=== PATIENT | female | born 1965 | race Hispanic/Latino ===

== ENCOUNTER 2018-03-22 18:39 | Emergency (ER) | payer OTHER ==
[2018-03-22 19:11] LABS: Absolute Monocytes 0.4 K/uL (0.1-1.3); Basophils % 1.1 % (0-1.3); Eosinophils % 3.3 % (0-4.4); Hematocrit 34.3 % (36.0-45.0); Lymphocytes % 35.6 % (15.3-44.8); MCH 21.7 pg (27.0-35.0); MCV 72.2 fL (80-100); MPV 8.4 fL (7.6-11.3); Monocytes % 7.5 % (3.3-12.3); RBC Red Blood Cell Count 4.75 M/uL (3.86-4.86)
[2018-03-22 19:21] LABS: BUN Blood Urea Nitrogen 13 mg/dL (7-18); Bicarbonate 27 mmol/L (21-32); Glucose Level 192 mg/dL (74-106); Potassium 3.7 mmol/L (3.5-5.1); Sodium Level 140 mmol/L (136-145)
[2018-03-22] MEDS ORDERED: ONDANSETRON 4 MG/2 ML VIAL ONE (19:23)
[2018-03-22] MEDS ORDERED: FENTANYL CITR 100 MCG/2 ML ONE (19:23)
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
[2018-03-22 20:46] VITALS: TEMP 98.8
[2018-03-22 20:48] VITALS: O2SAT 99
[2018-03-22 20:49] VITALS: BP 136/79
== END 2018-03-22 20:42 | disposition home or self-care (01) ==
LOC: ER 18:39
DX: S13.4XXA Sprain of ligaments of cervical spine, initial encounter (principal); V49.40XA Driver injured in collision with unspecified motor vehicles in traffic accident, initial encounter; F17.210 Nicotine dependence, cigarettes, uncomplicated; Z88.0 Allergy status to penicillin; I10 Essential (primary) hypertension
CPT/HCPCS: 36415; 70450; 71260; 72125; 74177; 80048; 85025; 86850; 86900; 86901; 96374; 96375; 99285; J2405; J3010; Q9967

== ENCOUNTER 2018-07-22 00:05 | Emergency (ER) | payer OTHER ==
--- NOTE | 2018-07-22 00:47 | ER ---
Nurse's Notes [facility] Name: Kmi Weldon Age: 53 yrs Sex: Female : 1965 Arrival Date: 07/22/2018 Time: 00:09 Bed 18 Private MD: Diagnosis: Asthma Presentation: 07/22 00:09 Presenting complaint: Patient states: SOB on/off for three days, BBS slightly coarse, tl3 mild wheezing to upper left lobe, upper airway congestion noted. Transition of care: patient was not received from another setting of care. Onset of symptoms was July 18, 2018. Risk Assessment: Do you want to hurt yourself or someone else? Patient reports no desire to harm self or others. Initial Sepsis Screen: Does the patient meet any 2 criteria? No. Patient's initial sepsis screen is negative. Does the patient have a suspected source of infection? No. Patient's initial sepsis screen is negative. Care prior to arrival: None. 00:09 Method Of Arrival: Ambulatory tl3 00:09 Acuity: ALFRED 3 tl3 Triage Assessment: 00:13 General: Appears uncomfortable, Behavior is anxious. Pain: Complains of pain in chest tl3 up into neck with breathing. 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 tl3 Historical: - Allergies: 00:13 PENICILLINS; tl3 - Home Meds: 00:13 Cymbalta 60 mg Oral cpDR 1 cap once daily [Active]; gabapentin 100 mg Oral cap 3 times tl3 per day [Active]; Jardiance 10 mg Oral tab 1 tab once daily [Active]; ProAir HFA 90 mcg/actuation inhalation HFAA 2 puffs every 4 hours [Active]; levothyroxine 25 mcg tab 1 tab once daily [Active]; metformin 1,000 mg oral tab [Active]; Seroquel 400 mg oral tab once daily [Active]; Victoza 2-Mulugeta 0.6 mg/0.1 mL (18 mg/3 mL) subcutaneous pnij 0.2 mL once daily [Active]; - PMHx: 00:13 Asthma; Bipolar disorder; CHF; Diabetes - IDDM; Fibromyalgia; Hypertension; tl3 Hypothyroidism; mitral valve prolapse; scoliosis; - PSHx: 00:13 ; tl3 - Immunization history:: Adult Immunizations up to date. - Social history:: Smoking status: Patient uses tobacco products, smokes one-half pack cigarettes per day. - Ebola Screening: : No symptoms or risks identified at this time. Screenin:22 Abuse screen: Denies threats or abuse. Denies injuries from another. Nutritional cc3 screening: No deficits noted. Tuberculosis screening: No symptoms or risk factors identified. Fall Risk Ambulatory Aid- None/Bed Rest/Nurse Assist (0 pts). Gait- Normal/Bed Rest/Wheelchair (0 pts) Mental Status- Oriented to own ability (0 pts). Assessment: 00:22 General: Appears in no apparent distress. comfortable, Behavior is calm, cooperative, cc3 appropriate for age. Pain: Complains of pain in chest and back pain. Neuro: Level of Consciousness is awake, alert, obeys commands, Oriented to person, place, time, situation, Appropriate for age. Cardiovascular: Reports chest pain, shortness of breath, back pain since yesterday Patient's skin is warm and dry. Respiratory: Reports shortness of breath since yesterday. GI: Abdomen is round non-distended. : No signs and/or symptoms were reported regarding the genitourinary system. EENT: No signs and/or symptoms were reported regarding the EENT system. Derm: No signs and/or symptoms reported regarding the dermatologic system. Musculoskeletal: Circulation, motion, and sensation intact. Range of motion: intact in all extremities. 01:30 Reassessment: Patient appears in no apparent distress at this time. Patient and/or cc3 family updated on plan of care and expected duration. Pain level reassessed. Patient is alert, oriented x 3, equal unlabored respirations, skin warm/dry/pink. 02:20 Reassessment: Patient appears in no apparent distress at this time. Patient and/or cc3 family updated on plan of care and expected duration. Pain level reassessed. Patient is alert, oriented x 3, equal unlabored respirations, skin warm/dry/pink. 03:24 Reassessment: Patient called after getting back from CT. Patient was hyperventilating ao and O2 was 84%. Patient was put on O2 NC at [address] protocol[address] Dr Gaspar was notified and was okay to give another breathing treatment. 04:12 Reassessment: Patient appears in no apparent distress at this time. Patient and/or cc3 family updated on plan of care and expected duration. Pain level reassessed. Patient is alert, oriented x 3, equal unlabored respirations, skin warm/dry/pink. 04:30 Reassessment: Patient appears in no apparent distress at this time. Patient and/or cc3 family updated on plan of care and expected duration. Pain level reassessed. Patient is alert, oriented x 3, equal unlabored respirations, skin warm/dry/pink. Dr. Gaspar discharged home the patient with prescription given. IV cannula removed and patient left ER vitally stable and ambulatory with her daughter. Vital Signs: 00:13 BP 164 / 125; Pulse 99; Resp 22; Temp 98.6; Pulse Ox 100% ; Weight 73.48 kg; Height 5 tl3 ft. 4 in. (162.56 cm); 01:30 BP 120 / 72; Pulse 89; Resp 21 S; Pulse Ox 95% on R/A; cc3 02:30 BP 124 / 97; Pulse 79; Resp 20 S; Pulse Ox 95% on R/A; cc3 03:30 BP 130 / 76; Pulse 85; Resp 25 S; Pulse Ox 91% on R/A; cc3 04:10 BP 131 / 77; Pulse 85; Resp 22 S; Pulse Ox 96% on 2 lpm NC; cc3 00:13 Body Mass Index 27.81 (73.48 kg, 162.56 cm) tl3 ED Course: 00:09 Patient arrived in ED. ag3 00:10 Triage completed. tl3 00:13 Arm band placed on right wrist. tl3 00:22 Karly Quinn is Primary Nurse. cc3 00:22 Patient has correct armband on for positive identification. Placed in gown. Bed in low cc3 position. Call light in reach. Side rails up X2. city administrator on. Pulse ox on. NIBP on. 00:37 Hunter Gaspar MD is Attending Physician. tw4 01:20 Inserted saline lock: 20 gauge in right antecubital area, using aseptic technique. cc3 Blood collected. 02:30 Notified ED physician of a critical lab result(s). d dimer 5358. fc 03:15 CT Chest For PE Angio In Process Unspecified. EDMS 03:53 CT completed. Pt tolerated procedure poorly. Patient moved to CT via wheelchair. cw1 Patient moved back from CT. 04:30 No provider procedures requiring assistance completed. IV discontinued, intact, cc3 bleeding controlled, No redness/swelling at site. Pressure dressing applied. Administered Medications: 02:05 Drug: Albuterol - atroVENT (3:1) (2.5 mg - 0.5 mg) 3 ml Route: Nebulizer; cc3 02:45 Follow up: Response: No adverse reaction; Marked relief of symptoms cc3 03:28 Drug: DuoNeb (3:1) (2.5 mg - 0.5 mg) 3 ml Route: Nebulizer; ao 04:10 Follow up: Response: No adverse reaction cc3 04:20 Drug: SOLU-Medrol 125 mg Route: IVP; Site: right antecubital; cc3 04:38 Follow up: Response: No adverse reaction cc3 Outcome: 00:46 Discharge ordered by MD. tw4 04:24 Discharge ordered by MD. tw4 04:30 Discharged to home ambulatory, with family. cc3 04:30 Condition: stable 04:30 Discharge instructions given to patient, Instructed on discharge instructions, follow up and referral plans. medication usage, Demonstrated understanding of instructions, follow-up care, medications, Prescriptions given X 3. 04:38 Patient left the ED. cc3 Signatures: Dispatcher [employer] EDMS Marine Becerril RN [place] cw1 Marino Gilbert, RN Hunter Rodarte MD MD tw4 Rhea Lehman RN RN tl3 Karly Quinn cc3 Nelly Mcclellan 3 Corrections: (The following items were deleted from the chart) 02:36 00:22 Pain: Denies pain. cc3 cc3 02:36 00:22 Cardiovascular: Denies chest pain, Patient's skin is warm and dry. cc3 cc3 02:36 00:22 Respiratory: Reports shortness of breath since today cc3 cc3 04:11 02:30 BP 124 / 97; Pulse 79bpm; Resp 20bpm; Spontaneous; Pulse Ox 98% RA; cc3 cc3 04:11 01:30 BP 120 / 72; Pulse 89bpm; Resp 21bpm; Spontaneous; Pulse Ox 97% RA; cc3 cc3
--- NOTE | 2018-07-22 00:47 | EDPHYS ---
Physician Documentation [facility] Name: Kim Weldon Age: 53 yrs Sex: Female : 1965 Arrival Date: 07/22/2018 Time: 00:09 Bed 18 Private MD: ED Physician Hunter Gaspar HPI: 07/22 04:23 This 53 yrs old Female presents to ER via Ambulatory with complaints of tw4 Respiratory Distress. 04:23 The patient has shortness of breath at rest. tw4 04:35 Onset: The symptoms/episode began/occurred just prior to arrival, today. Duration: The tw4 symptoms are continuous, and are unchanged since they started. The patient's shortness of breath has no apparent modifying factors. Associated signs and symptoms: The patient has no apparent associated signs or symptoms. Severity of symptoms: At their worst the symptoms were moderate in the emergency department the symptoms are unchanged. The patient has not experienced similar symptoms in the past. 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 tl3 Historical: - Allergies: 00:13 PENICILLINS; tl3 - Home Meds: 00:13 Cymbalta 60 mg Oral cpDR 1 cap once daily [Active]; gabapentin 100 mg Oral cap 3 times tl3 per day [Active]; Jardiance 10 mg Oral tab 1 tab once daily [Active]; ProAir HFA 90 mcg/actuation inhalation HFAA 2 puffs every 4 hours [Active]; levothyroxine 25 mcg tab 1 tab once daily [Active]; metformin 1,000 mg oral tab [Active]; Seroquel 400 mg oral tab once daily [Active]; Victoza 2-Mulugeta 0.6 mg/0.1 mL (18 mg/3 mL) subcutaneous pnij 0.2 mL once daily [Active]; - PMHx: 00:13 Asthma; Bipolar disorder; CHF; Diabetes - IDDM; Fibromyalgia; Hypertension; tl3 Hypothyroidism; mitral valve prolapse; scoliosis; - PSHx: 00:13 ; tl3 - Immunization history:: Adult Immunizations up to date. - Social history:: Smoking status: Patient uses tobacco products, smokes one-half pack cigarettes per day. - Ebola Screening: : No symptoms or risks identified at this time. ROS: 04:35 Constitutional: Negative for fever, chills, and weight loss, ENT: Negative for injury, tw4 pain, and discharge, Cardiovascular: Negative for chest pain, palpitations, and edema, Abdomen/GI: Negative for abdominal pain, nausea, vomiting, diarrhea, and constipation, Back: Negative for injury and pain, MS/Extremity: Negative for injury and deformity, Skin: Negative for injury, rash, and discoloration. 04:35 Respiratory: Positive for shortness of breath, wheezing, expiratory. Exam: 04:35 Constitutional: This is a well developed, well nourished patient who is awake, alert, tw4 and in no acute distress. Head/Face: Normocephalic, atraumatic. Chest/axilla: Normal chest wall appearance and motion. Nontender with no deformity. No lesions are appreciated. Cardiovascular: Regular rate and rhythm with a normal S1 and S2. No gallops, murmurs, or rubs. Normal PMI, no JVD. No pulse deficits. Abdomen/GI: Soft, non-tender, with normal bowel sounds. No distension or tympany. No guarding or rebound. No evidence of tenderness throughout. Back: No spinal tenderness. No costovertebral tenderness. Full range of motion. MS/ Extremity: Pulses equal, no cyanosis. Neurovascular intact. Full, normal range of motion. Neuro: Awake and alert, GCS 15, oriented to person, place, time, and situation. Cranial nerves II-XII grossly intact. Motor strength 5/5 in all extremities. Sensory grossly intact. Cerebellar exam normal. Normal gait. 04:35 Respiratory: the patient does not display signs of respiratory distress, Respirations: normal, Breath sounds: wheezing: that is mild, is scattered, is heard diffusely. Vital Signs: 00:13 BP 164 / 125; Pulse 99; Resp 22; Temp 98.6; Pulse Ox 100% ; Weight 73.48 kg; Height 5 tl3 ft. 4 in. (162.56 cm); 01:30 BP 120 / 72; Pulse 89; Resp 21 S; Pulse Ox 95% on R/A; cc3 02:30 BP 124 / 97; Pulse 79; Resp 20 S; Pulse Ox 95% on R/A; cc3 03:30 BP 130 / 76; Pulse 85; Resp 25 S; Pulse Ox 91% on R/A; cc3 04:10 BP 131 / 77; Pulse 85; Resp 22 S; Pulse Ox 96% on 2 lpm NC; cc3 00:13 Body Mass Index 27.81 (73.48 kg, 162.56 cm) tl3 MDM: 00:37 Patient medically screened. tw4 04:35 Differential diagnosis: Anemia Anxiety Reaction reactive airway disease. Data reviewed: vital signs, nurses notes. Data interpreted: cardiac monitor technician: rhythm is normal sinus rhythm, Pulse oximetry: Interpretation: normal. Test interpretation: by ED physician or midlevel provider: ECG, plain radiologic studies. Counseling: I had a detailed discussion with the patient and/or guardian regarding: the historical points, exam findings, and any diagnostic results supporting the discharge/admit diagnosis, lab results, radiology results. Medication response: albuterol nebulizer treatment(s) relieved the patient's symptoms. The patient is no longer wheezing. Response to treatment: the patient's symptoms have resolved after treatment, and as a result, I will discharge patient. Special discussion: I discussed with the patient/guardian in detail that at this point there is no indication for admission to the hospital. It is understood, however, that if the symptoms persist or worsen the patient needs to return immediately for re-evaluation. 07/22 01:39 Order name: Basic Metabolic Panel; Complete Time: 03:01 EDMS 07/22 03:03 Interpretation: Normal except: CL 109; GLUC 212; GFR 88; CA 8.3. 07/22 01:39 Order name: Liver (Hepatic) Function; Complete Time: 03:01 MS 07/22 03:03 Interpretation: Normal except: GLOB 4.1; A/G 0.9. 07/22 01:39 Order name: Creatine Phosphokinase; Complete Time: 03:01 MS 07/22 03:05 Interpretation: Within normal limits: CPK 41. 07/22 01:39 Order name: CKMB Creatine Kinase MB; Complete Time: 03:01 MS 07/22 03:05 Interpretation: Within normal limits: CKMB < 1.0. 07/22 01:39 Order name: Troponin (Emerg Dept Use Only); Complete Time: 03:01 MS 07/22 03:05 Interpretation: Within normal limits: TROPED < 0.02. 07/22 01:39 Order name: NT PRO-BNP; Complete Time: 03:01 MS 07/22 03:03 Interpretation: Normal except: NT PRO-BNP 326. tw4 07/22 01:39 Order name: Magnesium; Complete Time: 03:01 EDMS 07/22 03:04 Interpretation: Normal except: MG 1.7. tw4 07/22 01:39 Order name: Lipase; Complete Time: 03:01 EDMS 07/22 03:05 Interpretation: Within normal limits: LIP 206. 4 07/22 01:39 Order name: CBC with Automated Diff; Complete Time: 03:01 EDMS 07/22 03:04 Interpretation: Normal except: RBC 3.68; HGB 8.5; HCT 26.9; MCHC 31.6; MCH 23.1; MCV tw4 73.1; RDW 16.8. 07/22 01:39 Order name: Protime (+INR); Complete Time: 03:01 EDMS 07/22 03:05 Interpretation: Within normal limits: PT 11.2. 4 07/22 01:39 Order name: PTT, Activated Partial Thromb; Complete Time: 03:01 EDMS 07/22 03:04 Interpretation: Normal except: PTT 47.3. 4 07/22 01:39 Order name: D-Dimer; Complete Time: 03:01 EDMS 07/22 03:05 Interpretation: Normal except: D-DIMER 5358. tw4 07/22 01:39 Order name: Blood Culture EDAL 07/22 01:39 Order name: Blood Culture EDAL 07/22 02:31 Order name: CT Chest For PE Angio 07/22 03:01 Order name: Urine Dipstick--Ancillary (enter results) wi 07/22 03:01 Order name: Urine --Ancillary (enter results) wi 07/22 00:52 Order name: EKG; Complete Time: 01:44 4 07/22 00:52 Order name: Cardiac monitoring; Complete Time: 01:08 4 07/22 00:52 Order name: EKG - Nurse/Tech; Complete Time: 01:17 4 07/22 00:52 Order name: IV Saline Lock; Complete Time: 01:35 4 07/22 00:52 Order name: Labs collected and sent; Complete Time: 01:35 4 07/22 00:52 Order name: O2 Per Protocol; Complete Time: 01:09 4 07/22 00:52 Order name: O2 Sat Monitoring; Complete Time: 01:09 4 Administered Medications: 02:05 Drug: Albuterol - atroVENT (3:1) (2.5 mg - 0.5 mg) 3 ml Route: Nebulizer; cc3 02:45 Follow up: Response: No adverse reaction; Marked relief of symptoms cc3 03:28 Drug: DuoNeb (3:1) (2.5 mg - 0.5 mg) 3 ml Route: Nebulizer; ao 04:10 Follow up: Response: No adverse reaction cc3 04:20 Drug: SOLU-Medrol 125 mg Route: IVP; Site: right antecubital; cc3 04:38 Follow up: Response: No adverse reaction cc3 Disposition: 07/22/18 04:24 Discharged to Home. Impression: Asthma. - Condition is Stable. - Discharge Instructions: Asthma, Acute Bronchospasm, Form - Asthma Action Plan, Adult. - Prescriptions for Albuterol Sulfate 2.5 mg /3 mL (0.083 %) Inhalation Solution for Nebulization - inhale 1 unit by NEBULIZATION route every 8 hours As needed; 1 box. Medrol (Mulugeta) 4 mg Oral Tablets, Dose Pack - take 1 tablet by ORAL route as directed - follow package instructions; 1 packet. Albuterol Sulfate 90 mcg/actuation - inhale 1-2 puff by INHALATION route every 4-6 hours; 1 Inhaler. - Medication Reconciliation Form, Thank You Letter, Antibiotic Education, Prescription Opioid Use form. - Follow up: Private Physician; When: Upon discharge from the Emergency Department; Reason: If symptoms return, Further diagnostic work-up, Recheck today's complaints, Continuance of care. - Problem is new. - Symptoms have improved. Signatures: Dispatcher [employer] Marino Palacios RN Hunter Rodarte MD MD tw4 Rhea Lehman RN RN tl3 Karly Quinn cc3 Corrections: (The following items were deleted from the chart) 00:50 00:46 07/22/2018 00:46 Discharged to Home. Impression: Cellulitis of right lower limb. tw4 Condition is Stable. Forms are Medication Reconciliation Form, Thank You Letter, Antibiotic Education, Prescription Opioid Use. Follow up: Private Physician; When: Upon discharge from the Emergency Department; Reason: Further diagnostic work-up, Recheck today's complaints, Continuance of care. Problem is new. Symptoms have improved. tw4 02: 01:44 BASIC METABOLIC PANEL+C.LAB.BRZ ordered. [facility] EDAL 02: 01:44 CBC+H.LAB.BRZ ordered. EDAL EDMS 02:28 01:44 CKMB+C.LAB.BRZ ordered. EDAL EDMS 02: 01:44 CREATINE PHOSPHOKINASE+C.LAB.BRZ ordered. EDAL EDMS 02: 01:44 D-DIMER+COAG.LAB.BRZ ordered. [facility] EDMS 02:28 01:44 HEPATIC FUNCTION+C.LAB.BRZ ordered. EDAL EDAL 02: 01:44 LIPASE+C.LAB.BRZ ordered. EDAL EDAL 02: 01:44 MAGNESIUM+C.LAB.BRZ ordered. [facility] EDAL 02: 01:44 PROBNP+C.LAB.BRZ ordered. [facility] EDAL 02: 01:44 PROTIME (+INR)+COAG.LAB.BRZ ordered. [facility] EDAL 02:28 01:44 PTT, ACTIVATED+COAG.LAB.BRZ ordered. [facility] EDAL 02:28 01:44 TROPONIN (EMERG DEPT USE ONLY)+C.LAB.BRZ ordered. [facility] EDAL 02:29 01:44 BLOOD CULTURE*+BA.LAB.BRZ ordered. [facility] EDAL 04:38 04:24 07/22/2018 04:24 Discharged to Home. Impression: Asthma. Condition is Stable. cc3 Prescriptions for Clindamycin HCl 300 mg Oral Capsule - take 1 capsule by ORAL route every 6 hours for 10 days; 40 capsule, Ibuprofen 800 mg Oral Tablet - take 1 tablet by ORAL route every 8 hours As needed take with food; 30 tablet, Tramadol 50 mg Oral Tablet - take 1 tablet by ORAL route every 8 hours as needed; 12 tablet. and Forms are Medication Reconciliation Form, Thank You Letter, Antibiotic Education, Prescription Opioid Use. Follow up: Private Physician; When: Upon discharge from the Emergency Department; Reason: If symptoms return, Further diagnostic work-up, Recheck today's complaints, Continuance of care. Problem is new. Symptoms have improved. tw4
[2018-07-22 01:56] LABS: Absolute Lymphocytes (CBC) 2.1 K/uL (0.7-4.9); Absolute Monocytes 0.4 K/uL (0.1-1.3); Absolute Neutrophil 5.1 K/uL (1.8-8.0); Basophils % 0.9 % (0-1.3); Hematocrit 26.9 % (36.0-45.0); Lymphocytes % 27.3 % (15.3-44.8); MCH 23.1 pg (27.0-35.0); MCV 73.1 fL (80-100); RBC Red Blood Cell Count 3.68 M/uL (3.86-4.86)
[2018-07-22 01:58] LABS: Protime INR 0.95
[2018-07-22 02:06] LABS: ALT/SGPT 21 U/L (12-78); AST/SGOT 18 U/L (15-37); Albumin 3.6 g/dL (3.4-5.0); Alkaline Phosphatase 117 U/L (45-117); BUN Blood Urea Nitrogen 18 mg/dL (7-18); Bicarbonate 23 mmol/L (21-32); Bilirubin Direct 0.1 mg/dL (0-0.2); Bilirubin Total 0.2 mg/dL (0.2-1.0); CKMB Creatine Kinase MB < 1.0 ng/mL (0.3-3.6); Creatine Phosphokinase 41 U/L (26-192); Glucose Level 212 mg/dL (74-106); Lipase 206 U/L (73-393); Magnesium 1.7 mg/dL (1.8-2.4); NT PRO-BNP 326 pg/mL (<125); Potassium 3.7 mmol/L (3.5-5.1); Protein, Total 7.7 g/dL (6.4-8.2); Sodium Level 142 mmol/L (136-145); Troponin (Emerg Dept Use Only) < 0.02 ng/mL (0.0-0.045)
[2018-07-22] MEDS ORDERED: ALBUTEROL 2.5 MG/3 ML NEB SOL ONE ×2 (02:10→03:34)
[2018-07-22] MEDS ORDERED: IPRATROPIUM BROM 0.5MG/2.5ML ONE ×2 (02:11→03:34)
[2018-07-22 04:08] LABS: Urine Blood NEGATIVE (NEG); Urine Glucose 2+ (NEG); Urine Protein NEGATIVE (NEG); Urine Specific Gravity 1.015 (1.005-1.030)
[2018-07-22] MEDS ORDERED: METHYLPREDNISOLONE 125 MG INJ ONE (04:23)
[2018-07-22 04:43] VITALS: TEMP 98.6
[2018-07-22 04:46] VITALS: BP 130/76; O2SAT 91
--- NOTE | 2018-07-22 08:54 | RAD REPORT ---
EXAM DESCRIPTION: CT - Chest For Pe Angio - 07/22/2018 7:10 am CLINICAL HISTORY: Shortness of breath for 3 days COMPARISON: February 2018 TECHNIQUE: Dynamically enhanced axial 3 mm thick images of the chest were obtained during administra tion of <100> mL Isovue 370 IV contrast. Coronal and oblique reconstruction images were generated and reviewed. Exam utilizes a protocol for optimal evaluation of pulmonary arterial tree. Preliminary re port was generated by virtual radiologic and reviewed prior to dictation Maximum intensity projections 3D imaging was utilized All CT scans are performed using dose optimization technique as appropriate and may include automated exposure control or mA/KV adjustment according to patient size. FINDINGS: A pulmonary embolus is not seen. A thoracic aortic aneurysm is not noted. A pleural effusion is not seen. A pericardial effusion is not seen. A lung consolidation is not present. Mild ground-glass opacities with mild interlobular septal thicke ernestina IMPRESSION: Negative for a pulmonary embolism. Mild ground-glass opacities may indicate mild pulmonary edema or pneumonitis
--- NOTE | 2018-07-22 19:15 | EKG ---
Test Date: 2018-07-22 Test Time: 01:12:53 Hob Grinder: EMANUEL MEASUREMENT RESULTS: Intervals: Rate: 86 W[place]: 142 QRSD: 76 QT: 382 QTc: 457 [place]: P: 66 W[place]: 142 QRS: 71 T: 39 INTERPRETIVE STATEMENTS: Normal sinus rhythm Possible Left atrial enlargement Possible Anterior infarct, age undetermined Abnormal ECG Compared to ECG 10/25/2017 20:28:23 Myocardial infarct finding now present Left-axis deviation no longer present Electronically Signed On 07-22-18 19:14:43 CDT by Brian Elliott
== END 2018-07-22 04:38 | disposition home or self-care (01) ==
LOC: ER 00:05
DX: J45.909 Unspecified asthma, uncomplicated (principal); F17.210 Nicotine dependence, cigarettes, uncomplicated; I10 Essential (primary) hypertension; E11.9 Type 2 diabetes mellitus without complications; I50.9 Heart failure, unspecified; E03.9 Hypothyroidism, unspecified; Z88.0 Allergy status to penicillin
CPT/HCPCS: 36415; 71275; 80048; 80076; 81003; 81025; 82550; 82553; 83690; 83735; 83880; 84484; 85025; 85379; 85610; 85730; 87040; 93005; 94640; 96374; 99285; J2930; Q9967

== ENCOUNTER 2018-11-12 18:14 | Emergency (ER) | payer OTHER ==
[2018-11-12] MEDS ORDERED: MAGNE/ALUM HYDROXD 30 ML UCUP ONE (19:24)
[2018-11-12] MEDS ORDERED: LIDOCAINE VISCOUS 2% SOLN 15 ML UDC ONE (19:24)
[2018-11-12] MEDS ORDERED: LORAZEPAM 0.5 MG TABLET ONE (19:49)
--- NOTE | 2018-11-12 20:15 | RAD REPORT ---
EXAM DESCRIPTION: RAD - Chest Pa And Lat (2 Views) - 11/12/2018 7:55 pm CLINICAL HISTORY: CHEST PAIN Chest pain. COMPARISON: Chest Single View dated 10/25/2017; Chest Single View dated 12/01/2016; Chest Single View d ated 11/14/2016; Chest Pa And Lat (2 Views) dated 11/12/2016 FINDINGS: Linear opacities in the left lower lung most likely represent subsegmental atelectasis. Mi ld chronic reticular markings are present suggesting underlying COPD. The heart is mildly enlarged in size. No displaced fractures.
--- NOTE | 2018-11-12 20:22 | EDPHYS ---
Physician Documentation [facility] Name: Kim Weldon Age: 53 yrs Sex: Female : 1965 Arrival Date: 11/12/2018 Time: 18:17 Bed 20 Private MD: ED Physician Khanh Johnson HPI: 11/12 22:33 This 53 yrs old Female presents to ER via Wheelchair with complaints of Chest snw Pain, Flu Symptoms. 22:33 left a restaurant and began having severe nausea, bodyaches, chills. Onset: The snw symptoms/episode began/occurred suddenly, just prior to arrival. Severity of symptoms: At their worst the symptoms were moderate. The patient has not experienced similar symptoms in the past. It is unknown whether or not the patient has recently seen a physician. Historical: - Allergies: 18:25 PENICILLINS; aa5 - PMHx: 18:25 Asthma; Bipolar disorder; CHF; Diabetes - IDDM; Fibromyalgia; Hypertension; aa5 Hypothyroidism; mitral valve prolapse; scoliosis; - PSHx: 18:25 ; aa5 - Immunization history:: Adult Immunizations up to date. - Ebola Screening: : No symptoms or risks identified at this time. - Social history:: Smoking status: Patient/guardian denies using tobacco. ROS: 22:31 Eyes: Negative for injury, pain, redness, and discharge, ENT: Negative for injury, snw pain, and discharge, Neck: Negative for injury, pain, and swelling, Cardiovascular: Negative for chest pain, palpitations, and edema, Respiratory: Negative for shortness of breath, cough, wheezing, and pleuritic chest pain. 22:31 Back: Negative for injury and pain, : Negative for injury, bleeding, discharge, and swelling, MS/Extremity: Negative for injury and deformity, Skin: Negative for injury, rash, and discoloration, Neuro: Negative for headache, weakness, numbness, tingling, and seizure, Psych: Negative for depression, anxiety, suicide ideation, homicidal ideation, and hallucinations. 22:31 Constitutional: Positive for body aches, malaise. 22:31 Abdomen/GI: Positive for nausea. Exam: 22:28 Constitutional: This is a well developed, well nourished patient who is awake, alert, snw and in no acute distress. Head/Face: Normocephalic, atraumatic. Eyes: Pupils equal round and reactive to light, extra-ocular motions intact. Lids and lashes normal. Conjunctiva and sclera are non-icteric and not injected. Cornea within normal limits. Periorbital areas with no swelling, redness, or edema. ENT: Nares patent. No nasal discharge, no septal abnormalities noted. Tympanic membranes are normal and external auditory canals are clear. Oropharynx with no redness, swelling, or masses, exudates, or evidence of obstruction, uvula midline. Mucous membranes moist. Neck: Trachea midline, no thyromegaly or masses palpated, and no cervical lymphadenopathy. Supple, full range of motion without nuchal rigidity, or vertebral point tenderness. No Meningismus. Chest/axilla: Normal chest wall appearance and motion. Nontender with no deformity. No lesions are appreciated. Cardiovascular: Regular rate and rhythm with a normal S1 and S2. No gallops, murmurs, or rubs. Normal PMI, no JVD. No pulse deficits. Respiratory: Lungs have equal breath sounds bilaterally, clear to auscultation and percussion. No rales, rhonchi or wheezes noted. No increased work of breathing, no retractions or nasal flaring. Back: No spinal tenderness. No costovertebral tenderness. Full range of motion. Skin: Warm, dry with normal turgor. Normal color with no rashes, no lesions, and no evidence of cellulitis. Neuro: Awake and alert, GCS 15, oriented to person, place, time, and situation. Cranial nerves II-XII grossly intact. Motor strength 5/5 in all extremities. Sensory grossly intact. Cerebellar exam normal. Normal gait. Psych: Awake, alert, with orientation to person, place and time. Behavior, mood, and affect are within normal limits. 22:28 Abdomen/GI: Inspection: abdomen appears normal, Bowel sounds: normal, Palpation: mild abdominal tenderness, in all quadrants. 22:28 Musculoskeletal/extremity: Extremities: grossly normal except: pt states + pain in bilateral hands, joints. Vital Signs: 18:34 BP 143 / 76; Pulse 95; Resp 16; Temp 97.8; Pulse Ox 100% on R/A; Pain 10/10; hb 19:16 BP 140 / 61; Pulse 86; Resp 16; Pulse Ox 98% on R/A; jb4 20:30 BP 131 / 79; Pulse 93; Resp 16; Pulse Ox 93% on R/A; jb4 MDM: 18:29 Patient medically screened. snw 22:32 Data reviewed: vital signs, nurses notes. Data interpreted: Pulse oximetry: on room air snw is 93 %. Interpretation: acceptable. Counseling: I had a detailed discussion with the patient and/or guardian regarding: the historical points, exam findings, and any diagnostic results supporting the discharge/admit diagnosis, lab results, the need for outpatient follow up, to return to the emergency department if symptoms worsen or persist or if there are any questions or concerns that arise at home. Special discussion: Based on the history and exam findings, there is no indication for further emergent testing or inpatient evaluation. I discussed with the patient/guardian the need to see the primary care provider for further evaluation of the symptoms. 11/12 19:05 Order name: Flu; Complete Time: 20:10 snw 11/12 20:51 Order name: Urine Dipstick--Ancillary (enter results) oe 11/12 19:05 Order name: Chest Pa And Lat (2 Views) XRAY; Complete Time: 20:19 snw 11/12 19:05 Order name: EKG; Complete Time: 19:06 snw 11/12 19:05 Order name: EKG - Nurse/Tech; Complete Time: 19:35 snw Administered Medications: 19:16 Drug: GI Cocktail without - (Maalox Suspension 30 ml, Lidocaine Liquid 2 % 15 jb4 ml) Route: PO; 20:45 Follow up: Response: No adverse reaction; Pain is decreased jb4 19:40 Drug: Ativan 1 mg Route: PO; jb4 20:44 Follow up: Response: No adverse reaction; Pain is decreased jb4 20:44 Drug: predniSONE 20 mg Route: PO; jb4 20:53 Follow up: Response: No adverse reaction jb4 20:44 Drug: Pepcid 20 mg Route: PO; jb4 20:53 Follow up: Response: No adverse reaction jb4 Disposition: 11/13 07:15 Co-signature as Attending Physician, Khanh Johnson MD I agree with the assessment and ashley plan of care. Disposition: 11/12/18 20:20 Discharged to Home. Impression: Myalgia, Nausea. - Condition is Stable. - Discharge Instructions: Nonspecific Chest Pain, Musculoskeletal Pain, Muscle Pain, Adult, Nausea, Adult, Cryotherapy, Heat Therapy. - Prescriptions for orphenadrine citrate 100 mg Oral Tablet Sustained Release - take 1 tablet by ORAL route 2 times per day As needed; 20 tablet. - Medication Reconciliation Form, Thank You Letter, Antibiotic Education, Prescription Opioid Use form. - Follow up: Private Physician; When: 1 - 2 days; Reason: Recheck today's complaints, Continuance of care, Re-evaluation by your physician. Follow up: Emergency Department; When: As needed; Reason: Worsening of condition. Signatures: Dispatcher [employer] EDMS Khanh Johnson MD MD cha Therrien, Shelly, STORE ASSOCIATE-C STORE ASSOCIATE-Csnw Laila Schmidt, RN RN aa5 Maryuri Angel, RN RN Satinder Sifuentes RN RN jb4 Corrections: (The following items were deleted from the chart) 11/12 20:56 20:20 11/12/2018 20:20 Discharged to Home. Impression: Myalgia; Nausea. Condition is jb4 Stable. Forms are Medication Reconciliation Form, Thank You Letter, Antibiotic Education, Prescription Opioid Use. Follow up: Private Physician; When: 1 - 2 days; Reason: Recheck today's complaints, Continuance of care, Re-evaluation by your physician. Follow up: Emergency Department; When: As needed; Reason: Worsening of condition. snw
--- NOTE | 2018-11-12 20:22 | ER ---
Nurse's Notes [facility] Name: Kim Weldon Age: 53 yrs Sex: Female : 1965 Arrival Date: 11/12/2018 Time: 18:17 Bed 20 Private MD: Diagnosis: Myalgia;Nausea Presentation: 11/12 18:25 Presenting complaint: Patient states: "I went out to eat and after when I was getting aa5 into the car I started having chest pain, nauseated, my whole body started hurting, and I started feeling short of breath". Pt also reports slight cough. 18:25 Transition of care: patient was not received from another setting of care. Onset of aa5 symptoms was November 12, 2018. Care prior to arrival: None. 18:25 Method Of Arrival: Wheelchair aa5 18:25 Acuity: ALFRED 3 aa5 Historical: - Allergies: 18:25 PENICILLINS; aa5 - PMHx: 18:25 Asthma; Bipolar disorder; CHF; Diabetes - IDDM; Fibromyalgia; Hypertension; aa5 Hypothyroidism; mitral valve prolapse; scoliosis; - PSHx: 18:25 ; aa5 - Immunization history:: Adult Immunizations up to date. - Ebola Screening: : No symptoms or risks identified at this time. - Social history:: Smoking status: Patient/guardian denies using tobacco. Screenin:41 Abuse screen: Denies threats or abuse. Denies injuries from another. Nutritional hb screening: No deficits noted. Tuberculosis screening: No symptoms or risk factors identified. Fall Risk None identified. Assessment: 18:30 General: Appears in no apparent distress. Behavior is calm, cooperative. Pain: Pain hb does not radiate. Pain currently is 10 out of 10 on a pain scale. Neuro: Level of Consciousness is awake, alert, obeys commands, Oriented to person, place, time, situation. Cardiovascular: Heart tones S1 S2 present Capillary refill < 3 seconds Patient's skin is warm and dry. Respiratory: Airway is patent Respiratory effort is even, unlabored, Respiratory pattern is regular, symmetrical, Breath sounds are clear bilaterally. GI: No signs and/or symptoms were reported involving the gastrointestinal system. : No signs and/or symptoms were reported regarding the genitourinary system. EENT: No signs and/or symptoms were reported regarding the EENT system. Derm: Skin is intact, is healthy with good turgor. Musculoskeletal: No signs and/or symptoms reported regarding the musculoskeletal system. 19:30 Reassessment: Patient appears in no apparent distress at this time. Patient and/or jb4 family updated on plan of care and expected duration. Pain level reassessed. Patient is alert, oriented x 3, equal unlabored respirations, skin warm/dry/pink. 20:30 Reassessment: Patient appears in no apparent distress at this time. Patient and/or jb4 family updated on plan of care and expected duration. Pain level reassessed. Patient is alert, oriented x 3, equal unlabored respirations, skin warm/dry/pink. Vital Signs: 18:34 BP 143 / 76; Pulse 95; Resp 16; Temp 97.8; Pulse Ox 100% on R/A; Pain 10/10; hb 19:16 BP 140 / 61; Pulse 86; Resp 16; Pulse Ox 98% on R/A; jb4 20:30 BP 131 / 79; Pulse 93; Resp 16; Pulse Ox 93% on R/A; jb4 ED Course: 18:17 Patient arrived in ED. mr 18:25 Arm band placed on. aa5 18:27 Maryuri Angel, RN is Primary Nurse. hb 18:29 Ann Carter FNP-C is PHCP. snw 18:29 Khanh Johnson MD is Attending Physician. snw 18:30 Triage completed. aa5 18:41 Patient has correct armband on for positive identification. Bed in low position. Call hb light in reach. Side rails up X 1. 19:56 Chest Pa And Lat (2 Views) XRAY In Process Unspecified. EDMS 20:55 No provider procedures requiring assistance completed. Patient did not have IV access jb4 during this emergency room visit. Administered Medications: 19:16 Drug: GI Cocktail without - (Maalox Suspension 30 ml, Lidocaine Liquid 2 % 15 jb4 ml) Route: PO; 20:45 Follow up: Response: No adverse reaction; Pain is decreased jb4 19:40 Drug: Ativan 1 mg Route: PO; jb4 20:44 Follow up: Response: No adverse reaction; Pain is decreased jb4 20:44 Drug: predniSONE 20 mg Route: PO; jb4 20:53 Follow up: Response: No adverse reaction jb4 20:44 Drug: Pepcid 20 mg Route: PO; jb4 20:53 Follow up: Response: No adverse reaction jb4 Outcome: 20:20 Discharge ordered by . braxton 20:55 Discharged to home ambulatory. jb4 20:55 Condition: stable 20:55 Discharge instructions given to patient, Instructed on discharge instructions, follow up and referral plans. medication usage, Demonstrated understanding of instructions, follow-up care, medications, Prescriptions given X 1. 20:56 Patient left the ED. jb4 Signatures: Dispatcher [employer] EDMS Ann Carter, CENTRIFUGAL DRIER OPERATOR-C CENTRIFUGAL DRIER OPERATOR-Csnw CordellFernanda mr Schmidt, Laila, RN RN aa5 Maryuri Angel, RN RN Satinder Burch RN RN jb4
[2018-11-12] MEDS ORDERED: FAMOTIDINE 20 MG TAB ONE (20:46)
[2018-11-12] MEDS ORDERED: predniSONE 20 MG TAB ONE (20:46)
[2018-11-12 21:16] LABS: Urine Blood NEGATIVE (NEG); Urine Glucose 2+ (NEG); Urine Protein NEGATIVE (NEG); Urine pH 5.5 (5.0-7.0)
[2018-11-12 22:12] VITALS: TEMP 97.8
[2018-11-12 22:14] VITALS: BP 131/79; O2SAT 93
--- NOTE | 2018-11-13 08:48 | EKG ---
Test Date: 2018-11-12 Test Time: 19:12:59 Digester Capper: HB MEASUREMENT RESULTS: Intervals: Rate: 85 HI: 144 QRSD: 72 QT: 370 QTc: 440 Kechi: P: 68 HI: 144 QRS: 70 T: 42 INTERPRETIVE STATEMENTS: Normal sinus rhythm Normal ECG Compared to ECG 07/22/2018 01:12:53 Myocardial infarct finding no longer present Electronically Signed On 11-13-18 08:46:06 BANKRUPTCY ASSISTANT by Brian Elliott
== END 2018-11-12 20:56 | disposition home or self-care (01) ==
LOC: ER 18:14
DX: M79.10 Myalgia, unspecified site (principal); R11.0 Nausea; R07.9 Chest pain, unspecified; J45.909 Unspecified asthma, uncomplicated; F31.9 Bipolar disorder, unspecified; I11.0 Hypertensive heart disease with heart failure; I50.9 Heart failure, unspecified; E11.9 Type 2 diabetes mellitus without complications; M79.7 Fibromyalgia; Z79.4 Long term (current) use of insulin; Z88.0 Allergy status to penicillin
CPT/HCPCS: 71046; 81003; 87804; 93005; 99283; J7512

== ENCOUNTER 2018-12-10 05:22 | Emergency (ER) | payer OTHER ==
--- OUTSIDE RECORDS SUMMARY | 2018-12-10 05:35 | XMS REPORT ---
:1965 [facility] Address [address] [place] [address] Care Team Providers Name Role Phone Unavailable Unavailable Unavailable Payers Payer Name Policy Type Policy Number Effective Date Expiration Date Problems This patient has no known problems. Allergies, Adverse Reactions, Alerts Allergy Name Allergy Status Severity Reaction(s) Onset Inactive Treating Comments Type Date Date Clinician Penicillins DA Active [place] 2014-04 00:00:0 0 Medications This patient has no known medications. Results Test Description Test Time Test Comments Text Results Atomic Results Result Comments GLUCOSE BEDSIDE TESTING 2018-12-06 06:50:00 Test Item Value Reference Range Comments GLUCOSE BEDSIDE TESTING (test code=GLUBED) 167 mg/dL 70-110 UR HCG [id number] 16:27:00 Test Item Value Reference Range Comments UR HCG QUAL (test code=HCGQLU) NEGATIVE NEGATIVE
--- NOTE | 2018-12-10 06:29 | ER ---
Nurse's Notes [facility] Name: Kim Weldon Age: 53 yrs Sex: Female : 1965 Arrival Date: 12/10/2018 Time: 05:24 Bed Waiting Private MD: Diagnosis: Presentation: 12/10 05:35 Presenting complaint: Registration called pt to find out where she was and she stated fc that she was just going to see her PCP this am. ED Course: 05:24 Patient arrived in ED. ds1 05:30 Patient's name was called from ER lobby. No response. fc Administered Medications: No medications were administered Outcome: 06:28 Patient left the ED. fc Signatures: Marine Becerril RN RN Chrissie Yanes ds1
== END 2018-12-10 06:28 | disposition left against medical advice (07) ==
LOC: ER 05:22
DX: Z53.21 Procedure and treatment not carried out due to patient leaving prior to being seen by health care provider (principal)
CPT/HCPCS: 99281

== ENCOUNTER 2018-12-21 17:26 | Observation (INO) | payer OTHER ==
--- OUTSIDE RECORDS SUMMARY | 2018-12-21 17:28 | XMS REPORT ---
:1965 [facility] Address [address] [place] [address] Care Team Providers Name Role Phone Unavailable Unavailable Unavailable Payers Payer Name Policy Type Policy Number Effective Date Expiration Date Problems This patient has no known problems. Allergies, Adverse Reactions, Alerts Allergy Name Allergy Status Severity Reaction(s) Onset Inactive Treating Comments Type Date Date Clinician Penicillins DA Active [place] 2014-04 00:00:0 0 Medications This patient has no known medications. Results Test Description Test Time Test Comments Text Results Atomic Results Result Comments GLUCOSE BEDSIDE TESTING 2018-12-06 06:50:00 Test Item Value Reference Range Comments GLUCOSE BEDSIDE TESTING (test code=GLUBED) 167 mg/dL 70-110 UR HCG [id number] 16:27:00 Test Item Value Reference Range Comments UR HCG QUAL (test code=HCGQLU) NEGATIVE NEGATIVE
[2018-12-21 18:53] LABS: Absolute Lymphocytes (CBC) 1.6 K/uL (0.7-4.9); Absolute Monocytes 0.3 K/uL (0.1-1.3); Absolute Neutrophil 3.4 K/uL (1.8-8.0); Basophils % 1.1 % (0-1.3); Eosinophils % 1.7 % (0-4.4); Lymphocytes % 29.1 % (15.3-44.8); MPV 7.3 fL (7.6-11.3); Monocytes % 5.3 % (3.3-12.3); RBC Red Blood Cell Count 3.74 M/uL (3.86-4.86)
--- NOTE | 2018-12-21 19:27 | ER ---
Nurse's Notes [facility] Name: Kim Weldon Age: 53 yrs Sex: Female : 1965 Arrival Date: 12/21/2018 Time: 17:28 Bed 7 Private MD: Diagnosis: Pneumonia, unspecified organism-bilateral, failed outpatient treatment Presentation: 12/21 17:38 Presenting complaint: Patient states: I had an outpatient chest xray done and my doctor sg called and said that I have a pneumonia on my xray, I have had a cough and shortness of breath while walking. Transition of care: patient was not received from another setting of care. Onset of symptoms was December 21, 2018. Risk Assessment: Do you want to hurt yourself or someone else? Patient reports no desire to harm self or others. Initial Sepsis Screen: Does the patient meet any 2 criteria? No. Patient's initial sepsis screen is negative. Does the patient have a suspected source of infection? No. Patient's initial sepsis screen is negative. Care prior to arrival: None. 17:38 Method Of Arrival: Ambulatory sg 17:38 Acuity: ALFRED 3 sg Triage Assessment: 17:40 General: Appears in no apparent distress. comfortable, Behavior is cooperative, bp appropriate for age, anxious. Pain: Denies pain. SIGN BUILDER: 17:39 LMP N/A - Post-menopause bp Historical: - Allergies: 17:40 PENICILLINS; sg - PMHx: 17:40 Asthma; Bipolar disorder; CHF; Diabetes - IDDM; Fibromyalgia; Hypertension; sg Hypothyroidism; mitral valve prolapse; scoliosis; - Immunization history:: Adult Immunizations up to date, Pneumococcal vaccine is up to date, Flu vaccine is up to date. - Social history:: Smoking status: Patient/guardian denies using tobacco. - Ebola Screening: : Patient negative for fever greater than or equal to 101.5 degrees Fahrenheit, and additional compatible Ebola Virus Disease symptoms Patient denies exposure to infectious person Patient denies travel to an Ebola-affected area in the 21 days before illness onset No symptoms or risks identified at this time. Screenin:47 Abuse screen: Denies threats or abuse. Denies injuries from another. Nutritional bp screening: No deficits noted. Tuberculosis screening: No symptoms or risk factors identified. Fall Risk None identified. Assessment: 17:30 Reassessment: pt appears short of breath with labored breathing upon entering exam sg room, pt states it improves when she sits still. 17:45 General: Appears in no apparent distress. comfortable, Behavior is cooperative, bp appropriate for age, anxious. Pain: Denies pain. Neuro: Level of Consciousness is awake, alert, obeys commands, Oriented to person, place, time, situation, Appropriate for age. Cardiovascular: No deficits noted. Respiratory: Airway is patent Respiratory effort is even, unlabored, Respiratory pattern is regular, symmetrical. Respiratory: Reports shortness of breath. GI: No signs and/or symptoms were reported involving the gastrointestinal system. : No signs and/or symptoms were reported regarding the genitourinary system. EENT: No deficits noted. Derm: No deficits noted. Musculoskeletal: Circulation, motion, and sensation intact. Range of motion: intact in all extremities. 19:07 General: Appears in no apparent distress. comfortable, Behavior is calm, cooperative, aj1 appropriate for age. Pain: Denies pain. Neuro: Level of Consciousness is awake, alert, obeys commands, Oriented to person, place, time, situation. Cardiovascular: Patient's skin is warm and dry. Respiratory: Airway is patent Respiratory effort is even, unlabored, Respiratory pattern is regular, symmetrical. GI: No signs and/or symptoms were reported involving the gastrointestinal system. : No signs and/or symptoms were reported regarding the genitourinary system. Derm: No deficits noted. Musculoskeletal: Circulation, motion, and sensation intact. 20:03 Reassessment: Patient and/or family updated on plan of care and expected duration. Pain ea level reassessed. Patient is alert, oriented x 3, equal unlabored respirations, skin warm/dry/pink. Patient denies pain at this time. 21:15 Reassessment: Patient and/or family updated on plan of care and expected duration. Pain ea level reassessed. Patient is alert, oriented x 3, equal unlabored respirations, skin warm/dry/pink. 21:23 Reassessment: Patient and/or family updated on plan of care and expected duration. Pain ea level reassessed. Report called to Ghada QUINTANA on second floor. Vital Signs: 17:39 BP 132 / 74; Pulse 94; Resp 21 S; Temp 98.3; Pulse Ox 98% on R/A; Weight 74.84 kg; bp Height 5 ft. 4 in. (162.56 cm); 19:08 BP 116 / 70; Pulse 90; Resp 19; Pulse Ox 99% on R/A; aj1 19:13 BP 135 / 79; Pulse 79; Resp 18; Pulse Ox 100% ; aj1 19:20 Temp 98; rr5 20:03 BP 138 / 95; Pulse 85; Resp 19; Pulse Ox 99% on R/A; ea 21:16 BP 101 / 83; Pulse 90; Resp 19; Pulse Ox 98% on R/A; ea 17:39 Body Mass Index 28.32 (74.84 kg, 162.56 cm) bp ED Course: 17:28 Patient arrived in ED. mr 17:34 Reinier Sheth, RN is Primary Nurse. bp 17:39 Triage completed. sg 17:39 Arm band placed on. sg 17:55 EKG done, by senior laboratory technician. reviewed by Mango Reynoso MD. sm3 17:56 Nithya Christina, [facility]. kb 17:56 Mango Reynoso MD is Attending Physician. kb 18:25 First set of blood cultures drawn by me. jb1 18:40 Second set of blood cultures drawn by me. jb1 18:44 Initial lab(s) drawn, by me, sent to lab. Inserted saline lock: 22 gauge in left jb1 antecubital area, using aseptic technique. Blood collected. 18:47 Patient has correct armband on for positive identification. Bed in low position. Call bp light in reach. Side rails up X2. 18:52 Chest Pa And Lat (2 Views) XRAY In Process Unspecified. EDMS 19:26 Cheko Tejada MD is Hospitalizing Provider. kb 21:16 No provider procedures requiring assistance completed. Patient admitted, IV remains in ea place. Administered Medications: 19:26 Drug: NS 0.9% (30 ml/kg) 30 ml/kg Route: IV; Rate: bolus; Site: left antecubital; ea 21:27 Follow up: Response: No adverse reaction; IV Status: Infusion continued upon admission; ea IV Intake: 650ml 19:27 Drug: LevaQUIN 750 mg Volume: 150 ml; Route: IVPB; Infused Over: 90 mins; Site: left ea antecubital; 20:40 Follow up: Response: No adverse reaction; IV Status: Completed infusion; IV Intake: ea 150ml Intake: 20:40 IV: 150ml; Total: 150ml. ea 21:27 IV: 650ml; Total: 800ml. ea Outcome: 19:27 Decision to Hospitalize by Provider. kb 19:40 Instructed on the need for admit. ea 21:23 Admitted to Med/surg accompanied by tech, room 212, with chart, Report called to maliha Urrutia RN on second floor 21:23 Condition: stable 21:31 Patient left the ED. ea Signatures: Dispatcher [employer] EDMS Blake Stroud jb1 Nithya Christina, WATER MANGLE TENDER-C WATER MANGLE TENDER-Ckb Monse Mercedes, RN RN aj1 Raul Bhatia RN RN sg Fernanda Landa mr PriceYudi cardoso RN RN Reinier Connors, RN RN Libby Nance 3 Tristin Richards, RN RN rr5 Corrections: (The following items were deleted from the chart) 17:51 17:39 BP 132 / 74; Pulse 94bpm; Resp 21bpm; Spontaneous; Pulse Ox 98% RA; sg bp
--- NOTE | 2018-12-21 19:27 | EDPHYS ---
Physician Documentation [facility] Name: Kim Weldon Age: 53 yrs Sex: Female : 1965 Arrival Date: 12/21/2018 Time: 17:28 Bed 7 Private MD: ED Physician Mango Reynoso HPI: 12/21 18:33 This 53 yrs old Female presents to ER via Ambulatory with complaints of kb Abnormal Lab Results. 18:33 The patient or guardian reports cough, that is intermittent, described as moderate, kb with no sputum, difficulty breathing, flu symptoms, low-grade fever. Onset: The symptoms/episode began/occurred 3 week(s) ago. Severity of symptoms: At their worst the symptoms were moderate, in the emergency department the symptoms are unchanged. Modifying factors: The symptoms are alleviated by nothing, the symptoms are aggravated by nothing. Associated signs and symptoms: Pertinent positives: fever, Pertinent negatives: chest pain, diarrhea, ear ache, nausea, rhinorrhea, sore throat, vomiting. The patient has experienced similar episodes in the past. The patient has been recently seen by a physician: the patient's primary care provider, with similar presenting complaints, and apparently given a diagnosis of bronchitis, lab tests were done, X-rays were performed. 18:34 Pt reports she started having cough, fever and shortness of breath 3 weeks ago. Thought kb it was an asthma exacerbation, went to PCP and diagnosed with bronchitis. Given z-pack at that time and completed it, but symptoms persisted. Went back and was prescribed Cipro on 12/14. Has been taking that 2 times per day. Had chest x-ray done on 12/19/18 and got a call from PCP today telling her to come to the ER to be treated for pneumonia. . 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 - Social history:: Smoking status: Patient/guardian denies using tobacco. - Ebola Screening: : Patient negative for fever greater than or equal to 101.5 degrees Fahrenheit, and additional compatible Ebola Virus Disease symptoms Patient denies exposure to infectious person Patient denies travel to an Ebola-affected area in the 21 days before illness onset No symptoms or risks identified at this time. ROS: 18:34 Neck: Negative for injury, pain, and swelling, Cardiovascular: Negative for chest pain, kb palpitations, and edema, Abdomen/GI: Negative for abdominal pain, nausea, vomiting, diarrhea, and constipation, Back: Negative for injury and pain, MS/Extremity: Negative for injury and deformity, Skin: Negative for injury, rash, and discoloration, Neuro: Negative for headache, weakness, numbness, tingling, and seizure. 18:34 Constitutional: Positive for fever. 18:34 Respiratory: Positive for cough, dyspnea on exertion, shortness of breath. Exam: 18:34 Constitutional: This is a well developed, well nourished patient who is awake, alert, kb and in no acute distress. Head/Face: Normocephalic, atraumatic. ENT: Nares patent. No nasal discharge, no septal abnormalities noted. Tympanic membranes are normal and external auditory canals are clear. Oropharynx with no redness, swelling, or masses, exudates, or evidence of obstruction, uvula midline. Mucous membranes moist. Neck: Trachea midline, no thyromegaly or masses palpated, and no cervical lymphadenopathy. Supple, full range of motion without nuchal rigidity, or vertebral point tenderness. No Meningismus. Chest/axilla: Normal chest wall appearance and motion. Nontender with no deformity. No lesions are appreciated. Cardiovascular: Regular rate and rhythm with a normal S1 and S2. No gallops, murmurs, or rubs. Normal PMI, no JVD. No pulse deficits. Respiratory: Lungs have equal breath sounds bilaterally, clear to auscultation and percussion. No rales, rhonchi or wheezes noted. No increased work of breathing, no retractions or nasal flaring. Mild resp distress after ambulating Abdomen/GI: Soft, non-tender, with normal bowel sounds. No distension or tympany. No guarding or rebound. No evidence of tenderness throughout. Skin: Warm, dry with normal turgor. Normal color with no rashes, no lesions, and no evidence of cellulitis. MS/ Extremity: Pulses equal, no cyanosis. Neurovascular intact. Full, normal range of motion. Neuro: Awake and alert, GCS 15, oriented to person, place, time, and situation. Cranial nerves II-XII grossly intact. Motor strength 5/5 in all extremities. Sensory grossly intact. Cerebellar exam normal. Normal gait. Vital Signs: 17:39 BP 132 / 74; Pulse 94; Resp 21 S; Temp 98.3; Pulse Ox 98% on R/A; Weight 74.84 kg; bp Height 5 ft. 4 in. (162.56 cm); 19:08 BP 116 / 70; Pulse 90; Resp 19; Pulse Ox 99% on R/A; aj1 19:13 BP 135 / 79; Pulse 79; Resp 18; Pulse Ox 100% ; aj1 19:20 Temp 98; rr5 20:03 BP 138 / 95; Pulse 85; Resp 19; Pulse Ox 99% on R/A; ea 21:16 BP 101 / 83; Pulse 90; Resp 19; Pulse Ox 98% on R/A; ea 17:39 Body Mass Index 28.32 (74.84 kg, 162.56 cm) bp MDM: 17:56 Patient medically screened. kb 18:36 Data reviewed: vital signs, nurses notes. Data interpreted: Pulse oximetry: on room air kb is 98 %. Interpretation: normal. 19:25 Counseling: I had a detailed discussion with the patient and/or guardian regarding: the kb historical points, exam findings, and any diagnostic results supporting the discharge/admit diagnosis, lab results, radiology results, the need for further work-up and treatment in the hospital. Physician consultation: Cheko Tejada MD was contacted at 19:25, regarding admission, to the medical/surgical unit. patient's condition, and will see patient in ED, shortly. ED course: Pt will be admitted due to failed outpatient treatment, bilateral pneumonia and elevated lactate. . 12/21 18:04 Order name: CBC with Diff; Complete Time: 18:55 kb 12/21 18:04 Order name: Basic Metabolic Panel; Complete Time: 19:08 kb 12/21 18:04 Order name: Blood Culture Adult (2) kb 12/21 18:04 Order name: Lactate; Complete Time: 19:14 kb 12/21 18:04 Order name: Procalcitonin; Complete Time: 19:27 kb 12/21 21:10 Order name: CBC with Automated Diff EDMS 12/21 21:10 Order name: CBC with Automated Diff EDKS 12/21 21:10 Order name: Comprehensive Metabolic Panel EDKS 12/21 21:10 Order name: Comprehensive Metabolic Panel EDKS 12/21 21:10 Order name: Lipid Profile EDKS 12/21 21:10 Order name: Lipid Profile EDKS 12/21 21:10 Order name: Magnesium EDMS 12/21 21:10 Order name: Magnesium EDKS 12/21 21:10 Order name: Phosphorus EDKS 12/21 17:55 Order name: EKG - Nurse/Tech; Complete Time: 17:55 bp 12/21 17:55 Order name: Chest Pa And Lat (2 Views) XRAY; Complete Time: 20:22 bp 12/21 17:59 Order name: EKG Electrocardiogram; Complete Time: 18:05 EDMS 12/21 18:04 Order name: IV Start; Complete Time: 18:43 kb 12/21 21:10 Order name: Heart Healthy EDKS 12/21 21:10 Order name: Phosphorus EDKS Administered Medications: 19:26 Drug: NS 0.9% (30 ml/kg) 30 ml/kg Route: IV; Rate: bolus; Site: left antecubital; ea 21:27 Follow up: Response: No adverse reaction; IV Status: Infusion continued upon admission; ea IV Intake: 650ml 19:27 Drug: LevaQUIN 750 mg Volume: 150 ml; Route: IVPB; Infused Over: 90 mins; Site: left ea antecubital; 20:40 Follow up: Response: No adverse reaction; IV Status: Completed infusion; IV Intake: ea 150ml Disposition: 12/22 07:01 Co-signature as Attending Physician, Mango Reynoso MD. rn Disposition: 12/21/18 19:27 Hospitalization ordered by Cheko Tejada for Inpatient Admission. Preliminary diagnosis is Pneumonia, unspecified organism - bilateral, failed outpatient treatment. - Bed requested for Telemetry/MedSurg (Inpatient). - Status is Inpatient Admission. ea - Condition is Stable. - Problem is new. - Symptoms are unchanged. UTI on Admission? No Signatures: Dispatcher [employer] EDKS Nithya Christina, Palmira Larios RN RN mw Gay, Steven RN Mango Pandya MD MD rn Antunez, Elena, RN RN ea Meryl, Reinier, RN RN bp Corrections: (The following items were deleted from the chart) 12/21 21:13 19:27 Hospitalization Ordered by Cheko Tejada MD for Inpatient Admission. Preliminary mw diagnosis is Pneumonia, unspecified organism - bilateral, failed outpatient treatment. Bed requested for Telemetry/MedSurg (Inpatient). Status is Inpatient Admission. Condition is Stable. Problem is new. Symptoms are unchanged. UTI on Admission? No. kb 21:31 21:13 12/21/2018 19:27 Hospitalization Ordered by Cheko Tejada MD for Inpatient ea Admission. Preliminary diagnosis is Pneumonia, unspecified organism - bilateral, failed outpatient treatment. Bed requested for Telemetry/MedSurg (Inpatient). Status is Inpatient Admission. Condition is Stable. Problem is new. Symptoms are unchanged. UTI on Admission? No. mw
[2018-12-21] MEDS ORDERED: Levofloxacin 750mg IV 750 MG/150 ML BAG IV ONE (19:30)
[2018-12-21] MEDS ORDERED: NA CHLORIDE 0.9% 2,000 ML ONE (19:31)
--- NOTE | 2018-12-21 20:20 | RAD REPORT ---
EXAM DESCRIPTION: RAD - Chest Pa And Lat (2 Views) - 12/21/2018 6:53 pm CLINICAL HISTORY: Cough and congestion COMPARISON: December 19, 2018, November 2016 TECHNIQUE: PA and lateral views of the chest were obtained. FINDINGS: The lungs are normal volume. No focal consolidation. Patient has extensive interstitial elli ng disease most pronounced in each lung base. Pattern is not substantially different from December 19 im aging. Findings are much more pronounced than the 2017 comparison. Heart size is normal and central vasculature is within normal limits. No pleural effusion or pneumothorax seen. No acute bony findi ng noted. No aortic abnormality. IMPRESSION: Extensive lower lung field interstitial lung disease not substantially different from [facility] 27. Findings are significantly more pronounced than a more baseline 2017 study. Interstitial pneumonia/pn eumonitis primary consideration.
[2018-12-21] MEDS ORDERED: ONDANSETRON 4 MG/2 ML VIAL IV PRN (21:05)
[2018-12-21] MEDS ORDERED: ACETAMINOPHEN 500 MG TAB PO PRN (21:05)
[2018-12-21] MEDS ORDERED: NA CHLORIDE 0.9% 1,000 ML IV SCH (22:00)
[2018-12-21] MEDS: AZITHROMYCIN IV 500 MG in NA CHLORIDE 0.9% 250 ML IVPB SCH (22:00)
[2018-12-21] MEDS ORDERED: CEFTRIAXONE 1 GM/NS 50 ML 1 GM/50 ML BAG IV SCH (23:00)
[2018-12-21] MEDS ORDERED: CEFTRIAXONE 1000 MG/VIAL IVP ONE (23:00)
[2018-12-21] MEDS ORDERED: AZITHROMYCIN 500 MG INJ IVPB ONE (23:32)
[2018-12-21] MEDS ORDERED: HYDROCODONE/APAP 5/325 MG TAB PO ONE (23:38)
[2018-12-21] MEDS ORDERED: NA CHLORIDE 0.9% 250 ML ONE (23:45)
[2018-12-21] MEDS ORDERED: CEFTRIAXONE/SWI 1gm 1 GM/10 ML SYR ONE (23:45)
[2018-12-21] MEDS ORDERED: GLUCAGON 1 MG/VIAL IM PRN (23:48)
[2018-12-21] MEDS ORDERED: D50W 25 GM/50 ML SYRINGE IV PRN (23:48)
[2018-12-22] MEDS: QUETIAPINE 100MG TAB PO SCH ×2 (00:19→21:32)
[2018-12-22] MEDS: INSULIN -REGULAR HUMAN 50 UNIT/0.5 ML ML SQ SCH ×5 (00:20→21:32)
[2018-12-22] MEDS: ENOXAPARIN 40 MG/0.4 ML SQ SCH ×2 (00:20→08:07)
[2018-12-22] MEDS: ALBUTEROL 2.5 MG/3 ML NEB SOL NEB SCH ×4 (02:00→20:00)
[2018-12-22] MEDS: IPRATROPIUM BROM 0.5MG/2.5ML NEB SCH ×4 (02:00→20:00)
[2018-12-22] MEDS ORDERED: TEMAZEPAM 15 MG CAP PO ONE (03:13)
[2018-12-22] MEDS: LEVOTHYROXINE SOD 0.075 MG TAB PO SCH (04:55)
[2018-12-22] MEDS: LEVOTHYROXINE SOD 0.1 MG TAB PO SCH (04:56)
[2018-12-22 05:57] LABS: Absolute Monocytes 0.3 K/uL (0.1-1.3); Absolute Neutrophil 3.5 K/uL (1.8-8.0); Basophils % 1.2 % (0-1.3); Eosinophils % 1.3 % (0-4.4); Hematocrit 23.1 % (36.0-45.0); Lymphocytes % 33.8 % (15.3-44.8); MPV 7.5 fL (7.6-11.3); Monocytes % 5.3 % (3.3-12.3); RBC Red Blood Cell Count 3.17 M/uL (3.86-4.86)
[2018-12-22 06:07] LABS: ALT/SGPT 16 U/L (12-78); AST/SGOT 10 U/L (15-37); Albumin 3.1 g/dL (3.4-5.0); Alkaline Phosphatase 116 U/L (45-117); BUN Blood Urea Nitrogen 17 mg/dL (7-18); Bicarbonate 26 mmol/L (21-32); Bilirubin Total 0.2 mg/dL (0.2-1.0); Glucose Level 201 mg/dL (74-106); HDL Cholesterol 29 mg/dL (40-60); LDL Cholesterol, Calculated 88 (<130); Magnesium 1.9 mg/dL (1.8-2.4); Phosphorus 3.1 mg/dL (2.5-4.9); Potassium 3.7 mmol/L (3.5-5.1); Protein, Total 7.1 g/dL (6.4-8.2); Sodium Level 140 mmol/L (136-145)
--- NOTE | 2018-12-22 06:44 | P.HP ---
Certification for Inpatient Patient admitted to: Inpatient With expected LOS: >2 Midnights Patient will require the following post-hospital care: None Practitioner: I am a practitioner with admitting privileges, knowledge of patient current condition, hospital course, and medical plan of care. Services: Services provided to patient in accordance with Admission requirements found in Title 42 Section 412.3 of the Code of Federal Regulations Patient History Date of Service: 12/21/18 Reason for admission: Pneumonia; bilateral lower lobe interstitial infiltrates History of Present Illness: Patient is a 53-year-old female came to the hospital with complaints of shortness of breath. Patient was recently diagnosed with bronchitis. She was started on the Z-Mulugeta and prednisone. However, at home she continued to progressively get worse. She came into the ER for further evaluation. In the emergency room her chest x-ray revealed bilateral lower lobe interstitial infiltrates. She has similar findings in 2017 however there much more progressive. Clinically, she appears to be doing well after some breathing treatments and steroids in the emergency room. She will be admitted to the hospital for further treatment and will get pulmonary consultation if her symptoms do not improve. She will probably need to get a repeat chest x-ray in 2-4 weeks to make sure the interstitial infiltrates have resolved. If they are persistent then she may need a bronchoscopy. Allergies Penicillins Allergy (Severe, Verified 12/22/18 02:46) Rash Home Medications: Duloxetine HCl 60 mg PO DAILY 05/03/16 Gabapentin 300 mg PO BID 05/03/16 Levothyroxine Sodium 175 mcg PO DAILY 05/03/16 Carbamazepine [Tegretol Xr] 200 mg PO BID 07/21/16 Dexlansoprazole [Dexilant] 60 mg PO DAILY 11/09/16 Loratadine 10 mg PO DAILY 11/12/16 Albuterol Sulfate [Proair Hfa] 1 inh IH BID 12/21/18 Empagliflozin [Jardiance] 10 mg PO DAILY 12/21/18 Ibuprofen [Motrin*] 1,000 mg PO BIDP PRN 12/21/18 Metformin HCl 1,000 mg PO BID 12/21/18 Quetiapine Fumarate [Seroquel] 300 mg PO BEDTIME 12/21/18 - Past Medical/Surgical History Has patient received pneumonia vaccine in the past: Yes Diabetic: Yes -: HTN -: Bi-polar -: DM -: Hypothyroidism -: CHF -: Mitral valve prolapse -: Mitral valve prolapse -: x 2 - Family History Mother Medical History: Heart disease, Diabetes Father Medical History: Cancer Sister Medical History: Cancer - Social History Smoking Status: Current every day smoker Alcohol use: No CD- Drugs: No Place of Residence: Home Review of Systems 10-point ROS is otherwise unremarkable Physical Examination - Vital Signs Temperature: 97.2 F Blood Pressure: 106/55 Pulse: 93 Respirations: 20 Pulse Ox (%): 98 - Physical Exam General: Alert, In no apparent distress, Oriented x3 HEENT: Atraumatic, PERRLA, Mucous membr. moist/pink, EOMI, Sclerae nonicteric Neck: Supple, 2+ carotid pulse no bruit, No LAD, Without JVD or thyroid abnormality Respiratory: Crackles/rales, Expiratory wheezes, Other (Course breath sounds) Cardiovascular: Regular rate/rhythm, Normal S1 S2, No murmurs Gastrointestinal: Normal bowel sounds, Soft and benign, Non-distended, No tenderness Musculoskeletal: No clubbing, No swelling, No tenderness Integumentary: No rashes Neurological: Normal gait, Normal speech, Normal strength at 5/5 x4 extr, Normal tone, Sensation intact, Cranial nerves 3-12 intact, Normal affect Lymphatics: No axilla or inguinal lymphadenopathy - Studies Laboratory Data (last 24 hrs) 12/21/18 18:40: Sodium 142, Potassium 4.0, BUN 16, Creatinine 0.69, Glucose 188 H 12/21/18 18:40: WBC 5.4, Hgb 8.4 L, Hct 27.0 L, Plt Count 487 H Assessment & Plan - Problems (Diagnosis) (1) Pneumonia of both lower lobes Current Visit: Yes Status: Acute (2) Anemia Current Visit: No Status: Acute Qualifiers: Anemia type: iron deficiency Iron deficiency anemia type: unspecified iron deficiency Qualified Code(s): D50.9 - Iron deficiency anemia, unspecified (3) CHF (congestive heart failure) Onset Date: 07/20/16 Current Visit: No Status: Acute (4) Dyspnea Onset Date: 05/04/16 Current Visit: No Status: Acute Qualifiers: Dyspnea type: unspecified Qualified Code(s): R06.00 - Dyspnea, unspecified (5) Hypoxia Onset Date: 07/20/16 Current Visit: No Status: Acute (6) Bipolar disorder Current Visit: No Status: Chronic Qualifiers: Active/Remission status: currently active Current bipolar episode type: mixed Current episode severity: mild Qualified Code(s): F31.61 - Bipolar disorder, current episode mixed, mild (7) Diabetes mellitus Current Visit: No Status: Chronic Qualifiers: Diabetes mellitus type: type 2 Diabetes mellitus retort fireman insulin use: with skilled nursing use Diabetes mellitus complication status: with unspecified complications Qualified Code(s): E11.8 - Type 2 diabetes mellitus with unspecified complications (8) Hypothyroidism Current Visit: No Status: Chronic Qualifiers: Hypothyroidism type: unspecified Qualified Code(s): E03.9 - Hypothyroidism , unspecified (9) Pneumonitis Current Visit: No Status: Acute - Plan 1. Continue with IV antibiotics 2. Awaiting sputum and blood culture 3. Repeat chest x-ray 4. Will proceed with CT scan of the chest if pneumonia is not improved; patient may need bronchoscopy if chest x-ray does not show improvement of pneumonitis 5. Pulmonary consultation 6. Continue with nebs as needed 7. O2 per protocol 8. Continue with gentle hydration 9. Repeat labs including CBC and renal function in a.m. 10. Monitor H&H closely 11. May need anemia workup 12. GI and DVT prophylaxis - Advance Directives Does patient have a Living Will: No Does patient have a Durable POA for Healthcare: No - Code Status/Comfort Care Code Status Assessed: Yes Code Status: Full Code Critical Care: No Time Spent Managing PTS Care (In Minutes): 45
[2018-12-22] MEDS ORDERED: POTASSIUM CL SA 10 MEQ TAB PO ONE (07:48)
[2018-12-22] MEDS: LORATADINE 10 MG TAB PO SCH (08:25)
[2018-12-22] MEDS: METFORMIN HCL 500 MG TAB PO SCH ×2 (08:25→21:32)
[2018-12-22] MEDS: DULOXETINE 30 MG CAP PO SCH (08:25)
[2018-12-22] MEDS: GABAPENTIN 300 MG CAP PO SCH ×2 (08:25→21:32)
[2018-12-22] MEDS: CEFTRIAXONE/SWI 1gm 1 GM/10 ML SYR IV SCH ×2 (08:26→21:32)
[2018-12-22] MEDS ORDERED: HOME MED 1 EA UNK (Dexlansoprazole [Dexilant] 60 MG) PO SCH (09:00)
[2018-12-22] MEDS: HOME MED 1 EA UNK (Empagliflozin [Jardiance] 10 MG) PO SCH (09:00)
[2018-12-22] MEDS ORDERED: CEFTRIAXONE 1 GM/NS 50 ML 1 GM/50 ML BAG IV SCH (09:00)
[2018-12-22] MEDS ORDERED: HOME MED 1 EA UNK (Levothyroxine Sodium [Levothyroxine Sodium] 175 MCG) PO SCH (09:00)
[2018-12-22] MEDS: HOME MED 1 EA UNK (Carbamazepine [Tegretol Xr] 200 MG) PO SCH ×2 (09:00→21:00)
[2018-12-22 11:53] LABS: Absolute Lymphocytes (CBC) 1.5 K/uL (0.7-4.9); Absolute Monocytes 0.3 K/uL (0.1-1.3); Absolute Neutrophil 3.1 K/uL (1.8-8.0); Basophils % 1.3 % (0-1.3); Eosinophils % 1.9 % (0-4.4); Hematocrit 23.9 % (36.0-45.0); Lymphocytes % 30.4 % (15.3-44.8); MPV 7.6 fL (7.6-11.3); RBC Red Blood Cell Count 3.26 M/uL (3.86-4.86)
[2018-12-22 11:55] LABS: BUN Blood Urea Nitrogen 14 mg/dL (7-18); Bicarbonate 25 mmol/L (21-32); Glucose Level 233 mg/dL (74-106); Sodium Level 138 mmol/L (136-145)
--- NOTE | 2018-12-22 12:54 | P.PN ---
Subjective Date of Service: 12/22/18 Chief Complaint: Pneumonia; bilateral lower lobe interstitial infiltrates Patient seen and examined at bedside. Daughter at bedside. Chart reviewed and case discussed with nursing staff. Patient reports improved breathing, though still gets out of breath. Unable to complete sentences. Still complains of wheezing States her symptoms got worse with IV fluids. States that she has a history of CHF Review of Systems 10-point ROS is otherwise unremarkable Physical Examination - Vital Signs Temperature: 97.2 F Blood Pressure: 106/55 Pulse: 93 Respirations: 20 Pulse Ox (%): 98 - Physical Exam General: Alert, In no apparent distress, Oriented x3 HEENT: Atraumatic, PERRLA, EOMI Neck: Supple, JVD not distended Respiratory: Clear to auscultation bilaterally, Normal air movement, Other (No evidence of volume overload noted) Cardiovascular: Regular rate/rhythm, Normal S1 S2 Gastrointestinal: Normal bowel sounds, No tenderness Musculoskeletal: No tenderness Integumentary: No rashes Neurological: Normal speech, Normal tone, Normal affect Lymphatics: No axilla or inguinal lymphadenopathy - Studies Laboratory Data (last 24 hrs) 12/21/18 18:40: Sodium 142, Potassium 4.0, BUN 16, Creatinine 0.69, Glucose 188 H 12/21/18 18:40: WBC 5.4, Hgb 8.4 L, Hct 27.0 L, Plt Count 487 H Assessment And Plan - Plan (1) Pneumonia of both lower lobes Current Visit: Yes Status: Acute (2) Anemia Current Visit: No Status: Acute Qualifiers: Anemia type: iron deficiency Iron deficiency anemia type: unspecified iron deficiency Qualified Code(s): D50.9 - Iron deficiency anemia, unspecified (3) CHF (congestive heart failure) Onset Date: 07/20/16 Current Visit: No Status: Acute (4) Dyspnea Onset Date: 05/04/16 Current Visit: No Status: Acute Qualifiers: Dyspnea type: unspecified Qualified Code(s): R06.00 - Dyspnea, unspecified (5) Hypoxia Onset Date: 07/20/16 Current Visit: No Status: Acute (6) Bipolar disorder Current Visit: No Status: Chronic Qualifiers: Active/Remission status: currently active Current bipolar episode type: mixed Current episode severity: mild Qualified Code(s): F31.61 - Bipolar disorder, current episode mixed, mild (7) Diabetes mellitus Current Visit: No Status: Chronic Qualifiers: Diabetes mellitus type: type 2 Diabetes mellitus long-term insulin use: with long-term use Diabetes mellitus complication status: with unspecified complications Qualified Code(s): E11.8 - Type 2 diabetes mellitus with unspecified complications (8) Hypothyroidism Current Visit: No Status: Chronic Qualifiers: Hypothyroidism type: unspecified Qualified Code(s): E03.9 - Hypothyroidism , unspecified (9) Pneumonitis Current Visit: No Status: Acute - Plan 1. Continue with IV antibiotics 2. Awaiting sputum and blood culture 3. Repeat chest x-ray, pending 4. Will proceed with CT scan of the chest if pneumonia is not improved; patient may need bronchoscopy if chest x-ray does not show improvement of pneumonitis 5. Pulmonary consultation, recommendations appreciated 6. Continue with nebs as needed 7. O2 per protocol 8. Continue with gentle hydration 9. Repeat labs including CBC and renal function in a.m. 10. Monitor H&H closely 11. May need anemia workup 12. GI and DVT prophylaxis
[2018-12-22] MEDS: HYDROCODONE/APAP 5/325 MG TAB PO PRN ×2 (14:16→21:36)
--- NOTE | 2018-12-22 14:54 | RAD REPORT ---
EXAM DESCRIPTION: RAD - Chest Single View - 12/22/2018 2:13 pm CLINICAL HISTORY: c/o worsening sob Chest pain. COMPARISON: No comparisonsChest Pa And Lat (2 Views) dated 12/21/2018; Chest Pa And Lat (2 Views) faustino ed 12/19/2018; Chest Pa And Lat (2 Views) dated 11/12/2018; Chest Single View dated 10/25/2017 FINDINGS: Portable technique limits examination quality. Moderate worsening in bilateral pulmonary opacities since comparative study, likely indicating worsen ing pneumonia or pulmonary edema. The heart is mildly to moderately enlarged. No displaced fractures.
[2018-12-22] MEDS ORDERED: FUROSEMIDE 20 MG/ 2ML VIAL IV ONE (17:20)
[2018-12-22] MEDS ORDERED: QUETIAPINE 100MG TAB PO SCH (21:00)
[2018-12-22] MEDS ORDERED: FLUCONAZOLE 100 MG TAB PO ONE (21:21)
[2018-12-22] MEDS: AZITHROMYCIN IV 500 MG in NA CHLORIDE 0.9% 250 ML IVPB SCH (21:34)
[2018-12-22] MEDS: NICOTINE 21 MG/PAT TD SCH (22:25)
[2018-12-22] MEDS: TEMAZEPAM 15 MG CAP PO PRN (23:04)
[2018-12-22 23:28] LABS: Urine Appearance CLEAR; Urine Bilirubin NEGATIVE (NEG); Urine Blood NEGATIVE (NEG); Urine Color YELLOW; Urine Glucose NEGATIVE (NEG); Urine Protein NEGATIVE (NEG); Urine Specific Gravity 1.015 (1.005-1.030); Urine Urobilinogen 0.2 mg/dL (0.2-1.0); Urine pH 6.5 (5.0-7.0)
[2018-12-22 23:29] LABS: Urine Microscopic Reflex NO UMIC
[2018-12-23] MEDS: ALBUTEROL 2.5 MG/3 ML NEB SOL NEB SCH ×4 (02:00→20:00)
[2018-12-23] MEDS: IPRATROPIUM BROM 0.5MG/2.5ML NEB SCH ×4 (02:00→20:00)
[2018-12-23] MEDS: HYDROCODONE/APAP 5/325 MG TAB PO PRN ×3 (06:03→18:19)
[2018-12-23] MEDS: LEVOTHYROXINE SOD 0.075 MG TAB PO SCH (06:03)
[2018-12-23] MEDS: PANTOPRAZOLE 40MG TABLET PO SCH (06:04)
[2018-12-23] MEDS: LEVOTHYROXINE SOD 0.1 MG TAB PO SCH (06:04)
[2018-12-23 06:36] LABS: Albumin 3.4 g/dL (3.4-5.0); BUN Blood Urea Nitrogen 14 mg/dL (7-18); Bicarbonate 29 mmol/L (21-32); Glucose Level 175 mg/dL (74-106); Phosphorus 4.4 mg/dL (2.5-4.9); Sodium Level 141 mmol/L (136-145)
[2018-12-23 06:37] LABS: Absolute Lymphocytes (CBC) 1.6 K/uL (0.7-4.9); Absolute Monocytes 0.3 K/uL (0.1-1.3); Absolute Neutrophil 3.2 K/uL (1.8-8.0); Basophils % 1.3 % (0-1.3); Eosinophils % 1.6 % (0-4.4); Hematocrit 24.4 % (36.0-45.0); Lymphocytes % 30.7 % (15.3-44.8); MPV 7.4 fL (7.6-11.3); Monocytes % 6.3 % (3.3-12.3); RBC Red Blood Cell Count 3.34 M/uL (3.86-4.86)
[2018-12-23] MEDS: HOME MED 1 EA UNK (Empagliflozin [Jardiance] 10 MG) PO SCH (09:00)
[2018-12-23] MEDS: HOME MED 1 EA UNK (Carbamazepine [Tegretol Xr] 200 MG) PO SCH ×2 (09:00→20:55)
[2018-12-23] MEDS: METFORMIN HCL 500 MG TAB PO SCH ×2 (09:25→20:49)
[2018-12-23] MEDS: INSULIN -REGULAR HUMAN 50 UNIT/0.5 ML ML SQ SCH ×4 (09:27→21:00)
[2018-12-23] MEDS: GABAPENTIN 300 MG CAP PO SCH ×2 (09:28→20:50)
[2018-12-23] MEDS: CEFTRIAXONE/SWI 1gm 1 GM/10 ML SYR IV SCH ×2 (09:28→20:49)
[2018-12-23] MEDS: LORATADINE 10 MG TAB PO SCH (09:28)
[2018-12-23] MEDS: DULOXETINE 30 MG CAP PO SCH (09:28)
[2018-12-23] MEDS: NICOTINE 21 MG/PAT TD SCH (09:28)
[2018-12-23] MEDS: ENOXAPARIN 40 MG/0.4 ML SQ SCH (09:30)
--- NOTE | 2018-12-23 12:46 | P.PN ---
Subjective Date of Service: 12/23/18 Chief Complaint: Pneumonia; bilateral lower lobe interstitial infiltrates Subjective: Improving Patient seen and examined at bedside. No family at bedside. Chart reviewed and case discussed with nursing staff. Patient reports improved breathing, though still gets out of breath with exertion. Able to complete sentences this morning. Wheezing drastically improve Review of Systems 10-point ROS is otherwise unremarkable Physical Examination - Vital Signs Temperature: 97.8 F Blood Pressure: 95/52 Pulse: 81 Respirations: 19 Pulse Ox (%): 100 - Physical Exam General: Alert, In no apparent distress, Oriented x3 HEENT: Atraumatic, PERRLA, EOMI Neck: Supple, JVD not distended Respiratory: Clear to auscultation bilaterally, Normal air movement Cardiovascular: Regular rate/rhythm, Normal S1 S2 Gastrointestinal: Normal bowel sounds, No tenderness Neurological: Normal speech, Normal affect - Studies Medications List Reviewed: Yes Assessment And Plan - Plan Pneumonia of both lower lobes Continue IV antibiotic Awaiting sputum blood cultures, pending Repeat chest x-ray tomorrow. Patient seems to be clinically improving. If any worsening, will proceed with CT scan of the chest. Anemia H&H stable, seems to be a chronic anemia. No evidence of bleeding at this time. She will need an outpatient anemia workup. CHF (congestive heart failure) Patient with history of congestive heart failure. IV fluids discontinued. She is status post 1 dose of IV Lasix with clinical improvement in Renal pain. Dyspnea Hypoxia Possibly secondary to combination of CHF exacerbation along with pneumonia and anemia. Will continue to treat underlying disorder. Bipolar disorder Will continue home medications Diabetes mellitus Glucometer check and mild sliding scale insulin Hypothyroidism Stable. Will continue home medication DVT prophylaxis: Lovenox GI prophylaxis: None Diet: Heart healthy Disposition: Pending symptomatic improvement. Possible discharge over the next 24-48 hr pending clinical improvement
[2018-12-23] MEDS: TEMAZEPAM 15 MG CAP PO PRN (20:49)
[2018-12-23] MEDS: IBUPROFEN 400 MG TAB PO PRN (20:50)
[2018-12-23] MEDS: QUETIAPINE 100MG TAB PO SCH (20:50)
[2018-12-23] MEDS: AZITHROMYCIN IV 500 MG in NA CHLORIDE 0.9% 250 ML IVPB SCH (21:10)
[2018-12-23] MEDS ORDERED: NICOTINE 21 MG/PAT TD SCH (22:03)
[2018-12-24] MEDS: IPRATROPIUM BROM 0.5MG/2.5ML NEB SCH ×4 (02:00→20:00)
[2018-12-24] MEDS: ALBUTEROL 2.5 MG/3 ML NEB SOL NEB SCH ×4 (02:00→20:00)
[2018-12-24] MEDS: LEVOTHYROXINE SOD 0.1 MG TAB PO SCH (05:41)
[2018-12-24] MEDS: HYDROCODONE/APAP 5/325 MG TAB PO PRN ×2 (05:55→15:28)
[2018-12-24] MEDS: LEVOTHYROXINE SOD 0.075 MG TAB PO SCH (06:09)
[2018-12-24] MEDS: PANTOPRAZOLE 40MG TABLET PO SCH (06:09)
[2018-12-24] MEDS: INSULIN -REGULAR HUMAN 50 UNIT/0.5 ML ML SQ SCH ×4 (07:30→20:38)
--- NOTE | 2018-12-24 08:02 | RAD REPORT ---
EXAM DESCRIPTION: [place] Pa And Lat (2 Views)12/24/2018 7:50 am CLINICAL HISTORY: Shortness of breath COMPARISON: December 22, 2018 FINDINGS: Minimal improvement in the bilateral pulmonary opacities. Heart is mildly enlarged
[2018-12-24] MEDS: HOME MED 1 EA UNK (Empagliflozin [Jardiance] 10 MG) PO SCH (09:00)
[2018-12-24] MEDS: HOME MED 1 EA UNK (Carbamazepine [Tegretol Xr] 200 MG) PO SCH ×2 (09:00→20:39)
[2018-12-24] MEDS: NICOTINE 21 MG/PAT TD SCH ×2 (09:19→20:40)
[2018-12-24] MEDS: ENOXAPARIN 40 MG/0.4 ML SQ SCH (09:19)
[2018-12-24] MEDS: DULOXETINE 30 MG CAP PO SCH (09:19)
[2018-12-24] MEDS: METFORMIN HCL 500 MG TAB PO SCH ×2 (09:20→20:38)
[2018-12-24] MEDS: GABAPENTIN 300 MG CAP PO SCH ×2 (09:20→20:38)
[2018-12-24] MEDS: LORATADINE 10 MG TAB PO SCH (09:20)
[2018-12-24] MEDS: CEFTRIAXONE/SWI 1gm 1 GM/10 ML SYR IV SCH ×2 (09:20→20:39)
[2018-12-24] MEDS ORDERED: GUAIFENESIN 600 MG SA TAB PO PRN (12:05)
[2018-12-24] MEDS: IBUPROFEN 400 MG TAB PO PRN (12:25)
[2018-12-24 12:36] LABS: Absolute Lymphocytes (CBC) 1.6 K/uL (0.7-4.9); Absolute Monocytes 0.3 K/uL (0.1-1.3); Absolute Neutrophil 3.7 K/uL (1.8-8.0); Basophils % 1.1 % (0-1.3); Eosinophils % 1.2 % (0-4.4); Hematocrit 23.4 % (36.0-45.0); Lymphocytes % 27.6 % (15.3-44.8); MPV 7.6 fL (7.6-11.3); Monocytes % 4.9 % (3.3-12.3); RBC Red Blood Cell Count 3.17 M/uL (3.86-4.86)
[2018-12-24 12:53] LABS: ALT/SGPT 21 U/L (12-78); AST/SGOT 13 U/L (15-37); Albumin 3.5 g/dL (3.4-5.0); Alkaline Phosphatase 116 U/L (45-117); BUN Blood Urea Nitrogen 14 mg/dL (7-18); Bicarbonate 27 mmol/L (21-32); Bilirubin Total 0.2 mg/dL (0.2-1.0); Glucose Level 153 mg/dL (74-106); Potassium 3.7 mmol/L (3.5-5.1); Protein, Total 7.7 g/dL (6.4-8.2); Sodium Level 140 mmol/L (136-145)
--- NOTE | 2018-12-24 15:18 | RAD REPORT ---
EXAM DESCRIPTION: RAD - Chest Pa And Lat (2 Views) - 12/24/2018 2:52 pm CLINICAL HISTORY: fluid Chest pain. COMPARISON: Chest Pa And Lat (2 Views) dated 12/24/2018; Chest Single View dated 12/22/2018; Chest Pa A nd Lat (2 Views) dated 12/21/2018; Chest Pa And Lat (2 Views) dated 12/19/2018 FINDINGS: Bilateral pulmonary opacities are again noted, slightly progressive since the comparative study, likely representing pulmonary edema or pneumonia. The heart is upper limit of normal in size. No displaced fractures. IMPRESSION: Mild worsening in lung aeration since comparative study.
[2018-12-24] MEDS: FUROSEMIDE 20 MG/ 2ML VIAL IV SCH (16:07)
[2018-12-24 18:14] LABS: Hematocrit 23.3 % (36.0-45.0)
--- NOTE | 2018-12-24 18:19 | P.PN ---
Subjective Date of Service: 12/24/18 Chief Complaint: Pneumonia; bilateral lower lobe interstitial infiltrates Subjective: Improving Patient seen and examined at bedside. No family at bedside. Chart reviewed and case discussed with nursing staff. Patient reports improved breathing, though still gets out of breath with exertion. Able to complete sentences this morning. Wheezing improve Denies any active bleeding, chest pain, GI or complaints. States that she had a recent EGD a few weeks ago to evaluate for the anemia. She does not know the results yet. This was done at Dr. Roldan's office in [facility]. Review of Systems 10-point ROS is otherwise unremarkable Physical Examination - Vital Signs Temperature: 96.4 F Blood Pressure: 139/77 Pulse: 95 Respirations: 18 Pulse Ox (%): 93 - Physical Exam General: Alert, In no apparent distress, Oriented x3 HEENT: Atraumatic, PERRLA, EOMI Neck: Supple, JVD not distended Respiratory: Dull, Crackles/rales, Expiratory wheezes Cardiovascular: Regular rate/rhythm, Normal S1 S2 Gastrointestinal: Normal bowel sounds, No tenderness Musculoskeletal: No tenderness Integumentary: No rashes Neurological: Normal speech, Normal tone, Normal affect Lymphatics: No axilla or inguinal lymphadenopathy - Studies Medications List Reviewed: Yes Assessment And Plan - Plan Pneumonia of both lower lobes Continue IV antibiotics Awaiting sputum blood cultures, pending Repeat chest x-ray with minimal improvement. Patient seems to be clinically improving. If any worsening, will proceed with CT scan of the chest. Anemia Hemoglobin of 7.2 today, 7.6 yesterday. No evidence of active bleeding. We will go ahead and recheck her H&H again this evening. If less than 7, will transfuse. She currently does have an ongoing workup on anemia. She states that she recently had an EGD in [facility]. She will need outpatient follow up for the results as well as further management and workup of anemia. CHF (congestive heart failure) Patient with history of congestive heart failure. IV fluids discontinued. She is status post 1 dose of IV Lasix with clinical improvement in shortness of breath. Will continue IV Lasix at this time. Echocardiogram ordered, pending Dyspnea Hypoxia Possibly secondary to combination of CHF exacerbation along with pneumonia and anemia. Will continue to treat underlying disorder as noted above Bipolar disorder Will continue home medications Diabetes mellitus Accu-check and mild sliding scale insulin Hypothyroidism Stable. Will continue home medication DVT prophylaxis: Lovenox GI prophylaxis: None Diet: Heart healthy Disposition: Pending symptomatic improvement. Possible discharge over the next 24-48 hr pending clinical improvement
[2018-12-24] MEDS: TEMAZEPAM 15 MG CAP PO PRN (20:51)
[2018-12-24] MEDS: QUETIAPINE 100MG TAB PO SCH (20:51)
[2018-12-24] MEDS: AZITHROMYCIN IV 500 MG in NA CHLORIDE 0.9% 250 ML IVPB SCH (20:51)
[2018-12-25] MEDS: IPRATROPIUM BROM 0.5MG/2.5ML NEB SCH ×3 (02:00→13:37)
[2018-12-25] MEDS: ALBUTEROL 2.5 MG/3 ML NEB SOL NEB SCH ×3 (02:00→13:37)
[2018-12-25 04:00] VITALS: O2SAT 96
[2018-12-25] MEDS: PANTOPRAZOLE 40MG TABLET PO SCH (04:22)
[2018-12-25] MEDS: LEVOTHYROXINE SOD 0.075 MG TAB PO SCH (04:22)
[2018-12-25] MEDS: LEVOTHYROXINE SOD 0.1 MG TAB PO SCH (04:23)
[2018-12-25] MEDS: IBUPROFEN 400 MG TAB PO PRN (04:23)
[2018-12-25 04:28] VITALS: BMI 29.8
[2018-12-25 06:34] LABS: Absolute Lymphocytes (CBC) 1.3 K/uL (0.7-4.9); Absolute Monocytes 0.3 K/uL (0.1-1.3); Absolute Neutrophil 3.6 K/uL (1.8-8.0); Eosinophils % 1.2 % (0-4.4); Hematocrit 22.6 % (36.0-45.0); Lymphocytes % 24.7 % (15.3-44.8); MPV 7.6 fL (7.6-11.3); RBC Red Blood Cell Count 3.12 M/uL (3.86-4.86)
[2018-12-25 06:51] LABS: ALT/SGPT 20 U/L (12-78); AST/SGOT 11 U/L (15-37); Albumin 3.5 g/dL (3.4-5.0); Alkaline Phosphatase 114 U/L (45-117); BUN Blood Urea Nitrogen 17 mg/dL (7-18); Bicarbonate 30 mmol/L (21-32); Bilirubin Total 0.4 mg/dL (0.2-1.0); Glucose Level 180 mg/dL (74-106); Potassium 3.9 mmol/L (3.5-5.1); Protein, Total 7.5 g/dL (6.4-8.2); Sodium Level 138 mmol/L (136-145)
--- NOTE | 2018-12-25 08:03 | ECHO ---
HEIGHT: 5 ft 4 in WEIGHT: 173 lb 12.8 oz DATE OF STUDY: 12/24/[address]: Ronda Zapata MD 2-DIMENSIONAL: YES M.MODE: YES DOPPLER: YES COLOR FLOW: YES TDS: NO PORTABLE: NO DEFINITY: NO BUBBLE STUDY: NO DIAGNOSIS: SHORTNESS OF BREATH CARDIAC HISTORY: CATHERIZATION: NO SURGERY: NO PROSTHETIC VALVE: NO PACEMAKER: NO MEASUREMENTS (cm) DIASTOLIC (NORMALS) SYSTOLIC (NORMALS) IVSd 1.0 (0.6-1.2) LA Diam 4.0 (1.9-4.0) LVEF 68% LVIDd 4.4 (3.5-5.7) LVIDs 2.7 (2.0-3.5) %FS 38% LVPWd 1.2 (0.6-1.2) Ao Diam 3.0 (2.0-3.7) 2 DIMENSIONAL ASSESSMENT: RIGHT ATRIUM: NORMAL LEFT ATRIUM: DILATED RIGHT VENTRICLE: NORMAL LEFT VENTRICLE: NORMAL TRICUSPID VALVE: NORMAL MITRAL VALVE: MITRAL ANNULAR CALCIFICATION WITH RHEUMATIC MITRAL STENOSIS PULMONIC VALVE: NORMAL AORTIC VALVE: SCLEROSIS PERICARDIAL EFFUSION: NONE AORTIC ROOT: NORMAL LEFT VENTRICULAR WALL MOTION: NORMAL DOPPLER/COLOR FLOW: NO AORTIC STENOSIS OR AORTIC REGURGIATION. MODERATE MITRAL STENOSIS. ESTIMATED MITRAL VALVE AREA 1.6 CENTIMETERS SQUARED. MILD MITRAL AND TRICUSPID REGURGITATION. ESTIMATED RIGHT VENTRICULAR SYSTOLIC PRESSURE 70 mmHg. SEVERE PULMONARY HYPERTENSION. COMMENTS: NORMAL LEFT VENTRICULAR EJECTION FRACTION. DILATED LEFT ATRIUM. AORTIC SCLEROSIS WITH NO AORTIC STENOSIS OR AORTIC REGURGIATION. MITRAL ANNULAR CALCIFICATION. MODERATE MITRAL STENOSIS. MILD MITRAL AND TRICUSPID REGURGITATION. SEVERE PULMONARY HYPERTENSION. TECHNOLOGIST: Vicente MICHAEL
[2018-12-25] MEDS: DULOXETINE 30 MG CAP PO SCH (08:40)
[2018-12-25] MEDS: INSULIN -REGULAR HUMAN 50 UNIT/0.5 ML ML SQ SCH ×2 (08:40→11:30)
[2018-12-25] MEDS: HYDROCODONE/APAP 5/325 MG TAB PO PRN (08:41)
[2018-12-25] MEDS: METFORMIN HCL 500 MG TAB PO SCH (08:41)
[2018-12-25] MEDS: LORATADINE 10 MG TAB PO SCH (08:42)
[2018-12-25] MEDS: ENOXAPARIN 40 MG/0.4 ML SQ SCH (08:42)
[2018-12-25] MEDS: GABAPENTIN 300 MG CAP PO SCH (08:42)
[2018-12-25] MEDS: FUROSEMIDE 20 MG/ 2ML VIAL IV SCH (08:43)
[2018-12-25] MEDS: CEFTRIAXONE/SWI 1gm 1 GM/10 ML SYR IV SCH (08:43)
[2018-12-25] MEDS: NICOTINE 21 MG/PAT TD SCH (08:44)
[2018-12-25] MEDS: HOME MED 1 EA UNK (Empagliflozin [Jardiance] 10 MG) PO SCH (08:45)
[2018-12-25] MEDS: HOME MED 1 EA UNK (Carbamazepine [Tegretol Xr] 200 MG) PO SCH (08:45)
[2018-12-25] MEDS ORDERED: POTASSIUM CL SA 10 MEQ TAB PO ONE (09:00)
[2018-12-25] MEDS ORDERED: FLUCONAZOLE 100 MG TAB PO ONE (11:06)
[2018-12-25 12:08] LABS: Hematocrit 24.9 % (36.0-45.0)
[2018-12-25 12:52] VITALS: BP 127/70; TEMP 97.5
--- NOTE | 2018-12-26 05:22 | DS ---
Date of Discharge: 12/25/2018 Consultants: None. Admitting Diagnoses: 1.Bilateral lower lobe pneumonia. 2.Iron deficiency anemia. 3.Congestive heart failure. 4.Dyspnea. 5.Hypoxia. 6.Bipolar disorder. 7.Diabetes mellitus type 2 with long-term use of insulin with hyperglycemia. 8.Hypothyroidism. 9.Pneumonitis. Discharge Diagnoses: 1.Bilateral lower lobe pneumonia. 2.Anemia of chronic iron deficiency. The patient has had workup including EGD and colonoscopy in [facility]. 3.Diastolic heart failure acute on chronic. 4.Dyspnea, improved. 5.Hypoxia, resolved, now off supplemental oxygen. 6.Severe pulmonary hypertension. 7.Mitral stenosis. 8.Bipolar disorder, stable. 9.Diabetes mellitus type 2, noninsulin requiring with hyperglycemia. 10.Hypothyroidism. Hospital Course: The patient is a 53-year-old female with past medical history of bipolar disorder, who was recently diagnosed with bronchitis, started on Z-Mulugeta and prednisone, continued to get worse. Chest x-ray showed bilateral lower lobe interstitial infiltrates progressive from 2017. The patient received breathing treatments and steroids. The patient's cultures did not show any growth. Repeat chest x-ray initially showed worsening likely secondary to pulmonary edema. The patient was started on IV Lasix and has improvement. Chest x-ray also showed improvement. The patient's ejection fract ion was 68% on echocardiogram. She had a dilated left atrium, aortic sclerosis with no aortic stenos is or regurg. She had mitral annular calcification, moderate mitral stenosis, mild mitral and tricus pid regurgitation, and she was also found to have severe pulmonary hypertension. The patient states she had some cardiomyopathy. She had some peripartum cardiomyopathy and had to be [facility] after the of her daughter. The patient has not followed up with cardiologists at that time. The patient overall did well. Her white count remained stable. She was afebrile. He r shortness of breath improved. She was 95% on room, weaned off oxygen. Blood cultures did not show any growth to date. She did have anemia. Her hemoglobin remained stable. Did not require any bloo d transfusions. She has been being worked up by Dr. Roldan in [place]. Has had a colonoscopy and EGD recently. The patient was recommended to follow up with her GI doctor in 1 to 2 weeks for results o f her scope and to rule out malignancy as a source of her bleeding. The patient has stopped taking i grupo pills due to constipation. The patient was recommended to continue her iron pills and to use sto ol softeners to avoid constipation. She voices understanding. Her dyspnea may be multifactorial inc luding her pulmonary hypertension, diastolic heart failure, valve stenosis, as well as severe anemia. Followup: She will need to follow up with PCP in 2-3 days. Establish care with direct casting operator in 2 we eks. Follow up with GI, Dr. Roldan, in 1 week and return to ER for worsening condition. Repeat CBC in 1 week. Diet: Low-sodium, fluid-restricted diet. Activity: As tolerated. No strenuous activity. Medications: As per medication reconciliation list. The patient will be discharged on Lasix with po tassium supplementation. Physical Examination: General: Awake, alert, oriented x3. No acute distress. CV: S1, S2. Regular rate and rhythm. Peripheral pulses present. Respiratory: Moving air well bilaterally. Diminished breath sounds at the bases. No wheezing. Gastrointestinal: Abdomen is soft, nontender, nondistended. Positive bowel sounds. Extremities: No clubbing, cyanosis, or edema. Neuro: Nonfocal. Total time spent discharging the patient was 41 minutes. /CLEMENT Voice ID: [id number] Report ID: [id number]
--- NOTE | 2019-01-01 10:53 | EKG ---
Test Date: 2018-12-21 Test Time: 17:52:08 Biomedical Technician: JANUARY MEASUREMENT RESULTS: Intervals: Rate: 79 DC: 130 QRSD: 72 QT: 392 QTc: 449 Townsend: P: 43 DC: 130 QRS: 86 T: 22 INTERPRETIVE STATEMENTS: Normal sinus rhythm Septal infarct, age undetermined Abnormal ECG Compared to ECG 11/12/2018 19:12:59 Myocardial infarct finding now present Electronically Signed On 12-22-18 08:17:33 CDT by Alex Trevino
== END 2018-12-25 15:00 | disposition home or self-care (01) ==
LOC: ER 17:26 → ERHOLD 19:27 → INTOOBSV 19:27 → EEVIPCON 19:27 → 2ND 21:23
PROVIDERS: ADMIT Hospitalist; ATTEND Hospitalist
DX: J18.9 Pneumonia, unspecified organism (principal); D50.9 Iron deficiency anemia, unspecified; I11.0 Hypertensive heart disease with heart failure; I50.33 Acute on chronic diastolic (congestive) heart failure; E03.9 Hypothyroidism, unspecified; E11.9 Type 2 diabetes mellitus without complications; F31.9 Bipolar disorder, unspecified; R09.02 Hypoxemia; I27.20 Pulmonary hypertension, unspecified; I05.0 Rheumatic mitral stenosis; F17.210 Nicotine dependence, cigarettes, uncomplicated
CPT/HCPCS: 36415; 71045; 71046; 80048; 80053; 80061; 80069; 81003; 82962; 83605; 83735; 84100; 84145; 85014; 85018; 85025; 86850; 86900; 86901; 87040; 93005; 93306; 94640; 94760; 96365; 99285; J0456; J0696; J1650; J1940; J2405; J7030

== ENCOUNTER 2019-05-03 17:16 | Emergency (ER) | payer OTHER ==
--- OUTSIDE RECORDS SUMMARY | 2019-05-03 17:19 | XMS REPORT ---
:1965 [facility] Address [address] [place] [address] Care Team Providers Name Role Phone Unavailable Unavailable Unavailable Payers Payer Name Policy Type Policy Number Effective Date Expiration Date Problems This patient has no known problems. Allergies, Adverse Reactions, Alerts Allergy Name Allergy Status Severity Reaction(s) Onset Inactive Treating Comments Type Date Date Clinician Penicillins DA Active OK 2014-04 00:00:0 0 Medications This patient has no known medications. Results Test Description Test Time Test Comments Text Results Atomic Results Result Comments SURG 2018-12-10 RUN DATE: 16:14:00 12/10/18 [facility] - LAB *LIVE* PAGE 1 RUN TIME: 1614 Specimen Inquiry RUN USER: INTERFACE PATIENT: JO-ANN NUR LOC: ELI U #: [id number] AGE/SX: 53/F ROOM: RE12[facility]18[facility] DR: Bandar Roldan MD : 67 BED: DIS: STATUS: [facility] TLOC: SPEC #: [id number] RECD: 12/07/18 STATUS: CELY RE # : [id number] ABELINO: 12/06/[address] [facility] [address]: Bandar Roldan MD ENTERED: 12/07/18 SP TYPE: SURG OTHR DR: Mirtha Puckett ORDERED: AB/PAS MELLO, SURG PATH LVL /, PATH STAIN GROU COPIES TO: Mirtha Puckett [address] [phone] Bandar Roldan MD [address] [address] HISTOLOGY: TISSUE ID BLK PCS BLANCHE LEV PROCEDURE DISPOSITION ____ ___ ___ ___ ___ JEJUNUM, NOS A 1 2 DUODENUM, NOS B 1 2 STOMACH, NOS C 1 1 PATH STAIN GROU STOMACH, NOS C 1 2 AB/PAS MELLO COLON, NOS D 1 2 ILEUM, NOS E 1 2 PROCEDURES: ALBLUE (12/07/18) PAS (12/07/18) SURG PATH LVL 4 (12/07/18) PATH STAIN GROU (12/07/18 821) TISSUES: A. JEJUNUM, NOS - JEJUNUM BX B. DUODENUM, NOS - DUODENUM BX C. STOMACH, NOS - STOMACH BX D. COLON, NOS - RANDOM COLON BX E. ILEUM, NOS - ILEUM BX CLINICAL HISTORY ACUTE GASTRITIS -K29.00; ANEMIA -D50.0; FATTY LIVER -K76.0 CONTINUED ON NEXT PAGE RUN DATE: 12/10/18 [facility] - LAB *LIVE* PAGE 2 RUN TIME: 1614 Specimen Inquiry RUN USER: INTERFACE SPEC #: [id number] PATIENT: JO-ANN NUR #[id number] (Continued) CPT CODES CPT CODE(S): 00782N6 , 24213 , 68034 , , , , FINAL DIAGNOSIS A. Small bowel, jejunum, biopsy: UNREMARKABLE SMALL BOWEL MUCOSA B. Small bowel, duodenum, biopsy: UNREMARKABLE DUODENUM WITH UNREMARKABLE VILLI C. Stomach, biopsy: CHRONIC GASTRITIS WITH INTESTINAL METAPLASIA NEGATIVE FOR DYSPLASIA OR MALIGNANCY NEGATIVE FOR HELICOBACTER PYLORI ORGANISMS D. Colon, biopsy: FOCAL ACUTE COLITIS E. Small bowel, ileum, biopsy: UNREMARKABLE SMALL BOWEL MUCOSA GROSS DESCRIPTION A. Jejunum biopsy. Received in formalin are two higgins tissue fragments, 0.3 cm each, all as A. B. Duodenum biopsy. Received in formalin are two higgins tissue fragments, 0.3 cm each, all as B. C. Stomach biopsy. Received in formalin are three higgins tissue fragments, 0.2 - 0.5 cm, all as C. D. Random colon biopsy. Received in formalin are three higgins tissue fragments, 0.3 - 0.5 cm, all as D. E. Ileum biopsy. Received in formalin are four higgins tissue fragments, 0.1 - 0.3 cm, all as E. ba/nr Grossing performed at [facility] Pathology, [address], [address], [place] [address]. Artificial Limb Fitter: Laci Ross M.D. CONTINUED ON NEXT PAGE RUN DATE: 12/10/18 [facility] - LAB *LIVE* PAGE 3 RUN TIME: 1614 Specimen Inquiry RUN USER: INTERFACE SPEC #: [facility]:[id number] PATIENT: JO-ANN NUR #[id number] (Continued) MICROSCOPIC DESCRIPTION A. Jejunum biopsy. Sections demonstrate unremarkable small bowel with no evidence of villous blunting or increased inflammation. B. Duodenum biopsy. Sections demonstrate unremarkable duodenum with evidence of villous blunting or increased intraepithelial lymphocytes. No features of a malabsorption syndrome are identified. C. Stomach biopsy. Sections demonstrate gastric mucosa with chronic inflammation. Areas of intestinal metaplasia are seen and confirmed by Alcian blue-PAS. No dysplasia or malignancy is identified. The Diff Quik stain demonstrates no evidence of Helicobacter pylori organisms. D. Random colon biopsy. Sections demonstrate colonic mucosa with focal acute inflammation. No chronic architectural distortion is seen. No dysplasia or malignancy is identified. The presence of focal acute inflammation is nonspecific. Clinical correlation suggested. E. Ileum biopsy. Sections demonstrate ileal mucosa with no evidence of villous blunting. No increased inflammation is notified. No dysplasia or malignancy is seen. Signed SIGNATURE ON Ej Hurst 12/10/18 1614 END OF REPORT GLUCOSE BEDSIDE TESTING 2018-12-06 06:50:00 Test Item Value Reference Range Comments GLUCOSE BEDSIDE TESTING (test code=GLUBED) 167 mg/dL 70-110 UR HCG [id number] 16:27:00 Test Item Value Reference Range Comments UR HCG QUAL (test code=HCGQLU) NEGATIVE NEGATIVE
--- OUTSIDE RECORDS SUMMARY | 2019-05-03 17:19 | XMS REPORT | Clinical Summary ---
:1965 Author Organization [facility] Address [address] [place] [id number] Care Team Providers Name Role Phone Unavailable Primary Care Provider Unavailable Allergies Not on File Medications Not on file Active Problems Not on file Social History Tobacco Use Types Packs/Day Years Used Date Never Assessed Sex Assigned at Date Recorded Not on file Job Start Date Occupation Industry Not on file Not on file Not on file Travel History Travel Start Travel End No recent travel history available. Last Filed Vital Signs Not on file Plan of Treatment Date Type Specialty Care Team Description 05/24/2019 Appointment Cardiology Nela Stanton MD [address] [address] [phone] 05/24/2019 Hospital Encounter Cardiology Nela Stanton MD [address] [phone] Results Not on fileafter 05/02/2018 Insurance Payer Benefit Plan / Subscriber ID Type Phone Address Group MEDICAID - MEDICAID [facility] xxxxxxxxx Medicaid Contracted [employer]GD CARE PLAN [phone] [id number] (Work)
--- NOTE | 2019-05-03 18:14 | ER ---
Nurse's Notes [facility] [place] [place] Name: Kim Weldon Age: 53 yrs Sex: Female : 1965 Arrival Date: 05/03/2019 Time: 17:19 Bed 15 Private MD: Diagnosis: Dental caries;Dental root caries Presentation: 05/03 17:26 Presenting complaint: Patient states: "I've been having a toothache for 2 weeks and I aa5 don't have money for the dentist". Transition of care: patient was not received from another setting of care. Onset of symptoms was March 2019. Risk Assessment: Do you want to hurt yourself or someone else? Patient reports no desire to harm self or others. Initial Sepsis Screen: Does the patient meet any 2 criteria? No. Patient's initial sepsis screen is negative. Does the patient have a suspected source of infection? No. Patient's initial sepsis screen is negative. Care prior to arrival: None. 17:26 Acuity: ALFRED 4 aa5 17:26 Method Of Arrival: Ambulatory aa5 RUG WASHER: 17:28 LMP N/A - Post-menopause aa5 Historical: - Allergies: 17:28 PENICILLINS; aa5 - PMHx: 17:28 Asthma; Bipolar disorder; CHF; Diabetes - IDDM; Fibromyalgia; Hypertension; aa5 Hypothyroidism; mitral valve prolapse; scoliosis; - PSHx: 17:28 Heart stents; aa5 - Immunization history:: Flu vaccine is not up to date. - Social history:: Smoking status: Patient/guardian denies using tobacco. - Ebola Screening: : No symptoms or risks identified at this time. Screenin:51 Abuse screen: Denies threats or abuse. Denies injuries from another. Nutritional aj1 screening: No deficits noted. Tuberculosis screening: No symptoms or risk factors identified. 18:39 Fall Risk None identified. aj1 Assessment: 17:51 General: Appears in no apparent distress. uncomfortable, Behavior is calm, cooperative, aj1 appropriate for age. Pain: Complains of pain in mouth Pain currently is 10 out of 10 on a pain scale. Neuro: Level of Consciousness is awake, alert, obeys commands, Oriented to person, place, time, situation. Cardiovascular: Patient's skin is warm and dry. Respiratory: Airway is patent Respiratory effort is even, unlabored, Respiratory pattern is regular, symmetrical. GI: No signs and/or symptoms were reported involving the gastrointestinal system. : No signs and/or symptoms were reported regarding the genitourinary system. EENT: Reports tooth pain. Derm: No signs and/or symptoms reported regarding the dermatologic system. Skin is pink, warm \\T\\ dry. normal. Musculoskeletal: No signs and/or symptoms reported regarding the musculoskeletal system. Circulation, motion, and sensation intact. Vital Signs: 17:28 BP 133 / 76; Pulse 78; Resp 18 S; Temp 98.0(TE); Pulse Ox 96% on R/A; Weight 77.11 kg aa5 (R); Height 5 ft. 4 in. (162.56 cm) (R); Pain 10/10; 17:28 Body Mass Index 29.18 (77.11 kg, 162.56 cm) aa5 ED Course: 17:19 Patient arrived in ED. as 17:26 Arm band placed on. aa5 17:27 Triage completed. aa5 17:29 Ralph Scott PA is PHCP. jr8 17:29 Phoenix Melendez MD is Attending Physician. jr8 17:50 Monse Mercedes, RN is Primary Nurse. aj1 17:51 Patient has correct armband on for positive identification. aj1 17:51 No provider procedures requiring assistance completed. aj1 18:39 Patient did not have IV access during this emergency room visit. aj1 Administered Medications: No medications were administered Outcome: 18:13 Discharge ordered by . jr8 18:39 Discharged to home ambulatory. aj1 18:39 Condition: good 18:39 Discharge instructions given to patient, Instructed on discharge instructions, follow up and referral plans. medication usage, Demonstrated understanding of instructions, follow-up care, medications, Prescriptions given X 2. 18:39 Patient left the ED. aj1 Signatures: Monse Mercedes, RN RN aj1 Yvrose Benson Audri RN RN aa5 Ralph Scott PA PA jr8
--- NOTE | 2019-05-03 18:14 | EDPHYS ---
Physician Documentation [facility] Name: Kim Weldon Age: 53 yrs Sex: Female : 1965 Arrival Date: 05/03/2019 Time: 17:19 Bed 15 Private MD: ED Physician Phoenix Melendez HPI: 05/03 18:30 This 53 yrs old Female presents to ER via Ambulatory with complaints of jr8 Toothache. 18:30 The patient presents with broken tooth/teeth, pain. The problem is located in the jr8 mouth. Onset: The symptoms/episode began/occurred gradually, 2 week(s) ago. Modifying factors: The symptoms are alleviated by nothing, the symptoms are aggravated by air, chewing, food. Associated signs and symptoms: The patient has no apparent associated signs or symptoms. Severity of symptoms: At their worst the symptoms were moderate, in the emergency department the symptoms are unchanged. The patient has not experienced similar symptoms in the past. The patient has not recently seen a physician. Stated that she has had chronic fractured teeth secondary to decay from caries. Stated that she started to have pain several days ago that is now getting worse . 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 - Social history:: Smoking status: Patient/guardian denies using tobacco. - Ebola Screening: : No symptoms or risks identified at this time. ROS: 18:30 Eyes: Negative for injury, pain, redness, and discharge, Neck: Negative for injury, jr8 pain, and swelling, Cardiovascular: Negative for chest pain, palpitations, and edema, Respiratory: Negative for shortness of breath, cough, wheezing, and pleuritic chest pain, Abdomen/GI: Negative for abdominal pain, nausea, vomiting, diarrhea, and constipation, Back: Negative for injury and pain, MS/Extremity: Negative for injury and deformity, Skin: Negative for injury, rash, and discoloration, Neuro: Negative for headache, weakness, numbness, tingling, and seizure. 18:30 ENT: Positive for dental pain. Exam: 18:30 Eyes: Pupils equal round and reactive to light, extra-ocular motions intact. Lids and jr8 lashes normal. Conjunctiva and sclera are non-icteric and not injected. Cornea within normal limits. Periorbital areas with no swelling, redness, or edema. Neck: Trachea midline, no thyromegaly or masses palpated, and no cervical lymphadenopathy. Supple, full range of motion without nuchal rigidity, or vertebral point tenderness. No Meningismus. Cardiovascular: Regular rate and rhythm with a normal S1 and S2. No gallops, murmurs, or rubs. Normal PMI, no JVD. No pulse deficits. Respiratory: Lungs have equal breath sounds bilaterally, clear to auscultation and percussion. No rales, rhonchi or wheezes noted. No increased work of breathing, no retractions or nasal flaring. Abdomen/GI: Soft, non-tender, with normal bowel sounds. No distension or tympany. No guarding or rebound. No evidence of tenderness throughout. Back: No spinal tenderness. No costovertebral tenderness. Full range of motion. Skin: Warm, dry with normal turgor. Normal color with no rashes, no lesions, and no evidence of cellulitis. MS/ Extremity: Pulses equal, no cyanosis. Neurovascular intact. Full, normal range of motion. Neuro: Awake and alert, GCS 15, oriented to person, place, time, and situation. Cranial nerves II-XII grossly intact. Motor strength 5/5 in all extremities. Sensory grossly intact. Cerebellar exam normal. Normal gait. 18:30 ENT: Exam is negative for earache, ear discharge, TM abnormalities, nasal discharge, Mouth: Lips: moist, Oral mucosa: pink and intact, moist, Gums: pink, Tongue: is moist, Posterior pharynx: Airway: patent, Tonsils: are normal in appearance, no enlargement, no erythema, no exudate, no ulcerations, Uvula: midline, non-edematous, no erythema, swelling, is not appreciated, erythema, is not appreciated, Dental exam: dental caries, that is moderate, diffusely, fractured teeth are noted, specifically the upper left first molar (#14) and lower right first molar (#30), pain, that is moderate, specifically in the upper left first molar (#14) and lower right first molar (#30). Vital Signs: 17:28 BP 133 / 76; Pulse 78; Resp 18 S; Temp 98.0(TE); Pulse Ox 96% on R/A; Weight 77.11 kg aa5 (R); Height 5 ft. 4 in. (162.56 cm) (R); Pain 10/10; 17:28 Body Mass Index 29.18 (77.11 kg, 162.56 cm) aa5 MDM: 17:29 Patient medically screened. jr8 18:08 Data reviewed: vital signs, nurses notes, and as a result, I will discharge patient. jr8 Data interpreted: Pulse oximetry: on room air is 96 %. Interpretation: normal. Counseling: I had a detailed discussion with the patient and/or guardian regarding: the historical points, exam findings, and any diagnostic results supporting the discharge/admit diagnosis, the need for outpatient follow up, a dentist, to return to the emergency department if symptoms worsen or persist or if there are any questions or concerns that arise at home. Administered Medications: No medications were administered Disposition: 05/03/19 18:13 Discharged to Home. Impression: Dental caries, Dental root caries. - Condition is Stable. - Discharge Instructions: Dental Caries, Adult, Dental Pain, Root Canal. - Prescriptions for Clindamycin HCl 300 mg Oral Capsule - take 1 capsule by ORAL route every 6 hours for 10 days; 40 capsule. Tramadol 50 mg Oral Tablet - take 1 tablet by ORAL route every 6 hours as needed; 16 tablet. - Work release form, Medication Reconciliation Form, Thank You Letter, Antibiotic Education, Prescription Opioid Use form. - Follow up: Private Physician; When: 5 - 6 days; Reason: Recheck today's complaints, Continuance of care, Re-evaluation by your physician. - Problem is new. - Symptoms have improved. Addendum: 05/06/2019 09:27 Co-signature as Attending Physician, Phoenix Melendez MD I agree with the assessment and k dr plan of care. Signatures: Monse Mercedes, RN RN aj1 Phoenix Melendez MD MD [facility] Laila Schmidt RN RN aa5 Ralph Scott PA PA jr8 Corrections: (The following items were deleted from the chart) 05/03 18:39 18:13 05/03/2019 18:13 Discharged to Home. Impression: Dental caries; Dental root aj1 caries. Condition is Stable. Forms are Medication Reconciliation Form, Thank You Letter, Antibiotic Education, Prescription Opioid Use. Follow up: Private Physician; When: 5 - 6 days; Reason: Recheck today's complaints, Continuance of care, Re-evaluation by your physician. Problem is new. Symptoms have improved. jr8
[2019-05-03 19:59] VITALS: BP 133/76; TEMP 98; O2SAT 96
== END 2019-05-03 18:39 | disposition home or self-care (01) ==
LOC: ER 17:16
DX: K02.7 Dental root caries (principal); K02.9 Dental caries, unspecified; I10 Essential (primary) hypertension; Z88.0 Allergy status to penicillin; Z95.818 Presence of other cardiac implants and grafts
CPT/HCPCS: 99282

== ENCOUNTER 2019-05-15 01:24 | Emergency (ER) | payer OTHER ==
--- OUTSIDE RECORDS SUMMARY | 2019-05-15 01:27 | XMS REPORT | Summary of Care ---
:1965 Author Organization [facility] Address [address] [place] [address] Care Team Providers Name Role Phone Crystal Locke MD Primary Care Provider Reason for Visit Reason Comments Refill Request Encounter Details Date Type Department Care Team Description 05/06/2019 Refill [facility] Family Medicine Crystal Locke MD Refill Request - [address] [address] [place] [address] Allergies Active Allergy Reactions Severity Noted Date Comments Penicillin Hives 01/10/2019 documented as of this encounter (statuses as of 05/06/2019) Medications Medication Sig Dispensed Refills Start Date End Date Status Iron, Cbn & Take 1 tablet by 30 tablet 5 01/23/2019 Active Apfh-EV-S74-C-DSS mouth daily. (FERRALET 90 DUAL-IRON DELIVERY) 90-1-12-50 di-qf-hyr-mg per tabletIndications: Iron deficiency anemia due to chronic blood loss, B12 deficiency liraglutide (VICTOZA inject 1.8 mg 9 mL 02/01/2019 Active 3-SANDRA) 0.6 mg/0.1 mL under the skin (18 mg/3 mL) daily. injectionIndications: Type 2 diabetes mellitus with complication, unspecified whether enterprise integration architect insulin use metFORMIN 1,000 mg TK 1 T PO BID 60 tablet 5 02/01/2019 Active tabletIndications: Type 2 diabetes mellitus with complication, unspecified whether nursing home insulin use aspirin 81 mg Take 1 tablet by 30 tablet 11 02/09/2019 02/04/2020 Active chewable mouth daily for tabletIndications: 360 days. Congestive heart failure, unspecified HF chronicity, unspecified heart failure type, Rheumatic mitral stenosis prasugrel 10 mg Take 1 tablet by 30 tablet 5 02/09/2019 08/08/2019 Active tabletIndications: mouth daily for Congestive heart 180 days. failure, unspecified HF chronicity, unspecified heart failure type, Rheumatic mitral stenosis spironolactone 25 mg Take 1 tablet by 30 tablet 5 03/07/2019 Active tabletIndications: mouth daily. Congestive heart failure, unspecified HF chronicity, unspecified heart failure type, Rheumatic mitral stenosis ramelteon 8 mg Take 1 tablet by 30 tablet 0 03/07/2019 Active tabletIndications: mouth at bedtime Chronic insomnia as needed (insomnia). Refills should come from Psychiatry. ondansetron 4 mg Take 1 tablet by 12 tablet 0 03/07/2019 Active tabletIndications: mouth every 8 Nausea (eight) hours as needed for Nausea and Vomiting (N/V). metoprolol tartrate Take 0.5 tablets 30 tablet 5 03/07/2019 Active 25 mg by mouth 2 (two) tabletIndications: times daily. Congestive heart failure, unspecified HF chronicity, unspecified heart failure type, Rheumatic mitral stenosis furosemide 40 mg Take 1 tablet by 30 tablet 5 03/07/2019 Active tabletIndications: mouth daily. Congestive heart failure, unspecified HF chronicity, unspecified heart failure type, Rheumatic mitral stenosis empagliflozin Take 1 tablet by 30 tablet 5 03/07/2019 Active (JARDIANCE) 10 mg mouth daily. TabIndications: Type 2 diabetes mellitus with complication, unspecified whether enterprise integration architect insulin use atorvastatin 40 mg Take 1 tablet by 30 tablet 5 03/07/2019 Active tabletIndications: mouth at Rheumatic mitral bedtime. stenosis, Coronary artery disease involving [place] coronary artery of [place] heart with angina pectoris budesonide-formoterol INL 2 PFS PO BID 10.2 g 5 03/07/2019 Active (SYMBICORT) 160-4.5 mcg/actuation inhalerIndications: Medication refill albuterol (PROAIR Inhale 2 Puffs 1 Inhaler 1 03/07/2019 Active HFA) 90 mcg/actuation every 4 (four) inhalerIndications: hours as needed Medication refill for Wheezing or Shortness of Breath. pantoprazole 40 mg EC TK 1 T PO QD 30 tablet 5 03/07/2019 Active tabletIndications: Medication refill loratadine 10 mg TK 1 T PO D 30 tablet 5 03/07/2019 Active tabletIndications: Medication refill levothyroxine 175 mcg TK 1 T PO QD 30 tablet 5 03/07/2019 Active tabletIndications: Medication refill gabapentin 300 mg TK 1 C PO BID 60 capsule 5 03/07/2019 Active capsuleIndications: Medication refill fluticasone 50 SHAKE LQ AND U 1 1 Bottle 5 03/07/2019 Active mcg/actuation nasal SPR IEN D IN THE sprayIndications: MORNING Medication refill carBAMazepine 200 mg TK 1 T PO BID. 60 tablet 0 03/07/2019 Active 12 hr Refills should tabletIndications: come from Medication refill Psychiatry. nicotine 14 mg/24 hr Apply 1 Patch to 28 Patch 0 03/07/2019 Active patchIndications: area(s) every 24 Tobacco use (twenty-four) hours. DULoxetine 60 mg TAKE ONE CAPSULE 30 capsule 0 04/05/2019 Active capsuleIndications: BY MOUTH DAILY Medication refill QUEtiapine 400 mg TAKE 1 TABLET BY 30 tablet 0 04/05/2019 Active tabletIndications: MOUTH EVERY Medication refill NIGHT AT BEDTIME documented as of this encounter (statuses as of 05/06/2019) Active Problems Problem Noted Date Elevated lipase 03/27/2019 Thrombocytosis 03/27/2019 CHF exacerbation 02/04/2019 Acute on chronic diastolic congestive heart failure 02/04/2019 Rheumatic mitral stenosis 02/04/2019 Pulmonary hypertension 02/04/2019 HORTENCIA on CPAP 02/04/2019 Type 2 diabetes mellitus without complication, without long-term current 02/04 use of insulin Acquired hypothyroidism 01/10/2019 Anemia Anxiety Asthma Depression Bipolar disorder documented as of this encounter (statuses as of 05/06/2019) Social History Tobacco Use Types Packs/Day Years Used Date Former Smoker Cigarettes Quit: 12/24/2018 Smokeless Tobacco: Never Used Comments: using patches Alcohol Use Drinks/Week oz/Week Comments No Sex Assigned at Date Recorded Not on file Job Start Date Occupation Industry Not on file Not on file Not on file Travel History Travel Start Travel End No recent travel history available. documented as of this encounter Last Filed Vital Signs Not on filedocumented in this encounter Plan of Treatment Health Maintenance Due Date Last Done Comments PNEUMOCOCCAL 0-64 YEARS COMBINED 1972 SERIES (1 of 1 - PPSV23) EYE EXAM 1976 LDL-C 1976 URINE MICROALBUMIN 1976 FOOT EXAM 1984 DTaP,Tdap,and Td Vaccines (1 - 1985 Tdap) MAMMOGRAM 2006 PAP SMEAR 02/23/2008 02/22/2005, 07/19/2004 COLONOSCOPY 2016 Zoster Recombinant Vaccine 2016 (SHINGRIX) (1 of 2) INFLUENZA VACCINE 05/26/2019 HgA1C 08/07/2019 02/04/2019, 10/15/2004 CREATININE (SERUM) 02/13/2020 02/12/2019, 02/08/2019, 02/07/2019, Additional history exists documented as of this encounter Goals Goal Patient Goal Associated Recent Patient-Stated? Author Type Problems Progress Quit using Tobacco Use No Cornelia, tobacco Wondiful A, (cigarettes, MD smokeless, etc) documented as of this encounter Results Not on filedocumented in this encounter Visit Diagnoses Diagnosis Medication refill Issue of repeat prescriptions documented in this encounter Insurance Payer Benefit Plan / Subscriber ID Effective Dates Phone Address Type Group [facility] xxxxxxxxx 2018-Present Medicaid COMM PLAN - PLUS MANAGED MEDICAID documented as of this encounter
--- OUTSIDE RECORDS SUMMARY | 2019-05-15 01:27 | XMS REPORT ---
:1965 Author Organization [facility] Address [address] [place] [address] Care Team Providers Name Role Phone Unavailable Unavailable Unavailable Payers Payer Name Policy Type Policy Number Effective Date Expiration Date Problems This patient has no known problems. Allergies, Adverse Reactions, Alerts Allergy Name Allergy Status Severity Reaction(s) Onset Inactive Treating Comments Type Date Date Clinician Penicillins DA Active AR 2014-04 00:00:0 0 Medications This patient has no known medications. Results Test Description Test Time Test Comments Text Results Atomic Results Result Comments SURG 2018-12-10 RUN DATE: 16:14:00 12/10/18 [facility] - LAB *LIVE* PAGE 1 RUN TIME: 1614 Specimen Inquiry RUN USER: INTERFACE PATIENT: JO-ANN NUR LOC: ELI U #: [id number] AGE/SX: 53/F ROOM: [facility]: Bandar Roldan MD : 67 BED: DIS: STATUS: [facility] TLOC: SPEC #: [id number] RECD: 12/07/18 STATUS: CELY RE # : [id number] ABELINO: 12/06/[address] [facility] [address]: Bandar Roldan MD ENTERED: 12/07/18 SP TYPE: SURG OTHR DR: Mirtha Puckett ORDERED: AB/PAS MELLO, SURG PATH LVL /, PATH STAIN GROU COPIES TO: Mirtha Puckett [address] [address] Bandar Roldan MD [address] [address] HISTOLOGY: TISSUE ID BLK PCS BLANCHE LEV [...] CONTINUED ON NEXT PAGE RUN DATE: 12/10/18 [facility] - LAB *LIVE* PAGE 2 RUN TIME: 1614 Specimen Inquiry RUN USER: INTERFACE SPEC #: [id number] PATIENT: JO-ANN NUR #[id number] (Continued) CPT CODES CPT CODE(S): 24561F3 , 87202 , 54635 , , , , FINAL DIAGNOSIS A. [...] all as E. ba/nr Grossing performed at [facility] Pathology, [address], [address], [place] [address]. Salicylic Acid Blender: Laci Ross M.D. CONTINUED ON NEXT PAGE RUN DATE: 12/10/18 [facility] - LAB *LIVE* PAGE 3 RUN TIME: 1614 Specimen Inquiry RUN USER: INTERFACE SPEC #: [facility]:[id number] PATIENT: JO-ANN NUR #[id number] (Continued) MICROSCOPIC DESCRIPTION A. Jejunum biopsy. Sections [...] (test code=GLUBED) 167 mg/dL 70-110 UR HCG [id number] 16:27:00 Test Item Value Reference Range Comments UR HCG QUAL (test code=HCGQLU) NEGATIVE NEGATIVE
--- OUTSIDE RECORDS SUMMARY | 2019-05-15 01:27 | XMS REPORT | Clinical Summary ---
:1965 Author Organization [facility] Address [address] [place] [address] Care Team Providers Name Role Phone Unavailable [...] 05/24/2019 Appointment Cardiology Nela Stanton MD [address] [phone] 05/24/2019 Hospital Encounter Cardiology Nela Stanton MD [address] [phone] Results Not on fileafter 05/14/2018 Insurance Payer Benefit Plan / Subscriber ID Type Phone Address Group MEDICAID - MEDICAID [id number] xxxxxxxxx Medicaid Contracted MGD CARE PLAN [phone] [id number] (Work)
[2019-05-15] MEDS ORDERED: KETOROLAC 30 MG/ML INJ ONE (02:02)
[2019-05-15] MEDS ORDERED: ONDANSETRON 4 MG/2 ML VIAL ONE (02:02)
[2019-05-15] MEDS ORDERED: NA CHLORIDE 0.9% 1,000 ML ONE (02:02)
[2019-05-15] MEDS ORDERED: MORPHINE 2 MG/ML SYR ONE (02:02)
[2019-05-15 02:24] LABS: Absolute Lymphocytes (CBC) 2.2 K/uL (0.7-4.9); Basophils % 0.7 % (0-1.3); Hematocrit 34.8 % (36.0-45.0); Lymphocytes % 40.3 % (15.3-44.8); MPV 8.2 fL (7.6-11.3); RBC Red Blood Cell Count 4.54 M/uL (3.86-4.86)
[2019-05-15 02:40] LABS: ALT/SGPT 17 U/L (12-78); AST/SGOT 11 U/L (15-37); Alkaline Phosphatase 92 U/L (45-117); BUN Blood Urea Nitrogen 13 mg/dL (7-18); Bicarbonate 27 mmol/L (21-32); Bilirubin Total 0.2 mg/dL (0.2-1.0); Glucose Level 145 mg/dL (74-106); Potassium 3.8 mmol/L (3.5-5.1); Protein, Total 7.9 g/dL (6.4-8.2); Sodium Level 141 mmol/L (136-145); Troponin (Emerg Dept Use Only) < 0.02 ng/mL (0.0-0.045)
--- NOTE | 2019-05-15 02:50 | ER ---
Nurse's Notes [facility] Name: Kim Weldon Age: 53 yrs Sex: Female : 1965 Arrival Date: 05/15/2019 Time: 01:27 Bed 15 Private MD: Susanna Stanley Diagnosis: Atypical facial pain;Fibromyalgia;Bipolar disorder;Dental caries, unspecified;Type 1 diabetes mellitus Presentation: 05/15 01:34 Presenting complaint: Patient states: right sided jaw, headache. pt seen on 05/03/19 for ak1 tooth pain has not followed up with dentist as of yet. pt taking clindamycin. Transition of care: patient was not received from another setting of care. Onset of symptoms is unknown. Risk Assessment: Do you want to hurt yourself or someone else? Patient reports no desire to harm self or others. Initial Sepsis Screen: Does the patient meet any 2 criteria? No. Patient's initial sepsis screen is negative. Does the patient have a suspected source of infection? No. Patient's initial sepsis screen is negative. Care prior to arrival: None. 01:34 Method Of Arrival: Ambulatory ak1 01:34 Acuity: ALFRED 4 ak1 Triage Assessment: 01:35 General: Appears in no apparent distress. Behavior is calm, cooperative. 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 N/A - Irregular menses jd3 Historical: - Allergies: 01:35 PENICILLINS; ak1 - Home Meds: 01:35 Advair Diskus Inhl 1 puff 2 times per day [Active]; Victoza 2-Mulugeta 0.6 mg/0.1 mL (18 ak1 mg/3 mL) subcutaneous pnij 0.2 mL once daily [Active]; Seroquel 400 mg Oral tab once daily [Active]; ProAir HFA 90 mcg/actuation inhalation HFAA 2 puffs every 4 hours [Active]; metformin 1,000 mg Oral tab [Active]; levothyroxine 25 mcg tab 1 tab once daily [Active]; Jardiance 10 mg Oral tab 1 tab once daily [Active]; gabapentin 100 mg Oral cap 3 times per day [Active]; Cymbalta 60 mg Oral cpDR 1 cap once daily [Active]; 01:38 ferrralet [Active]; pantoprazole 40 mg oral TbEC 1 tab once daily [Active]; metoprolol ak1 tartrate 25 mg Oral tab .5 tabs once daily [Active]; prasugrel oral 10mg oral 1 tab once daily [Active]; spironolactone 25 mg Oral tab 1 tab once daily [Active]; aspirin 81 mg Oral TbEC 1 tab once daily [Active]; Tramadol-Acetaminophen Oral [Active]; - PMHx: 01:35 Asthma; Bipolar disorder; scoliosis; mitral valve prolapse; Hypothyroidism; ak1 Hypertension; Fibromyalgia; Diabetes - IDDM; CHF; - PSHx: 01:35 Heart stents; ak1 - Immunization history:: Adult Immunizations unknown. - Social history:: Smoking status: Patient/guardian denies using tobacco. - Ebola Screening: : No symptoms or risks identified at this time. - Family history:: not pertinent. Screenin:46 Abuse screen: Denies threats or abuse. Nutritional screening: No deficits noted. jd3 Tuberculosis screening: No symptoms or risk factors identified. Fall Risk Ambulatory Aid- None/Bed Rest/Nurse Assist (0 pts). Gait- Normal/Bed Rest/Wheelchair (0 pts) Mental Status- Oriented to own ability (0 pts). Total Nichole Fall Scale indicates No Risk (0-24 pts). Assessment: 01:43 General: Appears in no apparent distress. uncomfortable, Behavior is calm, cooperative, jd3 appropriate for age. Pain: Complains of pain in mouth and right jaw Quality of pain is described as sharp, shooting. Neuro: Level of Consciousness is awake, alert, obeys commands, Oriented to person, place, time, situation. Cardiovascular: Denies chest pain, Capillary refill < 3 seconds Patient's skin is warm and dry. Respiratory: Airway is patent Respiratory effort is even, unlabored, Respiratory pattern is regular, symmetrical, Denies cough, shortness of breath. GI: No signs and/or symptoms were reported involving the gastrointestinal system. : No signs and/or symptoms were reported regarding the genitourinary system. EENT: pt reporting pain to right jaw. Derm: Skin is intact, Skin is dry, Skin is normal, Skin temperature is warm. Musculoskeletal: Circulation, motion, and sensation intact. Range of motion: intact in all extremities. 02:45 Reassessment: Patient appears in no apparent distress at this time. Patient and/or jd3 family updated on plan of care and expected duration. Pain level reassessed. Patient is alert, oriented x 3, equal unlabored respirations, skin warm/dry/pink. Patient states feeling better. 03:44 Reassessment: Patient appears in no apparent distress at this time. Patient and/or jd3 family updated on plan of care and expected duration. Pain level reassessed. Patient is alert, oriented x 3, equal unlabored respirations, skin warm/dry/pink. reported understanding of discharge instructions. even and steady gait upon discharge. Vital Signs: 01:35 BP 146 / 77; Pulse 74; Resp 20; Temp 97.6; Pulse Ox 97% on R/A; Weight 88.45 kg (R); ak1 Height 5 ft. 4 in. (162.56 cm) (R); Pain 10/10; 03:41 BP 128 / 87; Pulse 75; Resp 17 S; Pulse Ox 100% on R/A; jd3 01:35 Body Mass Index 33.47 (88.45 kg, 162.56 cm) ak1 ED Course: 01:27 Patient arrived in ED. am2 01:27 Lucius Mike MD is Private Physician. am2 01:28 Susanna Stanley MD is Private Physician. am2 01:34 Triage completed. ak1 01:35 Arm band placed on Patient placed in an exam room, on a stretcher, on pulse oximetry, ak1 Patient notified of wait time. 01:42 Khanh Johnson MD is Attending Physician. ashley 01:42 Parish Castle, RN is Primary Nurse. jd3 01:47 Patient has correct armband on for positive identification. Bed in low position. Call jd3 light in reach. Side rails up X 1. 02:10 Initial lab(s) drawn, by tx, sent to lab. Inserted saline lock: 22 gauge in left lt1 antecubital area, using aseptic technique. 02:31 EKG done, by ED staff. lt1 02:44 Susanna Stanley MD is Referral Physician. ashley 02:49 Ashish Yepez DDS is Referral Physician. ashley 03:41 No provider procedures requiring assistance completed. IV discontinued, intact, jd3 bleeding controlled, No redness/swelling at site. Pressure dressing applied. Administered Medications: 02:15 Drug: NS 0.9% 1000 ml Route: IV; Rate: 125 ml/hr; Site: left antecubital; jd3 03:45 Follow up: Response: No adverse reaction; IV Status: Order to discontinue infusion jd3 02:15 Drug: Zofran 4 mg Route: IVP; Site: left antecubital; jd3 03:15 Follow up: Response: No adverse reaction jd3 02:15 Drug: morphine 2 mg Route: IVP; Site: left antecubital; jd3 03:24 Follow up: Response: No adverse reaction; RASS: Alert and Calm (0) jd3 02:15 Drug: TORadol 30 mg Route: IVP; Site: left antecubital; jd3 03:15 Follow up: Response: No adverse reaction jd3 03:23 Not Given (Duplicate Order): morphine 2 mg IVP once; RASS on ADMIN: Combtv4, Very jd3 Agttd3, Agttd2, Rstlss1, AlertClm0, Drwsy-1, Lt Sdtn-2, Mod Sdtn-3, Dp Sdtn-4, UnArsble-5 03:30 Drug: Rocephin 1 grams Route: IV; Rate: per protocol; Site: left antecubital; jd3 03:40 Follow up: Response: No adverse reaction; IV Status: Completed infusion; IV Intake: 26sfoh6 Intake: 03:40 IV: 10ml; Total: 10ml. jd3 Outcome: 02:50 Discharge ordered by MD. ramirez 03:41 Discharged to home ambulatory, with family. jd3 03:41 Condition: stable 03:41 Discharge instructions given to patient, Instructed on discharge instructions, follow up and referral plans. medication usage, Demonstrated understanding of instructions, follow-up care, medications, Prescriptions given X 3. 03:45 Patient left the ED. jd3 Signatures: Khanh Johnson MD MD cha Krenek, Amber RN RN tina1 Gloria Covington Jonathon, RN RN trippd3 Juliana Byrne lt1 Corrections: (The following items were deleted from the chart) 03:24 03:15 Response: No adverse reaction jd3 jd3
--- NOTE | 2019-05-15 02:51 | EDPHYS ---
Physician Documentation [facility] Name: Kim Weldon Age: 53 yrs Sex: Female : 1965 Arrival Date: 05/15/2019 Time: 01:27 Bed 15 Private MD: Susanna Stanley ED Physician Khanh Johnson HPI: 05/15 01:53 This 53 yrs old Female presents to ER via Ambulatory with complaints of Facial ashley pain. 01:53 The patient or guardian reports pain, tenderness. The complaints affect the right ashley cheek, right ear, right adventism and right jaw. Context of injury: The problem was sustained at an unknown location. Onset: The symptoms/episode began/occurred 2 day(s) ago. Associated signs and symptoms: The patient has no apparent associated signs or symptoms. Severity of symptoms: At their worst the symptoms were moderate, in the emergency department the symptoms are unchanged. 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 - Irregular menses jd3 Historical: - Allergies: 01:35 PENICILLINS; ak1 - Home Meds: 01:35 Advair Diskus Inhl 1 puff 2 times per day [Active]; Victoza 2-Mulugeta 0.6 mg/0.1 mL (18 ak1 mg/3 mL) subcutaneous pnij 0.2 mL once daily [Active]; Seroquel 400 mg Oral tab once daily [Active]; ProAir HFA 90 mcg/actuation inhalation HFAA 2 puffs every 4 hours [Active]; metformin 1,000 mg Oral tab [Active]; levothyroxine 25 mcg tab 1 tab once daily [Active]; Jardiance 10 mg Oral tab 1 tab once daily [Active]; gabapentin 100 mg Oral cap 3 times per day [Active]; Cymbalta 60 mg Oral cpDR 1 cap once daily [Active]; 01:38 ferrralet [Active]; pantoprazole 40 mg oral TbEC 1 tab once daily [Active]; metoprolol ak1 tartrate 25 mg Oral tab .5 tabs once daily [Active]; prasugrel oral 10mg oral 1 tab once daily [Active]; spironolactone 25 mg Oral tab 1 tab once daily [Active]; aspirin 81 mg Oral TbEC 1 tab once daily [Active]; Tramadol-Acetaminophen Oral [Active]; - PMHx: 01:35 Asthma; Bipolar disorder; scoliosis; mitral valve prolapse; Hypothyroidism; ak1 Hypertension; Fibromyalgia; Diabetes - IDDM; CHF; - PSHx: 01:35 Heart stents; ak1 - Immunization history:: Adult Immunizations unknown. - Social history:: Smoking status: Patient/guardian denies using tobacco. - Ebola Screening: : No symptoms or risks identified at this time. - Family history:: not pertinent. ROS: 01:53 Constitutional: Negative for fever, chills, and weight loss, Eyes: Negative for injury, ashley pain, redness, and discharge, Neck: Negative for injury, pain, and swelling, Cardiovascular: Negative for chest pain, palpitations, and edema, Respiratory: Negative for shortness of breath, cough, wheezing, and pleuritic chest pain, Abdomen/GI: Negative for abdominal pain, nausea, vomiting, diarrhea, and constipation, Back: Negative for injury and pain, : Negative for injury, bleeding, discharge, and swelling, MS/Extremity: Negative for injury and deformity, Skin: Negative for injury, rash, and discoloration, Neuro: Negative for headache, weakness, numbness, tingling, and seizure, Psych: Negative for depression, anxiety, suicide ideation, homicidal ideation, and hallucinations, Allergy/Immunology: Negative for hives, rash, and allergies, Endocrine: Negative for neck swelling, polydipsia, polyuria, polyphagia, and marked weight changes, Hematologic/Lymphatic: Negative for swollen nodes, abnormal bleeding, and unusual bruising. 01:53 ENT: Positive for dental pain. Exam: 01:53 Constitutional: This is a well developed, well nourished patient who is awake, alert, ashlye and in no acute distress. Eyes: Pupils equal round and reactive to light, extra-ocular motions intact. Lids and lashes normal. Conjunctiva and sclera are non-icteric and not injected. Cornea within normal limits. Periorbital areas with no swelling, redness, or edema. ENT: Nares patent. No nasal discharge, no septal abnormalities noted. Tympanic membranes are normal and external auditory canals are clear. Oropharynx with no redness, swelling, or masses, exudates, or evidence of obstruction, uvula midline. Mucous membranes moist. Neck: Trachea midline, no thyromegaly or masses palpated, and no cervical lymphadenopathy. Supple, full range of motion without nuchal rigidity, or vertebral point tenderness. No Meningismus. Chest/axilla: Normal chest wall appearance and motion. Nontender with no deformity. No lesions are appreciated. Cardiovascular: Regular rate and rhythm with a normal S1 and S2. No gallops, murmurs, or rubs. Normal PMI, no JVD. No pulse deficits. Respiratory: Lungs have equal breath sounds bilaterally, clear to auscultation and percussion. No rales, rhonchi or wheezes noted. No increased work of breathing, no retractions or nasal flaring. Abdomen/GI: Soft, non-tender, with normal bowel sounds. No distension or tympany. No guarding or rebound. No evidence of tenderness throughout. Back: No spinal tenderness. No costovertebral tenderness. Full range of motion. MS/ Extremity: Pulses equal, no cyanosis. Neurovascular intact. Full, normal range of motion. Neuro: Awake and alert, GCS 15, oriented to person, place, time, and situation. Cranial nerves II-XII grossly intact. Motor strength 5/5 in all extremities. Sensory grossly intact. Cerebellar exam normal. Normal gait. Psych: Awake, alert, with orientation to person, place and time. Behavior, mood, and affect are within normal limits. 01:53 Head/face: Noted is tenderness, that is moderate, of the right cheek, right ear, right adventism and right jaw. Vital Signs: 01:35 BP 146 / 77; Pulse 74; Resp 20; Temp 97.6; Pulse Ox 97% on R/A; Weight 88.45 kg (R); ak1 Height 5 ft. 4 in. (162.56 cm) (R); Pain 10/10; 03:41 BP 128 / 87; Pulse 75; Resp 17 S; Pulse Ox 100% on R/A; jd3 01:35 Body Mass Index 33.47 (88.45 kg, 162.56 cm) ak1 MDM: 01:42 Patient medically screened. [facility] 01:57 Data reviewed: vital signs, nurses notes, lab test result(s), EKG. [facility] 05/15 01:51 Order name: CBC with Diff [facility] 05/15 01:51 Order name: Comprehensive Metabolic Panel; Complete Time: 02:43 [facility] 05/15 01:51 Order name: Troponin (emerg Dept Use Only); Complete Time: 02:43 [facility] 05/15 01:51 Order name: Sed Rate [facility] 05/15 01:51 Order name: EKG; Complete Time: 01:53 [facility] 05/15 01:51 Order name: EKG - Nurse/Tech; Complete Time: 02:25 [facility] 05/15 01:56 Order name: IV; Complete Time: 02:11 jd3 Administered Medications: 02:15 Drug: NS 0.9% 1000 ml Route: IV; Rate: 125 ml/hr; Site: left antecubital; jd3 03:45 Follow up: Response: No adverse reaction; IV Status: Order to discontinue infusion jd3 02:15 Drug: Zofran 4 mg Route: IVP; Site: left antecubital; jd3 03:15 Follow up: Response: No adverse reaction jd3 02:15 Drug: morphine 2 mg Route: IVP; Site: left antecubital; jd3 03:24 Follow up: Response: No adverse reaction; RASS: Alert and Calm (0) jd3 02:15 Drug: TORadol 30 mg Route: IVP; Site: left antecubital; jd3 03:15 Follow up: Response: No adverse reaction jd3 03:23 Not Given (Duplicate Order): morphine 2 mg IVP once; RASS on ADMIN: Combtv4, Very jd3 Agttd3, Agttd2, Rstlss1, AlertClm0, Drwsy-1, Lt Sdtn-2, Mod Sdtn-3, Dp Sdtn-4, UnArsble-5 03:30 Drug: Rocephin 1 grams Route: IV; Rate: per protocol; Site: left antecubital; jd3 03:40 Follow up: Response: No adverse reaction; IV Status: Completed infusion; IV Intake: [id number] Disposition: 05/15/19 02:50 Discharged to Home. Impression: Atypical facial pain, Fibromyalgia, Bipolar disorder, Dental caries, unspecified, Type 1 diabetes mellitus. - Condition is Stable. - Discharge Instructions: Dental Pain, Type 1 Diabetes Mellitus, Diagnosis, Adult, Myofascial Pain Syndrome and Fibromyalgia, Bipolar Disorder, Dental Pain, Yoeo-uy-Kbhd, Type 1 Diabetes Mellitus, Self Care, Adult, Type 1 Diabetes Mellitus, Diagnosis, Adult, Goos-dz-Gdnp, Type 1 Diabetes Mellitus, Self Care, Adult, Tzne-of-Xgyy. - Prescriptions for Ibuprofen 600 mg Oral Tablet - take 1 tablet by ORAL route every 8 hours As needed take with food; 21 tablet. Keflex 500 mg Oral Capsule - take 1 capsule by ORAL route every 6 hours for 7 days; 28 capsule. Tylenol- Codeine #3 300-30 mg Oral Tablet - take 2 tablets by ORAL route every 6 hours As needed; 20 tablet. - Medication Reconciliation Form, Thank You Letter, Antibiotic Education, Prescription Opioid Use form. - Follow up: Susanan Stanley MD; When: 2 - 3 days; Reason: Recheck today's complaints, Continuance of care, Re-evaluation by your physician. Follow up: Ashish Yepez DDS; When: 2 - 3 days; Reason: Recheck today's complaints, Re-evaluation by your physician. - Problem is new. - Symptoms have improved. Signatures: Dispatcher [employer] EDKhanh Mitchell MD MD cha Krenek, Amber RN RN ak1 [place] RN RN jd3 Corrections: (The following items were deleted from the chart) 02:51 02:50 05/15/2019 02:50 Discharged to Home. Impression: Atypical facial pain. Condition ashley is Stable. Forms are Medication Reconciliation Form, Thank You Letter, Antibiotic Education, Prescription Opioid Use. Follow up: Susanna Stanley; When: 2 - 3 days; Reason: Recheck today's complaints, Continuance of care, Re-evaluation by your physician. Follow up: Ashish Yepez; When: 2 - 3 days; Reason: Recheck today's complaints, Re-evaluation by your physician. Problem is new. Symptoms have improved. ashley 02:55 02:51 05/15/2019 02:50 Discharged to Home. Impression: Atypical facial pain; ashley Fibromyalgia; Bipolar disorder. Condition is Stable. Forms are Medication Reconciliation Form, Thank You Letter, Antibiotic Education, Prescription Opioid Use. Follow up: Susanna Stanley; When: 2 - 3 days; Reason: Recheck today's complaints, Continuance of care, Re-evaluation by your physician. Follow up: Ashish Yepez; When: 2 - 3 days; Reason: Recheck today's complaints, Re-evaluation by your physician. Problem is new. Symptoms have improved. ashley 02:55 02:55 05/15/2019 02:50 Discharged to Home. Impression: Atypical facial pain; ashley Fibromyalgia; Bipolar disorder; Dental caries, unspecified. Condition is Stable. Discharge Instructions: Myofascial Pain Syndrome and Fibromyalgia, Bipolar Disorder, Dental Pain, Dental Pain, Rvbl-dm-Yhzt. Prescriptions for Ibuprofen 600 mg Oral Tablet - take 1 tablet by ORAL route every 8 hours As needed take with food; 21 tablet, Keflex 500 mg Oral Capsule - take 1 capsule by ORAL route every 6 hours for 7 days; 28 capsule, Tylenol-Codeine #3 300-30 mg Oral Tablet - take 2 tablets by ORAL route every 6 hours As needed; 20 tablet. and Forms are Medication Reconciliation Form, Thank You Letter, Antibiotic Education, Prescription Opioid Use. Follow up: Susanna Stanley; When: 2 - 3 days; Reason: Recheck today's complaints, Continuance of care, Re-evaluation by your physician. Follow up: Ashish Yepez; When: 2 - 3 days; Reason: Recheck today's complaints, Re-evaluation by your physician. Problem is new. Symptoms have improved. [facility] 03:45 02:55 05/15/2019 02:50 Discharged to Home. Impression: Atypical facial pain; jd3 Fibromyalgia; Bipolar disorder; Dental caries, unspecified; Type 1 diabetes mellitus. Condition is Stable. Discharge Instructions: Myofascial Pain Syndrome and Fibromyalgia, Bipolar Disorder, Dental Pain, Dental Pain, Pmsr-cc-Vbho. Prescriptions for Ibuprofen 600 mg Oral Tablet - take 1 tablet by ORAL route every 8 hours As needed take with food; 21 tablet, Keflex 500 mg Oral Capsule - take 1 capsule by ORAL route every 6 hours for 7 days; 28 capsule, Tylenol-Codeine #3 300-30 mg Oral Tablet - take 2 tablets by ORAL route every 6 hours As needed; 20 tablet. and Forms are Medication Reconciliation Form, Thank You Letter, Antibiotic Education, Prescription Opioid Use. Follow up: Susanna Stanley; When: 2 - 3 days; Reason: Recheck today's complaints, Continuance of care, Re-evaluation by your physician. Follow up: Ashish Yepez; When: 2 - 3 days; Reason: Recheck today's complaints, Re-evaluation by your physician. Problem is new. Symptoms have improved. [facility]
[2019-05-15] MEDS ORDERED: CEFTRIAXONE/SWI 1gm 1 GM/10 ML SYR ONE (03:26)
[2019-05-15 04:24] VITALS: TEMP 97.6
[2019-05-15 04:26] VITALS: BP 128/87; O2SAT 100
[2019-05-15 04:40] LABS: Blood Morphology Comment NOT SEEN (NOT SEEN); Platelet Estimate ADEQ; Urine White Blood Cell Casts OK
--- NOTE | 2019-05-15 07:43 | EKG ---
Test Date: 2019-05-15 Test Time: 02:27:09 Rn Security: CHAO MEASUREMENT RESULTS: Intervals: Rate: 61 TN: 118 QRSD: 78 QT: 444 QTc: 446 [place]: P: 35 TN: 118 QRS: 55 T: 33 INTERPRETIVE STATEMENTS: Sinus rhythm with premature atrial complexes Otherwise normal ECG Compared to ECG 12/21/2018 17:52:08 Atrial premature complex(es) now present Myocardial infarct finding no longer present Electronically Signed On 05-15-19 07:42:47 CDT by Alex Trevino
== END 2019-05-15 03:45 | disposition home or self-care (01) ==
LOC: ER 01:24
DX: M79.7 Fibromyalgia (principal); F31.9 Bipolar disorder, unspecified; E10.8 Type 1 diabetes mellitus with unspecified complications; K02.9 Dental caries, unspecified
CPT/HCPCS: 93005; 85025; 36415; 85652; 84484; 80053; J2270; J0696; J7030; J2405; 96361; 96374; 96375; 99284

== ENCOUNTER 2019-05-21 19:39 | Emergency (ER) | payer OTHER ==
--- OUTSIDE RECORDS SUMMARY | 2019-05-21 19:42 | XMS REPORT ---
:1965 [facility] Address [address] [place] [address] Care Team Providers Name Role Phone Unavailable Unavailable Unavailable Payers Payer Name Policy Type Policy Number Effective Date Expiration Date Problems This patient has no known problems. Allergies, Adverse Reactions, Alerts Allergy Name Allergy Status Severity Reaction(s) Onset Inactive Treating Comments Type Date Date Clinician Penicillins DA Active AL 2014-04 00:00:0 0 Medications This patient has no known medications. Results Test Description Test Time Test Comments Text Results Atomic Results Result Comments SURG 2018-12-10 RUN DATE: 16:14:00 12/10/18 [facility] - LAB *LIVE* PAGE 1 RUN TIME: 1614 Specimen Inquiry RUN USER: INTERFACE PATIENT: JO-ANN NUR LOC: ELI U #: [id number] AGE/SX: 53/F ROOM: RE12/06/18[facility] DR: Bandar Roldan MD : 67 BED: DIS: STATUS: [facility] TLOC: SPEC #: [id number] RECD: 12/07/18 STATUS: CELY RE # : [id number] ABELINO: 12/06/[address] [facility] [address]: Bandar Roldan MD ENTERED: 12/07/18 SP TYPE: SURG OTHR DR: Mirtha Puckett ORDERED: AB/PAS MELLO, SURG PATH LVL /, PATH STAIN GROU COPIES TO: Mirtha Puckett [address] [id number] Bandar Roldan MD [address] [address] HISTOLOGY: TISSUE ID [id number] PCS BLANCHE LEV [...] CONTINUED ON NEXT PAGE RUN DATE: 12/10/18 [facility] - LAB *LIVE* PAGE 2 RUN TIME: 1614 Specimen Inquiry RUN USER: INTERFACE SPEC #: [id number] PATIENT: JO-ANN NUR #[id number] (Continued) CPT CODES CPT CODE(S): 24190T6 , 43269 , 79853 , , , , FINAL DIAGNOSIS A. [...] all as E. ba/nr Grossing performed at [facility] Pathology, [address], [address], [place] [address]. Regional Sales Trainer: Laci Ross M.D. CONTINUED ON NEXT PAGE RUN DATE: 12/10/18 [facility] - LAB *LIVE* PAGE 3 RUN TIME: 1614 Specimen Inquiry RUN USER: INTERFACE SPEC #: [facility]:[id number] PATIENT: JO-ANN NUR #[id number] (Continued) MICROSCOPIC DESCRIPTION A. Jejunum biopsy. Sections [...] (test code=GLUBED) 167 mg/dL 70-110 UR HCG [id number] 16:27:00 Test Item Value Reference Range Comments UR HCG QUAL (test code=HCGQLU) NEGATIVE NEGATIVE
--- OUTSIDE RECORDS SUMMARY | 2019-05-21 19:42 | XMS REPORT | Clinical Summary ---
:1965 Author Organization [facility] Address [address] [place] [address] Care Team Providers Name Role Phone Unavailable Primary Care Provider Unavailable Allergies Not on File Medications Not on file Active Problems Not on file Encounters Date Type Specialty Care Team Description 05/21/2019 Outside Orders Central Scheduling Nela Stanton Nonrheumatic mitral MD Cynthia valve prolapse (Primary Dx) after 05/20/2018 Social History Tobacco Use Types Packs/Day Years [...] 05/24/2019 Appointment Cardiology Nela Stanton MD [address] [address] [phone] 05/24/2019 Hospital Encounter Cardiology Nela Stanton MD [address] [id number] Results Not on fileafter 05/20/2018 Insurance Payer Benefit Plan / Subscriber ID Type Phone Address Group MEDICAID - MEDICAID [facility] COMM STAR xxxxxxxxx Medicaid Contracted [employer] C[employer] PLAN Guarantor Name Account Type Relation to Date of Phone Billing Patient Address Kim Weldon Personal/Family Self 1965 [address] (Home) [place] [phone] (Work)
[2019-05-21 21:06] VITALS: BP 138/74; TEMP 98.6; O2SAT 100
--- NOTE | 2019-05-21 21:08 | EDPHYS ---
Physician Documentation [facility] Name: Kim Weldon Age: 53 yrs Sex: Female : 1965 Arrival Date: 05/21/2019 Time: 19:42 Bed 30 Private MD: Susanna Stanley ED Physician Javid Chase HPI: 05/21 20:46 This 53 yrs old Female presents to ER via Ambulatory with complaints of Other, gs Head pain. 20:46 The patient presents with pain. The problem is located in the lower right first molar. gs Onset: The symptoms/episode began/occurred 3 week(s) ago. Duration: The symptoms are intermittent. Associated signs and symptoms: Pertinent negatives: fever, swelling. Severity of symptoms: At their worst the symptoms were severe, in the emergency department the symptoms are unchanged. The patient has experienced similar episodes in the past, multiple times. Historical: - Allergies: 19:58 PENICILLINS; la1 - PMHx: 19:58 Asthma; Bipolar disorder; CHF; Diabetes - IDDM; Fibromyalgia; Hypertension; la1 Hypothyroidism; mitral valve prolapse; scoliosis; - Immunization history:: Adult Immunizations up to date. - Social history:: Smoking status: Patient/guardian denies using tobacco. - Ebola Screening: : No symptoms or risks identified at this time. ROS: 20:46 All other systems are negative. gs Exam: 20:46 Head/Face: Normocephalic, atraumatic. Eyes: Pupils equal round and reactive to light, gs extra-ocular motions intact. Lids and lashes normal. Conjunctiva and sclera are non-icteric and not injected. Cornea within normal limits. Periorbital areas with no swelling, redness, or edema. ENT: Nares patent. No nasal discharge, no septal abnormalities noted. Tympanic membranes are normal and external auditory canals are clear. Oropharynx with no redness, swelling, or masses, exudates, or evidence of obstruction, uvula midline. Mucous membranes moist. Neck: Trachea midline, no thyromegaly or masses palpated, and no cervical lymphadenopathy. Supple, full range of motion without nuchal rigidity, or vertebral point tenderness. No Meningismus. Chest/axilla: Normal chest wall appearance and motion. Nontender with no deformity. No lesions are appreciated. Cardiovascular: Regular rate and rhythm with a normal S1 and S2. No gallops, murmurs, or rubs. Normal PMI, no JVD. No pulse deficits. Respiratory: Lungs have equal breath sounds bilaterally, clear to auscultation and percussion. No rales, rhonchi or wheezes noted. No increased work of breathing, no retractions or nasal flaring. Abdomen/GI: Soft, non-tender, with normal bowel sounds. No distension or tympany. No guarding or rebound. No evidence of tenderness throughout. Back: No spinal tenderness. No costovertebral tenderness. Full range of motion. Skin: Warm, dry with normal turgor. Normal color with no rashes, no lesions, and no evidence of cellulitis. MS/ Extremity: Pulses equal, no cyanosis. Neurovascular intact. Full, normal range of motion. Neuro: Awake and alert, GCS 15, oriented to person, place, time, and situation. Cranial nerves II-XII grossly intact. Motor strength 5/5 in all extremities. Sensory grossly intact. Cerebellar exam normal. Normal gait. 20:46 Constitutional: The patient appears alert, awake. Vital Signs: 19:58 BP 138 / 74; Pulse 72; Resp 16; Temp 98.6; Pulse Ox 100% on R/A; Weight 77.11 kg; la1 Height 5 ft. 4 in. (162.56 cm); 19:58 Body Mass Index 29.18 (77.11 kg, 162.56 cm) la1 MDM: 20:31 Patient medically screened. gs 20:46 Response to treatment: There is no appreciated change of the patient's symptoms at this gs time. ED course: DENTAL EXAM LOOKS NORMAL NO SWELLING CLAIMS SOME TENDERNESS LATER GUM LEFT MANDIBLE.. Administered Medications: No medications were administered Disposition: 05/21/19 20:49 Discharged to Home. Impression: Encounter for screening, unspecified. - Condition is Stable. - Medication Reconciliation Form, Thank You Letter, Antibiotic Education, Prescription Opioid Use form. - Follow up: Private Physician; When: 2 - 3 days; Reason: Re-evaluation by your physician. Signatures: Rico Lott RN RN la1 Javid Chase MD MD Rodolfo Block RN RN rv Corrections: (The following items were deleted from the chart) 20:51 20:49 05/21/2019 20:49 Discharged to Home. Impression: Encounter for screening, rv unspecified. Condition is Stable. Forms are Medication Reconciliation Form, Thank You Letter, Antibiotic Education, Prescription Opioid Use. Follow up: Private Physician; When: 2 - 3 days; Reason: Re-evaluation by your physician. gs
--- NOTE | 2019-05-21 21:08 | ER ---
Nurse's Notes [facility] Name: Kim Weldon Age: 53 yrs Sex: Female : 1965 Arrival Date: 05/21/2019 Time: 19:42 Bed 30 Private MD: Susanna Stanley Diagnosis: Encounter for screening, unspecified Presentation: 05/21 19:57 Presenting complaint: Patient states: I am having dental pain and they would not give la1 me pain medicine till they clear it with my doctor and I could not stand the pain anymore. Transition of care: patient was not received from another setting of care. Onset of symptoms was May 21, 2019. Risk Assessment: Do you want to hurt yourself or someone else? Patient reports no desire to harm self or others. Initial Sepsis Screen: Does the patient meet any 2 criteria? No. Patient's initial sepsis screen is negative. Does the patient have a suspected source of infection? No. Patient's initial sepsis screen is negative. Care prior to arrival: None. 19:57 Method Of Arrival: Ambulatory la1 19:57 Acuity: ALFRED 5 la1 Historical: - Allergies: 19:58 PENICILLINS; la1 - PMHx: 19:58 Asthma; Bipolar disorder; CHF; Diabetes - IDDM; Fibromyalgia; Hypertension; la1 Hypothyroidism; mitral valve prolapse; scoliosis; - Immunization history:: Adult Immunizations up to date. - Social history:: Smoking status: Patient/guardian denies using tobacco. - Ebola Screening: : No symptoms or risks identified at this time. Screenin:49 Abuse screen: Denies threats or abuse. Denies injuries from another. Nutritional rv screening: No deficits noted. Tuberculosis screening: No symptoms or risk factors identified. Fall Risk None identified. Assessment: 20:48 General: Appears in no apparent distress. uncomfortable, Behavior is cooperative. Pain: rv Complains of pain in lower right first molar. Neuro: Level of Consciousness is awake, alert, obeys commands, Oriented to person, place, time, situation. Cardiovascular: Patient's skin is warm and dry. Respiratory: Airway is patent. GI: No signs and/or symptoms were reported involving the gastrointestinal system. : No signs and/or symptoms were reported regarding the genitourinary system. EENT: No signs and/or symptoms were reported regarding the EENT system. Derm: Skin is intact. Musculoskeletal: No signs and/or symptoms reported regarding the musculoskeletal system. Vital Signs: 19:58 BP 138 / 74; Pulse 72; Resp 16; Temp 98.6; Pulse Ox 100% on R/A; Weight 77.11 kg; la1 Height 5 ft. 4 in. (162.56 cm); 19:58 Body Mass Index 29.18 (77.11 kg, 162.56 cm) la1 ED Course: 19:42 Patient arrived in ED. mr 19:43 Susanna Stanley MD is Private Physician. mr 19:58 Triage completed. la1 19:59 Arm band placed on right wrist. la1 20:19 Javid Chase MD is Attending Physician. 20:48 Rodolfo Block, LILIAN is Primary Nurse. rv 20:49 Patient has correct armband on for positive identification. Bed in low position. Call rv light in reach. 20:50 No provider procedures requiring assistance completed. Patient did not have IV access rv during this emergency room visit. Administered Medications: No medications were administered Outcome: 20:49 Discharge ordered by . gs 20:50 Medical screen evaluation completed per provider. Patient declined treatment. rv 20:50 Condition: unchanged 20:51 Patient left the ED. rv Signatures: Fernanda Lnada Lee, RN RN [facility] Javid Chase MD MD Rodolfo Block RN RN rv
== END 2019-05-21 20:51 | disposition home or self-care (01) ==
LOC: ER 19:39
DX: Z13.9 Encounter for screening, unspecified (principal); I10 Essential (primary) hypertension; Z88.0 Allergy status to penicillin
CPT/HCPCS: 99281

== ENCOUNTER 2019-08-07 20:11 | Emergency (ER) | payer OTHER ==
--- OUTSIDE RECORDS SUMMARY | 2019-08-07 20:13 | XMS REPORT | Summary of Care ---
:1965 Author Organization [facility] - [facility] Address [address] [place] [id number] Care Team Providers Name Role Phone Crystal Locke MD Primary Care Provider Reason for Visit Reason Comments Follow-up Encounter Details Date Type Department Care Team Description 05/24/2019 Telephone [facility] Cardiology- Josue Rice MD Follow-up [address] [id number] [place] [address] [place] [id number] Allergies Active Allergy Reactions Severity Noted Date Comments Penicillin Hives 01/10/2019 documented as of this encounter (statuses as of 05/29/2019) Medications Medication Sig Dispensed Refills Start Date End Date Status Iron, Cbn & Take 1 tablet by 30 tablet 5 01/23/2019 Active [id number]-[id number]-[id number] mouth daily. (FERRALET 90 DUAL-IRON DELIVERY) 90-1-12-50 ux-zj-yxz-mg per tabletIndications: Iron deficiency anemia due to chronic blood loss, B12 deficiency liraglutide (VICTOZA inject 1.8 mg 9 mL 02/01/2019 Active 3-SANDRA) 0.6 mg/0.1 mL under the skin (18 mg/3 mL) daily. injectionIndications: Type 2 diabetes mellitus with complication, unspecified whether group home insulin use metFORMIN 1,000 mg TK 1 T PO BID 60 tablet 5 02/01/2019 Active tabletIndications: Type 2 diabetes mellitus with complication, unspecified whether group home insulin use aspirin 81 mg Take [...] 2 diabetes mellitus with complication, unspecified whether terminal make up operator insulin use atorvastatin 40 mg Take 1 tablet by 30 tablet 5 03/07/2019 Active tabletIndications: mouth at Rheumatic mitral bedtime. stenosis, Coronary artery disease involving [place] coronary artery of [place] heart with angina pectoris budesonide-formoterol INL 2 [...] as of this encounter (statuses as of 05/29/2019) Active Problems Problem Noted Date Elevated lipase 03/27/2019 Thrombocytosis 03/27/2019 CHF exacerbation 02/04/2019 Acute on chronic diastolic congestive heart failure 02/04/2019 Rheumatic mitral stenosis 02/04/2019 Pulmonary hypertension 02/04/2019 HORTENCIA on CPAP 02/04/2019 Type 2 diabetes mellitus without complication, without long-term current 02/04 use of insulin Acquired hypothyroidism 01/10/2019 Anemia Anxiety Asthma Depression Bipolar disorder documented as of this encounter (statuses as of 05/29/2019) Social History Tobacco Use Types Packs/Day Years [...] 2016 (SHINGRIX) (1 of 2) INFLUENZA VACCINE (#1) 2019 HgA1C 08/07/2019 02/04/2019, 10/15/2004 CREATININE (SERUM) 02/13/2020 02/12/2019, 02/08/2019, 02/07/2019, Additional history exists documented as of this encounter Goals Goal Patient Goal Associated Recent Patient-Stated? Author Type Problems Progress Quit using Tobacco Use No Cornelia, tobacco Wondiful A, (cigarettes, MD smokeless, etc) documented as of this encounter Results Not on filedocumented in this encounter Insurance Payer Benefit Plan / Subscriber ID Effective Dates Phone Address Type Group [facility] xxxxxxxxx 2018-Present Medicaid COMM PLAN - PLUS MANAGED MEDICAID documented as of this encounter
--- OUTSIDE RECORDS SUMMARY | 2019-08-07 20:13 | XMS REPORT ---
:1965 Author Organization [facility] Address [address] [place] [address] Care Team Providers Name Role Phone Unavailable Unavailable Unavailable Payers Payer Name Policy Type Policy Number Effective Date Expiration Date Problems This patient has no known problems. Allergies, Adverse Reactions, Alerts Allergy Name Allergy Status Severity Reaction(s) Onset Inactive Treating Comments Type Date Date Clinician Penicillins DA Active NE 2014-04 00:00:0 0 Medications This patient has no known medications. Results Test Description Test Time Test Comments Text Results Atomic Results Result Comments SURG 2018-12-10 RUN DATE: 16:14:00 12/10/18 [facility] - LAB *LIVE* PAGE 1 RUN TIME: 1614 Specimen Inquiry RUN USER: INTERFACE PATIENT: JO-ANN NUR LOC: ELI U #: [id number] AGE/SX: 53/F ROOM: RE12/06/18[facility] DR: Bandar Roldan MD : 67 BED: DIS: STATUS: [facility] TLOC: SPEC #: [id number] RECD: 12/07/18 STATUS: CELY RE # : [id number] ABELINO: 12/06/[address] [facility] DR: Bandar Roldan MD ENTERED: 12/07/18 SP TYPE: SURG OTHR DR: Mirtha Puckett ORDERED: AB/PAS MELLO, SURG PATH LVL /, PATH STAIN GROU COPIES TO: Mirtha Puckett [address] [phone] Bandar Roldan MD [address] [place] [address] HISTOLOGY: TISSUE ID BLK PCS BLANCHE LEV [...] CONTINUED ON NEXT PAGE RUN DATE: 12/10/18 [facility] - LAB *LIVE* PAGE 2 RUN TIME: 1614 Specimen Inquiry RUN USER: INTERFACE SPEC #: [id number] PATIENT: JO-ANN NUR #[id number] (Continued) CPT CODES CPT CODE(S): 74589W4 , 52866 , 88396 , , , , FINAL DIAGNOSIS A. [...] all as E. ba/nr Grossing performed at [facility] Pathology, [address] [facility] [facility], [address], [place] [address]. Nuclear Radiologist: Laci Ross M.D. CONTINUED ON NEXT PAGE RUN DATE: 12/10/18 [facility] - LAB *LIVE* PAGE 3 RUN TIME: 1614 Specimen Inquiry RUN USER: INTERFACE SPEC #: [facility]:[id number] PATIENT: JO-ANN NUR #[id number] (Continued) MICROSCOPIC DESCRIPTION A. Jejunum biopsy. Sections [...] (test code=GLUBED) 167 mg/dL 70-110 UR HCG [id number] 16:27:00 Test Item Value Reference Range Comments UR HCG QUAL (test code=HCGQLU) NEGATIVE NEGATIVE
[2019-08-07] MEDS ORDERED: ONDANSETRON 4 MG/2 ML VIAL ONE (21:36)
[2019-08-07] MEDS ORDERED: NA CHLORIDE 0.9% 1,000 ML ONE (21:36)
[2019-08-07] MEDS ORDERED: FAMOTIDINE 20 MG/2 ML VIAL IV ONE (21:36)
[2019-08-07 22:24] LABS: Urine Blood NEGATIVE (NEG); Urine Glucose TRACE (NEG); Urine Protein 1+ (NEG); Urine Specific Gravity 1.025 (1.005-1.030)
[2019-08-07 22:27] LABS: Absolute Lymphocytes (CBC) 1.5 K/uL (0.7-4.9); Basophils % 0.2 % (0-1.3); Hematocrit 35.5 % (36.0-45.0); MPV 8.1 fL (7.6-11.3); RBC Red Blood Cell Count 4.18 M/uL (3.86-4.86)
[2019-08-07 22:29] LABS: Protime INR 0.96
[2019-08-07] MEDS ORDERED: ACETAMINOPHEN 500 MG TAB ONE (22:30)
[2019-08-07 22:46] LABS: ALT/SGPT 20 U/L (12-78); AST/SGOT 10 U/L (15-37); Albumin 4.2 g/dL (3.4-5.0); Alkaline Phosphatase 116 U/L (45-117); BUN Blood Urea Nitrogen 20 mg/dL (7-18); Bicarbonate 26 mmol/L (21-32); Bilirubin Direct 0.1 mg/dL (0-0.2); Bilirubin Total 0.3 mg/dL (0.2-1.0); Glucose Level 215 mg/dL (74-106); Lipase 177 U/L (73-393); Magnesium 1.8 mg/dL (1.8-2.4); NT PRO-BNP 80 pg/mL (<125); Protein, Total 8.4 g/dL (6.4-8.2); Sodium Level 139 mmol/L (136-145); Troponin (Emerg Dept Use Only) < 0.02 ng/mL (0.0-0.045)
[2019-08-08] MEDS ORDERED: CIPROFLOXACIN 400mg IV 400 MG/200 ML BAG IV ONE (00:32)
[2019-08-08] MEDS ORDERED: MORPHINE 4 MG/ML SYR ONE (00:32)
[2019-08-08] MEDS ORDERED: METRONIDAZOLE 500mg IVPB 500 MG/100 ML BAG IV ONE (00:32)
[2019-08-08] MEDS ORDERED: ONDANSETRON 4 MG/2 ML VIAL ONE (00:32)
--- NOTE | 2019-08-08 00:52 | ER ---
Nurse's Notes [facility] Name: Kim Weldon Age: 54 yrs Sex: Female : 1965 Arrival Date: 08/07/2019 Time: 20:15 Bed 19 Private MD: Diagnosis: Vomiting;Diarrhea, unspecified;Abdominal tenderness;Elevated white blood cell count;Type 1 diabetes mellitus Presentation: 08/07 20:23 Presenting complaint: Patient states: "I've been throwing up since Monday, today was aj1 the worst" Denies fever. Reports pain to umbilical area. Patient also reports diarrhea. Transition of care: patient was not received from another setting of care. Onset of symptoms was August 07, 2019. Risk Assessment: Do you want to hurt yourself or someone else? Patient reports no desire to harm self or others. Initial Sepsis Screen: Does the patient meet any 2 criteria? No. Patient's initial sepsis screen is negative. Does the patient have a suspected source of infection? No. Patient's initial sepsis screen is negative. Care prior to arrival: None. 20:23 Method Of Arrival: Ambulatory aj1 20:23 Acuity: ALFRED 3 aj1 Triage Assessment: 20:25 General: Appears in no apparent distress. comfortable, Behavior is calm, cooperative, aj1 appropriate for age. Pain: Pain currently is 6 out of 10 on a pain scale. Neuro: Level of Consciousness is awake, alert, obeys commands. Cardiovascular: Patient's skin is warm and dry. Respiratory: Airway is patent Respiratory effort is even, unlabored, Respiratory pattern is regular, symmetrical. GI: Reports diarrhea, vomiting. Historical: - Allergies: 20:25 PENICILLINS; aj1 - Home Meds: 20:25 Advair Diskus Inhl 1 puff 2 times per day [Active]; aspirin 81 mg Oral TbEC 1 tab once aj1 daily [Active]; Cymbalta 60 mg Oral cpDR 1 cap once daily [Active]; ferrralet [Active]; gabapentin 100 mg Oral cap 3 times per day [Active]; Jardiance 10 mg Oral tab 1 tab once daily [Active]; levothyroxine 25 mcg tab 1 tab once daily [Active]; metformin 1,000 mg Oral tab [Active]; metoprolol tartrate 25 mg Oral tab 0.5 tabs once daily [Active]; pantoprazole 40 mg Oral TbEC 1 tab once daily [Active]; prasugrel 10mg Oral 1 tab once daily [Active]; ProAir HFA 90 mcg/actuation inhalation HFAA 2 puffs every 4 hours [Active]; Seroquel 400 mg Oral tab once daily [Active]; spironolactone 25 mg Oral tab 1 tab once daily [Active]; Tramadol-Acetaminophen Oral [Active]; Victoza 2-M[place] 0.6 mg/0.1 mL (18 mg/3 mL) subcutaneous pnij 0.2 mL once daily [Active]; - PMHx: 20:25 Asthma; Bipolar disorder; CHF; Diabetes - IDDM; Fibromyalgia; Hypertension; aj1 Hypothyroidism; mitral valve prolapse; scoliosis; - Immunization history:: Flu vaccine is up to date. - Social history:: Smoking status: Patient/guardian denies using tobacco. - Ebola Screening: : Patient denies travel to an Ebola-affected area in the 21 days before illness onset. - Family history:: not pertinent. Screenin:00 Abuse screen: Denies threats or abuse. Denies injuries from another. Nutritional rr5 screening: No deficits noted. Tuberculosis screening: No symptoms or risk factors identified. Fall Risk IV access (20 points). Total Nichole Fall Scale indicates No Risk (0-24 pts). Assessment: 21:00 General: Appears in no apparent distress. uncomfortable, Behavior is calm, cooperative, rr5 appropriate for age. Pain: Complains of pain in abdomen Pain does not radiate. Pain currently is 6 out of 10 on a pain scale. Quality of pain is described as aching, Pain began gradually, Is intermittent. 21:00 Neuro: Level of Consciousness is awake, alert, obeys commands, Oriented to person, rr5 place, time, situation, Appropriate for age. Cardiovascular: Capillary refill < 3 seconds Patient's skin is warm and dry. Respiratory: Airway is patent Respiratory effort is even, unlabored, Respiratory pattern is regular, symmetrical. GI: Abdomen is round non-distended, Reports lower abdominal pain, upper abdominal pain, nausea, vomiting. : No signs and/or symptoms were reported regarding the genitourinary system. EENT: No signs and/or symptoms were reported regarding the EENT system. Derm: Skin is intact, Skin temperature is warm. Musculoskeletal: Circulation, motion, and sensation intact. Capillary refill < 3 seconds. 21:30 Reassessment: oral contrast finish at 2130. CT staff aware by the patient. rr5 22:25 Reassessment: Patient appears in no apparent distress at this time. Patient is alert, rr5 oriented x 3, equal unlabored respirations, skin warm/dry/pink. awaiting for CT procedure. Patient states feeling better. Patient states symptoms have improved. 23:41 Reassessment: Patient appears in no apparent distress at this time. Patient is alert, rr5 oriented x 3, equal unlabored respirations, skin warm/dry/pink. back from CT scan. no complaints made. Patient denies pain at this time. Patient states feeling better. Patient states symptoms have improved. 08/08 00:50 Reassessment: Patient appears in no apparent distress at this time. Patient is alert, rr5 oriented x 3, equal unlabored respirations, skin warm/dry/pink. reassess by ED provider with order for discharge after antibiotic infusion. 02:15 Reassessment: Patient appears in no apparent distress at this time. Patient and/or rr5 family updated on plan of care and expected duration. Pain level reassessed. Patient is alert, oriented x 3, equal unlabored respirations, skin warm/dry/pink. discharge instruction given and explained without complaints made, verbalized understanding. Vital Signs: 08/07 20:25 BP 112 / 72; Pulse 93; Resp 18; Temp 99.2; Pulse Ox 96% on R/A; Weight 74.84 kg (R); aj1 Height 5 ft. 4 in. (162.56 cm) (R); 21:00 BP 119 / 75; Pulse 90; Resp 16; Pulse Ox 99% on R/A; rr5 22:00 BP 108 / 64; Pulse 77; Resp 16; Pulse Ox 99% ; Pain 0/10; rr5 23:00 BP 106 / 69; Pulse 62; Resp 17; Pulse Ox 100% ; rr5 08/08 00:00 BP 126 / 79; Pulse 86; Resp 17; Temp 99; Pulse Ox 98% ; Pain 0/10; rr5 01:00 BP 123 / 98; Pulse 75; Resp 19; Pulse Ox 99% on R/A; rr5 02:00 BP 121 / 70; Pulse 82; Resp 17; Temp 98.1; Pulse Ox 99% ; Pain 0/10; rr5 08/07 20:25 Body Mass Index 28.32 (74.84 kg, 162.56 cm) aj1 ED Course: 08/07 20:15 Patient arrived in ED. cf2 20:24 Triage completed. aj1 20:25 Arm band placed on Patient placed in waiting room, Patient notified of wait time. aj1 20:30 Patient has correct armband on for positive identification. Placed in gown. Bed in low rr5 position. Call light in reach. Side rails up X2. manager international on. Pulse ox on. NIBP on. 21:10 Tristin Richards, LILIAN is Primary Nurse. rr5 21:13 Khanh Johnson MD is Attending Physician. ashley 21:46 XRAY Chest (1 view) In Process Unspecified. EDMS 22:05 Initial lab(s) drawn, by ED staff, sent to lab. Urine collected: clean catch specimen, aa1 clear. Inserted saline lock: 20 gauge in right antecubital area, using aseptic technique. Blood collected. 23:00 EKG done, by ED staff, reviewed by Khanh Johnson MD. ds4 23:46 CT completed. Patient tolerated procedure well. Patient moved to CT via wheelchair. Patient moved back from CT. 23:56 CT Abd/Pelvis - PO and IV Contrast In Process Unspecified. EDMS 08/08 01:18 No provider procedures requiring assistance completed. rr5 02:25 IV discontinued, intact, bleeding controlled, No redness/swelling at site. Pressure rr5 dressing applied. Administered Medications: 08/07 22:05 Drug: NS 0.9% 1000 ml Route: IV; Rate: 125 ml/hr; Site: right antecubital; aa1 23:00 Follow up: Rate change bolus; IV Status: Infusion continued rr5 08/08 00:30 Follow up: Response: No adverse reaction; IV Status: Completed infusion; IV Intake: rr5 1000ml 08/07 22:05 Drug: Pepcid 20 mg Route: IVP; Site: right antecubital; aa1 23:00 Follow up: Response: No adverse reaction; Marked relief of symptoms rr5 22:06 Drug: Zofran 4 mg Route: IVP; Site: right antecubital; aa1 23:00 Follow up: Response: No adverse reaction; Nausea is decreased rr5 22:31 Drug: Tylenol 1000 mg Route: PO; rr5 23:30 Follow up: Response: No adverse reaction rr5 1114 00:33 Drug: Zofran 4 mg Route: IVP; Site: right antecubital; rr5 01:27 Follow up: Response: No adverse reaction; Marked relief of symptoms; Nausea is decreasedrr5 00:35 Drug: morphine 4 mg {Note: rass 0.} Route: IVP; Site: right antecubital; rr5 01:26 Follow up: Response: No adverse reaction; Marked relief of symptoms; RASS: Alert and rr5 Calm (0) 00:38 Drug: Flagyl 500 mg Volume: 100 ml; Route: IVPB; Rate: 200 ml/hr; Infused Over: 30 rr5 mins; Site: right antecubital; 01:10 Follow up: Response: No adverse reaction; IV Status: Completed infusion; IV Intake: rr5 100ml 01:11 Drug: Cipro 400 mg Volume: 200 ml; Route: IVPB; Infused Over: 60 mins; Site: right rr5 antecubital; 02:15 Follow up: Response: No adverse reaction; IV Status: Completed infusion; IV Intake: rr5 200ml Intake: 00:30 IV: 1000ml; Total: 1000ml. rr5 01:10 IV: 100ml; Total: 1100ml. rr5 02:15 IV: 200ml; Total: 1300ml. rr5 Outcome: 00:51 Discharge ordered by . ashley 02:25 Condition: stable rr5 02:25 Discharged to home ambulatory, with family. rr5 02:25 Discharge instructions given to patient, Instructed on discharge instructions, follow up and referral plans. medication usage, Demonstrated understanding of instructions, follow-up care, medications, Prescriptions given X 4. 02:32 Patient left the ED. rr5 Signatures: Dispatcher [employer] EDMS Monse Mercedes RN RN reyna1 Leny Au RN RN aa1 Khanh Johnson MD MD cha Hagler, Ervin eh Swanson, Donovan ds4 Tristin Richards RN RN rr5 Melania Vargas cf2 Corrections: (The following items were deleted from the chart) 02: 01:19 LMP N/A - Hysterectomy, 2016 rr5 rr5 02:28 01:00 BP 153 / 98; Pulse 60bpm; Resp 19bpm; Pulse Ox 99% RA; rr5 rr5 02:30 01:18 Patient admitted, IV remains in place. intact, No redness/swelling at site. rr5 rr5 01:18 Admitted to Med/surg accompanied by tech, via wheelchair, room 215, with chart, rr5 Report called to gabbie rr5 01:18 Instructed on the need for admit, rr5 rr5 01:18 Condition: stable rr5 rr5
--- NOTE | 2019-08-08 00:52 | EDPHYS ---
Physician Documentation [facility] Name: Kim Weldon Age: 54 yrs Sex: Female : 1965 Arrival Date: 08/07/2019 Time: 20:15 Bed 19 Private MD: ALEXANDREA Physician Khanh Johnson HPI: 08/07 23:30 This 54 yrs old Female presents to ER via Ambulatory with complaints of ashley Vomiting. 23:30 The patient presents to the emergency department with nausea, vomiting, that is ashley continuous. Onset: The symptoms/episode began/occurred 4 day(s) ago. Possible causes: unknown. The symptoms are aggravated by nothing. The symptoms are alleviated by nothing. Associated signs and symptoms: The patient has no apparent associated signs or symptoms. Severity of symptoms: At their worst the symptoms were mild in the emergency department the symptoms are unchanged. The patient has not experienced similar symptoms in the past. Historical: - Allergies: 20:25 PENICILLINS; aj1 - Home Meds: 20:25 Advair Diskus Inhl 1 puff 2 times per day [Active]; aspirin 81 mg Oral TbEC 1 tab once aj1 daily [Active]; Cymbalta 60 mg Oral cpDR 1 cap once daily [Active]; ferrralet [Active]; gabapentin 100 mg Oral cap 3 times per day [Active]; Jardiance 10 mg Oral tab 1 tab once daily [Active]; levothyroxine 25 mcg tab 1 tab once daily [Active]; metformin 1,000 mg Oral tab [Active]; metoprolol tartrate 25 mg Oral tab 0.5 tabs once daily [Active]; pantoprazole 40 mg Oral TbEC 1 tab once daily [Active]; prasugrel 10mg Oral 1 tab once daily [Active]; ProAir HFA 90 mcg/actuation inhalation HFAA 2 puffs every 4 hours [Active]; Seroquel 400 mg Oral tab once daily [Active]; spironolactone 25 mg Oral tab 1 tab once daily [Active]; Tramadol-Acetaminophen Oral [Active]; Victoza 2-Mulugeta 0.6 mg/0.1 mL (18 mg/3 mL) subcutaneous pnij 0.2 mL once daily [Active]; - PMHx: 20:25 Asthma; Bipolar disorder; CHF; Diabetes - IDDM; Fibromyalgia; Hypertension; aj1 Hypothyroidism; mitral valve prolapse; scoliosis; - Immunization history:: Flu vaccine is up to date. - Social history:: Smoking status: Patient/guardian denies using tobacco. - Ebola Screening: : Patient denies travel to an Ebola-affected area in the 21 days before illness onset. - Family history:: not pertinent. ROS: 23:30 Constitutional: Negative for fever, chills, and weight loss, Eyes: Negative for injury, ashley pain, redness, and discharge, ENT: Negative for injury, pain, and discharge, Neck: Negative for injury, pain, and swelling, Cardiovascular: Negative for chest pain, palpitations, and edema, Respiratory: Negative for shortness of breath, cough, wheezing, and pleuritic chest pain, Back: Negative for injury and pain, : Negative for injury, bleeding, discharge, and swelling, MS/Extremity: Negative for injury and deformity, Skin: Negative for injury, rash, and discoloration, Neuro: Negative for headache, weakness, numbness, tingling, and seizure, Psych: Negative for depression, anxiety, suicide ideation, homicidal ideation, and hallucinations, Allergy/Immunology: Negative for hives, rash, and allergies, Endocrine: Negative for neck swelling, polydipsia, polyuria, polyphagia, and marked weight changes, Hematologic/Lymphatic: Negative for swollen nodes, abnormal bleeding, and unusual bruising. 23:30 Abdomen/GI: Positive for abdominal pain, nausea and vomiting. Exam: 23:30 Constitutional: This is a well developed, well nourished patient who is awake, alert, ashley and in no acute distress. Head/Face: Normocephalic, atraumatic. Eyes: Pupils equal round and reactive to light, extra-ocular motions intact. Lids and lashes normal. Conjunctiva and sclera are non-icteric and not injected. Cornea within normal limits. Periorbital areas with no swelling, redness, or edema. ENT: Nares patent. No nasal discharge, no septal abnormalities noted. Tympanic membranes are normal and external auditory canals are clear. Oropharynx with no redness, swelling, or masses, exudates, or evidence of obstruction, uvula midline. Mucous membranes moist. Neck: Trachea midline, no thyromegaly or masses palpated, and no cervical lymphadenopathy. Supple, full range of motion without nuchal rigidity, or vertebral point tenderness. No Meningismus. Chest/axilla: Normal chest wall appearance and motion. Nontender with no deformity. No lesions are appreciated. Cardiovascular: Regular rate and rhythm with a normal S1 and S2. No gallops, murmurs, or rubs. Normal PMI, no JVD. No pulse deficits. Respiratory: Lungs have equal breath sounds bilaterally, clear to auscultation and percussion. No rales, rhonchi or wheezes noted. No increased work of breathing, no retractions or nasal flaring. Abdomen/GI: Soft, non-tender, with normal bowel sounds. No distension or tympany. No guarding or rebound. No evidence of tenderness throughout. Back: No spinal tenderness. No costovertebral tenderness. Full range of motion. Skin: Warm, dry with normal turgor. Normal color with no rashes, no lesions, and no evidence of cellulitis. MS/ Extremity: Pulses equal, no cyanosis. Neurovascular intact. Full, normal range of motion. Neuro: Awake and alert, GCS 15, oriented to person, place, time, and situation. Cranial nerves II-XII grossly intact. Motor strength 5/5 in all extremities. Sensory grossly intact. Cerebellar exam normal. Normal gait. Psych: Awake, alert, with orientation to person, place and time. Behavior, mood, and affect are within normal limits. Vital Signs: 20:25 BP 112 / 72; Pulse 93; Resp 18; Temp 99.2; Pulse Ox 96% on R/A; Weight 74.84 kg (R); aj1 Height 5 ft. 4 in. (162.56 cm) (R); 21:00 BP 119 / 75; Pulse 90; Resp 16; Pulse Ox 99% on R/A; rr5 22:00 BP 108 / 64; Pulse 77; Resp 16; Pulse Ox 99% ; Pain 0/10; rr5 23:00 BP 106 / 69; Pulse 62; Resp 17; Pulse Ox 100% ; rr5 08/08 00:00 BP 126 / 79; Pulse 86; Resp 17; Temp 99; Pulse Ox 98% ; Pain 0/10; rr5 01:00 BP 123 / 98; Pulse 75; Resp 19; Pulse Ox 99% on R/A; rr5 02:00 BP 121 / 70; Pulse 82; Resp 17; Temp 98.1; Pulse Ox 99% ; Pain 0/10; rr5 08/07 20:25 Body Mass Index 28.32 (74.84 kg, 162.56 cm) aj1 MDM: 08/07 21:16 Patient medically screened. [facility] 23:32 Data reviewed: vital signs, nurses notes, lab test result(s), EKG, radiologic studies, [facility] CT scan, plain films. 08/07 21:15 Order name: Basic Metabolic Panel; Complete Time: 23:29 [facility] 08/07 21:15 Order name: CBC with Diff; Complete Time: 23:29 [facility] 08/07 21:15 Order name: LFT's; Complete Time: 23:29 [facility] 08/07 21:15 Order name: Magnesium; Complete Time: 23:29 [facility] 08/07 21:15 Order name: NT PRO-BNP; Complete Time: 23:29 [facility] 08/07 21:15 Order name: PT-INR; Complete Time: 23:29 [facility] 08/07 21:15 Order name: Troponin (emerg Dept Use Only); Complete Time: 23:29 [facility] 08/07 21:15 Order name: XRAY Chest (1 view) [facility] 08/07 21:15 Order name: Lipase; Complete Time: 23:29 [facility] 08/07 21:15 Order name: CT Abd/Pelvis - PO and IV Contrast [facility] 08/07 21:15 Order name: Urine Culture [facility] 08/07 22:20 Order name: Urine Dipstick--Ancillary (enter results); Complete Time: 23:29 cm6 08/07 21:15 Order name: EKG; Complete Time: 21:17 [facility] 08/07 21:15 Order name: Cardiac monitoring; Complete Time: 22:28 [facility] 08/07 21:15 Order name: EKG - Nurse/Tech; Complete Time: 23:00 [facility] 08/07 21:15 Order name: IV Saline Lock; Complete Time: 22:21 [facility] 08/07 21:15 Order name: Labs collected and sent; Complete Time: 22:21 [facility] 08/07 21:15 Order name: O2 Per Protocol; Complete Time: 22:28 [facility] 08/07 21:15 Order name: O2 Sat Monitoring; Complete Time: 22:28 [facility] 08/07 21:15 Order name: Urine Dipstick-Ancillary (obtain specimen); Complete Time: 22:20 [facility] Administered Medications: 22:05 Drug: NS 0.9% 1000 ml Route: IV; Rate: 125 ml/hr; Site: right antecubital; aa1 23:00 Follow up: Rate change bolus; IV Status: Infusion continued rr5 08/08 00:30 Follow up: Response: No adverse reaction; IV Status: Completed infusion; IV Intake: rr5 1000ml 08/07 22:05 Drug: Pepcid 20 mg Route: IVP; Site: right antecubital; aa1 23:00 Follow up: Response: No adverse reaction; Marked relief of symptoms rr5 22:06 Drug: Zofran 4 mg Route: IVP; Site: right antecubital; aa1 23:00 Follow up: Response: No adverse reaction; Nausea is decreased rr5 22:31 Drug: Tylenol 1000 mg Route: PO; rr5 23:30 Follow up: Response: No adverse reaction rr5 08/08 00:33 Drug: Zofran 4 mg Route: IVP; Site: right antecubital; rr5 01:27 Follow up: Response: No adverse reaction; Marked relief of symptoms; Nausea is decreasedrr5 00:35 Drug: morphine 4 mg {Note: rass 0.} Route: IVP; Site: right antecubital; rr5 01:26 Follow up: Response: No adverse reaction; Marked relief of symptoms; RASS: Alert and rr5 Calm (0) 00:38 Drug: Flagyl 500 mg Volume: 100 ml; Route: IVPB; Rate: 200 ml/hr; Infused Over: 30 rr5 mins; Site: right antecubital; 01:10 Follow up: Response: No adverse reaction; IV Status: Completed infusion; IV Intake: rr5 100ml 01:11 Drug: Cipro 400 mg Volume: 200 ml; Route: IVPB; Infused Over: 60 mins; Site: right rr5 antecubital; 02:15 Follow up: Response: No adverse reaction; IV Status: Completed infusion; IV Intake: rr5 200ml Disposition: 08/08/19 00:51 Discharged to Home. Impression: Vomiting, Diarrhea, unspecified, Abdominal tenderness, Elevated white blood cell count, Type 1 diabetes mellitus. - Condition is Stable. - Discharge Instructions: Abdominal Pain, Adult, Food Choices to Help Relieve Diarrhea, Adult, Diarrhea, Adult, Nausea and Vomiting, Adult, Nausea and Vomiting, Adult, Jphe-ec-[id number], Abdominal Pain, Adult, Vkoi-ra-Ttsw, Diarrhea, Adult, Mynm-sk-Rjwu. - Prescriptions for Protonix 40 mg Oral Tablet - take 1 tablet by ORAL route once daily; 30 tablet. Zofran 4 mg Oral Tablet - take 1 tablet by ORAL route every 12 hours As needed; 20 tablet. promethazine 25 mg Oral Tablet - take 1 tablet by ORAL route every 6 hours As needed; 20 tablet. Cipro 250 mg Oral Tablet - take 1 tablet by ORAL route every 12 hours; 14 tablet. - Medication Reconciliation Form, Thank You Letter, Antibiotic Education, Prescription Opioid Use form. - Follow up: Private Physician; When: 2 - 3 days; Reason: Recheck today's complaints, Continuance of care, Re-evaluation by your physician. - Problem is new. - Symptoms have improved. Signatures: Dispatcher [employer] EDMS Monse Mercedes RN RN aj1 Leny Au RN RN aa1 Khanh Johnson MD MD cha Roque, Raymond, RN RN rr5 Corrections: (The following items were deleted from the chart) 02:32 00:51 08/08/2019 00:51 Discharged to Home. Impression: Vomiting; Diarrhea, unspecified; rr5 Abdominal tenderness; Elevated white blood cell count; Type 1 diabetes mellitus. Condition is Stable. Discharge Instructions: Abdominal Pain, Adult, Food Choices to Help Relieve Diarrhea, Adult, Diarrhea, Adult, Nausea and Vomiting, Adult, Nausea and Vomiting, Adult, Zuwk-ud-Unun, Abdominal Pain, Adult, Idpz-eo-Fzdr, Diarrhea, Adult, Tuqr-ra-Ktce. Prescriptions for Protonix 40 mg Oral Tablet - take 1 tablet by ORAL route once daily; 30 tablet, Zofran 4 mg Oral Tablet - take 1 tablet by ORAL route every 12 hours As needed; 20 tablet, promethazine 25 mg Oral Tablet - take 1 tablet by ORAL route every 6 hours As needed; 20 tablet. and Forms are Medication Reconciliation Form, Thank You Letter, Antibiotic Education, Prescription Opioid Use. Follow up: Private Physician; When: 2 - 3 days; Reason: Recheck today's complaints, Continuance of care, Re-evaluation by your physician. Problem is new. Symptoms have improved. ashley
--- NOTE | 2019-08-08 08:00 | RAD REPORT ---
EXAM DESCRIPTION: Gab Single View08/07/2019 9:46 pm CLINICAL HISTORY: Abdominal pain COMPARISON: December 2018 FINDINGS: Area of subsegmental atelectasis is present within each lung base. The remainder lungs asia ear clear The heart is mildly enlarged
--- NOTE | 2019-08-08 08:17 | EKG ---
Test Date: 2019-08-07 Test Time: 22:52:42 Music Supervisor: DAILY MEASUREMENT RESULTS: Intervals: Rate: 70 MO: 112 QRSD: 70 QT: 418 QTc: 451 Carmi: P: 33 MO: 112 QRS: 57 T: 38 INTERPRETIVE STATEMENTS: Normal sinus rhythm Normal ECG Compared to ECG 05/15/2019 02:27:09 Atrial premature complex(es) no longer present Electronically Signed On 08-08-19 08:15:46 NETWORK SYSTEMS ADMINISTRATOR by Brian Elliott
[2019-08-08 11:28] VITALS: O2SAT 99
[2019-08-08 11:30] VITALS: BP 121/70; TEMP 98.1
--- NOTE | 2019-08-08 12:10 | RAD REPORT ---
EXAM DESCRIPTION: CT - Abdomen Pelvis W Contrast - 08/08/2019 4:52 am CLINICAL HISTORY: ABD PAIN COMPARISON: None. TECHNIQUE: CT ABDOMEN PELVIS WITH IV CONTRAST on 08/07/2019 9:15 PM NURSE ADVOCATE This exam was performed according to our departmental dose-optimization program, which includes autom ated exposure control, adjustment of the mA and/or kV according to patient size and/or use of iterati ve reconstruction technique. FINDINGS: Lower lungs are clear. Abdomen: Liver is mildly fatty in attenuation. There is no biliary dilatation. Gallbladder is normal in appearance. The pancreas and spleen are normal in appearance. The adrenal glands and kidneys are u nremarkable. Abdominal aorta is normal in course and caliber without aneurysm. There is no free air. There is no r etroperitoneal adenopathy.There is a tiny fat-containing umbilical hernia. Pelvis: There is no bowel obstruction. Urinary bladder is unremarkable. There is no free fluid. Uteru s is normal in size. Appendix is normal. Skeleton: There are no acute osseous findings. No suspicious bony lesions. IMPRESSION: No acute inflammatory process. No renal or ureteral calculi. Electronically signed by: Christian Rooney MD 08/08/2019 12:02 AM NURSE ADVOCATE Due to temporary technical issues with the PACS/Fluency reporting system, reports are being signed by the in house radiologist as a courtesy to ensure prompt reporting. The interpreting radiologist is f ully responsible for the content of the report.
== END 2019-08-08 02:32 | disposition home or self-care (01) ==
LOC: ER 20:11
DX: R19.7 Diarrhea, unspecified (principal); R10.819 Abdominal tenderness, unspecified site; D72.829 Elevated white blood cell count, unspecified; E10.9 Type 1 diabetes mellitus without complications; I10 Essential (primary) hypertension; F31.9 Bipolar disorder, unspecified; E03.9 Hypothyroidism, unspecified; Z79.4 Long term (current) use of insulin; Z79.811 Long term (current) use of aromatase inhibitors; Z88.0 Allergy status to penicillin
CPT/HCPCS: 96365; 96367; 96361; 93005; 87088; 85025; 87086; 80048; 36415; 83735; 85610; 80076; 81003; 84484; 83690; 83880; 74177; 71045; 96375; 99285; Q9967; J7030; J2405 ×2; J0744

== ENCOUNTER 2023-06-27 00:44 | Emergency (ER) | payer OTHER ==
--- NOTE | 2023-06-27 00:55 | EDPHYS ---
Physician Documentation [facility] Name: Kim Weldon Age: 58 yrs Sex: Female : 1965 Arrival Date: 06/27/2023 Time: 00:44 Bed 7 Private MD: ED Physician Benjamin Medina HPI: 06/27 00:51 This 58 yrs old Female presents to ER via Unassigned with complaints of sp3 accidental overdose. 00:51 58-year-old female with a history of depression symptoms currently taking Seroquel sp3 accidentally took 800 mg instead of 400 mg due to forgetting that she had already taken her medication. She has no current symptoms whatsoever activated EMS. ER precaution. She denies headache, fever, URI symptoms, chest pain, neck pain, shortness of breath, back pain, abdominal pain, nausea, vomiting, diarrhea, rash, or any other signs or symptoms at this time. She states she is sleepy however it is 1 AM and Seroquel will understandably make her feel that way however she is alert and oriented without any neurological symptoms for EMS.. Historical: - Allergies: 00:57 PENICILLINS; ha1 - PMHx: 00:57 Asthma; Bipolar disorder; CHF; Diabetes - IDDM; Fibromyalgia; Hypertension; ha1 Hypothyroidism; mitral valve prolapse; scoliosis; - Immunization history:: Adult Immunizations unknown. - Social history:: Smoking status: Reported history of juuling and/or vaping. ROS: 00:53 Constitutional: Negative for fever, chills, and weight loss, Eyes: Negative for injury, sp3 pain, redness, and discharge, ENT: Negative for injury, pain, and discharge, Neck: Negative for injury, pain, and swelling, Cardiovascular: Negative for chest pain, palpitations, and edema, Respiratory: Negative for shortness of breath, cough, wheezing, and pleuritic chest pain, Abdomen/GI: Negative for abdominal pain, nausea, vomiting, diarrhea, and constipation, Back: Negative for injury and pain, MS/Extremity: Negative for injury and deformity, Skin: Negative for injury, rash, and discoloration, Psych: Negative for depression, anxiety, suicide ideation, homicidal ideation, and hallucinations, Allergy/Immunology: Negative for hives, rash, and allergies, Endocrine: Negative for neck swelling, polydipsia, polyuria, polyphagia, and marked weight changes, Hematologic/Lymphatic: Negative for swollen nodes, abnormal bleeding, and unusual bruising, 00:53 All other systems are negative, Exam: 00:53 Constitutional: This is a well developed, well nourished patient who is awake, alert, sp3 and in no acute distress. Head/Face: Normocephalic, atraumatic. Eyes: Pupils equal round and reactive to light, extra-ocular motions intact. Lids and lashes normal. Conjunctiva and sclera are non-icteric and not injected. Cornea within normal limits. Periorbital areas with no swelling, redness, or edema. ENT: Nares patent. No nasal discharge, no septal abnormalities noted. External auditory canals are clear. Oropharynx with no redness, swelling, or masses, exudates, or evidence of obstruction, uvula midline. Mucous membranes moist. Neck: Trachea midline, no thyromegaly or masses palpated, and no cervical lymphadenopathy. Supple, full range of motion without nuchal rigidity, or vertebral point tenderness. No Meningismus. Chest/axilla: Normal chest wall appearance and motion. Nontender with no deformity. No lesions are appreciated. Cardiovascular: Regular rate and rhythm with a normal S1 and S2. No gallops, murmurs, or rubs. Normal PMI, no JVD. No pulse deficits. Respiratory: Lungs have equal breath sounds bilaterally, clear to auscultation and percussion. No rales, rhonchi or wheezes noted. No increased work of breathing, no retractions or nasal flaring. Abdomen/GI: Soft, non-tender, with normal bowel sounds. No distension or tympany. No guarding or rebound. No evidence of tenderness throughout. Back: No spinal tenderness. No costovertebral tenderness. Full range of motion. Skin: Warm, dry with normal turgor. Normal color with no rashes, no lesions, and no evidence of cellulitis. MS/ Extremity: Pulses equal, no cyanosis. Neurovascular intact. Full, normal range of motion. Neuro: Awake and alert, GCS 15, oriented to person, place, time, and situation. Cranial nerves II-XII grossly intact. Motor strength 5/5 in all extremities. Sensory grossly intact. Cerebellar exam normal. Normal gait. Psych: Awake, alert, with orientation to person, place and time. Behavior, mood, and affect are within normal limits. 00:56 ECG was reviewed by the Attending Physician. EKG demonstrates normal sinus rhythm at 60 sp3 bpm with normal intervals, normal axis, normal axis ST segments without evidence of ischemia or any other abnormality. Vital Signs: 00:50 BP 130 / 75; Pulse 61; Resp 17 S; Temp 97.9; Pulse Ox 98% on R/A; Weight 81.65 kg; ha1 Height 5 ft. 4 in. ; 00:50 Body Mass Index 30.90 (81.65 kg, 162.56 cm) ha1 MDM: 00:48 Patient medically screened. sp3 00:53 Data reviewed: vital signs, nurses notes, EMS record, old medical records. ED course: sp3 58-year-old with accidental overdose on Seroquel. Patient not suicidal, homicidal or psychotic. I do believe this is a significant overdose that would require any further work-up or observation in the ED. Will obtain EKG and vital signs and observe patient's for approximately 30 minutes prior to discharge. Patient can follow-up with her PCP. I have told her to hold her Seroquel dose for tomorrow. EKG is without any significant findings. We will safely discharge patient home after the above is complete.. 10 00:48 Order name: EKG; Complete Time: 00:49 sp3 06/27 00:48 Order name: EKG - Nurse/Tech sp3 Administered Medications: No medications were administered Disposition Summary: 06/27/23 00:55 Discharge Ordered Notes: Location: Home sp3 Condition: Stable sp3 Diagnosis - Accidental Seroquel overdose sp3 Followup: sp3 - With: Private Physician - When: Upon discharge from the Emergency Department - Reason: Continuance of care Discharge Instructions: - Discharge Summary Sheet sp3 - Accidental Drug Poisoning, Adult sp3 Forms: - Medication Reconciliation Form sp3 - Thank You Letter sp3 - Antibiotic Education sp3 - Prescription Opioid Use sp3 - Patient Portal Instructions sp3 - Leadership Thank You Letter sp3 Signatures: Benjamin Medina MD MD sp3 Marsha Roy RN RN ha1
--- NOTE | 2023-06-27 01:04 | ER ---
Nurse's Notes [facility] Name: Kim Weldon Age: 58 yrs Sex: Female : 1965 Arrival Date: 06/27/2023 Time: 00:44 Bed 7 Private MD: Diagnosis: Accidental Seroquel overdose Presentation: 06/27 00:50 Chief complaint: EMS states: 58 year old female reports taking 800mg of Seroquel ha1 instead 0f 400 mg that she usually takes. Coronavirus screen: Vaccine status: Patient reports receiving the 2nd dose of the covid vaccine. Moderna. Ebola Screen: No symptoms or risks identified at this time. Initial Sepsis Screen: Does the patient meet any 2 criteria? No. Patient's initial sepsis screen is negative. Does the patient have a suspected source of infection? No. Patient's initial sepsis screen is negative. Risk Assessment: Do you want to hurt yourself or someone else? Patient reports no desire to harm self or others. Onset of symptoms was June 27, 2023. 00:50 Method Of Arrival: EMS: [facility] ha1 00:50 Acuity: ALFRED 4 ha1 Triage Assessment: 00:57 General: Appears comfortable, Behavior is calm, cooperative. Pain: Complains of pain in ha1 headache Pain does not radiate. Pain currently is 4 out of 10 on a pain scale. Quality of pain is described as pressure. Neuro: Level of Consciousness is awake, alert, obeys commands, Oriented to person, place, time, situation. Cardiovascular: Patient's skin is warm and dry. Respiratory: Airway is patent Trachea midline Respiratory effort is even, unlabored, Respiratory pattern is regular, symmetrical. GI: No signs and/or symptoms were reported involving the gastrointestinal system. Derm: Skin is pink, warm \T\ dry. Musculoskeletal: Circulation, motion, and sensation intact. Range of motion: intact in all extremities. Historical: - Allergies: 00:57 PENICILLINS; ha1 - PMHx: 00:57 Asthma; Bipolar disorder; CHF; Diabetes - IDDM; Fibromyalgia; Hypertension; ha1 Hypothyroidism; mitral valve prolapse; scoliosis; - Immunization history:: Adult Immunizations unknown. - Social history:: Smoking status: Reported history of juuling and/or vaping. Screenin:59 [facility] ED Fall Risk Assessment (Adult) History of falling in the last 3 months, ha1 including since admission No falls in past 3 months (0 pts) Confusion or Disorientation No (0 pts) Intoxicated or Sedated No (0 pts) Impaired Gait No (0 pts) Mobility Assist Device Used No (0 pt) Altered Elimination No (0 pt) Score/Fall Risk Level 0 - 2 = Low Risk Oriented to surroundings, Maintained a safe environment, Educated pt \T\ family on fall prevention, incl call for assistance when getting out of bed. Abuse screen: Denies threats or abuse. Denies injuries from another. Nutritional screening: No deficits noted. Tuberculosis screening: No symptoms or risk factors identified. Vital Signs: 00:50 BP 130 / 75; Pulse 61; Resp 17 S; Temp 97.9; Pulse Ox 98% on R/A; Weight 81.65 kg; ha1 Height 5 ft. 4 in. ; 00:50 Body Mass Index 30.90 (81.65 kg, 162.56 cm) ha1 ED Course: 00:46 Patient arrived in ED. as6 00:46 Arm band placed on right wrist. ha1 00:46 Patient has correct armband on for positive identification. Placed in gown. Bed in low ha1 position. Call light in reach. Side rails up X 1. 00:48 Benjamin Medina MD is Attending Physician. sp3 00:57 Triage completed. ha1 01:02 No provider procedures requiring assistance completed. Patient did not have IV access ha1 during this emergency room visit. 01:03 Provided Education on: follow ups. ha1 Administered Medications: No medications were administered Medication: 01:03 VIS not applicable for this client. ha1 Outcome: 00:55 Discharge ordered by . sp3 01:03 Discharged to home ambulatory, with family, ha1 01:03 Condition: stable 01:03 Discharge instructions given to patient, family, Instructed on discharge instructions, follow up and referral plans. Demonstrated understanding of instructions, follow-up care, 01:04 Patient left the ED. ha1 Signatures: Benjamin Medina MD MD sp3 Geraldo Cheng RN RN as6 Marsha Roy RN RN ha1
[2023-06-27 01:08] VITALS: BP 130/75; TEMP 97.9; O2SAT 98
--- OUTSIDE RECORDS SUMMARY | 2023-06-27 01:17 | XMS REPORT | Continuity of Care Document ---
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 by ity of tablet 00:00: mouth [place] [address] every Medical morning. Branch rosuvastati Yes [id number] 20mg Take 1 [facility] n 20 mg 8-22 tablet by ity of tablet 00:00: mouth at [place] [address] bedtime. Medical Branch loratadine Yes [id number] 10mg Take 1 U nivers 10 mg 8-22 tablet by ity of tablet 00:00: mouth at [place] [address] bedtime. Medical Branch prasugreL Yes [id number] 10mg Take 1 Un pippa 10 mg 8-22 tablet by ity of tablet 00:00: mouth in [place] the Medical morning. Branch Appointmen t needed. Please contact office. busPIRone Yes [id number] TAKE 1/2 [facility] 15 mg 8-22 TO 1 ity of tablet 00:00: TABLET BY [place] [address] MOUTH Medical TWICE Branch DAILY NEEDED FOR ANXIETY levothyroxi Yes [id number] 175ug Take 1 [facility] ne 175 mcg 8-22 tablet by ity of tablet 00:00: mouth [place] every Medical morning. Branch rosuvastati Yes [id number] 20mg Take 1 [facility] n 20 mg 8-22 tablet by ity of tablet 00:00: mouth at [place] [address] bedtime. Medical Branch loratadine Yes [id number] 10mg Take 1 U nivers 10 mg 8-22 tablet by ity of tablet 00:00: mouth at [place] [address] bedtime. Medical Branch prasugreL Yes [id number] 10mg Take 1 Un pippa 10 mg 8-22 tablet by ity of tablet 00:00: mouth in [place] the Medical morning. Branch Appointmen t needed. Please contact office. semaglutide Yes [id number] 2mg inject 2 Univers (OZEMPIC) 2 8-22 mg under ity of mg/dose (8 00:00: the skin Price as mg/3 mL) 00 weekly. Medical PnIj Branch busPIRone Yes [id number] TAKE 1/2 [facility] 15 mg 8-22 TO 1 ity of tablet 00:00: TABLET BY [place] 00 MOUTH Medical TWICE [place] DAILY NEEDED FOR ANXIETY levothyroxi Yes [id number] 175ug Take 1 [facility] ne 175 mcg 8-22 tablet by ity of tablet 00:00: mouth [place] every Medical morning. Branch rosuvastati Yes [id number] 20mg Take 1 [facility] n 20 mg 8-22 tablet by ity of tablet 00:00: mouth at [place] [address] bedtime. Medical Branch loratadine Yes [id number] 10mg Take 1 U nivers 10 mg 8-22 tablet by ity of tablet 00:00: mouth at [place] [address] bedtime. Medical Branch prasugreL Yes [id number] 10mg Take 1 Un pippa 10 mg 8-22 tablet by ity of tablet 00:00: mouth in [place] the Medical morning. Branch Appointmen t needed. Please contact office. semaglutide Yes [id number] 2mg inject 2 [facility] (OZEMPIC) 2 8-22 mg under ity of mg/dose (8 00:00: the skin Price as mg/3 mL) 00 weekly. Medical PnIj Branch busPIRone Yes [id number] TAKE 1/2 [facility] 15 mg 8-22 TO 1 ity of tablet 00:00: TABLET BY [place] MOUTH Medical TWICE [place] DAILY NEEDED FOR ANXIETY levothyroxi Yes [id number] 175ug Take 1 [facility] ne 175 mcg 8-22 tablet by ity of tablet 00:00: mouth [place] [address] every Medical morning. Branch rosuvastati Yes [id number] 20mg Take 1 [facility] n 20 mg 8-22 tablet by ity of tablet 00:00: mouth at [place] [address] bedtime. Medical Branch loratadine Yes [id number] 10mg Take 1 U nivers 10 mg 8-22 tablet by ity of tablet 00:00: mouth at [place] [address] bedtime. Medical Branch prasugreL Yes [id number] 10mg Take 1 Un pippa 10 mg 8-22 tablet by ity of tablet 00:00: mouth in [place] the Medical morning. Branch Appointmen t needed. Please contact office. semaglutide Yes [id number] 2mg inject 2 [facility] (OZEMPIC) 2 8-22 mg under ity of mg/dose (8 00:00: the skin Price as mg/3 mL) 00 weekly. Medical PnIj Branch busPIRone Yes [id number] TAKE 1/2 [facility] 15 mg 8-22 TO 1 ity of tablet 00:00: TABLET BY [place] 00 MOUTH Medical TWICE Branch DAILY NEEDED FOR ANXIETY levothyroxi Yes [id number] 175ug Take 1 [facility] ne 175 mcg 8-22 tablet by ity of tablet 00:00: mouth [place] 00 every Medical morning. Branch rosuvastati Yes [id number] 20mg Take 1 [facility] n 20 mg 8-22 tablet by ity of tablet 00:00: mouth at [place] 00 bedtime. Medical Branch loratadine Yes [id number] 10mg Take 1 U nivers 10 mg 8-22 tablet by ity of tablet 00:00: mouth at [place] 00 bedtime. Medical Branch prasugreL Yes [id number] 10mg Take 1 Un pippa 10 mg 8-22 tablet by ity of tablet 00:00: mouth in [place] the Medical morning. Branch Appointmen t needed. Please contact office. semaglutide Yes [id number] 2mg inject 2 [facility] (OZEMPIC) 2 8-22 mg under ity of mg/dose (8 00:00: the skin Price as mg/3 mL) 00 weekly. Medical PnIj Branch busPIRone Yes [id number] TAKE 1/2 [facility] 15 mg 8-22 TO 1 ity of tablet 00:00: TABLET BY [place] 00 MOUTH Medical TWICE [place] DAILY NEEDED FOR ANXIETY levothyroxi Yes [id number] 175ug Take 1 [facility] ne 175 mcg 8-22 tablet by ity of tablet 00:00: mouth [place] 00 every Medical morning. Branch rosuvastati Yes [id number] 20mg Take 1 [facility] n 20 mg 8-22 tablet by ity of tablet 00:00: mouth at [place] 00 bedtime. Medical Branch loratadine Yes [id number] 10mg Take 1 U nivers 10 mg 8-22 tablet by ity of tablet 00:00: mouth at [place] 00 bedtime. Medical Branch prasugreL Yes [id number] 10mg Take 1 Un pippa 10 mg 8-22 tablet by ity of tablet 00:00: mouth in [place] 00 the Medical morning. Branch Appointmen t needed. Please contact office. semaglutide Yes [id number] 2mg inject 2 [facility] (OZEMPIC) 2 8-22 mg under ity of mg/dose (8 00:00: the skin Price as mg/3 mL) 00 weekly. Medical PnIj Branch busPIRone Yes [id number] TAKE 1/2 [facility] 15 mg 8-22 TO 1 ity of tablet 00:00: TABLET BY [place] [address] MOUTH Medical TWICE Branch DAILY NEEDED FOR ANXIETY levothyroxi Yes [id number] 175ug Take 1 [facility] ne 175 mcg 8-22 tablet by ity of tablet 00:00: mouth [place] 00 every Medical morning. Branch rosuvastati Yes [id number] 20mg Take 1 [facility] n 20 mg 8-22 tablet by ity of tablet 00:00: mouth at [place] 00 bedtime. Medical Branch loratadine Yes [id number] 10mg Take 1 U nivers 10 mg 8-22 tablet by ity of tablet 00:00: mouth at [place] 00 bedtime. Medical Branch prasugreL Yes [id number] 10mg Take 1 Un pippa 10 mg 8-22 tablet by ity of tablet 00:00: mouth in [place] 00 the Medical morning. Branch Appointmen t needed. Please contact office. semaglutide Yes [id number] 2mg inject 2 [facility] (OZEMPIC) 2 8-22 mg under ity of mg/dose (8 00:00: the skin Price as mg/3 mL) 00 weekly. Medical PnIj Branch busPIRone Yes [id number] TAKE 1/2 [facility] 15 mg 8-22 TO 1 ity of tablet 00:00: TABLET BY [place] 00 MOUTH Medical TWICE Branch DAILY NEEDED FOR ANXIETY levothyroxi 2022-0 Yes [id number] 175ug Take 1 [facility] ne 175 mcg 8-22 tablet by ity of tablet 00:00: mouth [place] 00 every Medical morning. Branch rosuvastati 0 Yes [id number] 20mg Take 1 [facility] n 20 mg 8-22 tablet by ity of tablet 00:00: mouth at [place] [address] bedtime. Medical Branch loratadine 0 Yes [id number] 10mg Take 1 U nivers 10 mg 8-22 tablet by ity of tablet 00:00: mouth at [place] [address] bedtime. Medical Branch prasugreL 0 Yes [id number] 10mg Take 1 Un pippa 10 mg 8-22 tablet by ity of tablet 00:00: mouth in [place] the Medical morning. Branch Appointmen t needed. Please contact office. semaglutide Yes [id number] 2mg inject 2 [facility] (OZEMPIC) 2 8-22 mg under ity of mg/dose (8 00:00: the skin Price as mg/3 mL) 00 weekly. Medical PnIj Branch busPIRone Yes [id number] TAKE 1/2 [facility] 15 mg 8-22 TO 1 ity of tablet 00:00: TABLET BY [place] 00 MOUTH Medical TWICE Branch DAILY NEEDED FOR ANXIETY levothyroxi Yes [id number] 175ug Take 1 [facility] ne 175 mcg 8-22 tablet by ity of tablet 00:00: mouth [place] every Medical morning. Branch rosuvastati Yes [id number] 20mg Take 1 [facility] n 20 mg 8-22 tablet by ity of tablet 00:00: mouth at [place] 00 bedtime. Medical Branch loratadine 2022-0 Yes [id number] 10mg Take 1 U nivers 10 mg 8-22 tablet by ity of tablet 00:00: mouth at [place] [address] bedtime. Medical Branch prasugreL 0 Yes [id number] 10mg Take 1 Un pippa 10 mg 8-22 tablet by ity of tablet 00:00: mouth in [place] the Medical morning. Branch Appointmen t needed. Please contact office. semaglutide 0 Yes [id number] 2mg inject 2 [facility] (OZEMPIC) 2 8-22 mg under ity of mg/dose (8 00:00: the skin Price as mg/3 mL) 00 weekly. Medical PnIj Branch busPIRone 2023-0 Yes [id number] TAKE 1/2 [facility] 15 mg 8-22 TO 1 ity of tablet 00:00: TABLET BY [place] 00 MOUTH Medical TWICE Branch DAILY NEEDED FOR ANXIETY levothyroxi Yes [id number] 175ug Take 1 [facility] ne 175 mcg 8-22 tablet by ity of tablet 00:00: mouth every Medical morning. Branch rosuvastati Yes [id number] 20mg Take 1 [facility] n 20 mg 8-22 tablet by ity of tablet 00:00: mouth at [place] 00 bedtime. Medical Branch loratadine Yes [id number] 10mg Take 1 U nivers 10 mg 8-22 tablet by ity of tablet 00:00: mouth at [place] [address] bedtime. Medical Branch prasugreL Yes [id number] 10mg Take 1 Un pippa 10 mg 8-22 tablet by ity of tablet 00:00: mouth in [place] the Medical morning. Branch Appointmen t needed. Please contact office. semaglutide Yes [id number] 2mg inject 2 [facility] (OZEMPIC) 2 8-22 mg under ity of mg/dose (8 00:00: the skin Price as mg/3 mL) 00 weekly. Medical PnIj Branch busPIRone Yes [id number] TAKE 1/2 [facility] 15 mg 8-22 TO 1 ity of tablet 00:00: TABLET BY [place] MOUTH Medical TWICE Branch DAILY NEEDED FOR ANXIETY levothyroxi Yes [id number] 175ug Take 1 [facility] ne 175 mcg 8-22 tablet by ity of tablet 00:00: mouth [place] [address] every Medical morning. Branch rosuvastati Yes [id number] 20mg Take 1 [facility] n 20 mg 8-22 tablet by ity of tablet 00:00: mouth at [place] [address] bedtime. Medical Branch loratadine Yes [id number] 10mg Take 1 U nivers 10 mg 8-22 tablet by ity of tablet 00:00: mouth at [place] [address] bedtime. Medical Branch prasugreL 0 Yes [id number] 10mg Take 1 Un pippa 10 mg 8-22 tablet by ity of tablet 00:00: mouth in [place] 00 the Medical morning. Branch Appointmen t needed. Please contact office. semaglutide Yes [id number] 2mg inject 2 [facility] (OZEMPIC) 2 8-22 mg under ity of mg/dose (8 00:00: the skin Price as mg/3 mL) 00 weekly. Medical PnIj Branch busPIRone Yes [id number] TAKE 1/2 [facility] 15 mg 8-22 TO 1 ity of tablet 00:00: TABLET BY [place] 00 MOUTH Medical TWICE [place] DAILY NEEDED FOR ANXIETY levothyroxi Yes [id number] 175ug Take 1 [facility] ne 175 mcg 8-22 tablet by ity of tablet 00:00: mouth every Medical morning. Branch rosuvastati Yes [id number] 20mg Take 1 [facility] n 20 mg 8-22 tablet by ity of tablet 00:00: mouth at [place] [address] bedtime. Medical Branch loratadine Yes [id number] 10mg Take 1 U nivers 10 mg 8-22 tablet by ity of tablet 00:00: mouth at [place] [address] bedtime. Medical Branch prasugreL Yes [id number] 10mg Take 1 Un pippa 10 mg 8-22 tablet by ity of tablet 00:00: mouth in [place] 00 the Medical morning. Branch Appointmen t needed. Please contact office. semaglutide Yes [id number] 2mg inject 2 [facility] (OZEMPIC) 2 8-22 mg under ity of mg/dose (8 00:00: the skin Price as mg/3 mL) 00 weekly. Medical PnIj Branch busPIRone Yes [id number] TAKE 1/2 [facility] 15 mg 8-22 TO 1 ity of tablet 00:00: TABLET BY [place] 00 MOUTH Medical TWICE [place] DAILY NEEDED FOR ANXIETY levothyroxi Yes [id number] 175ug Take 1 [facility] ne 175 mcg 8-22 tablet by ity of tablet 00:00: mouth [place] every Medical morning. Branch rosuvastati Yes [id number] 20mg Take 1 [facility] n 20 mg 8-22 tablet by ity of tablet 00:00: mouth at [place] [address] bedtime. Medical Branch loratadine Yes [id number] 10mg Take 1 U nivers 10 mg 8-22 tablet by ity of tablet 00:00: mouth at [place] [address] bedtime. Medical Branch prasugreL Yes [id number] 10mg Take 1 Un pippa 10 mg 8-22 tablet by ity of tablet 00:00: mouth in [place] 00 the Medical morning. Branch Appointmen t needed. Please contact office. semaglutide Yes [id number] 2mg inject 2 [facility] (OZEMPIC) 2 8-22 mg under ity of mg/dose (8 00:00: the skin Price as mg/3 mL) 00 weekly. Medical PnIj Branch busPIRone Yes [id number] TAKE 1/2 [facility] 15 mg 8-22 TO 1 ity of tablet 00:00: TABLET BY [place] 00 MOUTH Medical TWICE Branch DAILY NEEDED FOR ANXIETY levothyroxi Yes [id number] 175ug Take 1 [facility] ne 175 mcg 8-22 tablet by ity of tablet 00:00: mouth [place] every Medical morning. Branch rosuvastati Yes [id number] 20mg Take 1 [facility] n 20 mg 8-22 tablet by ity of tablet 00:00: mouth at [place] 00 bedtime. Medical Branch loratadine Yes [id number] 10mg Take 1 U nivers 10 mg 8-22 tablet by ity of tablet 00:00: mouth at [place] 00 bedtime. Medical Branch prasugreL Yes [id number] 10mg Take 1 Un pippa 10 mg 8-22 tablet by ity of tablet 00:00: mouth in [place] 00 the Medical morning. Branch Appointmen t needed. Please contact office. semaglutide Yes [id number] 2mg inject 2 [facility] (OZEMPIC) 2 8-22 mg under ity of mg/dose (8 00:00: the skin Price as mg/3 mL) 00 weekly. Medical PnIj Branch busPIRone Yes [id number] TAKE 1/2 [facility] 15 mg 8-22 TO 1 ity of tablet 00:00: TABLET BY [place] 00 MOUTH Medical TWICE Branch DAILY NEEDED FOR ANXIETY levothyroxi 0 Yes [id number] 175ug Take 1 [facility] ne 175 mcg 8-22 tablet by ity of tablet 00:00: mouth [place] 00 every Medical morning. Branch rosuvastati 2022-0 Yes [id number] 20mg Take 1 [facility] n 20 mg 8-22 tablet by ity of tablet 00:00: mouth at [place] 00 bedtime. Medical Branch loratadine Yes [id number] 10mg Take 1 U nivers 10 mg 8-22 tablet by ity of tablet 00:00: mouth at [place] 00 bedtime. Medical Branch prasugreL Yes [id number] 10mg Take 1 Un pippa 10 mg 8-22 tablet by ity of tablet 00:00: mouth in [place] 00 the Medical morning. Branch Appointmen t needed. Please contact office. semaglutide Yes [id number] 2mg inject 2 [facility] (OZEMPIC) 2 8-22 mg under ity of mg/dose (8 00:00: the skin Price as mg/3 mL) 00 weekly. Medical PnIj Branch busPIRone Yes [id number] TAKE 1/2 [facility] 15 mg 8-22 TO 1 ity of tablet 00:00: TABLET BY [place] 00 MOUTH Medical TWICE Branch DAILY NEEDED FOR ANXIETY levothyroxi Yes [id number] 175ug Take 1 [facility] ne 175 mcg 8-22 tablet by ity of tablet 00:00: mouth [place] 00 every Medical morning. Branch rosuvastati Yes [id number] 20mg Take 1 [facility] n 20 mg 8-22 tablet by ity of tablet 00:00: mouth at [place] [address] bedtime. Medical Branch loratadine Yes [id number] 10mg Take 1 U nivers 10 mg 8-22 tablet by ity of tablet 00:00: mouth at [place] 00 bedtime. Medical Branch prasugreL Yes [id number] 10mg Take 1 Un pippa 10 mg 8-22 tablet by ity of tablet 00:00: mouth in [place] 00 the Medical morning. Branch Appointmen t needed. Please contact office. semaglutide Yes [id number] 2mg inject 2 [facility] (OZEMPIC) 2 8-22 mg under ity of mg/dose (8 00:00: the skin Price as mg/3 mL) 00 weekly. Medical PnIj Branch Insulin Yes [id number] ADMINISTER Univers Glargine 8-18 30 UNITS ity of (LANTUS 00:00: UNDER THE [place] SOLOSTAR 00 SKIN TWICE Medic al U-100 DAILY Branch INSULIN) 100 unit/mL (3 mL) injection Insulin Yes [id number] ADMINISTER [facility] Glargine 8-18 30 UNITS ity of (LANTUS 00:00: UNDER THE [place] SOLOSTAR 00 SKIN TWICE Medic al U-100 DAILY Branch INSULIN) 100 unit/mL (3 mL) injection Insulin Yes [id number] ADMINISTER [facility] Glargine 8-18 30 UNITS ity of (LANTUS 00:00: UNDER THE [place] SOLOSTAR 00 SKIN TWICE Medic al U-100 DAILY Branch INSULIN) 100 unit/mL (3 mL) injection Insulin Yes [id number] ADMINISTER [facility] Glargine 8-18 30 UNITS ity of (LANTUS 00:00: UNDER THE [place] SOLOSTAR 00 SKIN TWICE Medic al U-100 DAILY Branch INSULIN) 100 unit/mL (3 mL) injection Insulin Yes [id number] ADMINISTER [facility] Glargine 8-18 30 UNITS ity of (LANTUS 00:00: UNDER THE [place] SOLOSTAR 00 SKIN TWICE Medic al U-100 DAILY Branch INSULIN) 100 unit/mL (3 mL) injection Insulin Yes [id number] ADMINISTER [facility] Glargine 8-18 30 UNITS ity of (LANTUS 00:00: UNDER THE [place] SOLOSTAR 00 SKIN TWICE Medic al U-100 DAILY Branch INSULIN) 100 unit/mL (3 mL) injection Insulin Yes [id number] ADMINISTER [facility] Glargine 8-18 30 UNITS ity of (LANTUS 00:00: UNDER THE [place] SOLOSTAR 00 SKIN TWICE Medic al U-100 DAILY Branch INSULIN) 100 unit/mL (3 mL) injection Insulin Yes [id number] ADMINISTER [facility] Glargine 8-18 30 UNITS ity of (LANTUS 00:00: UNDER THE [place] SOLOSTAR 00 SKIN TWICE Medic al U-100 DAILY Branch INSULIN) 100 unit/mL (3 mL) injection Insulin Yes [id number] ADMINISTER [facility] Glargine 8-18 30 UNITS ity of (LANTUS 00:00: UNDER THE [place] SOLOSTAR 00 SKIN TWICE Medic al U-100 DAILY Branch INSULIN) 100 unit/mL (3 mL) injection Insulin Yes [id number] ADMINISTER [facility] Glargine 8-18 30 UNITS ity of (LANTUS 00:00: UNDER THE [place] SOLOSTAR 00 SKIN TWICE Medic al U-100 DAILY Branch INSULIN) 100 unit/mL (3 mL) injection Insulin Yes [id number] ADMINISTER [facility] Glargine 8-18 30 UNITS ity of (LANTUS 00:00: UNDER THE [place] SOLOSTAR 00 SKIN TWICE Medic al U-100 DAILY Branch INSULIN) 100 unit/mL (3 mL) injection Insulin 2022- No [id number] ADMINISTER Univers Glargine 05-12 30 UNITS ity of (LANTUS 00:00: 00:00 UNDER THE [facility] SOLOSTAR 00 :00 SKIN TWICE Medic al U-100 DAILY Branch INSULIN) 100 unit/mL (3 mL) injection Insulin 2022- No [id number] ADMINISTER Univers Glargine 05-12 30 UNITS ity of (LANTUS 00:00: 00:00 UNDER THE [facility] SOLOSTAR 00 :00 SKIN TWICE Medic al U-100 DAILY Branch INSULIN) 100 unit/mL (3 mL) injection FLUTICASONE Yes [id number] SHAKE U nivers PROPIONATE 8-16 LIQUID AND ity of 50 00:00: USE 1 TO 2 [place] mcg/actuati 00 SPRAYS IN Med ical on nasal EACH Branch spray NOSTRIL IN THE MORNING FLUTICASONE Yes [id number] SHAKE U nivers PROPIONATE 8-16 LIQUID AND ity of 50 00:00: USE 1 TO 2 [place] mcg/actuati 00 SPRAYS IN Med ical on nasal EACH Branch spray NOSTRIL IN THE MORNING FLUTICASONE Yes [id number] SHAKE U nivers PROPIONATE 8-16 LIQUID AND ity of 50 00:00: USE 1 TO 2 [place] mcg/actuati 00 SPRAYS IN Med ical on nasal EACH Branch spray NOSTRIL IN THE MORNING FLUTICASONE Yes [id number] SHAKE U nivers PROPIONATE 8-16 LIQUID AND ity of 50 00:00: USE 1 TO 2 [place] mcg/actuati 00 SPRAYS IN Med ical on nasal EACH Branch spray NOSTRIL IN THE MORNING FLUTICASONE Yes [id number] SHAKE U nivers PROPIONATE 8-16 LIQUID AND ity of 50 00:00: USE 1 TO 2 [place] mcg/actuati 00 SPRAYS IN Med ical on nasal EACH Branch spray NOSTRIL IN THE MORNING FLUTICASONE Yes [id number] SHAKE U nivers PROPIONATE 8-16 LIQUID AND ity of 50 00:00: USE 1 TO 2 [place] mcg/actuati 00 SPRAYS IN Med ical on nasal EACH Branch spray NOSTRIL IN THE MORNING FLUTICASONE Yes [id number] SHAKE U nivers PROPIONATE 8-16 LIQUID AND ity of 50 00:00: USE 1 TO 2 [place] mcg/actuati 00 SPRAYS IN Med ical on nasal EACH Branch spray NOSTRIL IN THE MORNING FLUTICASONE Yes [id number] SHAKE U nivers PROPIONATE 8-16 LIQUID AND ity of 50 00:00: USE 1 TO 2 [place] mcg/actuati 00 SPRAYS IN Med ical on nasal EACH Branch spray NOSTRIL IN THE MORNING FLUTICASONE Yes [id number] SHAKE U nivers PROPIONATE 8-16 LIQUID AND ity of 50 00:00: USE 1 TO 2 [place] mcg/actuati 00 SPRAYS IN Med ical on nasal EACH Branch spray NOSTRIL IN THE MORNING FLUTICASONE Yes [id number] SHAKE U nivers PROPIONATE 8-16 LIQUID AND ity of 50 00:00: USE 1 TO 2 [place] mcg/actuati 00 SPRAYS IN Med ical on nasal EACH Branch spray NOSTRIL IN THE MORNING FLUTICASONE Yes [id number] SHAKE U nivers PROPIONATE 8-16 LIQUID AND ity of 50 00:00: USE 1 TO 2 [place] mcg/actuati 00 SPRAYS IN Med ical on nasal EACH Branch spray NOSTRIL IN THE MORNING FLUTICASONE Yes [id number] SHAKE U nivers PROPIONATE 8-16 LIQUID AND ity of 50 00:00: USE 1 TO 2 [place] mcg/actuati 00 SPRAYS IN Med ical on nasal EACH Branch spray NOSTRIL IN THE MORNING FLUTICASONE Yes [id number] SHAKE U nivers PROPIONATE 8-16 LIQUID AND ity of 50 00:00: USE 1 TO 2 [place] mcg/actuati 00 SPRAYS IN Med ical on nasal EACH Branch spray NOSTRIL IN THE MORNING FLUTICASONE Yes [id number] SHAKE U nivers PROPIONATE 8-16 LIQUID AND ity of 50 00:00: USE 1 TO 2 [place] mcg/actuati 00 SPRAYS IN Med ical on nasal EACH Branch spray NOSTRIL IN THE MORNING FLUTICASONE Yes [id number] SHAKE U nivers PROPIONATE 8-16 LIQUID AND ity of 50 00:00: USE 1 TO 2 [place] mcg/actuati 00 SPRAYS IN Med ical on nasal EACH Branch spray NOSTRIL IN THE MORNING FLUTICASONE 0 Yes [id number] SHAKE U nivers PROPIONATE 8-16 LIQUID AND ity of 50 00:00: USE 1 TO 2 [place] mcg/actuati 00 SPRAYS IN Med ical on nasal EACH Branch spray NOSTRIL IN THE MORNING FLUTICASONE 2022- No [id number] SHAKE Univers PROPIONATE 8-16 09-16 LIQUID AND it y of 50 00:00: 00:00 USE 1 TO 2 [place] mcg/actuati 00 :00 SPRAYS IN Med ical on nasal EACH Branch spray NOSTRIL IN THE MORNING SPIRONOLACT Yes [id number] 25mg TAKE 1 Univers ONE 25 mg 7-28 TABLET BY ity o f tablet 00:00: MOUTH IN [place] 00 THE Medical MORNING Branch SPIRONOLACT 0 Yes [id number] 25mg TAKE 1 Univers ONE 25 mg 7-28 TABLET BY ity o f tablet 00:00: MOUTH IN [place] 00 THE Medical MORNING Branch SPIRONOLACT 0 Yes [id number] 25mg TAKE 1 Univers ONE 25 mg 7-28 TABLET BY ity o f tablet 00:00: MOUTH IN [place] 00 THE Medical MORNING Branch SPIRONOLACT 0 Yes [id number] 25mg TAKE 1 [facility] ONE 25 mg 7-28 TABLET BY ity o f tablet 00:00: MOUTH IN [place] 00 THE Medical MORNING Branch SPIRONOLACT 0 Yes [id number] 25mg TAKE 1 [facility] ONE 25 mg 7-28 TABLET BY ity o f tablet 00:00: MOUTH IN [place] 00 THE Medical MORNING Branch SPIRONOLACT 0 Yes [id number] 25mg TAKE 1 Univers ONE 25 mg 7-28 TABLET BY ity o f tablet 00:00: MOUTH IN [place] 00 THE Medical MORNING Branch SPIRONOLACT 2023-0 Yes [id number] 25mg TAKE 1 Univers ONE 25 mg 7-28 TABLET BY ity o f tablet 00:00: MOUTH IN [place] 00 THE Medical MORNING Branch SPIRONOLACT 2022-0 Yes [id number] 25mg TAKE 1 Univers ONE 25 mg 7-28 TABLET BY ity o f tablet 00:00: MOUTH IN [place] 00 THE Medical MORNING Branch SPIRONOLACT 2022-0 Yes [id number] 25mg TAKE 1 Univers ONE 25 mg 7-28 TABLET BY ity o f tablet 00:00: MOUTH IN [place] 00 THE Medical MORNING Branch SPIRONOLACT 2022-0 Yes [id number] 25mg TAKE 1 Univers ONE 25 mg 7-28 TABLET BY ity o f tablet 00:00: MOUTH IN [place] 00 THE Medical MORNING Branch SPIRONOLACT 2022-0 Yes [id number] 25mg TAKE 1 Univers ONE 25 mg 7-28 TABLET BY ity o f tablet 00:00: MOUTH IN [place] 00 THE Medical MORNING Branch SPIRONOLACT 2022-0 Yes [id number] 25mg TAKE 1 Univers ONE 25 mg 7-28 TABLET BY ity o f tablet 00:00: MOUTH IN [place] 00 THE Medical MORNING Branch SPIRONOLACT 2022-0 Yes [id number] 25mg TAKE 1 Univers ONE 25 mg 7-28 TABLET BY ity o f tablet 00:00: MOUTH IN [place] 00 THE Medical MORNING Branch SPIRONOLACT 2022-0 Yes [id number] 25mg TAKE 1 Univers ONE 25 mg 7-28 TABLET BY ity o f tablet 00:00: MOUTH IN [place] 00 THE Medical MORNING Branch SPIRONOLACT 2022-0 Yes [id number] 25mg TAKE 1 Univers ONE 25 mg 7-28 TABLET BY ity o f tablet 00:00: MOUTH IN [place] 00 THE Medical MORNING Branch SPIRONOLACT 2022-0 Yes [id number] 25mg TAKE 1 [facility] ONE 25 mg 7-28 TABLET BY ity o f tablet 00:00: MOUTH IN [place] 00 THE Medical MORNING Branch SPIRONOLACT 2022-0 Yes [id number] 25mg TAKE 1 [facility] ONE 25 mg 7-28 TABLET BY ity o f tablet 00:00: MOUTH IN [place] 00 THE Medical MORNING Branch SPIRONOLACT 2022-0 Yes [id number] 25mg TAKE 1 [facility] ONE 25 mg 7-28 TABLET BY ity o f tablet 00:00: MOUTH IN [place] 00 THE Medical MORNING Branch SPIRONOLACT Yes [id number] 25mg TAKE 1 [facility] ONE 25 mg 7-28 TABLET BY ity o f tablet 00:00: MOUTH IN [place] THE Medical MORNING Branch SPIRONOLACT Yes [id number] 25mg TAKE 1 [facility] ONE 25 mg 7-28 TABLET BY ity o f tablet 00:00: MOUTH IN [place] THE Medical MORNING Branch Insulin Yes [id number] ADMINISTER [facility] Glargine 7-17 30 UNITS ity of (LANTUS 00:00: UNDER THE [place] SOLOSTAR 00 SKIN TWICE Medic al U-100 DAILY Branch INSULIN) 100 unit/mL (3 mL) injection Insulin Yes [id number] ADMINISTER Univers Glargine 7-17 30 UNITS ity of (LANTUS 00:00: UNDER THE [facility] 00 SKIN TWICE Medic al U-100 DAILY Branch INSULIN) 100 unit/mL (3 mL) injection Insulin Yes [id number] ADMINISTER Univers Glargine 7-17 30 UNITS ity of ([facility]US 00:00[facility]-100 DAILY Branch INSULIN) 100 unit/mL (3 mL) injection Insulin 2022- No [id number] ADMINISTER Univers Glargine 7-17 08-18 30 UNITS ity of ([place] 00:00: 00:00 UNDER THE [facility] SOLOSTAL 00 :00 SKIN TWICE Medic al U-100 DAILY Branch INSULIN) 100 unit/mL (3 mL) injection FLUTICASONE Yes [id number] SHAKE U nivers PROPIONATE 6-28 LIQUID AND ity of 50 00:00: USE 1 TO 2 [place] mcg/actuati 00 SPRAYS IN Med ical on nasal EACH Branch spray NOSTRIL IN THE MORNING FLUTICASONE Yes [id number] SHAKE U nivers PROPIONATE 6-28 LIQUID AND ity of 50 00:00: USE 1 TO 2 [place] mcg/actuati 00 SPRAYS IN Med ical on nasal EACH Branch spray NOSTRIL IN THE MORNING FLUTICASONE Yes [id number] SHAKE U nivers PROPIONATE 6-28 LIQUID AND ity of 50 00:00: USE 1 TO 2 [place] mcg/actuati 00 SPRAYS IN Med ical on nasal EACH Branch spray NOSTRIL IN THE MORNING FLUTICASONE 2022- No [id number] JEYSON [facility] PROPIONATE 03-22 08-16 LIQUID AND it y of 50 00:00: 00:00 USE 1 TO 2 [place] mcg/actuati 00 :00 SPRAYS IN Med ical on nasal EACH Branch spray NOSTRIL IN THE MORNING Insulin Yes [id number] ADMINISTER [facility] Glargine 03-13 30 UNITS ity of ([place] 00:00: UNDER THE [place] SOLOSTAR 00 SKIN TWICE Medic al U-100 DAILY Branch INSULIN) 100 unit/mL (3 mL) injection Insulin Yes [id number] ADMINISTER [facility] Glargine 03-13 30 UNITS ity of ([place] 00:00: UNDER THE [place] SOLOSTAR 00 SKIN TWICE Medic al U-100 DAILY Branch INSULIN) 100 unit/mL (3 mL) injection Insulin 2022- No [id number] ADMINISTER [facility] Glargine 03-13 07-17 30 UNITS ity of ([place] 00:00: 00:00 [place] THE [place] SOLOSTAR 00 :00 SKIN TWICE Medic al U-100 DAILY Branch INSULIN) 100 unit/mL (3 mL) injection traMADoL No 50mg 50 mg, Univer s (ULTRAM) 02-20 Oral, ONCE ity of tablet 50 06:45: 05:58 NOW, 1 [place] mg 00 :00 dose, On Medical Mon Branch 02/20/23 at 0145, KRAIG furosemide 2022- No 20mg 20 mg, IV U nivers (LASIX) 02-20 Push, ity of injection 05:45: 05:45 ONCE, 1 [place] 20 mg 00 :00 dose, On Medical Mon Branch 02/20/23 at 0045, KRAIG ketorolac 2022- No 30mg 30 mg, Unive rs (TORADOL) 02-20 Slow IV ity of injection 04:45: 03:56 Push, [place] 30 mg 00 :00 ONCE, 1 Medical dose, On Branch 02/19/23 at 2345, Routine acetaminoph 2022- No 1000mg 1,000 mg, Univers en 02-20 Oral, ity of (TYLENOL) 03:00: 02:54 ONCE, 1 [place] tablet 00 :00 dose, On Medical 1,000 mg [facility] 02/19/23 at 2200, KRAIG OXcarbazepi 3-0 Yes Take by Uni vers ne 150 mg 5-29 mouth once ity of tablet 01:07: now. [address] OXcarbazepi 2023-0 Yes Take by Uni vers ne 150 mg 5-29 mouth once ity of tablet 01:07: now. [address] Branch OXcarbazepi 2023-0 Yes Take by Uni vers ne 150 mg 5-29 mouth once ity of tablet 01:07: now. [address] OXcarbazepi 3-0 Yes Take by Uni vers ne 150 mg 5-29 mouth once ity of tablet 01:07: now. [address] OXcarbazepi 2023-0 Yes Take by Uni vers ne 150 mg 5-29 mouth once ity of tablet 01:07: now. [address] OXcarbazepi 2023-0 Yes Take by Uni vers ne 150 mg 5-29 mouth once ity of tablet 01:07: now. [address] OXcarbazepi 2023-0 Yes Take by Uni vers ne 150 mg 5-29 mouth once ity of tablet 01:07: now. [address] OXcarbazepi 2023-0 Yes Take by Uni vers ne 150 mg 5-29 mouth once ity of tablet 01:07: now. [address] furosemide 3-0 Yes [id number] 40mg Take 1 U nivers (LASIX) 40 5-29 tablet by ity of mg tablet 00:00: mouth [place] 00 the Medical morning. Branch furosemide 3-0 Yes [id number] 40mg Take 1 U nivers (LASIX) 40 5-29 tablet by ity of mg tablet 00:00: mouth in [place] 00 the Medical morning. Branch furosemide 3-0 Yes [id number] 40mg Take 1 U nivers (LASIX) 40 5-29 tablet by [place]y of mg tablet 00:00: mouth [place] 00 the Medical morning. Branch furosemide 3-0 Yes [id number] 40mg Take 1 U nivers (LASIX) 40 5-29 tablet by ity of mg tablet 00:00: mouth in [place] 00 the Medical morning. Branch furosemide 3-0 Yes [id number] 40mg Take 1 U nivers (LASIX) 40 5-29 tablet by [place]y of mg tablet 00:00: mouth in [place] 00 the Medical morning. Branch furosemide 3-0 Yes [id number] 40mg Take 1 U nivers (LASIX) 40 5-29 tablet by [place]y of mg tablet 00:00: mouth in [place] 00 the Medical morning. Branch furosemide 3-0 Yes [id number] 40mg Take 1 U nivers (LASIX) 40 5-29 tablet by [place]y of mg tablet 00:00: mouth [place] 00 the Medical morning. Branch furosemide 2022-0 Yes [id number] 40mg Take 1 U nivers (LASIX) 40 5-29 tablet by ity of mg tablet 00:00: mouth in [place] 00 the Medical morning. Branch furosemide 2022-0 Yes [id number] 40mg Take 1 U nivers (LASIX) 40 5-29 tablet by [place]y of mg tablet 00:00: mouth [place] 00 the Medical morning. Branch furosemide 2022-0 Yes [id number] 40mg Take 1 U nivers (LASIX) 40 5-29 tablet by ity of mg tablet 00:00: mouth in [place] 00 the Medical morning. Branch furosemide 3-0 Yes [id number] 40mg Take 1 U nivers (LASIX) 40 5-29 tablet by ity of mg tablet 00:00: mouth [place] 00 the Medical morning. Branch furosemide 3-0 Yes [id number] 40mg Take 1 U nivers (LASIX) 40 5-29 tablet by ity of mg tablet 00:00: mouth [place] 00 the Medical morning. Branch furosemide 3-0 Yes [id number] 40mg Take 1 U nivers (LASIX) 40 5-29 tablet by ity of mg tablet 00:00: mouth [place] 00 the Medical morning. Branch furosemide 2023-0 Yes [id number] 40mg Take 1 U nivers (LASIX) 40 5-29 tablet by ity of mg tablet 00:00: mouth [place] 00 the Medical morning. Branch furosemide 2023-0 Yes [id number] 40mg Take 1 U nivers (LASIX) 40 5-29 tablet by ity of mg tablet 00:00: mouth in [place] 00 the Medical morning. Branch furosemide 3-0 Yes [id number] 40mg Take 1 U nivers (LASIX) 40 5-29 tablet by ity of mg tablet 00:00: mouth in [place] 00 the Medical morning. Branch furosemide 3-0 Yes [id number] 40mg Take 1 U nivers (LASIX) 40 5-29 tablet by ity of mg tablet 00:00: mouth [place] 00 the Medical morning. Branch furosemide 2022-0 Yes [id number] 40mg Take 1 U nivers (LASIX) 40 5-29 tablet by ity of mg tablet 00:00: mouth [place] 00 the Medical morning. Branch furosemide 2022-0 Yes [id number] 40mg Take 1 U nivers (LASIX) 40 5-29 tablet by ity of mg tablet 00:00: mouth [place] 00 the Medical morning. Branch furosemide 2022-0 Yes [id number] 40mg Take 1 U nivers (LASIX) 40 5-29 tablet by ity of mg tablet 00:00: mouth [place] the Medical morning. Branch furosemide 2022-0 Yes [id number] 40mg Take 1 U nivers (LASIX) 40 5-29 tablet by ity of mg tablet 00:00: mouth [place] 00 the Medical morning. Branch furosemide 2022-0 Yes [id number] 40mg Take 1 U nivers (LASIX) 40 5-29 tablet by [place]y of mg tablet 00:00: mouth [place] 00 the Medical morning. Branch furosemide 3-0 Yes [id number] 40mg Take 1 U nivers (LASIX) 40 5-29 tablet by ity of mg tablet 00:00: mouth [place] 00 the Medical morning. Branch furosemide 3-0 Yes [id number] 40mg Take 1 U nivers (LASIX) 40 5-29 tablet by ity of mg tablet 00:00: mouth [place] 00 the Medical morning. Branch furosemide 2023-0 Yes [id number] 40mg Take 1 U nivers (LASIX) 40 5-29 tablet by ity of mg tablet 00:00: mouth [place] 00 the Medical morning. Branch furosemide 2023-0 Yes [id number] 40mg Take 1 U nivers (LASIX) 40 5-29 tablet by ity of mg tablet 00:00: mouth [place] 00 the Medical morning. Branch lurasidone Yes 1{tbl} Take 1 Uni vers 120 mg Tab 5-22 tablet by ity of 16:04: mouth at [place] 59 bedtime. Medical Branch lurasidone Yes 1{tbl} Take 1 Uni vers 120 mg Tab 5-22 tablet by ity of 16:04: mouth at [place] 59 bedtime. Medical Branch lurasidone Yes 1{tbl} Take 1 Uni vers 120 mg Tab 5-22 tablet by ity of 16:04: mouth at [place] 59 bedtime. Medical Branch lurasidone Yes 1{tbl} Take 1 Uni vers 120 mg Tab 5-22 tablet by ity of 16:04: mouth at [place] 59 bedtime. Medical Branch lurasidone Yes 1{tbl} Take 1 Uni vers 120 mg Tab 5-22 tablet by ity of 16:04: mouth at [place] 59 bedtime. Medical Branch lurasidone Yes 1{tbl} Take 1 Uni vers 120 mg Tab 5-22 tablet by ity of 16:04: mouth at [place] 59 bedtime. Medical Branch lurasidone Yes 1{tbl} Take 1 Uni vers 120 mg Tab 5-22 tablet by ity of 16:04: mouth at [place] 59 bedtime. Medical Branch lurasidone Yes 1{tbl} Take 1 Uni vers 120 mg Tab 5-22 tablet by ity of 16:04: mouth at [place] 59 bedtime. Medical Branch lurasidone Yes 1{tbl} Take 1 Uni vers 120 mg Tab 5-22 tablet by ity of 16:04: mouth at [place] 59 bedtime. Medical Branch lurasidone Yes 1{tbl} Take 1 Uni vers 120 mg Tab 5-22 tablet by ity of 16:04: mouth at [place] 59 bedtime. Medical Branch lurasidone Yes 1{tbl} Take 1 Uni vers 120 mg Tab 5-22 tablet by ity of 16:04: mouth at [place] 59 bedtime. Medical Branch semaglutide Yes [id number] 1mg inject 1 Univers (OZEMPIC) 1 5-22 mg under ity of mg/dose (4 00:00: the skin Price as mg/3 mL) 00 weekly. Medical [facility] Branch methocarbam 2022-0 Yes [id number] 500mg Take 1 [facility] oL 500 mg 5-22 tablet by ity o f tablet 00:00: mouth 4 00 (four) Medical times Branch daily as needed for Pain (scale 7-10). Insulin 2022-0 Yes [id number] ADMINISTER [facility] Glargine 5-22 40 UNITS ity of ([place] 00:00: UNDER THE [place] SOLOSTAR 00 SKIN TWICE Medic al U-100 DAILY Branch INSULIN) 100 unit/mL (3 mL) injection semaglutide 2022-0 Yes [id number] 1mg inject 1 Univers (OZEMPIC) 1 5-22 mg under ity of mg/dose (4 00:00: the skin [place] as mg/3 mL) 00 weekly. [facility] methocarbam 2022-0 Yes [id number] 500mg Take 1 [facility] oL 500 mg 5-22 tablet by ity o f tablet 00:00: mouth 4 (four) Medical times Branch daily as needed for Pain (scale 7-10). Insulin 2022-0 Yes [id number] ADMINISTER [facility] Glargine 5-22 40 UNITS ity of ([place] 00:00: UNDER THE [place] SOLOSTAR 00 SKIN TWICE Medic al U-100 DAILY Branch INSULIN) 100 unit/mL (3 mL) injection semaglutide 2022-0 Yes [id number] 1mg inject 1 Univers (OZEMPIC) 1 5-22 mg under ity of mg/dose (4 00:00: the skin [place] as mg/3 mL) 00 weekly. [facility] methocarbam 2022-0 Yes [id number] 500mg Take 1 Univers oL 500 mg 5-22 tablet by ity o f tablet 00:00: mouth 4 00 (four) Medical times Branch daily as needed for Pain (scale 7-10). Insulin 2022-0 Yes [id number] ADMINISTER [facility] Glargine 5-22 40 UNITS ity of ([place] 00:00: UNDER THE [place] SOLOSTAR 00 SKIN TWICE Medic al U-100 DAILY Branch INSULIN) 100 unit/mL (3 mL) injection semaglutide 2022-0 Yes [id number] 1mg inject 1 Univers (OZEMPIC) 1 5-22 mg under ity of mg/dose (4 00:00: the skin [place] mg/3 mL) 00 weekly. Medical [facility] Branch methocarbam 2022-0 Yes [id number] 500mg Take 1 [facility] oL 500 mg 5-22 tablet by ity o f tablet 00:00: mouth 4 [place] 00 (four) Medical times Branch daily as needed for Pain (scale 7-10). Insulin 2022-0 Yes [id number] ADMINISTER [facility] Glargine 5-22 40 UNITS ity of ([place] 00:00: UNDER THE [place] SOLOSTAR 00 SKIN TWICE Medic al U-100 DAILY Branch INSULIN) 100 unit/mL (3 mL) injection semaglutide 2022-0 Yes [id number] 1mg inject 1 Univers (OZEMPIC) 1 5-22 mg under ity of mg/dose (4 00:00: the skin Price as mg/3 mL) [address] [facility] methocarbam 2022-0 Yes [id number] 500mg Take 1 Univers oL 500 mg 5-22 tablet by ity o f tablet 00:00: mouth 4 [place] 00 (four) Medical times Branch daily as needed for Pain (scale 7-10). Insulin 2022-0 Yes [id number] ADMINISTER [facility] Glargine 5-22 40 UNITS ity of ([place] 00:00: UNDER THE [place] SOLOSTAR 00 SKIN TWICE Medic al U-100 DAILY Branch INSULIN) 100 unit/mL (3 mL) injection semaglutide 2022-0 Yes [id number] 1mg inject 1 Univers (OZEMPIC) 1 5-22 mg under ity of mg/dose (4 00:00: the skin Price as mg/3 mL) 00 weekly. [facility] methocarbam 2022-0 Yes [id number] 500mg Take 1 Univers oL 500 mg 5-22 tablet by ity o f tablet 00:00: mouth 4 [place] 00 (four) Medical times Branch daily as needed for Pain (scale 7-10). semaglutide 2022-0 Yes [id number] 1mg inject 1 Univers (OZEMPIC) 1 5-22 mg under ity of mg/dose (4 00:00: the skin Price as mg/3 mL) 00 weekly. Medical [facility] Branch methocarbam 3-0 Yes [id number] 500mg Take 1 Univers oL 500 mg 5-22 tablet by ity o f tablet 00:00: mouth 4 [place] 00 (four) Medical times Branch daily as needed for Pain (scale 7-10). semaglutide 3-0 Yes [id number] 1mg inject 1 Univers (OZEMPIC) 1 5-22 mg under ity of mg/dose (4 00:00: the skin [place] mg/3 mL) 00 weekly. Medical PnIj Branch methocarbam 3-0 Yes [id number] 500mg Take 1 [facility] oL 500 mg 5-22 tablet by ity o f tablet 00:00: mouth 4 00 (four) Medical times Branch daily as needed for Pain (scale 7-10). semaglutide 2022-0 Yes [id number] 1mg inject 1 Univers (OZEMPIC) 1 5-22 mg under ity of mg/dose (4 00:00: the skin Price as mg/3 mL) 00 weekly. Medical [facility] Branch methocarbam 2022-0 Yes [id number] 500mg Take 1 Univers oL 500 mg 5-22 tablet by ity o f tablet 00:00: mouth 4 00 (four) Medical times Branch daily as needed for Pain (scale 7-10). semaglutide 2022-0 Yes [id number] 1mg inject 1 Univers (OZEMPIC) 1 5-22 mg under ity of mg/dose (4 00:00: the skin Price as mg/3 mL) 00 weekly. Medical [facility] Branch methocarbam 3-0 Yes [id number] 500mg Take 1 Univers oL 500 mg 5-22 tablet by ity o f tablet 00:00: mouth 4 [place] 00 (four) Medical times Branch daily as needed for Pain (scale 7-10). semaglutide 3-0 Yes [id number] 1mg inject 1 Univers (OZEMPIC) 1 5-22 mg under ity of mg/dose (4 00:00: the skin Price as mg/3 mL) 00 weekly. Medical Pn Branch methocarbam 2023-0 Yes [id number] 500mg Take 1 [facility] oL 500 mg 5-22 tablet by ity o f tablet 00:00: mouth 4 [place] 00 (four) Medical times Branch daily as needed for Pain (scale 7-10). methocarbam 2023-0 Yes [id number] 500mg Take 1 [facility] oL 500 mg 5-22 tablet by ity o f tablet 00:00: mouth (four) Medical times Branch daily as needed for Pain (scale 7-10). methocarbam 2023-0 Yes [id number] 500mg Take 1 [facility] oL 500 mg 5-22 tablet by ity o f tablet 00:00: mouth (four) Medical times Branch daily as needed for Pain (scale 7-10). methocarbam 2023-0 Yes [id number] 500mg Take 1 [facility] oL 500 mg 5-22 tablet by ity o f tablet 00:00: mouth (four) Medical times Branch daily as needed for Pain (scale 7-10). methocarbam 2023-0 Yes [id number] 500mg Take 1 [facility] oL 500 mg 5-22 tablet by ity o f tablet 00:00: mouth (four) Medical times Branch daily as needed for Pain (scale 7-10). methocarbam 2023-0 Yes [id number] 500mg Take 1 [facility] oL 500 mg 5-22 tablet by ity o f tablet 00:00: mouth (four) Medical times Branch daily as needed for Pain (scale 7-10). methocarbam 2023-0 Yes [id number] 500mg Take 1 [facility] oL 500 mg 5-22 tablet by ity o f tablet 00:00: mouth (four) Medical times Branch daily as needed for Pain (scale 7-10). methocarbam 2023-0 Yes [id number] 500mg Take 1 [facility] oL 500 mg 5-22 tablet by ity o f tablet 00:00: mouth (four) Medical times Branch daily as needed for Pain (scale 7-10). methocarbam 2023-0 Yes [id number] 500mg Take 1 [facility] oL 500 mg 5-22 tablet by ity o f tablet 00:00: mouth (four) Medical times Branch daily as needed for Pain (scale 7-10). methocarbam 2023-0 Yes [id number] 500mg Take 1 [facility] oL 500 mg 5-22 tablet by ity o f tablet 00:00: mouth (four) Medical times Branch daily as needed for Pain (scale 7-10). methocarbam 2022-0 Yes [id number] 500mg Take 1 [facility] oL 500 mg 5-22 tablet by ity o f tablet 00:00: mouth 4 00 (four) Medical times Branch daily as needed for Pain (scale 7-10). methocarbam 2022-0 Yes [id number] 500mg Take 1 [facility] oL 500 mg 5-22 tablet by ity o f tablet 00:00: mouth 4 00 (four) Medical times Branch daily as needed for Pain (scale 7-10). methocarbam 2022- No [id number] 500mg Take 1 Univers oL 500 mg -16 06-12 tablet by ity of tablet 00:00: 00:00 mouth 4 [place] 00 :00 (four) Medical times Branch daily as needed for Pain (scale 7-10). methocarbam 2022-2022- No [id number] 500mg Take 1 Univers oL 500 mg -16 06-12 tablet by ity of tablet 00:00: 00:00 mouth 4 [place] 00 :00 (four) Medical times Branch daily as needed for Pain (scale 7-10). semaglutide 2022- No [id number] 1mg inject 1 Univers (OZEMPIC) 1 5-22 08-22 mg under ity of mg/dose (4 00:00: 00:00 the skin [place] mg/3 mL) 00 :00 weekly. Medical PnIj Branch semaglutide 2022- No [id number] 1mg inject 1 Univers (OZEMPIC) 1 5-22 08-22 mg under ity of mg/dose (4 00:00: 00:00 the skin [place] mg/3 mL) 00 :00 weekly. Medical PnIj Branch Insulin 2022- No [id number] ADMINISTER [facility] Glargine 02-13 06-19 40 UNITS ity of ([place] 00:00: 00:00 UNDER THE [place] SOLOSTAR 00 :00 SKIN TWICE Medic al U-100 DAILY Branch INSULIN) 100 unit/mL (3 mL) injection terconazole 2022- No [id number] 80mg Insert 1 [facility] 80 mg 02-12 05-25 Suppositor ity of vaginal 00:00: 04:59 y into [place] suppository 00 :00 vagina at [facility] for 3 days. terconazole 2022- No [id number] 80mg Insert 1 Univers 80 mg 5-21 05-25 Suppositor ity of vaginal 00:00: 04:59 y into [place] suppository 00 :00 vagina at [facility] for 3 days. terconazole 2022- No [id number] 80mg Insert 1 Univers 80 mg 5-21 05-25 Suppositor ity of vaginal 00:00: 04:59 y into [place] suppository 00 :00 vagina at [facility] for 3 days. terconazole 2022- No [id number] 80mg Insert 1 Univers 80 mg 5-21 05-25 Suppositor ity of vaginal 00:00: 04:59 y into [place] suppository 00 :00 vagina at [facility] for 3 days. Insulin Yes [id number] ADMINISTER [facility] Glargine 5-05 30 UNITS ity of ([place] 00:00: UNDER THE [place] SOLOSTAR 00 SKIN TWICE Medic al U-100 DAILY Branch INSULIN) 100 unit/mL (3 mL) injection Insulin Yes [id number] ADMINISTER [facility] Glargine 5-05 30 UNITS ity of ([place] 00:00: UNDER THE [place] SOLOSTAR 00 SKIN TWICE Medic al U-100 DAILY Branch INSULIN) 100 unit/mL (3 mL) injection Insulin Yes [id number] ADMINISTER [facility] Glargine 5-05 30 UNITS ity of ([place] 00:00: UNDER THE [place] SOLOSTAR 00 SKIN TWICE Medic al U-100 DAILY Branch INSULIN) 100 unit/mL (3 mL) injection Insulin Yes [id number] ADMINISTER [facility] Glargine 5-05 30 UNITS ity of ([place] 00:00: UNDER THE [place] SOLOSTAR 00 SKIN TWICE Medic al U-100 DAILY Branch INSULIN) 100 unit/mL (3 mL) injection Insulin Yes [id number] ADMINISTER [facility] Glargine 5-05 30 UNITS ity of ([place] 00:00: UNDER THE [place] SOLOSTAR 00 SKIN TWICE Medic al U-100 DAILY Branch INSULIN) 100 unit/mL (3 mL) injection Insulin Yes [id number] ADMINISTER [facility] Glargine 5-05 30 UNITS ity of ([place] 00:00: UNDER THE [place] SOLOSTAR 00 SKIN TWICE Medic al U-100 DAILY Branch INSULIN) 100 unit/mL (3 mL) injection Insulin Yes [id number] ADMINISTER [facility] Glargine 5-05 30 UNITS ity of ([place] 00:00: UNDER THE [place] SOLOSTAR 00 SKIN TWICE Medic al U-100 DAILY Branch INSULIN) 100 unit/mL (3 mL) injection Insulin Yes [id number] ADMINISTER [facility] Glargine 5-05 30 UNITS ity of ([place] 00:00: UNDER THE [place] SOLOSTAR 00 SKIN TWICE Medic al U-100 DAILY Branch INSULIN) 100 unit/mL (3 mL) injection Insulin Yes [id number] ADMINISTER [facility] Glargine 5-05 30 UNITS ity of ([place] 00:00: UNDER THE [place] SOLOSTAR 00 SKIN TWICE Medic al U-100 DAILY Branch INSULIN) 100 unit/mL (3 mL) injection Insulin Yes [id number] ADMINISTER [facility] Glargine 5-05 30 UNITS ity of ([place] 00:00: UNDER THE [place] SOLOSTAR 00 SKIN TWICE Medic al U-100 DAILY Branch INSULIN) 100 unit/mL (3 mL) injection Insulin Yes [id number] ADMINISTER [facility] Glargine 5-05 30 UNITS ity of ([place] 00:00: UNDER THE [place] SOLOSTAR 00 SKIN TWICE Medic al U-100 DAILY Branch INSULIN) 100 unit/mL (3 mL) injection Insulin 2022- No [id number] ADMINISTER [facility] Glargine 5-05 05-22 30 UNITS ity of ([place] 00:00: 00:00 UNDER THE [place] SOLOSTAR 00 :00 SKIN TWICE Medic al U-100 DAILY Branch INSULIN) 100 unit/mL (3 mL) injection Insulin 2022- No [id number] ADMINISTER [facility] Glargine 5-05 05-22 30 UNITS ity of ([place] 00:00: 00:00 UNDER THE [place] SOLOSTAR 00 :00 SKIN TWICE Medic al U-100 DAILY Branch INSULIN) 100 unit/mL (3 mL) injection semaglutide 2023-0 Yes [id number] INJECT Univers (OZEMPIC) 4-20 0.5MG ity of 0.25 mg or 00:00: UNDER THE [place] 0.5 mg(2 00 SKIN EVERY Medic al mg/1.5 mL) WEEK Branch PnIj semaglutide 2022-0 Yes [id number] INJECT Univers (OZEMPIC) 4-20 0.5MG ity of 0.25 mg or 00:00: UNDER THE [place] 0.5 mg(2 00 SKIN EVERY Medic al mg/1.5 mL) WEEK Branch PnIj semaglutide 2022-0 Yes [id number] INJECT Univers (OZEMPIC) 4-20 0.5MG ity of 0.25 mg or 00:00: UNDER THE [place] 0.5 mg(2 00 SKIN EVERY Medic al mg/1.5 mL) WEEK Branch PnIj semaglutide Yes [id number] INJECT Univers (OZEMPIC) 4-20 0.5MG ity of 0.25 mg or 00:00: UNDER THE [place] 0.5 mg(2 00 SKIN EVERY Medic al mg/1.5 mL) WEEK Branch PnIj semaglutide 2022-0 Yes [id number] INJECT Univers (OZEMPIC) 4-20 0.5MG ity of 0.25 mg or 00:00: UNDER THE [place] 0.5 mg(2 00 SKIN EVERY Medic al mg/1.5 mL) WEEK Branch PnIj semaglutide Yes [id number] INJECT Univers (OZEMPIC) 4-20 0.5MG ity of 0.25 mg or 00:00: UNDER THE [place] 0.5 mg(2 00 SKIN EVERY Medic al mg/1.5 mL) WEEK Branch PnIj semaglutide 2022-0 Yes [id number] INJECT Univers (OZEMPIC) 4-20 0.5MG ity of 0.25 mg or 00:00: UNDER THE [place] 0.5 mg(2 00 SKIN EVERY Medic al mg/1.5 mL) WEEK Branch PnIj semaglutide 2022-0 Yes [id number] INJECT Univers (OZEMPIC) 4-20 0.5MG ity of 0.25 mg or 00:00: UNDER THE [place] 0.5 mg(2 00 SKIN EVERY Medic al mg/1.5 mL) WEEK Branch PnIj semaglutide 2022-0 Yes [id number] INJECT Univers (OZEMPIC) 4-20 0.5MG ity of 0.25 mg or 00:00: UNDER THE [place] 0.5 mg(2 00 SKIN EVERY Medic al mg/1.5 mL) WEEK Branch PnIj semaglutide 2022-0 Yes [id number] INJECT Univers (OZEMPIC) 4-20 0.5MG ity of 0.25 mg or 00:00: UNDER THE [place] 0.5 mg(2 00 SKIN EVERY Medic al mg/1.5 mL) WEEK Branch PnIj semaglutide 2022-0 Yes [id number] INJECT Univers (OZEMPIC) 4-20 0.5MG ity of 0.25 mg or 00:00: UNDER THE [place] 0.5 mg(2 00 SKIN EVERY Medic al mg/1.5 mL) WEEK Branch PnIj semaglutide 2022-0 Yes [id number] INJECT [facility] (OZEMPIC) 4-20 0.5MG ity of 0.25 mg or 00:00: UNDER THE [place] 0.5 mg(2 00 SKIN EVERY Medic al mg/1.5 mL) WEEK Branch PnIj semaglutide 2022-0 Yes [id number] INJECT Univers (OZEMPIC) 4-20 0.5MG ity of 0.25 mg or 00:00: UNDER THE [place] 0.5 mg(2 00 SKIN EVERY Medic al mg/1.5 mL) WEEK Branch PnIj semaglutide 2022-0 Yes [id number] INJECT Univers (OZEMPIC) 4-20 0.5MG ity of 0.25 mg or 00:00: UNDER THE [place] 0.5 mg(2 00 SKIN EVERY Medic al mg/1.5 mL) WEEK Branch PnIj semaglutide 2022-0 2022- No [id number] INJECT Univers (OZEMPIC) 4-20 05-22 0.5MG ity of 0.25 mg or 00:00: 00:00 UNDER THE [place] 0.5 mg(2 00 :00 SKIN EVERY Medic al mg/1.5 mL) WEEK Branch PnIj semaglutide 2022-0 2022- No [id number] INJECT Univers (OZEMPIC) 4-20 05-22 0.5MG ity of 0.25 mg or 00:00: 00:00 UNDER THE [place] 0.5 mg(2 00 :00 SKIN EVERY Medic al mg/1.5 mL) WEEK Branch PnIj lactated 2022-0 Yes 1000mL at 75 Univer s ringers IV 4-19 mL/hr, ity of infusion 17:15: 1,000 mL, [place] 1,000 mL 00 IV Medical Infusion, Branch CONTINUOUS , Starting on Mon01/11/23 at 1215, Until Discontinu ed, Routine, PACU lactated 2022-2022- No 1000mL at 75 Unive rs ringers IV 4- 04-19 mL/hr, ity of infusion 17:15: 19:40 1,000 mL, [place] 1,000 mL 00 :42 IV Medical Infusion, Branch CONTINUOUS , Starting on Mon01/11/23 at 1215, Until Mon01/11/23 at 1440, Routine, PACU ondansetron 2022-0 Yes 4mg 4 mg, Slow Univers (ZOFRAN - IV Push, ity of (PF)) 17:12: PRN, 1 [place] injection 4 05 dose, Medical mg Starting Branch on Mon01/11/23 at 1212, Until Discontinu ed, Routine, Nausea and Vomiting (N/V), PACU ondansetron 2022- No 4mg 4 mg, Slow Univers (ZOFRAN 01-11-19 IV Push, ity of (PF)) 17:12: 19:40 PRN, 1 [place] injection 4 05 :42 dose, Medical mg Starting Branch on Mon01/11/23 at 1212, Until Mon01/11/23 at 1440, Routine, Nausea and Vomiting (N/V), PACU simethicone 2022-0 2022- No PRN, Unive rs (GAS RELIEF 01-11-19 Starting ity of (SIMETHICON 16:28: 17:10 on Mon Price as E)) 40 00 :58 01/11/23 at Medical mg/0.6 mL 1128, Branch drops Until Mon01/11/23 at 1210, Routine, Intra-op lactated 2022-0 2022- No 1000mL at 42 Unive rs ringers IV 01-11-19 mL/hr, ity of infusion 14:30: 14:40 1,000 mL, [place] as 1,000 mL 00 :00 IV Medical Infusion, Branch ONCE, 1 dose, On Mon01/11/23 at 0930, Routine, Endo Pre-op lactated 2022-0 2022- No 1000mL at 42 Unive rs ringers IV 01-11 04-19 mL/hr, ity of infusion 14:30: 14:40 1,000 mL, Price as 1,000 mL 00 :00 IV Medical Infusion, Branch ONCE, 1 dose, On Mon01/11/23 at 0930, Routine, Endo Pre-op linaCLOtide 2022-0 3- No [id number] 145ug Take 1 [facility] (LINZESS) 4-17 05-18 capsule by ity of 145 mcg 00:00: 04:59 mouth in [place] capsule 00 :00 the Medical morning Branch for 30 days. linaCLOtide 2022-0 3- No [id number] 145ug Take 1 [facility] (LINZESS) 4-17 05-18 capsule by ity of 145 mcg 00:00: 04:59 mouth in [place] capsule 00 :00 the Medical morning Branch for 30 days. linaCLOtide 2022-0 3- No [id number] 145ug Take 1 Univers (LINZESS) 4-17 05-18 capsule by ity of 145 mcg 00:00: 04:59 mouth in [place] capsule 00 :00 the Medical morning Branch for 30 days. linaCLOtide 3-0 3- No [id number] 145ug Take 1 Univers (LINZESS) 4-17 05-18 capsule by ity of 145 mcg 00:00: 04:59 mouth in [place] capsule 00 :00 the Medical morning Branch for 30 days. linaCLOtide 3-0 2023- No [id number] 145ug Take 1 Univers (LINZESS) 4-17 05-18 capsule by ity of 145 mcg 00:00: 04:59 mouth in [place] capsule 00 :00 the Medical morning Branch for 30 days. linaCLOtide 3-0 2023- No [id number] 145ug Take 1 Univers (LINZESS) 4-17 05-18 capsule by ity of 145 mcg 00:00: 04:59 mouth in [place] capsule 00 :00 the Medical morning Branch for 30 days. linaCLOtide 3-0 2023- No [id number] 145ug Take 1 Univers (LINZESS) 4-17 05-18 capsule by ity of 145 mcg 00:00: 04:59 mouth in [place] capsule 00 :00 the Medical morning Branch for 30 days. linaCLOtide 2023-0 2023- No [id number] 145ug Take 1 [facility] (LINZESS) 4-17 05-18 capsule by ity of 145 mcg 00:00: 04:59 mouth in [place] capsule 00 :00 the Medical morning Branch for 30 days. linaCLOtide 3-0 2023- No [id number] 145ug Take 1 Univers (LINZESS) 4-17 05-18 capsule by ity of 145 mcg 00:00: 04:59 mouth in [place] capsule 00 :00 the Medical morning Branch for 30 days. linaCLOtide 3-0 2023- No [id number] 145ug Take 1 [facility] (LINZESS) 4-17 05-18 capsule by ity of 145 mcg 00:00: 04:59 mouth in [place] capsule 00 :00 the Medical morning Branch for 30 days. linaCLOtide 3-0 2023- No [id number] 145ug Take 1 Univers (LINZESS) 4-17 05-18 capsule by ity of 145 mcg 00:00: 04:59 mouth in [place] capsule 00 :00 the Medical morning Branch for 30 days. linaCLOtide 3-0 2023- No [id number] 145ug Take 1 Univers (LINZESS) 4-17 05-18 capsule by ity of 145 mcg 00:00: 04:59 mouth in [place] capsule 00 :00 the Medical morning Branch for 30 days. linaCLOtide 3-0 2023- No [id number] 145ug Take 1 Univers (LINZESS) 4-17 05-18 capsule by ity of 145 mcg 00:00: 04:59 mouth in [place] capsule 00 :00 the Medical morning Branch for 30 days. linaCLOtide 2023-0 2023- No [id number] 145ug Take 1 Univers (LINZESS) 4-17 05-18 capsule by ity of 145 mcg 00:00: 04:59 mouth in [place] capsule 00 :00 the Medical morning Branch for 30 days. linaCLOtide 2023-0 2023- No [id number] 145ug Take 1 Univers (LINZESS) 4-17 05-18 capsule by ity of 145 mcg 00:00: 04:59 mouth in [place] capsule 00 :00 the Medical morning Branch for 30 days. Insulin Yes [id number] ADMINISTER Univers Glargine 3-27 36 UNITS ity of (LANTUS 00:00: UNDER THE [place] SOLOSTAR 00 SKIN TWICE Medic al U-100 DAILY Branch INSULIN) 100 unit/mL (3 mL) injection Insulin Yes [id number] ADMINISTER Univers Glargine 3-27 36 UNITS ity of (LANTUS 00:00: [facility]-100 DAILY Branch INSULIN) 100 unit/mL (3 mL) injection Insulin Yes [id number] ADMINISTER Univers Glargine 3-27 36 UNITS ity of (LANTUS 00:00: [facility] Medic [facility] U-100 DAILY Branch INSULIN) 100 unit/mL (3 mL) injection Insulin Yes [id number] ADMINISTER [facility] Glargine 3-27 36 UNITS ity of (LANTUS 00:00: UNDER THE [facility] SKIN TWICE Medic al U-100 DAILY Branch INSULIN) 100 unit/mL (3 mL) injection Insulin Yes [id number] ADMINISTER Univers Glargine 3-27 36 UNITS ity of (LANTUS 00:00: UNDER THE [facility] 00 SKIN TWICE Medic al U-100 DAILY Branch INSULIN) 100 unit/mL (3 mL) injection Insulin Yes [id number] ADMINISTER Univers Glargine 3-27 36 UNITS ity of (LANTUS 00:00: UNDER THE [facility] SKIN TWICE Medic al U-100 DAILY Branch INSULIN) 100 unit/mL (3 mL) injection Insulin Yes [id number] ADMINISTER Univers Glargine 3-27 36 UNITS ity of (LANTUS 00:00: [facility] Medic [facility] U-100 DAILY Branch INSULIN) 100 unit/mL (3 mL) injection Insulin 2022- No [id number] ADMINISTER Univers Glargine 3-27 05-05 36 UNITS ity of (LANTUS 00:00: 00:00 UNDER THE [facility] SOLOSTAR 00 :00 SKIN TWICE Medic al U-100 DAILY Branch INSULIN) 100 unit/mL (3 mL) injection Insulin 2022- No [id number] ADMINISTER [facility] Glargine 3-27 05-05 36 UNITS ity of (LANTUS 00:00: 00:[place] SOL[place] 00 :00 SKIN TWICE Medic al U-100 DAILY Branch INSULIN) 100 unit/mL (3 mL) injection methylPREDN 2023-0 Yes [id number] Take by Univers ISolone 4 3-17 mouth ity of mg tablets 00:00: [place]-INSTRU [place] 00 CTIONS. Medical follow Branch package directions methylPREDN 2023-0 Yes [id number] Take by [facility] ISolone 4 3-17 mouth ity of mg tablets 00:00: SEE-INSTRU [place] 00 CTIONS. Medical follow Branch package directions methylPREDN 2023-0 Yes [id number] Take by [facility] ISolone 4 3-17 mouth ity of mg tablets 00:00: SEE-INSTRU [place] 00 CTIONS. Medical follow Branch package directions methylPREDN 2023-0 Yes [id number] Take by [facility] ISolone 4 3-17 mouth ity of mg tablets 00:00: SEE-INSTRU [place] 00 CTIONS. Medical follow Branch package directions methylPREDN 2023-0 Yes [id number] Take by [facility] ISolone 4 3-17 mouth ity of mg tablets 00:00: SEE-INSTRU [place] 00 CTIONS. Medical follow Branch package directions methylPREDN 2023-0 Yes [id number] Take by [facility] ISolone 4 3-17 mouth ity of mg tablets 00:00: SEE-INSTRU [place] 00 CTIONS. Medical follow Branch package directions methylPREDN 2023-0 Yes [id number] Take by [facility] ISolone 4 3-17 mouth ity of mg tablets 00:00: SEE-INSTRU [place] 00 CTIONS. Medical follow Branch package directions methylPREDN 2023-0 Yes [id number] Take by [facility] ISolone 4 3-17 mouth ity of mg tablets 00:00: SEE-INSTRU [place] 00 CTIONS. Medical follow Branch package directions methylPREDN 2023-0 Yes [id number] Take by [facility] ISolone 4 3-17 mouth ity of mg tablets 00:00: SEE-INSTRU [place] 00 CTIONS. Medical follow Branch package directions methylPREDN 2023-0 Yes [id number] Take by [facility] ISolone 4 3-17 mouth ity of mg tablets 00:00: SEE-INSTRU [place] 00 CTIONS. Medical follow Branch package directions methylPREDN 2023-0 Yes [id number] Take by [facility] ISolone 4 3-17 mouth ity of mg tablets 00:00: SEE-INSTRU [place] 00 CTIONS. Medical follow Branch package directions methylPREDN 2023-0 Yes [id number] Take by [facility] ISolone 4 3-17 mouth ity of mg tablets 00:00: SEE-INSTRU [place] 00 CTIONS. Medical follow Branch package directions methylPREDN 2023-0 Yes [id number] Take by [facility] ISolone 4 3-17 mouth ity of mg tablets 00:00: SEE-INSTRU [place] 00 CTIONS. Medical follow Branch package directions methylPREDN 2023-0 Yes [id number] Take by [facility] ISolone 4 3-17 mouth ity of mg tablets 00:00: SEE-INSTRU [place] 00 CTIONS. Medical follow Branch package directions methylPREDN 2023-0 Yes [id number] Take by [facility] ISolone 4 3-17 mouth ity of mg tablets 00:00: SEE-INSTRU [place] 00 CTIONS. Medical follow Branch package directions methylPREDN 2023-0 Yes [id number] Take by [facility] ISolone 4 3-17 mouth ity of mg tablets 00:00: SEE-INSTRU [place] 00 CTIONS. Medical follow Branch package directions methylPREDN 2023-0 Yes [id number] Take by [facility] ISolone 4 3-17 mouth ity of mg tablets 00:00: SEE-INSTRU [place] 00 CTIONS. Medical follow Branch package directions methylPREDN 2023-0 Yes [id number] Take by [facility] ISolone 4 3-17 mouth ity of mg tablets 00:00: SEE-INSTRU [place] 00 CTIONS. Medical follow Branch package directions methylPREDN 2023-0 Yes [id number] Take by [facility] ISolone 4 3-17 mouth ity of mg tablets 00:00: SEE-INSTRU [place] 00 CTIONS. Medical follow Branch package directions methylPREDN 2023-0 Yes [id number] Take by [facility] ISolone 4 3-17 mouth ity of mg tablets 00:00: SEE-INSTRU [place] 00 CTIONS. Medical follow Branch package directions methylPREDN 2023-0 Yes [id number] Take by [facility] ISolone 4 3-17 mouth ity of mg tablets 00:00: SEE-INSTRU [place] 00 CTIONS. Medical follow Branch package directions methylPREDN 2022-0 Yes [id number] Take by [facility] ISolone 4 3-17 mouth ity of mg tablets 00:00: SEE-INSTRU [place] 00 CTIONS. Medical follow Branch package directions methylPREDN 0 2022- No [id number] Take by [facility] 4 3-17 05-22 mouth ity of mg tablets 00:00: 00:00 SEE-INSTRU [place] 00 :00 CTIONS. Medical follow Branch package directions methylPREDN 0 2022- No [id number] Take by [place] [id number] 3-17 -22 mouth ity of mg tablets 00:00: 00:00 SEE-INSTRU [place] 00 :00 CTIONS. Medical follow Branch package directions acetaminoph 2022- No 1{tbl} 1 tablet, [facility] en-codeine 12-08 Oral, ity of (TYLENOL 22:45: 22:34 ONCE, 1 [place] #3) 300-30 00 :00 dose, On Medic al mg tablet 1 [place] Branch tablet 12/08/22 at 1745, KRAIG dexamethaso 2022- No 10mg 10 mg, [facility] 12-08 Intramuscu ity of (DECADRON 21:30: 21:30 lar, ONCE, [place] PHOSPHATE) 00 :00 1 dose, On Med ical injection [place] Branch 10 mg 12/08/22 at 1630, Routine oxymetazoli 2022- No 1{spray 1 [place], [facility] 12-08 } Nasal, ity of (OXYMETAZOL 20:45: 20:36 ONCE, 1 [place] INE HCL[place] 00 :00 dose, On Medical 0.05 % [place] Branch nasal spray 12/08/22 at 1 [place] 1545, KRAIG acetaminoph Yes [id number] 1{tbl} Take 1 Un [place] en-codeine 3-16 tablet by ity of (TYLENOL-CO 00:00: mouth [place] DEINE #3) 00 every 4 Medical 300-30 mg (four) Branch tablet hours as needed for Pain (scale 7-10). Indication s: acute pain acetaminoph 2023-0 Yes [id number] 1{tbl} Take 1 Un [place] en-codeine 3-16 tablet by ity of (TYLENOL-CO 00:00: mouth [place] DEINE #3) 00 every 4 Medical 300-30 mg (four) Branch tablet hours as needed for Pain (scale 7-10). Indication s: acute pain acetaminoph 2023-0 Yes 4647 1{tbl} Take 1 Un [place] en-codeine 3-16 tablet by ity of (TYLENOL-CO 00:00: mouth [place] DEINE #3) 00 every 4 Medical 300-30 mg (four) Branch tablet hours as needed for Pain (scale 7-10). Indication s: acute pain acetaminoph 2023-0 Yes 4647 1{tbl} Take 1 Un [place] en-codeine 3-16 tablet by ity of (TYLENOL-CO 00:00: mouth [place] DEINE #3) 00 every 4 Medical 300-30 mg (four) Branch tablet hours as needed for Pain (scale 7-10). Indication s: acute pain acetaminoph 2023-0 Yes 4647 1{tbl} Take 1 Un [place] en-codeine 3-16 tablet by ity of (TYLENOL-CO 00:00: mouth [place] DEINE #3) 00 every 4 Medical 300-30 mg (four) Branch tablet hours as needed for Pain (scale 7-10). Indication s: acute pain acetaminoph 2023-0 Yes 4647 1{tbl} Take 1 Un [place] en-codeine 3-16 tablet by ity of (TYLENOL-CO 00:00: mouth [place] DEINE #3) 00 every 4 Medical 300-30 mg (four) Branch tablet hours as needed for Pain (scale 7-10). Indication s: acute pain acetaminoph 2023-0 Yes 4647 1{tbl} Take 1 Un [place] en-codeine 3-16 tablet by ity of (TYLENOL-CO 00:00: mouth [place] DEINE #3) 00 every 4 Medical 300-30 mg (four) Branch tablet hours as needed for Pain (scale 7-10). Indication s: acute pain acetaminoph 2023-0 Yes 4647 1{tbl} Take 1 Un [place] en-codeine 3-16 tablet by ity of (TYLENOL-CO 00:00: mouth [place] DEINE #3) 00 every 4 Medical 300-30 mg (four) Branch tablet hours as needed for Pain (scale 7-10). Indication s: acute pain acetaminoph 2023-0 Yes 4647 1{tbl} Take 1 Un [place] en-codeine 3-16 tablet by ity of (TYLENOL-CO 00:00: mouth [place] DEINE #3) 00 every 4 Medical 300-30 mg (four) Branch tablet hours as needed for Pain (scale 7-10). Indication s: acute pain acetaminoph 2023-0 Yes 4647 1{tbl} Take 1 Un [place] en-codeine 3-16 tablet by ity of (TYLENOL-CO 00:00: mouth [place] DEINE #3) 00 every 4 Medical 300-30 mg (four) Branch tablet hours as needed for Pain (scale 7-10). Indication s: acute pain acetaminoph 2023-0 Yes 4647 1{tbl} Take 1 Un [place] en-codeine 3-16 tablet by ity of (TYLENOL-CO 00:00: mouth [place] DEINE #3) 00 every 4 Medical 300-30 mg (four) Branch tablet hours as needed for Pain (scale 7-10). Indication s: acute pain acetaminoph 2023-0 Yes 4647 1{tbl} Take 1 Un [place] en-codeine 3-16 tablet by ity of (TYLENOL-CO 00:00: mouth [place] DEINE #3) 00 every 4 Medical 300-30 mg (four) Branch tablet hours as needed for Pain (scale 7-10). Indication s: acute pain acetaminoph 2023-0 Yes 4647 1{tbl} Take 1 Un [place] en-codeine 3-16 tablet by ity of (TYLENOL-CO 00:00: mouth [place] DEINE #3) 00 every 4 Medical 300-30 mg (four) Branch tablet hours as needed for Pain (scale 7-10). Indication s: acute pain acetaminoph 2023-0 Yes 4647 1{tbl} Take 1 Un [place] en-codeine 3-16 tablet by ity of (TYLENOL-CO 00:00: mouth [place] DEINE #3) 00 every 4 Medical 300-30 mg (four) Branch tablet hours as needed for Pain (scale 7-10). Indication s: acute pain acetaminoph 2023-0 Yes 4647 1{tbl} Take 1 Un [place] en-codeine 3-16 tablet by ity of (TYLENOL-CO 00:00: mouth [place] DEINE #3) 00 every 4 Medical 300-30 mg (four) Branch tablet hours as needed for Pain (scale 7-10). Indication s: acute pain acetaminoph 2023-0 Yes 4647 1{tbl} Take 1 Un [place] en-codeine 3-16 tablet by ity of (TYLENOL-CO 00:00: mouth [place] DEINE #3) 00 every 4 Medical 300-30 mg (four) Branch tablet hours as needed for Pain (scale 7-10). Indication s: acute pain acetaminoph 2023-0 Yes 4647 1{tbl} Take 1 Un [place] en-codeine 3-16 tablet by ity of (TYLENOL-CO 00:00: mouth [place] DEINE #3) 00 every 4 Medical 300-30 mg (four) Branch tablet hours as needed for Pain (scale 7-10). Indication s: acute pain acetaminoph 2023-0 Yes 4647 1{tbl} Take 1 Un [place] en-codeine 3-16 tablet by ity of (TYLENOL-CO 00:00: mouth [place] DEINE #3) 00 every 4 Medical 300-30 mg (four) Branch tablet hours as needed for Pain (scale 7-10). Indication s: acute pain acetaminoph 2023-0 Yes 4647 1{tbl} Take 1 Un [place] en-codeine 3-16 tablet by ity of (TYLENOL-CO 00:00: mouth [place] DEINE #3) 00 every 4 Medical 300-30 mg (four) Branch tablet hours as needed for Pain (scale 7-10). Indication s: acute pain acetaminoph 2023-0 Yes 4647 1{tbl} Take 1 Un [place] en-codeine 3-16 tablet by ity of (TYLENOL-CO 00:00: mouth [place] DEINE #3) 00 every 4 Medical 300-30 mg (four) Branch tablet hours as needed for Pain (scale 7-10). Indication s: acute pain acetaminoph 2023-0 Yes 4647 1{tbl} Take 1 Un [place] en-codeine 3-16 tablet by ity of (TYLENOL-CO 00:00: mouth [place] DEINE #3) 00 every 4 Medical 300-30 mg (four) Branch tablet hours as needed for Pain (scale 7-10). Indication s: acute pain acetaminoph Yes 4647 1{tbl} Take 1 Un [place] en-codeine 3-16 tablet by ity of (TYLENOL-CO 00:00: mouth [place] DEINE #3) 00 every 4 Medical 300-30 mg (four) Branch tablet hours as needed for Pain (scale 7-10). Indication s: acute pain acetaminoph 2022- No 4647 1{tbl} Take 1 U nivers en-codeine 3-16 05-22 tablet by ity of (TYLENOL-CO 00:00: 00:00 [place] DE[place] #3) 00 :00 every 4 Medical 300-30 mg (four) Branch tablet hours as needed for Pain (scale 7-10). Indication s: acute pain acetaminoph 2022- No 4647 1{tbl} Take 1 U nivers en-codeine 3-16 05-22 tablet by ity of (TYLENOL-CO 00:00: 00:[place] DE[place] #3) 00 :00 every 4 Medical 300-30 mg (four) Branch tablet hours as needed for Pain (scale 7-10). Indication s: acute pain cefdinir 2022- No [id number] 300mg Take 1 U nivers 300 mg 3-16 03-24 capsule by ity of capsule 00:00: 04:59 mouth [place] 00 :00 every 12 Medical (twelve) Branch hours for 7 days. cefdinir 2022- No [id number] 300mg Take 1 U nivers 300 mg 3-16 03-24 capsule by ity of capsule 00:00: 04:59 mouth [place] 00 :00 every 12 Medical (twelve) Branch hours for 7 days. iron 2022- No [id number] 300mg 300 mg, IV Univers sucrose -15 11-21 Infusion, ity of (VENOFER) 19:15: 21:38 ONCE, [place] 300 mg in 00 :00 Administer Medi enrique NaCl 0.9% over 2.5 Branch (NS) 250 mL Hours, On infusion 11/15/22 at 1315, For 1 dose
Ran lashaent to receive Venofer 300 mg in 250 NacL infusion over 2.5 hours. First, test dose of &a mp;nbsp;Ve nofer (25 mg = 20 ml) & nbsp;as ordered by MD to run in over 20 min.
acetaminoph 2022- No 1000mg 1,000 mg, Univers en 11-15 Oral, ity of (TYLENOL) 04:45: 03:54 ONCE, 1 [place] tablet 00 :00 dose, On Medical 1,000 mg Mon Branch 11/14/22 at 2245, KRAIG linaCLOtide 2022-2022- No [id number] 145ug Take 1 Univers (LINZESS) 11-10 capsule by ity of 145 mcg 00:00: 04:59 mouth in [place] capsule 00 :00 the Medical morning Branch for 30 days. linaCLOtide 2022-0 3- No [id number] 145ug Take 1 Univers (LINZESS) 11-10 capsule by ity of 145 mcg 00:00: 04:59 mouth in [place] capsule 00 :00 the Medical morning Branch for 30 days. linaCLOtide 2022-0 3- No [id number] 145ug Take 1 Univers (LINZESS) 11-10 capsule by ity of 145 mcg 00:00: 04:59 mouth in [place] capsule 00 :00 the Medical morning Branch for 30 days. linaCLOtide 2022-0 2023- No [id number] 145ug Take 1 Univers (LINZESS) 11-10 capsule by ity of 145 mcg 00:00: 04:59 mouth in [place] capsule 00 :00 the Medical morning Branch for 30 days. linaCLOtide 2023-0 2023- No [id number] 145ug Take 1 Univers (LINZESS) 11-10 capsule by ity of 145 mcg 00:00: 04:59 mouth in [place] capsule 00 :00 the Medical morning Branch for 30 days. linaCLOtide 2022-0 2023- No [id number] 145ug Take 1 Univers (LINZESS) 11-10 capsule by ity of 145 mcg 00:00: 04:59 mouth in [place] capsule 00 :00 the Medical morning Branch for 30 days. linaCLOtide 2023-0 2023- No [id number] 145ug Take 1 Univers (LINZESS) 2-08 12-25 capsule by ity of 145 mcg 00:00: 04:59 mouth in [place] capsule 00 :00 the Medical morning Branch for 30 days. linaCLOtide 2023-0 2023- No [id number] 145ug Take 1 Univers (LINZESS) 2-08 12-25 capsule by ity of 145 mcg 00:00: 04:59 mouth in [place] capsule 00 :00 the Medical morning Branch for 30 days. linaCLOtide 2023-0 2023- No [id number] 145ug Take 1 Univers (LINZESS) 2-25 capsule by ity of 145 mcg 00:00: 04:59 mouth in [place] capsule 00 :00 the Medical morning Branch for 30 days. linaCLOtide 2023-0 2023- No [id number] 145ug Take 1 Univers (LINZESS) 212-17 capsule by ity of 145 mcg 00:00: 04:59 mouth in [place] capsule 00 :00 the Medical morning Branch for 30 days. linaCLOtide 2023-0 2023- No [id number] 145ug Take 1 Univers (LINZESS) 225 capsule by ity of 145 mcg 00:00: 04:59 mouth in [place] capsule 00 :00 the Medical morning Branch for 30 days. linaCLOtide 2023-0 2023- No [id number] 145ug Take 1 Univers (LINZESS) 2-25 capsule by ity of 145 mcg 00:00: 04:59 mouth in [place] capsule 00 :00 the Medical morning Branch for 30 days. linaCLOtide 2023-0 2023- No [id number] 145ug Take 1 Univers (LINZESS) 2-08 12-25 capsule by ity of 145 mcg 00:00: 04:59 mouth in [place] capsule 00 :00 the Medical morning Branch for 30 days. linaCLOtide 2023-0 2023- No [id number] 145ug Take 1 Univers (LINZESS) 2-16 -24 capsule by ity of 145 mcg 00:00: 04:59 mouth in [place] capsule 00 :00 the Medical morning Branch for 30 days. linaCLOtide 2023-0 2023- No [id number] 145ug Take 1 Univers (LINZESS) 2-16 -19 capsule by ity of 145 mcg 00:00: 04:59 mouth in [place] capsule 00 :00 the Medical [facility] Branch for 30 days. peg-electro 0 2022- No [id number] 4000mL Take 4,000 Univers lyte soln 2-16 02-17 mL by ity of (GOLYTELY) 00:00: 05:59 mouth once [place] [id number] 00 :00 now for 1 Med ical .74 -5.86 dose. Branch gram solution peg-electro 0 2022- No [id number] 4000mL Take 4,000 Univers lyte soln 2-16 02-17 mL by ity of (GOLYTELY) 00:00: 05:59 mouth once [place] [id number] 00 :00 now for 1 Med ical .74 -5.86 dose. Branch gram solution peg-electro 0 2022- No [id number] 4000mL Take 4,000 Univers lyte soln 2-16 02-17 mL by ity of (GOLYTELY) 00:00: 05:59 mouth once [place] [id number] 00 :00 now for 1 Med ical .74 -5.86 dose. Branch gram solution Insulin Yes [id number] ADMINISTER Univers Glargine 2-10 36 UNITS ity of (LANTUS 00:00: UNDER THE [facility] 00 SKIN TWICE Medic al U-100 DAILY Branch INSULIN) 100 unit/mL (3 mL) injection Insulin Yes [id number] ADMINISTER Univers Glargine 2-10 36 UNITS ity of (LANTUS 00:00: [facility] U-100 DAILY Branch INSULIN) 100 unit/mL (3 mL) injection Insulin Yes [id number] ADMINISTER Univers Glargine 2-10 36 UNITS ity of (LANTUS 00:00: [facility] Medic [facility] U-100 DAILY Branch INSULIN) 100 unit/mL (3 mL) injection Insulin Yes [id number] ADMINISTER Univers Glargine 2-10 36 UNITS ity of (LANTUS 00:00: UNDER THE [place] SOLOSTAR 00 SKIN TWICE Medic al U-100 DAILY Branch INSULIN) 100 unit/mL (3 mL) injection Insulin 0 Yes [id number] ADMINISTER Univers Glargine 2-10 36 UNITS ity of (LANTUS 00:00: UNDER THE [place] SOLOSTAR 00 SKIN TWICE Medic al U-100 DAILY Branch INSULIN) 100 unit/mL (3 mL) injection Insulin 0 Yes [id number] ADMINISTER Univers Glargine 2-10 36 UNITS ity of (LANTUS 00:00: UNDER THE [place] SOLOSTAR 00 SKIN TWICE Medic al U-100 DAILY Branch INSULIN) 100 unit/mL (3 mL) injection Insulin 0 Yes [id number] ADMINISTER Univers Glargine 2-10 36 UNITS ity of (LANTUS 00:00: UNDER THE [place] SOLOSTAR 00 SKIN TWICE Medic al U-100 DAILY Branch INSULIN) 100 unit/mL (3 mL) injection Insulin 0 Yes [id number] ADMINISTER Univers Glargine 2-10 36 UNITS ity of (LANTUS 00:00: UNDER THE [place] SOLOSTAR 00 SKIN TWICE Medic al U-100 DAILY Branch INSULIN) 100 unit/mL (3 mL) injection Insulin 0 Yes [id number] ADMINISTER Univers Glargine 2-10 36 UNITS ity of (LANTUS 00:00: UNDER THE [place] SOLOSTAR 00 SKIN TWICE Medic al U-100 DAILY Branch INSULIN) 100 unit/mL (3 mL) injection Insulin 2022-0 Yes [id number] ADMINISTER Univers Glargine 2-10 36 UNITS ity of (LANTUS 00:00: UNDER THE [place] SOLOSTAR 00 SKIN TWICE Medic al U-100 DAILY Branch INSULIN) 100 unit/mL (3 mL) injection Insulin 2022-0 Yes [id number] ADMINISTER Univers Glargine 2-10 36 UNITS ity of (LANTUS 00:00: UNDER THE [place] SOLOSTAR 00 SKIN TWICE Medic al U-100 DAILY Branch INSULIN) 100 unit/mL (3 mL) injection Insulin 2022-0 Yes [id number] ADMINISTER Univers Glargine 2-10 36 UNITS ity of (LANTUS 00:00: UNDER THE [place] SOLOSTAR 00 SKIN TWICE Medic al U-100 DAILY Branch INSULIN) 100 unit/mL (3 mL) injection Insulin 0 Yes [id number] ADMINISTER Univers Glargine 2-10 36 UNITS ity of (LANTUS 00:00: UNDER THE [place] SOLOSTAR 00 SKIN TWICE Medic al U-100 DAILY Branch INSULIN) 100 unit/mL (3 mL) injection Insulin Yes [id number] ADMINISTER Univers Glargine 2-10 36 UNITS ity of (LANTUS 00:00: UNDER THE [place] SOLOSTAR 00 SKIN TWICE Medic al U-100 DAILY Branch INSULIN) 100 unit/mL (3 mL) injection Insulin Yes [id number] ADMINISTER Univers Glargine 2-10 36 UNITS ity of (LANTUS 00:00: UNDER THE [place] SOLOSTAR 00 SKIN TWICE Medic al U-100 DAILY Branch INSULIN) 100 unit/mL (3 mL) injection Insulin Yes [id number] ADMINISTER Univers Glargine 2-10 36 UNITS ity of (LANTUS 00:00: UNDER THE [place] SOLOSTAR 00 SKIN TWICE Medic al U-100 DAILY Branch INSULIN) 100 unit/mL (3 mL) injection Insulin Yes [id number] ADMINISTER Univers Glargine 2-10 36 UNITS ity of (LANTUS 00:00: UNDER THE [place] SOLOSTAR 00 SKIN TWICE Medic al U-100 DAILY Branch INSULIN) 100 unit/mL (3 mL) injection Insulin 2022- No [id number] ADMINISTER Univers Glargine 2-10 03-27 36 UNITS ity of (LANTUS 00:00: 00:00 [facility] [place] [facility] :00 SKIN TWICE Medic al U-100 DAILY Branch INSULIN) 100 unit/mL (3 mL) injection Insulin 2022- No [id number] ADMINISTER Univers Glargine 2-10 03-27 36 UNITS ity of (LANTUS 00:00: 00:00 [facility] [place] [facility] SOLOSTAR 00 :00 SKIN TWICE Medic al U-100 DAILY Branch INSULIN) 100 unit/mL (3 mL) injection ferrous Yes [id number] 324mg Take 1 Un [place] sulfate 324 1-20 tablet by ity of mg (65 mg 00:00: mouth [place] iron) EC 00 daily with Medic al tablet breakfast. Branch ferrous Yes [id number] 324mg Take 1 Un [place] sulfate 324 1-20 tablet by ity of mg (65 mg 00:00: mouth [place] iron) EC 00 daily with Medic al tablet breakfast. Branch ferrous 3-0 Yes [id number] 324mg Take 1 Un [place] sulfate 324 1-20 tablet by ity of mg (65 mg 00:00: mouth [place] iron) EC 00 daily with Medic al tablet breakfast. Branch ferrous 3-0 Yes [id number] 324mg Take 1 Un [place] sulfate 324 1-20 tablet by ity of mg (65 mg 00:00: mouth [place] iron) EC 00 daily with Medic al tablet breakfast. Branch ferrous 3-0 Yes [id number] 324mg Take 1 Un [place] sulfate 324 1-20 tablet by ity of mg (65 mg 00:00: mouth [place] iron) EC 00 daily with Medic al tablet breakfast. Branch ferrous 3-0 Yes [id number] 324mg Take 1 Un pippa sulfate 324 1-20 tablet by ity of mg (65 mg 00:00: mouth [place] iron) EC 00 daily with Medic al tablet breakfast. Branch ferrous 3-0 Yes [id number] 324mg Take 1 Un pippa sulfate 324 1-20 tablet by ity of mg (65 mg 00:00: mouth [place] iron) EC 00 daily with Medic al tablet breakfast. Branch ferrous 3-0 Yes [id number] 324mg Take 1 Un pippa sulfate 324 1-20 tablet by ity of mg (65 mg 00:00: mouth [place] iron) EC 00 daily with Medic al tablet breakfast. Branch ferrous 3-0 Yes [id number] 324mg Take 1 Un pippa sulfate 324 1-20 tablet by ity of mg (65 mg 00:00: mouth [place] iron) EC 00 daily with Medic al tablet breakfast. Branch ferrous 3-0 Yes [id number] 324mg Take 1 Un pippa sulfate 324 1-20 tablet by ity of mg (65 mg 00:00: mouth [place] iron) EC 00 daily with Medic al tablet breakfast. Branch ferrous 3-0 Yes [id number] 324mg Take 1 Un pippa sulfate 324 1-20 tablet by ity of mg (65 mg 00:00: mouth [place] iron) EC 00 daily with Medic al tablet breakfast. Branch ferrous 3-0 Yes [id number] 324mg Take 1 Un pippa sulfate 324 1-20 tablet by ity of mg (65 mg 00:00: mouth [place] iron) EC 00 daily with Medic al tablet breakfast. Branch ferrous 3-0 Yes [id number] 324mg Take 1 Un pippa sulfate 324 1-20 tablet by ity of mg (65 mg 00:00: mouth [place] iron) EC 00 daily with Medic al tablet breakfast. Branch ferrous 3-0 Yes [id number] 324mg Take 1 Un pippa sulfate 324 1-20 tablet by ity of mg (65 mg 00:00: mouth [place] iron) EC 00 daily with Medic al tablet breakfast. Branch ferrous 3-0 Yes [id number] 324mg Take 1 Un pippa sulfate 324 1-20 tablet by ity of mg (65 mg 00:00: mouth [place] iron) EC 00 daily with Medic al tablet breakfast. Branch ferrous 3-0 Yes [id number] 324mg Take 1 Un pippa sulfate 324 1-20 tablet by ity of mg (65 mg 00:00: mouth [place] iron) EC 00 daily with Medic al tablet breakfast. Branch ferrous 3-0 Yes [id number] 324mg Take 1 Un pippa sulfate 324 1-20 tablet by ity of mg (65 mg 00:00: mouth [place] iron) EC 00 daily with Medic al tablet breakfast. Branch ferrous 3-0 Yes [id number] 324mg Take 1 Un pippa sulfate 324 1-20 tablet by ity of mg (65 mg 00:00: mouth [place] iron) EC 00 daily with Medic al tablet breakfast. Branch ferrous 3-0 Yes [id number] 324mg Take 1 Un pippa sulfate 324 1-20 tablet by ity of mg (65 mg 00:00: mouth [place] iron) EC 00 daily with Medic al tablet breakfast. Branch ferrous 3-0 Yes [id number] 324mg Take 1 Un pippa sulfate 324 1-20 tablet by ity of mg (65 mg 00:00: mouth [place] iron) EC 00 daily with Medic al tablet breakfast. Branch ferrous 3-0 Yes [id number] 324mg Take 1 Un pippa sulfate 324 1-20 tablet by ity of mg (65 mg 00:00: mouth [place] iron) EC 00 daily with Medic al tablet breakfast. Branch ferrous 3-0 Yes [id number] 324mg Take 1 Un p[place]a sulfate 324 1-20 tablet by ity of mg (65 mg 00:00: mouth [place] iron) EC 00 daily with Medic al tablet breakfast. Branch ferrous 2023-0 Yes [id number] 324mg Take 1 Un pippa sulfate 324 1-20 tablet by ity of mg (65 mg 00:00: mouth [place] iron) EC 00 daily with Medic al tablet breakfast. Branch ferrous 2022-0 Yes [id number] 324mg Take 1 Un pippa sulfate 324 1-20 tablet by ity of mg (65 mg 00:00: mouth [place] iron) EC 00 daily with Medic al tablet breakfast. Branch ferrous 3-0 Yes [id number] 324mg Take 1 Un pippa sulfate 324 1-20 tablet by ity of mg (65 mg 00:00: mouth [place] iron) EC 00 daily with Medic al tablet breakfast. Branch ferrous 2022-0 Yes [id number] 324mg Take 1 Un pippa sulfate 324 1-20 tablet by ity of mg (65 mg 00:00: mouth [place] iron) EC 00 daily with Medic al tablet breakfast. Branch ferrous 3-0 Yes [id number] 324mg Take 1 Un p[place] sulfate 324 1-20 tablet by ity of mg (65 mg 00:00: mouth [place] iron) EC 00 daily with Medic al tablet breakfast. Branch ferrous 2022-0 Yes [id number] 324mg Take 1 Un p[place]a sulfate 324 1-20 tablet by ity of mg (65 mg 00:00: mouth [place] iron) EC 00 daily with Medic al tablet breakfast. Branch ferrous 2022-0 Yes [id number] 324mg Take 1 Un pippa sulfate 324 1-20 tablet by ity of mg (65 mg 00:00: mouth [place] iron) EC 00 daily with Medic al tablet breakfast. Branch ferrous 3-0 Yes [id number] 324mg Take 1 Un pipp[place] sulfate 324 1-20 tablet by ity of mg (65 mg 00:00: mouth [place] iron) EC 00 daily with Medic al tablet breakfast. Branch ferrous 3-0 Yes [id number] 324mg Take 1 Un pippa sulfate 324 1-20 tablet by ity of mg (65 mg 00:00: mouth [place] iron) EC 00 daily with Medic al tablet breakfast. Branch ferrous 3-0 Yes [id number] 324mg Take 1 Un pippa sulfate 324 1-20 tablet by ity of mg (65 mg 00:00: mouth [place] iron) EC 00 daily with Medic al tablet breakfast. Branch ferrous 3-0 Yes [id number] 324mg Take 1 Un pippa sulfate 324 1-20 tablet by ity of mg (65 mg 00:00: mouth [place] iron) EC 00 daily with Medic al tablet breakfast. Branch ferrous 3-0 Yes [id number] 324mg Take 1 Un pippa sulfate 324 1-20 tablet by ity of mg (65 mg 00:00: mouth [place] iron) EC 00 daily with Medic al tablet breakfast. Branch ferrous 3-0 Yes [id number] 324mg Take 1 Un pippa sulfate 324 1-20 tablet by ity of mg (65 mg 00:00: mouth [place] iron) EC 00 daily with Medic al tablet breakfast. Branch ferrous 3-0 Yes [id number] 324mg Take 1 Un pippa sulfate 324 1-20 tablet by ity of mg (65 mg 00:00: mouth [place] iron) EC 00 daily with Medic al tablet breakfast. Branch ferrous 3-0 Yes [id number] 324mg Take 1 Un pippa sulfate 324 1-20 tablet by ity of mg (65 mg 00:00: mouth [place] iron) EC 00 daily with Medic al tablet breakfast. Branch ferrous 3-0 Yes [id number] 324mg Take 1 Un pippa sulfate 324 1-20 tablet by ity of mg (65 mg 00:00: mouth [place] iron) EC 00 daily with Medic al tablet breakfast. Branch ferrous 3-0 Yes [id number] 324mg Take 1 Un pippa sulfate 324 1-20 tablet by ity of mg (65 mg 00:00: mouth [place] iron) EC 00 daily with Medic al tablet breakfast. Branch ferrous 3-0 Yes [id number] 324mg Take 1 Un pippa sulfate 324 1-20 tablet by ity of mg (65 mg 00:00: mouth [place] iron) EC 00 daily with Medic al tablet breakfast. Branch ferrous 3-0 Yes [id number] 324mg Take 1 Un pippa sulfate 324 1-20 tablet by ity of mg (65 mg 00:00: mouth [place] iron) EC 00 daily with Medic al tablet breakfast. Branch ferrous 3-0 Yes [id number] 324mg Take 1 Un pippa sulfate 324 1-20 tablet by ity of mg (65 mg 00:00: mouth [place] iron) EC 00 daily with Medic al tablet breakfast. Branch ferrous 3-0 Yes [id number] 324mg Take 1 Un pippa sulfate 324 1-20 tablet by ity of mg (65 mg 00:00: mouth [place] iron) EC 00 daily with Medic al tablet breakfast. Branch ferrous 2022-2022- No [id number] 324mg Take 1 U nivers sulfate 324 -20 -22 tablet by it y of mg (65 mg 00:00: 00:00 mouth [place] iron) EC 00 :00 daily with Medic al tablet breakfast. Branch ferrous 2022- No [id number] 324mg Take 1 U nivers sulfate 324 -20 -22 tablet by it y of mg (65 mg 00:00: 00:00 mouth [place] iron) EC 00 :00 daily with Medic al tablet breakfast. Branch Insulin Yes [id number] ADMINISTER [facility] Glargine 1-19 56 UNITS ity of (LANT[place] 00:00: UNDER THE [place] SOLOSTAR 00 SKIN TWICE Medic al U-100 DAILY Branch INSULIN) 100 unit/mL (3 mL) injection metoprolol Yes [id number] TAKE 1/2 [facility] tartrate 25 1-19 TABLET BY ity of mg tablet 00:00: MOUTH [place] 00 TWICE Medical DAILY Branch gabapentin Yes [id number] 300mg Take 1 [facility] 300 mg 1-19 capsule by ity of capsule 00:00: mouth in [place] 00 the Medical morning Branch and 1 capsule at noon and 1 capsule in the evening. busPIRone Yes [id number] TAKE 1/2 [facility] 15 mg 1-19 TO 1 ity of tablet 00:00: TABLET BY [place] 00 MOUTH Medical TWICE Branch DAILY NEEDED FOR ANXIETY carBAMazepi 0 Yes [id number] 200mg Take 2 [facility] ne 100 mg 1-19 tablets by ity of 12 hr 00:00: mouth at [place] tablet 00 bedtime. Medical Branch DULoxetine 0 Yes [id number] 60mg Take 1 [facility] 60 mg 1-19 capsule by ity of capsule 00:00: mouth [place] 00 every Medical morning. Branch furosemide 0 Yes [id number] TAKE 1 [facility] 40 mg 1-19 TABLET BY ity of tablet 00:00: MOUTH [place] 00 EVERY Medical MORNING Branch AND EVERY EVENING levothyroxi 2022-0 Yes [id number] 175ug Take 1 [facility] ne 175 mcg 1-19 tablet by ity of tablet 00:00: mouth [place] 00 every Medical morning. Branch KCL 10 mEq 0 Yes [id number] 20meq Take 2 [facility] tablet 1-19 tablets by ity of 00:00: mouth in [place] 00 the Medical morning Branch and 2 tablets in the evening. Only take when taking lasix omeprazole 0 Yes [id number] 40mg Take 1 [facility] 40 mg 1-19 capsule by ity of capsule 00:00: mouth in [place] [address] the Medical morning. Branch ondansetron 0 Yes [id number] TAKE 1 [facility] 4 mg tablet 1-19 TABLET BY ity of 00:00: MOUTH [place] 00 EVERY 8 Medical HOURS Branch NEEDED FOR NAUSEA OR VOMITING QUEtiapine 0 Yes [id number] 400mg Take 1 [facility] 400 mg 1-19 tablet by ity of tablet 00:00: mouth at [place] [address] bedtime. Medical ADDITIONAL Branch REFILLS PER PSYCHIATRY rosuvastati Yes [id number] 20mg Take 1 [facility] n 20 mg 1-19 tablet by ity of tablet 00:00: mouth at [place] [address] bedtime. Medical Branch Insulin Yes [id number] ADMINISTER [facility] Glargine 1-19 56 UNITS ity of ([place] 00:00: UNDER THE [place] SOLOST[facility] 00 SKIN TWICE Medic al U-100 DAILY Branch INSULIN) 100 unit/mL (3 mL) injection metoprolol Yes [id number] TAKE 1/2 [facility] tartrate 25 1-19 TABLET BY ity of mg tablet 00:00: MOUTH [place] [address] TWICE Medical DAILY Branch gabapentin 2022-0 Yes [id number] 300mg Take 1 [facility] 300 mg 1-19 capsule by ity of capsule 00:00: mouth in [place] 00 the Medical morning Branch and 1 capsule at noon and 1 capsule in the evening. busPIRone 0 Yes [id number] TAKE 1/2 [facility] 15 mg 1-19 TO 1 ity of tablet 00:00: TABLET BY [place] 00 MOUTH Medical TWICE Branch DAILY NEEDED FOR ANXIETY carBAMazepi 0 Yes [id number] 200mg Take 2 [facility] ne 100 mg 1-19 tablets by ity of 12 hr 00:00: mouth at [facility] 00 bedtime. Medical Branch DULoxetine 0 Yes [id number] 60mg Take 1 [facility] 60 mg 1-19 capsule by ity of capsule 00:00: mouth [place] [address] every Medical morning. Branch furosemide 0 Yes [id number] TAKE 1 [facility] 40 mg 1-19 TABLET BY ity of tablet 00:00: MOUTH [place] 00 EVERY Medical MORNING Branch AND EVERY EVENING levothyroxi 2022-0 Yes [id number] 175ug Take 1 [facility] ne 175 mcg 1-19 tablet by ity of tablet 00:00: mouth [place] [address] every Medical morning. Branch KCL 10 mEq 0 Yes [id number] 20meq Take 2 [facility] tablet 1-19 tablets by ity of 00:00: mouth in [place] 00 the Medical morning Branch and 2 tablets in the evening. Only take when taking lasix omeprazole 0 Yes [id number] 40mg Take 1 [facility] 40 mg 1-19 capsule by ity of capsule 00:00: mouth in [place] [address] the Medical morning. Branch ondansetron 0 Yes [id number] TAKE 1 [facility] 4 mg tablet 1-19 TABLET BY ity of 00:00: MOUTH [place] [address] EVERY 8 Medical HOURS Branch NEEDED FOR NAUSEA OR VOMITING QUEtiapine 0 Yes [id number] 400mg Take 1 [facility] 400 mg 1-19 tablet by ity of tablet 00:00: mouth at [place] [address] bedtime. Medical ADDITIONAL Branch REFILLS PER PSYCHIATRY rosuvastati 0 Yes [id number] 20mg Take 1 [facility] n 20 mg 1-19 tablet by ity of tablet 00:00: mouth at [place] [address] bedtime. Medical Branch Insulin Yes [id number] ADMINISTER [facility] Glargine 1-19 56 UNITS ity of ([place] 00:00: UNDER THE [place] SOLOST[facility] 00 SKIN TWICE Medic al U-100 DAILY Branch INSULIN) 100 unit/mL (3 mL) injection metoprolol 0 Yes [id number] TAKE 1/2 [facility] tartrate 25 1-19 TABLET BY ity of mg tablet 00:00: MOUTH [place] [address] TWICE Medical DAILY Branch gabapentin 2022-0 Yes [id number] 300mg Take 1 [facility] 300 mg 1-19 capsule by ity of capsule 00:00: mouth in [place] [address] the Medical morning Branch and 1 capsule at noon and 1 capsule in the evening. busPIRone 0 Yes [id number] TAKE 1/2 [facility] 15 mg 1-19 TO 1 ity of tablet 00:00: TABLET BY [place] [address] MOUTH Medical TWICE Branch DAILY NEEDED FOR ANXIETY carBAMazepi Yes [id number] 200mg Take 2 [facility] ne 100 mg 1-19 tablets by ity of 12 hr 00:00: mouth at [facility] 00 bedtime. Medical Branch DULoxetine Yes [id number] 60mg Take 1 [facility] 60 mg 1-19 capsule by ity of capsule 00:00: mouth [place] 00 every Medical morning. Branch furosemide 0 Yes [id number] TAKE 1 [facility] 40 mg 1-19 TABLET BY ity of tablet 00:00: MOUTH [place] 00 EVERY Medical MORNING Branch AND EVERY EVENING levothyroxi 0 Yes [id number] 175ug Take 1 [facility] ne 175 mcg 1-19 tablet by ity of tablet 00:00: mouth [place] 00 every Medical morning. Branch KCL 10 mEq Yes [id number] 20meq Take 2 [facility] tablet 1-19 tablets by ity of 00:00: mouth in [place] 00 the Medical morning Branch and 2 tablets in the evening. Only take when taking lasix omeprazole Yes [id number] 40mg Take 1 [facility] 40 mg 1-19 capsule by ity of capsule 00:00: mouth in [place] 00 the Medical morning. Branch ondansetron Yes [id number] TAKE 1 [facility] 4 mg tablet 1-19 TABLET BY ity of 00:00: MOUTH [place] [address] EVERY 8 Medical HOURS Branch NEEDED FOR NAUSEA OR VOMITING QUEtiapine Yes [id number] 400mg Take 1 [facility] 400 mg 1-19 tablet by ity of tablet 00:00: mouth at [place] [address] bedtime. Medical ADDITIONAL Branch REFILLS PER PSYCHIATRY rosuvastati Yes [id number] 20mg Take 1 [facility] n 20 mg 1-19 tablet by ity of tablet 00:00: mouth at [place] [address] bedtime. Medical Branch Insulin Yes [id number] ADMINISTER [facility] Glargine 1-19 56 UNITS ity of ([place] 00:00: UNDER THE [place] SOLOST[facility] 00 SKIN TWICE Medic al U-100 DAILY Branch INSULIN) 100 unit/mL (3 mL) injection metoprolol 0 Yes [id number] TAKE 1/2 [facility] tartrate 25 1-19 TABLET BY ity of mg tablet 00:00: MOUTH [place] [address] TWICE Medical DAILY Branch gabapentin 0 Yes [id number] 300mg Take 1 [facility] 300 mg 1-19 capsule by ity of capsule 00:00: mouth in [place] 00 the Medical morning Branch and 1 capsule at noon and 1 capsule in the evening. busPIRone Yes [id number] TAKE 1/2 [facility] 15 mg 1-19 TO 1 ity of tablet 00:00: TABLET BY [place] 00 MOUTH Medical TWICE Branch DAILY NEEDED FOR ANXIETY carBAMazepi 0 Yes [id number] 200mg Take 2 [facility] ne 100 mg 1-19 tablets by ity of 12 hr 00:00: mouth at [facility] 00 bedtime. Medical Branch DULoxetine 0 Yes [id number] 60mg Take 1 [facility] 60 mg 1-19 capsule by ity of capsule 00:00: mouth [place] [address] every Medical morning. Branch furosemide Yes [id number] TAKE 1 [facility] 40 mg 1-19 TABLET BY ity of tablet 00:00: MOUTH [place] 00 EVERY Medical MORNING Branch AND EVERY EVENING levothyroxi 2022-0 Yes [id number] 175ug Take 1 [facility] ne 175 mcg 1-19 tablet by ity of tablet 00:00: mouth [place] [address] every Medical morning. Branch KCL 10 mEq Yes [id number] 20meq Take 2 [facility] tablet 1-19 tablets by ity of 00:00: mouth in [place] 00 the Medical morning Branch and 2 tablets in the evening. Only take when taking lasix omeprazole Yes [id number] 40mg Take 1 [facility] 40 mg 1-19 capsule by ity of capsule 00:00: mouth in [place] [address] the Medical morning. Branch ondansetron Yes [id number] TAKE 1 [facility] 4 mg tablet 1-19 TABLET BY ity of 00:00: MOUTH [place] 00 EVERY 8 Medical HOURS Branch NEEDED FOR NAUSEA OR VOMITING QUEtiapine 0 Yes [id number] 400mg Take 1 [facility] 400 mg 1-19 tablet by ity of tablet 00:00: mouth at [place] [address] bedtime. Medical ADDITIONAL Branch REFILLS PER PSYCHIATRY rosuvastati Yes [id number] 20mg Take 1 [facility] n 20 mg 1-19 tablet by ity of tablet 00:00: mouth at [place] [address] bedtime. Medical Branch Insulin Yes [id number] ADMINISTER [facility] Glargine 1-19 56 UNITS ity of ([place] 00:00: UNDER THE [place] SOLOST[facility] 00 SKIN TWICE Medic al U-100 DAILY Branch INSULIN) 100 unit/mL (3 mL) injection metoprolol 2022-0 Yes [id number] TAKE 1/2 [facility] tartrate 25 1-19 TABLET BY ity of mg tablet 00:00: MOUTH [place] 00 TWICE Medical DAILY Branch gabapentin 2022-0 Yes [id number] 300mg Take 1 [facility] 300 mg 1-19 capsule by ity of capsule 00:00: mouth in [place] 00 the Medical morning Branch and 1 capsule at noon and 1 capsule in the evening. busPIRone 2022-0 Yes [id number] TAKE 1/2 [facility] 15 mg 1-19 TO 1 ity of tablet 00:00: TABLET BY [place] [address] MOUTH Medical TWICE Branch DAILY NEEDED FOR ANXIETY carBAMazepi 2022-0 Yes [id number] 200mg Take 2 [facility] ne 100 mg 1-19 tablets by ity of 12 hr 00:00: mouth at [place] [address] bedtime. Medical Branch DULoxetine 2022-0 Yes [id number] 60mg Take 1 [facility] 60 mg 1-19 capsule by ity of capsule 00:00: mouth [place] [address] every Medical morning. Branch furosemide 2022-0 Yes [id number] TAKE 1 [facility] 40 mg 1-19 TABLET BY ity of tablet 00:00: MOUTH [place] 00 EVERY Medical MORNING Branch AND EVERY EVENING levothyroxi 2022-0 Yes [id number] 175ug Take 1 [facility] ne 175 mcg 1-19 tablet by ity of tablet 00:00: mouth [place] 00 every Medical morning. Branch KCL 10 mEq 2022-0 Yes [id number] 20meq Take 2 [facility] tablet 1-19 tablets by ity of 00:00: mouth in [place] 00 the Medical morning Branch and 2 tablets in the evening. Only take when taking lasix omeprazole 2022-0 Yes [id number] 40mg Take 1 [facility] 40 mg 1-19 capsule by ity of capsule 00:00: mouth in [place] [address] the Medical morning. Branch ondansetron 2022-0 Yes [id number] TAKE 1 [facility] 4 mg tablet 1-19 TABLET BY ity of 00:00: MOUTH [place] [address] EVERY 8 Medical HOURS Branch NEEDED FOR NAUSEA OR VOMITING QUEtiapine 2022-0 Yes [id number] 400mg Take 1 [facility] 400 mg 1-19 tablet by ity of tablet 00:00: mouth at [place] [address] bedtime. Medical ADDITIONAL Branch REFILLS PER PSYCHIATRY rosuvastati Yes [id number] 20mg Take 1 [facility] n 20 mg 1-19 tablet by ity of tablet 00:00: mouth at [place] [address] bedtime. Medical Branch Insulin Yes [id number] ADMINISTER [facility] Glargine 1-19 56 UNITS ity of ([place] 00:00: UNDER THE [place] SOLOST[facility] 00 SKIN TWICE Medic al U-100 DAILY Branch INSULIN) 100 unit/mL (3 mL) injection metoprolol Yes [id number] TAKE 1/2 [facility] tartrate 25 1-19 TABLET BY ity of mg tablet 00:00: MOUTH [place] 00 TWICE Medical DAILY Branch gabapentin Yes [id number] 300mg Take 1 [facility] 300 mg 1-19 capsule by ity of capsule 00:00: mouth in [place] 00 the Medical morning Branch and 1 capsule at noon and 1 capsule in the evening. busPIRone Yes [id number] TAKE 1/2 [facility] 15 mg 1-19 TO 1 ity of tablet 00:00: TABLET BY [place] 00 MOUTH Medical TWICE Branch DAILY NEEDED FOR ANXIETY carBAMazepi Yes [id number] 200mg Take 2 [facility] ne 100 mg 1-19 tablets by ity of 12 hr 00:00: mouth at [facility] 00 bedtime. Medical Branch DULoxetine Yes [id number] 60mg Take 1 [facility] 60 mg 1-19 capsule by ity of capsule 00:00: mouth [place] 00 every Medical morning. Branch furosemide 0 Yes [id number] TAKE 1 [facility] 40 mg 1-19 TABLET BY ity of tablet 00:00: MOUTH [place] 00 EVERY Medical MORNING Branch AND EVERY EVENING levothyroxi 2022-0 Yes [id number] 175ug Take 1 [facility] ne 175 mcg 1-19 tablet by ity of tablet 00:00: mouth [place] 00 every Medical morning. Branch KCL 10 mEq 0 Yes [id number] 20meq Take 2 [facility] tablet 1-19 tablets by ity of 00:00: mouth in [place] 00 the Medical morning Branch and 2 tablets in the evening. Only take when taking lasix omeprazole 0 Yes [id number] 40mg Take 1 [facility] 40 mg 1-19 capsule by ity of capsule 00:00: mouth in [place] 00 the Medical morning. Branch ondansetron Yes [id number] TAKE 1 [facility] 4 mg tablet 1-19 TABLET BY ity of 00:00: MOUTH [place] 00 EVERY 8 Medical HOURS Branch NEEDED FOR NAUSEA OR VOMITING QUEtiapine 0 Yes [id number] 400mg Take 1 [facility] 400 mg 1-19 tablet by ity of tablet 00:00: mouth at [place] [address] bedtime. Medical ADDITIONAL Branch REFILLS PER PSYCHIATRY rosuvastati 0 Yes [id number] 20mg Take 1 [facility] n 20 mg 1-19 tablet by ity of tablet 00:00: mouth at [place] [address] bedtime. Medical Branch Insulin 0 Yes [id number] ADMINISTER [facility] Glargine 1-19 56 UNITS ity of ([place] 00:00: UNDER THE [place] SOLOSTAR 00 SKIN TWICE Medic al U-100 DAILY Branch INSULIN) 100 unit/mL (3 mL) injection metoprolol Yes [id number] TAKE 1/2 [facility] tartrate 25 1-19 TABLET BY ity of mg tablet 00:00: MOUTH [place] [address] TWICE Medical DAILY Branch gabapentin 0 Yes [id number] 300mg Take 1 [facility] 300 mg 1-19 capsule by ity of capsule 00:00: mouth in [place] 00 the Medical morning Branch and 1 capsule at noon and 1 capsule in the evening. busPIRone Yes [id number] TAKE 1/2 [facility] 15 mg 1-19 TO 1 ity of tablet 00:00: TABLET BY [place] [address] MOUTH Medical TWICE Branch DAILY NEEDED FOR ANXIETY carBAMazepi 0 Yes [id number] 200mg Take 2 [facility] ne 100 mg 1-19 tablets by ity of 12 hr 00:00: mouth at [place] [address] bedtime. Medical Branch DULoxetine 0 Yes [id number] 60mg Take 1 [facility] 60 mg 1-19 capsule by ity of capsule 00:00: mouth [place] [address] every Medical morning. Branch furosemide 2022-0 Yes [id number] TAKE 1 [facility] 40 mg 1-19 TABLET BY ity of tablet 00:00: MOUTH [place] 00 EVERY Medical MORNING Branch AND EVERY EVENING levothyroxi 2022-0 Yes [id number] 175ug Take 1 [facility] ne 175 mcg 1-19 tablet by ity of tablet 00:00: mouth [place] [address] every Medical morning. Branch KCL 10 mEq 2022-0 Yes [id number] 20meq Take 2 [facility] tablet 1-19 tablets by ity of 00:00: mouth in [place] 00 the Medical morning Branch and 2 tablets in the evening. Only take when taking lasix omeprazole 0 Yes [id number] 40mg Take 1 [facility] 40 mg 1-19 capsule by ity of capsule 00:00: mouth in [place] 00 the Medical morning. Branch ondansetron 0 Yes [id number] TAKE 1 [facility] 4 mg tablet 1-19 TABLET BY ity of 00:00: MOUTH [place] 00 EVERY 8 Medical HOURS Branch NEEDED FOR NAUSEA OR VOMITING QUEtiapine 2022-0 Yes [id number] 400mg Take 1 [facility] 400 mg 1-19 tablet by ity of tablet 00:00: mouth at [place] [address] bedtime. Medical ADDITIONAL Branch REFILLS PER PSYCHIATRY rosuvastati Yes [id number] 20mg Take 1 [facility] n 20 mg 1-19 tablet by ity of tablet 00:00: mouth at [place] [address] bedtime. Medical Branch Insulin Yes [id number] ADMINISTER [facility] Glargine 1-19 56 UNITS ity of ([place] 00:00: UNDER THE [place] SOLOSTAR 00 SKIN TWICE Medic al U-100 DAILY Branch INSULIN) 100 unit/mL (3 mL) injection metoprolol Yes [id number] TAKE 1/2 [facility] tartrate 25 1-19 TABLET BY ity of mg tablet 00:00: MOUTH [place] 00 TWICE Medical DAILY Branch gabapentin 2022-0 Yes [id number] 300mg Take 1 [facility] 300 mg 1-19 capsule by ity of capsule 00:00: mouth in [place] 00 the Medical morning Branch and 1 capsule at noon and 1 capsule in the evening. busPIRone 0 Yes [id number] TAKE 1/2 [facility] 15 mg 1-19 TO 1 ity of tablet 00:00: TABLET BY [place] 00 MOUTH Medical TWICE Branch DAILY NEEDED FOR ANXIETY carBAMazepi 0 Yes [id number] 200mg Take 2 [facility] ne 100 mg 1-19 tablets by ity of 12 hr 00:00: mouth at [facility] 00 bedtime. Medical Branch DULoxetine 0 Yes [id number] 60mg Take 1 [facility] 60 mg 1-19 capsule by ity of capsule 00:00: mouth [place] [address] every Medical morning. Branch furosemide 2022-0 Yes [id number] TAKE 1 [facility] 40 mg 1-19 TABLET BY ity of tablet 00:00: MOUTH [place] 00 EVERY Medical MORNING Branch AND EVERY EVENING levothyroxi 2022-0 Yes [id number] 175ug Take 1 [facility] ne 175 mcg 1-19 tablet by ity of tablet 00:00: mouth [place] [address] every Medical morning. Branch KCL 10 mEq 2022-0 Yes [id number] 20meq Take 2 [facility] tablet 1-19 tablets by ity of 00:00: mouth in [place] 00 the Medical morning Branch and 2 tablets in the evening. Only take when taking lasix omeprazole 2022-0 Yes [id number] 40mg Take 1 [facility] 40 mg 1-19 capsule by ity of capsule 00:00: mouth in [place] [address] the Medical morning. Branch ondansetron 0 Yes [id number] TAKE 1 [facility] 4 mg tablet 1-19 TABLET BY ity of 00:00: MOUTH [place] [address] EVERY 8 Medical HOURS Branch NEEDED FOR NAUSEA OR VOMITING QUEtiapine 2022-0 Yes [id number] 400mg Take 1 [facility] 400 mg 1-19 tablet by ity of tablet 00:00: mouth at [place] [address] bedtime. Medical ADDITIONAL Branch REFILLS PER PSYCHIATRY rosuvastati 2022-0 Yes [id number] 20mg Take 1 [facility] n 20 mg 1-19 tablet by ity of tablet 00:00: mouth at [place] [address] bedtime. Medical Branch metoprolol 2022-0 Yes [id number] TAKE 1/2 [facility] tartrate 25 1-19 TABLET BY ity of mg tablet 00:00: MOUTH [place] [address] TWICE Medical DAILY Branch gabapentin 2022-0 Yes [id number] 300mg Take 1 [facility] 300 mg 1-19 capsule by ity of capsule 00:00: mouth in [place] 00 the Medical morning Branch and 1 capsule at noon and 1 capsule in the evening. busPIRone 2022-0 Yes [id number] TAKE 1/2 [facility] 15 mg 1-19 TO 1 ity of tablet 00:00: TABLET BY [place] [address] MOUTH Medical TWICE Branch DAILY NEEDED FOR ANXIETY carBAMazepi 2022-0 Yes [id number] 200mg Take 2 [facility] ne 100 mg 1-19 tablets by ity of 12 hr 00:00: mouth [facility] [facility] bed[facility]. [facility] DULoxetine 2022-0 Yes [id number] 60mg Take 1 [facility] 60 mg 1-19 capsule by [facility] capsule 00:00: mouth [place] 00 every Medical morning. Branch furosemide 2022-0 Yes [id number] TAKE 1 [facility] 40 mg 1-19 TABLET BY [facility] tablet 00:00: MOUTH [place] 00 EVERY Medical MORNING Branch AND EVERY EVENING levothyroxi 2022-0 Yes [id number] 175ug Take 1 [facility] ne 175 mcg 1-19 tablet by [facility] of tablet 00:00: mouth [place] [address] every Medical morning. Branch KCL 10 mEq 2022-0 Yes [id number] 20meq Take 2 [facility] tablet 1-19 tablets by [facility] of 00:00: mouth in [place] 00 the Medical morning Branch and 2 tablets in the evening. Only take when taking lasix omeprazole 2022-0 Yes [id number] 40mg Take 1 [facility] 40 mg 1-19 capsule by [facility] capsule 00:00: mouth in [place] [address] the Medical morning. Branch ondansetron 0 Yes [id number] TAKE 1 [facility] 4 mg tablet 1-19 TABLET BY [facility] of 00:00: MOUTH [place] [address] EVERY 8 Medical HOURS Branch NEEDED FOR NAUSEA OR VOMITING QUEtiapine 2022-0 Yes [id number] 400mg Take 1 [facility] 400 mg 1-19 tablet by [facility] tablet 00:00: mouth at [place] [address] bedtime. Medical ADDITIONAL Branch REFILLS PER PSYCHIATRY rosuvastati 2022-0 Yes [id number] 20mg Take 1 [facility] n 20 mg 1-19 tablet by [facility] tablet 00:00: mouth at [place] [address] bedtime. Medical Branch metoprolol 2022-0 Yes [id number] TAKE 1/2 [facility] tartrate 25 1-19 TABLET BY [facility] of mg tablet 00:00: MOUTH [place] [address] TWICE Medical DAILY Branch gabapentin 2022-0 Yes [id number] 300mg Take 1 [facility] 300 mg 1-19 capsule by [facility] capsule 00:00: mouth in [place] [address] the Medical morning Branch and 1 capsule at noon and 1 capsule in the evening. busPIRone 2022-0 Yes [id number] TAKE 1/2 [facility] 15 mg 1-19 TO 1 [facility] tablet 00:00: TABLET BY [place] 00 MOUTH Medical TWICE Branch DAILY NEEDED FOR ANXIETY carBAMazepi 2022-0 Yes [id number] 200mg Take 2 [facility] ne 100 mg 1-19 tablets by [facility] of 12 hr 00:00: mouth at [facility] 00 bedtime. Medical Branch DULoxetine 2022-0 Yes [id number] 60mg Take 1 [facility] 60 mg 1-19 capsule by [facility] of capsule 00:00: mouth [place] 00 every Medical morning. Branch furosemide 2022-0 Yes [id number] TAKE 1 [facility] 40 mg 1-19 TABLET BY [facility] of tablet 00:00: MOUTH [place] 00 EVERY Medical MORNING Branch AND EVERY EVENING levothyroxi 2022-0 Yes [id number] 175ug Take 1 [facility] ne 175 mcg 1-19 tablet by [facility] of tablet 00:00: mouth [place] 00 every Medical morning. Branch KCL 10 mEq 2022-0 Yes [id number] 20meq Take 2 [facility] tablet 1-19 tablets by [facility] of 00:00: mouth in [place] 00 the Medical morning Branch and 2 tablets in the evening. Only take when taking lasix omeprazole 2022-0 Yes [id number] 40mg Take 1 [facility] 40 mg 1-19 capsule by [facility] capsule 00:00: mouth in [place] [address] the Medical morning. Branch ondansetron 2022-0 Yes [id number] TAKE 1 [facility] 4 mg tablet 1-19 TABLET BY [facility] of 00:00: MOUTH [place] 00 EVERY 8 Medical HOURS Branch NEEDED FOR NAUSEA OR VOMITING QUEtiapine 2022-0 Yes [id number] 400mg Take 1 [facility] 400 mg 1-19 tablet by [facility] tablet 00:00: mouth at [place] [address] bedtime. Medical ADDITIONAL Branch REFILLS PER PSYCHIATRY rosuvastati 2022-0 Yes [id number] 20mg Take 1 [facility] n 20 mg 1-19 tablet by [facility] of tablet 00:00: mouth at [place] [address] bedtime. Medical Branch metoprolol 2022-0 Yes [id number] TAKE 1/2 [facility] tartrate 25 1-19 TABLET BY [facility] of mg tablet 00:00: MOUTH [place] 00 TWICE Medical DAILY Branch gabapentin 2022-0 Yes [id number] 300mg Take 1 [facility] 300 mg 1-19 capsule by [facility] of capsule 00:00: mouth in [place] 00 the Medical morning Branch and 1 capsule at noon and 1 capsule in the evening. busPIRone 2022-0 Yes [id number] TAKE 1/2 [facility] 15 mg 1-19 TO 1 [facility] of tablet 00:00: TABLET BY [place] 00 MOUTH Medical TWICE Branch DAILY NEEDED FOR ANXIETY carBAMazepi 2022-0 Yes [id number] 200mg Take 2 [facility] ne 100 mg 1-19 tablets by [facility] of 12 hr 00:00: mouth at [place] tablet 00 bedtime. Medical Branch DULoxetine 2022-0 Yes [id number] 60mg Take 1 [facility] 60 mg 1-19 capsule by [facility] of capsule 00:00: mouth [place] 00 every Medical morning. Branch furosemide 2022-0 Yes [id number] TAKE 1 [facility] 40 mg 1-19 TABLET BY [facility] of tablet 00:00: MOUTH [place] 00 EVERY Medical MORNING Branch AND EVERY EVENING levothyroxi 2022-0 Yes [id number] 175ug Take 1 [facility] ne 175 mcg 1-19 tablet by [facility] of tablet 00:00: mouth [place] 00 every Medical morning. Branch KCL 10 mEq 2022-0 Yes [id number] 20meq Take 2 [facility] tablet 1-19 tablets by [facility] of 00:00: mouth in [place] 00 the Medical morning Branch and 2 tablets in the evening. Only take when taking lasix omeprazole 2022-0 Yes [id number] 40mg Take 1 [facility] 40 mg 1-19 capsule by [facility] of capsule 00:00: mouth in [place] [address] the Medical morning. Branch ondansetron 2022-0 Yes [id number] TAKE 1 [facility] 4 mg tablet 1-19 TABLET BY [facility] of 00:00: MOUTH [place] 00 EVERY 8 Medical HOURS Branch NEEDED FOR NAUSEA OR VOMITING QUEtiapine 2022-0 Yes [id number] 400mg Take 1 [facility] 400 mg 1-19 tablet by [facility] of tablet 00:00: mouth at [place] [address] bedtime. Medical ADDITIONAL Branch REFILLS PER PSYCHIATRY rosuvastati 2022-0 Yes [id number] 20mg Take 1 [facility] n 20 mg 1-19 tablet by [facility] of tablet 00:00: mouth at [place] [address] bedtime. Medical Branch metoprolol 2022-0 Yes [id number] TAKE 1/2 [facility] tartrate 25 1-19 TABLET BY [facility] of mg tablet 00:00: MOUTH [place] 00 TWICE Medical DAILY Branch gabapentin 2022-0 Yes [id number] 300mg Take 1 [facility] 300 mg 1-19 capsule by [facility] of capsule 00:00: mouth in [place] 00 the Medical morning Branch and 1 capsule at noon and 1 capsule in the evening. busPIRone 2022-0 Yes [id number] TAKE 1/2 [facility] 15 mg 1-19 TO 1 [facility] of tablet 00:00: TABLET BY [place] [address] MOUTH Medical TWICE Branch DAILY NEEDED FOR ANXIETY carBAMazepi 2022-0 Yes [id number] 200mg Take 2 [facility] ne 100 mg 1-19 tablets by it[facility] of 12 hr 00:00: mouth at [facility] 00 bedtime. Medical Branch DULoxetine 2022-0 Yes [id number] 60mg Take 1 [facility] 60 mg 1-19 capsule by [facility] of capsule 00:00: mouth [place] 00 every Medical morning. Branch furosemide 2022-0 Yes [id number] TAKE 1 [facility] 40 mg 1-19 TABLET BY [facility] of tablet 00:00: MOUTH [place] 00 EVERY Medical MORNING Branch AND EVERY EVENING levothyroxi 2022-0 Yes [id number] 175ug Take 1 [facility] ne 175 mcg 1-19 tablet by it[facility] of tablet 00:00: mouth [place] 00 every Medical morning. Branch KCL 10 mEq 2022- Yes [id number] 20meq Take 2 [facility] tablet 1-19 tablets by [facility] of 00:00: mouth in [place] 00 the Medical morning Branch and 2 tablets in the evening. Only take when taking lasix omeprazole 2022-0 Yes [id number] 40mg Take 1 [facility] 40 mg 1-19 capsule by [facility] of capsule 00:00: mouth in [place] 00 the Medical morning. Branch ondansetron Yes [id number] TAKE 1 [facility] 4 mg tablet 1-19 TABLET BY it[facility] of 00:00: MOUTH [place] 00 EVERY 8 Medical HOURS Branch NEEDED FOR NAUSEA OR VOMITING QUEtiapine 2022-0 Yes [id number] 400mg Take 1 [facility] 400 mg 1-19 tablet by [facility] of tablet 00:00: mouth at [place] [address] bedtime. Medical ADDITIONAL Branch REFILLS PER PSYCHIATRY rosuvastati 2022-0 Yes [id number] 20mg Take 1 [facility] n 20 mg 1-19 tablet by [facility] of tablet 00:00: mouth at [place] [address] bedtime. Medical Branch metoprolol 2022-0 Yes [id number] TAKE 1/2 [facility] tartrate 25 1-19 TABLET BY it[facility] of mg tablet 00:00: MOUTH [place] 00 TWICE Medical DAILY Branch gabapentin 2022-0 Yes [id number] 300mg Take 1 [facility] 300 mg 1-19 capsule by [facility] of capsule 00:00: mouth in [place] 00 the Medical morning Branch and 1 capsule at noon and 1 capsule in the evening. busPIRone 2022-0 Yes [id number] TAKE 1/2 [facility] 15 mg 1-19 TO 1 [facility] of tablet 00:00: TABLET BY [place] 00 MOUTH Medical TWICE Branch DAILY NEEDED FOR ANXIETY carBAMazepi 2022-0 Yes [id number] 200mg Take 2 [facility] ne 100 mg 1-19 tablets by [facility] of 12 hr 00:00: mouth at [facility] 00 bedtime. Medical Branch DULoxetine 2022-0 Yes [id number] 60mg Take 1 [facility] 60 mg 1-19 capsule by [facility] of capsule 00:00: mouth [place] [address] every Medical morning. Branch furosemide 2022-0 Yes [id number] TAKE 1 [facility] 40 mg 1-19 TABLET BY it[facility] of tablet 00:00: MOUTH [place] 00 EVERY Medical MORNING Branch AND EVERY EVENING levothyroxi 2022-0 Yes [id number] 175ug Take 1 [facility] ne 175 mcg 1-19 tablet by [facility] of tablet 00:00: mouth [place] [address] every Medical morning. Branch KCL 10 mEq 2022-0 Yes [id number] 20meq Take 2 [facility] tablet 1-19 tablets by it[facility] of 00:00: mouth in [place] 00 the Medical morning Branch and 2 tablets in the evening. Only take when taking lasix omeprazole 0 Yes [id number] 40mg Take 1 [facility] 40 mg 1-19 capsule by [facility] of capsule 00:00: mouth in [place] 00 the Medical morning. Branch ondansetron Yes [id number] TAKE 1 [facility] 4 mg tablet 1-19 TABLET BY ity of 00:00: MOUTH [place] 00 EVERY 8 Medical HOURS Branch NEEDED FOR NAUSEA OR VOMITING QUEtiapine 0 Yes [id number] 400mg Take 1 [facility] 400 mg 1-19 tablet by [facility] of tablet 00:00: mouth at [place] [address] bedtime. Medical ADDITIONAL Branch REFILLS PER PSYCHIATRY rosuvastati 2022- Yes [id number] 20mg Take 1 [facility] n 20 mg 1-19 tablet by [facility] of tablet 00:00: mouth at [place] [address] bedtime. Medical Branch metoprolol 2022-0 Yes [id number] TAKE 1/2 [facility] tartrate 25 1-19 TABLET BY it[facility] of mg tablet 00:00: MOUTH [place] 00 TWICE Medical DAILY Branch gabapentin 2022-0 Yes [id number] 300mg Take 1 [facility] 300 mg 1-19 capsule by [facility] of capsule 00:00: mouth in [place] 00 the Medical morning Branch and 1 capsule at noon and 1 capsule in the evening. busPIRone 2022-0 Yes [id number] TAKE 1/2 [facility] 15 mg 1-19 TO 1 ity of tablet 00:00: TABLET BY [place] 00 MOUTH Medical TWICE Branch DAILY NEEDED FOR ANXIETY carBAMazepi 2022-0 Yes [id number] 200mg Take 2 [facility] ne 100 mg 1-19 tablets by it[facility] of 12 hr 00:00: mouth at [facility] 00 bedtime. Medical Branch DULoxetine 2022-0 Yes [id number] 60mg Take 1 [facility] 60 mg 1-19 capsule by it[facility] of capsule 00:00: mouth [place] 00 every Medical morning. Branch furosemide 2022-0 Yes [id number] TAKE 1 [facility] 40 mg 1-19 TABLET BY ity of tablet 00:00: MOUTH [place] 00 EVERY Medical MORNING Branch AND EVERY EVENING levothyroxi 2022-0 Yes [id number] 175ug Take 1 [facility] ne 175 mcg 1-19 tablet by it[facility] of tablet 00:00: mouth [place] 00 every Medical morning. Branch KCL 10 mEq 2022-0 Yes [id number] 20meq Take 2 [facility] tablet 1-19 tablets by ity of 00:00: mouth in [place] 00 the Medical morning Branch and 2 tablets in the evening. Only take when taking lasix omeprazole 2022-0 Yes [id number] 40mg Take 1 [facility] 40 mg 1-19 capsule by it[facility] of capsule 00:00: mouth in [place] 00 the Medical morning. Branch ondansetron 2022-0 Yes [id number] TAKE 1 [facility] 4 mg tablet 1-19 TABLET BY ity of 00:00: MOUTH [place] 00 EVERY 8 Medical HOURS Branch NEEDED FOR NAUSEA OR VOMITING QUEtiapine 2022-0 Yes [id number] 400mg Take 1 [facility] 400 mg 1-19 tablet by [facility] of tablet 00:00: mouth at [place] [address] bedtime. Medical ADDITIONAL Branch REFILLS PER PSYCHIATRY rosuvastati 2022-0 Yes [id number] 20mg Take 1 [facility] n 20 mg 1-19 tablet by it[facility] of tablet 00:00: mouth at [place] [address] bedtime. Medical Branch metoprolol 2022-0 Yes [id number] TAKE 1/2 [facility] tartrate 25 1-19 TABLET BY ity of mg tablet 00:00: MOUTH [place] 00 TWICE Medical DAILY Branch gabapentin 2022-0 Yes [id number] 300mg Take 1 [facility] 300 mg 1-19 capsule by [facility] of capsule 00:00: mouth in [place] 00 the Medical morning Branch and 1 capsule at noon and 1 capsule in the evening. busPIRone Yes [id number] TAKE 1/2 [facility] 15 mg 1-19 TO 1 ity of tablet 00:00: TABLET BY [place] 00 MOUTH Medical TWICE Branch DAILY NEEDED FOR ANXIETY carBAMazepi 2022-0 Yes [id number] 200mg Take 2 [facility] ne 100 mg 1-19 tablets by it[facility] of 12 hr 00:00: mouth at [facility] 00 bedtime. Medical Branch DULoxetine 2022-0 Yes [id number] 60mg Take 1 [facility] 60 mg 1-19 capsule by [facility] of capsule 00:00: mouth [place] 00 every Medical morning. Branch furosemide 2022-0 Yes [id number] TAKE 1 [facility] 40 mg 1-19 TABLET BY ity of tablet 00:00: MOUTH [place] 00 EVERY Medical MORNING Branch AND EVERY EVENING levothyroxi 2022-0 Yes [id number] 175ug Take 1 [facility] ne 175 mcg 1-19 tablet by ity of tablet 00:00: mouth [place] 00 every Medical morning. Branch KCL 10 mEq 2022-0 Yes [id number] 20meq Take 2 [facility] tablet 1-19 tablets by ity of 00:00: mouth in [place] 00 the Medical morning Branch and 2 tablets in the evening. Only take when taking lasix omeprazole 0 Yes [id number] 40mg Take 1 [facility] 40 mg 1-19 capsule by it[facility] of capsule 00:00: mouth in [place] 00 the Medical morning. Branch ondansetron 0 Yes [id number] TAKE 1 [facility] 4 mg tablet 1-19 TABLET BY ity of 00:00: MOUTH [place] 00 EVERY 8 Medical HOURS Branch NEEDED FOR NAUSEA OR VOMITING QUEtiapine 2022-0 Yes [id number] 400mg Take 1 [facility] 400 mg 1-19 tablet by it[facility] of tablet 00:00: mouth at [place] [address] bedtime. Medical ADDITIONAL Branch REFILLS PER PSYCHIATRY rosuvastati 2022-0 Yes [id number] 20mg Take 1 [facility] n 20 mg 1-19 tablet by it[facility] of tablet 00:00: mouth at [place] [address] bedtime. Medical Branch metoprolol 2022-0 Yes [id number] TAKE 1/2 [facility] tartrate 25 1-19 TABLET BY ity of mg tablet 00:00: MOUTH [place] 00 TWICE Medical DAILY Branch gabapentin 2022-0 Yes [id number] 300mg Take 1 [facility] 300 mg 1-19 capsule by [facility] of capsule 00:00: mouth in [place] 00 the Medical morning Branch and 1 capsule at noon and 1 capsule in the evening. busPIRone 0 Yes [id number] TAKE 1/2 [facility] 15 mg 1-19 TO 1 ity of tablet 00:00: TABLET BY [place] 00 MOUTH Medical TWICE Branch DAILY NEEDED FOR ANXIETY carBAMazepi 2022-0 Yes [id number] 200mg Take 2 [facility] ne 100 mg 1-19 tablets by ity of 12 hr 00:00: mouth at [facility] 00 bedtime. Medical Branch DULoxetine 2022-0 Yes [id number] 60mg Take 1 [facility] 60 mg 1-19 capsule by ity of capsule 00:00: mouth [place] 00 every Medical morning. Branch furosemide 2022-0 Yes [id number] TAKE 1 [facility] 40 mg 1-19 TABLET BY ity of tablet 00:00: MOUTH [place] 00 EVERY Medical MORNING Branch AND EVERY EVENING levothyroxi 2022-0 Yes [id number] 175ug Take 1 [facility] ne 175 mcg 1-19 tablet by ity of tablet 00:00: mouth [place] 00 every Medical morning. Branch KCL 10 mEq 2022-0 Yes [id number] 20meq Take 2 [facility] tablet 1-19 tablets by ity of 00:00: mouth in [place] 00 the Medical morning Branch and 2 tablets in the evening. Only take when taking lasix omeprazole 2022-0 Yes [id number] 40mg Take 1 [facility] 40 mg 1-19 capsule by it[facility] of capsule 00:00: mouth in [place] 00 the Medical morning. Branch ondansetron 2022-0 Yes [id number] TAKE 1 [facility] 4 mg tablet 1-19 TABLET BY ity of 00:00: MOUTH [place] 00 EVERY 8 Medical HOURS Branch NEEDED FOR NAUSEA OR VOMITING QUEtiapine 2022-0 Yes [id number] 400mg Take 1 [facility] 400 mg 1-19 tablet by ity of tablet 00:00: mouth at [place] [address] bedtime. Medical ADDITIONAL Branch REFILLS PER PSYCHIATRY rosuvastati 2022-0 Yes [id number] 20mg Take 1 [facility] n 20 mg 1-19 tablet by it[facility] of tablet 00:00: mouth at [place] [address] bedtime. Medical Branch metoprolol 2022-0 Yes [id number] TAKE 1/2 [facility] tartrate 25 1-19 TABLET BY ity of mg tablet 00:00: MOUTH [place] 00 TWICE Medical DAILY Branch gabapentin Yes [id number] 300mg Take 1 [facility] 300 mg 1-19 capsule by it[facility] of capsule 00:00: mouth in [place] 00 the Medical morning Branch and 1 capsule at noon and 1 capsule in the evening. busPIRone Yes [id number] TAKE 1/2 [facility] 15 mg 1-19 TO 1 ity of tablet 00:00: TABLET BY [place] 00 MOUTH Medical TWICE Branch DAILY NEEDED FOR ANXIETY carBAMazepi 0 Yes [id number] 200mg Take 2 [facility] ne 100 mg 1-19 tablets by ity of 12 hr 00:00: mouth at [facility] 00 bedtime. Medical Branch DULoxetine Yes [id number] 60mg Take 1 [facility] 60 mg 1-19 capsule by ity of capsule 00:00: mouth [place] 00 every Medical morning. Branch furosemide Yes [id number] TAKE 1 [facility] 40 mg 1-19 TABLET BY ity of tablet 00:00: MOUTH [place] 00 EVERY Medical MORNING Branch AND EVERY EVENING levothyroxi 2022- Yes [id number] 175ug Take 1 [facility] ne 175 mcg 1-19 tablet by ity of tablet 00:00: mouth [place] 00 every Medical morning. Branch KCL 10 mEq Yes [id number] 20meq Take 2 [facility] tablet 1-19 tablets by ity of 00:00: mouth in [place] 00 the Medical morning Branch and 2 tablets in the evening. Only take when taking lasix omeprazole Yes [id number] 40mg Take 1 [facility] 40 mg 1-19 capsule by it[facility] of capsule 00:00: mouth in [place] 00 the Medical morning. Branch ondansetron Yes [id number] TAKE 1 [facility] 4 mg tablet 1-19 TABLET BY ity of 00:00: MOUTH [place] 00 EVERY 8 Medical HOURS Branch NEEDED FOR NAUSEA OR VOMITING QUEtiapine 2022-0 Yes [id number] 400mg Take 1 [facility] 400 mg 1-19 tablet by ity of tablet 00:00: mouth at [place] [address] bedtime. Medical ADDITIONAL Branch REFILLS PER PSYCHIATRY rosuvastati Yes [id number] 20mg Take 1 [facility] n 20 mg 1-19 tablet by ity of tablet 00:00: mouth at [place] [address] bedtime. Medical Branch metoprolol Yes [id number] TAKE 1/2 [facility] tartrate 25 1-19 TABLET BY ity of mg tablet 00:00: MOUTH [place] 00 TWICE Medical DAILY Branch gabapentin 2022-0 Yes [id number] 300mg Take 1 [facility] 300 mg 1-19 capsule by ity of capsule 00:00: mouth in [place] 00 the Medical morning Branch and 1 capsule at noon and 1 capsule in the evening. busPIRone 2022-0 Yes [id number] TAKE 1/2 [facility] 15 mg 1-19 TO 1 ity of tablet 00:00: TABLET BY [place] 00 MOUTH Medical TWICE Branch DAILY NEEDED FOR ANXIETY carBAMazepi 2022-0 Yes [id number] 200mg Take 2 [facility] ne 100 mg 1-19 tablets by ity of 12 hr 00:00: mouth at [facility] 00 bedtime. Medical Branch DULoxetine 2022-0 Yes [id number] 60mg Take 1 [facility] 60 mg 1-19 capsule by ity of capsule 00:00: mouth [place] [address] every Medical morning. Branch furosemide 2022-0 Yes [id number] TAKE 1 [facility] 40 mg 1-19 TABLET BY ity of tablet 00:00: MOUTH [place] 00 EVERY Medical MORNING Branch AND EVERY EVENING levothyroxi 2022-0 Yes [id number] 175ug Take 1 [facility] ne 175 mcg 1-19 tablet by ity of tablet 00:00: mouth [place] [address] every Medical morning. Branch KCL 10 mEq 2022-0 Yes [id number] 20meq Take 2 [facility] tablet 1-19 tablets by ity of 00:00: mouth in [place] 00 the Medical morning Branch and 2 tablets in the evening. Only take when taking lasix omeprazole 2022-0 Yes [id number] 40mg Take 1 [facility] 40 mg 1-19 capsule by it[facility] of capsule 00:00: mouth in [place] 00 the Medical morning. Branch ondansetron 2022-0 Yes [id number] TAKE 1 [facility] 4 mg tablet 1-19 TABLET BY ity of 00:00: MOUTH [place] [address] EVERY 8 Medical HOURS Branch NEEDED FOR NAUSEA OR VOMITING QUEtiapine 2022-0 Yes [id number] 400mg Take 1 [facility] 400 mg 1-19 tablet by it[facility] of tablet 00:00: mouth at [place] [address] bedtime. Medical ADDITIONAL Branch REFILLS PER PSYCHIATRY rosuvastati 2022-0 Yes [id number] 20mg Take 1 [facility] n 20 mg 1-19 tablet by it[facility] of tablet 00:00: mouth at [place] [address] bedtime. Medical Branch metoprolol 2022-0 Yes [id number] TAKE 1/2 [facility] tartrate 25 1-19 TABLET BY ity of mg tablet 00:00: MOUTH [place] 00 TWICE Medical DAILY Branch gabapentin 2022-0 Yes [id number] 300mg Take 1 [facility] 300 mg 1-19 capsule by it[facility] of capsule 00:00: mouth in [place] 00 the Medical morning Branch and 1 capsule at noon and 1 capsule in the evening. busPIRone 2022-0 Yes [id number] TAKE 1/2 [facility] 15 mg 1-19 TO 1 ity of tablet 00:00: TABLET BY [place] 00 MOUTH Medical TWICE Branch DAILY NEEDED FOR ANXIETY carBAMazepi 2022-0 Yes [id number] 200mg Take 2 [facility] ne 100 mg 1-19 tablets by ity of 12 hr 00:00: mouth at [facility] 00 bedtime. Medical Branch DULoxetine 0 Yes [id number] 60mg Take 1 [facility] 60 mg 1-19 capsule by it[facility] of capsule 00:00: mouth [place] [address] every Medical morning. Branch furosemide 2022-0 Yes [id number] TAKE 1 [facility] 40 mg 1-19 TABLET BY ity of tablet 00:00: MOUTH [place] 00 EVERY Medical MORNING Branch AND EVERY EVENING levothyroxi 2022-0 Yes [id number] 175ug Take 1 [facility] ne 175 mcg 1-19 tablet by ity of tablet 00:00: mouth [place] 00 every Medical morning. Branch KCL 10 mEq 2022-0 Yes [id number] 20meq Take 2 [facility] tablet 1-19 tablets by ity of 00:00: mouth in [place] 00 the Medical morning Branch and 2 tablets in the evening. Only take when taking lasix omeprazole 2022-0 Yes [id number] 40mg Take 1 [facility] 40 mg 1-19 capsule by ity of capsule 00:00: mouth in [place] [address] the Medical morning. Branch ondansetron 2022-0 Yes [id number] TAKE 1 [facility] 4 mg tablet 1-19 TABLET BY ity of 00:00: MOUTH [place] 00 EVERY 8 Medical HOURS Branch NEEDED FOR NAUSEA OR VOMITING QUEtiapine 2022-0 Yes [id number] 400mg Take 1 [facility] 400 mg 1-19 tablet by ity of tablet 00:00: mouth at [place] [address] bedtime. Medical ADDITIONAL Branch REFILLS PER PSYCHIATRY rosuvastati 2022-0 Yes [id number] 20mg Take 1 [facility] n 20 mg 1-19 tablet by ity of tablet 00:00: mouth at [place] [address] bedtime. Medical Branch metoprolol 2022-0 Yes [id number] TAKE 1/2 [facility] tartrate 25 1-19 TABLET BY ity of mg tablet 00:00: MOUTH [place] 00 TWICE Medical DAILY Branch gabapentin 2022-0 Yes [id number] 300mg Take 1 [facility] 300 mg 1-19 capsule by ity of capsule 00:00: mouth in [place] 00 the Medical morning Branch and 1 capsule at noon and 1 capsule in the evening. busPIRone 2022-0 Yes [id number] TAKE 1/2 [facility] 15 mg 1-19 TO 1 ity of tablet 00:00: TABLET BY [place] [address] MOUTH Medical TWICE Branch DAILY NEEDED FOR ANXIETY carBAMazepi 2022-0 Yes [id number] 200mg Take 2 [facility] ne 100 mg 1-19 tablets by ity of 12 hr 00:00: mouth at [place] [address] bedtime. Medical Branch DULoxetine 2022-0 Yes [id number] 60mg Take 1 [facility] 60 mg 1-19 capsule by ity of capsule 00:00: mouth [place] 00 every Medical morning. Branch furosemide 2022-0 Yes [id number] TAKE 1 [facility] 40 mg 1-19 TABLET BY ity of tablet 00:00: MOUTH [place] 00 EVERY Medical MORNING Branch AND EVERY EVENING levothyroxi 2022-0 Yes [id number] 175ug Take 1 [facility] ne 175 mcg 1-19 tablet by ity of tablet 00:00: mouth [place] 00 every Medical morning. Branch KCL 10 mEq 2022-0 Yes [id number] 20meq Take 2 [facility] tablet 1-19 tablets by ity of 00:00: mouth in [place] 00 the Medical morning Branch and 2 tablets in the evening. Only take when taking lasix omeprazole 2022-0 Yes [id number] 40mg Take 1 [facility] 40 mg 1-19 capsule by ity of capsule 00:00: mouth in [place] 00 the Medical morning. Branch ondansetron 2022-0 Yes [id number] TAKE 1 [facility] 4 mg tablet 1-19 TABLET BY ity of 00:00: MOUTH [place] 00 EVERY 8 Medical HOURS Branch NEEDED FOR NAUSEA OR VOMITING QUEtiapine 2022-0 Yes [id number] 400mg Take 1 [facility] 400 mg 1-19 tablet by ity of tablet 00:00: mouth at [place] [address] bedtime. Medical ADDITIONAL Branch REFILLS PER PSYCHIATRY rosuvastati 2022-0 Yes [id number] 20mg Take 1 [facility] n 20 mg 1-19 tablet by ity of tablet 00:00: mouth at [place] [address] bedtime. Medical Branch metoprolol 2022-0 Yes [id number] TAKE 1/2 [facility] tartrate 25 1-19 TABLET BY ity of mg tablet 00:00: MOUTH [place] 00 TWICE Medical DAILY Branch gabapentin 2022-0 Yes [id number] 300mg Take 1 [facility] 300 mg 1-19 capsule by ity of capsule 00:00: mouth in [place] 00 the Medical morning Branch and 1 capsule at noon and 1 capsule in the evening. busPIRone 2022-0 Yes [id number] TAKE 1/2 [facility] 15 mg 1-19 TO 1 ity of tablet 00:00: TABLET BY [place] 00 MOUTH Medical TWICE Branch DAILY NEEDED FOR ANXIETY carBAMazepi 2022-0 Yes [id number] 200mg Take 2 [facility] ne 100 mg 1-19 tablets by ity of 12 hr 00:00: mouth at [place] [address] bedtime. Medical Branch DULoxetine 2022-0 Yes [id number] 60mg Take 1 [facility] 60 mg 1-19 capsule by ity of capsule 00:00: mouth [place] 00 every Medical morning. Branch furosemide 2022-0 Yes [id number] TAKE 1 [facility] 40 mg 1-19 TABLET BY ity of tablet 00:00: MOUTH [place] 00 EVERY Medical MORNING Branch AND EVERY EVENING levothyroxi 2022-0 Yes [id number] 175ug Take 1 [facility] ne 175 mcg 1-19 tablet by ity of tablet 00:00: mouth [place] 00 every Medical morning. Branch KCL 10 mEq 2022-0 Yes [id number] 20meq Take 2 [facility] tablet 1-19 tablets by ity of 00:00: mouth in [place] 00 the Medical morning Branch and 2 tablets in the evening. Only take when taking lasix omeprazole 2022-0 Yes [id number] 40mg Take 1 [facility] 40 mg 1-19 capsule by ity of capsule 00:00: mouth in [place] 00 the Medical morning. Branch ondansetron 2022-0 Yes [id number] TAKE 1 [facility] 4 mg tablet 1-19 TABLET BY ity of 00:00: MOUTH [place] 00 EVERY 8 Medical HOURS Branch NEEDED FOR NAUSEA OR VOMITING QUEtiapine 2022-0 Yes [id number] 400mg Take 1 [facility] 400 mg 1-19 tablet by [facility] tablet 00:00: mouth at [place] [address] bedtime. Medical ADDITIONAL Branch REFILLS PER PSYCHIATRY rosuvastati 2022-0 Yes [id number] 20mg Take 1 [facility] n 20 mg 1-19 tablet by [facility] tablet 00:00: mouth at [place] [address] bedtime. Medical Branch metoprolol 2022-0 Yes [id number] TAKE 1/2 [facility] tartrate 25 1-19 TABLET BY [facility] of mg tablet 00:00: MOUTH [place] 00 TWICE Medical DAILY Branch gabapentin 2022-0 Yes [id number] 300mg Take 1 [facility] 300 mg 1-19 capsule by [facility] capsule 00:00: mouth in [place] 00 the Medical morning Branch and 1 capsule at noon and 1 capsule in the evening. busPIRone 2022-0 Yes [id number] TAKE 1/2 [facility] 15 mg 1-19 TO 1 [facility] tablet 00:00: TABLET BY [place] 00 MOUTH Medical TWICE Branch DAILY NEEDED FOR ANXIETY carBAMazepi 2022-0 Yes [id number] 200mg Take 2 [facility] ne 100 mg 1-19 tablets by [facility] of 12 hr 00:00: mouth at [facility] 00 bedtime. Medical Branch DULoxetine 2022-0 Yes [id number] 60mg Take 1 [facility] 60 mg 1-19 capsule by [facility] of capsule 00:00: mouth [place] 00 every Medical morning. Branch furosemide 2022-0 Yes [id number] TAKE 1 [facility] 40 mg 1-19 TABLET BY [facility] of tablet 00:00: MOUTH [place] 00 EVERY Medical MORNING Branch AND EVERY EVENING levothyroxi 2022-0 Yes [id number] 175ug Take 1 [facility] ne 175 mcg 1-19 tablet by [facility] of tablet 00:00: mouth [place] 00 every Medical morning. Branch KCL 10 mEq 2022-0 Yes [id number] 20meq Take 2 [facility] tablet 1-19 tablets by [facility] of 00:00: mouth in [place] 00 the Medical morning Branch and 2 tablets in the evening. Only take when taking lasix omeprazole 2022-0 Yes [id number] 40mg Take 1 [facility] 40 mg 1-19 capsule by [facility] of capsule 00:00: mouth in [place] [address] the Medical morning. Branch ondansetron 2022-0 Yes [id number] TAKE 1 [facility] 4 mg tablet 1-19 TABLET BY [facility] of 00:00: MOUTH [place] 00 EVERY 8 Medical HOURS Branch NEEDED FOR NAUSEA OR VOMITING QUEtiapine 0 Yes [id number] 400mg Take 1 [facility] 400 mg 1-19 tablet by [facility] tablet 00:00: mouth at [place] [address] bedtime. Medical ADDITIONAL Branch REFILLS PER PSYCHIATRY rosuvastati 2022-0 Yes [id number] 20mg Take 1 [facility] n 20 mg 1-19 tablet by [facility] of tablet 00:00: mouth at [place] [address] bedtime. Medical Branch metoprolol 2022-0 Yes [id number] TAKE 1/2 [facility] tartrate 25 1-19 TABLET BY [facility] of mg tablet 00:00: MOUTH [place] 00 TWICE Medical DAILY Branch gabapentin 2022-0 Yes [id number] 300mg Take 1 [facility] 300 mg 1-19 capsule by [facility] of capsule 00:00: mouth in [place] 00 the Medical morning Branch and 1 capsule at noon and 1 capsule in the evening. busPIRone Yes [id number] TAKE 1/2 [facility] 15 mg 1-19 TO 1 [facility] of tablet 00:00: TABLET BY [place] 00 MOUTH Medical TWICE Branch DAILY NEEDED FOR ANXIETY carBAMazepi 0 Yes [id number] 200mg Take 2 [facility] ne 100 mg 1-19 tablets by [facility] of 12 hr 00:00: mouth at [facility] 00 bedtime. Medical Branch DULoxetine 0 Yes [id number] 60mg Take 1 [facility] 60 mg 1-19 capsule by [facility] of capsule 00:00: mouth [place] 00 every Medical morning. Branch furosemide 0 Yes [id number] TAKE 1 [facility] 40 mg 1-19 TABLET BY [facility] of tablet 00:00: MOUTH [place] 00 EVERY Medical MORNING Branch AND EVERY EVENING levothyroxi 2022-0 Yes [id number] 175ug Take 1 [facility] ne 175 mcg 1-19 tablet by it[facility] of tablet 00:00: mouth [place] 00 every Medical morning. Branch KCL 10 mEq 2022-0 Yes [id number] 20meq Take 2 [facility] tablet 1-19 tablets by [facility] of 00:00: mouth in [place] 00 the Medical morning Branch and 2 tablets in the evening. Only take when taking lasix omeprazole 2022-0 Yes [id number] 40mg Take 1 [facility] 40 mg 1-19 capsule by [facility] of capsule 00:00: mouth in [place] 00 the Medical morning. Branch ondansetron 0 Yes [id number] TAKE 1 [facility] 4 mg tablet 1-19 TABLET BY [facility] of 00:00: MOUTH [place] 00 EVERY 8 Medical HOURS Branch NEEDED FOR NAUSEA OR VOMITING QUEtiapine 2022-0 Yes [id number] 400mg Take 1 [facility] 400 mg 1-19 tablet by [facility] of tablet 00:00: mouth at [place] [address] bedtime. Medical ADDITIONAL Branch REFILLS PER PSYCHIATRY rosuvastati 2022-0 Yes [id number] 20mg Take 1 [facility] n 20 mg 1-19 tablet by it[facility] of tablet 00:00: mouth at [place] [address] bedtime. Medical Branch metoprolol 2022-0 Yes [id number] TAKE 1/2 [facility] tartrate 25 1-19 TABLET BY [facility] of mg tablet 00:00: MOUTH [place] [address] TWICE Medical DAILY Branch gabapentin 2022-0 Yes [id number] 300mg Take 1 [facility] 300 mg 1-19 capsule by [facility] of capsule 00:00: mouth in [place] 00 the Medical morning Branch and 1 capsule at noon and 1 capsule in the evening. busPIRone 0 Yes [id number] TAKE 1/2 [facility] 15 mg 1-19 TO 1 it[facility] of tablet 00:00: TABLET BY [place] [address] MOUTH Medical TWICE Branch DAILY NEEDED FOR ANXIETY carBAMazepi 2022-0 Yes [id number] 200mg Take 2 [facility] ne 100 mg 1-19 tablets by it[facility] of 12 hr 00:00: mouth at [facility] 00 bedtime. Medical Branch DULoxetine 2022-0 Yes [id number] 60mg Take 1 [facility] 60 mg 1-19 capsule by it[facility] of capsule 00:00: mouth [place] 00 every Medical morning. Branch furosemide 2022-0 Yes [id number] TAKE 1 [facility] 40 mg 1-19 TABLET BY it[facility] of tablet 00:00: MOUTH [place] 00 EVERY Medical MORNING Branch AND EVERY EVENING levothyroxi 2022-0 Yes [id number] 175ug Take 1 [facility] ne 175 mcg 1-19 tablet by [facility] of tablet 00:00: mouth [place] [address] every Medical morning. Branch KCL 10 mEq 2022-0 Yes [id number] 20meq Take 2 [facility] tablet 1-19 tablets by it[facility] of 00:00: mouth in [place] 00 the Medical morning Branch and 2 tablets in the evening. Only take when taking lasix omeprazole 2022-0 Yes [id number] 40mg Take 1 [facility] 40 mg 1-19 capsule by [facility] of capsule 00:00: mouth in [place] 00 the Medical morning. Branch ondansetron 0 Yes [id number] TAKE 1 [facility] 4 mg tablet 1-19 TABLET BY [facility] of 00:00: MOUTH [place] 00 EVERY 8 Medical HOURS Branch NEEDED FOR NAUSEA OR VOMITING QUEtiapine 2022-0 Yes [id number] 400mg Take 1 [facility] 400 mg 1-19 tablet by [facility] of tablet 00:00: mouth at [place] [address] bedtime. Medical ADDITIONAL Branch REFILLS PER PSYCHIATRY rosuvastati 2022-0 Yes [id number] 20mg Take 1 [facility] n 20 mg 1-19 tablet by [facility] of tablet 00:00: mouth at [place] [address] bedtime. Medical Branch metoprolol 2022-0 Yes [id number] TAKE 1/2 [facility] tartrate 25 1-19 TABLET BY [facility] of mg tablet 00:00: MOUTH [place] 00 TWICE Medical DAILY Branch gabapentin 2022-0 Yes [id number] 300mg Take 1 [facility] 300 mg 1-19 capsule by [facility] of capsule 00:00: mouth in [place] 00 the Medical morning Branch and 1 capsule at noon and 1 capsule in the evening. busPIRone 2022-0 Yes [id number] TAKE 1/2 [facility] 15 mg 1-19 TO 1 it[facility] of tablet 00:00: TABLET BY [place] 00 MOUTH Medical TWICE Branch DAILY NEEDED FOR ANXIETY carBAMazepi 2022-0 Yes [id number] 200mg Take 2 [facility] ne 100 mg 1-19 tablets by it[facility] of 12 hr 00:00: mouth at [facility] 00 bedtime. Medical Branch DULoxetine 2022-0 Yes [id number] 60mg Take 1 [facility] 60 mg 1-19 capsule by [facility] of capsule 00:00: mouth [place] 00 every Medical morning. Branch furosemide 2022-0 Yes [id number] TAKE 1 [facility] 40 mg 1-19 TABLET BY it[facility] of tablet 00:00: MOUTH [place] 00 EVERY Medical MORNING Branch AND EVERY EVENING levothyroxi 2022-0 Yes [id number] 175ug Take 1 [facility] ne 175 mcg 1-19 tablet by it[facility] of tablet 00:00: mouth [place] 00 every Medical morning. Branch KCL 10 mEq 2022-0 Yes [id number] 20meq Take 2 [facility] tablet 1-19 tablets by it[facility] of 00:00: mouth in [place] 00 the Medical morning Branch and 2 tablets in the evening. Only take when taking lasix omeprazole 2022-0 Yes [id number] 40mg Take 1 [facility] 40 mg 1-19 capsule by it[facility] of capsule 00:00: mouth in [place] 00 the Medical morning. Branch ondansetron 2022-0 Yes [id number] TAKE 1 [facility] 4 mg tablet 1-19 TABLET BY it[facility] of 00:00: MOUTH [place] 00 EVERY 8 Medical HOURS Branch NEEDED FOR NAUSEA OR VOMITING QUEtiapine 2022-0 Yes [id number] 400mg Take 1 [facility] 400 mg 1-19 tablet by [facility] of tablet 00:00: mouth at [place] [address] bedtime. Medical ADDITIONAL Branch REFILLS PER PSYCHIATRY rosuvastati 2022-0 Yes [id number] 20mg Take 1 [facility] n 20 mg 1-19 tablet by [facility] of tablet 00:00: mouth at [place] [address] bedtime. Medical Branch metoprolol 2022-0 Yes [id number] TAKE 1/2 [facility] tartrate 25 1-19 TABLET BY it[facility] of mg tablet 00:00: MOUTH [place] [address] TWICE Medical DAILY Branch gabapentin 2022-0 Yes [id number] 300mg Take 1 [facility] 300 mg 1-19 capsule by it[facility] of capsule 00:00: mouth in [place] 00 the Medical morning Branch and 1 capsule at noon and 1 capsule in the evening. busPIRone 2022-0 Yes [id number] TAKE 1/2 [facility] 15 mg 1-19 TO 1 ity of tablet 00:00: TABLET BY [place] 00 MOUTH Medical TWICE Branch DAILY NEEDED FOR ANXIETY carBAMazepi 2022-0 Yes [id number] 200mg Take 2 [facility] ne 100 mg 1-19 tablets by it[facility] of 12 hr 00:00: mouth at [facility] 00 bedtime. Medical Branch DULoxetine 2022-0 Yes [id number] 60mg Take 1 [facility] 60 mg 1-19 capsule by [facility] of capsule 00:00: mouth [place] 00 every Medical morning. Branch furosemide 2022-0 Yes [id number] TAKE 1 [facility] 40 mg 1-19 TABLET BY ity of tablet 00:00: MOUTH [place] 00 EVERY Medical MORNING Branch AND EVERY EVENING levothyroxi 2022-0 Yes [id number] 175ug Take 1 [facility] ne 175 mcg 1-19 tablet by ity of tablet 00:00: mouth [place] [address] every Medical morning. Branch KCL 10 mEq 2022-0 Yes [id number] 20meq Take 2 [facility] tablet 1-19 tablets by ity of 00:00: mouth in [place] 00 the Medical morning Branch and 2 tablets in the evening. Only take when taking lasix omeprazole 2022-0 Yes [id number] 40mg Take 1 [facility] 40 mg 1-19 capsule by it[facility] of capsule 00:00: mouth in [place] 00 the Medical morning. Branch ondansetron 2022-0 Yes [id number] TAKE 1 [facility] 4 mg tablet 1-19 TABLET BY ity of 00:00: MOUTH [place] 00 EVERY 8 Medical HOURS Branch NEEDED FOR NAUSEA OR VOMITING QUEtiapine 2022-0 Yes [id number] 400mg Take 1 [facility] 400 mg 1-19 tablet by it[facility] of tablet 00:00: mouth at [place] [address] bedtime. Medical ADDITIONAL Branch REFILLS PER PSYCHIATRY rosuvastati 2022-0 Yes [id number] 20mg Take 1 [facility] n 20 mg 1-19 tablet by it[facility] of tablet 00:00: mouth at [place] [address] bedtime. Medical Branch metoprolol 2022-0 Yes [id number] TAKE 1/2 [facility] tartrate 25 1-19 TABLET BY ity of mg tablet 00:00: MOUTH [place] 00 TWICE Medical DAILY Branch gabapentin 2022-0 Yes [id number] 300mg Take 1 [facility] 300 mg 1-19 capsule by it[facility] of capsule 00:00: mouth in [place] 00 the Medical morning Branch and 1 capsule at noon and 1 capsule in the evening. busPIRone 0 Yes [id number] TAKE 1/2 [facility] 15 mg 1-19 TO 1 ity of tablet 00:00: TABLET BY [place] 00 MOUTH Medical TWICE Branch DAILY NEEDED FOR ANXIETY carBAMazepi 2022-0 Yes [id number] 200mg Take 2 [facility] ne 100 mg 1-19 tablets by ity of 12 hr 00:00: mouth at [facility] 00 bedtime. Medical Branch DULoxetine 2022-0 Yes [id number] 60mg Take 1 [facility] 60 mg 1-19 capsule by ity of capsule 00:00: mouth [place] 00 every Medical morning. Branch furosemide 2022-0 Yes [id number] TAKE 1 [facility] 40 mg 1-19 TABLET BY ity of tablet 00:00: MOUTH [place] 00 EVERY Medical MORNING Branch AND EVERY EVENING levothyroxi 2022-0 Yes [id number] 175ug Take 1 [facility] ne 175 mcg 1-19 tablet by ity of tablet 00:00: mouth [place] [address] every Medical morning. Branch KCL 10 mEq 2022-0 Yes [id number] 20meq Take 2 [facility] tablet 1-19 tablets by ity of 00:00: mouth in [place] 00 the Medical morning Branch and 2 tablets in the evening. Only take when taking lasix omeprazole 2022-0 Yes [id number] 40mg Take 1 [facility] 40 mg 1-19 capsule by it[facility] of capsule 00:00: mouth in [place] 00 the Medical morning. Branch ondansetron 2022-0 Yes [id number] TAKE 1 [facility] 4 mg tablet 1-19 TABLET BY ity of 00:00: MOUTH [place] [address] EVERY 8 Medical HOURS Branch NEEDED FOR NAUSEA OR VOMITING QUEtiapine 2022-0 Yes [id number] 400mg Take 1 [facility] 400 mg 1-19 tablet by it[facility] of tablet 00:00: mouth at [place] [address] bedtime. Medical ADDITIONAL Branch REFILLS PER PSYCHIATRY rosuvastati 2022-0 Yes [id number] 20mg Take 1 [facility] n 20 mg 1-19 tablet by [facility] of tablet 00:00: mouth at [place] [address] bedtime. Medical Branch metoprolol 2022-0 Yes [id number] TAKE 1/2 [facility] tartrate 25 1-19 TABLET BY ity of mg tablet 00:00: MOUTH [place] 00 TWICE Medical DAILY Branch gabapentin 2022-0 Yes [id number] 300mg Take 1 [facility] 300 mg 1-19 capsule by ity of capsule 00:00: mouth in [place] 00 the Medical morning Branch and 1 capsule at noon and 1 capsule in the evening. busPIRone 2022-0 Yes [id number] TAKE 1/2 [facility] 15 mg 1-19 TO 1 ity of tablet 00:00: TABLET BY [place] 00 MOUTH Medical TWICE Branch DAILY NEEDED FOR ANXIETY carBAMazepi 2022-0 Yes [id number] 200mg Take 2 [facility] ne 100 mg 1-19 tablets by ity of 12 hr 00:00: mouth at [facility] 00 bedtime. Medical Branch DULoxetine 2022-0 Yes [id number] 60mg Take 1 [facility] 60 mg 1-19 capsule by ity of capsule 00:00: mouth [place] [address] every Medical morning. Branch furosemide 2022-0 Yes [id number] TAKE 1 [facility] 40 mg 1-19 TABLET BY ity of tablet 00:00: MOUTH [place] 00 EVERY Medical MORNING Branch AND EVERY EVENING levothyroxi 2022-0 Yes [id number] 175ug Take 1 [facility] ne 175 mcg 1-19 tablet by ity of tablet 00:00: mouth [place] 00 every Medical morning. Branch KCL 10 mEq 2022-0 Yes [id number] 20meq Take 2 [facility] tablet 1-19 tablets by ity of 00:00: mouth in [place] 00 the Medical morning Branch and 2 tablets in the evening. Only take when taking lasix omeprazole 2022-0 Yes [id number] 40mg Take 1 [facility] 40 mg 1-19 capsule by it[facility] of capsule 00:00: mouth in [place] [address] the Medical morning. Branch ondansetron 2022-0 Yes [id number] TAKE 1 [facility] 4 mg tablet 1-19 TABLET BY ity of 00:00: MOUTH [place] 00 EVERY 8 Medical HOURS Branch NEEDED FOR NAUSEA OR VOMITING QUEtiapine 2022-0 Yes [id number] 400mg Take 1 [facility] 400 mg 1-19 tablet by it[facility] of tablet 00:00: mouth at [place] [address] bedtime. Medical ADDITIONAL Branch REFILLS PER PSYCHIATRY rosuvastati 2022-0 Yes [id number] 20mg Take 1 [facility] n 20 mg 1-19 tablet by it[facility] of tablet 00:00: mouth at [place] [address] bedtime. Medical Branch metoprolol 2022-0 Yes [id number] TAKE 1/2 [facility] tartrate 25 1-19 TABLET BY ity of mg tablet 00:00: MOUTH [place] [address] TWICE Medical DAILY Branch gabapentin 2022-0 Yes [id number] 300mg Take 1 [facility] 300 mg 1-19 capsule by ity of capsule 00:00: mouth in [place] 00 the Medical morning Branch and 1 capsule at noon and 1 capsule in the evening. busPIRone 2022-0 Yes [id number] TAKE 1/2 [facility] 15 mg 1-19 TO 1 ity of tablet 00:00: TABLET BY [place] 00 MOUTH Medical TWICE Branch DAILY NEEDED FOR ANXIETY carBAMazepi 2022-0 Yes [id number] 200mg Take 2 [facility] ne 100 mg 1-19 tablets by ity of 12 hr 00:00: mouth at [facility] 00 bedtime. Medical Branch DULoxetine 2022-0 Yes [id number] 60mg Take 1 [facility] 60 mg 1-19 capsule by ity of capsule 00:00: mouth [place] [address] every Medical morning. Branch furosemide 2022-0 Yes [id number] TAKE 1 [facility] 40 mg 1-19 TABLET BY ity of tablet 00:00: MOUTH [place] 00 EVERY Medical MORNING Branch AND EVERY EVENING levothyroxi 2022-0 Yes [id number] 175ug Take 1 [facility] ne 175 mcg 1-19 tablet by ity of tablet 00:00: mouth [place] 00 every Medical morning. Branch KCL 10 mEq 2022-0 Yes [id number] 20meq Take 2 [facility] tablet 1-19 tablets by ity of 00:00: mouth in [place] 00 the Medical morning Branch and 2 tablets in the evening. Only take when taking lasix omeprazole 2022-0 Yes [id number] 40mg Take 1 [facility] 40 mg 1-19 capsule by ity of capsule 00:00: mouth in [place] 00 the Medical morning. Branch ondansetron 2022-0 Yes [id number] TAKE 1 [facility] 4 mg tablet 1-19 TABLET BY ity of 00:00: MOUTH [place] 00 EVERY 8 Medical HOURS Branch NEEDED FOR NAUSEA OR VOMITING QUEtiapine 2022-0 Yes [id number] 400mg Take 1 [facility] 400 mg 1-19 tablet by ity of tablet 00:00: mouth at [place] [address] bedtime. Medical ADDITIONAL Branch REFILLS PER PSYCHIATRY rosuvastati 2022-0 Yes [id number] 20mg Take 1 [facility] n 20 mg 1-19 tablet by it[facility] of tablet 00:00: mouth at [place] [address] bedtime. Medical Branch metoprolol 2022-0 Yes [id number] TAKE 1/2 [facility] tartrate 25 1-19 TABLET BY ity of mg tablet 00:00: MOUTH [place] 00 TWICE Medical DAILY Branch gabapentin 2022-0 Yes [id number] 300mg Take 1 [facility] 300 mg 1-19 capsule by ity of capsule 00:00: mouth in [place] 00 the Medical morning Branch and 1 capsule at noon and 1 capsule in the evening. busPIRone 2022-0 Yes [id number] TAKE 1/2 [facility] 15 mg 1-19 TO 1 ity of tablet 00:00: TABLET BY [place] 00 MOUTH Medical TWICE Branch DAILY NEEDED FOR ANXIETY carBAMazepi 2022-0 Yes [id number] 200mg Take 2 [facility] ne 100 mg 1-19 tablets by ity of 12 hr 00:00: mouth at [facility] 00 bedtime. Medical Branch DULoxetine 2022-0 Yes [id number] 60mg Take 1 [facility] 60 mg 1-19 capsule by ity of capsule 00:00: mouth [place] [address] every Medical morning. Branch furosemide 2022-0 Yes [id number] TAKE 1 [facility] 40 mg 1-19 TABLET BY ity of tablet 00:00: MOUTH [place] 00 EVERY Medical MORNING Branch AND EVERY EVENING levothyroxi 2022-0 Yes [id number] 175ug Take 1 [facility] ne 175 mcg 1-19 tablet by ity of tablet 00:00: mouth [place] [address] every Medical morning. Branch KCL 10 mEq 2022-0 Yes [id number] 20meq Take 2 [facility] tablet 1-19 tablets by ity of 00:00: mouth in [place] 00 the Medical morning Branch and 2 tablets in the evening. Only take when taking lasix omeprazole 2022-0 Yes [id number] 40mg Take 1 [facility] 40 mg 1-19 capsule by ity of capsule 00:00: mouth in [place] 00 the Medical morning. Branch ondansetron 0 Yes [id number] TAKE 1 [facility] 4 mg tablet 1-19 TABLET BY ity of 00:00: MOUTH [place] [address] EVERY 8 Medical HOURS Branch NEEDED FOR NAUSEA OR VOMITING QUEtiapine 2022-0 Yes [id number] 400mg Take 1 [facility] 400 mg 1-19 tablet by ity of tablet 00:00: mouth at [place] [address] bedtime. Medical ADDITIONAL Branch REFILLS PER PSYCHIATRY rosuvastati 2022-0 Yes [id number] 20mg Take 1 [facility] n 20 mg 1-19 tablet by it[facility] of tablet 00:00: mouth at [place] [address] bedtime. Medical Branch metoprolol 2022-0 Yes [id number] TAKE 1/2 [facility] tartrate 25 1-19 TABLET BY ity of mg tablet 00:00: MOUTH [place] [address] TWICE Medical DAILY Branch gabapentin 2022-0 Yes [id number] 300mg Take 1 [facility] 300 mg 1-19 capsule by ity of capsule 00:00: mouth in [place] 00 the Medical morning Branch and 1 capsule at noon and 1 capsule in the evening. busPIRone 2022-0 Yes [id number] TAKE 1/2 [facility] 15 mg 1-19 TO 1 ity of tablet 00:00: TABLET BY [place] 00 MOUTH Medical TWICE Branch DAILY NEEDED FOR ANXIETY carBAMazepi 2022-0 Yes [id number] 200mg Take 2 [facility] ne 100 mg 1-19 tablets by ity of 12 hr 00:00: mouth at [facility] 00 bedtime. Medical Branch DULoxetine 2022-0 Yes [id number] 60mg Take 1 [facility] 60 mg 1-19 capsule by ity of capsule 00:00: mouth [place] [address] every Medical morning. Branch furosemide 2022-0 Yes [id number] TAKE 1 [facility] 40 mg 1-19 TABLET BY ity of tablet 00:00: MOUTH [place] 00 EVERY Medical MORNING Branch AND EVERY EVENING levothyroxi 2022-0 Yes [id number] 175ug Take 1 [facility] ne 175 mcg 1-19 tablet by ity of tablet 00:00: mouth [place] [address] every Medical morning. Branch KCL 10 mEq 2022-0 Yes [id number] 20meq Take 2 [facility] tablet 1-19 tablets by ity of 00:00: mouth in [place] 00 the Medical morning Branch and 2 tablets in the evening. Only take when taking lasix omeprazole 2022-0 Yes [id number] 40mg Take 1 [facility] 40 mg 1-19 capsule by ity of capsule 00:00: mouth in [place] [address] the Medical morning. Branch ondansetron 2022-0 Yes [id number] TAKE 1 [facility] 4 mg tablet 1-19 TABLET BY ity of 00:00: MOUTH [place] [address] EVERY 8 Medical HOURS Branch NEEDED FOR NAUSEA OR VOMITING QUEtiapine 2022-0 Yes [id number] 400mg Take 1 [facility] 400 mg 1-19 tablet by ity of tablet 00:00: mouth at [place] [address] bedtime. Medical ADDITIONAL Branch REFILLS PER PSYCHIATRY rosuvastati 2022-0 Yes [id number] 20mg Take 1 [facility] n 20 mg 1-19 tablet by ity of tablet 00:00: mouth at [place] [address] bedtime. Medical Branch metoprolol 2022-0 Yes [id number] TAKE 1/2 [facility] tartrate 25 1-19 TABLET BY ity of mg tablet 00:00: MOUTH [place] [address] TWICE Medical DAILY Branch gabapentin 2022-0 Yes [id number] 300mg Take 1 [facility] 300 mg 1-19 capsule by ity of capsule 00:00: mouth in [place] 00 the Medical morning Branch and 1 capsule at noon and 1 capsule in the evening. busPIRone 2022-0 Yes [id number] TAKE 1/2 [facility] 15 mg 1-19 TO 1 ity of tablet 00:00: TABLET BY [place] [address] MOUTH Medical TWICE Branch DAILY NEEDED FOR ANXIETY carBAMazepi 2022-0 Yes [id number] 200mg Take 2 [facility] ne 100 mg 1-19 tablets by ity of 12 hr 00:00: mouth at [facility] 00 bedtime. Medical Branch DULoxetine 2022-0 Yes [id number] 60mg Take 1 [facility] 60 mg 1-19 capsule by ity of capsule 00:00: mouth [place] 00 every Medical morning. Branch furosemide 2022-0 Yes [id number] TAKE 1 [facility] 40 mg 1-19 TABLET BY ity of tablet 00:00: MOUTH [place] 00 EVERY Medical MORNING Branch AND EVERY EVENING levothyroxi 2022-0 Yes [id number] 175ug Take 1 [facility] ne 175 mcg 1-19 tablet by ity of tablet 00:00: mouth [place] [address] every Medical morning. Branch KCL 10 mEq 2022-0 Yes [id number] 20meq Take 2 [facility] tablet 1-19 tablets by ity of 00:00: mouth in [place] 00 the Medical morning Branch and 2 tablets in the evening. Only take when taking lasix omeprazole 2022-0 Yes [id number] 40mg Take 1 [facility] 40 mg 1-19 capsule by ity of capsule 00:00: mouth in [place] [address] the Medical morning. Branch ondansetron 2022-0 Yes [id number] TAKE 1 [facility] 4 mg tablet 1-19 TABLET BY ity of 00:00: MOUTH [place] [address] EVERY 8 Medical HOURS Branch NEEDED FOR NAUSEA OR VOMITING QUEtiapine 2022-0 Yes [id number] 400mg Take 1 [facility] 400 mg 1-19 tablet by ity of tablet 00:00: mouth at [place] [address] bedtime. Medical ADDITIONAL Branch REFILLS PER PSYCHIATRY rosuvastati 2022-0 Yes [id number] 20mg Take 1 [facility] n 20 mg 1-19 tablet by ity of tablet 00:00: mouth at [place] [address] bedtime. Medical Branch metoprolol 2022-0 Yes [id number] TAKE 1/2 [facility] tartrate 25 1-19 TABLET BY ity of mg tablet 00:00: MOUTH [place] 00 TWICE Medical DAILY Branch gabapentin 2022-0 Yes [id number] 300mg Take 1 [facility] 300 mg 1-19 capsule by ity of capsule 00:00: mouth in [place] 00 the Medical morning Branch and 1 capsule at noon and 1 capsule in the evening. busPIRone 2022-0 Yes [id number] TAKE 1/2 [facility] 15 mg 1-19 TO 1 ity of tablet 00:00: TABLET BY [place] 00 MOUTH Medical TWICE Branch DAILY NEEDED FOR ANXIETY carBAMazepi 2022-0 Yes [id number] 200mg Take 2 [facility] ne 100 mg 1-19 tablets by ity of 12 hr 00:00: mouth at [place] [address] bedtime. Medical Branch DULoxetine 2022-0 Yes [id number] 60mg Take 1 [facility] 60 mg 1-19 capsule by ity of capsule 00:00: mouth [place] 00 every Medical morning. Branch furosemide 2022-0 Yes [id number] TAKE 1 [facility] 40 mg 1-19 TABLET BY ity of tablet 00:00: MOUTH [place] 00 EVERY Medical MORNING Branch AND EVERY EVENING levothyroxi 2022-0 Yes [id number] 175ug Take 1 [facility] ne 175 mcg 1-19 tablet by ity of tablet 00:00: mouth [place] 00 every Medical morning. Branch KCL 10 mEq 2022-0 Yes [id number] 20meq Take 2 [facility] tablet 1-19 tablets by ity of 00:00: mouth in [place] 00 the Medical morning Branch and 2 tablets in the evening. Only take when taking lasix omeprazole 0 Yes [id number] 40mg Take 1 [facility] 40 mg 1-19 capsule by ity of capsule 00:00: mouth in [place] 00 the Medical morning. Branch ondansetron 0 Yes [id number] TAKE 1 [facility] 4 mg tablet 1-19 TABLET BY ity of 00:00: MOUTH [place] 00 EVERY 8 Medical HOURS Branch NEEDED FOR NAUSEA OR VOMITING QUEtiapine 0 Yes [id number] 400mg Take 1 [facility] 400 mg 1-19 tablet by ity of tablet 00:00: mouth at [place] [address] bedtime. Medical ADDITIONAL Branch REFILLS PER PSYCHIATRY rosuvastati 0 Yes [id number] 20mg Take 1 [facility] n 20 mg 1-19 tablet by ity of tablet 00:00: mouth at [place] [address] bedtime. Medical Branch metoprolol 2022-0 Yes [id number] TAKE 1/2 [facility] tartrate 25 1-19 TABLET BY ity of mg tablet 00:00: MOUTH [place] 00 TWICE Medical DAILY Branch gabapentin 2022-0 Yes [id number] 300mg Take 1 [facility] 300 mg 1-19 capsule by ity of capsule 00:00: mouth in [place] 00 the Medical morning Branch and 1 capsule at noon and 1 capsule in the evening. busPIRone 2022-0 Yes [id number] TAKE 1/2 [facility] 15 mg 1-19 TO 1 ity of tablet 00:00: TABLET BY [place] [address] MOUTH Medical TWICE Branch DAILY NEEDED FOR ANXIETY carBAMazepi 2022-0 Yes [id number] 200mg Take 2 [facility] ne 100 mg 1-19 tablets by [facility] of 12 hr 00:00: mouth at [facility] 00 bedtime. Medical Branch DULoxetine 2022-0 Yes [id number] 60mg Take 1 [facility] 60 mg 1-19 capsule by it[facility] of capsule 00:00: mouth [place] [address] every Medical morning. Branch furosemide 2022-0 Yes [id number] TAKE 1 [facility] 40 mg 1-19 TABLET BY ity of tablet 00:00: MOUTH [place] 00 EVERY Medical MORNING Branch AND EVERY EVENING levothyroxi 2022-0 Yes [id number] 175ug Take 1 [facility] ne 175 mcg 1-19 tablet by ity of tablet 00:00: mouth [place] [address] every Medical morning. Branch KCL 10 mEq 2022-0 Yes [id number] 20meq Take 2 [facility] tablet 1-19 tablets by ity of 00:00: mouth in [place] 00 the Medical morning Branch and 2 tablets in the evening. Only take when taking lasix omeprazole 2022-0 Yes [id number] 40mg Take 1 [facility] 40 mg 1-19 capsule by it[facility] of capsule 00:00: mouth in [place] [address] the Medical morning. Branch ondansetron 2022-0 Yes [id number] TAKE 1 [facility] 4 mg tablet 1-19 TABLET BY ity of 00:00: MOUTH [place] 00 EVERY 8 Medical HOURS Branch NEEDED FOR NAUSEA OR VOMITING QUEtiapine 2022-0 Yes [id number] 400mg Take 1 [facility] 400 mg 1-19 tablet by it[facility] of tablet 00:00: mouth at [place] [address] bedtime. Medical ADDITIONAL Branch REFILLS PER PSYCHIATRY rosuvastati 2022-0 Yes [id number] 20mg Take 1 [facility] n 20 mg 1-19 tablet by it[facility] of tablet 00:00: mouth at [place] [address] bedtime. Medical Branch metoprolol 2022-0 Yes [id number] TAKE 1/2 [facility] tartrate 25 1-19 TABLET BY ity of mg tablet 00:00: MOUTH [place] [address] TWICE Medical DAILY Branch gabapentin 2022-0 Yes [id number] 300mg Take 1 [facility] 300 mg 1-19 capsule by it[facility] of capsule 00:00: mouth in [place] 00 the Medical morning Branch and 1 capsule at noon and 1 capsule in the evening. busPIRone 2022-0 Yes [id number] TAKE 1/2 [facility] 15 mg 1-19 TO 1 ity of tablet 00:00: TABLET BY [place] [address] MOUTH Medical TWICE Branch DAILY NEEDED FOR ANXIETY carBAMazepi 2022-0 Yes [id number] 200mg Take 2 [facility] ne 100 mg 1-19 tablets by ity of 12 hr 00:00: mouth at [facility] 00 bedtime. Medical Branch DULoxetine 2022-0 Yes [id number] 60mg Take 1 [facility] 60 mg 1-19 capsule by it[facility] of capsule 00:00: mouth [place] 00 every Medical morning. Branch furosemide 2022-0 Yes [id number] TAKE 1 [facility] 40 mg 1-19 TABLET BY ity of tablet 00:00: MOUTH [place] 00 EVERY Medical MORNING Branch AND EVERY EVENING levothyroxi 2022-0 Yes [id number] 175ug Take 1 [facility] ne 175 mcg 1-19 tablet by ity of tablet 00:00: mouth [place] [address] every Medical morning. Branch KCL 10 mEq 2022-0 Yes [id number] 20meq Take 2 [facility] tablet 1-19 tablets by ity of 00:00: mouth in [place] 00 the Medical morning Branch and 2 tablets in the evening. Only take when taking lasix omeprazole 2022-0 Yes [id number] 40mg Take 1 [facility] 40 mg 1-19 capsule by it[facility] of capsule 00:00: mouth in [place] 00 the Medical morning. Branch ondansetron 0 Yes [id number] TAKE 1 [facility] 4 mg tablet 1-19 TABLET BY ity of 00:00: MOUTH [place] 00 EVERY 8 Medical HOURS Branch NEEDED FOR NAUSEA OR VOMITING QUEtiapine 2022-0 Yes [id number] 400mg Take 1 [facility] 400 mg 1-19 tablet by it[facility] of tablet 00:00: mouth at [place] [address] bedtime. Medical ADDITIONAL Branch REFILLS PER PSYCHIATRY rosuvastati 2022-0 Yes [id number] 20mg Take 1 [facility] n 20 mg 1-19 tablet by it[facility] of tablet 00:00: mouth at [place] [address] bedtime. Medical Branch metoprolol 2022-0 Yes [id number] TAKE 1/2 [facility] tartrate 25 1-19 TABLET BY ity of mg tablet 00:00: MOUTH [place] 00 TWICE Medical DAILY Branch gabapentin 2022-0 Yes [id number] 300mg Take 1 [facility] 300 mg 1-19 capsule by it[facility] of capsule 00:00: mouth in [place] 00 the Medical morning Branch and 1 capsule at noon and 1 capsule in the evening. busPIRone 2022-0 Yes [id number] TAKE 1/2 [facility] 15 mg 1-19 TO 1 ity of tablet 00:00: TABLET BY [place] 00 MOUTH Medical TWICE Branch DAILY NEEDED FOR ANXIETY carBAMazepi 2022-0 Yes [id number] 200mg Take 2 [facility] ne 100 mg 1-19 tablets by it[facility] of 12 hr 00:00: mouth at [facility] 00 bedtime. Medical Branch DULoxetine 2022-0 Yes [id number] 60mg Take 1 [facility] 60 mg 1-19 capsule by ity of capsule 00:00: mouth [place] [address] every Medical morning. Branch furosemide 2022-0 Yes [id number] TAKE 1 [facility] 40 mg 1-19 TABLET BY ity of tablet 00:00: MOUTH [place] 00 EVERY Medical MORNING Branch AND EVERY EVENING levothyroxi 2022-0 Yes [id number] 175ug Take 1 [facility] ne 175 mcg 1-19 tablet by ity of tablet 00:00: mouth [place] [address] every Medical morning. Branch KCL 10 mEq 2022-0 Yes [id number] 20meq Take 2 [facility] tablet 1-19 tablets by ity of 00:00: mouth in [place] 00 the Medical morning Branch and 2 tablets in the evening. Only take when taking lasix omeprazole 2022-0 Yes [id number] 40mg Take 1 [facility] 40 mg 1-19 capsule by ity of capsule 00:00: mouth in [place] [address] the Medical morning. Branch ondansetron 2022-0 Yes [id number] TAKE 1 [facility] 4 mg tablet 1-19 TABLET BY ity of 00:00: MOUTH [place] 00 EVERY 8 Medical HOURS Branch NEEDED FOR NAUSEA OR VOMITING QUEtiapine 2022-0 Yes [id number] 400mg Take 1 [facility] 400 mg 1-19 tablet by ity of tablet 00:00: mouth at [place] [address] bedtime. Medical ADDITIONAL Branch REFILLS PER PSYCHIATRY rosuvastati 2022-0 Yes [id number] 20mg Take 1 [facility] n 20 mg 1-19 tablet by it[facility] of tablet 00:00: mouth at [place] [address] bedtime. Medical Branch metoprolol 2022-0 Yes [id number] TAKE 1/2 [facility] tartrate 25 1-19 TABLET BY ity of mg tablet 00:00: MOUTH [place] 00 TWICE Medical DAILY Branch gabapentin 2022-0 Yes [id number] 300mg Take 1 [facility] 300 mg 1-19 capsule by ity of capsule 00:00: mouth in [place] 00 the Medical morning Branch and 1 capsule at noon and 1 capsule in the evening. busPIRone 2022-0 Yes [id number] TAKE 1/2 [facility] 15 mg 1-19 TO 1 ity of tablet 00:00: TABLET BY [place] 00 MOUTH Medical TWICE Branch DAILY NEEDED FOR ANXIETY carBAMazepi 2022-0 Yes [id number] 200mg Take 2 [facility] ne 100 mg 1-19 tablets by it[facility] of 12 hr 00:00: mouth at [facility] 00 bedtime. Medical Branch DULoxetine 2022-0 Yes [id number] 60mg Take 1 [facility] 60 mg 1-19 capsule by ity of capsule 00:00: mouth [place] 00 every Medical morning. Branch furosemide 2022-0 Yes [id number] TAKE 1 [facility] 40 mg 1-19 TABLET BY ity of tablet 00:00: MOUTH [place] 00 EVERY Medical MORNING Branch AND EVERY EVENING levothyroxi 2022-0 Yes [id number] 175ug Take 1 [facility] ne 175 mcg 1-19 tablet by ity of tablet 00:00: mouth [place] 00 every Medical morning. Branch KCL 10 mEq 2022-0 Yes [id number] 20meq Take 2 [facility] tablet 1-19 tablets by ity of 00:00: mouth in [place] 00 the Medical morning Branch and 2 tablets in the evening. Only take when taking lasix omeprazole 0 Yes [id number] 40mg Take 1 [facility] 40 mg 1-19 capsule by ity of capsule 00:00: mouth in [place] 00 the Medical morning. Branch ondansetron Yes [id number] TAKE 1 [facility] 4 mg tablet 1-19 TABLET BY ity of 00:00: MOUTH [place] 00 EVERY 8 Medical HOURS Branch NEEDED FOR NAUSEA OR VOMITING QUEtiapine 2022-0 Yes [id number] 400mg Take 1 [facility] 400 mg 1-19 tablet by ity of tablet 00:00: mouth at [place] [address] bedtime. Medical ADDITIONAL Branch REFILLS PER PSYCHIATRY rosuvastati 2022-0 Yes [id number] 20mg Take 1 [facility] n 20 mg 1-19 tablet by ity of tablet 00:00: mouth at [place] [address] bedtime. Medical Branch metoprolol 2022-0 Yes [id number] TAKE 1/2 [facility] tartrate 25 1-19 TABLET BY ity of mg tablet 00:00: MOUTH [place] 00 TWICE Medical DAILY Branch gabapentin 2022-0 Yes [id number] 300mg Take 1 [facility] 300 mg 1-19 capsule by ity of capsule 00:00: mouth in [place] 00 the Medical morning Branch and 1 capsule at noon and 1 capsule in the evening. busPIRone Yes [id number] TAKE 1/2 [facility] 15 mg 1-19 TO 1 ity of tablet 00:00: TABLET BY [place] 00 MOUTH Medical TWICE Branch DAILY NEEDED FOR ANXIETY carBAMazepi 2022-0 Yes [id number] 200mg Take 2 [facility] ne 100 mg 1-19 tablets by ity of 12 hr 00:00: mouth at [facility] 00 bedtime. Medical Branch DULoxetine 2022-0 Yes [id number] 60mg Take 1 [facility] 60 mg 1-19 capsule by ity of capsule 00:00: mouth [place] [address] every Medical morning. Branch furosemide 2022-0 Yes [id number] TAKE 1 [facility] 40 mg 1-19 TABLET BY ity of tablet 00:00: MOUTH [place] 00 EVERY Medical MORNING Branch AND EVERY EVENING levothyroxi 2022-0 Yes [id number] 175ug Take 1 [facility] ne 175 mcg 1-19 tablet by ity of tablet 00:00: mouth [place] [address] every Medical morning. Branch KCL 10 mEq 2022-0 Yes [id number] 20meq Take 2 [facility] tablet 1-19 tablets by ity of 00:00: mouth in [place] 00 the Medical morning Branch and 2 tablets in the evening. Only take when taking lasix omeprazole 0 Yes [id number] 40mg Take 1 [facility] 40 mg 1-19 capsule by ity of capsule 00:00: mouth in [place] 00 the Medical morning. Branch ondansetron 2022-0 Yes [id number] TAKE 1 [facility] 4 mg tablet 1-19 TABLET BY ity of 00:00: MOUTH [place] [address] EVERY 8 Medical HOURS Branch NEEDED FOR NAUSEA OR VOMITING QUEtiapine 2022-0 Yes [id number] 400mg Take 1 [facility] 400 mg 1-19 tablet by ity of tablet 00:00: mouth at [place] [address] bedtime. Medical ADDITIONAL Branch REFILLS PER PSYCHIATRY rosuvastati 2022-0 Yes [id number] 20mg Take 1 [facility] n 20 mg 1-19 tablet by ity of tablet 00:00: mouth at [place] [address] bedtime. Medical Branch metoprolol 2022-0 Yes [id number] TAKE 1/2 [facility] tartrate 25 1-19 TABLET BY ity of mg tablet 00:00: MOUTH [place] [address] TWICE Medical DAILY Branch gabapentin 2022-0 Yes [id number] 300mg Take 1 [facility] 300 mg 1-19 capsule by ity of capsule 00:00: mouth in [place] 00 the Medical morning Branch and 1 capsule at noon and 1 capsule in the evening. busPIRone Yes [id number] TAKE 1/2 [facility] 15 mg 1-19 TO 1 ity of tablet 00:00: TABLET BY [place] 00 MOUTH Medical TWICE Branch DAILY NEEDED FOR ANXIETY carBAMazepi 0 Yes [id number] 200mg Take 2 [facility] ne 100 mg 1-19 tablets by ity of 12 hr 00:00: mouth at [facility] 00 bedtime. Medical Branch DULoxetine 0 Yes [id number] 60mg Take 1 [facility] 60 mg 1-19 capsule by ity of capsule 00:00: mouth [place] 00 every Medical morning. Branch furosemide Yes [id number] TAKE 1 [facility] 40 mg 1-19 TABLET BY ity of tablet 00:00: MOUTH [place] 00 EVERY Medical MORNING Branch AND EVERY EVENING levothyroxi 2022-0 Yes [id number] 175ug Take 1 [facility] ne 175 mcg 1-19 tablet by ity of tablet 00:00: mouth [place] 00 every Medical morning. Branch KCL 10 mEq Yes [id number] 20meq Take 2 [facility] tablet 1-19 tablets by ity of 00:00: mouth in [place] 00 the Medical morning Branch and 2 tablets in the evening. Only take when taking lasix omeprazole Yes [id number] 40mg Take 1 [facility] 40 mg 1-19 capsule by ity of capsule 00:00: mouth in [place] 00 the Medical morning. Branch ondansetron Yes [id number] TAKE 1 [facility] 4 mg tablet 1-19 TABLET BY ity of 00:00: MOUTH [place] 00 EVERY 8 Medical HOURS Branch NEEDED FOR NAUSEA OR VOMITING QUEtiapine 0 Yes [id number] 400mg Take 1 [facility] 400 mg 1-19 tablet by ity of tablet 00:00: mouth at [place] [address] bedtime. Medical ADDITIONAL Branch REFILLS PER PSYCHIATRY rosuvastati 2022-0 Yes [id number] 20mg Take 1 [facility] n 20 mg 1-19 tablet by ity of tablet 00:00: mouth at [place] [address] bedtime. Medical Branch metoprolol 2022-0 Yes [id number] TAKE 1/2 [facility] tartrate 25 1-19 TABLET BY ity of mg tablet 00:00: MOUTH [place] 00 TWICE Medical DAILY Branch gabapentin 2022-0 Yes [id number] 300mg Take 1 [facility] 300 mg 1-19 capsule by ity of capsule 00:00: mouth in [place] 00 the Medical morning Branch and 1 capsule at noon and 1 capsule in the evening. busPIRone 0 Yes [id number] TAKE 1/2 [facility] 15 mg 1-19 TO 1 ity of tablet 00:00: TABLET BY [place] 00 MOUTH Medical TWICE Branch DAILY NEEDED FOR ANXIETY carBAMazepi 2022-0 Yes [id number] 200mg Take 2 [facility] ne 100 mg 1-19 tablets by ity of 12 hr 00:00: mouth at [facility] 00 bedtime. Medical Branch DULoxetine 0 Yes [id number] 60mg Take 1 [facility] 60 mg 1-19 capsule by ity of capsule 00:00: mouth [place] [address] every Medical morning. Branch furosemide 0 Yes [id number] TAKE 1 [facility] 40 mg 1-19 TABLET BY ity of tablet 00:00: MOUTH [place] 00 EVERY Medical MORNING Branch AND EVERY EVENING levothyroxi 2022-0 Yes [id number] 175ug Take 1 [facility] ne 175 mcg 1-19 tablet by ity of tablet 00:00: mouth [place] [address] every Medical morning. Branch KCL 10 mEq 0 Yes [id number] 20meq Take 2 [facility] tablet 1-19 tablets by ity of 00:00: mouth in [place] 00 the Medical morning Branch and 2 tablets in the evening. Only take when taking lasix omeprazole 0 Yes [id number] 40mg Take 1 [facility] 40 mg 1-19 capsule by ity of capsule 00:00: mouth in [place] [address] the Medical morning. Branch ondansetron Yes [id number] TAKE 1 [facility] 4 mg tablet 1-19 TABLET BY ity of 00:00: MOUTH [place] 00 EVERY 8 Medical HOURS Branch NEEDED FOR NAUSEA OR VOMITING QUEtiapine 2022-0 Yes [id number] 400mg Take 1 [facility] 400 mg 1-19 tablet by ity of tablet 00:00: mouth at [place] [address] bedtime. Medical ADDITIONAL Branch REFILLS PER PSYCHIATRY rosuvastati 2022-0 Yes [id number] 20mg Take 1 [facility] n 20 mg 1-19 tablet by ity of tablet 00:00: mouth at [place] [address] bedtime. Medical Branch metoprolol 2022-0 Yes [id number] TAKE 1/2 [facility] tartrate 25 1-19 TABLET BY ity of mg tablet 00:00: MOUTH [place] 00 TWICE Medical DAILY Branch gabapentin 2022-0 Yes [id number] 300mg Take 1 [facility] 300 mg 1-19 capsule by ity of capsule 00:00: mouth in [place] 00 the Medical morning Branch and 1 capsule at noon and 1 capsule in the evening. busPIRone 2022-0 Yes [id number] TAKE 1/2 [facility] 15 mg 1-19 TO 1 ity of tablet 00:00: TABLET BY [place] 00 MOUTH Medical TWICE Branch DAILY NEEDED FOR ANXIETY carBAMazepi 2022-0 Yes [id number] 200mg Take 2 [facility] ne 100 mg 1-19 tablets by ity of 12 hr 00:00: mouth at [facility] 00 bedtime. Medical Branch DULoxetine 0 Yes [id number] 60mg Take 1 [facility] 60 mg 1-19 capsule by ity of capsule 00:00: mouth [place] [address] every Medical morning. Branch furosemide 2022-0 Yes [id number] TAKE 1 [facility] 40 mg 1-19 TABLET BY ity of tablet 00:00: MOUTH [place] 00 EVERY Medical MORNING Branch AND EVERY EVENING levothyroxi 2022-0 Yes [id number] 175ug Take 1 [facility] ne 175 mcg 1-19 tablet by ity of tablet 00:00: mouth [place] [address] every Medical morning. Branch KCL 10 mEq 2022-0 Yes [id number] 20meq Take 2 [facility] tablet 1-19 tablets by ity of 00:00: mouth in [place] [address] the Medical morning Branch and 2 tablets in the evening. Only take when taking lasix omeprazole 2022-0 Yes [id number] 40mg Take 1 [facility] 40 mg 1-19 capsule by ity of capsule 00:00: mouth in [place] 00 the Medical morning. Branch ondansetron 0 Yes [id number] TAKE 1 [facility] 4 mg tablet 1-19 TABLET BY ity of 00:00: MOUTH [place] [address] EVERY 8 Medical HOURS Branch NEEDED FOR NAUSEA OR VOMITING QUEtiapine 2022-0 Yes [id number] 400mg Take 1 [facility] 400 mg 1-19 tablet by ity of tablet 00:00: mouth at [place] [address] bedtime. Medical ADDITIONAL Branch REFILLS PER PSYCHIATRY rosuvastati 2022-0 Yes [id number] 20mg Take 1 [facility] n 20 mg 1-19 tablet by ity of tablet 00:00: mouth at [place] [address] bedtime. Medical Branch metoprolol 2022-0 Yes [id number] TAKE 1/2 [facility] tartrate 25 1-19 TABLET BY ity of mg tablet 00:00: MOUTH [place] 00 TWICE Medical DAILY Branch gabapentin 2022-0 Yes [id number] 300mg Take 1 [facility] 300 mg 1-19 capsule by ity of capsule 00:00: mouth in [place] 00 the Medical morning Branch and 1 capsule at noon and 1 capsule in the evening. busPIRone 2022-0 Yes [id number] TAKE 1/2 [facility] 15 mg 1-19 TO 1 ity of tablet 00:00: TABLET BY [place] 00 MOUTH Medical TWICE Branch DAILY NEEDED FOR ANXIETY carBAMazepi 2022-0 Yes [id number] 200mg Take 2 [facility] ne 100 mg 1-19 tablets by ity of 12 hr 00:00: mouth at [facility] 00 bedtime. Medical Branch DULoxetine 2022-0 Yes [id number] 60mg Take 1 [facility] 60 mg 1-19 capsule by ity of capsule 00:00: mouth [place] [address] every Medical morning. Branch furosemide 2022-0 Yes [id number] TAKE 1 [facility] 40 mg 1-19 TABLET BY ity of tablet 00:00: MOUTH [place] 00 EVERY Medical MORNING Branch AND EVERY EVENING levothyroxi 2022-0 Yes [id number] 175ug Take 1 [facility] ne 175 mcg 1-19 tablet by ity of tablet 00:00: mouth [place] 00 every Medical morning. Branch KCL 10 mEq 2022-0 Yes [id number] 20meq Take 2 [facility] tablet 1-19 tablets by ity of 00:00: mouth in [place] 00 the Medical morning Branch and 2 tablets in the evening. Only take when taking lasix omeprazole 2022-0 Yes [id number] 40mg Take 1 [facility] 40 mg 1-19 capsule by ity of capsule 00:00: mouth in [place] [address] the Medical morning. Branch ondansetron 2022-0 Yes [id number] TAKE 1 [facility] 4 mg tablet 1-19 TABLET BY ity of 00:00: MOUTH [place] 00 EVERY 8 Medical HOURS Branch NEEDED FOR NAUSEA OR VOMITING QUEtiapine 2022-0 Yes [id number] 400mg Take 1 [facility] 400 mg 1-19 tablet by ity of tablet 00:00: mouth at [place] [address] bedtime. Medical ADDITIONAL Branch REFILLS PER PSYCHIATRY rosuvastati 2022-0 Yes [id number] 20mg Take 1 [facility] n 20 mg 1-19 tablet by ity of tablet 00:00: mouth at [place] [address] bedtime. Medical Branch metoprolol 2022-0 Yes [id number] TAKE 1/2 [facility] tartrate 25 1-19 TABLET BY ity of mg tablet 00:00: MOUTH [place] [address] TWICE Medical DAILY Branch gabapentin 2022-0 Yes [id number] 300mg Take 1 [facility] 300 mg 1-19 capsule by ity of capsule 00:00: mouth in [place] 00 the Medical morning Branch and 1 capsule at noon and 1 capsule in the evening. busPIRone 2022-0 Yes [id number] TAKE 1/2 [facility] 15 mg 1-19 TO 1 ity of tablet 00:00: TABLET BY [place] [address] MOUTH Medical TWICE Branch DAILY NEEDED FOR ANXIETY carBAMazepi 2022-0 Yes [id number] 200mg Take 2 [facility] ne 100 mg 1-19 tablets by ity of 12 hr 00:00: mouth at [place] [address] bedtime. Medical Branch DULoxetine 2022-0 Yes [id number] 60mg Take 1 [facility] 60 mg 1-19 capsule by ity of capsule 00:00: mouth [place] [address] every Medical morning. Branch furosemide 2022-0 Yes [id number] TAKE 1 [facility] 40 mg 1-19 TABLET BY ity of tablet 00:00: MOUTH [place] 00 EVERY Medical MORNING Branch AND EVERY EVENING levothyroxi 2022-0 Yes [id number] 175ug Take 1 [facility] ne 175 mcg 1-19 tablet by ity of tablet 00:00: mouth [place] [address] every Medical morning. Branch KCL 10 mEq 2022-0 Yes [id number] 20meq Take 2 [facility] tablet 1-19 tablets by ity of 00:00: mouth in [place] 00 the Medical morning Branch and 2 tablets in the evening. Only take when taking lasix omeprazole 2022-0 Yes [id number] 40mg Take 1 [facility] 40 mg 1-19 capsule by ity of capsule 00:00: mouth in [place] [address] the Medical morning. Branch ondansetron 2022-0 Yes [id number] TAKE 1 [facility] 4 mg tablet 1-19 TABLET BY ity of 00:00: MOUTH [place] 00 EVERY 8 Medical HOURS Branch NEEDED FOR NAUSEA OR VOMITING QUEtiapine 2022-0 Yes [id number] 400mg Take 1 [facility] 400 mg 1-19 tablet by ity of tablet 00:00: mouth at [place] [address] bedtime. Medical ADDITIONAL Branch REFILLS PER PSYCHIATRY rosuvastati 2022-0 Yes [id number] 20mg Take 1 [facility] n 20 mg 1-19 tablet by ity of tablet 00:00: mouth at [place] [address] bedtime. Medical Branch metoprolol 2022-0 Yes [id number] TAKE 1/2 [facility] tartrate 25 1-19 TABLET BY ity of mg tablet 00:00: MOUTH [place] [address] TWICE Medical DAILY Branch gabapentin 2022-0 Yes [id number] 300mg Take 1 [facility] 300 mg 1-19 capsule by ity of capsule 00:00: mouth in [place] 00 the Medical morning Branch and 1 capsule at noon and 1 capsule in the evening. busPIRone 2022-0 Yes [id number] TAKE 1/2 [facility] 15 mg 1-19 TO 1 ity of tablet 00:00: TABLET BY [place] [address] MOUTH Medical TWICE Branch DAILY NEEDED FOR ANXIETY carBAMazepi 2022-0 Yes [id number] 200mg Take 2 [facility] ne 100 mg 1-19 tablets by ity of 12 hr 00:00: mouth at [place] [address] bedtime. Medical Branch DULoxetine 2022-0 Yes [id number] 60mg Take 1 [facility] 60 mg 1-19 capsule by ity of capsule 00:00: mouth [place] [address] every Medical morning. Branch furosemide 2022-0 Yes [id number] TAKE 1 [facility] 40 mg 1-19 TABLET BY ity of tablet 00:00: MOUTH [place] 00 EVERY Medical MORNING Branch AND EVERY EVENING levothyroxi 2022-0 Yes [id number] 175ug Take 1 [facility] ne 175 mcg 1-19 tablet by ity of tablet 00:00: mouth [place] [address] every Medical morning. Branch KCL 10 mEq 2022-0 Yes [id number] 20meq Take 2 [facility] tablet 1-19 tablets by ity of 00:00: mouth in [place] 00 the Medical morning Branch and 2 tablets in the evening. Only take when taking lasix omeprazole 2022-0 Yes [id number] 40mg Take 1 [facility] 40 mg 1-19 capsule by ity of capsule 00:00: mouth in [place] [address] the Medical morning. Branch ondansetron 2022-0 Yes [id number] TAKE 1 [facility] 4 mg tablet 1-19 TABLET BY ity of 00:00: MOUTH [place] [address] EVERY 8 Medical HOURS Branch NEEDED FOR NAUSEA OR VOMITING QUEtiapine 2022-0 Yes [id number] 400mg Take 1 [facility] 400 mg 1-19 tablet by ity of tablet 00:00: mouth at [place] [address] bedtime. Medical ADDITIONAL Branch REFILLS PER PSYCHIATRY rosuvastati 2022-0 Yes [id number] 20mg Take 1 [facility] n 20 mg 1-19 tablet by ity of tablet 00:00: mouth at [place] [address] bedtime. Medical Branch metoprolol 2022-0 Yes [id number] TAKE 1/2 [facility] tartrate 25 1-19 TABLET BY ity of mg tablet 00:00: MOUTH [place] 00 TWICE Medical DAILY Branch gabapentin 2022-0 Yes [id number] 300mg Take 1 [facility] 300 mg 1-19 capsule by ity of capsule 00:00: mouth in [place] 00 the Medical morning Branch and 1 capsule at noon and 1 capsule in the evening. busPIRone 2022-0 Yes [id number] TAKE 1/2 [facility] 15 mg 1-19 TO 1 ity of tablet 00:00: TABLET BY [place] 00 MOUTH Medical TWICE Branch DAILY NEEDED FOR ANXIETY carBAMazepi 2022-0 Yes [id number] 200mg Take 2 [facility] ne 100 mg 1-19 tablets by ity of 12 hr 00:00: mouth at [facility] 00 bedtime. Medical Branch DULoxetine 2022-0 Yes [id number] 60mg Take 1 [facility] 60 mg 1-19 capsule by ity of capsule 00:00: mouth [place] 00 every Medical morning. Branch furosemide 2022-0 Yes [id number] TAKE 1 [facility] 40 mg 1-19 TABLET BY ity of tablet 00:00: MOUTH [place] 00 EVERY Medical MORNING Branch AND EVERY EVENING levothyroxi 2022-0 Yes [id number] 175ug Take 1 [facility] ne 175 mcg 1-19 tablet by ity of tablet 00:00: mouth [place] 00 every Medical morning. Branch KCL 10 mEq 2022-0 Yes [id number] 20meq Take 2 [facility] tablet 1-19 tablets by ity of 00:00: mouth in [place] 00 the Medical morning Branch and 2 tablets in the evening. Only take when taking lasix omeprazole 2022-0 Yes [id number] 40mg Take 1 [facility] 40 mg 1-19 capsule by ity of capsule 00:00: mouth in [place] 00 the Medical morning. Branch ondansetron 2022-0 Yes [id number] TAKE 1 [facility] 4 mg tablet 1-19 TABLET BY ity of 00:00: MOUTH [place] 00 EVERY 8 Medical HOURS Branch NEEDED FOR NAUSEA OR VOMITING QUEtiapine 2022-0 Yes [id number] 400mg Take 1 [facility] 400 mg 1-19 tablet by ity of tablet 00:00: mouth at [place] [address] bedtime. Medical ADDITIONAL Branch REFILLS PER PSYCHIATRY rosuvastati 2022-0 Yes [id number] 20mg Take 1 [facility] n 20 mg 1-19 tablet by ity of tablet 00:00: mouth at [place] [address] bedtime. Medical Branch metoprolol 2022-0 Yes [id number] TAKE 1/2 [facility] tartrate 25 1-19 TABLET BY ity of mg tablet 00:00: MOUTH [place] 00 TWICE Medical DAILY Branch gabapentin 2022-0 Yes [id number] 300mg Take 1 [facility] 300 mg 1-19 capsule by ity of capsule 00:00: mouth in [place] 00 the Medical morning Branch and 1 capsule at noon and 1 capsule in the evening. busPIRone 2022-0 Yes [id number] TAKE 1/2 [facility] 15 mg 1-19 TO 1 ity of tablet 00:00: TABLET BY [place] 00 MOUTH Medical TWICE Branch DAILY NEEDED FOR ANXIETY carBAMazepi 2022-0 Yes [id number] 200mg Take 2 [facility] ne 100 mg 1-19 tablets by ity of 12 hr 00:00: mouth at [facility] 00 bedtime. Medical Branch DULoxetine 2022-0 Yes [id number] 60mg Take 1 [facility] 60 mg 1-19 capsule by ity of capsule 00:00: mouth [place] 00 every Medical morning. Branch furosemide 2022-0 Yes [id number] TAKE 1 [facility] 40 mg 1-19 TABLET BY ity of tablet 00:00: MOUTH [place] 00 EVERY Medical MORNING Branch AND EVERY EVENING levothyroxi 2022-0 Yes [id number] 175ug Take 1 [facility] ne 175 mcg 1-19 tablet by ity of tablet 00:00: mouth [place] 00 every Medical morning. Branch KCL 10 mEq 2022-0 Yes [id number] 20meq Take 2 [facility] tablet 1-19 tablets by ity of 00:00: mouth in [place] 00 the Medical morning Branch and 2 tablets in the evening. Only take when taking lasix omeprazole 2022-0 Yes [id number] 40mg Take 1 [facility] 40 mg 1-19 capsule by [facility] capsule 00:00: mouth in [place] 00 the Medical morning. Branch ondansetron 2022-0 Yes [id number] TAKE 1 [facility] 4 mg tablet 1-19 TABLET BY [facility] of 00:00: MOUTH [place] 00 EVERY 8 Medical HOURS Branch NEEDED FOR NAUSEA OR VOMITING QUEtiapine 2022-0 Yes [id number] 400mg Take 1 [facility] 400 mg 1-19 tablet by [facility] tablet 00:00: mouth at [place] [address] bedtime. Medical ADDITIONAL Branch REFILLS PER PSYCHIATRY rosuvastati 2022-0 Yes [id number] 20mg Take 1 [facility] n 20 mg 1-19 tablet by [facility] tablet 00:00: mouth at [place] [address] bedtime. Medical Branch metoprolol 2022-0 Yes [id number] TAKE 1/2 [facility] tartrate 25 1-19 TABLET BY [facility] mg tablet 00:00: MOUTH [place] 00 TWICE Medical DAILY Branch gabapentin 2022-0 Yes [id number] 300mg Take 1 [facility] 300 mg 1-19 capsule by [facility] capsule 00:00: mouth in [place] 00 the Medical morning Branch and 1 capsule at noon and 1 capsule in the evening. busPIRone 2022-0 Yes [id number] TAKE 1/2 [facility] 15 mg 1-19 TO 1 [facility] of tablet 00:00: TABLET BY [place] 00 MOUTH Medical TWICE Branch DAILY NEEDED FOR ANXIETY carBAMazepi 2022-0 Yes [id number] 200mg Take 2 [facility] ne 100 mg 1-19 tablets by [facility] of 12 hr 00:00: mouth at [facility] 00 bedtime. Medical Branch DULoxetine 2022-0 Yes [id number] 60mg Take 1 [facility] 60 mg 1-19 capsule by [facility] of capsule 00:00: mouth [place] 00 every Medical morning. Branch furosemide 2022-0 Yes [id number] TAKE 1 [facility] 40 mg 1-19 TABLET BY it[facility] of tablet 00:00: MOUTH [place] 00 EVERY Medical MORNING Branch AND EVERY EVENING levothyroxi 2022-0 Yes [id number] 175ug Take 1 [facility] ne 175 mcg 1-19 tablet by [facility] of tablet 00:00: mouth [place] [address] every Medical morning. Branch KCL 10 mEq 2022-0 Yes [id number] 20meq Take 2 [facility] tablet 1-19 tablets by it[facility] of 00:00: mouth in [place] 00 the Medical morning Branch and 2 tablets in the evening. Only take when taking lasix omeprazole 2022-0 Yes [id number] 40mg Take 1 [facility] 40 mg 1-19 capsule by [facility] of capsule 00:00: mouth in [place] 00 the Medical morning. Branch ondansetron 2022-0 Yes [id number] TAKE 1 [facility] 4 mg tablet 1-19 TABLET BY [facility] of 00:00: MOUTH [place] 00 EVERY 8 Medical HOURS Branch NEEDED FOR NAUSEA OR VOMITING QUEtiapine 2022-0 Yes [id number] 400mg Take 1 [facility] 400 mg 1-19 tablet by [facility] of tablet 00:00: mouth at [place] [address] bedtime. Medical ADDITIONAL Branch REFILLS PER PSYCHIATRY rosuvastati 2022-0 Yes [id number] 20mg Take 1 [facility] n 20 mg 1-19 tablet by [facility] of tablet 00:00: mouth at [place] [address] bedtime. Medical Branch metoprolol 2022-0 Yes [id number] TAKE 1/2 [facility] tartrate 25 1-19 TABLET BY it[facility] of mg tablet 00:00: MOUTH [place] 00 TWICE Medical DAILY Branch gabapentin 2022-0 Yes [id number] 300mg Take 1 [facility] 300 mg 1-19 capsule by [facility] of capsule 00:00: mouth in [place] 00 the Medical morning Branch and 1 capsule at noon and 1 capsule in the evening. busPIRone 2022-0 Yes [id number] TAKE 1/2 [facility] 15 mg 1-19 TO 1 it[facility] of tablet 00:00: TABLET BY [place] 00 MOUTH Medical TWICE Branch DAILY NEEDED FOR ANXIETY carBAMazepi 2022-0 Yes [id number] 200mg Take 2 [facility] ne 100 mg 1-19 tablets by it[facility] of 12 hr 00:00: mouth at [facility] 00 bedtime. Medical Branch DULoxetine 2022-0 Yes [id number] 60mg Take 1 [facility] 60 mg 1-19 capsule by [facility] of capsule 00:00: mouth [place] 00 every Medical morning. Branch furosemide 2022-0 Yes [id number] TAKE 1 [facility] 40 mg 1-19 TABLET BY it[facility] of tablet 00:00: MOUTH [place] 00 EVERY Medical MORNING Branch AND EVERY EVENING levothyroxi 2022-0 Yes [id number] 175ug Take 1 [facility] ne 175 mcg 1-19 tablet by [facility] of tablet 00:00: mouth [place] 00 every Medical morning. Branch KCL 10 mEq 2022-0 Yes [id number] 20meq Take 2 [facility] tablet 1-19 tablets by it[facility] of 00:00: mouth in [place] 00 the Medical morning Branch and 2 tablets in the evening. Only take when taking lasix omeprazole 2022-0 Yes [id number] 40mg Take 1 [facility] 40 mg 1-19 capsule by [facility] of capsule 00:00: mouth in [place] 00 the Medical morning. Branch rosuvastati 2022-0 Yes [id number] 20mg Take 1 [facility] n 20 mg 1-19 tablet by [facility] of tablet 00:00: mouth at [place] [address] bedtime. Medical Branch metoprolol 2022-0 Yes [id number] TAKE 1/2 [facility] tartrate 25 1-19 TABLET BY ity of mg tablet 00:00: MOUTH [place] 00 TWICE Medical DAILY Branch gabapentin 2022-0 Yes [id number] 300mg Take 1 [facility] 300 mg 1-19 capsule by it[facility] of capsule 00:00: mouth in [place] 00 the Medical morning Branch and 1 capsule at noon and 1 capsule in the evening. busPIRone 2022-0 Yes [id number] TAKE 1/2 [facility] 15 mg 1-19 TO 1 ity of tablet 00:00: TABLET BY [place] 00 MOUTH Medical TWICE Branch DAILY NEEDED FOR ANXIETY carBAMazepi 2022-0 Yes [id number] 200mg Take 2 [facility] ne 100 mg 1-19 tablets by it[facility] of 12 hr 00:00: mouth at [facility] 00 bedtime. Medical Branch DULoxetine 2022-0 Yes [id number] 60mg Take 1 [facility] 60 mg 1-19 capsule by it[facility] of capsule 00:00: mouth [place] 00 every Medical morning. Branch furosemide 2022-0 Yes [id number] TAKE 1 [facility] 40 mg 1-19 TABLET BY it[facility] of tablet 00:00: MOUTH [place] 00 EVERY Medical MORNING Branch AND EVERY EVENING levothyroxi 2022-0 Yes [id number] 175ug Take 1 [facility] ne 175 mcg 1-19 tablet by ity of tablet 00:00: mouth [place] 00 every Medical morning. Branch KCL 10 mEq 2022-0 Yes [id number] 20meq Take 2 [facility] tablet 1-19 tablets by it[facility] of 00:00: mouth in [place] 00 the Medical morning Branch and 2 tablets in the evening. Only take when taking lasix omeprazole 2022-0 Yes [id number] 40mg Take 1 [facility] 40 mg 1-19 capsule by it[facility] of capsule 00:00: mouth in [place] 00 the Medical morning. Branch rosuvastati 2022-0 Yes [id number] 20mg Take 1 [facility] n 20 mg 1-19 tablet by [facility] of tablet 00:00: mouth at [place] [address] bedtime. Medical Branch metoprolol 2022-0 Yes [id number] TAKE 1/2 [facility] tartrate 25 1-19 TABLET BY ity of mg tablet 00:00: MOUTH [place] 00 TWICE Medical DAILY Branch gabapentin 2022-0 Yes [id number] 300mg Take 1 [facility] 300 mg 1-19 capsule by it[facility] of capsule 00:00: mouth in [place] 00 the Medical morning Branch and 1 capsule at noon and 1 capsule in the evening. busPIRone 2022-0 Yes [id number] TAKE 1/2 [facility] 15 mg 1-19 TO 1 ity of tablet 00:00: TABLET BY [place] 00 MOUTH Medical TWICE Branch DAILY NEEDED FOR ANXIETY carBAMazepi 2022-0 Yes [id number] 200mg Take 2 [facility] ne 100 mg 1-19 tablets by it[facility] of 12 hr 00:00: mouth at [facility] 00 bedtime. Medical Branch DULoxetine 2022-0 Yes [id number] 60mg Take 1 [facility] 60 mg 1-19 capsule by it[facility] of capsule 00:00: mouth [place] [address] every Medical morning. Branch furosemide 2022-0 Yes [id number] TAKE 1 [facility] 40 mg 1-19 TABLET BY ity of tablet 00:00: MOUTH [place] 00 EVERY Medical MORNING Branch AND EVERY EVENING levothyroxi 2022-0 Yes [id number] 175ug Take 1 [facility] ne 175 mcg 1-19 tablet by ity of tablet 00:00: mouth [place] 00 every Medical morning. Branch KCL 10 mEq 2022-0 Yes [id number] 20meq Take 2 [facility] tablet 1-19 tablets by ity of 00:00: mouth in [place] 00 the Medical morning Branch and 2 tablets in the evening. Only take when taking lasix omeprazole 2022-0 Yes [id number] 40mg Take 1 [facility] 40 mg 1-19 capsule by it[facility] of capsule 00:00: mouth in [place] [address] the Medical morning. Branch rosuvastati 2022-0 Yes [id number] 20mg Take 1 [facility] n 20 mg 1-19 tablet by it[facility] of tablet 00:00: mouth at [place] [address] bedtime. Medical Branch metoprolol 2022-0 Yes [id number] TAKE 1/2 [facility] tartrate 25 1-19 TABLET BY ity of mg tablet 00:00: MOUTH [place] [address] TWICE Medical DAILY Branch gabapentin 2022-0 Yes [id number] 300mg Take 1 [facility] 300 mg 1-19 capsule by it[facility] of capsule 00:00: mouth in [place] 00 the Medical morning Branch and 1 capsule at noon and 1 capsule in the evening. busPIRone 2022-0 Yes [id number] TAKE 1/2 [facility] 15 mg 1-19 TO 1 ity of tablet 00:00: TABLET BY [address] Medical TWICE [place] DAILY NEEDED FOR ANXIETY carBAMazepi 2022-0 Yes [id number] 200mg Take 2 [facility] ne 100 mg 1-19 tablets by ity of 12 hr 00:00: mouth at [facility] 00 bedtime. Medical Branch DULoxetine 2022-0 Yes [id number] 60mg Take 1 [facility] 60 mg 1-19 capsule by it[facility] of capsule 00:00: mouth [place] [address] every Medical morning. Branch furosemide 2022-0 Yes [id number] TAKE 1 [facility] 40 mg 1-19 TABLET BY ity of tablet 00:00: MOUTH [place] [address] EVERY Medical MORNING Branch AND EVERY EVENING levothyroxi 2022-0 Yes [id number] 175ug Take 1 [facility] ne 175 mcg 1-19 tablet by ity of tablet 00:00: mouth [place] [address] every Medical morning. Branch KCL 10 mEq 2022-0 Yes [id number] 20meq Take 2 [facility] tablet 1-19 tablets by ity of 00:00: mouth in [place] 00 the Medical morning Branch and 2 tablets in the evening. Only take when taking lasix omeprazole 2022-0 Yes [id number] 40mg Take 1 [facility] 40 mg 1-19 capsule by it[facility] of capsule 00:00: mouth in [place] [address] the Medical morning. Branch rosuvastati 2022-0 Yes [id number] 20mg Take 1 [facility] n 20 mg 1-19 tablet by it[facility] of tablet 00:00: mouth at [place] [address] bedtime. Medical Branch metoprolol 2022-0 Yes [id number] TAKE 1/2 [facility] tartrate 25 1-19 TABLET BY ity of mg tablet 00:00: MOUTH [place] [address] TWICE Medical DAILY Branch gabapentin 2022-0 Yes [id number] 300mg Take 1 [facility] 300 mg 1-19 capsule by it[facility] of capsule 00:00: mouth in [place] [address] the Medical morning Branch and 1 capsule at noon and 1 capsule in the evening. busPIRone 2022-0 Yes [id number] TAKE 1/2 [facility] 15 mg 1-19 TO 1 ity of tablet 00:00: TABLET BY [place] 00 MOUTH Medical TWICE Branch DAILY NEEDED FOR ANXIETY carBAMazepi 2022-0 Yes [id number] 200mg Take 2 [facility] ne 100 mg 1-19 tablets by ity of 12 hr 00:00: mouth at [place] tablet 00 bedtime. Medical Branch DULoxetine 2022-0 Yes [id number] 60mg Take 1 [facility] 60 mg 1-19 capsule by [facility] of capsule 00:00: mouth [place] 00 every Medical morning. Branch furosemide 2022-0 Yes [id number] TAKE 1 [facility] 40 mg 1-19 TABLET BY ity of tablet 00:00: MOUTH [place] 00 EVERY Medical MORNING Branch AND EVERY EVENING levothyroxi 2022-0 Yes [id number] 175ug Take 1 [facility] ne 175 mcg 1-19 tablet by ity of tablet 00:00: mouth [place] 00 every Medical morning. Branch KCL 10 mEq 2022-0 Yes [id number] 20meq Take 2 [facility] tablet 1-19 tablets by ity of 00:00: mouth in [place] 00 the Medical morning Branch and 2 tablets in the evening. Only take when taking lasix omeprazole 0 Yes [id number] 40mg Take 1 [facility] 40 mg 1-19 capsule by ity of capsule 00:00: mouth in [place] 00 the Medical morning. Branch rosuvastati Yes [id number] 20mg Take 1 [facility] n 20 mg 1-19 tablet by it[facility] of tablet 00:00: mouth at [place] [address] bedtime. Medical Branch metoprolol 2022-0 Yes [id number] TAKE 1/2 [facility] tartrate 25 1-19 TABLET BY ity of mg tablet 00:00: MOUTH [place] [address] TWICE Medical DAILY Branch gabapentin 2022-0 Yes [id number] 300mg Take 1 [facility] 300 mg 1-19 capsule by it[facility] of capsule 00:00: mouth in [place] 00 the Medical morning Branch and 1 capsule at noon and 1 capsule in the evening. busPIRone 2022-0 Yes [id number] TAKE 1/2 [facility] 15 mg 1-19 TO 1 ity of tablet 00:00: TABLET BY [place] 00 MOUTH Medical TWICE Branch DAILY NEEDED FOR ANXIETY carBAMazepi 0 Yes [id number] 200mg Take 2 [facility] ne 100 mg 1-19 tablets by ity of 12 hr 00:00: mouth at [facility] 00 bedtime. Medical Branch DULoxetine 2022-0 Yes [id number] 60mg Take 1 [facility] 60 mg 1-19 capsule by ity of capsule 00:00: mouth [place] 00 every Medical morning. Branch furosemide 2022-0 Yes [id number] TAKE 1 [facility] 40 mg 1-19 TABLET BY ity of tablet 00:00: MOUTH [place] 00 EVERY Medical MORNING Branch AND EVERY EVENING levothyroxi 2022-0 Yes [id number] 175ug Take 1 [facility] ne 175 mcg 1-19 tablet by ity of tablet 00:00: mouth [place] 00 every Medical morning. Branch KCL 10 mEq 2022-0 Yes [id number] 20meq Take 2 [facility] tablet 1-19 tablets by ity of 00:00: mouth in [place] 00 the Medical morning Branch and 2 tablets in the evening. Only take when taking lasix omeprazole 2022-0 Yes [id number] 40mg Take 1 [facility] 40 mg 1-19 capsule by it[facility] of capsule 00:00: mouth in [place] [address] the Medical morning. Branch rosuvastati 2022-0 Yes [id number] 20mg Take 1 [facility] n 20 mg 1-19 tablet by ity of tablet 00:00: mouth at [place] [address] bedtime. Medical Branch metoprolol 2022-0 Yes [id number] TAKE 1/2 [facility] tartrate 25 1-19 TABLET BY ity of mg tablet 00:00: MOUTH [place] 00 TWICE Medical DAILY Branch gabapentin 2022-0 Yes [id number] 300mg Take 1 [facility] 300 mg 1-19 capsule by ity of capsule 00:00: mouth in [place] 00 the Medical morning Branch and 1 capsule at noon and 1 capsule in the evening. busPIRone 2022-0 Yes [id number] TAKE 1/2 [facility] 15 mg 1-19 TO 1 ity of tablet 00:00: TABLET BY [place] 00 MOUTH Medical TWICE Branch DAILY NEEDED FOR ANXIETY carBAMazepi 2022-0 Yes [id number] 200mg Take 2 [facility] ne 100 mg 1-19 tablets by ity of 12 hr 00:00: mouth at [facility] 00 bedtime. Medical Branch DULoxetine 2022-0 Yes [id number] 60mg Take 1 [facility] 60 mg 1-19 capsule by ity of capsule 00:00: mouth [place] [address] every Medical morning. Branch furosemide 2022-0 Yes [id number] TAKE 1 [facility] 40 mg 1-19 TABLET BY ity of tablet 00:00: MOUTH [place] 00 EVERY Medical MORNING Branch AND EVERY EVENING levothyroxi 2022-0 Yes [id number] 175ug Take 1 [facility] ne 175 mcg 1-19 tablet by ity of tablet 00:00: mouth [place] 00 every Medical morning. Branch KCL 10 mEq 2022-0 Yes [id number] 20meq Take 2 [facility] tablet 1-19 tablets by ity of 00:00: mouth in [place] 00 the Medical morning Branch and 2 tablets in the evening. Only take when taking lasix omeprazole 2022-0 Yes [id number] 40mg Take 1 [facility] 40 mg 1-19 capsule by ity of capsule 00:00: mouth in [place] 00 the Medical morning. Branch rosuvastati 2022-0 Yes [id number] 20mg Take 1 [facility] n 20 mg 1-19 tablet by ity of tablet 00:00: mouth at [place] [address] bedtime. Medical Branch metoprolol 2022-0 Yes [id number] TAKE 1/2 [facility] tartrate 25 1-19 TABLET BY ity of mg tablet 00:00: MOUTH [place] [address] TWICE Medical DAILY Branch gabapentin 2022-0 Yes [id number] 300mg Take 1 [facility] 300 mg 1-19 capsule by ity of capsule 00:00: mouth in [place] 00 the Medical morning Branch and 1 capsule at noon and 1 capsule in the evening. busPIRone 2022-0 Yes [id number] TAKE 1/2 [facility] 15 mg 1-19 TO 1 ity of tablet 00:00: TABLET BY [place] [address] MOUTH Medical TWICE Branch DAILY NEEDED FOR ANXIETY carBAMazepi 2022-0 Yes [id number] 200mg Take 2 [facility] ne 100 mg 1-19 tablets by ity of 12 hr 00:00: mouth at [place] [address] bedtime. Medical Branch DULoxetine 2022-0 Yes [id number] 60mg Take 1 [facility] 60 mg 1-19 capsule by ity of capsule 00:00: mouth [place] [address] every Medical morning. Branch furosemide 2022-0 Yes [id number] TAKE 1 [facility] 40 mg 1-19 TABLET BY ity of tablet 00:00: MOUTH [place] 00 EVERY Medical MORNING Branch AND EVERY EVENING levothyroxi 2022-0 Yes [id number] 175ug Take 1 [facility] ne 175 mcg 1-19 tablet by ity of tablet 00:00: mouth [place] [address] every Medical morning. Branch KCL 10 mEq 2022-0 Yes [id number] 20meq Take 2 [facility] tablet 1-19 tablets by ity of 00:00: mouth in [place] 00 the Medical morning Branch and 2 tablets in the evening. Only take when taking lasix omeprazole Yes [id number] 40mg Take 1 [facility] 40 mg 1-19 capsule by ity of capsule 00:00: mouth in [place] 00 the Medical morning. Branch rosuvastati 2022-0 Yes [id number] 20mg Take 1 [facility] n 20 mg 1-19 tablet by ity of tablet 00:00: mouth at [place] [address] bedtime. Medical Branch metoprolol 2022-0 Yes [id number] TAKE 1/2 [facility] tartrate 25 1-19 TABLET BY ity of mg tablet 00:00: MOUTH [place] 00 TWICE Medical DAILY Branch gabapentin 2022-0 Yes [id number] 300mg Take 1 [facility] 300 mg 1-19 capsule by ity of capsule 00:00: mouth in [place] 00 the Medical morning Branch and 1 capsule at noon and 1 capsule in the evening. busPIRone 0 Yes [id number] TAKE 1/2 [facility] 15 mg 1-19 TO 1 ity of tablet 00:00: TABLET BY [place] [address] MOUTH Medical TWICE Branch DAILY NEEDED FOR ANXIETY carBAMazepi 0 Yes [id number] 200mg Take 2 [facility] ne 100 mg 1-19 tablets by ity of 12 hr 00:00: mouth at [facility] 00 bedtime. Medical Branch DULoxetine 0 Yes [id number] 60mg Take 1 [facility] 60 mg 1-19 capsule by ity of capsule 00:00: mouth [place] 00 every Medical morning. Branch furosemide 2022-0 Yes [id number] TAKE 1 [facility] 40 mg 1-19 TABLET BY ity of tablet 00:00: MOUTH [place] 00 EVERY Medical MORNING Branch AND EVERY EVENING levothyroxi 2022-0 Yes [id number] 175ug Take 1 [facility] ne 175 mcg 1-19 tablet by ity of tablet 00:00: mouth [place] 00 every Medical morning. Branch KCL 10 mEq 2022-0 Yes [id number] 20meq Take 2 [facility] tablet 1-19 tablets by ity of 00:00: mouth in [place] 00 the Medical morning Branch and 2 tablets in the evening. Only take when taking lasix omeprazole 2022-0 Yes [id number] 40mg Take 1 [facility] 40 mg 1-19 capsule by ity of capsule 00:00: mouth in [place] 00 the Medical morning. Branch rosuvastati 2022-0 Yes [id number] 20mg Take 1 [facility] n 20 mg 1-19 tablet by ity of tablet 00:00: mouth at [place] [address] bedtime. Medical Branch metoprolol 2022-0 Yes [id number] TAKE 1/2 [facility] tartrate 25 1-19 TABLET BY ity of mg tablet 00:00: MOUTH [place] 00 TWICE Medical DAILY Branch gabapentin 2022-0 Yes [id number] 300mg Take 1 [facility] 300 mg 1-19 capsule by ity of capsule 00:00: mouth in [place] 00 the Medical morning Branch and 1 capsule at noon and 1 capsule in the evening. busPIRone 2022-0 Yes [id number] TAKE 1/2 [facility] 15 mg 1-19 TO 1 ity of tablet 00:00: TABLET BY [place] [address] MOUTH Medical TWICE Branch DAILY NEEDED FOR ANXIETY carBAMazepi 2022-0 Yes [id number] 200mg Take 2 [facility] ne 100 mg 1-19 tablets by ity of 12 hr 00:00: mouth at [facility] 00 bedtime. Medical Branch DULoxetine 2022-0 Yes [id number] 60mg Take 1 [facility] 60 mg 1-19 capsule by ity of capsule 00:00: mouth [place] 00 every Medical morning. Branch furosemide 2022-0 Yes [id number] TAKE 1 [facility] 40 mg 1-19 TABLET BY ity of tablet 00:00: MOUTH [place] 00 EVERY Medical MORNING Branch AND EVERY EVENING levothyroxi 2022-0 Yes [id number] 175ug Take 1 [facility] ne 175 mcg 1-19 tablet by ity of tablet 00:00: mouth [place] 00 every Medical morning. Branch KCL 10 mEq 2022-0 Yes [id number] 20meq Take 2 [facility] tablet 1-19 tablets by ity of 00:00: mouth in [place] 00 the Medical morning Branch and 2 tablets in the evening. Only take when taking lasix omeprazole 2022-0 Yes [id number] 40mg Take 1 [facility] 40 mg 1-19 capsule by ity of capsule 00:00: mouth in [place] [address] the Medical morning. Branch rosuvastati 2022-0 Yes [id number] 20mg Take 1 [facility] n 20 mg 1-19 tablet by ity of tablet 00:00: mouth at [place] [address] bedtime. Medical Branch metoprolol 2022-0 Yes [id number] TAKE 1/2 [facility] tartrate 25 1-19 TABLET BY ity of mg tablet 00:00: MOUTH [place] 00 TWICE Medical DAILY Branch gabapentin 2022-0 Yes [id number] 300mg Take 1 [facility] 300 mg 1-19 capsule by ity of capsule 00:00: mouth in [place] 00 the Medical morning Branch and 1 capsule at noon and 1 capsule in the evening. busPIRone 0 Yes [id number] TAKE 1/2 [facility] 15 mg 1-19 TO 1 ity of tablet 00:00: TABLET BY [place] 00 MOUTH Medical TWICE Branch DAILY NEEDED FOR ANXIETY carBAMazepi 2022-0 Yes [id number] 200mg Take 2 [facility] ne 100 mg 1-19 tablets by ity of 12 hr 00:00: mouth at [facility] 00 bedtime. Medical Branch DULoxetine 2022-0 Yes [id number] 60mg Take 1 [facility] 60 mg 1-19 capsule by ity of capsule 00:00: mouth [place] [address] every Medical morning. Branch furosemide 0 Yes [id number] TAKE 1 [facility] 40 mg 1-19 TABLET BY ity of tablet 00:00: MOUTH [place] 00 EVERY Medical MORNING Branch AND EVERY EVENING levothyroxi 2022-0 Yes [id number] 175ug Take 1 [facility] ne 175 mcg 1-19 tablet by ity of tablet 00:00: mouth [place] 00 every Medical morning. Branch KCL 10 mEq 0 Yes [id number] 20meq Take 2 [facility] tablet 1-19 tablets by ity of 00:00: mouth in [place] 00 the Medical morning Branch and 2 tablets in the evening. Only take when taking lasix omeprazole 0 Yes [id number] 40mg Take 1 [facility] 40 mg 1-19 capsule by ity of capsule 00:00: mouth in [place] 00 the Medical morning. Branch rosuvastati 0 Yes [id number] 20mg Take 1 [facility] n 20 mg 1-19 tablet by ity of tablet 00:00: mouth at [place] [address] bedtime. Medical Branch metoprolol 2022-0 Yes [id number] TAKE 1/2 [facility] tartrate 25 1-19 TABLET BY ity of mg tablet 00:00: MOUTH [place] 00 TWICE Medical DAILY Branch gabapentin 2022-0 Yes [id number] 300mg Take 1 [facility] 300 mg 1-19 capsule by ity of capsule 00:00: mouth in [place] 00 the Medical morning Branch and 1 capsule at noon and 1 capsule in the evening. carBAMazepi 2022-0 Yes [id number] 200mg Take 2 [facility] ne 100 mg 1-19 tablets by ity of 12 hr 00:00: mouth at [place] tablet 00 bedtime. Medical Branch KCL 10 mEq 2022-0 Yes [id number] 20meq Take 2 [facility] tablet 1-19 tablets by ity of 00:00: mouth in [place] 00 the Medical morning Branch and 2 tablets in the evening. Only take when taking lasix omeprazole 2022-0 Yes [id number] 40mg Take 1 [facility] 40 mg 1-19 capsule by ity of capsule 00:00: mouth in [place] 00 the Medical morning. Branch metoprolol 2022-0 Yes [id number] TAKE 1/2 [facility] tartrate 25 1-19 TABLET BY ity of mg tablet 00:00: MOUTH [place] 00 TWICE Medical DAILY Branch gabapentin 2022-0 Yes [id number] 300mg Take 1 [facility] 300 mg 1-19 capsule by ity of capsule 00:00: mouth in [place] 00 the Medical morning Branch and 1 capsule at noon and 1 capsule in the evening. carBAMazepi 2022-0 Yes [id number] 200mg Take 2 [facility] ne 100 mg 1-19 tablets by ity of 12 hr 00:00: mouth at [place] tablet 00 bedtime. Medical Branch KCL 10 mEq 2022-0 Yes [id number] 20meq Take 2 [facility] tablet 1-19 tablets by ity of 00:00: mouth in [place] the Medical morning Branch and 2 tablets in the evening. Only take when taking lasix omeprazole 2022-0 Yes [id number] 40mg Take 1 [facility] 40 mg 1-19 capsule by ity of capsule 00:00: mouth in [place] 00 the Medical morning. Branch metoprolol 2022-0 Yes [id number] TAKE 1/2 [facility] tartrate 25 1-19 TABLET BY ity of mg tablet 00:00: MOUTH [place] 00 TWICE Medical DAILY Branch gabapentin 2022-0 Yes [id number] 300mg Take 1 [facility] 300 mg 1-19 capsule by ity of capsule 00:00: mouth in [place] 00 the Medical morning Branch and 1 capsule at noon and 1 capsule in the evening. carBAMazepi 2022-0 Yes [id number] 200mg Take 2 [facility] ne 100 mg 1-19 tablets by ity of 12 hr 00:00: mouth at [place] tablet 00 bedtime. Medical Branch KCL 10 mEq 2022-0 Yes [id number] 20meq Take 2 [facility] tablet 1-19 tablets by ity of 00:00: mouth in [place] 00 the Medical morning Branch and 2 tablets in the evening. Only take when taking lasix omeprazole 3-0 Yes [id number] 40mg Take 1 [facility] 40 mg 1-19 capsule by ity of capsule 00:00: mouth in [place] 00 the Medical morning. Branch metoprolol 2023-0 Yes [id number] TAKE 1/2 [facility] tartrate 25 1-19 TABLET BY ity of mg tablet 00:00: MOUTH [place] 00 TWICE Medical DAILY Branch gabapentin 2023-0 Yes [id number] 300mg Take 1 [facility] 300 mg 1-19 capsule by ity of capsule 00:00: mouth in [place] 00 the Medical morning Branch and 1 capsule at noon and 1 capsule in the evening. carBAMazepi 2023-0 Yes [id number] 200mg Take 2 [facility] ne 100 mg 1-19 tablets by ity of 12 hr 00:00: mouth at [place] tablet 00 bedtime. Medical Branch KCL 10 mEq 3-0 Yes [id number] 20meq Take 2 [facility] tablet 1-19 tablets by ity of 00:00: mouth in [place] 00 the Medical morning Branch and 2 tablets in the evening. Only take when taking lasix omeprazole 2022-0 Yes [id number] 40mg Take 1 [facility] 40 mg 1-19 capsule by ity of capsule 00:00: mouth in [place] 00 the Medical morning. Branch metoprolol 3-0 Yes [id number] TAKE 1/2 [facility] tartrate 25 1-19 TABLET BY ity of mg tablet 00:00: MOUTH [place] [address] TWICE Medical DAILY Branch gabapentin 3-0 Yes [id number] 300mg Take 1 [facility] 300 mg 1-19 capsule by ity of capsule 00:00: mouth in [place] 00 the Medical morning Branch and 1 capsule at noon and 1 capsule in the evening. carBAMazepi 2023-0 Yes [id number] 200mg Take 2 [facility] ne 100 mg 1-19 tablets by ity of 12 hr 00:00: mouth at [place] tablet 00 bedtime. Medical Branch KCL 10 mEq 3-0 Yes [id number] 20meq Take 2 [facility] tablet 1-19 tablets by ity of 00:00: mouth in [place] [address] the Medical morning Branch and 2 tablets in the evening. Only take when taking lasix omeprazole 3-0 Yes [id number] 40mg Take 1 [facility] 40 mg 1-19 capsule by [facility] capsule 00:00: mouth in [place] 00 the Medical morning. Branch metoprolol 2022-0 Yes [id number] TAKE 1/2 [facility] tartrate 25 1-19 TABLET BY [facility] of mg tablet 00:00: MOUTH [place] 00 TWICE Medical DAILY Branch gabapentin 3-0 Yes [id number] 300mg Take 1 [facility] 300 mg 1-19 capsule by [facility] of capsule 00:00: mouth in [place] 00 the Medical morning Branch and 1 capsule at noon and 1 capsule in the evening. carBAMazepi 2023-0 Yes [id number] 200mg Take 2 [facility] ne 100 mg 1-19 tablets by [facility] of 12 hr 00:00: mouth at [place] tablet 00 bedtime. Medical Branch KCL 10 mEq 2022-0 Yes [id number] 20meq Take 2 [facility] tablet 1-19 tablets by [facility] of 00:00: mouth in [place] 00 the Medical morning Branch and 2 tablets in the evening. Only take when taking lasix omeprazole 2022-0 Yes [id number] 40mg Take 1 [facility] 40 mg 1-19 capsule by [facility] of capsule 00:00: mouth in [place] 00 the Medical morning. Branch metoprolol 2022-0 Yes [id number] TAKE 1/2 [facility] tartrate 25 1-19 TABLET BY [facility] of mg tablet 00:00: MOUTH [place] 00 TWICE Medical DAILY Branch gabapentin 3-0 Yes [id number] 300mg Take 1 [facility] 300 mg 1-19 capsule by [facility] of capsule 00:00: mouth in [place] 00 the Medical morning Branch and 1 capsule at noon and 1 capsule in the evening. carBAMazepi 3-0 Yes [id number] 200mg Take 2 [facility] ne 100 mg 1-19 tablets by [facility] of 12 hr 00:00: mouth at [place] tablet 00 bedtime. Medical Branch KCL 10 mEq 2022-0 Yes [id number] 20meq Take 2 [facility] tablet 1-19 tablets by [facility] of 00:00: mouth in [place] 00 the Medical morning Branch and 2 tablets in the evening. Only take when taking lasix omeprazole 2022-0 Yes [id number] 40mg Take 1 [facility] 40 mg 1-19 capsule by [facility] of capsule 00:00: mouth in [place] 00 the Medical morning. Branch metoprolol 2022-0 Yes [id number] TAKE 1/2 [facility] tartrate 25 1-19 TABLET BY [facility] of mg tablet 00:00: MOUTH [place] 00 TWICE Medical DAILY Branch gabapentin 3-0 Yes [id number] 300mg Take 1 [facility] 300 mg 1-19 capsule by [facility] of capsule 00:00: mouth in [place] 00 the Medical morning Branch and 1 capsule at noon and 1 capsule in the evening. carBAMazepi 2023-0 Yes [id number] 200mg Take 2 [facility] ne 100 mg 1-19 tablets by [facility] of 12 hr 00:00: mouth at [place] tablet 00 bedtime. Medical Branch KCL 10 mEq 2022-0 Yes [id number] 20meq Take 2 [facility] tablet 1-19 tablets by [facility] of 00:00: mouth in [place] 00 the Medical morning Branch and 2 tablets in the evening. Only take when taking lasix omeprazole 2022-0 Yes [id number] 40mg Take 1 [facility] 40 mg 1-19 capsule by [facility] of capsule 00:00: mouth in [place] [address] the Medical morning. Branch metoprolol 3-0 Yes [id number] TAKE 1/2 [facility] tartrate 25 1-19 TABLET BY [facility] of mg tablet 00:00: MOUTH [place] [address] TWICE Medical DAILY Branch gabapentin 3-0 Yes [id number] 300mg Take 1 [facility] 300 mg 1-19 capsule by [facility] of capsule 00:00: mouth in [place] the Medical morning Branch and 1 capsule at noon and 1 capsule in the evening. carBAMazepi 3-0 Yes [id number] 200mg Take 2 [facility] ne 100 mg 1-19 tablets by [facility] of 12 hr 00:00: mouth at [place] tablet 00 bedtime. Medical Branch KCL 10 mEq 2022-0 Yes [id number] 20meq Take 2 [facility] tablet 1-19 tablets by [facility] of 00:00: mouth in [place] the Medical morning Branch and 2 tablets in the evening. Only take when taking lasix omeprazole 2022-0 Yes [id number] 40mg Take 1 [facility] 40 mg 1-19 capsule by [facility] of capsule 00:00: mouth in [place] [address] the Medical morning. Branch metoprolol 3-0 Yes [id number] TAKE 1/2 [facility] tartrate 25 1-19 TABLET BY [facility] of mg tablet 00:00: MOUTH [place] [address] TWICE Medical DAILY Branch gabapentin 2023-0 Yes [id number] 300mg Take 1 [facility] 300 mg 1-19 capsule by [facility] of capsule 00:00: mouth in [place] the Medical morning Branch and 1 capsule at noon and 1 capsule in the evening. carBAMazepi 3-0 Yes [id number] 200mg Take 2 [facility] ne 100 mg 1-19 tablets by [facility] of 12 hr 00:00: mouth at [place] tablet 00 bedtime. Medical Branch KCL 10 mEq 2022-0 Yes [id number] 20meq Take 2 [facility] tablet 1-19 tablets by [facility] of 00:00: mouth in [place] 00 the Medical morning Branch and 2 tablets in the evening. Only take when taking lasix omeprazole 2022-0 Yes [id number] 40mg Take 1 [facility] 40 mg 1-19 capsule by [facility] of capsule 00:00: mouth in [place] 00 the Medical morning. Branch metoprolol 2022-0 Yes [id number] TAKE 1/2 [facility] tartrate 25 1-19 TABLET BY [facility] of mg tablet 00:00: MOUTH [place] 00 TWICE Medical DAILY Branch gabapentin 2022-0 Yes [id number] 300mg Take 1 [facility] 300 mg 1-19 capsule by [facility] of capsule 00:00: mouth in [place] 00 the Medical morning Branch and 1 capsule at noon and 1 capsule in the evening. carBAMazepi 2022-0 Yes [id number] 200mg Take 2 [facility] ne 100 mg 1-19 tablets by [facility] of 12 hr 00:00: mouth at [place] tablet 00 bedtime. Medical Branch KCL 10 mEq 2022-0 Yes [id number] 20meq Take 2 [facility] tablet 1-19 tablets by [facility] of 00:00: mouth in [place] 00 the Medical morning Branch and 2 tablets in the evening. Only take when taking lasix omeprazole 2022-0 Yes [id number] 40mg Take 1 [facility] 40 mg 1-19 capsule by [facility] of capsule 00:00: mouth in [place] 00 the Medical morning. Branch metoprolol 2022-0 Yes [id number] TAKE 1/2 [facility] tartrate 25 1-19 TABLET BY [facility] of mg tablet 00:00: MOUTH [place] [address] TWICE Medical DAILY Branch gabapentin 3-0 Yes [id number] 300mg Take 1 [facility] 300 mg 1-19 capsule by [facility] of capsule 00:00: mouth in [place] 00 the Medical morning Branch and 1 capsule at noon and 1 capsule in the evening. carBAMazepi 3-0 Yes [id number] 200mg Take 2 [facility] ne 100 mg 1-19 tablets by [facility] of 12 hr 00:00: mouth at [place] tablet 00 bedtime. Medical Branch KCL 10 mEq 2022-0 Yes [id number] 20meq Take 2 [facility] tablet 1-19 tablets by [facility] of 00:00: mouth in [place] 00 the Medical morning Branch and 2 tablets in the evening. Only take when taking lasix omeprazole 2022-0 Yes [id number] 40mg Take 1 [facility] 40 mg 1-19 capsule by [facility] of capsule 00:00: mouth in [place] 00 the Medical morning. Branch metoprolol 2022-0 Yes [id number] TAKE 1/2 [facility] tartrate 25 1-19 TABLET BY [facility] of mg tablet 00:00: MOUTH [place] 00 TWICE Medical DAILY Branch gabapentin 3-0 Yes [id number] 300mg Take 1 [facility] 300 mg 1-19 capsule by [facility] of capsule 00:00: mouth in [place] 00 the Medical morning Branch and 1 capsule at noon and 1 capsule in the evening. carBAMazepi 3-0 Yes [id number] 200mg Take 2 [facility] ne 100 mg 1-19 tablets by [facility] of 12 hr 00:00: mouth at [place] tablet 00 bedtime. Medical Branch KCL 10 mEq 2022-0 Yes [id number] 20meq Take 2 [facility] tablet 1-19 tablets by [facility] of 00:00: mouth in [place] 00 the Medical morning Branch and 2 tablets in the evening. Only take when taking lasix omeprazole 2022-0 Yes [id number] 40mg Take 1 [facility] 40 mg 1-19 capsule by [facility] of capsule 00:00: mouth in [place] 00 the Medical morning. Branch metoprolol 2022-0 Yes [id number] TAKE 1/2 [facility] tartrate 25 1-19 TABLET BY [facility] of mg tablet 00:00: MOUTH [place] 00 TWICE Medical DAILY Branch gabapentin 3-0 Yes [id number] 300mg Take 1 [facility] 300 mg 1-19 capsule by [facility] of capsule 00:00: mouth in [place] 00 the Medical morning Branch and 1 capsule at noon and 1 capsule in the evening. carBAMazepi 2023-0 Yes [id number] 200mg Take 2 [facility] ne 100 mg 1-19 tablets by [facility] of 12 hr 00:00: mouth at [place] tablet 00 bedtime. Medical Branch KCL 10 mEq 2022-0 Yes [id number] 20meq Take 2 [facility] tablet 1-19 tablets by [facility] of 00:00: mouth in [place] 00 the Medical morning Branch and 2 tablets in the evening. Only take when taking lasix omeprazole 2022-0 Yes [id number] 40mg Take 1 [facility] 40 mg 1-19 capsule by [facility] of capsule 00:00: mouth in [place] 00 the Medical morning. Branch metoprolol 2022-0 Yes [id number] TAKE 1/2 [facility] tartrate 25 1-19 TABLET BY [facility] of mg tablet 00:00: MOUTH [place] 00 TWICE Medical DAILY Branch gabapentin 3-0 Yes [id number] 300mg Take 1 [facility] 300 mg 1-19 capsule by [facility] of capsule 00:00: mouth in [place] 00 the Medical morning Branch and 1 capsule at noon and 1 capsule in the evening. carBAMazepi 2023-0 Yes [id number] 200mg Take 2 [facility] ne 100 mg 1-19 tablets by [facility] of 12 hr 00:00: mouth at [place] tablet 00 bedtime. Medical Branch KCL 10 mEq 2022-0 Yes [id number] 20meq Take 2 [facility] tablet 1-19 tablets by [facility] of 00:00: mouth in [place] the Medical morning Branch and 2 tablets in the evening. Only take when taking lasix omeprazole 2022-0 Yes [id number] 40mg Take 1 [facility] 40 mg 1-19 capsule by [facility] of capsule 00:00: mouth in [place] 00 the Medical morning. Branch metoprolol 2022-0 Yes [id number] TAKE 1/2 [facility] tartrate 25 1-19 TABLET BY [facility] of mg tablet 00:00: MOUTH [place] 00 TWICE Medical DAILY Branch gabapentin 3-0 Yes [id number] 300mg Take 1 [facility] 300 mg 1-19 capsule by [facility] of capsule 00:00: mouth in [place] the Medical morning Branch and 1 capsule at noon and 1 capsule in the evening. carBAMazepi 3-0 Yes [id number] 200mg Take 2 [facility] ne 100 mg 1-19 tablets by [facility] of 12 hr 00:00: mouth at [place] tablet 00 bedtime. Medical Branch KCL 10 mEq 2022-0 Yes [id number] 20meq Take 2 [facility] tablet 1-19 tablets by [facility] of 00:00: mouth in [place] the Medical morning Branch and 2 tablets in the evening. Only take when taking lasix omeprazole 3-0 Yes [id number] 40mg Take 1 [facility] 40 mg 1-19 capsule by [facility] of capsule 00:00: mouth in [place] 00 the Medical morning. Branch metoprolol 2023-0 Yes [id number] TAKE 1/2 [facility] tartrate 25 1-19 TABLET BY [facility] of mg tablet 00:00: MOUTH [place] 00 TWICE Medical DAILY Branch gabapentin 2022-0 Yes [id number] 300mg Take 1 [facility] 300 mg 1-19 capsule by [facility] of capsule 00:00: mouth in [place] 00 the Medical morning Branch and 1 capsule at noon and 1 capsule in the evening. carBAMazepi 2023-0 Yes [id number] 200mg Take 2 [facility] ne 100 mg 1-19 tablets by [facility] of 12 hr 00:00: mouth at [place] tablet 00 bedtime. Medical Branch KCL 10 mEq 2022-0 Yes [id number] 20meq Take 2 [facility] tablet 1-19 tablets by [facility] of 00:00: mouth in [place] 00 the Medical morning Branch and 2 tablets in the evening. Only take when taking lasix omeprazole 2022-0 Yes [id number] 40mg Take 1 [facility] 40 mg 1-19 capsule by [facility] of capsule 00:00: mouth in [place] 00 the Medical morning. Branch metoprolol 2022-0 Yes [id number] TAKE 1/2 [facility] tartrate 25 1-19 TABLET BY [facility] of mg tablet 00:00: MOUTH [place] 00 TWICE Medical DAILY Branch gabapentin 2022-0 Yes [id number] 300mg Take 1 [facility] 300 mg 1-19 capsule by [facility] of capsule 00:00: mouth in [place] 00 the Medical morning Branch and 1 capsule at noon and 1 capsule in the evening. carBAMazepi 3-0 Yes [id number] 200mg Take 2 [facility] ne 100 mg 1-19 tablets by [facility] of 12 hr 00:00: mouth at [place] tablet 00 bedtime. Medical Branch KCL 10 mEq 2022-0 Yes [id number] 20meq Take 2 [facility] tablet 1-19 tablets by [facility] of 00:00: mouth in [place] 00 the Medical morning Branch and 2 tablets in the evening. Only take when taking lasix omeprazole 2022-0 Yes [id number] 40mg Take 1 [facility] 40 mg 1-19 capsule by [facility] of capsule 00:00: mouth in [place] [address] the Medical morning. Branch metoprolol 2022-0 Yes [id number] TAKE 1/2 [facility] tartrate 25 1-19 TABLET BY [facility] of mg tablet 00:00: MOUTH [place] 00 TWICE Medical DAILY Branch gabapentin 3-0 Yes [id number] 300mg Take 1 [facility] 300 mg 1-19 capsule by [facility] of capsule 00:00: mouth in [place] 00 the Medical morning Branch and 1 capsule at noon and 1 capsule in the evening. carBAMazepi 2022-0 Yes [id number] 200mg Take 2 [facility] ne 100 mg 1-19 tablets by [facility] of 12 hr 00:00: mouth at [place] tablet 00 bedtime. Medical Branch KCL 10 mEq 2022-0 Yes [id number] 20meq Take 2 [facility] tablet 1-19 tablets by it[facility] of 00:00: mouth in [place] 00 the Medical morning Branch and 2 tablets in the evening. Only take when taking lasix omeprazole 2022-0 Yes [id number] 40mg Take 1 [facility] 40 mg 1-19 capsule by [facility] of capsule 00:00: mouth in [place] [address] the Medical morning. Branch metoprolol 2022-0 Yes [id number] TAKE 1/2 [facility] tartrate 25 1-19 TABLET BY [facility] of mg tablet 00:00: MOUTH [place] [address] TWICE Medical DAILY Branch gabapentin 2022-0 Yes [id number] 300mg Take 1 [facility] 300 mg 1-19 capsule by [facility] of capsule 00:00: mouth in [place] the Medical morning Branch and 1 capsule at noon and 1 capsule in the evening. carBAMazepi 2022-0 Yes [id number] 200mg Take 2 [facility] ne 100 mg 1-19 tablets by [facility] of 12 hr 00:00: mouth at [place] tablet 00 bedtime. Medical Branch KCL 10 mEq 2022-0 Yes [id number] 20meq Take 2 [facility] tablet 1-19 tablets by [facility] of 00:00: mouth in [place] 00 the Medical morning Branch and 2 tablets in the evening. Only take when taking lasix omeprazole 2022-0 Yes [id number] 40mg Take 1 [facility] 40 mg 1-19 capsule by [facility] of capsule 00:00: mouth in [place] 00 the Medical morning. Branch metoprolol 2022-0 Yes [id number] TAKE 1/2 [facility] tartrate 25 1-19 TABLET BY [facility] of mg tablet 00:00: MOUTH [place] [address] TWICE Medical DAILY Branch gabapentin 2022-0 Yes [id number] 300mg Take 1 [facility] 300 mg 1-19 capsule by [facility] of capsule 00:00: mouth in [place] 00 the Medical morning Branch and 1 capsule at noon and 1 capsule in the evening. carBAMazepi 2022-0 Yes [id number] 200mg Take 2 [facility] ne 100 mg 1-19 tablets by [facility] of 12 hr 00:00: mouth at [place] tablet 00 bedtime. Medical Branch KCL 10 mEq 2022-0 Yes [id number] 20meq Take 2 [facility] tablet 1-19 tablets by [facility] of 00:00: mouth in [place] 00 the Medical morning Branch and 2 tablets in the evening. Only take when taking lasix omeprazole 2022-0 Yes [id number] 40mg Take 1 [facility] 40 mg 1-19 capsule by [facility] of capsule 00:00: mouth in [place] 00 the Medical morning. Branch metoprolol 2022-0 Yes [id number] TAKE 1/2 [facility] tartrate 25 1-19 TABLET BY [facility] of mg tablet 00:00: MOUTH [place] 00 TWICE Medical DAILY Branch gabapentin 2022-0 Yes [id number] 300mg Take 1 [facility] 300 mg 1-19 capsule by [facility] of capsule 00:00: mouth in [place] 00 the Medical morning Branch and 1 capsule at noon and 1 capsule in the evening. carBAMazepi 2022-0 Yes [id number] 200mg Take 2 [facility] ne 100 mg 1-19 tablets by [facility] of 12 hr 00:00: mouth at [place] tablet 00 bedtime. Medical Branch KCL 10 mEq 2022-0 Yes [id number] 20meq Take 2 [facility] tablet 1-19 tablets by [facility] of 00:00: mouth in [place] 00 the Medical morning Branch and 2 tablets in the evening. Only take when taking lasix omeprazole 2022-0 Yes [id number] 40mg Take 1 [facility] 40 mg 1-19 capsule by [facility] of capsule 00:00: mouth in [place] 00 the Medical morning. Branch metoprolol 2022-0 Yes [id number] TAKE 1/2 [facility] tartrate 25 1-19 TABLET BY [facility] of mg tablet 00:00: MOUTH [place] 00 TWICE Medical DAILY Branch gabapentin 3-0 Yes [id number] 300mg Take 1 [facility] 300 mg 1-19 capsule by [facility] of capsule 00:00: mouth in [place] 00 the Medical morning Branch and 1 capsule at noon and 1 capsule in the evening. carBAMazepi 2022-0 Yes [id number] 200mg Take 2 [facility] ne 100 mg 1-19 tablets by [facility] of 12 hr 00:00: mouth at [place] tablet 00 bedtime. Medical Branch KCL 10 mEq 2023-0 Yes [id number] 20meq Take 2 [facility] tablet 1-19 tablets by [facility] of 00:00: mouth in [place] 00 the Medical morning Branch and 2 tablets in the evening. Only take when taking lasix omeprazole Yes [id number] 40mg Take 1 [facility] 40 mg -19 capsule by [facility] of capsule 00:00: mouth in [place] 00 the Medical morning. Branch busPIRone 2022- No [id number] TAKE 1/2 [facility] 15 mg 10-13 TO 1 [facility]y of tablet 00:00: 00:00 TABLET BY [place] 00 :00 MOUTH Medical TWICE Branch DAILY NEEDED FOR ANXIETY DULoxetine 2022- No [id number] 60mg Take 1 [facility] 60 mg 10-13 capsule by [facility] of capsule 00:00: 00:00 mouth [place] 00 :00 every Medical morning. Branch furosemide 2022-2022- No [id number] TAKE 1 [facility] 40 mg 10-13 TABLET BY ity of tablet 00:00: 00:00 MOUTH [place] 00 :00 EVERY Medical MORNING Branch AND EVERY EVENING levothyroxi 2022- No [id number] 175ug Take 1 [facility] ne 175 mcg 10-13 tablet by ity of tablet 00:00: 00:00 mouth [place] 00 :00 every Medical morning. Branch rosuvastati 2022- No [id number] 20mg Take 1 [facility] n 20 mg 10-13 tablet by ity of tablet 00:00: 00:00 mouth at [place] 00 :00 bedtime. Medical Branch busPIRone 2022- No [id number] TAKE 1/2 [facility] 15 mg 10-13 TO 1 ity of tablet 00:00: 00:00 TABLET BY [place] 00 :00 MOUTH Medical TWICE Branch DAILY NEEDED FOR ANXIETY DULoxetine 2022- No [id number] 60mg Take 1 [facility] 60 mg 10-13 capsule by [facility] of capsule 00:00: 00:00 mouth [place] 00 :00 every Medical morning. Branch furosemide 2022- No [id number] TAKE 1 [facility] 40 mg 10-13 TABLET BY ity of tablet 00:00: 00:00 MOUTH [place] 00 :00 EVERY Medical MORNING Branch AND EVERY EVENING levothyroxi 2022- No [id number] 175ug Take 1 [facility] ne 175 mcg 10-13 tablet by [facility] of tablet 00:00: 00:00 mouth [place] 00 :00 every Medical morning. Branch rosuvastati 2022- No [id number] 20mg Take 1 [facility] n 20 mg 10-13 tablet by ity of tablet 00:00: 00:00 mouth at [place] 00 :00 bedtime. Medical Branch ondansetron 2022- No [id number] TAKE 1 [facility] 4 mg tablet 10-13 TABLET BY it y of 00:00: 00:00 MOUTH [place] 00 :00 EVERY 8 Medical HOURS Branch NEEDED FOR NAUSEA OR VOMITING QUEtiapine 2022- No [id number] 400mg Take 1 [facility] 400 mg 10-13 tablet by it[facility] of tablet 00:00: 00:00 mouth at [place] 00 :00 bedtime. Medical ADDITIONAL Branch REFILLS PER PSYCHIATRY ondansetron 2022- No [id number] TAKE 1 [facility] 4 mg tablet 10-13 TABLET BY it y of 00:00: 00:00 MOUTH [place] 00 :00 EVERY 8 Medical HOURS Branch NEEDED FOR NAUSEA OR VOMITING QUEtiapine 2022- No [id number] 400mg Take 1 [facility] 400 mg 10-13 tablet by [facility] of tablet 00:00: 00:00 mouth at [place] 00 :00 bedtime. Medical ADDITIONAL Branch REFILLS PER PSYCHIATRY Insulin 2022- No [id number] ADMINISTER [facility] Glargine 10-13 56 UNITS ity of (LANT[place] 00:00: 00:[place] 00 :00 SKIN TWICE Medic al U-100 DAILY Branch INSULIN) 100 unit/mL (3 mL) injection carBAMazepi 2021-09 Yes [id number] 200mg TAKE 2 [facility] ne 100 mg 2-29 TABLETS BY ity of 12 hr 00:00: MOUTH AT [place] tablet 00 BEDTIME Medical Branch busPIRone 2021-09 Yes [id number] TAKE 1/2 [facility] 15 mg 2-29 TO 1 ity of tablet 00:00: TABLET BY [place] 00 MOUTH Medical TWICE Branch DAILY NEEDED FOR ANXIETY furosemide 2021-09 Yes [id number] TAKE 1 [facility] 40 mg 2-29 TABLET BY ity of tablet 00:00: MOUTH [place] EVERY Medical MORNING Branch AND EVERY EVENING gabapentin 2021-09 Yes [id number] TAKE 1 [facility] 300 mg 2-29 CAPSULE BY ity of capsule 00:00: MOUTH IN [place] THE Medical MORNING Branch AND IN THE EVENING levothyroxi 2021-09 Yes [id number] TAKE 1 [facility] ne 175 mcg 2-29 TABLET BY ity of tablet 00:00: MOUTH [place] EVERY Medical MORNING Branch DULoxetine 2021-09 Yes [id number] TAKE 1 [facility] 60 mg 2-29 CAPSULE BY ity of capsule 00:00: MOUTH [place] EVERY Medical MORNING Branch carBAMazepi 2021-09 Yes [id number] 200mg TAKE 2 [facility] ne 100 mg 2-29 TABLETS BY ity of 12 hr 00:00: MOUTH AT [place] tablet 00 BEDTIME Medical Branch busPIRone 2021-09 Yes [id number] TAKE 1/2 [facility] 15 mg 2-29 TO 1 ity of tablet 00:00: TABLET BY [place] [address] MOUTH Medical TWICE [place] DAILY NEEDED FOR ANXIETY furosemide 2021-09 Yes [id number] TAKE 1 [facility] 40 mg 2-29 TABLET BY ity of tablet 00:00: MOUTH [place] EVERY Medical MORNING Branch AND EVERY EVENING gabapentin 2021-09 Yes [id number] TAKE 1 [facility] 300 mg 2-29 CAPSULE BY ity of capsule 00:00: MOUTH IN [place] THE Medical MORNING Branch AND IN THE EVENING levothyroxi 2021-09 Yes [id number] TAKE 1 [facility] ne 175 mcg 2-29 TABLET BY ity of tablet 00:00: MOUTH [place] EVERY Medical MORNING Branch DULoxetine 2021-09 Yes [id number] TAKE 1 [facility] 60 mg 2-29 CAPSULE BY ity of capsule 00:00: MOUTH [place] [address] EVERY Medical MORNING Branch carBAMazepi 2021-09 Yes [id number] 200mg TAKE 2 [facility] ne 100 mg 2-29 TABLETS BY ity of 12 hr 00:00: MOUTH AT [place] tablet 00 BEDTIME Medical Branch busPIRone 2021-09 Yes [id number] TAKE 1/2 [facility] 15 mg 2-29 TO 1 ity of tablet 00:00: TABLET BY [place] [address] MOUTH Medical TWICE [place] DAILY NEEDED FOR ANXIETY furosemide 2021-09 Yes [id number] TAKE 1 [facility] 40 mg 2-29 TABLET BY ity of tablet 00:00: MOUTH [place] 00 EVERY Medical MORNING Branch AND EVERY EVENING gabapentin 2021-09 Yes [id number] TAKE 1 [facility] 300 mg 2-29 CAPSULE BY ity of capsule 00:00: MOUTH IN [place] THE Medical MORNING Branch AND IN THE EVENING levothyroxi 2021-09 Yes [id number] TAKE 1 [facility] ne 175 mcg 2-29 TABLET BY ity of tablet 00:00: MOUTH [place] [address] EVERY Medical MORNING Branch DULoxetine 2021-09 Yes [id number] TAKE 1 [facility] 60 mg 2-29 CAPSULE BY ity of capsule 00:00: MOUTH [place] [address] EVERY Medical MORNING Branch carBAMazepi 2021-09 Yes [id number] 200mg TAKE 2 [facility] ne 100 mg 2-29 TABLETS BY ity of 12 hr 00:00: MOUTH AT [place] tablet 00 BEDTIME Medical Branch busPIRone 2021-09 Yes [id number] TAKE 1/2 [facility] 15 mg 2-29 TO 1 ity of tablet 00:00: TABLET BY [address] Medical TWICE [place] DAILY NEEDED FOR ANXIETY furosemide 2021-09 Yes [id number] TAKE 1 [facility] 40 mg 2-29 TABLET BY ity of tablet 00:00: MOUTH [place] [address] EVERY Medical MORNING Branch AND EVERY EVENING gabapentin 2021-09 Yes [id number] TAKE 1 [facility] 300 mg 2-29 CAPSULE BY ity of capsule 00:00: MOUTH IN [place] THE Medical MORNING Branch AND IN THE EVENING levothyroxi 2021-09 Yes [id number] TAKE 1 [facility] ne 175 mcg 2-29 TABLET BY ity of tablet 00:00: MOUTH [place] [address] EVERY Medical MORNING Branch DULoxetine 2021-09 Yes [id number] TAKE 1 [facility] 60 mg 2-29 CAPSULE BY ity of capsule 00:00: MOUTH [place] [address] EVERY Medical MORNING Branch carBAMazepi 2021-09 Yes [id number] 200mg TAKE 2 [facility] ne 100 mg 2-29 TABLETS BY ity of 12 hr 00:00: MOUTH AT [place] tablet 00 BEDTIME Medical Branch busPIRone 2021-09 Yes [id number] TAKE 1/2 [facility] 15 mg 2-29 TO 1 ity of tablet 00:00: TABLET BY [place] [address] MOUTH Medical TWICE [place] DAILY NEEDED FOR ANXIETY furosemide 2021-09 Yes [id number] TAKE 1 [facility] 40 mg 2-29 TABLET BY ity of tablet 00:00: MOUTH [place] [address] EVERY Medical MORNING Branch AND EVERY EVENING gabapentin 2021-09 Yes [id number] TAKE 1 [facility] 300 mg 2-29 CAPSULE BY ity of capsule 00:00: MOUTH IN [place] 00 THE Medical MORNING Branch AND IN THE EVENING levothyroxi 2021-09 Yes [id number] TAKE 1 [facility] ne 175 mcg 2- TABLET BY ity of tablet 00:00: MOUTH [place] [address] EVERY Medical MORNING Branch DULoxetine 2021-09 Yes [id number] TAKE 1 [facility] 60 mg 2- CAPSULE BY ity of capsule 00:00: MOUTH [place] [address] EVERY Medical MORNING Branch carBAMazepi 2021-09- No [id number] 200mg TAKE 2 [facility] ne 100 mg -10-13 TABLETS BY ity of 12 hr 00:00: 00:00 MOUTH AT [place] tablet 00 :00 BEDTIME Medical Branch busPIRone 2021-09- No [id number] TAKE 1/2 [facility] 15 mg 10-13 TO 1 ity of tablet 00:00: 00:00 TABLET BY [place] 00 :[address] [facility] Medical TWICE [place] DAILY NEEDED FOR ANXIETY furosemide 2021-09- No [id number] TAKE 1 [facility] 40 mg -10-13 TABLET BY ity of tablet 00:00: 00:00 MOUTH [place] 00 :00 EVERY Medical MORNING Branch AND EVERY EVENING gabapentin 2021-09- No [id number] TAKE 1 [facility] 300 mg 10-13 CAPSULE BY ity of capsule 00:00: 00:00 MOUTH IN [place] 00 :00 THE Medical MORNING Branch AND IN THE EVENING levothyroxi 2021-09- No [id number] TAKE 1 [facility] ne 175 mcg -10-13 TABLET BY ity of tablet 00:00: 00:00 MOUTH [place] 00 :00 EVERY Medical MORNING Branch DULoxetine 2021-09- No [id number] TAKE 1 [facility] 60 mg -10-13 CAPSULE BY ity of capsule 00:00: 00:00 MOUTH [place] 00 :00 EVERY Medical MORNING Branch carBAMazepi 2021-09- No [id number] 200mg TAKE 2 [facility] ne 100 mg -10-13 TABLETS BY ity of 12 hr 00:00: 00:00 MOUTH AT [place] tablet 00 :00 BEDTIME Medical Branch busPIRone 2021-09- No [id number] TAKE 1/2 [facility] 15 mg -10-13 TO 1 ity of tablet 00:00: 00:00 TABLET BY [place] 00 :00 MOUTH Medical TWICE Branch DAILY NEEDED FOR ANXIETY furosemide 2021-09- No [id number] TAKE 1 [facility] 40 mg 10-13 TABLET BY ity of tablet 00:00: 00:00 MOUTH [place] 00 :00 EVERY Medical MORNING Branch AND EVERY EVENING gabapentin 2021-09- No [id number] TAKE 1 [facility] 300 mg 10-13 CAPSULE BY ity of capsule 00:00: 00:00 MOUTH IN [place] 00 :00 THE Medical MORNING Branch AND IN THE EVENING levothyroxi 2021-09- No [id number] TAKE 1 [facility] ne 175 mcg 10-13 TABLET BY ity of tablet 00:00: 00:00 MOUTH [place] 00 :00 EVERY Medical MORNING Branch DULoxetine 2021-09- No [id number] TAKE 1 [facility] 60 mg 10-13 CAPSULE BY ity of capsule 00:00: 00:00 MOUTH [place] 00 :00 EVERY Medical MORNING Branch carBAMazepi 2021-09- No [id number] 200mg TAKE 2 [facility] ne 100 mg 10-13 TABLETS BY ity of 12 hr 00:00: 00:00 MOUTH AT [place] tablet 00 :00 BEDTIME Medical Branch busPIRone 2021-09- No [id number] TAKE 1/2 [facility] 15 mg 10-13 TO 1 ity of tablet 00:00: 00:00 TABLET BY [place] 00 :00 MOUTH Medical TWICE Branch DAILY NEEDED FOR ANXIETY furosemide 2021-09- No [id number] TAKE 1 [facility] 40 mg 10-13 TABLET BY ity of tablet 00:00: 00:00 MOUTH [place] 00 :00 EVERY Medical MORNING Branch AND EVERY EVENING gabapentin 2021-09- No [id number] TAKE 1 [facility] 300 mg 10-13 CAPSULE BY ity of capsule 00:00: 00:00 MOUTH IN [place] 00 :00 THE Medical MORNING Branch AND IN THE EVENING levothyroxi 2021-09- No [id number] TAKE 1 [facility] ne 175 mcg 10-13 TABLET BY ity of tablet 00:00: 00:00 MOUTH [place] 00 :00 EVERY Medical MORNING Branch DULoxetine 2021-09- No [id number] TAKE 1 [facility] 60 mg 10-13 CAPSULE BY ity of capsule 00:00: 00:00 MOUTH [place] 00 :00 EVERY Medical MORNING Branch carBAMazepi 2021-09- No [id number] 200mg TAKE 2 [facility] ne 100 mg 10-13 TABLETS BY ity of 12 hr 00:00: 00:00 MOUTH AT [place] tablet 00 :00 BEDTIME Medical Branch busPIRone 2021-09- No [id number] TAKE 1/2 [facility] 15 mg 10-13 TO 1 ity of tablet 00:00: 00:00 TABLET BY [place] 00 :00 MOUTH Medical TWICE Branch DAILY NEEDED FOR ANXIETY furosemide 2021-09- No [id number] TAKE 1 [facility] 40 mg 10-13 TABLET BY ity of tablet 00:00: 00:00 MOUTH [place] 00 :00 EVERY Medical MORNING Branch AND EVERY EVENING gabapentin 2021-09- No [id number] TAKE 1 [facility] 300 mg 10-13 CAPSULE BY ity of capsule 00:00: 00:00 MOUTH IN [place] 00 :00 THE Medical MORNING Branch AND IN THE EVENING levothyroxi 2021-09- No [id number] TAKE 1 [facility] ne 175 mcg 10-13 TABLET BY ity of tablet 00:00: 00:00 MOUTH [place] 00 :00 EVERY Medical MORNING Branch DULoxetine 2021-09- No [id number] TAKE 1 [facility] 60 mg 10-13 CAPSULE BY ity of capsule 00:00: 00:00 MOUTH [place] 00 :00 EVERY Medical MORNING Branch TRAZODONE 2021-09 Yes [id number] TAKE 1 U nivers 100 mg 2-06 TABLET BY ity of tablet 00:00: [facility] 00 EVERY Medical NIGHT Branch TRAZODONE 2021-09 Yes [id number] TAKE 1 U nivers 100 mg 2-06 TABLET BY ity of tablet 00:00: [facility] 00 EVERY Medical NIGHT Branch TRAZODONE 2021-09 Yes [id number] TAKE 1 U nivers 100 mg 2-06 TABLET BY ity of tablet 00:00: [facility] 00 EVERY Medical NIGHT Branch TRAZODONE 2021-09 Yes [id number] TAKE 1 U nivers 100 mg 2-06 TABLET BY ity of tablet 00:00: [facility] 00 EVERY Medical NIGHT Branch TRAZODONE 2021-09 Yes [id number] TAKE 1 U nivers 100 mg 2-06 TABLET BY ity of tablet 00:00: MOUTH [place] 00 EVERY Medical NIGHT Branch TRAZODONE 2021-09 Yes [id number] TAKE 1 U nivers 100 mg 2-06 TABLET BY ity of tablet 00:00: MOUTH [place] 00 EVERY Medical NIGHT Branch TRAZODONE 2021-09 Yes [id number] TAKE 1 U nivers 100 mg 2-06 TABLET BY ity of tablet 00:00: MOUTH [place] EVERY Medical NIGHT Branch TRAZODONE 2021-09 Yes [id number] TAKE 1 U nivers 100 mg 2-06 TABLET BY ity of tablet 00:00: MOUTH [place] 00 EVERY Medical NIGHT Branch TRAZODONE 2021-09 Yes [id number] TAKE 1 U nivers 100 mg 2-06 TABLET BY ity of tablet 00:00: MOUTH [place] 00 EVERY Medical NIGHT Branch TRAZODONE 2021-09 Yes [id number] TAKE 1 U nivers 100 mg 2-06 TABLET BY ity of tablet 00:00: MOUTH [place] EVERY Medical NIGHT Branch TRAZODONE 2021-09 Yes [id number] TAKE 1 U nivers 100 mg 2-06 TABLET BY ity of tablet 00:00: MOUTH [place] 00 EVERY Medical NIGHT Branch TRAZODONE 2021-09 Yes [id number] TAKE 1 U nivers 100 mg 2-06 TABLET BY ity of tablet 00:00: MOUTH [place] 00 EVERY Medical NIGHT Branch TRAZODONE 2021-09 Yes [id number] TAKE 1 U nivers 100 mg 2-06 TABLET BY ity of tablet 00:00: MOUTH [place] 00 EVERY Medical NIGHT Branch TRAZODONE 2021-09 Yes [id number] TAKE 1 U nivers 100 mg 2-06 TABLET BY ity of tablet 00:00: MOUTH [place] 00 EVERY Medical NIGHT Branch TRAZODONE 2021-09 Yes [id number] TAKE 1 U nivers 100 mg 2-06 TABLET BY ity of tablet 00:00: MOUTH [place] 00 EVERY Medical NIGHT Branch TRAZODONE 2021-09 Yes [id number] TAKE 1 U nivers 100 mg 2-06 TABLET BY ity of tablet 00:00: MOUTH [place] 00 EVERY Medical NIGHT Branch TRAZODONE 2021-09 Yes [id number] TAKE 1 U nivers 100 mg 2-06 TABLET BY ity of tablet 00:00: MOUTH [place] 00 EVERY Medical NIGHT Branch TRAZODONE 2021-09 Yes [id number] TAKE 1 U nivers 100 mg 2-06 TABLET BY ity of tablet 00:00: MOUTH [place] 00 EVERY Medical NIGHT Branch TRAZODONE 2021-09 Yes [id number] TAKE 1 U nivers 100 mg 2-06 TABLET BY ity of tablet 00:00: MOUTH [place] 00 EVERY Medical NIGHT Branch TRAZODONE 2021-09 Yes [id number] TAKE 1 U nivers 100 mg 2-06 TABLET BY ity of tablet 00:00: MOUTH [place] 00 EVERY Medical NIGHT Branch TRAZODONE 2021-09 Yes [id number] TAKE 1 U nivers 100 mg 2-06 TABLET BY ity of tablet 00:00: MOUTH [place] 00 EVERY Medical NIGHT Branch TRAZODONE 2021-09 Yes [id number] TAKE 1 U nivers 100 mg 2-06 TABLET BY ity of tablet 00:00: MOUTH [place] 00 EVERY Medical NIGHT Branch TRAZODONE 2021-09 Yes [id number] TAKE 1 U nivers 100 mg 2-06 TABLET BY ity of tablet 00:00: MOUTH [place] 00 EVERY Medical NIGHT Branch TRAZODONE 2021-09 Yes [id number] TAKE 1 U nivers 100 mg 2-06 TABLET BY ity of tablet 00:00: MOUTH [place] 00 EVERY Medical NIGHT Branch TRAZODONE 2021-09 Yes [id number] TAKE 1 U nivers 100 mg 2-06 TABLET BY ity of tablet 00:00: MOUTH [place] 00 EVERY Medical NIGHT Branch TRAZODONE 2021-09 Yes [id number] TAKE 1 U nivers 100 mg 2-06 TABLET BY ity of tablet 00:00: MOUTH [place] 00 EVERY Medical NIGHT Branch TRAZODONE 2021-09 Yes [id number] TAKE 1 U nivers 100 mg 2-06 TABLET BY ity of tablet 00:00: MOUTH [place] 00 EVERY Medical NIGHT Branch TRAZODONE 2021-09 Yes [id number] TAKE 1 U nivers 100 mg 2-06 TABLET BY ity of tablet 00:00: MOUTH [place] 00 EVERY Medical NIGHT Branch TRAZODONE 2021-09 Yes [id number] TAKE 1 U nivers 100 mg 2-06 TABLET BY ity of tablet 00:00: MOUTH [place] 00 EVERY Medical NIGHT Branch TRAZODONE 2021-09 Yes [id number] TAKE 1 U nivers 100 mg 2-06 TABLET BY ity of tablet 00:00: MOUTH [place] 00 EVERY Medical NIGHT Branch TRAZODONE 2021-09 Yes [id number] TAKE 1 U nivers 100 mg 2-06 TABLET BY ity of tablet 00:00: MOUTH [place] 00 EVERY Medical NIGHT Branch TRAZODONE 2021-09 Yes [id number] TAKE 1 U nivers 100 mg 2-06 TABLET BY ity of tablet 00:00: MOUTH [place] EVERY Medical NIGHT Branch TRAZODONE 2021-09 Yes [id number] TAKE 1 U nivers 100 mg 2-06 TABLET BY ity of tablet 00:00: MOUTH [place] 00 EVERY Medical NIGHT Branch TRAZODONE 2021-09 Yes [id number] TAKE 1 U nivers 100 mg 2-06 TABLET BY ity of tablet 00:00: MOUTH [place] 00 EVERY Medical NIGHT Branch TRAZODONE 2021-09 Yes [id number] TAKE 1 U nivers 100 mg 2-06 TABLET BY ity of tablet 00:00: MOUTH [place] EVERY Medical NIGHT Branch TRAZODONE 2021-09 Yes [id number] TAKE 1 U nivers 100 mg 2-06 TABLET BY ity of tablet 00:00: MOUTH [place] 00 EVERY Medical NIGHT Branch TRAZODONE 2021-09 Yes [id number] TAKE 1 U nivers 100 mg 2-06 TABLET BY ity of tablet 00:00: MOUTH [place] 00 EVERY Medical NIGHT Branch TRAZODONE 2021-09 Yes [id number] TAKE 1 U nivers 100 mg 2-06 TABLET BY ity of tablet 00:00: MOUTH [place] 00 EVERY Medical NIGHT Branch TRAZODONE 2021-09 Yes [id number] TAKE 1 U nivers 100 mg 2-06 TABLET BY ity of tablet 00:00: MOUTH [place] 00 EVERY Medical NIGHT Branch TRAZODONE 2021-09 Yes [id number] TAKE 1 U nivers 100 mg 2-06 TABLET BY ity of tablet 00:00: MOUTH [place] 00 EVERY Medical NIGHT Branch TRAZODONE 2021-09 Yes [id number] TAKE 1 U nivers 100 mg 2-06 TABLET BY ity of tablet 00:00: MOUTH [place] 00 EVERY Medical NIGHT Branch TRAZODONE 2021-09 Yes [id number] TAKE 1 U nivers 100 mg 2-06 TABLET BY ity of tablet 00:00: MOUTH [place] 00 EVERY Medical NIGHT Branch TRAZODONE 2021-09 Yes [id number] TAKE 1 U nivers 100 mg 2-06 TABLET BY ity of tablet 00:00: MOUTH [place] 00 EVERY Medical NIGHT Branch TRAZODONE 2021-09 Yes [id number] TAKE 1 U nivers 100 mg 2-06 TABLET BY ity of tablet 00:00: MOUTH [place] 00 EVERY Medical NIGHT Branch TRAZODONE 2021-09 Yes [id number] TAKE 1 U nivers 100 mg 2-06 TABLET BY ity of tablet 00:00: MOUTH [place] 00 EVERY Medical NIGHT Branch TRAZODONE 2021-09 Yes [id number] TAKE 1 U nivers 100 mg 2-06 TABLET BY ity of tablet 00:00: MOUTH [place] 00 EVERY Medical NIGHT Branch TRAZODONE 2021-09 Yes [id number] TAKE 1 U nivers 100 mg 2-06 TABLET BY ity of tablet 00:00: MOUTH [place] 00 EVERY Medical NIGHT Branch TRAZODONE 2021-09 Yes [id number] TAKE 1 U nivers 100 mg 2-06 TABLET BY ity of tablet 00:00: MOUTH [place] 00 EVERY Medical NIGHT Branch TRAZODONE 2021-09 Yes [id number] TAKE 1 U nivers 100 mg 2-06 TABLET BY ity of tablet 00:00: MOUTH [place] 00 EVERY Medical NIGHT Branch TRAZODONE 2021-09 Yes [id number] TAKE 1 U nivers 100 mg 2-06 TABLET BY ity of tablet 00:00: MOUTH [place] 00 EVERY Medical NIGHT Branch TRAZODONE 2021-09 Yes [id number] TAKE 1 U nivers 100 mg 2-06 TABLET BY ity of tablet 00:00: MOUTH [place] 00 EVERY Medical NIGHT Branch TRAZODONE 2021-09 Yes [id number] TAKE 1 U nivers 100 mg 2-06 TABLET BY ity of tablet 00:00: MOUTH [place] 00 EVERY Medical NIGHT Branch TRAZODONE 2021-09 Yes [id number] TAKE 1 U nivers 100 mg 2-06 TABLET BY ity of tablet 00:00: MOUTH [place] 00 EVERY Medical NIGHT Branch TRAZODONE 2021-09 Yes [id number] TAKE 1 U nivers 100 mg 2-06 TABLET BY ity of tablet 00:00: MOUTH [place] 00 EVERY Medical NIGHT Branch TRAZODONE 2021-09 Yes [id number] TAKE 1 U nivers 100 mg 2-06 TABLET BY ity of tablet 00:00: MOUTH [place] 00 EVERY Medical NIGHT Branch TRAZODONE 2021-09 Yes [id number] TAKE 1 U nivers 100 mg 2-06 TABLET BY ity of tablet 00:00: MOUTH [place] 00 EVERY Medical NIGHT Branch TRAZODONE 2021-09 Yes [id number] TAKE 1 U nivers 100 mg 2-06 TABLET BY ity of tablet 00:00: MOUTH [place] 00 EVERY Medical NIGHT Branch TRAZODONE 2021-09 Yes [id number] TAKE 1 U nivers 100 mg 2-06 TABLET BY ity of tablet 00:00: MOUTH [place] 00 EVERY Medical NIGHT Branch TRAZODONE 2021-09 Yes [id number] TAKE 1 U nivers 100 mg 2-06 TABLET BY ity of tablet 00:00: MOUTH [place] 00 EVERY Medical NIGHT Branch TRAZODONE 2021-09 Yes [id number] TAKE 1 U nivers 100 mg 2-06 TABLET BY ity of tablet 00:00: MOUTH [place] 00 EVERY Medical NIGHT Branch TRAZODONE 2021-09 Yes [id number] TAKE 1 U nivers 100 mg 2-06 TABLET BY ity of tablet 00:00: MOUTH [place] 00 EVERY Medical NIGHT Branch TRAZODONE 2021-09 Yes [id number] TAKE 1 U nivers 100 mg 2-06 TABLET BY ity of tablet 00:00: MOUTH [place] 00 EVERY Medical NIGHT Branch TRAZODONE 2021-09 Yes [id number] TAKE 1 U nivers 100 mg 2-06 TABLET BY ity of tablet 00:00: MOUTH [place] 00 EVERY Medical NIGHT Branch TRAZODONE 2021-09 Yes [id number] TAKE 1 U nivers 100 mg 2-06 TABLET BY ity of tablet 00:00: MOUTH [place] 00 EVERY Medical NIGHT Branch TRAZODONE 2021-09- No [id number] TAKE 1 [facility] 100 mg 2-06 08-22 TABLET BY ity of tablet 00:00: 00:00 MOUTH [place] 00 :00 EVERY Medical NIGHT Branch TRAZODONE 2021-09- No [id number] TAKE 1 [facility] 100 mg 2-06 08-22 TABLET BY ity of tablet 00:00: 00:00 MOUTH [place] 00 :00 EVERY Medical NIGHT Branch OZEMPIC 2021-09 Yes [id number] INJECT Univ ers 0.25 mg or 1-28 0.5MG ity of 0.5 mg(2 00:00: [place] mg/1.5 mL) 00 SKIN EVERY Med ical PnIj [facility] 2021-09 Yes [id number] INJECT Univ ers 0.25 mg or 1-28 0.5MG ity of 0.5 mg(2 00:00: [place] mg/1.5 mL) 00 SKIN EVERY Med ical PnIj [facility] 2021-09 Yes [id number] INJECT Univ ers 0.25 mg or 1-28 0.5MG ity of 0.5 mg(2 00:00: [place] mg/1.5 mL) 00 SKIN EVERY Med ical PnIj [facility] 2021-09 Yes [id number] INJECT Univ ers 0.25 mg or 1-28 0.5MG ity of 0.5 mg(2 00:00: [place] THE [place] mg/1.5 mL) 00 SKIN EVERY Med ical PnIj [facility] 2021-09 Yes [id number] INJECT Univ ers 0.25 mg or 1-28 0.5MG ity of 0.5 mg(2 00:00: [place] mg/1.5 mL) 00 SKIN EVERY Med ical PnIj [facility] 2021-09 Yes [id number] INJECT Univ ers 0.25 mg or 1-28 0.5MG ity of 0.5 mg(2 00:00: [place] THE [place] mg/1.5 mL) 00 SKIN EVERY Med ical PnIj [facility] 2021-09 Yes [id number] INJECT Univ ers 0.25 mg or 1-28 0.5MG ity of 0.5 mg(2 00:00: [place]ER THE [place] mg/1.5 mL) 00 SKIN EVERY Med ical PnIj [facility] 2021-09 Yes [id number] INJECT Univ ers 0.25 mg or 1-28 0.5MG ity of 0.5 mg(2 00:00: [place] THE [place] mg/1.5 mL) 00 SKIN EVERY Med ical PnIj [facility] 2021-09 Yes [id number] INJECT Univ ers 0.25 mg or 1-28 0.5MG ity of 0.5 mg(2 00:00: [place] THE [place] mg/1.5 mL) 00 SKIN EVERY Med ical PnIj [facility] 2021-09 Yes [id number] INJECT Univ ers 0.25 mg or 1-28 0.5MG ity of 0.5 mg(2 00:00: [place] THE [place] mg/1.5 mL) 00 SKIN EVERY Med ical PnIj [facility] 2021-09 Yes [id number] INJECT Univ ers 0.25 mg or 1-28 0.5MG ity of 0.5 mg(2 00:00: [place] THE [place] mg/1.5 mL) 00 SKIN EVERY Med ical PnIj [facility] 2021-09 Yes [id number] INJECT Univ ers 0.25 mg or 1-28 0.5MG ity of 0.5 mg(2 00:00: [place] THE [place] mg/1.5 mL) 00 SKIN EVERY Med ical PnIj [facility] 2021-09 Yes [id number] INJECT Univ ers 0.25 mg or 1-28 0.5MG ity of 0.5 mg(2 00:00: [place] THE [place] mg/1.5 mL) 00 SKIN EVERY Med ical PnIj [facility] 2021-09 Yes [id number] INJECT Univ ers 0.25 mg or 1-28 0.5MG ity of 0.5 mg(2 00:00: [place]ER THE [place] mg/1.5 mL) 00 SKIN EVERY Med ical PnIj [facility] 2021-09 Yes [id number] INJECT Univ ers 0.25 mg or 1-28 0.5MG ity of 0.5 mg(2 00:00: [place] THE [place] mg/1.5 mL) 00 SKIN EVERY Med ical PnIj [facility] 2021-09 Yes [id number] INJECT Univ ers 0.25 mg or 1-28 0.5MG ity of 0.5 mg(2 00:00: [place] THE [place] mg/1.5 mL) 00 SKIN EVERY Med ical PnIj [facility] 2021-09 Yes [id number] INJECT Univ ers 0.25 mg or 1-28 0.5MG ity of 0.5 mg(2 00:00: [place] THE [place] mg/1.5 mL) 00 SKIN EVERY Med ical PnIj [facility] 2021-09 Yes [id number] INJECT Univ ers 0.25 mg or 1-28 0.5MG ity of 0.5 mg(2 00:00: [place] mg/1.5 mL) 00 SKIN EVERY Med ical PnIj [facility] 2021-09 Yes [id number] INJECT Univ ers 0.25 mg or 1-28 0.5MG ity of 0.5 mg(2 00:00: [place] THE [place] mg/1.5 mL) 00 SKIN EVERY Med ical PnIj [facility] 2021-09 Yes [id number] INJECT Univ ers 0.25 mg or 1-28 0.5MG ity of 0.5 mg(2 00:00: [place] THE [place] mg/1.5 mL) 00 SKIN EVERY Med ical PnIj [facility] 2021-09 Yes [id number] INJECT Univ ers 0.25 mg or 1-28 0.5MG ity of 0.5 mg(2 00:00: [place] THE [place] mg/1.5 mL) 00 SKIN EVERY Med ical PnIj [facility] 2021-09 Yes [id number] INJECT Univ ers 0.25 mg or 1-28 0.5MG ity of 0.5 mg(2 00:00: [place] THE [place] mg/1.5 mL) 00 SKIN EVERY Med ical PnIj [facility] 2021-09 Yes [id number] INJECT Univ ers 0.25 mg or 1-28 0.5MG ity of 0.5 mg(2 00:00: [place] THE [place] mg/1.5 mL) 00 SKIN EVERY Med ical PnIj [facility] 2021-09 Yes [id number] INJECT Univ ers 0.25 mg or 1-28 0.5MG ity of 0.5 mg(2 00:00: [place] THE [place] mg/1.5 mL) 00 SKIN EVERY Med ical PnIj [facility] 2021-09 Yes [id number] INJECT Univ ers 0.25 mg or 1-28 0.5MG ity of 0.5 mg(2 00:00: [place] THE [place] mg/1.5 mL) 00 SKIN EVERY Med ical PnIj [facility] 2021-09 Yes [id number] INJECT Univ ers 0.25 mg or 1-28 0.5MG ity of 0.5 mg(2 00:00: [place] THE [place] mg/1.5 mL) 00 SKIN EVERY Med ical PnIj [facility] 2021-09 Yes [id number] INJECT Univ ers 0.25 mg or 1-28 0.5MG ity of 0.5 mg(2 00:00: [place] mg/1.5 mL) 00 SKIN EVERY Med ical PnIj [facility] 2021-09 Yes [id number] INJECT Univ ers 0.25 mg or 1-28 0.5MG ity of 0.5 mg(2 00:00: [place] THE [place] mg/1.5 mL) 00 SKIN EVERY Med ical PnIj [facility] 2021-09 Yes [id number] INJECT Univ ers 0.25 mg or 1-28 0.5MG ity of 0.5 mg(2 00:00: [place] THE [place] mg/1.5 mL) 00 SKIN EVERY Med ical PnIj [facility] 2021-09 Yes [id number] INJECT Univ ers 0.25 mg or 1-28 0.5MG ity of 0.5 mg(2 00:00: [place] THE [place] mg/1.5 mL) 00 SKIN EVERY Med ical PnIj [facility] 2021-09 Yes [id number] INJECT Univ ers 0.25 mg or 1-28 0.5MG ity of 0.5 mg(2 00:00: [place] mg/1.5 mL) 00 SKIN EVERY Med ical PnIj [facility] 2021-09 Yes [id number] INJECT Univ ers 0.25 mg or 1-28 0.5MG ity of 0.5 mg(2 00:00: [place] THE [place] mg/1.5 mL) 00 SKIN EVERY Med ical PnIj [facility] 2021-09 Yes [id number] INJECT Univ ers 0.25 mg or 1-28 0.5MG ity of 0.5 mg(2 00:00: [place] THE [place] mg/1.5 mL) 00 SKIN EVERY Med ical PnIj [facility] 2021-09 Yes [id number] INJECT Univ ers 0.25 mg or 1-28 0.5MG ity of 0.5 mg(2 00:00: [place] THE [place] mg/1.5 mL) 00 SKIN EVERY Med ical PnIj [facility] 2021-09 Yes [id number] INJECT Univ ers 0.25 mg or 1-28 0.5MG ity of 0.5 mg(2 00:00: [place] mg/1.5 mL) 00 SKIN EVERY Med ical PnIj [facility] 2021-09 Yes [id number] INJECT Univ ers 0.25 mg or 1-28 0.5MG ity of 0.5 mg(2 00:00: [place] mg/1.5 mL) 00 SKIN EVERY Med ical PnIj [facility] 2021-09 Yes [id number] INJECT Univ ers 0.25 mg or 1-28 0.5MG ity of 0.5 mg(2 00:00: [place] mg/1.5 mL) 00 SKIN EVERY Med ical PnIj [facility] 2021-09 Yes [id number] INJECT Univ ers 0.25 mg or 1-28 0.5MG ity of 0.5 mg(2 00:00: [place] THE [place] mg/1.5 mL) 00 SKIN EVERY Med ical PnIj [facility] 2021-09 Yes [id number] INJECT Univ ers 0.25 mg or 1-28 0.5MG ity of 0.5 mg(2 00:00: [place] mg/1.5 mL) 00 SKIN EVERY Med ical PnIj [facility] 2021-09 Yes [id number] INJECT Univ ers 0.25 mg or 1-28 0.5MG ity of 0.5 mg(2 00:00: [place] mg/1.5 mL) 00 SKIN EVERY Med ical PnIj [facility] 2021-09- No [id number] INJECT Uni vers 0.25 mg or 1-28 04-20 0.5MG ity of 0.5 mg(2 00:00: 00:00 UNDER THE [place] mg/1.5 mL) 00 :00 SKIN EVERY Med ical PnIj [facility] 2021-09- No [id number] INJECT Uni vers 0.25 mg or 10-22 04-20 0.5MG ity of 0.5 mg(2 00:00: 00:00 UNDER THE [place] mg/1.5 mL) 00 :00 SKIN EVERY Med ical PnIj WEEK Branch METOPROLOL 2021-09 Yes [id number] TAKE 1/2 [facility] TARTRATE 25 1-08 TABLET BY ity of mg tablet 00:00: MOUTH [place] 00 TWICE Medical DAILY Branch METOPROLOL 2021-09 Yes [id number] TAKE 1/2 [facility] TARTRATE 25 1-08 TABLET BY ity of mg tablet 00:00: MOUTH [place] 00 TWICE Medical DAILY Branch METOPROLOL 2021-09 Yes [id number] TAKE 1/2 [facility] TARTRATE 25 1-08 TABLET BY ity of mg tablet 00:00: MOUTH [place] 00 TWICE Medical DAILY Branch METOPROLOL 2021-09 Yes [id number] TAKE 1/2 [facility] TARTRATE 25 1-08 TABLET BY ity of mg tablet 00:00: MOUTH [place] 00 TWICE Medical DAILY Branch METOPROLOL 2021-09 Yes [id number] TAKE 1/2 [facility] TARTRATE 25 1-08 TABLET BY ity of mg tablet 00:00: MOUTH [place] 00 TWICE Medical DAILY Branch METOPROLOL 2021-09 Yes [id number] TAKE 1/2 [facility] TARTRATE 25 1-08 TABLET BY ity of mg tablet 00:00: MOUTH [place] 00 TWICE Medical DAILY Branch METOPROLOL 2021-09 Yes [id number] TAKE 1/2 Univers TARTRATE 25 1-08 TABLET BY ity of mg tablet 00:00: MOUTH [place] 00 TWICE Medical DAILY Branch METOPROLOL 2021-09 Yes [id number] TAKE 1/2 Univers TARTRATE 25 1-08 TABLET BY ity of mg tablet 00:00: MOUTH [place] 00 TWICE Medical DAILY Branch METOPROLOL 2021-09 Yes [id number] TAKE 1/2 Univers TARTRATE 25 1-08 TABLET BY ity of mg tablet 00:00: MOUTH [place] 00 TWICE Medical DAILY Branch METOPROLOL 2021-09 Yes [id number] TAKE 1/2 Univers TARTRATE 25 1-08 TABLET BY ity of mg tablet 00:00: MOUTH [place] 00 TWICE Medical DAILY Branch METOPROLOL 2021-09 Yes [id number] TAKE 1/2 Univers TARTRATE 25 1-08 TABLET BY ity of mg tablet 00:00: MOUTH [place] 00 TWICE Medical DAILY Branch METOPROLOL 2021-09 Yes [id number] TAKE 1/2 Univers TARTRATE 25 1-08 TABLET BY ity of mg tablet 00:00: MOUTH [place] 00 TWICE Medical DAILY Branch METOPROLOL 2021-09 Yes [id number] TAKE 1/2 Univers TARTRATE 25 1-08 TABLET BY ity of mg tablet 00:00: MOUTH [place] 00 TWICE Medical DAILY Branch METOPROLOL 2021-09 Yes [id number] TAKE 1/2 Univers TARTRATE 25 1-08 TABLET BY ity of mg tablet 00:00: MOUTH [place] 00 TWICE Medical DAILY Branch METOPROLOL 2021-09- No [id number] TAKE 1/2 Univers TARTRATE 25 10-02 TABLET BY it y of mg tablet 00:00: 00:00 MOUTH [place] 00 :00 TWICE Medical DAILY Branch METOPROLOL 2021-09- No [id number] TAKE 1/2 Univers TARTRATE 25 10-02 TABLET BY it y of mg tablet 00:00: 00:00 MOUTH [place] 00 :00 TWICE Medical DAILY Branch METOPROLOL 2021-09- No [id number] TAKE 1/2 [facility] TARTRATE 25 10-02 TABLET BY it y of mg tablet 00:00: 00:00 MOUTH [place] 00 :00 TWICE Medical DAILY Branch METOPROLOL 2021-09- No [id number] TAKE 1/2 [facility] TARTRATE 25 10-02 TABLET BY it y of mg tablet 00:00: 00:00 MOUTH [place] 00 :00 TWICE Medical DAILY Branch busPIRone 2021-09 Yes [id number] 7.5mg Take 0.5-1 [facility] 15 mg 0-11 tablets by ity of tablet 00:00: mouth 2 [place] 00 (two) Medical times Branch daily as needed (anxiety). carBAMazepi 2021-09 Yes [id number] 200mg Take 2 [facility] ne 100 mg 0-11 tablets by ity of 12 hr 00:00: mouth at [place] tablet 00 bedtime. Medical Branch DULoxetine 2021-09 Yes [id number] 60mg Take 1 [facility] 60 mg 0-11 capsule by ity of capsule 00:00: mouth in [place] 00 the Medical morning. Branch ADDITIONAL REFILLS PER PSYCHIATRY fluticasone 2021-09 Yes [id number] 1{spray Use 1-2 [facility] propionate 0-11 } Sprays in ity of 50 00:00: each [place] mcg/actuati 00 nostril in Me dical on nasal the Branch spray morning. furosemide 2021-09 Yes [id number] 40mg Take 1 [facility] 40 mg 0-11 tablet by ity of tablet 00:00: mouth [place] 00 every Medical morning Branch and evening. gabapentin 2021-09 Yes [id number] 300mg Take 1 [facility] 300 mg 0-11 capsule by ity of capsule 00:00: mouth in [place] 00 the Medical morning Branch and 1 capsule in the evening. levothyroxi 2021-09 Yes [id number] 175ug Take 1 Univers ne 175 mcg 0-11 tablet by ity of tablet 00:00: mouth [place] 00 every Medical morning. Branch MUST BE SEEN FOR FURTHER REFILLS KCL 10 mEq 2021-09 Yes [id number] 20meq Take 2 Univers tablet 0-11 tablets by ity of 00:00: mouth in [place] 00 the Medical morning Branch and 2 tablets in the evening. Insulin 2021-09 Yes [id number] ADMINISTER Univers Glargine 0-11 36 UNITS ity of (LANTUS 00:00: UNDER THE [place] SOLOSTAR 00 SKIN TWICE Medic al U-100 DAILY Branch INSULIN) 100 unit/mL (3 mL) injection Insulin 2021-09 Yes [id number] Use as Univ ers [place], 0-11 directed ity of Disposable, 00:00: to inject [place] (PEN 00 insulin Medical NEEDLE) 32 daily; Branch gauge x ICD-10 " Ndle code E11.8 loratadine 2021-09 Yes [id number] 10mg Take 1 U nivers 10 mg 0-11 tablet by ity of tablet 00:00: mouth at [place] 00 bedtime. Medical Branch metoprolol 2021-09 Yes [id number] 12.5mg Take 0.5 Univers tartrate 25 0-11 tablets by it y of mg tablet 00:00: mouth in [facility] s 00 the Medical morning Branch and 0.5 tablets in the evening. omeprazole 2021-09 Yes [id number] 40mg Take 1 [facility] 40 mg 0-11 capsule by ity of capsule 00:00: mouth in [place] 00 the Medical morning. Branch ondansetron 2021-09 Yes [id number] TAKE 1 Univers 4 mg tablet 0-11 TABLET BY ity of 00:00: MOUTH [place] 00 EVERY 8 Medical HOURS Branch NEEDED FOR NAUSEA OR VOMITING semaglutide 2021-09 Yes [id number] INJECT Univers (OZEMPIC) 0-11 0.5MG ity of 0.25 mg or 00:00: [place] 0.5 mg(2 00 SKIN EVERY Medic al mg/1.5 mL) WEEK Branch PnIj prasugreL 2021-09 Yes [id number] 10mg Take 1 [facility] [place] 10 mg 0-11 tablet by [facility] of tablet 00:00: mouth in [place] 00 the Medical morning. Branch Appointmen t needed. Please contact office. QUEtiapine 2021-09 Yes [id number] 400mg Take 1 [facility] 400 mg 0-11 tablet by [facility] tablet 00:00: mouth at [place] [address] bedtime. Medical ADDITIONAL Branch REFILLS PER PSYCHIATRY rosuvastati 2021-09 Yes [id number] 20mg Take 1 [facility] n 20 mg 0-11 tablet by [facility] tablet 00:00: mouth at [place] [address] bedtime. Medical Branch spironolact 2021-09 Yes [id number] 25mg Take 1 [facility] one 25 mg 0-11 tablet by ity o f tablet 00:00: mouth in [place] 00 the Medical morning. Branch traZODone 2021-09 Yes [id number] TAKE 1 [facility] 100 mg 0-11 TABLET BY [facility] tablet 00:00: MOUTH [place] 00 EVERY Medical NIGHT Branch busPIRone 2021-09 Yes [id number] 7.5mg Take 0.5-1 [facility] 15 mg 0-11 tablets by [facility] tablet 00:00: mouth 2 [place] 00 (two) Medical times Branch daily as needed (anxiety). carBAMazepi 2021-09 Yes [id number] 200mg Take 2 [facility] ne 100 mg 0-11 tablets by ity of 12 hr 00:00: mouth at [facility] 00 bedtime. Medical Branch DULoxetine 2021-09 Yes [id number] 60mg Take 1 [facility] 60 mg 0-11 capsule by ity of capsule 00:00: mouth in [place] 00 the Medical morning. Branch ADDITIONAL REFILLS PER PSYCHIATRY fluticasone 2021-09 Yes [id number] 1{spray Use 1-2 [facility] propionate 0-11 } Sprays in ity of 50 00:00: each [place] mcg/actuati 00 nostril in [place] nasal the Branch spray morning. furosemide 2021-09 Yes [id number] 40mg Take 1 [facility] 40 mg 0-11 tablet by ity of tablet 00:00: mouth [place] 00 every Medical morning Branch and evening. gabapentin 2021-09 Yes [id number] 300mg Take 1 [facility] 300 mg 0-11 capsule by ity of capsule 00:00: mouth in [place] 00 the Medical morning Branch and 1 capsule in the evening. levothyroxi 2021-09 Yes [id number] 175ug Take 1 [facility] ne 175 mcg 0-11 tablet by ity of tablet 00:00: mouth [place] 00 every Medical morning. Branch MUST BE SEEN FOR FURTHER REFILLS KCL 10 mEq 2021-09 Yes [id number] 20meq Take 2 [facility] tablet 0-11 tablets by ity of 00:00: mouth in [place] 00 the Medical morning Branch and 2 tablets in the evening. Insulin 2021-09 Yes [id number] ADMINISTER [facility] Glargine 0-11 36 UNITS ity of (LANTUS 00:00: UNDER THE [place] SOLOSTAR 00 SKIN TWICE Medic al U-100 DAILY Branch INSULIN) 100 unit/mL (3 mL) injection Insulin 2021-09 Yes [id number] Use as [facility] ers [place], 0-11 directed ity of Disposable, 00:00: to inject [place] (PEN 00 insulin Medical NEEDLE) 32 daily; Branch gauge x ICD-10 " Ndle code E11.8 loratadine 2021-09 Yes [id number] 10mg Take 1 U nivers 10 mg 0-11 tablet by ity of tablet 00:00: mouth at [place] 00 bedtime. Medical Branch metoprolol 2021-09 Yes [id number] 12.5mg Take 0.5 [facility] tartrate 25 0-11 tablets by it y of mg tablet 00:00: mouth in [facility] 00 the Medical morning Branch and 0.5 tablets in the evening. omeprazole 2021-09 Yes [id number] 40mg Take 1 [facility] 40 mg 0-11 capsule by ity of capsule 00:00: mouth in [place] 00 the Medical morning. Branch ondansetron 2021-09 Yes [id number] TAKE 1 [facility] 4 mg tablet 0-11 TABLET BY ity of 00:00: MOUTH [place] 00 EVERY 8 Medical HOURS Branch NEEDED FOR NAUSEA OR VOMITING semaglutide 2021-09 Yes [id number] INJECT [facility] (OZEMPIC) 0-11 0.5MG ity of 0.25 mg or 00:00: UNDER THE [place] 0.5 mg(2 00 SKIN EVERY Medic al mg/1.5 mL) WEEK Branch PnIj prasugreL 2021-09 Yes [id number] 10mg Take 1 Un pippa 10 mg 0-11 tablet by ity of tablet 00:00: mouth in [place] 00 the Medical morning. Branch Appointmen t needed. Please contact office. QUEtiapine 2021-09 Yes [id number] 400mg Take 1 [facility] 400 mg 0-11 tablet by ity of tablet 00:00: mouth at [place] [address] bedtime. Medical ADDITIONAL Branch REFILLS PER PSYCHIATRY rosuvastati 2021-09 Yes [id number] 20mg Take 1 [facility] n 20 mg 0-11 tablet by ity of tablet 00:00: mouth at [place] [address] bedtime. Medical Branch spironolact 2021-09 Yes [id number] 25mg Take 1 [facility] one 25 mg 0-11 tablet by ity o f tablet 00:00: mouth in [place] 00 the Medical morning. Branch traZODone 2021-09 Yes [id number] TAKE 1 U nivers 100 mg 0-11 TABLET BY ity of tablet 00:00: MOUTH [place] 00 EVERY Medical NIGHT Branch busPIRone 2021-09 Yes [id number] 7.5mg Take 0.5-1 [facility] 15 mg 0-11 tablets by ity of tablet 00:00: mouth 2 [place] 00 (two) Medical times Branch daily as needed (anxiety). carBAMazepi 2021-09 Yes [id number] 200mg Take 2 [facility] ne 100 mg 0-11 tablets by ity of 12 hr 00:00: mouth at [facility] 00 bedtime. Medical Branch DULoxetine 2021-09 Yes [id number] 60mg Take 1 [facility] 60 mg 0-11 capsule by ity of capsule 00:00: mouth in [place] 00 the Medical morning. Branch ADDITIONAL REFILLS PER PSYCHIATRY fluticasone 2021-09 Yes [id number] 1{spray Use 1-2 [facility] propionate 0-11 } Sprays in ity of 50 00:00: each [place] mcg/actuati 00 nostril in [place] on nasal the Branch spray morning. furosemide 2021-09 Yes [id number] 40mg Take 1 [facility] 40 mg 0-11 tablet by ity of tablet 00:00: mouth [place] 00 every Medical morning Branch and evening. gabapentin 2021-09 Yes [id number] 300mg Take 1 [facility] 300 mg 0-11 capsule by ity of capsule 00:00: mouth in [place] 00 the Medical morning Branch and 1 capsule in the evening. levothyroxi 2021-09 Yes [id number] 175ug Take 1 [facility] ne 175 mcg 0-11 tablet by ity of tablet 00:00: mouth [place] 00 every Medical morning. Branch MUST BE SEEN FOR FURTHER REFILLS KCL 10 mEq 2021-09 Yes [id number] 20meq Take 2 [facility] tablet 0-11 tablets by ity of 00:00: mouth in [place] 00 the Medical morning Branch and 2 tablets in the evening. Insulin 2021-09 Yes [id number] ADMINISTER [facility] Glargine 0-11 36 UNITS ity of (LANTUS 00:00: UNDER THE [place] SOLOSTAR 00 SKIN TWICE Medic al U-100 DAILY Branch INSULIN) 100 unit/mL (3 mL) injection Insulin 2021-09 Yes [id number] Use as [facility] ers [place], 0-11 directed ity of Disposable, 00:00: to inject [place] (PEN 00 insulin Medical NEEDLE) 32 daily; Branch gauge x ICD-10 " Ndle code E11.8 loratadine 2021-09 Yes [id number] 10mg Take 1 U nivers 10 mg 0-11 tablet by ity of tablet 00:00: mouth at [place] 00 bedtime. Medical Branch metoprolol 2021-09 Yes [id number] 12.5mg Take 0.5 [facility] tartrate 25 0-11 tablets by it y of mg tablet 00:00: mouth in [facility] 00 the Medical morning Branch and 0.5 tablets in the evening. omeprazole 2021-09 Yes [id number] 40mg Take 1 [facility] 40 mg 0-11 capsule by ity of capsule 00:00: mouth in [place] 00 the Medical morning. Branch ondansetron 2021-09 Yes [id number] TAKE 1 [facility] 4 mg tablet 0-11 TABLET BY ity of 00:00: MOUTH [place] [address] EVERY 8 Medical HOURS Branch NEEDED FOR NAUSEA OR VOMITING semaglutide 2021-09 Yes [id number] INJECT [facility] (OZEMPIC) 0-11 0.5MG ity of 0.25 mg or 00:00: UNDER THE [place] 0.5 mg(2 00 SKIN EVERY Medic al mg/1.5 mL) WEEK Branch PnIj prasugreL 2021-09 Yes [id number] 10mg Take 1 Un [place] 10 mg 0-11 tablet by ity of tablet 00:00: mouth in [place] 00 the Medical morning. Branch Appointmen t needed. Please contact office. QUEtiapine 2021-09 Yes [id number] 400mg Take 1 [facility] 400 mg 0-11 tablet by ity of tablet 00:00: mouth at [place] [address] bedtime. Medical ADDITIONAL Branch REFILLS PER PSYCHIATRY rosuvastati 2021-09 Yes [id number] 20mg Take 1 [facility] n 20 mg 0-11 tablet by ity of tablet 00:00: mouth at [place] [address] bedtime. Medical Branch spironolact 2021-09 Yes [id number] 25mg Take 1 [facility] one 25 mg 0-11 tablet by ity o f tablet 00:00: mouth in [place] 00 the Medical morning. Branch traZODone 2021-09 Yes [id number] TAKE 1 U nivers 100 mg 0-11 TABLET BY ity of tablet 00:00: MOUTH [place] 00 EVERY Medical NIGHT Branch busPIRone 2021-09 Yes [id number] 7.5mg Take 0.5-1 [facility] 15 mg 0-11 tablets by ity of tablet 00:00: mouth 2 [place] 00 (two) Medical times Branch daily as needed (anxiety). carBAMazepi 2021-09 Yes [id number] 200mg Take 2 [facility] ne 100 mg 0-11 tablets by ity of 12 hr 00:00: mouth at [facility] 00 bedtime. Medical Branch DULoxetine 2021-09 Yes [id number] 60mg Take 1 [facility] 60 mg 0-11 capsule by ity of capsule 00:00: mouth in [place] 00 the Medical morning. Branch ADDITIONAL REFILLS PER PSYCHIATRY fluticasone 2021-09 Yes [id number] 1{spray Use 1-2 [facility] propionate 0-11 } Sprays in ity of 50 00:00: each [place] mcg/actuati 00 nostril in [place] on nasal the Branch spray morning. furosemide 2021-09 Yes [id number] 40mg Take 1 [facility] 40 mg 0-11 tablet by ity of tablet 00:00: mouth [place] 00 every Medical morning Branch and evening. gabapentin 2021-09 Yes [id number] 300mg Take 1 [facility] 300 mg 0-11 capsule by ity of capsule 00:00: mouth in [place] 00 the Medical morning Branch and 1 capsule in the evening. levothyroxi 2021-09 Yes [id number] 175ug Take 1 [facility] ne 175 mcg 0-11 tablet by ity of tablet 00:00: mouth [place] 00 every Medical morning. Branch MUST BE SEEN FOR FURTHER REFILLS KCL 10 mEq 2021-09 Yes [id number] 20meq Take 2 [facility] tablet 0-11 tablets by ity of 00:00: mouth in [place] 00 the Medical morning Branch and 2 tablets in the evening. Insulin 2021-09 Yes [id number] ADMINISTER [facility] Glargine 0-11 36 UNITS ity of (LANTUS 00:00: UNDER THE [place] SOLOSTAR 00 SKIN TWICE Medic al U-100 DAILY Branch INSULIN) 100 unit/mL (3 mL) injection Insulin 2021-09 Yes [id number] Use as [facility] ers [place], 0-11 directed ity of Disposable, 00:00: to inject [place] (PEN 00 insulin Medical NEEDLE) 32 daily; Branch gauge x ICD-10 " Ndle code E11.8 loratadine 2021-09 Yes [id number] 10mg Take 1 U nivers 10 mg 0-11 tablet by ity of tablet 00:00: mouth at [place] 00 bedtime. Medical Branch metoprolol 2021-09 Yes [id number] 12.5mg Take 0.5 [facility] tartrate 25 0-11 tablets by it y of mg tablet 00:00: mouth in [facility] 00 the Medical morning Branch and 0.5 tablets in the evening. omeprazole 2021-09 Yes [id number] 40mg Take 1 [facility] 40 mg 0-11 capsule by ity of capsule 00:00: mouth in [place] 00 the Medical morning. Branch ondansetron 2021-09 Yes [id number] TAKE 1 [facility] 4 mg tablet 0-11 TABLET BY ity of 00:00: MOUTH [place] 00 EVERY 8 Medical HOURS Branch NEEDED FOR NAUSEA OR VOMITING semaglutide 2021-09 Yes [id number] INJECT [facility] (OZEMPIC) 0-11 0.5MG ity of 0.25 mg or 00:00: UNDER THE [place] 0.5 mg(2 00 SKIN EVERY Medic al mg/1.5 mL) WEEK Branch PnIj prasugreL 2021-09 Yes [id number] 10mg Take 1 Un pippa 10 mg 0-11 tablet by ity of tablet 00:00: mouth in [place] 00 the Medical morning. Branch Appointmen t needed. Please contact office. QUEtiapine 2021-09 Yes [id number] 400mg Take 1 [facility] 400 mg 0-11 tablet by ity of tablet 00:00: mouth at [place] [address] bedtime. Medical ADDITIONAL Branch REFILLS PER PSYCHIATRY rosuvastati 2021-09 Yes [id number] 20mg Take 1 [facility] n 20 mg 0-11 tablet by ity of tablet 00:00: mouth at [place] [address] bedtime. Medical Branch spironolact 2021-09 Yes [id number] 25mg Take 1 [facility] one 25 mg 0-11 tablet by ity o f tablet 00:00: mouth in [place] 00 the Medical morning. Branch traZODone 2021-09 Yes [id number] TAKE 1 U nivers 100 mg 0-11 TABLET BY ity of tablet 00:00: MOUTH [place] 00 EVERY Medical NIGHT Branch busPIRone 2021-09 Yes [id number] 7.5mg Take 0.5-1 [facility] 15 mg 0-11 tablets by ity of tablet 00:00: mouth 2 [place] 00 (two) Medical times Branch daily as needed (anxiety). carBAMazepi 2021-09 Yes [id number] 200mg Take 2 [facility] ne 100 mg 0-11 tablets by ity of 12 hr 00:00: mouth at [facility] 00 bedtime. Medical Branch DULoxetine 2021-09 Yes [id number] 60mg Take 1 [facility] 60 mg 0-11 capsule by ity of capsule 00:00: mouth in [place] 00 the Medical morning. Branch ADDITIONAL REFILLS PER PSYCHIATRY fluticasone 2021-09 Yes [id number] 1{spray Use 1-2 [facility] propionate 0-11 } Sprays in ity of 50 00:00: each [place] mcg/actuati 00 nostril in [place] dical on nasal the Branch spray morning. furosemide 2021-09 Yes [id number] 40mg Take 1 [facility] 40 mg 0-11 tablet by ity of tablet 00:00: mouth [place] [address] every Medical morning Branch and evening. gabapentin 2021-09 Yes [id number] 300mg Take 1 [facility] 300 mg 0-11 capsule by ity of capsule 00:00: mouth in [place] 00 the Medical morning Branch and 1 capsule in the evening. levothyroxi 2021-09 Yes [id number] 175ug Take 1 [facility] ne 175 mcg 0-11 tablet by ity of tablet 00:00: mouth [place] 00 every Medical morning. Branch MUST BE SEEN FOR FURTHER REFILLS KCL 10 mEq 2021-09 Yes [id number] 20meq Take 2 [facility] tablet 0-11 tablets by ity of 00:00: mouth in [place] 00 the Medical morning Branch and 2 tablets in the evening. Insulin 2021-09 Yes [id number] ADMINISTER [facility] Glargine 0-11 36 UNITS ity of (LANTUS 00:00: UNDER THE [place] SOLOSTAR 00 SKIN TWICE Medic al U-100 DAILY Branch INSULIN) 100 unit/mL (3 mL) injection Insulin 2021-09 Yes [id number] Use as [facility] ers [place], 0-11 directed ity of Disposable, 00:00: to inject [place] (PEN 00 insulin Medical NEEDLE) 32 daily; Branch gauge x ICD-10 " Ndle code E11.8 loratadine 2021-09 Yes [id number] 10mg Take 1 U nivers 10 mg 0-11 tablet by ity of tablet 00:00: mouth at [place] [address] bedtime. Medical Branch metoprolol 2021-09 Yes [id number] 12.5mg Take 0.5 [facility] tartrate 25 0-11 tablets by it y of mg tablet 00:00: mouth in [facility] 00 the Medical morning Branch and 0.5 tablets in the evening. omeprazole 2021-09 Yes [id number] 40mg Take 1 [facility] 40 mg 0-11 capsule by ity of capsule 00:00: mouth in [place] 00 the Medical morning. Branch ondansetron 2021-09 Yes [id number] TAKE 1 [facility] 4 mg tablet 0-11 TABLET BY ity of 00:00: MOUTH [place] 00 EVERY 8 Medical HOURS Branch NEEDED FOR NAUSEA OR VOMITING semaglutide 2021-09 Yes [id number] INJECT [facility] (OZEMPIC) 0-11 0.5MG ity of 0.25 mg or 00:00: UNDER THE [place] 0.5 mg(2 00 SKIN EVERY Medic al mg/1.5 mL) WEEK Branch PnIj prasugreL 2021-09 Yes [id number] 10mg Take 1 Un pippa 10 mg 0-11 tablet by ity of tablet 00:00: mouth in [place] 00 the Medical morning. Branch Appointmen t needed. Please contact office. QUEtiapine 2021-09 Yes [id number] 400mg Take 1 [facility] 400 mg 0-11 tablet by ity of tablet 00:00: mouth at [place] 00 bedtime. Medical ADDITIONAL Branch REFILLS PER PSYCHIATRY rosuvastati 2021-09 Yes [id number] 20mg Take 1 [facility] n 20 mg 0-11 tablet by ity of tablet 00:00: mouth at [place] 00 bedtime. Medical Branch spironolact 2021-09 Yes [id number] 25mg Take 1 [facility] one 25 mg 0-11 tablet by ity o f tablet 00:00: mouth in [place] 00 the Medical morning. Branch traZODone 2021-09 Yes [id number] TAKE 1 U nivers 100 mg 0-11 TABLET BY ity of tablet 00:00: MOUTH [place] 00 EVERY Medical NIGHT Branch busPIRone 2021-09 Yes [id number] 7.5mg Take 0.5-1 [facility] 15 mg 0-11 tablets by ity of tablet 00:00: mouth 2 [place] 00 (two) Medical times Branch daily as needed (anxiety). carBAMazepi 2021-09 Yes [id number] 200mg Take 2 [facility] ne 100 mg 0-11 tablets by ity of 12 hr 00:00: mouth at [facility] 00 bedtime. Medical Branch DULoxetine 2021-09 Yes [id number] 60mg Take 1 [facility] 60 mg 0-11 capsule by ity of capsule 00:00: mouth in [place] 00 the Medical morning. Branch ADDITIONAL REFILLS PER PSYCHIATRY fluticasone 2021-09 Yes [id number] 1{spray Use 1-2 [facility] propionate 0-11 } Sprays in ity of 50 00:00: each [place] mcg/actuati 00 nostril in [place] on nasal the Branch spray morning. furosemide 2021-09 Yes [id number] 40mg Take 1 [facility] 40 mg 0-11 tablet by ity of tablet 00:00: mouth [place] 00 every Medical morning Branch and evening. gabapentin 2021-09 Yes [id number] 300mg Take 1 [facility] 300 mg 0-11 capsule by ity of capsule 00:00: mouth in [place] 00 the Medical morning Branch and 1 capsule in the evening. levothyroxi 2021-09 Yes [id number] 175ug Take 1 [facility] ne 175 mcg 0-11 tablet by ity of tablet 00:00: mouth [place] 00 every Medical morning. Branch MUST BE SEEN FOR FURTHER REFILLS KCL 10 mEq 2021-09 Yes [id number] 20meq Take 2 [facility] tablet 0-11 tablets by ity of 00:00: mouth in [place] 00 the Medical morning Branch and 2 tablets in the evening. Insulin 2021-09 Yes [id number] ADMINISTER [facility] Glargine 0-11 36 UNITS ity of (LANTUS 00:00: UNDER THE [place] SOLOSTAR 00 SKIN TWICE Medic al U-100 DAILY Branch INSULIN) 100 unit/mL (3 mL) injection Insulin 2021-09 Yes [id number] Use as [facility] ers [place], 0-11 directed ity of Disposable, 00:00: to inject [place] (PEN 00 insulin Medical NEEDLE) 32 daily; Branch gauge x ICD-10 " Ndle code E11.8 loratadine 2021-09 Yes [id number] 10mg Take 1 U nivers 10 mg 0-11 tablet by ity of tablet 00:00: mouth at [place] [address] bedtime. Medical Branch metoprolol 2021-09 Yes [id number] 12.5mg Take 0.5 [facility] tartrate 25 0-11 tablets by it y of mg tablet 00:00: mouth in [facility] 00 the Medical morning Branch and 0.5 tablets in the evening. omeprazole 2021-09 Yes [id number] 40mg Take 1 [facility] 40 mg 0-11 capsule by ity of capsule 00:00: mouth in [place] 00 the morning. Branch ondansetron 2021-09 Yes [id number] TAKE 1 [facility] 4 mg tablet 0-11 TABLET BY ity of 00:00: MOUTH [place] [address] EVERY 8 Medical HOURS Branch NEEDED FOR NAUSEA OR VOMITING semaglutide 2021-09 Yes [id number] INJECT [facility] (OZEMPIC) 0-11 0.5MG ity of 0.25 mg or 00:00: UNDER THE [place] 0.5 mg(2 00 SKIN EVERY Medic al mg/1.5 mL) WEEK Branch PnIj prasugreL 2021-09 Yes [id number] 10mg Take 1 Un pippa 10 mg 0-11 tablet by ity of tablet 00:00: mouth in [place] 00 the Medical morning. Branch Appointmen t needed. Please contact office. QUEtiapine 2021-09 Yes [id number] 400mg Take 1 [facility] 400 mg 0-11 tablet by ity of tablet 00:00: mouth at [place] [address] bedtime. Medical ADDITIONAL Branch REFILLS PER PSYCHIATRY rosuvastati 2021-09 Yes [id number] 20mg Take 1 [facility] n 20 mg 0-11 tablet by ity of tablet 00:00: mouth at [place] [address] bedtime. Medical Branch spironolact 2021-09 Yes [id number] 25mg Take 1 [facility] one 25 mg 0-11 tablet by ity o f tablet 00:00: mouth in [place] 00 the Medical morning. Branch traZODone 2021-09 Yes [id number] TAKE 1 U nivers 100 mg 0-11 TABLET BY ity of tablet 00:00: MOUTH [place] 00 EVERY Medical NIGHT Branch busPIRone 2021-09 Yes [id number] 7.5mg Take 0.5-1 [facility] 15 mg 0-11 tablets by ity of tablet 00:00: mouth 2 [place] 00 (two) Medical times Branch daily as needed (anxiety). carBAMazepi 2021-09 Yes [id number] 200mg Take 2 [facility] ne 100 mg 0-11 tablets by ity of 12 hr 00:00: mouth at [facility] 00 bedtime. Medical Branch DULoxetine 2021-09 Yes [id number] 60mg Take 1 [facility] 60 mg 0-11 capsule by ity of capsule 00:00: mouth in [place] 00 the Medical morning. Branch ADDITIONAL REFILLS PER PSYCHIATRY fluticasone 2021-09 Yes [id number] 1{spray Use 1-2 [facility] propionate 0-11 } Sprays in ity of 50 00:00: each [place] mcg/actuati 00 nostril in Me dical on nasal the Branch spray morning. furosemide 2021-09 Yes [id number] 40mg Take 1 [facility] 40 mg 0-11 tablet by ity of tablet 00:00: mouth [place] 00 every Medical morning Branch and evening. gabapentin 2021-09 Yes [id number] 300mg Take 1 [facility] 300 mg 0-11 capsule by ity of capsule 00:00: mouth in [place] 00 the Medical morning Branch and 1 capsule in the evening. levothyroxi 2021-09 Yes [id number] 175ug Take 1 [facility] ne 175 mcg 0-11 tablet by ity of tablet 00:00: mouth [place] 00 every Medical morning. Branch MUST BE SEEN FOR FURTHER REFILLS KCL 10 mEq 2021-09 Yes [id number] 20meq Take 2 [facility] tablet 0-11 tablets by ity of 00:00: mouth in [place] 00 the Medical morning Branch and 2 tablets in the evening. Insulin 2021-09 Yes [id number] ADMINISTER [facility] Glargine 0-11 36 UNITS ity of (LANTUS 00:00: UNDER THE [place] SOLOSTAR 00 SKIN TWICE Medic al U-100 DAILY Branch INSULIN) 100 unit/mL (3 mL) injection Insulin 2021-09 Yes [id number] Use as [facility] ers [place], 0-11 directed ity of Disposable, 00:00: to inject [place] (PEN 00 insulin Medical NEEDLE) 32 daily; Branch gauge x ICD-10 " Ndle code E11.8 loratadine 2021-09 Yes [id number] 10mg Take 1 U nivers 10 mg 0-11 tablet by ity of tablet 00:00: mouth at [place] [address] bedtime. Medical Branch metoprolol 2021-09 Yes [id number] 12.5mg Take 0.5 [facility] tartrate 25 0-11 tablets by it y of mg tablet 00:00: mouth in [facility] 00 the Medical morning Branch and 0.5 tablets in the evening. omeprazole 2021-09 Yes [id number] 40mg Take 1 [facility] 40 mg 0-11 capsule by ity of capsule 00:00: mouth in [place] 00 the Medical morning. Branch ondansetron 2021-09 Yes [id number] TAKE 1 [facility] 4 mg tablet 0-11 TABLET BY ity of 00:00: MOUTH [place] 00 EVERY 8 Medical HOURS Branch NEEDED FOR NAUSEA OR VOMITING semaglutide 2021-09 Yes [id number] INJECT [facility] (OZEMPIC) 0-11 0.5MG ity of 0.25 mg or 00:00: UNDER THE [place] 0.5 mg(2 00 SKIN EVERY Medic al mg/1.5 mL) WEEK Branch PnIj prasugreL 2021-09 Yes [id number] 10mg Take 1 Un p[place]a 10 mg 0-11 tablet by ity of tablet 00:00: mouth in [place] 00 the Medical morning. Branch Appointmen t needed. Please contact office. QUEtiapine 2021-09 Yes [id number] 400mg Take 1 [facility] 400 mg 0-11 tablet by ity of tablet 00:00: mouth at [place] [address] bedtime. Medical ADDITIONAL Branch REFILLS PER PSYCHIATRY rosuvastati 2021-09 Yes [id number] 20mg Take 1 [facility] n 20 mg 0-11 tablet by ity of tablet 00:00: mouth at [place] [address] bedtime. Medical Branch spironolact 2021-09 Yes [id number] 25mg Take 1 [facility] one 25 mg 0-11 tablet by ity o f tablet 00:00: mouth in [place] 00 the Medical morning. Branch traZODone 2021-09 Yes [id number] TAKE 1 U nivers 100 mg 0-11 TABLET BY ity of tablet 00:00: MOUTH [place] 00 EVERY Medical NIGHT Branch busPIRone 2021-09 Yes [id number] 7.5mg Take 0.5-1 [facility] 15 mg 0-11 tablets by ity of tablet 00:00: mouth 2 [place] 00 (two) Medical times Branch daily as needed (anxiety). carBAMazepi 2021-09 Yes [id number] 200mg Take 2 [facility] ne 100 mg 0-11 tablets by ity of 12 hr 00:00: mouth at [facility] 00 bedtime. Medical Branch DULoxetine 2021-09 Yes [id number] 60mg Take 1 [facility] 60 mg 0-11 capsule by ity of capsule 00:00: mouth in [place] the Medical morning. Branch ADDITIONAL REFILLS PER PSYCHIATRY fluticasone 2021-09 Yes [id number] 1{spray Use 1-2 [facility] propionate 0-11 } Sprays in ity of 50 00:00: each [place] mcg/actuati 00 nostril in [place] on nasal the Branch spray morning. furosemide 2021-09 Yes [id number] 40mg Take 1 [facility] 40 mg 0-11 tablet by ity of tablet 00:00: mouth [place] 00 every Medical morning Branch and evening. gabapentin 2021-09 Yes [id number] 300mg Take 1 [facility] 300 mg 0-11 capsule by ity of capsule 00:00: mouth in [place] 00 the Medical morning Branch and 1 capsule in the evening. levothyroxi 2021-09 Yes [id number] 175ug Take 1 [facility] ne 175 mcg 0-11 tablet by ity of tablet 00:00: mouth [place] [address] every Medical morning. Branch MUST BE SEEN FOR FURTHER REFILLS KCL 10 mEq 2021-09 Yes [id number] 20meq Take 2 [facility] tablet 0-11 tablets by ity of 00:00: mouth in [place] 00 the Medical morning Branch and 2 tablets in the evening. Insulin 2021-09 Yes [id number] ADMINISTER [facility] Glargine 0-11 36 UNITS ity of (LANTUS 00:00: UNDER THE [place] SOLOSTAR 00 SKIN TWICE Medic al U-100 DAILY Branch INSULIN) 100 unit/mL (3 mL) injection Insulin 2021-09 Yes [id number] Use as [facility] ers [place], 0-11 directed ity of Disposable, 00:00: to inject [place] (PEN 00 insulin Medical NEEDLE) 32 daily; Branch gauge x ICD-10 " Ndle code E11.8 loratadine 2021-09 Yes [id number] 10mg Take 1 U nivers 10 mg 0-11 tablet by ity of tablet 00:00: mouth at [place] [address] bedtime. Medical Branch omeprazole 2021-09 Yes [id number] 40mg Take 1 [facility] 40 mg 0-11 capsule by ity of capsule 00:00: mouth in [place] 00 the Medical morning. Branch ondansetron 2021-09 Yes [id number] TAKE 1 [facility] 4 mg tablet 0-11 TABLET BY ity of 00:00: MOUTH [place] 00 EVERY 8 Medical HOURS Branch NEEDED FOR NAUSEA OR VOMITING semaglutide 2021-09 Yes [id number] INJECT [facility] (OZEMPIC) 0-11 0.5MG ity of 0.25 mg or 00:00: UNDER THE [place] 0.5 mg(2 00 SKIN EVERY Medic al mg/1.5 mL) WEEK Branch PnIj prasugreL 2021-09 Yes [id number] 10mg Take 1 Un [place] 10 mg 0-11 tablet by ity of tablet 00:00: mouth in [place] 00 the Medical morning. Branch Appointmen t needed. Please contact office. QUEtiapine 2021-09 Yes [id number] 400mg Take 1 [facility] 400 mg 0-11 tablet by ity of tablet 00:00: mouth at [place] [address] bedtime. Medical ADDITIONAL Branch REFILLS PER PSYCHIATRY rosuvastati 2021-09 Yes [id number] 20mg Take 1 [facility] n 20 mg 0-11 tablet by ity of tablet 00:00: mouth at [place] [address] bedtime. Medical Branch spironolact 2021-09 Yes [id number] 25mg Take 1 [facility] one 25 mg 0-11 tablet by ity o f tablet 00:00: mouth in [place] 00 the Medical morning. Branch traZODone 2021-09 Yes [id number] TAKE 1 U nivers 100 mg 0-11 TABLET BY ity of tablet 00:00: MOUTH [place] 00 EVERY Medical NIGHT Branch busPIRone 2021-09 Yes [id number] 7.5mg Take 0.5-1 [facility] 15 mg 0-11 tablets by ity of tablet 00:00: mouth 2 [place] 00 (two) Medical times Branch daily as needed (anxiety). carBAMazepi 2021-09 Yes [id number] 200mg Take 2 [facility] ne 100 mg 0-11 tablets by ity of 12 hr 00:00: mouth at [facility] 00 bedtime. Medical Branch DULoxetine 2021-09 Yes [id number] 60mg Take 1 [facility] 60 mg 0-11 capsule by ity of capsule 00:00: mouth in [place] 00 the Medical morning. Branch ADDITIONAL REFILLS PER PSYCHIATRY fluticasone 2021-09 Yes [id number] 1{spray Use 1-2 [facility] propionate 0-11 } Sprays in ity of 50 00:00: each [place] mcg/actuati 00 nostril in [place] on nasal the Branch spray morning. furosemide 2021-09 Yes [id number] 40mg Take 1 [facility] 40 mg 0-11 tablet by it[facility] of tablet 00:00: mouth [place] 00 every Medical morning Branch and evening. gabapentin 2021-09 Yes [id number] 300mg Take 1 [facility] 300 mg 0-11 capsule by ity of capsule 00:00: mouth in [place] 00 the Medical morning Branch and 1 capsule in the evening. levothyroxi 2021-09 Yes [id number] 175ug Take 1 [facility] ne 175 mcg 0-11 tablet by ity of tablet 00:00: mouth [place] [address] every Medical morning. Branch MUST BE SEEN FOR FURTHER REFILLS KCL 10 mEq 2021-09 Yes [id number] 20meq Take 2 [facility] tablet 0-11 tablets by ity of 00:00: mouth in [place] 00 the Medical morning Branch and 2 tablets in the evening. Insulin 2021-09 Yes [id number] ADMINISTER [facility] Glargine 0-11 36 UNITS ity of (LANTUS 00:00: UNDER THE [place] SOLOSTAR 00 SKIN TWICE Medic al U-100 DAILY Branch INSULIN) 100 unit/mL (3 mL) injection Insulin 2021-09 Yes [id number] Use as [facility] ers [place], 0-11 directed ity of Disposable, 00:00: to inject [place] (PEN 00 insulin Medical NEEDLE) 32 daily; Branch gauge x ICD-10 5/32" Ndle code E11.8 loratadine 2021-09 Yes [id number] 10mg Take 1 U nivers 10 mg 0-11 tablet by ity of tablet 00:00: mouth at [place] 00 bedtime. Medical Branch omeprazole 2021-09 Yes [id number] 40mg Take 1 [facility] 40 mg 0-11 capsule by ity of capsule 00:00: mouth in [place] 00 the Medical morning. Branch ondansetron 2021-09 Yes [id number] TAKE 1 [facility] 4 mg tablet 0-11 TABLET BY ity of 00:00: MOUTH [place] 00 EVERY 8 Medical HOURS Branch NEEDED FOR NAUSEA OR VOMITING semaglutide 2021-09 Yes [id number] INJECT [facility] (OZEMPIC) 0-11 0.5MG ity of 0.25 mg or 00:00: UNDER THE [place] 0.5 mg(2 00 SKIN EVERY Medic al mg/1.5 mL) WEEK Branch PnIj prasugreL 2021-09 Yes [id number] 10mg Take 1 Un [place] 10 mg 0-11 tablet by ity of tablet 00:00: mouth in [place] 00 the Medical morning. Branch Appointmen t needed. Please contact office. QUEtiapine 2021-09 Yes [id number] 400mg Take 1 [facility] 400 mg 0-11 tablet by ity of tablet 00:00: mouth at [place] 00 bedtime. Medical ADDITIONAL Branch REFILLS PER PSYCHIATRY rosuvastati 2021-09 Yes [id number] 20mg Take 1 [facility] n 20 mg 0-11 tablet by ity of tablet 00:00: mouth at [place] 00 bedtime. Medical Branch spironolact 2021-09 Yes [id number] 25mg Take 1 [facility] one 25 mg 0-11 tablet by ity o f tablet 00:00: mouth in [place] 00 the Medical morning. Branch traZODone 2021-09 Yes [id number] TAKE 1 U nivers 100 mg 0-11 TABLET BY ity of tablet 00:00: MOUTH [place] 00 EVERY Medical NIGHT Branch busPIRone 2021-09 Yes [id number] 7.5mg Take 0.5-1 [facility] 15 mg 0-11 tablets by ity of tablet 00:00: mouth 2 [place] 00 (two) Medical times Branch daily as needed (anxiety). carBAMazepi 2021-09 Yes [id number] 200mg Take 2 [facility] ne 100 mg 0-11 tablets by ity of 12 hr 00:00: mouth at [facility] 00 bedtime. Medical Branch DULoxetine 2021-09 Yes [id number] 60mg Take 1 [facility] 60 mg 0-11 capsule by ity of capsule 00:00: mouth in [place] 00 the Medical morning. Branch ADDITIONAL REFILLS PER PSYCHIATRY fluticasone 2021-09 Yes [id number] 1{spray Use 1-2 [facility] propionate 0-11 } Sprays in ity of 50 00:00: each [place] mcg/actuati 00 nostril in Me dical on nasal the Branch spray morning. furosemide 2021-09 Yes [id number] 40mg Take 1 [facility] 40 mg 0-11 tablet by ity of tablet 00:00: mouth [place] 00 every Medical morning Branch and evening. gabapentin 2021-09 Yes [id number] 300mg Take 1 [facility] 300 mg 0-11 capsule by ity of capsule 00:00: mouth in [place] 00 the Medical morning Branch and 1 capsule in the evening. levothyroxi 2021-09 Yes [id number] 175ug Take 1 [facility] ne 175 mcg 0-11 tablet by ity of tablet 00:00: mouth [place] 00 every Medical morning. Branch MUST BE SEEN FOR FURTHER REFILLS KCL 10 mEq 2021-09 Yes [id number] 20meq Take 2 [facility] tablet 0-11 tablets by ity of 00:00: mouth in [place] 00 the Medical morning Branch and 2 tablets in the evening. Insulin 2021-09 Yes [id number] ADMINISTER [facility] Glargine 0-11 36 UNITS ity of (LANTUS 00:00: UNDER THE [place] SOLOSTAR 00 SKIN TWICE Medic al U-100 DAILY Branch INSULIN) 100 unit/mL (3 mL) injection Insulin 2021-09 Yes [id number] Use as [facility] ers [place], 0-11 directed ity of Disposable, 00:00: to inject [place] (PEN 00 insulin Medical NEEDLE) 32 daily; Branch gauge x ICD-10 32" Ndle code E11.8 loratadine 2021-09 Yes [id number] 10mg Take 1 U nivers 10 mg 0-11 tablet by ity of tablet 00:00: mouth at [place] 00 bedtime. Medical Branch omeprazole 2021-09 Yes [id number] 40mg Take 1 [facility] 40 mg 0-11 capsule by ity of capsule 00:00: mouth in [place] 00 the Medical morning. Branch ondansetron 2021-09 Yes [id number] TAKE 1 [facility] 4 mg tablet 0-11 TABLET BY ity of 00:00: MOUTH [place] 00 EVERY 8 Medical HOURS Branch NEEDED FOR NAUSEA OR VOMITING semaglutide 2021-09 Yes [id number] INJECT [facility] (OZEMPIC) 0-11 0.5MG ity of 0.25 mg or 00:00: UNDER THE [place] 0.5 mg(2 00 SKIN EVERY Medic al mg/1.5 mL) WEEK Branch PnIj prasugreL 2021-09 Yes [id number] 10mg Take 1 Un [place] 10 mg 0-11 tablet by ity of tablet 00:00: mouth in [place] 00 the Medical morning. Branch Appointmen t needed. Please contact office. QUEtiapine 2021-09 Yes [id number] 400mg Take 1 [facility] 400 mg 0-11 tablet by ity of tablet 00:00: mouth at [place] [address] bedtime. Medical ADDITIONAL Branch REFILLS PER PSYCHIATRY rosuvastati 2021-09 Yes [id number] 20mg Take 1 [facility] n 20 mg 0-11 tablet by ity of tablet 00:00: mouth at [place] [address] bedtime. Medical Branch spironolact 2021-09 Yes [id number] 25mg Take 1 [facility] one 25 mg 0-11 tablet by ity o f tablet 00:00: mouth in [place] 00 the Medical morning. Branch traZODone 2021-09 Yes [id number] TAKE 1 U nivers 100 mg 0-11 TABLET BY ity of tablet 00:00: MOUTH [place] 00 EVERY Medical NIGHT Branch busPIRone 2021-09 Yes [id number] 7.5mg Take 0.5-1 [facility] 15 mg 0-11 tablets by ity of tablet 00:00: mouth 2 [place] 00 (two) Medical times Branch daily as needed (anxiety). carBAMazepi 2021-09 Yes [id number] 200mg Take 2 [facility] ne 100 mg 0-11 tablets by ity of 12 hr 00:00: mouth at [facility] 00 bedtime. Medical Branch DULoxetine 2021-09 Yes [id number] 60mg Take 1 [facility] 60 mg 0-11 capsule by ity of capsule 00:00: mouth in [place] 00 the Medical morning. Branch ADDITIONAL REFILLS PER PSYCHIATRY fluticasone 2021-09 Yes [id number] 1{spray Use 1-2 [facility] propionate 0-11 } Sprays in ity of 50 00:00: each [place] mcg/actuati 00 nostril in [place] nasal the Branch spray morning. furosemide 2021-09 Yes [id number] 40mg Take 1 [facility] 40 mg 0-11 tablet by ity of tablet 00:00: mouth [place] 00 every Medical morning Branch and evening. gabapentin 2021-09 Yes [id number] 300mg Take 1 [facility] 300 mg 0-11 capsule by ity of capsule 00:00: mouth in [place] 00 the Medical morning Branch and 1 capsule in the evening. levothyroxi 2021-09 Yes [id number] 175ug Take 1 [facility] ne 175 mcg 0-11 tablet by ity of tablet 00:00: mouth [place] 00 every Medical morning. Branch MUST BE SEEN FOR FURTHER REFILLS KCL 10 mEq 2021-09 Yes [id number] 20meq Take 2 [facility] tablet 0-11 tablets by ity of 00:00: mouth in [place] 00 the Medical morning Branch and 2 tablets in the evening. Insulin 2021-09 Yes [id number] ADMINISTER [facility] Glargine 0-11 36 UNITS ity of (LANTUS 00:00: UNDER THE [place] SOLOSTAR 00 SKIN TWICE Medic al U-100 DAILY Branch INSULIN) 100 unit/mL (3 mL) injection Insulin 2021-09 Yes [id number] Use as [facility] ers [place], 0-11 directed ity of Disposable, 00:00: to inject [place] (PEN 00 insulin Medical NEEDLE) 32 daily; Branch gauge x ICD-10 " Ndle code E11.8 loratadine 2021-09 Yes [id number] 10mg Take 1 U nivers 10 mg 0-11 tablet by ity of tablet 00:00: mouth at [place] 00 bedtime. Medical Branch omeprazole 2021-09 Yes [id number] 40mg Take 1 [facility] 40 mg 0-11 capsule by ity of capsule 00:00: mouth in [place] 00 the Medical morning. Branch ondansetron 2021-09 Yes [id number] TAKE 1 [facility] 4 mg tablet 0-11 TABLET BY ity of 00:00: MOUTH [place] 00 EVERY 8 Medical HOURS Branch NEEDED FOR NAUSEA OR VOMITING semaglutide 2021-09 Yes [id number] INJECT [facility] (OZEMPIC) 0-11 0.5MG ity of 0.25 mg or 00:00: UNDER THE [place] 0.5 mg(2 00 SKIN EVERY Medic al mg/1.5 mL) WEEK Branch PnIj prasugreL 2021-09 Yes [id number] 10mg Take 1 Un [place] 10 mg 0-11 tablet by ity of tablet 00:00: mouth in [place] 00 the Medical morning. Branch Appointmen t needed. Please contact office. QUEtiapine 2021-09 Yes [id number] 400mg Take 1 [facility] 400 mg 0-11 tablet by ity of tablet 00:00: mouth at [place] [address] bedtime. Medical ADDITIONAL Branch REFILLS PER PSYCHIATRY rosuvastati 2021-09 Yes [id number] 20mg Take 1 [facility] n 20 mg 0-11 tablet by ity of tablet 00:00: mouth at [place] [address] bedtime. Medical Branch spironolact 2021-09 Yes [id number] 25mg Take 1 [facility] one 25 mg 0-11 tablet by ity o f tablet 00:00: mouth in [place] 00 the Medical morning. Branch traZODone 2021-09 Yes [id number] TAKE 1 U nivers 100 mg 0-11 TABLET BY ity of tablet 00:00: MOUTH [place] 00 EVERY Medical NIGHT Branch busPIRone 2021-09 Yes [id number] 7.5mg Take 0.5-1 [facility] 15 mg 0-11 tablets by ity of tablet 00:00: mouth 2 [place] 00 (two) Medical times Branch daily as needed (anxiety). carBAMazepi 2021-09 Yes [id number] 200mg Take 2 [facility] ne 100 mg 0-11 tablets by ity of 12 hr 00:00: mouth at [facility] 00 bedtime. Medical Branch DULoxetine 2021-09 Yes [id number] 60mg Take 1 [facility] 60 mg 0-11 capsule by ity of capsule 00:00: mouth in [place] 00 the Medical morning. Branch ADDITIONAL REFILLS PER PSYCHIATRY fluticasone 2021-09 Yes [id number] 1{spray Use 1-2 [facility] propionate 0-11 } Sprays in ity of 50 00:00: each [place] mcg/actuati 00 nostril in Me dical on nasal the Branch spray morning. furosemide 2021-09 Yes [id number] 40mg Take 1 [facility] 40 mg 0-11 tablet by ity of tablet 00:00: mouth [place] 00 every Medical morning Branch and evening. gabapentin 2021-09 Yes [id number] 300mg Take 1 [facility] 300 mg 0-11 capsule by ity of capsule 00:00: mouth in [place] 00 the Medical morning Branch and 1 capsule in the evening. levothyroxi 2021-09 Yes [id number] 175ug Take 1 [facility] ne 175 mcg 0-11 tablet by ity of tablet 00:00: mouth [place] 00 every Medical morning. Branch MUST BE SEEN FOR FURTHER REFILLS KCL 10 mEq 2021-09 Yes [id number] 20meq Take 2 [facility] tablet 0-11 tablets by ity of 00:00: mouth in [place] 00 the Medical morning Branch and 2 tablets in the evening. Insulin 2021-09 Yes [id number] ADMINISTER [facility] Glargine 0-11 36 UNITS ity of (LANTUS 00:00: UNDER THE [place] SOLOSTAR 00 SKIN TWICE Medic al U-100 DAILY Branch INSULIN) 100 unit/mL (3 mL) injection Insulin 2021-09 Yes [id number] Use as [facility] ers [place], 0-11 directed ity of Disposable, 00:00: to inject [place] (PEN 00 insulin Medical NEEDLE) 32 daily; Branch gauge x ICD-10 " Ndle code E11.8 loratadine 2021-09 Yes [id number] 10mg Take 1 U nivers 10 mg 0-11 tablet by ity of tablet 00:00: mouth at [place] [address] bedtime. Medical Branch omeprazole 2021-09 Yes [id number] 40mg Take 1 [facility] 40 mg 0-11 capsule by ity of capsule 00:00: mouth in [place] 00 the Medical morning. Branch ondansetron 2021-09 Yes [id number] TAKE 1 [facility] 4 mg tablet 0-11 TABLET BY ity of 00:00: MOUTH [place] 00 EVERY 8 Medical HOURS Branch NEEDED FOR NAUSEA OR VOMITING semaglutide 2021-09 Yes [id number] INJECT [facility] (OZEMPIC) 0-11 0.5MG ity of 0.25 mg or 00:00: UNDER THE [place] 0.5 mg(2 00 SKIN EVERY Medic al mg/1.5 mL) WEEK Branch PnIj prasugreL 2021-09 Yes [id number] 10mg Take 1 Un p[place] 10 mg 0-11 tablet by ity of tablet 00:00: mouth in [place] 00 the Medical morning. Branch Appointmen t needed. Please contact office. QUEtiapine 2021-09 Yes [id number] 400mg Take 1 [facility] 400 mg 0-11 tablet by ity of tablet 00:00: mouth at [place] [address] bedtime. Medical ADDITIONAL Branch REFILLS PER PSYCHIATRY rosuvastati 2021-09 Yes [id number] 20mg Take 1 [facility] n 20 mg 0-11 tablet by ity of tablet 00:00: mouth at [place] [address] bedtime. Medical Branch spironolact 2021-09 Yes [id number] 25mg Take 1 [facility] one 25 mg 0-11 tablet by ity o f tablet 00:00: mouth in [place] 00 the Medical morning. Branch traZODone 2021-09 Yes [id number] TAKE 1 U nivers 100 mg 0-11 TABLET BY ity of tablet 00:00: MOUTH [place] 00 EVERY Medical NIGHT Branch busPIRone 2021-09 Yes [id number] 7.5mg Take 0.5-1 [facility] 15 mg 0-11 tablets by ity of tablet 00:00: mouth 2 [place] 00 (two) Medical times Branch daily as needed (anxiety). carBAMazepi 2021-09 Yes [id number] 200mg Take 2 [facility] ne 100 mg 0-11 tablets by ity of 12 hr 00:00: mouth at [facility] 00 bedtime. Medical Branch DULoxetine 2021-09 Yes [id number] 60mg Take 1 [facility] 60 mg 0-11 capsule by ity of capsule 00:00: mouth in [place] 00 the Medical morning. Branch ADDITIONAL REFILLS PER PSYCHIATRY fluticasone 2021-09 Yes [id number] 1{spray Use 1-2 [facility] propionate 0-11 } Sprays in ity of 50 00:00: each [place] mcg/actuati 00 nostril in [place] on nasal the Branch spray morning. furosemide 2021-09 Yes [id number] 40mg Take 1 [facility] 40 mg 0-11 tablet by ity of tablet 00:00: mouth [place] 00 every Medical morning Branch and evening. gabapentin 2021-09 Yes [id number] 300mg Take 1 [facility] 300 mg 0-11 capsule by ity of capsule 00:00: mouth in [place] 00 the Medical morning Branch and 1 capsule in the evening. levothyroxi 2021-09 Yes [id number] 175ug Take 1 [facility] ne 175 mcg 0-11 tablet by ity of tablet 00:00: mouth [place] 00 every Medical morning. Branch MUST BE SEEN FOR FURTHER REFILLS KCL 10 mEq 2021-09 Yes [id number] 20meq Take 2 [facility] tablet 0-11 tablets by ity of 00:00: mouth in [place] 00 the Medical morning Branch and 2 tablets in the evening. Insulin 2021-09 Yes [id number] ADMINISTER [facility] Glargine 0-11 36 UNITS ity of (LANTUS 00:00: UNDER THE [place] SOLOSTAR 00 SKIN TWICE Medic al U-100 DAILY Branch INSULIN) 100 unit/mL (3 mL) injection Insulin 2021-09 Yes [id number] Use as [facility] ers [place], 0-11 directed ity of Disposable, 00:00: to inject [place] (PEN 00 insulin Medical NEEDLE) 32 daily; Branch gauge x ICD-10 " Ndle code E11.8 loratadine 2021-09 Yes [id number] 10mg Take 1 U nivers 10 mg 0-11 tablet by ity of tablet 00:00: mouth at [place] [address] bedtime. Medical Branch omeprazole 2021-09 Yes [id number] 40mg Take 1 [facility] 40 mg 0-11 capsule by ity of capsule 00:00: mouth in [place] the Medical morning. Branch ondansetron 2021-09 Yes [id number] TAKE 1 [facility] 4 mg tablet 0-11 TABLET BY ity of 00:00: MOUTH [place] [address] EVERY 8 Medical HOURS Branch NEEDED FOR NAUSEA OR VOMITING semaglutide 2021-09 Yes [id number] INJECT [facility] (OZEMPIC) 0-11 0.5MG ity of 0.25 mg or 00:00: UNDER THE [place] 0.5 mg(2 00 SKIN EVERY Medic al mg/1.5 mL) WEEK Branch PnIj prasugreL 2021-09 Yes [id number] 10mg Take 1 Un [place] 10 mg 0-11 tablet by ity of tablet 00:00: mouth in [place] 00 the Medical morning. Branch Appointmen t needed. Please contact office. QUEtiapine 2021-09 Yes [id number] 400mg Take 1 [facility] 400 mg 0-11 tablet by ity of tablet 00:00: mouth at [place] [address] bedtime. Medical ADDITIONAL Branch REFILLS PER PSYCHIATRY rosuvastati 2021-09 Yes [id number] 20mg Take 1 [facility] n 20 mg 0-11 tablet by ity of tablet 00:00: mouth at [place] 00 bedtime. Medical Branch spironolact 2021-09 Yes [id number] 25mg Take 1 [facility] one 25 mg 0-11 tablet by ity o f tablet 00:00: mouth in [place] 00 the Medical morning. Branch traZODone 2021-09 Yes [id number] TAKE 1 U nivers 100 mg 0-11 TABLET BY ity of tablet 00:00: MOUTH [place] 00 EVERY Medical NIGHT Branch busPIRone 2021-09 Yes [id number] 7.5mg Take 0.5-1 [facility] 15 mg 0-11 tablets by ity of tablet 00:00: mouth 2 [place] 00 (two) Medical times Branch daily as needed (anxiety). carBAMazepi 2021-09 Yes [id number] 200mg Take 2 [facility] ne 100 mg 0-11 tablets by ity of 12 hr 00:00: mouth at [place] tablet 00 bedtime. Medical Branch DULoxetine 2021-09 Yes [id number] 60mg Take 1 [facility] 60 mg 0-11 capsule by ity of capsule 00:00: mouth in [place] 00 the Medical morning. Branch ADDITIONAL REFILLS PER PSYCHIATRY fluticasone 2021-09 Yes [id number] 1{spray Use 1-2 [facility] propionate 0-11 } Sprays in ity of 50 00:00: each [place] mcg/actuati 00 nostril in [place] on nasal the Branch spray morning. furosemide 2021-09 Yes [id number] 40mg Take 1 [facility] 40 mg 0-11 tablet by ity of tablet 00:00: mouth [place] 00 every Medical morning Branch and evening. gabapentin 2021-09 Yes [id number] 300mg Take 1 [facility] 300 mg 0-11 capsule by ity of capsule 00:00: mouth in [place] 00 the Medical morning Branch and 1 capsule in the evening. levothyroxi 2021-09 Yes [id number] 175ug Take 1 [facility] ne 175 mcg 0-11 tablet by ity of tablet 00:00: mouth [place] 00 every Medical morning. Branch MUST BE SEEN FOR FURTHER REFILLS KCL 10 mEq 2021-09 Yes [id number] 20meq Take 2 [facility] tablet 0-11 tablets by ity of 00:00: mouth in [place] 00 the Medical morning Branch and 2 tablets in the evening. Insulin 2021-09 Yes [id number] ADMINISTER [facility] Glargine 0-11 36 UNITS ity of (LANTUS 00:00: UNDER THE [place] SOLOSTAR 00 SKIN TWICE Medic al U-100 DAILY Branch INSULIN) 100 unit/mL (3 mL) injection Insulin 2021-09 Yes [id number] Use as Univ ers [place], 0-11 directed ity of Disposable, 00:00: to inject [place] (PEN 00 insulin Medical NEEDLE) 32 daily; Branch gauge x ICD-10 " Ndle code E11.8 loratadine 2021-09 Yes [id number] 10mg Take 1 U nivers 10 mg 0-11 tablet by ity of tablet 00:00: mouth at [place] [address] bedtime. Medical Branch omeprazole 2021-09 Yes [id number] 40mg Take 1 [facility] 40 mg 0-11 capsule by ity of capsule 00:00: mouth in [place] 00 the Medical morning. Branch ondansetron 2021-09 Yes [id number] TAKE 1 [facility] 4 mg tablet 0-11 TABLET BY ity of 00:00: MOUTH [place] 00 EVERY 8 Medical HOURS Branch NEEDED FOR NAUSEA OR VOMITING prasugreL 2021-09 Yes [id number] 10mg Take 1 Un [place] 10 mg 0-11 tablet by ity of tablet 00:00: mouth in [place] 00 the Medical morning. Branch Appointmen t needed. Please contact office. QUEtiapine 2021-09 Yes [id number] 400mg Take 1 [facility] 400 mg 0-11 tablet by ity of tablet 00:00: mouth at [place] [address] bedtime. Medical ADDITIONAL Branch REFILLS PER PSYCHIATRY rosuvastati 2021-09 Yes [id number] 20mg Take 1 [facility] n 20 mg 0-11 tablet by ity of tablet 00:00: mouth at [place] [address] bedtime. Medical Branch spironolact 2021-09 Yes [id number] 25mg Take 1 [facility] one 25 mg 0-11 tablet by ity o f tablet 00:00: mouth in [place] 00 the Medical morning. Branch traZODone 2021-09 Yes [id number] TAKE 1 U nivers 100 mg 0-11 TABLET BY ity of tablet 00:00: MOUTH [place] 00 EVERY Medical NIGHT Branch busPIRone 2021-09 Yes [id number] 7.5mg Take 0.5-1 [facility] 15 mg 0-11 tablets by ity of tablet 00:00: mouth 2 [place] 00 (two) Medical times Branch daily as needed (anxiety). carBAMazepi 2021-09 Yes [id number] 200mg Take 2 [facility] ne 100 mg 0-11 tablets by ity of 12 hr 00:00: mouth at [facility] 00 bedtime. Medical Branch DULoxetine 2021-09 Yes [id number] 60mg Take 1 [facility] 60 mg 0-11 capsule by ity of capsule 00:00: mouth in [place] 00 the morning. Branch ADDITIONAL REFILLS PER PSYCHIATRY fluticasone 2021-09 Yes [id number] 1{spray Use 1-2 [facility] propionate 0-11 } Sprays in ity of 50 00:00: each [place] mcg/actuati 00 nostril in Me dical on nasal the Branch spray morning. furosemide 2021-09 Yes [id number] 40mg Take 1 [facility] 40 mg 0-11 tablet by ity of tablet 00:00: mouth [place] [address] every Medical morning Branch and evening. gabapentin 2021-09 Yes [id number] 300mg Take 1 [facility] 300 mg 0-11 capsule by ity of capsule 00:00: mouth in [place] 00 the Medical morning Branch and 1 capsule in the evening. levothyroxi 2021-09 Yes [id number] 175ug Take 1 [facility] ne 175 mcg 0-11 tablet by ity of tablet 00:00: mouth [place] [address] every Medical morning. Branch MUST BE SEEN FOR FURTHER REFILLS KCL 10 mEq 2021-09 Yes [id number] 20meq Take 2 [facility] tablet 0-11 tablets by ity of 00:00: mouth in [place] 00 the Medical morning Branch and 2 tablets in the evening. Insulin 2021-09 Yes [id number] ADMINISTER [facility] Glargine 0-11 36 UNITS ity of (LANTUS 00:00: UNDER THE [place] SOLOSTAR 00 SKIN TWICE Medic al U-100 DAILY Branch INSULIN) 100 unit/mL (3 mL) injection Insulin 2021-09 Yes [id number] Use as Univ ers [place], 0-11 directed ity of Disposable, 00:00: to inject [place] (PEN 00 insulin Medical NEEDLE) 32 daily; Branch gauge x ICD-10 " Ndle code E11.8 loratadine 2021-09 Yes [id number] 10mg Take 1 U nivers 10 mg 0-11 tablet by ity of tablet 00:00: mouth at [place] [address] bedtime. Medical Branch omeprazole 2021-09 Yes [id number] 40mg Take 1 [facility] 40 mg 0-11 capsule by ity of capsule 00:00: mouth in [place] [address] the Medical morning. Branch ondansetron 2021-09 Yes [id number] TAKE 1 [facility] 4 mg tablet 0-11 TABLET BY ity of 00:00: MOUTH [place] 00 EVERY 8 Medical HOURS Branch NEEDED FOR NAUSEA OR VOMITING prasugreL 2021-09 Yes [id number] 10mg Take 1 Un [place] 10 mg 0-11 tablet by ity of tablet 00:00: mouth in [place] 00 the Medical morning. Branch Appointmen t needed. Please contact office. QUEtiapine 2021-09 Yes [id number] 400mg Take 1 [facility] 400 mg 0-11 tablet by ity of tablet 00:00: mouth at [place] [address] bedtime. Medical ADDITIONAL Branch REFILLS PER PSYCHIATRY rosuvastati 2021-09 Yes [id number] 20mg Take 1 [facility] n 20 mg 0-11 tablet by ity of tablet 00:00: mouth at [place] [address] bedtime. Medical Branch spironolact 2021-09 Yes [id number] 25mg Take 1 [facility] one 25 mg 0-11 tablet by ity o f tablet 00:00: mouth in [place] 00 the Medical morning. Branch traZODone 2021-09 Yes [id number] TAKE 1 U nivers 100 mg 0-11 TABLET BY ity of tablet 00:00: MOUTH [place] 00 EVERY Medical NIGHT Branch busPIRone 2021-09 Yes [id number] 7.5mg Take 0.5-1 [facility] 15 mg 0-11 tablets by ity of tablet 00:00: mouth 2 [place] 00 (two) Medical times Branch daily as needed (anxiety). carBAMazepi 2021-09 Yes [id number] 200mg Take 2 [facility] ne 100 mg 0-11 tablets by ity of 12 hr 00:00: mouth at [facility] 00 bedtime. Medical Branch DULoxetine 2021-09 Yes [id number] 60mg Take 1 [facility] 60 mg 0-11 capsule by ity of capsule 00:00: mouth in [place] 00 the Medical morning. Branch ADDITIONAL REFILLS PER PSYCHIATRY fluticasone 2021-09 Yes [id number] 1{spray Use 1-2 [facility] propionate 0-11 } Sprays in ity of 50 00:00: each [place] mcg/actuati 00 nostril in Me dical on nasal the Branch spray morning. furosemide 2021-09 Yes [id number] 40mg Take 1 [facility] 40 mg 0-11 tablet by ity of tablet 00:00: mouth [place] 00 every Medical morning Branch and evening. gabapentin 2021-09 Yes [id number] 300mg Take 1 [facility] 300 mg 0-11 capsule by ity of capsule 00:00: mouth in [place] 00 the Medical morning Branch and 1 capsule in the evening. levothyroxi 2021-09 Yes [id number] 175ug Take 1 [facility] ne 175 mcg 0-11 tablet by ity of tablet 00:00: mouth [place] 00 every Medical morning. Branch MUST BE SEEN FOR FURTHER REFILLS KCL 10 mEq 2021-09 Yes [id number] 20meq Take 2 [facility] tablet 0-11 tablets by ity of 00:00: mouth in [place] 00 the Medical morning Branch and 2 tablets in the evening. Insulin 2021-09 Yes [id number] ADMINISTER [facility] Glargine 0-11 36 UNITS ity of (LANTUS 00:00: UNDER THE [place] SOLOSTAR 00 SKIN TWICE Medic al U-100 DAILY Branch INSULIN) 100 unit/mL (3 mL) injection Insulin 2021-09 Yes [id number] Use as Univ ers [place], 0-11 directed ity of Disposable, 00:00: to inject [place] (PEN 00 insulin Medical NEEDLE) 32 daily; Branch gauge x ICD-10 " Ndle code E11.8 loratadine 2021-09 Yes [id number] 10mg Take 1 U nivers 10 mg 0-11 tablet by ity of tablet 00:00: mouth at [place] [address] bedtime. Medical Branch omeprazole 2021-09 Yes [id number] 40mg Take 1 [facility] 40 mg 0-11 capsule by ity of capsule 00:00: mouth in [place] 00 the Medical morning. Branch ondansetron 2021-09 Yes [id number] TAKE 1 [facility] 4 mg tablet 0-11 TABLET BY ity of 00:00: MOUTH [place] 00 EVERY 8 Medical HOURS Branch NEEDED FOR NAUSEA OR VOMITING prasugreL 2021-09 Yes [id number] 10mg Take 1 Un [place] 10 mg 0-11 tablet by ity of tablet 00:00: mouth in [place] 00 the Medical morning. Branch Appointmen t needed. Please contact office. QUEtiapine 2021-09 Yes [id number] 400mg Take 1 [facility] 400 mg 0-11 tablet by ity of tablet 00:00: mouth at [place] [address] bedtime. Medical ADDITIONAL Branch REFILLS PER PSYCHIATRY rosuvastati 2021-09 Yes [id number] 20mg Take 1 [facility] n 20 mg 0-11 tablet by ity of tablet 00:00: mouth at [place] [address] bedtime. Medical Branch spironolact 2021-09 Yes [id number] 25mg Take 1 [facility] one 25 mg 0-11 tablet by ity o f tablet 00:00: mouth in [place] 00 the Medical morning. Branch busPIRone 2021-09 Yes [id number] 7.5mg Take 0.5-1 [facility] 15 mg 0-11 tablets by ity of tablet 00:00: mouth 2 [place] 00 (two) Medical times Branch daily as needed (anxiety). carBAMazepi 2021-09 Yes [id number] 200mg Take 2 [facility] ne 100 mg 0-11 tablets by ity of 12 hr 00:00: mouth at [facility] 00 bedtime. Medical Branch DULoxetine 2021-09 Yes [id number] 60mg Take 1 [facility] 60 mg 0-11 capsule by ity of capsule 00:00: mouth in [place] 00 the Medical morning. Branch ADDITIONAL REFILLS PER PSYCHIATRY fluticasone 2021-09 Yes [id number] 1{spray Use 1-2 [facility] propionate 0-11 } Sprays in ity of 50 00:00: each [place] mcg/actuati 00 nostril in [place] on nasal the Branch spray morning. furosemide 2021-09 Yes [id number] 40mg Take 1 [facility] 40 mg 0-11 tablet by ity of tablet 00:00: mouth [place] 00 every Medical morning Branch and evening. gabapentin 2021-09 Yes [id number] 300mg Take 1 [facility] 300 mg 0-11 capsule by ity of capsule 00:00: mouth in [place] 00 the Medical morning Branch and 1 capsule in the evening. levothyroxi 2021-09 Yes [id number] 175ug Take 1 [facility] ne 175 mcg 0-11 tablet by ity of tablet 00:00: mouth [place] [address] every Medical morning. Branch MUST BE SEEN FOR FURTHER REFILLS KCL 10 mEq 2021-09 Yes [id number] 20meq Take 2 [facility] tablet 0-11 tablets by ity of 00:00: mouth in [place] 00 the Medical morning Branch and 2 tablets in the evening. Insulin 2021-09 Yes [id number] ADMINISTER [facility] Glargine 0-11 36 UNITS ity of (LANTUS 00:00: UNDER THE [place] SOLOSTAR 00 SKIN TWICE Medic al U-100 DAILY Branch INSULIN) 100 unit/mL (3 mL) injection Insulin 2021-09 Yes [id number] Use as [facility] [place], 0-11 directed ity of Disposable, 00:00: to inject [place] (PEN 00 insulin Medical NEEDLE) 32 daily; Branch gauge x ICD-10 " Ndle code E11.8 loratadine 2021-09 Yes [id number] 10mg Take 1 U nivers 10 mg 0-11 tablet by ity of tablet 00:00: mouth at [place] [address] bedtime. Medical Branch omeprazole 2021-09 Yes [id number] 40mg Take 1 [facility] 40 mg 0-11 capsule by ity of capsule 00:00: mouth in [place] 00 the Medical morning. Branch ondansetron 2021-09 Yes [id number] TAKE 1 [facility] 4 mg tablet 0-11 TABLET BY ity of 00:00: MOUTH [place] 00 EVERY 8 Medical HOURS Branch NEEDED FOR NAUSEA OR VOMITING prasugreL 2021-09 Yes [id number] 10mg Take 1 [facility] [place] 10 mg 0-11 tablet by ity of tablet 00:00: mouth in [place] the morning. Branch Appointmen t needed. Please contact office. QUEtiapine 2021-09 Yes [id number] 400mg Take 1 [facility] 400 mg 0-11 tablet by ity of tablet 00:00: mouth at [place] [address] bedtime. Medical ADDITIONAL Branch REFILLS PER PSYCHIATRY rosuvastati 2021-09 Yes [id number] 20mg Take 1 [facility] n 20 mg 0-11 tablet by ity of tablet 00:00: mouth at [place] [address] bedtime. Medical Branch spironolact 2021-09 Yes [id number] 25mg Take 1 [facility] one 25 mg 0-11 tablet by ity o f tablet 00:00: mouth in [place] 00 the Medical morning. Branch fluticasone 2021-09 Yes [id number] 1{spray Use 1-2 [facility] propionate 0-11 } Sprays in ity of 50 00:00: each [place] mcg/actuati 00 nostril in Me dical on nasal the Branch spray morning. KCL 10 mEq 2021-09 Yes [id number] 20meq Take 2 [facility] tablet 0-11 tablets by ity of 00:00: mouth in [place] 00 the Medical morning Branch and 2 tablets in the evening. Insulin 2021-09 Yes [id number] ADMINISTER [facility] Glargine 0-11 36 UNITS ity of (LANTUS 00:00: UNDER THE [place] SOLOSTAR 00 SKIN TWICE Medic al U-100 DAILY Branch INSULIN) 100 unit/mL (3 mL) injection Insulin 2021-09 Yes [id number] Use as [facility] [place], 0-11 directed ity of Disposable, 00:00: to inject [place] (PEN 00 insulin Medical NEEDLE) 32 daily; Branch gauge x ICD-10 " Ndle code E11.8 loratadine 2021-09 Yes [id number] 10mg Take 1 U nivers 10 mg 0-11 tablet by ity of tablet 00:00: mouth at [place] [address] bedtime. Medical Branch omeprazole 2021-09 Yes [id number] 40mg Take 1 [facility] 40 mg 0-11 capsule by ity of capsule 00:00: mouth in [place] 00 the Medical morning. Branch ondansetron 2021-09 Yes [id number] TAKE 1 [facility] 4 mg tablet 0-11 TABLET BY ity of 00:00: MOUTH [place] [address] EVERY 8 Medical HOURS Branch NEEDED FOR NAUSEA OR VOMITING prasugreL 2021-09 Yes [id number] 10mg Take 1 Un [place] 10 mg 0-11 tablet by ity of tablet 00:00: mouth in [place] 00 the Medical morning. Branch Appointmen t needed. Please contact office. QUEtiapine 2021-09 Yes [id number] 400mg Take 1 [facility] 400 mg 0-11 tablet by ity of tablet 00:00: mouth at [place] [address] bedtime. Medical ADDITIONAL Branch REFILLS PER PSYCHIATRY rosuvastati 2021-09 Yes [id number] 20mg Take 1 [facility] n 20 mg 0-11 tablet by ity of tablet 00:00: mouth at [place] [address] bedtime. Medical Branch spironolact 2021-09 Yes [id number] 25mg Take 1 [facility] one 25 mg 0-11 tablet by ity o f tablet 00:00: mouth in [place] 00 the Medical morning. Branch fluticasone 2021-09 Yes [id number] 1{spray Use 1-2 [facility] propionate 0-11 } Sprays in ity of 50 00:00: each [place] mcg/actuati 00 nostril in [place] nasal the Branch spray morning. KCL 10 mEq 2021-09 Yes [id number] 20meq Take 2 [facility] tablet 0-11 tablets by ity of 00:00: mouth in [place] [address] the Medical morning Branch and 2 tablets in the evening. Insulin 2021-09 Yes [id number] ADMINISTER [facility] Glargine 0-11 36 UNITS ity of (LANTUS 00:00: UNDER THE [place] SOLOSTAR 00 SKIN TWICE Medic al U-100 DAILY Branch INSULIN) 100 unit/mL (3 mL) injection Insulin 2021-09 Yes [id number] Use as [facility] [place], 0-11 directed ity of Disposable, 00:00: to inject [place] (PEN 00 insulin Medical NEEDLE) 32 daily; Branch gauge x ICD-10 " Ndle code E11.8 loratadine 2021-09 Yes [id number] 10mg Take 1 U nivers 10 mg 0-11 tablet by ity of tablet 00:00: mouth at [place] [address] bedtime. Medical Branch omeprazole 2021-09 Yes [id number] 40mg Take 1 [facility] 40 mg 0-11 capsule by ity of capsule 00:00: mouth in [place] the morning. Branch ondansetron 2021-09 Yes [id number] TAKE 1 [facility] 4 mg tablet 0-11 TABLET BY ity of 00:00: MOUTH [place] [address] EVERY 8 Medical HOURS Branch NEEDED FOR NAUSEA OR VOMITING prasugreL 2021-09 Yes [id number] 10mg Take 1 Un [place] 10 mg 0-11 tablet by ity of tablet 00:00: mouth in [place] the morning. Branch Appointmen t needed. Please contact office. QUEtiapine 2021-09 Yes [id number] 400mg Take 1 [facility] 400 mg 0-11 tablet by ity of tablet 00:00: mouth at [place] [address] bedtime. Medical ADDITIONAL Branch REFILLS PER PSYCHIATRY rosuvastati 2021-09 Yes [id number] 20mg Take 1 [facility] n 20 mg 0-11 tablet by ity of tablet 00:00: mouth at [place] [address] bedtime. Medical Branch spironolact 2021-09 Yes [id number] 25mg Take 1 [facility] one 25 mg 0-11 tablet by ity o f tablet 00:00: mouth in [place] 00 the Medical morning. Branch fluticasone 2021-09 Yes [id number] 1{spray Use 1-2 [facility] propionate 0-11 } Sprays in ity of 50 00:00: each [place] mcg/actuati 00 nostril in [place] nasal the Branch spray morning. KCL 10 mEq 2021-09 Yes [id number] 20meq Take 2 [facility] tablet 0-11 tablets by ity of 00:00: mouth in [place] 00 the Medical morning Branch and 2 tablets in the evening. Insulin 2021-09 Yes [id number] ADMINISTER [facility] Glargine 0-11 36 UNITS ity of (LANTUS 00:00: UNDER THE [place] SOLOSTAR 00 SKIN TWICE Medic al U-100 DAILY Branch INSULIN) 100 unit/mL (3 mL) injection Insulin 2021-09 Yes [id number] Use as [facility] [place], 0-11 directed ity of Disposable, 00:00: to inject [place] (PEN 00 insulin Medical NEEDLE) 32 daily; Branch gauge x ICD-10 " Ndle code E11.8 loratadine 2021-09 Yes [id number] 10mg Take 1 U nivers 10 mg 0-11 tablet by ity of tablet 00:00: mouth at [place] [address] bedtime. Medical Branch omeprazole 2021-09 Yes [id number] 40mg Take 1 [facility] 40 mg 0-11 capsule by ity of capsule 00:00: mouth in [place] 00 the morning. Branch ondansetron 2021-09 Yes [id number] TAKE 1 [facility] 4 mg tablet 0-11 TABLET BY ity of 00:00: MOUTH [place] 00 EVERY 8 Medical HOURS Branch NEEDED FOR NAUSEA OR VOMITING prasugreL 2021-09 Yes [id number] 10mg Take 1 Un [place] 10 mg 0-11 tablet by ity of tablet 00:00: mouth in [place] 00 the morning. Branch Appointmen t needed. Please contact office. QUEtiapine 2021-09 Yes [id number] 400mg Take 1 [facility] 400 mg 0-11 tablet by ity of tablet 00:00: mouth at [place] [address] bedtime. Medical ADDITIONAL Branch REFILLS PER PSYCHIATRY rosuvastati 2021-09 Yes [id number] 20mg Take 1 [facility] n 20 mg 0-11 tablet by ity of tablet 00:00: mouth at [place] [address] bedtime. Medical Branch spironolact 2021-09 Yes [id number] 25mg Take 1 [facility] one 25 mg 0-11 tablet by ity o f tablet 00:00: mouth in [place] 00 the Medical morning. Branch fluticasone 2021-09 Yes [id number] 1{spray Use 1-2 [facility] propionate 0-11 } Sprays in ity of 50 00:00: each [place] mcg/actuati 00 nostril in [place] on nasal the Branch spray morning. KCL 10 mEq 2021-09 Yes [id number] 20meq Take 2 [facility] tablet 0-11 tablets by ity of 00:00: mouth in [place] 00 the Medical morning Branch and 2 tablets in the evening. Insulin 2021-09 Yes [id number] ADMINISTER [facility] Glargine 0-11 36 UNITS ity of (LANTUS 00:00: UNDER THE [place] SOLOSTAR 00 SKIN TWICE Medic al U-100 DAILY Branch INSULIN) 100 unit/mL (3 mL) injection Insulin 2021-09 Yes [id number] Use as [facility] [place], 0-11 directed ity of Disposable, 00:00: to inject [place] (PEN 00 insulin Medical NEEDLE) 32 daily; Branch gauge x ICD-10 " Ndle code E11.8 loratadine 2021-09 Yes [id number] 10mg Take 1 U nivers 10 mg 0-11 tablet by ity of tablet 00:00: mouth at [place] [address] bedtime. Medical Branch omeprazole 2021-09 Yes [id number] 40mg Take 1 [facility] 40 mg 0-11 capsule by ity of capsule 00:00: mouth in [place] the morning. Branch ondansetron 2021-09 Yes [id number] TAKE 1 [facility] 4 mg tablet 0-11 TABLET BY ity of 00:00: MOUTH [place] 00 EVERY 8 Medical HOURS Branch NEEDED FOR NAUSEA OR VOMITING prasugreL 2021-09 Yes [id number] 10mg Take 1 Un [place] 10 mg 0-11 tablet by ity of tablet 00:00: mouth in [place] the morning. Branch Appointmen t needed. Please contact office. QUEtiapine 2021-09 Yes [id number] 400mg Take 1 [facility] 400 mg 0-11 tablet by ity of tablet 00:00: mouth at [place] [address] bedtime. Medical ADDITIONAL Branch REFILLS PER PSYCHIATRY rosuvastati 2021-09 Yes [id number] 20mg Take 1 [facility] n 20 mg 0-11 tablet by ity of tablet 00:00: mouth at [place] [address] bedtime. Medical Branch spironolact 2021-09 Yes [id number] 25mg Take 1 [facility] one 25 mg 0-11 tablet by ity o f tablet 00:00: mouth in [place] 00 the Medical morning. Branch fluticasone 2021-09 Yes [id number] 1{spray Use 1-2 [facility] propionate 0-11 } Sprays in ity of 50 00:00: each [place] mcg/actuati 00 nostril in Me dical on nasal the Branch spray morning. KCL 10 mEq 2021-09 Yes [id number] 20meq Take 2 [facility] tablet 0-11 tablets by ity of 00:00: mouth in [place] 00 the Medical morning Branch and 2 tablets in the evening. Insulin 2021-09 Yes [id number] ADMINISTER [facility] Glargine 0-11 36 UNITS ity of (LANTUS 00:00: UNDER THE [place] SOLOSTAR 00 SKIN TWICE Medic al U-100 DAILY Branch INSULIN) 100 unit/mL (3 mL) injection Insulin 2021-09 Yes [id number] Use as [facility] [place], 0-11 directed ity of Disposable, 00:00: to inject [place] (PEN 00 insulin Medical NEEDLE) 32 daily; Branch gauge x ICD-10 " Ndle code E11.8 loratadine 2021-09 Yes [id number] 10mg Take 1 U nivers 10 mg 0-11 tablet by ity of tablet 00:00: mouth at [place] [address] bedtime. Medical Branch omeprazole 2021-09 Yes [id number] 40mg Take 1 [facility] 40 mg 0-11 capsule by ity of capsule 00:00: mouth in [place] the morning. Branch ondansetron 2021-09 Yes [id number] TAKE 1 [facility] 4 mg tablet 0-11 TABLET BY ity of 00:00: MOUTH [place] 00 EVERY 8 Medical HOURS Branch NEEDED FOR NAUSEA OR VOMITING prasugreL 2021-09 Yes [id number] 10mg Take 1 Un [place] 10 mg 0-11 tablet by ity of tablet 00:00: mouth in [place] 00 the morning. Branch Appointmen t needed. Please contact office. QUEtiapine 2021-09 Yes [id number] 400mg Take 1 [facility] 400 mg 0-11 tablet by ity of tablet 00:00: mouth at [place] [address] bedtime. Medical ADDITIONAL Branch REFILLS PER PSYCHIATRY rosuvastati 2021-09 Yes [id number] 20mg Take 1 [facility] n 20 mg 0-11 tablet by ity of tablet 00:00: mouth at [place] [address] bedtime. Medical Branch spironolact 2021-09 Yes [id number] 25mg Take 1 [facility] one 25 mg 0-11 tablet by ity o f tablet 00:00: mouth in [place] 00 the Medical morning. Branch fluticasone 2021-09 Yes [id number] 1{spray Use 1-2 [facility] propionate 0-11 } Sprays in ity of 50 00:00: each [place] mcg/actuati 00 nostril in Me dical on nasal the Branch spray morning. Insulin 2021-09 Yes [id number] Use as [facility] [place], 0-11 directed ity of Disposable, 00:00: to inject [place] (PEN 00 insulin Medical NEEDLE) 32 daily; Branch gauge x ICD-10 " Ndle code E11.8 loratadine 2021-09 Yes [id number] 10mg Take 1 U nivers 10 mg 0-11 tablet by ity of tablet 00:00: mouth at [place] [address] bedtime. Medical Branch prasugreL 2021-09 Yes [id number] 10mg Take 1 Un [place] 10 mg 0-11 tablet by ity of tablet 00:00: mouth in [place] the Medical morning. Branch Appointmen t needed. Please contact office. spironolact 2021-09 Yes [id number] 25mg Take 1 [facility] one 25 mg 0-11 tablet by ity o f tablet 00:00: mouth in [place] the Medical morning. Branch fluticasone 2021-09 Yes [id number] 1{spray Use 1-2 [facility] propionate 0-11 } Sprays in ity of 50 00:00: each [place] mcg/actuati 00 nostril in Me dical on nasal the Branch spray morning. Insulin 2021-09 Yes [id number] Use as [facility] [place], 0-11 directed ity of Disposable, 00:00: to inject [place] (PEN 00 insulin Medical NEEDLE) 32 daily; Branch gauge x ICD-10 " Ndle code E11.8 loratadine 2021-09 Yes [id number] 10mg Take 1 U nivers 10 mg 0-11 tablet by ity of tablet 00:00: mouth at [place] [address] bedtime. Medical Branch prasugreL 2021-09 Yes [id number] 10mg Take 1 Un [place] 10 mg 0-11 tablet by ity of tablet 00:00: mouth in [place] the Medical morning. Branch Appointmen t needed. Please contact office. spironolact 2021-09 Yes [id number] 25mg Take 1 [facility] one 25 mg 0-11 tablet by ity o f tablet 00:00: mouth in [place] 00 the Medical morning. Branch fluticasone 2021-09 Yes [id number] 1{spray Use 1-2 [facility] propionate 0-11 } Sprays in ity of 50 00:00: each [place] mcg/actuati 00 nostril in Me dical on nasal the Branch spray morning. Insulin 2021-09 Yes [id number] Use as [facility] [place], 0-11 directed ity of Disposable, 00:00: to inject [place] (PEN 00 insulin Medical NEEDLE) 32 daily; Branch gauge x ICD-10 " Ndle code E11.8 loratadine 2021-09 Yes [id number] 10mg Take 1 U nivers 10 mg 0-11 tablet by ity of tablet 00:00: mouth at [place] 00 bedtime. Medical Branch prasugreL 2021-09 Yes [id number] 10mg Take 1 Un [place] 10 mg 0-11 tablet by ity of tablet 00:00: mouth in [place] the Medical morning. Branch Appointmen t needed. Please contact office. spironolact 2021-09 Yes [id number] 25mg Take 1 [facility] one 25 mg 0-11 tablet by ity o f tablet 00:00: mouth in [place] the Medical morning. Branch fluticasone 2021-09 Yes [id number] 1{spray Use 1-2 [facility] propionate 0-11 } Sprays in ity of 50 00:00: each [place] mcg/actuati 00 nostril in Me dical on nasal the Branch spray morning. Insulin 2021-09 Yes [id number] Use as [facility] [place], 0-11 directed ity of Disposable, 00:00: to inject [place] (PEN 00 insulin Medical NEEDLE) 32 daily; Branch gauge x ICD-10 " Ndle code E11.8 loratadine 2021-09 Yes [id number] 10mg Take 1 U nivers 10 mg 0-11 tablet by ity of tablet 00:00: mouth at [place] 00 bedtime. Medical Branch prasugreL 2021-09 Yes [id number] 10mg Take 1 Un [place] 10 mg 0-11 tablet by ity of tablet 00:00: mouth in [place] 00 the Medical morning. Branch Appointmen t needed. Please contact office. spironolact 2021-09 Yes [id number] 25mg Take 1 [facility] one 25 mg 0-11 tablet by ity o f tablet 00:00: mouth in [place] the Medical morning. Branch fluticasone 2021-09 Yes [id number] 1{spray Use 1-2 [facility] propionate 0-11 } Sprays in ity of 50 00:00: each [place] mcg/actuati 00 nostril in Me dical on nasal the Branch spray morning. Insulin 2021-09 Yes [id number] Use as [facility] [place], 0-11 directed ity of Disposable, 00:00: to inject [place] (PEN 00 insulin Medical NEEDLE) 32 daily; Branch gauge x ICD-10 " Ndle code E11.8 loratadine 2021-09 Yes [id number] 10mg Take 1 U nivers 10 mg 0-11 tablet by ity of tablet 00:00: mouth at [place] [address] bedtime. Medical Branch prasugreL 2021-09 Yes [id number] 10mg Take 1 Un [place] 10 mg 0-11 tablet by ity of tablet 00:00: mouth in [place] the Medical morning. Branch Appointmen t needed. Please contact office. spironolact 2021-09 Yes [id number] 25mg Take 1 [facility] one 25 mg 0-11 tablet by ity o f tablet 00:00: mouth in [place] the Medical morning. Branch fluticasone 2021-09 Yes [id number] 1{spray Use 1-2 [facility] propionate 0-11 } Sprays in ity of 50 00:00: each [place] mcg/actuati 00 nostril in Me dical on nasal the Branch spray morning. Insulin 2021-09 Yes [id number] Use as [facility] [place], 0-11 directed ity of Disposable, 00:00: to inject [place] (PEN 00 insulin Medical NEEDLE) 32 daily; Branch gauge x ICD-10 " Ndle code E11.8 loratadine 2021-09 Yes [id number] 10mg Take 1 U nivers 10 mg 0-11 tablet by ity of tablet 00:00: mouth at [place] [address] bedtime. Medical Branch prasugreL 2021-09 Yes [id number] 10mg Take 1 Un [place] 10 mg 0-11 tablet by ity of tablet 00:00: mouth in [place] the Medical morning. Branch Appointmen t needed. Please contact office. spironolact 2021-09 Yes [id number] 25mg Take 1 [facility] one 25 mg 0-11 tablet by ity o f tablet 00:00: mouth in [place] the Medical morning. Branch fluticasone 2021-09 Yes [id number] 1{spray Use 1-2 [facility] propionate 0-11 } Sprays in ity of 50 00:00: each [place] mcg/actuati 00 nostril in Me dical on nasal the Branch spray morning. Insulin 2021-09 Yes [id number] Use as [facility] [place], 0-11 directed ity of Disposable, 00:00: to inject [place] (PEN 00 insulin Medical NEEDLE) 32 daily; Branch gauge x ICD-10 " Ndle code E11.8 loratadine 2021-09 Yes [id number] 10mg Take 1 U nivers 10 mg 0-11 tablet by ity of tablet 00:00: mouth at [place] [address] bedtime. Medical Branch prasugreL 2021-09 Yes [id number] 10mg Take 1 Un [place] 10 mg 0-11 tablet by ity of tablet 00:00: mouth in [place] the Medical morning. Branch Appointmen t needed. Please contact office. spironolact 2021-09 Yes [id number] 25mg Take 1 [facility] one 25 mg 0-11 tablet by ity o f tablet 00:00: mouth in [place] the Medical morning. Branch fluticasone 2021-09 Yes [id number] 1{spray Use 1-2 [facility] propionate 0-11 } Sprays in ity of 50 00:00: each [place] mcg/actuati 00 nostril in Me dical on nasal the Branch spray morning. Insulin 2021-09 Yes [id number] Use as [facility] [place], 0-11 directed ity of Disposable, 00:00: to inject [place] (PEN 00 insulin Medical NEEDLE) 32 daily; Branch gauge x ICD-10 " Ndle code E11.8 loratadine 2021-09 Yes [id number] 10mg Take 1 U nivers 10 mg 0-11 tablet by ity of tablet 00:00: mouth at [place] [address] bedtime. Medical Branch prasugreL 2021-09 Yes [id number] 10mg Take 1 Un [place] 10 mg 0-11 tablet by ity of tablet 00:00: mouth in [place] the Medical morning. Branch Appointmen t needed. Please contact office. spironolact 2021-09 Yes [id number] 25mg Take 1 [facility] one 25 mg 0-11 tablet by ity o f tablet 00:00: mouth in [place] 00 the Medical morning. Branch fluticasone 2021-09 Yes [id number] 1{spray Use 1-2 [facility] propionate 0-11 } Sprays in ity of 50 00:00: each [place] mcg/actuati 00 nostril in Me dical on nasal the Branch spray morning. Insulin 2021-09 Yes [id number] Use as [facility] [place], 0-11 directed ity of Disposable, 00:00: to inject [place] (PEN 00 insulin Medical NEEDLE) 32 daily; Branch gauge x ICD-10 " Ndle code E11.8 loratadine 2021-09 Yes [id number] 10mg Take 1 U nivers 10 mg 0-11 tablet by ity of tablet 00:00: mouth at [place] [address] bedtime. Medical Branch prasugreL 2021-09 Yes [id number] 10mg Take 1 Un [place] 10 mg 0-11 tablet by ity of tablet 00:00: mouth in [place] the Medical morning. Branch Appointmen t needed. Please contact office. spironolact 2021-09 Yes [id number] 25mg Take 1 [facility] one 25 mg 0-11 tablet by ity o f tablet 00:00: mouth in [place] the Medical morning. Branch fluticasone 2021-09 Yes [id number] 1{spray Use 1-2 [facility] propionate 0-11 } Sprays in ity of 50 00:00: each [place] mcg/actuati 00 nostril in Me dical on nasal the Branch spray morning. Insulin 2021-09 Yes [id number] Use as [facility] [place], 0-11 directed ity of Disposable, 00:00: to inject [place] (PEN 00 insulin Medical NEEDLE) 32 daily; Branch gauge x ICD-10 " Ndle code E11.8 loratadine 2021-09 Yes [id number] 10mg Take 1 U nivers 10 mg 0-11 tablet by ity of tablet 00:00: mouth at [place] [address] bedtime. Medical Branch prasugreL 2021-09 Yes [id number] 10mg Take 1 Un [place] 10 mg 0-11 tablet by ity of tablet 00:00: mouth in [place] the Medical morning. Branch Appointmen t needed. Please contact office. spironolact 2021-09 Yes [id number] 25mg Take 1 [facility] one 25 mg 0-11 tablet by ity o f tablet 00:00: mouth in [place] 00 the Medical morning. Branch fluticasone 2021-09 Yes [id number] 1{spray Use 1-2 [facility] propionate 0-11 } Sprays in ity of 50 00:00: each [place] mcg/actuati 00 nostril in Me dical on nasal the Branch spray morning. Insulin 2021-09 Yes [id number] Use as [facility] [place], 0-11 directed ity of Disposable, 00:00: to inject [place] (PEN 00 insulin Medical NEEDLE) 32 daily; Branch gauge x ICD-10 " Ndle code E11.8 loratadine 2021-09 Yes [id number] 10mg Take 1 U nivers 10 mg 0-11 tablet by ity of tablet 00:00: mouth at [place] [address] bedtime. Medical Branch prasugreL 2021-09 Yes [id number] 10mg Take 1 Un [place] 10 mg 0-11 tablet by ity of tablet 00:00: mouth in [place] the Medical morning. Branch Appointmen t needed. Please contact office. spironolact 2021-09 Yes [id number] 25mg Take 1 [facility] one 25 mg 0-11 tablet by ity o f tablet 00:00: mouth in [place] the Medical morning. Branch fluticasone 2021-09 Yes [id number] 1{spray Use 1-2 [facility] propionate 0-11 } Sprays in ity of 50 00:00: each [place] mcg/actuati 00 nostril in Me dical on nasal the Branch spray morning. Insulin 2021-09 Yes [id number] Use as [facility] [place], 0-11 directed ity of Disposable, 00:00: to inject [place] (PEN 00 insulin Medical NEEDLE) 32 daily; Branch gauge x ICD-10 " Ndle code E11.8 loratadine 2021-09 Yes [id number] 10mg Take 1 U nivers 10 mg 0-11 tablet by ity of tablet 00:00: mouth at [place] 00 bedtime. Medical Branch prasugreL 2021-09 Yes [id number] 10mg Take 1 Un [place] 10 mg 0-11 tablet by ity of tablet 00:00: mouth in [place] the Medical morning. Branch Appointmen t needed. Please contact office. spironolact 2021-09 Yes [id number] 25mg Take 1 [facility] one 25 mg 0-11 tablet by ity o f tablet 00:00: mouth in [place] 00 the Medical morning. Branch fluticasone 2021-09 Yes [id number] 1{spray Use 1-2 [facility] propionate 0-11 } Sprays in ity of 50 00:00: each [place] mcg/actuati 00 nostril in Me dical on nasal the Branch spray morning. Insulin 2021-09 Yes [id number] Use as [facility] [place], 0-11 directed ity of Disposable, 00:00: to inject [place] (PEN 00 insulin Medical NEEDLE) 32 daily; Branch gauge x ICD-10 " Ndle code E11.8 loratadine 2021-09 Yes [id number] 10mg Take 1 U nivers 10 mg 0-11 tablet by ity of tablet 00:00: mouth at [place] [address] bedtime. Medical Branch prasugreL 2021-09 Yes [id number] 10mg Take 1 Un [place] 10 mg 0-11 tablet by ity of tablet 00:00: mouth in [place] the Medical morning. Branch Appointmen t needed. Please contact office. spironolact 2021-09 Yes [id number] 25mg Take 1 [facility] one 25 mg 0-11 tablet by ity o f tablet 00:00: mouth in [place] the Medical morning. Branch fluticasone 2021-09 Yes [id number] 1{spray Use 1-2 [facility] propionate 0-11 } Sprays in ity of 50 00:00: each [place] mcg/actuati 00 nostril in Me dical on nasal the Branch spray morning. Insulin 2021-09 Yes [id number] Use as [facility] [place], 0-11 directed ity of Disposable, 00:00: to inject [place] (PEN 00 insulin Medical NEEDLE) 32 daily; Branch gauge x ICD-10 " Ndle code E11.8 loratadine 2021-09 Yes [id number] 10mg Take 1 U nivers 10 mg 0-11 tablet by ity of tablet 00:00: mouth at [place] [address] bedtime. Medical Branch prasugreL 2021-09 Yes [id number] 10mg Take 1 Un [place] 10 mg 0-11 tablet by ity of tablet 00:00: mouth in [place] the Medical morning. Branch Appointmen t needed. Please contact office. spironolact 2021-09 Yes [id number] 25mg Take 1 [facility] one 25 mg 0-11 tablet by ity o f tablet 00:00: mouth in [place] the Medical morning. Branch fluticasone 2021-09 Yes [id number] 1{spray Use 1-2 [facility] propionate 0-11 } Sprays in ity of 50 00:00: each [place] mcg/actuati 00 nostril in Me dical on nasal the Branch spray morning. Insulin 2021-09 Yes [id number] [facility] [place], 0-11 directed [facility]y of Disposable, 00:00: to inject [place] (PEN 00 insulin Medical NEEDLE) 32 daily; Branch gauge x ICD-10 " Ndle code E11.8 loratadine 2021-09 Yes [id number] 10mg Take 1 [facility] 10 mg 0-11 tablet by ity of tablet 00:00: mouth at [place] [address] bedtime. Medical Branch prasugreL 2021-09 Yes [id number] 10mg Take 1 [facility] 10 mg 0-11 tablet by ity of tablet 00:00: mouth in [place] the Medical morning. Branch Appointmen t needed. Please contact office. spironolact 2021-09 Yes [id number] 25mg Take 1 [facility] 25 mg 0-11 tablet by ity o f tablet 00:00: mouth in [place] the Medical morning. Branch fluticasone 2021-09 Yes [id number] 1{spray Use 1-2 [facility] propionate 0-11 } Sprays in ity of 50 00:00: each [place] mcg/actuati 00 nostril in Me dical on nasal the Branch spray morning. Insulin 2021-09 Yes [id number] Use as [facility] [place], 0-11 directed ity of Disposable, 00:00: to inject [place] (PEN 00 insulin Medical NEEDLE) 32 daily; Branch gauge x ICD-10 " Ndle code E11.8 loratadine 2021-09 Yes [id number] 10mg Take 1 [facility] 10 mg 0-11 tablet by ity of tablet 00:00: mouth at [place] 00 bedtime. Medical Branch prasugreL 2021-09 Yes [id number] 10mg Take 1 [facility] 10 mg 0-11 tablet by ity of tablet 00:00: mouth in [place] the Medical morning. Branch Appointmen t needed. Please contact office. spironolact 2021-09 Yes [id number] 25mg Take 1 [facility] 25 mg 0-11 tablet by ity o f tablet 00:00: mouth in [place] the Medical morning. Branch fluticasone 2021-09 Yes [id number] 1{spray Use 1-2 [facility] propionate 0-11 } Sprays in ity of 50 00:00: each [place] mcg/actuati 00 nostril in Me dical on nasal the Branch spray morning. Insulin 2021-09 Yes [id number] Use as [facility] [place], 0-11 directed ity of Disposable, 00:00: to inject [place] (PEN 00 insulin Medical NEEDLE) 32 daily; Branch gauge x ICD-10 " Ndle code E11.8 loratadine 2021-09 Yes [id number] 10mg Take 1 [facility] 10 mg 0-11 tablet by ity of tablet 00:00: mouth at [place] [address] bedtime. Medical Branch prasugreL 2021-09 Yes [id number] 10mg Take 1 [facility] 10 mg 0-11 tablet by ity of tablet 00:00: mouth in [place] the Medical morning. Branch Appointmen t needed. Please contact office. spironolact 2021-09 Yes [id number] 25mg Take 1 [facility] 25 mg 0-11 tablet by ity o f tablet 00:00: mouth in [place] the Medical morning. Branch fluticasone 2021-09 Yes [id number] 1{spray Use 1-2 [facility] propionate 0-11 } Sprays in ity of 50 00:00: each [place] mcg/actuati 00 nostril in Me dical on nasal the Branch spray morning. Insulin 2021-09 Yes [id number] Use as [facility] [place], 0-11 directed ity of Disposable, 00:00: to inject [place] (PEN 00 insulin Medical NEEDLE) 32 daily; Branch gauge x ICD-10 32" Ndle code E11.8 loratadine 2021-09 Yes [id number] 10mg Take 1 [facility] 10 mg 0-11 tablet by ity of tablet 00:00: mouth at [place] 00 bedtime. Medical Branch prasugreL 2021-09 Yes [id number] 10mg Take 1 [facility] 10 mg 0-11 tablet by ity of tablet 00:00: mouth in [place] the Medical morning. Branch Appointmen t needed. Please contact office. spironolact 2021-09 Yes [id number] 25mg Take 1 [facility] 25 mg 0-11 tablet by ity o f tablet 00:00: mouth in [place] the Medical morning. Branch fluticasone 2021-09 Yes [id number] 1{spray Use 1-2 [facility] propionate 0-11 } Sprays in ity of 50 00:00: each [place] mcg/actuati 00 nostril in Me dical on nasal the Branch spray morning. Insulin 2021-09 Yes [id number] Use as [facility] [place], 0-11 directed ity of Disposable, 00:00: to inject [place] (PEN 00 insulin Medical NEEDLE) 32 daily; Branch gauge x ICD-10 " Ndle code E11.8 loratadine 2021-09 Yes [id number] 10mg Take 1 [facility] 10 mg 0-11 tablet by ity of tablet 00:00: mouth at [place] 00 bedtime. Medical Branch prasugreL 2021-09 Yes [id number] 10mg Take 1 [facility] [place] 10 mg 0-11 tablet by ity of tablet 00:00: mouth in [place] the Medical morning. Branch Appointmen t needed. Please contact office. spironolact 2021-09 Yes [id number] 25mg Take 1 [facility] 25 mg 0-11 tablet by ity o f tablet 00:00: mouth in [place] the Medical morning. Branch fluticasone 2021-09 Yes [id number] 1{spray Use 1-2 [facility] propionate 0-11 } Sprays in ity of 50 00:00: each [place] mcg/actuati 00 nostril in Me dical on nasal the Branch spray morning. Insulin 2021-09 Yes [id number] Use as [facility] [place], 0-11 directed ity of Disposable, 00:00: to inject [place] (PEN 00 insulin Medical NEEDLE) 32 daily; Branch gauge x ICD-10 32" Ndle code E11.8 loratadine 2021-09 Yes [id number] 10mg Take 1 [facility] 10 mg 0-11 tablet by ity of tablet 00:00: mouth at [place] 00 bedtime. Medical Branch prasugreL 2021-09 Yes [id number] 10mg Take 1 [facility] 10 mg 0-11 tablet by ity of tablet 00:00: mouth in [place] the Medical morning. Branch Appointmen t needed. Please contact office. spironolact 2021-09 Yes [id number] 25mg Take 1 [facility] 25 mg 0-11 tablet by ity o f tablet 00:00: mouth in [place] the Medical morning. Branch fluticasone 2021-09 Yes [id number] 1{spray Use 1-2 [facility] propionate 0-11 } Sprays in ity of 50 00:00: each [place] mcg/actuati 00 nostril in Me dical on nasal the Branch spray morning. Insulin 2021-09 Yes [id number] Use as [facility] [place], 0-11 directed ity of Disposable, 00:00: to inject [place] (PEN 00 insulin Medical NEEDLE) 32 daily; Branch gauge x ICD-10 " Ndle code E11.8 loratadine 2021-09 Yes [id number] 10mg Take 1 [facility] 10 mg 0-11 tablet by ity of tablet 00:00: mouth at [place] 00 bedtime. Medical Branch prasugreL 2021-09 Yes [id number] 10mg Take 1 [facility] [place] 10 mg 0-11 tablet by ity of tablet 00:00: mouth in [place] the Medical morning. Branch Appointmen t needed. Please contact office. spironolact 2021-09 Yes [id number] 25mg Take 1 [facility] 25 mg 0-11 tablet by ity o f tablet 00:00: mouth in [place] the Medical morning. Branch fluticasone 2021-09 Yes [id number] 1{spray Use 1-2 [facility] propionate 0-11 } Sprays in ity of 50 00:00: each [place] mcg/actuati 00 nostril in Me dical on nasal the Branch spray morning. Insulin 2021-09 Yes [id number] Use as [facility] [place], 0-11 directed ity of Disposable, 00:00: to inject [place] (PEN 00 insulin Medical NEEDLE) 32 daily; Branch gauge x ICD-10 32" Ndle code E11.8 loratadine 2021-09 Yes [id number] 10mg Take 1 [facility] 10 mg 0-11 tablet by ity of tablet 00:00: mouth at [place] 00 bedtime. Medical Branch prasugreL 2021-09 Yes [id number] 10mg Take 1 [facility] [place] 10 mg 0-11 tablet by ity of tablet 00:00: mouth in [place] the Medical morning. Branch Appointmen t needed. Please contact office. spironolact 2021-09 Yes [id number] 25mg Take 1 [facility] 25 mg 0-11 tablet by ity o f tablet 00:00: mouth in [place] 00 the Medical morning. Branch fluticasone 2021-09 Yes [id number] 1{spray Use 1-2 [facility] propionate 0-11 } Sprays in ity of 50 00:00: each [place] mcg/actuati 00 nostril in Me dical on nasal the Branch spray morning. Insulin 2021-09 Yes [id number] Use as [facility] [place], 0-11 directed ity of Disposable, 00:00: to inject [place] (PEN 00 insulin Medical NEEDLE) 32 daily; Branch gauge x ICD-10 5/32" Ndle code E11.8 loratadine 2021-09 Yes [id number] 10mg Take 1 [facility] 10 mg 0-11 tablet by ity of tablet 00:00: mouth at [place] 00 bedtime. Medical Branch prasugreL 2021-09 Yes [id number] 10mg Take 1 [facility] [place] 10 mg 0-11 tablet by ity of tablet 00:00: mouth in [place] the Medical morning. Branch Appointmen t needed. Please contact office. spironolact 2021-09 Yes [id number] 25mg Take 1 [facility] 25 mg 0-11 tablet by ity o f tablet 00:00: mouth in [place] 00 the Medical morning. Branch fluticasone 2021-09 Yes [id number] 1{spray Use 1-2 [facility] propionate 0-11 } Sprays in ity of 50 00:00: each [place] mcg/actuati 00 nostril in Me dical on nasal the Branch spray morning. Insulin 2021-09 Yes [id number] Use as [facility] [place], 0-11 directed ity of Disposable, 00:00: to inject [place] (PEN 00 insulin Medical NEEDLE) 32 daily; Branch gauge x ICD-10 5/32" Ndle code E11.8 loratadine 2021-09 Yes [id number] 10mg Take 1 [facility] 10 mg 0-11 tablet by ity of tablet 00:00: mouth at [place] 00 bedtime. Medical Branch prasugreL 2021-09 Yes [id number] 10mg Take 1 [facility] [place] 10 mg 0-11 tablet by ity of tablet 00:00: mouth in [place] the Medical morning. Branch Appointmen t needed. Please contact office. spironolact 2021-09 Yes [id number] 25mg Take 1 [facility] 25 mg 0-11 tablet by ity o f tablet 00:00: mouth in [place] 00 the Medical morning. Branch fluticasone 2021-09 Yes [id number] 1{spray Use 1-2 [facility] propionate 0-11 } Sprays in ity of 50 00:00: each [place] mcg/actuati 00 nostril in Me dical on nasal the Branch spray morning. Insulin 2021-09 Yes [id number] Use as [facility] [place], 0-11 directed ity of Disposable, 00:00: to inject [place] (PEN 00 insulin Medical NEEDLE) 32 daily; Branch gauge x ICD-10 5/32" Ndle code E11.8 loratadine 2021-09 Yes [id number] 10mg Take 1 [facility] 10 mg 0-11 tablet by ity of tablet 00:00: mouth at [place] 00 bedtime. Medical Branch prasugreL 2021-09 Yes [id number] 10mg Take 1 [facility] [place] 10 mg 0-11 tablet by ity of tablet 00:00: mouth in [place] the Medical morning. Branch Appointmen t needed. Please contact office. spironolact 2021-09 Yes [id number] 25mg Take 1 [facility] 25 mg 0-11 tablet by ity o f tablet 00:00: mouth in [place] 00 the Medical morning. Branch fluticasone 2021-09 Yes [id number] 1{spray Use 1-2 [facility] propionate 0-11 } Sprays in ity of 50 00:00: each [place] mcg/actuati 00 nostril in Me dical on nasal the Branch spray morning. Insulin 2021-09 Yes [id number] Use as [facility] [place], 0-11 directed ity of Disposable, 00:00: to inject [place] (PEN 00 insulin Medical NEEDLE) 32 daily; Branch gauge x ICD-10 5/32" Ndle code E11.8 loratadine 2021-09 Yes [id number] 10mg Take 1 [facility] 10 mg 0-11 tablet by ity of tablet 00:00: mouth at [place] 00 bedtime. Medical Branch prasugreL 2021-09 Yes [id number] 10mg Take 1 [facility] [place] 10 mg 0-11 tablet by ity of tablet 00:00: mouth in [place] the Medical morning. Branch Appointmen t needed. Please contact office. spironolact 2021-09 Yes [id number] 25mg Take 1 [facility] one 25 mg 0-11 tablet by ity o f tablet 00:00: mouth in [place] the Medical morning. Branch fluticasone 2021-09 Yes [id number] 1{spray Use 1-2 [facility] propionate 0-11 } Sprays in ity of 50 00:00: each [place] mcg/actuati 00 nostril in Me dical on nasal the Branch spray morning. Insulin 2021-09 Yes [id number] Use as [facility] [place], 0-11 directed ity of Disposable, 00:00: to inject [place] (PEN 00 insulin Medical NEEDLE) 32 daily; Branch gauge x ICD-10 5/32" Ndle code E11.8 loratadine 2021-09 Yes [id number] 10mg Take 1 [facility] 10 mg 0-11 tablet by ity of tablet 00:00: mouth at [place] 00 bedtime. Medical Branch prasugreL 2021-09 Yes [id number] 10mg Take 1 [facility] [place] 10 mg 0-11 tablet by ity of tablet 00:00: mouth in [place] the Medical morning. Branch Appointmen t needed. Please contact office. spironolact 2021-09 Yes [id number] 25mg Take 1 [facility] 25 mg 0-11 tablet by ity o f tablet 00:00: mouth in [place] the Medical morning. Branch fluticasone 2021-09 Yes [id number] 1{spray Use 1-2 [facility] propionate 0-11 } Sprays in ity of 50 00:00: each [place] mcg/actuati 00 nostril in Me dical on nasal the Branch spray morning. Insulin 2021-09 Yes [id number] Use as [facility] [place], 0-11 directed ity of Disposable, 00:00: to inject [place] (PEN 00 insulin Medical NEEDLE) 32 daily; Branch gauge x ICD-10 5/32" Ndle code E11.8 loratadine 2021-09 Yes [id number] 10mg Take 1 [facility] 10 mg 0-11 tablet by ity of tablet 00:00: mouth at [place] 00 bedtime. Medical Branch prasugreL 2021-09 Yes [id number] 10mg Take 1 [facility] [place] 10 mg 0-11 tablet by ity of tablet 00:00: mouth in [place] the Medical morning. Branch Appointmen t needed. Please contact office. spironolact 2021-09 Yes [id number] 25mg Take 1 [facility] 25 mg 0-11 tablet by ity o f tablet 00:00: mouth in [place] the Medical morning. Branch fluticasone 2021-09 Yes [id number] 1{spray Use 1-2 [facility] propionate 0-11 } Sprays in ity of 50 00:00: each [place] mcg/actuati 00 nostril in Me dical on nasal the Branch spray morning. Insulin 2021-09 Yes [id number] Use as [facility] [place], 0-11 directed ity of Disposable, 00:00: to inject [place] (PEN 00 insulin Medical NEEDLE) 32 daily; Branch gauge x ICD-10 5/32" Ndle code E11.8 loratadine 2021-09 Yes [id number] 10mg Take 1 [facility] 10 mg 0-11 tablet by ity of tablet 00:00: mouth at [place] 00 bedtime. Medical Branch prasugreL 2021-09 Yes [id number] 10mg Take 1 [facility] [place] 10 mg 0-11 tablet by ity of tablet 00:00: mouth in [place] the Medical morning. Branch Appointmen t needed. Please contact office. spironolact 2021-09 Yes [id number] 25mg Take 1 [facility] one 25 mg 0-11 tablet by ity o f tablet 00:00: mouth in [place] the Medical morning. Branch fluticasone 2021-09 Yes [id number] 1{spray Use 1-2 [facility] propionate 0-11 } Sprays in ity of 50 00:00: each [place] mcg/actuati 00 nostril in Me dical on nasal the Branch spray morning. Insulin 2021-09 Yes [id number] Use as [facility] [place], 0-11 directed ity of Disposable, 00:00: to inject [place] (PEN 00 insulin Medical NEEDLE) 32 daily; Branch gauge x ICD-10 5/32" Ndle code E11.8 loratadine 2021-09 Yes [id number] 10mg Take 1 [facility] 10 mg 0-11 tablet by ity of tablet 00:00: mouth at [place] 00 bedtime. Medical Branch prasugreL 2021-09 Yes [id number] 10mg Take 1 [facility] [place] 10 mg 0-11 tablet by ity of tablet 00:00: mouth in [place] the Medical morning. Branch Appointmen t needed. Please contact office. spironolact 2021-09 Yes [id number] 25mg Take 1 [facility] 25 mg 0-11 tablet by ity o f tablet 00:00: mouth in [place] the Medical morning. Branch fluticasone 2021-09 Yes [id number] 1{spray Use 1-2 [facility] propionate 0-11 } Sprays in ity of 50 00:00: each [place] mcg/actuati 00 nostril in Me dical on nasal the Branch spray morning. Insulin 2021-09 Yes [id number] Use as [facility] [place], 0-11 directed ity of Disposable, 00:00: to inject [place] (PEN 00 insulin Medical NEEDLE) 32 daily; Branch gauge x ICD-10 5/32" Ndle code E11.8 loratadine 2021-09 Yes [id number] 10mg Take 1 [facility] 10 mg 0-11 tablet by ity of tablet 00:00: mouth at [place] 00 bedtime. Medical Branch prasugreL 2021-09 Yes [id number] 10mg Take 1 [facility] 10 mg 0-11 tablet by ity of tablet 00:00: mouth in [place] the Medical morning. Branch Appointmen t needed. Please contact office. spironolact 2021-09 Yes [id number] 25mg Take 1 [facility] 25 mg 0-11 tablet by ity o f tablet 00:00: mouth in [place] the Medical morning. Branch fluticasone 2021-09 Yes [id number] 1{spray Use 1-2 [facility] propionate 0-11 } Sprays in ity of 50 00:00: each [place] mcg/actuati 00 nostril in Me dical on nasal the Branch spray morning. Insulin 2021-09 Yes [id number] Use as [facility] [place], 0-11 directed ity of Disposable, 00:00: to inject [place] (PEN 00 insulin Medical NEEDLE) 32 daily; Branch gauge x ICD-10 " Ndle code E11.8 loratadine 2021-09 Yes [id number] 10mg Take 1 [facility] 10 mg 0-11 tablet by ity of tablet 00:00: mouth at [place] 00 bedtime. Medical Branch prasugreL 2021-09 Yes [id number] 10mg Take 1 [facility] 10 mg 0-11 tablet by ity of tablet 00:00: mouth in [place] the Medical morning. Branch Appointmen t needed. Please contact office. spironolact 2021-09 Yes [id number] 25mg Take 1 [facility] one 25 mg 0-11 tablet by ity o f tablet 00:00: mouth in [place] the Medical morning. Branch fluticasone 2021-09 Yes [id number] 1{spray Use 1-2 [facility] propionate 0-11 } Sprays in ity of 50 00:00: each [place] mcg/actuati 00 nostril in Me dical on nasal the Branch spray morning. Insulin 2021-09 Yes [id number] Use as [facility] [place], 0-11 directed ity of Disposable, 00:00: to inject [place] (PEN 00 insulin Medical NEEDLE) 32 daily; Branch gauge x ICD-10 " Ndle code E11.8 loratadine 2021-09 Yes [id number] 10mg Take 1 [facility] 10 mg 0-11 tablet by ity of tablet 00:00: mouth at [place] 00 bedtime. Medical Branch prasugreL 2021-09 Yes [id number] 10mg Take 1 [facility] [place] 10 mg 0-11 tablet by ity of tablet 00:00: mouth in [place] the Medical morning. Branch Appointmen t needed. Please contact office. spironolact 2021-09 Yes [id number] 25mg Take 1 [facility] one 25 mg 0-11 tablet by ity o f tablet 00:00: mouth in [place] 00 the Medical morning. Branch fluticasone 2021-09 Yes [id number] 1{spray Use 1-2 [facility] propionate 0-11 } Sprays in ity of 50 00:00: each [place] mcg/actuati 00 nostril in Me dical on nasal the Branch spray morning. Insulin 2021-09 Yes [id number] Use as [facility] [place], 0-11 directed ity of Disposable, 00:00: to inject [place] (PEN 00 insulin Medical NEEDLE) 32 daily; Branch gauge x ICD-10 " Ndle code E11.8 loratadine 2021-09 Yes [id number] 10mg Take 1 [facility] 10 mg 0-11 tablet by ity of tablet 00:00: mouth at [place] 00 bedtime. Medical Branch prasugreL 2021-09 Yes [id number] 10mg Take 1 [facility] [place] 10 mg 0-11 tablet by ity of tablet 00:00: mouth in [place] 00 the Medical morning. Branch Appointmen t needed. Please contact office. spironolact 2021-09 Yes [id number] 25mg Take 1 [facility] 25 mg 0-11 tablet by ity o f tablet 00:00: mouth in [place] 00 the Medical morning. Branch fluticasone 2021-09 Yes [id number] 1{spray Use 1-2 [facility] propionate 0-11 } Sprays in ity of 50 00:00: each [place] mcg/actuati 00 nostril in Me dical on nasal the Branch spray morning. Insulin 2021-09 Yes [id number] Use as [facility] [place], 0-11 directed ity of Disposable, 00:00: to inject [place] (PEN 00 insulin Medical NEEDLE) 32 daily; Branch gauge x ICD-10 " Ndle code E11.8 loratadine 2021-09 Yes [id number] 10mg Take 1 [facility] 10 mg 0-11 tablet by ity of tablet 00:00: mouth at [place] 00 bedtime. Medical Branch prasugreL 2021-09 Yes [id number] 10mg Take 1 [facility] [place] 10 mg 0-11 tablet by ity of tablet 00:00: mouth in [place] 00 the Medical morning. Branch Appointmen t needed. Please contact office. spironolact 2021-09 Yes [id number] 25mg Take 1 [facility] one 25 mg 0-11 tablet by ity o f tablet 00:00: mouth in [place] 00 the Medical morning. Branch fluticasone 2021-09 Yes [id number] 1{spray Use 1-2 [facility] propionate 0-11 } Sprays in ity of 50 00:00: each [place] mcg/actuati 00 nostril in Me dical on nasal the Branch spray morning. Insulin 2021-09 Yes [id number] Use as [facility] [place], 0-11 directed ity of Disposable, 00:00: to inject [place] (PEN 00 insulin Medical NEEDLE) 32 daily; Branch gauge x ICD-10 " Ndle code E11.8 loratadine 2021-09 Yes [id number] 10mg Take 1 [facility] 10 mg 0-11 tablet by ity of tablet 00:00: mouth at [place] 00 bedtime. Medical Branch prasugreL 2021-09 Yes [id number] 10mg Take 1 [facility] [place] 10 mg 0-11 tablet by ity of tablet 00:00: mouth in [place] 00 the Medical morning. Branch Appointmen t needed. Please contact office. spironolact 2021-09 Yes [id number] 25mg Take 1 [facility] 25 mg 0-11 tablet by ity o f tablet 00:00: mouth in [place] the Medical morning. Branch fluticasone 2021-09 Yes [id number] 1{spray Use 1-2 [facility] propionate 0-11 } Sprays in ity of 50 00:00: each [place] mcg/actuati 00 nostril in Me dical on nasal the Branch spray morning. Insulin 2021-09 Yes [id number] Use as [facility] [place], 0-11 directed ity of Disposable, 00:00: to inject [place] (PEN 00 insulin Medical NEEDLE) 32 daily; Branch gauge x ICD-10 " Ndle code E11.8 loratadine 2021-09 Yes [id number] 10mg Take 1 [facility] 10 mg 0-11 tablet by ity of tablet 00:00: mouth at [place] 00 bedtime. Medical Branch prasugreL 2021-09 Yes [id number] 10mg Take 1 [facility] [place] 10 mg 0-11 tablet by ity of tablet 00:00: mouth in [place] 00 the Medical morning. Branch Appointmen t needed. Please contact office. spironolact 2021-09 Yes [id number] 25mg Take 1 [facility] one 25 mg 0-11 tablet by ity o f tablet 00:00: mouth in [place] 00 the Medical morning. Branch fluticasone 2021-09 Yes [id number] 1{spray Use 1-2 [facility] propionate 0-11 } Sprays in ity of 50 00:00: each [place] mcg/actuati 00 nostril in Me dical on nasal the Branch spray morning. Insulin 2021-09 Yes [id number] Use as [facility] [place], 0-11 directed ity of Disposable, 00:00: to inject [place] (PEN 00 insulin Medical NEEDLE) 32 daily; Branch gauge x ICD-10 532" Ndle code E11.8 loratadine 2021-09 Yes [id number] 10mg Take 1 [facility] 10 mg 0-11 tablet by ity of tablet 00:00: mouth at [place] 00 bedtime. Medical Branch prasugreL 2021-09 Yes [id number] 10mg Take 1 [facility] 10 mg 0-11 tablet by ity of tablet 00:00: mouth in [place] the Medical morning. Branch Appointmen t needed. Please contact office. spironolact 2021-09 Yes [id number] 25mg Take 1 [facility] 25 mg 0-11 tablet by ity o f tablet 00:00: mouth in [place] the Medical morning. Branch fluticasone 2021-09 Yes [id number] 1{spray Use 1-2 [facility] propionate 0-11 } Sprays in ity of 50 00:00: each [place] mcg/actuati 00 nostril in Me dical on nasal the Branch spray morning. Insulin 2021-09 Yes [id number] Use as [facility] [place], 0-11 directed ity of Disposable, 00:00: to inject [place] (PEN 00 insulin Medical NEEDLE) 32 daily; Branch gauge x ICD-10 32" Ndle code E11.8 loratadine 2021-09 Yes [id number] 10mg Take 1 [facility] 10 mg 0-11 tablet by ity of tablet 00:00: mouth at [place] 00 bedtime. Medical Branch prasugreL 2021-09 Yes [id number] 10mg Take 1 [facility] 10 mg 0-11 tablet by ity of tablet 00:00: mouth in [place] 00 the Medical morning. Branch Appointmen t needed. Please contact office. spironolact 2021-09 Yes [id number] 25mg Take 1 [facility] 25 mg 0-11 tablet by ity o f tablet 00:00: mouth in [place] 00 the Medical morning. Branch fluticasone 2021-09 Yes [id number] 1{spray Use 1-2 [facility] propionate 0-11 } Sprays in ity of 50 00:00: each [place] mcg/actuati 00 nostril in Me dical on nasal the Branch spray morning. Insulin 2021-09 Yes [id number] Use as [facility] [place], 0-11 directed ity of Disposable, 00:00: to inject [place] (PEN 00 insulin Medical NEEDLE) 32 daily; Branch gauge x ICD-10 5/32" Ndle code E11.8 loratadine 2021-09 Yes [id number] 10mg Take 1 [facility] 10 mg 0-11 tablet by ity of tablet 00:00: mouth at [place] 00 bedtime. Medical Branch prasugreL 2021-09 Yes [id number] 10mg Take 1 [facility] 10 mg 0-11 tablet by ity of tablet 00:00: mouth in [place] the Medical morning. Branch Appointmen t needed. Please contact office. spironolact 2021-09 Yes [id number] 25mg Take 1 [facility] one 25 mg 0-11 tablet by ity o f tablet 00:00: mouth in [place] the Medical morning. Branch fluticasone 2021-09 Yes [id number] 1{spray Use 1-2 [facility] propionate 0-11 } Sprays in ity of 50 00:00: each [place] mcg/actuati 00 nostril in Me dical on nasal the Branch spray morning. Insulin 2021-09 Yes [id number] Use as [facility] [place], 0-11 directed ity of Disposable, 00:00: to inject [place] (PEN 00 insulin Medical NEEDLE) 32 daily; Branch gauge x ICD-10 532" Ndle code E11.8 loratadine 2021-09 Yes [id number] 10mg Take 1 [facility] 10 mg 0-11 tablet by ity of tablet 00:00: mouth at [place] 00 bedtime. Medical Branch prasugreL 2021-09 Yes [id number] 10mg Take 1 [facility] 10 mg 0-11 tablet by ity of tablet 00:00: mouth in [place] 00 the Medical morning. Branch Appointmen t needed. Please contact office. spironolact 2021-09 Yes [id number] 25mg Take 1 [facility] one 25 mg 0-11 tablet by ity o f tablet 00:00: mouth in [place] 00 the Medical morning. Branch fluticasone 2021-09 Yes [id number] 1{spray Use 1-2 [facility] propionate 0-11 } Sprays in ity of 50 00:00: each [place] mcg/actuati 00 nostril in Me dical on nasal the Branch spray morning. Insulin 2021-09 Yes [id number] Use as [facility] [place], 0-11 directed ity of Disposable, 00:00: to inject [place] (PEN 00 insulin Medical NEEDLE) 32 daily; Branch gauge x ICD-10 5/32" Ndle code E11.8 loratadine 2021-09 Yes [id number] 10mg Take 1 [facility] 10 mg 0-11 tablet by ity of tablet 00:00: mouth at [place] 00 bedtime. Medical Branch prasugreL 2021-09 Yes [id number] 10mg Take 1 [facility] 10 mg 0-11 tablet by ity of tablet 00:00: mouth in [place] the Medical morning. Branch Appointmen t needed. Please contact office. spironolact 2021-09 Yes [id number] 25mg Take 1 [facility] one 25 mg 0-11 tablet by ity o f tablet 00:00: mouth in [place] the Medical morning. Branch fluticasone 2021-09 Yes [id number] 1{spray Use 1-2 [facility] propionate 0-11 } Sprays in ity of 50 00:00: each [place] mcg/actuati 00 nostril in Me dical on nasal the Branch spray morning. Insulin 2021-09 Yes [id number] Use as [facility] [place], 0-11 directed ity of Disposable, 00:00: to inject [place] (PEN 00 insulin Medical NEEDLE) 32 daily; Branch gauge x ICD-10 532" Ndle code E11.8 loratadine 2021-09 Yes [id number] 10mg Take 1 [facility] 10 mg 0-11 tablet by ity of tablet 00:00: mouth at [place] 00 bedtime. Medical Branch prasugreL 2021-09 Yes [id number] 10mg Take 1 [facility] 10 mg 0-11 tablet by ity of tablet 00:00: mouth in [place] the Medical morning. Branch Appointmen t needed. Please contact office. spironolact 2021-09 Yes [id number] 25mg Take 1 [facility] one 25 mg 0-11 tablet by ity o f tablet 00:00: mouth in [place] the Medical morning. Branch fluticasone 2021-09 Yes [id number] 1{spray Use 1-2 [facility] propionate 0-11 } Sprays in ity of 50 00:00: each [place] mcg/actuati 00 nostril in Me dical on nasal the Branch spray morning. Insulin 2021-09 Yes [id number] Use as [facility] [place], 0-11 directed ity of Disposable, 00:00: to inject [place] (PEN 00 insulin Medical NEEDLE) 32 daily; Branch gauge x ICD-10 " Ndle code E11.8 loratadine 2021-09 Yes [id number] 10mg Take 1 [facility] nivers 10 mg 0-11 tablet by ity of tablet 00:00: mouth at [place] 00 bedtime. Medical Branch prasugreL 2021-09 Yes [id number] 10mg Take 1 Un [place] 10 mg 0-11 tablet by ity of tablet 00:00: mouth in [place] the Medical morning. Branch Appointmen t needed. Please contact office. spironolact 2021-09 Yes [id number] 25mg Take 1 [facility] one 25 mg 0-11 tablet by ity o f tablet 00:00: mouth in [place] the Medical morning. Branch fluticasone 2021-09 Yes [id number] 1{spray Use 1-2 [facility] propionate 0-11 } Sprays in ity of 50 00:00: each [place] mcg/actuati 00 nostril in Me dical on nasal the Branch spray morning. Insulin 2021-09 Yes [id number] Use as [facility] [place], 0-11 directed ity of Disposable, 00:00: to inject [place] (PEN 00 insulin Medical NEEDLE) 32 daily; Branch gauge x ICD-10 32" Ndle code E11.8 loratadine 2021-09 Yes [id number] 10mg Take 1 [facility] nivers 10 mg 0-11 tablet by ity of tablet 00:00: mouth at [place] [address] bedtime. Medical Branch prasugreL 2021-09 Yes [id number] 10mg Take 1 Un [place] 10 mg 0-11 tablet by ity of tablet 00:00: mouth in [place] the Medical morning. Branch Appointmen t needed. Please contact office. spironolact 2021-09 Yes [id number] 25mg Take 1 [facility] one 25 mg 0-11 tablet by ity o f tablet 00:00: mouth in [place] the Medical morning. Branch fluticasone 2021-09 Yes [id number] 1{spray Use 1-2 [facility] propionate 0-11 } Sprays in ity of 50 00:00: each [place] mcg/actuati 00 nostril in Me dical on nasal the Branch spray morning. Insulin 2021-09 Yes [id number] Use as [facility] [place], 0-11 directed ity of Disposable, 00:00: to inject [place] (PEN 00 insulin Medical NEEDLE) 32 daily; Branch gauge x ICD-10 " Ndle code E11.8 loratadine 2021-09 Yes [id number] 10mg Take 1 [facility] nivers 10 mg 0-11 tablet by ity of tablet 00:00: mouth at [place] 00 bedtime. Medical Branch prasugreL 2021-09 Yes [id number] 10mg Take 1 Un [place] 10 mg 0-11 tablet by ity of tablet 00:00: mouth in [place] the Medical morning. Branch Appointmen t needed. Please contact office. spironolact 2021-09 Yes [id number] 25mg Take 1 [facility] one 25 mg 0-11 tablet by ity o f tablet 00:00: mouth in [place] the Medical morning. Branch fluticasone 2021-09 Yes [id number] 1{spray Use 1-2 [facility] propionate 0-11 } Sprays in ity of 50 00:00: each [place] mcg/actuati 00 nostril in Me dical on nasal the Branch spray morning. Insulin 2021-09 Yes [id number] Use as [facility] [place], 0-11 directed ity of Disposable, 00:00: to inject [place] (PEN 00 insulin Medical NEEDLE) 32 daily; Branch gauge x ICD-10 " Ndle code E11.8 loratadine 2021-09 Yes [id number] 10mg Take 1 [facility] nivers 10 mg 0-11 tablet by ity of tablet 00:00: mouth at [place] 00 bedtime. Medical Branch prasugreL 2021-09 Yes [id number] 10mg Take 1 [facility] [place] 10 mg 0-11 tablet by ity of tablet 00:00: mouth in [place] the Medical morning. Branch Appointmen t needed. Please contact office. spironolact 2021-09 Yes [id number] 25mg Take 1 [facility] one 25 mg 0-11 tablet by ity o f tablet 00:00: mouth in [place] the Medical morning. Branch fluticasone 2021-09 Yes [id number] 1{spray Use 1-2 [facility] propionate 0-11 } Sprays in ity of 50 00:00: each [place] mcg/actuati 00 nostril in Me dical on nasal the Branch spray morning. Insulin 2021-09 Yes [id number] Use as [facility] [place], 0-11 directed ity of Disposable, 00:00: to inject [place] (PEN 00 insulin Medical NEEDLE) 32 daily; Branch gauge x ICD-10 " Ndle code E11.8 loratadine 2021-09 Yes [id number] 10mg Take 1 [facility] nivers 10 mg 0-11 tablet by ity of tablet 00:00: mouth at [place] 00 bedtime. Medical Branch prasugreL 2021-09 Yes [id number] 10mg Take 1 [facility] [place] 10 mg 0-11 tablet by ity of tablet 00:00: mouth in [place] the Medical morning. Branch Appointmen t needed. Please contact office. spironolact 2021-09 Yes [id number] 25mg Take 1 [facility] one 25 mg 0-11 tablet by ity o f tablet 00:00: mouth in [place] the Medical morning. Branch fluticasone 2021-09 Yes [id number] 1{spray Use 1-2 [facility] propionate 0-11 } Sprays in ity of 50 00:00: each [place] mcg/actuati 00 nostril in Me dical on nasal the Branch spray morning. Insulin 2021-09 Yes [id number] Use as [facility] [place], 0-11 directed ity of Disposable, 00:00: to inject [place] (PEN 00 insulin Medical NEEDLE) 32 daily; Branch gauge x ICD-10 " Ndle code E11.8 loratadine 2021-09 Yes [id number] 10mg Take 1 [facility] nivers 10 mg 0-11 tablet by ity of tablet 00:00: mouth at [place] 00 bedtime. Medical Branch prasugreL 2021-09 Yes [id number] 10mg Take 1 [facility] [place] 10 mg 0-11 tablet by ity of tablet 00:00: mouth in [place] the Medical morning. Branch Appointmen t needed. Please contact office. spironolact 2021-09 Yes [id number] 25mg Take 1 [facility] one 25 mg 0-11 tablet by ity o f tablet 00:00: mouth in [place] the Medical morning. Branch fluticasone 2021-09 Yes [id number] 1{spray Use 1-2 [facility] propionate 0-11 } Sprays in ity of 50 00:00: each [place] mcg/actuati 00 nostril in Me dical on nasal the Branch spray morning. Insulin 2021-09 Yes [id number] Use as [facility] [place], 0-11 directed ity of Disposable, 00:00: to inject [place] (PEN 00 insulin Medical NEEDLE) 32 daily; Branch gauge x ICD-10 " Ndle code E11.8 loratadine 2021-09 Yes [id number] 10mg Take 1 [facility] nivers 10 mg 0-11 tablet by ity of tablet 00:00: mouth at [place] [address] bedtime. Medical Branch prasugreL 2021-09 Yes [id number] 10mg Take 1 [facility] [place] 10 mg 0-11 tablet by ity of tablet 00:00: mouth in [place] the Medical morning. Branch Appointmen t needed. Please contact office. spironolact 2021-09 Yes [id number] 25mg Take 1 [facility] one 25 mg 0-11 tablet by ity o f tablet 00:00: mouth in [place] the Medical morning. Branch fluticasone 2021-09 Yes [id number] 1{spray Use 1-2 [facility] propionate 0-11 } Sprays in ity of 50 00:00: each [place] mcg/actuati 00 nostril in Me dical on nasal the Branch spray morning. Insulin 2021-09 Yes [id number] Use as [facility] [place], 0-11 directed ity of Disposable, 00:00: to inject [place] (PEN 00 insulin Medical NEEDLE) 32 daily; Branch gauge x ICD-10 " Ndle code E11.8 loratadine 2021-09 Yes [id number] 10mg Take 1 [facility] nivers 10 mg 0-11 tablet by ity of tablet 00:00: mouth at [place] [address] bedtime. Medical Branch prasugreL 2021-09 Yes [id number] 10mg Take 1 [facility] [place] 10 mg 0-11 tablet by ity of tablet 00:00: mouth in [place] the Medical morning. Branch Appointmen t needed. Please contact office. spironolact 2021-09 Yes [id number] 25mg Take 1 [facility] one 25 mg 0-11 tablet by ity o f tablet 00:00: mouth in [place] 00 the Medical morning. Branch fluticasone 2021-09 Yes [id number] 1{spray Use 1-2 [facility] propionate 0-11 } Sprays in ity of 50 00:00: each [place] mcg/actuati 00 nostril in Me dical on nasal the Branch spray morning. Insulin 2021-09 Yes [id number] Use as [facility] [place], 0-11 directed ity of Disposable, 00:00: to inject [place] (PEN 00 insulin Medical NEEDLE) 32 daily; Branch gauge x ICD-10 " Ndle code E11.8 loratadine 2021-09 Yes [id number] 10mg Take 1 [facility] nivers 10 mg 0-11 tablet by ity of tablet 00:00: mouth at [place] 00 bedtime. Medical Branch prasugreL 2021-09 Yes [id number] 10mg Take 1 [facility] [place] 10 mg 0-11 tablet by ity of tablet 00:00: mouth in [place] the Medical morning. Branch Appointmen t needed. Please contact office. spironolact 2021-09 Yes [id number] 25mg Take 1 [facility] one 25 mg 0-11 tablet by ity o f tablet 00:00: mouth in [place] the Medical morning. Branch fluticasone 2021-09 Yes [id number] 1{spray Use 1-2 [facility] propionate 0-11 } Sprays in ity of 50 00:00: each [place] mcg/actuati 00 nostril in Me dical on nasal the Branch spray morning. Insulin 2021-09 Yes [id number] Use as [facility] [place], 0-11 directed ity of Disposable, 00:00: to inject [place] (PEN 00 insulin Medical NEEDLE) 32 daily; Branch gauge x ICD-10 " Ndle code E11.8 loratadine 2021-09 Yes [id number] 10mg Take 1 [facility] nivers 10 mg 0-11 tablet by ity of tablet 00:00: mouth at [place] 00 bedtime. Medical Branch prasugreL 2021-09 Yes [id number] 10mg Take 1 [facility] [place] 10 mg 0-11 tablet by ity of tablet 00:00: mouth in [place] 00 the Medical morning. Branch Appointmen t needed. Please contact office. spironolact 2021-09 Yes [id number] 25mg Take 1 [facility] one 25 mg 0-11 tablet by ity o f tablet 00:00: mouth in [place] the Medical morning. Branch Insulin 2021-09 Yes [id number] Use as [facility] [place], 0-11 directed ity of Disposable, 00:00: to inject [place] (PEN 00 insulin Medical NEEDLE) 32 daily; Branch gauge x ICD-10 5/32" Ndle code E11.8 loratadine 2021-09 Yes [id number] 10mg Take 1 [facility] nivers 10 mg 0-11 tablet by ity of tablet 00:00: mouth at [place] [address] bedtime. Medical Branch prasugreL 2021-09 Yes [id number] 10mg Take 1 [facility] [place] 10 mg 0-11 tablet by ity of tablet 00:00: mouth in [place] the Medical morning. Branch Appointmen t needed. Please contact office. spironolact 2021-09 Yes [id number] 25mg Take 1 [facility] one 25 mg 0-11 tablet by ity o f tablet 00:00: mouth in [place] the Medical morning. Branch Insulin 2021-09 Yes [id number] Use as [facility] [place], 0-11 directed ity of Disposable, 00:00: to inject [place] (PEN 00 insulin Medical NEEDLE) 32 daily; Branch gauge x ICD-10 5/32" Ndle code E11.8 loratadine 2021-09 Yes [id number] 10mg Take 1 [facility] nivers 10 mg 0-11 tablet by ity of tablet 00:00: mouth at [place] [address] bedtime. Medical Branch prasugreL 2021-09 Yes [id number] 10mg Take 1 [facility] [place] 10 mg 0-11 tablet by ity of tablet 00:00: mouth in [place] the Medical morning. Branch Appointmen t needed. Please contact office. spironolact 2021-09 Yes [id number] 25mg Take 1 [facility] one 25 mg 0-11 tablet by ity o f tablet 00:00: mouth in [place] the Medical morning. Branch Insulin 2021-09 Yes [id number] Use as [facility] [place], 0-11 directed ity of Disposable, 00:00: to inject [place] (PEN 00 insulin Medical NEEDLE) 32 daily; Branch gauge x ICD-10 5/32" Ndle code E11.8 loratadine 2021-09 Yes [id number] 10mg Take 1 [facility] nivers 10 mg 0-11 tablet by ity of tablet 00:00: mouth at [place] 00 bedtime. Medical Branch prasugreL 2021-09 Yes [id number] 10mg Take 1 [facility] [place] 10 mg 0-11 tablet by ity of tablet 00:00: mouth in [place] the Medical morning. Branch Appointmen t needed. Please contact office. Insulin 2021-09 Yes [id number] Use as [facility] [place], 0-11 directed ity of Disposable, 00:00: to inject [place] (PEN 00 insulin Medical NEEDLE) 32 daily; Branch gauge x ICD-10 5/32" Ndle code E11.8 loratadine 2021-09 Yes [id number] 10mg Take 1 [facility] nivers 10 mg 0-11 tablet by ity of tablet 00:00: mouth at [place] 00 bedtime. Medical Branch prasugreL 2021-09 Yes [id number] 10mg Take 1 [facility] [place] 10 mg 0-11 tablet by ity of tablet 00:00: mouth in [place] the Medical morning. Branch Appointmen t needed. Please contact office. Insulin 2021-09 Yes [id number] Use as [facility] [place], 0-11 directed ity of Disposable, 00:00: to inject [place] (PEN 00 insulin Medical NEEDLE) 32 daily; Branch gauge x ICD-10 5/32" Ndle code E11.8 loratadine 2021-09 Yes [id number] 10mg Take 1 [facility] nivers 10 mg 0-11 tablet by ity of tablet 00:00: mouth at [place] 00 bedtime. Medical Branch prasugreL 2021-09 Yes [id number] 10mg Take 1 [facility] [place] 10 mg 0-11 tablet by ity of tablet 00:00: mouth in [place] the Medical morning. Branch Appointmen t needed. Please contact office. Insulin 2021-09 Yes [id number] Use as [facility] [place], 0-11 directed ity of Disposable, 00:00: to inject [place] (PEN 00 insulin Medical NEEDLE) 32 daily; Branch gauge x ICD-10 5/32" Ndle code E11.8 Insulin 2021-09 Yes [id number] Use as [facility] [place], 0-11 directed ity of Disposable, 00:00: to inject [place] (PEN 00 insulin Medical NEEDLE) 32 daily; Branch gauge x ICD-10 5/32" Ndle code E11.8 Insulin 2021-09 Yes [id number] Use as [facility] [place], 0-11 directed ity of Disposable, 00:00: to inject [place] (PEN 00 insulin Medical NEEDLE) 32 daily; Branch gauge x ICD-10 5/32" Ndle code E11.8 Insulin 2021-09 Yes [id number] Use as [facility] [place], 0-11 directed ity of Disposable, 00:00: to inject [place] (PEN 00 insulin Medical NEEDLE) 32 daily; Branch gauge x ICD-10 5/32" Ndle code E11.8 Insulin 2021-09 Yes [id number] Use as [facility] [place], 0-11 directed ity of Disposable, 00:00: to inject [place] (PEN 00 insulin Medical NEEDLE) 32 daily; Branch gauge x ICD-10 5/32" Ndle code E11.8 Insulin 2021-09 Yes [id number] Use as [facility] [place], 0-11 directed ity of Disposable, 00:00: to inject [place] (PEN 00 insulin Medical NEEDLE) 32 daily; Branch gauge x ICD-10 5/32" Ndle code E11.8 Insulin 2021-09 Yes [id number] Use as [facility] [place], 0-11 directed ity of Disposable, 00:00: to inject [place] (PEN 00 insulin Medical NEEDLE) 32 daily; Branch gauge x ICD-10 5/32" Ndle code E11.8 Insulin 2021-09 Yes [id number] Use as [facility] [place], 0-11 directed ity of Disposable, 00:00: to inject [place] (PEN 00 insulin Medical NEEDLE) 32 daily; Branch gauge x ICD-10 5/32" Ndle code E11.8 Insulin 2021-09 Yes [id number] Use as [facility] [place], 0-11 directed ity of Disposable, 00:00: to inject [place] (PEN 00 insulin Medical NEEDLE) 32 daily; Branch gauge x ICD-10 5/32" Ndle code E11.8 Insulin 2021-09 Yes [id number] Use as [facility] [place], 0-11 directed ity of Disposable, 00:00: to inject [place] (PEN 00 insulin Medical NEEDLE) 32 daily; Branch gauge x ICD-10 5/32" Ndle code E11.8 Insulin 2021-09 Yes [id number] Use as [facility] [place], 0-11 directed ity of Disposable, 00:00: to inject [place] (PEN 00 insulin Medical NEEDLE) 32 daily; Branch gauge x ICD-10 5/32" Ndle code E11.8 Insulin 2021-09 Yes [id number] Use as [facility] [place], 0-11 directed ity of Disposable, 00:00: to inject [place] (PEN 00 insulin Medical NEEDLE) 32 daily; Branch gauge x ICD-10 5/32" Ndle code E11.8 Insulin 2021-09 Yes [id number] Use as [facility] [place], 0-11 directed ity of Disposable, 00:00: to inject [place] (PEN 00 insulin Medical NEEDLE) 32 daily; Branch gauge x ICD-10 5/32" Ndle code E11.8 Insulin 2021-09 Yes [id number] Use as [facility] [place], 0-11 directed ity of Disposable, 00:00: to inject [place] (PEN 00 insulin Medical NEEDLE) 32 daily; Branch gauge x ICD-10 5/32" Ndle code E11.8 Insulin 2021-09 Yes [id number] Use as [facility] [place], 0-11 directed ity of Disposable, 00:00: to inject [place] (PEN 00 insulin Medical NEEDLE) 32 daily; Branch gauge x ICD-10 5/32" Ndle code E11.8 Insulin 2021-09 Yes [id number] Use as [facility] [place], 0-11 directed ity of Disposable, 00:00: to inject [place] (PEN 00 insulin Medical NEEDLE) 32 daily; Branch gauge x ICD-10 5/32" Ndle code E11.8 Insulin 2021-09 Yes [id number] Use as [facility] [place], 0-11 directed ity of Disposable, 00:00: to inject [place] (PEN 00 insulin Medical NEEDLE) 32 daily; Branch gauge x ICD-10 5/32" Ndle code E11.8 Insulin 2021-09 Yes [id number] Use as [facility] [place], 0-11 directed ity of Disposable, 00:00: to inject [place] (PEN 00 insulin Medical NEEDLE) 32 daily; Branch gauge x ICD-10 5/32" Ndle code E11.8 Insulin 2021-09 Yes [id number] Use as [facility] [place], 0-11 directed ity of Disposable, 00:00: to inject [place] (PEN 00 insulin Medical NEEDLE) 32 daily; Branch gauge x ICD-10 5/32" Ndle code E11.8 Insulin 2021-09 Yes [id number] Use as [facility] [place], 0-11 directed ity of Disposable, 00:00: to inject [place] (PEN 00 insulin Medical NEEDLE) 32 daily; Branch gauge x ICD-10 5/32" Ndle code E11.8 Insulin 2021-09 Yes [id number] Use as [facility] [place], 0-11 directed ity of Disposable, 00:00: to inject [place] (PEN 00 insulin Medical NEEDLE) 32 daily; Branch gauge x ICD-10 5/32" Ndle code E11.8 Insulin 2021-09 Yes [id number] Use as [facility] [place], 0-11 directed ity of Disposable, 00:00: to inject [place] (PEN 00 insulin Medical NEEDLE) 32 daily; Branch gauge x ICD-10 5/32" Ndle code E11.8 Insulin 2021-09 Yes [id number] Use as [facility] [place], 0-11 directed ity of Disposable, 00:00: to inject [place] (PEN 00 insulin Medical NEEDLE) 32 daily; Branch gauge x ICD-10 5/32" Ndle code E11.8 loratadine 2021-09- No [id number] 10mg Take 1 [facility] 10 mg 0-11 08-22 tablet by ity of tablet 00:00: 00:00 mouth at [place] 00 :00 bedtime. Medical Branch prasugreL 2021-09- No [id number] 10mg Take 1 [facility] nivers 10 mg 0-11 08-22 tablet by ity of tablet 00:00: 00:00 mouth in [place] 00 :00 the Medical morning. Branch Appointmen t needed. Please contact office. loratadine 2021-09- No [id number] 10mg Take 1 [facility] 10 mg 0-11 08-22 tablet by ity of tablet 00:00: 00:00 mouth at [place] 00 :00 bedtime. Medical Branch prasugreL 2021-09- No [id number] 10mg Take 1 [facility] nivers 10 mg 0-11 08-22 tablet by ity of tablet 00:00: 00:00 mouth in [place] 00 :00 the Medical morning. Branch Appointmen t needed. Please contact office. spironolact 2021-09- No [id number] 25mg Take 1 [facility] one 25 mg 04-21 tablet by ity of tablet 00:00: 00:00 mouth in [place] 00 :00 the Medical morning. Branch fluticasone 2021-09- No [id number] 1{spray Use 1-2 [facility] propionate 03-22 } Sprays in ity of 50 00:00: 00:00 each [place] mcg/actuati 00 :00 nostril in [place] on nasal the Branch spray morning. KCL 10 mEq 2021-09- No [id number] 20meq Take 2 [facility] tablet 10-13 tablets by ity of 00:00: 00:00 mouth in [place] 00 :00 the Medical morning Branch and 2 tablets in the evening. Insulin 2021-09- No [id number] ADMINISTER [facility] Glargine 10-13 36 UNITS ity of ([place] 00:00: 00:[place] 00 :00 SKIN TWICE Medic al U-100 DAILY Branch INSULIN) 100 unit/mL (3 mL) injection omeprazole 2021-09- No [id number] 40mg Take 1 [facility] 40 mg 10-13 capsule by ity of capsule 00:00: 00:00 mouth in [place] 00 :00 the Medical morning. Branch ondansetron 2021-09- No [id number] TAKE 1 [facility] 4 mg tablet 10-13 TABLET BY it y of 00:00: 00:00 MOUTH [place] 00 :00 EVERY 8 Medical HOURS Branch NEEDED FOR NAUSEA OR VOMITING QUEtiapine 2021-09- No [id number] 400mg Take 1 [facility] 400 mg 10-13 tablet by ity of tablet 00:00: 00:00 mouth at [place] 00 :00 bedtime. Medical ADDITIONAL Branch REFILLS PER PSYCHIATRY rosuvastati 2021-09- No [id number] 20mg Take 1 [facility] n 20 mg 10-13 tablet by ity of tablet 00:00: 00:00 mouth at [place] 00 :00 bedtime. Medical Branch KCL 10 mEq 2021-09- No [id number] 20meq Take 2 [facility] tablet 10-13 tablets by ity of 00:00: 00:00 mouth in [place] 00 :00 the Medical morning Branch and 2 tablets in the evening. Insulin 2021-09- No [id number] ADMINISTER [facility] Glargine 10-13 36 UNITS ity of ([place] 00:00: 00:[place] 00 :00 SKIN TWICE Medic al U-100 DAILY Branch INSULIN) 100 unit/mL (3 mL) injection omeprazole 2021-09- No [id number] 40mg Take 1 [facility] 40 mg 10-13 capsule by ity of capsule 00:00: 00:00 mouth in [place] 00 :00 the Medical morning. Branch ondansetron 2021-09- No [id number] TAKE 1 [facility] 4 mg tablet 10-13 TABLET BY it y of 00:00: 00:00 MOUTH [place] 00 :00 EVERY 8 Medical HOURS Branch NEEDED FOR NAUSEA OR VOMITING QUEtiapine 2021-09- No [id number] 400mg Take 1 [facility] 400 mg 10-13 tablet by ity of tablet 00:00: 00:00 mouth at [place] 00 :00 bedtime. Medical ADDITIONAL Branch REFILLS PER PSYCHIATRY rosuvastati 2021-09- No [id number] 20mg Take 1 [facility] n 20 mg 10-13 tablet by ity of tablet 00:00: 00:00 mouth at [place] 00 :00 bedtime. Medical Branch KCL 10 mEq 2021-09- No [id number] 20meq Take 2 [facility] tablet 10-13 tablets by ity of 00:00: 00:00 mouth in [place] 00 :00 the Medical morning Branch and 2 tablets in the evening. Insulin 2021-09- No [id number] ADMINISTER [facility] Glargine 10-13 36 UNITS ity of (LANTUS 00:00: 00:00 [facility] :00 SKIN TWICE Medic al U-100 DAILY Branch INSULIN) 100 unit/mL (3 mL) injection omeprazole 2021-09- No [id number] 40mg Take 1 [facility] 40 mg 10-13 capsule by ity of capsule 00:00: 00:00 mouth in [place] 00 :00 the Medical morning. Branch ondansetron 2021-09- No [id number] TAKE 1 [facility] 4 mg tablet 10-13 TABLET BY it y of 00:00: 00:00 MOUTH [place] 00 :00 EVERY 8 Medical HOURS Branch NEEDED FOR NAUSEA OR VOMITING QUEtiapine 2021-09- No [id number] 400mg Take 1 [facility] 400 mg 10-13 tablet by ity of tablet 00:00: 00:00 mouth at [place] 00 :00 bedtime. Medical ADDITIONAL Branch REFILLS PER PSYCHIATRY rosuvastati 2021-09- No [id number] 20mg Take 1 [facility] n 20 mg 10-13 tablet by ity of tablet 00:00: 00:00 mouth at [place] 00 :00 bedtime. Medical Branch KCL 10 mEq 2021-09- No [id number] 20meq Take 2 [facility] tablet 10-13 tablets by ity of 00:00: 00:00 mouth in [place] 00 :00 the Medical morning Branch and 2 tablets in the evening. Insulin 2021-09- No [id number] ADMINISTER [facility] Glargine 10-13 36 UNITS ity of ([place] 00:00: 00:[place] 00 :00 SKIN TWICE Medic al U-100 DAILY Branch INSULIN) 100 unit/mL (3 mL) injection omeprazole 2021-09- No [id number] 40mg Take 1 [facility] 40 mg 10-13 capsule by ity of capsule 00:00: 00:00 mouth in [place] 00 :00 the Medical morning. Branch ondansetron 2021-09- No [id number] TAKE 1 [facility] 4 mg tablet 10-13 TABLET BY it y of 00:00: 00:00 MOUTH [place] 00 :00 EVERY 8 Medical HOURS Branch NEEDED FOR NAUSEA OR VOMITING QUEtiapine 2021-09- No [id number] 400mg Take 1 [facility] 400 mg 10-13 tablet by ity of tablet 00:00: 00:00 mouth at [place] 00 :00 bedtime. Medical ADDITIONAL Branch REFILLS PER PSYCHIATRY rosuvastati 2021-09- No [id number] 20mg Take 1 [facility] n 20 mg 10-13 tablet by ity of tablet 00:00: 00:00 mouth at [place] 00 :00 bedtime. Medical Branch busPIRone 2021-09- No [id number] 7.5mg Take 0.5-1 [facility] 15 mg 09-22 tablets by ity of tablet 00:00: 00:00 mouth 2 [place] 00 :00 (two) Medical times Branch daily as needed (anxiety). carBAMazepi 2021-09- No [id number] 200mg Take 2 [facility] ne 100 mg 009-22 tablets by ity of 12 hr 00:00: 00:00 mouth at [place] tablet 00 :00 bedtime. Medical Branch DULoxetine 2021-09- No [id number] 60mg Take 1 [facility] 60 mg 009-22 capsule by ity of capsule 00:00: 00:00 mouth in [place] 00 :00 the Medical morning. Branch ADDITIONAL REFILLS PER PSYCHIATRY furosemide 2021-09- No [id number] 40mg Take 1 [facility] 40 mg 09-22 tablet by ity of tablet 00:00: 00:00 mouth [place] 00 :00 every Medical morning Branch and evening. gabapentin 2021-09- No [id number] 300mg Take 1 [facility] 300 mg 09-22 capsule by ity of capsule 00:00: 00:00 mouth in [place] 00 :00 the Medical morning Branch and 1 capsule in the evening. levothyroxi 2021-09- No [id number] 175ug Take 1 [facility] ne 175 mcg 09-22 tablet by ity of tablet 00:00: 00:00 mouth [place] 00 :00 every Medical morning. Branch MUST BE SEEN FOR FURTHER REFILLS traZODone 2021-09- No [id number] TAKE 1 [facility] 100 mg 0-06 TABLET BY ity of tablet 00:00: 00:00 MOUTH [place] 00 :00 EVERY Medical NIGHT Branch semaglutide 2021-09- No [id number] INJECT [facility] (OZEMPIC) 0-28 0.5MG ity of 0.25 mg or 00:00: 00:00 UNDER THE [place] 0.5 mg(2 00 :00 SKIN EVERY Medic al mg/1.5 mL) WEEK Branch PnIj metoprolol 2021-09- No [id number] 12.5mg Take 0.5 [facility] tartrate 25 -08 tablets by i ty of mg tablet 00:00: 00:00 mouth in [place] 00 :00 the Medical morning Branch and 0.5 tablets in the evening. KCL 10 mEq 2021- Yes TAKE 2 [facility] rs tablet 0-10 TABLETS BY ity of 00:00: MOUTH [place] 00 TWICE Medical DAILY Branch KCL 10 mEq 2021- Yes TAKE 2 [facility] rs tablet 0-10 TABLETS BY ity of 00:00: MOUTH [place] 00 TWICE Medical DAILY Branch KCL 10 mEq 2021- Yes TAKE 2 [facility] rs tablet 0-10 TABLETS BY ity of 00:00: MOUTH [place] 00 TWICE Medical DAILY Branch KCL 10 mEq 2021- Yes TAKE 2 [facility] rs tablet 0-10 TABLETS BY ity of 00:00: MOUTH [place] 00 TWICE Medical DAILY Branch KCL 10 mEq 2021- Yes TAKE 2 [facility] rs tablet 0-10 TABLETS BY ity of 00:00: MOUTH [place] 00 TWICE Medical DAILY Branch KCL 10 mEq 2021-1 2021- No TAKE 2 [facility] ers tablet 0-10 10-11 TABLETS BY ity of 00:00: 00:00 MOUTH [place] 00 :00 TWICE Medical DAILY Branch KCL 10 mEq 2021-2021- No TAKE 2 [facility] ers tablet 0-10 10-11 TABLETS BY ity of 00:00: 00:00 MOUTH [place] 00 :00 TWICE Medical DAILY Branch QUEtiapine 2-0 Yes 400mg Take 1 [facility] ers 400 mg 9-14 tablet by ity of tablet 00:00: mouth at [place] [address] bedtime. Medical ADDITIONAL Branch REFILLS PER PSYCHIATRY DULoxetine 2-0 Yes 60mg Take 1 Un[facility] rs 60 mg 9-14 capsule by ity of capsule 00:00: mouth in [place] 00 the Medical morning. Branch ADDITIONAL REFILLS PER PSYCHIATRY QUEtiapine 2-0 Yes 400mg Take 1 [facility] 400 mg 9-14 tablet by [facility] tablet 00:00: mouth at [place] [address] bedtime. Medical ADDITIONAL Branch REFILLS PER PSYCHIATRY DULoxetine 2022-0 Yes 60mg Take 1 [facility] 60 mg 9-14 capsule by [facility] of capsule 00:00: mouth in [place] 00 the Medical morning. Branch ADDITIONAL REFILLS PER PSYCHIATRY QUEtiapine 2022-0 Yes 400mg Take 1 [facility] 400 mg 9-14 tablet by [facility] of tablet 00:00: mouth at [place] [address] bedtime. Medical ADDITIONAL Branch REFILLS PER PSYCHIATRY DULoxetine 2022-0 Yes 60mg Take 1 [facility] 60 mg 9-14 capsule by [facility] of capsule 00:00: mouth in [place] the Medical morning. Branch ADDITIONAL REFILLS PER PSYCHIATRY QUEtiapine 2022-0 Yes 400mg Take 1 [facility] 400 mg 9-14 tablet by [facility] of tablet 00:00: mouth at [place] [address] bedtime. Medical ADDITIONAL Branch REFILLS PER PSYCHIATRY DULoxetine 2022-0 Yes 60mg Take 1 [facility] 60 mg 9-14 capsule by [facility] of capsule 00:00: mouth in [place] 00 the Medical morning. Branch ADDITIONAL REFILLS PER PSYCHIATRY QUEtiapine 2022-0 Yes 400mg Take 1 [facility] 400 mg 9-14 tablet by [facility] of tablet 00:00: mouth at [place] 00 bedtime. Medical ADDITIONAL Branch REFILLS PER PSYCHIATRY DULoxetine 2022-0 Yes 60mg Take 1 [facility] 60 mg 9-14 capsule by [facility] of capsule 00:00: mouth in [place] 00 the Medical morning. Branch ADDITIONAL REFILLS PER PSYCHIATRY QUEtiapine 2022-0 Yes 400mg Take 1 [facility] 400 mg 9-14 tablet by [facility] of tablet 00:00: mouth at [place] [address] bedtime. Medical ADDITIONAL Branch REFILLS PER PSYCHIATRY DULoxetine 2022-0 Yes 60mg Take 1 [facility] 60 mg 9-14 capsule by [facility] of capsule 00:00: mouth in [place] the Medical morning. Branch ADDITIONAL REFILLS PER PSYCHIATRY QUEtiapine 2022-0 Yes 400mg Take 1 [facility] 400 mg 9-14 tablet by [facility] of tablet 00:00: mouth at [place] [address] bedtime. Medical ADDITIONAL Branch REFILLS PER PSYCHIATRY DULoxetine 2022-0 Yes 60mg Take 1 [facility] 60 mg 9-14 capsule by [facility] of capsule 00:00: mouth in [place] the Medical morning. Branch ADDITIONAL REFILLS PER PSYCHIATRY QUEtiapine 2022-0 Yes 400mg Take 1 [facility] 400 mg 9-14 tablet by [facility] of tablet 00:00: mouth at [place] 00 bedtime. Medical ADDITIONAL Branch REFILLS PER PSYCHIATRY DULoxetine 2022-0 Yes 60mg Take 1 [facility] 60 mg 9-14 capsule by [facility] capsule 00:00: mouth in [place] 00 the Medical morning. Branch ADDITIONAL REFILLS PER PSYCHIATRY QUEtiapine 2022-0 Yes 400mg Take 1 [facility] 400 mg 9-14 tablet by [facility] of tablet 00:00: mouth at [place] 00 bedtime. Medical ADDITIONAL Branch REFILLS PER PSYCHIATRY DULoxetine 2022-0 Yes 60mg Take 1 [facility] 60 mg 9-14 capsule by [facility] of capsule 00:00: mouth in [place] the Medical morning. Branch ADDITIONAL REFILLS PER PSYCHIATRY QUEtiapine 2022-0 Yes 400mg Take 1 [facility] 400 mg 9-14 tablet by [facility] tablet 00:00: mouth at [place] 00 bedtime. Medical ADDITIONAL Branch REFILLS PER PSYCHIATRY DULoxetine 2022-0 Yes 60mg Take 1 [facility] 60 mg 9-14 capsule by [facility] of capsule 00:00: mouth in [place] the Medical morning. Branch ADDITIONAL REFILLS PER PSYCHIATRY QUEtiapine 2022-0 Yes 400mg Take 1 [facility] 400 mg 9-14 tablet by [facility] of tablet 00:00: mouth at [place] 00 bedtime. Medical ADDITIONAL Branch REFILLS PER PSYCHIATRY DULoxetine 2022-0 Yes 60mg Take 1 [facility] 60 mg 9-14 capsule by [facility] of capsule 00:00: mouth in [place] the Medical morning. Branch ADDITIONAL REFILLS PER PSYCHIATRY QUEtiapine 2022-0 Yes 400mg Take 1 [facility] 400 mg 9-14 tablet by [facility] tablet 00:00: mouth at [place] 00 bedtime. Medical ADDITIONAL Branch REFILLS PER PSYCHIATRY DULoxetine 2022-0 Yes 60mg Take 1 [facility] 60 mg 9-14 capsule by [facility] capsule 00:00: mouth in [place] the Medical morning. Branch ADDITIONAL REFILLS PER PSYCHIATRY QUEtiapine 2022-0 Yes 400mg Take 1 [facility] 400 mg 9-14 tablet by [facility] of tablet 00:00: mouth at [place] 00 bedtime. Medical ADDITIONAL Branch REFILLS PER PSYCHIATRY DULoxetine 2022-0 Yes 60mg Take 1 [facility] 60 mg 9-14 capsule by [facility] of capsule 00:00: mouth in [place] the Medical morning. Branch ADDITIONAL REFILLS PER PSYCHIATRY QUEtiapine 2022-0 Yes 400mg Take 1 [facility] 400 mg 9-14 tablet by [facility] of tablet 00:00: mouth at [place] 00 bedtime. Medical ADDITIONAL Branch REFILLS PER PSYCHIATRY DULoxetine 2022-0 Yes 60mg Take 1 [facility] 60 mg 9-14 capsule by [facility] of capsule 00:00: mouth in [place] 00 the Medical morning. Branch ADDITIONAL REFILLS PER PSYCHIATRY QUEtiapine 2022-0 Yes 400mg Take 1 [facility] 400 mg 9-14 tablet by [facility] of tablet 00:00: mouth at [place] 00 bedtime. Medical ADDITIONAL Branch REFILLS PER PSYCHIATRY DULoxetine 2021-0 Yes 60mg Take 1 [facility] 60 mg 9-14 capsule by [facility] capsule 00:00: mouth in [place] 00 the Medical morning. Branch ADDITIONAL REFILLS PER PSYCHIATRY QUEtiapine 2-0 2022- No 400mg Take 1 [facility] 400 mg 9-14 10-11 tablet by [facility] tablet 00:00: 00:00 mouth at [place] 00 :00 bedtime. Medical ADDITIONAL Branch REFILLS PER PSYCHIATRY DULoxetine 2021-0 2022- No 60mg Take 1 [facility] 60 mg 9-14 10-11 capsule by [facility] of capsule 00:00: 00:00 mouth in [place] 00 :00 the Medical morning. Branch ADDITIONAL REFILLS PER PSYCHIATRY QUEtiapine 2021-0 2022- No 400mg Take 1 [facility] 400 mg 9-14 10-11 tablet by [facility] of tablet 00:00: 00:00 mouth at [place] 00 :00 bedtime. Medical ADDITIONAL Branch REFILLS PER PSYCHIATRY DULoxetine 2021-0 2- No 60mg Take 1 [facility] 60 mg 9-14 10-11 capsule by [facility] of capsule 00:00: 00:00 mouth in [place] 00 :00 the Medical morning. Branch ADDITIONAL REFILLS PER PSYCHIATRY QUEtiapine 2-0 2- No 400mg Take 1 [facility] vers 400 mg 9-14 10-11 tablet by [facility] of tablet 00:00: 00:00 mouth at [place] 00 :00 bedtime. Medical ADDITIONAL Branch REFILLS PER PSYCHIATRY DULoxetine 2-0 2- No 60mg Take 1 [facility] 60 mg 9-14 10-11 capsule by [facility] of capsule 00:00: 00:00 mouth in [place] 00 :00 the Medical morning. Branch ADDITIONAL REFILLS PER PSYCHIATRY levothyroxi 2021-0 Yes [id number] 175ug Take 1 [facility] ne 175 mcg 9-09 tablet by [facility] of tablet 00:00: mouth [place] 00 every Medical morning. Branch MUST BE SEEN FOR FURTHER REFILLS levothyroxi 2021-0 Yes [id number] 175ug Take 1 [facility] ne 175 mcg 9-09 tablet by [facility] of tablet 00:00: mouth [place] 00 every Medical morning. Branch MUST BE SEEN FOR FURTHER REFILLS levothyroxi 2021-0 Yes [id number] 175ug Take 1 [facility] ne 175 mcg 9-09 tablet by [facility] of tablet 00:00: mouth [place] 00 every Medical morning. Branch MUST BE SEEN FOR FURTHER REFILLS levothyroxi 2021-0 Yes [id number] 175ug Take 1 [facility] ne 175 mcg 9-09 tablet by [facility] of tablet 00:00: mouth [place] 00 every Medical morning. Branch MUST BE SEEN FOR FURTHER REFILLS levothyroxi 2021-0 Yes [id number] 175ug Take 1 [facility] ne 175 mcg 9-09 tablet by [facility] of tablet 00:00: mouth [place] 00 every Medical morning. Branch MUST BE SEEN FOR FURTHER REFILLS levothyroxi 2021-0 Yes [id number] 175ug Take 1 [facility] ne 175 mcg 9-09 tablet by [facility] of tablet 00:00: mouth [place] 00 every Medical morning. Branch MUST BE SEEN FOR FURTHER REFILLS levothyroxi 2021-0 Yes [id number] 175ug Take 1 [facility] ne 175 mcg 9-09 tablet by [facility] of tablet 00:00: mouth [place] 00 every Medical morning. Branch MUST BE SEEN FOR FURTHER REFILLS levothyroxi 2021-0 Yes [id number] 175ug Take 1 [facility] ne 175 mcg 9-09 tablet by [facility] of tablet 00:00: mouth [place] 00 every Medical morning. Branch MUST BE SEEN FOR FURTHER REFILLS levothyroxi 2021-0 Yes [id number] 175ug Take 1 [facility] ne 175 mcg 9-09 tablet by [facility] of tablet 00:00: mouth [place] 00 every Medical morning. Branch MUST BE SEEN FOR FURTHER REFILLS levothyroxi 2021-0 Yes [id number] 175ug Take 1 [facility] ne 175 mcg 9-09 tablet by [facility] of tablet 00:00: mouth [place] 00 every Medical morning. Branch MUST BE SEEN FOR FURTHER REFILLS levothyroxi 2021-0 Yes [id number] 175ug Take 1 [facility] ne 175 mcg 9-09 tablet by [facility] of tablet 00:00: mouth [place] 00 every Medical morning. Branch MUST BE SEEN FOR FURTHER REFILLS levothyroxi 2021-0 Yes [id number] 175ug Take 1 [facility] ne 175 mcg 9-09 tablet by [facility] of tablet 00:00: mouth [place] 00 every Medical morning. Branch MUST BE SEEN FOR FURTHER REFILLS levothyroxi 2021-0 Yes [id number] 175ug Take 1 [facility] ne 175 mcg 9-09 tablet by [facility] of tablet 00:00: mouth [place] 00 every Medical morning. Branch MUST BE SEEN FOR FURTHER REFILLS levothyroxi Yes [id number] 175ug Take 1 [facility] ne 175 mcg 9-09 tablet by [facility] of tablet 00:00: mouth [place] 00 every Medical morning. Branch MUST BE SEEN FOR FURTHER REFILLS levothyroxi 0 Yes [id number] 175ug Take 1 [facility] ne 175 mcg 9-09 tablet by [facility] of tablet 00:00: mouth [place] 00 every Medical morning. Branch MUST BE SEEN FOR FURTHER REFILLS levothyroxi Yes [id number] 175ug Take 1 [facility] ne 175 mcg 9-09 tablet by [facility] of tablet 00:00: mouth [place] 00 every Medical morning. Branch MUST BE SEEN FOR FURTHER REFILLS levothyroxi Yes [id number] 175ug Take 1 [facility] ne 175 mcg 9-09 tablet by [facility] of tablet 00:00: mouth [place] 00 every Medical morning. Branch MUST BE SEEN FOR FURTHER REFILLS levothyroxi 2021- No [id number] 175ug Take 1 [facility] ne 175 mcg 9-09 10-11 tablet by [facility] of tablet 00:00: 00:00 mouth [place] 00 :00 every Medical morning. Branch MUST BE SEEN FOR FURTHER REFILLS levothyroxi 2021- No [id number] 175ug Take 1 [facility] ne 175 mcg 9-09 10-11 tablet by [facility] of tablet 00:00: 00:00 mouth [place] 00 :00 every Medical morning. Branch MUST BE SEEN FOR FURTHER REFILLS levothyroxi 2021- No [id number] 175ug Take 1 [facility] ne 175 mcg 9-09 10-11 tablet by [facility] of tablet 00:00: 00:00 mouth [place] 00 :00 every Medical morning. Branch MUST BE SEEN FOR FURTHER REFILLS furosemide 2021-0 Yes 40mg Take 1 [facility] 40 mg 8-26 tablet by [facility] of tablet 00:00: mouth [place] 00 every Medical morning Branch and evening. furosemide 2021-0 Yes 40mg Take 1 [facility] 40 mg 8-26 tablet by [facility] of tablet 00:00: mouth [place] 00 every Medical morning Branch and evening. furosemide 2021-0 Yes 40mg Take 1 [facility] 40 mg 8-26 tablet by [facility] of tablet 00:00: mouth [place] 00 every Medical morning Branch and evening. furosemide 2022-0 Yes 40mg Take 1 [facility] 40 mg 8-26 tablet by [facility] of tablet 00:00: mouth [place] 00 every Medical morning Branch and evening. furosemide 2022-0 Yes 40mg Take 1 [facility] 40 mg 8-26 tablet by [facility] of tablet 00:00: mouth [place] 00 every Medical morning Branch and evening. furosemide 2022-0 Yes 40mg Take 1 [facility] 40 mg 8-26 tablet by [facility] of tablet 00:00: mouth [place] 00 every Medical morning Branch and evening. furosemide 2022-0 Yes 40mg Take 1 [facility] 40 mg 8-26 tablet by [facility] of tablet 00:00: mouth [place] 00 every Medical morning Branch and evening. furosemide 2022-0 Yes 40mg Take 1 [facility] 40 mg 8-26 tablet by [facility] of tablet 00:00: mouth [place] 00 every Medical morning Branch and evening. furosemide 2022-0 Yes 40mg Take 1 [facility] 40 mg 8-26 tablet by [facility] of tablet 00:00: mouth [place] 00 every Medical morning Branch and evening. furosemide 2022-0 Yes 40mg Take 1 [facility] 40 mg 8-26 tablet by [facility] of tablet 00:00: mouth [place] 00 every Medical morning Branch and evening. furosemide 2022-0 Yes 40mg Take 1 [facility] 40 mg 8-26 tablet by [facility] of tablet 00:00: mouth [place] 00 every Medical morning Branch and evening. furosemide 2022-0 Yes 40mg Take 1 [facility] 40 mg 8-26 tablet by [facility] of tablet 00:00: mouth [place] 00 every Medical morning Branch and evening. furosemide 2022-0 Yes 40mg Take 1 [facility] 40 mg 8-26 tablet by [facility] of tablet 00:00: mouth [place] 00 every Medical morning Branch and evening. furosemide 2022-0 Yes 40mg Take 1 [facility] 40 mg 8-26 tablet by [facility] of tablet 00:00: mouth [place] 00 every Medical morning Branch and evening. furosemide 2022-0 Yes 40mg Take 1 [facility] 40 mg 8-26 tablet by [facility] of tablet 00:00: mouth [place] 00 every Medical morning Branch and evening. furosemide 2022-0 Yes 40mg Take 1 [facility] 40 mg 8-26 tablet by [facility] of tablet 00:00: mouth [place] 00 every Medical morning Branch and evening. furosemide 2-0 Yes 40mg Take 1 [facility] 40 mg 8-26 tablet by [facility] of tablet 00:00: mouth [place] 00 every Medical morning Branch and evening. furosemide 2-0 Yes 40mg Take 1 [facility] 40 mg 8-26 tablet by [facility] of tablet 00:00: mouth [place] 00 every Medical morning Branch and evening. furosemide 2021-0 2022- No 40mg Take 1 [facility] 40 mg 8-26 10-11 tablet by [facility] of tablet 00:00: 00:00 mouth [place] 00 :00 every Medical morning Branch and evening. furosemide 2021-0 2022- No 40mg Take 1 [facility] 40 mg 8-26 10-11 tablet by [facility] of tablet 00:00: 00:00 mouth [place] 00 :00 every Medical morning Branch and evening. furosemide 2021-0 2022- No 40mg Take 1 [facility] 40 mg 8-26 10-11 tablet by [facility] of tablet 00:00: 00:00 mouth [place] 00 :00 every Medical morning Branch and evening. LANTUS 2021-0 Yes [id number] ADMINISTER [facility] SOLOSTAR 8-23 20 UNITS ity of U-100 00:00: UNDER THE [place] INSULIN 100 00 SKIN TWICE Me dical unit/mL (3 DAILY Branch mL) injection LANTUS 2021-0 Yes [id number] ADMINISTER [facility] SOLOSTAR 8-23 20 UNITS ity of U-100 00:00: UNDER THE [place] INSULIN 100 00 SKIN TWICE Me dical unit/mL (3 DAILY Branch mL) injection LANTUS 2021-0 Yes [id number] ADMINISTER [facility] SOLOSTAR 8-23 20 UNITS ity of U-100 00:00: UNDER THE [place] INSULIN 100 00 SKIN TWICE Me dical unit/mL (3 DAILY Branch mL) injection LANTUS 2021-0 Yes [id number] ADMINISTER [facility] SOLOSTAR 8-23 20 UNITS ity of U-100 00:00: UNDER THE [place] INSULIN 100 00 SKIN TWICE Me dical unit/mL (3 DAILY Branch mL) injection LANTUS 2021-0 Yes [id number] ADMINISTER [facility] SOLOSTAR 8-23 20 UNITS ity of U-100 00:00: UNDER THE [place] INSULIN 100 00 SKIN TWICE Me dical unit/mL (3 DAILY Branch mL) injection LANTUS 2021-0 Yes [id number] ADMINISTER [facility] SOLOSTAR 8-23 20 UNITS ity of U-100 00:00: UNDER THE [place] INSULIN 100 00 SKIN TWICE Me dical unit/mL (3 DAILY Branch mL) injection LANTUS 2021-0 Yes [id number] ADMINISTER [facility] SOLOSTAR 8-23 20 UNITS ity of U-100 00:00: UNDER THE [place] INSULIN 100 00 SKIN TWICE Me dical unit/mL (3 DAILY Branch mL) injection LANTUS 0 Yes [id number] ADMINISTER [facility] SOLOSTAR 8-23 20 UNITS ity of U-100 00:00: UNDER THE [place] INSULIN 100 00 SKIN TWICE Me dical unit/mL (3 DAILY Branch mL) injection LANTUS 0 Yes [id number] ADMINISTER [facility] SOLOSTAR 8-23 20 UNITS ity of U-100 00:00: UNDER THE [place] INSULIN 100 00 SKIN TWICE Me dical unit/mL (3 DAILY Branch mL) injection LANTUS 2021-0 Yes [id number] ADMINISTER [facility] SOLOSTAR 8-23 20 UNITS ity of U-100 00:00: UNDER THE [place] INSULIN 100 00 SKIN TWICE Me dical unit/mL (3 DAILY Branch mL) injection LANTUS 2021-0 Yes [id number] ADMINISTER [facility] SOLOSTAR 8-23 20 UNITS ity of U-100 00:00: UNDER THE [place] INSULIN 100 00 SKIN TWICE Me dical unit/mL (3 DAILY Branch mL) injection LANTUS 2021-0 Yes [id number] ADMINISTER [facility] SOLOSTAR 8-23 20 UNITS ity of U-100 00:00: UNDER THE [place] INSULIN 100 00 SKIN TWICE Me dical unit/mL (3 DAILY Branch mL) injection LANTUS 2021-0 Yes [id number] ADMINISTER [facility] n[facility] SOLOSTAR 8-23 20 UNITS ity of U-100 00:00: UNDER THE [place] INSULIN 100 00 SKIN TWICE Me dical unit/mL (3 DAILY Branch mL) injection LANTUS 2021-0 Yes [id number] ADMINISTER [facility] SOLOSTAR 8-23 20 UNITS ity of U-100 00:00: UNDER THE [place] INSULIN 100 00 SKIN TWICE Me dical unit/mL (3 DAILY Branch mL) injection LANTUS 2021-0 Yes [id number] ADMINISTER [facility] SOLOSTAR 8-23 20 UNITS ity of U-100 00:00: UNDER THE [place] INSULIN 100 00 SKIN TWICE Me dical unit/mL (3 DAILY Branch mL) injection LANTUS Yes [id number] ADMINISTER [facility] nivers SOLOSTAR 8-23 20 UNITS ity of U-100 00:00: UNDER THE [place] INSULIN 100 00 SKIN TWICE Me dical unit/mL (3 DAILY Branch mL) injection LANTUS Yes [id number] ADMINISTER U nivers SOLOSTAR 8-23 20 UNITS ity of U-100 00:00: UNDER THE [place] INSULIN 100 00 SKIN TWICE Me dical unit/mL (3 DAILY Branch mL) injection LANTUS Yes [id number] ADMINISTER [facility] n[facility] SOLOSTAR 8-23 20 UNITS ity of U-100 00:00: UNDER THE [place] INSULIN 100 00 SKIN TWICE Me dical unit/mL (3 DAILY Branch mL) injection LANTUS 2021- No [id number] ADMINISTER [facility] SOLOSTAR 8-23 10-11 20 UNITS ity of U-100 00:00: 00:00 UNDER THE [place] INSULIN 100 00 :00 SKIN TWICE Me dical unit/mL (3 DAILY Branch mL) injection LANTUS 2021- No [id number] ADMINISTER [facility] SOLOSTAR 8-23 10-11 20 UNITS ity of U-100 00:00: 00:00 UNDER THE [place] INSULIN 100 00 :00 SKIN TWICE Me dical unit/mL (3 DAILY Branch mL) injection LANTUS 2021- No [id number] ADMINISTER [facility] SOLOSTAR 8-23 10-11 20 UNITS ity of U-100 00:00: 00:00 UNDER THE [place] INSULIN 100 00 :00 SKIN TWICE Me dical unit/mL (3 DAILY Branch mL) injection KCL 10 mEq Yes TAKE 2 [facility] rs tablet 8-12 TABLETS BY ity of 00:00: MOUTH TWICE Medical DAILY. Branch rosuvastati Yes TAKE 1 [facility] ers n 20 mg 8-12 TABLET BY ity of tablet 00:00: MOUTH AT [place] 00 BEDTIME Medical Branch KCL 10 mEq Yes TAKE 2 [facility] rs tablet 8-12 TABLETS BY ity of 00:00: MOUTH TWICE Medical DAILY. Branch rosuvastati Yes TAKE 1 [facility] n 20 mg 8-12 TABLET BY ity of tablet 00:00: MOUTH AT [place] BEDTIME Medical Branch KCL 10 mEq 2021-0 Yes TAKE 2 [facility] rs tablet 8-12 TABLETS BY ity of 00:00: MOUTH TWICE Medical DAILY. Branch rosuvastati Yes TAKE 1 [facility] n 20 mg 8-12 TABLET BY ity of tablet 00:00: MOUTH AT [place] BEDTIME Medical Branch KCL 10 mEq 2021-0 Yes TAKE 2 [facility] rs tablet 8-12 TABLETS BY ity of 00:00: MOUTH TWICE Medical DAILY. Branch rosuvastati Yes TAKE 1 [facility] n 20 mg 8-12 TABLET BY ity of tablet 00:00: MOUTH AT [place] [facility] Medical Branch KCL 10 mEq 2021-0 Yes TAKE 2 [facility] rs tablet 8-12 TABLETS BY ity of 00:00: MOUTH [place] TWICE Medical DAILY. Branch rosuvastati Yes TAKE 1 [facility] ers n 20 mg 8-12 TABLET BY ity of tablet 00:00: MOUTH AT [place] [facility] Medical Branch KCL 10 mEq 2021-0 Yes TAKE 2 [facility]ive rs tablet 8-12 TABLETS BY ity of 00:00: MOUTH [place] TWICE Medical DAILY. Branch rosuvastati Yes TAKE 1 [facility] ers n 20 mg 8-12 TABLET BY ity of tablet 00:00: MOUTH AT [place] [facility] Medical Branch KCL 10 mEq 2021-0 Yes TAKE 2 [facility]ive rs tablet 8-12 TABLETS BY ity of 00:00: MOUTH [place] TWICE Medical DAILY. Branch rosuvastati Yes TAKE 1 [facility] ers n 20 mg 8-12 TABLET BY ity of tablet 00:00: MOUTH AT [place] BEDTIME Medical Branch KCL 10 mEq 2021-0 Yes TAKE 2 [facility] rs tablet 8-12 TABLETS BY ity of 00:00: MOUTH [place] TWICE Medical DAILY. Branch rosuvastati Yes TAKE 1 [facility] n 20 mg 8-12 TABLET BY ity of tablet 00:00: MOUTH AT [place] BEDTIME Medical Branch KCL 10 mEq 2021-0 Yes TAKE 2 [facility] rs tablet 8-12 TABLETS BY ity of 00:00: MOUTH [place] TWICE Medical DAILY. Branch rosuvastati Yes TAKE 1 [facility] n 20 mg 8-12 TABLET BY ity of tablet 00:00: [facility] [place] [facility] KCL [facility] mEq 0 Yes TAKE 2 [facility] rs tablet 8-12 TABLETS BY ity of 00:00: MOUTH TWICE Medical DAILY. Branch rosuvastati Yes TAKE 1 [facility] ers n 20 mg 8-12 TABLET BY ity of tablet 00:00: MOUTH AT [place] [facility] Medical Branch KCL 10 mEq 0 Yes TAKE 2 [facility] rs tablet 8-12 TABLETS BY ity of 00:00: MOUTH [place] TWICE Medical DAILY. Branch rosuvastati Yes TAKE 1 [facility] ers n 20 mg 8-12 TABLET BY ity of tablet 00:00: MOUTH AT [place] [facility] Medical Branch KCL 10 mEq 0 Yes TAKE 2 [facility] rs tablet 8-12 TABLETS BY ity of 00:00: MOUTH [place] TWICE Medical DAILY. Branch rosuvastati Yes TAKE 1 [facility] ers n 20 mg 8-12 TABLET BY ity of tablet 00:00: MOUTH AT [place] [facility] Medical Branch KCL 10 mEq 0 Yes TAKE 2 [facility] rs tablet 8-12 TABLETS BY ity of 00:00: MOUTH [place] TWICE Medical DAILY. Branch rosuvastati Yes TAKE 1 [facility] ers n 20 mg 8-12 TABLET BY ity of tablet 00:00: MOUTH AT [place] [facility] Medical Branch rosuvastati Yes TAKE 1 [facility] ers n 20 mg 8-12 TABLET BY ity of tablet 00:00: MOUTH AT [place] [facility] Medical Branch rosuvastati 2021-0 Yes TAKE 1 [facility] ers n 20 mg 8-12 TABLET BY ity of tablet 00:00: MOUTH AT [place] [facility] Medical Branch rosuvastati 0 Yes TAKE 1 [facility] ers n 20 mg 8-12 TABLET BY ity of tablet 00:00: MOUTH AT [place] [facility] Medical Branch rosuvastati 0 Yes TAKE 1 [facility] ers n 20 mg 8-12 TABLET BY ity of tablet 00:00: MOUTH AT [place] [facility] Medical Branch rosuvastati 0 Yes TAKE 1 [facility] ers n 20 mg 8-12 TABLET BY ity of tablet 00:00: MOUTH AT [place] BEDTIME Medical Branch rosuvastati 2021-0 2021- No TAKE 1 Uni vers n 20 mg 8-12 10-11 TABLET BY ity of tablet 00:00: 00:00 MOUTH AT [place] 00 :00 BEDTIME Medical Branch rosuvastati 2021-0 2021- No TAKE 1 Uni vers n 20 mg 8-12 10-11 TABLET BY ity of tablet 00:00: 00:00 MOUTH AT [place] 00 :00 BEDTIME Medical Branch rosuvastati 2021-0 2021- No TAKE 1 [facility] vers n 20 mg 8-12 10-11 TABLET BY ity of tablet 00:00: 00:00 MOUTH AT [place] 00 :00 BEDTIME Medical Branch KCL 10 mEq 2021- No TAKE 2 [facility] ers tablet 8-12 10-10 TABLETS BY ity of 00:00: 00:00 MOUTH [place] 00 :00 TWICE Medical DAILY. Branch KCL 10 mEq 2021- No TAKE 2 [facility] ers tablet 8-12 10-10 TABLETS BY ity of 00:00: 00:00 MOUTH [place] 00 :00 TWICE Medical DAILY. Branch QUEtiapine 0 Yes [id number] 400mg TAKE 1 [facility] 400 mg 8-10 TABLET BY ity of tablet 00:00: [facility] AT [place] 00 BEDTIME Medical Branch QUEtiapine 2021-0 2021- No [id number] 400mg TAKE 1 [facility] 400 mg 8-10 09-14 TABLET BY ity of tablet 00:00: 00:00 MOUTH AT [place] 00 :00 BEDTIME Medical Branch ondansetron 2021-0 Yes [id number] TAKE 1 [facility] 4 mg tablet 7-19 TABLET BY ity of 00:00: [place] [address] EVERY 8 Medical HOURS Branch NEEDED FOR NAUSEA OR VOMITING ondansetron 2021-0 Yes [id number] TAKE 1 [facility] 4 mg tablet 7-19 TABLET BY ity of 00:00: [place] [address] EVERY 8 Medical HOURS Branch NEEDED FOR NAUSEA OR VOMITING ondansetron 2021-0 Yes [id number] TAKE 1 [facility] 4 mg tablet 7-19 TABLET BY ity of 00:00: [place] [address] EVERY 8 Medical HOURS Branch NEEDED FOR NAUSEA OR VOMITING ondansetron 2021-0 Yes [id number] TAKE 1 [facility] 4 mg tablet 7-19 TABLET BY ity of 00:00: [place] [address] EVERY 8 Medical HOURS Branch NEEDED FOR NAUSEA OR VOMITING ondansetron 2022-0 Yes [id number] TAKE 1 [facility] 4 mg tablet 7-19 TABLET BY ity of 00:00: MOUTH [place] 00 EVERY 8 Medical HOURS Branch NEEDED FOR NAUSEA OR VOMITING ondansetron 2022-0 Yes [id number] TAKE 1 [facility] 4 mg tablet 7-19 TABLET BY ity of 00:00: MOUTH [place] 00 EVERY 8 Medical HOURS Branch NEEDED FOR NAUSEA OR VOMITING ondansetron 2022-0 Yes [id number] TAKE 1 [facility] 4 mg tablet 7-19 TABLET BY ity of 00:00: MOUTH [place] 00 EVERY 8 Medical HOURS Branch NEEDED FOR NAUSEA OR VOMITING ondansetron 2022-0 Yes [id number] TAKE 1 [facility] 4 mg tablet 7-19 TABLET BY ity of 00:00: MOUTH [place] 00 EVERY 8 Medical HOURS Branch NEEDED FOR NAUSEA OR VOMITING ondansetron 2022-0 Yes [id number] TAKE 1 [facility] 4 mg tablet 7-19 TABLET BY ity of 00:00: MOUTH [place] 00 EVERY 8 Medical HOURS Branch NEEDED FOR NAUSEA OR VOMITING ondansetron 2022-0 Yes [id number] TAKE 1 [facility] 4 mg tablet 7-19 TABLET BY ity of 00:00: MOUTH [place] 00 EVERY 8 Medical HOURS Branch NEEDED FOR NAUSEA OR VOMITING ondansetron 2022-0 Yes [id number] TAKE 1 [facility] 4 mg tablet 7-19 TABLET BY ity of 00:00: MOUTH [place] 00 EVERY 8 Medical HOURS Branch NEEDED FOR NAUSEA OR VOMITING ondansetron 2022-0 Yes [id number] TAKE 1 [facility] 4 mg tablet 7-19 TABLET BY ity of 00:00: MOUTH [place] 00 EVERY 8 Medical HOURS Branch NEEDED FOR NAUSEA OR VOMITING ondansetron 2022-0 Yes [id number] TAKE 1 [facility] 4 mg tablet 7-19 TABLET BY ity of 00:00: MOUTH [place] 00 EVERY 8 Medical HOURS Branch NEEDED FOR NAUSEA OR VOMITING ondansetron 2022-0 Yes [id number] TAKE 1 [facility] 4 mg tablet 7-19 TABLET BY ity of 00:00: MOUTH [place] 00 EVERY 8 Medical HOURS Branch NEEDED FOR NAUSEA OR VOMITING ondansetron 2022-0 Yes [id number] TAKE 1 [facility] 4 mg tablet 7-19 TABLET BY ity of 00:00: MOUTH [place] 00 EVERY 8 Medical HOURS Branch NEEDED FOR NAUSEA OR VOMITING ondansetron 2022-0 Yes [id number] TAKE 1 [facility] 4 mg tablet 7-19 TABLET BY ity of 00:00: MOUTH [place] 00 EVERY 8 Medical HOURS Branch NEEDED FOR NAUSEA OR VOMITING ondansetron 2021-0 Yes [id number] TAKE 1 [facility] 4 mg tablet 7-19 TABLET BY ity of 00:00: MOUTH [place] 00 EVERY 8 Medical HOURS Branch NEEDED FOR NAUSEA OR VOMITING ondansetron 2021-0 Yes [id number] TAKE 1 Univers 4 mg tablet 7-19 TABLET BY [facility] 00:00: MOUTH [place] 00 EVERY 8 Medical HOURS Branch NEEDED FOR NAUSEA OR VOMITING ondansetron 2021-0 2022- No [id number] TAKE 1 [facility] 4 mg tablet 7-19 10-11 TABLET BY it y of 00:00: 00:00 MOUTH [place] 00 :00 EVERY 8 Medical HOURS Branch NEEDED FOR NAUSEA OR VOMITING ondansetron 2021-0 2- No [id number] TAKE 1 [facility] 4 mg tablet 7-19 10-11 TABLET BY it y of 00:00: 00:00 MOUTH [place] 00 :00 EVERY 8 Medical HOURS Branch NEEDED FOR NAUSEA OR VOMITING ondansetron 2021-0 2- No [id number] TAKE 1 [facility] 4 mg tablet 7-19 10-11 TABLET BY it y of 00:00: 00:00 MOUTH [place] 00 :00 EVERY 8 Medical HOURS Branch NEEDED FOR NAUSEA OR VOMITING metoprolol 2021-0 Yes [id number] 12.5mg Take 0.5 [facility] tartrate 25 5-31 tablets by it y of mg tablet 00:00: mouth 2 [place] 00 (two) Medical times Branch daily. spironolact 2021-0 Yes [id number] 25mg Take 1 [facility] one 25 mg 5-31 tablet by it[facility] o f tablet 00:00: mouth [place] 00 daily. Medical Branch prasugreL 2021-0 Yes [id number] 10mg Take 1 [facility] 10 mg 5-31 tablet by [facility] of tablet 00:00: mouth [place] 00 daily. [facility] Appoint[facility] t needed. Please contact office. traZODone 0 Yes TAKE 1 [facility] 100 mg 5-31 TABLET BY [facility] of tablet 00:00: MOUTH [place] 00 EVERY Medical NIGHT Branch metoprolol 2021-0 Yes [id number] 12.5mg Take 0.5 [facility] tartrate 25 5-31 tablets by it y of mg tablet 00:00: mouth 2 (two) Medical times Branch daily. spironolact 2-0 Yes [id number] 25mg Take 1 [facility] one 25 mg 5-31 tablet by it[facility] o f tablet 00:00: mouth [place] 00 daily. Medical Branch prasugreL 2021-0 Yes [id number] 10mg Take 1 [facility] 10 mg 5-31 tablet by [facility] of tablet 00:00: mouth [place] 00 daily. [facility] Appoint[facility] t needed. Please contact office. traZODone 2021-0 Yes TAKE 1 [facility] 100 mg 5-31 TABLET BY [facility] tablet 00:00: MOUTH [place] 00 EVERY Medical NIGHT Branch metoprolol 2021-0 Yes [id number] 12.5mg Take 0.5 [facility] tartrate 25 5-31 tablets by it y of mg tablet 00:00: mouth 2 (two) Medical times Branch daily. spironolact 2021-0 Yes [id number] 25mg Take 1 [facility] one 25 mg 5-31 tablet by ity o f tablet 00:00: mouth [place] 00 daily. Medical Branch prasugreL 2021-0 Yes [id number] 10mg Take 1 [facility] 10 mg 5-31 tablet by [facility] of tablet 00:00: mouth [place] 00 daily. [facility] Appoint[facility] t needed. Please contact office. traZODone 2021-0 Yes TAKE 1 [facility] 100 mg 5-31 TABLET BY [facility] of tablet 00:00: MOUTH [place] 00 EVERY Medical NIGHT Branch metoprolol 2021-0 Yes [id number] 12.5mg Take 0.5 [facility] tartrate 25 5-31 tablets by it y of mg tablet 00:00: mouth 2 (two) Medical times Branch daily. spironolact 2-0 Yes [id number] 25mg Take 1 [facility] one 25 mg 5-31 tablet by it[facility] o f tablet 00:00: mouth [place] 00 daily. Medical Branch prasugreL 2-0 Yes [id number] 10mg Take 1 [facility] 10 mg 5-31 tablet by [facility] of tablet 00:00: mouth [place] 00 daily. [facility] Appoint[facility] t needed. Please contact office. traZODone 2021-0 Yes TAKE 1 [facility] 100 mg 5-31 TABLET BY [facility] of tablet 00:00: MOUTH [place] 00 EVERY Medical NIGHT Branch metoprolol 2022-0 Yes [id number] 12.5mg Take 0.5 [facility] tartrate 25 5-31 tablets by it y of mg tablet 00:00: mouth 2 (two) Medical times Branch daily. spironolact 2-0 Yes [id number] 25mg Take 1 [facility] one 25 mg 5-31 tablet by ity o f tablet 00:00: mouth [place] 00 daily. Medical Branch prasugreL 2021-0 Yes [id number] 10mg Take 1 [facility] 10 mg 5-31 tablet by [facility] of tablet 00:00: mouth [place] 00 daily. [facility] Appoint[facility] t needed. Please contact office. traZODone 2021-0 Yes TAKE 1 [facility] 100 mg 5-31 TABLET BY [facility] of tablet 00:00: MOUTH [place] 00 EVERY Medical NIGHT Branch metoprolol 2021-0 Yes [id number] 12.5mg Take 0.5 [facility] tartrate 25 5-31 tablets by it y of mg tablet 00:00: mouth 2 (two) Medical times Branch daily. spironolact 2021-0 Yes [id number] 25mg Take 1 [facility] one 25 mg 5-31 tablet by it[facility] o f tablet 00:00: mouth [place] 00 daily. Medical Branch prasugreL 2021-0 Yes [id number] 10mg Take 1 [facility] 10 mg 5-31 tablet by [facility] of tablet 00:00: mouth [place] 00 daily. [facility] Appoint[facility] t needed. Please contact office. traZODone 2021-0 Yes TAKE 1 [facility] 100 mg 5-31 TABLET BY [facility] of tablet 00:00: MOUTH [place] 00 EVERY Medical NIGHT Branch metoprolol 2-0 Yes [id number] 12.5mg Take 0.5 [facility] tartrate 25 5-31 tablets by it y of mg tablet 00:00: mouth 2 00 (two) Medical times Branch daily. spironolact 2-0 Yes [id number] 25mg Take 1 [facility] one 25 mg 5-31 tablet by ity o f tablet 00:00: mouth [place] 00 daily. Medical Branch prasugreL 2-0 Yes [id number] 10mg Take 1 [facility] 10 mg 5-31 tablet by [facility] of tablet 00:00: mouth [place] 00 daily. [facility] Appoint[facility] t needed. Please contact office. traZODone 2021-0 Yes TAKE 1 [facility] 100 mg 5-31 TABLET BY [facility] of tablet 00:00: MOUTH [place] 00 EVERY Medical NIGHT Branch metoprolol 2-0 Yes [id number] 12.5mg Take 0.5 [facility] tartrate 25 5-31 tablets by it y of mg tablet 00:00: mouth 2 (two) Medical times Branch daily. spironolact 2-0 Yes [id number] 25mg Take 1 [facility] one 25 mg 5-31 tablet by ity o f tablet 00:00: mouth [place] 00 daily. Medical Branch prasugreL 2021-0 Yes [id number] 10mg Take 1 [facility] 10 mg 5-31 tablet by [facility] of tablet 00:00: mouth [place] 00 daily. [facility] Appoint[facility] t needed. Please contact office. traZODone 2021-0 Yes TAKE 1 [facility] 100 mg 5-31 TABLET BY [facility] tablet 00:00: MOUTH 00 EVERY Medical NIGHT Branch metoprolol 2021-0 Yes [id number] 12.5mg Take 0.5 [facility] tartrate 25 5-31 tablets by it y of mg tablet 00:00: mouth (two) Medical times Branch daily. spironolact 2021-0 Yes [id number] 25mg Take 1 [facility] one 25 mg 5-31 tablet by ity o f tablet 00:00: mouth [place] 00 daily. Medical Branch prasugreL 2021-0 Yes [id number] 10mg Take 1 [facility] 10 mg 5-31 tablet by [facility] of tablet 00:00: mouth [place] 00 daily. [facility] Appoint[facility] t needed. Please contact office. traZODone 2-0 Yes TAKE 1 [facility] 100 mg 5-31 TABLET BY [facility] of tablet 00:00: MOUTH [place] 00 EVERY Medical NIGHT Branch metoprolol 2-0 Yes [id number] 12.5mg Take 0.5 [facility] tartrate 25 5-31 tablets by it y of mg tablet 00:00: mouth 2 (two) Medical times Branch daily. spironolact 2022-0 Yes [id number] 25mg Take 1 [facility] one 25 mg 5-31 tablet by ity o f tablet 00:00: mouth [place] 00 daily. Medical Branch prasugreL 2-0 Yes [id number] 10mg Take 1 [facility] 10 mg 5-31 tablet by [facility] of tablet 00:00: mouth [place] 00 daily. [facility] Appoint[facility] Branch t needed. Please contact office. traZODone 2-0 Yes TAKE 1 [facility] 100 mg 5-31 TABLET BY [facility] of tablet 00:00: MOUTH [place] 00 EVERY Medical NIGHT Branch metoprolol 2-0 Yes [id number] 12.5mg Take 0.5 [facility] tartrate 25 5-31 tablets by it y of mg tablet 00:00: mouth 2 (two) Medical times Branch daily. spironolact 2-0 Yes [id number] 25mg Take 1 [facility] one 25 mg 5-31 tablet by ity o f tablet 00:00: mouth [place] 00 daily. Medical Branch prasugreL 2021-0 Yes [id number] 10mg Take 1 [facility] 10 mg 5-31 tablet by [facility] of tablet 00:00: mouth 00 daily. [facility] Appointmen Branch t needed. Please contact office. traZODone 2021-0 Yes TAKE 1 [facility] 100 mg 5-31 TABLET BY [facility] of tablet 00:00: MOUTH 00 EVERY Medical NIGHT Branch metoprolol 2-0 Yes [id number] 12.5mg Take 0.5 [facility] tartrate 25 5-31 tablets by it y of mg tablet 00:00: mouth (two) Medical times Branch daily. spironolact 2-0 Yes [id number] 25mg Take 1 [facility] one 25 mg 5-31 tablet by ity o f tablet 00:00: mouth [place] 00 daily. Medical Branch prasugreL 2-0 Yes [id number] 10mg Take 1 [facility] 10 mg 5-31 tablet by [facility] of tablet 00:00: mouth [place] 00 daily. [facility] Appoint[facility] Branch t needed. Please contact office. traZODone 2-0 Yes TAKE 1 [facility] 100 mg 5-31 TABLET BY [facility] of tablet 00:00: MOUTH [place] 00 EVERY Medical NIGHT Branch metoprolol 2-0 Yes [id number] 12.5mg Take 0.5 [facility] tartrate 25 5-31 tablets by it y of mg tablet 00:00: mouth 2 (two) Medical times Branch daily. spironolact 2022-0 Yes [id number] 25mg Take 1 [facility] one 25 mg 5-31 tablet by ity o f tablet 00:00: mouth [place] 00 daily. Medical Branch prasugreL 2-0 Yes [id number] 10mg Take 1 [facility] 10 mg 5-31 tablet by [facility] of tablet 00:00: mouth [place] 00 daily. [facility] Appoint[facility] Branch t needed. Please contact office. traZODone 2021-0 Yes TAKE 1 [facility] 100 mg 5-31 TABLET BY [facility] of tablet 00:00: MOUTH [place] 00 EVERY Medical NIGHT Branch metoprolol 2021-0 Yes [id number] 12.5mg Take 0.5 [facility] tartrate 25 5-31 tablets by it y of mg tablet 00:00: mouth 2 (two) Medical times Branch daily. spironolact 2021-0 Yes [id number] 25mg Take 1 [facility] one 25 mg 5-31 tablet by ity o f tablet 00:00: mouth [place] 00 daily. Medical Branch prasugreL 2021-0 Yes [id number] 10mg Take 1 [facility] 10 mg 5-31 tablet by [facility] of tablet 00:00: mouth [place] 00 daily. [facility] Appoint[facility] Branch t needed. Please contact office. traZODone 2021-0 Yes TAKE 1 [facility] 100 mg 5-31 TABLET BY [facility] of tablet 00:00: MOUTH [place] 00 EVERY Medical NIGHT Branch metoprolol 2021-0 Yes [id number] 12.5mg Take 0.5 [facility] tartrate 25 5-31 tablets by it y of mg tablet 00:00: mouth (two) Medical times Branch daily. spironolact 2021-0 Yes [id number] 25mg Take 1 [facility] one 25 mg 5-31 tablet by ity o f tablet 00:00: mouth [place] 00 daily. Medical Branch prasugreL 2021-0 Yes [id number] 10mg Take 1 [facility] 10 mg 5-31 tablet by [facility] of tablet 00:00: mouth [place] 00 daily. [facility] Appointmen Branch t needed. Please contact office. traZODone 2-0 Yes TAKE 1 [facility] 100 mg 5-31 TABLET BY [facility] of tablet 00:00: MOUTH [place] 00 EVERY Medical NIGHT Branch metoprolol 2-0 Yes [id number] 12.5mg Take 0.5 [facility] tartrate 25 5-31 tablets by it y of mg tablet 00:00: mouth 2 (two) Medical times Branch daily. spironolact 2-0 Yes [id number] 25mg Take 1 [facility] one 25 mg 5-31 tablet by ity o f tablet 00:00: mouth [place] 00 daily. Medical Branch prasugreL 2021-0 Yes [id number] 10mg Take 1 [facility] 10 mg 5-31 tablet by [facility] of tablet 00:00: mouth [place] 00 daily. [facility] Appoint[facility] Branch t needed. Please contact office. traZODone 2021-0 Yes TAKE 1 [facility] 100 mg 5-31 TABLET BY [facility] of tablet 00:00: MOUTH [place] 00 EVERY Medical NIGHT Branch metoprolol 2021-0 Yes [id number] 12.5mg Take 0.5 [facility] tartrate 25 5-31 tablets by it y of mg tablet 00:00: mouth 2 00 (two) Medical times Branch daily. spironolact 2021-0 Yes [id number] 25mg Take 1 [facility] one 25 mg 5-31 tablet by ity o f tablet 00:00: mouth [place] 00 daily. Medical Branch prasugreL 2021-0 Yes [id number] 10mg Take 1 [facility] 10 mg 5-31 tablet by [facility] of tablet 00:00: mouth [place] 00 daily. [facility] Appointmen Branch t needed. Please contact office. traZODone 2021-0 Yes TAKE 1 [facility] 100 mg 5-31 TABLET BY [facility] of tablet 00:00: MOUTH [place] 00 EVERY Medical NIGHT Branch metoprolol 2021-0 Yes [id number] 12.5mg Take 0.5 [facility] tartrate 25 5-31 tablets by it y of mg tablet 00:00: mouth 2 (two) Medical times Branch daily. spironolact 2021-0 Yes [id number] 25mg Take 1 [facility] one 25 mg 5-31 tablet by ity o f tablet 00:00: mouth [place] 00 daily. Medical Branch prasugreL 2021-0 Yes [id number] 10mg Take 1 [facility] 10 mg 5-31 tablet by [facility] of tablet 00:00: mouth [place] 00 daily. [facility] Appointmen Branch t needed. Please contact office. traZODone 2021-0 Yes TAKE 1 [facility] 100 mg 5-31 TABLET BY [facility] of tablet 00:00: MOUTH [place] 00 EVERY Medical NIGHT Branch metoprolol 2-0 2- No [id number] 12.5mg Take 0.5 [facility] tartrate 25 5-31 10-11 tablets by i ty of mg tablet 00:00: 00:00 mouth 2 [place] :[place] (two) Medical times Branch daily. spironolact 2021-2021- No [id number] 25mg Take 1 [facility] one 25 mg 5-31 10-11 tablet by ity of tablet 00:00: 00:00 mouth [place] 00 :00 daily. Medical Branch prasugreL 2021-2021- No [id number] 10mg Take 1 [facility] nivers 10 mg 5-31 10-11 tablet by ity of tablet 00:00: 00:00 mouth [place] 00 :00 daily. Medical Appointmen Branch t needed. Please contact office. traZODone 2021-2021- No TAKE 1 [facility] 100 mg 5-31 10-11 TABLET BY ity of tablet 00:00: 00:00 MOUTH [place] 00 :00 EVERY Medical NIGHT Branch metoprolol 2021-2021- No [id number] 12.5mg Take 0.5 [facility] tartrate 25 5-31 10-11 tablets by i ty of mg tablet 00:00: 00:00 mouth 2 [place] :[place] (two) Medical times Branch daily. spironolact 2021- No [id number] 25mg Take 1 [facility] one 25 mg 5-31 10-11 tablet by ity of tablet 00:00: 00:00 mouth [place] 00 :00 daily. Medical Branch prasugreL 2021-2021- No [id number] 10mg Take 1 U nivers 10 mg 5-31 10-11 tablet by ity of tablet 00:00: 00:00 mouth [place] 00 :00 daily. Medical Appointmen Branch t needed. Please contact office. traZODone 2021- No TAKE 1 [facility] 100 mg 5-31 10-11 TABLET BY ity of tablet 00:00: 00:00 MOUTH [place] 00 :00 EVERY Medical NIGHT Branch metoprolol 2021-2021- No [id number] 12.5mg Take 0.5 [facility] tartrate 25 5-31 10-11 tablets by i ty of mg tablet 00:00: 00:00 mouth 2 [place] 00 :00 (two) Medical times Branch daily. spironolact 2021-0 2021- No [id number] 25mg Take 1 [facility] one 25 mg 5-31 10-11 tablet by ity of tablet 00:00: 00:00 mouth [place] 00 :00 daily. Medical Branch prasugreL 2021-0 2- No [id number] 10mg Take 1 U nivers 10 mg 5-31 10-11 tablet by ity of tablet 00:00: 00:00 mouth [place] 00 :[facility] Please contact office. traZODone 2021-0 2021- No TAKE 1 [facility] 100 mg 5-31 10-11 TABLET BY ity of tablet 00:00: 00:00 MOUTH [place] 00 :00 EVERY Medical NIGHT Branch ibuprofen 2-0 Yes [facility] 800 mg 5-30 ity of tablet 00:00: [place] [address] Medical Branch ibuprofen 2022-0 Yes [facility] 800 mg 5-30 ity of tablet 00:00: [place] [address] Medical Branch ibuprofen 2022-0 Yes [facility] 800 mg 5-30 ity of tablet 00:00: [place] [address] Medical Branch ibuprofen 2022-0 Yes [facility] 800 mg 5-30 ity of tablet 00:00: [place] [address] Medical Branch ibuprofen 2022-0 Yes [facility] 800 mg 5-30 ity of tablet 00:00: [place] [address] Medical Branch ibuprofen 2022-0 Yes [facility] 800 mg 5-30 ity of tablet 00:00: [place] [address] Medical Branch ibuprofen 2022-0 Yes [facility] 800 mg 5-30 ity of tablet 00:00: [place] [address] Medical Branch ibuprofen 2022-0 Yes [facility] 800 mg 5-30 ity of tablet 00:00: [place] [address] Medical Branch ibuprofen 2022-0 Yes [facility] 800 mg 5-30 ity of tablet 00:00: [place] [address] Medical Branch ibuprofen 2022-0 Yes [facility] 800 mg 5-30 ity of tablet 00:00: [place] [address] Medical Branch ibuprofen 2022-0 Yes [facility] 800 mg 5-30 ity of tablet 00:00: [place] [address] Medical Branch ibuprofen 2022-0 Yes [facility] 800 mg 5-30 ity of tablet 00:00: [place] [address] Medical Branch ibuprofen 2022-0 Yes [facility] 800 mg 5-30 ity of tablet 00:00: [place] [address] Medical Branch ibuprofen 2022-0 Yes [facility] 800 mg 5-30 ity of tablet 00:00: [place] [address] Medical Branch ibuprofen 2022-0 Yes [facility] 800 mg 5-30 ity of tablet 00:00: [place] [address] Medical Branch ibuprofen 2022-0 Yes [facility] 800 mg 5-30 ity of tablet 00:00: [place] [address] Medical Branch ibuprofen 2022-0 Yes [facility] 800 mg 5-30 ity of tablet 00:00: [place] [facility] ibuprofen 2022-0 Yes [facility] 800 mg 5-30 ity of tablet 00:00: [place] [facility] ibuprofen 2022-0 2022- No [facility] 800 mg 5-30 10-11 ity of tablet 00:00: 00:00 [place] 00 :00 Medical Branch ibuprofen 2022-0 2022- No [facility] 800 mg 5-30 10-11 ity of tablet 00:00: 00:00 [place] 00 :00 Medical Branch ibuprofen 2022-0 2022- No [facility] 800 mg 5-30 10-11 ity of tablet 00:00: 00:00 [place] 00 :00 Medical Branch aspirin 81 2022-0 Yes 81mg Take 81 mg U nivers mg chewable 3-17 by mouth ity of tablet 00:00: daily. [place] [facility] aspirin 81 2022-0 Yes 81mg Take 81 mg U nivers mg chewable 3-17 by mouth ity of tablet 00:00: daily. [place] [facility] aspirin 81 2022-0 Yes 81mg Take 81 mg U nivers mg chewable 3-17 by mouth ity of tablet 00:00: daily. [place] [facility] aspirin 81 2022-0 Yes 81mg Take 81 mg U nivers mg chewable 3-17 by mouth ity of tablet 00:00: daily. [place] [address] Medical Branch aspirin 81 2022-0 Yes 81mg Take 81 mg U nivers mg chewable 3-17 by mouth ity of tablet 00:00: daily. [place] [address] Medical Branch aspirin 81 2022-0 Yes 81mg Take 81 mg U nivers mg chewable 3-17 by mouth ity of tablet 00:00: daily. [place] [address] Medical Branch aspirin 81 2022-0 Yes 81mg Take 81 mg U nivers mg chewable 3-17 by mouth ity of tablet 00:00: daily. [place] [address] Medical Branch aspirin 81 2022-0 Yes 81mg Take 81 mg U nivers mg chewable 3-17 by mouth ity of tablet 00:00: daily. [place] [address] Medical Branch aspirin 81 2022-0 Yes 81mg Take 81 mg U nivers mg chewable 3-17 by mouth ity of tablet 00:00: daily. [address] Branch aspirin 81 2022-0 Yes 81mg Take 81 mg U nivers mg chewable 3-17 by mouth ity of tablet 00:00: daily. [place] [facility] Branch aspirin 81 2022-0 Yes 81mg Take 81 mg U nivers mg chewable 3-17 by mouth ity of tablet 00:00: daily. [place] [facility] aspirin 81 2022-0 Yes 81mg Take 81 mg U nivers mg chewable 3-17 by mouth ity of tablet 00:00: daily. [place] [facility] Branch aspirin 81 2022-0 Yes 81mg Take 81 mg U nivers mg chewable 3-17 by mouth ity of tablet 00:00: daily. [place] [facility] Branch aspirin 81 2022-0 Yes 81mg Take 81 mg U nivers mg chewable 3-17 by mouth ity of tablet 00:00: daily. [place] [facility] Branch aspirin 81 2022-0 Yes 81mg Take 81 mg U nivers mg chewable 3-17 by mouth ity of tablet 00:00: daily. [place] [facility] Branch aspirin 81 2022-0 Yes 81mg Take 81 mg U nivers mg chewable 3-17 by mouth ity of tablet 00:00: daily. [place] [facility] Branch aspirin 81 2022-0 Yes 81mg Take 81 mg U nivers mg chewable 3-17 by mouth ity of tablet 00:00: daily. [place] [facility] Branch aspirin 81 2022-0 Yes 81mg Take 81 mg U nivers mg chewable 3-17 by mouth ity of tablet 00:00: daily. [place] [facility] Branch aspirin 81 2022-0 Yes 81mg Take 81 mg U nivers mg chewable 3-17 by mouth ity of tablet 00:00: daily. [place] [facility] Branch aspirin 81 2022-0 Yes 81mg Take 81 mg U nivers mg chewable 3-17 by mouth ity of tablet 00:00: daily. [place] [facility] Branch aspirin 81 2022-0 Yes 81mg Take 81 mg U nivers mg chewable 3-17 by mouth ity of tablet 00:00: daily. [place] [facility] Branch aspirin 81 2022-0 Yes 81mg Take 81 mg U nivers mg chewable 3-17 by mouth ity of tablet 00:00: daily. [place] [facility] Branch aspirin 81 2022-0 Yes 81mg Take 81 mg U nivers mg chewable 3-17 by mouth ity of tablet 00:00: daily. [place] [facility] aspirin 81 2022-0 Yes 81mg Take 81 mg U nivers mg chewable 3-17 by mouth ity of tablet 00:00: daily. [place] [facility] aspirin 81 2022-0 Yes 81mg Take 81 mg U nivers mg chewable 3-17 by mouth ity of tablet 00:00: daily. [place] [facility] aspirin 81 2022-0 Yes 81mg Take 81 mg U nivers mg chewable 3-17 by mouth ity of tablet 00:00: daily. [place] [facility] aspirin 81 2022-0 Yes 81mg Take 81 mg U nivers mg chewable 3-17 by mouth ity of tablet 00:00: daily. [place] [facility] aspirin 81 2022-0 Yes 81mg Take 81 mg U nivers mg chewable 3-17 by mouth ity of tablet 00:00: daily. [place] [facility] aspirin 81 2022-0 Yes 81mg Take 81 mg U nivers mg chewable 3-17 by mouth ity of tablet 00:00: daily. [place] [facility] Branch aspirin 81 2022-0 Yes 81mg Take 81 mg U nivers mg chewable 3-17 by mouth ity of tablet 00:00: daily. [place] [facility] Branch aspirin 81 2022-0 Yes 81mg Take 81 mg U nivers mg chewable 3-17 by mouth ity of tablet 00:00: daily. [place] [facility] Branch aspirin 81 2022-0 Yes 81mg Take 81 mg U nivers mg chewable 3-17 by mouth ity of tablet 00:00: daily. [place] [facility] Branch aspirin 81 2022-0 Yes 81mg Take 81 mg U nivers mg chewable 3-17 by mouth ity of tablet 00:00: daily. [place] [facility] Branch aspirin 81 2022-0 Yes 81mg Take 81 mg U nivers mg chewable 3-17 by mouth ity of tablet 00:00: daily. [place] [facility] Branch aspirin 81 2022-0 Yes 81mg Take 81 mg U nivers mg chewable 3-17 by mouth ity of tablet 00:00: daily. [place] [facility] Branch aspirin 81 2022-0 Yes 81mg Take 81 mg U nivers mg chewable 3-17 by mouth ity of tablet 00:00: daily. [place] [facility] Branch aspirin 81 2022-0 Yes 81mg Take 81 mg U nivers mg chewable 3-17 by mouth ity of tablet 00:00: daily. [place] [facility] Branch aspirin 81 2022-0 Yes 81mg Take 81 mg U nivers mg chewable 3-17 by mouth ity of tablet 00:00: daily. [place] [facility] aspirin 81 2022-0 Yes 81mg Take 81 mg U nivers mg chewable 3-17 by mouth ity of tablet 00:00: daily. [place] [facility] Branch aspirin 81 2022-0 Yes 81mg Take 81 mg U nivers mg chewable 3-17 by mouth ity of tablet 00:00: daily. [place] [facility] Branch aspirin 81 2022-0 Yes 81mg Take 81 mg U nivers mg chewable 3-17 by mouth ity of tablet 00:00: daily. [place] [facility] Branch aspirin 81 2022-0 Yes 81mg Take 81 mg U nivers mg chewable 3-17 by mouth ity of tablet 00:00: daily. [place] [facility] Branch aspirin 81 2022-0 Yes 81mg Take 81 mg U nivers mg chewable 3-17 by mouth ity of tablet 00:00: daily. [place] [facility] Branch aspirin 81 2022-0 Yes 81mg Take 81 mg U nivers mg chewable 3-17 by mouth ity of tablet 00:00: daily. [place] [facility] Branch aspirin 81 2022-0 Yes 81mg Take 81 mg U nivers mg chewable 3-17 by mouth ity of tablet 00:00: daily. [place] [facility] Branch aspirin 81 2022-0 Yes 81mg Take 81 mg U nivers mg chewable 3-17 by mouth ity of tablet 00:00: daily. [place] [facility] Branch aspirin 81 2022-0 Yes 81mg Take 81 mg U nivers mg chewable 3-17 by mouth ity of tablet 00:00: daily. [place] [facility] Branch aspirin 81 2022-0 Yes 81mg Take 81 mg U nivers mg chewable 3-17 by mouth ity of tablet 00:00: daily. [place] [facility] Branch aspirin 81 2022-0 Yes 81mg Take 81 mg U nivers mg chewable 3-17 by mouth ity of tablet 00:00: daily. [place] [facility] Branch aspirin 81 2022-0 Yes 81mg Take 81 mg U nivers mg chewable 3-17 by mouth ity of tablet 00:00: daily. [place] [facility] aspirin 81 2022-0 Yes 81mg Take 81 mg U nivers mg chewable 3-17 by mouth ity of tablet 00:00: daily. [place] [facility] aspirin 81 2022-0 Yes 81mg Take 81 mg U nivers mg chewable 3-17 by mouth ity of tablet 00:00: daily. [place] [facility] aspirin 81 2022-0 Yes 81mg Take 81 mg U nivers mg chewable 3-17 by mouth ity of tablet 00:00: daily. [place] [facility] aspirin 81 2022-0 Yes 81mg Take 81 mg U nivers mg chewable 3-17 by mouth ity of tablet 00:00: daily. [place] [facility] aspirin 81 2022-0 Yes 81mg Take 81 mg U nivers mg chewable 3-17 by mouth ity of tablet 00:00: daily. [place] [facility] aspirin 81 2022-0 Yes 81mg Take 81 mg U nivers mg chewable 3-17 by mouth ity of tablet 00:00: daily. [place] [facility] Branch aspirin 81 2-0 Yes 81mg Take 81 mg U nivers mg chewable 3-17 by mouth ity of tablet 00:00: daily. [place] [facility] aspirin 81 2022-0 Yes 81mg Take 81 mg U nivers mg chewable 3-17 by mouth ity of tablet 00:00: daily. [place] [facility] aspirin 81 2022-0 Yes 81mg Take 81 mg U nivers mg chewable 3-17 by mouth ity of tablet 00:00: daily. [place] [facility] Branch aspirin 81 2022-0 Yes 81mg Take 81 mg U nivers mg chewable 3-17 by mouth ity of tablet 00:00: daily. [place] [facility] aspirin 81 2022-0 Yes 81mg Take 81 mg U nivers mg chewable 3-17 by mouth ity of tablet 00:00: daily. [place] [facility] aspirin 81 2022-0 Yes 81mg Take 81 mg U nivers mg chewable 3-17 by mouth ity of tablet 00:00: daily. [place] [facility] aspirin 81 2022-0 Yes 81mg Take 81 mg U nivers mg chewable 3-17 by mouth ity of tablet 00:00: daily. [place] [facility] aspirin 81 2022-0 Yes 81mg Take 81 mg U nivers mg chewable 3-17 by mouth ity of tablet 00:00: daily. [place] [facility] aspirin 81 2022-0 Yes 81mg Take 81 mg U nivers mg chewable 3-17 by mouth ity of tablet 00:00: daily. [place] [facility] aspirin 81 2022-0 Yes 81mg Take 81 mg U nivers mg chewable 3-17 by mouth ity of tablet 00:00: daily. [place] [facility] aspirin 81 2022-0 Yes 81mg Take 81 mg U nivers mg chewable 3-17 by mouth ity of tablet 00:00: daily. [place] [facility] aspirin 81 2022-0 Yes 81mg Take 81 mg U nivers mg chewable 3-17 by mouth ity of tablet 00:00: daily. [place] [facility] aspirin 81 2022-0 Yes 81mg Take 81 mg U nivers mg chewable 3-17 by mouth ity of tablet 00:00: daily. [place] [facility] aspirin 81 2022-0 Yes 81mg Take 81 mg U nivers mg chewable 3-17 by mouth ity of tablet 00:00: daily. [place] [facility] Branch aspirin 81 2022-0 Yes 81mg Take 81 mg U nivers mg chewable 3-17 by mouth ity of tablet 00:00: daily. [place] [facility] aspirin 81 2022-0 Yes 81mg Take 81 mg U nivers mg chewable 3-17 by mouth ity of tablet 00:00: daily. [place] [facility] aspirin 81 2022-0 Yes 81mg Take 81 mg U nivers mg chewable 3-17 by mouth ity of tablet 00:00: daily. [place] [facility] aspirin 81 2022-0 Yes 81mg Take 81 mg U nivers mg chewable 3-17 by mouth ity of tablet 00:00: daily. [place] [facility] aspirin 81 2022-0 Yes 81mg Take 81 mg U nivers mg chewable 3-17 by mouth ity of tablet 00:00: daily. [place] [facility] aspirin 81 2022-0 Yes 81mg Take 81 mg U nivers mg chewable 3-17 by mouth ity of tablet 00:00: daily. [address] aspirin 81 2022-0 Yes 81mg Take 81 mg U nivers mg chewable 3-17 by mouth ity of tablet 00:00: daily. [address] Branch aspirin 81 2022-0 Yes 81mg Take 81 mg U nivers mg chewable 3-17 by mouth ity of tablet 00:00: daily. [place] [facility] aspirin 81 2022-0 Yes 81mg Take 81 mg U nivers mg chewable 3-17 by mouth ity of tablet 00:00: daily. [place] [facility] aspirin 81 2022-0 Yes 81mg Take 81 mg U nivers mg chewable 3-17 by mouth ity of tablet 00:00: daily. [place] [facility] aspirin 81 2-0 Yes 81mg Take 81 mg U nivers mg chewable 3-17 by mouth ity of tablet 00:00: daily. [place] [facility] aspirin 81 2022-0 Yes 81mg Take 81 mg U nivers mg chewable 3-17 by mouth ity of tablet 00:00: daily. [place] [facility] aspirin 81 2022-0 Yes 81mg Take 81 mg U nivers mg chewable 3-17 by mouth ity of tablet 00:00: daily. [place] [facility] aspirin 81 2-0 Yes 81mg Take 81 mg U nivers mg chewable 3-17 by mouth ity of tablet 00:00: daily. [place] [facility] aspirin 81 2-0 Yes 81mg Take 81 mg U nivers mg chewable 3-17 by mouth ity of tablet 00:00: daily. [place] [facility] aspirin 81 2-0 Yes 81mg Take 81 mg U nivers mg chewable 3-17 by mouth ity of tablet 00:00: daily. [place] [facility] aspirin 81 2-0 Yes 81mg Take 81 mg U nivers mg chewable 3-17 by mouth ity of tablet 00:00: daily. [place] [facility] aspirin 81 2-0 Yes 81mg Take 81 mg U nivers mg chewable 3-17 by mouth ity of tablet 00:00: daily. [place] [facility] aspirin 81 2022-0 2023- No 81mg Take 1 Univ ers mg chewable 3-17 - tablet by it y of tablet 00:00: 00:00 mouth in [place] 00 :00 the Medical morning. Branch aspirin 81 2022-0 2023- No 81mg Take 1 Univ ers mg chewable 3-17 05-22 tablet by it y of tablet 00:00: 00:00 mouth in [place] 00 :00 the Medical morning. Branch aspirin 81 2022-0 3- No 81mg Take 1 Univ ers mg chewable 3-17 05-22 tablet by it y of tablet 00:00: 00:00 mouth in [place] 00 :00 the Medical morning. Branch busPIRone 2021-0 Yes [id number] 7.5mg Take 0.5-1 [facility] 15 mg 2-15 tablets by ity of tablet 00:00: mouth (two) Medical times [place] daily as needed (anxiety). terbinafine 2021-0 Yes [id number] 250mg Take 1 [facility] HCL 250 mg 2-15 tablet by ity of tablet 00:00: mouth 00 daily. [facility] busPIRone 2021-0 Yes [id number] 7.5mg Take 0.5-1 [facility] 15 mg 2-15 tablets by ity of tablet 00:00: mouth (two) Medical times [place] daily as needed (anxiety). terbinafine 2021-0 Yes [id number] 250mg Take 1 [facility] HCL 250 mg 2-15 tablet by ity of tablet 00:00: mouth 00 daily. [facility] busPIRone 0 Yes [id number] 7.5mg Take 0.5-1 [facility] 15 mg 2-15 tablets by ity of tablet 00:00: mouth (two) Medical [facility] daily as needed (anxiety). terbinafine 2021-0 Yes [id number] 250mg Take 1 [facility] HCL 250 mg 2-15 tablet by ity of tablet 00:00: mouth 00 daily. [facility] busPIRone 2021-0 Yes [id number] 7.5mg Take 0.5-1 [facility] 15 mg 2-15 tablets by ity of tablet 00:00: mouth (two) Medical times [place] daily as needed (anxiety). terbinafine 2021-0 Yes [id number] 250mg Take 1 [facility] HCL 250 mg 2-15 tablet by ity of tablet 00:00: mouth 00 daily. [facility] busPIRone 2021-0 Yes [id number] 7.5mg Take 0.5-1 [facility] 15 mg 2-15 tablets by ity of tablet 00:00: mouth 2 (two) Medical times [place] daily as needed (anxiety). terbinafine 2021-0 Yes [id number] 250mg Take 1 [facility] HCL 250 mg 2-15 tablet by ity of tablet 00:00: mouth [place] 00 daily. Medical Branch busPIRone 2021-0 Yes [id number] 7.5mg Take 0.5-1 [facility] 15 mg 2-15 tablets by ity of tablet 00:00: mouth 2 00 (two) Medical times Branch daily as needed (anxiety). terbinafine 2021-0 Yes [id number] 250mg Take 1 [facility] HCL 250 mg 2-15 tablet by ity of tablet 00:00: mouth [place] 00 daily. Medical Branch busPIRone 2021-0 Yes [id number] 7.5mg Take 0.5-1 [facility] 15 mg 2-15 tablets by ity of tablet 00:00: mouth 00 (two) Medical times Branch daily as needed (anxiety). terbinafine 2021-0 Yes [id number] 250mg Take 1 [facility] HCL 250 mg 2-15 tablet by ity of tablet 00:00: mouth 00 daily. Medical Branch busPIRone 2021-0 Yes [id number] 7.5mg Take 0.5-1 [facility] 15 mg 2-15 tablets by ity of tablet 00:00: mouth (two) Medical times Branch daily as needed (anxiety). terbinafine 2021-0 Yes [id number] 250mg Take 1 [facility] HCL 250 mg 2-15 tablet by ity of tablet 00:00: mouth 00 daily. Medical Branch busPIRone 2021-0 Yes [id number] 7.5mg Take 0.5-1 [facility] 15 mg 2-15 tablets by ity of tablet 00:00: mouth (two) Medical times Branch daily as needed (anxiety). terbinafine 2021-0 Yes [id number] 250mg Take 1 [facility] HCL 250 mg 2-15 tablet by ity of tablet 00:00: mouth 00 daily. Medical Branch busPIRone 2021-0 Yes [id number] 7.5mg Take 0.5-1 [facility] 15 mg 2-15 tablets by ity of tablet 00:00: mouth 2 00 (two) Medical times Branch daily as needed (anxiety). terbinafine 2021-0 Yes [id number] 250mg Take 1 [facility] HCL 250 mg 2-15 tablet by ity of tablet 00:00: mouth [place] 00 daily. Medical Branch busPIRone 2021-0 Yes [id number] 7.5mg Take 0.5-1 [facility] 15 mg 2-15 tablets by ity of tablet 00:00: mouth 00 (two) Medical times Branch daily as needed (anxiety). terbinafine 2021-0 Yes [id number] 250mg Take 1 [facility] HCL 250 mg 2-15 tablet by ity of tablet 00:00: mouth [place] 00 daily. Medical Branch busPIRone 2021-0 Yes [id number] 7.5mg Take 0.5-1 [facility] 15 mg 2-15 tablets by ity of tablet 00:00: mouth 2 00 (two) Medical times Branch daily as needed (anxiety). terbinafine 2021-0 Yes [id number] 250mg Take 1 [facility] HCL 250 mg 2-15 tablet by ity of tablet 00:00: mouth [place] 00 daily. Medical Branch busPIRone 2021-0 Yes [id number] 7.5mg Take 0.5-1 [facility] 15 mg 2-15 tablets by ity of tablet 00:00: mouth 00 (two) Medical times Branch daily as needed (anxiety). terbinafine 2021-0 Yes [id number] 250mg Take 1 [facility] HCL 250 mg 2-15 tablet by ity of tablet 00:00: mouth 00 daily. Medical Branch busPIRone 2021-0 Yes [id number] 7.5mg Take 0.5-1 [facility] 15 mg 2-15 tablets by ity of tablet 00:00: mouth 00 (two) Medical times Branch daily as needed (anxiety). terbinafine 2021-0 Yes [id number] 250mg Take 1 [facility] HCL 250 mg 2-15 tablet by ity of tablet 00:00: mouth [place] 00 daily. Medical Branch busPIRone 2021-0 Yes [id number] 7.5mg Take 0.5-1 [facility] 15 mg 2-15 tablets by ity of tablet 00:00: mouth 2 00 (two) Medical times Branch daily as needed (anxiety). terbinafine 2-0 Yes [id number] 250mg Take 1 [facility] HCL 250 mg 2-15 tablet by ity of tablet 00:00: mouth [place] 00 daily. Medical Branch busPIRone 2022-0 Yes [id number] 7.5mg Take 0.5-1 [facility] 15 mg 2-15 tablets by ity of tablet 00:00: mouth 2 00 (two) Medical times Branch daily as needed (anxiety). terbinafine 2021-0 Yes [id number] 250mg Take 1 [facility] HCL 250 mg 2-15 tablet by ity of tablet 00:00: mouth [place] 00 daily. Medical Branch busPIRone 2021-0 Yes [id number] 7.5mg Take 0.5-1 [facility] 15 mg 2-15 tablets by ity of tablet 00:00: mouth 2 00 (two) Medical times Branch daily as needed (anxiety). terbinafine 2021-0 Yes [id number] 250mg Take 1 [facility] HCL 250 mg 2-15 tablet by ity of tablet 00:00: mouth [place] 00 daily. [facility] Branch busPIRone 2021-0 Yes [id number] 7.5mg Take 0.5-1 Univers 15 mg 2-15 tablets by ity of tablet 00:00: mouth 2 00 (two) Medical times Branch daily as needed (anxiety). terbinafine 2021-0 Yes [id number] 250mg Take 1 [facility] HCL 250 mg 2-15 tablet by ity of tablet 00:00: mouth [place] 00 daily. [facility] Branch terbinafine 0 Yes [id number] 250mg Take 1 [facility] HCL 250 mg 2-15 tablet by ity of tablet 00:00: mouth [place] 00 daily. [facility] Branch terbinafine 2021-0 Yes [id number] 250mg Take 1 [facility] HCL 250 mg 2-15 tablet by ity of tablet 00:00: mouth [place] 00 daily. [facility] Branch terbinafine 2021-0 Yes [id number] 250mg Take 1 [facility] HCL 250 mg 2-15 tablet by ity of tablet 00:00: mouth [place] 00 daily. [facility] Branch terbinafine 2021-0 Yes [id number] 250mg Take 1 [facility] HCL 250 mg 2-15 tablet by ity of tablet 00:00: mouth [place] 00 daily. [facility] terbinafine 2021-0 Yes [id number] 250mg Take 1 [facility] HCL 250 mg 2-15 tablet by ity of tablet 00:00: mouth [place] 00 daily. [facility] terbinafine 2021-0 Yes [id number] 250mg Take 1 [facility] HCL 250 mg 2-15 tablet by ity of tablet 00:00: mouth [place] 00 daily. [facility] terbinafine 2021-0 Yes [id number] 250mg Take 1 [facility] HCL 250 mg 2-15 tablet by ity of tablet 00:00: mouth [place] 00 daily. [facility] terbinafine 2021-0 Yes [id number] 250mg Take 1 [facility] HCL 250 mg 2-15 tablet by ity of tablet 00:00: mouth [place] 00 daily. [facility] terbinafine 2021-0 Yes [id number] 250mg Take 1 [facility] HCL 250 mg 2-15 tablet by ity of tablet 00:00: mouth [place] 00 daily. [facility] terbinafine 0 Yes [id number] 250mg Take 1 [facility] HCL 250 mg 2-15 tablet by ity of tablet 00:00: mouth [place] 00 daily. [facility] terbinafine 2021-0 Yes [id number] 250mg Take 1 [facility] HCL 250 mg 2-15 tablet by ity of tablet 00:00: mouth [place] 00 daily. [facility] terbinafine 0 Yes [id number] 250mg Take 1 [facility] HCL 250 mg 2-15 tablet by ity of tablet 00:00: mouth [place] 00 daily. [facility] terbinafine 0 Yes [id number] 250mg Take 1 [facility] HCL 250 mg 2-15 tablet by ity of tablet 00:00: mouth [place] 00 daily. [facility] terbinafine 2021-0 Yes [id number] 250mg Take 1 [facility] HCL 250 mg 2-15 tablet by ity of tablet 00:00: mouth [place] 00 daily. [facility] terbinafine 2021-0 Yes [id number] 250mg Take 1 [facility] HCL 250 mg 2-15 tablet by ity of tablet 00:00: mouth [place] 00 daily. [facility] terbinafine 2021-0 Yes [id number] 250mg Take 1 [facility] HCL 250 mg 2-15 tablet by ity of tablet 00:00: mouth [place] 00 daily. [facility] terbinafine 2021-0 Yes [id number] 250mg Take 1 [facility] HCL 250 mg 2-15 tablet by ity of tablet 00:00: mouth [place] 00 daily. [facility] terbinafine 2021-0 Yes [id number] 250mg Take 1 [facility] HCL 250 mg 2-15 tablet by ity of tablet 00:00: mouth [place] 00 daily. [facility] terbinafine 2021-0 Yes [id number] 250mg Take 1 [facility] HCL 250 mg 2-15 tablet by ity of tablet 00:00: mouth [place] 00 daily. [facility] terbinafine 2021-0 Yes [id number] 250mg Take 1 [facility] HCL 250 mg 2-15 tablet by ity of tablet 00:00: mouth [place] 00 daily. [facility] terbinafine 2021-0 Yes [id number] 250mg Take 1 [facility] HCL 250 mg 2-15 tablet by ity of tablet 00:00: mouth [place] 00 daily. [facility] terbinafine 0 Yes [id number] 250mg Take 1 [facility] HCL 250 mg 2-15 tablet by ity of tablet 00:00: mouth [place] 00 daily. [facility] terbinafine 0 Yes [id number] 250mg Take 1 [facility] HCL 250 mg 2-15 tablet by ity of tablet 00:00: mouth [place] 00 daily. [facility] terbinafine 2022- No [id number] 250mg Take 1 [facility] HCL 250 mg 2-15 -19 tablet by ity of tablet 00:00: 00:00 mouth [place] 00 :00 daily. [facility] terbinafine 2022- No [id number] 250mg Take 1 [facility] HCL 250 mg 2-15 -19 tablet by ity of tablet 00:00: 00:00 mouth [place] 00 :00 daily. [facility] terbinafine 0 2022- No [id number] 250mg Take 1 [facility] HCL 250 mg 2-15 -19 tablet by ity of tablet 00:00: 00:00 mouth [place] 00 :00 daily. [facility] terbinafine 2021-0 2022- No [id number] 250mg Take 1 [facility] HCL 250 mg 2-15 -19 tablet by ity of tablet 00:00: 00:00 mouth [place] 00 :00 daily. [facility] terbinafine 0 2022- No [id number] 250mg Take 1 [facility] HCL 250 mg 2-15 -19 tablet by ity of tablet 00:00: 00:00 mouth [place] 00 :00 daily. [facility] terbinafine 0 2022- No [id number] 250mg Take 1 [facility] HCL 250 mg 2-15 -19 tablet by ity of tablet 00:00: 00:00 mouth [place] 00 :00 daily. Medical Branch busPIRone 2021- No [id number] 7.5mg Take 0.5-1 Univers 15 mg 2-15 10-11 tablets by ity of tablet 00:00: 00:00 mouth 2 [place] 00 :00 (two) Medical times Branch daily as needed (anxiety). busPIRone 2021- No [id number] 7.5mg Take 0.5-1 [facility] 15 mg 2-15 10-11 tablets by ity of tablet 00:00: 00:00 mouth 2 [place] 00 :00 (two) Medical times Branch daily as needed (anxiety). busPIRone 2021- No [id number] 7.5mg Take 0.5-1 [facility] 15 mg 2-15 10-11 tablets by ity of tablet 00:00: 00:00 mouth 2 [place] 00 :00 (two) Medical times Branch daily as needed (anxiety). busPIRone 2021- No [id number] 7.5mg Take 0.5-1 [facility] 15 mg 2-15 10-11 tablets by ity of tablet 00:00: 00:00 mouth 2 [place] 00 :00 (two) Medical times Branch daily as needed (anxiety). aspirin 81 2021- No [id number] 81mg Take 1 Univers mg EC 2-15 06-10 tablet by ity of tablet 00:00: 00:00 mouth [place] 00 :00 daily. Medical Branch rosuvastati 2021- No [id number] 40mg Take 1 Univers n 40 mg 2-15 06-10 tablet by ity of tablet 00:00: 00:00 mouth at [place] 00 :00 bedtime. Medical Branch Ferrous 2021- No [id number] 1{tbl} Take 1 [facility] Fumarate 2-15 04-14 tablet by ity o f 324 mg (106 00:00: 00:00 mouth 2 [place] mg iron) 00 :00 (two) Medical Tab times Branch daily. Take with a source of vitamin C. OZEMPIC Yes [id number] INJECT Univ ers 0.25 mg or 2-09 0.5MG ity of 0.5 mg(2 00:00: [place] mg/1.5 mL) 00 SKIN EVERY Med ical PnIj [facility] Yes [id number] INJECT Univ ers 0.25 mg or 2-09 0.5MG ity of 0.5 mg(2 00:00: [place] mg/1.5 mL) 00 SKIN EVERY Med ical PnIj [facility] Yes [id number] INJECT Univ ers 0.25 mg or 2-09 0.5MG ity of 0.5 mg(2 00:00: [place] mg/1.5 mL) 00 SKIN EVERY Med ical PnIj [facility] Yes [id number] INJECT Univ ers 0.25 mg or 2-09 0.5MG ity of 0.5 mg(2 00:00: [place] mg/1.5 mL) 00 SKIN EVERY Med ical PnIj [facility] Yes [id number] INJECT Univ ers 0.25 mg or 2-09 0.5MG ity of 0.5 mg(2 00:00: [place] mg/1.5 mL) 00 SKIN EVERY Med ical PnIj [facility] Yes [id number] INJECT Univ ers 0.25 mg or 2-09 0.5MG ity of 0.5 mg(2 00:00: [place] mg/1.5 mL) 00 SKIN EVERY Med ical PnIj [facility] Yes [id number] INJECT Univ ers 0.25 mg or 2-09 0.5MG ity of 0.5 mg(2 00:00: [place] mg/1.5 mL) 00 SKIN EVERY Med ical PnIj [facility] Yes [id number] INJECT Univ ers 0.25 mg or 2-09 0.5MG ity of 0.5 mg(2 00:00: [place] mg/1.5 mL) 00 SKIN EVERY Med ical PnIj [facility] Yes [id number] INJECT Univ ers 0.25 mg or 2-09 0.5MG ity of 0.5 mg(2 00:00: [place] mg/1.5 mL) 00 SKIN EVERY Med ical PnIj [facility] Yes [id number] INJECT Univ ers 0.25 mg or 2-09 0.5MG ity of 0.5 mg(2 00:00: [place] THE [place] mg/1.5 mL) 00 SKIN EVERY Med ical PnIj [facility] Yes [id number] INJECT Univ ers 0.25 mg or 2-09 0.5MG ity of 0.5 mg(2 00:00: [place] mg/1.5 mL) 00 SKIN EVERY Med ical PnIj [facility] Yes [id number] INJECT Univ ers 0.25 mg or 2-09 0.5MG ity of 0.5 mg(2 00:00: [place] mg/1.5 mL) 00 SKIN EVERY Med ical PnIj [facility] Yes [id number] INJECT Univ ers 0.25 mg or 2-09 0.5MG ity of 0.5 mg(2 00:00: [place] mg/1.5 mL) 00 SKIN EVERY Med ical PnIj [facility] Yes [id number] INJECT Univ ers 0.25 mg or 2-09 0.5MG ity of 0.5 mg(2 00:00: [place] mg/1.5 mL) 00 SKIN EVERY Med ical PnIj [facility] Yes [id number] INJECT Univ ers 0.25 mg or 2-09 0.5MG ity of 0.5 mg(2 00:00: [place] mg/1.5 mL) 00 SKIN EVERY Med ical PnIj [facility] Yes [id number] INJECT Univ ers 0.25 mg or 2-09 0.5MG ity of 0.5 mg(2 00:00: [place] mg/1.5 mL) 00 SKIN EVERY Med ical PnIj [facility] Yes [id number] INJECT Univ ers 0.25 mg or 2-09 0.5MG ity of 0.5 mg(2 00:00: [place] mg/1.5 mL) 00 SKIN EVERY Med ical PnIj [facility] Yes [id number] INJECT Univ ers 0.25 mg or 2-09 0.5MG ity of 0.5 mg(2 00:00: [place] mg/1.5 mL) 00 SKIN EVERY Med ical PnIj [facility] 2021- No [id number] INJECT Uni vers 0.25 mg or 11-03- 0.5MG ity of 0.5 mg(2 00:00: 00:00 UNDER THE [place] mg/1.5 mL) 00 :00 SKIN EVERY Med ical PnIj [facility] 2021- No [id number] INJECT Uni vers 0.25 mg or 207-05 0.5MG ity of 0.5 mg(2 00:00: 00:00 UNDER THE [place] as mg/1.5 mL) 00 :00 SKIN EVERY Med ical Ij [facility] 2021- No [id number] INJECT Uni vers 0.25 mg or 11-03 0.5MG ity of 0.5 mg(2 00:00: 00:00 UNDER THE [place] as mg/1.5 mL) 00 :00 SKIN EVERY Med ical PnIj [facility] 2021- No [id number] INJECT Uni vers 0.25 mg or 11-03 0.5MG ity of 0.5 mg(2 00:00: 00:00 UNDER THE [place] as mg/1.5 mL) 00 :00 SKIN EVERY Med ical Ij [facility] spironolact 2021- No 25mg Take 1 Uni vers one 25 mg 2-03 29-31 tablet by ity of tablet 00:00: 00:00 mouth [place] 00 :00 daily. Medical Branch CARBAMAZEPI Yes [id number] TAKE 1 Univers NE 100 mg 2-03 TABLET BY ity o f 12 hr 00:00: MOUTH [place] tablet 00 TWICE Medical DAILY Branch CARBAMAZEPI Yes [id number] TAKE 1 [facility] NE 100 mg 2-03 TABLET BY ity o f 12 hr 00:00: MOUTH [place] tablet 00 TWICE Medical DAILY Branch CARBAMAZEPI Yes [id number] TAKE 1 [facility] NE 100 mg 2-03 TABLET BY ity o f 12 hr 00:00: MOUTH [place] tablet 00 TWICE Medical DAILY Branch CARBAMAZEPI 2021-0 Yes [id number] TAKE 1 Univers NE 100 mg 2-03 TABLET BY ity o f 12 hr 00:00: MOUTH [place] tablet 00 TWICE Medical DAILY Branch CARBAMAZEPI 2021-0 Yes [id number] TAKE 1 [facility] NE 100 mg 2-03 TABLET BY ity o f 12 hr 00:00: MOUTH [place] tablet 00 TWICE Medical DAILY Branch CARBAMAZEPI 2021-0 Yes [id number] TAKE 1 [facility] NE 100 mg 2-03 TABLET BY ity o f 12 hr 00:00: MOUTH [place] tablet 00 TWICE Medical DAILY Branch CARBAMAZEPI 2021-0 Yes [id number] TAKE 1 [facility] NE 100 mg 2-03 TABLET BY ity o f 12 hr 00:00: MOUTH [place] tablet 00 TWICE Medical DAILY Branch CARBAMAZEPI 2021-0 Yes [id number] TAKE 1 [facility] NE 100 mg 2-03 TABLET BY ity o f 12 hr 00:00: MOUTH [place] tablet 00 TWICE Medical DAILY Branch CARBAMAZEPI 2021-0 Yes [id number] TAKE 1 [facility] NE 100 mg 2-03 TABLET BY ity o f 12 hr 00:00: MOUTH [place] tablet 00 TWICE Medical DAILY Branch CARBAMAZEPI 2021-0 Yes [id number] TAKE 1 [facility] NE 100 mg 2-03 TABLET BY ity o f 12 hr 00:00: MOUTH [place] tablet 00 TWICE Medical DAILY Branch CARBAMAZEPI 2021-0 Yes [id number] TAKE 1 [facility] NE 100 mg 2-03 TABLET BY ity o f 12 hr 00:00: MOUTH [place] tablet 00 TWICE Medical DAILY Branch CARBAMAZEPI 2021-0 Yes [id number] TAKE 1 [facility] NE 100 mg 2-03 TABLET BY ity o f 12 hr 00:00: MOUTH [place] tablet 00 TWICE Medical DAILY Branch CARBAMAZEPI 2021-0 Yes [id number] TAKE 1 [facility] NE 100 mg 2-03 TABLET BY ity o f 12 hr 00:00: MOUTH [place] tablet 00 TWICE Medical DAILY Branch CARBAMAZEPI 2021-0 Yes [id number] TAKE 1 [facility] NE 100 mg 2-03 TABLET BY ity o f 12 hr 00:00: MOUTH [place] tablet 00 TWICE Medical DAILY Branch CARBAMAZEPI 2021-0 Yes [id number] TAKE 1 [facility] NE 100 mg 2-03 TABLET BY ity o f 12 hr 00:00: MOUTH [place] tablet 00 TWICE Medical DAILY Branch CARBAMAZEPI Yes [id number] TAKE 1 [facility] NE 100 mg 2-03 TABLET BY ity o f 12 hr 00:00: MOUTH [place] tablet 00 TWICE Medical DAILY Branch CARBAMAZEPI Yes [id number] TAKE 1 [facility] NE 100 mg 2-03 TABLET BY ity o f 12 hr 00:00: MOUTH [place] tablet 00 TWICE Medical DAILY Branch CARBAMAZEPI Yes [id number] TAKE 1 [facility] NE 100 mg 2-03 TABLET BY ity o f 12 hr 00:00: MOUTH [place] tablet 00 TWICE Medical DAILY Branch CARBAMAZEPI 2021- No [id number] TAKE 1 [facility] NE 100 mg 2-03 10-11 TABLET BY ity of 12 hr 00:00: 00:00 MOUTH [place] tablet 00 :00 TWICE Medical DAILY Branch CARBAMAZEPI 2021- No [id number] TAKE 1 [facility] NE 100 mg 2-03 10-11 TABLET BY ity of 12 hr 00:00: 00:00 MOUTH [place] tablet 00 :00 TWICE Medical DAILY Branch CARBAMAZEPI 2021- No [id number] TAKE 1 [facility] NE 100 mg 2-03 10-11 TABLET BY ity of 12 hr 00:00: 00:00 MOUTH [place] tablet 00 :00 TWICE Medical DAILY Branch CARBAMAZEPI 2021- No [id number] TAKE 1 [facility] NE 100 mg 2-03 10-11 TABLET BY ity of 12 hr 00:00: 00:00 MOUTH [place] tablet 00 :00 TWICE Medical DAILY Branch traZODone 2021- No [id number] TAKE 1 [facility] 50 mg 1-26 04-06 TABLET BY ity of tablet 00:00: 00:00 MOUTH [place] 00 :00 EVERY Medical NIGHT AT [place] BEDTIME NEEDED FOR INSOMNIA Insulin 2021- No [id number] 30U inject 30 [facility] Glargine 1-10 04-06 Units ity of (LANTUS 00:00: 00:[place] 00 :00 skin 2 Medical U-100 (two) Branch INSULIN) times 100 unit/mL daily. (3 mL) injection DULOXETINE Yes [id number] 60mg TAKE 1 [facility] 60 mg 1-03 CAPSULE BY ity of capsule 00:00: MOUTH [place] 00 DAILY Medical Branch DULOXETINE 2021-2021- No [id number] 60mg TAKE 1 [facility] 60 mg 09-27 CAPSULE BY ity of capsule 00:00: 00:00 MOUTH [place] 00 :00 DAILY Medical Branch DULOXETINE 2021-0 2021- No [id number] 60mg TAKE 1 [facility] 60 mg 09-27 CAPSULE BY ity of capsule 00:00: 00:00 MOUTH [place] 00 :00 DAILY Medical Branch prasugreL 2021- No [id number] 10mg Take 1 [facility] 10 mg 09-27 tablet by ity of tablet 00:00: 00:00 mouth [place] 00 :00 daily. [facility]oint[facility] Branch t needed. Please contact office. QUETIAPINE 2021- No [id number] 400mg TAKE 1 [facility] 400 mg 09-27 TABLET BY ity of tablet 00:00: 00:00 MOUTH AT [place] 00 :00 BEDTIME Medical Branch GABAPENTIN 2020- Yes [id number] TAKE 1 [facility] 300 mg 2-27 CAPSULE BY ity of capsule 00:00: MOUTH [place] 00 TWICE Medical DAILY Branch GABAPENTIN 2020- Yes [id number] TAKE 1 [facility] 300 mg 2-27 CAPSULE BY ity of capsule 00:00: MOUTH [place] 00 TWICE Medical DAILY Branch GABAPENTIN 2020-1 Yes [id number] TAKE 1 [facility] 300 mg 2-27 CAPSULE BY ity of capsule 00:00: MOUTH [place] 00 TWICE Medical DAILY Branch GABAPENTIN 2020-1 Yes [id number] TAKE 1 [facility] 300 mg 2-27 CAPSULE BY ity of capsule 00:00: MOUTH [place] 00 TWICE Medical DAILY Branch GABAPENTIN 2020-1 Yes [id number] TAKE 1 [facility] 300 mg 2-27 CAPSULE BY ity of capsule 00:00: MOUTH [place] 00 TWICE Medical DAILY Branch GABAPENTIN 2020-1 Yes [id number] TAKE 1 [facility] 300 mg 2-27 CAPSULE BY ity of capsule 00:00: MOUTH [place] 00 TWICE Medical DAILY Branch GABAPENTIN 2020-1 Yes [id number] TAKE 1 [facility] 300 mg 2-27 CAPSULE BY ity of capsule 00:00: MOUTH [place] 00 TWICE Medical DAILY Branch GABAPENTIN 2020-1 Yes [id number] TAKE 1 [facility] 300 mg 2-27 CAPSULE BY ity of capsule 00:00: MOUTH [place] 00 TWICE Medical DAILY Branch GABAPENTIN 202- Yes [id number] TAKE 1 [facility] 300 mg 2-27 CAPSULE BY ity of capsule 00:00: MOUTH [place] TWICE Medical DAILY Branch GABAPENTIN 2020-1 Yes [id number] TAKE 1 [facility] 300 mg 2-27 CAPSULE BY ity of capsule 00:00: MOUTH [place] TWICE Medical DAILY Branch GABAPENTIN 2020- Yes [id number] TAKE 1 [facility] 300 mg 2-27 CAPSULE BY ity of capsule 00:00: MOUTH [place] TWICE Medical DAILY Branch GABAPENTIN 2020- Yes [id number] TAKE 1 [facility] 300 mg 2-27 CAPSULE BY ity of capsule 00:00: MOUTH [place] TWICE Medical DAILY Branch GABAPENTIN 2020- Yes [id number] TAKE 1 [facility] 300 mg 2-27 CAPSULE BY ity of capsule 00:00: MOUTH [place] TWICE Medical DAILY Branch GABAPENTIN 2020- Yes [id number] TAKE 1 [facility] 300 mg 2-27 CAPSULE BY ity of capsule 00:00: MOUTH [place] TWICE Medical DAILY Branch GABAPENTIN 2020- Yes [id number] TAKE 1 [facility] 300 mg 2-27 CAPSULE BY ity of capsule 00:00: MOUTH [place] TWICE Medical DAILY Branch GABAPENTIN 2020- Yes [id number] TAKE 1 [facility] 300 mg 2-27 CAPSULE BY ity of capsule 00:00: MOUTH [place] TWICE Medical DAILY Branch GABAPENTIN 2020- Yes [id number] TAKE 1 [facility] 300 mg 2-27 CAPSULE BY ity of capsule 00:00: MOUTH [place] TWICE Medical DAILY Branch GABAPENTIN 2020-1 Yes [id number] TAKE 1 [facility] 300 mg 2-27 CAPSULE BY ity of capsule 00:00: MOUTH [place] TWICE Medical DAILY Branch GABAPENTIN 2020- 2022- No [id number] TAKE 1 [facility] 300 mg 2-27 10-11 CAPSULE BY ity of capsule 00:00: 00:00 MOUTH [place] 00 :00 TWICE Medical DAILY Branch GABAPENTIN 2020-2- No [id number] TAKE 1 [facility] 300 mg 2-27 10-11 CAPSULE BY ity of capsule 00:00: 00:00 MOUTH [place] 00 :00 TWICE Medical DAILY Branch GABAPENTIN 2020-1 2021- No [id number] TAKE 1 [facility] 300 mg 2-27 10-11 CAPSULE BY ity of capsule 00:00: 00:00 MOUTH [place] 00 :00 TWICE Medical DAILY Branch GABAPENTIN 2020-2021- No [id number] TAKE 1 [facility] 300 mg 2-27 10-11 CAPSULE BY ity of capsule 00:00: 00:00 MOUTH [place] 00 :00 TWICE Medical DAILY Branch OMEPRAZOLE 2020- Yes [id number] TAKE 1 [facility] 40 mg 2-16 CAPSULE BY ity of capsule 00:00: MOUTH [place] DAILY Medical Branch OMEPRAZOLE 2020-09 Yes [id number] TAKE 1 [facility] 40 mg 2-16 CAPSULE BY ity of capsule 00:00: MOUTH [place] DAILY Medical Branch OMEPRAZOLE 2020- Yes [id number] TAKE 1 [facility] 40 mg 2-16 CAPSULE BY ity of capsule 00:00: MOUTH [place] DAILY Medical Branch OMEPRAZOLE 2020-09 Yes [id number] TAKE 1 [facility] 40 mg 2-16 CAPSULE BY ity of capsule 00:00: MOUTH [place] DAILY Medical Branch OMEPRAZOLE 2020-09 Yes [id number] TAKE 1 [facility] 40 mg 2-16 CAPSULE BY ity of capsule 00:00: [facility] DAILY Medical Branch OMEPRAZOLE 2020-09 Yes [id number] TAKE 1 [facility] 40 mg 2-16 CAPSULE BY ity of capsule 00:00: MOUTH [place] DAILY Medical Branch OMEPRAZOLE 2020-09 Yes [id number] TAKE 1 [facility] 40 mg 2-16 CAPSULE BY ity of capsule 00:00: [facility] DAILY Medical Branch OMEPRAZOLE 2020- Yes [id number] TAKE 1 [facility] 40 mg 2-16 CAPSULE BY ity of capsule 00:00: [facility] DAILY Medical Branch OMEPRAZOLE 2020- Yes [id number] TAKE 1 [facility] 40 mg 2-16 CAPSULE BY ity of capsule 00:00: [facility] DAILY Medical Branch OMEPRAZOLE 2020- Yes [id number] TAKE 1 [facility] 40 mg 2-16 CAPSULE BY ity of capsule 00:00: [facility] DAILY Medical Branch OMEPRAZOLE 2020- Yes [id number] TAKE 1 [facility] 40 mg 2-16 CAPSULE BY ity of capsule 00:00: [facility] DAILY Medical Branch OMEPRAZOLE 2020- Yes [id number] TAKE 1 [facility] 40 mg 2-16 CAPSULE BY ity of capsule 00:00: [facility] DAILY Medical Branch OMEPRAZOLE 2020- Yes [id number] TAKE 1 [facility] 40 mg 2-16 CAPSULE BY ity of capsule 00:00: [facility] DAILY Medical Branch OMEPRAZOLE 2020-09 Yes [id number] TAKE 1 [facility] 40 mg 2-16 CAPSULE BY ity of capsule 00:00: MOUTH [place] 00 DAILY Medical Branch OMEPRAZOLE 2020-09 Yes [id number] TAKE 1 [facility] 40 mg 2-16 CAPSULE BY ity of capsule 00:00: MOUTH [place] 00 DAILY Medical Branch OMEPRAZOLE 2020-09 Yes [id number] TAKE 1 [facility] 40 mg 2-16 CAPSULE BY ity of capsule 00:00: MOUTH [place] 00 DAILY Medical Branch OMEPRAZOLE 2020-09 Yes [id number] TAKE 1 [facility] 40 mg 2-16 CAPSULE BY ity of capsule 00:00: MOUTH [place] 00 DAILY Medical Branch OMEPRAZOLE 2020-09 Yes [id number] TAKE 1 [facility] 40 mg 2-16 CAPSULE BY ity of capsule 00:00: MOUTH [place] DAILY Medical Branch OMEPRAZOLE 2020-2021- No [id number] TAKE 1 [facility] 40 mg 2-16 10-11 CAPSULE BY ity of capsule 00:00: 00:00 [facility] 00 :00 DAILY Medical Branch OMEPRAZOLE 2020-09 202- No [id number] TAKE 1 [facility] 40 mg 2-16 10-11 CAPSULE BY ity of capsule 00:00: 00:00 [facility] 00 :00 DAILY Medical Branch OMEPRAZOLE 2020-09- No [id number] TAKE 1 [facility] 40 mg 2-16 10-11 CAPSULE BY ity of capsule 00:00: 00:00 [facility] 00 :00 DAILY Medical Branch OMEPRAZOLE 2020-2021- No [id number] TAKE 1 [facility] 40 mg 2-16 10-11 CAPSULE BY ity of capsule 00:00: 00:00 [facility] 00 :00 DAILY Medical Branch fluticasone 2020-09 Yes [id number] 1{spray Use 1-2 [facility] propionate 2-15 } Sprays in ity of 50 00:00: each [place] mcg/actuati 00 nostril Medic al on nasal daily. Branch spray fluticasone 2020-09 Yes [id number] 1{spray Use 1-2 [facility] propionate 2-15 } Sprays in ity of 50 00:00: each [place] mcg/actuati 00 nostril Medic al on nasal daily. Branch spray fluticasone 2020-09 Yes [id number] 1{spray Use 1-2 [facility] propionate 2-15 } Sprays in ity of 50 00:00: each [place] mcg/actuati 00 nostril Medic al on nasal daily. Branch spray fluticasone 2020-09 Yes [id number] 1{spray Use 1-2 [facility] propionate 2-15 } Sprays in ity of 50 00:00: each [place] mcg/actuati 00 nostril Medic al on nasal daily. Branch spray fluticasone 2020-09 Yes [id number] 1{spray Use 1-2 [facility] propionate 2-15 } Sprays in ity of 50 00:00: each [place] mcg/actuati 00 nostril Medic al on nasal daily. Branch spray fluticasone 2020-09 Yes [id number] 1{spray Use 1-2 [facility] propionate 2-15 } Sprays in ity of 50 00:00: each [place] mcg/actuati 00 nostril Medic al on nasal daily. Branch spray fluticasone 2020-09 Yes [id number] 1{spray Use 1-2 [facility] propionate 2-15 } Sprays in ity of 50 00:00: each [place] mcg/actuati 00 nostril Medic al on nasal daily. Branch spray fluticasone 2020-09 Yes [id number] 1{spray Use 1-2 [facility] propionate 2-15 } Sprays in ity of 50 00:00: each [place] mcg/actuati 00 nostril Medic al on nasal daily. Branch spray fluticasone 2020-09 Yes [id number] 1{spray Use 1-2 [facility] propionate 2-15 } Sprays in ity of 50 00:00: each [place] mcg/actuati 00 nostril Medic al on nasal daily. Branch spray fluticasone 2020-09 Yes [id number] 1{spray Use 1-2 [facility] propionate 2-15 } Sprays in ity of 50 00:00: each [place] mcg/actuati 00 nostril Medic al on nasal daily. Branch spray fluticasone 2020-09 Yes [id number] 1{spray Use 1-2 [facility] propionate 2-15 } Sprays in ity of 50 00:00: each [place] mcg/actuati 00 nostril Medic al on nasal daily. Branch spray fluticasone 2020-09 Yes [id number] 1{spray Use 1-2 [facility] propionate 2-15 } Sprays in ity of 50 00:00: each [place] mcg/actuati 00 nostril Medic al on nasal daily. Branch spray fluticasone 2020-09 Yes [id number] 1{spray Use 1-2 [facility] propionate 2-15 } Sprays in ity of 50 00:00: each [place] mcg/actuati 00 nostril Medic al on nasal daily. Branch spray fluticasone 2020-09 Yes [id number] 1{spray Use 1-2 [facility] propionate 2-15 } Sprays in ity of 50 00:00: each [place] mcg/actuati 00 nostril Medic al on nasal daily. Branch spray fluticasone 2020-09 Yes [id number] 1{spray Use 1-2 [facility] propionate 2-15 } Sprays in ity of 50 00:00: each [place] mcg/actuati 00 nostril Medic al on nasal daily. Branch spray fluticasone 2020-09 Yes [id number] 1{spray Use 1-2 [facility] propionate 2-15 } Sprays in ity of 50 00:00: each [place] mcg/actuati 00 nostril Medic al on nasal daily. Branch spray fluticasone 2020-09 Yes [id number] 1{spray Use 1-2 [facility] propionate 2-15 } Sprays in ity of 50 00:00: each [place] mcg/actuati 00 nostril Medic al on nasal daily. Branch spray fluticasone 2020-09 Yes [id number] 1{spray Use 1-2 [facility] propionate 2-15 } Sprays in ity of 50 00:00: each [place] mcg/actuati 00 nostril Medic al on nasal daily. Branch spray fluticasone 2020-09- No [id number] 1{spray Use 1-2 [facility] propionate 2-15 10-11 } Sprays in ity of 50 00:00: 00:00 each [place] mcg/actuati 00 :00 nostril Medic al on nasal daily. Branch spray fluticasone 2020-09- No [id number] 1{spray Use 1-2 [facility] propionate 2-15 10-11 } Sprays in ity of 50 00:00: 00:00 each [place] mcg/actuati 00 :00 nostril Medic al on nasal daily. Branch spray fluticasone 2020-09- No [id number] 1{spray Use 1-2 [facility] propionate 2-15 10-11 } Sprays in ity of 50 00:00: 00:00 each [place] mcg/actuati 00 :00 nostril Medic al on nasal daily. Branch spray fluticasone 2020-09- [id number] 1{spray Use 1-2 [facility] propionate 2-15 10-11 } Sprays in ity of 50 00:00: 00:00 each [place] mcg/actuati 00 :00 nostril Medic al on nasal daily. Branch spray peg-electro 2020-09- No Take as Un pippa lyte soln 11-03 directed ity o f (GOLYTELY) 00:00: 00:00 [place] [id number] 00 :00 [facility] .74 -5.86 Branch gram solution polyethylen 2020-09 Yes [id number] 17g Take 17 g Univers e glycol 1-19 by mouth ity of 3350 17 00:00: daily. Mix [place] gram/dose 00 with 8oz Medica l powder of Branch beverage. polyethylen 2020-09 Yes [id number] 17g Take 17 g [facility] e glycol 1-19 by mouth ity of 3350 17 00:00: daily. Mix [place] gram/dose 00 with 8oz Medica l powder of Branch beverage. polyethylen 2020-09 Yes [id number] 17g Take 17 g [facility] e glycol 1-19 by mouth ity of 3350 17 00:00: daily. Mix [place] gram/dose 00 with 8oz Medica l powder of Branch beverage. polyethylen 2020-09 Yes [id number] 17g Take 17 g [facility] e glycol 1-19 by mouth ity of 3350 17 00:00: daily. Mix [place] gram/dose 00 with 8oz Medica l powder of Branch beverage. polyethylen 2020-09 Yes [id number] 17g Take 17 g [facility] e glycol 1-19 by mouth ity of 3350 17 00:00: daily. Mix [place] gram/dose 00 with 8oz Medica l powder of Branch beverage. polyethylen 2020-09 Yes [id number] 17g Take 17 g [facility] e glycol 1-19 by mouth ity of 3350 17 00:00: daily. Mix [place] gram/dose 00 with 8oz Medica l powder of Branch beverage. polyethylen 2020-09 Yes [id number] 17g Take 17 g [facility] e glycol 1-19 by mouth ity of 3350 17 00:00: daily. Mix [place] gram/dose 00 with 8oz Medica l powder of Branch beverage. polyethylen 2020-09 Yes [id number] 17g Take 17 g [facility] e glycol 1-19 by mouth ity of 3350 17 00:00: daily. Mix [place] gram/dose 00 with 8oz Medica l powder of Branch beverage. polyethylen 2020-09 Yes [id number] 17g Take 17 g Univers e glycol 1-19 by mouth ity of 3350 17 00:00: daily. Mix [place] gram/dose 00 with 8oz Medica l powder of Branch beverage. polyethylen 2020-09 Yes [id number] 17g Take 17 g [facility] e glycol 1-19 by mouth ity of 3350 17 00:00: daily. Mix [place] gram/dose 00 with 8oz Medica l powder of Branch beverage. polyethylen 2020-09 Yes [id number] 17g Take 17 g [facility] e glycol 1-19 by mouth ity of 3350 17 00:00: daily. Mix [place] gram/dose 00 with 8oz Medica l powder of Branch beverage. polyethylen 2020-09 Yes [id number] 17g Take 17 g [facility] e glycol 1-19 by mouth ity of 3350 17 00:00: daily. Mix [place] gram/dose 00 with 8oz Medica l powder of Branch beverage. polyethylen 2020-09 Yes [id number] 17g Take 17 g [facility] e glycol 1-19 by mouth ity of 3350 17 00:00: daily. Mix [place] gram/dose 00 with 8oz Medica l powder of Branch beverage. polyethylen 2020-09 Yes [id number] 17g Take 17 g [facility] e glycol 1-19 by mouth ity of 3350 17 00:00: daily. Mix [place] gram/dose 00 with 8oz Medica l powder of Branch beverage. polyethylen 2020-09 Yes [id number] 17g Take 17 g [facility] e glycol 1-19 by mouth ity of 3350 17 00:00: daily. Mix [place] gram/dose 00 with 8oz Medica l powder of Branch beverage. polyethylen 2020-09 Yes [id number] 17g Take 17 g [facility] e glycol 1-19 by mouth ity of 3350 17 00:00: daily. Mix [place] gram/dose 00 with 8oz Medica l powder of Branch beverage. polyethylen 2020-09 Yes [id number] 17g Take 17 g [facility] e glycol 1-19 by mouth ity of 3350 17 00:00: daily. Mix [place] gram/dose 00 with 8oz Medica l powder of Branch beverage. polyethylen 2020-09 Yes [id number] 17g Take 17 g Univers e glycol 1-19 by mouth ity of 3350 17 00:00: daily. Mix [place] gram/dose 00 with 8oz Medica l powder of Branch beverage. polyethylen 2020-09 Yes [id number] 17g Take 17 g [facility] e glycol 1-19 by mouth ity of 3350 17 00:00: daily. Mix [place] gram/dose 00 with 8oz Medica l powder of Branch beverage. polyethylen 2020-09 Yes [id number] 17g Take 17 g Univers e glycol 1-19 by mouth ity of 3350 17 00:00: daily. Mix [place] gram/dose 00 with 8oz Medica l powder of Branch beverage. polyethylen 2020-09 Yes [id number] 17g Take 17 g Univers e glycol 1-19 by mouth ity of 3350 17 00:00: daily. Mix [place] gram/dose 00 with 8oz Medica l powder of Branch beverage. polyethylen 2020-09 Yes [id number] 17g Take 17 g [facility] e glycol 1-19 by mouth ity of 3350 17 00:00: daily. Mix [place] gram/dose 00 with 8oz Medica l powder of Branch beverage. polyethylen 2020-09 Yes [id number] 17g Take 17 g Univers e glycol 1-19 by mouth ity of 3350 17 00:00: daily. Mix [place] gram/dose 00 with 8oz Medica l powder of Branch beverage. polyethylen 2020-09 Yes [id number] 17g Take 17 g Univers e glycol 1-19 by mouth ity of 3350 17 00:00: daily. Mix [place] gram/dose 00 with 8oz Medica l powder of Branch beverage. polyethylen 2020-09 Yes [id number] 17g Take 17 g [facility] e glycol 1-19 by mouth ity of 3350 17 00:00: daily. Mix [place] gram/dose 00 with 8oz Medica l powder of Branch beverage. polyethylen 2020-09 Yes [id number] 17g Take 17 g Univers e glycol 1-19 by mouth ity of 3350 17 00:00: daily. Mix [place] gram/dose 00 with 8oz Medica l powder of Branch beverage. polyethylen 2020-09 Yes [id number] 17g Take 17 g Univers e glycol 1-19 by mouth ity of 3350 17 00:00: daily. Mix [place] gram/dose 00 with 8oz Medica l powder of Branch beverage. polyethylen 2020-09 Yes [id number] 17g Take 17 g [facility] e glycol 1-19 by mouth ity of 3350 17 00:00: daily. Mix [place] gram/dose 00 with 8oz Medica l powder of Branch beverage. polyethylen 2020-09 Yes [id number] 17g Take 17 g Univers e glycol 1-19 by mouth ity of 3350 17 00:00: daily. Mix [place] gram/dose 00 with 8oz Medica l powder of Branch beverage. polyethylen 2020-09 Yes [id number] 17g Take 17 g [facility] e glycol 1-19 by mouth ity of 3350 17 00:00: daily. Mix [place] gram/dose 00 with 8oz Medica l powder of Branch beverage. polyethylen 2020-09 Yes [id number] 17g Take 17 g [facility] e glycol 1-19 by mouth ity of 3350 17 00:00: daily. Mix [place] gram/dose 00 with 8oz Medica l powder of Branch beverage. polyethylen 2020-09 Yes [id number] 17g Take 17 g [facility] e glycol 1-19 by mouth ity of 3350 17 00:00: daily. Mix [place] gram/dose 00 with 8oz Medica l powder of Branch beverage. polyethylen 2020-09 Yes [id number] 17g Take 17 g Univers e glycol 1-19 by mouth ity of 3350 17 00:00: daily. Mix [place] gram/dose 00 with 8oz Medica l powder of Branch beverage. polyethylen 2020-09 Yes [id number] 17g Take 17 g [facility] e glycol 1-19 by mouth ity of 3350 17 00:00: daily. Mix [place] gram/dose 00 with 8oz Medica l powder of Branch beverage. polyethylen 2020-09 Yes [id number] 17g Take 17 g [facility] e glycol 1-19 by mouth ity of 3350 17 00:00: daily. Mix [place] gram/dose 00 with 8oz Medica l powder of Branch beverage. polyethylen 2020-09 Yes [id number] 17g Take 17 g [facility] e glycol 1-19 by mouth ity of 3350 17 00:00: daily. Mix [place] gram/dose 00 with 8oz Medica l powder of Branch beverage. polyethylen 2020-09 Yes [id number] 17g Take 17 g [facility] e glycol 1-19 by mouth ity of 3350 17 00:00: daily. Mix [place] gram/dose 00 with 8oz Medica l powder of Branch beverage. polyethylen 2020-09 Yes [id number] 17g Take 17 g Univers e glycol 1-19 by mouth ity of 3350 17 00:00: daily. Mix [place] gram/dose 00 with 8oz Medica l powder of Branch beverage. polyethylen 2020-09 Yes [id number] 17g Take 17 g [facility] e glycol 1-19 by mouth ity of 3350 17 00:00: daily. Mix [place] gram/dose 00 with 8oz Medica l powder of Branch beverage. polyethylen 2020-09 Yes [id number] 17g Take 17 g [facility] e glycol 1-19 by mouth ity of 3350 17 00:00: daily. Mix [place] gram/dose 00 with 8oz Medica l powder of Branch beverage. polyethylen 2020-09 Yes [id number] 17g Take 17 g [facility] e glycol 1-19 by mouth ity of 3350 17 00:00: daily. Mix [place] gram/dose 00 with 8oz Medica l powder of Branch beverage. polyethylen 2020-09 Yes [id number] 17g Take 17 g [facility] e glycol 1-19 by mouth ity of 3350 17 00:00: daily. Mix [place] gram/dose 00 with 8oz Medica l powder of Branch beverage. polyethylen 2020-09 Yes [id number] 17g Take 17 g Univers e glycol 1-19 by mouth ity of 3350 17 00:00: daily. Mix [place] gram/dose 00 with 8oz Medica l powder of Branch beverage. polyethylen 2020-09 Yes [id number] 17g Take 17 g [facility] e glycol 1-19 by mouth ity of 3350 17 00:00: daily. Mix [place] gram/dose 00 with 8oz Medica l powder of Branch beverage. polyethylen 2020-09 Yes [id number] 17g Take 17 g [facility] e glycol 1-19 by mouth ity of 3350 17 00:00: daily. Mix [place] gram/dose 00 with 8oz Medica l powder of Branch beverage. polyethylen 2020-09 Yes [id number] 17g Take 17 g [facility] e glycol 1-19 by mouth ity of 3350 17 00:00: daily. Mix [place] gram/dose 00 with 8oz Medica l powder of Branch beverage. polyethylen 2020-09 Yes [id number] 17g Take 17 g [facility] e glycol 1-19 by mouth ity of 3350 17 00:00: daily. Mix [place] gram/dose 00 with 8oz Medica l powder of Branch beverage. polyethylen 2020-09 Yes [id number] 17g Take 17 g [facility] e glycol 1-19 by mouth ity of 3350 17 00:00: daily. Mix [place] gram/dose 00 with 8oz Medica l powder of Branch beverage. polyethylen 2020-09 Yes [id number] 17g Take 17 g [facility] e glycol 1-19 by mouth ity of 3350 17 00:00: daily. Mix [place] gram/dose 00 with 8oz Medica l powder of Branch beverage. polyethylen 2020-09 Yes [id number] 17g Take 17 g [facility] e glycol 1-19 by mouth ity of 3350 17 00:00: daily. Mix [place] gram/dose 00 with 8oz Medica l powder of Branch beverage. polyethylen 2020-09 Yes [id number] 17g Take 17 g [facility] e glycol 1-19 by mouth ity of 3350 17 00:00: daily. Mix [place] gram/dose 00 with 8oz Medica l powder of Branch beverage. polyethylen 2020-09 Yes [id number] 17g Take 17 g [facility] e glycol 1-19 by mouth ity of 3350 17 00:00: daily. Mix [place] gram/dose 00 with 8oz Medica l powder of Branch beverage. polyethylen 2020-09 Yes [id number] 17g Take 17 g [facility] e glycol 1-19 by mouth ity of 3350 17 00:00: daily. Mix [place] gram/dose 00 with 8oz Medica l powder of Branch beverage. polyethylen 2020-09 Yes [id number] 17g Take 17 g [facility] e glycol 1-19 by mouth ity of 3350 17 00:00: daily. Mix [place] gram/dose 00 with 8oz Medica l powder of Branch beverage. polyethylen 2020-09 Yes [id number] 17g Take 17 g [facility] e glycol 1-19 by mouth ity of 3350 17 00:00: daily. Mix [place] gram/dose 00 with 8oz Medica l powder of Branch beverage. polyethylen 2020-09 Yes [id number] 17g Take 17 g [facility] e glycol 1-19 by mouth ity of 3350 17 00:00: daily. Mix [place] gram/dose 00 with 8oz Medica l powder of Branch beverage. polyethylen 2020-09 Yes [id number] 17g Take 17 g [facility] e glycol 1-19 by mouth ity of 3350 17 00:00: daily. Mix [place] gram/dose 00 with 8oz Medica l powder of Branch beverage. polyethylen 2020-09 Yes [id number] 17g Take 17 g [facility] e glycol 1-19 by mouth ity of 3350 17 00:00: daily. Mix [place] gram/dose 00 with 8oz Medica l powder of Branch beverage. polyethylen 2020-09 Yes [id number] 17g Take 17 g [facility] e glycol 1-19 by mouth ity of 3350 17 00:00: daily. Mix [place] gram/dose 00 with 8oz Medica l powder of Branch beverage. polyethylen 2020-09 Yes [id number] 17g Take 17 g [facility] e glycol 1-19 by mouth ity of 3350 17 00:00: daily. Mix [place] gram/dose 00 with 8oz Medica l powder of Branch beverage. polyethylen 2020-09 Yes [id number] 17g Take 17 g [facility] e glycol 1-19 by mouth ity of 3350 17 00:00: daily. Mix [place] gram/dose 00 with 8oz Medica l powder of Branch beverage. polyethylen 2020-09 Yes [id number] 17g Take 17 g [facility] e glycol 1-19 by mouth ity of 3350 17 00:00: daily. Mix [place] gram/dose 00 with 8oz Medica l powder of Branch beverage. polyethylen 2020-09 Yes [id number] 17g Take 17 g [facility] e glycol 1-19 by mouth ity of 3350 17 00:00: daily. Mix [place] gram/dose 00 with 8oz Medica l powder of Branch beverage. polyethylen 2020-09 Yes [id number] 17g Take 17 g [facility] e glycol 1-19 by mouth ity of 3350 17 00:00: daily. Mix [place] gram/dose 00 with 8oz Medica l powder of Branch beverage. polyethylen 2020-09 Yes [id number] 17g Take 17 g [facility] e glycol 1-19 by mouth ity of 3350 17 00:00: daily. Mix [place] gram/dose 00 with 8oz Medica l powder of Branch beverage. polyethylen 2020-09 Yes [id number] 17g Take 17 g [facility] e glycol 1-19 by mouth ity of 3350 17 00:00: daily. Mix [place] gram/dose 00 with 8oz Medica l powder of Branch beverage. polyethylen 2020-09 Yes [id number] 17g Take 17 g [facility] e glycol 1-19 by mouth ity of 3350 17 00:00: daily. Mix [place] gram/dose 00 with 8oz Medica l powder of Branch beverage. polyethylen 2020-09 Yes [id number] 17g Take 17 g [facility] e glycol 1-19 by mouth ity of 3350 17 00:00: daily. Mix [place] gram/dose 00 with 8oz Medica l powder of Branch beverage. polyethylen 2020-09 Yes [id number] 17g Take 17 g [facility] e glycol 1-19 by mouth ity of 3350 17 00:00: daily. Mix [place] gram/dose 00 with 8oz Medica l powder of Branch beverage. polyethylen 2020-09 Yes [id number] 17g Take 17 g [facility] e glycol 1-19 by mouth ity of 3350 17 00:00: daily. Mix [place] gram/dose 00 with 8oz Medica l powder of Branch beverage. polyethylen 2020-09 Yes [id number] 17g Take 17 g [facility] e glycol 1-19 by mouth ity of 3350 17 00:00: daily. Mix [place] gram/dose 00 with 8oz Medica l powder of Branch beverage. polyethylen 2020-09 Yes [id number] 17g Take 17 g [facility] e glycol 1-19 by mouth ity of 3350 17 00:00: daily. Mix [place] gram/dose 00 with 8oz Medica l powder of Branch beverage. polyethylen 2020-09 Yes [id number] 17g Take 17 g [facility] e glycol 1-19 by mouth ity of 3350 17 00:00: daily. Mix [place] gram/dose 00 with 8oz Medica l powder of Branch beverage. polyethylen 2020-09 Yes [id number] 17g Take 17 g [facility] e glycol 1-19 by mouth ity of 3350 17 00:00: daily. Mix [place] gram/dose 00 with 8oz Medica l powder of Branch beverage. polyethylen 2020-09 Yes [id number] 17g Take 17 g [facility] e glycol 1-19 by mouth ity of 3350 17 00:00: daily. Mix [place] gram/dose 00 with 8oz Medica l powder of Branch beverage. polyethylen 2020-09 Yes [id number] 17g Take 17 g [facility] e glycol 1-19 by mouth ity of 3350 17 00:00: daily. Mix [place] gram/dose 00 with 8oz Medica l powder of Branch beverage. polyethylen 2020-09 Yes [id number] 17g Take 17 g [facility] e glycol 1-19 by mouth ity of 3350 17 00:00: daily. [place] gram/dose 00 with 8oz [facility] powder of [facility] beverage. polyethylen 2020-09 Yes [id number] 17g Take 17 g [facility] glycol 1-19 by mouth ity of 3350 17 00:00: daily. [place] gram/dose 00 with 8oz [facility] powder of [place] beverage. polyethylen 2020-09 Yes [id number] 17g Take 17 g [facility] glycol 1-19 by mouth ity of 3350 17 00:00: daily. [place] gram/dose 00 with 8oz [facility] powder of [place] beverage. polyethylen 2020-09 Yes [id number] 17g Take 17 g [facility] glycol 1-19 by mouth ity of 3350 17 00:00: daily. [place] gram/dose 00 with 8oz [facility] powder of [place] beverage. polyethylen 2020-09 Yes [id number] 17g Take 17 g [facility] glycol 1-19 by mouth ity of 3350 17 00:00: daily. [place] gram/dose 00 with 8oz [facility] powder of [place] beverage. polyethylen 2020-09 Yes [id number] 17g Take 17 g [facility] glycol 1-19 by mouth ity of 3350 17 00:00: daily. [place] gram/dose 00 with 8oz [facility] powder of [place] beverage. polyethylen 2020-09 Yes [id number] 17g Take 17 g [facility] glycol 1-19 by mouth ity of 3350 17 00:00: daily. [place] gram/dose 00 with 8oz [facility] powder of [place] beverage. polyethylen 2020-09 Yes [id number] 17g Take 17 g [facility] glycol 1-19 by mouth ity of 3350 17 00:00: daily. [place] gram/dose 00 with 8oz [facility] powder of [place] beverage. polyethylen 2020-09 Yes [id number] 17g Take 17 g [facility] glycol 1-19 by mouth ity of 3350 17 00:00: daily. [place] gram/dose 00 with 8oz [facility] powder of [place] beverage. polyethylen 2020-09 Yes [id number] 17g Take 17 g [facility] glycol 1-19 by mouth ity of 3350 17 00:00: daily. [place] gram/dose 00 with 8oz [facility] powder of [place] beverage. polyethylen 2020-09 Yes [id number] 17g Take 17 g [facility] glycol 1-19 by mouth ity of 3350 17 00:00: daily. [place] gram/dose 00 with 8oz [facility] powder of [place] beverage. polyethylen 2020-09 Yes [id number] 17g Take 17 g [facility] glycol 1-19 by mouth ity of 3350 17 00:00: daily. [place] gram/dose 00 with 8oz [facility] powder of [place] beverage. polyethylen 2020-09 Yes [id number] 17g Take 17 g [facility] glycol 1-19 by mouth ity of 3350 17 00:00: daily. [place] gram/dose 00 with 8oz [facility] powder of [place] beverage. polyethylen 2020-09 Yes [id number] 17g Take 17 g [facility] glycol 1-19 by mouth ity of 3350 17 00:00: daily. [place] gram/dose 00 with 8oz [facility] powder of [place] beverage. polyethylen 2020-09 Yes [id number] 17g Take 17 g [facility] glycol 1-19 by mouth ity of 3350 17 00:00: daily. [place] gram/dose 00 with 8oz [facility] powder of [place] beverage. polyethylen 2020-09 Yes [id number] 17g Take 17 g [facility] glycol 1-19 by mouth ity of 3350 17 00:00: daily. [place] gram/dose 00 with 8oz [facility] powder of [place] beverage. polyethylen 2020-09 Yes [id number] 17g Take 17 g [facility] glycol 1-19 by mouth ity of 3350 17 00:00: daily. [place] gram/dose 00 with 8oz [facility] powder of [place] beverage. polyethylen 2020-09 Yes [id number] 17g Take 17 g [facility] glycol 1-19 by mouth ity of 3350 17 00:00: daily. [place] gram/dose 00 with 8oz [facility] powder of [place] beverage. polyethylen 2020-09 Yes [id number] 17g Take 17 g [facility] glycol 1-19 by mouth ity of 3350 17 00:00: daily. [place] gram/dose 00 with 8oz [facility] powder of [place] beverage. polyethylen 2020-09 Yes [id number] 17g Take 17 g [facility] glycol 1-19 by mouth ity of 3350 17 00:00: daily. [place] gram/dose 00 with 8oz [facility] powder of [place] beverage. polyethylen 2020-09 Yes [id number] 17g Take 17 g [facility] glycol 1-19 by mouth ity of 3350 17 00:00: daily. [place] gram/dose 00 with 8oz [facility] powder of [place] beverage. polyethylen 2020-09 Yes [id number] 17g Take 17 g [facility] glycol 1-19 by mouth ity of 3350 17 00:00: daily. [place] gram/dose 00 with 8oz [facility] powder of [place] beverage. polyethylen 2020-09 Yes [id number] 17g Take 17 g [facility] glycol 1-19 by mouth ity of 3350 17 00:00: daily. [place] gram/dose 00 with 8oz [facility] powder of [place] beverage. polyethylen 2020-09- No [id number] 17g Take 17 g [facility] glycol 1-19 08-22 by mouth ity of 3350 17 00:00: 00:00 daily. Mix [place] gram/dose 00 :00 with 8oz [facility] powder of [place] beverage. polyethylen 2020-09- No [id number] 17g Take 17 g [facility] glycol 1-19 08-22 by mouth ity of 3350 17 00:00: 00:00 daily. Mix [place] gram/dose 00 :00 with 8oz [facility] powder of [facility] beverage. polyethylen 2020-09- No [id number] 17g Take 17 g [facility] glycol 1-19 08-22 by mouth ity of 3350 17 00:00: 00:00 daily. Mix [place] gram/dose 00 :00 with 8oz [facility] powder of [facility] beverage. polyethylen 2020-09- No [id number] 17g Take 17 g [facility] glycol 1-19 08-22 by mouth ity of 3350 17 00:00: 00:00 daily. Mix [place] gram/dose 00 :00 with 8oz [facility] powder of [facility] beverage. nystatin 2020-09 Yes [id number] Apply to [facility] 100,000 1-10 area(s) 2 ity of unit/gram 00:00: (two) [place] cream 00 times Medical daily. Branch nystatin 2020- Yes [id number] Apply to [facility] 100,000 1-10 area(s) 2 ity of unit/gram 00:00: (two) [place] cream 00 times Medical daily. Branch nystatin 2020- Yes [id number] Apply to [facility] 100,000 1-10 area(s) 2 ity of unit/gram 00:00: (two) [place] cream 00 times Medical daily. Branch nystatin 2020- Yes [id number] Apply to [facility] 100,000 1-10 area(s) 2 ity of unit/gram 00:00: (two) [place] cream 00 times Medical daily. Branch nystatin 2020- Yes [id number] Apply to [facility] 100,000 1-10 area(s) 2 ity of unit/gram 00:00: (two) [place] cream 00 times Medical daily. Branch nystatin 2020- Yes [id number] Apply to [facility] 100,000 1-10 area(s) 2 ity of unit/gram 00:00: (two) [place] cream 00 times Medical daily. Branch nystatin 2020- Yes [id number] Apply to [facility] 100,000 1-10 area(s) 2 ity of unit/gram 00:00: (two) [place] cream 00 times Medical daily. Branch nystatin 2020- Yes [id number] Apply to [facility] 100,000 1-10 area(s) 2 ity of unit/gram 00:00: (two) [place] cream 00 times Medical daily. Branch nystatin 2020- Yes [id number] Apply to [facility] 100,000 1-10 area(s) 2 ity of unit/gram 00:00: (two) [place] cream 00 times Medical daily. Branch nystatin 2020-1 Yes [id number] Apply to [facility] 100,000 1-10 area(s) 2 ity of unit/gram 00:00: (two) [place] cream 00 times Medical daily. Branch nystatin 2020-1 Yes [id number] Apply to [facility] 100,000 1-10 area(s) 2 ity of unit/gram 00:00: (two) [place] cream 00 times Medical daily. Branch nystatin 2020- Yes [id number] Apply to [facility] 100,000 1-10 area(s) 2 ity of unit/gram 00:00: (two) [place] cream 00 times Medical daily. Branch nystatin 2020- Yes [id number] Apply to [facility] 100,000 1-10 area(s) 2 ity of unit/gram 00:00: (two) [place] cream 00 times Medical daily. Branch nystatin 2020- Yes [id number] Apply to [facility] 100,000 1-10 area(s) 2 ity of unit/gram 00:00: (two) [place] cream 00 times Medical daily. Branch nystatin 2020-09 Yes [id number] Apply to [facility] 100,000 1-10 area(s) 2 ity of unit/gram 00:00: (two) [place] cream 00 times Medical daily. Branch nystatin 2020- Yes [id number] Apply to [facility] 100,000 1-10 area(s) 2 ity of unit/gram 00:00: (two) [place] cream 00 times Medical daily. Branch nystatin 2020- Yes [id number] Apply to [facility] 100,000 1-10 area(s) 2 ity of unit/gram 00:00: (two) [place] cream 00 times Medical daily. Branch nystatin 2020-09 Yes [id number] Apply to [facility] 100,000 1-10 area(s) 2 ity of unit/gram 00:00: (two) [place] cream 00 times Medical daily. Branch nystatin 2020-09- No [id number] Apply to [facility] 100,000 1-10 10-11 area(s) 2 ity of unit/gram 00:00: 00:00 (two) [place] cream 00 :00 times Medical daily. Branch nystatin 2020-09- No [id number] Apply to [facility] 100,000 1-10 10-11 area(s) 2 ity of unit/gram 00:00: 00:00 (two) [place] cream 00 :00 times Medical daily. Branch nystatin 2020-2021- No [id number] Apply to [facility] 100,000 1-10 10-11 area(s) 2 ity of unit/gram 00:00: 00:00 (two) [place] cream 00 :00 times Medical daily. Branch nystatin 2020-2021- No [id number] Apply to [facility] 100,000 1-10 10-11 area(s) 2 ity of unit/gram 00:00: 00:00 (two) [place] cream 00 :00 times Medical daily. Branch levothyroxi 2020-09- No [id number] 150ug Take 1 [facility] ne 150 mcg 10-04 tablet by ity of tablet 00:00: 00:00 mouth [place] 00 :00 every Medical morning. Branch STOP THE 175MCG DOSE. furosemide 2020-09- No 40mg Take 40 mg [facility] 40 mg 09-28 by mouth ity of tablet 00:00: 00:00 every [place] 00 :00 morning Medical and Branch evening. KCL 10 mEq 2020-09- No 20meq Take 2 [facility] vers tablet 09-28 tablets by ity of 00:00: 00:00 mouth [place] 00 :00 daily. Medical [facility] metoprolol 2020-09- No [id number] 12.5mg Take 0.5 [facility] tartrate 25 09-28 05 tablets by i ty of mg tablet 00:00: 00:00 mouth [place] 00 :00 (two) [facility] times [facility] daily. TOUCH Yes TEST FOUR [facility] ers DELICA PLUS 9-07 TIMES ity of LANCET 30 00:00: DAILY [place] gauge Misc 00 DIRECTED [facility] al [facility] ONETOUCH Yes TEST FOUR [facility] DELICA PLUS 9-07 TIMES ity of LANCET 30 00:00: DAILY [place] gauge Misc 00 DIRECTED [facility] ONETOUCH Yes TEST FOUR [facility] DELICA PLUS 9-07 TIMES ity of LANCET 30 00:00: DAILY [place] gauge Misc 00 DIRECTED [facility] ONETOUCH Yes TEST FOUR [facility] DELICA PLUS 9-07 TIMES ity of LANCET 30 00:00: DAILY [place] gauge Misc 00 DIRECTED [facility] ONETOUCH Yes TEST FOUR [facility] DELICA PLUS 9-07 TIMES ity of LANCET 30 00:00: DAILY [place] gauge Misc 00 DIRECTED [facility] ONETOUCH Yes TEST FOUR [facility] DELICA PLUS 9-07 TIMES ity of LANCET 30 00:00: DAILY [place] gauge Misc 00 DIRECTED [facility] ONETOUCH 0 Yes TEST FOUR [facility] DELICA PLUS 9-07 TIMES ity of LANCET 30 00:00: DAILY [place] gauge Misc 00 DIRECTED [facility] ONETOUCH 0 Yes TEST FOUR [facility] DELICA PLUS 9-07 TIMES ity of LANCET 30 00:00: DAILY [place] gauge Misc 00 DIRECTED [facility] ONETOUCH 0 Yes TEST FOUR [facility] DELICA PLUS 9-07 TIMES ity of LANCET 30 00:00: DAILY [place] gauge Misc 00 DIRECTED [facility] ONETOUCH 0 Yes TEST FOUR [facility] DELICA PLUS 9-07 TIMES ity of LANCET 30 00:00: DAILY [place] gauge Misc 00 DIRECTED [facility] ONETOUCH Yes TEST FOUR [facility] DELICA PLUS 9-07 TIMES ity of LANCET 30 00:00: DAILY [place] gauge Misc 00 DIRECTED [facility] ONETOUCH 2020-0 Yes TEST FOUR [facility] DELICA PLUS 9-07 TIMES ity of LANCET 30 00:00: DAILY [place] gauge Misc 00 DIRECTED [facility] ONETOUCH Yes TEST FOUR [facility] DELICA PLUS 9-07 TIMES ity of LANCET 30 00:00: DAILY [place] gauge Misc 00 DIRECTED [facility] ONETOUCH Yes TEST FOUR [facility] DELICA PLUS 9-07 TIMES ity of LANCET 30 00:00: DAILY [place] gauge Misc 00 DIRECTED [facility] ONETOUCH 2020-0 Yes TEST FOUR [facility] DELICA PLUS 9-07 TIMES ity of LANCET 30 00:00: DAILY [place] gauge Misc 00 DIRECTED [facility] ONETOUCH 0 Yes TEST FOUR [facility] DELICA PLUS 9-07 TIMES ity of LANCET 30 00:00: DAILY [place] gauge Misc 00 DIRECTED [facility] ONETOUCH 0 Yes TEST FOUR [facility] DELICA PLUS 9-07 TIMES ity of LANCET 30 00:00: DAILY [place] gauge Misc 00 DIRECTED [facility] ONETOUCH 0 Yes TEST FOUR [facility] DELICA PLUS 9-07 TIMES ity of LANCET 30 00:00: DAILY [place] gauge Misc 00 DIRECTED [facility] ONETOUCH 0 Yes TEST FOUR [facility] DELICA PLUS 9-07 TIMES ity of LANCET 30 00:00: DAILY [place] gauge Misc 00 DIRECTED [facility] ONETOUCH 2020-0 Yes TEST FOUR [facility] DELICA PLUS 9-07 TIMES ity of LANCET 30 00:00: DAILY [place] gauge Misc 00 DIRECTED [facility] ONETOUCH 2020-0 Yes TEST FOUR [facility] DELICA PLUS 9-07 TIMES ity of LANCET 30 00:00: DAILY [place] gauge Misc 00 DIRECTED [facility] ONETOUCH 0 Yes TEST FOUR [facility] DELICA PLUS 9-07 TIMES ity of LANCET 30 00:00: DAILY [place] gauge Misc 00 DIRECTED [facility] ONETOUCH 2020-0 Yes TEST FOUR [facility] DELICA PLUS 9-07 TIMES ity of LANCET 30 00:00: DAILY [place] gauge Misc 00 DIRECTED [facility] ONETOUCH 2020-0 Yes TEST FOUR [facility] DELICA PLUS 9-07 TIMES ity of LANCET 30 00:00: DAILY [place] gauge Misc 00 DIRECTED [facility] ONETOUCH 0 Yes TEST FOUR [facility] DELICA PLUS 9-07 TIMES ity of LANCET 30 00:00: DAILY [place] gauge Misc 00 DIRECTED [facility] ONETOUCH 0 Yes TEST FOUR [facility] DELICA PLUS 9-07 TIMES ity of LANCET 30 00:00: DAILY [place] gauge Misc 00 DIRECTED [facility] ONETOUCH 2020-0 Yes TEST FOUR [facility] DELICA PLUS 9-07 TIMES ity of LANCET 30 00:00: DAILY [place] gauge Misc 00 DIRECTED [facility] ONETOUCH 2020-0 Yes TEST FOUR [facility] DELICA PLUS 9-07 TIMES ity of LANCET 30 00:00: DAILY [place] gauge Misc 00 DIRECTED [facility] ONETOUCH 2020-0 Yes TEST FOUR [facility] DELICA PLUS 9-07 TIMES ity of LANCET 30 00:00: DAILY [place] gauge Misc 00 DIRECTED [facility] ONETOUCH 2020-0 Yes TEST FOUR [facility] DELICA PLUS 9-07 TIMES ity of LANCET 30 00:00: DAILY [place] gauge Misc 00 DIRECTED [facility] ONETOUCH Yes TEST FOUR [facility] DELICA PLUS 9-07 TIMES ity of LANCET 30 00:00: DAILY [place] gauge Misc 00 DIRECTED [facility] ONETOUCH Yes TEST FOUR [facility] DELICA PLUS 9-07 TIMES ity of LANCET 30 00:00: DAILY [place] gauge Misc 00 DIRECTED [facility] ONETOUCH Yes TEST FOUR [facility] DELICA PLUS 9-07 TIMES ity of LANCET 30 00:00: DAILY [place] gauge Misc 00 DIRECTED [facility] ONETOUCH Yes TEST FOUR [facility] DELICA PLUS 9-07 TIMES ity of LANCET 30 00:00: DAILY [place] gauge Misc 00 DIRECTED [facility] ONETOUCH Yes TEST FOUR [facility] DELICA PLUS 9-07 TIMES ity of LANCET 30 00:00: DAILY [place] gauge Misc 00 DIRECTED [facility] ONETOUCH Yes TEST FOUR [facility] DELICA PLUS 9-07 TIMES ity of LANCET 30 00:00: DAILY [place] gauge Misc 00 DIRECTED [facility] ONETOUCH Yes TEST FOUR [facility] DELICA PLUS 9-07 TIMES ity of LANCET 30 00:00: DAILY [place] gauge Misc 00 DIRECTED [facility] ONETOUCH Yes TEST FOUR [facility] DELICA PLUS 9-07 TIMES ity of LANCET 30 00:00: DAILY [place] gauge Misc 00 DIRECTED [facility] ONETOUCH 0 Yes TEST FOUR [facility] DELICA PLUS 9-07 TIMES ity of LANCET 30 00:00: DAILY [place] gauge Misc 00 DIRECTED [facility] ONETOUCH Yes TEST FOUR [facility] DELICA PLUS 9-07 TIMES ity of LANCET 30 00:00: DAILY [place] gauge Misc 00 DIRECTED [facility] ONETOUCH Yes TEST FOUR [facility] DELICA PLUS 9-07 TIMES ity of LANCET 30 00:00: DAILY [place] gauge Misc 00 DIRECTED [facility] ONETOUCH 0 Yes TEST FOUR [facility] DELICA PLUS 9-07 TIMES ity of LANCET 30 00:00: DAILY [place] gauge Misc 00 DIRECTED [facility] ONETOUCH 2020-0 Yes TEST FOUR [facility] DELICA PLUS 9-07 TIMES ity of LANCET 30 00:00: DAILY [place] gauge Misc 00 DIRECTED [facility] ONETOUCH 2020-0 Yes TEST FOUR [facility] DELICA PLUS 9-07 TIMES ity of LANCET 30 00:00: DAILY [place] gauge Misc 00 DIRECTED [facility] ONETOUCH 0 Yes TEST FOUR [facility] DELICA PLUS 9-07 TIMES ity of LANCET 30 00:00: DAILY [place] gauge Misc 00 DIRECTED [facility] ONETOUCH 0 Yes TEST FOUR [facility] DELICA PLUS 9-07 TIMES ity of LANCET 30 00:00: DAILY [place] gauge Misc 00 DIRECTED [facility] ONETOUCH 2020-0 Yes TEST FOUR [facility] DELICA PLUS 9-07 TIMES ity of LANCET 30 00:00: DAILY [place] gauge Misc 00 DIRECTED [facility] ONETOUCH 0 Yes TEST FOUR [facility] DELICA PLUS 9-07 TIMES ity of LANCET 30 00:00: DAILY [place] gauge Misc 00 DIRECTED [facility] ONETOUCH 0 Yes TEST FOUR [facility] DELICA PLUS 9-07 TIMES ity of LANCET 30 00:00: DAILY [place] gauge Misc 00 DIRECTED [facility] ONETOUCH 0 Yes TEST FOUR [facility] DELICA PLUS 9-07 TIMES ity of LANCET 30 00:00: DAILY [place] gauge Misc 00 DIRECTED [facility] ONETOUCH 2020-0 Yes TEST FOUR [facility] DELICA PLUS 9-07 TIMES ity of LANCET 30 00:00: DAILY [place] gauge Misc 00 DIRECTED [facility] ONETOUCH 0 Yes TEST FOUR [facility] DELICA PLUS 9-07 TIMES ity of LANCET 30 00:00: DAILY [place] gauge Misc 00 DIRECTED [facility] ONETOUCH 2020-0 Yes TEST FOUR [facility] DELICA PLUS 9-07 TIMES ity of LANCET 30 00:00: DAILY [place] gauge Misc 00 DIRECTED [facility] ONETOUCH 2020-0 Yes TEST FOUR [facility] DELICA PLUS 9-07 TIMES ity of LANCET 30 00:00: DAILY [place] gauge Misc 00 DIRECTED [facility] ONETOUCH Yes TEST FOUR [facility] DELICA PLUS 9-07 TIMES ity of LANCET 30 00:00: DAILY [place] gauge Misc 00 DIRECTED [facility] ONETOUCH 0 Yes TEST FOUR [facility] DELICA PLUS 9-07 TIMES ity of LANCET 30 00:00: DAILY [place] gauge Misc 00 DIRECTED [facility] ONETOUCH Yes TEST FOUR [facility] DELICA PLUS 9-07 TIMES ity of LANCET 30 00:00: DAILY [place] gauge Misc 00 DIRECTED [facility] ONETOUCH Yes TEST FOUR [facility] DELICA PLUS 9-07 TIMES ity of LANCET 30 00:00: DAILY [place] gauge Misc 00 DIRECTED [facility] ONETOUCH Yes TEST FOUR [facility] DELICA PLUS 9-07 TIMES ity of LANCET 30 00:00: DAILY [place] gauge Misc 00 DIRECTED [facility] ONETOUCH Yes TEST FOUR [facility] DELICA PLUS 9-07 TIMES ity of LANCET 30 00:00: DAILY [place] gauge Misc 00 DIRECTED [facility] ONETOUCH Yes TEST FOUR [facility] DELICA PLUS 9-07 TIMES ity of LANCET 30 00:00: DAILY [place] gauge Misc 00 DIRECTED [facility] ONETOUCH Yes TEST FOUR [facility] DELICA PLUS 9-07 TIMES ity of LANCET 30 00:00: DAILY [place] gauge Misc 00 DIRECTED [facility] ONETOUCH 2020-0 Yes TEST FOUR [facility] DELICA PLUS 9-07 TIMES ity of LANCET 30 00:00: DAILY [place] gauge Misc 00 DIRECTED [facility] ONETOUCH Yes TEST FOUR [facility] DELICA PLUS 9-07 TIMES ity of LANCET 30 00:00: DAILY [place] gauge Misc 00 DIRECTED [facility] ONETOUCH 0 Yes TEST FOUR [facility] DELICA PLUS 9-07 TIMES ity of LANCET 30 00:00: DAILY [place] gauge Misc 00 DIRECTED [facility] ONETOUCH 0 Yes TEST FOUR [facility] DELICA PLUS 9-07 TIMES ity of LANCET 30 00:00: DAILY [place] gauge Misc 00 DIRECTED [facility] ONETOUCH 2020-0 Yes TEST FOUR [facility] DELICA PLUS 9-07 TIMES ity of LANCET 30 00:00: DAILY [place] gauge Misc 00 DIRECTED [facility] ONETOUCH 2020-0 Yes TEST FOUR [facility] DELICA PLUS 9-07 TIMES ity of LANCET 30 00:00: DAILY [place] gauge Misc 00 DIRECTED [facility] ONETOUCH 0 Yes TEST FOUR [facility] DELICA PLUS 9-07 TIMES ity of LANCET 30 00:00: DAILY [place] gauge Misc 00 DIRECTED [facility] ONETOUCH 0 Yes TEST FOUR [facility] DELICA PLUS 9-07 TIMES ity of LANCET 30 00:00: DAILY [place] gauge Misc 00 DIRECTED [facility] ONETOUCH 2020-0 Yes TEST FOUR [facility] DELICA PLUS 9-07 TIMES ity of LANCET 30 00:00: DAILY [place] gauge Misc 00 DIRECTED [facility] ONETOUCH 0 Yes TEST FOUR [facility] DELICA PLUS 9-07 TIMES ity of LANCET 30 00:00: DAILY [place] gauge Misc 00 DIRECTED [facility] ONETOUCH 0 Yes TEST FOUR [facility] DELICA PLUS 9-07 TIMES ity of LANCET 30 00:00: DAILY [place] gauge Misc 00 DIRECTED [facility] ONETOUCH 0 Yes TEST FOUR [facility] DELICA PLUS 9-07 TIMES ity of LANCET 30 00:00: DAILY [place] gauge Misc 00 DIRECTED [facility] ONETOUCH 2020-0 Yes TEST FOUR [facility] DELICA PLUS 9-07 TIMES ity of LANCET 30 00:00: DAILY [place] gauge Misc 00 DIRECTED [facility] al [facility] ONETOUCH 0 Yes TEST FOUR [facility] DELICA PLUS 9-07 TIMES ity of LANCET 30 00:00: DAILY [place] gauge Misc 00 DIRECTED [facility] ONETOUCH 0 Yes TEST FOUR [facility] DELICA PLUS 9-07 TIMES ity of LANCET 30 00:00: DAILY [place] gauge Misc 00 DIRECTED [facility] ONETOUCH 0 Yes TEST FOUR [facility] DELICA PLUS 9-07 TIMES ity of LANCET 30 00:00: DAILY [place] gauge Misc 00 DIRECTED [facility] ONETOUCH 2020-0 Yes TEST FOUR [facility] DELICA PLUS 9-07 TIMES ity of LANCET 30 00:00: DAILY [place] gauge Misc 00 DIRECTED [facility] ONETOUCH 0 Yes TEST FOUR [facility] DELICA PLUS 9-07 TIMES ity of LANCET 30 00:00: DAILY [place] gauge Misc 00 DIRECTED [facility] ONETOUCH Yes TEST FOUR [facility] DELICA PLUS 9-07 TIMES ity of LANCET 30 00:00: DAILY [place] gauge Misc 00 DIRECTED [facility] ONETOUCH Yes TEST FOUR [facility] DELICA PLUS 9-07 TIMES ity of LANCET 30 00:00: DAILY [place] gauge Misc 00 DIRECTED [facility] ONETOUCH Yes TEST FOUR [facility] DELICA PLUS 9-07 TIMES ity of LANCET 30 00:00: DAILY [place] gauge Misc 00 DIRECTED [facility] ONETOUCH Yes TEST FOUR [facility] DELICA PLUS 9-07 TIMES ity of LANCET 30 00:00: DAILY [place] gauge Misc 00 DIRECTED [facility] ONETOUCH Yes TEST FOUR [facility] DELICA PLUS 9-07 TIMES ity of LANCET 30 00:00: DAILY [place] gauge Misc 00 DIRECTED Medic [facility] ONETOUCH Yes TEST FOUR [facility] DELICA PLUS 9-07 TIMES ity of LANCET 30 00:00: DAILY [place] gauge Misc 00 DIRECTED [facility] ONETOUCH 0 Yes TEST FOUR [facility] DELICA PLUS 9-07 TIMES ity of LANCET 30 00:00: DAILY [place] gauge Misc 00 DIRECTED [facility] ONETOUCH 0 Yes TEST FOUR [facility] DELICA PLUS 9-07 TIMES ity of LANCET 30 00:00: DAILY [place] gauge Misc 00 DIRECTED [facility] ONETOUCH Yes TEST FOUR [facility] DELICA PLUS 9-07 TIMES ity of LANCET 30 00:00: DAILY [place] gauge Misc 00 DIRECTED [facility] ONETOUCH 0 Yes TEST FOUR [facility] DELICA PLUS 9-07 TIMES ity of LANCET 30 00:00: DAILY [place] gauge Misc 00 DIRECTED [facility] ONETOUCH 2020-0 Yes TEST FOUR [facility] DELICA PLUS 9-07 TIMES ity of LANCET 30 00:00: DAILY [place] gauge Misc 00 DIRECTED [facility] ONETOUCH 2020-0 Yes TEST FOUR [facility] DELICA PLUS 9-07 TIMES ity of LANCET 30 00:00: DAILY [place] gauge Misc 00 DIRECTED [facility] ONETOUCH 0 Yes TEST FOUR [facility] DELICA PLUS 9-07 TIMES ity of LANCET 30 00:00: DAILY [place] gauge Misc 00 DIRECTED [facility] ONETOUCH 0 Yes TEST FOUR [facility] DELICA PLUS 9-07 TIMES ity of LANCET 30 00:00: DAILY [place] gauge Misc 00 DIRECTED [facility] ONETOUCH 2020-0 Yes TEST FOUR [facility] DELICA PLUS 9-07 TIMES ity of LANCET 30 00:00: DAILY [place] gauge Misc 00 DIRECTED [facility] ONETOUCH 0 Yes TEST FOUR [facility] DELICA PLUS 9-07 TIMES ity of LANCET 30 00:00: DAILY [place] gauge Misc 00 DIRECTED [facility] ONETOUCH 0 Yes TEST FOUR [facility] DELICA PLUS 9-07 TIMES ity of LANCET 30 00:00: DAILY [place] gauge Misc 00 DIRECTED [facility] ONETOUCH 0 Yes TEST FOUR [facility] DELICA PLUS 9-07 TIMES ity of LANCET 30 00:00: DAILY [place] gauge Misc 00 DIRECTED [facility] ONETOUCH 2020-0 Yes TEST FOUR [facility] DELICA PLUS 9-07 TIMES ity of LANCET 30 00:00: DAILY [place] gauge Misc 00 DIRECTED [facility] ONETOUCH 2020-0 Yes TEST FOUR [facility] DELICA PLUS 9-07 TIMES ity of LANCET 30 00:00: DAILY [place] gauge Misc 00 DIRECTED [facility] ONETOUCH 0 Yes TEST FOUR [facility] DELICA PLUS 9-07 TIMES ity of LANCET 30 00:00: DAILY [place] gauge Misc 00 DIRECTED [facility] ONETOUCH 2020-0 Yes TEST FOUR [facility] DELICA PLUS 9-07 TIMES ity of LANCET 30 00:00: DAILY [place] gauge Misc 00 DIRECTED [facility] ONETOUCH 2020-0 Yes TEST FOUR [facility] ers DELICA PLUS 9-07 TIMES ity of LANCET 30 00:00: DAILY [place] gauge Misc 00 DIRECTED [facility] ONETOUCH 2020-0 Yes TEST FOUR [facility] ers DELICA PLUS 9-07 TIMES ity of LANCET 30 00:00: DAILY [place] gauge Misc 00 DIRECTED [facility] ONETOUCH 2020-0 Yes TEST FOUR [facility] DELICA PLUS 9-07 TIMES ity of LANCET 30 00:00: DAILY [place] [facility] Misc 00 DIRECTED [facility] ONETOUCH 2020-0 Yes TEST FOUR [facility] DELICA PLUS 9-07 TIMES ity of LANCET 30 00:00: DAILY [place] Misc 00 DIRECTED [facility] ONETOUCH 2020-0 Yes TEST FOUR [facility] DELICA PLUS 9-07 TIMES ity of LANCET 30 00:00: DAILY [place] [facility] Misc 00 DIRECTED [facility] ONETOUCH 2020-0 Yes TEST FOUR [facility] ers DELICA PLUS 9-07 TIMES ity of LANCET 30 00:00: DAILY [place] Misc 00 DIRECTED [facility] ONETOUCH 2020-0 Yes TEST FOUR [facility] DELICA PLUS 9-07 TIMES ity of LANCET 30 00:00: DAILY [place] [facility] Misc 00 DIRECTED [facility] ONETOUCH 2020-0 Yes TEST FOUR [facility] DELICA PLUS 9-07 TIMES ity of LANCET 30 00:00: DAILY [place] Misc 00 DIRECTED [facility] ONETOUCH 2020-0 Yes TEST FOUR [facility] ers DELICA PLUS 9-07 TIMES ity of LANCET 30 00:00: DAILY [place] [facility] Misc 00 DIRECTED [facility] ONETOUCH 2020-0 Yes TEST FOUR [facility] DELICA PLUS 9-07 TIMES ity of LANCET 30 00:00: DAILY [place] Misc 00 DIRECTED [facility] ONETOUCH 2020-0 Yes TEST FOUR [facility] ers DELICA PLUS 9-07 TIMES ity of LANCET 30 00:00: DAILY [place] gauge Misc 00 DIRECTED [facility] ONETOUCH 2021-0 Yes TEST FOUR [facility] DELICA PLUS 9-07 TIMES ity of LANCET 30 00:00: DAILY [place] [facility] Misc 00 DIRECTED [facility] ONETOUCH 0 Yes TEST FOUR [facility] DELICA PLUS 9-07 TIMES ity of LANCET 30 00:00: DAILY [place] Misc 00 DIRECTED Medic al Branch ONETOUCH 0 Yes TEST FOUR [facility] DELICA PLUS 9-07 TIMES [facility] LANCET 30 00:[place] Misc 00 DIRECTED [facility] ONETOUCH 0 Yes TEST FOUR [facility] DEL[place] PLUS 9-07 TIMES [facility] of LANCET 30 00:00: [place] [facility] Misc 00 DIRECTED [facility] ONETOUCH Yes TEST FOUR [facility] DEL[place] PLUS 9-07 TIMES [facility] of LANCET 30 00:00: [place] [facility] Misc 00 DIRECTED [facility] ONETOUCH Yes TEST FOUR [facility] DEL[place] PLUS 9-07 TIMES [facility] of LANCET 30 00:00: DA[place] [facility] Misc 00 DIRECTED [facility] ONETOUCH Yes TEST FOUR [facility] DEL[place] PLUS 9-07 TIMES [facility] of LANCET 30 00:00: DAILY [place] [facility] Misc 00 DIRECTED [facility] ONETOUCH Yes TEST FOUR [facility] DEL[place] PLUS 9-07 TIMES it[facility] of LANCET 30 00:00: DAILY [place] [facility] Misc 00 DIRECTED [facility] ONETOUCH Yes TEST FOUR [facility] DEL[place] PLUS 9-07 TIMES it[facility] of LANCET 30 00:00: DAILY [place] [facility] Misc 00 DIRECTED [facility] ONETOUCH 0 Yes TEST FOUR [facility] DEL[place] PLUS 9-07 TIMES [facility] of LANCET 30 00:00: DAILY [place] [facility] Misc 00 DIRECTED [facility] ONETOUCH 0 Yes TEST FOUR [facility] DEL[place] PLUS 9-07 TIMES it[facility] of LANCET 30 00:00: DAILY [place] [facility] Misc 00 DIRECTED [facility] ONETOUCH 0 Yes TEST FOUR [facility] DEL[place] PLUS 9-07 TIMES it[facility] of LANCET 30 00:00: DAILY [place] gauge Misc 00 DIRECTED [facility] ONETOUCH 0 Yes TEST FOUR [facility] DEL[place] PLUS 9-07 TIMES it[facility] of LANCET 30 00:00: DAILY [place] [facility] Misc 00 DIRECTED [facility] ONETOUCH 0 Yes TEST FOUR [facility] DEL[place] PLUS 9-07 TIMES it[facility] of LANCET 30 00:00: DAILY [place] [facility] Misc 00 DIRECTED [facility] ONETOUCH 0 Yes TEST FOUR [facility] DEL[place] PLUS 9-07 TIMES it[facility] of LANCET 30 00:00: DAILY [place] [facility] Misc 00 DIRECTED [facility] ONETOUCH 0 Yes TEST FOUR [facility] DEL[place] PLUS 9-07 TIMES it[facility] of LANCET 30 00:00: DAILY [place] [facility] Misc 00 DIRECTED [facility] ONETOUCH Yes TEST FOUR [facility] DEL[place] PLUS 9-07 TIMES ity of LANCET 30 00:00: DAILY [place] [facility] Misc 00 DIRECTED [facility] ONETOUCH 2020-0 Yes TEST FOUR [facility] DEL[place] PLUS 9-07 TIMES it[facility] of LANCET 30 00:00: DAILY [place] [facility] Misc 00 DIRECTED [facility] ONETOUCH 0 Yes TEST FOUR [facility] DEL[place] PLUS 9-07 TIMES ity of LANCET 30 00:00: DAILY [place] [facility] Misc 00 DIRECTED [facility] ONETOUCH 0 Yes TEST FOUR [facility] DEL[place] PLUS 9-07 TIMES ity of LANCET 30 00:00: DAILY [place] [facility] Misc 00 DIRECTED [facility] ONETOUCH 0 Yes TEST FOUR [facility] DEL[place] PLUS 9-07 TIMES it[facility] of LANCET 30 00:00: DA[place] gauge Misc 00 DIRECTED [facility] ONDANSETRON 0 2021- No [id number] TAKE 1 [facility] 4 mg tablet 05-21 03-08 TABLET BY it y of 00:00: 00:00 MOUTH [place] 00 :00 EVERY 8 Medical HOURS Branch NEEDED FOR NAUSEA OR VOMITING ergocalcife Yes [id number] Take 1 [facility] rol, 8-09 capsule by ity of vitamin d2, 00:00: mouth [place] 1,250 mcg 00 weekly. Medical (50,000 Take with Branch unit) food. capsule ergocalcife 2021-0 Yes [id number] Take 1 [facility] rol, 8-09 capsule by ity of vitamin d2, 00:00: mouth [place] 1,250 mcg 00 weekly. Medical (50,000 Take with Branch unit) food. capsule ergocalcife 2021-0 Yes [id number] Take 1 [facility] rol, 8-09 capsule by ity of vitamin d2, 00:00: mouth [place] 1,250 mcg 00 weekly. Medical (50,000 Take with Branch unit) food. capsule ergocalcife 2021-0 Yes [id number] Take 1 [facility] rol, 8-09 capsule by ity of vitamin d2, 00:00: mouth [place] 1,250 mcg 00 weekly. Medical (50,000 Take with Branch unit) food. capsule ergocalcife 1-0 Yes [id number] Take 1 [facility] rol, 8-09 capsule by ity of vitamin d2, 00:00: mouth [place] 1,250 mcg 00 weekly. Medical (50,000 Take with Branch unit) food. capsule ergocalcife 1-0 Yes [id number] Take 1 [facility] rol, 8-09 capsule by ity of vitamin d2, 00:00: mouth [place] 1,250 mcg 00 weekly. Medical (50,000 Take with Branch unit) food. capsule ergocalcife 1-0 Yes [id number] Take 1 [facility] rol, 8-09 capsule by ity of vitamin d2, 00:00: mouth [place] 1,250 mcg 00 weekly. Medical (50,000 Take with Branch unit) food. capsule ergocalcife 1-0 Yes [id number] Take 1 [facility] rol, 8-09 capsule by ity of vitamin d2, 00:00: mouth [place] 1,250 mcg 00 weekly. Medical (50,000 Take with Branch unit) food. capsule ergocalcife 2021-0 Yes [id number] Take 1 [facility] rol, 8-09 capsule by ity of vitamin d2, 00:00: mouth [place] 1,250 mcg 00 weekly. Medical (50,000 Take with Branch unit) food. capsule ergocalcife 2021-0 Yes [id number] Take 1 [facility] rol, 8-09 capsule by ity of vitamin d2, 00:00: mouth [place] 1,250 mcg 00 weekly. Medical (50,000 Take with Branch unit) food. capsule ergocalcife 2021-0 Yes [id number] Take 1 [facility] rol, 8-09 capsule by ity of vitamin d2, 00:00: mouth [place] 1,250 mcg 00 weekly. Medical (50,000 Take with Branch unit) food. capsule ergocalcife 2021-0 Yes [id number] Take 1 [facility] rol, 8-09 capsule by ity of vitamin d2, 00:00: mouth [place] 1,250 mcg 00 weekly. Medical (50,000 Take with Branch unit) food. capsule ergocalcife 2021-0 Yes [id number] Take 1 [facility] rol, 8-09 capsule by ity of vitamin d2, 00:00: mouth [place] 1,250 mcg 00 weekly. Medical (50,000 Take with Branch unit) food. capsule ergocalcife 2021-0 Yes [id number] Take 1 [facility] rol, 8-09 capsule by ity of vitamin d2, 00:00: mouth [place] 1,250 mcg 00 weekly. Medical (50,000 Take with Branch unit) food. capsule ergocalcife 2021-0 Yes [id number] Take 1 [facility] rol, 8-09 capsule by ity of vitamin d2, 00:00: mouth [place] 1,250 mcg 00 weekly. Medical (50,000 Take with Branch unit) food. capsule ergocalcife 2021-0 Yes [id number] Take 1 [facility] rol, 8-09 capsule by ity of vitamin d2, 00:00: mouth [place] 1,250 mcg 00 weekly. Medical (50,000 Take with Branch unit) food. capsule ergocalcife 2021-0 Yes [id number] Take 1 [facility] rol, 8-09 capsule by ity of vitamin d2, 00:00: mouth [place] 1,250 mcg 00 weekly. Medical (50,000 Take with Branch unit) food. capsule ergocalcife 2021-0 Yes [id number] Take 1 [facility] rol, 8-09 capsule by ity of vitamin d2, 00:00: mouth [place] 1,250 mcg 00 weekly. Medical (50,000 Take with Branch unit) food. capsule ergocalcife 2021-0 Yes [id number] Take 1 [facility] rol, 8-09 capsule by ity of vitamin d2, 00:00: mouth [place] 1,250 mcg 00 weekly. Medical (50,000 Take with Branch unit) food. capsule ergocalcife 2021-0 Yes [id number] Take 1 [facility] rol, 8-09 capsule by ity of vitamin d2, 00:00: mouth [place] 1,250 mcg 00 weekly. Medical (50,000 Take with Branch unit) food. capsule ergocalcife 2021-0 Yes [id number] Take 1 [facility] rol, 8-09 capsule by ity of vitamin d2, 00:00: mouth [place] 1,250 mcg 00 weekly. Medical (50,000 Take with Branch unit) food. capsule ergocalcife 2021-0 Yes [id number] Take 1 [facility] rol, 8-09 capsule by ity of vitamin d2, 00:00: mouth [place] 1,250 mcg 00 weekly. Medical (50,000 Take with Branch unit) food. capsule ergocalcife 2021-0 Yes [id number] Take 1 [facility] rol, 8-09 capsule by ity of vitamin d2, 00:00: mouth [place] 1,250 mcg 00 weekly. Medical (50,000 Take with Branch unit) food. capsule ergocalcife 2021-0 Yes [id number] Take 1 [facility] rol, 8-09 capsule by ity of vitamin d2, 00:00: mouth [place] 1,250 mcg 00 weekly. Medical (50,000 Take with Branch unit) food. capsule ergocalcife 2021-0 Yes [id number] Take 1 [facility] rol, 8-09 capsule by ity of vitamin d2, 00:00: mouth [place] 1,250 mcg 00 weekly. Medical (50,000 Take with Branch unit) food. capsule ergocalcife 2021-0 Yes [id number] Take 1 [facility] rol, 8-09 capsule by ity of vitamin d2, 00:00: mouth [place] 1,250 mcg 00 weekly. Medical (50,000 Take with Branch unit) food. capsule ergocalcife 2021-0 Yes [id number] Take 1 [facility] rol, 8-09 capsule by ity of vitamin d2, 00:00: mouth [place] 1,250 mcg 00 weekly. Medical (50,000 Take with Branch unit) food. capsule ergocalcife 2021-0 Yes [id number] Take 1 [facility] rol, 8-09 capsule by ity of vitamin d2, 00:00: mouth [place] 1,250 mcg 00 weekly. Medical (50,000 Take with Branch unit) food. capsule ergocalcife 2021-0 Yes [id number] Take 1 [facility] rol, 8-09 capsule by ity of vitamin d2, 00:00: mouth [place] 1,250 mcg 00 weekly. Medical (50,000 Take with Branch unit) food. capsule ergocalcife 2021-0 Yes [id number] Take 1 [facility] rol, 8-09 capsule by ity of vitamin d2, 00:00: mouth [place] 1,250 mcg 00 weekly. Medical (50,000 Take with Branch unit) food. capsule ergocalcife 2021-0 Yes [id number] Take 1 [facility] rol, 8-09 capsule by ity of vitamin d2, 00:00: mouth [place] 1,250 mcg 00 weekly. Medical (50,000 Take with Branch unit) food. capsule ergocalcife 2021-0 Yes [id number] Take 1 [facility] rol, 8-09 capsule by ity of vitamin d2, 00:00: mouth [place] 1,250 mcg 00 weekly. Medical (50,000 Take with Branch unit) food. capsule ergocalcife 2021-0 Yes [id number] Take 1 [facility] rol, 8-09 capsule by ity of vitamin d2, 00:00: mouth [place] 1,250 mcg 00 weekly. Medical (50,000 Take with Branch unit) food. capsule ergocalcife 2021-0 Yes [id number] Take 1 [facility] rol, 8-09 capsule by ity of vitamin d2, 00:00: mouth [place] 1,250 mcg 00 weekly. Medical (50,000 Take with Branch unit) food. capsule ergocalcife 2021-0 Yes [id number] Take 1 [facility] rol, 8-09 capsule by ity of vitamin d2, 00:00: mouth [place] 1,250 mcg 00 weekly. Medical (50,000 Take with Branch unit) food. capsule ergocalcife 2021-0 Yes [id number] Take 1 [facility] rol, 8-09 capsule by ity of vitamin d2, 00:00: mouth [place] 1,250 mcg 00 weekly. Medical (50,000 Take with Branch unit) food. capsule ergocalcife 2021-0 Yes [id number] Take 1 [facility] rol, 8-09 capsule by ity of vitamin d2, 00:00: mouth [place] 1,250 mcg 00 weekly. Medical (50,000 Take with Branch unit) food. capsule ergocalcife 2021-0 Yes [id number] Take 1 [facility] rol, 8-09 capsule by ity of vitamin d2, 00:00: mouth [place] 1,250 mcg 00 weekly. Medical (50,000 Take with Branch unit) food. capsule ergocalcife 2021-0 Yes [id number] Take 1 [facility] rol, 8-09 capsule by ity of vitamin d2, 00:00: mouth [place] 1,250 mcg 00 weekly. Medical (50,000 Take with Branch unit) food. capsule ergocalcife 2021-0 Yes [id number] Take 1 [facility] rol, 8-09 capsule by ity of vitamin d2, 00:00: mouth [place] 1,250 mcg 00 weekly. Medical (50,000 Take with Branch unit) food. capsule ergocalcife 2021-0 Yes [id number] Take 1 [facility] rol, 8-09 capsule by ity of vitamin d2, 00:00: mouth [place] 1,250 mcg 00 weekly. Medical (50,000 Take with Branch unit) food. capsule ergocalcife 2021-0 Yes [id number] Take 1 [facility] rol, 8-09 capsule by ity of vitamin d2, 00:00: mouth [place] 1,250 mcg 00 weekly. Medical (50,000 Take with Branch unit) food. capsule ergocalcife 2021-0 Yes [id number] Take 1 [facility] rol, 8-09 capsule by ity of vitamin d2, 00:00: mouth [place] 1,250 mcg 00 weekly. Medical (50,000 Take with Branch unit) food. capsule ergocalcife 2021-0 Yes [id number] Take 1 [facility] rol, 8-09 capsule by ity of vitamin d2, 00:00: mouth [place] 1,250 mcg 00 weekly. Medical (50,000 Take with Branch unit) food. capsule ergocalcife 2021-0 Yes [id number] Take 1 [facility] rol, 8-09 capsule by ity of vitamin d2, 00:00: mouth [place] 1,250 mcg 00 weekly. Medical (50,000 Take with Branch unit) food. capsule ergocalcife 2021-0 Yes [id number] Take 1 [facility] rol, 8-09 capsule by ity of vitamin d2, 00:00: mouth [place] 1,250 mcg 00 weekly. Medical (50,000 Take with Branch unit) food. capsule ergocalcife 2021-0 Yes [id number] Take 1 [facility] rol, 8-09 capsule by ity of vitamin d2, 00:00: mouth [place] 1,250 mcg 00 weekly. Medical (50,000 Take with Branch unit) food. capsule ergocalcife 2021-0 Yes [id number] Take 1 [facility] rol, 8-09 capsule by ity of vitamin d2, 00:00: mouth [place] 1,250 mcg 00 weekly. Medical (50,000 Take with Branch unit) food. capsule ergocalcife 2021-0 Yes [id number] Take 1 [facility] rol, 8-09 capsule by ity of vitamin d2, 00:00: mouth [place] 1,250 mcg 00 weekly. Medical (50,000 Take with Branch unit) food. capsule ergocalcife 2021-0 Yes [id number] Take 1 [facility] rol, 8-09 capsule by ity of vitamin d2, 00:00: mouth [place] 1,250 mcg 00 weekly. Medical (50,000 Take with Branch unit) food. capsule ergocalcife 2021-0 Yes [id number] Take 1 [facility] rol, 8-09 capsule by ity of vitamin d2, 00:00: mouth [place] 1,250 mcg 00 weekly. Medical (50,000 Take with Branch unit) food. capsule ergocalcife 2021-0 Yes [id number] Take 1 [facility] rol, 8-09 capsule by ity of vitamin d2, 00:00: mouth [place] 1,250 mcg 00 weekly. Medical (50,000 Take with Branch unit) food. capsule ergocalcife 2021-0 Yes [id number] Take 1 [facility] rol, 8-09 capsule by ity of vitamin d2, 00:00: mouth [place] 1,250 mcg 00 weekly. Medical (50,000 Take with Branch unit) food. capsule ergocalcife 2021-0 Yes [id number] Take 1 [facility] rol, 8-09 capsule by ity of vitamin d2, 00:00: mouth [place] 1,250 mcg 00 weekly. Medical (50,000 Take with Branch unit) food. capsule ergocalcife 2021-0 Yes [id number] Take 1 [facility] rol, 8-09 capsule by ity of vitamin d2, 00:00: mouth [place] 1,250 mcg 00 weekly. Medical (50,000 Take with Branch unit) food. capsule ergocalcife 2021-0 Yes [id number] Take 1 [facility] rol, 8-09 capsule by ity of vitamin d2, 00:00: mouth [place] 1,250 mcg 00 weekly. Medical (50,000 Take with Branch unit) food. capsule ergocalcife 2021-0 Yes [id number] Take 1 [facility] rol, 8-09 capsule by ity of vitamin d2, 00:00: mouth [place] 1,250 mcg 00 weekly. Medical (50,000 Take with Branch unit) food. capsule ergocalcife 2021-0 Yes [id number] Take 1 [facility] rol, 8-09 capsule by ity of vitamin d2, 00:00: mouth [place] 1,250 mcg 00 weekly. Medical (50,000 Take with Branch unit) food. capsule ergocalcife 2021-0 Yes [id number] Take 1 [facility] rol, 8-09 capsule by ity of vitamin d2, 00:00: mouth [place] 1,250 mcg 00 weekly. Medical (50,000 Take with Branch unit) food. capsule ergocalcife 2021-0 Yes [id number] Take 1 [facility] rol, 8-09 capsule by ity of vitamin d2, 00:00: mouth [place] 1,250 mcg 00 weekly. Medical (50,000 Take with Branch unit) food. capsule ergocalcife 2021-0 Yes [id number] Take 1 [facility] rol, 8-09 capsule by ity of vitamin d2, 00:00: mouth [place] 1,250 mcg 00 weekly. Medical (50,000 Take with Branch unit) food. capsule ergocalcife 2021-0 Yes [id number] Take 1 [facility] rol, 8-09 capsule by ity of vitamin d2, 00:00: mouth [place] 1,250 mcg 00 weekly. Medical (50,000 Take with Branch unit) food. capsule ergocalcife 2021-0 Yes [id number] Take 1 [facility] rol, 8-09 capsule by ity of vitamin d2, 00:00: mouth [place] 1,250 mcg 00 weekly. Medical (50,000 Take with Branch unit) food. capsule ergocalcife 2021-0 Yes [id number] Take 1 [facility] rol, 8-09 capsule by ity of vitamin d2, 00:00: mouth [place] 1,250 mcg 00 weekly. Medical (50,000 Take with Branch unit) food. capsule ergocalcife 2021-0 Yes [id number] Take 1 [facility] rol, 8-09 capsule by ity of vitamin d2, 00:00: mouth [place] 1,250 mcg 00 weekly. Medical (50,000 Take with Branch unit) food. capsule ergocalcife 2021-0 Yes [id number] Take 1 [facility] rol, 8-09 capsule by ity of vitamin d2, 00:00: mouth [place] 1,250 mcg 00 weekly. Medical (50,000 Take with Branch unit) food. capsule ergocalcife 2021-0 Yes [id number] Take 1 [facility] rol, 8-09 capsule by ity of vitamin d2, 00:00: mouth [place] 1,250 mcg 00 weekly. Medical (50,000 Take with Branch unit) food. capsule ergocalcife 2021-0 Yes [id number] Take 1 [facility] rol, 8-09 capsule by ity of vitamin d2, 00:00: mouth [place] 1,250 mcg 00 weekly. Medical (50,000 Take with Branch unit) food. capsule ergocalcife 2021-0 Yes [id number] Take 1 [facility] rol, 8-09 capsule by ity of vitamin d2, 00:00: mouth [place] 1,250 mcg 00 weekly. Medical (50,000 Take with Branch unit) food. capsule ergocalcife 2021-0 Yes [id number] Take 1 [facility] rol, 8-09 capsule by ity of vitamin d2, 00:00: mouth [place] 1,250 mcg 00 weekly. Medical (50,000 Take with Branch unit) food. capsule ergocalcife 2021-0 Yes [id number] Take 1 [facility] rol, 8-09 capsule by ity of vitamin d2, 00:00: mouth [place] 1,250 mcg 00 weekly. Medical (50,000 Take with Branch unit) food. capsule ergocalcife 2021-0 Yes [id number] Take 1 [facility] rol, 8-09 capsule by ity of vitamin d2, 00:00: mouth [place] 1,250 mcg 00 weekly. Medical (50,000 Take with Branch unit) food. capsule ergocalcife 2021-0 Yes [id number] Take 1 [facility] rol, 8-09 capsule by ity of vitamin d2, 00:00: mouth [place] 1,250 mcg 00 weekly. Medical (50,000 Take with Branch unit) food. capsule ergocalcife 2021-0 Yes [id number] Take 1 [facility] rol, 8-09 capsule by ity of vitamin d2, 00:00: mouth [place] 1,250 mcg 00 weekly. Medical (50,000 Take with Branch unit) food. capsule ergocalcife 2021-0 Yes [id number] Take 1 [facility] rol, 8-09 capsule by ity of vitamin d2, 00:00: mouth [place] 1,250 mcg 00 weekly. Medical (50,000 Take with Branch unit) food. capsule ergocalcife 2021-0 Yes [id number] Take 1 [facility] rol, 8-09 capsule by ity of vitamin d2, 00:00: mouth [place] 1,250 mcg 00 weekly. Medical (50,000 Take with Branch unit) food. capsule ergocalcife 2021-0 Yes [id number] Take 1 [facility] rol, 8-09 capsule by ity of vitamin d2, 00:00: mouth [place] 1,250 mcg 00 weekly. Medical (50,000 Take with Branch unit) food. capsule ergocalcife 2021-0 Yes [id number] Take 1 [facility] rol, 8-09 capsule by ity of vitamin d2, 00:00: mouth [place] 1,250 mcg 00 weekly. Medical (50,000 Take with Branch unit) food. capsule ergocalcife 2021-0 Yes [id number] Take 1 [facility] rol, 8-09 capsule by ity of vitamin d2, 00:00: mouth [place] 1,250 mcg 00 weekly. Medical (50,000 Take with Branch unit) food. capsule ergocalcife 2021-0 Yes [id number] Take 1 [facility] rol, 8-09 capsule by ity of vitamin d2, 00:00: mouth [place] 1,250 mcg 00 weekly. Medical (50,000 Take with Branch unit) food. capsule ergocalcife 1-0 Yes [id number] Take 1 [facility] rol, 8-09 capsule by ity of vitamin d2, 00:00: mouth [place] 1,250 mcg 00 weekly. Medical (50,000 Take with Branch unit) food. capsule ergocalcife 2020-0 Yes [id number] Take 1 [facility] rol, 8-09 capsule by ity of vitamin d2, 00:00: mouth [place] 1,250 mcg 00 weekly. Medical (50,000 Take with Branch unit) food. capsule ergocalcife 2020-0 Yes [id number] Take 1 [facility] rol, 8-09 capsule by ity of vitamin d2, 00:00: mouth [place] 1,250 mcg 00 weekly. Medical (50,000 Take with Branch unit) food. capsule ergocalcife 2020-0 Yes [id number] Take 1 [facility] rol, 8-09 capsule by ity of vitamin d2, 00:00: mouth [place] 1,250 mcg 00 weekly. Medical (50,000 Take with Branch unit) food. capsule ergocalcife 2020-0 Yes [id number] Take 1 [facility] rol, 8-09 capsule by ity of vitamin d2, 00:00: mouth [place] 1,250 mcg 00 weekly. Medical (50,000 Take with Branch unit) food. capsule ergocalcife 2020-0 Yes [id number] Take 1 [facility] rol, 8-09 capsule by ity of vitamin d2, 00:00: mouth [place] 1,250 mcg 00 weekly. Medical (50,000 Take with Branch unit) food. capsule ergocalcife 2020-0 Yes [id number] Take 1 [facility] rol, 8-09 capsule by ity of vitamin d2, 00:00: mouth [place] 1,250 mcg 00 weekly. Medical (50,000 Take with Branch unit) food. capsule ergocalcife 2020-0 Yes [id number] Take 1 [facility] rol, 8-09 capsule by ity of vitamin d2, 00:00: mouth [place] 1,250 mcg 00 weekly. Medical (50,000 Take with Branch unit) food. capsule ergocalcife 1-0 2023- No [id number] Take 1 [facility] rol, 8-09 05-22 capsule by ity of vitamin d2, 00:00: 00:00 [place] 1,250 [place] 00 :00 weekly. Medical (50,000 Take with Branch unit) food. capsule ergocalcife 3- No [id number] Take 1 [facility] rol, 05-03 capsule by ity of vitamin d2, 00:00: 00:00 [place] 1[place]250 [place] 00 :00 weekly. Medical (50,000 Take with Branch unit) food. capsule ergocalcife 0 3- No [id number] Take 1 [facility] rol, 05-03 capsule by ity of vitamin d2, 00:00: 00:00 [place] 1[place]250 [place] 00 :00 weekly. Medical (50,000 Take with Branch unit) food. capsule ergocalcife 3- No [id number] Take 1 [facility] rol, 05-03 capsule by ity of vitamin d2, 00:00: 00:00 [place] 1,250 [place] 00 :00 weekly. Medical (50,000 Take with Branch unit) food. capsule loratadine Yes [id number] 10mg Take 1 [facility] 10 mg 8-05 tablet by ity of tablet 00:00: mouth at [place] [address] bedtime. Medical Branch loratadine Yes [id number] 10mg Take 1 [facility] 10 mg 8-05 tablet by ity of tablet 00:00: mouth at [place] [address] bedtime. Medical Branch loratadine Yes [id number] 10mg Take 1 [facility] 10 mg 8-05 tablet by ity of tablet 00:00: mouth at [place] [address] bedtime. Medical Branch loratadine Yes [id number] 10mg Take 1 [facility] 10 mg 8-05 tablet by ity of tablet 00:00: mouth at [place] [address] bedtime. Medical Branch loratadine Yes [id number] 10mg Take 1 [facility] 10 mg 8-05 tablet by ity of tablet 00:00: mouth at [place] [address] bedtime. Medical Branch loratadine Yes [id number] 10mg Take 1 [facility] 10 mg 8-05 tablet by ity of tablet 00:00: mouth at [place] [address] bedtime. Medical Branch loratadine Yes [id number] 10mg Take 1 [facility] 10 mg 8-05 tablet by ity of tablet 00:00: mouth at [place] [address] bedtime. Medical Branch loratadine 2020-0 Yes [id number] 10mg Take 1 [facility] 10 mg 8-05 tablet by ity of tablet 00:00: mouth at [place] [address] bedtime. Medical Branch loratadine 2020-0 Yes [id number] 10mg Take 1 [facility] 10 mg 8-05 tablet by ity of tablet 00:00: mouth at [place] [address] bedtime. Medical Branch loratadine 0 Yes [id number] 10mg Take 1 [facility] 10 mg 8-05 tablet by ity of tablet 00:00: mouth at [place] [address] bedtime. Medical Branch loratadine 0 Yes [id number] 10mg Take 1 [facility] 10 mg 8-05 tablet by ity of tablet 00:00: mouth at [place] [address] bedtime. Medical Branch loratadine 0 Yes [id number] 10mg Take 1 [facility] 10 mg 8-05 tablet by ity of tablet 00:00: mouth at [place] [address] bedtime. Medical Branch loratadine 0 Yes [id number] 10mg Take 1 [facility] 10 mg 8-05 tablet by ity of tablet 00:00: mouth at [place] [address] bedtime. Medical Branch loratadine 0 Yes [id number] 10mg Take 1 [facility] 10 mg 8-05 tablet by ity of tablet 00:00: mouth at [place] [address] bedtime. Medical Branch loratadine 0 Yes [id number] 10mg Take 1 [facility] 10 mg 8-05 tablet by ity of tablet 00:00: mouth at [place] [address] bedtime. Medical Branch loratadine 0 Yes [id number] 10mg Take 1 [facility] 10 mg 8-05 tablet by ity of tablet 00:00: mouth at [place] [address] bedtime. Medical Branch loratadine 0 Yes [id number] 10mg Take 1 [facility] 10 mg 8-05 tablet by ity of tablet 00:00: mouth at [place] [address] bedtime. Medical Branch loratadine 0 Yes [id number] 10mg Take 1 [facility] 10 mg 8-05 tablet by ity of tablet 00:00: mouth at [place] 00 bedtime. Medical Branch loratadine 2021- No [id number] 10mg Take 1 [facility] 10 mg 8-05 10-11 tablet by ity of tablet 00:00: 00:00 mouth at [place] 00 :00 bedtime. Medical Branch loratadine 2021- No [id number] 10mg Take 1 [facility] 10 mg 8-05 10-11 tablet by ity of tablet 00:00: 00:00 mouth at [place] 00 :00 bedtime. Medical Branch loratadine 2021- No [id number] 10mg Take 1 [facility] 10 mg 8-05 10-11 tablet by ity of tablet 00:00: 00:00 mouth at [place] 00 :00 bedtime. Medical Branch loratadine 2021- No [id number] 10mg Take 1 [facility] 10 mg 8-05 10-11 tablet by ity of tablet 00:00: 00:00 mouth at [place] 00 :00 bedtime. Medical Branch Insulin 2019-09 Yes [id number] Use as [facility] [place], 2-17 directed ity of Disposable, 00:00: to inject [place] (PEN 00 insulin Medical NEEDLE) 32 daily; Branch gauge x ICD-10 5/32" Ndle code E11.8 Insulin 2019-09 Yes [id number] Use as [facility] [place], 2-17 directed ity of Disposable, 00:00: to inject [place] (PEN 00 insulin Medical NEEDLE) 32 daily; Branch gauge x ICD-10 5/32" Ndle code E11.8 Insulin 2019-09 Yes [id number] Use as [facility] [place], 2-17 directed ity of Disposable, 00:00: to inject [place] (PEN 00 insulin Medical NEEDLE) 32 daily; Branch gauge x ICD-10 5/32" Ndle code E11.8 Insulin 2020 Yes [id number] Use as [facility] [place], 2-17 directed ity of Disposable, 00:00: to inject [place] (PEN 00 insulin Medical NEEDLE) 32 daily; Branch gauge x ICD-10 5/32" Ndle code E11.8 Insulin 2019-09 Yes [id number] Use as [facility] [place], 2-17 directed ity of Disposable, 00:00: to inject [place] (PEN 00 insulin Medical NEEDLE) 32 daily; Branch gauge x ICD-10 5/32" Ndle code E11.8 Insulin 2019-09 Yes [id number] [facility] as [facility] [place], 2-17 directed ity of Disposable, 00:00: to inject [place] (PEN 00 insulin Medical NEEDLE) 32 daily; Branch gauge x ICD-10 5/32" Ndle code E11.8 Insulin 2019-09 Yes [id number] Use as [facility] [place], 2-17 directed ity of Disposable, 00:00: to inject [place] (PEN 00 insulin Medical NEEDLE) 32 daily; Branch gauge x ICD-10 5/32" Ndle code E11.8 Insulin 2019-09 Yes [id number] Use as [facility] [place], 2-17 directed ity of Disposable, 00:00: to inject [place] (PEN 00 insulin Medical NEEDLE) 32 daily; Branch gauge x ICD-10 5/32" Ndle code E11.8 Insulin 2019-09 Yes [id number] Use as [facility] [place], 2-17 directed ity of Disposable, 00:00: to inject [place] (PEN 00 insulin Medical NEEDLE) 32 daily; Branch gauge x ICD-10 5/32" Ndle code E11.8 Insulin 2019-09 Yes [id number] Use as [facility] [place], 2-17 directed ity of Disposable, 00:00: to inject [place] (PEN 00 insulin Medical NEEDLE) 32 daily; Branch gauge x ICD-10 5/32" Ndle code E11.8 Insulin 2019-09 Yes [id number] Use as [facility] [place], 2-17 directed ity of Disposable, 00:00: to inject [place] (PEN 00 insulin Medical NEEDLE) 32 daily; Branch gauge x ICD-10 5/32" Ndle code E11.8 Insulin 2019-09 Yes [id number] Use as [facility] [place], 2-17 directed ity of Disposable, 00:00: to inject [place] (PEN 00 insulin Medical NEEDLE) 32 daily; Branch gauge x ICD-10 5/32" Ndle code E11.8 Insulin 2019-09 Yes [id number] Use as [facility] [place], 2-17 directed ity of Disposable, 00:00: to inject [place] (PEN 00 insulin Medical NEEDLE) 32 daily; Branch gauge x ICD-10 5/32" Ndle code E11.8 Insulin 2019-09 Yes [id number] Use as [facility] [place], 2-17 directed ity of Disposable, 00:00: to inject [place] (PEN 00 insulin Medical NEEDLE) 32 daily; Branch gauge x ICD-10 5/32" Ndle code E11.8 Insulin 2019-09 Yes [id number] Use as [facility] [place], 2- directed ity of Disposable, 00:00: to inject [place] (PEN 00 insulin Medical NEEDLE) 32 daily; Branch gauge x ICD-10 5/32" Ndle code E11.8 Insulin 2019-09 Yes [id number] Use as [facility] [place], 2- directed ity of Disposable, 00:00: to inject [place] (PEN 00 insulin Medical NEEDLE) 32 daily; Branch gauge x ICD-10 5/32" Ndle code E11.8 Insulin 2019-09 Yes [id number] Use as [facility] [place], 2- directed ity of Disposable, 00:00: to inject [place] (PEN 00 insulin Medical NEEDLE) 32 daily; Branch gauge x ICD-10 5/32" Ndle code E11.8 Insulin 2019-09 Yes [id number] Use as [facility] [place], 2- directed ity of Disposable, 00:00: to inject [place] (PEN 00 insulin Medical NEEDLE) 32 daily; Branch gauge x ICD-10 5/32" Ndle code E11.8 Insulin 2019-09- No [id number] Use as [facility] [place], 11-11 directed ity of Disposable, 00:00: 00:00 to inject [place] (PEN 00 :00 insulin Medical NEEDLE) 32 daily; Branch gauge x ICD-10 5/32" Ndle code E11.8 Insulin 2019-09- No [id number] Use as [facility] [place], 11-11 directed ity of Disposable, 00:00: 00:00 to inject [place] (PEN 00 :00 insulin Medical NEEDLE) 32 daily; Branch gauge x ICD-10 5/32" Ndle code E11.8 Insulin 2019-09- No [id number] Use as [facility] [place], 11-11 directed ity of Disposable, 00:00: 00:00 to inject [place] (PEN 00 :00 insulin Medical NEEDLE) 32 daily; Branch gauge x ICD-10 5/32" Ndle code E11.8 Insulin 2019-09- No [id number] Use as [facility] [place], 11-11 directed ity of Disposable, 00:00: 00:00 to inject [place] (PEN 00 :00 insulin Medical NEEDLE) 32 daily; Branch gauge x ICD-10 " Ndle code E11.8 nitroglycer 2020- Yes [id number] .4mg [facility] in 0.4 mg 2-15 tablet ity of sublingual 00:00: under the [place] tablet 00 tongue Medical every 5 Branch (five) minutes as needed for Chest pain. nitroglycer 2020- Yes [id number] .4mg [facility] 1 [facility] in 0.4 mg 2-15 tablet ity of sublingual 00:00: under the [place] tablet 00 tongue Medical every 5 Branch (five) minutes as needed for Chest pain. nitroglycer 2020- Yes [id number] .4mg [facility] 1 [facility] in 0.4 mg 2-15 tablet ity of sublingual 00:00: under the [place] tablet 00 tongue Medical every 5 Branch (five) minutes as needed for Chest pain. nitroglycer 2019- Yes [id number] .4mg [facility] 1 [facility] in 0.4 mg 2-15 tablet ity of sublingual 00:00: under the [place] tablet 00 tongue Medical every 5 Branch (five) minutes as needed for Chest pain. nitroglycer 2019- Yes [id number] .4mg [facility] 1 [facility] in 0.4 mg 2-15 tablet ity of sublingual 00:00: under the [place] tablet 00 tongue Medical every 5 Branch (five) minutes as needed for Chest pain. nitroglycer 2019-[id number] 1 [facility] in 0.4 mg 2-15 tablet ity of sublingual 00:00: under the [place] tablet 00 tongue Medical every 5 Branch (five) minutes as needed for Chest pain. nitroglycer 2020-[id number] 1 [facility] in 0.4 mg 2-15 tablet ity of sublingual 00:00: under the [place] tablet 00 tongue Medical every 5 Branch (five) minutes as needed for Chest pain. nitroglycer 2020-[id number] 1 [facility] in 0.4 mg 2-15 tablet ity of sublingual 00:00: under the [place] tablet 00 tongue Medical every 5 Branch (five) minutes as needed for Chest pain. nitroglycer 2020-[id number] 1 [facility] in 0.4 mg 2-15 tablet ity of sublingual 00:00: under the [place] tablet 00 tongue Medical every 5 Branch (five) minutes as needed for Chest pain. nitroglycer 2020-[id number] 1 [facility] in 0.4 mg 2-15 tablet ity of sublingual 00:00: under the [place] tablet 00 tongue Medical every 5 Branch (five) minutes as needed for Chest pain. nitroglycer 2019-[id number] 1 [facility] in 0.4 mg 2-15 tablet ity of sublingual 00:00: under the [place] tablet 00 tongue Medical every 5 Branch (five) minutes as needed for Chest pain. nitroglycer 2019-[id number] 1 [facility] in 0.4 mg 2-15 tablet ity of sublingual 00:00: under the [place] tablet 00 tongue Medical every 5 Branch (five) minutes as needed for Chest pain. nitroglycer 2019-[id number] 1 [facility] in 0.4 mg 2-15 tablet ity of sublingual 00:00: under the [place] tablet 00 tongue Medical every 5 Branch (five) minutes as needed for Chest pain. nitroglycer 2019-[id number] 1 [facility] in 0.4 mg 2-15 tablet ity of sublingual 00:00: under the [place] tablet 00 tongue Medical every 5 Branch (five) minutes as needed for Chest pain. nitroglycer 2019-[id number] 1 [facility] in 0.4 mg 2-15 tablet ity of sublingual 00:00: under the [place] tablet 00 tongue Medical every 5 Branch (five) minutes as needed for Chest pain. nitroglycer 2019-[id number] 1 [facility] in 0.4 mg 2-15 tablet ity of sublingual 00:00: under the [place] tablet 00 tongue Medical every 5 Branch (five) minutes as needed for Chest pain. nitroglycer 2020-[id number] 1 [facility] in 0.4 mg 2-15 tablet ity of sublingual 00:00: under the [place] tablet 00 tongue Medical every 5 Branch (five) minutes as needed for Chest pain. nitroglycer 2019-[id number] 1 [facility] in 0.4 mg 2-15 tablet ity of sublingual 00:00: under the [place] tablet 00 tongue Medical every 5 Branch (five) minutes as needed for Chest pain. nitroglycer 2020-[id number] 1 [facility] in 0.4 mg 2-15 tablet ity of sublingual 00:00: under the [place] tablet 00 tongue Medical every 5 Branch (five) minutes as needed for Chest pain. nitroglycer 2019-[id number] 1 [facility] in 0.4 mg 2-15 tablet ity of sublingual 00:00: under the [place] tablet 00 tongue Medical every 5 Branch (five) minutes as needed for Chest pain. nitroglycer 2019-[id number] 1 [facility] in 0.4 mg 2-15 tablet ity of sublingual 00:00: under the [place] tablet 00 tongue Medical every 5 Branch (five) minutes as needed for Chest pain. nitroglycer 2019-[id number] 1 [facility] in 0.4 mg 2-15 tablet ity of sublingual 00:00: under the [place] tablet 00 tongue Medical every 5 Branch (five) minutes as needed for Chest pain. nitroglycer 2019-[id number] 1 [facility] in 0.4 mg 2-15 tablet ity of sublingual 00:00: under the [place] tablet 00 tongue Medical every 5 Branch (five) minutes as needed for Chest pain. nitroglycer 2019-[id number] 1 [facility] in 0.4 mg 2-15 tablet ity of sublingual 00:00: under the [place] tablet 00 tongue Medical every 5 Branch (five) minutes as needed for Chest pain. nitroglycer 2019-[id number] 1 [facility] in 0.4 mg 2-15 tablet ity of sublingual 00:00: under the [place] tablet 00 tongue Medical every 5 Branch (five) minutes as needed for Chest pain. nitroglycer 2019-[id number] 1 [facility] in 0.4 mg 2-15 tablet ity of sublingual 00:00: under the [place] tablet 00 tongue Medical every 5 Branch (five) minutes as needed for Chest pain. nitroglycer 2019-[id number] 1 [facility] in 0.4 mg 2-15 tablet ity of sublingual 00:00: under the [place] tablet 00 tongue Medical every 5 Branch (five) minutes as needed for Chest pain. nitroglycer 2019-[id number] 1 [facility] in 0.4 mg 2-15 tablet ity of sublingual 00:00: under the [place] tablet 00 tongue Medical every 5 Branch (five) minutes as needed for Chest pain. nitroglycer 2019- Yes [id number] .4mg [facility] 1 [facility] in 0.4 mg 2-15 tablet ity of sublingual 00:00: under the [place] tablet 00 tongue Medical every 5 Branch (five) minutes as needed for Chest pain. nitroglycer 2019- Yes [id number] .4mg [facility] 1 [facility] in 0.4 mg 2-15 tablet ity of sublingual 00:00: under the [place] tablet 00 tongue Medical every 5 Branch (five) minutes as needed for Chest pain. nitroglycer 2019- Yes [id number] .4mg [facility] 1 [facility] in 0.4 mg 2-15 tablet ity of sublingual 00:00: under the [place] tablet 00 tongue Medical every 5 Branch (five) minutes as needed for Chest pain. nitroglycer 2019- Yes [id number] .4mg [facility] 1 [facility] in 0.4 mg 2-15 tablet ity of sublingual 00:00: under the [place] tablet 00 tongue Medical every 5 Branch (five) minutes as needed for Chest pain. nitroglycer 2019-[id number] 1 [facility] in 0.4 mg 2-15 tablet ity of sublingual 00:00: under the [place] tablet 00 tongue Medical every 5 Branch (five) minutes as needed for Chest pain. nitroglycer 2019-[id number] 1 [facility] in 0.4 mg 2-15 tablet ity of sublingual 00:00: under the [place] tablet 00 tongue Medical every 5 Branch (five) minutes as needed for Chest pain. nitroglycer 2019-[id number] 1 [facility] in 0.4 mg 2-15 tablet ity of sublingual 00:00: under the [place] tablet 00 tongue Medical every 5 Branch (five) minutes as needed for Chest pain. nitroglycer 2019-[id number] 1 [facility] in 0.4 mg 2-15 tablet ity of sublingual 00:00: under the [place] tablet 00 tongue Medical every 5 Branch (five) minutes as needed for Chest pain. nitroglycer 2019- Yes [id number] .4mg [facility] 1 [facility] in 0.4 mg 2-15 tablet ity of sublingual 00:00: under the [place] tablet 00 tongue Medical every 5 Branch (five) minutes as needed for Chest pain. nitroglycer 2019- Yes [id number] .4mg [facility] 1 [facility] in 0.4 mg 2-15 tablet ity of sublingual 00:00: under the [place] tablet 00 tongue Medical every 5 Branch (five) minutes as needed for Chest pain. nitroglycer 2019-[id number] 1 [facility] in 0.4 mg 2-15 tablet ity of sublingual 00:00: under the [place] tablet 00 tongue Medical every 5 Branch (five) minutes as needed for Chest pain. nitroglycer 2019-[id number] 1 [facility] in 0.4 mg 2-15 tablet ity of sublingual 00:00: under the [place] tablet 00 tongue Medical every 5 Branch (five) minutes as needed for Chest pain. nitroglycer 2019-[id number] 1 [facility] in 0.4 mg 2-15 tablet ity of sublingual 00:00: under the [place] tablet 00 tongue Medical every 5 Branch (five) minutes as needed for Chest pain. nitroglycer 2019- Yes [id number] .4mg [facility] 1 [facility] in 0.4 mg 2-15 tablet ity of sublingual 00:00: under the [place] tablet 00 tongue Medical every 5 Branch (five) minutes as needed for Chest pain. nitroglycer 2019-[id number] 1 [facility] in 0.4 mg 2-15 tablet ity of sublingual 00:00: under the [place] tablet 00 tongue Medical every 5 Branch (five) minutes as needed for Chest pain. nitroglycer 2019-[id number] 1 [facility] in 0.4 mg 2-15 tablet ity of sublingual 00:00: under the [place] tablet 00 tongue Medical every 5 Branch (five) minutes as needed for Chest pain. nitroglycer 2019- Yes [id number] .4mg [facility] 1 [facility] in 0.4 mg 2-15 tablet ity of sublingual 00:00: under the [place] tablet 00 tongue Medical every 5 Branch (five) minutes as needed for Chest pain. nitroglycer 2019- Yes [id number] .4mg [address] 1 [facility] in 0.4 mg 2-15 tablet ity of sublingual 00:00: under the [place] tablet 00 tongue Medical every 5 Branch (five) minutes as needed for Chest pain. nitroglycer 2019-[id number] 1 [facility] in 0.4 mg 2-15 tablet ity of sublingual 00:00: under the [place] tablet 00 tongue Medical every 5 Branch (five) minutes as needed for Chest pain. nitroglycer 2019- Yes [id number] .4mg [facility] 1 [facility] in 0.4 mg 2-15 tablet ity of sublingual 00:00: under the [place] tablet 00 tongue Medical every 5 Branch (five) minutes as needed for Chest pain. nitroglycer 2019- Yes [id number] .4mg [facility] 1 [facility] in 0.4 mg 2-15 tablet ity of sublingual 00:00: under the [place] tablet 00 tongue Medical every 5 Branch (five) minutes as needed for Chest pain. nitroglycer 2019-[id number] 1 [facility] in 0.4 mg 2-15 tablet ity of sublingual 00:00: under the [place] tablet 00 tongue Medical every 5 Branch (five) minutes as needed for Chest pain. nitroglycer 2019-[id number] 1 [facility] in 0.4 mg 2-15 tablet ity of sublingual 00:00: under the [place] tablet 00 tongue Medical every 5 Branch (five) minutes as needed for Chest pain. nitroglycer 2019-[id number] 1 [facility] in 0.4 mg 2-15 tablet ity of sublingual 00:00: under the [place] tablet 00 tongue Medical every 5 Branch (five) minutes as needed for Chest pain. nitroglycer 2019-[id number] 1 [facility] in 0.4 mg 2-15 tablet ity of sublingual 00:00: under the [place] tablet 00 tongue Medical every 5 Branch (five) minutes as needed for Chest pain. nitroglycer 2019-[id number] 1 [facility] in 0.4 mg 2-15 tablet ity of sublingual 00:00: under the [place] tablet 00 tongue Medical every 5 Branch (five) minutes as needed for Chest pain. nitroglycer 2019- Yes [id number] .4mg [facility] 1 [facility] in 0.4 mg 2-15 tablet ity of sublingual 00:00: under the [place] tablet 00 tongue Medical every 5 Branch (five) minutes as needed for Chest pain. nitroglycer 2019- Yes [id number] .4mg [facility] 1 [facility] in 0.4 mg 2-15 tablet ity of sublingual 00:00: under the [place] tablet 00 tongue Medical every 5 Branch (five) minutes as needed for Chest pain. nitroglycer 2019-[id number] 1 [facility] in 0.4 mg 2-15 tablet ity of sublingual 00:00: under the [place] tablet 00 tongue Medical every 5 Branch (five) minutes as needed for Chest pain. nitroglycer 2019- Yes [id number] .4mg [facility] 1 [facility] in 0.4 mg 2-15 tablet ity of sublingual 00:00: under the [place] tablet 00 tongue Medical every 5 Branch (five) minutes as needed for Chest pain. nitroglycer 2019- Yes [id number] .4mg [facility] 1 [facility] in 0.4 mg 2-15 tablet ity of sublingual 00:00: under the [place] tablet 00 tongue Medical every 5 Branch (five) minutes as needed for Chest pain. nitroglycer 2019-[id number] 1 [facility] in 0.4 mg 2-15 tablet ity of sublingual 00:00: under the [place] tablet 00 tongue Medical every 5 Branch (five) minutes as needed for Chest pain. nitroglycer 2019-[id number] 1 [facility] in 0.4 mg 2-15 tablet ity of sublingual 00:00: under the [place] tablet 00 tongue Medical every 5 Branch (five) minutes as needed for Chest pain. nitroglycer 2019-[id number] 1 [facility] in 0.4 mg 2-15 tablet ity of sublingual 00:00: under the [place] tablet 00 tongue Medical every 5 Branch (five) minutes as needed for Chest pain. nitroglycer 2019-[id number] 1 [facility] in 0.4 mg 2-15 tablet ity of sublingual 00:00: under the [place] tablet 00 tongue Medical every 5 Branch (five) minutes as needed for Chest pain. nitroglycer 2019- Yes [id number] .4mg [facility] 1 [facility] in 0.4 mg 2-15 tablet ity of sublingual 00:00: under the [place] tablet 00 tongue Medical every 5 Branch (five) minutes as needed for Chest pain. nitroglycer 2019-[id number] 1 [facility] in 0.4 mg 2-15 tablet ity of sublingual 00:00: under the [place] tablet 00 tongue Medical every 5 Branch (five) minutes as needed for Chest pain. nitroglycer 2019-[id number] 1 [facility] in 0.4 mg 2-15 tablet ity of sublingual 00:00: under the [place] tablet 00 tongue Medical every 5 Branch (five) minutes as needed for Chest pain. nitroglycer 2019-[id number] 1 [facility] in 0.4 mg 2-15 tablet ity of sublingual 00:00: under the [place] tablet 00 tongue Medical every 5 Branch (five) minutes as needed for Chest pain. nitroglycer 2019-[id number] 1 [facility] in 0.4 mg 2-15 tablet ity of sublingual 00:00: under the [place] tablet 00 tongue Medical every 5 Branch (five) minutes as needed for Chest pain. nitroglycer 2019-[id number] 1 [facility] in 0.4 mg 2-15 tablet ity of sublingual 00:00: under the [place] tablet 00 tongue Medical every 5 Branch (five) minutes as needed for Chest pain. nitroglycer 2019-[id number] 1 [facility] in 0.4 mg 2-15 tablet ity of sublingual 00:00: under the [place] tablet 00 tongue Medical every 5 Branch (five) minutes as needed for Chest pain. nitroglycer 2019-[id number] 1 [facility] in 0.4 mg 2-15 tablet ity of sublingual 00:00: under the [place] tablet 00 tongue Medical every 5 Branch (five) minutes as needed for Chest pain. nitroglycer 2019-[id number] 1 [facility] in 0.4 mg 2-15 tablet ity of sublingual 00:00: under the [place] tablet 00 tongue Medical every 5 Branch (five) minutes as needed for Chest pain. nitroglycer 2019- Yes [id number] .4mg [facility] 1 [facility] in 0.4 mg 2-15 tablet ity of sublingual 00:00: under the [place] tablet 00 tongue Medical every 5 Branch (five) minutes as needed for Chest pain. nitroglycer 2019-[id number] 1 [facility] in 0.4 mg 2-15 tablet ity of sublingual 00:00: under the [place] tablet 00 tongue Medical every 5 Branch (five) minutes as needed for Chest pain. nitroglycer 2019-[id number] 1 [facility] in 0.4 mg 2-15 tablet ity of sublingual 00:00: under the [place] tablet 00 tongue Medical every 5 Branch (five) minutes as needed for Chest pain. nitroglycer 2019-[id number] 1 [facility] in 0.4 mg 2-15 tablet ity of sublingual 00:00: under the [place] tablet 00 tongue Medical every 5 Branch (five) minutes as needed for Chest pain. nitroglycer 2019-[id number] 1 [facility] in 0.4 mg 2-15 tablet ity of sublingual 00:00: under the [place] tablet 00 tongue Medical every 5 Branch (five) minutes as needed for Chest pain. nitroglycer 2019-[id number] 1 [facility] in 0.4 mg 2-15 tablet ity of sublingual 00:00: under the [place] tablet 00 tongue Medical every 5 Branch (five) minutes as needed for Chest pain. nitroglycer 2019-[id number] 1 [facility] in 0.4 mg 2-15 tablet ity of sublingual 00:00: under the [place] tablet 00 tongue Medical every 5 Branch (five) minutes as needed for Chest pain. nitroglycer 2019-[id number] 1 [facility] in 0.4 mg 2-15 tablet ity of sublingual 00:00: under the [place] tablet 00 tongue Medical every 5 Branch (five) minutes as needed for Chest pain. nitroglycer 2019- Yes [id number] .4mg [facility] 1 [facility] in 0.4 mg 2-15 tablet ity of sublingual 00:00: under the [place] tablet 00 tongue Medical every 5 Branch (five) minutes as needed for Chest pain. nitroglycer 2019- Yes [id number] .4mg [facility] 1 [facility] in 0.4 mg 2-15 tablet ity of sublingual 00:00: under the [place] tablet 00 tongue Medical every 5 Branch (five) minutes as needed for Chest pain. nitroglycer 2019-[id number] 1 [facility] in 0.4 mg 2-15 tablet ity of sublingual 00:00: under the [place] tablet 00 tongue Medical every 5 Branch (five) minutes as needed for Chest pain. nitroglycer 2019-[id number] 1 [facility] in 0.4 mg 2-15 tablet ity of sublingual 00:00: under the [place] tablet 00 tongue Medical every 5 Branch (five) minutes as needed for Chest pain. nitroglycer 2019-[id number] 1 [facility] in 0.4 mg 2-15 tablet ity of sublingual 00:00: under the [place] tablet 00 tongue Medical every 5 Branch (five) minutes as needed for Chest pain. nitroglycer 2019-[id number] 1 [facility] in 0.4 mg 2-15 tablet ity of sublingual 00:00: under the [place] tablet 00 tongue Medical every 5 Branch (five) minutes as needed for Chest pain. nitroglycer 2019-[id number] 1 [facility] in 0.4 mg 2-15 tablet ity of sublingual 00:00: under the [place] tablet 00 tongue Medical every 5 Branch (five) minutes as needed for Chest pain. nitroglycer 2019-[id number] 1 [facility] in 0.4 mg 2-15 tablet ity of sublingual 00:00: under the [place] tablet 00 tongue Medical every 5 Branch (five) minutes as needed for Chest pain. nitroglycer 2019-[id number] 1 [facility] in 0.4 mg 2-15 tablet ity of sublingual 00:00: under the [place] tablet 00 tongue Medical every 5 Branch (five) minutes as needed for Chest pain. nitroglycer 2020-[id number] 1 [facility] in 0.4 mg 2-15 tablet ity of sublingual 00:00: under the [place] tablet 00 tongue Medical every 5 Branch (five) minutes as needed for Chest pain. nitroglycer 2019- Yes [id number] .4mg [facility] 1 [facility] in 0.4 mg 2-15 tablet ity of sublingual 00:00: under the [place] tablet 00 tongue Medical every 5 Branch (five) minutes as needed for Chest pain. nitroglycer 2019-[id number] 1 [facility] in 0.4 mg 2-15 tablet ity of sublingual 00:00: under the [place] tablet 00 tongue Medical every 5 Branch (five) minutes as needed for Chest pain. nitroglycer 2019-[id number] 1 [facility] in 0.4 mg 2-15 tablet ity of sublingual 00:00: under the [place] tablet 00 tongue Medical every 5 Branch (five) minutes as needed for Chest pain. nitroglycer 2019- Yes [id number] .[address] 1 [facility] in 0.4 mg 2-15 tablet ity of sublingual 00:00: under the [place] tablet 00 tongue Medical every 5 Branch (five) minutes as needed for Chest pain. nitroglycer 2019- Yes [id number] .[address] 1 [facility] in 0.4 mg 2-15 tablet ity of sublingual 00:00: under the [place] tablet 00 tongue Medical every 5 Branch (five) minutes as needed for Chest pain. nitroglycer 2019-[id number] 1 [facility] in 0.4 mg 2-15 tablet ity of sublingual 00:00: under the [place] tablet 00 tongue Medical every 5 Branch (five) minutes as needed for Chest pain. nitroglycer 2019-[id number] 1 [facility] in 0.4 mg 2-15 tablet ity of sublingual 00:00: under the [place] tablet 00 tongue Medical every 5 Branch (five) minutes as needed for Chest pain. nitroglycer 2019-[id number] 1 [facility] in 0.4 mg 2-15 tablet ity of sublingual 00:00: under the [place] tablet 00 tongue Medical every 5 Branch (five) minutes as needed for Chest pain. nitroglycer 2020-[id number] 1 [facility] in 0.4 mg 2-15 tablet ity of sublingual 00:00: under the [place] tablet 00 tongue Medical every 5 Branch (five) minutes as needed for Chest pain. nitroglycer 2019- Yes [id number] .4mg [facility] 1 [facility] in 0.4 mg 2-15 tablet ity of sublingual 00:00: under the [place] tablet 00 tongue Medical every 5 Branch (five) minutes as needed for Chest pain. nitroglycer 2019- Yes [id number] .4mg [facility] 1 [facility] in 0.4 mg 2-15 tablet ity of sublingual 00:00: under the [place] tablet 00 tongue Medical every 5 Branch (five) minutes as needed for Chest pain. nitroglycer 2019-[id number] 1 [facility] in 0.4 mg 2-15 tablet ity of sublingual 00:00: under the [place] tablet 00 tongue Medical every 5 Branch (five) minutes as needed for Chest pain. nitroglycer 2019-[id number] 1 [facility] in 0.4 mg 2-15 tablet ity of sublingual 00:00: under the [place] tablet 00 tongue Medical every 5 Branch (five) minutes as needed for Chest pain. nitroglycer 2019- Yes [id number] .4mg [facility] 1 [facility] in 0.4 mg 2-15 tablet ity of sublingual 00:00: under the [place] tablet 00 tongue Medical every 5 Branch (five) minutes as needed for Chest pain. nitroglycer 2019-[id number] 1 [facility] in 0.4 mg 2-15 tablet ity of sublingual 00:00: under the [place] tablet 00 tongue Medical every 5 Branch (five) minutes as needed for Chest pain. nitroglycer 2019-[id number] 1 [facility] in 0.4 mg 2-15 tablet ity of sublingual 00:00: under the [place] tablet 00 tongue Medical every 5 Branch (five) minutes as needed for Chest pain. nitroglycer 2019-[id number] 1 [facility] in 0.4 mg 2-15 tablet ity of sublingual 00:00: under the [place] tablet 00 tongue Medical every 5 Branch (five) minutes as needed for Chest pain. nitroglycer 2019- Yes [id number] .4mg Place 1 [facility] in 0.4 mg 2-15 tablet ity of sublingual 00:00: under the [place] tablet 00 tongue Medical every 5 Branch (five) minutes as needed for Chest pain. nitroglycer 2019- Yes [id number] .4mg Place 1 [facility] in 0.4 mg 2-15 tablet ity of sublingual 00:00: under the [place] tablet 00 tongue Medical every 5 Branch (five) minutes as needed for Chest pain. nitroglycer 2019- Yes [id number] .4mg Place 1 [facility] in 0.4 mg 2-15 tablet ity of sublingual 00:00: under the [place] tablet 00 tongue Medical every 5 Branch (five) minutes as needed for Chest pain. nitroglycer 2019- Yes [id number] .4mg Place 1 [facility] in 0.4 mg 2-15 tablet ity of sublingual 00:00: under the [place] tablet 00 tongue Medical every 5 Branch (five) minutes as needed for Chest pain. nitroglycer 2019- Yes [id number] .4mg Place 1 [facility] in 0.4 mg 2-15 tablet ity of sublingual 00:00: under the [place] tablet 00 tongue Medical every 5 Branch (five) minutes as needed for Chest pain. nitroglycer 2019- Yes [id number] .4mg Place 1 [facility] in 0.4 mg 2-15 tablet ity of sublingual 00:00: under the [place] tablet 00 tongue Medical every 5 Branch (five) minutes as needed for Chest pain. nitroglycer 2019- Yes [id number] .4mg Place 1 [facility] in 0.4 mg 2-15 tablet ity of sublingual 00:00: under the [place] tablet 00 tongue Medical every 5 Branch (five) minutes as needed for Chest pain. nitroglycer 2019-[id number] 1 [facility] in 0.4 mg 2-15 tablet ity of sublingual 00:00: under the [place] tablet 00 tongue Medical every 5 Branch (five) minutes as needed for Chest pain. nitroglycer 2019- Yes [id number] .4mg Place 1 [facility] in 0.4 mg 2-15 tablet ity of sublingual 00:00: under the [place] tablet 00 tongue Medical every 5 Branch (five) minutes as needed for Chest pain. nitroglycer 2019- Yes [id number] .4mg Place 1 [facility] in 0.4 mg 2-15 tablet ity of sublingual 00:00: under the [place] tablet 00 tongue Medical every 5 Branch (five) minutes as needed for Chest pain. nitroglycer 2019- Yes [id number] .4mg Place 1 [facility] in 0.4 mg 2-15 tablet ity of sublingual 00:00: under the [place] tablet 00 tongue Medical every 5 Branch (five) minutes as needed for Chest pain. nitroglycer 2019- Yes [id number] .4mg Place 1 [facility] in 0.4 mg 2-15 tablet ity of sublingual 00:00: under the [place] tablet 00 tongue Medical every 5 Branch (five) minutes as needed for Chest pain. nitroglycer 2019- Yes [id number] .4mg Place 1 [facility] in 0.4 mg 2-15 tablet ity of sublingual 00:00: under the [place] tablet 00 tongue Medical every 5 Branch (five) minutes as needed for Chest pain. nitroglycer 2019- Yes [id number] .4mg Place 1 [facility] in 0.4 mg 2-15 tablet ity of sublingual 00:00: under the [place] tablet 00 tongue Medical every 5 Branch (five) minutes as needed for Chest pain. nitroglycer 2019-[id number] 1 [facility] in 0.4 mg 2-15 tablet ity of sublingual 00:00: under the [place] tablet 00 tongue Medical every 5 Branch (five) minutes as needed for Chest pain. nitroglycer 2019- Yes [id number] .4mg Place 1 [facility] in 0.4 mg 2-15 tablet ity of sublingual 00:00: under the [place] tablet 00 tongue Medical every 5 Branch (five) minutes as needed for Chest pain. nitroglycer 2019-[id number] 1 [facility] in 0.4 mg 2-15 tablet ity of sublingual 00:00: under the [place] tablet 00 tongue Medical every 5 Branch (five) minutes as needed for Chest pain. nitroglycer 2019- Yes [id number] .4mg Place 1 [facility] in 0.4 mg 2-15 tablet ity of sublingual 00:00: under the [place] tablet 00 tongue Medical every 5 Branch (five) minutes as needed for Chest pain. nitroglycer 2019- Yes [id number] .4mg Place 1 [facility] in 0.4 mg 2-15 tablet ity of sublingual 00:00: under the [place] tablet 00 tongue Medical every 5 Branch (five) minutes as needed for Chest pain. nitroglycer 2019- Yes [id number] .4mg Place 1 [facility] in 0.4 mg 2-15 tablet ity of sublingual 00:00: under the [place] tablet 00 tongue Medical every 5 Branch (five) minutes as needed for Chest pain. nitroglycer 2019- Yes [id number] .4mg Place 1 [facility] in 0.4 mg 2-15 tablet ity of sublingual 00:00: under the [place] tablet 00 tongue Medical every 5 Branch (five) minutes as needed for Chest pain. nitroglycer 2019- Yes [id number] .4mg Place 1 [facility] in 0.4 mg 2-15 tablet ity of sublingual 00:00: under the [place] tablet 00 tongue Medical every 5 Branch (five) minutes as needed for Chest pain. nitroglycer 2019- Yes [id number] .4mg Place 1 [facility] in 0.4 mg 2-15 tablet ity of sublingual 00:00: under the [place] tablet 00 tongue Medical every 5 Branch (five) minutes as needed for Chest pain. nitroglycer 2019-[id number] 1 [facility] in 0.4 mg 2-15 tablet ity of sublingual 00:00: under the [place] tablet 00 tongue Medical every 5 Branch (five) minutes as needed for Chest pain. nitroglycer 2019-[id number] 1 [facility] in 0.4 mg 2-15 tablet ity of sublingual 00:00: under the [place] tablet 00 tongue Medical every 5 Branch (five) minutes as needed for Chest pain. nitroglycer 2019-[id number] 1 [facility] in 0.4 mg 2-15 tablet ity of sublingual 00:00: under the [place] tablet 00 tongue Medical every 5 Branch (five) minutes as needed for Chest pain. nitroglycer 2019-[id number] 1 [facility] in 0.4 mg 2-15 tablet ity of sublingual 00:00: under the [place] tablet 00 tongue Medical every 5 Branch (five) minutes as needed for Chest pain. nitroglycer 2019-[id number] 1 [facility] in 0.4 mg 2-15 tablet ity of sublingual 00:00: under the [place] tablet 00 tongue Medical every 5 Branch (five) minutes as needed for Chest pain. nitroglycer 2019-[id number] 1 [facility] in 0.4 mg 2-15 tablet ity of sublingual 00:00: under the [place] tablet 00 tongue Medical every 5 Branch (five) minutes as needed for Chest pain. nitroglycer 2019-[id number] 1 [facility] in 0.4 mg 2-15 tablet ity of sublingual 00:00: under the [place] tablet 00 tongue Medical every 5 Branch (five) minutes as needed for Chest pain. nitroglycer 2019-[id number] 1 [facility] in 0.4 mg 2-15 tablet ity of sublingual 00:00: under the [place] tablet 00 tongue Medical every 5 Branch (five) minutes as needed for Chest pain. nitroglycer 2019-[id number] 1 [facility] in 0.4 mg 2-15 tablet ity of sublingual 00:00: under the [place] tablet 00 tongue Medical every 5 Branch (five) minutes as needed for Chest pain. docusate 2019-09- No [id number] 100mg Take 1 U nivers (COLACE) 10-11-04 capsule by ity of 100 mg 00:00: 00:00 mouth 2 [place] capsule 00 :00 (two) Medical times Branch daily as needed for Constipati on. QUEtiapine 2019- No [id number] 400mg Take 1 [facility] 400 mg 05-27 12-11 tablet by ity of tablet 00:00: 00:00 mouth at [place] 00 :00 bedtime. Medical Branch ibuprofen 2019- No [id number] 800mg Take 1 [facility] 800 mg 05-25 12-11 tablet by ity of tablet 00:00: 00:00 mouth [place] 00 :00 every 8 Medical (eight) Branch hours as needed for Pain (scale 1-3). prasugrel 2019- No [id number] 10mg Take 1 U nivers 10 mg 7-29 12-11 tablet by ity of tablet 00:00: 00:00 mouth [place] 00 :00 daily. Medical Branch LEVOTHYROXI 2019- No [id number] TAKE 1 [facility] NE 175 mcg 04-01 TABLET BY ity of tablet 00:00: 00:00 MOUTH [place] 00 :00 EVERY DAY Medical Branch OZEMPIC No [id number] .25mg inject Un [place] 0.25 mg or 03-27 0.25 mg ity o f 0.5 mg(2 00:00: 00:00 under the [place] as mg/1.5 mL) 00 :00 skin Medical PnIj weekly. Branch metFORMIN No [id number] 500mg Take 0.5 [facility] 1,000 mg 03-27 tablets by ity of tablet 00:00: 00:00 mouth 3 [place] 00 :00 (three) Medical times Branch daily with meals. aspirin 81 2019- No [id number] 81mg Take 1 [facility] mg chewable 03-27 tablet by it y of tablet 00:00: 00:00 mouth [place] 00 :00 daily. Medical Branch acetaminoph No [id number] 650mg Take 2 [facility] en 325 mg 03-05- tablets by ity of tablet 00:00: 00:00 mouth [place] 00 :00 every 8 Medical (eight) Branch hours as needed for Pain (scale 1-3). terbinafine No [id number] Apply to Univers HCl 1 % 02-24 area(s) 2 ity of cream 00:00: 00:00 (two) [place] 00 :00 times Medical daily. Branch ramelteon 8 2019- No [id number] 8mg Take 1 [facility] mg tablet -21 09-17 tablet by ity of 00:00: 00:00 mouth at [place] 00 :00 bedtime as Medical needed for Branch Insomnia. DULoxetine 2019- No [id number] 60mg Take 1 [facility] 60 mg 5-28 12-17 capsule by ity of capsule 00:00: 00:00 mouth [place] 00 :00 daily. Medical Branch gabapentin 2019- No [id number] 300mg Take 1 [facility] 300 mg 5-28 12-17 capsule by ity of capsule 00:00: 00:00 mouth 2 [place] 00 :00 (two) Medical times Branch daily. atorvastati 2019- No [id number] 40mg Take 1 [facility] n 40 mg 5-18 12-11 tablet by ity of tablet 00:00: 00:00 mouth at [place] 00 :00 bedtime. Medical Branch furosemide 2019- No [id number] 40mg Take 1 [facility] 40 mg 5-18 12-11 tablet by ity of tablet 00:00: 00:00 mouth [place] 00 :00 every Medical morning Branch and evening. spironolact 2019- No [id number] 25mg Take 1 [facility] one 25 mg 5-18 12-11 tablet by ity of tablet 00:00: 00:00 mouth [place] 00 :00 daily. Medical Branch KCL 10 mEq 2019- No 20meq Take 2 Uni vers tablet 2-27 12-11 tablets by ity of 00:00: 00:00 mouth 2 [place] 00 :00 (two) Medical times Branch daily. metoprolol No [id number] 50mg Take 1 [facility] tartrate 50 2-25 12-11 tablet by it y of mg tablet 00:00: 00:00 [place] 00 :[place] (two) Medical times Branch daily. omeprazole 2020- No [id number] 40mg Take 1 [facility] 40 mg 2-19 04-06 capsule by ity of capsule 00:00: 00:00 mouth [place] 00 :00 daily. Medical Branch loratadine 2020- No [id number] 10mg Take 1 [facility] 10 mg 2-19 -19 tablet by ity of tablet 00:00: 00:00 mouth at [place] 00 :00 bedtime. Medical Branch Immunizations Ordered Filled Date Status Comments Source Immunization Name Immunization Name TDAP 2023-02-13 Completed [facility] of 00:00:00 [facility] TDAP 2023-02-13 Completed University of 00:00:00 [facility] TDAP 2023-02-13 Completed University of 00:00:00 [facility] TDAP 2023-02-13 Completed University of 00:00:00 [facility] TDAP 2023-02-13 Completed University of 00:00:00 [facility] TDAP 2023-02-13 Completed [facility] of 00:00:00 [place] [facility] TDAP 2023-02-13 Completed [facility] of 00:00:00 [place] [facility] TDAP 2023-02-13 Completed [facility] of 00:00:00 [place] [facility] TDAP 2023-02-13 Completed [facility] of 00:00:00 [place] [facility] TDAP 2023-02-13 Completed [facility] of 00:00:00 [place] [facility] TDAP 2023-02-13 Completed [facility] of 00:00:00 [place] [facility] TDAP 2023-02-13 Completed [facility] of 00:00:00 [place] [facility] TDAP 2023-02-13 Completed [facility] of 00:00:00 [place] [facility] TDAP 2023-02-13 Completed [facility] of 00:00:00 [place] [facility] TDAP 2023-02-13 Completed University of 00:00:00 [place] [facility] TDAP 2023-02-13 Completed [facility] of 00:00:00 [place] [facility] TDAP 2023-02-13 Completed University of 00:00:00 [facility] Branch TDAP 2023-02-13 Completed University of 00:00:00 [place] [facility] TDAP 2023-02-13 Completed University of 00:00:00 [place] [facility] TDAP 2023-02-13 Completed University of 00:00:00 [place] [facility] TDAP 2023-02-13 Completed University of 00:00:00 [place] [facility] TDAP 2023-02-13 Completed University of 00:00:00 [place] [facility] TDAP 2023-02-13 Completed University of 00:00:00 [facility] Branch TDAP 2023-02-13 Completed University of 00:00:00 [place] [facility] TDAP 2023-02-13 Completed University of 00:00:00 [place] [facility] TDAP 2023-02-13 Completed University of 00:00:00 [facility] Branch TDAP 2023-02-13 Completed University of 00:00:00 [facility] Influenza Virus 2022-07-04 Completed Universit y of Vaccine 00:00:00 [facility] Influenza Virus 2022-07-04 Completed Universit y of Vaccine 00:00:00 [facility] Influenza Virus 2022-07-04 Completed Universit y of Vaccine 00:00:00 [facility] Influenza Virus 2022-07-04 Completed Universit y of Vaccine 00:00:00 [place] [facility] Influenza Virus 2022-07-04 Completed Universit y of Vaccine 00:00:00 [facility] Influenza Virus 2022-07-04 Completed Universit y of Vaccine 00:00:00 [facility] Branch Influenza Virus 2022-07-04 Completed Universit y of Vaccine 00:00:00 [facility] Branch Influenza Virus 2022-07-04 Completed Universit y of Vaccine 00:00:00 [facility] Branch Influenza Virus 2022-07-04 Completed Universit y of Vaccine 00:00:00 [facility] Branch Influenza Virus 2022-07-04 Completed Universit y of Vaccine 00:00:00 [facility] Influenza Virus 2022-07-04 Completed Universit y of Vaccine 00:00:00 [facility] Influenza Virus 2022-07-04 Completed Universit y of Vaccine 00:00:00 [facility] Influenza Virus 2022-07-04 Completed Universit y of Vaccine 00:00:00 [facility] Influenza Virus 2022-07-04 Completed Universit y of Vaccine 00:00:00 [facility] Influenza Virus 2022-07-04 Completed Universit y of Vaccine 00:00:00 [facility] Branch Influenza Virus 2022-07-04 Completed Universit y of Vaccine 00:00:00 [facility] Influenza Virus 2022-07-04 Completed Universit y of Vaccine 00:00:00 [facility] Branch Influenza Virus 2022-07-04 Completed Universit y of Vaccine 00:00:00 [facility] Branch Influenza Virus 2022-07-04 Completed Universit y of Vaccine 00:00:00 [facility] Influenza Virus 2022-07-04 Completed Universit y of Vaccine 00:00:00 [facility] Branch Influenza Virus 2022-07-04 Completed Universit y of Vaccine 00:00:00 [facility] Branch Influenza Virus 2022-07-04 Completed Universit y of Vaccine 00:00:00 [facility] Branch Influenza Virus 2022-07-04 Completed Universit y of Vaccine 00:00:00 [facility] Branch Influenza Virus 2022-07-04 Completed Universit y of Vaccine 00:00:00 [place] [facility] Branch Influenza Virus 2022-07-04 Completed Universit y of Vaccine 00:00:00 [facility] Branch Influenza Virus 2022-07-04 Completed Universit y of Vaccine 00:00:00 [facility] Branch Influenza Virus 2022-07-04 Completed Universit y of Vaccine 00:00:00 [facility] Influenza Virus 2022-07-04 Completed Universit y of Vaccine 00:00:00 [facility] Influenza Virus 2022-07-04 Completed Universit y of Vaccine 00:00:00 [facility] Influenza Virus 2022-07-04 Completed Universit y of Vaccine 00:00:00 [facility] Influenza Virus 2022-07-04 Completed Universit y of Vaccine 00:00:00 [facility] Influenza Virus 2022-07-04 Completed Universit y of Vaccine 00:00:00 [facility] Influenza Virus 2022-07-04 Completed Universit y of Vaccine 00:00:00 [facility] Influenza Virus 2022-07-04 Completed Universit y of Vaccine 00:00:00 [facility] Influenza Virus 2022-07-04 Completed Universit y of Vaccine 00:00:00 [facility] Influenza Virus 2022-07-04 Completed Universit y of Vaccine 00:00:00 [facility] Influenza Virus 2022-07-04 Completed Universit y of Vaccine 00:00:00 [facility] Influenza Virus 2022-07-04 Completed Universit y of Vaccine 00:00:00 [facility] Influenza Virus 2022-07-04 Completed Universit y of Vaccine 00:00:00 [facility] Influenza Virus 2022-07-04 Completed Universit y of Vaccine 00:00:00 [facility] Influenza Virus 2022-07-04 Completed Universit y of Vaccine 00:00:00 [facility] Influenza Virus 2022-07-04 Completed Universit y of Vaccine 00:00:00 [facility] Influenza Virus 2022-07-04 Completed Universit y of Vaccine 00:00:00 [facility] Influenza Virus 2022-07-04 Completed Universit y of Vaccine 00:00:00 [facility] Influenza Virus 2022-07-04 Completed Universit y of Vaccine 00:00:00 [facility] Influenza Virus 2022-07-04 Completed Universit y of Vaccine 00:00:00 [facility] Influenza Virus 2022-07-04 Completed Universit y of Vaccine 00:00:00 [facility] Influenza Virus 2022-07-04 Completed Universit y of Vaccine 00:00:00 [facility] Influenza Virus 2022-07-04 Completed Universit y of Vaccine 00:00:00 [facility] Influenza Virus 2022-07-04 Completed Universit y of Vaccine 00:00:00 [facility] Influenza Virus 2022-07-04 Completed Universit y of Vaccine 00:00:00 [facility] Influenza Virus 2022-07-04 Completed Universit y of Vaccine 00:00:00 [facility] Influenza Virus 2022-07-04 Completed Universit y of Vaccine 00:00:00 [facility] Influenza Virus 2022-07-04 Completed Universit y of Vaccine 00:00:00 [facility] Influenza Virus 2022-07-04 Completed Universit y of Vaccine 00:00:00 [facility] Branch Influenza Virus 2022-07-04 Completed Universit y of Vaccine 00:00:00 [facility] Branch Influenza Virus 2022-07-04 Completed Universit y of Vaccine 00:00:00 [facility] Branch Influenza Virus 2022-07-04 Completed Universit y of Vaccine 00:00:00 [facility] Branch Influenza Virus 2022-07-04 Completed Universit y of Vaccine 00:00:00 [facility] Influenza Virus 2022-07-04 Completed Universit y of Vaccine 00:00:00 [facility] Influenza Virus 2022-07-04 Completed Universit y of Vaccine 00:00:00 [facility] Influenza Virus 2022-07-04 Completed Universit y of Vaccine 00:00:00 [facility] Influenza Virus 2022-07-04 Completed Universit y of Vaccine 00:00:00 [facility] Influenza Virus 2022-07-04 Completed Universit y of Vaccine 00:00:00 [facility] Influenza Virus 2022-07-04 Completed Universit y of Vaccine 00:00:00 [facility] Influenza Virus 2022-07-04 Completed Universit y of Vaccine 00:00:00 [facility] Influenza Virus 2022-07-04 Completed Universit y of Vaccine 00:00:00 [facility] Influenza Virus 2022-07-04 Completed Universit y of Vaccine 00:00:00 [facility] Influenza Virus 2022-07-04 Completed Universit y of Vaccine 00:00:00 [place] [facility] Branch Influenza Virus 2022-07-04 Completed Universit y of Vaccine 00:00:00 [facility] Branch Influenza Virus 2022-07-04 Completed Universit y of Vaccine 00:00:00 [facility] Branch Influenza Virus 2022-07-04 Completed Universit y of Vaccine 00:00:00 [facility] Branch Influenza Virus 2022-07-04 Completed Universit y of Vaccine 00:00:00 [facility] Branch Influenza Virus 2022-07-04 Completed Universit y of Vaccine 00:00:00 [place] [facility] Branch Influenza Virus 2022-07-04 Completed Universit y of Vaccine 00:00:00 [place] [facility] Branch Influenza Virus 2022-07-04 Completed Universit y of Vaccine 00:00:00 [facility] Branch Influenza Virus 2022-07-04 Completed Universit y of Vaccine 00:00:00 [place] [facility] Branch Influenza Virus 2022-07-04 Completed Universit y of Vaccine 00:00:00 [facility] Branch Influenza Virus 2022-07-04 Completed Universit y of Vaccine 00:00:00 [facility] Branch Influenza Virus 2022-07-04 Completed Universit y of Vaccine 00:00:00 [facility] Branch Influenza Virus 2022-07-04 Completed Universit y of Vaccine 00:00:00 [facility] Branch Influenza Virus 2022-07-04 Completed Universit y of Vaccine 00:00:00 [facility] Branch Influenza Virus 2022-07-04 Completed Universit y of Vaccine 00:00:00 [place] [facility] Branch Influenza Virus 2022-07-04 Completed Universit y of Vaccine 00:00:00 [facility] Branch Influenza Virus 2022-07-04 Completed Universit y of Vaccine 00:00:00 [facility] Branch Influenza Virus 2022-07-04 Completed Universit y of Vaccine 00:00:00 [place] [facility] Branch Influenza Virus 2022-07-04 Completed Universit y of Vaccine 00:00:00 [facility] Branch Influenza Virus 2022-07-04 Completed Universit y of Vaccine 00:00:00 [facility] Branch Influenza Virus 2022-07-04 Completed Universit y of Vaccine 00:00:00 [place] [facility] Branch Influenza Virus 2022-07-04 Completed Universit y of Vaccine 00:00:00 [facility] Branch Influenza Virus 2022-07-04 Completed Universit y of Vaccine 00:00:00 [place] [facility] Branch Influenza Virus 2022-07-04 Completed Universit y of Vaccine 00:00:00 [place] [facility] Branch Influenza Virus 2022-07-04 Completed Universit y of Vaccine 00:00:00 [place] [facility] Branch Influenza Virus 2022-07-04 Completed Universit y of Vaccine 00:00:00 [place] [facility] Branch Influenza Virus 2022-07-04 Completed Universit y of Vaccine 00:00:00 [place] [facility] Branch Influenza Virus 2022-07-04 Completed Universit y of Vaccine 00:00:00 [facility] SARS-COV-2 COVID-19 2021-07-28 Completed Unive rsity of PFIZER VACCINE 00:00:00 [facility] Influenza Virus 2021-07-28 Completed Universit y of Vaccine 00:00:00 [facility] SARS-COV-2 COVID-19 2021-07-28 Completed Unive rsity of PFIZER VACCINE 00:00:00 [facility] Influenza Virus 2021-07-28 Completed Universit y of Vaccine 00:00:00 [facility] SARS-COV-2 COVID-19 2021-07-28 Completed Unive rsity of PFIZER VACCINE 00:00:00 [facility] Influenza Virus 2021-07-28 Completed Universit y of Vaccine 00:00:00 [facility] SARS-COV-2 COVID-19 2021-07-28 Completed Unive rsity of PFIZER VACCINE 00:00:00 [facility] Influenza Virus 2021-07-28 Completed Universit y of Vaccine 00:00:00 [facility] SARS-COV-2 COVID-19 2021-07-28 Completed Unive rsity of PFIZER VACCINE 00:00:00 [facility] Influenza Virus 2021-07-28 Completed Universit y of Vaccine 00:00:00 [facility] SARS-COV-2 COVID-19 2021-07-28 Completed Unive rsity of PFIZER VACCINE 00:00:00 [facility] Influenza Virus 2021-07-28 Completed Universit y of Vaccine 00:00:00 [facility] SARS-COV-2 COVID-19 2021-07-28 Completed Unive rsity of PFIZER VACCINE 00:00:00 [facility] Influenza Virus 2021-07-28 Completed Universit y of Vaccine 00:00:00 [facility] SARS-COV-2 COVID-19 2021-07-28 Completed Unive rsity of PFIZER VACCINE 00:00:00 [facility] Influenza Virus 2021-07-28 Completed Universit y of Vaccine 00:00:00 [facility] SARS-COV-2 COVID-19 2021-07-28 Completed [facility] PFIZER VACCINE 00:00:00 [facility] Influenza Virus 2021-07-28 Completed [facility]ine 00:00:00 [facility] SARS-COV-2 COVID-19 2021-07-28 Completed [facility] PFIZER VACCINE 00:00:00 [facility] Influenza Virus 2021-07-28 Completed [facility] Vaccine 00:00:00 [facility] SARS-COV-2 COVID-19 2021-07-28 Completed [facility] PFIZER VACCINE 00:00:00 [facility] Influenza Virus 2021-07-28 Completed [facility] Vaccine 00:00:00 [facility] SARS-COV-2 COVID-19 2021-07-28 Completed [facility] PFIZER VACCINE 00:00:00 [facility] Influenza Virus 2021-07-28 Completed [facility] Vaccine 00:00:00 [facility] SARS-COV-2 COVID-19 2021-07-28 Completed [facility] PFIZER VACCINE 00:00:00 [facility] Influenza Virus 2021-07-28 Completed [facility] Vaccine 00:00:00 [facility] SARS-COV-2 COVID-19 2021-07-28 Completed [facility] PFIZER VACCINE 00:00:00 [facility] Influenza Virus 2021-07-28 Completed [facility] Vaccine 00:00:00 [facility] SARS-COV-2 COVID-19 2021-07-28 Completed [facility] PFIZER VACCINE 00:00:00 [facility] Influenza Virus 2021-07-28 Completed [facility] Vaccine 00:00:00 [facility] SARS-COV-2 COVID-19 2021-07-28 Completed [facility] PFIZER VACCINE 00:00:00 [facility] Influenza Virus 2021-07-28 Completed [facility] Vaccine 00:00:00 [facility] SARS-COV-2 COVID-19 2021-07-28 Completed [facility] PFIZER VACCINE 00:00:00 [facility] Influenza Virus 2021-07-28 Completed [facility] Vaccine 00:00:00 [facility] SARS-COV-2 COVID-19 2021-07-28 Completed [facility] PFIZER VACCINE 00:00:00 [facility] Influenza Virus 2021-07-28 Completed [facility] Vaccine 00:00:00 [facility] SARS-COV-2 COVID-19 2021-07-28 Completed [facility] PFIZER VACCINE 00:00:00 [facility] Influenza Virus 2021-07-28 Completed [facility] Vaccine 00:00:00 [facility] SARS-COV-2 COVID-19 2021-07-28 Completed [facility] PFIZER VACCINE 00:00:00 [facility] Influenza Virus 2021-07-28 Completed [facility] Vaccine 00:00:00 [facility] SARS-COV-2 COVID-19 2021-07-28 Completed [facility] PFIZER VACCINE 00:00:00 [facility] Influenza Virus 2021-07-28 Completed [facility] Vaccine 00:00:00 [facility] SARS-COV-2 COVID-19 2021-07-28 Completed [facility] PFIZER VACCINE 00:00:00 [facility] Influenza Virus 2021-07-28 Completed [facility] Vaccine 00:00:00 [facility] SARS-COV-2 COVID-19 2021-07-28 Completed [facility] PFIZER VACCINE 00:00:00 [facility] Influenza Virus 2021-07-28 Completed [facility] Vaccine 00:00:00 [facility] SARS-COV-2 COVID-19 2021-07-28 Completed [facility] PFIZER VACCINE 00:00:00 [facility] Influenza Virus 2021-07-28 Completed [facility] Vaccine 00:00:00 [facility] SARS-COV-2 COVID-19 2021-07-28 Completed [facility] PFIZER VACCINE 00:00:00 [facility] Influenza Virus 2021-07-28 Completed [facility] Vaccine 00:00:00 [facility] SARS-COV-2 COVID-19 2021-07-28 Completed [facility] PFIZER VACCINE 00:00:00 [facility] Influenza Virus 2021-07-28 Completed [facility] Vaccine 00:00:00 [facility] SARS-COV-2 COVID-19 2021-07-28 Completed [facility] PFIZER VACCINE 00:00:00 [facility] Influenza Virus 2021-07-28 Completed [facility] Vaccine 00:00:00 [facility] SARS-COV-2 COVID-19 2021-07-28 Completed [facility] PFIZER VACCINE 00:00:00 [facility] Influenza Virus 2021-07-28 Completed [facility] Vaccine 00:00:00 [facility] SARS-COV-2 COVID-19 2021-07-28 Completed [facility] PFIZER VACCINE 00:00:00 [facility] Influenza Virus 2021-07-28 Completed [facility] Vaccine 00:00:00 [facility] SARS-COV-2 COVID-19 2021-07-28 Completed [facility] PFIZER VACCINE 00:00:00 [facility] Influenza Virus 2021-07-28 Completed [facility] Vaccine 00:00:00 [facility] SARS-COV-2 COVID-19 2021-07-28 Completed [facility] PFIZER VACCINE 00:00:00 [facility] Influenza Virus 2021-07-28 Completed [facility] Vaccine 00:00:00 [facility] SARS-COV-2 COVID-19 2021-07-28 Completed [facility] PFIZER VACCINE 00:00:00 [facility] Influenza Virus 2021-07-28 Completed [facility] Vaccine 00:00:00 [facility] SARS-COV-2 COVID-19 2021-07-28 Completed [facility] PFIZER VACCINE 00:00:00 [facility] Influenza Virus 2021-07-28 Completed [facility] Vaccine 00:00:00 [facility] SARS-COV-2 COVID-19 2021-07-28 Completed [facility] PFIZER VACCINE 00:00:00 [facility] Influenza Virus 2021-07-28 Completed [facility] Vaccine 00:00:00 [facility] SARS-COV-2 COVID-19 2021-07-28 Completed [facility] PFIZER VACCINE 00:00:00 [facility] Influenza Virus 2021-07-28 Completed [facility] Vaccine 00:00:00 [facility] SARS-COV-2 COVID-19 2021-07-28 Completed [facility] PFIZER VACCINE 00:00:00 [facility] Influenza Virus 2021-07-28 Completed [facility] Vaccine 00:00:00 [facility] SARS-COV-2 COVID-19 2021-07-28 Completed [facility] PFIZER VACCINE 00:00:00 [facility] Influenza Virus 2021-07-28 Completed [facility] Vaccine 00:00:00 [facility] SARS-COV-2 COVID-19 2021-07-28 Completed [facility] PFIZER VACCINE 00:00:00 [facility] Influenza Virus 2021-07-28 Completed [facility] Vaccine 00:00:00 [facility] SARS-COV-2 COVID-19 2021-07-28 Completed [facility] PFIZER VACCINE 00:00:00 [facility] Influenza Virus 2021-07-28 Completed [facility] Vaccine 00:00:00 [facility] SARS-COV-2 COVID-19 2021-07-28 Completed [facility] PFIZER VACCINE 00:00:00 [facility] Influenza Virus 2021-07-28 Completed [facility] Vaccine 00:00:00 [facility] SARS-COV-2 COVID-19 2021-07-28 Completed [facility] PFIZER VACCINE 00:00:00 [facility] Influenza Virus 2021-07-28 Completed [facility] Vaccine 00:00:00 [facility] SARS-COV-2 COVID-19 2021-07-28 Completed [facility] PFIZER VACCINE 00:00:00 [facility] Influenza Virus 2021-07-28 Completed [facility] Vaccine 00:00:00 [facility] SARS-COV-2 COVID-19 2021-07-28 Completed [facility] PFIZER VACCINE 00:00:00 [facility] Influenza Virus 2021-07-28 Completed [facility] Vaccine 00:00:00 [facility] SARS-COV-2 COVID-19 2021-07-28 Completed [facility] PFIZER VACCINE 00:00:00 [facility] Influenza Virus 2021-07-28 Completed [facility] Vaccine 00:00:00 [facility] SARS-COV-2 COVID-19 2021-07-28 Completed [facility] PFIZER VACCINE 00:00:00 [facility] Influenza Virus 2021-07-28 Completed [facility] Vaccine 00:00:00 [facility] SARS-COV-2 COVID-19 2021-07-28 Completed [facility] PFIZER VACCINE 00:00:00 [facility] Influenza Virus 2021-07-28 Completed [facility] Vaccine 00:00:00 [facility] SARS-COV-2 COVID-19 2021-07-28 Completed [facility] PFIZER VACCINE 00:00:00 [facility] Influenza Virus 2021-07-28 Completed [facility] Vaccine 00:00:00 [facility] SARS-COV-2 COVID-19 2021-07-28 Completed [facility] PFIZER VACCINE 00:00:00 [facility] Influenza Virus 2021-07-28 Completed [facility] Vaccine 00:00:00 [facility] SARS-COV-2 COVID-19 2021-07-28 Completed [facility] PFIZER VACCINE 00:00:00 [facility] Influenza Virus 2021-07-28 Completed [facility] Vaccine 00:00:00 [facility] SARS-COV-2 COVID-19 2021-07-28 Completed [facility] PFIZER VACCINE 00:00:00 [facility] Influenza Virus 2021-07-28 Completed [facility] Vaccine 00:00:00 [facility] SARS-COV-2 COVID-19 2021-07-28 Completed [facility] PFIZER VACCINE 00:00:00 [facility] Influenza Virus 2021-07-28 Completed [facility] Vaccine 00:00:00 [facility] SARS-COV-2 COVID-19 2021-07-28 Completed [facility] PFIZER VACCINE 00:00:00 [facility] Influenza Virus 2021-07-28 Completed [facility] Vaccine 00:00:00 [facility] SARS-COV-2 COVID-19 2021-07-28 Completed [facility] PFIZER VACCINE 00:00:00 [facility] Influenza Virus 2021-07-28 Completed [facility] Vaccine 00:00:00 [facility] SARS-COV-2 COVID-19 2021-07-28 Completed [facility] PFIZER VACCINE 00:00:00 [facility] Influenza Virus 2021-07-28 Completed [facility] Vaccine 00:00:00 [facility] SARS-COV-2 COVID-19 2021-07-28 Completed [facility] PFIZER VACCINE 00:00:00 [facility] Influenza Virus 2021-07-28 Completed [facility] Vaccine 00:00:00 [facility] SARS-COV-2 COVID-19 2021-07-28 Completed [facility] PFIZER VACCINE 00:00:00 [facility] Influenza Virus 2021-07-28 Completed [facility] Vaccine 00:00:00 [facility] SARS-COV-2 COVID-19 2021-07-28 Completed [facility] PFIZER VACCINE 00:00:00 [facility] Influenza Virus 2021-07-28 Completed [facility] Vaccine 00:00:00 [facility] SARS-COV-2 COVID-19 2021-07-28 Completed [facility] PFIZER VACCINE 00:00:00 [facility] Influenza Virus 2021-07-28 Completed [facility] Vaccine 00:00:00 [facility] SARS-COV-2 COVID-19 2021-07-28 Completed [facility] PFIZER VACCINE 00:00:00 [facility] Influenza Virus 2021-07-28 Completed [facility] Vaccine 00:00:00 [facility] SARS-COV-2 COVID-19 2021-07-28 Completed [facility] PFIZER VACCINE 00:00:00 [facility] Influenza Virus 2021-07-28 Completed [facility] Vaccine 00:00:00 [facility] SARS-COV-2 COVID-19 2021-07-28 Completed [facility] PFIZER VACCINE 00:00:00 [facility] Influenza Virus 2021-07-28 Completed [facility] Vaccine 00:00:00 [facility] SARS-COV-2 COVID-19 2021-07-28 Completed [facility] PFIZER VACCINE 00:00:00 [facility] Influenza Virus 2021-07-28 Completed [facility] Vaccine 00:00:00 [facility] SARS-COV-2 COVID-19 2021-07-28 Completed [facility] PFIZER VACCINE 00:00:00 [facility] Influenza Virus 2021-07-28 Completed [facility] Vaccine 00:00:00 [facility] SARS-COV-2 COVID-19 2021-07-28 Completed [facility] PFIZER VACCINE 00:00:00 [facility] Influenza Virus 2021-07-28 Completed [facility] Vaccine 00:00:00 [facility] SARS-COV-2 COVID-19 2021-07-28 Completed [facility] PFIZER VACCINE 00:00:00 [facility] Influenza Virus 2021-07-28 Completed [facility] Vaccine 00:00:00 [facility] SARS-COV-2 COVID-19 2021-07-28 Completed [facility] PFIZER VACCINE 00:00:00 [facility] Influenza Virus 2021-07-28 Completed [facility] Vaccine 00:00:00 [facility] SARS-COV-2 COVID-19 2021-07-28 Completed [facility] PFIZER VACCINE 00:00:00 [facility] Influenza Virus 2021-07-28 Completed [facility] Vaccine 00:00:00 [facility] SARS-COV-2 COVID-19 2021-07-28 Completed [facility] PFIZER VACCINE 00:00:00 [facility] Influenza Virus 2021-07-28 Completed [facility] Vaccine 00:00:00 [facility] SARS-COV-2 COVID-19 2021-07-28 Completed [facility] PFIZER VACCINE 00:00:00 [facility] Influenza Virus 2021-07-28 Completed [facility] Vaccine 00:00:00 [facility] SARS-COV-2 COVID-19 2021-07-28 Completed [facility] PFIZER VACCINE 00:00:00 [facility] Influenza Virus 2021-07-28 Completed [facility] Vaccine 00:00:00 [facility] SARS-COV-2 COVID-19 2021-07-28 Completed [facility] PFIZER VACCINE 00:00:00 [facility] Influenza Virus 2021-07-28 Completed [facility] Vaccine 00:00:00 [facility] SARS-COV-2 COVID-19 2021-07-28 Completed [facility] PFIZER VACCINE 00:00:00 [facility] Influenza Virus 2021-07-28 Completed [facility] Vaccine 00:00:00 [facility] SARS-COV-2 COVID-19 2021-07-28 Completed [facility] PFIZER VACCINE 00:00:00 [facility] Influenza Virus 2021-07-28 Completed [facility] Vaccine 00:00:00 [facility] SARS-COV-2 COVID-19 2021-07-28 Completed [facility] PFIZER VACCINE 00:00:00 [facility] Influenza Virus 2021-07-28 Completed [facility] Vaccine 00:00:00 [facility] SARS-COV-2 COVID-19 2021-07-28 Completed [facility] PFIZER VACCINE 00:00:00 [facility] Influenza Virus 2021-07-28 Completed [facility] Vaccine 00:00:00 [facility] SARS-COV-2 COVID-19 2021-07-28 Completed [facility] PFIZER VACCINE 00:00:00 [facility] Influenza Virus 2021-07-28 Completed [facility] Vaccine 00:00:00 [facility] SARS-COV-2 COVID-19 2021-07-28 Completed [facility] PFIZER VACCINE 00:00:00 [facility] Influenza Virus 2021-07-28 Completed [facility] Vaccine 00:00:00 [facility] SARS-COV-2 COVID-19 2021-07-28 Completed [facility] PFIZER VACCINE 00:00:00 [facility] Influenza Virus 2021-07-28 Completed [facility] Vaccine 00:00:00 [facility] SARS-COV-2 COVID-19 2021-07-28 Completed [facility] PFIZER VACCINE 00:00:00 [facility] Influenza Virus 2021-07-28 Completed [facility] Vaccine 00:00:00 [facility] SARS-COV-2 COVID-19 2021-07-28 Completed [facility] PFIZER VACCINE 00:00:00 [facility] Influenza Virus 2021-07-28 Completed [facility] Vaccine 00:00:00 [facility] SARS-COV-2 COVID-19 2021-07-28 Completed [facility] PFIZER VACCINE 00:00:00 [facility] Influenza Virus 2021-07-28 Completed [facility] Vaccine 00:00:00 [facility] SARS-COV-2 COVID-19 2021-07-28 Completed [facility] PFIZER VACCINE 00:00:00 [facility] Influenza Virus 2021-07-28 Completed [facility] Vaccine 00:00:00 [facility] SARS-COV-2 COVID-19 2021-07-28 Completed [facility] PFIZER VACCINE 00:00:00 [facility] Influenza Virus 2021-07-28 Completed [facility] Vaccine 00:00:00 [facility] SARS-COV-2 COVID-19 2021-07-28 Completed [facility] PFIZER VACCINE 00:00:00 [facility] Influenza Virus 2021-07-28 Completed [facility] Vaccine 00:00:00 [facility] SARS-COV-2 COVID-19 2021-07-28 Completed [facility] PFIZER VACCINE 00:00:00 [facility] Influenza Virus 2021-07-28 Completed [facility] Vaccine 00:00:00 [facility] SARS-COV-2 COVID-19 2021-07-28 Completed [facility] PFIZER VACCINE 00:00:00 [facility] Influenza Virus 2021-07-28 Completed [facility] Vaccine 00:00:00 [facility] SARS-COV-2 COVID-19 2021-07-28 Completed [facility] PFIZER VACCINE 00:00:00 [facility] Influenza Virus 2021-07-28 Completed [facility] Vaccine 00:00:00 [facility] SARS-COV-2 COVID-19 2021-07-28 Completed [facility] PFIZER VACCINE 00:00:00 [facility] Influenza Virus 2021-07-28 Completed [facility] Vaccine 00:00:00 [facility] SARS-COV-2 COVID-19 2021-07-28 Completed [facility] PFIZER VACCINE 00:00:00 [facility] Influenza Virus 2021-07-28 Completed [facility] Vaccine 00:00:00 [facility] SARS-COV-2 COVID-19 2021-07-28 Completed [facility] PFIZER VACCINE 00:00:00 [facility] Influenza Virus 2021-07-28 Completed [facility] Vaccine 00:00:00 [facility] SARS-COV-2 COVID-19 2021-07-28 Completed [facility] PFIZER VACCINE 00:00:00 [facility] Influenza Virus 2021-07-28 Completed [facility] Vaccine 00:00:00 [facility] SARS-COV-2 COVID-19 2021-07-28 Completed [facility] PFIZER VACCINE 00:00:00 [facility] Influenza Virus 2021-07-28 Completed [facility] Vaccine 00:00:00 [facility] SARS-COV-2 COVID-19 2021-07-28 Completed [facility] PFIZER VACCINE 00:00:00 [facility] Influenza Virus 2021-07-28 Completed [facility] Vaccine 00:00:00 [facility] SARS-COV-2 COVID-19 2021-07-28 Completed [facility] PFIZER VACCINE 00:00:00 [facility] Influenza Virus 2021-07-28 Completed [facility] Vaccine 00:00:00 [facility] SARS-COV-2 COVID-19 2021-07-28 Completed [facility] PFIZER VACCINE 00:00:00 [facility] Influenza Virus 2021-07-28 Completed [facility] Vaccine 00:00:00 [facility] SARS-COV-2 COVID-19 2021-07-28 Completed [facility] PFIZER VACCINE 00:00:00 [facility] Influenza Virus 2021-07-28 Completed [facility] Vaccine 00:00:00 [facility] SARS-COV-2 COVID-19 2021-07-28 Completed [facility] PFIZER VACCINE 00:00:00 [facility] Influenza Virus 2021-07-28 Completed [facility] Vaccine 00:00:00 [facility] SARS-COV-2 COVID-19 2021-07-28 Completed [facility] PFIZER VACCINE 00:00:00 [facility] Influenza Virus 2021-07-28 Completed [facility] Vaccine 00:00:00 [facility] SARS-COV-2 COVID-19 2021-07-28 Completed [facility] PFIZER VACCINE 00:00:00 [facility] Influenza Virus 2021-07-28 Completed [facility] Vaccine 00:00:00 [facility] SARS-COV-2 COVID-19 2021-07-28 Completed [facility] PFIZER VACCINE 00:00:00 [facility] Influenza Virus 2021-07-28 Completed [facility] Vaccine 00:00:00 [facility] SARS-COV-2 COVID-19 2021-07-28 Completed [facility] PFIZER VACCINE 00:00:00 [facility] Influenza Virus 2021-07-28 Completed [facility] Vaccine 00:00:00 [facility] SARS-COV-2 COVID-19 2021-07-28 Completed [facility] PFIZER VACCINE 00:00:00 [facility] Influenza Virus 2021-07-28 Completed [facility] Vaccine 00:00:00 [facility] SARS-COV-2 COVID-19 2021-07-28 Completed [facility] PFIZER VACCINE 00:00:00 [facility] Influenza Virus 2021-07-28 Completed [facility] Vaccine 00:00:00 [facility] SARS-COV-2 COVID-19 2021-07-28 Completed [facility] PFIZER VACCINE 00:00:00 [facility] Influenza Virus 2021-07-28 Completed [facility] Vaccine 00:00:00 [facility] SARS-COV-2 COVID-19 2021-07-28 Completed [facility] PFIZER VACCINE 00:00:00 [facility] Influenza Virus 2021-07-28 Completed [facility]ine 00:00:00 [facility] SARS-COV-2 COVID-19 2021-07-28 Completed [facility] PFIZER VACCINE 00:00:00 [facility] Influenza Virus 2021-07-28 Completed [facility] Vaccine 00:00:00 [facility] SARS-COV-2 COVID-19 2021-07-28 Completed [facility] PFIZER VACCINE 00:00:00 [facility] Influenza Virus 2021-07-28 Completed [facility] Vaccine 00:00:00 [facility] SARS-COV-2 COVID-19 2021-07-28 Completed [facility] PFIZER VACCINE 00:00:00 [facility] Influenza Virus 2021-07-28 Completed [facility] Vaccine 00:00:00 [facility] SARS-COV-2 COVID-19 2021-07-28 Completed [facility] PFIZER VACCINE 00:00:00 [facility] Influenza Virus 2021-07-28 Completed [facility] Vaccine 00:00:00 [facility] SARS-COV-2 COVID-19 2021-07-28 Completed [facility] PFIZER VACCINE 00:00:00 [facility] Influenza Virus 2021-07-28 Completed [facility] Vaccine 00:00:00 [facility] SARS-COV-2 COVID-19 2021-07-28 Completed [facility] PFIZER VACCINE 00:00:00 [facility] Influenza Virus 2021-07-28 Completed [facility] Vaccine 00:00:00 [facility] SARS-COV-2 COVID-19 2021-07-28 Completed [facility] PFIZER VACCINE 00:00:00 [facility] Influenza Virus 2021-07-28 Completed [facility]ine 00:00:00 [facility] SARS-COV-2 COVID-19 2021-07-28 Completed [facility] PFIZER VACCINE 00:00:00 [facility] Influenza Virus 2021-07-28 Completed [facility] Vaccine 00:00:00 [facility] SARS-COV-2 COVID-19 2021-07-28 Completed [facility] PFIZER VACCINE 00:00:00 [facility] Influenza Virus 2021-07-28 Completed [facility]ine 00:00:00 [facility] SARS-COV-2 COVID-19 2021-07-28 Completed [facility] PFIZER VACCINE 00:00:00 [facility] Influenza Virus 2021-07-28 Completed [facility] 00:00:00 [facility] SARS-COV-2 COVID-19 2021-04-29 Completed [facility] OSCAR/J&J VACCINE 00:00:00 [facility] SARS-COV-2 COVID-19 2021-04-29 Completed [facility] OSCAR/J&J VACCINE 00:00:00 [facility] SARS-COV-2 COVID-19 2021-04-29 Completed [facility] OSCAR/J&J VACCINE 00:00:00 [facility] SARS-COV-2 COVID-19 2021-04-29 Completed [facility] OSCAR/J&J VACCINE 00:00:00 [facility] SARS-COV-2 COVID-19 2021-04-29 Completed [facility] OSCAR/J&J VACCINE 00:00:00 [facility] SARS-COV-2 COVID-19 2021-04-29 Completed [facility] OSCAR/J&J VACCINE 00:00:00 [facility] SARS-COV-2 COVID-19 2021-04-29 Completed [facility] OSCAR/J&J VACCINE 00:00:00 [facility] SARS-COV-2 COVID-19 2021-04-29 Completed [facility] OSCAR/J&J VACCINE 00:00:00 [facility] SARS-COV-2 COVID-19 2021-04-29 Completed [facility] OSCAR/J&J VACCINE 00:00:00 [facility] SARS-COV-2 COVID-19 2021-04-29 Completed [facility] OSCAR/J&J VACCINE 00:00:00 [facility] SARS-COV-2 COVID-19 2021-04-29 Completed [facility] OSCAR/J&J VACCINE 00:00:00 [facility] SARS-COV-2 COVID-19 2021-04-29 Completed [facility] OSCAR/J&J VACCINE 00:00:00 [facility] SARS-COV-2 COVID-19 2021-04-29 Completed [facility] OSCAR/J&J VACCINE 00:00:00 [facility] SARS-COV-2 COVID-19 2021-04-29 Completed [facility] OSCAR/J&J VACCINE 00:00:00 [facility] SARS-COV-2 COVID-19 2021-04-29 Completed [facility] OSCAR/J&J VACCINE 00:00:00 [facility] SARS-COV-2 COVID-19 2021-04-29 Completed [facility] OSCAR/J&J VACCINE 00:00:00 [facility] SARS-COV-2 COVID-19 2021-04-29 Completed [facility] OSCAR/J&J VACCINE 00:00:00 [facility] SARS-COV-2 COVID-19 2021-04-29 Completed [facility] OSCAR/J&J VACCINE 00:00:00 [facility] SARS-COV-2 COVID-19 2021-04-29 Completed [facility] OSCAR/J&J VACCINE 00:00:00 [facility] SARS-COV-2 COVID-19 2021-04-29 Completed [facility] OSCAR/J&J VACCINE 00:00:00 [facility] SARS-COV-2 COVID-19 2021-04-29 Completed [facility]J VACCINE 00:00:00 [facility] SARS-COV-2 COVID-19 2021-04-29 Completed [facility]J&J VACCINE 00:00:00 [facility] SARS-COV-2 COVID-19 2021-04-29 Completed [facility]SC[facility]/J&J VACCINE 00:00:00 [facility] SARS-COV-2 COVID-19 2021-04-29 Completed [facility]SCAR/J&J VACCINE 00:00:00 [facility] SARS-COV-2 COVID-19 2021-04-29 Completed [facility]SCAR/J&J VACCINE 00:00:00 [facility] SARS-COV-2 COVID-19 2021-04-29 Completed [facility]SCAR/J&J VACCINE 00:00:00 [facility] SARS-COV-2 COVID-19 2021-04-29 Completed [facility]SCAR/J&J VACCINE 00:00:00 [facility] SARS-COV-2 COVID-19 2021-04-29 Completed [facility]SCAR/J&J VACCINE 00:00:00 [facility] SARS-COV-2 COVID-19 2021-04-29 Completed [facility]SCAR/J&J VACCINE 00:00:00 [facility] SARS-COV-2 COVID-19 2021-04-29 Completed [facility]SCAR/J&J VACCINE 00:00:00 [facility] SARS-COV-2 COVID-19 2021-04-29 Completed [facility]SCAR/J&J VACCINE 00:00:00 [facility] SARS-COV-2 COVID-19 2021-04-29 Completed [facility]SCAR/J&J VACCINE 00:00:00 [facility] SARS-COV-2 COVID-19 2021-04-29 Completed [facility]SCAR/J&J VACCINE 00:00:00 [facility] SARS-COV-2 COVID-19 2021-04-29 Completed [facility]SCAR/J&J VACCINE 00:00:00 [facility] SARS-COV-2 COVID-19 2021-04-29 Completed [facility]SCAR/J&J VACCINE 00:00:00 [facility] SARS-COV-2 COVID-19 2021-04-29 Completed [facility]SCAR/J&J VACCINE 00:00:00 [facility] SARS-COV-2 COVID-19 2021-04-29 Completed [facility]SCAR/J&J VACCINE 00:00:00 [facility] SARS-COV-2 COVID-19 2021-04-29 Completed [facility]SCAR/J&J VACCINE 00:00:00 [facility] SARS-COV-2 COVID-19 2021-04-29 Completed [facility]SCAR/J&J VACCINE 00:00:00 [facility] SARS-COV-2 COVID-19 2021-04-29 Completed [facility]SCAR/J&J VACCINE 00:00:00 [facility] SARS-COV-2 COVID-19 2021-04-29 Completed [facility]SCAR/J&J VACCINE 00:00:00 [facility] SARS-COV-2 COVID-19 2021-04-29 Completed [facility]SCAR/J&J VACCINE 00:00:00 [facility] SARS-COV-2 COVID-19 2021-04-29 Completed [facility]SCAR/J&J VACCINE 00:00:00 [facility] SARS-COV-2 COVID-19 2021-04-29 Completed [facility]SCAR/J&J VACCINE 00:00:00 [facility] SARS-COV-2 COVID-19 2021-04-29 Completed [facility]SCAR/J&J VACCINE 00:00:00 [facility] SARS-COV-2 COVID-19 2021-04-29 Completed [facility]SCAR/J&J VACCINE 00:00:00 [facility] SARS-COV-2 COVID-19 2021-04-29 Completed [facility]SCAR/J&J VACCINE 00:00:00 [facility] SARS-COV-2 COVID-19 2021-04-29 Completed [facility]SCAR/J&J VACCINE 00:00:00 [facility] SARS-COV-2 COVID-19 2021-04-29 Completed [facility]SCAR/J&J VACCINE 00:00:00 [facility] SARS-COV-2 COVID-19 2021-04-29 Completed [facility]SCAR/J&J VACCINE 00:00:00 [facility] SARS-COV-2 COVID-19 2021-04-29 Completed [facility]SCAR/J&J VACCINE 00:00:00 [facility] SARS-COV-2 COVID-19 2021-04-29 Completed [facility]SCAR/J&J VACCINE 00:00:00 [facility] SARS-COV-2 COVID-19 2021-04-29 Completed [facility]SCAR/J&J VACCINE 00:00:00 [facility] SARS-COV-2 COVID-19 2021-04-29 Completed [facility]SCAR/J&J VACCINE 00:00:00 [facility] SARS-COV-2 COVID-19 2021-04-29 Completed [facility]SCAR/J&J VACCINE 00:00:00 [facility] SARS-COV-2 COVID-19 2021-04-29 Completed [facility]SCAR/J&J VACCINE 00:00:00 [facility] SARS-COV-2 COVID-19 2021-04-29 Completed [facility]SCAR/J&J VACCINE 00:00:00 [facility] SARS-COV-2 COVID-19 2021-04-29 Completed [facility]SCAR/J&J VACCINE 00:00:00 [facility] SARS-COV-2 COVID-19 2021-04-29 Completed [facility]SCAR/J&J VACCINE 00:00:00 [facility] SARS-COV-2 COVID-19 2021-04-29 Completed [facility]SCAR/J&J VACCINE 00:00:00 [facility] SARS-COV-2 COVID-19 2021-04-29 Completed [facility] OSCAR/J&J VACCINE 00:00:00 [facility] SARS-COV-2 COVID-19 2021-04-29 Completed [facility]SCAR/J&J VACCINE 00:00:00 [facility] SARS-COV-2 COVID-19 2021-04-29 Completed [facility] OSCAR/J&J VACCINE 00:00:00 [facility] SARS-COV-2 COVID-19 2021-04-29 Completed [facility]SCAR/J&J VACCINE 00:00:00 [facility] SARS-COV-2 COVID-19 2021-04-29 Completed [facility]SCAR/J&J VACCINE 00:00:00 [facility] SARS-COV-2 COVID-19 2021-04-29 Completed [facility]SCAR/J&J VACCINE 00:00:00 [facility] SARS-COV-2 COVID-19 2021-04-29 Completed [facility]SCAR/J&J VACCINE 00:00:00 [facility] SARS-COV-2 COVID-19 2021-04-29 Completed [facility]SCAR/J&J VACCINE 00:00:00 [facility] SARS-COV-2 COVID-19 2021-04-29 Completed [facility]SCAR/J&J VACCINE 00:00:00 [facility] SARS-COV-2 COVID-19 2021-04-29 Completed [facility]SCAR/J&J VACCINE 00:00:00 [facility] SARS-COV-2 COVID-19 2021-04-29 Completed [facility]SCAR/J&J VACCINE 00:00:00 [facility] SARS-COV-2 COVID-19 2021-04-29 Completed [facility]SCAR/J&J VACCINE 00:00:00 [facility] SARS-COV-2 COVID-19 2021-04-29 Completed [facility]SCAR/J&J VACCINE 00:00:00 [facility] SARS-COV-2 COVID-19 2021-04-29 Completed [facility]SCAR/J&J VACCINE 00:00:00 [facility] SARS-COV-2 COVID-19 2021-04-29 Completed [facility]SCAR/J&J VACCINE 00:00:00 [facility] SARS-COV-2 COVID-19 2021-04-29 Completed [facility]SCAR/J&J VACCINE 00:00:00 [facility] SARS-COV-2 COVID-19 2021-04-29 Completed [facility]SCAR/J&J VACCINE 00:00:00 [facility] SARS-COV-2 COVID-19 2021-04-29 Completed [facility]SCAR/J&J VACCINE 00:00:00 [facility] SARS-COV-2 COVID-19 2021-04-29 Completed [facility]SCAR/J&J VACCINE 00:00:00 [facility] SARS-COV-2 COVID-19 2021-04-29 Completed [facility] OSCAR/J&J VACCINE 00:00:00 [facility] SARS-COV-2 COVID-19 2021-04-29 Completed [facility] OSCAR/J&J VACCINE 00:00:00 [facility] SARS-COV-2 COVID-19 2021-04-29 Completed [facility]SCAR/J&J VACCINE 00:00:00 [facility] SARS-COV-2 COVID-19 2021-04-29 Completed [facility]SCAR/J&J VACCINE 00:00:00 [facility] SARS-COV-2 COVID-19 2021-04-29 Completed [facility]SCAR/J&J VACCINE 00:00:00 [facility] SARS-COV-2 COVID-19 2021-04-29 Completed [facility]SCAR/J&J VACCINE 00:00:00 [facility] SARS-COV-2 COVID-19 2021-04-29 Completed [facility]SCAR/J&J VACCINE 00:00:00 [facility] SARS-COV-2 COVID-19 2021-04-29 Completed [facility]SCAR/J&J VACCINE 00:00:00 [facility] SARS-COV-2 COVID-19 2021-04-29 Completed [facility]SCAR/J&J VACCINE 00:00:00 [facility] SARS-COV-2 COVID-19 2021-04-29 Completed [facility] OSCAR/J&J VACCINE 00:00:00 [facility] SARS-COV-2 COVID-19 2021-04-29 Completed [facility]SCAR/J&J VACCINE 00:00:00 [facility] SARS-COV-2 COVID-19 2021-04-29 Completed [facility]SCAR/J&J VACCINE 00:00:00 [facility] SARS-COV-2 COVID-19 2021-04-29 Completed [facility]SCAR/J&J VACCINE 00:00:00 [facility] SARS-COV-2 COVID-19 2021-04-29 Completed [facility]SCAR/J&J VACCINE 00:00:00 [facility] SARS-COV-2 COVID-19 2021-04-29 Completed [facility] OSCAR/J&J VACCINE 00:00:00 [facility] SARS-COV-2 COVID-19 2021-04-29 Completed [facility]SCAR/J&J VACCINE 00:00:00 [facility] SARS-COV-2 COVID-19 2021-04-29 Completed [facility] OSCAR/J&J VACCINE 00:00:00 [facility] SARS-COV-2 COVID-19 2021-04-29 Completed [facility]SCAR/J&J VACCINE 00:00:00 [facility] SARS-COV-2 COVID-19 2021-04-29 Completed [facility] OSCAR/J&J VACCINE 00:00:00 [facility] SARS-COV-2 COVID-19 2021-04-29 Completed [facility]SCAR/J&J VACCINE 00:00:00 [facility] SARS-COV-2 COVID-19 2021-04-29 Completed [facility] OSCAR/J&J VACCINE 00:00:00 [facility] SARS-COV-2 COVID-19 2021-04-29 Completed [facility] OSCAR/J&J VACCINE 00:00:00 [facility] SARS-COV-2 COVID-19 2021-04-29 Completed [facility] OSCAR/J&J VACCINE 00:00:00 [facility] SARS-COV-2 COVID-19 2021-04-29 Completed [facility] OSCAR/J&J VACCINE 00:00:00 [facility] SARS-COV-2 COVID-19 2021-04-29 Completed [facility]SCAR/J&J VACCINE 00:00:00 [facility] SARS-COV-2 COVID-19 2021-04-29 Completed [facility]SCAR/J&J VACCINE 00:00:00 [facility] SARS-COV-2 COVID-19 2021-04-29 Completed [facility] OSCAR/J&J VACCINE 00:00:00 [facility] SARS-COV-2 COVID-19 2021-04-29 Completed [facility] OSCAR/J&J VACCINE 00:00:00 [facility] SARS-COV-2 COVID-19 2021-04-29 Completed [facility]SCAR/J&J VACCINE 00:00:00 [facility] SARS-COV-2 COVID-19 2021-04-29 Completed [facility]SCAR/J&J VACCINE 00:00:00 [facility] SARS-COV-2 COVID-19 2021-04-29 Completed [facility]SCAR/J&J VACCINE 00:00:00 [facility] SARS-COV-2 COVID-19 2021-04-29 Completed [facility]SCAR/J&J VACCINE 00:00:00 [facility] SARS-COV-2 COVID-19 2021-04-29 Completed [facility]SCAR/J&J VACCINE 00:00:00 [facility] SARS-COV-2 COVID-19 2021-04-29 Completed [facility] OSCAR/J&J VACCINE 00:00:00 [facility] SARS-COV-2 COVID-19 2021-04-29 Completed [facility]SCAR/J&J VACCINE 00:00:00 [facility] SARS-COV-2 COVID-19 2021-04-29 Completed [facility]SCAR/J&J VACCINE 00:00:00 [facility] Influenza Virus 2020-08-11 Completed [facility] .5 mL 00:00:00 [facility] 6[facility] Influenza Virus 2020-08-11 Completed [facility] .5 mL 00:00:00 [facility] 6[facility] MO [facility] Influenza Virus 2020-08-11 Completed [facility] .5 mL 00:00:00 [facility] Influenza Virus 2020-08-11 Completed [facility] .5 mL 00:00:00 [facility] Influenza Virus 2020-08-11 Completed [facility] .5 mL 00:00:00 [facility] Influenza Virus 2020-08-11 Completed [facility] .5 mL 00:00:00 [facility] Influenza Virus 2020-08-11 Completed [facility] .5 mL 00:00:00 [facility] Influenza Virus 2020-08-11 Completed [facility] .5 mL 00:00:00 [facility] Influenza Virus 2020-08-11 Completed [facility] .5 mL 00:00:00 [facility] Influenza Virus 2020-08-11 Completed [facility] .5 mL 00:00:00 [facility] Influenza Virus 2020-08-11 Completed [facility] .5 mL 00:00:00 [facility] Influenza Virus 2020-08-11 Completed [facility] .5 mL 00:00:00 [facility] Influenza Virus 2020-08-11 Completed [facility] .5 mL 00:00:00 [facility] Influenza Virus 2020-08-11 Completed [facility] .5 mL 00:00:00 [facility] Influenza Virus 2020-08-11 Completed [facility] .5 mL 00:00:00 [facility] Influenza Virus 2020-08-11 Completed [facility] .5 mL 00:00:00 [facility] Influenza Virus 2020-08-11 Completed [facility] .5 mL 00:00:00 [facility] Influenza Virus 2020-08-11 Completed [facility] .5 mL 00:00:00 [facility] Influenza Virus 2020-08-11 Completed [facility] .5 mL 00:00:00 [facility] Influenza Virus 2020-08-11 Completed [facility] .5 mL 00:00:00 [facility] Influenza Virus 2020-08-11 Completed [facility] .5 mL 00:00:00 [facility] Influenza Virus 2020-08-11 Completed [facility] .5 mL 00:00:00 [facility] Influenza Virus 2020-08-11 Completed [facility] .5 mL 00:00:00 [facility] Influenza Virus 2020-08-11 Completed [facility] .5 mL 00:00:00 [facility] Influenza Virus 2020-08-11 Completed [facility] .5 mL 00:00:00 [facility] Influenza Virus 2020-08-11 Completed [facility] .5 mL 00:00:00 [facility] Influenza Virus 2020-08-11 Completed [facility] .5 mL 00:00:00 [facility] Influenza Virus 2020-08-11 Completed [facility] .5 mL 00:00:00 [facility] Influenza Virus 2020-08-11 Completed [facility] .5 mL 00:00:00 [facility] Influenza Virus 2020-08-11 Completed [facility] .5 mL 00:00:00 [facility] Influenza Virus 2020-08-11 Completed [facility] .5 mL 00:00:00 [facility] Influenza Virus 2020-08-11 Completed [facility] .5 mL 00:00:00 [facility] Influenza Virus 2020-08-11 Completed [facility] .5 mL 00:00:00 [facility] Influenza Virus 2020-08-11 Completed [facility] .5 mL 00:00:00 [facility] Influenza Virus 2020-08-11 Completed [facility] .5 mL 00:00:00 [facility] Influenza Virus 2020-08-11 Completed [facility] .5 mL 00:00:00 [facility] Influenza Virus 2020-08-11 Completed [facility] .5 mL 00:00:00 [facility] Influenza Virus 2020-08-11 Completed [facility] .5 mL 00:00:00 [facility] Influenza Virus 2020-08-11 Completed [facility] .5 mL 00:00:00 [facility] Influenza Virus 2020-08-11 Completed [facility] .5 mL 00:00:00 [facility] Influenza Virus 2020-08-11 Completed [facility] .5 mL 00:00:00 [facility] Influenza Virus 2020-08-11 Completed [facility] .5 mL 00:00:00 [facility] Influenza Virus 2020-08-11 Completed [facility] .5 mL 00:00:00 [facility] Influenza Virus 2020-08-11 Completed [facility] .5 mL 00:00:00 [facility] Influenza Virus 2020-08-11 Completed [facility] .5 mL 00:00:00 [facility] Influenza Virus 2020-08-11 Completed [facility] .5 mL 00:00:00 [facility] Influenza Virus 2020-08-11 Completed [facility] .5 mL 00:00:00 [facility] Influenza Virus 2020-08-11 Completed [facility] .5 mL 00:00:00 [facility] Influenza Virus 2020-08-11 Completed [facility] .5 mL 00:00:00 [facility] Influenza Virus 2020-08-11 Completed [facility] .5 mL 00:00:00 [facility] Influenza Virus 2020-08-11 Completed [facility] .5 mL 00:00:00 [facility] Influenza Virus 2020-08-11 Completed [facility] .5 mL 00:00:00 [facility] Influenza Virus 2020-08-11 Completed [facility] .5 mL 00:00:00 [facility] Influenza Virus 2020-08-11 Completed [facility] .5 mL 00:00:00 [facility] Influenza Virus 2020-08-11 Completed [facility] .5 mL 00:00:00 [facility] Influenza Virus 2020-08-11 Completed [facility] .5 mL 00:00:00 [facility] Influenza Virus 2020-08-11 Completed [facility] .5 mL 00:00:00 [facility] Influenza Virus 2020-08-11 Completed [facility] .5 mL 00:00:00 [facility] Influenza Virus 2020-08-11 Completed [facility] .5 mL 00:00:00 [facility] Influenza Virus 2020-08-11 Completed [facility] .5 mL 00:00:00 [facility] Influenza Virus 2020-08-11 Completed [facility] .5 mL 00:00:00 [facility] Influenza Virus 2020-08-11 Completed [facility] .5 mL 00:00:00 [facility] Influenza Virus 2020-08-11 Completed [facility] .5 mL 00:00:00 [facility] Influenza Virus 2020-08-11 Completed [facility] .5 mL 00:00:00 [facility] Influenza Virus 2020-08-11 Completed [facility] .5 mL 00:00:00 [facility] Influenza Virus 2020-08-11 Completed [facility] .5 mL 00:00:00 [facility] Influenza Virus 2020-08-11 Completed [facility] .5 mL 00:00:00 [facility] Influenza Virus 2020-08-11 Completed [facility] .5 mL 00:00:00 [facility] Influenza Virus 2020-08-11 Completed [facility] .5 mL 00:00:00 [facility] Influenza Virus 2020-08-11 Completed [facility] .5 mL 00:00:00 [facility] Influenza Virus 2020-08-11 Completed [facility] .5 mL 00:00:00 [facility] Influenza Virus 2020-08-11 Completed [facility] .5 mL 00:00:00 [facility] Influenza Virus 2020-08-11 Completed [facility] .5 mL 00:00:00 [facility] Influenza Virus 2020-08-11 Completed [facility] .5 mL 00:00:00 [facility] Influenza Virus 2020-08-11 Completed [facility] .5 mL 00:00:00 [facility] Influenza Virus 2020-08-11 Completed [facility] .5 mL 00:00:00 [facility] Influenza Virus 2020-08-11 Completed [facility] .5 mL 00:00:00 [facility] Influenza Virus 2020-08-11 Completed [facility] .5 mL 00:00:00 [facility] Influenza Virus 2020-08-11 Completed [facility] .5 mL 00:00:00 [facility] Influenza Virus 2020-08-11 Completed [facility] .5 mL 00:00:00 [facility] Influenza Virus 2020-08-11 Completed [facility] .5 mL 00:00:00 [facility] Influenza Virus 2020-08-11 Completed [facility] .5 mL 00:00:00 [facility] Influenza Virus 2020-08-11 Completed [facility] .5 mL 00:00:00 [facility] Influenza Virus 2020-08-11 Completed [facility] .5 mL 00:00:00 [facility] Influenza Virus 2020-08-11 Completed [facility] .5 mL 00:00:00 [facility] Influenza Virus 2020-08-11 Completed [facility] .5 mL 00:00:00 [facility] Influenza Virus 2020-08-11 Completed [facility] .5 mL 00:00:00 [facility] Influenza Virus 2020-08-11 Completed [facility] .5 mL 00:00:00 [facility] Influenza Virus 2020-08-11 Completed [facility] .5 mL 00:00:00 [facility] Influenza Virus 2020-08-11 Completed [facility] .5 mL 00:00:00 [facility] Influenza Virus 2020-08-11 Completed [facility] .5 mL 00:00:00 [facility] Influenza Virus 2020-08-11 Completed [facility] .5 mL 00:00:00 [facility] Influenza Virus 2020-08-11 Completed [facility] .5 mL 00:00:00 [facility] Influenza Virus 2020-08-11 Completed [facility] .5 mL 00:00:00 [facility] Influenza Virus 2020-08-11 Completed [facility] .5 mL 00:00:00 [facility] Influenza Virus 2020-08-11 Completed [facility] .5 mL 00:00:00 [facility] Influenza Virus 2020-08-11 Completed [facility] .5 mL 00:00:00 [facility] Influenza Virus 2020-08-11 Completed [facility] .5 mL 00:00:00 [facility] Influenza Virus 2020-08-11 Completed [facility] .5 mL 00:00:00 [facility] Influenza Virus 2020-08-11 Completed [facility] .5 mL 00:00:00 [facility] Influenza Virus 2020-08-11 Completed [facility] .5 mL 00:00:00 [facility] Influenza Virus 2020-08-11 Completed [facility] .5 mL 00:00:00 [facility] Influenza Virus 2020-08-11 Completed [facility] .5 mL 00:00:00 [facility] Influenza Virus 2020-08-11 Completed [facility] .5 mL 00:00:00 [facility] Influenza Virus 2020-08-11 Completed [facility] .5 mL 00:00:00 [facility] Influenza Virus 2020-08-11 Completed [facility] .5 mL 00:00:00 [facility] 6[facility] MO [facility] (FLUZONE/FLULAVAL/F LUARIX) Influenza Virus 2020-08-11 Completed [facility] .5 mL 00:00:00 [facility] (FLUZONE/FLULAVAL/F LUARIX) Influenza Virus 2020-08-11 Completed [facility] .5 mL 00:00:00 [facility] (FLUZONE/FLULAVAL/F LUARIX) Influenza Virus 2020-08-11 Completed [facility] .5 mL 00:00:00 [facility] (FLUZONE/FLULAVAL/F LUARIX) Influenza Virus 2020-08-11 Completed [facility] .5 mL 00:00:00 [facility] (FLUZONE/FLULAVAL/F LUARIX) Influenza Virus 2020-08-11 Completed [facility] .5 mL 00:00:00 [facility] (FLUZONE/FLULAVAL/F LUARIX) Influenza Virus 2020-08-11 Completed [facility] .5 mL 00:00:00 [facility] (FLUZONE/FLULAVAL/F LUARIX) Influenza Virus 2020-08-11 Completed [facility] .5 mL 00:00:00 [facility] (FLUZONE/FLULAVAL/F LUARIX) Influenza Virus 2020-08-11 Completed [facility] .5 mL 00:00:00 [facility] 6+ MO [facility] (FLUZONE/FLULAVAL/F LUARIX) Influenza Virus 2020-08-11 Completed [facility] .5 mL 00:00:00 [facility] 6[facility] MO [facility] (FLUZONE/FLULAVAL/F LUARIX) Influenza Virus 2019-07-31 Completed [facility] Vaccine 00:00:00 [facility] Influenza Virus 2019-07-31 Completed [facility] Vaccine 00:00:00 [facility] Influenza Virus 2019-07-31 Completed [facility] Vaccine 00:00:00 [facility] Influenza Virus 2019-07-31 Completed [facility] Vaccine 00:00:00 [facility] Influenza Virus 2019-07-31 Completed [facility] Vaccine 00:00:00 [facility] Influenza Virus 2019-07-31 Completed [facility] Vaccine 00:00:00 [facility] Influenza Virus 2019-07-31 Completed [facility] Vaccine 00:00:00 [facility] Influenza Virus 2019-07-31 Completed [facility] Vaccine 00:00:00 [facility] Influenza Virus 2019-07-31 Completed [facility] Vaccine 00:00:00 [facility] Influenza Virus 2019-07-31 Completed [facility] Vaccine 00:00:00 [facility] Influenza Virus 2019-07-31 Completed [facility] Vaccine 00:00:00 [facility] Influenza Virus 2019-07-31 Completed [facility] Vaccine 00:00:00 [facility] Influenza Virus 2019-07-31 Completed [facility] Vaccine 00:00:00 [facility] Influenza Virus 2019-07-31 Completed [facility] Vaccine 00:00:00 [facility] Influenza Virus 2019-07-31 Completed [facility] Vaccine 00:00:00 [facility] Influenza Virus 2019-07-31 Completed [facility] Vaccine 00:00:00 [facility] Influenza Virus 2019-07-31 Completed [facility] Vaccine 00:00:00 [facility] Influenza Virus 2019-07-31 Completed [facility] Vaccine 00:00:00 [facility] Influenza Virus 2019-07-31 Completed [facility] Vaccine 00:00:00 [facility] Influenza Virus 2019-07-31 Completed [facility] Vaccine 00:00:00 [facility] Influenza Virus 2019-07-31 Completed [facility] Vaccine 00:00:00 [facility] Influenza Virus 2019-07-31 Completed [facility] Vaccine 00:00:00 [facility] Influenza Virus 2019-07-31 Completed [facility] Vaccine 00:00:00 [facility] Influenza Virus 2019-07-31 Completed [facility] Vaccine 00:00:00 [facility] Influenza Virus 2019-07-31 Completed [facility] Vaccine 00:00:00 [facility] Influenza Virus 2019-07-31 Completed [facility] Vaccine 00:00:00 [facility] Influenza Virus 2019-07-31 Completed [facility] Vaccine 00:00:00 [facility] Influenza Virus 2019-07-31 Completed [facility] Vaccine 00:00:00 [facility] Influenza Virus 2019-07-31 Completed [facility] Vaccine 00:00:00 [facility] Influenza Virus 2019-07-31 Completed [facility] Vaccine 00:00:00 [facility] Influenza Virus 2019-07-31 Completed [facility] Vaccine 00:00:00 [facility] Influenza Virus 2019-07-31 Completed [facility] Vaccine 00:00:00 [facility] Influenza Virus 2019-07-31 Completed [facility] Vaccine 00:00:00 [facility] Influenza Virus 2019-07-31 Completed [facility] Vaccine 00:00:00 [facility] Influenza Virus 2019-07-31 Completed [facility] Vaccine 00:00:00 [facility] Influenza Virus 2019-07-31 Completed [facility] Vaccine 00:00:00 [facility] Influenza Virus 2019-07-31 Completed [facility] Vaccine 00:00:00 [facility] Influenza Virus 2019-07-31 Completed [facility] Vaccine 00:00:00 [facility] Influenza Virus 2019-07-31 Completed [facility] Vaccine 00:00:00 [facility] Influenza Virus 2019-07-31 Completed [facility] Vaccine 00:00:00 [facility] Influenza Virus 2019-07-31 Completed [facility] Vaccine 00:00:00 [facility] Influenza Virus 2019-07-31 Completed [facility] Vaccine 00:00:00 [facility] Influenza Virus 2019-07-31 Completed [facility] Vaccine 00:00:00 [facility] Influenza Virus 2019-07-31 Completed [facility] Vaccine 00:00:00 [facility] Influenza Virus 2019-07-31 Completed [facility] Vaccine 00:00:00 [facility] Influenza Virus 2019-07-31 Completed [facility] Vaccine 00:00:00 [facility] Influenza Virus 2019-07-31 Completed [facility] Vaccine 00:00:00 [facility] Influenza Virus 2019-07-31 Completed [facility] Vaccine 00:00:00 [facility] Influenza Virus 2019-07-31 Completed [facility] Vaccine 00:00:00 [facility] Influenza Virus 2019-07-31 Completed [facility] Vaccine 00:00:00 [facility] Influenza Virus 2019-07-31 Completed [facility] Vaccine 00:00:00 [facility] Influenza Virus 2019-07-31 Completed [facility] Vaccine 00:00:00 [facility] Influenza Virus 2019-07-31 Completed [facility] Vaccine 00:00:00 [facility] Influenza Virus 2019-07-31 Completed [facility] Vaccine 00:00:00 [facility] Influenza Virus 2019-07-31 Completed [facility] Vaccine 00:00:00 [facility] Influenza Virus 2019-07-31 Completed [facility] Vaccine 00:00:00 [facility] Influenza Virus 2019-07-31 Completed [facility] Vaccine 00:00:00 [facility] Influenza Virus 2019-07-31 Completed [facility] Vaccine 00:00:00 [facility] Influenza Virus 2019-07-31 Completed [facility] Vaccine 00:00:00 [facility] Influenza Virus 2019-07-31 Completed [facility] Vaccine 00:00:00 [facility] Influenza Virus 2019-07-31 Completed [facility] Vaccine 00:00:00 [facility] Influenza Virus 2019-07-31 Completed [facility] Vaccine 00:00:00 [facility] Influenza Virus 2019-07-31 Completed [facility] Vaccine 00:00:00 [facility] Influenza Virus 2019-07-31 Completed [facility] Vaccine 00:00:00 [facility] Influenza Virus 2019-07-31 Completed [facility] Vaccine 00:00:00 [facility] Influenza Virus 2019-07-31 Completed [facility] Vaccine 00:00:00 [facility] Influenza Virus 2019-07-31 Completed [facility] Vaccine 00:00:00 [facility] Influenza Virus 2019-07-31 Completed [facility] Vaccine 00:00:00 [facility] Influenza Virus 2019-07-31 Completed [facility] Vaccine 00:00:00 [facility] Influenza Virus 2019-07-31 Completed [facility] Vaccine 00:00:00 [facility] Influenza Virus 2019-07-31 Completed [facility] Vaccine 00[facility]00:00 [facility] Influenza Virus 2019-07-31 Completed [facility] Vaccine 00:00:00 [facility] Influenza Virus 2019-07-31 Completed [facility] Vaccine 00:00:00 [facility] Influenza Virus 2019-07-31 Completed [facility] Vaccine 00:00:00 [facility] Influenza Virus 2019-07-31 Completed [facility] Vaccine 00:00:00 [facility] Influenza Virus 2019-07-31 Completed [facility] Vaccine 00:00:00 [facility] Influenza Virus 2019-07-31 Completed [facility] Vaccine 00:00:00 [facility] Influenza Virus 2019-07-31 Completed [facility] Vaccine 00:00:00 [facility] Influenza Virus 2019-07-31 Completed [facility] Vaccine 00:00:00 [facility] Influenza Virus 2019-07-31 Completed [facility] Vaccine 00:00:00 [facility] Influenza Virus 2019-07-31 Completed [facility] Vaccine 00:00:00 [facility] Influenza Virus 2019-07-31 Completed [facility] Vaccine 00:00:00 [facility] Influenza Virus 2019-07-31 Completed [facility] Vaccine 00:00:00 [facility] Influenza Virus 2019-07-31 Completed [facility] Vaccine 00:00:00 [facility] Influenza Virus 2019-07-31 Completed [facility] Vaccine 00:00:00 [facility] Influenza Virus 2019-07-31 Completed [facility] Vaccine 00:00:00 [facility] Influenza Virus 2019-07-31 Completed [facility] Vaccine 00:00:00 [facility] Influenza Virus 2019-07-31 Completed [facility] Vaccine 00:00:00 [facility] Influenza Virus 2019-07-31 Completed [facility] Vaccine 00:00:00 [facility] Influenza Virus 2019-07-31 Completed [facility] Vaccine 00:00:00 [facility] Influenza Virus 2019-07-31 Completed [facility] Vaccine 00:00:00 [facility] Influenza Virus 2019-07-31 Completed [facility] Vaccine 00:00:00 [facility] Influenza Virus 2019-07-31 Completed [facility] Vaccine 00:00:00 [facility] Influenza Virus 2019-07-31 Completed [facility] Vaccine 00:00:00 [facility] Influenza Virus 2019-07-31 Completed [facility] Vaccine 00:00:00 [facility] Influenza Virus 2019-07-31 Completed [facility] Vaccine 00:00:00 [facility] Influenza Virus 2019-07-31 Completed [facility] Vaccine 00:00:00 [facility] Influenza Virus 2019-07-31 Completed [facility] Vaccine 00:00:00 [facility] Influenza Virus 2019-07-31 Completed [facility] Vaccine 00:00:00 [facility] Influenza Virus 2019-07-31 Completed [facility] Vaccine 00:00:00 [facility] Influenza Virus 2019-07-31 Completed [facility] Vaccine 00:00:00 [facility] Influenza Virus 2019-07-31 Completed [facility] Vaccine 00:00:00 [facility] Influenza Virus 2019-07-31 Completed [facility] Vaccine 00:00:00 [facility] Influenza Virus 2019-07-31 Completed [facility] Vaccine 00:00:00 [facility] Influenza Virus 2019-07-31 Completed [facility] Vaccine 00:00:00 [facility] Influenza Virus 2019-07-31 Completed [facility] Vaccine 00:00:00 [facility] Influenza Virus 2019-07-31 Completed [facility] Vaccine 00:00:00 [facility] Influenza Virus 2019-07-31 Completed [facility] Vaccine 00:00:00 [facility] Influenza Virus 2019-07-31 Completed [facility] Vaccine 00:00:00 [facility] Influenza Virus 2019-07-31 Completed [facility] Vaccine 00:00:00 [facility] Influenza Virus 2019-07-31 Completed [facility] Vaccine 00:00:00 [facility] Influenza Virus 2019-07-31 Completed [facility] Vaccine 00:00:00 [facility] Influenza Virus 2019-07-31 Completed [facility] Vaccine 00:00:00 [facility] Influenza Virus 2019-07-31 Completed [facility] Vaccine 00:00:00 [facility] Influenza Virus 2019-07-31 Completed [facility] Vaccine 00:00:00 [facility] Zoster Vaccine 2018-11-27 Completed [facility] of Recombinant 00:00:00 [facility] Zoster Vaccine 2018-11-27 Completed [facility] Recombinant 00:00:00 [facility] Zoster Vaccine 2018-11-27 Completed [facility] Recombinant 00:00:00 [facility] Zoster Vaccine 2018-11-27 Completed [facility] Recombinant 00:00:00 [facility] Zoster Vaccine 2018-11-27 Completed [facility] Recombinant 00:00:00 [facility] Zoster Vaccine 2018-11-27 Completed [facility] Recombinant 00:00:00 [facility] Zoster Vaccine 2018-11-27 Completed [facility] Recombinant 00:00:00 [facility] Zoster Vaccine 2018-11-27 Completed [facility] Recombinant 00:00:00 [facility] Zoster Vaccine 2018-11-27 Completed [facility] Recombinant 00:00:00 [facility] Zoster Vaccine 2018-11-27 Completed [facility] Recombinant 00:00:00 [facility] Zoster Vaccine 2018-11-27 Completed [facility] Recombinant 00:00:00 [facility] Zoster Vaccine 2018-11-27 Completed [facility] Recombinant 00:00:00 [facility] Zoster Vaccine 2018-11-27 Completed [facility] Recombinant 00:00:00 [facility] Zoster Vaccine 2018-11-27 Completed [facility] Recombinant 00:00:00 [facility] Zoster Vaccine 2018-11-27 Completed [facility] Recombinant 00:00:00 [facility] Zoster Vaccine 2018-11-27 Completed [facility] Recombinant 00:00:00 [facility] Zoster Vaccine 2018-11-27 Completed [facility] Recombinant 00:00:00 [facility] Zoster Vaccine 2018-11-27 Completed [facility] Recombinant 00:00:00 [facility] Zoster Vaccine 2018-11-27 Completed [facility] Recombinant 00:00:00 [facility] Zoster Vaccine 2018-11-27 Completed [facility] Recombinant 00:00:00 [facility] Zoster Vaccine 2018-11-27 Completed [facility] Recombinant 00:00:00 [facility] Zoster Vaccine 2018-11-27 Completed [facility] Recombinant 00:00:00 [facility] Zoster Vaccine 2018-11-27 Completed [facility] Recombinant 00:00:00 [facility] Zoster Vaccine 2018-11-27 Completed [facility] Recombinant 00:00:00 [facility] Zoster Vaccine 2018-11-27 Completed [facility] Recombinant 00:00:00 [facility] Zoster Vaccine 2018-11-27 Completed [facility] Recombinant 00:00:00 [facility] Zoster Vaccine 2018-11-27 Completed [facility] Recombinant 00:00:00 [facility] Zoster Vaccine 2018-11-27 Completed [facility] Recombinant 00:00:00 [facility] Zoster Vaccine 2018-11-27 Completed [facility] Recombinant 00:00:00 [facility] Zoster Vaccine 2018-11-27 Completed [facility] Recombinant 00:00:00 [facility] Zoster Vaccine 2018-11-27 Completed [facility] Recombinant 00:00:00 [facility] Zoster Vaccine 2018-11-27 Completed [facility] Recombinant 00:00:00 [facility] Zoster Vaccine 2018-11-27 Completed [facility] Recombinant 00:00:00 [facility] Zoster Vaccine 2018-11-27 Completed [facility] Recombinant 00:00:00 [facility] Zoster Vaccine 2018-11-27 Completed [facility] Recombinant 00:00:00 [facility] Zoster Vaccine 2018-11-27 Completed [facility] Recombinant 00:00:00 [facility] Zoster Vaccine 2018-11-27 Completed [facility] Recombinant 00:00:00 [facility] Zoster Vaccine 2018-11-27 Completed [facility] Recombinant 00:00:00 [facility] Zoster Vaccine 2018-11-27 Completed [facility] Recombinant 00:00:00 [facility] Zoster Vaccine 2018-11-27 Completed [facility] Recombinant 00:00:00 [facility] Zoster Vaccine 2018-11-27 Completed [facility] Recombinant 00:00:00 [facility] Zoster Vaccine 2018-11-27 Completed [facility] Recombinant 00:00:00 [facility] Zoster Vaccine 2018-11-27 Completed [facility] Recombinant 00:00:00 [facility] Zoster Vaccine 2018-11-27 Completed [facility] Recombinant 00:00:00 [facility] Zoster Vaccine 2018-11-27 Completed [facility] Recombinant 00:00:00 [facility] Zoster Vaccine 2018-11-27 Completed [facility] Recombinant 00:00:00 [facility] Zoster Vaccine 2018-11-27 Completed [facility] Recombinant 00:00:00 [facility] Zoster Vaccine 2018-11-27 Completed [facility] Recombinant 00:00:00 [facility] Zoster Vaccine 2018-11-27 Completed [facility] Recombinant 00:00:00 [facility] Zoster Vaccine 2018-11-27 Completed [facility] Recombinant 00:00:00 [facility] Zoster Vaccine 2018-11-27 Completed [facility] Recombinant 00:00:00 [facility] Zoster Vaccine 2018-11-27 Completed [facility] Recombinant 00:00:00 [facility] Zoster Vaccine 2018-11-27 Completed [facility] Recombinant 00:00:00 [facility] Zoster Vaccine 2018-11-27 Completed [facility] Recombinant 00:00:00 [facility] Zoster Vaccine 2018-11-27 Completed [facility] Recombinant 00:00:00 [facility] Zoster Vaccine 2018-11-27 Completed [facility] Recombinant 00:00:00 [facility] Zoster Vaccine 2018-11-27 Completed [facility] Recombinant 00:00:00 [facility] Zoster Vaccine 2018-11-27 Completed [facility] Recombinant 00:00:00 [facility] Zoster Vaccine 2018-11-27 Completed [facility] Recombinant 00:00:00 [facility] Zoster Vaccine 2018-11-27 Completed [facility] Recombinant 00:00:00 [facility] Zoster Vaccine 2018-11-27 Completed [facility] Recombinant 00:00:00 [facility] Zoster Vaccine 2018-11-27 Completed [facility] Recombinant 00:00:00 [facility] Zoster Vaccine 2018-11-27 Completed [facility] Recombinant 00:00:00 [facility] Zoster Vaccine 2018-11-27 Completed [facility] Recombinant 00:00:00 [facility] Zoster Vaccine 2018-11-27 Completed [facility] Recombinant 00:00:00 [facility] Zoster Vaccine 2018-11-27 Completed [facility] Recombinant 00:00:00 [facility] Zoster Vaccine 2018-11-27 Completed [facility] Recombinant 00:00:00 [facility] Zoster Vaccine 2018-11-27 Completed [facility] Recombinant 00:00:00 [facility] Zoster Vaccine 2018-11-27 Completed [facility] Recombinant 00:00:00 [facility] Zoster Vaccine 2018-11-27 Completed [facility] Recombinant 00:00:00 [facility] Zoster Vaccine 2018-11-27 Completed [facility] Recombinant 00:00:00 [facility] Zoster Vaccine 2018-11-27 Completed [facility] Recombinant 00:00:00 [facility] Zoster Vaccine 2018-11-27 Completed [facility] Recombinant 00:00:00 [facility] Zoster Vaccine 2018-11-27 Completed [facility] Recombinant 00:00:00 [facility] Zoster Vaccine 2018-11-27 Completed [facility] Recombinant 00:00:00 [facility] Zoster Vaccine 2018-11-27 Completed [facility] Recombinant 00:00:00 [facility] Zoster Vaccine 2018-11-27 Completed [facility] Recombinant 00:00:00 [facility] Zoster Vaccine 2018-11-27 Completed [facility] Recombinant 00:00:00 [facility] Zoster Vaccine 2018-11-27 Completed [facility] Recombinant 00:00:00 [facility] Zoster Vaccine 2018-11-27 Completed [facility] Recombinant 00:00:00 [facility] Zoster Vaccine 2018-11-27 Completed [facility] Recombinant 00:00:00 [facility] Zoster Vaccine 2018-11-27 Completed [facility] Recombinant 00:00:00 [facility] Zoster Vaccine 2018-11-27 Completed [facility] Recombinant 00:00:00 [facility] Zoster Vaccine 2018-11-27 Completed [facility] Recombinant 00:00:00 [facility] Zoster Vaccine 2018-11-27 Completed [facility] Recombinant 00:00:00 [facility] Zoster Vaccine 2018-11-27 Completed [facility] Recombinant 00:00:00 [facility] Zoster Vaccine 2018-11-27 Completed [facility] Recombinant 00:00:00 [facility] Zoster Vaccine 2018-11-27 Completed [facility] Recombinant 00:00:00 [facility] Zoster Vaccine 2018-11-27 Completed [facility] Recombinant 00:00:00 [facility] Zoster Vaccine 2018-11-27 Completed [facility] Recombinant 00:00:00 [facility] Zoster Vaccine 2018-11-27 Completed [facility] Recombinant 00:00:00 [facility] Zoster Vaccine 2018-11-27 Completed [facility] Recombinant 00:00:00 [facility] Zoster Vaccine 2018-11-27 Completed [facility] Recombinant 00:00:00 [facility] Zoster Vaccine 2018-11-27 Completed [facility] Recombinant 00:00:00 [facility] Zoster Vaccine 2018-11-27 Completed [facility] Recombinant 00:00:00 [facility] Zoster Vaccine 2018-11-27 Completed [facility] Recombinant 00:00:00 [facility] Zoster Vaccine 2018-11-27 Completed [facility] Recombinant 00:00:00 [facility] Zoster Vaccine 2018-11-27 Completed [facility] Recombinant 00:00:00 [facility] Zoster Vaccine 2018-11-27 Completed [facility] Recombinant 00:00:00 [facility] Zoster Vaccine 2018-11-27 Completed [facility] Recombinant 00:00:00 [facility] Zoster Vaccine 2018-11-27 Completed [facility] Recombinant 00:00:00 [facility] Zoster Vaccine 2018-11-27 Completed [facility] Recombinant 00:00:00 [facility] Zoster Vaccine 2018-11-27 Completed [facility] Recombinant 00:00:00 [facility] Zoster Vaccine 2018-11-27 Completed [facility] Recombinant 00:00:00 [facility] Zoster Vaccine 2018-11-27 Completed [facility] Recombinant 00:00:00 [facility] Zoster Vaccine 2018-11-27 Completed [facility] Recombinant 00:00:00 [facility] Zoster Vaccine 2018-11-27 Completed [facility] Recombinant 00:00:00 [facility] Zoster Vaccine 2018-11-27 Completed [facility] Recombinant 00:00:00 [facility] Zoster Vaccine 2018-11-27 Completed [facility] Recombinant 00:00:00 [facility] Zoster Vaccine 2018-11-27 Completed [facility] Recombinant 00:00:00 [facility] Zoster Vaccine 2018-11-27 Completed [facility] Recombinant 00:00:00 [facility] Zoster Vaccine 2018-11-27 Completed [facility] Recombinant 00:00:00 [facility] Zoster Vaccine 2018-11-27 Completed [facility] Recombinant 00:00:00 [facility] Zoster Vaccine 2018-11-27 Completed [facility] Recombinant 00:00:00 [facility] Zoster Vaccine 2018-11-27 Completed [facility] Recombinant 00:00:00 [facility] Pneumococcal 13 2018-07-11 Completed [facility] Conjugate, PCV13 00:00:00 [place] [facility] (Prevnar 13) [facility] Pneumococcal 2018-07-11 Completed [facility] Polysaccharide, 00:00:00 [place] [facility] PPSV23 (PNEUMOVAX) [facility] Pneumococcal 13 2018-07-11 Completed [facility] Conjugate, PCV13 00:00:00 [place] [facility] (Prevnar 13) [facility] Pneumococcal 2018-07-11 Completed [facility] o f Polysaccharide, 00:00:00 [place] [facility] PPSV23 (PNEUMOVAX) Branch Pneumococcal 13 2018-07-11 Completed [facility], PCV13 00:00:00 [place] [facility] (Prevnar 13) Branch Pneumococcal 2018-07-11 Completed [facility] Polysaccharide, 00:00:00 [place] [facility] PPSV23 (PNEUMOVAX) Branch Pneumococcal 13 2018-07-11 Completed [facility] Conjugate, PCV13 00:00:00 [place] [facility] (Prevnar 13) Branch Pneumococcal 2018-07-11 Completed [facility] Polysaccharide, 00:00:00 [place] [facility] PPSV23 (PNEUMOVAX) Branch Pneumococcal 13 2018-07-11 Completed [facility] Conjugate, PCV13 00:00:00 [place] [facility] (Prevnar 13) Branch Pneumococcal 2018-07-11 Completed [facility] Polysaccharide, 00:00:00 [place] [facility] PPSV23 (PNEUMOVAX) Branch Pneumococcal 13 2018-07-11 Completed [facility] Conjugate, PCV13 00:00:00 [place] [facility] (Prevnar 13) Branch Pneumococcal 2018-07-11 Completed [facility] Polysaccharide, 00:00:00 [place] [facility] PPSV23 (PNEUMOVAX) Branch Pneumococcal 13 2018-07-11 Completed [facility] Conjugate, PCV13 00:00:00 [place] [facility] (Prevnar 13) Branch Pneumococcal 2018-07-11 Completed [facility] Polysaccharide, 00:00:00 [place] [facility] PPSV23 (PNEUMOVAX) Branch Pneumococcal 13 2018-07-11 Completed [facility] Conjugate, PCV13 00:00:00 [place] [facility] (Prevnar 13) Branch Pneumococcal 2018-07-11 Completed [facility] Polysaccharide, 00:00:00 [place] [facility] PPSV23 (PNEUMOVAX) Branch Pneumococcal 13 2018-07-11 Completed [facility] Conjugate, PCV13 00:00:00 [place] [facility] (Prevnar 13) Branch Pneumococcal 2018-07-11 Completed [facility] Polysaccharide, 00:00:00 [place] [facility] PPSV23 (PNEUMOVAX) Branch Pneumococcal 13 2018-07-11 Completed [facility] Conjugate, PCV13 00:00:00 [place] [facility] (Prevnar 13) Branch Pneumococcal 2018-07-11 Completed [facility] Polysaccharide, 00:00:00 [place] [facility] PPSV23 (PNEUMOVAX) Branch Pneumococcal 13 2018-07-11 Completed [facility] Conjugate, PCV13 00:00:00 [place] [facility] (Prevnar 13) Branch Pneumococcal 2018-07-11 Completed [facility] Polysaccharide, 00:00:00 [place] [facility] PPSV23 (PNEUMOVAX) Branch Pneumococcal 13 2018-07-11 Completed [facility] Conjugate, PCV13 00:00:00 [place] [facility] (Prevnar 13) Branch Pneumococcal 2018-07-11 Completed [facility] Polysaccharide, 00:00:00 [place] [facility] PPSV23 (PNEUMOVAX) Branch Pneumococcal 13 2018-07-11 Completed [facility] Conjugate, PCV13 00:00:00 [place] [facility] (Prevnar 13) Branch Pneumococcal 2018-07-11 Completed [facility] Polysaccharide, 00:00:00 [place] [facility] PPSV23 (PNEUMOVAX) Branch Pneumococcal 13 2018-07-11 Completed [facility] Conjugate, PCV13 00:00:00 [place] [facility] (Prevnar 13) Branch Pneumococcal 2018-07-11 Completed [facility] Polysaccharide, 00:00:00 [place] [facility] PPSV23 (PNEUMOVAX) Branch Pneumococcal 13 2018-07-11 Completed [facility] Conjugate, PCV13 00:00:00 [place] [facility] (Prevnar 13) Branch Pneumococcal 2018-07-11 Completed [facility] Polysaccharide, 00:00:00 [place] [facility] PPSV23 (PNEUMOVAX) Branch Pneumococcal 13 2018-07-11 Completed [facility] Conjugate, PCV13 00:00:00 [place] [facility] (Prevnar 13) Branch Pneumococcal 2018-07-11 Completed [facility] Polysaccharide, 00:00:00 [place] [facility] PPSV23 (PNEUMOVAX) Branch Pneumococcal 13 2018-07-11 Completed [facility] Conjugate, PCV13 00:00:00 [place] [facility] (Prevnar 13) Branch Pneumococcal 2018-07-11 Completed [facility] Polysaccharide, 00:00:00 [place] [facility] PPSV23 (PNEUMOVAX) Branch Pneumococcal 13 2018-07-11 Completed [facility] Conjugate, PCV13 00:00:00 [place] [facility] (Prevnar 13) Branch Pneumococcal 2018-07-11 Completed [facility] Polysaccharide, 00:00:00 [place] [facility] PPSV23 (PNEUMOVAX) Branch Pneumococcal 13 2018-07-11 Completed [facility] Conjugate, PCV13 00:00:00 [place] [facility] (Prevnar 13) Branch Pneumococcal 2018-07-11 Completed [facility] Polysaccharide, 00:00:00 [place] [facility] PPSV23 (PNEUMOVAX) Branch Pneumococcal 13 2018-07-11 Completed [facility] Conjugate, PCV13 00:00:00 [place] [facility] (Prevnar 13) Branch Pneumococcal 2018-07-11 Completed [facility] Polysaccharide, 00:00:00 [place] [facility] PPSV23 (PNEUMOVAX) Branch Pneumococcal 13 2018-07-11 Completed [facility] Conjugate, PCV13 00:00:00 [place] [facility] (Prevnar 13) Branch Pneumococcal 2018-07-11 Completed [facility] Polysaccharide, 00:00:00 [place] [facility] PPSV23 (PNEUMOVAX) Branch Pneumococcal 13 2018-07-11 Completed [facility] Conjugate, PCV13 00:00:00 [place] [facility] (Prevnar 13) Branch Pneumococcal 2018-07-11 Completed [facility] Polysaccharide, 00:00:00 [place] [facility] PPSV23 (PNEUMOVAX) Branch Pneumococcal 13 2018-07-11 Completed [facility] Conjugate, PCV13 00:00:00 [place] [facility] (Prevnar 13) Branch Pneumococcal 2018-07-11 Completed [facility] Polysaccharide, 00:00:00 [place] [facility] PPSV23 (PNEUMOVAX) Branch Pneumococcal 13 2018-07-11 Completed [facility] Conjugate, PCV13 00:00:00 [place] [facility] (Prevnar 13) Branch Pneumococcal 2018-07-11 Completed [facility] Polysaccharide, 00:00:00 [place] [facility] PPSV23 (PNEUMOVAX) Branch Pneumococcal 13 2018-07-11 Completed [facility] Conjugate, PCV13 00:00:00 [place] [facility] (Prevnar 13) Branch Pneumococcal 2018-07-11 Completed [facility] Polysaccharide, 00:00:00 [place] [facility] PPSV23 (PNEUMOVAX) Branch Pneumococcal 13 2018-07-11 Completed [facility] Conjugate, PCV13 00:00:00 [place] [facility] (Prevnar 13) Branch Pneumococcal 2018-07-11 Completed [facility] Polysaccharide, 00:00:00 [place] [facility] PPSV23 (PNEUMOVAX) Branch Pneumococcal 13 2018-07-11 Completed [facility] Conjugate, PCV13 00:00:00 [place] [facility] (Prevnar 13) Branch Pneumococcal 2018-07-11 Completed [facility] Polysaccharide, 00:00:00 [place] [facility] PPSV23 (PNEUMOVAX) Branch Pneumococcal 13 2018-07-11 Completed [facility] Conjugate, PCV13 00:00:00 [place] [facility] (Prevnar 13) Branch Pneumococcal 2018-07-11 Completed [facility] Polysaccharide, 00:00:00 [place] [facility] PPSV23 (PNEUMOVAX) Branch Pneumococcal 13 2018-07-11 Completed [facility] Conjugate, PCV13 00:00:00 [place] [facility] (Prevnar 13) Branch Pneumococcal 2018-07-11 Completed [facility] Polysaccharide, 00:00:00 [place] [facility] PPSV23 (PNEUMOVAX) Branch Pneumococcal 13 2018-07-11 Completed [facility] Conjugate, PCV13 00:00:00 [place] [facility] (Prevnar 13) Branch Pneumococcal 2018-07-11 Completed [facility] Polysaccharide, 00:00:00 [place] [facility] PPSV23 (PNEUMOVAX) Branch Pneumococcal 13 2018-07-11 Completed [facility] Conjugate, PCV13 00:00:00 [place] [facility] (Prevnar 13) Branch Pneumococcal 2018-07-11 Completed [facility] Polysaccharide, 00:00:00 [place] [facility] PPSV23 (PNEUMOVAX) Branch Pneumococcal 13 2018-07-11 Completed [facility] Conjugate, PCV13 00:00:00 [place] [facility] (Prevnar 13) Branch Pneumococcal 2018-07-11 Completed [facility] Polysaccharide, 00:00:00 [place] [facility] PPSV23 (PNEUMOVAX) Branch Pneumococcal 13 2018-07-11 Completed [facility] Conjugate, PCV13 00:00:00 [place] [facility] (Prevnar 13) Branch Pneumococcal 2018-07-11 Completed [facility] Polysaccharide, 00:00:00 [place] [facility] PPSV23 (PNEUMOVAX) Branch Pneumococcal 13 2018-07-11 Completed [facility] Conjugate, PCV13 00:00:00 [place] [facility] (Prevnar 13) Branch Pneumococcal 2018-07-11 Completed [facility] Polysaccharide, 00:00:00 [place] [facility] PPSV23 (PNEUMOVAX) Branch Pneumococcal 13 2018-07-11 Completed [facility] Conjugate, PCV13 00:00:00 [place] [facility] (Prevnar 13) Branch Pneumococcal 2018-07-11 Completed [facility] Polysaccharide, 00:00:00 [place] [facility] PPSV23 (PNEUMOVAX) Branch Pneumococcal 13 2018-07-11 Completed [facility] Conjugate, PCV13 00:00:00 [place] [facility] (Prevnar 13) Branch Pneumococcal 2018-07-11 Completed [facility] Polysaccharide, 00:00:00 [place] [facility] PPSV23 (PNEUMOVAX) Branch Pneumococcal 13 2018-07-11 Completed [facility] Conjugate, PCV13 00:00:00 [place] [facility] (Prevnar 13) Branch Pneumococcal 2018-07-11 Completed [facility] Polysaccharide, 00:00:00 [place] [facility] PPSV23 (PNEUMOVAX) Branch Pneumococcal 13 2018-07-11 Completed [facility] Conjugate, PCV13 00:00:00 [place] [facility] (Prevnar 13) Branch Pneumococcal 2018-07-11 Completed [facility] Polysaccharide, 00:00:00 [place] [facility] PPSV23 (PNEUMOVAX) Branch Pneumococcal 13 2018-07-11 Completed [facility] Conjugate, PCV13 00:00:00 [place] [facility] (Prevnar 13) Branch Pneumococcal 2018-07-11 Completed [facility] Polysaccharide, 00:00:00 [place] [facility] PPSV23 (PNEUMOVAX) Branch Pneumococcal 13 2018-07-11 Completed [facility] Conjugate, PCV13 00:00:00 [place] [facility] (Prevnar 13) Branch Pneumococcal 2018-07-11 Completed [facility] Polysaccharide, 00:00:00 [place] [facility] PPSV23 (PNEUMOVAX) Branch Pneumococcal 13 2018-07-11 Completed [facility] Conjugate, PCV13 00:00:00 [place] [facility] (Prevnar 13) Branch Pneumococcal 2018-07-11 Completed [facility] f Polysaccharide, 00:00:00 [place] [facility] PPSV23 (PNEUMOVAX) Branch Pneumococcal 13 2018-07-11 Completed [facility] Conjugate, PCV13 00:00:00 [place] [facility] (Prevnar 13) Branch Pneumococcal 2018-07-11 Completed [facility] Polysaccharide, 00:00:00 [place] [facility] PPSV23 (PNEUMOVAX) Branch Pneumococcal 13 2018-07-11 Completed [facility] Conjugate, PCV13 00:00:00 [place] [facility] (Prevnar 13) Branch Pneumococcal 2018-07-11 Completed [facility] Polysaccharide, 00:00:00 [place] [facility] PPSV23 (PNEUMOVAX) Branch Pneumococcal 13 2018-07-11 Completed [facility] Conjugate, PCV13 00:00:00 [place] [facility] (Prevnar 13) Branch Pneumococcal 2018-07-11 Completed [facility] f Polysaccharide, 00:00:00 [place] [facility] PPSV23 (PNEUMOVAX) Branch Pneumococcal 13 2018-07-11 Completed [facility] Conjugate, PCV13 00:00:00 [place] [facility] (Prevnar 13) Branch Pneumococcal 2018-07-11 Completed [facility] f Polysaccharide, 00:00:00 [place] [facility] PPSV23 (PNEUMOVAX) Branch Pneumococcal 13 2018-07-11 Completed [facility] Conjugate, PCV13 00:00:00 [place] [facility] (Prevnar 13) Branch Pneumococcal 2018-07-11 Completed [facility] Polysaccharide, 00:00:00 [place] [facility] PPSV23 (PNEUMOVAX) Branch Pneumococcal 13 2018-07-11 Completed [facility] Conjugate, PCV13 00:00:00 [place] [facility] (Prevnar 13) Branch Pneumococcal 2018-07-11 Completed [facility] Polysaccharide, 00:00:00 [place] [facility] PPSV23 (PNEUMOVAX) Branch Pneumococcal 13 2018-07-11 Completed [facility] Conjugate, PCV13 00:00:00 [place] [facility] (Prevnar 13) Branch Pneumococcal 2018-07-11 Completed [facility] Polysaccharide, 00:00:00 [place] [facility] PPSV23 (PNEUMOVAX) Branch Pneumococcal 13 2018-07-11 Completed [facility] Conjugate, PCV13 00:00:00 [place] [facility] (Prevnar 13) Branch Pneumococcal 2018-07-11 Completed [facility] Polysaccharide, 00:00:00 [place] [facility] PPSV23 (PNEUMOVAX) Branch Pneumococcal 13 2018-07-11 Completed [facility] Conjugate, PCV13 00:00:00 [place] [facility] (Prevnar 13) Branch Pneumococcal 2018-07-11 Completed [facility] Polysaccharide, 00:00:00 [place] [facility] PPSV23 (PNEUMOVAX) Branch Pneumococcal 13 2018-07-11 Completed [facility] Conjugate, PCV13 00:00:00 [place] [facility] (Prevnar 13) Branch Pneumococcal 2018-07-11 Completed [facility] f Polysaccharide, 00:00:00 [place] [facility] PPSV23 (PNEUMOVAX) Branch Pneumococcal 13 2018-07-11 Completed [facility] Conjugate, PCV13 00:00:00 [place] [facility] (Prevnar 13) Branch Pneumococcal 2018-07-11 Completed [facility] Polysaccharide, 00:00:00 [place] [facility] PPSV23 (PNEUMOVAX) Branch Pneumococcal 13 2018-07-11 Completed [facility] Conjugate, PCV13 00:00:00 [place] [facility] (Prevnar 13) Branch Pneumococcal 2018-07-11 Completed [facility] Polysaccharide, 00:00:00 [place] [facility] PPSV23 (PNEUMOVAX) Branch Pneumococcal 13 2018-07-11 Completed [facility] Conjugate, PCV13 00:00:00 [place] [facility] (Prevnar 13) Branch Pneumococcal 2018-07-11 Completed [facility] Polysaccharide, 00:00:00 [place] [facility] PPSV23 (PNEUMOVAX) Branch Pneumococcal 13 2018-07-11 Completed [facility] Conjugate, PCV13 00:00:00 [place] [facility] (Prevnar 13) Branch Pneumococcal 2018-07-11 Completed [facility] Polysaccharide, 00:00:00 [place] [facility] PPSV23 (PNEUMOVAX) Branch Pneumococcal 13 2018-07-11 Completed [facility] Conjugate, PCV13 00:00:00 [place] [facility] (Prevnar 13) Branch Pneumococcal 2018-07-11 Completed [facility] Polysaccharide, 00:00:00 [place] [facility] PPSV23 (PNEUMOVAX) Branch Pneumococcal 13 2018-07-11 Completed [facility] Conjugate, PCV13 00:00:00 [place] [facility] (Prevnar 13) Branch Pneumococcal 2018-07-11 Completed [facility] Polysaccharide, 00:00:00 [place] [facility] PPSV23 (PNEUMOVAX) Branch Pneumococcal 13 2018-07-11 Completed [facility] Conjugate, PCV13 00:00:00 [place] [facility] (Prevnar 13) Branch Pneumococcal 2018-07-11 Completed [facility] f Polysaccharide, 00:00:00 [place] [facility] PPSV23 (PNEUMOVAX) Branch Pneumococcal 13 2018-07-11 Completed [facility] Conjugate, PCV13 00:00:00 [place] [facility] (Prevnar 13) Branch Pneumococcal 2018-07-11 Completed [facility] Polysaccharide, 00:00:00 [place] [facility] PPSV23 (PNEUMOVAX) Branch Pneumococcal 13 2018-07-11 Completed [facility] Conjugate, PCV13 00:00:00 [place] [facility] (Prevnar 13) Branch Pneumococcal 2018-07-11 Completed [facility] Polysaccharide, 00:00:00 [place] [facility] PPSV23 (PNEUMOVAX) Branch Pneumococcal 13 2018-07-11 Completed [facility] Conjugate, PCV13 00:00:00 [place] [facility] (Prevnar 13) Branch Pneumococcal 2018-07-11 Completed [facility] Polysaccharide, 00:00:00 [place] [facility] PPSV23 (PNEUMOVAX) Branch Pneumococcal 13 2018-07-11 Completed [facility] Conjugate, PCV13 00:00:00 [place] [facility] (Prevnar 13) Branch Pneumococcal 2018-07-11 Completed [facility] Polysaccharide, 00:00:00 [place] [facility] PPSV23 (PNEUMOVAX) Branch Pneumococcal 13 2018-07-11 Completed [facility] Conjugate, PCV13 00:00:00 [place] [facility] (Prevnar 13) Branch Pneumococcal 2018-07-11 Completed [facility] Polysaccharide, 00:00:00 [place] [facility] PPSV23 (PNEUMOVAX) Branch Pneumococcal 13 2018-07-11 Completed [facility] Conjugate, PCV13 00:00:00 [place] [facility] (Prevnar 13) Branch Pneumococcal 2018-07-11 Completed [facility] Polysaccharide, 00:00:00 [place] [facility] PPSV23 (PNEUMOVAX) Branch Pneumococcal 13 2018-07-11 Completed [facility] Conjugate, PCV13 00:00:00 [place] [facility] (Prevnar 13) Branch Pneumococcal 2018-07-11 Completed [facility] Polysaccharide, 00:00:00 [place] [facility] PPSV23 (PNEUMOVAX) Branch Pneumococcal 13 2018-07-11 Completed [facility] Conjugate, PCV13 00:00:00 [place] [facility] (Prevnar 13) Branch Pneumococcal 2018-07-11 Completed [facility] Polysaccharide, 00:00:00 [place] [facility] PPSV23 (PNEUMOVAX) Branch Pneumococcal 13 2018-07-11 Completed [facility] Conjugate, PCV13 00:00:00 [place] [facility] (Prevnar 13) Branch Pneumococcal 2018-07-11 Completed [facility] Polysaccharide, 00:00:00 [place] [facility] PPSV23 (PNEUMOVAX) Branch Pneumococcal 13 2018-07-11 Completed [facility] Conjugate, PCV13 00:00:00 [place] [facility] (Prevnar 13) Branch Pneumococcal 2018-07-11 Completed [facility] Polysaccharide, 00:00:00 [place] [facility] PPSV23 (PNEUMOVAX) Branch Pneumococcal 13 2018-07-11 Completed [facility] Conjugate, PCV13 00:00:00 [place] [facility] (Prevnar 13) Branch Pneumococcal 2018-07-11 Completed [facility] Polysaccharide, 00:00:00 [place] [facility] PPSV23 (PNEUMOVAX) Branch Pneumococcal 13 2018-07-11 Completed [facility] Conjugate, PCV13 00:00:00 [place] [facility] (Prevnar 13) Branch Pneumococcal 2018-07-11 Completed [facility] Polysaccharide, 00:00:00 [place] [facility] PPSV23 (PNEUMOVAX) Branch Pneumococcal 13 2018-07-11 Completed [facility] Conjugate, PCV13 00:00:00 [place] [facility] (Prevnar 13) Branch Pneumococcal 2018-07-11 Completed [facility] Polysaccharide, 00:00:00 [place] [facility] PPSV23 (PNEUMOVAX) Branch Pneumococcal 13 2018-07-11 Completed [facility] Conjugate, PCV13 00:00:00 [place] [facility] (Prevnar 13) Branch Pneumococcal 2018-07-11 Completed [facility] Polysaccharide, 00:00:00 [place] [facility] PPSV23 (PNEUMOVAX) Branch Pneumococcal 13 2018-07-11 Completed [facility] Conjugate, PCV13 00:00:00 [place] [facility] (Prevnar 13) Branch Pneumococcal 2018-07-11 Completed [facility] Polysaccharide, 00:00:00 [place] [facility] PPSV23 (PNEUMOVAX) Branch Pneumococcal 13 2018-07-11 Completed [facility] Conjugate, PCV13 00:00:00 [place] [facility] (Prevnar 13) Branch Pneumococcal 2018-07-11 Completed [facility] Polysaccharide, 00:00:00 [place] [facility] PPSV23 (PNEUMOVAX) Branch Pneumococcal 13 2018-07-11 Completed [facility] Conjugate, PCV13 00:00:00 [place] [facility] (Prevnar 13) Branch Pneumococcal 2018-07-11 Completed [facility] Polysaccharide, 00:00:00 [place] [facility] PPSV23 (PNEUMOVAX) Branch Pneumococcal 13 2018-07-11 Completed [facility] Conjugate, PCV13 00:00:00 [place] [facility] (Prevnar 13) Branch Pneumococcal 2018-07-11 Completed [facility] Polysaccharide, 00:00:00 [place] [facility] PPSV23 (PNEUMOVAX) Branch Pneumococcal 13 2018-07-11 Completed [facility] Conjugate, PCV13 00:00:00 [place] [facility] (Prevnar 13) Branch Pneumococcal 2018-07-11 Completed [facility] Polysaccharide, 00:00:00 [place] [facility] PPSV23 (PNEUMOVAX) Branch Pneumococcal 13 2018-07-11 Completed [facility] Conjugate, PCV13 00:00:00 [place] [facility] (Prevnar 13) Branch Pneumococcal 2018-07-11 Completed [facility] Polysaccharide, 00:00:00 [place] [facility] PPSV23 (PNEUMOVAX) Branch Pneumococcal 13 2018-07-11 Completed [facility] Conjugate, PCV13 00:00:00 [place] [facility] (Prevnar 13) Branch Pneumococcal 2018-07-11 Completed [facility] Polysaccharide, 00:00:00 [place] [facility] PPSV23 (PNEUMOVAX) Branch Pneumococcal 13 2018-07-11 Completed [facility] Conjugate, PCV13 00:00:00 [place] [facility] (Prevnar 13) Branch Pneumococcal 2018-07-11 Completed [facility] Polysaccharide, 00:00:00 [place] [facility] PPSV23 (PNEUMOVAX) Branch Pneumococcal 13 2018-07-11 Completed [facility] Conjugate, PCV13 00:00:00 [place] [facility] (Prevnar 13) Branch Pneumococcal 2018-07-11 Completed [facility] Polysaccharide, 00:00:00 [place] [facility] PPSV23 (PNEUMOVAX) Branch Pneumococcal 13 2018-07-11 Completed [facility] Conjugate, PCV13 00:00:00 [place] [facility] (Prevnar 13) Branch Pneumococcal 2018-07-11 Completed [facility] Polysaccharide, 00:00:00 [place] [facility] PPSV23 (PNEUMOVAX) Branch Pneumococcal 13 2018-07-11 Completed [facility] Conjugate, PCV13 00:00:00 [place] [facility] (Prevnar 13) Branch Pneumococcal 2018-07-11 Completed [facility] Polysaccharide, 00:00:00 [place] [facility] PPSV23 (PNEUMOVAX) Branch Pneumococcal 13 2018-07-11 Completed [facility] Conjugate, PCV13 00:00:00 [place] [facility] (Prevnar 13) Branch Pneumococcal 2018-07-11 Completed [facility] Polysaccharide, 00:00:00 [place] [facility] PPSV23 (PNEUMOVAX) Branch Pneumococcal 13 2018-07-11 Completed [facility] Conjugate, PCV13 00:00:00 [place] [facility] (Prevnar 13) Branch Pneumococcal 2018-07-11 Completed [facility] Polysaccharide, 00:00:00 [place] [facility] PPSV23 (PNEUMOVAX) Branch Pneumococcal 13 2018-07-11 Completed [facility]jugate, PCV13 00:00:00 [place] [facility] (Prevnar 13) Branch Pneumococcal 2018-07-11 Completed [facility] Polysaccharide, 00:00:00 [place] [facility] PPSV23 (PNEUMOVAX) Branch Pneumococcal 13 2018-07-11 Completed [facility] Conjugate, PCV13 00:00:00 [place] [facility] (Prevnar 13) Branch Pneumococcal 2018-07-11 Completed [facility] Polysaccharide, 00:00:00 [place] [facility] PPSV23 (PNEUMOVAX) Branch Pneumococcal 13 2018-07-11 Completed [facility] Conjugate, PCV13 00:00:00 [place] [facility] (Prevnar 13) Branch Pneumococcal 2018-07-11 Completed [facility] Polysaccharide, 00:00:00 [place] [facility] PPSV23 (PNEUMOVAX) Branch Pneumococcal 13 2018-07-11 Completed [facility] Conjugate, PCV13 00:00:00 [place] [facility] (Prevnar 13) Branch Pneumococcal 2018-07-11 Completed [facility] Polysaccharide, 00:00:00 [place] [facility] PPSV23 (PNEUMOVAX) Branch Pneumococcal 13 2018-07-11 Completed [facility] Conjugate, PCV13 00:00:00 [place] [facility] (Prevnar 13) Branch Pneumococcal 2018-07-11 Completed [facility] Polysaccharide, 00:00:00 [place] [facility] PPSV23 (PNEUMOVAX) Branch Pneumococcal 13 2018-07-11 Completed [facility] Conjugate, PCV13 00:00:00 [place] [facility] (Prevnar 13) Branch Pneumococcal 2018-07-11 Completed [facility] Polysaccharide, 00:00:00 [place] [facility] PPSV23 (PNEUMOVAX) Branch Pneumococcal 13 2018-07-11 Completed [facility] Conjugate, PCV13 00:00:00 [place] [facility] (Prevnar 13) Branch Pneumococcal 2018-07-11 Completed [facility] Polysaccharide, 00:00:00 [place] [facility] PPSV23 (PNEUMOVAX) Branch Pneumococcal 13 2018-07-11 Completed [facility] Conjugate, PCV13 00:00:00 [place] [facility] (Prevnar 13) Branch Pneumococcal 2018-07-11 Completed [facility] Polysaccharide, 00:00:00 [place] [facility] PPSV23 (PNEUMOVAX) Branch Pneumococcal 13 2018-07-11 Completed [facility] Conjugate, PCV13 00:00:00 [place] [facility] (Prevnar 13) Branch Pneumococcal 2018-07-11 Completed [facility] Polysaccharide, 00:00:00 [place] [facility] PPSV23 (PNEUMOVAX) Branch Pneumococcal 13 2018-07-11 Completed [facility] Conjugate, PCV13 00:00:00 [place] [facility] (Prevnar 13) Branch Pneumococcal 2018-07-11 Completed [facility] Polysaccharide, 00:00:00 [place] [facility] PPSV23 (PNEUMOVAX) Branch Pneumococcal 13 2018-07-11 Completed [facility]jugate, PCV13 00:00:00 [place] [facility] (Prevnar 13) Branch Pneumococcal 2018-07-11 Completed [facility] Polysaccharide, 00:00:00 [place] [facility] PPSV23 (PNEUMOVAX) Branch Pneumococcal 13 2018-07-11 Completed [facility]jugate, PCV13 00:00:00 [place] [facility] (Prevnar 13) Branch Pneumococcal 2018-07-11 Completed [facility] Polysaccharide, 00:00:00 [place] [facility] PPSV23 (PNEUMOVAX) Branch Pneumococcal 13 2018-07-11 Completed [facility]jugate, PCV13 00:00:00 [place] [facility] (Prevnar 13) Branch Pneumococcal 2018-07-11 Completed [facility] Polysaccharide, 00:00:00 [place] [facility] PPSV23 (PNEUMOVAX) Branch Pneumococcal 13 2018-07-11 Completed [facility]jugate, PCV13 00:00:00 [place] [facility] (Prevnar 13) Branch Pneumococcal 2018-07-11 Completed [facility] Polysaccharide, 00:00:00 [place] [facility] PPSV23 (PNEUMOVAX) Branch Pneumococcal 13 2018-07-11 Completed [facility] Conjugate, PCV13 00:00:00 [place] [facility] (Prevnar 13) Branch Pneumococcal 2018-07-11 Completed [facility] Polysaccharide, 00:00:00 [place] [facility] PPSV23 (PNEUMOVAX) Branch Pneumococcal 13 2018-07-11 Completed [facility] Conjugate, PCV13 00:00:00 [place] [facility] (Prevnar 13) Branch Pneumococcal 2018-07-11 Completed [facility] Polysaccharide, 00:00:00 [place] [facility] PPSV23 (PNEUMOVAX) Branch Pneumococcal 13 2018-07-11 Completed [facility] Conjugate, PCV13 00:00:00 [place] [facility] (Prevnar 13) Branch Pneumococcal 2018-07-11 Completed [facility] Polysaccharide, 00:00:00 [place] [facility] PPSV23 (PNEUMOVAX) Branch Pneumococcal 13 2018-07-11 Completed [facility]ate, PCV13 00:00:00 [place] [facility] (Prevnar 13) Branch Pneumococcal 2018-07-11 Completed [facility] Polysaccharide, 00:00:00 [place] [facility] PPSV23 (PNEUMOVAX) Branch Pneumococcal 13 2018-07-11 Completed [facility]ate, PCV13 00:00:00 [place] [facility] (Prevnar 13) Branch Pneumococcal 2018-07-11 Completed [facility] Polysaccharide, 00:00:00 [place] [facility] PPSV23 (PNEUMOVAX) Branch Pneumococcal 13 2018-07-11 Completed [facility]ate, PCV13 00:00:00 [place] [facility] (Prevnar 13) Branch Pneumococcal 2018-07-11 Completed [facility] Polysaccharide, 00:00:00 [place] [facility] PPSV23 (PNEUMOVAX) Branch Pneumococcal 13 2018-07-11 Completed [facility], PCV13 00:00:00 [place] [facility] (Prevnar 13) Branch Pneumococcal 2018-07-11 Completed [facility] Polysaccharide, 00:00:00 [place] [facility] PPSV23 (PNEUMOVAX) Branch Pneumococcal 13 2018-07-11 Completed [facility], PCV13 00:00:00 [place] [facility] (Prevnar 13) Branch Pneumococcal 2018-07-11 Completed [facility] Polysaccharide, 00:00:00 [place] [facility] PPSV23 (PNEUMOVAX) Branch Pneumococcal 13 2018-07-11 Completed [facility] Conjugate, PCV13 00:00:00 [place] [facility] (Prevnar 13) Branch Pneumococcal 2018-07-11 Completed [facility] Polysaccharide, 00:00:00 [place] [facility] PPSV23 (PNEUMOVAX) Branch Pneumococcal 13 2018-07-11 Completed [facility] Conjugate, PCV13 00:00:00 [place] [facility] (Prevnar 13) Branch Pneumococcal 2018-07-11 Completed [facility] Polysaccharide, 00:00:00 [place] [facility] PPSV23 (PNEUMOVAX) Branch Pneumococcal 13 2018-07-11 Completed [facility] Conjugate, PCV13 00:00:00 [place] [facility] (Prevnar 13) Branch Pneumococcal 2018-07-11 Completed [facility] Polysaccharide, 00:00:00 [place] [facility] PPSV23 (PNEUMOVAX) Branch Pneumococcal 13 2018-07-11 Completed [facility] Conjugate, PCV13 00:00:00 [place] [facility] (Prevnar 13) Branch Pneumococcal 2018-07-11 Completed [facility] Polysaccharide, 00:00:00 [place] [facility] PPSV23 (PNEUMOVAX) Branch Pneumococcal 13 2018-07-11 Completed [facility] Conjugate, PCV13 00:00:00 [place] [facility] (Prevnar 13) [facility] Pneumococcal 2018-07-11 Completed [facility] f Polysaccharide, 00:00:00 [place] [facility] PPSV23 (PNEUMOVAX) Branch Pneumococcal 13 2018-07-11 Completed [facility] Conjugate, PCV13 00:00:00 [place] [facility] (Prevnar 13) Branch Pneumococcal 2018-07-11 Completed [facility] Polysaccharide, 00:00:00 [place] [facility] PPSV23 (PNEUMOVAX) Branch Pneumococcal 13 2018-07-11 Completed [facility] Conjugate, PCV13 00:00:00 [place] [facility] (Prevnar 13) Branch Pneumococcal 2018-07-11 Completed [facility] f Polysaccharide, 00:00:00 [place] [facility] PPSV23 (PNEUMOVAX) Branch Pneumococcal 13 2018-07-11 Completed [facility] Conjugate, PCV13 00:00:00 [place] [facility] (Prevnar 13) Branch Pneumococcal 2018-07-11 Completed [facility] o f Polysaccharide, 00:00:00 [facility] ical PPSV23 (PNEUMOVAX) Branch Zoster Vaccine 2018-07-09 Completed University of Recombinant 00:00:00 [facility] Zoster Vaccine 2018-07-09 Completed University of Recombinant 00:00:00 [facility] Zoster Vaccine 2018-07-09 Completed University of Recombinant 00:00:00 [facility] Zoster Vaccine 2018-07-09 Completed University of Recombinant 00:00:00 [facility] Zoster Vaccine 2018-07-09 Completed University of Recombinant 00:00:00 [facility] Zoster Vaccine 2018-07-09 Completed University of Recombinant 00:00:00 [facility] Zoster Vaccine 2018-07-09 Completed [facility] of Recombinant 00:00:00 [facility] Zoster Vaccine 2018-07-09 Completed [facility] Recombinant 00:00:00 [facility] Zoster Vaccine 2018-07-09 Completed [facility] of Recombinant 00:00:00 [facility] Zoster Vaccine 2018-07-09 Completed [facility] Recombinant 00:00:00 [facility] Zoster Vaccine 2018-07-09 Completed [facility] Recombinant 00:00:00 [facility] Zoster Vaccine 2018-07-09 Completed University of Recombinant 00:00:00 [facility] Zoster Vaccine 2018-07-09 Completed University of Recombinant 00:00:00 [facility] Zoster Vaccine 2018-07-09 Completed [facility] of Recombinant 00:00:00 [facility] Zoster Vaccine 2018-07-09 Completed [facility] of Recombinant 00:00:00 [facility] Zoster Vaccine 2018-07-09 Completed University of Recombinant 00:00:00 [facility] Zoster Vaccine 2018-07-09 Completed University of Recombinant 00:00:00 [facility] Zoster Vaccine 2018-07-09 Completed [facility] of Recombinant 00:00:00 [facility] Zoster Vaccine 2018-07-09 Completed [facility] of Recombinant 00:00:00 [facility] Zoster Vaccine 2018-07-09 Completed [facility] of Recombinant 00:00:00 [facility] Zoster Vaccine 2018-07-09 Completed [facility] of Recombinant 00:00:00 [facility] Zoster Vaccine 2018-07-09 Completed [facility] of Recombinant 00:00:00 [facility] Zoster Vaccine 2018-07-09 Completed [facility] of Recombinant 00:00:00 [facility] Zoster Vaccine 2018-07-09 Completed [facility] of Recombinant 00:00:00 [facility] Zoster Vaccine 2018-07-09 Completed [facility] of Recombinant 00:00:00 [facility] Zoster Vaccine 2018-07-09 Completed [facility] of Recombinant 00:00:00 [facility] Zoster Vaccine 2018-07-09 Completed [facility] of Recombinant 00:00:00 [facility] Zoster Vaccine 2018-07-09 Completed [facility] of Recombinant 00:00:00 [facility] Zoster Vaccine 2018-07-09 Completed [facility] Recombinant 00:00:00 [facility] Zoster Vaccine 2018-07-09 Completed [facility] of Recombinant 00:00:00 [facility] Zoster Vaccine 2018-07-09 Completed [facility] Recombinant 00:00:00 [facility] Zoster Vaccine 2018-07-09 Completed [facility] Recombinant 00:00:00 [facility] Zoster Vaccine 2018-07-09 Completed [facility] Recombinant 00:00:00 [facility] Zoster Vaccine 2018-07-09 Completed [facility] Recombinant 00:00:00 [facility] Zoster Vaccine 2018-07-09 Completed [facility] of Recombinant 00:00:00 [facility] Zoster Vaccine 2018-07-09 Completed [facility] of Recombinant 00:00:00 [facility] Zoster Vaccine 2018-07-09 Completed [facility] Recombinant 00:00:00 [facility] Zoster Vaccine 2018-07-09 Completed [facility] of Recombinant 00:00:00 [facility] Zoster Vaccine 2018-07-09 Completed [facility] of Recombinant 00:00:00 [facility] Zoster Vaccine 2018-07-09 Completed [facility] Recombinant 00:00:00 [facility] Zoster Vaccine 2018-07-09 Completed [facility] Recombinant 00:00:00 [facility] Zoster Vaccine 2018-07-09 Completed [facility] of Recombinant 00:00:00 [facility] Zoster Vaccine 2018-07-09 Completed [facility] of Recombinant 00:00:00 [facility] Zoster Vaccine 2018-07-09 Completed [facility] of Recombinant 00:00:00 [facility] Zoster Vaccine 2018-07-09 Completed [facility] of Recombinant 00:00:00 [facility] Zoster Vaccine 2018-07-09 Completed [facility] of Recombinant 00:00:00 [facility] Zoster Vaccine 2018-07-09 Completed [facility] of Recombinant 00:00:00 [facility] Zoster Vaccine 2018-07-09 Completed [facility] of Recombinant 00:00:00 [facility] Zoster Vaccine 2018-07-09 Completed [facility] of Recombinant 00:00:00 [facility] Zoster Vaccine 2018-07-09 Completed [facility] of Recombinant 00:00:00 [facility] Zoster Vaccine 2018-07-09 Completed [facility] of Recombinant 00:00:00 [facility] Zoster Vaccine 2018-07-09 Completed [facility] of Recombinant 00:00:00 [facility] Zoster Vaccine 2018-07-09 Completed [facility] of Recombinant 00:00:00 [facility] Zoster Vaccine 2018-07-09 Completed [facility] of Recombinant 00:00:00 [facility] Zoster Vaccine 2018-07-09 Completed [facility] of Recombinant 00:00:00 [facility] Zoster Vaccine 2018-07-09 Completed [facility] Recombinant 00:00:00 [facility] Zoster Vaccine 2018-07-09 Completed [facility] of Recombinant 00:00:00 [facility] Zoster Vaccine 2018-07-09 Completed [facility] of Recombinant 00:00:00 [facility] Zoster Vaccine 2018-07-09 Completed [facility] of Recombinant 00:00:00 [facility] Zoster Vaccine 2018-07-09 Completed [facility] Recombinant 00:00:00 [facility] Zoster Vaccine 2018-07-09 Completed [facility] of Recombinant 00:00:00 [facility] Zoster Vaccine 2018-07-09 Completed [facility] Recombinant 00:00:00 [facility] Zoster Vaccine 2018-07-09 Completed [facility] Recombinant 00:00:00 [facility] Zoster Vaccine 2018-07-09 Completed [facility] Recombinant 00:00:00 [facility] Zoster Vaccine 2018-07-09 Completed [facility] Recombinant 00:00:00 [facility] Zoster Vaccine 2018-07-09 Completed [facility] Recombinant 00:00:00 [facility] Zoster Vaccine 2018-07-09 Completed [facility] Recombinant 00:00:00 [facility] Zoster Vaccine 2018-07-09 Completed [facility] Recombinant 00:00:00 [facility] Zoster Vaccine 2018-07-09 Completed [facility] of Recombinant 00:00:00 [facility] Zoster Vaccine 2018-07-09 Completed [facility] of Recombinant 00:00:00 [facility] Zoster Vaccine 2018-07-09 Completed [facility] of Recombinant 00:00:00 [facility] Zoster Vaccine 2018-07-09 Completed [facility] of Recombinant 00:00:00 [facility] Zoster Vaccine 2018-07-09 Completed [facility] Recombinant 00:00:00 [facility] Zoster Vaccine 2018-07-09 Completed [facility] of Recombinant 00:00:00 [facility] Zoster Vaccine 2018-07-09 Completed [facility] of Recombinant 00:00:00 [facility] Zoster Vaccine 2018-07-09 Completed [facility] of Recombinant 00:00:00 [facility] Zoster Vaccine 2018-07-09 Completed [facility] of Recombinant 00:00:00 [facility] Zoster Vaccine 2018-07-09 Completed [facility] of Recombinant 00:00:00 [facility] Zoster Vaccine 2018-07-09 Completed [facility] Recombinant 00:00:00 [facility] Zoster Vaccine 2018-07-09 Completed [facility] Recombinant 00:00:00 [facility] Zoster Vaccine 2018-07-09 Completed [facility] Recombinant 00:00:00 [facility] Zoster Vaccine 2018-07-09 Completed [facility] Recombinant 00:00:00 [facility] Zoster Vaccine 2018-07-09 Completed [facility] Recombinant 00:00:00 [facility] Zoster Vaccine 2018-07-09 Completed [facility] Recombinant 00:00:00 [facility] Zoster Vaccine 2018-07-09 Completed [facility] Recombinant 00:00:00 [facility] Zoster Vaccine 2018-07-09 Completed [facility] Recombinant 00:00:00 [facility] Zoster Vaccine 2018-07-09 Completed [facility] of Recombinant 00:00:00 [facility] Zoster Vaccine 2018-07-09 Completed [facility] of Recombinant 00:00:00 [facility] Zoster Vaccine 2018-07-09 Completed [facility] of Recombinant 00:00:00 [facility] Zoster Vaccine 2018-07-09 Completed [facility] of Recombinant 00:00:00 [facility] Zoster Vaccine 2018-07-09 Completed [facility] of Recombinant 00:00:00 [facility] Zoster Vaccine 2018-07-09 Completed [facility] of Recombinant 00:00:00 [facility] Zoster Vaccine 2018-07-09 Completed [facility] Recombinant 00:00:00 [facility] Zoster Vaccine 2018-07-09 Completed [facility] of Recombinant 00:00:00 [facility] Zoster Vaccine 2018-07-09 Completed [facility] of Recombinant 00:00:00 [facility] Zoster Vaccine 2018-07-09 Completed [facility] of Recombinant 00:00:00 [facility] Zoster Vaccine 2018-07-09 Completed [facility] of Recombinant 00:00:00 [facility] Zoster Vaccine 2018-07-09 Completed [facility] of Recombinant 00:00:00 [facility] Zoster Vaccine 2018-07-09 Completed [facility] of Recombinant 00:00:00 [facility] Zoster Vaccine 2018-07-09 Completed [facility] of Recombinant 00:00:00 [facility] Zoster Vaccine 2018-07-09 Completed [facility] of Recombinant 00:00:00 [facility] Zoster Vaccine 2018-07-09 Completed [facility] of Recombinant 00:00:00 [facility] Zoster Vaccine 2018-07-09 Completed [facility] of Recombinant 00:00:00 [facility] Zoster Vaccine 2018-07-09 Completed [facility] of Recombinant 00:00:00 [facility] Zoster Vaccine 2018-07-09 Completed [facility] of Recombinant 00:00:00 [facility] Zoster Vaccine 2018-07-09 Completed [facility] of Recombinant 00:00:00 [facility] Zoster Vaccine 2018-07-09 Completed [facility] of Recombinant 00:00:00 [facility] Zoster Vaccine 2018-07-09 Completed [facility] Recombinant 00:00:00 [facility] Zoster Vaccine 2018-07-09 Completed [facility] Recombinant 00:00:00 [facility] Zoster Vaccine 2018-07-09 Completed [facility] Recombinant 00:00:00 [facility] Zoster Vaccine 2018-07-09 Completed [facility] Recombinant 00:00:00 [facility] Zoster Vaccine 2018-07-09 Completed [facility] Recombinant 00:00:00 [facility] Zoster Vaccine 2018-07-09 Completed [facility] Recombinant 00:00:00 [facility] Zoster Vaccine 2018-07-09 Completed [facility] of Recombinant 00:00:00 [facility] Zoster Vaccine 2018-07-09 Completed [facility] Recombinant 00:00:00 [facility] Pneumococcal 13 Unknown Completed Universit y of Conjugate, PCV13 [facility] dical (Prevnar 13) Branch Zoster Vaccine Unknown Completed [facility] [place] Zoster Vaccine Unknown Completed [facility] [place] Influenza Virus Unknown Completed Universit y of Vaccine [facility] Influenza Virus Unknown Completed Universit y of Vaccine Quad .5 mL [facility] IM 6+ [place] Branch (FLUZONE/FLULAVAL/F LUARIX) SARS-COV-2 COVID-19 Unknown Completed [facility] SARS-COV-2 COVID-19 Unknown Completed Unive rsity of OSCAR/J&J VACCINE [facility] Influenza Virus Unknown Completed [facility]it [facility] of Vaccine [facility] Pneumococcal Unknown Completed [facility] o f Polysaccharide, [place] [facility] PPSV23 (PNEUMOVAX) Branch Influenza Virus Unknown Completed [facility]it [facility] of Vaccine [facility] TDAP Unknown Completed [facility] Pneumococcal 13 Unknown Completed Universit y of Conjugate, PCV13 [facility] dical (Prevnar 13) Branch Zoster Vaccine Unknown Completed [facility] [place] Zoster Vaccine Unknown Completed [facility] [place] Influenza Virus Unknown Completed [facility]it [facility] of Vaccine [facility] Influenza Virus Unknown Completed [facility]it y of Vaccine Quad .5 mL [facility] 6+ MO Branch (FLUZONE/FLULAVAL/F LUARIX) SARS-COV-2 COVID-19 Unknown Completed [facility] SARS-COV-2 COVID-19 Unknown Completed Unive rsity of OSCAR/J&J VACCINE [facility] Influenza Virus Unknown Completed [facility] of Vaccine [facility] Pneumococcal Unknown Completed [facility] o f Polysaccharide, [place] [facility] PPSV23 (PNEUMOVAX) Branch Influenza Virus Unknown Completed [facility]it [facility] of Vaccine [facility] TDAP Unknown Completed [facility] Pneumococcal 13 Unknown Completed Universit y of Conjugate, PCV13 [facility] dical (Prevnar 13) Branch Zoster Vaccine Unknown Completed [facility] [place] Zoster Vaccine Unknown Completed [facility] [place] Influenza Virus Unknown Completed Universit y of Vaccine [facility] Influenza Virus Unknown Completed [facility]it y of Vaccine Quad .5 mL [facility] IM 6+ [place] [facility] (FLUZONE/FLULAVAL/F LUARIX) SARS-COV-2 COVID-19 Unknown Completed [facility] rs[facility]ZER [facility] SARS-COV-2 COVID-19 Unknown Completed Unive rsity of OSCAR/J&J VACCINE [facility] Influenza Virus Unknown Completed [facility] of Vaccine [facility] Pneumococcal Unknown Completed [facility] o f Polysaccharide, [place] [facility] PPSV23 (PNEUMOVAX) Branch Influenza Virus Unknown Completed [facility] of Vaccine [facility] Pneumococcal 13 Unknown Completed [facility]it y of Conjugate, PCV13 [facility] dical (Prevnar 13) Branch Zoster Vaccine Unknown Completed [facility] [place] Zoster Vaccine Unknown Completed [facility] [place] Influenza Virus Unknown Completed [facility]it y of Vaccine [facility] Influenza Virus Unknown Completed [facility]it y of Vaccine Quad .5 mL [facility] IM 6+ [place] [facility] (FLUZONE/FLULAVAL/F LUARIX) SARS-COV-2 COVID-19 Unknown Completed [facility] rs[facility]ZER [facility] SARS-COV-2 COVID-19 Unknown Completed Unive rsity of OSCAR/J&J VACCINE [facility] Influenza Virus Unknown Completed [facility]it y of [facility] Pneumococcal Unknown Completed [facility] o f Polysaccharide, [place] [facility] PPSV23 (PNEUMOVAX) Branch Influenza Virus Unknown Completed [facility]it y of Vaccine [facility] Pneumococcal 13 Unknown Completed [facility]it y of Conjugate, PCV13 [facility] dical (Prevnar 13) Branch Zoster Vaccine Unknown Completed [facility] [place] Zoster Vaccine Unknown Completed [facility] [place] Influenza Virus Unknown Completed [facility]it y of Vaccine [facility] Influenza Virus Unknown Completed [facility]it y of Vaccine Quad .5 mL [facility] 6+ MO Branch (FLUZONE/FLULAVAL/F LUARIX) SARS-COV-2 COVID-19 Unknown Completed [facility]ZER [facility]ACC[facility] SARS-COV-2 COVID-19 Unknown Completed Unive rsity of OSCAR/J&J VACCINE [facility] Influenza Virus Unknown Completed [facility]it y of Vaccine [facility] Pneumococcal Unknown Completed [facility] o f Polysaccharide, [place] [facility] PPSV23 (PNEUMOVAX) Branch Influenza Virus Unknown Completed [facility]it y of Vaccine [facility] Pneumococcal 13 Unknown Completed [facility]it y of Conjugate, PCV13 [facility] dical (Prevnar 13) Branch Zoster Vaccine Unknown Completed [facility] [place] Zoster Vaccine Unknown Completed [facility] [place] Influenza Virus Unknown Completed [facility]it y of Vaccine [facility] Influenza Virus Unknown Completed [facility]it y of Vaccine Quad .5 mL [facility] IM 6+ [place] Branch (FLUZONE/FLULAVAL/F LUARIX) SARS-COV-2 COVID-19 Unknown Completed [facility] rsity [facility]FIZER [facility]ACC[facility] SARS-COV-2 COVID-19 Unknown Completed Unive rsity of OSCAR/J&J VACCINE [facility] Influenza Virus Unknown Completed [facility]it y of Vaccine [facility] Pneumococcal Unknown Completed [facility] o f Polysaccharide, [place] [facility] PPSV23 (PNEUMOVAX) Branch Influenza Virus Unknown Completed [facility]it y of Vaccine [facility] Pneumococcal 13 Unknown Completed Universit y of Conjugate, PCV13 [facility] dical (Prevnar 13) Branch Zoster Vaccine Unknown Completed [facility] [place] Zoster Vaccine Unknown Completed [facility] [place] Influenza Virus Unknown Completed [facility]it y of Vaccine [facility] Influenza Virus Unknown Completed [facility]it y of Vaccine Quad .5 mL [facility] 6+ MO Branch (FLUZONE/FLULAVAL/F LUARIX) SARS-COV-2 COVID-19 Unknown Completed [facility]ZER [facility]ACC[facility] SARS-COV-2 COVID-19 Unknown Completed Unive rsity of OSCAR/J&J VACCINE [facility] Influenza Virus Unknown Completed [facility]it y of [facility] Pneumococcal Unknown Completed University o f Polysaccharide, [place] [facility] PPSV23 (PNEUMOVAX) Branch Influenza Virus Unknown Completed [facility]it y of Vaccine [facility] Pneumococcal 13 Unknown Completed [facility]it y of Conjugate, PCV13 [facility] dical (Prevnar 13) Branch Zoster Vaccine Unknown Completed [facility] [place] Zoster Vaccine Unknown Completed [facility] [place] Influenza Virus Unknown Completed [facility]it y of Vaccine [facility] Influenza Virus Unknown Completed [facility]it y of Vaccine Quad .5 mL [facility] 6+ MO Branch (FLUZONE/FLULAVAL/F LUARIX) SARS-COV-2 COVID-19 Unknown Completed [facility] rsity [facility]FIZER [facility]ACC[facility] SARS-COV-2 COVID-19 Unknown Completed Unive rsity of OSCAR/J&J VACCINE [facility] Influenza Virus Unknown Completed [facility]it y of [facility] Pneumococcal Unknown Completed [facility] o f Polysaccharide, [place] [facility] PPSV23 (PNEUMOVAX) Branch Pneumococcal 13 Unknown Completed Universit y of Conjugate, PCV13 [facility] dical (Prevnar 13) Branch Zoster Vaccine Unknown Completed University of Recombinant [facility] Zoster Vaccine Unknown Completed [facility] [place] Influenza Virus Unknown Completed [facility]it y of Vaccine [facility] Influenza Virus Unknown Completed [facility] y of Vaccine Quad .5 mL [facility] 6+ [facility] (FLUZONE/FLULAVAL/F LUARIX) SARS-COV-2 COVID-19 Unknown Completed [facility]ZER [facility]ACC[facility] SARS-COV-2 COVID-19 Unknown Completed Unive rsity of OSCAR/J&J VACCINE [facility] Influenza Virus Unknown Completed [facility]it y of Vaccine [facility] Pneumococcal Unknown Completed [facility] o f Polysaccharide, [place] [facility] PPSV23 (PNEUMOVAX) Branch Pneumococcal 13 Unknown Completed [facility]it y of Conjugate, PCV13 [facility] dical (Prevnar 13) [place] Zoster Vaccine Unknown Completed [facility] [place] Zoster Vaccine Unknown Completed [facility] [place] Influenza Virus Unknown Completed Universit y of Vaccine [facility] Influenza Virus Unknown Completed Universit y of Vaccine Quad .5 mL [facility] IM 6+ [place] Branch (FLUZONE/FLULAVAL/F LUARIX) SARS-COV-2 COVID-19 Unknown Completed [facility]ZER [facility]ACC[facility] SARS-COV-2 COVID-19 Unknown Completed Unive rsity of OSCAR/J&J VACCINE [facility] Influenza Virus Unknown Completed [facility]it y of Vaccine [facility] Pneumococcal Unknown Completed [facility] o f Polysaccharide, [place] [facility] PPSV23 (PNEUMOVAX) Branch Pneumococcal 13 Unknown Completed Universit y of Conjugate, PCV13 [facility] dical (Prevnar 13) Branch Zoster Vaccine Unknown Completed [facility] [place] Zoster Vaccine Unknown Completed [facility] [facility], [place], operated [facility] Influenza Virus Unknown Completed Universit y of Vaccine [facility] Influenza Virus Unknown Completed Universit y of Vaccine Quad .5 mL [facility] IM 6+ MO Branch (FLUZONE/FLULAVAL/F LUARIX) SARS-COV-2 COVID-19 Unknown Completed Unive rsity of PFIZER VACCINE [facility] SARS-COV-2 COVID-19 Unknown Completed Unive rsity of OSACR/J&J VACCINE [facility] Influenza Virus Unknown Completed Universit y of Vaccine [facility] Pneumococcal Unknown Completed University o f Polysaccharide, [place] [facility] PPSV23 (PNEUMOVAX) Branch Pneumococcal 13 Unknown Completed Universit y of Conjugate, PCV13 [place] [facility] (Prevnar 13) Branch Zoster Vaccine Unknown Completed [facility], [place], [facility] Zoster Vaccine Unknown Completed [facility], [place] Influenza Virus Unknown Completed Universit y of Vaccine [facility] Influenza Virus Unknown Completed Universit y of Vaccine Quad .5 mL [facility] IM 6+ MO Branch (FLUZONE/FLULAVAL/F LUARIX) SARS-COV-2 COVID-19 Unknown Completed Unive rsity of PFIZER VACCINE [facility] SARS-COV-2 COVID-19 Unknown Completed Unive rsity of OSCAR/J&J VACCINE [facility] Influenza Virus Unknown Completed Universit y of Vaccine [facility] Pneumococcal Unknown Completed University o f Polysaccharide, [facility] ical PPSV23 (PNEUMOVAX) Branch Pneumococcal 13 Unknown Completed Universit y of Conjugate, PCV13 [facility] dical (Prevnar 13) Branch Zoster Vaccine Unknown Completed [facility], [place], [facility] Zoster Vaccine Unknown Completed [facility], [place] Influenza Virus Unknown Completed Universit y of Vaccine [facility] Influenza Virus Unknown Completed Universit y of Vaccine Quad .5 mL [facility] 6+ MO Branch (FLUZONE/FLULAVAL/F LUARIX) SARS-COV-2 COVID-19 Unknown Completed Unive rsity of PFIZER VACCINE [facility] SARS-COV-2 COVID-19 Unknown Completed Unive rsity of OSCAR/J&J VACCINE [facility] Influenza Virus Unknown Completed Universit y of Vaccine [facility] Pneumococcal Unknown Completed University o f Polysaccharide, [place] [facility] PPSV23 (PNEUMOVAX) Branch Pneumococcal 13 Unknown Completed Universit y of Conjugate, PCV13 [facility] dical (Prevnar 13) Branch Zoster Vaccine Unknown Completed [facility], [place], operated [facility] Zoster Vaccine Unknown Completed [facility], [place] Influenza Virus Unknown Completed Universit y of Vaccine [facility] Influenza Virus Unknown Completed Universit y of Vaccine Quad .5 mL [facility] IM 6+ [place] Branch (FLUZONE/FLULAVAL/F LUARIX) SARS-COV-2 COVID-19 Unknown Completed Unive rsity of PFIZER VACC[facility] SARS-COV-2 COVID-19 Unknown Completed Unive rsity of OSCAR/J&J VACCINE [facility] Influenza Virus Unknown Completed Universit y of Vaccine [facility] Pneumococcal Unknown Completed University o f Polysaccharide, [place] [facility] PPSV23 (PNEUMOVAX) Branch Pneumococcal 13 Unknown Completed Universit y of Conjugate, PCV13 [facility] dical (Prevnar 13) Branch Zoster Vaccine Unknown Completed [facility], [place], [facility] Zoster Vaccine Unknown Completed [facility], [place] Influenza Virus Unknown Completed Universit y of Vaccine [facility] Influenza Virus Unknown Completed Universit y of Vaccine Quad .5 mL [facility] IM 6+ [place] Branch (FLUZONE/FLULAVAL/F LUARIX) SARS-COV-2 COVID-19 Unknown Completed Unive rsity of PFIZER VACC[facility] SARS-COV-2 COVID-19 Unknown Completed Unive rsity of OSCAR/J&J VACCINE [facility] Influenza Virus Unknown Completed Universit y of Vaccine [facility] Pneumococcal Unknown Completed University o f Polysaccharide, [place] [facility] PPSV23 (PNEUMOVAX) Branch Pneumococcal 13 Unknown Completed Universit y of Conjugate, PCV13 [facility] dical (Prevnar 13) Branch Zoster Vaccine Unknown Completed [facility], [place], [facility] Zoster Vaccine Unknown Completed [facility], [place] Influenza Virus Unknown Completed Universit y of Vaccine [facility] Influenza Virus Unknown Completed Universit y of Vaccine Quad .5 mL [facility] 6+ MO Branch (FLUZONE/FLULAVAL/F LUARIX) SARS-COV-2 COVID-19 Unknown Completed Unive rsity of PFIZER VACC[facility] SARS-COV-2 COVID-19 Unknown Completed Unive rsity of OSCAR/J&J VACCINE [facility] Influenza Virus Unknown Completed Universit y of [facility] Pneumococcal Unknown Completed University o f Polysaccharide, [place] [facility] PPSV23 (PNEUMOVAX) Branch Pneumococcal 13 Unknown Completed Universit y of Conjugate, PCV13 [facility] dical (Prevnar 13) Branch Zoster Vaccine Unknown Completed [facility], [place] Zoster Vaccine Unknown Completed [facility], [place] Influenza Virus Unknown Completed Universit y of Vaccine [facility] Influenza Virus Unknown Completed Universit y of Vaccine Quad .5 mL [facility] IM 6+ [place] Branch (FLUZONE/FLULAVAL/F LUARIX) SARS-COV-2 COVID-19 Unknown Completed Unive rsity of PFIZER [facility]ACC[facility] SARS-COV-2 COVID-19 Unknown Completed Unive rsity of OSCAR/J&J VACCINE [facility] Influenza Virus Unknown Completed Universit y of Vaccine [facility] Pneumococcal Unknown Completed University o f Polysaccharide, [place] [facility] PPSV23 (PNEUMOVAX) Branch Pneumococcal 13 Unknown Completed Universit y of Conjugate, PCV13 [facility] dical (Prevnar 13) Branch Zoster Vaccine Unknown Completed [facility], [place] Zoster Vaccine Unknown Completed [facility], [place] Influenza Virus Unknown Completed Universit y of Vaccine [facility] Influenza Virus Unknown Completed Universit y of Vaccine Quad .5 mL [facility] IM 6+ MO Branch (FLUZONE/FLULAVAL/F LUARIX) SARS-COV-2 COVID-19 Unknown Completed Unive rsity of PFIZER VACC[facility] SARS-COV-2 COVID-19 Unknown Completed Unive rsity of OSCAR/J&J VACCINE [facility] Influenza Virus Unknown Completed Universit y of Vaccine [facility] Pneumococcal Unknown Completed University o f Polysaccharide, [place] [facility] PPSV23 (PNEUMOVAX) Branch Pneumococcal 13 Unknown Completed Universit y of Conjugate, PCV13 [facility] dical (Prevnar 13) [place] Zoster Vaccine Unknown Completed [facility], [place] Zoster Vaccine Unknown Completed [facility] [place] Influenza Virus Unknown Completed Universit y of Vaccine [facility] Influenza Virus Unknown Completed Universit y of Vaccine Quad .5 mL [facility] 6+ MO Branch (FLUZONE/FLULAVAL/F LUARIX) SARS-COV-2 COVID-19 Unknown Completed Unive rsity of PFIZER [facility]ACC[facility] SARS-COV-2 COVID-19 Unknown Completed Unive rsity of OSCAR/J&J VACCINE [facility] Influenza Virus Unknown Completed Universit y of [facility] Pneumococcal Unknown Completed University o f Polysaccharide, [place] [facility] PPSV23 (PNEUMOVAX) Branch Pneumococcal 13 Unknown Completed Universit y of Conjugate, PCV13 [facility] dical (Prevnar 13) Branch Zoster Vaccine Unknown Completed [facility] [place] Zoster Vaccine Unknown Completed [facility] [place] Influenza Virus Unknown Completed Universit y of Vaccine [facility] Influenza Virus Unknown Completed Universit y of Vaccine Quad .5 mL [facility] 6+ MO Branch (FLUZONE/FLULAVAL/F LUARIX) SARS-COV-2 COVID-19 Unknown Completed Unive rsity of PFIZER [facility]ACC[facility] SARS-COV-2 COVID-19 Unknown Completed Unive rsity of OSCAR/J&J VACCINE [facility] Influenza Virus Unknown Completed Universit y of Vaccine [facility] Pneumococcal Unknown Completed University o f Polysaccharide, [place] [facility] PPSV23 (PNEUMOVAX) Branch Pneumococcal 13 Unknown Completed Universit y of Conjugate, PCV13 [facility] dical (Prevnar 13) Branch Zoster Vaccine Unknown Completed [facility] [place] Zoster Vaccine Unknown Completed [facility] [place] Influenza Virus Unknown Completed Universit y of Vaccine [facility] Influenza Virus Unknown Completed Universit y of Vaccine Quad .5 mL [facility] IM 6+ MO Branch (FLUZONE/FLULAVAL/F LUARIX) SARS-COV-2 COVID-19 Unknown Completed Unive rsity of OSCAR/J&J VACCINE [facility] Pneumococcal Unknown Completed University o f Polysaccharide, [facility] ical PPSV23 (PNEUMOVAX) Branch Pneumococcal 13 Unknown Completed Universit y of Conjugate, PCV13 [facility] dical (Prevnar 13) Branch Zoster Vaccine Unknown Completed [facility], [place] Zoster Vaccine Unknown Completed [facility] [place] Influenza Virus Unknown Completed Universit y of Vaccine [facility] Influenza Virus Unknown Completed Universit y of Vaccine Quad .5 mL [facility] 6+ MO Branch (FLUZONE/FLULAVAL/F LUARIX) SARS-COV-2 COVID-19 Unknown Completed Unive rsity of OSCAR/J&J VACCINE [facility] Pneumococcal Unknown Completed University o f Polysaccharide, [facility] ical PPSV23 (PNEUMOVAX) Branch Pneumococcal 13 Unknown Completed Universit y of Conjugate, PCV13 [facility] dical (Prevnar 13) Branch Zoster Vaccine Unknown Completed [facility] [place] Zoster Vaccine Unknown Completed [facility] [place] Influenza Virus Unknown Completed Universit y of Vaccine [facility] Influenza Virus Unknown Completed Universit y of Vaccine Quad .5 mL [facility] 6+ MO Branch (FLUZONE/FLULAVAL/F LUARIX) SARS-COV-2 COVID-19 Unknown Completed Unive rsity of OSCAR/J&J VACCINE [facility] Pneumococcal Unknown Completed University o f Polysaccharide, [facility] ical PPSV23 (PNEUMOVAX) Branch Pneumococcal 13 Unknown Completed Universit y of Conjugate, PCV13 [facility] dical (Prevnar 13) Branch Zoster Vaccine Unknown Completed [facility] [place] Zoster Vaccine Unknown Completed [facility] [place] Influenza Virus Unknown Completed Universit y of Vaccine [facility] Influenza Virus Unknown Completed Universit y of Vaccine Quad .5 mL [facility] 6+ MO Branch (FLUZONE/FLULAVAL/F LUARIX) Pneumococcal Unknown Completed University o f Polysaccharide, [facility] ical PPSV23 (PNEUMOVAX) Branch Pneumococcal 13 Unknown Completed Universit y of Conjugate, PCV13 [facility] dical (Prevnar 13) Branch Zoster Vaccine Unknown Completed [facility] Recombinant [facility] Zoster Vaccine Unknown Completed [facility] Recombinant [facility] Influenza Virus Unknown Completed Universit y of Vaccine [facility] Influenza Virus Unknown Completed Universit y of Vaccine Quad .5 mL [facility] 6+ MO Branch (FLUZONE/FLULAVAL/F LUARIX) Pneumococcal Unknown Completed [place] [facility] Polysaccharide, [facility] ical PPSV23 (PNEUMOVAX) Branch Vital Signs Vital Name Observation Time Observation Value Comments Source Systolic blood 2023-06-06 20:17:00 129 mm[Hg] Univer sity of [facility] Diastolic blood 2023-06-06 20:17:00 81 mm[Hg] Unive rsity of [facility] Heart rate 2023-06-06 20:17:00 88 /min Universi ty [facility] Body temperature 2023-06-06 20:17:00 36.5 Kati [facility] Body height 2023-06-06 20:17:00 162.6 cm Universi ty [facility] Body weight 2023-06-06 20:17:00 84.142 kg Universi ty [facility] BMI 2023-06-06 20:17:00 31.84 kg/m2 Universi [facility] Oxygen saturation in 2023-06-06 20:17:00 98 /min [facility] Arterial blood by [facility] Pulse oximetry Branch Systolic blood 2023-05-23 16:46:00 107 mm[Hg] Univer sity of [facility] Diastolic blood 2023-05-23 16:46:00 70 mm[Hg] Unive rsity of [facility] Heart rate 2023-05-23 16:46:00 65 /min Universi ty [facility] Body temperature 2023-05-23 16:46:00 36.56 Kati [facility] Respiratory rate 2023-05-23 16:46:00 16 /min [facility] Body height 2023-05-23 16:46:00 162.6 cm Universi ty of [facility] Body weight 2023-05-23 16:46:00 84.641 kg Universi ty [facility] BMI 2023-05-23 16:46:00 32.03 kg/m2 Universi ty of [place] [facility] Oxygen saturation in 2023-05-23 16:46:00 97 /min University of Arterial blood by [facility] Pulse oximetry Branch Systolic blood 2023-05-16 13:55:00 133 mm[Hg] Univer sity of pressure [facility] Diastolic blood 2023-05-16 13:55:00 80 mm[Hg] Unive rsity of pressure [facility] Heart rate 2023-05-16 13:55:00 66 /min Universi ty [facility] [place] [facility] Body temperature 2023-05-16 13:55:00 36.28 Kati Univ ersity of [place] [facility] Body height 2023-05-16 13:55:00 162.6 cm Universi ty [facility] [place] [facility] Body weight 2023-05-16 13:55:00 82.373 kg [facility]i ty [facility] [place] [facility] BMI 2023-05-16 13:55:00 31.17 kg/m2 [facility] [place] [facility] Oxygen saturation in 2023-05-16 13:55:00 97 /min University of Arterial blood by [facility] Pulse oximetry Branch Systolic blood 2023-02-20 05:45:00 108 mm[Hg] Univer sity of [facility] Diastolic blood 2023-02-20 05:45:00 71 mm[Hg] Unive rsity of pressure [facility] Heart rate 2023-02-20 05:45:00 65 /min Universi ty [facility] [place] [facility] Respiratory rate 2023-02-20 05:45:00 20 /min Univ ersity of [place] [facility] Oxygen saturation in 2023-02-20 05:45:00 95 /min University of Arterial blood by [facility] Pulse oximetry Branch Body temperature 2023-02-20 02:10:00 36.61 Kati Univ ersity of [place] [facility] Body height 2023-02-20 02:10:00 162.6 cm Universi ty [facility] [place] [facility] Body weight 2023-02-20 02:10:00 84.324 kg [facility]i ty [facility] [place] [facility] BMI 2023-02-20 02:10:00 31.91 kg/m2 [facility] ty [facility] [place] [facility] Systolic blood 2023-02-13 20:46:00 113 mm[Hg] Univer sity of pressure [place] [facility] Diastolic blood 2023-02-13 20:46:00 76 mm[Hg] Unive rsity of pressure [place] [facility] Heart rate 2023-02-13 20:45:00 80 /min Universi ty [facility] [place] [facility] Body height 2023-02-13 20:45:00 162.6 cm [facility]i ty [facility] [place] [facility] Body weight 2023-02-13 20:45:00 83.553 kg [facility]i ty [facility] [place] [facility] BMI 2023-02-13 20:45:00 31.62 kg/m2 [facility] ty [facility] [place] [facility] Oxygen saturation in 2023-02-13 20:45:00 96 /min University of Arterial blood by [place] [employer] Pulse oximetry Branch Systolic blood 2023-01-31 20:30:00 110 mm[Hg] Univer sity of pressure [place] [facility] Diastolic blood 2023-01-31 20:30:00 59 mm[Hg] Unive rsity of pressure [place] [facility] Respiratory rate 2023-01-31 20:30:00 18 /min Univ ersity of [place] [facility] Body height 2023-01-31 20:30:00 162.6 cm Universi ty [facility] [place] [facility] Body weight 2023-01-31 20:30:00 82.101 kg [facility]i ty [facility] [place] [facility] BMI 2023-01-31 20:30:00 31.07 kg/m2 [facility] [place] [facility] Systolic blood 2023-01-11 17:30:00 109 mm[Hg] Univer sity of pressure [place] [facility] Diastolic blood 2023-01-11 17:30:00 83 mm[Hg] Unive rsity of pressure [place] [facility] Heart rate 2023-01-11 17:30:00 61 /min Universi ty of [place] [facility] Respiratory rate 2023-01-11 17:30:00 18 /min Univ ersity of [place] [facility] Oxygen saturation in 2023-01-11 17:30:00 99 /min University of Arterial blood by [place] [employer] Pulse oximetry Branch Body temperature 2023-01-11 17:01:00 36 Kati Univ ersity of [place] [facility] Body height 2023-01-11 14:25:00 162.6 cm Universi ty [facility] [place] [facility] Body weight 2023-01-11 14:25:00 81.647 kg [facility] [place] [facility] BMI 2023-01-11 14:25:00 30.90 kg/m2 [facility] [place] [facility] Systolic blood 2023-01-11 14:25:00 127 mm[Hg] Univer sity of [facility] [place] [facility] Diastolic blood 2023-01-11 14:25:00 82 mm[Hg] Unive rsity of pressure [place] [facility] Heart rate 2023-01-11 14:25:00 61 /min Universi ty of [place] [facility] Body height 2023-01-11 14:25:00 162.6 cm [facility]i ty [facility] [place] [facility] Body weight 2023-01-11 14:25:00 81.647 kg [facility] ty [facility] [place] [facility] BMI 2023-01-11 14:25:00 30.90 kg/m2 [facility] ty [facility] [place] [facility] Body temperature 2023-01-11 14:23:00 36 Kati Univ ers[facility] of [place] [facility] Respiratory rate 2023-01-11 14:23:00 16 /min Univ ersity of [place] [facility] Oxygen saturation in 2023-01-11 14:23:00 97 /min University of Arterial blood by [employer] Pulse oximetry Branch Systolic blood 2022-12-08 20:40:47 121 mm[Hg] Univer sity of pressure [place] [facility] Diastolic blood 2022-12-08 20:40:47 74 mm[Hg] Unive rsity of pressure [facility] Heart rate 2022-12-08 20:40:47 68 /min [facility]i ty [facility] [place] [facility] Body temperature 2022-12-08 20:40:47 36.72 Kati [facility] ers[facility] of [place] [facility] Respiratory rate 2022-12-08 20:40:47 16 /min Univ ersity of [place] [facility] Body height 2022-12-08 19:32:00 162.6 cm [facility] [place] [facility] Body weight 2022-12-08 19:32:00 81.647 kg [facility]i ty [facility] [place] [facility] BMI 2022-12-08 19:32:00 30.90 kg/m2 [facility] ty [facility] [place] [facility] Oxygen saturation in 2022-12-08 19:32:00 96 /min University of Arterial blood by [employer] Pulse oximetry Branch Systolic blood 2022-11-29 15:45:00 128 mm[Hg] Univer sity of [facility] [place] [facility] Diastolic blood 2022-11-29 15:45:00 80 mm[Hg] Unive rsity of pressure [place] [facility] Heart rate 2022-11-29 15:45:00 85 /min Universi ty [facility] [place] [facility] Body temperature 2022-11-29 15:45:00 37 Kati [facility] ersity of [place] [facility] Respiratory rate 2022-11-29 15:45:00 16 /min Univ ersity of [place] [facility] Body height 2022-11-29 15:45:00 162.6 cm [facility]i ty [facility] [place] [facility] Body weight 2022-11-29 15:45:00 82.056 kg [facility]i ty [facility] [place] [facility] BMI 2022-11-29 15:45:00 31.05 kg/m2 [facility] ty [facility] [place] [facility] Oxygen saturation in 2022-11-29 15:45:00 98 /min University of Arterial blood by [employer] Pulse oximetry Branch Systolic blood 2022-11-15 18:12:00 117 mm[Hg] Univer sity of pressure [facility] Diastolic blood 2022-11-15 18:12:00 67 mm[Hg] Unive rsity of pressure [facility] Heart rate 2022-11-15 18:12:00 69 /min [facility]i ty [facility] Body temperature 2022-11-15 18:12:00 37.56 Kati [facility] ers[facility] [place] [facility] Respiratory rate 2022-11-15 18:12:00 20 /min Univ ersity of [facility] Body height 2022-11-15 18:12:00 162.6 cm [facility]i ty [facility] Body weight 2022-11-15 18:12:00 86.183 kg [facility] BMI 2022-11-15 18:12:00 32.61 kg/m2 [facility] ty [facility] [place] [facility] Oxygen saturation in 2022-11-15 18:12:00 96 /min University of Arterial blood by [employer] Pulse oximetry Branch Systolic blood 2022-11-15 02:09:00 105 mm[Hg] Univer sity of [facility] Diastolic blood 2022-11-15 02:09:00 69 mm[Hg] Unive rsity of [facility] Heart rate 2022-11-15 02:09:00 58 /min Universi ty of [place] [facility] Body temperature 2022-11-15 02:09:00 37.22 Kati Univ ers[facility] of [place] [facility] Respiratory rate 2022-11-15 02:09:00 18 /min Univ ersity of [facility] Body height 2022-11-15 02:09:00 162.6 cm Universi ty [facility] [place] [facility] Body weight 2022-11-15 02:09:00 84.369 kg [facility]i ty [facility] [place] [facility] BMI 2022-11-15 02:09:00 31.93 kg/m2 Universi ty [facility] Oxygen saturation in 2022-11-15 02:09:00 96 /min University of Arterial blood by [place] [employer] Pulse oximetry Branch Systolic blood 2022-11-10 18:19:00 122 mm[Hg] Univer sity of [facility] Diastolic blood 2022-11-10 18:19:00 71 mm[Hg] Unive rsity of [facility] Heart rate 2022-11-10 18:19:00 70 /min Universi ty [facility] [place] [facility] Body temperature 2022-11-10 18:19:00 36.5 Kati [facility] ers[facility] [place] [facility] Body height 2022-11-10 18:19:00 162.6 cm Universi ty [facility] Body weight 2022-11-10 18:19:00 84.369 kg [facility]i ty [facility] BMI 2022-11-10 18:19:00 31.93 kg/m2 Universi ty [facility] Oxygen saturation in 2022-11-10 18:19:00 98 /min University of Arterial blood by [place] [employer] Pulse oximetry Branch Systolic blood 2022-10-13 17:42:00 125 mm[Hg] Univer sity of [facility] Diastolic blood 2022-10-13 17:42:00 77 mm[Hg] Unive rsity of pressure [facility] Heart rate 2022-10-13 17:41:00 74 /min Universi ty [facility] Body temperature 2022-10-13 17:41:00 36.72 Kati [facility] Body height 2022-10-13 17:41:00 162.6 cm Universi ty [facility] Body weight 2022-10-13 17:41:00 83.008 kg [facility]i ty [facility] BMI 2022-10-13 17:41:00 31.41 kg/m2 [facility] ty [facility] Oxygen saturation in 2022-10-13 17:41:00 98 /min University of Arterial blood by [facility] Pulse oximetry Branch Systolic blood 2022-07-26 19:28:00 113 mm[Hg] Univer sity of [facility] Diastolic blood 2022-07-26 19:28:00 70 mm[Hg] Unive rsity of pressure [facility] Heart rate 2022-07-26 19:28:00 70 /min [facility]i ty [facility] Body temperature 2022-07-26 19:28:00 36.78 Kati [facility] Respiratory rate 2022-07-26 19:28:00 16 /min Univ ersity of [facility] Body height 2022-07-26 19:28:00 162.6 cm Universi ty [facility] Body weight 2022-07-26 19:28:00 84.55 kg [facility] BMI 2022-07-26 19:28:00 32.00 kg/m2 [facility] Systolic blood 2022-07-05 15:18:00 149 mm[Hg] Univer [facility] Diastolic blood 2022-07-05 15:18:00 76 mm[Hg] Unive rsity [facility] Heart rate 2022-07-05 15:17:00 77 /min [facility] Body temperature 2022-07-05 15:17:00 36.94 Kati Univ ersity [facility] Body height 2022-07-05 15:17:00 162.6 cm [facility] Body weight 2022-07-05 15:17:00 85.73 kg [facility] BMI 2022-07-05 15:17:00 32.44 kg/m2 [facility] Oxygen saturation in 2022-07-05 15:17:00 99 /min University of Arterial blood by [facility] Pulse oximetry Branch Procedures Procedure Date / Time Performing Source Performed Clinician POCT HEMOGLOBIN A1C TEST 2023-05-16 Jina Conti of 00:00:00 [facility] DME/SUPPLY JUSTIFICATION 2023-05-10 Doctor Unassigned, [facility] ersity of 05:01:00 [place] [facility] XR CHEST 1 VW 2023-02-20 Selina Castañeda Clio of 03:57:00 [facility] ACUTE CARE ARTERIAL BLOOD GAS 2023-02-20 Selina Castañeda U niversity of 03:00:00 [facility] TROPONIN I 2023-02-20 Selina Castañeda Clio of 02:45:00 [facility] COMP. METABOLIC PANEL (27670) 2023-02-20 Selina Castañeda U niversity of 02:45:00 [facility] CBC WITH DIFF 2023-02-20 Selina Castañeda Clio of 02:45:00 [facility] D-DIMER 2023-02-20 Selina Castañeda Clio of 02:45:00 [facility] N-TERMINAL PRO-BNP 2023-02-20 Selina Castañeda Clio o f 02:45:00 [facility] NOTICE OF PRIVACY PRACTICES 2023-02-20 Doctor Unassvira, U niversity of 02:01:48 [place] [facility] CONSENT/REFUSAL FOR DIAGNOSIS AND 2023-02-20 Doctor Virgie kumari, [facility] 02:01:17 [place] [facility] TDAP VACCINE, >11 YRS, IM 2023-02-13 [facility] of 21:05:45 [facility] SCANNED LAB RESULTS 2023-01-31 Doctor Unassvira, Universit y of 05:01:00 [place] [facility] COLONOSCOPY (ENDO) 2023-01-11 [facility] of 16:25:26 [facility] COLONOSCOPY (ENDO) 2023-01-11 [facility] of 16:25:26 [facility] COLONOSCOPY 2023-01-11 Gris Nagy Clio of 15:50:00 [facility] ESOPHAGOGASTRODUODENOSCOPY 2023-01-11 Gris Nagy [facility] ersity of 15:50:00 [facility] EGD (ENDO) 2023-01-11 [facility] of 15:42:45 [facility] EGD (ENDO) 2023-01-11 Jina Conti Cl[facility] of 15:42:45 [facility] POCT GLUCOSE (AUTOMATED) 2023-01-11 Gris Nagy [facility] sity of 14:45:00 [facility] POCT GLUCOSE (AUTOMATED) 2023-01-11 Gris Nagy [facility] sity of 14:45:00 [facility] ASSIGNMENT OF BENEFITS 2023-01-11 Doctor Unassvira, [facility] sity of 14:13:08 [place] [facility] TROPONIN I 2022-12-08 Rowena Pelaez Clio of 20:43:00 [facility] COMP. METABOLIC PANEL ([id number]) 2022-12-08 Rowena Pelaez U niversity of 20:43:00 [facility] CBC WITH DIFF 2022-12-08 Rowena Pelaez [facility] 20:43:00 [facility] PROTHROMBIN TIME / INR 2022-12-08 Rowena Pelaez [facility] ty of 20:43:00 [facility] ACTIVATED PARTIAL THRMPLAS [place] 2022-12-08 Rowena Pelaez [facility] 20:43:00 [facility] CONSENT/REFUSAL FOR DIAGNOSIS AND 2022-12-08 Doctor Virgie kumari, [facility] 19:24:13 [place] [facility] POCT MOLECULAR STREP 2022-11-29 Unknown, Attending Universi ty of 15:48:00 [facility] PATIENT FINANCIAL POLICY 2022-11-29 Doctor Manning [facility] 15:13:47 [place] [facility] COMP. METABOLIC PANEL ([id number]) 2022-11-15 Samir French iversity of 03:07:00 [facility] CBC WITH DIFF 2022-11-15 [facility] 03:07:00 [facility] CONSENT/REFUSAL FOR DIAGNOSIS AND 2022-11-15 Doctor Virgie kumari, [facility] 02:00:16 [place] [facility] DISCLOSURE AND CONSENT, MEDICAL 2022-11-11 Doctor Gabriel lieberman, [facility] AND SURGICAL PROCEDURES 06:01:00 [place] [facility] DISCLOSURE AND CONSENT, MEDICAL 2022-11-11 Doctor Gabriel lieberman, [facility] AND SURGICAL PROCEDURES 06:01:00 [place] [facility] CBC WITH DIFF 2022-10-13 [facility] of 18:52:00 [facility] DME/SUPPLY JUSTIFICATION 2022-08-17 Doctor Unassigned, Univ ersity of 06:01:00 [place] [facility] SCANNED LAB RESULTS 2022-07-26 Doctor Unassigned, Universit y of 05:01:00 [place] [facility] EXTERNAL PAP SMEAR 2022-07-26 [facility] 05:00:00 Cheryal [facility] CBC WITH DIFF 2022-07-05 [facility] of 16:11:00 [facility] URINALYSIS 2022-07-05 [facility] of 15:57:00 [facility] POCT URINALYSIS 2022-07-05 [facility] of 15:15:00 [facility] ASSIGNMENT OF BENEFITS 2022-07-05 Doctor Unassigned, [facility] sity of 14:48:20 [place] [facility] Plan of Care Planned Activity Planned Date Details Comments Source Future Scheduled 2022-05-[address] [facility] 00:[facility]:00 (procedure) [code = [facility] 22488331] Future Scheduled 2021-05-[address] [facility] 00:00:00 (#1) [code = [facility] INFLUENZA VACCINE (#1)] Future Scheduled 2020-09-[address] [facility] Test 00:00:00 (12+) [code = [facility] DEPRESSION SCREENING (12+)] Future Scheduled 2016 SHINGLES VACCINES ([address] [facility] Test 00:00:00 of 2) [code = [facility] SHINGLES VACCINES (1 of 2)] Future Scheduled [address] [facility] 00:[facility]:00 malignant neoplasm of Medica l Center cervix (procedure) [code = 245050029] Future Scheduled 1985 DTAP/TDAP/TD VACCINES [facility] 00:00:00 (1 - Tdap) [code = Medical C enter DTAP/TDAP/TD VACCINES (1 - Tdap)] Future Scheduled 1984 HEPATITIS C [facility]CRE[facility]ING [facility] 00:00:00 [code = HEPATITIS C Medical Center SCREENING] Future Scheduled 1978 COVID-19 VACCINE (1) [facility] Test 00:00:00 [code = COVID-[address] VACCINE (1)] Future Scheduled [address] [facility] Test 00:00:00 malignant neoplasm of [facility] breast (procedure) [code = 176665528] Future Scheduled [address] [facility] Test 00:00:00 malignant neoplasm of [facility] colon (procedure) [code = 741397169] Encounters Start End Encounter Admission Attending Care Care Encounter Source Date/Time Date/Time Type Type Clinicians Facility Department ID 2023-01-02 Outpatient Uyen RIOS [facility] [id number] Univers 12:36:47 YOANNA ity [facility] 2021-07-25 Emergency [facility] [id number] Univers 05:01:25 ity [facility] 2021-07-22 Emergency [facility] [id number] Univers 12:36:18 ity [facility] 2023-08-08 2023-08-08 [facility] [id number] Univers 13:30:00 13:30:00 ELENI ity [facility] 2023-08-08 2023-08-08 [facility] [id number] Univers 08:30:00 08:30:00 ELENI ity [facility] 2023-06-15 2023-06-[address] [facility] 1.2.840.114 [id number] Univers 00:00:00 00:00:00 (Out) [facility] MULTISPEC 350.1.13.10 ity of Endocrine IALTY 4.2.7.2.686 [facility] [id number] [address] DI[facility]ES [facility]IC 2023-06-13 2023-06-13 [facility] [id number] Univers 12:46:13 23:59:00 ELENI ity [facility] 2023-06-10 2023-06-[address] [facility] 1.2.840.114 [id number] Univers 00:00:00 00:00:00 [facility] 350.1.13.10 ity of [place] 4.2.7.2.686 Price as TRACE?BLEA [id number] [address] OFFICE [facility] 2023-06-09 2023-06-[address] [facility] 1.2.590.042 [id number] Univers 00:00:00 00:00:00 [facility] 350.1.13.10 ity of [place] 4.2.7.2.686 Price as TRACE?BLEA [id number] [address] OFFICE [facility] 2023-06-08 2023-06-08 Outpatient R BRIGITTE [facility] [id number] Univers 14:00:00 14:00:00 ELENI mahendra [facility] 2023-06-06 2023-06-06 Outpatient R JINA CONTI [facility] [id number] Univers 15:20:00 16:02:52 JINA CONTI [facility] 2023-06-06 2023-06-[address] [facility] 1.2.840.114 [id number] Univers 15:20:00 16:02:52 Visit [facility] 350.1.13.10 ity of [place] 4.2.7.2.686 Price as TRACE?BLEA [id number] [address] 2023-06-05 2023-06-05 Refill Kylah [facility] 1.2.840.114 [id number] Univers 00:00:00 00:00:00 [facility] 350.1.13.10 it y of [place] 4.2.7.2.686 Price as TRACE?BLEA [id number] [address] OFFICE [facility] 2023-06-02 2023-06-[address] [facility] 1.2.447.942 [id number] Univers 00:00:00 00:00:00 Jina [place] 350.1.13.10 ity of [place] 4.2.7.2.[place] [id number] [address] 2023-05-23 2023-05-23 Office Brigitte [facility] 1.2.840.114 [id number] Univers 11:30:00 12:00:00 Visit Eleni A HEALTH 350.1.13.10 it y of [place] 4.2.7.2.686 [place] TAP[place] [id number] [facility] [address] OFFICE BUILDING 2023-05-23 2023-05-23 Outpatient R BRIGITTE [facility] [id number] Univers 11:30:00 11:30:00 ELENI ity of [facility] 2023-05-19 2023-05-19 Patient Doctor [facility] 1.2.840.114 [id number] Univers 00:00:00 00:00:00 Secure Msg Unassigned, HEALTH 350.1.13.10 it[place] 4.2.7.2.686 Price as TRACE?BLEA [id number] [place] dawn ALEJANDRO[address] MEDICAL OFFICE [facility] 2023-05-16 2023-05-16 Site Project Manager Lab, [facility] 1.2.840.1 14 [id number] Univers 10:30:00 10:45:00 Visit Jina Conti [facility] 350.1.13.10 ity of [place] 4.2.7.2.686 Price as TRACE?BLEA [id number] [place] ALEJANDRO [address] [place] MEDICAL OFFICE [facility] 2023-05-16 2023-05-16 Outpatient R JINA CONTI [facility] [id number] Univers 09:40:00 09:56:16 GALLITO JINA ity [facility] 2023-05-16 2023-05-[address] [facility] 1.2.840.114 [id number] Univers 09:40:00 09:56:16 Visit [facility] 350.1.13.10 ity [address] [facility] 4.2.7.2.686 Price as TRACE?BLEA [id number] [place] dawn PARKER [address] [place] [address] MEDICAL OFFICE BUILDING 2023-05-12 2023-05-12 Refill Gallito [facility] 1.2.840.114 [id number] Univers 00:00:00 00:00:00 Jina HEALTH 350.1.13.10 ity of [place] 4.2.7.2.686 Price as TRACE?BLEA [id number] [address] OFFICE [facility] 2023-05-10 2023-05-10 Refill Gallito, [facility] 1.2.840.114 [id number] Univers 00:00:00 00:00:00 Jina HEALTH 350.1.13.10 ity of [place] 4.2.7.2.686 Price as TRACE?BLEA [id number] [address] OFFICE [facility] 2023-05-10 2023-05-10 Orders Doctor [facility] 1.2.840.114 [id number] Univers 00:00:00 00:00:00 Only Unassigned, LAXMI 350.1.13.10 ity of [place] [facility] 4.2.7.2.686 Price as [id number] [address] 2023-05-08 2023-05-08 Outpatient SFA [facility] [id number] 17:52:59 17:52:59 [address] F [place] 2023-04-19 2023-04-19 Refmarkos [facility] 1.2.840.114 [id number] Univers 00:00:00 00:00:00 Jina HEALTH 350.1.13.10 ity [address] 4.2.7.2.686 Price as TRACE?BLEA [id number] [address] OFFICE [facility] 2023-04-08 2023-04-08 Refill Gallito, [facility] 1.2.840.114 [id number] Univers 00:00:00 00:00:00 Jina HEALTH 350.1.13.10 ity [address] 4.2.7.2.686 Price as TRACE?BLEA [id number] [address] OFFICE [facility] 2023-03-27 2023-03-27 Outpatient R FARRAH POWELL [facility] U TMB [id number] Univers 11:00:00 11:00:00 FARRAH POWELL ity of [facility] 2023-03-22 2023-03-22 Refmarkos Conti, [facility] 1.2.840.114 [id number] Univers 00:00:00 00:00:00 Jina HEALTH 350.1.13.10 ity [address] [facility] 4.2.7.2.686 Price as TRACE?BLEA [id number] [place] dical KNEY [address] [place] MEDICAL OFFICE [facility] 2023-03-17 2023-03-17 Patient Doctor [facility] 1.2.840.114 [id number] Univers 00:00:00 00:00:00 Secure Msg Unassigned, [place] 350.1.13.10 ity [place] [id number] [place] dical NAL [address] [facility] 2023-03-16 2023-03-16 Outpatient R KRISTINA [facility] [id number] Univers 12:30:00 12:30:00 REJI ity [facility] 2023-03-14 2023-03-14 Outpatient R BRIGITTE, [facility] [id number] Univers 14:30:00 14:30:00 ELENI ity [facility] 2023-03-14 2023-03-14 Outpatient R BRIGITTE, [facility] [id number] Univers 14:30:00 14:30:00 ELENI ity [facility] 2023-03-14 2023-03-14 Outpatient R BRIGITTE, [facility] [id number] Univers 14:30:00 14:30:00 ELENI [facility] 2023-03-14 2023-03-14 Outpatient R BRIGITTE, [facility] [id number] Univers 14:30:00 14:30:00 ELENI [facility] 2023-03-11 2023-03-[address] [facility] 1.2.840.114 [id number] Univers 00:00:00 00:00:00 [facility] 350.1.13.10 ity of [place] 4.2.7.2.686 Price as TRACE?BLEA [id number] [place] dical KN 044 [facility] OFFICE [facility] 2023-03-06 2023-03-06 Outpatient R FARRAH POWELL [facility] U TMB [id number] Univers 14:30:00 14:30:00 FARRAH POWELL ity [facility] 2023-03-02 2023-03-02 Telephone Srikanth [facility] 1.2.840.114 [id number] Univers 00:00:00 00:00:00 s, Farrah LIVE 350.1.13.10 ity [facility] 4.2.7.2.686 [place] [id number] [place] dicclay PAT 134 [facility] 2023-02-19 2023-02-20 Emergency X [facility] ERT [id number] Univers 21:14:00 01:07:00 WAKILI ity [facility] 2023-02-19 2023-02-20 Emergency [facility] 1.2.678.605 [id number] Univers 21:14:00 01:07:00 Selina LIVE 350.1.13.10 it[place] of [place] 4.2.7.2.[place] [facility] [id number] [facility] [address] [place] 2023-02-19 2023-02-19 Orders Doctor ERMA 1.2.840.114 [id number] Univers 00:00:00 00:00:00 Only Unassigned, LAXMI 350.1.13.10 ity of [place] [facility] 4.2.7.2.686 Price as [id number] [facility] [address] [place] 2023-02-13 2023-02-13 Outpatient R JINA CONTI [facility] [id number] Univers 15:20:00 16:14:06 JINA CONTI [facility] 2023-02-13 2023-02-[address] [facility] 1.2.840.114 [id number] Univers 15:20:00 16:14:06 Visit [facility] 350.1.13.10 ity of [place] 4.2.7.2.686 Price as TRACE?BLEA [id number] [place] dicclay ALEJANDROEY [address] [place] MEDICAL OFFICE [facility] 2023-02-06 2023-02-06 Telephone [facility] 1.2.840.11 [id number] Univers 00:00:00 00:00:00 Jasmyne ABRAMS 350.1.13.10 it y of [place] 4[place] HE[place] [id number] [address] 2023-02-06 2023-02-06 Telephone [facility] 1.2.840.11 [id number] Univers 00:00:00 00:00:00 Jasmyne ABRAMS 350.1.13.10 it y of [place] [id number] [address] 2023-01-31 2023-01-31 Outpatient R JASMYNE YANEZ [facility] B [id number] Univers 15:30:00 15:49:44 JASMYNE YANEZ ity [facility] 2023-01-31 2023-01-31 Office Mg [facility] 1.2.840.114 [id number] Univers 15:30:00 15:49:44 Visit Jasmyne ABRAMS 350.1.13.10 it y of [place] [id number] [address] 2023-01-31 2023-01-31 Orders Doctor [facility] 1.2.840.114 [id number] Univers 00:00:00 00:00:00 Only Unassigned, LAXMI 350.1.13.10 ity [place] [facility] 4.2.7.2.686 Price as [id number] [address] 2023-01-30 2023-01-30 Telephone [facility] 1.2.258.809 [id number] Univers 00:00:00 00:00:00 Jina HEALTH 350.1.13.10 ity of [place] 4.2.7.2.686 Price as TRACE?BLEA [id number] [address] MEDICAL OFFICE BUILDING 2023-01-26 2023-01-[address] [facility] 1.2.840.114 [id number] Univers 00:00:00 00:00:00 Jina HEALTH 350.1.13.10 ity [address] [facility] 4.2.7.2.686 Price as TRACE?BLEA [id number] [address] MEDICAL OFFICE BUILDING 2023-01-23 2023-01-23 Outpatient R JASMYNE YANEZ [facility] B [id number] Univers 13:00:00 13:00:00 RENEAJASMYNE AMARAL [facility] 2023-01-20 2023-01-20 Outpatient R JASMYNE YANEZ [facility] B [id number] Univers 10:00:00 10:00:00 VITALIYJASMYNE PIERRE [facility] 2023-01-18 2023-01-[address] [facility] 1.2.837.421 [id number] Univers 00:00:00 00:00:00 Jina HEALTH 350.1.13.10 ity of [place] 4.2.7.2.686 Price as TRACE?BLEA [phone] [place] PARKER [address] [place] MEDICAL OFFICE BUILDING 2023-01-11 2023-01-11 Outpatient R [facility] [id number] Univers 09:13:00 12:37:00 GRIS ity [facility] 2023-01-11 2023-01-11 [facility] 1.2.446.401 [id number] Univers 09:13:00 12:37:00 Encounter Gris HEALTH 350.1.13.10 ity of [place] 4.2.7.2.686 [place] [facility] [id number] [address] ([facility]) 2023-01-11 2023-01-11 Surgery [facility] 1.2.840.114 [id number] Univers 10:30:00 11:30:00 Gris SPECIALTY 350.1.13.10 ity of CARE 4.2.7.2.686 [facility]ly [facility] AT [id number] [place] QUINTEROS 020 [facility] 2023-01-11 2023-01-11 Orders Doctor ERMA 1.2.840.114 [id number] Univers 00:00:00 00:00:00 Only Unassigned, LAXMI 350.1.13.10 ity of [place] [facility] 4.2.7.2.686 Price as [id number] [address] 2023-01-10 2023-01-10 Outpatient R RENEAJASMYNE AMARAL [facility] B [id number] Univers 00:00:00 00:00:00 KAYLIEJUWANJASMYNE ity of [facility] 2023-01-10 2023-01-10 Patient Doctor [facility] 1.2.840.114 [id number] Univers 00:00:00 00:00:00 Secure Msg Unassigned, SPECIALTY 350.1.13.10 ity of [place] C[place] 4.2.7.2.686 [place] CENTER AT [id number] [place] dawn [address] 2023-01-09 2023-01-[address] [facility] 1.2.090.206 [id number] Univers 00:00:00 00:00:00 Eleni A HEALTH 350.1.13.10 it y of [place] 4.2.7.2.686 [place] [id number] [place] [address] OFFICE [facility] 2023-01-09 2023-01-[address] [facility] 1.2.840.114 [id number] Univers 00:00:00 00:00:00 Jina HEALTH 350.1.13.10 ity of [place] 4.2.7.2.686 Price as TRACE?BLEA [id number] [place] sergeyclay [address]ER [address] [place] MEDICAL OFFICE [facility] 2022-12-29 2022-12-29 Patient Doctor [facility] 1.2.840.114 [id number] Univers 00:00:00 00:00:00 Secure Msg Unassigned, [place] 350.1.13.10 ity [place] 4.2.7.2.686 [place] [facility] [id number] [place] dicclay NAL [address] [place] [address] 2022-12-27 2022-12-27 Telephone Ander [facility] 1.2.840.114 1 [id number] Univers 00:00:00 00:00:00 Vidya SPECIALTY 350.1.13.10 ity of C[place] 4.2.7.2.686 [place] C[place] AT [id number] [place] dicclay CRAWFORDSadia [address] [place] [address] 2022-12-19 2022-12-[address] [facility] 1.2.684.156 [id number] Univers 00:00:00 00:00:00 Eleni A HEALTH 350.1.13.10 it y of [place] 4.2.7.2.686 [place] [phone] [place] [address] [place] OFFICE [facility] 2022-12-19 2022-12-[address] [facility] 1.2.840.114 [id number] Univers 00:00:00 00:00:00 Jina HEALTH 350.1.13.10 ity of [place] 4.2.7.2.686 Price as TRACE?BLEA [id number] [address] OFFICE [facility] 2022-12-08 2022-12-08 Emergency X [facility] ERT [id number] Univers 14:34:00 17:44:00 ROWENA mccray [facility] 2022-12-08 2022-12-08 Emergency [facility] 1.2.551.991 [id number] Univers 14:34:00 17:44:00 Rowenaalthea PURIT[place] [id number] ity of [place] [id number] [place] [id number] [place] 2022-12-08 2022-12-[address] [facility] [id number] Univers 00:00:00 00:00:00 Eleni A [place] [id number] i ty [id number] [facility] [id number] [place] [id number] [facility] 2022-12-08 2022-12-08 Telephone [facility] [id number] Univers 00:00:00 00:00:00 Jina HEALTH [id number] ity [facility] [id number] Price as TRCAE?BLEA [id number] [address] OFFICE [facility] 2022-11-29 2022-11-29 Outpatient R RUSS [facility] [id number] Univers 09:40:00 10:08:23 TY mccray [facility] 2022-11-29 2022-11-29 Urgent Ty Solano [facility] [id number] Univers 09:40:00 10:08:23 Care Unknown, Attending HEALTH [id number] ity of [place] [id number] Price as TRACE?BLEA [phone] [address] [place] [address] MEDICAL OFFICE [facility] 2022-11-29 2022-11-29 Orders Doctor ERMA 1.2.840.114 [id number] Univers 00:00:00 00:00:00 Only Unassigned, LAXMI 350.1.13.10 ity of [place] [facility] 4.2.7.2.686 Price as [id number] [facility] [address] [place] 2022-11-29 2022-11-29 Telephone Russ [facility] 1.2.840.114 10 [id number] Univers 00:00:00 00:00:00 Reenu [facility] 350.1.13.10 it y of [place] 4.2.7.2.686 Price as TRACE?BLEA [id number] [address] OFFICE [facility] 2022-11-20 2022-11-20 Patient Doctor ERMA 1.2.840.114 [id number] Univers 00:00:00 00:00:00 Secure Msg Unassigned, LAXMI 350.1.13.10 ity of [place] [facility] 4.2.7.2.686 Price as [phone] [facility] [address] [place] 2022-11-15 2022-11-15 Nurse 1, Adc Infusion Chair [facility] 1.2. 840.114 [id number] Univers 12:00:00 14:30:00 Visit Reji Acevedo 350.1.13.10 ity of [place].2.7.2.[place] [phone] [facility] [address] 2022-11-15 2022-11-15 Outpatient R KRISTINA [facility] [id number] Univers 12:00:00 12:00:00 REJI mccray of [facility] 2022-11-14 2022-11-14 Emergency X GILLIAN [facility] ERT [id number] Univers 20:18:00 22:59:00 JENNA it y of [facility] 2022-11-14 2022-11-14 Emergency [place], [facility] 1.2.971.745 [id number] Univers 20:18:00 22:59:00 Jenna PURIJARROD 350.1.13.10 ity of [place] 4.2.7.2.686 [facility] [phone] [facility] [address] 2022-11-14 2022-11-14 Telephone Ander [facility] 1.2.840.114 1 [id number] Univers 00:00:00 00:00:00 Vidya SPECIALTY 350.1.13.10 ity of C[place] 4.2.7.2.686 [facility] [place] [phone] [place] serge[place]ay QUINTER[place] 072 [facility] 2022-11-11 2022-11-11 Patient Doctor [facility] 1.2.807.800 [id number] Univers 00:00:00 00:00:00 Secure Msg Unassigned, ICAL 350.1.13.10 ity of [place] [facility] 4.2.7.2.686 Price as BLDG [phone] [facility] [address] [place] 2022-11-10 2022-11-10 [facility] [id number] Univers 12:30:00 13:40:52 REJI lozanoy [facility] 2022-11-10 2022-11-10 Office Vidya Worthington [facility] 1.2.840.11 4 [id number] Univers 12:30:00 13:40:52 Visit Reji Acevedo SPECIALTY 350.1.13.10 ity of CARE 4.2.7.2.686 [facility] CENTER AT [phone] [place] sergeyclay QUINTER[place] 072 [facility] 2022-11-05 2022-11-05 Patient Doctor ERMA 1.2.840.114 [id number] Univers 00:00:00 00:00:00 Secure Msg Unassigned, LAXMI 350.1.13.10 ity of [place] [facility] 4.2.7.2.686 Price as [phone] [facility] [address] 2022-11-04 2022-11-04 Kevin Conti [facility] 1.2.840.114 [id number] Univers 00:00:00 00:00:00 [facility] 350.1.13.10 ity of [place] 4.2.7.2.686 Price as TRACE?BLEA [phone] [place] dawn PARKER [address] [place] MEDICAL OFFICE [facility] 2022-11-04 2022-11-04 Telephone Savana [facility] 1.2.840.114 [id number] Univers 00:00:00 00:00:00 ise, SPECIALTY 350.1.13.10 ity of [place] CARE 4.2.7.2.686 [place] C[place] [phone] [place] QUINTEROS 072 [facility] 2022-10-26 2022-10-26 Telephone [facility] 1.2.862.019 [id number] Univers 00:00:00 00:00:00 [facility] 350.1.13.10 ity of [place] 4.2.7.2.686 Price as TRACE?BLEA [phone] [place] PARKER [address] [place] [address] MEDICAL OFFICE [facility] 2022-10-17 2022-10-17 Telephone [facility] 1.2.549.359 [id number] [facility] [place] 00:00:00 00:00:00 [facility] 350.1.13.10 ity of [place] 4.2.7.2.686 Price as TRACE?BLEA [phone] [place] PARKER 044 [facility] OFFICE [facility] 2022-10-13 2022-10-13 Site Project Manager Lab, Ang - Chris [facility] 1.2.840.1 14 [id number] Univers 12:30:00 12:35:[address] [facility] 350.1.13.10 ity of [place] 4.2.7.2.686 Price as TRACE?BLEA 252.9616215 [facility] KEITH [address] [place] MEDICAL OFFICE BUILDING 2022-10-13 2022-10-13 Outpatient R GALLITO [facility] [id number] Univers 11:00:00 12:14:06 [facility] 2022-10-13 2022-10-[address] [facility] 1.2.840.114 [id number] Univers 11:00:00 12:14:06 Visit Jina HEALTH 350.1.13.10 ity of [place] 4.2.7.2.686 Price as TRACE?BLEA [phone] [facility] 044 [facility] OFFICE [facility] 2022-09-28 2022-09-28 Office An [facility] 1.2.735.826 [id number] Univers 11:30:00 12:00:00 Visit [facility] T [place] 350.1.13.10 ity [facility] 4.2.7.2.686 [place] [phone] [place] [facility] 085 [facility] 2022-09-28 2022-09-28 Outpatient R SRIRAM NOLANDELennie [facility] [id number] Univers 11:30:00 11:30:00 RAQUEL NOLAN [facility] 2022-09-27 2022-09-27 Refmarkos [facility] 1.2.840.114 [id number] Univers 00:00:00 00:00:00 Jina HEALTH 350.1.13.10 ity of [place] 4.2.7.2.686 Price as TRACE?BLEA [id number] [address] OFFICE [facility] 2022-09-22 2022-09-22 [facility] 1.2.840.114 [id number] Univers 00:00:00 00:00:00 Jina HEALTH 350.1.13.10 ity [facility] 4.2.7.2.686 Price as TRACE?BLEA [id number] [address] OFFICE [facility] 2022-09-22 2022-09-22 [facility] 1.2.840.114 [id number] Univers 00:00:00 00:00:00 Jina HEALTH 350.1.13.10 ity of [place] 4.2.7.2.686 Price as TRACE?BLEA [phone] [address] OFFICE [facility] 2022-08-30 2022-08-30 Outpatient R DIETER [facility] [id number] Univers 09:20:00 09:20:00 OSVALDO sadia [facility] 2022-08-29 2022-08-[address] [facility] 1.2.840.114 [id number] Univers 00:00:00 00:00:00 Jina HEALTH 350.1.13.10 ity of [place] 4.2.7.2.686 Price as TRACE?BLEA [id number] [address] MEDICAL OFFICE [facility] 2022-08-17 2022-08-17 Orders Doctor RITCHIE 1.2.840.114 [id number] Univers 00:00:00 00:00:00 Only Unassigned, LAXMI 350.1.13.10 ity of [place] [facility] 4.2.7.2.686 Price as [id number] [address] 2022-08-16 2022-08-16 Outpatient R CHANDRA GARCIA [facility] [id number] Univers 14:00:00 14:00:00 ity [facility] 2022-08-16 2022-08-16 Outpatient R CHANDRA GARCIA [facility] [id number] Univers 14:00:00 14:00:00 ity [facility] 2022-08-16 2022-08-16 Outpatient R GALLITO [facility] [id number] Univers 11:00:00 11:00:00 JINA ity [facility] 2022-08-16 2022-08-[address] [facility] 1.2.840.114 [id number] Univers 00:00:00 00:00:00 [facility] 350.1.13.10 ity of [place] 4.2.7.2.686 Price as TRACE?BLEA [phone] [address] MEDICAL OFFICE [facility] 2022-08-15 2022-08-[address] [facility] 1.2.840.114 [id number] Univers 00:00:00 00:00:00 Jina HEALTH 350.1.13.10 ity of [place] 4.2.7.2.686 Price as TRACE?BLEA [phone] [address] MEDICAL OFFICE [facility] 2022-08-12 2022-08-[address] [facility] 1.2.840.11 4 [id number] Univers 00:00:00 00:00:00 Jasmyne ABRAMS 350.1.13.10 it y of [place] [id number] [address] 2022-08-08 2022-08-08 Telephone [facility] 1.2.840.11 4 [id number] Univers 00:00:00 00:00:00 Jasmyne ABRAMS 350.1.13.10 it y [place] [facility] [phone] [address] 2022-08-08 2022-08-[address] [facility] 1.2.840.114 [id number] Univers 00:00:00 00:00:00 Jasmyne ABRAMS 350.1.13.10 it y [place] [facility] [phone] [address] 2022-08-02 2022-08-[address] [facility] 1.2.840.114 [id number] Univers 00:00:00 00:00:00 Wondiful A HEALTH 350.1.13.10 ity of [place] 4.2.7.2.686 Price as TRACE?BLEA [phone] [address] MEDICAL OFFICE BUILDING 2022-08-01 2022-08-01 [facility] 1.2.840.114 [id number] Univers 00:00:00 00:00:00 Secure [facility] Jina HEALTH 350.1.13.10 ity of [place] 4.2.7.2.686 Price as TRACE?BLEA [id number] [address] MEDICAL OFFICE BUILDING 2022-07-26 2022-07-26 Outpatient R JASMYNE YANEZ [facility] B [id number] Univers 14:00:00 15:08:39 JASMYNE YANEZ ity [facility] 2022-07-26 2022-07-26 Office Mg [facility] 1.2.840.114 [id number] Univers 14:00:00 15:08:39 Visit Cheryal ALIZA 350.1.13.10 it y of [place] 4.2.7.2.[place] [phone] [facility] ER [address] 2022-07-26 2022-07-26 Orders Doctor ERMA 1.2.840.114 [id number] Univers 00:00:00 00:00:00 Only Unassigned, LAXMI 350.1.13.10 ity of [place] [facility] 4.2.7.2.686 Price as [phone] [facility] [address] [place] 2022-07-12 2022-07-12 Outpatient R [facility] 065 [id number] Univers 09:15:00 09:15:00 ISE, ity of [facility] 2022-07-11 2022-07-11 Telephone [facility] 1.2.840.114 [id number] Univers 00:00:00 00:00:00 ise, SPECIALTY 350.1.13.10 ity of [facility] 4.2.7.2.686 [place] [phone] [place] QUINTEROS 072 [facility] 2022-07-05 2022-07-05 Site Project Manager Lab, [facility] 1.2.840.1 14 [id number] Univers 11:15:00 11:30:00 Visit Gallito [facility] 350.1.13.10 ity of [place] 4.2.7.2.686 Price as TRACE?BLEA 089.5137169 [place] PARKER [address] [place] MEDICAL OFFICE [facility] 2022-07-05 2022-07-05 Outpatient [facility] [id number] Univers 09:40:00 11:01:55 JINA ity [facility] 2022-07-05 2022-07-05 Office [facility] 1.2.840.114 [id number] Univers 09:40:00 11:01:55 Visit [facility] 350.1.13.10 ity of [place] 4.2.7.2.686 Price as TRACE?BLEA 322.5687239 [place] PARKER [address] [place] MEDICAL OFFICE [facility] 2022-07-05 2022-07-05 Orders Doctor RITCHIE 1.2.840.114 [id number] Univers 00:00:00 00:00:00 Only Unassigned, LAXMI 350.1.13.10 ity of [place] [facility] 4.2.7.2.686 Price as [id number] [address] 2022-07-04 2022-07-[address] [facility] 1.2.840.114 [id number] Univers 00:00:00 00:00:00 Angelina A HEALTH 350.1.13.10 i ty of [place] 4.2.7.2.686 Price as TRACE?BLEA [id number] [address] MEDICAL OFFICE [facility] 2022-07-03 2022-07-[address] [facility] 1.2.840.114 [id number] Univers 00:00:00 00:00:00 Angelina A HEALTH 350.1.13.10 i ty of [place] 4.2.7.2.686 Price as TRACE?BLEA [id number] [address] OFFICE [facility] 2022-07-03 2022-07-[address] [facility] 1.2.840.114 [id number] Univers 00:00:00 00:00:00 Eleni A [place] 350.1.13.10 i ty of [place] 4.2.7.2.686 [place] [id number] [facility] 059 [facility] 2022-07-03 2022-07-[address] [facility] 1.2.840.114 [id number] Univers 00:00:00 00:00:00 Faustino HEALTH 350.1.13.10 it y of [place] 4.2.7.2.686 Price as TRACE?BLEA 416.8938396 [address] OFFICE [facility] 2022-07-03 2022-07-03 Kevin Hunter [facility] 1.2.840.114 [id number] Univers 00:00:00 00:00:00 Wondiful A HEALTH 350.1.13.10 ity [facility] 4.2.7.2.686 Price as TRACE?BLEA 263.0010470 [address] MEDICAL OFFICE [facility] 2022-06-27 2022-06-27 [facility]phone [facility] 1.2.012.849 [id number] Univers 00:00:00 00:00:00 Angelina A HEALTH 350.1.13.10 i ty of [place] 4.2.7.2.686 Price as TRACE?BLEA [id number] [address] OFFICE [facility] 2022-06-25 2022-06-[address] [facility] 1.2.840.114 [id number] Univers 00:00:00 00:00:00 Wondiful A HEALTH 350.1.13.10 ity of [place] 4.2.7.2.686 Price as TRACE?BLEA 076.5033549 [address] OFFICE [facility] 2022-06-16 2022-06-16 Refill [facility] 1.2.840.114 [id number] Univers 00:00:00 00:00:00 Angelina A HEALTH 350.1.13.10 i ty of [place] 4.2.7.2.686 Price as TRACE?BLEA 109.7427730 [address] OFFICE [facility] 2022-06-15 2022-06-15 [facility] Calh[facility] 1.2.840.114 [id number] Univers 00:00:00 00:00:00 Satinder HEALTH 350.1.13.10 it y of [place] 4.2.7.2.686 Price as TRACE?BLEA 544.3519508 [address] OFFICE [facility] 2022-06-13 2022-06-13 [facility] Calh[facility] 1.2.840.114 [id number] Univers 00:00:00 00:00:00 Satinder HEALTH 350.1.13.10 it y of [place] 4.2.7.2.686 Price as TRACE?BLEA [id number] [address] OFFICE [facility] 2022-06-08 2022-06-08 Telephone [facility] 1.2.572.024 [id number] Univers 00:00:00 00:00:00 Angelina A HEALTH 350.1.13.10 i ty of [place] 4.2.7.2.686 Price as TRACE?BLEA [phone] [address] OFFICE [facility] 2022-06-08 2022-06-08 Patient Doctor [facility] 1.2.840.114 [id number] Univers 00:00:00 00:00:00 Secure Msg Unassigned, HEALTH 350.1.13.10 ity [place] 4.2.7.2.686 Price as TRACE?BLEA 582.5949195 [address] MEDICAL OFFICE [facility] 2022-06-08 2022-06-08 Patient Doctor ERMA .2.840.114 [id number] Univers 00:00:00 00:00:00 Secure Msg Unassigned, LAXMI 350.1.13.10 ity of [place] [facility] 4.2.7.2.686 Price as 226.3679225 [address] 2022-06-04 2022-06-[address] [facility] 1.2.840.114 [id number] Univers 00:00:00 00:00:00 Wondiful A HEALTH 350.1.13.10 ity of [place] 4.2.7.2.686 Price as TRACE?BLEA 099.7750090 [address] OFFICE [facility] 2022 2022 Kevin Thao [facility] 1.2.840.114 [id number] Univers 00:00:00 00:00:00 Shell HEALTH 350.1.13.10 it y of [place] 4.2.7.2.686 Price as TRACE?BLEA 130.9964625 [address] OFFICE [facility] [address] [facility] 1.2.840.114 [id number] Univers 00:00:00 00:00:00 Wondiful A HEALTH 350.1.13.10 ity of [place] 4.2.7.2.686 Price as TRACE?BLEA 143.9348088 [address] OFFICE [facility] 2022-06-01 2022-06-[address] [facility] 1.2.840.114 [id number] Univers 00:00:00 00:00:00 Shell HEALTH 350.1.13.10 it y of [facility] 4.2.7.2.686 Price as TRACE?BLEA [id number] [address] OFFICE [facility] 2022-05-31 2022-05-[address] [facility] 1.2.202.038 [id number] Univers 00:00:00 00:00:00 Angelina A HEALTH 350.1.13.10 i ty of [place] 4.2.7.2.686 Price as TRACE?BLEA 320.4901726 [address] OFFICE [facility] 2022-05-20 2022-05-[address] [facility] 1.2.840.114 [id number] Univers 00:00:00 00:00:00 Qiatianna [place] 350.1.13.10 ity of [facility] 4.2.7.2.[place] [id number] [place] dicclya NAL 059 [facility] 2022-05-19 2022-05-19 Telephone Yvonne Feliz [facility] 1.2.840.114 [id number] Univers 00:00:00 00:00:00 Winsons SPECIALTY 350.1.13.10 ity of C[place] 4.2.7.2.686 [place] CENTER AT 515.9325981 [facility] 072 [facility] 2022-05-19 2022-05-[address] [facility] 1.2.840.114 [id number] Univers 00:00:00 00:00:00 Angelina A HEALTH 350.1.13.10 i ty of [place] 4.2.7.2.686 Price as TRACE?BLEA [id number] [address] OFFICE [facility] 2022-05-17 2022-05-[address] [facility] 1.2.840.114 [id number] Univers 00:00:00 00:00:00 Jina MULTISPEC 350.1.13.10 ity of I[place] 4.2.7.2.686 [place] CENTER 161.4187344 [facility] AND MARTINEZ [address] [facility] 2022-05-16 2022-05-16 Refill Unique [facility] 1.2.840.114 [id number] Univers 00:00:00 00:00:00 Satinder HEALTH 350.1.13.10 it y of Henrik [place] 4.2.7.2.686 Price as TRACE?BLEA 701.7210662 [place] dawn PARKER [address] [place] MEDICAL OFFICE BUILDING 2022-05-10 2022-05-[address] [facility] 1.2.840.114 [id number] Univers 00:00:00 00:00:00 Jina PURIJARROD 350.1.13.10 ity of [place] 4.2.7.2.686 [place] [facility] 383.5788376 [place] dawn STEWART 044 [facility] 2022-05-10 2022-05-[address] [facility] 1.2.840.114 [id number] Univers 00:00:00 00:00:00 Angelina A HEALTH 350.1.13.10 i ty of [place] 4.2.7.2.686 Price as TRACE?BLEA 772.4504589 [place] PARKER [address] [place] MEDICAL OFFICE BUILDING 2022-05-06 2022-05-06 Telephone Yvonne Feliz [facility] 1.2.840.114 [id number] Univers 00:00:00 00:00:00 Winsons SPECIALTY 350.1.13.10 ity of CARE 4.2.7.2.686 [place] 601.3778041 [place] dawn QUINTEROS 072 [facility] 2022-05-05 2022-05-[address] [facility] 1.2.840.114 [id number] Univers 00:00:00 00:00:00 Eleni A HEALTH 350.1.13.10 it y of [place] 4.2.7.2.686 [place] 182.2676653 [facility] MEDICAL [address] OFFICE BUILDING 2022-05-04 2022-05-[address] [facility] 1.2.840.114 [id number] Univers 00:00:00 00:00:00 Wondiful A HEALTH 350.1.13.10 ity of [place] 4.2.7.2.686 Price as TRACE?BLEA [id number] [address] OFFICE [facility] 2022-05-04 2022-05-04 Kevin Calhoun [facility] 1.2.840.114 [id number] Univers 00:00:00 00:00:00 Satinder HEALTH 350.1.13.10 it y of [place] 4.2.7.2.686 Price as TRACE?BLEA [id number] [address] OFFICE [facility] 2022-05-04 2022-05-04 Refmarkos Briggs [facility] 1.2.840.114 [id number] Univers 00:00:00 00:00:00 Eleni Cor[address] [facility] [facility] 350.1.13.10 i ty of [facility] 4.2.7.2.686 [place] [phone] [place] 965109 [facility] 2022-04-21 2022-04-21 Patient Doctor ERMA 1.2.840.114 [id number] Univers 00:00:00 00:00:00 Secure Msg Unassigned, LAXMI 350.1.13.10 ity of [place] [facility] 4.2.7.2.686 Price as [id number] [address] 2022-04-19 2022-04-19 Outpatient R YVONNE FELIZ [facility] [id number] Univers 14:00:00 14:00:00 ity of [facility] 2022-04-12 2022-04-12 Kevin Thao [facility] 1.2.840.114 [id number] Univers 00:00:00 00:00:00 Shell HEALTH 350.1.13.10 it y of [place] 4.2.7.2.686 Price as TRACE?BLEA 272.5420988 [address] OFFICE [facility] 2022-04-11 2022-04-11 Patient Lonnie [facility] 1.2.840.114 [id number] Univers 00:00:00 00:00:00 Secure Msg Radha M HEALTH 350.1.13.10 ity of [place] 4.2.7.2.686 Price as TRACE?BLEA 267.0852632 [address] MEDICAL OFFICE [facility] 2022-04-11 2022-04-11 Patient Chela, [facility] 1.2.840.114 [id number] Univers 00:00:00 00:00:00 Secure Msg Angelina A HEALTH 350.1.13.10 ity of [place] 4.2.7.2.686 Price as TRACE?BLEA [id number] [address] MEDICAL OFFICE [facility] 2022-04-08 2022-04-08 Refill Dale, [facility] 1.2.840.114 [id number] Univers 00:00:00 00:00:00 Wondiful A HEALTH 350.1.13.10 ity of [place] 4.2.7.2.686 Price as TRACE?BLEA [id number] [address] OFFICE [facility] 2022-03-24 2022-03-[address] [facility] 1.2.840.114 [id number] Univers 00:00:00 00:00:00 Wondiful A HEALTH 350.1.13.10 ity of [place] 4.2.7.2.686 Price as TRACE?BLEA [phone] [address] OFFICE [facility] 2022-03-18 2022-03-[address] [facility] 1.2.840.114 [id number] Univers 00:00:00 00:00:00 Angelina A HEALTH 350.1.13.10 i ty of [place] 4.2.7.2.686 Price as TRACE?BLEA [phone] [address] OFFICE [facility] 2022-03-15 2022-03-15 Patient Lonnie [facility] 1.2.840.114 [id number] Univers 00:00:00 00:00:00 Secure Msg Radha M HEALTH 350.1.13.10 ity of [place] 4.2.7.2.686 Price as TRACE?BLEA [phone] [address] OFFICE [facility] 2022-03-14 2022-03-14 Patient Doctor [place] 1.2.840.114 [id number] Univers 00:00:00 00:00:00 Secure Msg Unassigned, HEALTH 350.1.13.10 ity [place] 4.2.7.2.686 Price as TRACE?BLEA [phone] [address] MEDICAL OFFICE [facility] 2022-03-11 2022-03-11 Patient Doctor [facility] 1.2.840.114 [id number] Univers 00:00:00 00:00:00 Secure Msg Unassigned, LAXMI 350.1.13.10 ity of [place] [facility] 4.2.7.2.686 Price as [phone] [address] 2022-03-10 2022-03-[address] [facility] 1.2.840.114 [id number] Univers 00:00:00 00:00:00 Secure Msg Angelina A [facility] 350.1.13.10 [facility] 4.2.7.2.686 Price as TRACE?BLEA [phone] [address] MEDICAL OFFICE [facility] 2022-03-04 2022-03-04 Site Project Manager Lab, Ang - Db [facility] 1.2.840.1 14 [id number] Univers 13:30:00 13:45:00 Visit Shell Thao HEALTH 350.1.13.10 ity of [place] 4.2.7.2.686 Price as TRACE?BLEA [phone] [facility] [address] [facility] OFFICE [facility] 2022-03-04 2022-03-04 Outpatient R CHELA [facility] [id number] Univers 13:00:00 13:36:26 ANGELINA ity of [facility] 2022-03-04 2022-03-[address] [facility] 1.2.840.114 [id number] Univers 13:00:00 13:36:26 Visit Angelina A HEALTH 350.1.13.10 i ty of [place] 4.2.7.2.686 Price as TRACE?BLEA [id number] [address] OFFICE [facility] 2022-03-04 2022-03-04 Kevin Calhoun [facility] 1.2.840.114 [id number] Univers 00:00:00 00:00:00 Satinder HEALTH 350.1.13.10 it y of [place] 4.2.7.2.686 Price as TRACE?BLEA [phone] [facility] [address] MEDICAL OFFICE [facility] 2022-03-03 2022-03-[address] [facility] 1.2.840.114 [id number] Univers 00:00:00 00:00:00 Strahil T [place] 350.1.13.10 ity of [place] [phone] [facility] 085 [facility] 2022-03-02 2022-03-02 Patient Doctor ERMA 1.2.840.114 [id number] Univers 00:00:00 00:00:00 Secure Msg Unassigned, LAXMI 350.1.13.10 ity of [place] [employer] [facility] [employer] [facility] 4.2.7.2.686 Price as [id number] [address] 2022-02-28 2022-02-[address] [facility] 1.2.840.114 [id number] Univers 00:00:00 00:00:00 Wondiful A HEALTH 350.1.13.10 ity of [place] 4.2.7.2.686 Price as TRACE?BLEA [phone] [address] OFFICE [facility] 2022-02-28 2022-02-[address] [facility] 1.2.840.114 [id number] Univers 00:00:00 00:00:00 Wondiful A HEALTH 350.1.13.10 ity [facility] 4.2.7.2.686 Price as TRACE?BLEA [id number] [address] OFFICE [facility] 2022-02-28 2022-02-[address] [facility] 1.2.691.787 [id number] [id number] Univers 00:00:00 00:00:00 Eleni A HEALTH 350.1.13.10 it y of [place].2.686 [place] [phone] Medi enrique [facility]ICAL [address] OFFICE BUILDING 2022-02-28 2022-02-[address] [facility] 1.2.840.114 [id number] Univers 00:00:00 00:00:00 Eleni A [place] 350.1.13.10 i ty of [facility] 4.2.7.2.[place] [phone] [address] 2022-02-28 2022-02-[address] [facility] 1.2.840.114 [id number] 75 Univers 00:00:00 00:00:00 Sancho [place] 350.1.13.10 ity of [facility] 4.2.7.2.[place] [phone] [address] 2022-02-27 2022-02-27 Refmarkos Hunter [facility] 1.2.840.114 [id number] 391 Univers 00:00:00 00:00:00 Wondiful A HEALTH 350.1.13.10 ity of [place] 4.2.7.2.686 Price as TRACE?BLEA [phone] [facility] 044 [facility] OFFICE [facility] 2022-02-22 2022-02-22 Office Brigitte [facility] 1.2.840.114 [id number] Univers 14:30:00 15:00:00 Visit Eleni A HEALTH 350.1.13.10 it y of [place].2.[place] [phone] [address] OFFICE [facility] 2022-02-22 2022-02-22 Outpatient R BRIGITTE [facility] [id number] Univers 14:30:00 14:30:00 ELENI ity of [facility] 2022-02-18 2022-02-18 Telephone Brigitte [facility] 1.2.259.950 [id number] Univers 00:00:00 00:00:00 Eleni A HEALTH 350.1.13.10 it y of [place] [id number] [address] OFFICE [facility] 2022-02-08 2022-02-08 Telephone Damian [facility] 1.2.581.834 [id number] 7853 Univers 00:00:00 00:00:[address] [facility] 350.1.13.10 ity of [place] 4.2.[place].2.[place] [phone] [facility] 059 [facility] 2022-01-28 2022-01-28 Kevin Salgado [facility] 1.2.840.114 [id number] Univers 00:00:00 00:00:[address] [facility] 350.1.13.10 ity of [place] 4.2.7.2.[place] [phone] [address] 2022-01-26 2022-01-[address] [facility] 1.2.840.114 [id number] 342 Univers 00:00:00 00:00:00 Wondiful A HEALTH 350.1.13.10 ity of [place] 4.2.7.2.686 Price as TRACE?BLEA [phone] [address] OFFICE [facility] 2022-01-05 2022-01-06 Outpatient X SHANE [facility] SUNNY [id number] Univers 00:38:00 19:15:00 JACOB mccray [facility] 2022-01-05 2022-01-06 Emergency CharlestonJenna lynch [facility] 1.2. 840.114 [id number] Univers 00:38:00 19:15:00 ChineduJacob ortega MARIA T 350.1.13.10 ity of [place].2.7.2.[place] C[place] [phone] [facility] 080 [place] 2022-01-04 2022-01-[address] [facility] 1.2.840.114 [id number] Univers 00:00:00 00:00:00 Wondiful A HEALTH 350.1.13.10 ity of [place] 4.2.7.2.686 Price as PROFESSIO [phone] [address] OFFICE [facility] 2021-12-29 2021-12-[address] [facility] 1.2.840.114 [id number] Univers 00:00:00 00:00:00 Wondiful A HEALTH 350.1.13.10 ity of [place] 4.2.7.2.686 Price as TRACE?BLEA [phone] [place] dawn P[place]ER 044 [facility] 2021-12-29 2021-12-[address] [facility] 1.2.840.114 [id number] Univers 00:00:00 00:00:00 Mercedes LIVE 350.1.13.10 i ty of [facility] 4.2.7.2.[place] [phone] [facility] 188 [facility] 2021-11-30 2021-11-[address] [facility] 1.2.840.114 [id number] Univers 00:00:00 00:00:00 Wondiful A HEALTH 350.1.13.10 ity of [facility] 4.2.7.2.686 Price as PROFESSIO [phone] [address] 2021-11-26 2021-11-26 Outpatient R CHANDRA GARCIA [facility] 062 [id number] Univers 14:15:00 14:15:00 ity of [facility] 2021-11-25 2021-11-25 Telephone [facility] 1.2.171.341 [id number] [id number] Univers 00:00:00 00:00:00 Rox LIVE 350.1.13.10 ity of [facility] 4.2.7.2.[place] [phone] [facility] 204 [facility] 2021-11-24 2021-11-[address] [facility] 1.2.840.114 [id number] Univers 00:00:00 00:00:00 Wondiful A HEALTH 350.1.13.10 ity of [place] 4.2.7.2.686 Price as PROFESSIO [phone] [address] 2021-11-13 2021-11-13 Patient Doctor ERMA 1.2.840.114 [id number] Univers 00:00:00 00:00:00 Secure Msg Unassigned, LAXMI 350.1.13.10 ity of [place] [employer] 4.2.7.2.686 Price as [phone] [facility] [address] 2021-11-11 2021-11-11 Patient Damian [facility] 1.2.840.114 [id number] Univers 00:00:00 00:00:00 Secure Msjose LIVE 350.1.13.10 ity of [place] 4.2.7.2.[place] [phone] W[place] dical NAL [address] [facility] 2021-11-10 2021-11-[address] [facility] 1.2.840.114 [id number] Univers 00:00:00 00:00:00 Wondiful A PRIMARY 350.1.13.10 ity of [place].2.[place] [phone] [place] dical 389 [place] 2021-11-09 2021-11-09 Hospital Chandra Garcia [facility] 1.2.840.114 [id number] Univers 18:00:00 23:59:00 Encounter MARIA T 350.1.13.10 it[place] of [place] 4.2.7.2.[place] [phone] [facility] 806 [place] 2021-11-09 2021-11-09 Outpatient R DALE [facility] [id number] Univers 16:00:00 16:49:28 WONDIFUL ity o f [facility] 2021-11-09 2021-11-09 Office Dale [facility] 1.2.840.114 [id number] Univers 16:00:00 16:49:28 Visit Wondiful A HEALTH 350.1.13.10 ity of [place] 4.2.7.2.686 Price as TRACE?BLEA [phone] [place] dical KNEY 044 [place] MEDICAL OFFICE BUILDING 2021-11-09 2021-11-09 Outpatient R DALE [facility] [id number] Univers 16:00:00 16:49:28 WONDIFUL ity o f [facility] 2021-11-09 2021-11-09 Outpatient R DALE [facility] [id number] Univers 16:00:00 16:00:00 WONDIFUL ity o f [facility] 2021-11-09 2021-11-09 Patient Dale [facility] 1.2.840.114 [id number] Univers 00:00:00 00:00:00 Secure Msg Wondiful A HEALTH 350.1.13.10 ity of [facility] 4.2.7.2.686 Price as TRACE?BLEA [phone] [address] OFFICE [facility] 2021-11-09 2021-11-09 Patient Dale [facility] 1.2.840.114 [id number] Univers 00:00:00 00:00:00 Secure Msg Wondiful A HEALTH 350.1.13.10 ity of [facility] 4.2.7.2.686 Price as TRACE?BLEA [phone] [address] 2021-11-09 2021-11-09 Orders Doctor ERMA 1.2.840.114 [id number] Univers 00:00:00 00:00:00 Only Unassigned, LAXMI 350.1.13.10 ity of [place] [employer] [facility] 4.2.7.2.686 Price as [id number] [address] 2021-11-03 2021-11-[address] [facility] 1.2.840.114 [id number] Univers 00:00:00 00:00:00 Wondiful A HEALTH 350.1.13.10 ity of [facility] 4.2.7.2.686 Price as PROFESSIO [id number] [facility] 044 [facility] ONE 2021-11-01 2021-11-01 Kevin Salgado [facility] 1.2.840.114 [id number] Univers 00:00:00 00:00:00 Qiangjun [place] 350.1.13.10 ity of [facility] 4.2.7.2.[place] [phone] [facility] 059 [facility] 2021-11-01 2021-11-01 Refmarkos Salgado [facility] 1.2.840.114 [id number] Univers 00:00:00 00:00:00 Qiangjun [place] 350.1.13.10 ity of [place] 4.2.7.2.[place] [phone] W[place] dical NAL 059 [facility] 2021-10-28 2021-10-[address] [facility] 1.2.840.114 [id number] Univers 00:00:00 00:00:00 Wondiful A HEALTH 350.1.13.10 ity of [facility] 4.2.7.2.686 Price as PROFESSIO [phone] [facility] NAL 044 [place] OFFICE [facility] 2021-10-22 2021-10-22 Telephone Gramm, [facility] 1.2.911.622 [id number] 4077 Univers 00:00:00 00:00:00 Rox A [place] 350.1.13.10 ity of [facility] 4.2.7.2.[place] [phone] [place] dical NAL 188 [facility] 2021-10-20 2021-10-[address] [facility] 1.2.840.114 [id number] Univers 00:00:00 00:00:00 Secure Msg Wondiful A HEALTH 350.1.13.10 ity of [facility] 4.2.7.2.686 Price as TRACE?BLEA [id number] Wv dical KNEY 044 [facility] OFFICE [facility] 2021-10-20 2021-10-[address] [facility] 1.2.840.114 [id number] Univers 00:00:00 00:00:00 Qiangjun [place] 350.1.13.10 ity of [facility] 4.2.7.2.[place] [phone] W[place] dical NAL 059 [facility] 2021-10-16 2021-10-[address] [facility] 1.2.840.114 [id number] Univers 00:00:00 00:00:00 Wondiful A HEALTH 350.1.13.10 ity of [place] 4.2.7.2.686 Price as PROFESSIO [id number] [facility] NAL 044 [facility] 2021-10-15 2021-10-15 Telephone Kizzy, [facility] 1.2.546.942 [id number] Univers 00:00:00 00:00:00 Rox A [place] 350.1.13.10 ity of [place] 4.2.7.2.[place] [phone] [facility] 204 [facility] 2021-10-08 2021-10-08 Telephone BrigitteVAL 1.2.840.114 [id number] Univers 00:00:00 00:00:00 Eleni A Y HEALTH 350.1.13.10 i ty of [facility] 4.2.7.2.686 [place] [phone] [place] 809689 [place] 2021-10-05 2021-10-05 Outpatient R BRYAN [facility] [id number] Univers 15:30:00 15:30:00 WENTONG ity [facility] 2021-10-04 2021-10-[address] [facility] 1.2.840.114 [id number] Univers 00:00:00 00:00:00 Secure Msg Wondiful A HEALTH 350.1.13.10 ity of [facility] 4.2.7.2.686 Price as TRACE?BLEA [id number] [facility] 044 [facility] OFFICE [facility] 2021-10-04 2021-10-04 Patient Dale [facility] 1.2.840.114 [id number] Univers 00:00:00 00:00:00 Secure Msg Wondiful A HEALTH 350.1.13.10 ity of [place] 4.2.7.2.686 Price as TRACE?BLEA [phone] [address] OFFICE BUILDING 2021-09-24 2021-09-[address] [facility] 1.2.840.114 [id number] Univers 00:00:00 00:00:00 Wondiful A HEALTH 350.1.13.10 ity of [place] 4.2.7.2.686 Price as PROFESSIO [id number] [address] OFFICE [facility] ONE 2021-09-20 2021-09-[address] [facility] 1.2.840.114 [id number] Univers 00:00:00 00:00:00 Wondiful A HEALTH 350.1.13.10 ity of [place] 4.2.7.2.686 Price as PROFESSIO [phone] W[place] dical NAL 044 [facility] ONE 2021-09-20 2021-09-20 Refill Damian [facility] 1.2.840.114 [id number] Univers 00:00:00 00:00:00 Sancho [place] 350.1.13.10 ity of [facility] 4.2.7.2.[place] [id number] [place] dical NAL 059 [facility] 2021-09-10 2021-09-10 Outpatient R CHANDRA GARCIA [facility] [id number] Univers 15:00:00 15:00:00 ity of [facility] 2021-09-08 2021-09-08 Outpatient R FISH, CHANDRA [facility] [id number] Univers 00:00:00 00:00:00 ity of [facility] 2021-09-08 2021-09-08 Outpatient R FISH, CHANDRA [facility] [id number] Univers 00:00:00 00:00:00 ity of [facility] 2021-09-08 2021-09-08 Orders Doctor ERMA 1.2.840.114 [id number] Univers 00:00:00 00:00:00 Only Unassigned, LAXMI 350.1.13.10 ity of [place] [employer] [facility] [facility] 4.2.7.2.686 Price as [id number] [address] 2021-09-07 2021-09-[address] [facility] 1.2.840.114 [id number] Univers 00:00:00 00:00:00 Surgery Rox A [place] 350.1.13.10 ity of [facility] 4.2.7.2.[place] [phone] [place] dical NAL 204 [facility] 2021-09-07 2021-09-07 Refmarkos Hunter [facility] 1.2.840.114 [id number] Univers 00:00:00 00:00:00 Wondiful A HEALTH 350.1.13.10 ity of [place] 4.2.7.2.686 Price as TRACE?BLEA [phone] [place] dawn P[place] 044 [facility] OFFICE [facility] 2021-09-02 2021-09-[address] [facility] 1.2.154.656 [id number] Univers 14:32:11 15:18:27 Visit Mercedes MARIA T 350.1.13.10 i ty of [facility] 4.2.7.2.[place] [phone] [place] dawn NAL 188 [facility] 2021-09-02 2021-09-02 Outpatient R RAYMON [facility] [id number] Univers 14:00:00 15:18:27 [facility] 2021-09-02 2021-09-02 Outpatient R RAYMON [facility] [id number] Univers 14:00:00 14:00:00 [facility] 2021-08-25 2021-08-[address] [facility] 1.2.840.114 [id number] Univers 10:15:56 10:35:56 ne Visit Raquel [facility].1.13.10 [facility] [place].2.[place] [phone] [place] dawn ST[place] 085 [facility] 2021-08-25 2021-08-25 Outpatient R RAQUEL NOLAN [facility] [id number] Univers 10:20:00 10:20:00 RAQUEL NOLAN [facility] 2021-08-13 2021-08-13 Patient Dale [facility] 1.2.840.114 [id number] Univers 00:00:00 00:00:00 Secure [facility] [employer] A [facility] 350.1.13.10 ity [facility] 4.2.7.2.686 Price as TRACE?BLEA [phone] [place] dawn [place] 044 [facility] OFFICE [facility] 2021-08-12 2021-08-12 Outpatient R CHANDRA GARCIA [facility] [id number] Univers 16:00:00 16:54:38 ity [facility] 2021-08-12 2021-08-12 Outpatient R CHANDRA GARCIA [facility] [id number] Univers 16:00:00 16:54:38 ity of [facility] 2021-08-12 2021-08-12 Office Chandra Garcia [facility] 1.2.840.114 [id number] Univers 15:41:02 16:54:38 Visit ALIZA 350.1.13.10 it y of [place].2.[place] HEALTH [id number] [address] 2021-08-12 2021-08-12 Outpatient R CHANDRA GARCIA [facility] [id number] Univers 16:00:00 16:00:00 ity of [facility] 2021-08-11 2021-08-11 Orders Doctor ERMA 1.2.840.114 [id number] Univers 00:00:00 00:00:00 Only Unassigned, LAXMI 350.1.13.10 ity of [place] [facility] 4.2.7.2.686 Price as [id number] [address] 2021-08-11 2021-08-[address] [facility] 1.2.840.114 [id number] Univers 00:00:00 00:00:00 Wondiful A HEALTH 350.1.13.10 ity of [place] 4.2.7.2.686 Price as TRACE?BLEA [id number] [address] MEDICAL OFFICE BUILDING 2021-08-11 2021-08-11 Patient Dale [facility] 1.2.840.114 [id number] Univers 00:00:00 00:00:00 Secure Msg Wondiful A HEALTH 350.1.13.10 ity of [place] 4.2.7.2.686 Price as TRACE?BLEA [id number] [address] OFFICE [facility] 2021-08-11 2021-08-[address] [facility] 1.2.840.114 [id number] Univers 00:00:00 00:00:00 Secure Msg Wondiful A HEALTH 350.1.13.10 ity of [place] 4.2.7.2.686 Price as TRACE?BLEA [phone] [address] MEDICAL OFFICE BUILDING 2021-08-11 2021-08-[address] [facility] 1.2.840.114 [id number] Univers 00:00:00 00:00:00 Wondiful A HEALTH 350.1.13.10 ity of [place] 4.2.7.2.686 Price as TRACE?BLEA [phone] [address] OFFICE [facility] 2021-08-11 2021-08-[address] [facility] 1.2.840.114 [id number] Univers 00:00:00 00:00:00 Wondiful A HEALTH 350.1.13.10 ity of [place] 4.2.7.2.686 Price as TRACE?BLEA [phone] [address] OFFICE [facility] 2021-08-10 2021-08-10 Outpatient R DALE [facility] [id number] Univers 12:00:00 12:00:00 WONDIFUL ity o f [facility] 2021-08-10 2021-08-10 Site Project Manager Lab, Ang - Db [facility] 1.2.840.1 14 [id number] Univers 11:41:25 11:56:25 Visit Torrey Hunter A HEALTH 350.1.13.1 0 ity of [place] 4.2.7.2.686 Price as TRACE?BLEA [id number] [address] OFFICE [facility] 2021-08-10 2021-08-[address] [facility] 1.2.840.114 [id number] Univers 00:00:00 00:00:00 Wondiful A HEALTH 350.1.13.10 ity of [place] 4.2.7.2.686 Price as TRACE?BLEA [phone] [address] OFFICE [facility] 2021-08-09 2021-08-[address] [facility] 1.2.840.114 [id number] Univers 00:00:00 00:00:00 Wondiful A HEALTH 350.1.13.10 ity of [place] 4.2.7.2.686 Price as TRACE?BLEA [phone] [address] 2021-08-06 2021-08-06 Patient Doctor ERMA 1.2.840.114 [id number] Univers 00:00:00 00:00:00 Secure Msg Unassigned, LAXMI 350.1.13.10 [place] 4.2.7.2.686 Price as [id number] [facility] 019 [place] 2021-08-05 2021-08-05 Pre Visit SARA [facility] 1.2.279.348 [id number] Univers 00:00:00 00:00:00 Outreach Maryuri RON 350.1.13.10 i ty of [place]2.7.2.[place] [phone] [facility] 086 [place] 2021-08-04 2021-08-04 Patient Dale [facility] 1.2.840.114 [id number] Univers 00:00:00 00:00:00 Secure Msg Wondiful A HEALTH 350.1.13.10 ity of [place] 4.2.7.2.686 Price as TRACE?BLEA [phone] [address] OFFICE [facility] 2021-07-31 2021-07-31 Case Dale [facility] 1.2.840.114 [id number] Univers 00:00:00 00:00:00 Management Wondiful A HEALTH 350.1.13.10 ity of [place] 4.2.7.2.686 Price as TRACE?BLEA 136.2857634 [address] 2021-07-31 2021-07-31 Case Dale [facility] 1.2.840.114 [id number] Univers 00:00:00 00:00:00 Management Wondiful A HEALTH 350.1.13.10 ity of [place] 4.2.7.2.686 Price as TRACE?BLEA [phone] [address] 2021-07-30 2021-07-30 Site Project Manager Lab, Ang - Db [facility] 1.2.840.1 14 [id number] Univers 09:10:19 09:38:14 Visit Torrey Hunter A HEALTH 350.1.13.1 0 ity of [place] 4.2.7.2.686 Price as TRACE?BLEA 188.4830432 [place] dawn PARKER 353 [facility] OFFICE [facility] 2021-07-30 2021-07-30 Outpatient R DALE [facility] [id number] Univers 09:00:00 09:00:00 WONDIFUL ity o f [facility] 2021-07-30 2021-07-[address] [facility] 1.2.840.114 [id number] Univers 00:00:00 00:00:00 Wondiful A HEALTH 350.1.13.10 ity of [place] 4.2.7.2.686 Price as TRACE?BLEA [id number] [address] OFFICE [facility] 2021-07-29 2021-07-29 [facility] [id number] Univers 16:15:00 16:59:16 WONDIFUL ity o [facility] 2021-07-29 2021-07-[address] [facility] 1.2.840.114 [id number] Univers 15:05:21 16:59:16 Visit Wondiful A HEALTH 350.1.13.10 ity of [place] 4.2.7.2.686 Price as TRACE?BLEA [phone] [address] OFFICE [facility] 2021-07-29 2021-07-29 [facility] [id number] Univers 16:15:00 16:15:00 WONDIFUL ity o f [facility] 2021-07-26 2021-07-26 [facility]phone [facility] 1.2.840.114 [id number] Univers 00:00:00 00:00:00 Wondiful A HEALTH 350.1.13.10 ity of [place] 4.2.7.2.686 Price as TRACE?BLEA [phone] [address] OFFICE [facility] 2021-07-19 2021-07-[address] [facility] [id number] Univers 00:00:00 00:00:00 [facility] 350.1.13.10 it y of [place] 4.2.7.2.686 Price as Trace?Blea [phone] Me dawn parker [address] [facility] Office [facility] 2021-07-19 2021-07-[address] [facility] [id number] Univers 00:00:00 00:00:00 [facility] 350.1.13.10 [place] 4.2.7.2.686 Price as TRACE?BLEA [phone] Me dawn PARKER 220 [facility] 2021-07-08 2021-07-09 Emergency [facility] 1.2.840.114 [id number] Univers 22:52:00 01:43:00 Dasia [place] 350.1.13.10 [place].7.2.686 [place] [phone] [address] 2021-07-08 2021-07-09 Emergency X [facility] ERT [id number] Univers 22:52:00 01:43:00 DASIA ity of [facility] 2021-07-08 2021-07-08 Orders Doctor ERMA 1.2.840.114 [id number] Univers 00:00:00 00:00:00 Only Unassigned, LAXMI 350.1.13.10 ity of [place] [facility] 4.2.7.2.686 Price as [phone] [facility] [address] [place] 2021-06-25 2021-06-25 Outpatient R DALE [facility] [id number] Univers 12:00:00 12:00:00 WONDIFUL ity o f [facility] 2021-06-25 2021-06-[address] [facility] 1.2.840.114 [id number] Univers 00:00:00 00:00:00 Wondiful [facility] 350.1.13.10 ity of [place] 4.2.7.2.686 Price as Trace?Blea [phone] [place] dawn alejandro 044 [facility] Office [facility] 2021-06-21 2021-06-21 Orders Doctor ERMA 1.2.840.114 [id number] Univers 00:00:00 00:00:00 Only Unassigned, LAXMI 350.1.13.10 ity of [place] [facility] 4.2.7.2.686 Price as [phone] [address] 2021-05-26 2021-05-26 IGGY Colindres 1.2.840.114 [id number] Univers 00:00:00 00:00:00 Wondiful [facility] Health 350.1.13.10 ity of [place] 4.2.7.2.686 Price as Professio [phone] [place] dic[place]ay [place]al 044 [place] Office [facility] One 2021-05-24 2021-05-24 Kevin Hunter [facility] 1.2.840.114 [id number] Univers 00:00:00 00:00:00 Wondiful A Health 350.1.13.10 ity of [place] 4.2.7.2.686 Price as Professio [phone] [place] 044 [facility] One 2021-05-20 2021-05-20 Refmarkos Hunter [facility] 1.2.840.114 [id number] Univers 00:00:00 00:00:00 Wondiful [facility] Health 350.1.13.10 ity of [place] 4.2.7.2.686 Price as Professio [phone] [place]44 [place] [facility] One 2021-05-06 2021-05-06 Patient Doctor IGGY 1.2.840.114 [id number] Univers 00:00:00 00:00:00 Secure Msg Unassigned, SPECIALTY 350.1.13.10 it[place] of [place]ARE [place] [phone] [place] sergeyclay QUINTEROS 072 [facility] 2021-05-06 2021-05-06 IGGY Samuels 1.2.840.114 [id number] Univers 00:00:00 00:00:00 Wondiful A Health 350.1.13.10 ity of [place] 4.2.7.2.686 Price as Professio [phone] [place] dicpa [place]al 044 [place] Office [facility] One 2021-05-04 2021-05-04 Patient Doctor ERMA Beltran.2.840.114 [id number] Univers 00:00:00 00:00:00 Secure Msg Unassigned, LAXMI 350.1.13.10 ity of [place] HOSPITAL 4.2.7.2.686 Price as [phone] [address] 2021-05-03 2021-05-03 Case Dale, [facility] 1.2.840.114 [id number] Univers 00:00:00 00:00:00 Management Wondiful A Health 350.1.13.10 ity of [place] 4.2.7.2.686 Pir[place] as Professio [phone] [place]al 044 [place] Office [facility] 2021-05-03 2021-05-[address] [facility] 1.2.840.114 [id number] Univers 00:00:00 00:00:00 Wondiful A Health 350.1.13.10 ity of [place] 4.2.7.2.686 Price as Professio [phone] [place] dical [place]al [address] [place] [address] 2021-05-03 2021-05-03 Telephone Damian [facility] 1.2.949.237 [id number] 0826 Univers 00:00:00 00:00:00 Qiangjun Health 350.1.13.10 i [place] [phone] [address] Office [facility] 2021-04-30 2021-04-30 Patient Brigitte [facility] 1.2.840.114 [id number] Univers 00:00:00 00:00:00 Secure Msg Eleni A HEALTH 350.1.13.10 it[place] of [place] [phone] [address] OFFICE [facility] 2021-04-29 2021-04-29 Site Project Manager Lab, Adc Fam Pob I [facility] 1.2. 840.114 [id number] Univers 11:47:44 12:12:26 Visit Torrey Hunter A Health 350.1.13.1 0 ity of [place] 4.2.7.2.686 Price as Professio [phone] [address] One 2021-04-29 2021-04-29 Office Dale [facility] 1.2.840.114 [id number] Univers 11:16:14 12:11:36 Visit Wondiful A Health 350.1.13.10 ity of [place] 4.2.7.2.686 Price as Professio [phone] [address] One 2021-04-29 2021-04-29 Outpatient R DALE [facility] [id number] Univers 11:00:00 11:00:00 WONDIFUL ity o f [facility] 2021-04-29 2021-04-[address] [facility] 1.2.840.114 [id number] Univers 00:00:00 00:00:00 Wondiful A Health 350.1.13.10 ity of [place] 4.2.7.2.686 Price as Professio [phone] [address] One 2021-04-29 2021-04-[address] [facility] 1.2.840.114 [id number] Univers 00:00:00 00:00:00 Wondiful A Health 350.1.13.10 ity of [place] 4.2.7.2.686 Price as Professio [phone] [address] One 2021-04-29 2021-04-29 Patient Brigitte [facility] 1.2.840.114 [id number] Univers 00:00:00 00:00:00 Secure Msg Eleni A Health 350.1.13.10 it[place] [phone] [facility] 059 [place] Office Building 2021-04-27 2021-04-27 Outpatient R BRIGITTE [facility] [id number] Univers 15:00:00 15:00:00 ELENI ity of [facility] 2021-04-27 2021-04-[address] [facility] 1.2.840.114 [id number] Univers 14:28:01 14:58:01 Visit Eleni A Health 350.1.13.10 it y [place] [phone] [place] 977489 [place] Office [facility] 2021-04-24 2021-04-24 Refmarkos Hunter [facility] 1.2.840.114 [id number] Univers 00:00:00 00:00:00 Wondiful A Health 350.1.13.10 ity of [place] 4.2.7.2.686 Price as Professio [phone] [address] One 2021-04-22 2021-04-[address] [facility] [facility] 1.2.840.114 [id number] Univers 00:00:00 00:00:00 Wondiful A Health 350.1.13.10 ity of [place] 4.2.7.2.686 Price as Professio [phone] [address] 2021-04-22 2021-04-[address] [facility] 1.2.453.543 [id number] 4144 Univers 00:00:00 00:00:00 Qiangbelle [place] 350.1.13.10 [place] Profess[place] [phone] [address] 2021-04-21 2021-04-[address] [facility] 1.2.702.145 [id number] [id number] Univers 00:00:00 00:00:00 Sancho [place] 350.1.13.10 [place].2.686 [place] Profess[place] [phone] [address] 2021-04-13 2021-04-[address] [facility] [address] [facility] 1.2.840.114 [id number] Univers 00:00:00 00:00:00 Wondiful A Health 350.1.13.10 ity of [place] 4.2.7.2.686 Price as Professio [phone] [address] One 2021-03-29 2021-03-29 Patient Doctor MOHINI 1.2.840.114 [id number] Univers 00:00:00 00:00:00 Secure Msg Unassigned, RON 350.1.13.10 it[place] [phone] [address] 2021-03-29 2021-03-29 Case Mohini Edwards 1.2.840.114 [id number] Univers 00:00:00 00:00:00 Management Serena Ron 350.1.13.10 [place].2.[place] [phone] [address] 2021-03-29 2021-03-29 Telephone Mohini Edwards 1.2.715.079 [id number] 6778 Univers 00:00:00 00:00:00 Serena Ron 350.1.13.10 [place]2.[place].2.[place] [phone] [address] 2021-03-29 2021-03-29 Telephone IGGY Briggs 1.2.465.992 [id number] 8805 Univers 00:00:00 00:00:00 Eleni A Health 350.1.13.10 it [place].2.[place] [phone] [facility] 059 [place] Office Building 2021-03-28 2021-03-28 RefIGGY Tillman 1.2.840.114 [id number] Univers 00:00:00 00:00:00 Wondiful A Health 350.1.13.10 ity of [place] 4.2.7.2.686 Price as Professio [phone] [place] dical [place]al 044 [place] Office Building One 2021-03-23 2021-03-23 RefIGGY Tillman 1.2.840.114 [id number] Univers 00:00:00 00:00:00 Wondiful A Health 350.1.13.10 ity of [place] 4.2.7.2.686 Price as Professio [phone] [place] dical nal 044 [place] Office Building One 2021-03-06 2021-03-06 Refmarkos Hunter INVENITA 1.2.840.114 [id number] Univers 00:00:00 00:00:00 Wondiful A Health 350.1.13.10 ity of [place] 4.2.7.2.686 Price as Professio [phone] [facility] 044 [facility] One 2021-03-01 2021-03-[address] [facility] 1.2.840.114 [id number] Univers 00:00:00 00:00:00 Wondiful A Health 350.1.13.10 ity of [place] 4.2.7.2.686 Price as Professio [phone] [facility] nal [address] [place] [address] One 2021-02-15 2021-02-15 Refill Damian [facility] 1.2.840.114 [id number] Univers 00:00:00 00:00:00 Qiangbelle [place] 350.1.13.10 [place] Profess[place] [phone] [facility] 059 [facility] 2021-02-05 2021-02-[address] [facility] 1.2.840.114 [id number] Univers 00:00:00 00:00:00 Wondiful A Health 350.1.13.10 ity of [place] 4.2.7.2.686 Price as Professio [phone] [address] One 2020-12-29 2020-12-29 Outpatient R DAMIAN [facility] [id number] Univers 13:30:00 13:30:00 QIASANDEEPJUN ity o f [facility] 2020-12-25 2020-12-[address] [facility] 1.2.840.114 [id number] Univers 00:00:00 00:00:00 Wondiful A Health 350.1.13.10 ity of [place] 4.2.7.2.686 Price as Professio [phone] [address] One 2020-12-08 2020-12-08 Patient Joe [facility] 1.2.840.114 [id number] Univers 00:00:00 00:00:00 Outreach Rigo PRIMARY 350.1.13.10 i ty of Ernst [facility] 4.2.7.2.686 [place] [phone] [place] dical [address] 2020-12-07 2020-12-07 Telephone Brigitte [facility] 1.2.619.930 [id number] 1293 Univers 00:00:00 00:00:00 Eleni A Health 350.1.13.10 it [place]2.7.2.686 [place] [phone] [facility] 059 [address] Office Building 2020-12-02 2020-12-02 Emergency Jenn Mahajan [facility] 1.2.840.114 [id number] Univers 15:35:00 18:41:00 [place] Live 350.1.13.10 i ty [place]2.7.2.686 [place] [phone] [place] 046064 [place] 2020-12-02 2020-12-02 Telephone Dale [facility] 1.2.840.114 [id number] Univers 00:00:00 00:00:00 Wondiful A Health 350.1.13.10 ity of [place] 4.2.7.2.686 Price as Professio [phone] [place]al 044 [address] Office Building One 2020-12-02 2020-12-02 Letter Maria C Shaw 1.2.840.114 [id number] Univers 00:00:00 00:00:00 (Out) LAXMI 350.1.13.10 it y of HOSPITAL 4.2.7.2.686 Price as [phone] [facility] 019 [address] 2020-11-24 2020-11-24 Emergency Jenn Mahajan [facility] 1.2.840.114 [id number] Univers 16:25:00 18:59:00 [place] Live 350.1.13.10 i ty [place]2.7.2.686 [place] [phone] [facility] 084 Branch 2020-11-24 2020-11-24 Emergency X Jenn MAHJAAN [facility] ERT [id number] Univers 16:25:00 18:59:00 ity of [facility] 2020-11-24 2020-11-24 Outpatient R DAMIAN, [facility] [id number] Univers 14:40:00 14:40:00 SANCHO ity o f [facility] 2020-11-24 2020-11-[address] [facility] 1.2.454.630 [id number] Univers 00:00:00 00:00:00 Qiangjun [place] 350.1.13.10 [place].2.[place] Profess[place] [phone] [facility] 059 [facility] 2020-11-13 2020-11-13 [facility] 1.2.840.114 [id number] Univers 00:00:00 00:00:00 Wondiful A Health 350.1.13.10 ity of [place] 4.2.7.2.686 Price as Professio [phone] [facility] 044 [place] Office [facility] One 2020-11-13 2020-11-13 [facility] 1.2.840.114 [id number] 00:00:00 00:00:00 Wondiful A Health 350.1.13.10 [place] 4.2.7.2.686 Professio [phone] [place] [address] Office [facility] One 2020-11-05 2020-11-05 Outpatient R [facility] [id number] Univers 15:00:00 15:00:00 SANCHO lozanoy o [facility] 2020-10-29 2020-10-29 [facility] [id number] Univers 14:00:00 14:00:00 SANCHO ity o f [facility] 2020-10-21 2020-10-21 Laboratory Pc, Adc Echo Room 1 [facility] 1 .2.840.114 [id number] Univers 15:00:16 15:51:49 Only Eleni Briggs A [place] 350.1.13.10 [place]2.[place].2.[place] Profess[place] [phone] [address] 2020-10-21 2020-10-21 Laboratory Pc, Adc [facility] 1.2.840.114 [id number] 15:00:16 15:51:49 Only Echo Room 1 [place] 350.1.13.10 - [place] 4.2.7.2.686 Professio [phone] [address] 2020-10-21 2020-10-21 Outpatient Uyen BRIGGS [facility] [id number] Univers 15:00:00 15:00:00 ELENI ity [facility] 2020-10-21 2020-10-21 Orders Doctor ERMA 1.2.840.114 [id number] Univers 00:00:00 00:00:00 Only Unassigned, LAXMI 350.1.13.10 ity of [place] H[facility]PITAL 4.2.7.2.686 Price as [phone] [address] 2020-10-21 2020-10-21 Orders Doctor ERMA 1.2.840.114 [id number] 00:00:00 00:00:00 Only Unassigned, LAXMI 350.1.13.10 [place] [facility] 4.2.7.2.[phone] [facility] 2020-10-06 2020-10-[address] [facility] 1.2.840.114 [id number] Univers 15:30:59 16:00:59 Visit Eleni A Health 350.1.13.10 it y [place]2.[place].2.[place] [phone] [address] Office [facility] 2020-10-06 2020-10-[address] [facility] 1.2.840.114 [id number] 15:30:59 16:00:59 Visit Eleni A Health 350.1.13.10 [place] 4.2.7.2.686 [place] [phone] [place] [address] Office [facility] 2020-10-06 2020-10-06 Outpatient Uyen BRIGGS [facility] [id number] Univers 15:30:00 15:30:00 ELENI ity [facility] 2020-09-21 2020-09-21 Coco Salgado [facility] 1.2.167.100 [id number] Univers 00:00:00 00:00:00 Qiangjun [place] 350.1.13.10 [place].2.[place] Profess[place] [phone] [place] [facility] 059 [facility] 2020-09-15 2020-09-15 Telephone [facility] 1.2.840.114 [id number] Univers 00:00:00 00:00:00 Wondiful A [place] 350.1.13.10 [place] 4.2.7.2.[place] Profess[place] [phone] [facility] 044 [facility] 2020-09-14 2020-09-14 Telephone [facility] 1.2.840.114 [id number] Univers 00:00:00 00:00:00 Wondiful A Health 350.1.13.10 ity of [place] 4.2.7.2.686 Price as Professio [phone] [address] 2020-09-14 2020-09-14 [facility] 1.2.151.318 [id number] Univers 00:00:00 00:00:00 Sancho [place] 350.1.13.10 [place].2.7.2.[place] Profess[place] [phone] [facility] 059 [facility] 2020-09-11 2020-09-11 Telephone [facility] 1.2.840.114 [id number] Univers 00:00:00 00:00:00 Wondiful A Health 350.1.13.10 ity of [place] 4.2.7.2.686 Price as Professio [phone] [address] 2020-09-11 2020-09-11 Orders Doctor RITCHIE 1.2.840.114 [id number] Univers 00:00:00 00:00:00 Only Unassigned, LAXMI 350.1.13.10 [place] 4.2.7.2.686 Price as [phone] [address] 2020-09-11 2020-09-11 Orders Doctor RITCHIE 1.2.840.114 [id number] 00:00:00 00:00:00 Only Unassigned, LAXMI 350.1.13.10 [place] [facility] 4.2.7.2.[phone] [facility] 2020-09-10 2020-09-[address] [facility] 1.2.840.114 [id number] Univers 16:41:05 17:12:10 ne Visit Torrey Wheatley Health 350.1.13.10 ity of [place] 4.2.7.2.686 Price as Professio [phone] [place] dical nal 044 [place] Office [facility] 2020-09-10 2020-09-10 [facility] [id number] Univers 16:00:00 16:00:00 WONDIFUL ity o f [facility] 2020-09-09 2020-09-[address] [facility] 1.2.840.114 [id number] Univers 00:00:00 00:00:00 Wondiful A Health 350.1.13.10 ity of [place] 4.2.7.2.686 Price as Professio [phone] [place] [facility] 044 [facility] 2020-09-08 2020-09-08 [facility] ..840.114 [id number] Univers 08:04:08 16:22:00 ne Visit Marysandeepbelle [place] 350.1.13.10 ity of [place].2.7.2.[place] Profess[place] [phone] [place] [facility] 059 [facility] 2020-09-08 2020-09-08 [facility]patient [facility] [id number] Univers 15:40:00 15:40:00 QIATIANNA ity o f [facility] 2020-09-07 2020-09-07 Transition Auroratravis Mohini 1.2.840.114 [id number] Univers 00:00:00 00:00:00 of Care Chayito L Ron 350.1.13.10 i ty [place]2.[place].2.[place] [phone] [address] 2020-08-31 2020-09-04 [facility] Eleni Briggs ..840.11 4 [id number] Univers 12:11:00 18:47:00 Encounter Lashawn Flood [place] 350.1.13.1 0 ity of Eleni [facility] 4.2.7.2.686 Lashawn Byrd [phone] Medical Anesthesia-Clarita, [employer] [address] Outpt-Clarita, [facility] 2020-08-31 2020-08-31 Anesthesia Rajni Gonzalez 1.2.840.114 [id number] Univers 08:40:00 12:01:00 Chilo Medina 350.1.13.10 ity of Hospital 4.2.7.2.686 Price as [phone] [address] 2020-08-31 2020-08-31 Outpatient R BRIGITTE [facility] [id number] Univers 07:00:00 07:00:00 ELENI ity of [facility] 2020-08-28 2020-08-28 Site Project Manager Candace, Adc Lab Main [facility] 1.2.8 40.114 [id number] Univers 11:47:00 12:02:00 Visit Eleni Briggs [place] 350.1.13.10 [place]2.7.2.[place] Profess[place] [phone] [place] dical nal 353 [facility] 2020-08-28 2020-08-28 Laboratory Only, Adc Test [facility] 1.2.840. 114 [id number] Univers 11:45:38 12:00:38 Only Eleni Briggs [place] 350.1.13.10 [place] 4[place]2.7.2.[place] [phone] [facility] 353 [place] 2020-08-28 2020-08-28 Outpatient R [facility] [id number] Univers 11:30:00 11:30:00 ity of [facility] 2020-08-28 2020-08-28 Kevin Hunter [facility] 1.2.840.114 [id number] Univers 00:00:00 00:00:00 Wondiful A Health 350.1.13.10 ity of [place] 4.2.7.2.686 Price as Professio [phone] [place] dical nal 044 [address] Office Building One 2020-08-27 2020-08-27 Patient Dale [facility] 1.2.840.114 [id number] Univers 00:00:00 00:00:00 Secure Msg Wondiful A HEALTH 350.1.13.[address] it[facility] [address] [facility] 4.2.7.2.686 Price as PROFESSIO [phone] [facility] 044 [facility] 2020-08-27 2020-08-[address] [facility] 1.2.840.114 [id number] Univers 00:00:00 00:00:00 Wondiful A Health 350.1.13.10 ity of [place] 4.2.7.2.686 Price as Professio [phone] [facility] 044 [facility] 2020-08-26 2020-08-[address] [facility] 1.2.840.114 [id number] Univers 14:40:59 15:33:13 Visit Sancho [place] 350.1.13.10 [place]2.[place].2.[place] Profess[place] [phone] [place] dicpa [place]al 059 [facility] 2020-08-26 2020-08-26 Outpatient R RAQUEL NOLAN [facility] [id number] Univers 14:00:00 14:00:00 RAQUEL NOLAN ity [facility] 2020-08-26 2020-08-[address] [facility] 1.2.840.114 [id number] Univers 10:16:14 10:46:14 ne Visit Raquel [place] 350.1.13.10 [place] 4[place]2.7.2.[place] [phone] [place] dicpa [place]al 085 [facility] 2020-08-24 2020-08-24 Outpatient R DAMIAN [facility] [id number] Univers 13:20:00 13:20:00 SANCHO ity o f [facility] 2020-08-24 2020-08-24 Telephone Janice Briggs 1.2.465.320 [id number] Univers 00:00:00 00:00:00 Eleni A Laxmi 350.1.13.10 it y of [facility] 4.2.7.2.686 Price as [phone] [facility] 051 [place] 2020-08-11 2020-08-11 Outpatient R CHANDRA GARCIA [facility] [id number] Univers 16:00:00 16:00:00 ity of [facility] 2020-07-28 2020-07-[address] [facility] 1.2.840.114 [id number] Univers 00:00:00 00:00:00 Wondiful A Health 350.1.13.10 ity of [place] 4.2.7.2.686 Price as Professio [phone] [address] Office [facility] 2020-07-13 2020-07-13 Hospital Eleni Briggs 1.2.840.11 [id number] Univers 08:00:00 08:29:00 Encounter Anesthesia-Clarita, [employer] Laxmi 350 .1.13.10 ity of [facility] 4.2.7.2.686 [place] [phone] [address] 2020-07-13 2020-07-13 [facility] [id number] Univers 08:00:00 08:00:00 ELENI ity of [facility] 2020-07-09 2020-07-09 Telephone Janice Briggs 1.2.415.794 [id number] Univers 00:00:00 00:00:00 Eleni A Laxmi 350.1.13.10 it y of [facility] 4.2.7.2.686 Price as [phone] [address] 2020-07-09 2020-07-[address] [facility] 1.2.840.114 [id number] Univers 00:00:00 00:00:00 Wondiful A Health 350.1.13.10 ity of [place] 4.2.7.2.686 Price as Professio [phone] [address] 2020-07-01 2020-07-[address] [facility] 1.2.840.114 [id number] Univers 00:00:00 00:00:00 Secure Msg Wondiful A Health 350.1.13.10 ity of [place] 4.2.7.2.686 Price as Professio [phone] [address] Office [facility] 2020-06-22 2020-06-22 Outpatient R BRIGITTE [facility] [id number] Univers 09:00:00 09:00:00 ELENI ity of [facility] 2020-06-15 2020-06-15 Telephone Brigitte Janice 1.2.808.019 [id number] Univers 00:00:00 00:00:00 Eleni A [place] 350.1.13.10 it y of Hospital 4.2.7.2.686 Price as [phone] [address] 2020-06-09 2020-06-[address] [facility] 1.2.840.114 [id number] Univers 15:15:38 17:02:51 Visit Eleni A Health 350.1.13.10 it y [place].2.[place] [phone] [address] Office [facility] 2020-06-09 2020-06-09 Outpatient R BRIGITTE [facility] [id number] Univers 15:30:00 15:30:00 ELENI ity [facility] 2020-06-09 2020-06-[address] [facility] 1.2.840.114 [id number] Univers 00:00:00 00:00:00 Wondiful A Health 350.1.13.10 ity of [place] 4.2.7.2.686 Price as Professio [phone] [address] Office [facility] 2020-06-02 2020-06-[address] [facility] 1.2.294.435 [id number] Univers 00:00:00 00:00:00 Qiangjun [place] 350.1.13.10 [place].2.[place] [phone] [address] 2020-06-02 2020-06-02 Orders Doctor RITCHIE 1.2.840.114 [id number] Univers 00:00:00 00:00:00 Only Unassigned, LAXMI 350.1.13.10 ity of [place] [facility] 4.2.7.2.686 Price as [phone] [facility] [address] 2020-05-26 2020-05-[address] [facility] 1.2.840.114 [id number] Univers 00:00:00 00:00:00 Wondinikunj Wheatley [place] 350.1.13.10 [place]y [place] 4.2.[place].2.[place] Profess[place] [phone] [facility] 044 [facility] 2020-05-26 2020-05-[address] [facility] 1.2.107.100 [id number] Univers 00:00:00 00:00:00 Eleni A Health 350.1.13.10 it y [place] [phone] [address] 2020-05-25 2020-05-25 [facility] [id number] Univers 10:20:00 10:20:00 SANCHO mccray o f [facility] 2020-05-25 2020-05-25 Telemedici [facility] 1.2.840.114 [id number] Univers 08:28:59 08:48:59 ne Visit Sancho [place] 350.1.13.10 [place] [phone] [place] [id number] [facility] 2020-05-11 2020-05-11 Orders Doctor RITCHIE 1.2.840.114 [id number] Univers 00:00:00 00:00:00 Only Unassigned, LAXMI 350.1.13.10 ity of [place] [facility] 4.2.7.2.686 Price as [phone] [address] 2020-05-05 2020-05-[address] [facility] [id number] Univers 00:00:00 00:00:00 Sancho [place] [id number] [place] [phone] [facility] 059 [facility] 2020-05-05 2020-05-05 Telephone Jeannette RITCHIE 1.2.840.114 [id number] Univers 00:00:00 00:00:00 , Mira WATTS 350.1.13.10 ity of [facility] 4.2.7.2.686 Price as [phone] [address] 2020-04-28 2020-04-28 Urgent Provider, [facility] 1.2.840.114 [id number] Univers 14:22:39 14:42:39 Care Shell Thao [facility] [id number] ity of [place] 4.2.7.2.686 Price [place] Professio [phone] [place] 044 [place] [facility] 2020-04-28 2020-04-28 Outpatient R [facility] [id number] Univers 14:40:00 14:40:00 ity [facility] 2020-04-22 2020-04-22 Outpatient R RAQUEL NOLAN [facility] [id number] Univers 15:00:00 15:00:00 [facility] 2020-04-[facility] 2020-04-[address] [facility] 1.2.840.114 [id number] Univers 07:56:37 14:53:59 ne Visit Sancho Live 350.1.13.10 [place] [phone] [place] dical [place]al 059 [facility] 2020-04-22 2020-04-[address] [facility] 1.2.840.114 [id number] Univers 14:15:39 14:45:39 ne Visit Sriramndlennie Live 350.1.13.10 [place] [phone] [place] dical [place]al 085 [facility] 2020-04-20 2020-04-20 Telephone Damian [facility] 1.2.755.453 [id number] [facility] [place] 00:00:00 00:00:00 Qiatianna Live 350.1.13.10 [place] [phone] [place] dical [place]al 059 [facility] 2020-04-20 2020-04-20 Telephone Jimenadu [facility] 1.2.840.114 [id number] Univers 00:00:00 00:00:00 Raquel Live 350.1.13.10 [place] [facility] [phone] [place] dical [place]al 085 [facility] 2020-04-16 2020-04-16 Outpatient R RAQUEL NOLAN [facility] [id number] Univers 20:00:00 20:00:00 RAQUEL NOLAN ity of [facility] 2020-04-16 2020-04-16 Site Project Manager 1, Adc Sleep Lab Bed [facility] 1. 2.840.114 [id number] Univers 12:55:11 15:25:11 Visit Raquel Nolan 350.1.13. 10 [place] [phone] [facility] [address] [place] 2020-04-16 2020-04-16 Orders Doctor ERMA 1.2.840.114 [id number] Univers 00:00:00 00:00:00 Only Unassigned, LAXMI 350.1.13.10 ity of [place] [facility] 4.2.7.2.686 Price as [phone] [facility] 009 [place] 2020-04-15 2020-04-15 Outpatient R BRYAN [facility] [id number] Univers 14:30:00 14:30:00 WENTONG ity of [facility] 2020-04-14 2020-04-14 Outpatient R [facility] [id number] Univers 15:00:00 15:00:00 ity of [facility] 2020-04-14 2020-04-14 Outpatient R [facility] [id number] Univers 14:00:00 14:00:00 ity of [facility] 2020-04-14 2020-04-14 Outpatient R [facility] [id number] Univers 14:00:00 14:00:00 ity of [facility] 2020-04-14 2020-04-14 Laboratory Only, Adc Test [facility] 1.2.840. 114 [id number] Univers 12:23:00 12:38:00 Only Raquel Nolan [place] 350.1.13. 10 [place] [phone] [address] 2020-04-07 2020-04-07 Outpatient R RAQUEL NOLAN [facility] [id number] Univers 20:00:00 20:00:00 ATARAQUEL CARTAGENA ity of [facility] 2020-04-07 2020-04-[address] [facility] 1.2.840.114 [id number] Univers 00:00:00 00:00:00 Wondiful A Health 350.1.13.10 ity of [place] 4.2.7.2.686 Price as Professio [phone] [facility] 044 [facility] 2020-04-03 2020-04-03 Outpatient R [facility] [id number] Univers 11:30:00 11:30:00 ity of [facility] 2020-04-01 2020-04-[address] [facility] 1.2.840.114 [id number] Univers 00:00:00 00:00:00 Sriramemeka Stewart [place] 350.1.13.10 [place] [phone] [facility] 085 [facility] 2020-04-01 2020-04-[address] [facility] 1.2.840.114 [id number] Univers 00:00:00 00:00:00 Wondiful A Health 350.1.13.10 ity of [place] 4.2.7.2.686 Price as Professio [phone] [facility] 044 [facility] 2020-03-31 2020-03-31 Outpatient R DAMIAN [facility] [id number] Univers 00:00:00 00:00:00 SANCHO ochoa [facility] 2020-03-27 2020-03-27 Laboratory Only, Adc Test [facility] 1.2.840. 114 [id number] Univers 14:35:03 14:50:03 Only Lul Davis [place] 350.1.13.10 [place] [phone] [address] 2020-03-27 2020-03-27 Outpatient R CARLIJAYN [facility] [id number] Univers 14:30:00 14:30:00 ity of [facility] 2020-03-27 2020-03-[address] [facility] 1.2.840.114 [id number] Univers 00:00:00 00:00:00 Wondiful A Health 350.1.13.10 ity of [place] 4.2.7.2.686 Price as Professio [phone] [facility] 044 [facility] 2020-03-27 2020-03-[address] [facility] 1.2.840.114 [id number] Univers 00:00:00 00:00:00 Wondiful A Health 350.1.13.10 ity of [place] 4.2.7.2.686 Price as Professio [phone] [address] 2020-03-23 2020-03-23 Outpatient R DAMIAN [facility] [id number] Univers 15:00:00 15:00:00 QIASANDEEPBELLE ity o f [facility] 2020-03-23 2020-03-[address] [facility] 1.2.155.282 [id number] Univers 00:00:00 00:00:00 Qiangjun [place] 350.1.13.10 [place] [phone] [facility] 059 [facility] 2020-03-23 2020-03-[address] [facility] 1.2.840.114 [id number] Univers 00:00:00 00:00:00 Wondiful A Health 350.1.13.10 ity of [place] 4.2.7.2.686 Price as Professio [phone] [address] 2020-03-17 2020-03-[address] [facility] [address] [facility] 1.2.840.114 [id number] Univers 00:00:00 00:00:00 Wondiful A Health 350.1.13.10 ity of [place] 4.2.7.2.686 Price as Professio [phone] [place] dical [place]al 044 [place] [facility] 2020-03-06 2020-03-[address] [facility] 1.2.840.114 [id number] Univers 00:00:00 00:00:00 Wondiful A Health 350.1.13.10 ity of [place] 4.2.7.2.686 Price as Professio [phone] [facility] 044 [place] [facility] 2020-03-04 2020-03-05 [facility] Salvador Briggschinedu Camacho 1.2.840.11 [id number] Univers 18:26:00 15:49:00 Encounter Phani Marquezim Laxmi 350. 1.13.10 ity of [facility], [facility] 4.2.7. 2.686 [facility] [phone] Medical Hunter Byrne 089 [facility] 2020-03-04 2020-03-04 [facility] Salvador Briggschinedu Camacho 1.2.840.11 [id number] Univers 14:00:00 18:25:00 Encounter Anesthesia-Clarita, [place] [employer] [place] 350 .1.13.10 ity of [facility] 4.2.7.2.686 Hunter Hodge [phone] [address] 2020-03-04 2020-03-04 Outpatient R BRIGITTE [facility] [id number] Univers 07:00:00 07:00:00 ELENI ity of [facility] 2020-02-27 2020-02-27 Telephone Janice Briggs 1.2.577.752 [id number] Univers 00:00:00 00:00:00 Eleni A [place] 350.1.13.10 it y of Hospital 4.2.7.2.686 Price as [phone] [address] 2020-02-26 2020-02-26 Telephone Janice Briggs 1.2.237.192 [id number] Univers 00:00:00 00:00:00 Eleni A Laxmi 350.1.13.10 it y of Hospital 4.2.7.2.686 Price as [phone] [facility] 247 [place] 2020-02-25 2020-02-25 Outpatient R RAQUEL NOLAN [facility] [id number] Univers 20:00:00 20:00:00 RAQUEL NOLAN ity of [facility] 2020-02-25 2020-02-25 Orders Doctor ERMA 1.2.840.114 [id number] Univers 00:00:00 00:00:00 Only Unassigned, LAXMI 350.1.13.10 ity of [facility] 4.2.7.2.686 Price as [phone] [facility] 009 [place] 2020-02-25 2020-02-[address] [facility] 1..840.114 [id number] Univers 00:00:00 00:00:00 Wondiful A [place] 350.1.13.10 [place] [phone] [place] dic[address] 2020-02-24 2020-02-24 Outpatient R [facility] [id number] Univers 13:00:00 13:00:00 ity of [facility] 2020-02-21 2020-02-[address] [facility] 1..840.114 [id number] Univers 00:00:00 00:00:00 Wondiful A [place] 350.1.13.10 [place] [phone] [address] 2020-02-21 2020-02-[address] [facility] 1..840.114 [id number] Univers 00:00:00 00:00:00 Wondiful A [place] 350.1.13.10 [place] [phone] [place] dic[place]al [address] [place] [address] 2020-02-20 2020-02-[address] [facility] 1.2.840.114 [id number] Univers 07:56:26 17:36:27 ne Visit Wondiful A [place] 350.1.13.10 [place] [phone] [place] dical [place]al 044 [facility] 2020-02-20 2020-02-20 Outpatient R DALE [facility] [id number] Univers 16:00:00 16:00:00 WONDIFUL ity o f [facility] 2020-02-18 2020-02-18 Outpatient R BRIGITTE [facility] [id number] Univers 16:30:00 16:30:00 ELENI ity of [facility] 2020-02-18 2020-02-[address] [facility] 1.2.840.114 [id number] Univers 15:00:00 15:30:00 ne Visit Mumtaz [place] 350.1.13.10 [place] [phone] [facility] [facility] 220 [facility] 2020-02-18 2020-02-[address] [facility] 1.2.840.114 [id number] Univers 08:57:15 09:27:15 ne Visit Eleni A Health 350.1.13.10 i ty of [place]2.7.2.686 [place] [phone] [facility] 059 [place] Office [facility] 2020-02-10 2020-02-10 [facility] [id number] Univers 13:20:00 13:20:00 QIASANDEEPBELLE ity o f [facility] 2020-02-10 2020-02-[address] [facility] 1.2.840.114 [id number] Univers 08:06:23 08:26:23 ne Visit Marysandeepbelle [place] 350.1.13.10 [place] [phone] [place] dical [place]al 059 [facility] 2020-01-30 2020-01-30 Telephone Dale [facility] 1.2.840.114 [id number] Univers 00:00:00 00:00:00 Wondiful A Health 350.1.13.10 ity of [place] 4.2.7.2.686 Price as Professio [phone] [place] dical nal 044 [place] [facility] 2020-01-29 2020-01-29 Telephone Dale [facility] 1.2.840.114 [id number] Univers 00:00:00 00:00:00 Wondiful A Health 350.1.13.10 ity of [place] 4.2.7.2.686 Price as Professio [phone] [facility] 044 [place] [facility] 2020-01-28 2020-01-28 Telephone Janice Briggs 1.2.745.622 [id number] Univers 00:00:00 00:00:00 Eleni A Laxmi 350.1.13.10 it y of Hospital 4.2.7.2.686 Price as [phone] [address] 2020-01-22 2020-01-[address] [facility] 1.2.840.114 [id number] Univers 13:00:00 13:30:00 ne Visit [facility] 350.1.13.10 [place] [phone] [facility] 220 [facility] 2020-01-22 2020-01-22 Outpatient R BRYAN [facility] [id number] Univers 13:00:00 13:00:00 WENTONG ity [facility] 2020-01-20 2020-01-20 Telephone Janice Briggs 1.2.525.877 [id number] Univers 00:00:00 00:00:00 Eleni A [place] 350.1.13.10 it y of Hospital 4.2.7.2.686 Price as [phone] [address] 2020-01-16 2020-01-16 Coco Briggs [facility] 1.2.800.762 [id number] Univers 00:00:00 00:00:00 Eleni A Health 350.1.13.10 [place] [phone] [facility] [address] ([facility]) 2020-01-13 2020-01-13 Telephone Janice Briggs 1.2.843.317 [id number] Univers 00:00:00 00:00:00 Eleni A [place] 350.1.13.10 it y of Hospital 4.2.7.2.686 Price as [phone] [address] 2020-01-10 2020-01-10 Telephone BrigitteJanice hensley 1.2.578.476 [id number] Univers 00:00:00 00:00:00 Eleni A Laxmi 350.1.13.10 it y of Hospital 4.2.7.2.686 Price as [phone] [address] 2020-01-08 2020-01-08 Telephone BrigitteJanice hensley 1.2.169.402 [id number] Univers 00:00:00 00:00:00 Eleni A [place] 350.1.13.10 it y of Hospital 4.2.7.2.686 Price as [phone] [address] 2020-01-07 2020-01-07 Outpatient R RAQUEL NOLAN [facility] [id number] Univers 15:00:00 15:00:00 [facility] 2020-01-07 2020-01-07 Mario Alberto Nolan [facility] 1.2.840.114 [id number] Univers 14:00:58 14:30:58 ne [facility] ZEPEDAPEC 350.1.13.10 ity of I[place] 4.2.7.2.[place] CENTER [phone] [facility] [place] [facility]85 [place] [facility] 2020-01-07 2020-01-07 Telephone Brigitte [facility] 1.2.611.353 [id number] Univers 00:00:00 00:00:00 Eleni A Health 350.1.13.10 it [place] [phone] [facility] [address] Building 2020-01-06 2020-01-06 Outpatient R GERONIMO [facility] [id number] Univers 15:00:00 15:00:00 VANDANA ity [facility] 2020-01-06 2020-01-06 Mario Alberto Melton [facility] 1.2.840.114 [id number] Univers 09:10:28 09:40:28 ne Visit Vandana ZEPEDAPEC 350.1.13.10 ity of I[place] 4.2.7.2.686 [place] [phone] [facility] AND MARTINEZ 085 [place] [facility] 2020-01-01 2020-01-[address] [facility] 1.2.840.114 [id number] Univers 00:00:00 00:00:00 Satinder Health 350.1.13.10 it y of Edroxy [place] 4.2.7.2.686 Price as Professio [phone] [place] dical [place]al 044 [address] [facility] One 2019-12-30 2019-12-30 Outpatient R [facility] [id number] Univers 08:00:00 08:00:00 ity of [facility] 2019-12-18 2019-12-18 Telephone Janice Briggs 1.2.689.702 [id number] Univers 00:00:00 00:00:00 Eleni A [place] 350.1.13.10 it y of [facility] 4.2.7.2.686 Price as [phone] [facility] [address] [place] 2019-12-16 2019-12-16 Outpatient R RAQUEL NOLAN [facility] [id number] Univers 15:00:00 15:00:00 RAQUEL NOLAN ity of [facility] 2019-12-03 2019-12-[address] [facility] 1.2.840.114 [id number] Univers 00:00:00 00:00:00 Wondiful A Health 350.1.13.10 ity of [place] 4.2.7.2.686 Price as Professio [phone] [facility] nal 044 [place] Office Building One 2019-11-28 2019-11-28 [facility] [id number] Univers 11:15:00 11:15:00 WONDIFUL ity o f [facility] 2019-11-27 2019-11-[address] [facility] 1.2.257.582 [id number] Univers 15:49:31 16:51:00 Suri S [place] 350.1.13.10 i ty [place] 4.2.7.2.[place] [phone] [facility] [address] 2019-11-27 2019-11-27 Outpatient R AN RAQUEL [facility] [id number] Univers 14:00:00 14:00:00 WILLSRIRAM CARTAGENABILLYLennie ity of [facility] 2019-11-27 2019-11-27 Orders Doctor ERMA 1.2.840.114 [id number] Univers 00:00:00 00:00:00 Only Unassigned, LAXMI 350.1.13.10 ity of [place] [facility] 4.2.7.2.686 Price as [phone] [address] 2019-11-21 2019-11-[address] [facility] 1.2.840.114 [id number] Univers 15:40:38 16:47:27 Visit Wondiful A Health 350.1.13.10 ity of [place] 4.2.7.2.686 Price as Professio [phone] [address] 2019-11-21 2019-11-21 [facility] [id number] Univers 15:45:00 15:45:00 WONDIFUL ity o f [facility] 2019-11-21 2019-11-[address] [facility] 1.2.840.114 [id number] Univers 00:00:00 00:00:00 Management Wondiful A Health 350.1.13.10 ity of [place] 4.2.7.2.686 Price as Professio [phone] [address] Office [facility] One 2019-11-21 2019-11-21 Telephone Janice Briggs 1.2.189.622 [id number] Univers 00:00:00 00:00:00 Eleni A [place] 350.1.13.10 it y of Hospital 4.2.7.2.686 Price as [phone] [address] 2019-11-20 2019-11-20 Telephone Janice Briggs 1.2.473.827 [id number] Univers 00:00:00 00:00:00 Eleni A Laxmi 350.1.13.10 it y of Hospital 4.2.7.2.686 Price as [phone] [address] 2019-11-19 2019-11-19 Office Brigitte [facility] 1.2.840.114 [id number] Univers 13:14:01 14:09:47 Visit Eleni A HEALTH 350.1.13.10 it [place] of [place] 4.2.7.2.686 [place] [facility] [phone] [facility] Primary & [address] [facility] 2019-11-19 2019-11-19 Outpatient R BRIGITTE [facility] [id number] Univers 13:00:00 13:00:00 ELENI ity of [facility] 2019-11-18 2019-11-[address] [facility] 1.2.840.114 [id number] Univers 00:00:00 00:00:00 Nouman PRIMARY 350.1.13.10 it y of CARE [place].2.7.2.[place] [phone] [place] dicpa [address] 2019-11-14 2019-11-14 Transition Mohini [place] 1.2.840.114 [id number] Univers 00:00:00 00:00:00 of Care Asim A Ron 350.1.13.10 ity of [place] 4.2.7.2.[place] [phone] [facility] [address] 2019-11-14 2019-11-[address] [facility] 1.2.503.137 [id number] Univers 00:00:00 00:00:00 Eleni A HEALTH 350.1.13.10 it y of [place] 4.2.7.2.686 [place] [phone] [facility] 9 [facility] 2019-11-14 2019-11-[address] [facility] 1.2.840.114 [id number] Univers 00:00:00 00:00:00 Wondiful A Health 350.1.13.10 ity of [place] 4.2.7.2.686 Price as Professio [phone] [place] dical [place]al 044 [address] One 2019-11-09 2019-11-13 [facility] Bandar Lawler 1.2.8 40.114 [id number] Univers 17:31:57 17:11:00 Encounter Edionwe, [facility] [place] 350.1.13.10 ity of [facility] 4.2.7.2 .686 [place] [phone] [facility] 090 [place] 2019-11-09 2019-11-13 Inpatient X EDESTELLA, [facility] [id number] Univers 17:31:57 17:11:00 [facility] ity [facility] 2019-11-09 2019-11-13 Inpatient X SHANE, [facility] [id number] Univers 17:31:57 17:11:00 [facility] 2019-11-13 2019-11-[address] [facility] 1.2.840.114 [id number] Univers 00:00:00 00:00:00 Wondiful A Health 350.1.13.10 ity of [place] 4.2.7.2.686 Price as Professio [phone] [facility] 044 [facility] 2019-11-13 2019-11-[address] [facility] 1.2.840.114 [id number] Univers 00:00:00 00:00:00 Wondiful A Health 350.1.13.10 ity of [place] 4.2.7.2.686 Price as Professio [phone] [facility] 044 [facility] 2019-10-23 2019-10-23 Coco Salgado [facility] 1.2.471.908 [id number] Univers 00:00:00 00:00:00 Sancho [place] 350.1.13.10 [place] [phone] [place] dicpa nal 059 [facility] 2019-10-22 2019-10-[address] [facility] [address] [facility] 1.2.840.114 [id number] Univers 00:00:00 00:00:00 Wondiful A Health 350.1.13.10 ity of [place] 4.2.7.2.686 Price as Professio [phone] [facility] 044 [facility] 2019-10-21 2019-10-[address] [facility] 1.2.840.114 [id number] Univers 00:00:00 00:00:00 Wondiful A Health 350.1.13.10 ity of [place] 4.2.7.2.686 Price as Professio [phone] [facility] 044 [place] Office Building One 2019-10-08 2019-10-08 Outpatient R DAMIAN [facility] [id number] Univers 17:15:00 17:15:00 SANCHO ity o f [facility] 2019-10-08 2019-10-08 Site Project Manager 1, Adc Lab [facility] 1.2.840.114 [id number] Univers 16:40:00 16:55:00 Visit Damian Sancho [place] 350.1.13.10 ity [place] [phone] [facility] [address] [place] 2019-10-08 2019-10-[address] [facility] 1.2.840.114 [id number] Univers 15:29:03 16:22:43 Visit Sancho [place] 350.1.13.10 [place]y [place].2.[place] [phone] [facility] 059 [facility] 2019-10-08 2019-10-08 Orders Doctor ERMA 1.2.840.114 [id number] Univers 00:00:00 00:00:00 Only Unassigned, LAXMI 350.1.13.10 ity of [place] [facility] 4.2.7.2.686 Price as [phone] [facility] [address] 2019-10-07 2019-10-07 Telephone Dale [facility] 1.2.840.114 [id number] Univers 00:00:00 00:00:00 Wondiful A Health 350.1.13.10 ity of [place] 4.2.7.2.686 Price as Professio [phone] [facility] 044 [place] [address] Building One 2019-05-24 2019-05-24 Telephone Brigitte [facility] 1.2.715.041 [id number] Univers 00:00:00 00:00:00 Eleni A HEALTH 350.1.13.10 it y of [place] 4.2.7.2.686 [place] [facility] [phone] [facility] & 0[address] [facility] 2019-05-06 2019-05-[address] [facility] 1.2.840.114 [id number] Univers 00:00:00 00:00:00 Wondiful A Health 350.1.13.10 ity breonna [place] 4.2.7.2.686 Price as Sandraio [phone] [place] dical nal [address] Building One Results Test Description Test Time Test Comments Results Result Comments Source POCT HEMOGLOBIN A1C TEST 2023-05-16 14:28:00 Test Item Value Reference Range Interpretation Comme nts POCT HBA1C (test code = 4548-4) 8.1 % 4-6 A Lab Interpretation (test code = 89762-7) [facility]normal [facility] [id number] 14:28:00 Test Item Value Reference Range Interpretation Comments POCT HBA1C (test code = 4548-4) 8.1 % 4-6 A Lab Interpretation (test code = Abnormal 88888-5) [facility] WITH [id number] 03:40:29 Test Item Value Reference Range Interpretation Comments WBC (test code = 6.26 See_Comment [Automated 6690-2) message] The sy stem which generated this result transmitted reference range : 4.30 - 11.10 10*3/?L. The reference range was not used to interpret this result as normal/abnormal . RBC (test code = 3.74 See_Comment L [Automated 789-8) message] The sy stem which generated this result transmitted reference range : 3.93 - 5.25 10*6/?L. The reference range was not used to interpret this result as normal/abnormal . HGB (test code = 9.6 g/dL 11.6-15.0 L 718-7) HCT (test code = 30.4 % 35.7-45.2 L 4544-3) MCV (test code = 81.3 fL 80.6-95.5 787-2) MCH (test code = 25.7 pg 25.9-32.8 L 785-6) MCHC (test code = 31.6 g/dL 31.6-35.1 786-4) RDW-SD (test code = 47.9 fL 39.0-49.9 68548-8) RDW-CV (test code = 16.3 % 12.0-15.5 H 788-0) PLT (test code = 208 See_Comment [Automated 777-3) message] The sy stem which generated this result transmitted reference range : 166 - 358 10*3/ ?L. The reference r arianna was not used to interpret this result as normal/abnormal . MPV (test code = 10.1 fL 9.5-12.9 20645-5) NRBC/100 WBC (test 0.0 See_Comment [Automat ed code = [id number]) message] The system which generated this result transmitted reference range : 0.0 - 10.0 /100 WBCs. The refer ence range was not u sed to interpret th is result as normal/abnormal . NRBC x10^3 (test code See_Comment [Auto mated = [id number]) message] The s ystem which generated this result transmitted reference range : 10*3/?L. The reference range was not used to interpret this result as normal/abnormal . GRAN MAT (NEUT) % 58.9 % (test code = 770-8) IMM GRAN % (test code 1.10 % = [id number]) LYMPH % (test code = 30.5 % 736-9) MONO % (test code = 6.4 % 5905-5) EOS % (test code = 2.1 % 713-8) BASO % (test code = 1.0 % 706-2) GRAN MAT x10^3(ANC) 3.69 10*3/uL 1.88-7.09 (test code = [id number]) IMM GRAN x10^3 (test 0.07 10*3/uL 0.00-0.06 H code = [id number]) LYMPH x10^3 (test code 1.91 10*3/uL 1.32-3.29 = 731-0) MONO x10^3 (test code 0.40 10*3/uL 0.33-0.92 = 742-7) EOS x10^3 (test code = 0.13 10*3/uL 0.03-0.39 711-2) BASO x10^3 (test code 0.06 10*3/uL 0.01-0.07 = 704-7) Lab Interpretation Abnormal (test code = 55183-9) [id number] 03:33:12 Test Item Value Reference Range Interpretation Comments TROPONIN I (test code = <=0.034 4530694980) CLEMENT (test code = CLEMENT) Reference (Normal) Range (defined by the 99th percentile reference limit): <= 0.034 ng/mL Note: Cardiac troponin begins to rise 3-4 hours after the onset of ischemia. Repeat in 4-6 hours if the sample was drawn within 3-4 hours of the onset of the symptom and found normal. Diagnosis of myocardial injury is made with acute changes in cTn concentrations with at least one serial sample above the 99th percentile upper reference limit (URL), taken together with the patient's clinical presentation. Biotin has been reported to cause a negative bias, interpret results relative to patient's use of biotin. Lab Interpretation Normal (test code = 79280-6) [id number] 03:30:12 Test Item Value Reference Range Interpretation Comments NT-proBNP (test code = 461 pg/mL <=125 H 7250359198) CLEMENT (test code = CLEMENT) Biotin has been reported to cause a negative bias, interpret results relative to patient's use of biotin. Lab Interpretation (test Abnormal code = 57455-2) [facility]OL[facility] ([id number])2023-02-20 03:22:31 Test Item Value Reference Range Interpretation Comments NA (test code = 139 mmol/L 135-145 8337302548) K (test code = 4.0 mmol/L 3.5-5.0 7393865220) CL (test code = 106 mmol/L 98-108 0527684778) CO2 TOTAL (test code = 24 mmol/L 23-31 9522953721) AGAP (test code = 9 2-16 7847874004) BUN (test code = 16 mg/dL 7-23 0698330044) GLUCOSE (test code = 170 mg/dL 70-110 H 7006654519) CREATININE (test code = 0.82 mg/dL 0.50-1.04 0671009418) TOTAL BILI (test code = 0.5 mg/dL 0.1-1.8 8734975081) CALCIUM (test code = 8.7 mg/dL 8.6-10.6 5076416477) T PROTEIN (test code = 7.5 g/dL 6.3-8.2 8301091843) ALBUMIN (test code = 4.3 g/dL 3.5-5.0 5474593858) ALK PHOS (test code = 127 U/L 34-122 H 3763824960) ALTv (test code = 23 U/L 5-35 1742-6) AST(SGOT) (test code = 27 U/L 13-40 1187745551) eGFR (test code = 72.1 mL/min/1.73m2 8434969205) CLEMENT (test code = CLEMENT) Association of Glomerular Filtration Rate (GFR) and Staging of Kidney Disease* + --+ --+ ------+| GFR (mL/min/1.73 m2) ?| With Kidney Damage ?| ?Without Kidney Damage+ --------+ --------+ +| ?>90 ?| ?Stage one ?| ? Normal ?+ ---+ ---+ -------+| ?60-89 ?| ?Stage two ?| ? Decreased GFR ? + --+ --+ ------+| ?30-59 ?| ?Stage three ?| ? Stage three ? + --+ --+ ------+| ?15-29 ?| ?Stage four ? | ? Stage four ?+ ---+ ---+ -------+| ?<15 (or dialysis) ? ?| ?Stage five ? | ? Stage five ?+ ---+ ---+ -------+ *Each stage assumes the associated GFR level has been in effect for at least three months. ?Stages 1 to 5, with or without kidney disease, indicate chronic kidney disease. Notes: Determination of stages one and two (with eGFR >59mL/min/1.73 m2) requires estimation of kidney damage for at least three months as defined by structural or functional abnormalities of the kidney, manifested by either:Pathological abnormalities or Markers of kidney damage (including abnormalities in the composition of the blood or urine or abnormalities in imaging tests). Lab Interpretation Abnormal (test code = 69362-5) [facility]-[id number] 03:20:50 Test Item Value Reference Interpretation Comments Range D-DIMER (test code = 0.35 See_Comment [Autom ated 4822890077) message] The system which generated this result transmitted reference range : <0.41 ?g/mL (FEU). The reference range was not used to interpret this result as normal/abnormal . CLEMENT (test code = This test may be CLEMENT) used in conjunction with a clinical pretest probability (PTP) assessment model to exclude venous thromboembolism (VTE) in patients suspected of deep venous thrombosis (DVT) and pulmonary embolism (PE) A D-Dimer value less than 0.50 ?g/ml (FEU) has a negative predicative value of 96 to 100% (95% CI)and 97 to 100% (95% CI) as an aid in the diagnosis of deep vein thrombosis (DVT) and pulmonary embolism when there is low or moderate pretest probability of PE or DVT. D-Dimer values are expressed in initial fibrinogen equivalent units (FEU)" The assay results should be used with other information, including the clinical context, in forming a diagnosis. Lab Interpretation Normal (test code = 09259-6) [facility] GLUCOSE (AUTOMATED)2023-01-11 14:47:56 Test Item Value Reference Range Interpretation Comments POCT GLU (test code = 8483521852) 91 mg/dL 70-110 Lab Interpretation (test code = Normal 47253-8) [facility] GLUCOSE (AUTOMATED)2023-01-11 14:47:56 Test Item Value Reference Range Interpretation Comments POCT GLU (test code = 0074464489) 91 mg/dL 70-110 Lab Interpretation (test code = Normal 47188-1) [facility] MOLECULAR [id number] 16:04:16 Test Item Value Reference Range Interpretation Comments POCT Molecular Strep (test code = Negative Negative 61167-9) Lab Interpretation (test code = Normal 94241-1) [facility] MOLECULAR [id number] 16:04:16 Test Item Value Reference Range Interpretation Comments POCT Molecular Strep (test code = Negative Negative 78641-5) Lab Interpretation (test code = Normal 88262-6) [facility]. METABOLIC PANEL ([id number])2022-11-15 03:28:21 Test Item Value Reference Range Interpretation Comments NA (test code = 138 mmol/L 135-145 4989881726) K (test code = 3.9 mmol/L 3.5-5.0 0049295222) CL (test code = 101 mmol/L 98-108 1656855787) CO2 TOTAL (test code = 27 mmol/L 23-31 5040699886) AGAP (test code = 10 2-16 9337203116) BUN (test code = 19 mg/dL 7-23 7949402936) GLUCOSE (test code = 104 mg/dL 70-110 8609124208) CREATININE (test code = 1.15 mg/dL 0.50-1.04 H 6007828979) TOTAL BILI (test code = 0.4 mg/dL 0.1-1.6 5472779029) CALCIUM (test code = 8.5 mg/dL 8.6-10.6 L 7564915028) T PROTEIN (test code = 8.3 g/dL 6.3-8.2 H 7362365097) ALBUMIN (test code = 4.7 g/dL 3.5-5.0 8188601600) ALK PHOS (test code = 101 U/L 34-122 3510313679) ALTv (test code = 26 U/L 5-35 1742-6) AST(SGOT) (test code = 39 U/L 13-40 1173051160) eGFR (test code = 48.8 mL/min/1.73m2 4030788291) CLEMENT (test code = CLEMENT) Association of Glomerular Filtration Rate (GFR) and Staging of Kidney Disease* + --+ --+ ------+| GFR (mL/min/1.73 m2) ?| With Kidney Damage ?| ?Without Kidney Damage+ --------+ --------+ +| ?>90 ?| ?Stage one ?| ? Normal ?+ ---+ ---+ -------+| ?60-89 ?| ?Stage two ?| ? Decreased GFR ? + --+ --+ ------+| ?30-59 ?| ?Stage three ?| ? Stage three ? + --+ --+ ------+| ?15-29 ?| ?Stage four ? | ? Stage four ?+ ---+ ---+ -------+| ?<15 (or dialysis) ? ?| ?Stage five ? | ? Stage five ?+ ---+ ---+ -------+ *Each stage assumes the associated GFR level has been in effect for at least three months. ?Stages 1 to 5, with or without kidney disease, indicate chronic kidney disease. Notes: Determination of stages one and two (with eGFR >59mL/min/1.73 m2) requires estimation of kidney damage for at least three months as defined by structural or functional abnormalities of the kidney, manifested by either:Pathological abnormalities or Markers of kidney damage (including abnormalities in the composition of the blood or urine or abnormalities in imaging tests). Lab Interpretation Abnormal (test code = 40358-0) [facility] WITH [id number] 03:21:03 Test Item Value Reference Range Interpretation Comments WBC (test code = 6.50 See_Comment [Automated 6690-2) message] The sy stem which generated this result transmitted reference range : 4.30 - 11.10 10*3/?L. The reference range was not used to interpret this result as normal/abnormal . RBC (test code = 3.62 See_Comment L [Automated 789-8) message] The sy stem which generated this result transmitted reference range : 3.93 - 5.25 10*6/?L. The reference range was not used to interpret this result as normal/abnormal . HGB (test code = 8.8 g/dL 11.6-15.0 L 718-7) HCT (test code = 28.4 % 35.7-45.2 L 4544-3) MCV (test code = 78.5 fL 80.6-95.5 L 787-2) MCH (test code = 24.3 pg 25.9-32.8 L 785-6) MCHC (test code = 31.0 g/dL 31.6-35.1 L 786-4) RDW-SD (test code = 44.1 fL 39.0-49.9 07559-1) RDW-CV (test code = 15.5 % 12.0-15.5 788-0) PLT (test code = 249 See_Comment [Automated 777-3) message] The sy stem which generated this result transmitted reference range : 166 - 358 10*3/ ?L. The reference r arianna was not used to interpret this result as normal/abnormal . MPV (test code = 9.3 fL 9.5-12.9 L 13116-9) NRBC/100 WBC (test 0.0 See_Comment [Automat ed code = 2973894661) message] The system which generated this result transmitted reference range : 0.0 - 10.0 /100 WBCs. The refer ence range was not u sed to interpret th is result as normal/abnormal . NRBC x10^3 (test code See_Comment [Auto mated = 6309201719) message] The s ystem which generated this result transmitted reference range : 10*3/?L. The reference range was not used to interpret this result as normal/abnormal . GRAN MAT (NEUT) % 56.2 % (test code = 770-8) IMM GRAN % (test code 0.30 % = 3480485214) LYMPH % (test code = 33.5 % 736-9) MONO % (test code = 7.5 % 5905-5) EOS % (test code = 1.7 % 713-8) BASO % (test code = 0.8 % 706-2) GRAN MAT x10^3(ANC) 3.65 10*3/uL 1.88-7.09 (test code = 7074880941) IMM GRAN x10^3 (test 0.00-0.06 code = 6465425767) LYMPH x10^3 (test code 2.18 10*3/uL 1.32-3.29 = 731-0) MONO x10^3 (test code 0.49 10*3/uL 0.33-0.92 = 742-7) EOS x10^3 (test code = 0.11 10*3/uL 0.03-0.39 711-2) BASO x10^3 (test code 0.05 10*3/uL 0.01-0.07 = 704-7) Lab Interpretation Abnormal (test code = 42335-9) [facility] WITH [id number] 21:27:47 Test Item Value Reference Range Interpretation Comments WBC (test code = See_Comment [Automated 6690-2) message] The sy stem which generated this result transmitted reference range : 4.30 - 11.10 10*3/?L. The reference range was not used to interpret this result as normal/abnormal . RBC (test code = See_Comment L [Automated 789-8) message] The sy stem which generated this result transmitted reference range : 3.93 - 5.25 10*6/?L. The reference range was not used to interpret this result as normal/abnormal . HGB (test code = 8.8 g/dL 11.6-15.0 L 718-7) HCT (test code = 28.3 % 35.7-45.2 L 4544-3) MCV (test code = 80.2 fL 80.6-95.5 L 787-2) MCH (test code = 24.9 pg 25.9-32.8 L 785-6) MCHC (test code = 31.1 g/dL 31.6-35.1 L 786-4) RDW-SD (test code = 46.0 fL 39.0-49.9 96495-4) RDW-CV (test code = 16.1 % 12.0-15.5 H 788-0) PLT (test code = See_Comment [Automated 777-3) message] The sy stem which generated this result transmitted reference range : 166 - 358 10*3/ ?L. The reference r arianna was not used to interpret this result as normal/abnormal . MPV (test code = 9.9 fL 9.5-12.9 20870-9) NRBC/100 WBC (test See_Comment [Automat ed code = 4421220203) message] The system which generated this result transmitted reference range : 0.0 - 10.0 /100 WBCs. The refer ence range was not u sed to interpret th is result as normal/abnormal . NRBC x10^3 (test code See_Comment [Auto mated = 8990801092) message] The s ystem which generated this result transmitted reference range : 10*3/?L. The reference range was not used to interpret this result as normal/abnormal . GRAN MAT (NEUT) % 57.5 % (test code = 770-8) IMM GRAN % (test code 0.30 % = 5937142557) LYMPH % (test code = 31.4 % 736-9) MONO % (test code = 8.3 % 5905-5) EOS % (test code = 1.7 % 713-8) BASO % (test code = 0.8 % 706-2) GRAN MAT x10^3(ANC) 3.40 10*3/uL 1.88-7.09 (test code = 5668050446) IMM GRAN x10^3 (test 0.00-0.06 code = 6923279918) LYMPH x10^3 (test code 1.86 10*3/uL 1.32-3.29 = 731-0) MONO x10^3 (test code 0.49 10*3/uL 0.33-0.92 = 742-7) EOS x10^3 (test code = 0.10 10*3/uL 0.03-0.39 711-2) BASO x10^3 (test code 0.05 10*3/uL 0.01-0.07 = 704-7) Lab Interpretation Abnormal (test code = 89957-1) [facility] WITH [id number] 21:27:47 Test Item Value Reference Range Interpretation Comments WBC (test code = See_Comment [Automated 6690-2) message] The sy stem which generated this result transmitted reference range : 4.30 - 11.10 10*3/?L. The reference range was not used to interpret this result as normal/abnormal . RBC (test code = See_Comment L [Automated 789-8) message] The sy stem which generated this result transmitted reference range : 3.93 - 5.25 10*6/?L. The reference range was not used to interpret this result as normal/abnormal . HGB (test code = 8.8 g/dL 11.6-15.0 L 718-7) HCT (test code = 28.3 % 35.7-45.2 L 4544-3) MCV (test code = 80.2 fL 80.6-95.5 L 787-2) MCH (test code = 24.9 pg 25.9-32.8 L 785-6) MCHC (test code = 31.1 g/dL 31.6-35.1 L 786-4) RDW-SD (test code = 46.0 fL 39.0-49.9 67348-8) RDW-CV (test code = 16.1 % 12.0-15.5 H 788-0) PLT (test code = See_Comment [Automated 777-3) message] The sy stem which generated this result transmitted reference range : 166 - 358 10*3/ ?L. The reference r arianna was not used to interpret this result as normal/abnormal . MPV (test code = 9.9 fL 9.5-12.9 51106-7) NRBC/100 WBC (test See_Comment [Automat ed code = 6130647260) message] The system which generated this result transmitted reference range : 0.0 - 10.0 /100 WBCs. The refer ence range was not u sed to interpret th is result as normal/abnormal . NRBC x10^3 (test code See_Comment [Auto mated = 6858378011) message] The s ystem which generated this result transmitted reference range : 10*3/?L. The reference range was not used to interpret this result as normal/abnormal . GRAN MAT (NEUT) % 57.5 % (test code = 770-8) IMM GRAN % (test code 0.30 % = 3656562848) LYMPH % (test code = 31.4 % 736-9) MONO % (test code = 8.3 % 5905-5) EOS % (test code = 1.7 % 713-8) BASO % (test code = 0.8 % 706-2) GRAN MAT x10^3(ANC) 3.40 10*3/uL 1.88-7.09 (test code = 4769445674) IMM GRAN x10^3 (test 0.00-0.06 code = 9190544985) LYMPH x10^3 (test code 1.86 10*3/uL 1.32-3.29 = 731-0) MONO x10^3 (test code 0.49 10*3/uL 0.33-0.92 = 742-7) EOS x10^3 (test code = 0.10 10*3/uL 0.03-0.39 711-2) BASO x10^3 (test code 0.05 10*3/uL 0.01-0.07 = 704-7) Lab Interpretation Abnormal (test code = 09795-6) [facility] WITH [id number] 21:27:47 Test Item Value Reference Range Interpretation Comments WBC (test code = See_Comment [Automated 6690-2) message] The sy stem which generated this result transmitted reference range : 4.30 - 11.10 10*3/?L. The reference range was not used to interpret this result as normal/abnormal . RBC (test code = See_Comment L [Automated 789-8) message] The sy stem which generated this result transmitted reference range : 3.93 - 5.25 10*6/?L. The reference range was not used to interpret this result as normal/abnormal . HGB (test code = 8.8 g/dL 11.6-15.0 L 718-7) HCT (test code = 28.3 % 35.7-45.2 L 4544-3) MCV (test code = 80.2 fL 80.6-95.5 L 787-2) MCH (test code = 24.9 pg 25.9-32.8 L 785-6) MCHC (test code = 31.1 g/dL 31.6-35.1 L 786-4) RDW-SD (test code = 46.0 fL 39.0-49.9 97333-3) RDW-CV (test code = 16.1 % 12.0-15.5 H 788-0) PLT (test code = See_Comment [Automated 777-3) message] The sy stem which generated this result transmitted reference range : 166 - 358 10*3/ ?L. The reference r arianna was not used to interpret this result as normal/abnormal . MPV (test code = 9.9 fL 9.5-12.9 83041-5) NRBC/100 WBC (test See_Comment [Automat ed code = 4856959445) message] The system which generated this result transmitted reference range : 0.0 - 10.0 /100 WBCs. The refer ence range was not u sed to interpret th is result as normal/abnormal . NRBC x10^3 (test code See_Comment [Auto mated = 6640627261) message] The s ystem which generated this result transmitted reference range : 10*3/?L. The reference range was not used to interpret this result as normal/abnormal . GRAN MAT (NEUT) % 57.5 % (test code = 770-8) IMM GRAN % (test code 0.30 % = 0712361537) LYMPH % (test code = 31.4 % 736-9) MONO % (test code = 8.3 % 5905-5) EOS % (test code = 1.7 % 713-8) BASO % (test code = 0.8 % 706-2) GRAN MAT x10^3(ANC) 3.40 10*3/uL 1.88-7.09 (test code = 9118058160) IMM GRAN x10^3 (test 0.00-0.06 code = 7840001039) LYMPH x10^3 (test code 1.86 10*3/uL 1.32-3.29 = 731-0) MONO x10^3 (test code 0.49 10*3/uL 0.33-0.92 = 742-7) EOS x10^3 (test code = 0.10 10*3/uL 0.03-0.39 711-2) BASO x10^3 (test code 0.05 10*3/uL 0.01-0.07 = 704-7) Lab Interpretation Abnormal (test code = 29430-8) [facility] WITH [id number] 21:27:47 Test Item Value Reference Range Interpretation Comments WBC (test code = 5.92 See_Comment [Automated 8590-2) message] The sy stem which generated this result transmitted reference range : 4.30 - 11.10 10*3/?L. The reference range was not used to interpret this result as normal/abnormal . RBC (test code = 3.53 See_Comment L [Automated 439-8) message] The sy stem which generated this result transmitted reference range : 3.93 - 5.25 10*6/?L. The reference range was not used to interpret this result as normal/abnormal . HGB (test code = 8.8 g/dL 11.6-15.0 L 718-7) HCT (test code = 28.3 % 35.7-45.2 L 4544-3) MCV (test code = 80.2 fL 80.6-95.5 L 787-2) MCH (test code = 24.9 pg 25.9-32.8 L 785-6) MCHC (test code = 31.1 g/dL 31.6-35.1 L 786-4) RDW-SD (test code = 46.0 fL 39.0-49.9 22542-4) RDW-CV (test code = 16.1 % 12.0-15.5 H 788-0) PLT (test code = 258 See_Comment [Automated 777-3) message] The sy stem which generated this result transmitted reference range : 166 - 358 10*3/ ?L. The reference r arianna was not used to interpret this result as normal/abnormal . MPV (test code = 9.9 fL 9.5-12.9 43514-8) NRBC/100 WBC (test 0.0 See_Comment [Automat ed code = 0740144487) message] The system which generated this result transmitted reference range : 0.0 - 10.0 /100 WBCs. The refer ence range was not u sed to interpret th is result as normal/abnormal . NRBC x10^3 (test code See_Comment [Auto mated = 4392337003) message] The s ystem which generated this result transmitted reference range : 10*3/?L. The reference range was not used to interpret this result as normal/abnormal . GRAN MAT (NEUT) % 57.5 % (test code = 770-8) IMM GRAN % (test code 0.30 % = 3707601471) LYMPH % (test code = 31.4 % 736-9) MONO % (test code = 8.3 % 5905-5) EOS % (test code = 1.7 % 713-8) BASO % (test code = 0.8 % 706-2) GRAN MAT x10^3(ANC) 3.40 10*3/uL 1.88-7.09 (test code = 6973686107) IMM GRAN x10^3 (test 0.00-0.06 code = 1778991880) LYMPH x10^3 (test code 1.86 10*3/uL 1.32-3.29 = 731-0) MONO x10^3 (test code 0.49 10*3/uL 0.33-0.92 = 742-7) EOS x10^3 (test code = 0.10 10*3/uL 0.03-0.39 711-2) BASO x10^3 (test code 0.05 10*3/uL 0.01-0.07 = 704-7) Lab Interpretation Abnormal (test code = 92628-6) [facility] WITH [id number] 23:08:41 Test Item Value Reference Range Interpretation Comments WBC (test code = See_Comment [Automated 6690-2) message] The sy stem which generated this result transmitted reference range : 4.30 - 11.10 10*3/?L. The reference range was not used to interpret this result as normal/abnormal . RBC (test code = See_Comment L [Automated 789-8) message] The sy stem which generated this result transmitted reference range : 3.93 - 5.25 10*6/?L. The reference range was not used to interpret this result as normal/abnormal . HGB (test code = 9.4 g/dL 11.6-15 L 718-7) HCT (test code = 30.6 % 35.7-45.2 L 4544-3) MCV (test code = 82.0 fL 80.6-95.5 787-2) MCH (test code = 25.2 pg 25.9-32.8 L 785-6) MCHC (test code = 30.7 g/dL 31.6-35.1 L 786-4) RDW-SD (test code = 45.3 fL 39-49.9 71885-1) RDW-CV (test code = 15.1 % 12-15.5 788-0) PLT (test code = See_Comment [Automated 777-3) message] The sy stem which generated this result transmitted reference range : 166 - 358 10*3/ ?L. The reference r arianna was not used to interpret this result as normal/abnormal . MPV (test code = 10.4 fL 9.5-12.9 98220-4) NRBC/100 WBC (test See_Comment [Automat ed code = 7205423536) message] The system which generated this result transmitted reference range : 0.0 - 10.0 /100 WBCs. The refer ence range was not u sed to interpret th is result as normal/abnormal . NRBC x10^3 (test code See_Comment [Auto mated = 7001752989) message] The s ystem which generated this result transmitted reference range : 10*3/?L. The reference range was not used to interpret this result as normal/abnormal . GRAN MAT (NEUT) % 67.9 % (test code = 770-8) IMM GRAN % (test code 0.40 % = 5855342262) LYMPH % (test code = 21.9 % 736-9) MONO % (test code = 7.6 % 5905-5) EOS % (test code = 1.5 % 713-8) BASO % (test code = 0.7 % 706-2) GRAN MAT x10^3(ANC) 3.65 10*3/uL 1.88-7.09 (test code = 6130678034) IMM GRAN x10^3 (test 0-0.06 code = 5658501399) LYMPH x10^3 (test code 1.18 10*3/uL 1.32-3.29 L = 731-0) MONO x10^3 (test code 0.41 10*3/uL 0.33-0.92 = 742-7) EOS x10^3 (test code = 0.08 10*3/uL 0.03-0.39 711-2) BASO x10^3 (test code 0.04 10*3/uL 0.01-0.07 = 704-7) Lab Interpretation Abnormal (test code = 21390-6) [facility] WITH [id number] 23:08:41 Test Item Value Reference Range Interpretation Comments WBC (test code = See_Comment [Automated 5390-2) message] The sy stem which generated this result transmitted reference range : 4.30 - 11.10 10*3/?L. The reference range was not used to interpret this result as normal/abnormal . RBC (test code = See_Comment L [Automated 209-8) message] The sy stem which generated this result transmitted reference range : 3.93 - 5.25 10*6/?L. The reference range was not used to interpret this result as normal/abnormal . HGB (test code = 9.4 g/dL 11.6-15 L 718-7) HCT (test code = 30.6 % 35.7-45.2 L 4544-3) MCV (test code = 82.0 fL 80.6-95.5 787-2) MCH (test code = 25.2 pg 25.9-32.8 L 785-6) MCHC (test code = 30.7 g/dL 31.6-35.1 L 786-4) RDW-SD (test code = 45.3 fL 39-49.9 05653-0) RDW-CV (test code = 15.1 % 12-15.5 788-0) PLT (test code = See_Comment [Automated 777-3) message] The sy stem which generated this result transmitted reference range : 166 - 358 10*3/ ?L. The reference r arianna was not used to interpret this result as normal/abnormal . MPV (test code = 10.4 fL 9.5-12.9 36656-6) NRBC/100 WBC (test See_Comment [Automat ed code = 9142419450) message] The system which generated this result transmitted reference range : 0.0 - 10.0 /100 WBCs. The refer ence range was not u sed to interpret th is result as normal/abnormal . NRBC x10^3 (test code See_Comment [Auto mated = 5917685158) message] The s ystem which generated this result transmitted reference range : 10*3/?L. The reference range was not used to interpret this result as normal/abnormal . GRAN MAT (NEUT) % 67.9 % (test code = 770-8) IMM GRAN % (test code 0.40 % = 5252343999) LYMPH % (test code = 21.9 % 736-9) MONO % (test code = 7.6 % 5905-5) EOS % (test code = 1.5 % 713-8) BASO % (test code = 0.7 % 706-2) GRAN MAT x10^3(ANC) 3.65 10*3/uL 1.88-7.09 (test code = 2909787189) IMM GRAN x10^3 (test 0-0.06 code = 1734972067) LYMPH x10^3 (test code 1.18 10*3/uL 1.32-3.29 L = 731-0) MONO x10^3 (test code 0.41 10*3/uL 0.33-0.92 = 742-7) EOS x10^3 (test code = 0.08 10*3/uL 0.03-0.39 711-2) BASO x10^3 (test code 0.04 10*3/uL 0.01-0.07 = 704-7) Lab Interpretation Abnormal (test code = 14097-2) [facility] URINALYSIS W SPECIFIC [id number] 15:25:00 Test Item Value Reference Range Interpretation Comments POCT U SP GRAV (test code = 1.005 mg/dl 1.005-1.025 3255) POCT PH U (test code = 3254) 6 mg/dl 5-8 POCT U LEUK EST (test code = + Negative - Negative 3263) POCT U NIT (test code = negative Negative - Negative 3262) POCT U PROT (test code = negative Negative - Negative 3259) POCT U GLU (test code = normal Negative - Negative 3256) POCT U KETONE (test code = negative Negative - Negative 3258) POCT U UROBILI (test code = normal 0.2-1 3260) POCT U BILI (test code = negative Negative - Negative 3261) POCT U BLD (test code = negative Negative - Negative 3257) POCT U COLOR (test code = light yellow 3266) POCT U APPEAR (test code = clear 3267) [facility] URINALYSIS W SPECIFIC [id number] 15:25:00 Test Item Value Reference Range Interpretation Comments POCT U SP GRAV (test code = 1.005 mg/dl 1.005-1.025 3255) POCT PH U (test code = 3254) 6 mg/dl 5-8 POCT U LEUK EST (test code = + Negative - Negative 3263) POCT U NIT (test code = negative Negative - Negative 3262) POCT U PROT (test code = negative Negative - Negative 3259) POCT U GLU (test code = normal Negative - Negative 3256) POCT U KETONE (test code = negative Negative - Negative 3258) POCT U UROBILI (test code = normal 0.2-1 3260) POCT U BILI (test code = negative Negative - Negative 3261) POCT U BLD (test code = negative Negative - Negative 3257) POCT U COLOR (test code = light yellow 3266) POCT U APPEAR (test code = clear 3267) [facility] RUN DATE: 12/10/18 [facility] - LAB *LIVE* PAGE 1 RUN TIME: 1614 Specimen Inquiry RUN USER: INTERFACE PATIENT: JO-ANN NUR LOC: LuisDSU U #: [id number] AGE/SX: 53/F ROOM: RE12/06/18[facility] DR: Bandar Roldan MD : 67 BED: DIS: STATUS: DAVY GRAMAJO TLOC: SPEC #: [id number] RECD: 12/07/18 STATUS: CELY LEVINE #: [id number] ABELINO: 12/06/188[address] [facility] DR: Bandar Roldan MD ENTERED: 12/07/18 SP TYPE: SURG OTHR DR: Mirtha Puckett ORDERED: AB/PAS MELLO, SURG PATH LVL 4/5, PATH STAIN GROU COPIES TO: Mirtha Puckett [address] [phone] Bandar Roldan MD [address] [address] HISTOLOGY: TISSUEID BLK PCS BLANCHE LEV PROCEDURE DISPOSITION ____ ___ ___ ___ JEJUNUM, NOS A 1 2 DUODENUM, NOS B 1 2 STOMACH, NOS C 1 1 PATH STAIN GROU STOMACH, NOS C 1 2 AB/PAS MELLO COLON, NOS D 1 2 ILEUM, NOS E 1 2 PROCEDURES: ALBLUE (12/07/18) PAS (12/07/18)SURG PATH LVL 4 (12/07/18) PATH STAIN GROU (12/07/18821) TISSUES: A. JEJUNUM, NOS - JEJUNUM BX B. DUODENUM, NOS - DUODENUM BX C. STOMACH, NOS - STOMACH BX D. COLON, NOS - RANDOM COLON BX E. ILEUM, NOS - ILEUM BX CLINICAL HISTORY ACUTE GASTRITIS -K29.00; ANEMIA -D50.0; FATTY LIVER -K76.0 CONTINUED ON NEXT PAGE RUN DATE: 12/10/18 [facility] - LAB *LIVE* PAGE 2 RUN TIME: 1614 Specimen Inquiry RUN USER: INTERFACE SPEC #: [id number] PATIENT: JO-ANN NUR #[id number] (Continued)----- ------- CPT CODES CPT CODE(S): 77376S6 , 11355 , 55504 , , , , FINAL DIAGNOSIS A. Small bowel, jejunum, biopsy: UNREMARKABLE SMALL BOWEL MUCOSA B. Small bowel, duodenum, biopsy: UNREMARKABLE DUODENUM WITH UNREMARKABLE VILLI C. Stomach, biopsy: CHRONIC GASTRITIS WITH INTESTINAL METAPLASIA NEGATIVE FOR DYSPLASIA OR MALIGNANCY NEGATIVE FOR HELICOBACTER PYLORI ORGANISMS D. Colon, biopsy: FOCAL ACUTE COLITIS E. Small bowel,ileum, biopsy: UNREMARKABLE SMALL BOWEL MUCOSA GROSS DESCRIPTION [...] all as E. ba/nr Grossing performed at [facility], [address] [place] [address], [address], [place], [place] [address]. Endo Tech: Laci Ross M.D. CONTINUED ON NEXT PAGE RUN DATE: 12/10/18 [facility] - LAB *LIVE* PAGE 3 RUN TIME: 1614 Specimen Inquiry RUN USER: INTERFACE SPEC #: [id number] PATIENT: JO-ANN NUR #[id number] (Continued) MICROSCOPIC DESCRIPTION A.Jejunum biopsy. Sections demonstrate unremarkable small bowel with [...] correlation suggested. E. Ileum biopsy. Sections demonstrate ilealmucosa with no evidence of villous blunting. No increased inflammation is notified. No dysplasia or malignancy is seen. Signed SIGNATURE ON FILE IndugerardoEj M 12/10/18 1614 END OF REPORT GLUCOSE BEDSIDE [id number] 06:50:00 Test Item Value Reference Range Interpretation Comments GLUCOSE BEDSIDE TESTING (test code 167 mg/dL 70-110 H = GLUBED) UR HCG [id number] 16:27:00 Test Item Value Reference Range Interpretation Comments UR HCG QUAL (test code = HCGQLU) NEGATIVE NEGATIVE
--- NOTE | 2023-06-27 12:50 | EKG ---
Test Date: 2023-06-27 Test Time: 00:53:08 Grade Setter: SID MEASUREMENT RESULTS: Intervals: Rate: 60 [place]: 160 QRSD: 80 QT: 458 QTc: 458 [place]: P: 53 [place]: 160 QRS: 65 T: 39 INTERPRETIVE STATEMENTS: Normal sinus rhythm Normal ECG Compared to ECG 08/07/2019 22:52:42 No significant changes Electronically Signed On 06-27-23 12:48:20 CDT by Frankie Serrano
== END 2023-06-27 01:04 | disposition home or self-care (01) ==
LOC: ER 00:44
DX: T43.591A Poisoning by other antipsychotics and neuroleptics, accidental (unintentional), initial encounter (principal); F31.9 Bipolar disorder, unspecified; I10 Essential (primary) hypertension; Z88.0 Allergy status to penicillin
CPT/HCPCS: 93005; 99283

== ENCOUNTER 2023-08-02 17:15 | Inpatient (IN) | payer OTHER ==
[2023-08-02] MEDS ORDERED: HEPARIN 5000 UNIT/ML 1 ML VIAL ONE (17:44)
--- OUTSIDE RECORDS SUMMARY | 2023-08-02 17:50 | XMS REPORT | Continuity of Care Document ---
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 0-06 tablet by ity of tablet 00:00: mouth 3 (three) Medical times Branch daily as needed for Muscle Spasms (May make sleepy, do not use before driving). cyclobenzap 2022-09 Yes [id number] 10mg Take 1 [facility] rine 10 mg 0-06 tablet by ity of tablet 00:00: mouth 3 (three) Medical times Branch daily as needed for Muscle Spasms (May make sleepy, do not use before driving). NaCl 0.9% 2022-09 1000mL at 999 Uni vers (NS) bolus 0-03 10-03 mL/hr, ity of infusion 07:45: 08:43 1,000 mL, Price as 1,000 mL 00 :00 IV [facility] ON[facility], 1 dose, On Mon06/27/23 at 0245, STAT semaglutide 2022-09 Yes [id number] 1mg inject 1 [facility] (OZEMPIC) 1 0-03 mg under ity of mg/dose (4 00:00: the skin Price as mg/3 mL) [address] [facility] semaglutide 2022-09 Yes [id number] 1mg inject 1 [facility] (OZEMPIC) 1 0-03 mg under ity of mg/dose (4 00:00: the skin Price as mg/3 mL) [address] [facility] semaglutide 2022-09 Yes [id number] 1mg inject 1 [facility] (OZEMPIC) 1 0-03 mg under ity of mg/dose (4 00:00: the skin Price as mg/3 mL) [address] [facility] semaglutide 2022-09 Yes [id number] 1mg inject 1 [facility] (OZEMPIC) 1 0-03 mg under ity of mg/dose (4 00:00: the skin Price as mg/3 mL) [address] [facility] semaglutide 2022-09 Yes [id number] 1mg inject 1 [facility] (OZEMPIC) 1 0-03 mg under ity of mg/dose (4 00:00: the skin Price as mg/3 mL) [address] [facility] semaglutide 2022-09 Yes [id number] 1mg inject 1 [facility] (OZEMPIC) 1 0-03 mg under ity of mg/dose (4 00:00: the skin Price as mg/3 mL) [address] [facility] semaglutide 2022-09 Yes [id number] 1mg inject 1 [facility] (OZEMPIC) 1 0-03 mg under ity of mg/dose (4 00:00: the skin Price as mg/3 mL) [address] [facility] semaglutide 2022-09 Yes [id number] 1mg inject 1 [facility] (OZEMPIC) 1 0-03 mg under ity of mg/dose (4 00:00: the skin Price as mg/3 mL) [address] [facility] semaglutide 2022-09 Yes [id number] 1mg inject 1 [facility] (OZEMPIC) 1 0-03 mg under ity of mg/dose (4 00:00: the skin Price as mg/3 mL) [address] [facility] semaglutide 2022-09 Yes [id number] 1mg inject 1 [facility] (OZEMPIC) 1 0-03 mg under ity of mg/dose (4 00:00: the skin Price as mg/3 mL) [address] [facility] semaglutide 2022-09 Yes [id number] 1mg inject 1 [facility] (OZEMPIC) 1 0-03 mg under ity of mg/dose (4 00:00: the skin Price as mg/3 mL) [address] [facility] semaglutide 2022-09 Yes [id number] 1mg inject 1 [facility] (OZEMPIC) 1 0-03 mg under ity of mg/dose (4 00:00: the skin Price as mg/3 mL) [address] [facility] semaglutide 2022-09 Yes [id number] 1mg inject 1 [facility] (OZEMPIC) 1 0-03 mg under ity of mg/dose (4 00:00: the skin Price as mg/3 mL) [address] [facility] semaglutide 2022-09 Yes [id number] 1mg inject 1 [facility] (OZEMPIC) 1 0-03 mg under ity of mg/dose (4 00:00: the skin Price as mg/3 mL) [address] [facility] fluticasone Yes [id number] SHAKE U nivers propionate 9-16 LIQUID AND ity of 50 00:00: USE 1 TO 2 [place] mcg/actuati 00 SPRAYS IN Med ical on nasal EACH Branch spray NOSTRIL IN THE MORNING fluticasone Yes [id number] SHAKE U nivers propionate 9-16 LIQUID AND ity of 50 00:00: USE 1 TO 2 [place] mcg/actuati 00 SPRAYS IN Med ical on nasal EACH Branch spray NOSTRIL IN THE MORNING fluticasone Yes [id number] SHAKE U nivers propionate 9-16 LIQUID AND ity of 50 00:00: USE 1 TO 2 [place] mcg/actuati 00 SPRAYS IN Med ical on nasal EACH Branch spray NOSTRIL IN THE MORNING fluticasone Yes [id number] SHAKE U nivers propionate 9-16 LIQUID AND ity of 50 00:00: USE 1 TO 2 [place] mcg/actuati 00 SPRAYS IN Med ical on nasal EACH Branch spray NOSTRIL IN THE MORNING fluticasone Yes [id number] SHAKE U nivers propionate 9-16 LIQUID AND ity of 50 00:00: USE 1 TO 2 [place] mcg/actuati 00 SPRAYS IN Med ical on nasal EACH Branch spray NOSTRIL IN THE MORNING fluticasone Yes [id number] SHAKE U nivers propionate 9-16 LIQUID AND ity of 50 00:00: USE 1 TO 2 [place] mcg/actuati 00 SPRAYS IN Med ical on nasal EACH Branch spray NOSTRIL IN THE MORNING fluticasone Yes [id number] SHAKE U nivers propionate 9-16 LIQUID AND ity of 50 00:00: USE 1 TO 2 [place] mcg/actuati 00 SPRAYS IN Med ical on nasal EACH Branch spray NOSTRIL IN THE MORNING fluticasone Yes [id number] SHAKE U nivers propionate 9-16 LIQUID AND ity of 50 00:00: USE 1 TO 2 [place] mcg/actuati 00 SPRAYS IN Med ical on nasal EACH Branch spray NOSTRIL IN THE MORNING fluticasone Yes [id number] SHAKE U nivers propionate 9-16 LIQUID AND ity of 50 00:00: USE 1 TO 2 [place] mcg/actuati 00 SPRAYS IN Med ical on nasal EACH Branch spray NOSTRIL IN THE MORNING fluticasone Yes [id number] SHAKE U nivers propionate 9-16 LIQUID AND ity of 50 00:00: USE 1 TO 2 [place] mcg/actuati 00 SPRAYS IN Med ical on nasal EACH Branch spray NOSTRIL IN THE MORNING fluticasone Yes [id number] SHAKE U nivers propionate 9-16 LIQUID AND ity of 50 00:00: USE 1 TO 2 [place] mcg/actuati 00 SPRAYS IN Med ical on nasal EACH Branch spray NOSTRIL IN THE MORNING fluticasone Yes [id number] SHAKE U nivers propionate 9-16 LIQUID AND ity of 50 00:00: USE 1 TO 2 [place] mcg/actuati 00 SPRAYS IN Med ical on nasal EACH Branch spray NOSTRIL IN THE MORNING fluticasone Yes [id number] SHAKE U nivers propionate 9-16 LIQUID AND ity of 50 00:00: USE 1 TO 2 [place] mcg/actuati 00 SPRAYS IN Med ical on nasal EACH Branch spray NOSTRIL IN THE MORNING fluticasone Yes [id number] SHAKE U nivers propionate 9-16 LIQUID AND ity of 50 00:00: USE 1 TO 2 [place] mcg/actuati 00 SPRAYS IN Med ical on nasal EACH Branch spray NOSTRIL IN THE MORNING fluticasone Yes [id number] SHAKE U nivers propionate 9-16 LIQUID AND ity of 50 00:00: USE 1 TO 2 [place] mcg/actuati 00 SPRAYS IN Med ical on nasal EACH Branch spray NOSTRIL IN THE MORNING fluticasone Yes [id number] SHAKE U nivers propionate 9-16 LIQUID AND ity of 50 00:00: USE 1 TO 2 [place] mcg/actuati 00 SPRAYS IN Med ical on nasal EACH Branch spray NOSTRIL IN THE MORNING fluticasone Yes [id number] SHAKE U nivers propionate 9-16 LIQUID AND ity of 50 00:00: USE 1 TO 2 [place] mcg/actuati 00 SPRAYS IN Med ical on nasal EACH Branch spray NOSTRIL IN THE MORNING fluticasone Yes [id number] SHAKE U nivers propionate 9-16 LIQUID AND ity of 50 00:00: USE 1 TO 2 [place] mcg/actuati 00 SPRAYS IN Med ical on nasal EACH Branch spray NOSTRIL IN THE MORNING OXcarbazepi 2022- No Take by Samir das ne 150 mg 06-06 mouth once ity of tablet 15:43: 00:00 now. [place] 01 :00 Medical Branch OXcarbazepi 2022- No Take by Un pippa ne 150 mg 06-06 mouth once ity of tablet 15:43: 00:00 now. [place] 01 :00 Medical Branch lurasidone 2022- No 1{tbl} Take 1 Un pippa 120 mg Tab 06-06 tablet by ity of 15:38: 00:00 mouth at [place] 34 :00 bedtime. Medical Branch lurasidone 2022- No 1{tbl} Take 1 Un pippa 120 mg Tab 06-06 tablet by ity of 15:38: 00:00 mouth at [place] 34 :00 bedtime. Medical Branch Insulin Yes [id number] ADMINISTER [facility] Glargine 9-12 30 UNITS ity of (LANTUS 00:00: UNDER THE [place] [address] SKIN TWICE Medic al U-100 DAILY Branch INSULIN) 100 unit/mL (3 mL) injection cyclobenzap Yes [id number] 10mg Take 1 [facility] rine 10 mg 9-12 tablet by ity of tablet 00:00: mouth 3 [place] [address] (three) Medical times Branch daily as needed for Muscle Spasms (May make sleepy, do not use before driving). Insulin Yes [id number] ADMINISTER [facility] Glargine 9-12 30 UNITS ity of ([place]US 00:00: UNDER THE [place] [address] SKIN TWICE Medic al U-100 DAILY Branch INSULIN) 100 unit/mL (3 mL) injection cyclobenzap 0 Yes [id number] 10mg Take 1 [facility] rine 10 mg 9-12 tablet by ity of tablet 00:00: mouth 3 [place] [address] (three) Medical times Branch daily as needed for Muscle Spasms (May make sleepy, do not use before driving). Insulin Yes [id number] ADMINISTER [facility] Glargine 9-12 30 UNITS ity of (LANT[place] 00:00: [facility] U-100 DAILY Branch INSULIN) 100 unit/mL (3 mL) injection cyclobenzap 0 Yes [id number] 10mg Take 1 [facility] rine 10 mg 9-12 tablet by ity of tablet 00:00: mouth 3 [place] [address] (three) Medical times Branch daily as needed for Muscle Spasms (May make sleepy, do not use before driving). Insulin Yes [id number] ADMINISTER [facility] Glargine 9-12 30 UNITS ity of (LANTUS 00:00: UNDER THE [place] SOLOSTAR 00 SKIN TWICE Medic al U-100 DAILY Branch INSULIN) 100 unit/mL (3 mL) injection cyclobenzap Yes [id number] 10mg Take 1 [facility] rine 10 mg 9-12 tablet by ity of tablet 00:00: mouth 3 (three) Medical times Branch daily as needed for Muscle Spasms (May make sleepy, do not use before driving). Insulin Yes [id number] ADMINISTER [facility] Glargine 9-12 30 UNITS ity of (LANTUS 00:00: UNDER THE [place] SOLOSTAR 00 SKIN TWICE Medic al U-100 DAILY Branch INSULIN) 100 unit/mL (3 mL) injection cyclobenzap Yes [id number] 10mg Take 1 [facility] rine 10 mg 9-12 tablet by ity of tablet 00:00: mouth 3 (three) Medical times Branch daily as needed for Muscle Spasms (May make sleepy, do not use before driving). Insulin Yes [id number] ADMINISTER [facility] Glargine 9-12 30 UNITS ity of (LANTUS 00:00: UNDER THE [place] SOLOSTAR 00 SKIN TWICE Medic al U-100 DAILY Branch INSULIN) 100 unit/mL (3 mL) injection cyclobenzap Yes [id number] 10mg Take 1 [facility] rine 10 mg 9-12 tablet by ity of tablet 00:00: mouth 3 (three) Medical times Branch daily as needed for Muscle Spasms (May make sleepy, do not use before driving). Insulin Yes [id number] ADMINISTER [facility] Glargine 9-12 30 UNITS ity of (LANTUS 00:00: UNDER THE [place] SOLOSTAR 00 SKIN TWICE Medic al U-100 DAILY Branch INSULIN) 100 unit/mL (3 mL) injection cyclobenzap 0 Yes [id number] 10mg Take 1 [facility] rine 10 mg 9-12 tablet by ity of tablet 00:00: mouth 3 00 (three) Medical times Branch daily as needed for Muscle Spasms (May make sleepy, do not use before driving). Insulin Yes [id number] ADMINISTER [facility] Glargine 9-12 30 UNITS ity of (LANTUS 00:00: UNDER THE [place] SOLOSTAR 00 SKIN TWICE Medic al U-100 DAILY Branch INSULIN) 100 unit/mL (3 mL) injection Insulin Yes [id number] ADMINISTER [facility] Glargine 9-12 30 UNITS ity of ([place]ANTUS 00:00: UNDER THE [place] SOLOSTAR 00 SKIN TWICE Medic al U-100 DAILY Branch INSULIN) 100 unit/mL (3 mL) injection Insulin Yes [id number] ADMINISTER [facility] Glargine 9-12 30 UNITS ity of (LANTUS 00:00: UNDER THE [place] SOLOSTAR 00 SKIN TWICE Medic al U-100 DAILY Branch INSULIN) 100 unit/mL (3 mL) injection Insulin Yes [id number] ADMINISTER [facility] Glargine 9-12 30 UNITS ity of (LANTUS 00:00: UNDER THE [place] SOLOSTAR 00 SKIN TWICE Medic al U-100 DAILY Branch INSULIN) 100 unit/mL (3 mL) injection Insulin Yes [id number] ADMINISTER [facility] Glargine 9-12 30 UNITS ity of (LANTUS 00:00: UNDER THE [place] SOLOSTAR 00 SKIN TWICE Medic al U-100 DAILY Branch INSULIN) 100 unit/mL (3 mL) injection Insulin Yes [id number] ADMINISTER [facility] Glargine 9-12 30 UNITS ity of (LANTUS 00:00: UNDER THE [place] SOLOSTAR 00 SKIN TWICE Medic al U-100 DAILY Branch INSULIN) 100 unit/mL (3 mL) injection Insulin Yes [id number] ADMINISTER [facility] Glargine 9-12 30 UNITS ity of (LANTUS 00:00: UNDER THE [place] SOLOSTAR 00 SKIN TWICE Medic al U-100 DAILY Branch INSULIN) 100 unit/mL (3 mL) injection Insulin Yes [id number] ADMINISTER [facility] Glargine 9-12 30 UNITS ity of (LANTUS 00:00: UNDER THE [place] SOLOSTAR 00 SKIN TWICE Medic al U-100 DAILY Branch INSULIN) 100 unit/mL (3 mL) injection Insulin Yes [id number] ADMINISTER [facility] Glargine 9-12 30 UNITS ity of (LANTUS 00:00: UNDER THE [place] SOLOSTAR 00 SKIN TWICE Medic al U-100 DAILY Branch INSULIN) 100 unit/mL (3 mL) injection Insulin 0 Yes [id number] ADMINISTER [facility] Glargine 9-12 30 UNITS ity of (LANTUS 00:00: UNDER THE [place] SOLOSTAR 00 SKIN TWICE Medic al U-100 DAILY Branch INSULIN) 100 unit/mL (3 mL) injection Insulin 0 Yes [id number] ADMINISTER [facility] Glargine 9-12 30 UNITS ity of (LANTUS 00:00: UNDER THE [place] SOLOSTAR 00 SKIN TWICE Medic al U-100 DAILY Branch INSULIN) 100 unit/mL (3 mL) injection Insulin Yes [id number] ADMINISTER [facility] Glargine 9-12 30 UNITS ity of (LANTUS 00:00: UNDER THE [place] SOLOSTAR 00 SKIN TWICE Medic al U-100 DAILY Branch INSULIN) 100 unit/mL (3 mL) injection Insulin Yes [id number] ADMINISTER [facility] Glargine 9-12 30 UNITS ity of (LANTUS 00:00: UNDER THE [place] SOLOSTAR 00 SKIN TWICE Medic al U-100 DAILY Branch INSULIN) 100 unit/mL (3 mL) injection Insulin Yes [id number] ADMINISTER [facility] Glargine 9-12 30 UNITS ity of (LANTUS 00:00: UNDER THE [place] SOLOSTAR 00 SKIN TWICE Medic al U-100 DAILY Branch INSULIN) 100 unit/mL (3 mL) injection cyclobenzap 2022- No [id number] 10mg Take 1 [facility] rine 10 mg 9-12 10-06 tablet by ity of tablet 00:00: 00:00 mouth 3 [place] 00 :00 (three) Medical times Branch daily as needed for Muscle Spasms (May make sleepy, do not use before driving). DULoxetine 2022-0 Yes 60mg Take 1 Unive rs 60 mg 8-29 capsule by ity of capsule 11:45: mouth in [place] [address] the Medical morning. Branch OLANZapine 2022-0 Yes 10mg Take 1 Unive rs 10 mg 8-29 tablet by ity of tablet 11:45: mouth in [place] [address] the Medical morning. Branch OXcarbazepi 0 Yes 600mg Take 1 Uni vers ne 600 mg 8-29 tablet by ity o f tablet 11:45: mouth in [place] [address] the Medical morning Branch and 1 tablet in the evening. DULoxetine 2023-0 Yes 60mg Take 1 Unive rs 60 mg 8-29 capsule by ity of capsule 11:45: mouth in [place] [address] the Medical morning. Branch OLANZapine 2023-0 Yes 10mg Take 1 Unive rs 10 mg 8-29 tablet by ity of tablet 11:45: mouth in [place] [address] the Medical morning. Branch OXcarbazepi 2023-0 Yes 600mg Take 1 Uni vers ne 600 mg 8-29 tablet by ity o f tablet 11:45: mouth in [place] [address] the Medical morning Branch and 1 tablet in the evening. DULoxetine 2023-0 Yes 60mg Take 1 Unive rs 60 mg 8-29 capsule by ity of capsule 11:45: mouth in [place] [address] the Medical morning. Branch DULoxetine 2023-0 Yes 60mg Take 1 Unive rs 60 mg 8-29 capsule by ity of capsule 11:45: mouth in [place] [address] the Medical morning. Branch DULoxetine 2023-0 Yes 60mg Take 1 Unive rs 60 mg 8-29 capsule by ity of capsule 11:45: mouth in [place] [address] the Medical morning. Branch OLANZapine 2023-0 Yes 10mg Take 1 Unive rs 10 mg 8-29 tablet by ity of tablet 11:45: mouth in [place] [address] the Medical morning. Branch OXcarbazepi 2023-0 Yes 600mg Take 1 Uni vers ne 600 mg 8-29 tablet by ity o f tablet 11:45: mouth in [place] [address] the Medical morning Branch and 1 tablet in the evening. DULoxetine 2023-0 Yes 60mg Take 1 Unive rs 60 mg 8-29 capsule by ity of capsule 11:45: mouth in [place] [address] the Medical morning. Branch DULoxetine 2023-0 Yes 60mg Take 1 Unive rs 60 mg 8-29 capsule by ity of capsule 11:45: mouth in [place] [address] the Medical morning. Branch OLANZapine 2023-0 Yes 10mg Take 1 Unive rs 10 mg 8-29 tablet by ity of tablet 11:45: mouth in [place] [address] the Medical morning. Branch OXcarbazepi 2023-0 Yes 600mg Take 1 Uni vers ne 600 mg 8-29 tablet by ity o f tablet 11:45: mouth in [place] [address] the Medical morning Branch and 1 tablet in the evening. DULoxetine 2023-0 Yes 60mg Take 1 Unive rs 60 mg 8-29 capsule by ity of capsule 11:45: mouth in [place] [address] the Medical morning. Branch OLANZapine 2023-0 Yes 10mg Take 1 Unive rs 10 mg 8-29 tablet by ity of tablet 11:45: mouth in [place] [address] the Medical morning. Branch OXcarbazepi 2023-0 Yes 600mg Take 1 Uni vers ne 600 mg 8-29 tablet by ity o f tablet 11:45: mouth in [place] [address] the Medical morning Branch and 1 tablet in the evening. DULoxetine 2023-0 Yes 60mg Take 1 Unive rs 60 mg 8-29 capsule by ity of capsule 11:45: mouth in [place] [address] the Medical morning. Branch OLANZapine 2023-0 Yes 10mg Take 1 Unive rs 10 mg 8-29 tablet by ity of tablet 11:45: mouth in [place] [address] the Medical morning. Branch OXcarbazepi 2023-0 Yes 600mg Take 1 Uni vers ne 600 mg 8-29 tablet by ity o f tablet 11:45: mouth in [place] [address] the Medical morning Branch and 1 tablet in the evening. DULoxetine 2023-0 Yes 60mg Take 1 Unive rs 60 mg 8-29 capsule by ity of capsule 11:45: mouth in [place] [address] the Medical morning. Branch OLANZapine 2023-0 Yes 10mg Take 1 Unive rs 10 mg 8-29 tablet by ity of tablet 11:45: mouth in [place] [address] the Medical morning. Branch OXcarbazepi 2023-0 Yes 600mg Take 1 Uni vers ne 600 mg 8-29 tablet by ity o f tablet 11:45: mouth in [place] [address] the Medical morning Branch and 1 tablet in the evening. DULoxetine 2023-0 Yes 60mg Take 1 Unive rs 60 mg 8-29 capsule by ity of capsule 11:45: mouth in [place] [address] the Medical morning. Branch OLANZapine 2023-0 Yes 10mg Take 1 Unive rs 10 mg 8-29 tablet by ity of tablet 11:45: mouth in [place] [address] the Medical morning. Branch OXcarbazepi 2023-0 Yes 600mg Take 1 Uni vers ne 600 mg 8-29 tablet by ity o f tablet 11:45: mouth in [place] [address] the Medical morning Branch and 1 tablet in the evening. DULoxetine 2023-0 Yes 60mg Take 1 Unive rs 60 mg 8-29 capsule by ity of capsule 11:45: mouth in [place] [address] the Medical morning. Branch OLANZapine 2023-0 Yes 10mg Take 1 Unive rs 10 mg 8-29 tablet by ity of tablet 11:45: mouth in [place] [address] the Medical morning. Branch OXcarbazepi 2023-0 Yes 600mg Take 1 Uni vers ne 600 mg 8-29 tablet by ity o f tablet 11:45: mouth in [place] [address] the Medical morning Branch and 1 tablet in the evening. DULoxetine 2023-0 Yes 60mg Take 1 Unive rs 60 mg 8-29 capsule by ity of capsule 11:45: mouth in [place] [address] the Medical morning. Branch OLANZapine 2023-0 Yes 10mg Take 1 Unive rs 10 mg 8-29 tablet by ity of tablet 11:45: mouth in [place] [address] the Medical morning. Branch OXcarbazepi 2023-0 Yes 600mg Take 1 Uni vers ne 600 mg 8-29 tablet by ity o f tablet 11:45: mouth in [place] [address] the Medical morning Branch and 1 tablet in the evening. DULoxetine 2023-0 Yes 60mg Take 1 Unive rs 60 mg 8-29 capsule by ity of capsule 11:45: mouth in [place] [address] the Medical morning. Branch OLANZapine 2023-0 Yes 10mg Take 1 Unive rs 10 mg 8-29 tablet by ity of tablet 11:45: mouth in [place] [address] the Medical morning. Branch OXcarbazepi 2023-0 Yes 600mg Take 1 Uni vers ne 600 mg 8-29 tablet by ity o f tablet 11:45: mouth in [place] [address] the Medical morning Branch and 1 tablet in the evening. DULoxetine 2023-0 Yes 60mg Take 1 Unive rs 60 mg 8-29 capsule by ity of capsule 11:45: mouth in [place] [address] the Medical morning. Branch OLANZapine 2023-0 Yes 10mg Take 1 Unive rs 10 mg 8-29 tablet by ity of tablet 11:45: mouth in [place] [address] the Medical morning. Branch OXcarbazepi 2023-0 Yes 600mg Take 1 Uni vers ne 600 mg 8-29 tablet by ity o f tablet 11:45: mouth in [place] [address] the Medical morning Branch and 1 tablet in the evening. DULoxetine 2023-0 Yes 60mg Take 1 Unive rs 60 mg 8-29 capsule by ity of capsule 11:45: mouth in [place] [address] the Medical morning. Branch OLANZapine 2023-0 Yes 10mg Take 1 Unive rs 10 mg 8-29 tablet by ity of tablet 11:45: mouth in [place] [address] the Medical morning. Branch OXcarbazepi 2023-0 Yes 600mg Take 1 Uni vers ne 600 mg 8-29 tablet by ity o f tablet 11:45: mouth in [place] [address] the Medical morning Branch and 1 tablet in the evening. DULoxetine 2023-0 Yes 60mg Take 1 Unive rs 60 mg 8-29 capsule by ity of capsule 11:45: mouth in [place] [address] the Medical morning. Branch OLANZapine 2023-0 Yes 10mg Take 1 Unive rs 10 mg 8-29 tablet by ity of tablet 11:45: mouth in [place] [address] the Medical morning. Branch OXcarbazepi 2023-0 Yes 600mg Take 1 Uni vers ne 600 mg 8-29 tablet by ity o f tablet 11:45: mouth in [place] [address] the Medical morning Branch and 1 tablet in the evening. DULoxetine 2023-0 Yes 60mg Take 1 Unive rs 60 mg 8-29 capsule by ity of capsule 11:45: mouth in [place] [address] the Medical morning. Branch OLANZapine 2023-0 Yes 10mg Take 1 Unive rs 10 mg 8-29 tablet by ity of tablet 11:45: mouth in [place] [address] the Medical morning. Branch OXcarbazepi 2023-0 Yes 600mg Take 1 Uni vers ne 600 mg 8-29 tablet by ity o f tablet 11:45: mouth in [place] [address] the Medical morning Branch and 1 tablet in the evening. DULoxetine 2023-0 Yes 60mg Take 1 Unive rs 60 mg 8-29 capsule by ity of capsule 11:45: mouth in [place] [address] the Medical morning. Branch OLANZapine 2023-0 Yes 10mg Take 1 Unive rs 10 mg 8-29 tablet by ity of tablet 11:45: mouth in [place] [address] the Medical morning. Branch OXcarbazepi 2023-0 Yes 600mg Take 1 Uni vers ne 600 mg 8-29 tablet by ity o f tablet 11:45: mouth in [place] [address] the Medical morning Branch and 1 tablet in the evening. DULoxetine 2023-0 Yes 60mg Take 1 Unive rs 60 mg 8-29 capsule by ity of capsule 11:45: mouth in [place] 23 the Medical morning. Branch OLANZapine 2023-0 Yes 10mg Take 1 Unive rs 10 mg 8-29 tablet by ity of tablet 11:45: mouth in [place] [address] the Medical morning. Branch OXcarbazepi 2023-0 Yes 600mg Take 1 Uni vers ne 600 mg 8-29 tablet by ity o f tablet 11:45: mouth in [place] [address] the Medical morning Branch and 1 tablet in the evening. DULoxetine 2023-0 Yes 60mg Take 1 Unive rs 60 mg 8-29 capsule by ity of capsule 11:45: mouth in [place] [address] the Medical morning. Branch OLANZapine 2023-0 Yes 10mg Take 1 Unive rs 10 mg 8-29 tablet by ity of tablet 11:45: mouth in [place] [address] the Medical morning. Branch OXcarbazepi 2023-0 Yes 600mg Take 1 Uni vers ne 600 mg 8-29 tablet by ity o f tablet 11:45: mouth in [place] [address] the Medical morning Branch and 1 tablet in the evening. DULoxetine 2023-0 Yes 60mg Take 1 Unive rs 60 mg 8-29 capsule by ity of capsule 11:45: mouth in [place] [address] the Medical morning. Branch OLANZapine 2023-0 Yes 10mg Take 1 Unive rs 10 mg 8-29 tablet by ity of tablet 11:45: mouth in [place] [address] the Medical morning. Branch OXcarbazepi 2023-0 Yes 600mg Take 1 Uni vers ne 600 mg 8-29 tablet by ity o f tablet 11:45: mouth in [place] [address] the Medical morning Branch and 1 tablet in the evening. DULoxetine 2023-0 Yes 60mg Take 1 Unive rs 60 mg 8-29 capsule by ity of capsule 11:45: mouth in [place] [address] the Medical morning. Branch OLANZapine 2023-0 Yes 10mg Take 1 Unive rs 10 mg 8-29 tablet by ity of tablet 11:45: mouth in [place] [address] the Medical morning. Branch OXcarbazepi 2023-0 Yes 600mg Take 1 Uni vers ne 600 mg 8-29 tablet by ity o f tablet 11:45: mouth in [place] [address] the Medical morning Branch and 1 tablet in the evening. OLANZapine 2023-0 Yes 10mg Take 1 Unive rs 10 mg 8-29 tablet by ity of tablet 11:45: mouth in [place] [address] the Medical morning. Branch OXcarbazepi 2023-0 Yes 600mg Take 1 Uni vers ne 600 mg 8-29 tablet by ity o f tablet 11:45: mouth in [place] [address] the Medical morning Branch and 1 tablet in the evening. OLANZapine 2023-0 Yes 10mg Take 1 Unive rs 10 mg 8-29 tablet by ity of tablet 11:45: mouth in [place] [address] the Medical morning. Branch OXcarbazepi 2023-0 Yes 600mg Take 1 Uni vers ne 600 mg 8-29 tablet by ity o f tablet 11:45: mouth in [place] [address] the Medical morning Branch and 1 tablet in the evening. OLANZapine 2023-0 Yes 10mg Take 1 Unive rs 10 mg 8-29 tablet by ity of tablet 11:45: mouth in [place] [address] the Medical morning. Branch OXcarbazepi 2023-0 Yes 600mg Take 1 Uni vers ne 600 mg 8-29 tablet by ity o f tablet 11:45: mouth in [place] [address] the [facility] morning Branch and 1 tablet in the evening. OLANZapine 2023-0 Yes 10mg Take 1 Unive rs 10 mg 8-29 tablet by ity of tablet 11:45: mouth in [place] [address] the Medical morning. Branch OXcarbazepi 2023-0 Yes 600mg Take 1 Uni vers ne 600 mg 8-29 tablet by ity o f tablet 11:45: mouth in [place] [address] the [facility] morning Branch and 1 tablet in the evening. OLANZapine 2023-0 Yes 10mg Take 1 Unive rs 10 mg 8-29 tablet by ity of tablet 11:45: mouth in [place] [address] the Medical morning. Branch OXcarbazepi 2023-0 Yes 600mg Take 1 Uni vers ne 600 mg 8-29 tablet by ity o f tablet 11:45: mouth in [place] [address] the [facility] morning Branch and 1 tablet in the evening. DULoxetine 2023-0 Yes 60mg Take 1 Unive rs 60 mg 8-22 capsule by ity of capsule 09:36: mouth in [place] [address] the Medical morning. Branch DULoxetine 2023-0 Yes 60mg Take 1 Unive rs 60 mg 8-22 capsule by ity of capsule 09:36: mouth in [place] [address] the Medical morning. Branch DULoxetine 2023-0 Yes 60mg Take 1 Unive rs 60 mg 8-22 capsule by ity of capsule 09:36: mouth in [place] [address] the Medical morning. Branch DULoxetine 2023-0 Yes 60mg Take 1 Unive rs 60 mg 8-22 capsule by ity of capsule 09:36: mouth in [place] [address] the Medical morning. Branch lurasidone 2022-0 Yes 1{tbl} Take 1 Uni vers 120 mg Tab 8-22 tablet by ity of 09:22: mouth at [place] [address] bedtime. Medical Branch OXcarbazepi 2022-0 Yes Take by Uni vers ne 150 mg 8-22 mouth once ity of tablet 09:22: now. [place] [address] Medical Branch lurasidone 2022-0 Yes 1{tbl} Take 1 Uni vers 120 mg Tab 8-22 tablet by ity of 09:22: mouth at [place] [address] bedtime. Medical Branch OXcarbazepi 2022-0 Yes Take by Uni vers ne 150 mg 8-22 mouth once ity of tablet 09:22: now. [place] [address] Medical Branch lurasidone 2022-0 Yes 1{tbl} Take 1 Uni vers 120 mg Tab 8-22 tablet by ity of 09:22: mouth at [address] Medical Branch OXcarbazepi 2022-0 Yes Take by Uni vers ne 150 mg 8-22 mouth once ity of tablet 09:22: now. [place] [address] Medical Branch lurasidone 2022-0 Yes 1{tbl} Take 1 Uni vers 120 mg Tab 8-22 tablet by ity of 09:22: [facility] [place] [address] [facility] Branch OXcarbazepi 2022-0 Yes Take by Uni vers ne 150 mg 8-22 mouth once ity of tablet 09:22: now. [place] [address] Medical Branch lurasidone 2022-0 Yes 1{tbl} Take 1 Uni vers 120 mg Tab 8-22 tablet by ity of 09:22: mouth at [place] [address] bedtime. Medical Branch OXcarbazepi 2022-0 Yes Take by Uni vers ne 150 mg 8-22 mouth once ity of tablet 09:22: now. [place] [address] Medical Branch lurasidone 2022-0 Yes 1{tbl} Take 1 Uni vers 120 mg Tab 8-22 tablet by ity of 09:22: mouth at [place] [address] bedtime. Medical Branch OXcarbazepi 2022-0 Yes Take by Uni vers ne 150 mg 8-22 mouth once ity of tablet 09:22: now. [place] [address] Medical Branch lurasidone 2023-0 Yes 1{tbl} Take 1 Uni vers 120 mg Tab 8-22 tablet by ity of 09:22: mouth at [place] [address] bedtime. Medical Branch OXcarbazepi 0 Yes Take by Uni vers ne 150 mg 8-22 mouth once ity of tablet 09:22: now. [place] [address] Medical Branch lurasidone 0 Yes 1{tbl} Take 1 Uni vers 120 mg Tab 8-22 tablet by ity of 09:22: mouth at [place] [address] bedtime. Medical Branch OXcarbazepi Yes Take by Uni vers ne 150 mg 8-22 mouth once ity of tablet 09:22: now. [place] [address] Medical Branch lurasidone Yes 1{tbl} Take 1 Uni vers 120 mg Tab 8-22 tablet by ity of 09:22: mouth [address] Medical Branch OXcarbazepi Yes Take by Uni vers ne 150 mg 8-22 mouth once ity of tablet 09:22: now. [place] [address] Medical Branch lurasidone Yes 1{tbl} Take 1 Uni vers 120 mg Tab 8-22 tablet by ity of 09:22: mouth at [place] [address] bedtime. Medical Branch OXcarbazepi Yes Take by Uni vers ne 150 mg 8-22 mouth once ity of tablet 09:22: now. [place] [address] Medical Branch lurasidone Yes 1{tbl} Take 1 Uni vers 120 mg Tab 8-22 tablet by ity of 09:22: mouth at [place] [address] [facility] Medical Branch OXcarbazepi Yes Take by Un pippa ne 150 mg 8-22 mouth once ity of tablet 09:22: now. [place] [address] Medical Branch busPIRone 0 Yes [id number] TAKE 1/2 [facility] 15 mg 8-22 TO 1 ity of tablet 00:00: TABLET BY [place] [address] MOUTH Medical TWICE Branch DAILY NEEDED FOR ANXIETY levothyroxi Yes [id number] 175ug Take 1 Univers ne 175 mcg 8-22 tablet by ity of tablet 00:00: mouth [place] [address] every Medical morning. Branch rosuvastati 0 Yes [id number] 20mg Take 1 [facility] n 20 mg 8-22 tablet by ity of tablet 00:00: mouth at [place] [address] bedtime. Medical Branch loratadine Yes [id number] 10mg Take 1 U nivers 10 mg 8-22 tablet by ity of tablet 00:00: mouth at [place] 00 bedtime. Medical Branch prasugreL Yes [id number] 10mg Take 1 Un pippa 10 mg 8-22 tablet by ity of tablet 00:00: mouth in [place] 00 the Medical morning. Branch Appointmen t needed. Please contact office. busPIRone Yes [id number] TAKE 1/2 [facility] 15 mg 8-22 TO 1 ity of tablet 00:00: TABLET BY [place] 00 MOUTH Medical TWICE Branch DAILY NEEDED FOR ANXIETY levothyroxi Yes [id number] 175ug Take 1 Univers ne 175 mcg 8-22 tablet by ity of tablet 00:00: mouth [place] every Medical morning. Branch rosuvastati Yes [id number] 20mg Take 1 [facility] n 20 mg 8-22 tablet by ity of tablet 00:00: mouth at [place] [address] bedtime. Medical Branch loratadine Yes [id number] 10mg Take 1 U nivers 10 mg 8-22 tablet by ity of tablet 00:00: mouth at [place] 00 bedtime. Medical Branch prasugreL Yes [id number] 10mg Take 1 Un pippa 10 mg 8-22 tablet by ity of tablet 00:00: mouth in [place] the Medical morning. Branch Appointmen t needed. Please contact office. semaglutide Yes [id number] 2mg inject 2 Univers (OZEMPIC) 2 8-22 mg under ity of mg/dose (8 00:00: the skin Price as mg/3 mL) 00 weekly. Medical PnIj Branch busPIRone Yes [id number] TAKE 1/2 [facility] 15 mg 8-22 TO 1 ity of tablet 00:00: TABLET BY [place] 00 MOUTH Medical TWICE Branch DAILY NEEDED FOR ANXIETY levothyroxi Yes [id number] 175ug Take 1 Univers ne 175 mcg 8-22 tablet by ity of tablet 00:00: mouth [place] 00 every Medical morning. Branch rosuvastati Yes [id number] 20mg Take 1 [facility] n 20 mg 8-22 tablet by ity of tablet 00:00: mouth at [place] [address] bedtime. Medical Branch loratadine Yes [id number] 10mg Take 1 U nivers 10 mg 8-22 tablet by ity of tablet 00:00: mouth at [place] [address] bedtime. Medical Branch prasugreL 2022-0 Yes [id number] 10mg Take 1 Un pippa 10 mg 8-22 tablet by ity of tablet 00:00: mouth in [place] 00 the Medical morning. Branch Appointmen t needed. Please contact office. semaglutide Yes [id number] 2mg inject 2 Univers (OZEMPIC) 2 8-22 mg under ity of mg/dose (8 00:00: the skin Price as mg/3 mL) 00 weekly. Medical PnIj Branch busPIRone Yes [id number] TAKE 1/2 [facility] 15 mg 8-22 TO 1 ity of tablet 00:00: TABLET BY [place] 00 MOUTH Medical TWICE Branch DAILY NEEDED FOR ANXIETY levothyroxi Yes [id number] 175ug Take 1 Univers ne 175 mcg 8-22 tablet by ity of tablet 00:00: mouth [place] 00 every Medical morning. Branch rosuvastati Yes [id number] 20mg Take 1 [facility] n 20 mg 8-22 tablet by ity of tablet 00:00: mouth at [place] [address] bedtime. Medical Branch loratadine Yes [id number] 10mg Take 1 U nivers 10 mg 8-22 tablet by ity of tablet 00:00: mouth at [place] 00 bedtime. Medical Branch prasugreL 2022-0 Yes [id number] 10mg Take 1 Un pippa 10 mg 8-22 tablet by ity of tablet 00:00: mouth in [place] 00 the Medical morning. Branch Appointmen t needed. Please contact office. semaglutide Yes [id number] 2mg inject 2 Univers (OZEMPIC) 2 8-22 mg under ity of mg/dose (8 00:00: the skin Price as mg/3 mL) 00 weekly. Medical PnIj Branch busPIRone Yes [id number] TAKE 1/2 [facility] 15 mg 8-22 TO 1 ity of tablet 00:00: TABLET BY [place] 00 MOUTH Medical TWICE Branch DAILY NEEDED FOR ANXIETY levothyroxi 2022-0 Yes [id number] 175ug Take 1 Univers ne 175 mcg 8-22 tablet by ity of tablet 00:00: mouth [place] 00 every Medical morning. Branch rosuvastati Yes [id number] 20mg Take 1 Univers n 20 mg 8-22 tablet by ity of tablet 00:00: mouth at [place] [address] bedtime. Medical Branch loratadine Yes [id number] 10mg Take 1 U nivers 10 mg 8-22 tablet by ity of tablet 00:00: mouth at [place] 00 bedtime. Medical Branch prasugreL Yes [id number] 10mg Take 1 Un pippa 10 mg 8-22 tablet by ity of tablet 00:00: mouth in [place] the Medical morning. Branch Appointmen t needed. Please contact office. semaglutide Yes [id number] 2mg inject 2 Univers (OZEMPIC) 2 8-22 mg under ity of mg/dose (8 00:00: the skin Price as mg/3 mL) 00 weekly. Medical PnIj Branch busPIRone Yes [id number] TAKE 1/2 [facility] 15 mg 8-22 TO 1 ity of tablet 00:00: TABLET BY [place] 00 MOUTH Medical TWICE Branch DAILY NEEDED FOR ANXIETY levothyroxi Yes [id number] 175ug Take 1 Univers ne 175 mcg 8-22 tablet by ity of tablet 00:00: mouth [place] every Medical morning. Branch rosuvastati Yes [id number] 20mg Take 1 [facility] n 20 mg 8-22 tablet by ity of tablet 00:00: mouth at [place] [address] bedtime. Medical Branch loratadine Yes [id number] 10mg Take 1 U nivers 10 mg 8-22 tablet by ity of tablet 00:00: mouth at [place] [address] bedtime. Medical Branch prasugreL Yes [id number] 10mg Take 1 Un pippa 10 mg 8-22 tablet by ity of tablet 00:00: mouth in [place] the Medical morning. Branch Appointmen t needed. Please contact office. semaglutide Yes [id number] 2mg inject 2 [facility] (OZEMPIC) 2 8-22 mg under ity of mg/dose (8 00:00: the skin Price as mg/3 mL) 00 weekly. Medical PnIj Branch busPIRone Yes [id number] TAKE 1/2 [facility] 15 mg 8-22 TO 1 ity of tablet 00:00: TABLET BY [place] 00 MOUTH Medical TWICE Branch DAILY NEEDED FOR ANXIETY levothyroxi Yes [id number] 175ug Take 1 Univers ne 175 mcg 8-22 tablet by ity of tablet 00:00: mouth every Medical morning. Branch rosuvastati Yes [id number] 20mg Take 1 [facility] n 20 mg 8-22 tablet by ity of tablet 00:00: mouth at [place] 00 bedtime. Medical Branch loratadine Yes [id number] 10mg Take 1 U nivers 10 mg 8-22 tablet by ity of tablet 00:00: mouth at [place] bedtime. Medical Branch prasugreL Yes [id number] 10mg Take 1 Un pippa 10 mg 8-22 tablet by ity of tablet 00:00: mouth in [place] the Medical morning. Branch Appointmen t needed. Please contact office. semaglutide Yes [id number] 2mg inject 2 [facility] (OZEMPIC) 2 8-22 mg under ity of mg/dose (8 00:00: the skin Price as mg/3 mL) 00 weekly. Medical PnIj Branch busPIRone Yes [id number] TAKE 1/2 [facility] 15 mg 8-22 TO 1 ity of tablet 00:00: TABLET BY [place] 00 MOUTH Medical TWICE Branch DAILY NEEDED FOR ANXIETY levothyroxi Yes [id number] 175ug Take 1 Univers ne 175 mcg 8-22 tablet by ity of tablet 00:00: mouth [place] every Medical morning. Branch rosuvastati Yes [id number] 20mg Take 1 [facility] n 20 mg 8-22 tablet by ity of tablet 00:00: mouth at [place] [address] bedtime. Medical Branch loratadine Yes [id number] 10mg Take 1 U nivers 10 mg 8-22 tablet by ity of tablet 00:00: mouth at [place] [address] bedtime. Medical Branch prasugreL Yes [id number] 10mg Take 1 Un pippa 10 mg 8-22 tablet by ity of tablet 00:00: mouth in [place] the Medical morning. Branch Appointmen t needed. Please contact office. semaglutide Yes [id number] 2mg inject 2 Univers (OZEMPIC) 2 8-22 mg under ity of mg/dose (8 00:00: the skin Price as mg/3 mL) 00 weekly. Medical PnIj Branch busPIRone Yes [id number] TAKE 1/2 [facility] 15 mg 8-22 TO 1 ity of tablet 00:00: TABLET BY [place] MOUTH Medical TWICE Branch DAILY NEEDED FOR ANXIETY levothyroxi Yes [id number] 175ug Take 1 Univers ne 175 mcg 8-22 tablet by ity of tablet 00:00: mouth every Medical morning. Branch rosuvastati Yes [id number] 20mg Take 1 [facility] n 20 mg 8-22 tablet by ity of tablet 00:00: mouth at [place] [address] bedtime. Medical Branch loratadine Yes [id number] 10mg Take 1 U nivers 10 mg 8-22 tablet by ity of tablet 00:00: mouth at [place] [address] bedtime. Medical Branch prasugreL Yes [id number] 10mg Take 1 Un pippa 10 mg 8-22 tablet by ity of tablet 00:00: mouth in [place] the Medical morning. Branch Appointmen t needed. Please contact office. semaglutide Yes [id number] 2mg inject 2 Univers (OZEMPIC) 2 8-22 mg under ity of mg/dose (8 00:00: the skin Price as mg/3 mL) 00 weekly. Medical PnIj Branch busPIRone Yes [id number] TAKE 1/2 [facility] 15 mg 8-22 TO 1 ity of tablet 00:00: TABLET BY [place] 00 MOUTH Medical TWICE [place] DAILY NEEDED FOR ANXIETY levothyroxi Yes [id number] 175ug Take 1 Univers ne 175 mcg 8-22 tablet by ity of tablet 00:00: mouth [place] every Medical morning. Branch rosuvastati 0 Yes [id number] 20mg Take 1 [facility] n 20 mg 8-22 tablet by ity of tablet 00:00: mouth at [place] [address] bedtime. Medical Branch loratadine Yes [id number] 10mg Take 1 U nivers 10 mg 8-22 tablet by ity of tablet 00:00: mouth at [place] [address] bedtime. Medical Branch prasugreL Yes [id number] 10mg Take 1 Un pippa 10 mg 8-22 tablet by ity of tablet 00:00: mouth in [place] the Medical morning. Branch Appointmen t needed. Please contact office. semaglutide Yes [id number] 2mg inject 2 Univers (OZEMPIC) 2 8-22 mg under ity of mg/dose (8 00:00: the skin Price as mg/3 mL) 00 weekly. Medical PnIj Branch busPIRone Yes [id number] TAKE 1/2 [facility] 15 mg 8-22 TO 1 ity of tablet 00:00: TABLET BY [place] 00 MOUTH Medical TWICE Branch DAILY NEEDED FOR ANXIETY levothyroxi Yes [id number] 175ug Take 1 Univers ne 175 mcg 8-22 tablet by ity of tablet 00:00: mouth [place] every Medical morning. Branch rosuvastati Yes [id number] 20mg Take 1 [facility] n 20 mg 8-22 tablet by ity of tablet 00:00: mouth at [place] [address] bedtime. Medical Branch loratadine Yes [id number] 10mg Take 1 U nivers 10 mg 8-22 tablet by ity of tablet 00:00: mouth at [place] 00 bedtime. Medical Branch prasugreL Yes [id number] 10mg Take 1 Un pippa 10 mg 8-22 tablet by ity of tablet 00:00: mouth in [place] the Medical morning. Branch Appointmen t needed. Please contact office. semaglutide Yes [id number] 2mg inject 2 [facility] (OZEMPIC) 2 8-22 mg under ity of mg/dose (8 00:00: the skin Price as mg/3 mL) 00 weekly. Medical PnIj Branch busPIRone Yes [id number] TAKE 1/2 [facility] 15 mg 8-22 TO 1 ity of tablet 00:00: TABLET BY [place] [address] MOUTH Medical TWICE Branch DAILY NEEDED FOR ANXIETY levothyroxi 0 Yes [id number] 175ug Take 1 [facility] ne 175 mcg 8-22 tablet by ity of tablet 00:00: mouth [place] every Medical morning. Branch rosuvastati 2022-0 Yes [id number] 20mg Take 1 [facility] n 20 mg 8-22 tablet by ity of tablet 00:00: mouth at [place] 00 bedtime. Medical Branch loratadine Yes [id number] 10mg Take 1 U nivers 10 mg 8-22 tablet by ity of tablet 00:00: mouth at [place] 00 bedtime. Medical Branch prasugreL Yes [id number] 10mg Take 1 Un pippa 10 mg 8-22 tablet by ity of tablet 00:00: mouth in [place] the Medical morning. Branch Appointmen t needed. Please contact office. semaglutide Yes [id number] 2mg inject 2 [facility] (OZEMPIC) 2 8-22 mg under ity of mg/dose (8 00:00: the skin Price as mg/3 mL) 00 weekly. Medical PnIj Branch busPIRone Yes [id number] TAKE 1/2 [facility] 15 mg 8-22 TO 1 ity of tablet 00:00: TABLET BY [place] 00 MOUTH Medical TWICE Branch DAILY NEEDED FOR ANXIETY levothyroxi Yes [id number] 175ug Take 1 [facility] ne 175 mcg 8-22 tablet by ity of tablet 00:00: mouth [place] 00 every Medical morning. Branch rosuvastati Yes [id number] 20mg Take 1 [facility] n 20 mg 8-22 tablet by ity of tablet 00:00: mouth at [place] 00 bedtime. Medical Branch loratadine Yes [id number] 10mg Take 1 U nivers 10 mg 8-22 tablet by ity of tablet 00:00: mouth at [place] 00 bedtime. Medical Branch prasugreL Yes [id number] 10mg Take 1 Un pippa 10 mg 8-22 tablet by ity of tablet 00:00: mouth in [place] the Medical morning. Branch Appointmen t needed. Please contact office. semaglutide Yes [id number] 2mg inject 2 [facility] (OZEMPIC) 2 8-22 mg under ity of mg/dose (8 00:00: the skin Price as mg/3 mL) 00 weekly. Medical PnIj Branch busPIRone Yes [id number] TAKE 1/2 [facility] 15 mg 8-22 TO 1 ity of tablet 00:00: TABLET BY [place] 00 MOUTH Medical TWICE Branch DAILY NEEDED FOR ANXIETY levothyroxi Yes [id number] 175ug Take 1 [facility] ne 175 mcg 8-22 tablet by ity of tablet 00:00: mouth [place] 00 every Medical morning. Branch rosuvastati Yes [id number] 20mg Take 1 [facility] n 20 mg 8-22 tablet by ity of tablet 00:00: mouth at [place] 00 bedtime. Medical Branch loratadine Yes [id number] 10mg Take 1 U nivers 10 mg 8-22 tablet by ity of tablet 00:00: mouth at [place] 00 bedtime. Medical Branch prasugreL Yes [id number] 10mg Take 1 Un pippa 10 mg 8-22 tablet by ity of tablet 00:00: mouth in [place] 00 the Medical morning. Branch Appointmen t needed. Please contact office. semaglutide Yes [id number] 2mg inject 2 [facility] (OZEMPIC) 2 8-22 mg under ity of mg/dose (8 00:00: the skin Price as mg/3 mL) 00 weekly. Medical PnIj Branch busPIRone Yes [id number] TAKE 1/2 [facility] 15 mg 8-22 TO 1 ity of tablet 00:00: TABLET BY [place] 00 MOUTH Medical TWICE Branch DAILY NEEDED FOR ANXIETY levothyroxi Yes [id number] 175ug Take 1 [facility] ne 175 mcg 8-22 tablet by ity of tablet 00:00: mouth [place] every Medical morning. Branch rosuvastati Yes [id number] 20mg Take 1 [facility] n 20 mg 8-22 tablet by ity of tablet 00:00: mouth at [place] 00 bedtime. Medical Branch loratadine Yes [id number] 10mg Take 1 U nivers 10 mg 8-22 tablet by ity of tablet 00:00: mouth at [place] 00 bedtime. Medical Branch prasugreL 0 Yes [id number] 10mg Take 1 Un pippa 10 mg 8-22 tablet by ity of tablet 00:00: mouth in [place] 00 the Medical morning. Branch Appointmen t needed. Please contact office. semaglutide Yes [id number] 2mg inject 2 [facility] (OZEMPIC) 2 8-22 mg under ity of mg/dose (8 00:00: the skin Price as mg/3 mL) 00 weekly. Medical PnIj Branch busPIRone Yes [id number] TAKE 1/2 [facility] 15 mg 8-22 TO 1 ity of tablet 00:00: TABLET BY [place] 00 MOUTH Medical TWICE Branch DAILY NEEDED FOR ANXIETY levothyroxi Yes [id number] 175ug Take 1 [facility] ne 175 mcg 8-22 tablet by ity of tablet 00:00: mouth [place] every Medical morning. Branch rosuvastati Yes [id number] 20mg Take 1 [facility] n 20 mg 8-22 tablet by ity of tablet 00:00: mouth at [place] [address] bedtime. Medical Branch loratadine Yes [id number] 10mg Take 1 U nivers 10 mg 8-22 tablet by ity of tablet 00:00: mouth at [place] [address] bedtime. Medical Branch prasugreL Yes [id number] 10mg Take 1 Un pippa 10 mg 8-22 tablet by ity of tablet 00:00: mouth in [place] the Medical morning. Branch Appointmen t needed. Please contact office. semaglutide Yes [id number] 2mg inject 2 [facility] (OZEMPIC) 2 8-22 mg under ity of mg/dose (8 00:00: the skin Price as mg/3 mL) 00 weekly. Medical PnIj Branch busPIRone Yes [id number] TAKE 1/2 [facility] 15 mg 8-22 TO 1 ity of tablet 00:00: TABLET BY [place] 00 MOUTH Medical TWICE [place] DAILY NEEDED FOR ANXIETY levothyroxi Yes [id number] 175ug Take 1 [facility] ne 175 mcg 8-22 tablet by ity of tablet 00:00: mouth [place] every Medical morning. Branch rosuvastati Yes [id number] 20mg Take 1 [facility] n 20 mg 8-22 tablet by ity of tablet 00:00: mouth at [place] [address] bedtime. Medical Branch loratadine Yes [id number] 10mg Take 1 U nivers 10 mg 8-22 tablet by ity of tablet 00:00: mouth at [place] [address] bedtime. Medical Branch prasugreL 0 Yes [id number] 10mg Take 1 Un pippa 10 mg 8-22 tablet by ity of tablet 00:00: mouth in [place] 00 the Medical morning. Branch Appointmen t needed. Please contact office. semaglutide Yes [id number] 2mg inject 2 [facility] (OZEMPIC) 2 8-22 mg under ity of mg/dose (8 00:00: the skin Price as mg/3 mL) 00 weekly. Medical PnIj Branch busPIRone Yes [id number] TAKE 1/2 [facility] 15 mg 8-22 TO 1 ity of tablet 00:00: TABLET BY [place] 00 MOUTH Medical TWICE Branch DAILY NEEDED FOR ANXIETY levothyroxi Yes [id number] 175ug Take 1 [facility] ne 175 mcg 8-22 tablet by ity of tablet 00:00: mouth [place] every Medical morning. Branch rosuvastati 0 Yes [id number] 20mg Take 1 [facility] n 20 mg 8-22 tablet by ity of tablet 00:00: mouth at [place] [address] bedtime. Medical Branch loratadine Yes [id number] 10mg Take 1 U nivers 10 mg 8-22 tablet by ity of tablet 00:00: mouth at [place] [address] bedtime. Medical Branch prasugreL 0 Yes [id number] 10mg Take 1 Un pippa 10 mg 8-22 tablet by ity of tablet 00:00: mouth in [place] the Medical morning. Branch Appointmen t needed. Please contact office. busPIRone Yes [id number] TAKE 1/2 [facility] 15 mg 8-22 TO 1 ity of tablet 00:00: TABLET BY [place] 00 MOUTH Medical TWICE Branch DAILY NEEDED FOR ANXIETY levothyroxi 2022-0 Yes [id number] 175ug Take 1 [facility] ne 175 mcg 8-22 tablet by ity of tablet 00:00: mouth [place] every Medical morning. Branch rosuvastati 2022-0 Yes [id number] 20mg Take 1 [facility] n 20 mg 8-22 tablet by ity of tablet 00:00: mouth at [place] [address] bedtime. Medical Branch loratadine 2022-0 Yes [id number] 10mg Take 1 U nivers 10 mg 8-22 tablet by ity of tablet 00:00: mouth at [place] [address] bedtime. Medical Branch prasugreL 2022-0 Yes [id number] 10mg Take 1 Un pippa 10 mg 8-22 tablet by ity of tablet 00:00: mouth in [place] 00 the Medical morning. Branch Appointmen t needed. Please contact office. busPIRone Yes [id number] TAKE 1/2 [facility] 15 mg 8-22 TO 1 ity of tablet 00:00: TABLET BY [place] MOUTH Medical TWICE Branch DAILY NEEDED FOR ANXIETY levothyroxi Yes [id number] 175ug Take 1 [facility] ne 175 mcg 8-22 tablet by ity of tablet 00:00: mouth [place] every Medical morning. Branch rosuvastati Yes [id number] 20mg Take 1 [facility] n 20 mg 8-22 tablet by ity of tablet 00:00: mouth at [place] [address] bedtime. Medical Branch loratadine Yes [id number] 10mg Take 1 U nivers 10 mg 8-22 tablet by ity of tablet 00:00: mouth at [place] [address] bedtime. Medical Branch prasugreL Yes [id number] 10mg Take 1 Un pippa 10 mg 8-22 tablet by ity of tablet 00:00: mouth in [place] the Medical morning. Branch Appointmen t needed. Please contact office. busPIRone Yes [id number] TAKE 1/2 [facility] 15 mg 8-22 TO 1 ity of tablet 00:00: TABLET BY [place] MOUTH Medical TWICE Branch DAILY NEEDED FOR ANXIETY levothyroxi Yes [id number] 175ug Take 1 [facility] ne 175 mcg 8-22 tablet by ity of tablet 00:00: mouth [place] every Medical morning. Branch rosuvastati Yes [id number] 20mg Take 1 [facility] n 20 mg 8-22 tablet by ity of tablet 00:00: mouth at [place] [address] bedtime. Medical Branch loratadine Yes [id number] 10mg Take 1 U nivers 10 mg 8-22 tablet by ity of tablet 00:00: mouth at [place] [address] bedtime. Medical Branch prasugreL 0 Yes [id number] 10mg Take 1 Un pippa 10 mg 8-22 tablet by ity of tablet 00:00: mouth in [place] the Medical morning. Branch Appointmen t needed. Please contact office. busPIRone Yes [id number] TAKE 1/2 [facility] 15 mg 8-22 TO 1 ity of tablet 00:00: TABLET BY [place] [address] MOUTH Medical TWICE Branch DAILY NEEDED FOR ANXIETY levothyroxi Yes [id number] 175ug Take 1 [facility] ne 175 mcg 8-22 tablet by ity of tablet 00:00: mouth [place] every Medical morning. Branch rosuvastati Yes [id number] 20mg Take 1 [facility] n 20 mg 8-22 tablet by ity of tablet 00:00: mouth at [place] bedtime. Medical Branch loratadine Yes [id number] 10mg Take 1 U nivers 10 mg 8-22 tablet by ity of tablet 00:00: mouth at [place] bedtime. Medical Branch prasugreL Yes [id number] 10mg Take 1 Un pippa 10 mg 8-22 tablet by ity of tablet 00:00: mouth in [place] the Medical morning. Branch Appointmen t needed. Please contact office. busPIRone Yes [id number] TAKE 1/2 [facility] 15 mg 8-22 TO 1 ity of tablet 00:00: TABLET BY [place] MOUTH Medical TWICE Branch DAILY NEEDED FOR ANXIETY levothyroxi Yes [id number] 175ug Take 1 [facility] ne 175 mcg 8-22 tablet by ity of tablet 00:00: mouth [place] every Medical morning. Branch rosuvastati Yes [id number] 20mg Take 1 [facility] n 20 mg 8-22 tablet by ity of tablet 00:00: mouth at [place] [address] bedtime. Medical Branch loratadine Yes [id number] 10mg Take 1 U nivers 10 mg 8-22 tablet by ity of tablet 00:00: mouth at [place] bedtime. Medical Branch prasugreL Yes [id number] 10mg Take 1 Un pippa 10 mg 8-22 tablet by ity of tablet 00:00: mouth in [place] the Medical morning. Branch Appointmen t needed. Please contact office. busPIRone Yes [id number] TAKE 1/2 [facility] 15 mg 8-22 TO 1 ity of tablet 00:00: TABLET BY [place] [address] MOUTH Medical TWICE Branch DAILY NEEDED FOR ANXIETY levothyroxi Yes [id number] 175ug Take 1 [facility] ne 175 mcg 8-22 tablet by ity of tablet 00:00: mouth [place] every Medical morning. Branch rosuvastati Yes [id number] 20mg Take 1 [facility] n 20 mg 8-22 tablet by ity of tablet 00:00: mouth at [place] 00 bedtime. Medical Branch loratadine Yes [id number] 10mg Take 1 U nivers 10 mg 8-22 tablet by ity of tablet 00:00: mouth at [place] 00 bedtime. Medical Branch prasugreL 0 Yes [id number] 10mg Take 1 Un [place] 10 mg 8-22 tablet by ity of tablet 00:00: mouth in [place] the Medical morning. Branch Appointmen t needed. Please contact office. busPIRone Yes [id number] TAKE 1/2 [facility] 15 mg 8-22 TO 1 ity of tablet 00:00: TABLET BY [place] [address] MOUTH Medical TWICE Branch DAILY NEEDED FOR ANXIETY levothyroxi Yes [id number] 175ug Take 1 [facility] ne 175 mcg 8-22 tablet by ity of tablet 00:00: mouth [place] every Medical morning. Branch rosuvastati Yes [id number] 20mg Take 1 [facility] n 20 mg 8-22 tablet by ity of tablet 00:00: mouth at [place] [address] bedtime. Medical Branch loratadine Yes [id number] 10mg Take 1 U nivers 10 mg 8-22 tablet by ity of tablet 00:00: mouth at [place] [address] bedtime. Medical Branch prasugreL 0 Yes [id number] 10mg Take 1 Un [place] 10 mg 8-22 tablet by ity of tablet 00:00: mouth in [place] the Medical morning. Branch Appointmen t needed. Please contact office. busPIRone Yes [id number] TAKE 1/2 [facility] 15 mg 8-22 TO 1 ity of tablet 00:00: TABLET BY [place] [address] MOUTH Medical TWICE Branch DAILY NEEDED FOR ANXIETY levothyroxi 2022-0 Yes [id number] 175ug Take 1 [facility] ne 175 mcg 8-22 tablet by ity of tablet 00:00: mouth [place] [address] every Medical morning. Branch rosuvastati Yes [id number] 20mg Take 1 [facility] n 20 mg 8-22 tablet by ity of tablet 00:00: mouth at [place] [address] bedtime. Medical Branch loratadine 2023-0 Yes [id number] 10mg Take 1 U nivers 10 mg 8-22 tablet by ity of tablet 00:00: mouth at [place] 00 bedtime. Medical Branch prasugreL 2022-0 Yes [id number] 10mg Take 1 [facility] [place] 10 mg 8-22 tablet by ity of tablet 00:00: mouth in [place] the Medical morning. Branch Appointmen t needed. Please contact office. busPIRone 0 Yes [id number] TAKE 1/2 [facility] 15 mg 8-22 TO 1 ity of tablet 00:00: TABLET BY [place] 00 MOUTH Medical TWICE Branch DAILY NEEDED FOR ANXIETY levothyroxi 0 Yes [id number] 175ug Take 1 [facility] ne 175 mcg 8-22 tablet by ity of tablet 00:00: mouth [place] every Medical morning. Branch rosuvastati 0 Yes [id number] 20mg Take 1 [facility] n 20 mg 8-22 tablet by ity of tablet 00:00: mouth at [place] 00 bedtime. Medical Branch loratadine 0 Yes [id number] 10mg Take 1 [facility] 10 mg 8-22 tablet by it[facility] of tablet 00:00: mouth at [place] bedtime. Medical Branch prasugreL 0 Yes [id number] 10mg Take 1 [facility] [place] 10 mg 8-22 tablet by ity of tablet 00:00: mouth in [place] the Medical morning. Branch Appointmen t needed. Please contact office. busPIRone 2022-0 Yes [id number] TAKE 1/2 [facility] 15 mg 8-22 TO 1 ity of tablet 00:00: TABLET BY [place] MOUTH Medical TWICE Branch DAILY NEEDED FOR ANXIETY levothyroxi 2022-0 Yes [id number] 175ug Take 1 [facility] ne 175 mcg 8-22 tablet by ity of tablet 00:00: mouth [place] every Medical morning. Branch rosuvastati 2022-0 Yes [id number] 20mg Take 1 [facility] n 20 mg 8-22 tablet by ity of tablet 00:00: mouth at [place] [address] bedtime. Medical Branch loratadine 2022-0 Yes [id number] 10mg Take 1 [facility] 10 mg 8-22 tablet by ity of tablet 00:00: mouth at [place] 00 bedtime. Medical Branch prasugreL 2022-0 Yes [id number] 10mg Take 1 [facility] [place] 10 mg 8-22 tablet by ity of tablet 00:00: mouth in [place] the Medical morning. Branch Appointmen t needed. Please contact office. busPIRone Yes [id number] TAKE 1/2 [facility] 15 mg 8-22 TO 1 ity of tablet 00:00: TABLET BY [place] 00 MOUTH Medical TWICE Branch DAILY NEEDED FOR ANXIETY levothyroxi Yes [id number] 175ug Take 1 [facility] ne 175 mcg 8-22 tablet by ity of tablet 00:00: mouth [place] every Medical morning. Branch rosuvastati Yes [id number] 20mg Take 1 [facility] n 20 mg 8-22 tablet by ity of tablet 00:00: mouth at [place] 00 bedtime. Medical Branch loratadine Yes [id number] 10mg Take 1 [facility] 10 mg 8-22 tablet by ity of tablet 00:00: mouth at [place] bedtime. Medical Branch prasugreL Yes [id number] 10mg Take 1 [facility] [place] 10 mg 8-22 tablet by ity of tablet 00:00: mouth in [place] the Medical morning. Branch Appointmen t needed. Please contact office. busPIRone Yes [id number] TAKE 1/2 [facility] 15 mg 8-22 TO 1 ity of tablet 00:00: TABLET BY [place] MOUTH Medical TWICE Branch DAILY NEEDED FOR ANXIETY levothyroxi Yes [id number] 175ug Take 1 [facility] ne 175 mcg 8-22 tablet by ity of tablet 00:00: mouth [place] every Medical morning. Branch rosuvastati Yes [id number] 20mg Take 1 [facility] n 20 mg 8-22 tablet by ity of tablet 00:00: mouth at [place] [address] bedtime. Medical Branch loratadine Yes [id number] 10mg Take 1 [facility] 10 mg 8-22 tablet by ity of tablet 00:00: mouth at [place] [address] bedtime. Medical Branch prasugreL 0 Yes [id number] 10mg Take 1 [facility] [place] 10 mg 8-22 tablet by [facility] of tablet 00:00: mouth in [place] the Medical morning. Branch Appointmen t needed. Please contact office. busPIRone Yes [id number] TAKE 1/2 [facility] 15 mg 8-22 TO 1 ity of tablet 00:00: TABLET BY [place] 00 MOUTH Medical TWICE Branch DAILY NEEDED FOR ANXIETY levothyroxi Yes [id number] 175ug Take 1 [facility] ne 175 mcg 8-22 tablet by ity of tablet 00:00: mouth [place] every Medical morning. Branch rosuvastati Yes [id number] 20mg Take 1 [facility] n 20 mg 8-22 tablet by ity of tablet 00:00: mouth at [place] [address] bedtime. Medical Branch loratadine Yes [id number] 10mg Take 1 [facility] 10 mg 8-22 tablet by ity of tablet 00:00: mouth at [place] [address] bedtime. Medical Branch prasugreL Yes [id number] 10mg Take 1 [facility] [place] 10 mg 8-22 tablet by ity of tablet 00:00: mouth in [place] the Medical morning. Branch Appointmen t needed. Please contact office. busPIRone Yes [id number] TAKE 1/2 [facility] 15 mg 8-22 TO 1 ity of tablet 00:00: TABLET BY [place] 00 MOUTH Medical TWICE Branch DAILY NEEDED FOR ANXIETY levothyroxi Yes [id number] 175ug Take 1 [facility] ne 175 mcg 8-22 tablet by ity of tablet 00:00: mouth [place] every Medical morning. Branch rosuvastati Yes [id number] 20mg Take 1 [facility] n 20 mg 8-22 tablet by ity of tablet 00:00: mouth at [place] [address] bedtime. Medical Branch loratadine Yes [id number] 10mg Take 1 [facility] 10 mg 8-22 tablet by ity of tablet 00:00: mouth at [place] [address] bedtime. Medical Branch prasugreL Yes [id number] 10mg Take 1 [facility] [place] 10 mg 8-22 tablet by ity of tablet 00:00: mouth in [place] the Medical morning. Branch Appointmen t needed. Please contact office. semaglutide 2022- No [id number] 2mg inject 2 [facility] (OZEMPIC) 2 8-22 10-03 mg under ity of mg/dose (8 00:00: 00:00 [place] mg/3 mL) 00 :00 weekly. Medical PnIj Branch Insulin Yes [id number] ADMINISTER [facility] Glargine 8-18 30 UNITS ity of (LANTUS 00:00: UNDER THE [place] [facility] 00 SKIN TWICE Medic al U-100 DAILY Branch INSULIN) 100 unit/mL (3 mL) injection Insulin Yes [id number] ADMINISTER [facility] Glargine 8-18 30 UNITS ity of (LANTUS 00:00: UNDER THE [place] [facility] 00 SKIN TWICE Medic al U-100 DAILY Branch INSULIN) 100 unit/mL (3 mL) injection Insulin Yes [id number] ADMINISTER [facility] Glargine 8-18 30 UNITS ity of (LANTUS 00:00: UNDER THE [place] [facility] 00 SKIN TWICE Medic al U-100 DAILY Branch INSULIN) 100 unit/mL (3 mL) injection Insulin Yes [id number] ADMINISTER [facility] Glargine 8-18 30 UNITS ity of (LANTUS 00:00: UNDER THE [place] [facility] 00 SKIN TWICE Medic al U-100 DAILY Branch INSULIN) 100 unit/mL (3 mL) injection Insulin Yes [id number] ADMINISTER [facility] Glargine 8-18 30 UNITS ity of (LANTUS 00:00: UNDER THE [place] [facility] 00 SKIN TWICE Medic al U-100 DAILY Branch INSULIN) 100 unit/mL (3 mL) injection Insulin Yes [id number] ADMINISTER [facility] Glargine 8-18 30 UNITS ity of (LANTUS 00:00: UNDER THE [place] [facility] 00 SKIN TWICE Medic al U-100 DAILY Branch INSULIN) 100 unit/mL (3 mL) injection Insulin Yes [id number] ADMINISTER [facility] Glargine 8-18 30 UNITS ity of (LANTUS 00:00: UNDER THE [place] [facility] 00 SKIN TWICE Medic al U-100 DAILY Branch INSULIN) 100 unit/mL (3 mL) injection Insulin Yes [id number] ADMINISTER [facility] Glargine 8-18 30 UNITS ity of (LANTUS 00:00: UNDER THE [place] [facility] 00 SKIN TWICE Medic al U-100 DAILY Branch INSULIN) 100 unit/mL (3 mL) injection Insulin Yes [id number] ADMINISTER [facility] Glargine 8-18 30 UNITS ity of (LANTUS 00:00: UNDER THE [place] [facility] 00 SKIN TWICE Medic al U-100 DAILY Branch INSULIN) 100 unit/mL (3 mL) injection Insulin Yes [id number] ADMINISTER [facility] Glargine 818 30 UNITS ity of (LANTUS 00:00: UNDER THE [place] [facility] 00 SKIN TWICE Medic al U-100 DAILY Branch INSULIN) 100 unit/mL (3 mL) injection Insulin Yes [id number] ADMINISTER [facility] Glargine 818 30 UNITS ity of (LANTUS 00:00: UNDER THE [place] [facility] 00 SKIN TWICE Medic al U-100 DAILY Branch INSULIN) 100 unit/mL (3 mL) injection Insulin 2022- No [id number] ADMINISTER [facility] Glargine 05-1212 30 UNITS ity of (LANTUS 00:00: 00:00 UNDER THE [place] [facility] SOLOSTAR 00 :00 SKIN TWICE Medic al U-100 DAILY Branch INSULIN) 100 unit/mL (3 mL) injection Insulin 2022- No [id number] ADMINISTER [facility] Glargine 05-12 30 UNITS ity of (LANTUS 00:00: 00:00 UNDER THE [place] [facility] SOLOSTAR 00 :00 SKIN TWICE Medic al U-100 DAILY Branch INSULIN) 100 unit/mL (3 mL) injection FLUTICASONE Yes [id number] SHAKE U nivers PROPIONATE 8-16 LIQUID AND ity of 50 00:00: USE 1 TO 2 [place] mcg/actuati 00 SPRAYS IN Med ical on nasal EACH Branch spray NOSTRIL IN THE MORNING FLUTICASONE Yes [id number] SHAKE U nivers PROPIONATE 8-16 LIQUID AND ity of 50 00:00: USE 1 TO 2 [place] mcg/actuati 00 SPRAYS IN Med ical on nasal EACH Branch spray NOSTRIL IN THE MORNING FLUTICASONE Yes [id number] SHAKE U nivers PROPIONATE 8-16 LIQUID AND ity of 50 00:00: USE 1 TO 2 [place] mcg/actuati 00 SPRAYS IN Med ical on nasal EACH Branch spray NOSTRIL IN THE MORNING FLUTICASONE Yes [id number] SHAKE U nivers PROPIONATE 8-16 LIQUID AND ity of 50 00:00: USE 1 TO 2 [place] mcg/actuati 00 SPRAYS IN Med ical on nasal EACH Branch spray NOSTRIL IN THE MORNING FLUTICASONE Yes [id number] SHAKE U nivers PROPIONATE 8-16 LIQUID AND ity of 50 00:00: USE 1 TO 2 [place] mcg/actuati 00 SPRAYS IN Med ical on nasal EACH Branch spray NOSTRIL IN THE MORNING FLUTICASONE Yes [id number] SHAKE U nivers PROPIONATE 8-16 LIQUID AND ity of 50 00:00: USE 1 TO 2 [place] mcg/actuati 00 SPRAYS IN Med ical on nasal EACH Branch spray NOSTRIL IN THE MORNING FLUTICASONE Yes [id number] SHAKE U nivers PROPIONATE 8-16 LIQUID AND ity of 50 00:00: USE 1 TO 2 [place] mcg/actuati 00 SPRAYS IN Med ical on nasal EACH Branch spray NOSTRIL IN THE MORNING FLUTICASONE Yes [id number] SHAKE U nivers PROPIONATE 8-16 LIQUID AND ity of 50 00:00: USE 1 TO 2 [place] mcg/actuati 00 SPRAYS IN Med ical on nasal EACH Branch spray NOSTRIL IN THE MORNING FLUTICASONE Yes [id number] SHAKE U nivers PROPIONATE 8-16 LIQUID AND ity of 50 00:00: USE 1 TO 2 [place] mcg/actuati 00 SPRAYS IN Med ical on nasal EACH Branch spray NOSTRIL IN THE MORNING FLUTICASONE Yes [id number] SHAKE U nivers PROPIONATE 8-16 LIQUID AND ity of 50 00:00: USE 1 TO 2 [place] mcg/actuati 00 SPRAYS IN Med ical on nasal EACH Branch spray NOSTRIL IN THE MORNING FLUTICASONE Yes [id number] SHAKE U nivers PROPIONATE 8-16 LIQUID AND ity of 50 00:00: USE 1 TO 2 [place] mcg/actuati 00 SPRAYS IN Med ical on nasal EACH Branch spray NOSTRIL IN THE MORNING FLUTICASONE Yes [id number] SHAKE U nivers PROPIONATE 8-16 LIQUID AND ity of 50 00:00: USE 1 TO 2 [place] mcg/actuati 00 SPRAYS IN Med ical on nasal EACH Branch spray NOSTRIL IN THE MORNING FLUTICASONE Yes [id number] SHAKE U nivers PROPIONATE 8-16 LIQUID AND ity of 50 00:00: USE 1 TO 2 [place] mcg/actuati 00 SPRAYS IN Med ical on nasal EACH Branch spray NOSTRIL IN THE MORNING FLUTICASONE Yes [id number] SHAKE U nivers PROPIONATE 8-16 LIQUID AND ity of 50 00:00: USE 1 TO 2 [place] mcg/actuati 00 SPRAYS IN Med ical on nasal EACH Branch spray NOSTRIL IN THE MORNING FLUTICASONE Yes [id number] SHAKE U nivers PROPIONATE 8-16 LIQUID AND ity of 50 00:00: USE 1 TO 2 [place] mcg/actuati 00 SPRAYS IN Med ical on nasal EACH Branch spray NOSTRIL IN THE MORNING FLUTICASONE Yes [id number] SHAKE U nivers PROPIONATE 8-16 LIQUID AND ity of 50 00:00: USE 1 TO 2 [place] mcg/actuati 00 SPRAYS IN Med ical on nasal EACH Branch spray NOSTRIL IN THE MORNING FLUTICASONE 2022- No [id number] SHAKE Univers PROPIONATE 8-16 09-16 LIQUID AND it y of 50 00:00: 00:00 USE 1 TO 2 [place] mcg/actuati 00 :00 SPRAYS IN Med ical on nasal EACH Branch spray NOSTRIL IN THE MORNING SPIRONOLACT Yes [id number] 25mg TAKE 1 [facility] ONE 25 mg 7-28 TABLET BY ity o f tablet 00:00: MOUTH IN [place] THE Medical MORNING Branch SPIRONOLACT 0 Yes [id number] 25mg TAKE 1 [facility] ONE 25 mg 7-28 TABLET BY ity o f tablet 00:00: MOUTH IN [place] THE Medical MORNING Branch SPIRONOLACT 0 Yes [id number] 25mg TAKE 1 [facility] ONE 25 mg 7-28 TABLET BY ity o f tablet 00:00: MOUTH IN [place] THE Medical MORNING Branch SPIRONOLACT 0 Yes [id number] 25mg TAKE 1 [facility] ONE 25 mg 7-28 TABLET BY ity o f tablet 00:00: MOUTH IN [place] 00 THE Medical MORNING Branch SPIRONOLACT 0 Yes [id number] 25mg TAKE 1 [facility] ONE 25 mg 7-28 TABLET BY ity o f tablet 00:00: MOUTH IN [place] 00 THE Medical MORNING Branch SPIRONOLACT 2022-0 Yes [id number] 25mg TAKE 1 [facility] ONE 25 mg 7-28 TABLET BY ity o f tablet 00:00: MOUTH IN [place] 00 THE Medical MORNING Branch SPIRONOLACT 2022-0 Yes [id number] 25mg TAKE 1 [facility] ONE 25 mg 7-28 TABLET BY ity o f tablet 00:00: MOUTH IN [place] 00 THE Medical MORNING Branch SPIRONOLACT 2022-0 Yes [id number] 25mg TAKE 1 [facility] ONE 25 mg 7-28 TABLET BY ity o f tablet 00:00: MOUTH IN [place] 00 THE Medical MORNING Branch SPIRONOLACT 2022-0 Yes [id number] 25mg TAKE 1 [facility] ONE 25 mg 7-28 TABLET BY ity o f tablet 00:00: MOUTH IN [place] 00 THE Medical MORNING Branch SPIRONOLACT 2022-0 Yes [id number] 25mg TAKE 1 [facility] ONE 25 mg 7-28 TABLET BY ity o f tablet 00:00: MOUTH IN [place] 00 THE Medical MORNING Branch SPIRONOLACT 2022-0 Yes [id number] 25mg TAKE 1 [facility] ONE 25 mg 7-28 TABLET BY ity o f tablet 00:00: MOUTH IN [place] 00 THE Medical MORNING Branch SPIRONOLACT 2022-0 Yes [id number] 25mg TAKE 1 [facility] ONE 25 mg 7-28 TABLET BY ity o f tablet 00:00: MOUTH IN [place] 00 THE Medical MORNING Branch SPIRONOLACT 2022-0 Yes [id number] 25mg TAKE 1 [facility] ONE 25 mg 7-28 TABLET BY ity o f tablet 00:00: MOUTH IN [place] 00 THE Medical MORNING Branch SPIRONOLACT 2022-0 Yes [id number] 25mg TAKE 1 [facility] ONE 25 mg 7-28 TABLET BY ity o f tablet 00:00: MOUTH IN [place] 00 THE Medical MORNING Branch SPIRONOLACT 2022-0 Yes [id number] 25mg TAKE 1 [facility] ONE 25 mg 7-28 TABLET BY ity o f tablet 00:00: MOUTH IN [place] 00 THE Medical MORNING Branch SPIRONOLACT 2022-0 Yes [id number] 25mg TAKE 1 [facility] ONE 25 mg 7-28 TABLET BY ity o f tablet 00:00: MOUTH IN [place] 00 THE Medical MORNING Branch SPIRONOLACT 2022-0 Yes [id number] 25mg TAKE 1 [facility] ONE 25 mg 7-28 TABLET BY ity o f tablet 00:00: MOUTH IN [place] 00 THE Medical MORNING Branch SPIRONOLACT 2022-0 Yes [id number] 25mg TAKE 1 [facility] ONE 25 mg 7-28 TABLET BY ity o f tablet 00:00: MOUTH IN [place] 00 THE Medical MORNING Branch SPIRONOLACT 2022-0 Yes [id number] 25mg TAKE 1 [facility] ONE 25 mg 7-28 TABLET BY ity o f tablet 00:00: MOUTH IN [place] 00 THE Medical MORNING Branch SPIRONOLACT 2022-0 Yes [id number] 25mg TAKE 1 [facility] ONE 25 mg 7-28 TABLET BY ity o f tablet 00:00: MOUTH IN [place] 00 THE Medical MORNING Branch SPIRONOLACT 2022-0 Yes [id number] 25mg TAKE 1 [facility] ONE 25 mg 7-28 TABLET BY ity o f tablet 00:00: MOUTH IN [place] 00 THE Medical MORNING Branch SPIRONOLACT 2022-0 Yes [id number] 25mg TAKE 1 [facility] ONE 25 mg 7-28 TABLET BY ity o f tablet 00:00: MOUTH IN [place] 00 THE Medical MORNING Branch SPIRONOLACT 2022-0 Yes [id number] 25mg TAKE 1 [facility] ONE 25 mg 7-28 TABLET BY ity o f tablet 00:00: MOUTH IN [place] 00 THE Medical MORNING Branch SPIRONOLACT 2022-0 Yes [id number] 25mg TAKE 1 Univers ONE 25 mg 7-28 TABLET BY ity o f tablet 00:00: MOUTH IN [place] 00 THE Medical MORNING Branch SPIRONOLACT 2022-0 Yes [id number] 25mg TAKE 1 [facility] ONE 25 mg 7-28 TABLET BY ity o f tablet 00:00: MOUTH IN [place] 00 THE Medical MORNING Branch SPIRONOLACT 2022-0 Yes [id number] 25mg TAKE 1 [facility] ONE 25 mg 7-28 TABLET BY ity o f tablet 00:00: MOUTH IN [place] 00 THE Medical MORNING Branch SPIRONOLACT 2022-0 Yes [id number] 25mg TAKE 1 [facility] ONE 25 mg 7-28 TABLET BY ity o f tablet 00:00: MOUTH IN [place] 00 THE Medical MORNING Branch SPIRONOLACT 2022-0 Yes [id number] 25mg TAKE 1 [facility] ONE 25 mg 7-28 TABLET BY ity o f tablet 00:00: MOUTH IN [place] 00 THE Medical MORNING Branch SPIRONOLACT 2022-0 Yes [id number] 25mg TAKE 1 [facility] ONE 25 mg 7-28 TABLET BY ity o f tablet 00:00: MOUTH IN [place] 00 THE Medical MORNING Branch SPIRONOLACT 2022-0 Yes [id number] 25mg TAKE 1 [facility] ONE 25 mg 7-28 TABLET BY ity o f tablet 00:00: MOUTH IN [place] 00 THE Medical MORNING Branch SPIRONOLACT 2022-0 Yes [id number] 25mg TAKE 1 [facility] ONE 25 mg 7-28 TABLET BY ity o f tablet 00:00: MOUTH IN [place] 00 THE Medical MORNING Branch SPIRONOLACT 2022-0 Yes [id number] 25mg TAKE 1 [facility] ONE 25 mg 7-28 TABLET BY ity o f tablet 00:00: MOUTH IN [place] 00 THE Medical MORNING Branch SPIRONOLACT 2022-0 Yes [id number] 25mg TAKE 1 [facility] ONE 25 mg 7-28 TABLET BY ity o f tablet 00:00: MOUTH IN [place] 00 THE Medical MORNING Branch SPIRONOLACT 2022-0 Yes [id number] 25mg TAKE 1 [facility] ONE 25 mg 7-28 TABLET BY ity o f tablet 00:00: MOUTH IN [place] 00 THE Medical MORNING Branch SPIRONOLACT 2022-0 Yes [id number] 25mg TAKE 1 [facility] ONE 25 mg 7-28 TABLET BY ity o f tablet 00:00: MOUTH IN [place] 00 THE Medical MORNING Branch SPIRONOLACT 2022-0 Yes [id number] 25mg TAKE 1 [facility] ONE 25 mg 7-28 TABLET BY ity o f tablet 00:00: MOUTH IN [place] 00 THE Medical MORNING Branch Insulin 2022-0 Yes [id number] ADMINISTER [facility] Glargine 7-17 30 UNITS ity of (LANTUS 00:00: UNDER THE [facility] SKIN TWICE Medic al U-100 DAILY Branch INSULIN) 100 unit/mL (3 mL) injection Insulin 2022-0 Yes [id number] ADMINISTER [facility] Glargine 7-17 30 UNITS ity of (LANTUS 00:00: UNDER THE [facility] SKIN TWICE Medic al U-100 DAILY Branch INSULIN) 100 unit/mL (3 mL) injection Insulin 2022-0 Yes [id number] ADMINISTER [facility] Glargine 7-17 30 UNITS ity of (LANTUS 00:00: UNDER THE [facility] SKIN TWICE Medic al U-100 DAILY Branch INSULIN) 100 unit/mL (3 mL) injection Insulin 2022- No [id number] ADMINISTER [facility] Glargine 7-17 08-18 30 UNITS ity of (LANTUS 00:00: 00:00 UNDER THE [place] [facility] SOLOSTAR 00 :00 SKIN TWICE Medic al U-100 DAILY Branch INSULIN) 100 unit/mL (3 mL) injection FLUTICASONE Yes [id number] SHAKE U nivers PROPIONATE 6-28 LIQUID AND ity of 50 00:00: USE 1 TO 2 [place] mcg/actuati 00 SPRAYS IN Med ical on nasal EACH Branch spray NOSTRIL IN THE MORNING FLUTICASONE Yes [id number] SHAKE U nivers PROPIONATE 6-28 LIQUID AND ity of 50 00:00: USE 1 TO 2 [place] mcg/actuati 00 SPRAYS IN Med ical on nasal EACH Branch spray NOSTRIL IN THE MORNING FLUTICASONE Yes [id number] SHAKE U nivers PROPIONATE 6-28 LIQUID AND ity of 50 00:00: USE 1 TO 2 [place] mcg/actuati 00 SPRAYS IN Med ical on nasal EACH Branch spray NOSTRIL IN THE MORNING FLUTICASONE 2022- No [id number] SHAKE Univers PROPIONATE 6-28 08-16 LIQUID AND it y of 50 00:00: 00:00 USE 1 TO 2 [place] mcg/actuati 00 :00 SPRAYS IN Med ical on nasal EACH Branch spray NOSTRIL IN THE MORNING Insulin Yes [id number] ADMINISTER [facility] Glargine 6-19 30 UNITS ity of (LANTUS 00:00: UNDER THE [place] SOLOST[facility] 00 SKIN TWICE Medic al U-100 DAILY Branch INSULIN) 100 unit/mL (3 mL) injection Insulin Yes [id number] ADMINISTER [facility] Glargine 6-19 30 UNITS ity of (LANTUS 00:00: UNDER THE [place] SOLOST[facility] 00 SKIN TWICE Medic al U-100 DAILY Branch INSULIN) 100 unit/mL (3 mL) injection Insulin 2022- No [id number] ADMINISTER [facility] Glargine 6-19 07-17 30 UNITS ity of (LANTUS 00:00: 00:00 UNDER THE [facility] SOLOSTAR 00 :00 SKIN TWICE Medic al U-100 DAILY Branch INSULIN) 100 unit/mL (3 mL) injection traMADoL No 50mg 50 mg, Univer s (ULTRAM) 02-20 Oral, ONCE ity of tablet 50 06:45: 05:58 NOW, 1 [place] mg 00 :00 dose, On Medical Mon [place] 02/20/23 at 0145, KRAIG furosemide 2022- No 20mg 20 mg, IV U nivers (LASIX) 02-20 Push, ity of injection 05:45: 05:45 ONCE, [place] 20 [place] 00 :00 dose, On [facility] 02/20/23 at 0045, KRAIG ketorolac No 30mg 30 mg, Unive rs (TORADOL) 02-20 Slow IV ity of injection 04:45: 03:56 Push, [place] 30 mg 00 :00 ONCE, 1 Medical dose, On [facility] 02/19/23 at 2345, Routine acetaminoph No 1000mg 1,000 mg, Univers en 02-20 Oral, ity of (TYLENOL) 03:00: 02:54 ONCE, [place] tablet 00 :[place] dose, On Medical 1,000 mg [facility] 02/19/23 at 2200, KRAIG OXcarbazepi Yes Take by Uni vers ne 150 mg 5-29 mouth once ity of tablet 01:07: now. [address] OXcarbazepi 0 Yes Take by Uni vers ne 150 mg 5-29 mouth once ity of tablet 01:07: now. [address] OXcarbazepi 0 Yes Take by Uni vers ne 150 mg 5-29 mouth once ity of tablet 01:07: now. [address] OXcarbazepi 2022-0 Yes Take by Uni vers ne 150 mg 5-29 mouth once ity of tablet 01:07: now. [address] OXcarbazepi 2022-0 Yes Take by Uni vers ne 150 mg 5-29 mouth once ity of tablet 01:07: now. [address] OXcarbazepi 0 Yes Take by Uni vers ne 150 mg 5-29 mouth once ity of tablet 01:07: now. [address] Branch OXcarbazepi 2023-0 Yes Take by Uni vers ne 150 mg 5-29 mouth once ity of tablet 01:07: now. [address] Branch OXcarbazepi 2023-0 Yes Take by Uni vers ne 150 mg 5-29 mouth once ity of tablet 01:07: now. [address] Branch furosemide 2023-0 Yes [id number] 40mg Take 1 U nivers (LASIX) 40 5-29 tablet by [place] of mg tablet 00:00: [place] 00 the Medical morning. Branch furosemide 2023-0 Yes [id number] 40mg Take 1 U nivers (LASIX) 40 5-29 tablet by [place] of mg tablet 00:00: mouth [place] 00 the Medical morning. Branch furosemide 2023-0 Yes [id number] 40mg Take 1 U nivers (LASIX) 40 5-29 tablet by [place] of mg tablet 00:00: mouth [place] the Medical morning. Branch furosemide 3-0 Yes [id number] 40mg Take 1 U nivers (LASIX) 40 5-29 tablet by [place] of mg tablet 00:00: mouth [place] the Medical morning. Branch furosemide 2023-0 Yes [id number] 40mg Take 1 U nivers (LASIX) 40 5-29 tablet by [place] of mg tablet 00:00: mouth [place] the Medical morning. Branch furosemide 2023-0 Yes [id number] 40mg Take 1 U nivers (LASIX) 40 5-29 tablet by [place] of mg tablet 00:00: mouth [place] the Medical morning. Branch furosemide 2023-0 Yes [id number] 40mg Take 1 U nivers (LASIX) 40 5-29 tablet by [place] of mg tablet 00:00: mouth [place] the Medical morning. Branch furosemide 2023-0 Yes [id number] 40mg Take 1 U nivers (LASIX) 40 5-29 tablet by [place] of mg tablet 00:00: mouth [place] the Medical morning. Branch furosemide 2023-0 Yes [id number] 40mg Take 1 U nivers (LASIX) 40 5-29 tablet by [place] of mg tablet 00:00: [place] the Medical morning. Branch furosemide 2023-0 Yes [id number] 40mg Take 1 U nivers (LASIX) 40 5-29 tablet by [place] of mg tablet 00:00: [place] the Medical morning. Branch furosemide 2022-0 Yes [id number] 40mg Take 1 U nivers (LASIX) 40 5-29 tablet by [place] of mg tablet 00:00: [place] the Medical morning. Branch furosemide 2022-0 Yes [id number] 40mg Take 1 U nivers (LASIX) 40 5-29 tablet by [place] of mg tablet 00:00: [place] the Medical morning. Branch furosemide 2022-0 Yes [id number] 40mg Take 1 U nivers (LASIX) 40 5-29 tablet by [place] of mg tablet 00:00: [place] the Medical morning. Branch furosemide 2022-0 Yes [id number] 40mg Take 1 U nivers (LASIX) 40 5-29 tablet by [place] of mg tablet 00:00: [place] the Medical morning. Branch furosemide 2022-0 Yes [id number] 40mg Take 1 U nivers (LASIX) 40 5-29 tablet by [place] of mg tablet 00:00: [place] the Medical morning. Branch furosemide 2022-0 Yes [id number] 40mg Take 1 [facility] (LASIX) 40 5-29 tablet by [facility] mg tablet 00:00: [place] 00 the Medical morning. Branch furosemide 2022-0 Yes [id number] 40mg Take 1 [facility] (LASIX) 40 5-29 tablet by [place] mg tablet 00:00: [place] 00 the Medical morning. Branch furosemide 2022-0 Yes [id number] 40mg Take 1 [facility] (LASIX) 40 5-29 tablet by [place] mg tablet 00:00: [place] 00 the Medical morning. Branch furosemide 3-0 Yes [id number] 40mg Take 1 [facility] (LASIX) 40 5-29 tablet by [place] mg tablet 00:00: [place] 00 the Medical morning. Branch furosemide 3-0 Yes [id number] 40mg Take 1 [facility] (LASIX) 40 5-29 tablet by [place] mg tablet 00:00: [place] 00 the Medical morning. Branch furosemide 2022-0 Yes [id number] 40mg Take 1 [facility] (LASIX) 40 5-29 tablet by [place] mg tablet 00:00: [place] 00 the Medical morning. Branch furosemide 2022-0 Yes [id number] 40mg Take 1 [facility] (LASIX) 40 5-29 tablet by [place] mg tablet 00:00: [place] 00 the Medical morning. Branch furosemide 2022-0 Yes [id number] 40mg Take 1 [facility] (LASIX) 40 5-29 tablet by [place] mg tablet 00:00: [place] 00 the Medical morning. Branch furosemide 2022-0 Yes [id number] 40mg Take 1 [facility] (LASIX) 40 5-29 tablet by [place] [place] mg tablet 00:00: [place] 00 the Medical morning. Branch furosemide 2022-0 Yes [id number] 40mg Take 1 [facility] (LASIX) 40 5-29 tablet by [place] mg tablet 00:00: [place] 00 the Medical morning. Branch furosemide 2022-0 Yes [id number] 40mg Take 1 [facility] (LASIX) 40 5-29 tablet by [place] mg tablet 00:00: [place] 00 the Medical morning. Branch furosemide 2022-0 Yes [id number] 40mg Take 1 [facility] (LASIX) 40 5-29 tablet by [place] mg tablet 00:00: [place] 00 the Medical morning. Branch furosemide 2022-0 Yes [id number] 40mg Take 1 [facility] (LASIX) 40 5-29 tablet by [place] mg tablet 00:00: [place] 00 the Medical morning. Branch furosemide 2022-0 Yes [id number] 40mg Take 1 [facility] (LASIX) 40 5-29 tablet by [place] mg tablet 00:00: [place] 00 the Medical morning. Branch furosemide 2022-0 3- No [id number] 40mg Take 1 [facility] (LASIX) 40 5-29 10-09 tablet by ity of mg tablet 00:00: 00:00 mouth in [place] 00 :00 the Medical morning. Branch lurasidone 2022-0 Yes 1{tbl} Take 1 [facility] vers 120 mg Tab 5-22 tablet by ity of 16:04: mouth at [place] 59 bedtime. Medical Branch lurasidone Yes 1{tbl} Take 1 [facility] vers 120 mg Tab 5-22 tablet by ity of 16:04: mouth at [place] [address] bedtime. Medical Branch lurasidone Yes 1{tbl} Take 1 [facility] vers 120 mg Tab 5-22 tablet by ity of 16:04: mouth at [place] [address] bedtime. Medical Branch lurasidone Yes 1{tbl} Take 1 [facility] vers 120 mg Tab 5-22 tablet by ity of 16:04: mouth at [place] [address] bedtime. Medical Branch lurasidone Yes 1{tbl} Take 1 [facility] vers 120 mg Tab 5-22 tablet by ity of 16:04: mouth at [place] [address] bedtime. Medical Branch lurasidone Yes 1{tbl} Take 1 [facility] vers 120 mg Tab 5-22 tablet by ity of 16:04: mouth at [place] [address] bedtime. Medical Branch lurasidone Yes 1{tbl} Take 1 [facility] vers 120 mg Tab 5-22 tablet by ity of 16:04: mouth at [place] [address] bedtime. Medical Branch lurasidone Yes 1{tbl} Take 1 [facility] vers 120 mg Tab 5-22 tablet by ity of 16:04: mouth at [place] [address] bedtime. Medical Branch lurasidone Yes 1{tbl} Take 1 [facility] vers 120 mg Tab 5-22 tablet by ity of 16:04: mouth at [place] [address] bedtime. Medical Branch lurasidone Yes 1{tbl} Take 1 [facility] vers 120 mg Tab 5-22 tablet by ity of 16:04: mouth at [place] [address] bedtime. Medical Branch lurasidone Yes 1{tbl} Take 1 [facility] vers 120 mg Tab 5-22 tablet by ity of 16:04: mouth at [place] [address] bedtime. Medical Branch semaglutide Yes [id number] 1mg inject 1 [facility] (OZEMPIC) 1 5-22 mg under ity of mg/dose (4 00:00: the [place] mg/3 mL) 00 weekly. Medical [facility] Branch methocarbam Yes [id number] 500mg Take 1 [facility] oL 500 mg 5-22 tablet by ity o f tablet 00:00: mouth 4 (four) Medical times Branch daily as needed for Pain (scale 7-10). Insulin 2022-0 Yes [id number] ADMINISTER [facility] Glargine 5-22 40 UNITS ity of (LANTUS 00:00: UNDER THE [place] SOLOSTAR 00 SKIN TWICE Medic al U-100 DAILY Branch INSULIN) 100 unit/mL (3 mL) injection semaglutide 202-0 Yes [id number] 1mg inject 1 [facility] (OZEMPIC) 1 5-22 mg under ity of mg/dose (4 00:00: the skin [place] mg/3 mL) 00 weekly. Medical PnIj Branch methocarbam 2022-0 Yes [id number] 500mg Take 1 [facility] oL 500 mg 5-22 tablet by ity o f tablet 00:00: mouth 4 (four) Medical times Branch daily as needed for Pain (scale 7-10). Insulin 2022-0 Yes [id number] ADMINISTER [facility] Glargine 5-22 40 UNITS ity of (LANTUS 00:00: UNDER THE [place] SOLOSTAR 00 SKIN TWICE Medic al U-100 DAILY Branch INSULIN) 100 unit/mL (3 mL) injection semaglutide 2022-0 Yes [id number] 1mg inject 1 [facility] (OZEMPIC) 1 5-22 mg under ity of mg/dose (4 00:00: the [place] mg/3 mL) 00 weekly. Medical [facility] Branch methocarbam 2022-0 Yes [id number] 500mg Take 1 [facility] oL 500 mg 5-22 tablet by ity o f tablet 00:00: mouth 4 (four) Medical times Branch daily as needed for Pain (scale 7-10). Insulin 2022-0 Yes [id number] ADMINISTER [facility] Glargine 5-22 40 UNITS ity of (LANTUS 00:00: UNDER THE [place] SOLOSTAR 00 SKIN TWICE Medic al U-100 DAILY Branch INSULIN) 100 unit/mL (3 mL) injection semaglutide 202-0 Yes [id number] 1mg inject 1 [facility] (OZEMPIC) 1 5-22 mg under ity of mg/dose (4 00:00: the skin [place] mg/3 mL) 00 weekly. Medical PnIj Branch methocarbam 2023-0 Yes [id number] 500mg Take 1 [facility] oL 500 mg 5-22 tablet by ity o f tablet 00:00: mouth 4 00 (four) Medical times Branch daily as needed for Pain (scale 7-10). Insulin 2022-0 Yes [id number] ADMINISTER [facility] Glargine 5-22 40 UNITS ity of (LANTUS 00:00: UNDER THE [place] SOLOSTAR 00 SKIN TWICE Medic al U-100 DAILY Branch INSULIN) 100 unit/mL (3 mL) injection semaglutide 2022-0 Yes [id number] 1mg inject 1 [facility] (OZEMPIC) 1 5-22 mg under ity of mg/dose (4 00:00: the skin [place] mg/3 mL) 00 weekly. Medical PnIj Branch methocarbam 2022-0 Yes [id number] 500mg Take 1 [facility] oL 500 mg 5-22 tablet by ity o f tablet 00:00: mouth 4 00 (four) Medical times Branch daily as needed for Pain (scale 7-10). Insulin 2022-0 Yes [id number] ADMINISTER [facility] Glargine 5-22 40 UNITS ity of (LANTUS 00:00: UNDER THE [place] SOLOSTAR 00 SKIN TWICE Medic al U-100 DAILY Branch INSULIN) 100 unit/mL (3 mL) injection semaglutide 2022-0 Yes [id number] 1mg inject 1 [facility] (OZEMPIC) 1 5-22 mg under ity of mg/dose (4 00:00: the skin [place] mg/3 mL) 00 weekly. Medical PnIj Branch methocarbam 2022-0 Yes [id number] 500mg Take 1 [facility] oL 500 mg 5-22 tablet by ity o f tablet 00:00: mouth 4 00 (four) Medical times Branch daily as needed for Pain (scale 7-10). semaglutide 2022-0 Yes [id number] 1mg inject 1 [facility] (OZEMPIC) 1 5-22 mg under ity of mg/dose (4 00:00: the skin [place] mg/3 mL) 00 weekly. Medical PnIj Branch methocarbam 2022-0 Yes [id number] 500mg Take 1 [facility] oL 500 mg 5-22 tablet by ity o f tablet 00:00: mouth 4 00 (four) Medical times Branch daily as needed for Pain (scale 7-10). semaglutide 2022-0 Yes [id number] 1mg inject 1 [facility] (OZEMPIC) 1 5-22 mg under ity of mg/dose (4 00:00: the skin [place] mg/3 mL) 00 weekly. Medical PnIj Branch methocarbam 2022-0 Yes [id number] 500mg Take 1 [facility] oL 500 mg 5-22 tablet by ity o f tablet 00:00: mouth 4 [place] 00 (four) Medical times Branch daily as needed for Pain (scale 7-10). semaglutide 2022-0 Yes [id number] 1mg inject 1 [facility] (OZEMPIC) 1 5-22 mg under ity of mg/dose (4 00:00: the skin [place] mg/3 mL) 00 weekly. Medical PnIj Branch methocarbam 2022-0 Yes [id number] 500mg Take 1 [facility] oL 500 mg 5-22 tablet by ity o f tablet 00:00: mouth 4 [place] 00 (four) Medical times Branch daily as needed for Pain (scale 7-10). semaglutide 2022-0 Yes [id number] 1mg inject 1 [facility] (OZEMPIC) 1 5-22 mg under ity of mg/dose (4 00:00: the skin [place] mg/3 mL) 00 weekly. Medical PnIj Branch methocarbam 2022-0 Yes [id number] 500mg Take 1 [facility] oL 500 mg 5-22 tablet by ity o f tablet 00:00: mouth 4 [place] 00 (four) Medical times Branch daily as needed for Pain (scale 7-10). semaglutide 2022-0 Yes [id number] 1mg inject 1 [facility] (OZEMPIC) 1 5-22 mg under ity of mg/dose (4 00:00: the skin [place] mg/3 mL) 00 weekly. Medical PnIj Branch methocarbam 3-0 Yes [id number] 500mg Take 1 [facility] oL 500 mg 5-22 tablet by ity o f tablet 00:00: mouth 4 [place] 00 (four) Medical times Branch daily as needed for Pain (scale 7-10). methocarbam 3-0 Yes [id number] 500mg Take 1 [facility] oL 500 mg 5-22 tablet by ity o f tablet 00:00: mouth 4 [place] 00 (four) Medical times Branch daily as needed for Pain (scale 7-10). methocarbam 3-0 Yes [id number] 500mg Take 1 [facility] oL 500 mg 5-22 tablet by ity o f tablet 00:00: mouth (four) Medical times Branch daily as needed for Pain (scale 7-10). methocarbam 2023-0 Yes [id number] 500mg Take 1 [facility] oL 500 mg 5-22 tablet by ity o f tablet 00:00: mouth (four) Medical times Branch daily as needed for Pain (scale 7-10). methocarbam 2023-0 Yes [id number] 500mg Take 1 [facility] oL 500 mg 5-22 tablet by ity o f tablet 00:00: mouth (four) Medical times Branch daily as needed for Pain (scale 7-10). methocarbam 2023-0 Yes [id number] 500mg Take 1 [facility] oL 500 mg 5-22 tablet by ity o f tablet 00:00: mouth (four) Medical times Branch daily as needed for Pain (scale 7-10). methocarbam 2023-0 Yes [id number] 500mg Take 1 [facility] oL 500 mg 5-22 tablet by ity o f tablet 00:00: mouth (four) Medical times Branch daily as needed for Pain (scale 7-10). methocarbam 2023-0 Yes [id number] 500mg Take 1 [facility] oL 500 mg 5-22 tablet by ity o f tablet 00:00: mouth (four) Medical times Branch daily as needed for Pain (scale 7-10). methocarbam 2023-0 Yes [id number] 500mg Take 1 [facility] oL 500 mg 5-22 tablet by ity o f tablet 00:00: mouth (four) Medical times Branch daily as needed for Pain (scale 7-10). methocarbam 2023-0 Yes [id number] 500mg Take 1 [facility] oL 500 mg 5-22 tablet by ity o f tablet 00:00: mouth (four) Medical times Branch daily as needed for Pain (scale 7-10). methocarbam 2023-0 Yes [id number] 500mg Take 1 [facility] oL 500 mg 5-22 tablet by ity o f tablet 00:00: mouth (four) Medical times Branch daily as needed for Pain (scale 7-10). methocarbam 2023-0 Yes [id number] 500mg Take 1 [facility] oL 500 mg - tablet by ity o f tablet 00:00: mouth 4 [place] 00 (four) Medical times [place] daily as needed for Pain (scale 7-10). methocarbam 0 2022- No [id number] 500mg Take 1 [facility] oL 500 mg -16 06-12 tablet by ity of tablet 00:00: 00:00 mouth 4 [place] 00 :00 (four) Medical times [place] daily as needed for Pain (scale 7-10). methocarbam 2022- No [id number] 500mg Take 1 [facility] oL 500 mg -16 06- tablet by ity of tablet 00:00: 00:00 mouth 4 [place] 00 :00 (four) Medical times [place] daily as needed for Pain (scale 7-10). semaglutide 2022- No [id number] 1mg inject 1 Univers (OZEMPIC) 1 5-22 08-22 mg under ity of mg/dose (4 00:00: 00:00 the skin [place] mg/3 mL) 00 :[address] [facility] semaglutide 2022- No [id number] 1mg inject 1 Univers (OZEMPIC) 1 5-22 08-22 mg under ity of mg/dose (4 00:00: 00:00 the skin [place] mg/3 mL) 00 :[address] [facility] Insulin 2022- No [id number] ADMINISTER Univers Glargine 02-13-19 40 UNITS ity of (LANTUS 00:00: 00:[place] SOLOST[place] 00 :00 SKIN TWICE Medic al U-100 DAILY Branch INSULIN) 100 unit/mL (3 mL) injection terconazole 2022- No [id number] 80mg Insert 1 [facility] 80 mg 5-21 05-25 Suppositor ity of vaginal 00:00: 04:59 y into [place] suppository 00 :00 vagina at [facility] bedtime Branch for 3 days. terconazole 2022- No [id number] 80mg Insert 1 [facility] 80 mg 5-21 05-25 Suppositor ity of vaginal 00:00: 04:59 y into [place] suppository 00 :00 vagina at [facility] for 3 days. terconazole 3- No [id number] 80mg Insert 1 [facility] 80 mg 5-21 05-25 Suppositor ity of vaginal 00:00: 04:59 y into [place] suppository 00 :00 vagina at [facility] for 3 days. terconazole 3- No [id number] 80mg Insert 1 [facility] 80 mg 5-21 05-25 Suppositor ity of vaginal 00:00: 04:59 y into [place] suppository 00 :00 vagina at [facility] for 3 days. Insulin Yes [id number] ADMINISTER [facility] Glargine 5-05 30 UNITS ity of (LANTUS 00:00: UNDER THE [place] SOLOSTAR 00 SKIN TWICE Medic al U-100 DAILY Branch INSULIN) 100 unit/mL (3 mL) injection Insulin Yes [id number] ADMINISTER [facility] Glargine 5-05 30 UNITS ity of (LANTUS 00:00: UNDER THE [place] SOLOSTAR 00 SKIN TWICE Medic al U-100 DAILY Branch INSULIN) 100 unit/mL (3 mL) injection Insulin Yes [id number] ADMINISTER [facility] Glargine 5-05 30 UNITS ity of (LANTUS 00:00: UNDER THE [place] SOLOSTAR 00 SKIN TWICE Medic al U-100 DAILY Branch INSULIN) 100 unit/mL (3 mL) injection Insulin Yes [id number] ADMINISTER [facility] Glargine 5-05 30 UNITS ity of (LANTUS 00:00: UNDER THE [place] SOLOSTAR 00 SKIN TWICE Medic al U-100 DAILY Branch INSULIN) 100 unit/mL (3 mL) injection Insulin Yes [id number] ADMINISTER [facility] Glargine 5-05 30 UNITS ity of (LANTUS 00:00: UNDER THE [place] SOLOSTAR 00 SKIN TWICE Medic al U-100 DAILY Branch INSULIN) 100 unit/mL (3 mL) injection Insulin Yes [id number] ADMINISTER [facility] Glargine 5-05 30 UNITS ity of (LANTUS 00:00: UNDER THE [place] SOLOSTAR 00 SKIN TWICE Medic al U-100 DAILY Branch INSULIN) 100 unit/mL (3 mL) injection Insulin Yes [id number] ADMINISTER [facility] Glargine 5-05 30 UNITS ity of (LANTUS 00:00: UNDER THE [place] SOLOSTAR 00 SKIN TWICE Medic al U-100 DAILY Branch INSULIN) 100 unit/mL (3 mL) injection Insulin Yes [id number] ADMINISTER [facility] Glargine 5-05 30 UNITS ity of (L[place]US 00:00: UNDER THE [place] SOLOSTAR 00 SKIN TWICE Medic al U-100 DAILY Branch INSULIN) 100 unit/mL (3 mL) injection Insulin Yes [id number] ADMINISTER [facility] Glargine 5-05 30 UNITS ity of ([place]US 00:00: UNDER THE [place] SOLOSTAR 00 SKIN TWICE Medic al U-100 DAILY Branch INSULIN) 100 unit/mL (3 mL) injection Insulin Yes [id number] ADMINISTER [facility] Glargine 5-05 30 UNITS ity of (LANTUS 00:00: UNDER THE [place] SOLOSTAR 00 SKIN TWICE Medic al U-100 DAILY Branch INSULIN) 100 unit/mL (3 mL) injection Insulin Yes [id number] ADMINISTER [facility] Glargine 5-05 30 UNITS ity of (LANTUS 00:00: UNDER THE [place] SOLOSTAR 00 SKIN TWICE Medic al U-100 DAILY Branch INSULIN) 100 unit/mL (3 mL) injection Insulin 2022- No [id number] ADMINISTER [facility] Glargine 5-05 05-22 30 UNITS ity of (LANTUS 00:00: 00:00 [facility] :00 SKIN TWICE Medic al U-100 DAILY Branch INSULIN) 100 unit/mL (3 mL) injection Insulin 2022- No [id number] ADMINISTER [facility] Glargine 5-05 05-22 30 UNITS ity of (LANTUS 00:00: 00:00 [facility] :00 SKIN TWICE Medic al U-100 DAILY Branch INSULIN) 100 unit/mL (3 mL) injection semaglutide Yes [id number] INJECT Univers (OZEMPIC) 4-20 0.5MG ity of 0.25 mg or 00:00: UNDER THE [place] 0.5 mg(2 00 SKIN EVERY Medic al mg/1.5 mL) WEEK Branch PnIj semaglutide Yes [id number] INJECT Univers (OZEMPIC) 4-20 0.5MG ity of 0.25 mg or 00:00: UNDER THE [place] 0.5 mg(2 00 SKIN EVERY Medic al mg/1.5 mL) WEEK Branch PnIj semaglutide Yes [id number] INJECT Univers (OZEMPIC) 4-20 0.5MG ity of 0.25 mg or 00:00: UNDER THE [place] 0.5 mg(2 00 SKIN EVERY Medic al mg/1.5 mL) WEEK Branch PnIj semaglutide Yes [id number] INJECT Univers (OZEMPIC) 4-20 0.5MG ity of 0.25 mg or 00:00: UNDER THE [place] 0.5 mg(2 00 SKIN EVERY Medic al mg/1.5 mL) WEEK Branch PnIj semaglutide Yes [id number] INJECT Univers (OZEMPIC) 4-20 0.5MG ity of 0.25 mg or 00:00: UNDER THE [place] 0.5 mg(2 00 SKIN EVERY Medic al mg/1.5 mL) WEEK Branch PnIj semaglutide Yes [id number] INJECT Univers (OZEMPIC) 4-20 0.5MG ity of 0.25 mg or 00:00: UNDER THE [place] 0.5 mg(2 00 SKIN EVERY Medic al mg/1.5 mL) WEEK Branch PnIj semaglutide Yes [id number] INJECT Univers (OZEMPIC) 4-20 0.5MG ity of 0.25 mg or 00:00: UNDER THE [place] 0.5 mg(2 00 SKIN EVERY Medic al mg/1.5 mL) WEEK Branch PnIj semaglutide Yes [id number] INJECT [facility] (OZEMPIC) 4-20 0.5MG ity of 0.25 mg or 00:00: UNDER THE [place] 0.5 mg(2 00 SKIN EVERY Medic al mg/1.5 mL) WEEK Branch PnIj semaglutide Yes [id number] INJECT Univers (OZEMPIC) 4-20 0.5MG ity of 0.25 mg or 00:00: UNDER THE [place] 0.5 mg(2 00 SKIN EVERY Medic al mg/1.5 mL) WEEK Branch PnIj semaglutide Yes [id number] INJECT Univers (OZEMPIC) 4-20 0.5MG ity of 0.25 mg or 00:00: UNDER THE [place] 0.5 mg(2 00 SKIN EVERY Medic al mg/1.5 mL) WEEK Branch PnIj semaglutide Yes [id number] INJECT Univers (OZEMPIC) 4-20 0.5MG ity of 0.25 mg or 00:00: UNDER THE [place] 0.5 mg(2 00 SKIN EVERY Medic al mg/1.5 mL) WEEK Branch PnIj semaglutide Yes [id number] INJECT Univers (OZEMPIC) 4-20 0.5MG ity of 0.25 mg or 00:00: UNDER THE [place] 0.5 mg(2 00 SKIN EVERY Medic al mg/1.5 mL) WEEK Branch PnIj semaglutide Yes [id number] INJECT [facility] (OZEMPIC) 4-20 0.5MG ity of 0.25 mg or 00:00: UNDER THE [place] 0.5 mg(2 00 SKIN EVERY Medic al mg/1.5 mL) WEEK Branch PnIj semaglutide Yes [id number] INJECT [facility] (OZEMPIC) 4-20 0.5MG ity of 0.25 mg or 00:00: UNDER THE [place] 0.5 mg(2 00 SKIN EVERY Medic al mg/1.5 mL) WEEK Branch PnIj semaglutide 2022- No [id number] INJECT Univers (OZEMPIC) 4-20 05-22 0.5MG ity of 0.25 mg or 00:00: 00:00 UNDER THE [place] 0.5 mg(2 00 :00 SKIN EVERY Medic al mg/1.5 mL) WEEK Branch PnIj semaglutide 2022- No [id number] INJECT Univers (OZEMPIC) 4-20 05-22 0.5MG ity of 0.25 mg or 00:00: 00:00 UNDER THE [place] 0.5 mg(2 00 :00 SKIN EVERY Medic al mg/1.5 mL) WEEK Branch PnAbram lactated Yes 1000mL at 75 Univer s ringers IV 4-19 mL/hr, ity of infusion 17:15: 1,000 [place] 1,000 mL 00 IV Medical Infusion, Branch CONTINUOUS , Starting on Mon01/11/23 at 1215, Until Discontinu ed, Routine, PACU lactated 2022-2022- No 1000mL at 75 Unive rs ringers IV 01-11 04-19 mL/hr, ity of infusion 17:15: 19:40 1,000 mL, [place] 1,000 mL 00 :42 IV Medical Infusion, Branch CONTINUOUS , Starting on Mon01/11/23 at 1215, Until Mon01/11/23 at 1440, Routine, PACU ondansetron 2022-0 Yes 4mg 4 mg, Slow Univers (ZOFRAN 4-19 IV Push, ity of (PF)) 17:12: PRN, 1 [place] injection 4 05 dose, Medical mg Starting Branch on Mon01/11/23 at 1212, Until Discontinu ed, Routine, Nausea and Vomiting (N/V), PACU ondansetron 2022-0 2022- No 4mg 4 mg, Slow Univers (ZOFRAN - 04-19 IV Push, ity of (PF)) 17:12: 19:40 PRN, 1 [place] injection 4 05 :42 dose, Medical mg Starting Branch on Mon01/11/23 at 1212, Until Mon01/11/23 at 1440, Routine, Nausea and Vomiting (N/V), PACU simethicone 2022-0 2022- No PRN, Unive rs (GAS RELIEF 01-11 Starting ity of (SIMETHICON 16:28: 17:10 on [...] 1000mL at 42 Unive rs ringers IV 4-19 04-19 mL/hr, ity of infusion 14:30: 14:40 1,000 mL, [place] 1,000 mL 00 :00 IV Medical Infusion, Branch ONCE, 1 dose, On Mon01/11/23 at 0930, Routine, Endo Pre-op linaCLOtide 2023-0 2023- No [id number] 145ug Take 1 Univers (LINZESS) 4-17 05-18 capsule by ity of 145 mcg 00:00: 04:59 mouth in [place] capsule 00 :00 the Medical morning [place] for 30 days. linaCLOtide 2023-0 2023- No [id number] 145ug Take 1 Univers (LINZESS) 4-17 05-18 capsule by ity of 145 mcg 00:00: 04:59 mouth in [place] capsule 00 :00 the [facility] morning [place] for 30 days. linaCLOtide 2023-0 2023- No [id number] 145ug Take 1 Univers (LINZESS) 4-17 05-18 capsule by ity of 145 mcg 00:00: 04:59 mouth in [place] capsule 00 :00 the [facility] morning [place] for 30 days. linaCLOtide 2023-0 2023- No [id number] 145ug Take 1 Univers (LINZESS) 4-17 05-18 capsule by ity of 145 mcg 00:00: 04:59 mouth in [place] capsule 00 :00 the [facility] morning Branch for 30 days. linaCLOtide 2023-0 2023- No [id number] 145ug Take 1 Univers (LINZESS) 4-17 05-18 capsule by ity of 145 mcg 00:00: 04:59 mouth in [place] capsule 00 :00 the [facility] morning Branch for 30 days. linaCLOtide 2023-0 2023- No [id number] 145ug Take 1 Univers (LINZESS) 4-17 05-18 capsule by ity of 145 mcg 00:00: 04:59 mouth in [place] capsule 00 :00 the Medical morning Branch for 30 days. linaCLOtide 2023-0 2023- No [id number] 145ug Take 1 Univers (LINZESS) 4-17 05-18 capsule by ity of 145 mcg 00:00: 04:59 mouth in [place] capsule 00 :00 the Medical morning Branch for 30 days. linaCLOtide 2023-0 2023- No [id number] 145ug Take 1 Univers (LINZESS) 4-17 05-18 capsule by ity of 145 mcg 00:00: 04:59 mouth in [place] capsule 00 :00 the [facility] morning Branch for 30 days. linaCLOtide 0 2023- No [id number] 145ug Take 1 Univers (LINZESS) 4-17 05-18 capsule by ity of 145 mcg 00:00: 04:59 mouth in [place] capsule 00 :00 the [facility] morning [place] for 30 days. linaCLOtide 2022-0 2023- No [id number] 145ug Take 1 Univers (LINZESS) 4- 05-18 capsule by ity of 145 mcg 00:00: 04:59 mouth in [place] capsule 00 :00 the [facility] morning [place] for 30 days. linaCLOtide 2022-0 2023- No [id number] 145ug Take 1 Univers (LINZESS) 4-08 02-18 capsule by ity of 145 mcg 00:00: 04:59 mouth in [place] capsule 00 :00 the [facility] for 30 days. linaCLOtide 2023- No [id number] 145ug Take 1 Univers (LINZESS) 4-08 02-18 capsule by ity of 145 mcg 00:00: 04:59 mouth in [place] capsule 00 :00 the [facility] for 30 days. linaCLOtide 2022-0 3- No [id number] 145ug Take 1 Univers (LINZESS) 4-08 02-18 capsule by ity of 145 mcg 00:00: 04:59 mouth in [place] capsule 00 :00 the [facility] for 30 days. linaCLOtide 2023- No [id number] 145ug Take 1 Univers (LINZESS) 4-08 02-18 capsule by ity of 145 mcg 00:00: 04:59 mouth in [place] capsule 00 :00 the [facility] for 30 days. linaCLOtide 0 3- No [id number] 145ug Take 1 Univers (LINZESS) 4-17 05-18 capsule by ity of 145 mcg 00:00: 04:59 mouth in [place] capsule 00 :00 the [facility] for 30 days. Insulin Yes [id number] ADMINISTER Univers Glargine 3-27 36 UNITS ity of (LANTUS 00:00: UNDER THE [place] SOLOSTAR 00 SKIN TWICE Medic al U-100 DAILY Branch INSULIN) 100 unit/mL (3 mL) injection Insulin Yes [id number] ADMINISTER [facility] Glargine 3-27 36 UNITS ity of (LANTUS 00:00: UNDER THE [place] SOLOSTAR 00 SKIN TWICE Medic al U-100 DAILY Branch INSULIN) 100 unit/mL (3 mL) injection Insulin Yes [id number] ADMINISTER [facility] Glargine 3-27 36 UNITS ity of (LANTUS 00:00: UNDER THE [place] SOLOSTAR 00 SKIN TWICE Medic al U-100 DAILY Branch INSULIN) 100 unit/mL (3 mL) injection Insulin Yes [id number] ADMINISTER [facility] Glargine 3-27 36 UNITS ity of (LANTUS 00:00: UNDER THE [place] SOLOSTAR 00 SKIN TWICE Medic al U-100 DAILY Branch INSULIN) 100 unit/mL (3 mL) injection Insulin Yes [id number] ADMINISTER [facility] Glargine 3-27 36 UNITS ity of (LANTUS 00:00: UNDER THE [place] SOLOSTAR 00 SKIN TWICE Medic al U-100 DAILY Branch INSULIN) 100 unit/mL (3 mL) injection Insulin Yes [id number] ADMINISTER [facility] Glargine 3-27 36 UNITS ity of (LANTUS 00:00: UNDER THE [place] SOLOSTAR 00 SKIN TWICE Medic al U-100 DAILY Branch INSULIN) 100 unit/mL (3 mL) injection Insulin Yes [id number] ADMINISTER [facility] Glargine 3-27 36 UNITS ity of (LANTUS 00:00: UNDER THE [place] SOLOSTAR 00 SKIN TWICE Medic al U-100 DAILY Branch INSULIN) 100 unit/mL (3 mL) injection Insulin 2022- No [id number] ADMINISTER [facility] Glargine 3-27 05-05 36 UNITS ity of (LANTUS 00:00: 00:00 UND[place] THE [place] 00 :00 SKIN TWICE Medic al U-100 DAILY Branch INSULIN) 100 unit/mL (3 mL) injection Insulin 2022- No [id number] ADMINISTER [facility] Glargine 3-27 05-05 36 UNITS ity of (LANTUS 00:00: 00:00 UNDER THE [place] SOLOSTAR 00 :00 SKIN TWICE Medic al U-100 DAILY Branch INSULIN) 100 unit/mL (3 mL) injection methylPREDN 2023-0 Yes [id number] Take by [facility] ISolone 4 3-17 mouth ity of mg tablets 00:00: SEE-INSTRU [place] 00 CTIONS. Medical follow Branch package directions methylPREDN 2023-0 Yes [id number] Take by [facility] ISolone 4 3-17 mouth ity of mg tablets 00:00: SEE-INSTRU [place] 00 CTIONS. Medical follow Branch package directions methylPREDN 2023-0 Yes [id number] Take by [facility] ISolone 4 3-17 mouth ity of mg tablets 00:00: SEE-INSTRU [place] 00 CTIONS. Medical follow Branch package directions methylPREDN 2023-0 Yes [id number] Take by [facility] ISolone 4 3-17 mouth ity of mg tablets 00:00: SEE-INSTRU [place] 00 CTIONS. Medical follow Branch package directions methylPREDN 2023-0 Yes [id number] Take by [facility] ISolone 4 3-17 mouth ity of mg tablets 00:00: [place]-INSTRU [place] 00 CTIONS. Medical follow Branch package directions methylPREDN 2023-0 Yes [id number] Take by [facility] ISolone 4 3-17 mouth ity of mg tablets 00:00: SEE-INSTRU [place] 00 CTIONS. Medical follow Branch package directions methylPREDN 2023-0 Yes [id number] Take by [facility] ISolone 4 3-17 mouth ity of mg tablets 00:00: SEE-INSTRU [place] 00 CTIONS. Medical follow Branch package directions methylPREDN 2023-0 Yes [id number] Take by [facility] ISolone 4 3-17 mouth ity of mg tablets 00:00: SEE-INSTRU [place] 00 CTIONS. Medical follow Branch package directions methylPREDN 2023-0 Yes [id number] Take by [facility] ISolone 4 3-17 mouth ity of mg tablets 00:00: SEE-INSTRU [place] 00 CTIONS. Medical follow Branch package directions methylPREDN 2023-0 Yes [id number] Take by [facility] ISolone 4 3-17 mouth ity of mg tablets 00:00: SEE-INSTRU [place] 00 CTIONS. Medical follow Branch package directions methylPREDN 2023-0 Yes [id number] Take by [facility] ISolone 4 3-17 mouth ity of mg tablets 00:00: SEE-INSTRU [place] 00 CTIONS. Medical follow Branch package directions methylPREDN 2023-0 Yes [id number] Take by [facility] ISolone 4 3-17 mouth ity of mg tablets 00:00: SEE-INSTRU [place] 00 CTIONS. Medical follow Branch package directions methylPREDN 2023-0 Yes [id number] Take by [facility] ISolone 4 3-17 mouth ity of mg tablets 00:00: SEE-INSTRU [place] 00 CTIONS. Medical follow Branch package directions methylPREDN 2023-0 Yes [id number] Take by [facility] ISolone 4 3-17 mouth ity of mg tablets 00:00: SEE-INSTRU [place] 00 CTIONS. Medical follow Branch package directions methylPREDN 2023-0 Yes [id number] Take by [facility] ISolone 4 3-17 mouth ity of mg tablets 00:00: SEE-INSTRU [place] 00 CTIONS. Medical follow Branch package directions methylPREDN 2023-0 Yes [id number] Take by [facility] ISolone 4 3-17 mouth ity of mg tablets 00:00: SEE-INSTRU [place] 00 CTIONS. Medical follow Branch package directions methylPREDN 2023-0 Yes [id number] Take by [facility] ISolone 4 3-17 mouth ity of mg tablets 00:00: SEE-INSTRU [place] 00 CTIONS. Medical follow Branch package directions methylPREDN 2023-0 Yes [id number] Take by [facility] ISolone 4 3-17 mouth ity of mg tablets 00:00: SEE-INSTRU [place] 00 CTIONS. Medical follow Branch package directions methylPREDN 2023-0 Yes [id number] Take by [facility] ISolone 4 3-17 mouth ity of mg tablets 00:00: SEE-INSTRU [place] 00 CTIONS. Medical follow Branch package directions methylPREDN 2023-0 Yes [id number] Take by [facility] ISolone 4 3-17 mouth ity of mg tablets 00:00: SEE-INSTRU [place] 00 CTIONS. Medical follow Branch package directions methylPREDN 2023-0 Yes [id number] Take by [facility] ISolone 4 3-17 mouth ity of mg tablets 00:00: SEE-INSTRU [place] 00 CTIONS. Medical follow Branch package directions methylPREDN 2023-0 Yes [id number] Take by [facility] ISolone 4 3-17 mouth ity of mg tablets 00:00: SEE-INSTRU [place] 00 CTIONS. Medical follow Branch package directions methylPREDN 2022- No [id number] Take by [facility] 05-22 mouth ity of mg tablets 00:00: 00:00 SEE-INSTRU [place] 00 :00 CTIONS. Medical follow Branch package directions methylPREDN 2022- No [id number] Take by [facility] ISolone 4 3-17 05-22 mouth ity of mg tablets 00:00: 00:00 SEE-INSTRU [place] 00 :00 CTIONS. Medical follow Branch package directions acetaminoph 2022- No 1{tbl} 1 tablet, [facility] en-codeine 12-08 Oral, ity of (TYLENOL 22:45: 22:34 ONCE, 1 [place] #3) 300-30 00 :00 dose, On Medic al mg tablet 1 [place] Branch tablet 12/08/22 at 1745, KRAIG dexamethaso 2022- No 10mg 10 mg, [facility] 12-08 Intramuscu ity of (DECADRON 21:30: 21:30 lar, ONCE, [place] PHOSPHATE) 00 :00 1 dose, On Med ical injection [place] Branch 10 mg 12/08/22 at 1630, Routine oxymetazoli 2022- No 1{spray 1 [place], [facility] ne 12-08 } Nasal, ity of (OXYMETAZOL 20:45: 20:36 ONCE, 1 [place] HCL) 00 :00 dose, On Medical 0.05 % Karen Branch nasal spray 12/08/22 at 1 [place] 1545, KRAIG acetaminoph Yes [id number] 1{tbl} Take [...] Indication s: acute pain cefdinir 2022- No [id number] 300mg Take 1 U nivers 300 mg 3-16 03-24 capsule by ity of capsule 00:00: 04:59 mouth [place] 00 :00 every 12 Medical (twelve) Branch hours for 7 days. cefdinir 2022-2022- No [id number] 300mg Take 1 U nivers 300 mg 3-16 03-24 capsule by ity of capsule 00:00: 04:59 mouth [place] 00 :00 every 12 Medical (twelve) Branch hours for 7 days. iron 2022- No [id number] 300mg 300 mg, IV [facility] sucrose 11-15 Infusion, ity of (VENOFER) 19:15: 21:38 ONCE, [place] 300 mg in 00 :00 Administer Medi enrique NaCl 0.9% over 2.5 Branch (NS) 250 mL Hours, On infusion Mon11/15/22 at 1315, For 1 dose
Pa tient to receive Venofer 300 mg in 250 NacL infusion over 2.5 hours. First, test dose of &a mp;nbsp;Ve nofer (25 mg = 20 ml) & nbsp;as ordered by to run in over 20 min.
acetaminoph 3- No 1000mg 1,000 mg, Univers en 11-15 Oral, ity of (TYLENOL) 04:45: 03:54 ONCE, [place] tablet 00 :00 dose, On Medical 1,000 mg Mon Branch 11/14/22 at 2245, KRAIG linaCLOtide 2022-0 2023- No [id number] 145ug Take 1 Univers (LINZESS) 11-10 capsule by ity of 145 mcg 00:00: 04:59 mouth in [place] capsule 00 :00 the [facility] morning Branch for 30 days. linaCLOtide 2022-0 2023- No [id number] 145ug Take 1 Univers (LINZESS) 11-10 capsule by ity of 145 mcg 00:00: 04:59 mouth in [place] capsule 00 :00 the [facility] morning Branch for 30 days. linaCLOtide 2022-0 2023- No [id number] 145ug Take 1 Univers (LINZESS) 11-10 capsule by ity of 145 mcg 00:00: 04:59 mouth in [place] capsule 00 :00 the [facility] morning Branch for 30 days. linaCLOtide 3-0 2023- No [id number] 145ug Take 1 Univers (LINZESS) 11-10 capsule by ity of 145 mcg 00:00: 04:59 mouth in [place] capsule 00 :00 the [facility] morning Branch for 30 days. linaCLOtide 3-0 2023- No [id number] 145ug Take 1 Univers (LINZESS) 11-10 capsule by ity of 145 mcg 00:00: 04:59 mouth in [place] capsule 00 :00 the Medical morning Branch for 30 days. linaCLOtide 2023-0 2023- No [id number] 145ug Take 1 Univers (LINZESS) 11-10 capsule by ity of 145 mcg 00:00: 04:59 mouth in [place] capsule 00 :00 the Medical morning Branch for 30 days. linaCLOtide 2023-0 2023- No [id number] 145ug Take 1 Univers (LINZESS) 11-10 capsule by ity of 145 mcg 00:00: 04:59 mouth in [place] capsule 00 :00 the Medical morning Branch for 30 days. linaCLOtide 2023-0 2023- No [id number] 145ug Take 1 Univers (LINZESS) 2-08 12-25 capsule by ity of 145 mcg 00:00: 04:59 mouth in [place] capsule 00 :00 the Medical morning Branch for 30 days. linaCLOtide 2023-0 2023- No [id number] 145ug Take 1 Univers (LINZESS) 2-08 12-25 capsule by ity of 145 mcg 00:00: 04:59 mouth in [place] capsule 00 :00 the Medical morning Branch for 30 days. linaCLOtide 2023-0 2023- No [id number] 145ug Take 1 Univers (LINZESS) 2-08 12- capsule by ity of 145 mcg 00:00: 04:59 mouth in [place] capsule 00 :00 the Medical morning Branch for 30 days. linaCLOtide 2023-0 2023- No [id number] 145ug Take 1 Univers (LINZESS) 2- capsule by ity of 145 mcg 00:00: 04:59 mouth in [place] capsule 00 :00 the Medical morning Branch for 30 days. linaCLOtide 3-0 2023- No [id number] 145ug Take 1 Univers (LINZESS) 212-17 capsule by ity of 145 mcg 00:00: 04:59 mouth in [place] capsule 00 :00 the Medical morning Branch for 30 days. linaCLOtide 3-0 2023- No [id number] 145ug Take 1 Univers (LINZESS) 2- capsule by ity of 145 mcg 00:00: 04:59 mouth in [place] capsule 00 :00 the Medical morning Branch for 30 days. linaCLOtide 2023-0 2023- No [id number] 145ug Take 1 Univers (LINZESS) 2-08 12-24 capsule by ity of 145 mcg 00:00: 04:59 mouth in [place] capsule 00 :00 the Medical morning Branch for 30 days. linaCLOtide 2023-0 2023- No [id number] 145ug Take 1 Univers (LINZESS) 2-08 12-19 capsule by ity of 145 mcg 00:00: 04:59 mouth in [place] capsule 00 :00 the Medical morning Branch for 30 days. peg-electro 202-0 2023- No [id number] 4000mL Take 4,000 Univers lyte soln 2-16 02-17 mL by ity of (GOLYTELY) 00:00: 05:59 mouth once [place] 236-22.74-6 00 :00 now for 1 Med ical .74 -5.86 dose. Branch gram solution peg-electro 0 2022- No [id number] 4000mL Take 4,000 Univers lyte soln 2-16 02-17 mL by ity of (GOLYTELY) 00:00: 05:59 mouth once [place] 236-22.74-6 00 :00 now for 1 Med ical .74 -5.86 dose. Branch gram solution peg-electro 0 2022- No [id number] 4000mL Take 4,000 Univers lyte soln 2-16 02-17 mL by ity of (GOLYTELY) 00:00: 05:59 mouth once [place] 236-22.74-6 00 :00 now for 1 Med ical .74 -5.86 dose. Branch gram solution Insulin 0 Yes [id number] ADMINISTER Univers Glargine 2-10 36 UNITS ity of (LANTUS 00:00: UNDER THE [place] SOLOSTAR 00 SKIN TWICE Medic al U-100 DAILY Branch INSULIN) 100 unit/mL (3 mL) injection Insulin 0 Yes [id number] ADMINISTER Univers Glargine 2-10 36 UNITS ity of (LANTUS 00:00: UNDER THE [place] SOLOSTAR 00 SKIN TWICE Medic al U-100 DAILY Branch INSULIN) 100 unit/mL (3 mL) injection Insulin 0 Yes [id number] ADMINISTER Univers Glargine 2-10 36 UNITS ity of (LANTUS 00:00: UNDER THE [place] SOLOSTAR 00 SKIN TWICE Medic al U-100 DAILY Branch INSULIN) 100 unit/mL (3 mL) injection Insulin 0 Yes [id number] ADMINISTER Univers Glargine 2-10 36 UNITS ity of (LANTUS 00:00: UNDER THE [place] SOLOSTAR 00 SKIN TWICE Medic al U-100 DAILY Branch INSULIN) 100 unit/mL (3 mL) injection Insulin 0 Yes [id number] ADMINISTER Univers Glargine 2-10 36 UNITS ity of (LANTUS 00:00: UNDER THE [place] SOLOSTAR 00 SKIN TWICE Medic al U-100 DAILY Branch INSULIN) 100 unit/mL (3 mL) injection Insulin Yes [id number] ADMINISTER Univers Glargine 2-10 36 UNITS ity of (LANTUS 00:00: UNDER THE [place] SOLOSTAR 00 SKIN TWICE Medic al U-100 DAILY Branch INSULIN) 100 unit/mL (3 mL) injection Insulin Yes [id number] ADMINISTER Univers Glargine 2-10 36 UNITS ity of (LANTUS 00:00: UNDER THE [place] SOLOSTAR 00 SKIN TWICE Medic al U-100 DAILY Branch INSULIN) 100 unit/mL (3 mL) injection Insulin Yes [id number] ADMINISTER Univers Glargine 2-10 36 UNITS ity of (LANTUS 00:00: UNDER THE [place] SOLOSTAR 00 SKIN TWICE Medic al U-100 DAILY Branch INSULIN) 100 unit/mL (3 mL) injection Insulin Yes [id number] ADMINISTER Univers Glargine 2-10 36 UNITS ity of (LANTUS 00:00: UNDER THE [place] SOLOSTAR 00 SKIN TWICE Medic al U-100 DAILY Branch INSULIN) 100 unit/mL (3 mL) injection Insulin Yes [id number] ADMINISTER Univers Glargine 2-10 36 UNITS ity of (LANTUS 00:00: UNDER THE [place] SOLOSTAR 00 SKIN TWICE Medic al U-100 DAILY Branch INSULIN) 100 unit/mL (3 mL) injection Insulin Yes [id number] ADMINISTER Univers Glargine 2-10 36 UNITS ity of (LANTUS 00:00: UNDER THE [place] SOLOSTAR 00 SKIN TWICE Medic al U-100 DAILY Branch INSULIN) 100 unit/mL (3 mL) injection Insulin Yes [id number] ADMINISTER Univers Glargine 2-10 36 UNITS ity of (LANTUS 00:00: UNDER THE [place] SOLOSTAR 00 SKIN TWICE Medic al U-100 DAILY Branch INSULIN) 100 unit/mL (3 mL) injection Insulin Yes [id number] ADMINISTER Univers Glargine 2-10 36 UNITS ity of (LANTUS 00:00: UNDER THE [place] SOLOSTAR 00 SKIN TWICE Medic al U-100 DAILY Branch INSULIN) 100 unit/mL (3 mL) injection Insulin Yes [id number] ADMINISTER Univers Glargine 2-10 36 UNITS ity of (LANTUS 00:00: UNDER THE [place] SOLOSTAR 00 SKIN TWICE Medic al U-100 DAILY Branch INSULIN) 100 unit/mL (3 mL) injection Insulin Yes [id number] ADMINISTER Univers Glargine 2-10 36 UNITS ity of (LANTUS 00:00: UNDER THE [place] SOLOSTAR 00 SKIN TWICE Medic al U-100 DAILY Branch INSULIN) 100 unit/mL (3 mL) injection Insulin Yes [id number] ADMINISTER Univers Glargine 2-10 36 UNITS ity of (LANTUS 00:00: UNDER THE [place] SOLOSTAR 00 SKIN TWICE Medic al U-100 DAILY Branch INSULIN) 100 unit/mL (3 mL) injection Insulin Yes [id number] ADMINISTER Univers Glargine 2-10 36 UNITS ity of (LANTUS 00:00: UNDER THE [place] SOLOSTAR 00 SKIN TWICE Medic al U-100 DAILY Branch INSULIN) 100 unit/mL (3 mL) injection Insulin 2022- No [id number] ADMINISTER Univers Glargine 2-10 -27 36 UNITS ity of (LANTUS 00:00: 00:00 [facility] :[facility] SKIN TWICE Medic al U-100 DAILY Branch INSULIN) 100 unit/mL (3 mL) injection Insulin 2022- No [id number] ADMINISTER Univers Glargine 2-10 03-27 36 UNITS ity of (LANTUS 00:00: 00:00 [facility] :00 SKIN TWICE Medic al U-100 DAILY Branch INSULIN) 100 unit/mL (3 mL) injection ferrous 2022-0 Yes [id number] 324mg Take 1 Un pippa sulfate 324 1-20 tablet by ity of mg (65 mg 00:00: mouth [place] iron) EC 00 daily with Medic al tablet breakfast. Branch ferrous 0 Yes [id number] 324mg Take 1 Un pippa sulfate 324 1-20 tablet by ity of mg (65 mg 00:00: mouth [place] iron) EC 00 daily with Medic al tablet breakfast. Branch ferrous 2022-0 Yes [id number] 324mg Take 1 Un pippa sulfate 324 1-20 tablet by ity of mg (65 mg 00:00: mouth [place] iron) EC 00 daily with Medic al tablet breakfast. Branch ferrous 2022-0 Yes [id number] 324mg Take 1 Un pippa sulfate 324 1-20 tablet by ity of mg (65 mg 00:00: mouth [place] iron) EC 00 daily with Medic al tablet breakfast. Branch ferrous 2022-0 Yes [id number] 324mg Take 1 Un pippa sulfate 324 1-20 tablet by ity of mg (65 mg 00:00: mouth [place] iron) EC 00 daily with Medic al tablet breakfast. Branch ferrous 2022-0 Yes [id number] 324mg Take 1 Un pippa sulfate 324 1-20 tablet by ity of mg (65 mg 00:00: mouth [place] iron) EC 00 daily with Medic al tablet breakfast. Branch ferrous 2022-0 Yes [id number] 324mg Take 1 Un pippa sulfate 324 1-20 tablet by ity of mg (65 mg 00:00: mouth [place] iron) EC 00 daily with Medic al tablet breakfast. Branch ferrous 2022-0 Yes [id number] 324mg Take 1 Un pippa sulfate 324 1-20 tablet by ity of mg (65 mg 00:00: mouth [place] iron) EC 00 daily with Medic al tablet breakfast. Branch ferrous 2022-0 Yes [id number] 324mg Take 1 Un pippa sulfate 324 1-20 tablet by ity of mg (65 mg 00:00: mouth [place] iron) EC 00 daily with Medic al tablet breakfast. Branch ferrous 2022-0 Yes [id number] 324mg Take 1 Un pippa sulfate 324 1-20 tablet by ity of mg (65 mg 00:00: mouth [place] iron) EC 00 daily with Medic al tablet breakfast. Branch ferrous 3-0 Yes [id number] 324mg Take 1 Un pippa sulfate 324 1-20 tablet by ity of mg (65 mg 00:00: mouth [place] iron) EC 00 daily with Medic al tablet breakfast. Branch ferrous 3-0 Yes [id number] 324mg Take 1 Un pippa sulfate 324 1-20 tablet by ity of mg (65 mg 00:00: mouth [place] iron) EC 00 daily with Medic al tablet breakfast. Branch ferrous 3-0 Yes [id number] 324mg Take 1 Un pippa sulfate 324 1-20 tablet by ity of mg (65 mg 00:00: mouth [place] iron) EC 00 daily with Medic al tablet breakfast. Branch ferrous 3-0 Yes [id number] 324mg Take 1 Un pippa sulfate 324 1-20 tablet by ity of mg (65 mg 00:00: mouth [place] iron) EC 00 daily with Medic al tablet breakfast. Branch ferrous 3-0 Yes [id number] 324mg Take 1 Un pippa sulfate 324 1-20 tablet by ity of mg (65 mg 00:00: mouth [place] iron) EC 00 daily with Medic al tablet breakfast. Branch ferrous 3-0 Yes [id number] 324mg Take 1 Un pippa sulfate 324 1-20 tablet by ity of mg (65 mg 00:00: mouth [place] iron) EC 00 daily with Medic al tablet breakfast. Branch ferrous 3-0 Yes [id number] 324mg Take 1 Un pippa sulfate 324 1-20 tablet by ity of mg (65 mg 00:00: mouth [place] iron) EC 00 daily with Medic al tablet breakfast. Branch ferrous 3-0 Yes [id number] 324mg Take 1 Un pippa sulfate 324 1-20 tablet by ity of mg (65 mg 00:00: mouth [place] iron) EC 00 daily with Medic al tablet breakfast. Branch ferrous 3-0 Yes [id number] 324mg Take 1 Un pippa sulfate 324 1-20 tablet by ity of mg (65 mg 00:00: mouth [place] iron) EC 00 daily with Medic al tablet breakfast. Branch ferrous 3-0 Yes [id number] 324mg Take 1 Un pippa sulfate 324 1-20 tablet by ity of mg (65 mg 00:00: mouth [place] iron) EC 00 daily with Medic al tablet breakfast. Branch ferrous 3-0 Yes [id number] 324mg Take 1 Un pippa sulfate 324 1-20 tablet by ity of mg (65 mg 00:00: mouth [place] iron) EC 00 daily with Medic al tablet breakfast. Branch ferrous 3-0 Yes [id number] 324mg Take 1 Un pippa sulfate 324 1-20 tablet by ity of mg (65 mg 00:00: mouth [place] iron) EC 00 daily with Medic al tablet breakfast. Branch ferrous 3-0 Yes [id number] 324mg Take 1 Un pippa sulfate 324 1-20 tablet by ity of mg (65 mg 00:00: mouth [place] iron) EC 00 daily with Medic al tablet breakfast. Branch ferrous 3-0 Yes [id number] 324mg Take 1 Un pippa sulfate 324 1-20 tablet by ity of mg (65 mg 00:00: mouth [place] iron) EC 00 daily with Medic al tablet breakfast. Branch ferrous 3-0 Yes [id number] 324mg Take 1 Un pippa sulfate 324 1-20 tablet by ity of mg (65 mg 00:00: mouth [place] iron) EC 00 daily with Medic al tablet breakfast. Branch ferrous 3-0 Yes [id number] 324mg Take 1 Un pippa sulfate 324 1-20 tablet by ity of mg (65 mg 00:00: mouth [place] iron) EC 00 daily with Medic al tablet breakfast. Branch ferrous 3-0 Yes [id number] 324mg Take 1 Un pippa sulfate 324 1-20 tablet by ity of mg (65 mg 00:00: mouth [place] iron) EC 00 daily with Medic al tablet breakfast. Branch ferrous 3-0 Yes [id number] 324mg Take 1 Un pippa sulfate 324 1-20 tablet by ity of mg (65 mg 00:00: mouth [place] iron) EC 00 daily with Medic al tablet breakfast. Branch ferrous 3-0 Yes [id number] 324mg Take 1 Un pippa sulfate 324 1-20 tablet by ity of mg (65 mg 00:00: mouth [place] iron) EC 00 daily with Medic al tablet breakfast. Branch ferrous 3-0 Yes [id number] 324mg Take 1 Un pippa sulfate 324 1-20 tablet by ity of mg (65 mg 00:00: mouth [place] iron) EC 00 daily with Medic al tablet breakfast. Branch ferrous 3-0 Yes [id number] 324mg Take 1 Un pippa sulfate 324 1-20 tablet by ity of mg (65 mg 00:00: mouth [place] iron) EC 00 daily with Medic al tablet breakfast. Branch ferrous 3-0 Yes [id number] 324mg Take 1 Un pippa sulfate 324 1-20 tablet by ity of mg (65 mg 00:00: mouth [place] iron) EC 00 daily with Medic al tablet breakfast. Branch ferrous 3-0 Yes [id number] 324mg Take 1 Un pippa sulfate 324 1-20 tablet by ity of mg (65 mg 00:00: mouth [place] iron) EC 00 daily with Medic al tablet breakfast. Branch ferrous 3-0 Yes [id number] 324mg Take 1 Un pippa sulfate 324 1-20 tablet by ity of mg (65 mg 00:00: mouth [place] iron) EC 00 daily with Medic al tablet breakfast. Branch ferrous 2022-0 Yes [id number] 324mg Take 1 Un pippa sulfate 324 1-20 tablet by ity of mg (65 mg 00:00: mouth [place] iron) EC 00 daily with Medic al tablet breakfast. Branch ferrous 2022-0 Yes [id number] 324mg Take 1 Un pippa sulfate 324 1-20 tablet by ity of mg (65 mg 00:00: mouth [place] iron) EC 00 daily with Medic al tablet breakfast. Branch ferrous 2022-0 Yes [id number] 324mg Take 1 Un pippa sulfate 324 1-20 tablet by ity of mg (65 mg 00:00: mouth [place] iron) EC 00 daily with Medic al tablet breakfast. Branch ferrous 2022-0 Yes [id number] 324mg Take 1 Un pippa sulfate 324 1-20 tablet by ity of mg (65 mg 00:00: mouth [place] iron) EC 00 daily with Medic al tablet breakfast. Branch ferrous 2022-0 Yes [id number] 324mg Take 1 Un pippa sulfate 324 1-20 tablet by ity of mg (65 mg 00:00: mouth [place] iron) EC 00 daily with Medic al tablet breakfast. Branch ferrous 2022-0 Yes [id number] 324mg Take 1 Un pippa sulfate 324 1-20 tablet by ity of mg (65 mg 00:00: mouth [place] iron) EC 00 daily with Medic al tablet breakfast. Branch ferrous 2022-0 Yes [id number] 324mg Take 1 Un pippa sulfate 324 1-20 tablet by ity of mg (65 mg 00:00: mouth [place] iron) EC 00 daily with Medic al tablet breakfast. Branch ferrous 2022-0 Yes [id number] 324mg Take 1 Un pippa sulfate 324 1-20 tablet by ity of mg (65 mg 00:00: mouth [place] iron) EC 00 daily with Medic al tablet breakfast. Branch ferrous 2022-0 Yes [id number] 324mg Take 1 Un pippa sulfate 324 1-20 tablet by ity of mg (65 mg 00:00: mouth [place] iron) EC 00 daily with Medic al tablet breakfast. Branch ferrous 3-0 2023- No [id number] 324mg Take 1 U nivers sulfate 324 1-20 05-22 tablet by it y of mg (65 mg 00:00: 00:00 mouth [place] iron) EC 00 :00 daily with Medic al tablet breakfast. Branch ferrous 2022-0 2022- No [id number] 324mg Take 1 U nivers sulfate 324 1-20 05-22 tablet by it y of mg (65 mg 00:00: 00:00 mouth [place] iron) EC 00 :00 daily with Medic al tablet breakfast. Branch Insulin 2022-0 Yes [id number] ADMINISTER Univers Glargine 1-19 56 UNITS ity of (LANTUS 00:00: UNDER THE [place] SOLOSTAR 00 SKIN TWICE Medic al U-100 DAILY Branch INSULIN) 100 unit/mL (3 mL) injection metoprolol 0 Yes [id number] TAKE 1/2 Univers tartrate 25 1-19 TABLET BY ity of mg tablet 00:00: MOUTH [place] 00 TWICE Medical DAILY Branch gabapentin 2022-0 Yes [id number] 300mg Take 1 Univers 300 mg 1-19 capsule by ity of capsule 00:00: mouth in [place] 00 the Medical morning Branch and 1 capsule at noon and 1 capsule in the evening. busPIRone 0 Yes [id number] TAKE 1/2 Univers 15 mg 1-19 TO 1 ity of tablet 00:00: TABLET BY [place] 00 MOUTH Medical TWICE Branch DAILY NEEDED FOR ANXIETY carBAMazepi 0 Yes [id number] 200mg Take 2 Univers ne 100 mg 1-19 tablets by ity of 12 hr 00:00: mouth at [place] [facility] 00 bedtime. Medical Branch DULoxetine 2022-0 Yes [id number] 60mg Take 1 Univers 60 mg 1-19 capsule by ity of capsule 00:00: mouth [place] [address] every Medical morning. Branch furosemide 2022-0 Yes [id number] TAKE 1 Univers 40 mg 1-19 TABLET BY ity of tablet 00:00: MOUTH [place] 00 EVERY Medical MORNING Branch AND EVERY EVENING levothyroxi 2022-0 Yes [id number] 175ug Take 1 Univers ne 175 mcg 1-19 tablet by ity of tablet 00:00: mouth [place] 00 every Medical morning. Branch KCL 10 mEq 2022-0 Yes [id number] 20meq Take 2 Univers tablet 1-19 tablets by ity of 00:00: mouth in [place] 00 the Medical morning Branch and 2 tablets in the evening. Only take when taking lasix omeprazole 2022-0 Yes [id number] 40mg Take 1 Univers 40 mg 1-19 capsule by ity of capsule 00:00: mouth in [place] 00 the Medical morning. Branch ondansetron Yes [id number] TAKE 1 Univers 4 mg tablet 1-19 TABLET BY ity of 00:00: MOUTH [place] 00 EVERY 8 Medical HOURS Branch NEEDED FOR NAUSEA OR VOMITING QUEtiapine 2022-0 Yes [id number] 400mg Take 1 Univers 400 mg 1-19 tablet by ity of tablet 00:00: mouth at [place] [address] bedtime. Medical ADDITIONAL Branch REFILLS PER PSYCHIATRY rosuvastati 2022-0 Yes [id number] 20mg Take 1 Univers n 20 mg 1-19 tablet by ity of tablet 00:00: mouth at [place] [address] bedtime. Medical Branch Insulin Yes [id number] ADMINISTER [facility] Glargine 1-19 56 UNITS ity of (LANTUS 00:00: UNDER THE [place] SOLOSTAR 00 SKIN TWICE Medic al U-100 DAILY Branch INSULIN) 100 unit/mL (3 mL) injection metoprolol Yes [id number] TAKE 1/2 Univers tartrate 25 1-19 TABLET BY ity of mg tablet 00:00: MOUTH [place] [address] TWICE Medical DAILY Branch gabapentin 2022-0 Yes [id number] 300mg Take 1 Univers 300 mg 1-19 capsule by ity of capsule 00:00: mouth in [place] 00 the Medical morning Branch and 1 capsule at noon and 1 capsule in the evening. busPIRone Yes [id number] TAKE 1/2 Univers 15 mg 1-19 TO 1 ity of tablet 00:00: TABLET BY [place] [address] MOUTH Medical TWICE Branch DAILY NEEDED FOR ANXIETY carBAMazepi 0 Yes [id number] 200mg Take 2 Univers ne 100 mg 1-19 tablets by ity of 12 hr 00:00: mouth at [place] [facility] 00 bedtime. Medical Branch DULoxetine 2022-0 Yes [id number] 60mg Take 1 Univers 60 mg 1-19 capsule by ity of capsule 00:00: mouth [place] [address] every Medical morning. Branch furosemide 2022-0 Yes [id number] TAKE 1 [facility] 40 mg 1-19 TABLET BY ity of tablet 00:00: MOUTH [place] [address] EVERY Medical MORNING Branch AND EVERY EVENING levothyroxi 2022-0 Yes [id number] 175ug Take 1 Univers ne 175 mcg 1-19 tablet by ity of tablet 00:00: mouth [place] [address] every Medical morning. Branch KCL 10 mEq 2022-0 Yes [id number] 20meq Take 2 Univers tablet 1-19 tablets by ity of 00:00: mouth in [place] 00 the Medical morning Branch and 2 tablets in the evening. Only take when taking lasix omeprazole 2022-0 Yes [id number] 40mg Take 1 [facility] 40 mg 1-19 capsule by ity of capsule 00:00: mouth in [place] [address] the Medical morning. Branch ondansetron 0 Yes [id number] TAKE 1 Univers 4 mg tablet 1-19 TABLET BY [facility] of 00:00: MOUTH [place] [address] EVERY 8 Medical HOURS Branch NEEDED FOR NAUSEA OR VOMITING QUEtiapine 2022-0 Yes [id number] 400mg Take 1 [facility] 400 mg 1-19 tablet by [facility] of tablet 00:00: mouth at [place] [address] bedtime. Medical ADDITIONAL Branch REFILLS PER PSYCHIATRY rosuvastati 2022-0 Yes [id number] 20mg Take 1 [facility] n 20 mg 1-19 tablet by [facility] of tablet 00:00: mouth at [place] [address] bedtime. Medical Branch Insulin Yes [id number] ADMINISTER [facility] Glargine 1-19 56 UNITS ity of ([place] 00:00: UNDER THE [place] [facility] 00 SKIN TWICE Medic al U-100 DAILY Branch INSULIN) 100 unit/mL (3 mL) injection metoprolol 0 Yes [id number] TAKE 1/2 [facility] tartrate 25 1-19 TABLET BY ity of mg tablet 00:00: MOUTH [place] [address] TWICE Medical DAILY Branch gabapentin 2022-0 Yes [id number] 300mg Take 1 [facility] 300 mg 1-19 capsule by it[facility] of capsule 00:00: mouth in [place] [address] the Medical morning Branch and 1 capsule at noon and 1 capsule in the evening. busPIRone 2022-0 Yes [id number] TAKE 1/2 [facility] 15 mg 1-19 TO 1 [facility] of tablet 00:00: TABLET BY [place] [address] MOUTH Medical TWICE Branch DAILY NEEDED FOR ANXIETY carBAMazepi 2022-0 Yes [id number] 200mg Take 2 [facility] ne 100 mg 1-19 tablets by it[facility] of 12 hr 00:00: mouth at [place] [address] bedtime. Medical Branch DULoxetine 2022-0 Yes [id number] 60mg Take 1 [facility] 60 mg 1-19 capsule by [facility] of capsule 00:00: mouth [place] 00 every Medical morning. Branch furosemide 2022-0 Yes [id number] TAKE 1 [facility] 40 mg 1-19 TABLET BY it[facility] of tablet 00:00: MOUTH [place] 00 EVERY Medical MORNING Branch AND EVERY EVENING levothyroxi 2022-0 Yes [id number] 175ug Take 1 [facility] ne 175 mcg 1-19 tablet by it[facility] of tablet 00:00: mouth [place] [address] every Medical morning. Branch KCL 10 mEq 2022-0 Yes [id number] 20meq Take 2 [facility] tablet 1-19 tablets by [facility] of 00:00: mouth in [place] 00 the Medical morning Branch and 2 tablets in the evening. Only take when taking lasix omeprazole 0 Yes [id number] 40mg Take 1 [facility] 40 mg 1-19 capsule by [facility] of capsule 00:00: mouth in [place] [address] the Medical morning. Branch ondansetron 0 Yes [id number] TAKE 1 [facility] 4 mg tablet 1-19 TABLET BY [facility] of 00:00: MOUTH [place] [address] EVERY 8 Medical HOURS Branch NEEDED FOR NAUSEA OR VOMITING QUEtiapine 0 Yes [id number] 400mg Take 1 [facility] 400 mg 1-19 tablet by [facility] of tablet 00:00: mouth at [place] [address] bedtime. Medical ADDITIONAL Branch REFILLS PER PSYCHIATRY rosuvastati 0 Yes [id number] 20mg Take 1 [facility] n 20 mg 1-19 tablet by [facility] of tablet 00:00: mouth at [place] [address] bedtime. Medical Branch Insulin 0 Yes [id number] ADMINISTER [facility] Glargine 1-19 56 UNITS ity of ([place] 00:00: UNDER THE [place] [facility] 00 SKIN TWICE Medic al U-100 DAILY Branch INSULIN) 100 unit/mL (3 mL) injection metoprolol 0 Yes [id number] TAKE 1/2 [facility] tartrate 25 1-19 TABLET BY it[facility] of mg tablet 00:00: MOUTH [place] [address] TWICE Medical DAILY Branch gabapentin 2022-0 Yes [id number] 300mg Take 1 [facility] 300 mg 1-19 capsule by it[facility] of capsule 00:00: mouth in [place] [address] the Medical morning Branch and 1 capsule at noon and 1 capsule in the evening. busPIRone 0 Yes [id number] TAKE 1/2 [facility] 15 mg 1-19 TO 1 it[facility] of tablet 00:00: TABLET BY [place] 00 MOUTH Medical TWICE Branch DAILY NEEDED FOR ANXIETY carBAMazepi 2022-0 Yes [id number] 200mg Take 2 [facility] ne 100 mg 1-19 tablets by it[facility] of 12 hr 00:00: mouth at [place] [facility] 00 bedtime. Medical Branch DULoxetine 2022-0 Yes [id number] 60mg Take 1 [facility] 60 mg 1-19 capsule by it[facility] of capsule 00:00: mouth [place] 00 every Medical morning. Branch furosemide 2022-0 Yes [id number] TAKE 1 [facility] 40 mg 1-19 TABLET BY ity of tablet 00:00: MOUTH [place] 00 EVERY Medical MORNING Branch AND EVERY EVENING levothyroxi 2022-0 Yes [id number] 175ug Take 1 [facility] ne 175 mcg 1-19 tablet by ity of tablet 00:00: mouth [place] [address] every Medical morning. Branch KCL 10 mEq 2022-0 Yes [id number] 20meq Take 2 [facility] tablet 1-19 tablets by ity of 00:00: mouth in [place] 00 the Medical morning Branch and 2 tablets in the evening. Only take when taking lasix omeprazole 0 Yes [id number] 40mg Take 1 [facility] 40 mg 1-19 capsule by it[facility] of capsule 00:00: mouth in [place] [address] the Medical morning. Branch ondansetron 0 Yes [id number] TAKE 1 [facility] 4 mg tablet 1-19 TABLET BY ity of 00:00: MOUTH [place] 00 EVERY 8 Medical HOURS Branch NEEDED FOR NAUSEA OR VOMITING QUEtiapine 2022-0 Yes [id number] 400mg Take 1 [facility] 400 mg 1-19 tablet by it[facility] of tablet 00:00: mouth at [place] [address] bedtime. Medical ADDITIONAL Branch REFILLS PER PSYCHIATRY rosuvastati 2022-0 Yes [id number] 20mg Take 1 [facility] n 20 mg 1-19 tablet by it[facility] of tablet 00:00: mouth at [place] [address] bedtime. Medical Branch Insulin 2022-0 Yes [id number] ADMINISTER [facility] Glargine 1-19 56 UNITS ity of ([place] 00:00: UNDER THE [place] [facility] 00 SKIN TWICE Medic al U-100 DAILY Branch INSULIN) 100 unit/mL (3 mL) injection metoprolol 2022-0 Yes [id number] TAKE 1/2 [facility] tartrate 25 1-19 TABLET BY ity of mg tablet 00:00: MOUTH [place] [address] TWICE Medical DAILY Branch gabapentin 2023-0 Yes [id number] 300mg Take 1 [facility] 300 mg 1-19 capsule by ity of capsule 00:00: mouth in [place] 00 the Medical morning Branch and 1 capsule at noon and 1 capsule in the evening. busPIRone Yes [id number] TAKE 1/2 [facility] 15 mg 1-19 TO 1 ity of tablet 00:00: TABLET BY [place] 00 MOUTH Medical TWICE Branch DAILY NEEDED FOR ANXIETY carBAMazepi Yes [id number] 200mg Take 2 [facility] ne 100 mg 1-19 tablets by ity of 12 hr 00:00: mouth at [place] [facility] 00 bedtime. Medical Branch DULoxetine Yes [id number] 60mg Take 1 [facility] 60 mg 1-19 capsule by it[facility] of capsule 00:00: mouth [place] 00 every Medical morning. Branch furosemide Yes [id number] TAKE 1 [facility] 40 mg 1-19 TABLET BY ity of tablet 00:00: MOUTH [place] 00 EVERY Medical MORNING Branch AND EVERY EVENING levothyroxi Yes [id number] 175ug Take 1 [facility] ne 175 mcg 1-19 tablet by ity of tablet 00:00: mouth [place] 00 every Medical morning. Branch KCL 10 mEq Yes [id number] 20meq Take 2 [facility] tablet 1-19 tablets by ity of 00:00: mouth in [place] 00 the Medical morning Branch and 2 tablets in the evening. Only take when taking lasix omeprazole Yes [id number] 40mg Take 1 [facility] 40 mg 1-19 capsule by it[facility] of capsule 00:00: mouth in [place] 00 the Medical morning. Branch ondansetron Yes [id number] TAKE 1 [facility] 4 mg tablet 1-19 TABLET BY ity of 00:00: MOUTH [place] 00 EVERY 8 Medical HOURS Branch NEEDED FOR NAUSEA OR VOMITING QUEtiapine Yes [id number] 400mg Take 1 [facility] 400 mg 1-19 tablet by ity of tablet 00:00: mouth at [place] [address] bedtime. Medical ADDITIONAL Branch REFILLS PER PSYCHIATRY rosuvastati Yes [id number] 20mg Take 1 [facility] n 20 mg 1-19 tablet by it[facility] of tablet 00:00: mouth at [place] [address] bedtime. Medical Branch Insulin 0 Yes [id number] ADMINISTER [facility] Glargine 1-19 56 UNITS ity of ([place] 00:00: UNDER THE [place] [facility] 00 SKIN TWICE Medic al U-100 DAILY Branch INSULIN) 100 unit/mL (3 mL) injection metoprolol 2022-0 Yes [id number] TAKE 1/2 [facility] tartrate 25 1-19 TABLET BY ity of mg tablet 00:00: MOUTH [place] 00 TWICE Medical DAILY Branch gabapentin 2022-0 Yes [id number] 300mg Take 1 [facility] 300 mg 1-19 capsule by ity of capsule 00:00: mouth in [place] 00 the Medical morning Branch and 1 capsule at noon and 1 capsule in the evening. busPIRone 2022-0 Yes [id number] TAKE 1/2 [facility] 15 mg 1-19 TO 1 ity of tablet 00:00: TABLET BY [place] [address] MOUTH Medical TWICE Branch DAILY NEEDED FOR ANXIETY carBAMazepi 2022-0 Yes [id number] 200mg Take 2 [facility] ne 100 mg 1-19 tablets by ity of 12 hr 00:00: mouth at [place] [address] bedtime. Medical Branch DULoxetine 2022-0 Yes [id number] 60mg Take 1 [facility] 60 mg 1-19 capsule by ity of capsule 00:00: mouth [place] [address] every Medical morning. Branch furosemide 2022-0 Yes [id number] TAKE 1 [facility] 40 mg 1-19 TABLET BY ity of tablet 00:00: MOUTH [place] [address] EVERY Medical MORNING Branch AND EVERY EVENING levothyroxi 2022-0 Yes [id number] 175ug Take 1 [facility] ne 175 mcg 1-19 tablet by ity of tablet 00:00: mouth [place] [address] every Medical morning. Branch KCL 10 mEq 2022-0 Yes [id number] 20meq Take 2 [facility] tablet 1-19 tablets by ity of 00:00: mouth in [place] 00 the Medical morning Branch and 2 tablets in the evening. Only take when taking lasix omeprazole 2022-0 Yes [id number] 40mg Take 1 [facility] 40 mg 1-19 capsule by ity of capsule 00:00: mouth in [place] [address] the Medical morning. Branch ondansetron 2022-0 Yes [id number] TAKE 1 [facility] 4 mg tablet 1-19 TABLET BY ity of 00:00: MOUTH [place] 00 EVERY 8 Medical HOURS Branch NEEDED FOR NAUSEA OR VOMITING QUEtiapine 2022-0 Yes [id number] 400mg Take 1 [facility] 400 mg 1-19 tablet by ity of tablet 00:00: mouth at [place] [address] bedtime. Medical ADDITIONAL Branch REFILLS PER PSYCHIATRY rosuvastati Yes [id number] 20mg Take 1 [facility] n 20 mg 1-19 tablet by ity of tablet 00:00: mouth at [place] [address] bedtime. Medical Branch Insulin 0 Yes [id number] ADMINISTER [facility] Glargine 1-19 56 UNITS ity of ([place] 00:00: UNDER THE [place] [facility] 00 SKIN TWICE Medic al U-100 DAILY Branch INSULIN) 100 unit/mL (3 mL) injection metoprolol 0 Yes [id number] TAKE 1/2 [facility] tartrate 25 1-19 TABLET BY ity of mg tablet 00:00: MOUTH [place] [address] TWICE Medical DAILY Branch gabapentin 0 Yes [id number] 300mg Take 1 [facility] 300 mg 1-19 capsule by ity of capsule 00:00: mouth in [place] [address] the Medical morning Branch and 1 capsule at noon and 1 capsule in the evening. busPIRone 0 Yes [id number] TAKE 1/2 [facility] 15 mg 1-19 TO 1 ity of tablet 00:00: TABLET BY [place] [address] MOUTH Medical TWICE Branch DAILY NEEDED FOR ANXIETY carBAMazepi Yes [id number] 200mg Take 2 [facility] ne 100 mg 1-19 tablets by ity of 12 hr 00:00: mouth at [place] [address] bedtime. Medical Branch DULoxetine 0 Yes [id number] 60mg Take 1 [facility] 60 mg 1-19 capsule by ity of capsule 00:00: mouth [place] [address] every Medical morning. Branch furosemide 0 Yes [id number] TAKE 1 [facility] 40 mg 1-19 TABLET BY ity of tablet 00:00: MOUTH [place] 00 EVERY Medical MORNING Branch AND EVERY EVENING levothyroxi 2022-0 Yes [id number] 175ug Take 1 [facility] ne 175 mcg 1-19 tablet by ity of tablet 00:00: mouth [place] [address] every Medical morning. Branch KCL 10 mEq 0 Yes [id number] 20meq Take 2 [facility] tablet 1-19 tablets by ity of 00:00: mouth in [place] [address] the Medical morning Branch and 2 tablets in the evening. Only take when taking lasix omeprazole 2022-0 Yes [id number] 40mg Take 1 [facility] 40 mg 1-19 capsule by ity of capsule 00:00: mouth in [place] 00 the Medical morning. Branch ondansetron 0 Yes [id number] TAKE 1 [facility] 4 mg tablet 1-19 TABLET BY ity of 00:00: MOUTH [place] 00 EVERY 8 Medical HOURS Branch NEEDED FOR NAUSEA OR VOMITING QUEtiapine 2022-0 Yes [id number] 400mg Take 1 [facility] 400 mg 1-19 tablet by ity of tablet 00:00: mouth at [place] [address] bedtime. Medical ADDITIONAL Branch REFILLS PER PSYCHIATRY rosuvastati 2022-0 Yes [id number] 20mg Take 1 [facility] n 20 mg 1-19 tablet by ity of tablet 00:00: mouth at [place] [address] bedtime. Medical Branch Insulin 0 Yes [id number] ADMINISTER [facility] Glargine 1-19 56 UNITS ity of ([place] 00:00: UNDER THE [place] [facility] 00 SKIN TWICE Medic al U-100 DAILY Branch INSULIN) 100 unit/mL (3 mL) injection metoprolol 2022-0 Yes [id number] TAKE 1/2 [facility] tartrate 25 1-19 TABLET BY ity of mg tablet 00:00: MOUTH [place] 00 TWICE Medical DAILY Branch gabapentin 2022-0 Yes [id number] 300mg Take 1 [facility] 300 mg 1-19 capsule by ity of capsule 00:00: mouth in [place] 00 the Medical morning Branch and 1 capsule at noon and 1 capsule in the evening. busPIRone Yes [id number] TAKE 1/2 [facility] 15 mg 1-19 TO 1 ity of tablet 00:00: TABLET BY [place] 00 MOUTH Medical TWICE Branch DAILY NEEDED FOR ANXIETY carBAMazepi 2022-0 Yes [id number] 200mg Take 2 [facility] ne 100 mg 1-19 tablets by ity of 12 hr 00:00: mouth at [place] [facility] 00 bedtime. Medical Branch DULoxetine 2022-0 Yes [id number] 60mg Take 1 [facility] 60 mg 1-19 capsule by ity of capsule 00:00: mouth [place] 00 every Medical morning. Branch furosemide 2022-0 Yes [id number] TAKE 1 [facility] 40 mg 1-19 TABLET BY ity of tablet 00:00: MOUTH [place] 00 EVERY Medical MORNING Branch AND EVERY EVENING levothyroxi 2022-0 Yes [id number] 175ug Take 1 [facility] ne 175 mcg 1-19 tablet by ity of tablet 00:00: mouth [place] 00 every Medical morning. Branch KCL 10 mEq 2022-0 Yes [id number] 20meq Take 2 [facility] tablet 1-19 tablets by ity of 00:00: mouth in [place] 00 the Medical morning Branch and 2 tablets in the evening. Only take when taking lasix omeprazole 2022-0 Yes [id number] 40mg Take 1 [facility] 40 mg 1-19 capsule by ity of capsule 00:00: mouth in [place] 00 the Medical morning. Branch ondansetron 2022-0 Yes [id number] TAKE 1 [facility] 4 mg tablet 1-19 TABLET BY ity of 00:00: MOUTH [place] 00 EVERY 8 Medical HOURS Branch NEEDED FOR NAUSEA OR VOMITING QUEtiapine 2022-0 Yes [id number] 400mg Take 1 [facility] 400 mg 1-19 tablet by ity of tablet 00:00: mouth at [place] [address] bedtime. Medical ADDITIONAL Branch REFILLS PER PSYCHIATRY rosuvastati 2022-0 Yes [id number] 20mg Take 1 [facility] n 20 mg 1-19 tablet by ity of tablet 00:00: mouth at [place] [address] bedtime. Medical Branch metoprolol 2022-0 Yes [id number] TAKE 1/2 [facility] tartrate 25 1-19 TABLET BY ity of mg tablet 00:00: MOUTH [place] [address] TWICE Medical DAILY Branch gabapentin 2022-0 Yes [id number] 300mg Take 1 [facility] 300 mg 1-19 capsule by ity of capsule 00:00: mouth in [place] 00 the Medical morning Branch and 1 capsule at noon and 1 capsule in the evening. busPIRone 2022-0 Yes [id number] TAKE 1/2 [facility] 15 mg 1-19 TO 1 ity of tablet 00:00: TABLET BY [place] [address] MOUTH Medical TWICE Branch DAILY NEEDED FOR ANXIETY carBAMazepi 2022-0 Yes [id number] 200mg Take 2 [facility] ne 100 mg 1-19 tablets by ity of 12 hr 00:00: mouth at [place] [facility] 00 bedtime. Medical Branch DULoxetine 2022-0 Yes [id number] 60mg Take 1 [facility] 60 mg 1-19 capsule by ity of capsule 00:00: mouth [place] [address] every Medical morning. Branch furosemide 2022-0 Yes [id number] TAKE 1 [facility] 40 mg 1-19 TABLET BY ity of tablet 00:00: MOUTH [place] 00 EVERY Medical MORNING Branch AND EVERY EVENING levothyroxi 2022-0 Yes [id number] 175ug Take 1 [facility] ne 175 mcg 1-19 tablet by ity of tablet 00:00: mouth [place] [address] every Medical morning. Branch KCL 10 mEq 2022-0 Yes [id number] 20meq Take 2 [facility] tablet 1-19 tablets by ity of 00:00: mouth in [place] 00 the Medical morning Branch and 2 tablets in the evening. Only take when taking lasix omeprazole 2022-0 Yes [id number] 40mg Take 1 [facility] 40 mg 1-19 capsule by ity of capsule 00:00: mouth in [place] [address] the Medical morning. Branch ondansetron 2022-0 Yes [id number] TAKE 1 [facility] 4 mg tablet 1-19 TABLET BY ity of 00:00: MOUTH [place] 00 EVERY 8 Medical HOURS Branch NEEDED FOR NAUSEA OR VOMITING QUEtiapine 2022-0 Yes [id number] 400mg Take 1 [facility] 400 mg 1-19 tablet by ity of tablet 00:00: mouth at [place] [address] bedtime. Medical ADDITIONAL Branch REFILLS PER PSYCHIATRY rosuvastati 2022-0 Yes [id number] 20mg Take 1 [facility] n 20 mg 1-19 tablet by ity of tablet 00:00: mouth at [place] [address] bedtime. Medical Branch metoprolol 2022-0 Yes [id number] TAKE 1/2 [facility] tartrate 25 1-19 TABLET BY ity of mg tablet 00:00: MOUTH [place] [address] TWICE Medical DAILY Branch gabapentin 2022-0 Yes [id number] 300mg Take 1 [facility] 300 mg 1-19 capsule by ity of capsule 00:00: mouth in [place] 00 the Medical morning Branch and 1 capsule at noon and 1 capsule in the evening. busPIRone 2022-0 Yes [id number] TAKE 1/2 [facility] 15 mg 1-19 TO 1 ity of tablet 00:00: TABLET BY [place] 00 MOUTH Medical TWICE Branch DAILY NEEDED FOR ANXIETY carBAMazepi 2022-0 Yes [id number] 200mg Take 2 [facility] ne 100 mg 1-19 tablets by ity of 12 hr 00:00: mouth at [facility] 00 bedtime. Medical Branch DULoxetine 2022-0 Yes [id number] 60mg Take 1 [facility] 60 mg 1-19 capsule by ity of capsule 00:00: mouth [place] [address] every Medical morning. Branch furosemide 2022-0 Yes [id number] TAKE 1 [facility] 40 mg 1-19 TABLET BY ity of tablet 00:00: MOUTH [place] [address] EVERY Medical MORNING Branch AND EVERY EVENING levothyroxi 2023-0 Yes [id number] 175ug Take 1 [facility] ne 175 mcg 1-19 tablet by ity of tablet 00:00: mouth [place] [address] every Medical morning. Branch KCL 10 mEq 2022-0 Yes [id number] 20meq Take 2 [facility] tablet 1-19 tablets by ity of 00:00: mouth in [place] 00 the Medical morning Branch and 2 tablets in the evening. Only take when taking lasix omeprazole 2022-0 Yes [id number] 40mg Take 1 [facility] 40 mg 1-19 capsule by ity of capsule 00:00: mouth in [place] 00 the Medical morning. Branch ondansetron Yes [id number] TAKE 1 [facility] 4 mg tablet 1-19 TABLET BY ity of 00:00: MOUTH [place] 00 EVERY 8 Medical HOURS Branch NEEDED FOR NAUSEA OR VOMITING QUEtiapine 2022-0 Yes [id number] 400mg Take 1 [facility] 400 mg 1-19 tablet by ity of tablet 00:00: mouth at [place] [address] bedtime. Medical ADDITIONAL Branch REFILLS PER PSYCHIATRY rosuvastati Yes [id number] 20mg Take 1 [facility] n 20 mg 1-19 tablet by ity of tablet 00:00: mouth at [place] [address] bedtime. Medical Branch metoprolol Yes [id number] TAKE 1/2 [facility] tartrate 25 1-19 TABLET BY ity of mg tablet 00:00: MOUTH [place] 00 TWICE Medical DAILY Branch gabapentin 2022-0 Yes [id number] 300mg Take 1 [facility] 300 mg 1-19 capsule by ity of capsule 00:00: mouth in [place] 00 the Medical morning Branch and 1 capsule at noon and 1 capsule in the evening. busPIRone 0 Yes [id number] TAKE 1/2 [facility] 15 mg 1-19 TO 1 ity of tablet 00:00: TABLET BY [place] 00 MOUTH Medical TWICE Branch DAILY NEEDED FOR ANXIETY carBAMazepi 2022-0 Yes [id number] 200mg Take 2 [facility] ne 100 mg 1-19 tablets by ity of 12 hr 00:00: mouth at [place] [facility] 00 bedtime. Medical Branch DULoxetine 2022-0 Yes [id number] 60mg Take 1 [facility] 60 mg 1-19 capsule by ity of capsule 00:00: mouth [place] [address] every Medical morning. Branch furosemide 2022-0 Yes [id number] TAKE 1 [facility] 40 mg 1-19 TABLET BY ity of tablet 00:00: MOUTH [place] 00 EVERY Medical MORNING Branch AND EVERY EVENING levothyroxi 2022-0 Yes [id number] 175ug Take 1 [facility] ne 175 mcg 1-19 tablet by ity of tablet 00:00: mouth [place] 00 every Medical morning. Branch KCL 10 mEq 2022-0 Yes [id number] 20meq Take 2 [facility] tablet 1-19 tablets by ity of 00:00: mouth in [place] 00 the Medical morning Branch and 2 tablets in the evening. Only take when taking lasix omeprazole 2022-0 Yes [id number] 40mg Take 1 [facility] 40 mg 1-19 capsule by ity of capsule 00:00: mouth in [place] [address] the Medical morning. Branch ondansetron 0 Yes [id number] TAKE 1 [facility] 4 mg tablet 1-19 TABLET BY ity of 00:00: MOUTH [place] 00 EVERY 8 Medical HOURS Branch NEEDED FOR NAUSEA OR VOMITING QUEtiapine 2022-0 Yes [id number] 400mg Take 1 [facility] 400 mg 1-19 tablet by ity of tablet 00:00: mouth at [place] [address] bedtime. Medical ADDITIONAL Branch REFILLS PER PSYCHIATRY rosuvastati 2022-0 Yes [id number] 20mg Take 1 [facility] n 20 mg 1-19 tablet by ity of tablet 00:00: mouth at [place] [address] bedtime. Medical Branch metoprolol 2022-0 Yes [id number] TAKE 1/2 [facility] tartrate 25 1-19 TABLET BY ity of mg tablet 00:00: MOUTH [place] 00 TWICE Medical DAILY Branch gabapentin 2022-0 Yes [id number] 300mg Take 1 [facility] 300 mg 1-19 capsule by ity of capsule 00:00: mouth in [place] 00 the Medical morning Branch and 1 capsule at noon and 1 capsule in the evening. busPIRone 2022-0 Yes [id number] TAKE 1/2 [facility] 15 mg 1-19 TO 1 ity of tablet 00:00: TABLET BY [place] 00 MOUTH Medical TWICE Branch DAILY NEEDED FOR ANXIETY carBAMazepi 2022-0 Yes [id number] 200mg Take 2 [facility] ne 100 mg 1-19 tablets by ity of 12 hr 00:00: mouth at [place] [facility] 00 bedtime. Medical Branch DULoxetine 2022-0 Yes [id number] 60mg Take 1 [facility] 60 mg 1-19 capsule by ity of capsule 00:00: mouth [place] 00 every Medical morning. Branch furosemide 2022-0 Yes [id number] TAKE 1 [facility] 40 mg 1-19 TABLET BY ity of tablet 00:00: MOUTH [place] 00 EVERY Medical MORNING Branch AND EVERY EVENING levothyroxi 2022-0 Yes [id number] 175ug Take 1 [facility] ne 175 mcg 1-19 tablet by ity of tablet 00:00: mouth [place] [address] every Medical morning. Branch KCL 10 mEq 2022-0 Yes [id number] 20meq Take 2 [facility] tablet 1-19 tablets by ity of 00:00: mouth in [place] 00 the Medical morning Branch and 2 tablets in the evening. Only take when taking lasix omeprazole 2022-0 Yes [id number] 40mg Take 1 [facility] 40 mg 1-19 capsule by ity of capsule 00:00: mouth in [place] [address] the Medical morning. Branch ondansetron 0 Yes [id number] TAKE 1 [facility] 4 mg tablet 1-19 TABLET BY ity of 00:00: MOUTH [place] [address] EVERY 8 Medical HOURS Branch NEEDED FOR NAUSEA OR VOMITING QUEtiapine 2022-0 Yes [id number] 400mg Take 1 [facility] 400 mg 1-19 tablet by ity of tablet 00:00: mouth at [place] [address] bedtime. Medical ADDITIONAL Branch REFILLS PER PSYCHIATRY rosuvastati 2022-0 Yes [id number] 20mg Take 1 [facility] n 20 mg 1-19 tablet by ity of tablet 00:00: mouth at [place] [address] bedtime. Medical Branch metoprolol 2022-0 Yes [id number] TAKE 1/2 [facility] tartrate 25 1-19 TABLET BY ity of mg tablet 00:00: MOUTH [place] [address] TWICE Medical DAILY Branch gabapentin 2022-0 Yes [id number] 300mg Take 1 [facility] 300 mg 1-19 capsule by ity of capsule 00:00: mouth in [place] [address] the Medical morning Branch and 1 capsule at noon and 1 capsule in the evening. busPIRone 2022-0 Yes [id number] TAKE 1/2 [facility] 15 mg 1-19 TO 1 ity of tablet 00:00: TABLET BY [place] [address] MOUTH Medical TWICE Branch DAILY NEEDED FOR ANXIETY carBAMazepi 2022-0 Yes [id number] 200mg Take 2 [facility] ne 100 mg 1-19 tablets by ity of 12 hr 00:00: mouth at [place] [address] bedtime. Medical Branch DULoxetine 2022-0 Yes [id number] 60mg Take 1 [facility] 60 mg 1-19 capsule by ity of capsule 00:00: mouth [place] 00 every Medical morning. Branch furosemide 2022-0 Yes [id number] TAKE 1 [facility] 40 mg 1-19 TABLET BY ity of tablet 00:00: MOUTH [place] 00 EVERY Medical MORNING Branch AND EVERY EVENING levothyroxi 2022-0 Yes [id number] 175ug Take 1 [facility] ne 175 mcg 1-19 tablet by ity of tablet 00:00: mouth [place] [address] every Medical morning. Branch KCL 10 mEq 2022-0 Yes [id number] 20meq Take 2 [facility] tablet 1-19 tablets by ity of 00:00: mouth in [place] 00 the Medical morning Branch and 2 tablets in the evening. Only take when taking lasix omeprazole 2022-0 Yes [id number] 40mg Take 1 [facility] 40 mg 1-19 capsule by ity of capsule 00:00: mouth in [place] [address] the Medical morning. Branch ondansetron 2022-0 Yes [id number] TAKE 1 [facility] 4 mg tablet 1-19 TABLET BY ity of 00:00: MOUTH [place] [address] EVERY 8 Medical HOURS Branch NEEDED FOR NAUSEA OR VOMITING QUEtiapine 2022-0 Yes [id number] 400mg Take 1 [facility] 400 mg 1-19 tablet by ity of tablet 00:00: mouth at [place] [address] bedtime. Medical ADDITIONAL Branch REFILLS PER PSYCHIATRY rosuvastati 2022-0 Yes [id number] 20mg Take 1 [facility] n 20 mg 1-19 tablet by ity of tablet 00:00: mouth at [place] [address] bedtime. Medical Branch metoprolol 2022-0 Yes [id number] TAKE 1/2 [facility] tartrate 25 1-19 TABLET BY ity of mg tablet 00:00: MOUTH [place] 00 TWICE Medical DAILY Branch gabapentin 2022-0 Yes [id number] 300mg Take 1 [facility] 300 mg 1-19 capsule by ity of capsule 00:00: mouth in [place] 00 the Medical morning Branch and 1 capsule at noon and 1 capsule in the evening. busPIRone 2022-0 Yes [id number] TAKE 1/2 [facility] 15 mg 1-19 TO 1 ity of tablet 00:00: TABLET BY [place] 00 MOUTH Medical TWICE Branch DAILY NEEDED FOR ANXIETY carBAMazepi 2022-0 Yes [id number] 200mg Take 2 [facility] ne 100 mg 1-19 tablets by ity of 12 hr 00:00: mouth at [facility] 00 bedtime. Medical Branch DULoxetine 2022-0 Yes [id number] 60mg Take 1 [facility] 60 mg 1-19 capsule by ity of capsule 00:00: mouth [place] [address] every Medical morning. Branch furosemide 2022-0 Yes [id number] TAKE 1 [facility] 40 mg 1-19 TABLET BY ity of tablet 00:00: MOUTH [place] 00 EVERY Medical MORNING Branch AND EVERY EVENING levothyroxi 2022-0 Yes [id number] 175ug Take 1 [facility] ne 175 mcg 1-19 tablet by [facility] tablet 00:00: mouth [place] [address] every Medical morning. Branch KCL 10 mEq 2022-0 Yes [id number] 20meq Take 2 [facility] tablet 1-19 tablets by [facility] of 00:00: mouth in [place] 00 the Medical morning Branch and 2 tablets in the evening. Only take when taking lasix omeprazole 2022-0 Yes [id number] 40mg Take 1 [facility] 40 mg 1-19 capsule by [facility] capsule 00:00: mouth in [place] [address] the Medical morning. Branch ondansetron 2022-0 Yes [id number] TAKE 1 [facility] 4 mg tablet 1-19 TABLET BY [facility] of 00:00: MOUTH [place] [address] EVERY 8 Medical HOURS Branch NEEDED FOR NAUSEA OR VOMITING QUEtiapine 2022-0 Yes [id number] 400mg Take 1 [facility] 400 mg 1-19 tablet by [facility] tablet 00:00: mouth at [place] [address] bedtime. Medical ADDITIONAL Branch REFILLS PER PSYCHIATRY rosuvastati 2022-0 Yes [id number] 20mg Take 1 [facility] n 20 mg 1-19 tablet by [facility] tablet 00:00: mouth at [place] [address] bedtime. Medical Branch metoprolol 2022-0 Yes [id number] TAKE 1/2 [facility] tartrate 25 1-19 TABLET BY [facility] of mg tablet 00:00: MOUTH [place] [address] TWICE Medical DAILY Branch gabapentin 2022-0 Yes [id number] 300mg Take 1 [facility] 300 mg 1-19 capsule by [facility] capsule 00:00: mouth in [place] 00 the Medical morning Branch and 1 capsule at noon and 1 capsule in the evening. busPIRone 2022-0 Yes [id number] TAKE 1/2 [facility] 15 mg 1-19 TO 1 [facility] tablet 00:00: TABLET BY [place] [address] MOUTH Medical TWICE Branch DAILY NEEDED FOR ANXIETY carBAMazepi 2022-0 Yes [id number] 200mg Take 2 [facility] ne 100 mg 1-19 tablets by [facility] of 12 hr 00:00: mouth at [facility] 00 bedtime. Medical Branch DULoxetine 2022-0 Yes [id number] 60mg Take 1 [facility] 60 mg 1-19 capsule by [facility] of capsule 00:00: mouth [place] 00 every Medical morning. Branch furosemide 2022-0 Yes [id number] TAKE 1 [facility] 40 mg 1-19 TABLET BY [facility] of tablet 00:00: MOUTH [place] 00 EVERY Medical MORNING Branch AND EVERY EVENING levothyroxi 2022-0 Yes [id number] 175ug Take 1 [facility] ne 175 mcg 1-19 tablet by [facility] of tablet 00:00: mouth [place] 00 every Medical morning. Branch KCL 10 mEq 0 Yes [id number] 20meq Take 2 [facility] tablet 1-19 tablets by [facility] of 00:00: mouth in [place] 00 the Medical morning Branch and 2 tablets in the evening. Only take when taking lasix omeprazole 2022-0 Yes [id number] 40mg Take 1 [facility] 40 mg 1-19 capsule by [facility] of capsule 00:00: mouth in [place] 00 the Medical morning. Branch ondansetron Yes [id number] TAKE 1 [facility] 4 mg tablet 1-19 TABLET BY [facility] of 00:00: MOUTH [place] 00 EVERY 8 Medical HOURS Branch NEEDED FOR NAUSEA OR VOMITING QUEtiapine 2022-0 Yes [id number] 400mg Take 1 [facility] 400 mg 1-19 tablet by [facility] of tablet 00:00: mouth at [place] [address] bedtime. Medical ADDITIONAL Branch REFILLS PER PSYCHIATRY rosuvastati 2022-0 Yes [id number] 20mg Take 1 [facility] n 20 mg 1-19 tablet by [facility] of tablet 00:00: mouth at [place] [address] bedtime. Medical Branch metoprolol 2022-0 Yes [id number] TAKE 1/2 [facility] tartrate 25 1-19 TABLET BY [facility] of mg tablet 00:00: MOUTH [place] 00 TWICE Medical DAILY Branch gabapentin 2022-0 Yes [id number] 300mg Take 1 [facility] 300 mg 1-19 capsule by [facility] of capsule 00:00: mouth in [place] 00 the Medical morning Branch and 1 capsule at noon and 1 capsule in the evening. busPIRone 2022-0 Yes [id number] TAKE 1/2 [facility] 15 mg 1-19 TO 1 [facility] of tablet 00:00: TABLET BY [place] 00 MOUTH Medical TWICE Branch DAILY NEEDED FOR ANXIETY carBAMazepi Yes [id number] 200mg Take 2 [facility] ne 100 mg 1-19 tablets by [facility] of 12 hr 00:00: mouth at [facility] 00 bedtime. Medical Branch DULoxetine 0 Yes [id number] 60mg Take 1 [facility] 60 mg 1-19 capsule by [facility] of capsule 00:00: mouth [place] [address] every Medical morning. Branch furosemide 0 Yes [id number] TAKE 1 [facility] 40 mg 1-19 TABLET BY it[facility] of tablet 00:00: MOUTH [place] 00 EVERY Medical MORNING Branch AND EVERY EVENING levothyroxi 2022-0 Yes [id number] 175ug Take 1 [facility] ne 175 mcg 1-19 tablet by [facility] of tablet 00:00: mouth [place] [address] every Medical morning. Branch KCL 10 mEq Yes [id number] 20meq Take 2 [facility] tablet 1-19 tablets by [facility] of 00:00: mouth in [place] 00 the Medical morning Branch and 2 tablets in the evening. Only take when taking lasix omeprazole Yes [id number] 40mg Take 1 [facility] 40 mg 1-19 capsule by [facility] of capsule 00:00: mouth in [place] [address] the Medical morning. Branch ondansetron Yes [id number] TAKE 1 [facility] 4 mg tablet 1-19 TABLET BY it[facility] of 00:00: MOUTH [place] [address] EVERY 8 Medical HOURS Branch NEEDED FOR NAUSEA OR VOMITING QUEtiapine 0 Yes [id number] 400mg Take 1 [facility] 400 mg 1-19 tablet by [facility] of tablet 00:00: mouth at [place] [address] bedtime. Medical ADDITIONAL Branch REFILLS PER PSYCHIATRY rosuvastati Yes [id number] 20mg Take 1 [facility] n 20 mg 1-19 tablet by [facility] of tablet 00:00: mouth at [place] [address] bedtime. Medical Branch metoprolol 2022-0 Yes [id number] TAKE 1/2 [facility] tartrate 25 1-19 TABLET BY it[facility] of mg tablet 00:00: MOUTH [place] 00 TWICE Medical DAILY Branch gabapentin 2022-0 Yes [id number] 300mg Take 1 [facility] 300 mg 1-19 capsule by [facility] of capsule 00:00: mouth in [place] 00 the Medical morning Branch and 1 capsule at noon and 1 capsule in the evening. busPIRone 0 Yes [id number] TAKE 1/2 [facility] 15 mg 1-19 TO 1 [facility] of tablet 00:00: TABLET BY [place] 00 MOUTH Medical TWICE Branch DAILY NEEDED FOR ANXIETY carBAMazepi 2022-0 Yes [id number] 200mg Take 2 [facility] ne 100 mg 1-19 tablets by [facility] of 12 hr 00:00: mouth at [facility] 00 bedtime. Medical Branch DULoxetine 2022-0 Yes [id number] 60mg Take 1 [facility] 60 mg 1-19 capsule by it[facility] of capsule 00:00: mouth [place] 00 every Medical morning. Branch furosemide 2022-0 Yes [id number] TAKE 1 [facility] 40 mg 1-19 TABLET BY it[facility] of tablet 00:00: MOUTH [place] 00 EVERY Medical MORNING Branch AND EVERY EVENING levothyroxi 2022-0 Yes [id number] 175ug Take 1 [facility] ne 175 mcg 1-19 tablet by [facility] of tablet 00:00: mouth [place] 00 every Medical morning. Branch KCL 10 mEq 2022-0 Yes [id number] 20meq Take 2 [facility] tablet 1-19 tablets by [facility] of 00:00: mouth in [place] 00 the Medical morning Branch and 2 tablets in the evening. Only take when taking lasix omeprazole 2022-0 Yes [id number] 40mg Take 1 [facility] 40 mg 1-19 capsule by it[facility] of capsule 00:00: mouth in [place] 00 the Medical morning. Branch ondansetron 2022-0 Yes [id number] TAKE 1 [facility] 4 mg tablet 1-19 TABLET BY it[facility] of 00:00: MOUTH [place] 00 EVERY 8 Medical HOURS Branch NEEDED FOR NAUSEA OR VOMITING QUEtiapine 2022-0 Yes [id number] 400mg Take 1 [facility] 400 mg 1-19 tablet by [facility] of tablet 00:00: mouth at [place] [address] bedtime. Medical ADDITIONAL Branch REFILLS PER PSYCHIATRY rosuvastati 2022-0 Yes [id number] 20mg Take 1 [facility] n 20 mg 1-19 tablet by it[facility] of tablet 00:00: mouth at [place] [address] bedtime. Medical Branch metoprolol 2022-0 Yes [id number] TAKE 1/2 [facility] tartrate 25 1-19 TABLET BY it[facility] of mg tablet 00:00: MOUTH [place] 00 TWICE Medical DAILY Branch gabapentin 2022-0 Yes [id number] 300mg Take 1 [facility] 300 mg 1-19 capsule by it[facility] of capsule 00:00: mouth in [place] 00 the Medical morning Branch and 1 capsule at noon and 1 capsule in the evening. busPIRone 0 Yes [id number] TAKE 1/2 [facility] 15 mg 1-19 TO 1 it[facility] of tablet 00:00: TABLET BY [place] 00 MOUTH Medical TWICE Branch DAILY NEEDED FOR ANXIETY carBAMazepi 2022-0 Yes [id number] 200mg Take 2 [facility] ne 100 mg 1-19 tablets by it[facility] of 12 hr 00:00: mouth at [facility] 00 bedtime. Medical Branch DULoxetine 2022-0 Yes [id number] 60mg Take 1 [facility] 60 mg 1-19 capsule by [facility] of capsule 00:00: mouth [place] 00 every Medical morning. Branch furosemide 2022-0 Yes [id number] TAKE 1 [facility] 40 mg 1-19 TABLET BY it[facility] of tablet 00:00: MOUTH [place] 00 EVERY Medical MORNING Branch AND EVERY EVENING levothyroxi 2022-0 Yes [id number] 175ug Take 1 [facility] ne 175 mcg 1-19 tablet by [facility] of tablet 00:00: mouth [place] 00 every Medical morning. Branch KCL 10 mEq 2022-0 Yes [id number] 20meq Take 2 [facility] tablet 1-19 tablets by [facility] of 00:00: mouth in [place] 00 the Medical morning Branch and 2 tablets in the evening. Only take when taking lasix omeprazole Yes [id number] 40mg Take 1 [facility] 40 mg 1-19 capsule by [facility] of capsule 00:00: mouth in [place] 00 the Medical morning. Branch ondansetron 0 Yes [id number] TAKE 1 [facility] 4 mg tablet 1-19 TABLET BY ity of 00:00: MOUTH [place] 00 EVERY 8 Medical HOURS Branch NEEDED FOR NAUSEA OR VOMITING QUEtiapine 2022-0 Yes [id number] 400mg Take 1 [facility] 400 mg 1-19 tablet by it[facility] of tablet 00:00: mouth at [place] [address] bedtime. Medical ADDITIONAL Branch REFILLS PER PSYCHIATRY rosuvastati 2022-0 Yes [id number] 20mg Take 1 [facility] n 20 mg 1-19 tablet by it[facility] of tablet 00:00: mouth at [place] [address] bedtime. Medical Branch metoprolol 2022-0 Yes [id number] TAKE 1/2 [facility] tartrate 25 1-19 TABLET BY it[facility] of mg tablet 00:00: MOUTH [place] [address] TWICE Medical DAILY Branch gabapentin 2022-0 Yes [id number] 300mg Take 1 [facility] 300 mg 1-19 capsule by it[facility] of capsule 00:00: mouth in [place] 00 the Medical morning Branch and 1 capsule at noon and 1 capsule in the evening. busPIRone 2022-0 Yes [id number] TAKE 1/2 [facility] 15 mg 1-19 TO 1 ity of tablet 00:00: TABLET BY [place] 00 MOUTH Medical TWICE Branch DAILY NEEDED FOR ANXIETY carBAMazepi 2022-0 Yes [id number] 200mg Take 2 [facility] ne 100 mg 1-19 tablets by it[facility] of 12 hr 00:00: mouth at [facility] 00 bedtime. Medical Branch DULoxetine 2022-0 Yes [id number] 60mg Take 1 [facility] 60 mg 1-19 capsule by it[facility] of capsule 00:00: mouth [place] [address] every Medical morning. Branch furosemide 2022-0 Yes [id number] TAKE 1 [facility] 40 mg 1-19 TABLET BY ity of tablet 00:00: MOUTH [place] 00 EVERY Medical MORNING Branch AND EVERY EVENING levothyroxi 2022-0 Yes [id number] 175ug Take 1 [facility] ne 175 mcg 1-19 tablet by it[facility] of tablet 00:00: mouth [place] [address] every Medical morning. Branch KCL 10 mEq 2022-0 Yes [id number] 20meq Take 2 [facility] tablet 1-19 tablets by it[facility] of 00:00: mouth in [place] 00 the Medical morning Branch and 2 tablets in the evening. Only take when taking lasix omeprazole 2022-0 Yes [id number] 40mg Take 1 [facility] 40 mg 1-19 capsule by it[facility] of capsule 00:00: mouth in [place] [address] the Medical morning. Branch ondansetron 2022-0 Yes [id number] TAKE 1 [facility] 4 mg tablet 1-19 TABLET BY ity of 00:00: MOUTH [place] 00 EVERY 8 Medical HOURS Branch NEEDED FOR NAUSEA OR VOMITING QUEtiapine 2022-0 Yes [id number] 400mg Take 1 [facility] 400 mg 1-19 tablet by it[facility] of tablet 00:00: mouth at [place] [address] bedtime. Medical ADDITIONAL Branch REFILLS PER PSYCHIATRY rosuvastati 2022-0 Yes [id number] 20mg Take 1 [facility] n 20 mg 1-19 tablet by it[facility] of tablet 00:00: mouth at [place] [address] bedtime. Medical Branch metoprolol 2022-0 Yes [id number] TAKE 1/2 [facility] tartrate 25 1-19 TABLET BY ity of mg tablet 00:00: MOUTH [place] 00 TWICE Medical DAILY Branch gabapentin 2022-0 Yes [id number] 300mg Take 1 [facility] 300 mg 1-19 capsule by it[facility] of capsule 00:00: mouth in [place] 00 the Medical morning Branch and 1 capsule at noon and 1 capsule in the evening. busPIRone Yes [id number] TAKE 1/2 [facility] 15 mg 1-19 TO 1 ity of tablet 00:00: TABLET BY [place] 00 MOUTH Medical TWICE Branch DAILY NEEDED FOR ANXIETY carBAMazepi 2022-0 Yes [id number] 200mg Take 2 [facility] ne 100 mg 1-19 tablets by ity of 12 hr 00:00: mouth at [facility] 00 bedtime. Medical Branch DULoxetine Yes [id number] 60mg Take 1 [facility] 60 mg 1-19 capsule by it[facility] of capsule 00:00: mouth [place] [address] every Medical morning. Branch furosemide Yes [id number] TAKE 1 [facility] 40 mg 1-19 TABLET BY ity of tablet 00:00: MOUTH [place] 00 EVERY Medical MORNING Branch AND EVERY EVENING levothyroxi 2022- Yes [id number] 175ug Take 1 [facility] ne 175 mcg 1-19 tablet by it[facility] of tablet 00:00: mouth [place] 00 every Medical morning. Branch KCL 10 mEq Yes [id number] 20meq Take 2 [facility] tablet 1-19 tablets by ity of 00:00: mouth in [place] 00 the Medical morning Branch and 2 tablets in the evening. Only take when taking lasix omeprazole 0 Yes [id number] 40mg Take 1 [facility] 40 mg 1-19 capsule by it[facility] of capsule 00:00: mouth in [place] 00 the Medical morning. Branch ondansetron Yes [id number] TAKE 1 [facility] 4 mg tablet 1-19 TABLET BY ity of 00:00: MOUTH [place] 00 EVERY 8 Medical HOURS Branch NEEDED FOR NAUSEA OR VOMITING QUEtiapine 2022-0 Yes [id number] 400mg Take 1 [facility] 400 mg 1-19 tablet by it[facility] of tablet 00:00: mouth at [place] [address] bedtime. Medical ADDITIONAL Branch REFILLS PER PSYCHIATRY rosuvastati 2022- Yes [id number] 20mg Take 1 [facility] n 20 mg 1-19 tablet by it[facility] of tablet 00:00: mouth at [place] [address] bedtime. Medical Branch metoprolol 2022-0 Yes [id number] TAKE 1/2 [facility] tartrate 25 1-19 TABLET BY ity of mg tablet 00:00: MOUTH [place] 00 TWICE Medical DAILY Branch gabapentin 2022-0 Yes [id number] 300mg Take 1 [facility] 300 mg 1-19 capsule by ity of capsule 00:00: mouth in [place] 00 the Medical morning Branch and 1 capsule at noon and 1 capsule in the evening. busPIRone 2022-0 Yes [id number] TAKE 1/2 [facility] 15 mg 1-19 TO 1 ity of tablet 00:00: TABLET BY [place] 00 MOUTH Medical TWICE Branch DAILY NEEDED FOR ANXIETY carBAMazepi 2022-0 Yes [id number] 200mg Take 2 [facility] ne 100 mg 1-19 tablets by ity of 12 hr 00:00: mouth at [facility] 00 bedtime. Medical Branch DULoxetine 2022-0 Yes [id number] 60mg Take 1 [facility] 60 mg 1-19 capsule by ity of capsule 00:00: mouth [place] [address] every Medical morning. Branch furosemide 2022-0 Yes [id number] TAKE 1 [facility] 40 mg 1-19 TABLET BY ity of tablet 00:00: MOUTH [place] 00 EVERY Medical MORNING Branch AND EVERY EVENING levothyroxi 2022-0 Yes [id number] 175ug Take 1 [facility] ne 175 mcg 1-19 tablet by ity of tablet 00:00: mouth [place] [address] every Medical morning. Branch KCL 10 mEq 2022-0 Yes [id number] 20meq Take 2 [facility] tablet 1-19 tablets by ity of 00:00: mouth in [place] 00 the Medical morning Branch and 2 tablets in the evening. Only take when taking lasix omeprazole 2022-0 Yes [id number] 40mg Take 1 [facility] 40 mg 1-19 capsule by ity of capsule 00:00: mouth in [place] 00 the Medical morning. Branch ondansetron 0 Yes [id number] TAKE 1 [facility] 4 mg tablet 1-19 TABLET BY ity of 00:00: MOUTH [place] [address] EVERY 8 Medical HOURS Branch NEEDED FOR NAUSEA OR VOMITING QUEtiapine 2022-0 Yes [id number] 400mg Take 1 [facility] 400 mg 1-19 tablet by ity of tablet 00:00: mouth at [place] [address] bedtime. Medical ADDITIONAL Branch REFILLS PER PSYCHIATRY rosuvastati 2022-0 Yes [id number] 20mg Take 1 [facility] n 20 mg 1-19 tablet by ity of tablet 00:00: mouth at [place] [address] bedtime. Medical Branch metoprolol 2022-0 Yes [id number] TAKE 1/2 [facility] tartrate 25 1-19 TABLET BY ity of mg tablet 00:00: MOUTH [place] 00 TWICE Medical DAILY Branch gabapentin 2022-0 Yes [id number] 300mg Take 1 [facility] 300 mg 1-19 capsule by ity of capsule 00:00: mouth in [place] 00 the Medical morning Branch and 1 capsule at noon and 1 capsule in the evening. busPIRone 2022-0 Yes [id number] TAKE 1/2 [facility] 15 mg 1-19 TO 1 ity of tablet 00:00: TABLET BY [place] 00 MOUTH Medical TWICE Branch DAILY NEEDED FOR ANXIETY carBAMazepi 2022-0 Yes [id number] 200mg Take 2 [facility] ne 100 mg 1-19 tablets by ity of 12 hr 00:00: mouth at [facility] 00 bedtime. Medical Branch DULoxetine 0 Yes [id number] 60mg Take 1 [facility] 60 mg 1-19 capsule by ity of capsule 00:00: mouth [place] [address] every Medical morning. Branch furosemide 2022-0 Yes [id number] TAKE 1 [facility] 40 mg 1-19 TABLET BY ity of tablet 00:00: MOUTH [place] 00 EVERY Medical MORNING Branch AND EVERY EVENING levothyroxi 2022-0 Yes [id number] 175ug Take 1 [facility] ne 175 mcg 1-19 tablet by ity of tablet 00:00: mouth [place] 00 every Medical morning. Branch KCL 10 mEq 2022-0 Yes [id number] 20meq Take 2 [facility] tablet 1-19 tablets by ity of 00:00: mouth in [place] 00 the Medical morning Branch and 2 tablets in the evening. Only take when taking lasix omeprazole 2022-0 Yes [id number] 40mg Take 1 [facility] 40 mg 1-19 capsule by ity of capsule 00:00: mouth in [place] [address] the Medical morning. Branch ondansetron 2022-0 Yes [id number] TAKE 1 [facility] 4 mg tablet 1-19 TABLET BY ity of 00:00: MOUTH [place] 00 EVERY 8 Medical HOURS Branch NEEDED FOR NAUSEA OR VOMITING QUEtiapine 2022-0 Yes [id number] 400mg Take 1 [facility] 400 mg 1-19 tablet by ity of tablet 00:00: mouth at [place] [address] bedtime. Medical ADDITIONAL Branch REFILLS PER PSYCHIATRY rosuvastati 2022-0 Yes [id number] 20mg Take 1 [facility] n 20 mg 1-19 tablet by ity of tablet 00:00: mouth at [place] [address] bedtime. Medical Branch metoprolol 2022-0 Yes [id number] TAKE 1/2 [facility] tartrate 25 1-19 TABLET BY ity of mg tablet 00:00: MOUTH [place] 00 TWICE Medical DAILY Branch gabapentin 2022-0 Yes [id number] 300mg Take 1 [facility] 300 mg 1-19 capsule by ity of capsule 00:00: mouth in [place] 00 the Medical morning Branch and 1 capsule at noon and 1 capsule in the evening. busPIRone 2022-0 Yes [id number] TAKE 1/2 [facility] 15 mg 1-19 TO 1 ity of tablet 00:00: TABLET BY [place] [address] MOUTH Medical TWICE Branch DAILY NEEDED FOR ANXIETY carBAMazepi 2022-0 Yes [id number] 200mg Take 2 [facility] ne 100 mg 1-19 tablets by ity of 12 hr 00:00: mouth at [facility] 00 bedtime. Medical Branch DULoxetine 2022-0 Yes [id number] 60mg Take 1 [facility] 60 mg 1-19 capsule by ity of capsule 00:00: mouth [place] 00 every Medical morning. Branch furosemide 2022-0 Yes [id number] TAKE 1 [facility] 40 mg 1-19 TABLET BY ity of tablet 00:00: MOUTH [place] 00 EVERY Medical MORNING Branch AND EVERY EVENING levothyroxi 2022-0 Yes [id number] 175ug Take 1 [facility] ne 175 mcg 1-19 tablet by ity of tablet 00:00: mouth [place] 00 every Medical morning. Branch KCL 10 mEq 2022-0 Yes [id number] 20meq Take 2 [facility] tablet 1-19 tablets by ity of 00:00: mouth in [place] 00 the Medical morning Branch and 2 tablets in the evening. Only take when taking lasix omeprazole 2022-0 Yes [id number] 40mg Take 1 [facility] 40 mg 1-19 capsule by ity of capsule 00:00: mouth in [place] 00 the Medical morning. Branch ondansetron 2022-0 Yes [id number] TAKE 1 [facility] 4 mg tablet 1-19 TABLET BY ity of 00:00: MOUTH [place] 00 EVERY 8 Medical HOURS Branch NEEDED FOR NAUSEA OR VOMITING QUEtiapine 2022-0 Yes [id number] 400mg Take 1 [facility] 400 mg 1-19 tablet by ity of tablet 00:00: mouth at [place] [address] bedtime. Medical ADDITIONAL Branch REFILLS PER PSYCHIATRY rosuvastati 2022-0 Yes [id number] 20mg Take 1 [facility] n 20 mg 1-19 tablet by it[facility] of tablet 00:00: mouth at [place] [address] bedtime. Medical Branch metoprolol 2022-0 Yes [id number] TAKE 1/2 [facility] tartrate 25 1-19 TABLET BY ity of mg tablet 00:00: MOUTH [place] 00 TWICE Medical DAILY Branch gabapentin 2022-0 Yes [id number] 300mg Take 1 [facility] 300 mg 1-19 capsule by ity of capsule 00:00: mouth in [place] 00 the Medical morning Branch and 1 capsule at noon and 1 capsule in the evening. busPIRone 2022-0 Yes [id number] TAKE 1/2 [facility] 15 mg 1-19 TO 1 ity of tablet 00:00: TABLET BY [place] [address] MOUTH Medical TWICE Branch DAILY NEEDED FOR ANXIETY carBAMazepi 2022-0 Yes [id number] 200mg Take 2 [facility] ne 100 mg 1-19 tablets by ity of 12 hr 00:00: mouth at [place] [address] bedtime. Medical Branch DULoxetine 2022-0 Yes [id number] 60mg Take 1 [facility] 60 mg 1-19 capsule by ity of capsule 00:00: mouth [place] [address] every Medical morning. Branch furosemide 2022-0 Yes [id number] TAKE 1 [facility] 40 mg 1-19 TABLET BY ity of tablet 00:00: MOUTH [place] 00 EVERY Medical MORNING Branch AND EVERY EVENING levothyroxi 2022-0 Yes [id number] 175ug Take 1 [facility] ne 175 mcg 1-19 tablet by ity of tablet 00:00: mouth [place] [address] every Medical morning. Branch KCL 10 mEq 2022-0 Yes [id number] 20meq Take 2 [facility] tablet 1-19 tablets by ity of 00:00: mouth in [place] 00 the Medical morning Branch and 2 tablets in the evening. Only take when taking lasix omeprazole 2022-0 Yes [id number] 40mg Take 1 [facility] 40 mg 1-19 capsule by ity of capsule 00:00: mouth in [place] [address] the Medical morning. Branch ondansetron 2022-0 Yes [id number] TAKE 1 [facility] 4 mg tablet 1-19 TABLET BY ity of 00:00: MOUTH [place] [address] EVERY 8 Medical HOURS Branch NEEDED FOR NAUSEA OR VOMITING QUEtiapine 2022-0 Yes [id number] 400mg Take 1 [facility] 400 mg 1-19 tablet by ity of tablet 00:00: mouth at [place] [address] bedtime. Medical ADDITIONAL Branch REFILLS PER PSYCHIATRY rosuvastati 2022-0 Yes [id number] 20mg Take 1 [facility] n 20 mg 1-19 tablet by it[facility] of tablet 00:00: mouth at [place] [address] bedtime. Medical Branch metoprolol 2022-0 Yes [id number] TAKE 1/2 [facility] tartrate 25 1-19 TABLET BY ity of mg tablet 00:00: MOUTH [place] 00 TWICE Medical DAILY Branch gabapentin 2022-0 Yes [id number] 300mg Take 1 [facility] 300 mg 1-19 capsule by ity of capsule 00:00: mouth in [place] 00 the Medical morning Branch and 1 capsule at noon and 1 capsule in the evening. busPIRone 2022-0 Yes [id number] TAKE 1/2 [facility] 15 mg 1-19 TO 1 ity of tablet 00:00: TABLET BY [place] 00 MOUTH Medical TWICE Branch DAILY NEEDED FOR ANXIETY carBAMazepi 2022-0 Yes [id number] 200mg Take 2 [facility] ne 100 mg 1-19 tablets by ity of 12 hr 00:00: mouth at [facility] 00 bedtime. Medical Branch DULoxetine 2022-0 Yes [id number] 60mg Take 1 [facility] 60 mg 1-19 capsule by ity of capsule 00:00: mouth [place] 00 every Medical morning. Branch furosemide 2022-0 Yes [id number] TAKE 1 [facility] 40 mg 1-19 TABLET BY ity of tablet 00:00: MOUTH [place] 00 EVERY Medical MORNING Branch AND EVERY EVENING levothyroxi 2022-0 Yes [id number] 175ug Take 1 [facility] ne 175 mcg 1-19 tablet by ity of tablet 00:00: mouth [place] 00 every Medical morning. Branch KCL 10 mEq 2022-0 Yes [id number] 20meq Take 2 [facility] tablet 1-19 tablets by ity of 00:00: mouth in [place] 00 the Medical morning Branch and 2 tablets in the evening. Only take when taking lasix omeprazole 2022-0 Yes [id number] 40mg Take 1 [facility] 40 mg 1-19 capsule by ity of capsule 00:00: mouth in [place] 00 the Medical morning. Branch ondansetron 2022-0 Yes [id number] TAKE 1 [facility] 4 mg tablet 1-19 TABLET BY ity of 00:00: MOUTH [place] 00 EVERY 8 Medical HOURS Branch NEEDED FOR NAUSEA OR VOMITING QUEtiapine 0 Yes [id number] 400mg Take 1 [facility] 400 mg 1-19 tablet by ity of tablet 00:00: mouth at [place] [address] bedtime. Medical ADDITIONAL Branch REFILLS PER PSYCHIATRY rosuvastati Yes [id number] 20mg Take 1 [facility] n 20 mg 1-19 tablet by ity of tablet 00:00: mouth at [place] [address] bedtime. Medical Branch metoprolol 0 Yes [id number] TAKE 1/2 [facility] tartrate 25 1-19 TABLET BY ity of mg tablet 00:00: MOUTH [place] 00 TWICE Medical DAILY Branch gabapentin 0 Yes [id number] 300mg Take 1 [facility] 300 mg 1-19 capsule by ity of capsule 00:00: mouth in [place] 00 the Medical morning Branch and 1 capsule at noon and 1 capsule in the evening. busPIRone Yes [id number] TAKE 1/2 [facility] 15 mg 1-19 TO 1 ity of tablet 00:00: TABLET BY [place] [address] MOUTH Medical TWICE Branch DAILY NEEDED FOR ANXIETY carBAMazepi Yes [id number] 200mg Take 2 [facility] ne 100 mg 1-19 tablets by ity of 12 hr 00:00: mouth at [facility] 00 bedtime. Medical Branch DULoxetine Yes [id number] 60mg Take 1 [facility] 60 mg 1-19 capsule by ity of capsule 00:00: mouth [place] 00 every Medical morning. Branch furosemide 0 Yes [id number] TAKE 1 [facility] 40 mg 1-19 TABLET BY ity of tablet 00:00: MOUTH [place] 00 EVERY Medical MORNING Branch AND EVERY EVENING levothyroxi 2022-0 Yes [id number] 175ug Take 1 [facility] ne 175 mcg 1-19 tablet by ity of tablet 00:00: mouth [place] 00 every Medical morning. Branch KCL 10 mEq 0 Yes [id number] 20meq Take 2 [facility] tablet 1-19 tablets by ity of 00:00: mouth in [place] 00 the Medical morning Branch and 2 tablets in the evening. Only take when taking lasix omeprazole 0 Yes [id number] 40mg Take 1 [facility] 40 mg 1-19 capsule by ity of capsule 00:00: mouth in [place] 00 the Medical morning. Branch ondansetron Yes [id number] TAKE 1 [facility] 4 mg tablet 1-19 TABLET BY ity of 00:00: MOUTH [place] 00 EVERY 8 Medical HOURS Branch NEEDED FOR NAUSEA OR VOMITING QUEtiapine 2022-0 Yes [id number] 400mg Take 1 [facility] 400 mg 1-19 tablet by ity of tablet 00:00: mouth at [place] [address] bedtime. Medical ADDITIONAL Branch REFILLS PER PSYCHIATRY rosuvastati 2022-0 Yes [id number] 20mg Take 1 [facility] n 20 mg 1-19 tablet by [facility] tablet 00:00: mouth at [place] [address] bedtime. Medical Branch metoprolol 2022-0 Yes [id number] TAKE 1/2 [facility] tartrate 25 1-19 TABLET BY [facility] mg tablet 00:00: MOUTH [place] 00 TWICE Medical DAILY Branch gabapentin 2022-0 Yes [id number] 300mg Take 1 [facility] 300 mg 1-19 capsule by [facility] capsule 00:00: mouth in [place] 00 the Medical morning Branch and 1 capsule at noon and 1 capsule in the evening. busPIRone 0 Yes [id number] TAKE 1/2 [facility] 15 mg 1-19 TO 1 [facility] tablet 00:00: TABLET BY [place] 00 MOUTH Medical TWICE Branch DAILY NEEDED FOR ANXIETY carBAMazepi 2022-0 Yes [id number] 200mg Take 2 [facility] ne 100 mg 1-19 tablets by [facility] of 12 hr 00:00: mouth at [facility] 00 bedtime. Medical Branch DULoxetine 2022-0 Yes [id number] 60mg Take 1 [facility] 60 mg 1-19 capsule by [facility] of capsule 00:00: mouth [place] 00 every Medical morning. Branch furosemide 2022-0 Yes [id number] TAKE 1 [facility] 40 mg 1-19 TABLET BY [facility] of tablet 00:00: MOUTH [place] 00 EVERY Medical MORNING Branch AND EVERY EVENING levothyroxi 2022-0 Yes [id number] 175ug Take 1 [facility] ne 175 mcg 1-19 tablet by [facility] of tablet 00:00: mouth [place] [address] every Medical morning. Branch KCL 10 mEq 2022-0 Yes [id number] 20meq Take 2 [facility] tablet 1-19 tablets by [facility] of 00:00: mouth in [place] 00 the Medical morning Branch and 2 tablets in the evening. Only take when taking lasix omeprazole 2022-0 Yes [id number] 40mg Take 1 [facility] 40 mg 1-19 capsule by [facility] of capsule 00:00: mouth in [place] 00 the Medical morning. Branch ondansetron 0 Yes [id number] TAKE 1 [facility] 4 mg tablet 1-19 TABLET BY [facility] of 00:00: MOUTH [place] 00 EVERY 8 Medical HOURS Branch NEEDED FOR NAUSEA OR VOMITING QUEtiapine 2022-0 Yes [id number] 400mg Take 1 [facility] 400 mg 1-19 tablet by [facility] of tablet 00:00: mouth at [place] [address] bedtime. Medical ADDITIONAL Branch REFILLS PER PSYCHIATRY rosuvastati 2022-0 Yes [id number] 20mg Take 1 [facility] n 20 mg 1-19 tablet by [facility] of tablet 00:00: mouth at [place] [address] bedtime. Medical Branch metoprolol 2022-0 Yes [id number] TAKE 1/2 [facility] tartrate 25 1-19 TABLET BY [facility] of mg tablet 00:00: MOUTH [place] 00 TWICE Medical DAILY Branch gabapentin 2022-0 Yes [id number] 300mg Take 1 [facility] 300 mg 1-19 capsule by [facility] of capsule 00:00: mouth in [place] 00 the Medical morning Branch and 1 capsule at noon and 1 capsule in the evening. busPIRone 0 Yes [id number] TAKE 1/2 [facility] 15 mg 1-19 TO 1 [facility] of tablet 00:00: TABLET BY [place] 00 MOUTH Medical TWICE Branch DAILY NEEDED FOR ANXIETY carBAMazepi 0 Yes [id number] 200mg Take 2 [facility] ne 100 mg 1-19 tablets by [facility] of 12 hr 00:00: mouth at [facility] 00 bedtime. Medical Branch DULoxetine 2022-0 Yes [id number] 60mg Take 1 [facility] 60 mg 1-19 capsule by [facility] of capsule 00:00: mouth [place] 00 every Medical morning. Branch furosemide 2022-0 Yes [id number] TAKE 1 [facility] 40 mg 1-19 TABLET BY [facility] of tablet 00:00: MOUTH [place] 00 EVERY Medical MORNING Branch AND EVERY EVENING levothyroxi 2022-0 Yes [id number] 175ug Take 1 [facility] ne 175 mcg 1-19 tablet by [facility] of tablet 00:00: mouth [place] 00 every Medical morning. Branch KCL 10 mEq 2022-0 Yes [id number] 20meq Take 2 [facility] tablet 1-19 tablets by [facility] of 00:00: mouth in [place] 00 the Medical morning Branch and 2 tablets in the evening. Only take when taking lasix omeprazole 2022-0 Yes [id number] 40mg Take 1 [facility] 40 mg 1-19 capsule by [facility] of capsule 00:00: mouth in [place] 00 the Medical morning. Branch ondansetron 2022- Yes [id number] TAKE 1 [facility] 4 mg tablet 1-19 TABLET BY it[facility] of 00:00: MOUTH [place] 00 EVERY 8 Medical HOURS Branch NEEDED FOR NAUSEA OR VOMITING QUEtiapine 2022-0 Yes [id number] 400mg Take 1 [facility] 400 mg 1-19 tablet by [facility] of tablet 00:00: mouth at [place] [address] bedtime. Medical ADDITIONAL Branch REFILLS PER PSYCHIATRY rosuvastati 2022-0 Yes [id number] 20mg Take 1 [facility] n 20 mg 1-19 tablet by [facility] of tablet 00:00: mouth at [place] [address] bedtime. Medical Branch metoprolol 2022-0 Yes [id number] TAKE 1/2 [facility] tartrate 25 1-19 TABLET BY it[facility] of mg tablet 00:00: MOUTH [place] [address] TWICE Medical DAILY Branch gabapentin 2022-0 Yes [id number] 300mg Take 1 [facility] 300 mg 1-19 capsule by [facility] of capsule 00:00: mouth in [place] 00 the Medical morning Branch and 1 capsule at noon and 1 capsule in the evening. busPIRone 2022-0 Yes [id number] TAKE 1/2 [facility] 15 mg 1-19 TO 1 [facility] of tablet 00:00: TABLET BY [place] [address] MOUTH Medical TWICE Branch DAILY NEEDED FOR ANXIETY carBAMazepi 2022-0 Yes [id number] 200mg Take 2 [facility] ne 100 mg 1-19 tablets by it[facility] of 12 hr 00:00: mouth at [facility] 00 bedtime. Medical Branch DULoxetine 2022-0 Yes [id number] 60mg Take 1 [facility] 60 mg 1-19 capsule by [facility] of capsule 00:00: mouth [place] [address] every Medical morning. Branch furosemide 2022-0 Yes [id number] TAKE 1 [facility] 40 mg 1-19 TABLET BY it[facility] of tablet 00:00: MOUTH [place] 00 EVERY Medical MORNING Branch AND EVERY EVENING levothyroxi 2022-0 Yes [id number] 175ug Take 1 [facility] ne 175 mcg 1-19 tablet by it[facility] of tablet 00:00: mouth [place] [address] every Medical morning. Branch KCL 10 mEq 2022-0 Yes [id number] 20meq Take 2 [facility] tablet 1-19 tablets by it[facility] of 00:00: mouth in [place] 00 the Medical morning Branch and 2 tablets in the evening. Only take when taking lasix omeprazole 2022-0 Yes [id number] 40mg Take 1 [facility] 40 mg 1-19 capsule by [facility] of capsule 00:00: mouth in [place] 00 the Medical morning. Branch ondansetron 2022-0 Yes [id number] TAKE 1 [facility] 4 mg tablet 1-19 TABLET BY [facility] of 00:00: MOUTH [place] 00 EVERY 8 Medical HOURS Branch NEEDED FOR NAUSEA OR VOMITING QUEtiapine 2022-0 Yes [id number] 400mg Take 1 [facility] 400 mg 1-19 tablet by [facility] of tablet 00:00: mouth at [place] [address] bedtime. Medical ADDITIONAL Branch REFILLS PER PSYCHIATRY rosuvastati 2022-0 Yes [id number] 20mg Take 1 [facility] n 20 mg 1-19 tablet by [facility] of tablet 00:00: mouth at [place] [address] bedtime. Medical Branch metoprolol 2022-0 Yes [id number] TAKE 1/2 [facility] tartrate 25 1-19 TABLET BY [facility] of mg tablet 00:00: MOUTH [place] 00 TWICE Medical DAILY Branch gabapentin 2022-0 Yes [id number] 300mg Take 1 [facility] 300 mg 1-19 capsule by [facility] of capsule 00:00: mouth in [place] 00 the Medical morning Branch and 1 capsule at noon and 1 capsule in the evening. busPIRone 2022-0 Yes [id number] TAKE 1/2 [facility] 15 mg 1-19 TO 1 it[facility] of tablet 00:00: TABLET BY [place] 00 MOUTH Medical TWICE Branch DAILY NEEDED FOR ANXIETY carBAMazepi 2022-0 Yes [id number] 200mg Take 2 [facility] ne 100 mg 1-19 tablets by [facility] of 12 hr 00:00: mouth at [place] [address] bedtime. Medical Branch DULoxetine 2022-0 Yes [id number] 60mg Take 1 [facility] 60 mg 1-19 capsule by [facility] of capsule 00:00: mouth [place] [address] every Medical morning. Branch furosemide 2022-0 Yes [id number] TAKE 1 [facility] 40 mg 1-19 TABLET BY it[facility] of tablet 00:00: MOUTH [place] 00 EVERY Medical MORNING Branch AND EVERY EVENING levothyroxi 2022-0 Yes [id number] 175ug Take 1 [facility] ne 175 mcg 1-19 tablet by it[facility] of tablet 00:00: mouth [place] [address] every Medical morning. Branch KCL 10 mEq 2022-0 Yes [id number] 20meq Take 2 [facility] tablet 1-19 tablets by it[facility] of 00:00: mouth in [place] 00 the Medical morning Branch and 2 tablets in the evening. Only take when taking lasix omeprazole 2022-0 Yes [id number] 40mg Take 1 [facility] 40 mg 1-19 capsule by [facility] of capsule 00:00: mouth in [place] 00 the Medical morning. Branch ondansetron 2022-0 Yes [id number] TAKE 1 [facility] 4 mg tablet 1-19 TABLET BY it[facility] of 00:00: MOUTH [place] [address] EVERY 8 Medical HOURS Branch NEEDED FOR NAUSEA OR VOMITING QUEtiapine 2022-0 Yes [id number] 400mg Take 1 [facility] 400 mg 1-19 tablet by [facility] of tablet 00:00: mouth at [place] [address] bedtime. Medical ADDITIONAL Branch REFILLS PER PSYCHIATRY rosuvastati 2022-0 Yes [id number] 20mg Take 1 [facility] n 20 mg 1-19 tablet by [facility] of tablet 00:00: mouth at [place] [address] bedtime. Medical Branch metoprolol 2022-0 Yes [id number] TAKE 1/2 [facility] tartrate 25 1-19 TABLET BY [facility] of mg tablet 00:00: MOUTH [place] 00 TWICE Medical DAILY Branch gabapentin 2022-0 Yes [id number] 300mg Take 1 [facility] 300 mg 1-19 capsule by [facility] of capsule 00:00: mouth in [place] 00 the Medical morning Branch and 1 capsule at noon and 1 capsule in the evening. busPIRone 2022-0 Yes [id number] TAKE 1/2 [facility] 15 mg 1-19 TO 1 it[facility] of tablet 00:00: TABLET BY [place] 00 MOUTH Medical TWICE Branch DAILY NEEDED FOR ANXIETY carBAMazepi 2022-0 Yes [id number] 200mg Take 2 [facility] ne 100 mg 1-19 tablets by it[facility] of 12 hr 00:00: mouth at [facility] 00 bedtime. Medical Branch DULoxetine 2022-0 Yes [id number] 60mg Take 1 [facility] 60 mg 1-19 capsule by [facility] of capsule 00:00: mouth [place] [address] every Medical morning. Branch furosemide 2022-0 Yes [id number] TAKE 1 [facility] 40 mg 1-19 TABLET BY ity of tablet 00:00: MOUTH [place] [address] EVERY Medical MORNING Branch AND EVERY EVENING levothyroxi 2022-0 Yes [id number] 175ug Take 1 [facility] ne 175 mcg 1-19 tablet by it[facility] of tablet 00:00: mouth [place] [address] every Medical morning. Branch KCL 10 mEq 2022-0 Yes [id number] 20meq Take 2 [facility] tablet 1-19 tablets by ity of 00:00: mouth in [place] 00 the Medical morning Branch and 2 tablets in the evening. Only take when taking lasix omeprazole 2022-0 Yes [id number] 40mg Take 1 [facility] 40 mg 1-19 capsule by it[facility] of capsule 00:00: mouth in [place] [address] the Medical morning. Branch ondansetron 2022-0 Yes [id number] TAKE 1 [facility] 4 mg tablet 1-19 TABLET BY ity of 00:00: MOUTH [place] 00 EVERY 8 Medical HOURS Branch NEEDED FOR NAUSEA OR VOMITING QUEtiapine 2022-0 Yes [id number] 400mg Take 1 [facility] 400 mg 1-19 tablet by it[facility] of tablet 00:00: mouth at [place] [address] bedtime. Medical ADDITIONAL Branch REFILLS PER PSYCHIATRY rosuvastati 2022-0 Yes [id number] 20mg Take 1 [facility] n 20 mg 1-19 tablet by it[facility] of tablet 00:00: mouth at [place] [address] bedtime. Medical Branch metoprolol 2022-0 Yes [id number] TAKE 1/2 [facility] tartrate 25 1-19 TABLET BY ity of mg tablet 00:00: MOUTH [place] [address] TWICE Medical DAILY Branch gabapentin 2022-0 Yes [id number] 300mg Take 1 [facility] 300 mg 1-19 capsule by it[facility] of capsule 00:00: mouth in [place] 00 the Medical morning Branch and 1 capsule at noon and 1 capsule in the evening. busPIRone 2022-0 Yes [id number] TAKE 1/2 [facility] 15 mg 1-19 TO 1 ity of tablet 00:00: TABLET BY [place] 00 MOUTH Medical TWICE Branch DAILY NEEDED FOR ANXIETY carBAMazepi 2022-0 Yes [id number] 200mg Take 2 [facility] ne 100 mg 1-19 tablets by ity of 12 hr 00:00: mouth at [facility] 00 bedtime. Medical Branch DULoxetine 2022-0 Yes [id number] 60mg Take 1 [facility] 60 mg 1-19 capsule by it[facility] of capsule 00:00: mouth [place] [address] every Medical morning. Branch furosemide 2022-0 Yes [id number] TAKE 1 [facility] 40 mg 1-19 TABLET BY ity of tablet 00:00: MOUTH [place] [address] EVERY Medical MORNING Branch AND EVERY EVENING levothyroxi 2022-0 Yes [id number] 175ug Take 1 [facility] ne 175 mcg 1-19 tablet by it[facility] of tablet 00:00: mouth [place] 00 every Medical morning. Branch KCL 10 mEq 2022-0 Yes [id number] 20meq Take 2 [facility] tablet 1-19 tablets by ity of 00:00: mouth in [place] 00 the Medical morning Branch and 2 tablets in the evening. Only take when taking lasix omeprazole 2022-0 Yes [id number] 40mg Take 1 [facility] 40 mg 1-19 capsule by it[facility] of capsule 00:00: mouth in [place] 00 the Medical morning. Branch ondansetron 2022-0 Yes [id number] TAKE 1 [facility] 4 mg tablet 1-19 TABLET BY ity of 00:00: MOUTH [place] 00 EVERY 8 Medical HOURS Branch NEEDED FOR NAUSEA OR VOMITING QUEtiapine 2022-0 Yes [id number] 400mg Take 1 [facility] 400 mg 1-19 tablet by it[facility] of tablet 00:00: mouth at [place] [address] bedtime. Medical ADDITIONAL Branch REFILLS PER PSYCHIATRY rosuvastati 2022-0 Yes [id number] 20mg Take 1 [facility] n 20 mg 1-19 tablet by ity of tablet 00:00: mouth at [place] [address] bedtime. Medical Branch metoprolol 2022-0 Yes [id number] TAKE 1/2 [facility] tartrate 25 1-19 TABLET BY ity of mg tablet 00:00: MOUTH [place] 00 TWICE Medical DAILY Branch gabapentin 2022-0 Yes [id number] 300mg Take 1 [facility] 300 mg 1-19 capsule by ity of capsule 00:00: mouth in [place] 00 the Medical morning Branch and 1 capsule at noon and 1 capsule in the evening. busPIRone 2022-0 Yes [id number] TAKE 1/2 [facility] 15 mg 1-19 TO 1 ity of tablet 00:00: TABLET BY [place] 00 MOUTH Medical TWICE Branch DAILY NEEDED FOR ANXIETY carBAMazepi 2022-0 Yes [id number] 200mg Take 2 [facility] ne 100 mg 1-19 tablets by ity of 12 hr 00:00: mouth at [facility] 00 bedtime. Medical Branch DULoxetine 2022-0 Yes [id number] 60mg Take 1 [facility] 60 mg 1-19 capsule by it[facility] of capsule 00:00: mouth [place] [address] every Medical morning. Branch furosemide 2022-0 Yes [id number] TAKE 1 [facility] 40 mg 1-19 TABLET BY ity of tablet 00:00: MOUTH [place] 00 EVERY Medical MORNING Branch AND EVERY EVENING levothyroxi 2022-0 Yes [id number] 175ug Take 1 [facility] ne 175 mcg 1-19 tablet by ity of tablet 00:00: mouth [place] 00 every Medical morning. Branch KCL 10 mEq 2022-0 Yes [id number] 20meq Take 2 [facility] tablet 1-19 tablets by ity of 00:00: mouth in [place] 00 the Medical morning Branch and 2 tablets in the evening. Only take when taking lasix omeprazole 2022-0 Yes [id number] 40mg Take 1 [facility] 40 mg 1-19 capsule by it[facility] of capsule 00:00: mouth in [place] 00 the Medical morning. Branch ondansetron Yes [id number] TAKE 1 [facility] 4 mg tablet 1-19 TABLET BY ity of 00:00: MOUTH [place] 00 EVERY 8 Medical HOURS Branch NEEDED FOR NAUSEA OR VOMITING QUEtiapine 2022-0 Yes [id number] 400mg Take 1 [facility] 400 mg 1-19 tablet by ity of tablet 00:00: mouth at [place] [address] bedtime. Medical ADDITIONAL Branch REFILLS PER PSYCHIATRY rosuvastati 2022- Yes [id number] 20mg Take 1 [facility] n 20 mg 1-19 tablet by ity of tablet 00:00: mouth at [place] [address] bedtime. Medical Branch metoprolol 2022-0 Yes [id number] TAKE 1/2 [facility] tartrate 25 1-19 TABLET BY ity of mg tablet 00:00: MOUTH [place] 00 TWICE Medical DAILY Branch gabapentin 2022-0 Yes [id number] 300mg Take 1 [facility] 300 mg 1-19 capsule by ity of capsule 00:00: mouth in [place] 00 the Medical morning Branch and 1 capsule at noon and 1 capsule in the evening. busPIRone 2022-0 Yes [id number] TAKE 1/2 [facility] 15 mg 1-19 TO 1 ity of tablet 00:00: TABLET BY [place] 00 MOUTH Medical TWICE Branch DAILY NEEDED FOR ANXIETY carBAMazepi 2022-0 Yes [id number] 200mg Take 2 [facility] ne 100 mg 1-19 tablets by ity of 12 hr 00:00: mouth at [facility] 00 bedtime. Medical Branch DULoxetine 2022-0 Yes [id number] 60mg Take 1 [facility] 60 mg 1-19 capsule by ity of capsule 00:00: mouth [place] [address] every Medical morning. Branch furosemide 2022-0 Yes [id number] TAKE 1 [facility] 40 mg 1-19 TABLET BY ity of tablet 00:00: MOUTH [place] 00 EVERY Medical MORNING Branch AND EVERY EVENING levothyroxi 2022-0 Yes [id number] 175ug Take 1 [facility] ne 175 mcg 1-19 tablet by ity of tablet 00:00: mouth [place] [address] every Medical morning. Branch KCL 10 mEq 2022-0 Yes [id number] 20meq Take 2 [facility] tablet 1-19 tablets by ity of 00:00: mouth in [place] 00 the Medical morning Branch and 2 tablets in the evening. Only take when taking lasix omeprazole 2022-0 Yes [id number] 40mg Take 1 [facility] 40 mg 1-19 capsule by it[facility] of capsule 00:00: mouth in [place] [address] the Medical morning. Branch ondansetron 2022-0 Yes [id number] TAKE 1 [facility] 4 mg tablet 1-19 TABLET BY ity of 00:00: MOUTH [place] [address] EVERY 8 Medical HOURS Branch NEEDED FOR NAUSEA OR VOMITING QUEtiapine 2022-0 Yes [id number] 400mg Take 1 [facility] 400 mg 1-19 tablet by ity of tablet 00:00: mouth at [place] [address] bedtime. Medical ADDITIONAL Branch REFILLS PER PSYCHIATRY rosuvastati 2022-0 Yes [id number] 20mg Take 1 [facility] n 20 mg 1-19 tablet by ity of tablet 00:00: mouth at [place] [address] bedtime. Medical Branch metoprolol 2022-0 Yes [id number] TAKE 1/2 [facility] tartrate 25 1-19 TABLET BY ity of mg tablet 00:00: MOUTH [place] [address] TWICE Medical DAILY Branch gabapentin 2022-0 Yes [id number] 300mg Take 1 [facility] 300 mg 1-19 capsule by ity of capsule 00:00: mouth in [place] 00 the Medical morning Branch and 1 capsule at noon and 1 capsule in the evening. busPIRone 2022-0 Yes [id number] TAKE 1/2 [facility] 15 mg 1-19 TO 1 ity of tablet 00:00: TABLET BY [place] [address] MOUTH Medical TWICE Branch DAILY NEEDED FOR ANXIETY carBAMazepi 2022-0 Yes [id number] 200mg Take 2 [facility] ne 100 mg 1-19 tablets by ity of 12 hr 00:00: mouth at [facility] 00 bedtime. Medical Branch DULoxetine 2022-0 Yes [id number] 60mg Take 1 [facility] 60 mg 1-19 capsule by ity of capsule 00:00: mouth [place] 00 every Medical morning. Branch furosemide 2022-0 Yes [id number] TAKE 1 [facility] 40 mg 1-19 TABLET BY ity of tablet 00:00: MOUTH [place] 00 EVERY Medical MORNING Branch AND EVERY EVENING levothyroxi 2022-0 Yes [id number] 175ug Take 1 [facility] ne 175 mcg 1-19 tablet by ity of tablet 00:00: mouth [place] [address] every Medical morning. Branch KCL 10 mEq 2022-0 Yes [id number] 20meq Take 2 [facility] tablet 1-19 tablets by ity of 00:00: mouth in [place] 00 the Medical morning Branch and 2 tablets in the evening. Only take when taking lasix omeprazole 2022-0 Yes [id number] 40mg Take 1 [facility] 40 mg 1-19 capsule by ity of capsule 00:00: mouth in [place] [address] the Medical morning. Branch ondansetron 2022-0 Yes [id number] TAKE 1 [facility] 4 mg tablet 1-19 TABLET BY ity of 00:00: MOUTH [place] [address] EVERY 8 Medical HOURS Branch NEEDED FOR NAUSEA OR VOMITING QUEtiapine 2022-0 Yes [id number] 400mg Take 1 [facility] 400 mg 1-19 tablet by ity of tablet 00:00: mouth at [place] [address] bedtime. Medical ADDITIONAL Branch REFILLS PER PSYCHIATRY rosuvastati 2022-0 Yes [id number] 20mg Take 1 [facility] n 20 mg 1-19 tablet by ity of tablet 00:00: mouth at [place] [address] bedtime. Medical Branch metoprolol 2022-0 Yes [id number] TAKE 1/2 [facility] tartrate 25 1-19 TABLET BY ity of mg tablet 00:00: MOUTH [place] [address] TWICE Medical DAILY Branch gabapentin 2022-0 Yes [id number] 300mg Take 1 [facility] 300 mg 1-19 capsule by it[facility] of capsule 00:00: mouth in [place] [address] the Medical morning Branch and 1 capsule at noon and 1 capsule in the evening. busPIRone 2022-0 Yes [id number] TAKE 1/2 [facility] 15 mg 1-19 TO 1 ity of tablet 00:00: TABLET BY [place] [address] MOUTH Medical TWICE Branch DAILY NEEDED FOR ANXIETY carBAMazepi 2022-0 Yes [id number] 200mg Take 2 [facility] ne 100 mg 1-19 tablets by ity of 12 hr 00:00: mouth at [place] [address] bedtime. Medical Branch DULoxetine 2023-0 Yes [id number] 60mg Take 1 [facility] 60 mg 1-19 capsule by [facility] of capsule 00:00: mouth [place] 00 every Medical morning. Branch furosemide 2022-0 Yes [id number] TAKE 1 [facility] 40 mg 1-19 TABLET BY ity of tablet 00:00: MOUTH [place] 00 EVERY Medical MORNING Branch AND EVERY EVENING levothyroxi 2022-0 Yes [id number] 175ug Take 1 [facility] ne 175 mcg 1-19 tablet by it[facility] of tablet 00:00: mouth [place] 00 every Medical morning. Branch KCL 10 mEq 2022-0 Yes [id number] 20meq Take 2 [facility] tablet 1-19 tablets by ity of 00:00: mouth in [place] 00 the Medical morning Branch and 2 tablets in the evening. Only take when taking lasix omeprazole 2022-0 Yes [id number] 40mg Take 1 [facility] 40 mg 1-19 capsule by [facility] of capsule 00:00: mouth in [place] [address] the Medical morning. Branch ondansetron 2022-0 Yes [id number] TAKE 1 [facility] 4 mg tablet 1-19 TABLET BY ity of 00:00: MOUTH [place] 00 EVERY 8 Medical HOURS Branch NEEDED FOR NAUSEA OR VOMITING QUEtiapine 0 Yes [id number] 400mg Take 1 [facility] 400 mg 1-19 tablet by ity of tablet 00:00: mouth at [place] [address] bedtime. Medical ADDITIONAL Branch REFILLS PER PSYCHIATRY rosuvastati 0 Yes [id number] 20mg Take 1 [facility] n 20 mg 1-19 tablet by ity of tablet 00:00: mouth at [place] [address] bedtime. Medical Branch metoprolol 2022-0 Yes [id number] TAKE 1/2 [facility] tartrate 25 1-19 TABLET BY ity of mg tablet 00:00: MOUTH [place] 00 TWICE Medical DAILY Branch gabapentin 2022-0 Yes [id number] 300mg Take 1 [facility] 300 mg 1-19 capsule by ity of capsule 00:00: mouth in [place] 00 the Medical morning Branch and 1 capsule at noon and 1 capsule in the evening. busPIRone 2022-0 Yes [id number] TAKE 1/2 [facility] 15 mg 1-19 TO 1 ity of tablet 00:00: TABLET BY [place] [address] MOUTH Medical TWICE Branch DAILY NEEDED FOR ANXIETY carBAMazepi 2022-0 Yes [id number] 200mg Take 2 [facility] ne 100 mg 1-19 tablets by ity of 12 hr 00:00: mouth at [facility] 00 bedtime. Medical Branch DULoxetine 2022-0 Yes [id number] 60mg Take 1 [facility] 60 mg 1-19 capsule by [facility] of capsule 00:00: mouth [place] [address] every Medical morning. Branch furosemide 2022-0 Yes [id number] TAKE 1 [facility] 40 mg 1-19 TABLET BY ity of tablet 00:00: MOUTH [place] 00 EVERY Medical MORNING Branch AND EVERY EVENING levothyroxi 2022-0 Yes [id number] 175ug Take 1 [facility] ne 175 mcg 1-19 tablet by ity of tablet 00:00: mouth [place] [address] every Medical morning. Branch KCL 10 mEq 2022-0 Yes [id number] 20meq Take 2 [facility] tablet 1-19 tablets by ity of 00:00: mouth in [place] 00 the Medical morning Branch and 2 tablets in the evening. Only take when taking lasix omeprazole 2022-0 Yes [id number] 40mg Take 1 [facility] 40 mg 1-19 capsule by ity of capsule 00:00: mouth in [place] [address] the Medical morning. Branch ondansetron 2022-0 Yes [id number] TAKE 1 [facility] 4 mg tablet 1-19 TABLET BY ity of 00:00: MOUTH [place] 00 EVERY 8 Medical HOURS Branch NEEDED FOR NAUSEA OR VOMITING QUEtiapine 2022-0 Yes [id number] 400mg Take 1 [facility] 400 mg 1-19 tablet by ity of tablet 00:00: mouth at [place] [address] bedtime. Medical ADDITIONAL Branch REFILLS PER PSYCHIATRY rosuvastati 2022-0 Yes [id number] 20mg Take 1 [facility] n 20 mg 1-19 tablet by ity of tablet 00:00: mouth at [place] [address] bedtime. Medical Branch metoprolol 2022-0 Yes [id number] TAKE 1/2 [facility] tartrate 25 1-19 TABLET BY ity of mg tablet 00:00: MOUTH [place] [address] TWICE Medical DAILY Branch gabapentin 2022-0 Yes [id number] 300mg Take 1 [facility] 300 mg 1-19 capsule by ity of capsule 00:00: mouth in [place] 00 the Medical morning Branch and 1 capsule at noon and 1 capsule in the evening. busPIRone 2022-0 Yes [id number] TAKE 1/2 [facility] 15 mg 1-19 TO 1 ity of tablet 00:00: TABLET BY [place] 00 MOUTH Medical TWICE Branch DAILY NEEDED FOR ANXIETY carBAMazepi 2022-0 Yes [id number] 200mg Take 2 [facility] ne 100 mg 1-19 tablets by ity of 12 hr 00:00: mouth at [facility] 00 bedtime. Medical Branch DULoxetine 2022-0 Yes [id number] 60mg Take 1 [facility] 60 mg 1-19 capsule by ity of capsule 00:00: mouth [place] 00 every Medical morning. Branch furosemide 2022-0 Yes [id number] TAKE 1 [facility] 40 mg 1-19 TABLET BY ity of tablet 00:00: MOUTH [place] 00 EVERY Medical MORNING Branch AND EVERY EVENING levothyroxi 2022-0 Yes [id number] 175ug Take 1 [facility] ne 175 mcg 1-19 tablet by ity of tablet 00:00: mouth [place] 00 every Medical morning. Branch KCL 10 mEq 2022-0 Yes [id number] 20meq Take 2 [facility] tablet 1-19 tablets by ity of 00:00: mouth in [place] 00 the Medical morning Branch and 2 tablets in the evening. Only take when taking lasix omeprazole 0 Yes [id number] 40mg Take 1 [facility] 40 mg 1-19 capsule by ity of capsule 00:00: mouth in [place] 00 the Medical morning. Branch ondansetron Yes [id number] TAKE 1 [facility] 4 mg tablet 1-19 TABLET BY ity of 00:00: MOUTH [place] 00 EVERY 8 Medical HOURS Branch NEEDED FOR NAUSEA OR VOMITING QUEtiapine 2022-0 Yes [id number] 400mg Take 1 [facility] 400 mg 1-19 tablet by ity of tablet 00:00: mouth at [place] [address] bedtime. Medical ADDITIONAL Branch REFILLS PER PSYCHIATRY rosuvastati 2022-0 Yes [id number] 20mg Take 1 [facility] n 20 mg 1-19 tablet by ity of tablet 00:00: mouth at [place] [address] bedtime. Medical Branch metoprolol 2022-0 Yes [id number] TAKE 1/2 [facility] tartrate 25 1-19 TABLET BY ity of mg tablet 00:00: MOUTH [place] 00 TWICE Medical DAILY Branch gabapentin 2022-0 Yes [id number] 300mg Take 1 [facility] 300 mg 1-19 capsule by it[facility] of capsule 00:00: mouth in [place] 00 the Medical morning Branch and 1 capsule at noon and 1 capsule in the evening. busPIRone 2022-0 Yes [id number] TAKE 1/2 [facility] 15 mg 1-19 TO 1 [facility] of tablet 00:00: TABLET BY [place] 00 MOUTH Medical TWICE Branch DAILY NEEDED FOR ANXIETY carBAMazepi 2022-0 Yes [id number] 200mg Take 2 [facility] ne 100 mg 1-19 tablets by [facility] of 12 hr 00:00: mouth at [facility] 00 bedtime. Medical Branch DULoxetine 2022-0 Yes [id number] 60mg Take 1 [facility] 60 mg 1-19 capsule by [facility] of capsule 00:00: mouth [place] 00 every Medical morning. Branch furosemide 2022-0 Yes [id number] TAKE 1 [facility] 40 mg 1-19 TABLET BY [facility] of tablet 00:00: MOUTH [place] 00 EVERY Medical MORNING Branch AND EVERY EVENING levothyroxi 2022-0 Yes [id number] 175ug Take 1 [facility] ne 175 mcg 1-19 tablet by it[facility] of tablet 00:00: mouth [place] [address] every Medical morning. Branch KCL 10 mEq 2022-0 Yes [id number] 20meq Take 2 [facility] tablet 1-19 tablets by it[facility] of 00:00: mouth in [place] 00 the Medical morning Branch and 2 tablets in the evening. Only take when taking lasix omeprazole 2022-0 Yes [id number] 40mg Take 1 [facility] 40 mg 1-19 capsule by [facility] of capsule 00:00: mouth in [place] [address] the Medical morning. Branch ondansetron 2022-0 Yes [id number] TAKE 1 [facility] 4 mg tablet 1-19 TABLET BY it[facility] of 00:00: MOUTH [place] 00 EVERY 8 Medical HOURS Branch NEEDED FOR NAUSEA OR VOMITING QUEtiapine 2022-0 Yes [id number] 400mg Take 1 [facility] 400 mg 1-19 tablet by [facility] of tablet 00:00: mouth at [place] [address] bedtime. Medical ADDITIONAL Branch REFILLS PER PSYCHIATRY rosuvastati 2022-0 Yes [id number] 20mg Take 1 [facility] n 20 mg 1-19 tablet by [facility] of tablet 00:00: mouth at [place] [address] bedtime. Medical Branch metoprolol 2022-0 Yes [id number] TAKE 1/2 [facility] tartrate 25 1-19 TABLET BY it[facility] of mg tablet 00:00: MOUTH [place] 00 TWICE Medical DAILY Branch gabapentin 2022-0 Yes [id number] 300mg Take 1 [facility] 300 mg 1-19 capsule by [facility] of capsule 00:00: mouth in [place] 00 the Medical morning Branch and 1 capsule at noon and 1 capsule in the evening. busPIRone 2022-0 Yes [id number] TAKE 1/2 [facility] 15 mg 1-19 TO 1 [facility] of tablet 00:00: TABLET BY [place] 00 MOUTH Medical TWICE Branch DAILY NEEDED FOR ANXIETY carBAMazepi 2022-0 Yes [id number] 200mg Take 2 [facility] ne 100 mg 1-19 tablets by it[facility] of 12 hr 00:00: mouth at [facility] 00 bedtime. Medical Branch DULoxetine 2022-0 Yes [id number] 60mg Take 1 [facility] 60 mg 1-19 capsule by [facility] of capsule 00:00: mouth [place] 00 every Medical morning. Branch furosemide 2022-0 Yes [id number] TAKE 1 [facility] 40 mg 1-19 TABLET BY [facility] of tablet 00:00: MOUTH [place] 00 EVERY Medical MORNING Branch AND EVERY EVENING levothyroxi 2022-0 Yes [id number] 175ug Take 1 [facility] ne 175 mcg 1-19 tablet by [facility] of tablet 00:00: mouth [place] 00 every Medical morning. Branch KCL 10 mEq 2022-0 Yes [id number] 20meq Take 2 [facility] tablet 1-19 tablets by it[facility] of 00:00: mouth in [place] 00 the Medical morning Branch and 2 tablets in the evening. Only take when taking lasix omeprazole 0 Yes [id number] 40mg Take 1 [facility] 40 mg 1-19 capsule by it[facility] of capsule 00:00: mouth in [place] 00 the Medical morning. Branch ondansetron Yes [id number] TAKE 1 [facility] 4 mg tablet 1-19 TABLET BY it[facility] of 00:00: MOUTH [place] 00 EVERY 8 Medical HOURS Branch NEEDED FOR NAUSEA OR VOMITING QUEtiapine 2022-0 Yes [id number] 400mg Take 1 [facility] 400 mg 1-19 tablet by [facility] of tablet 00:00: mouth at [place] [address] bedtime. Medical ADDITIONAL Branch REFILLS PER PSYCHIATRY rosuvastati 2022-0 Yes [id number] 20mg Take 1 [facility] n 20 mg 1-19 tablet by it[facility] of tablet 00:00: mouth at [place] [address] bedtime. Medical Branch metoprolol 2022-0 Yes [id number] TAKE 1/2 [facility] tartrate 25 1-19 TABLET BY it[facility] of mg tablet 00:00: MOUTH [place] 00 TWICE Medical DAILY Branch gabapentin 2022-0 Yes [id number] 300mg Take 1 [facility] 300 mg 1-19 capsule by [facility] of capsule 00:00: mouth in [place] 00 the Medical morning Branch and 1 capsule at noon and 1 capsule in the evening. busPIRone Yes [id number] TAKE 1/2 [facility] 15 mg 1-19 TO 1 it[facility] of tablet 00:00: TABLET BY [place] 00 MOUTH Medical TWICE Branch DAILY NEEDED FOR ANXIETY carBAMazepi 2022-0 Yes [id number] 200mg Take 2 [facility] ne 100 mg 1-19 tablets by it[facility] of 12 hr 00:00: mouth at [facility] 00 bedtime. Medical Branch DULoxetine 2022-0 Yes [id number] 60mg Take 1 [facility] 60 mg 1-19 capsule by it[facility] of capsule 00:00: mouth [place] [address] every Medical morning. Branch furosemide 2022-0 Yes [id number] TAKE 1 [facility] 40 mg 1-19 TABLET BY it[facility] of tablet 00:00: MOUTH [place] 00 EVERY Medical MORNING Branch AND EVERY EVENING levothyroxi 2022-0 Yes [id number] 175ug Take 1 [facility] ne 175 mcg 1-19 tablet by it[facility] of tablet 00:00: mouth [place] [address] every Medical morning. Branch KCL 10 mEq Yes [id number] 20meq Take 2 [facility] tablet 1-19 tablets by it[facility] of 00:00: mouth in [place] 00 the Medical morning Branch and 2 tablets in the evening. Only take when taking lasix omeprazole Yes [id number] 40mg Take 1 [facility] 40 mg 1-19 capsule by [facility] of capsule 00:00: mouth in [place] [address] the Medical morning. Branch ondansetron Yes [id number] TAKE 1 [facility] 4 mg tablet 1-19 TABLET BY it[facility] of 00:00: MOUTH [place] [address] EVERY 8 Medical HOURS Branch NEEDED FOR NAUSEA OR VOMITING QUEtiapine 2022-0 Yes [id number] 400mg Take 1 [facility] 400 mg 1-19 tablet by [facility] of tablet 00:00: mouth at [place] [address] bedtime. Medical ADDITIONAL Branch REFILLS PER PSYCHIATRY rosuvastati 2022-0 Yes [id number] 20mg Take 1 [facility] n 20 mg 1-19 tablet by it[facility] of tablet 00:00: mouth at [place] [address] bedtime. Medical Branch metoprolol 2022-0 Yes [id number] TAKE 1/2 [facility] tartrate 25 1-19 TABLET BY it[facility] of mg tablet 00:00: MOUTH [place] [address] TWICE Medical DAILY Branch gabapentin 2022-0 Yes [id number] 300mg Take 1 [facility] 300 mg 1-19 capsule by [facility] of capsule 00:00: mouth in [place] 00 the Medical morning Branch and 1 capsule at noon and 1 capsule in the evening. busPIRone Yes [id number] TAKE 1/2 [facility] 15 mg 1-19 TO 1 ity of tablet 00:00: TABLET BY [place] 00 MOUTH Medical TWICE Branch DAILY NEEDED FOR ANXIETY carBAMazepi 2022-0 Yes [id number] 200mg Take 2 [facility] ne 100 mg 1-19 tablets by it[facility] of 12 hr 00:00: mouth at [facility] 00 bedtime. Medical Branch DULoxetine 0 Yes [id number] 60mg Take 1 [facility] 60 mg 1-19 capsule by [facility] of capsule 00:00: mouth [place] 00 every Medical morning. Branch furosemide Yes [id number] TAKE 1 [facility] 40 mg 1-19 TABLET BY [facility] of tablet 00:00: MOUTH [place] 00 EVERY Medical MORNING Branch AND EVERY EVENING levothyroxi 2022-0 Yes [id number] 175ug Take 1 [facility] ne 175 mcg 1-19 tablet by ity of tablet 00:00: mouth [place] 00 every Medical morning. Branch KCL 10 mEq 0 Yes [id number] 20meq Take 2 [facility] tablet 1-19 tablets by it[facility] of 00:00: mouth in [place] 00 the Medical morning Branch and 2 tablets in the evening. Only take when taking lasix omeprazole 0 Yes [id number] 40mg Take 1 [facility] 40 mg 1-19 capsule by it[facility] of capsule 00:00: mouth in [place] [address] the Medical morning. Branch ondansetron 0 Yes [id number] TAKE 1 [facility] 4 mg tablet 1-19 TABLET BY ity of 00:00: MOUTH [place] 00 EVERY 8 Medical HOURS Branch NEEDED FOR NAUSEA OR VOMITING QUEtiapine 2022-0 Yes [id number] 400mg Take 1 [facility] 400 mg 1-19 tablet by it[facility] of tablet 00:00: mouth at [place] [address] bedtime. Medical ADDITIONAL Branch REFILLS PER PSYCHIATRY rosuvastati 2022-0 Yes [id number] 20mg Take 1 [facility] n 20 mg 1-19 tablet by it[facility] of tablet 00:00: mouth at [place] [address] bedtime. Medical Branch metoprolol 2022-0 Yes [id number] TAKE 1/2 [facility] tartrate 25 1-19 TABLET BY ity of mg tablet 00:00: MOUTH [place] [address] TWICE Medical DAILY Branch gabapentin 2022-0 Yes [id number] 300mg Take 1 [facility] 300 mg 1-19 capsule by it[facility] of capsule 00:00: mouth in [place] 00 the Medical morning Branch and 1 capsule at noon and 1 capsule in the evening. busPIRone Yes [id number] TAKE 1/2 [facility] 15 mg 1-19 TO 1 ity of tablet 00:00: TABLET BY [place] 00 MOUTH Medical TWICE Branch DAILY NEEDED FOR ANXIETY carBAMazepi 0 Yes [id number] 200mg Take 2 [facility] ne 100 mg 1-19 tablets by it[facility] of 12 hr 00:00: mouth at [facility] 00 bedtime. Medical Branch DULoxetine Yes [id number] 60mg Take 1 [facility] 60 mg 1-19 capsule by it[facility] of capsule 00:00: mouth [place] 00 every Medical morning. Branch furosemide Yes [id number] TAKE 1 [facility] 40 mg 1-19 TABLET BY ity of tablet 00:00: MOUTH [place] 00 EVERY Medical MORNING Branch AND EVERY EVENING levothyroxi 2022-0 Yes [id number] 175ug Take 1 [facility] ne 175 mcg 1-19 tablet by ity of tablet 00:00: mouth [place] 00 every Medical morning. Branch KCL 10 mEq Yes [id number] 20meq Take 2 [facility] tablet 1-19 tablets by ity of 00:00: mouth in [place] 00 the Medical morning Branch and 2 tablets in the evening. Only take when taking lasix omeprazole 0 Yes [id number] 40mg Take 1 [facility] 40 mg 1-19 capsule by it[facility] of capsule 00:00: mouth in [place] 00 the Medical morning. Branch ondansetron Yes [id number] TAKE 1 [facility] 4 mg tablet 1-19 TABLET BY ity of 00:00: MOUTH [place] 00 EVERY 8 Medical HOURS Branch NEEDED FOR NAUSEA OR VOMITING QUEtiapine 0 Yes [id number] 400mg Take 1 [facility] 400 mg 1-19 tablet by it[facility] of tablet 00:00: mouth at [place] [address] bedtime. Medical ADDITIONAL Branch REFILLS PER PSYCHIATRY rosuvastati 2022-0 Yes [id number] 20mg Take 1 [facility] n 20 mg 1-19 tablet by it[facility] of tablet 00:00: mouth at [place] [address] bedtime. Medical Branch metoprolol 0 Yes [id number] TAKE 1/2 [facility] tartrate 25 1-19 TABLET BY ity of mg tablet 00:00: MOUTH [place] 00 TWICE Medical DAILY Branch gabapentin 2022-0 Yes [id number] 300mg Take 1 [facility] 300 mg 1-19 capsule by it[facility] of capsule 00:00: mouth in [place] 00 the Medical morning Branch and 1 capsule at noon and 1 capsule in the evening. busPIRone 2022-0 Yes [id number] TAKE 1/2 [facility] 15 mg 1-19 TO 1 ity of tablet 00:00: TABLET BY [place] 00 MOUTH Medical TWICE Branch DAILY NEEDED FOR ANXIETY carBAMazepi 2022-0 Yes [id number] 200mg Take 2 [facility] ne 100 mg 1-19 tablets by ity of 12 hr 00:00: mouth at [facility] 00 bedtime. Medical Branch DULoxetine 2022-0 Yes [id number] 60mg Take 1 [facility] 60 mg 1-19 capsule by ity of capsule 00:00: mouth [place] [address] every Medical morning. Branch furosemide 2022-0 Yes [id number] TAKE 1 [facility] 40 mg 1-19 TABLET BY ity of tablet 00:00: MOUTH [place] 00 EVERY Medical MORNING Branch AND EVERY EVENING levothyroxi 2022-0 Yes [id number] 175ug Take 1 [facility] ne 175 mcg 1-19 tablet by ity of tablet 00:00: mouth [place] [address] every Medical morning. Branch KCL 10 mEq 2022-0 Yes [id number] 20meq Take 2 [facility] tablet 1-19 tablets by ity of 00:00: mouth in [place] 00 the Medical morning Branch and 2 tablets in the evening. Only take when taking lasix omeprazole 2022-0 Yes [id number] 40mg Take 1 [facility] 40 mg 1-19 capsule by it[facility] of capsule 00:00: mouth in [place] 00 the Medical morning. Branch ondansetron 2022-0 Yes [id number] TAKE 1 [facility] 4 mg tablet 1-19 TABLET BY ity of 00:00: MOUTH [place] [address] EVERY 8 Medical HOURS Branch NEEDED FOR NAUSEA OR VOMITING QUEtiapine 2022-0 Yes [id number] 400mg Take 1 [facility] 400 mg 1-19 tablet by ity of tablet 00:00: mouth at [place] [address] bedtime. Medical ADDITIONAL Branch REFILLS PER PSYCHIATRY rosuvastati 2022-0 Yes [id number] 20mg Take 1 [facility] n 20 mg 1-19 tablet by ity of tablet 00:00: mouth at [place] [address] bedtime. Medical Branch metoprolol 2022-0 Yes [id number] TAKE 1/2 [facility] tartrate 25 1-19 TABLET BY ity of mg tablet 00:00: MOUTH [place] 00 TWICE Medical DAILY Branch gabapentin 2022-0 Yes [id number] 300mg Take 1 [facility] 300 mg 1-19 capsule by ity of capsule 00:00: mouth in [place] 00 the Medical morning Branch and 1 capsule at noon and 1 capsule in the evening. busPIRone 2022-0 Yes [id number] TAKE 1/2 [facility] 15 mg 1-19 TO 1 ity of tablet 00:00: TABLET BY [place] 00 MOUTH Medical TWICE Branch DAILY NEEDED FOR ANXIETY carBAMazepi 2022-0 Yes [id number] 200mg Take 2 [facility] ne 100 mg 1-19 tablets by ity of 12 hr 00:00: mouth at [facility] 00 bedtime. Medical Branch DULoxetine 2022-0 Yes [id number] 60mg Take 1 [facility] 60 mg 1-19 capsule by ity of capsule 00:00: mouth [place] [address] every Medical morning. Branch furosemide 2022-0 Yes [id number] TAKE 1 [facility] 40 mg 1-19 TABLET BY ity of tablet 00:00: MOUTH [place] 00 EVERY Medical MORNING Branch AND EVERY EVENING levothyroxi 2022-0 Yes [id number] 175ug Take 1 [facility] ne 175 mcg 1-19 tablet by ity of tablet 00:00: mouth [place] 00 every Medical morning. Branch KCL 10 mEq 2022-0 Yes [id number] 20meq Take 2 [facility] tablet 1-19 tablets by ity of 00:00: mouth in [place] 00 the Medical morning Branch and 2 tablets in the evening. Only take when taking lasix omeprazole 2022-0 Yes [id number] 40mg Take 1 [facility] 40 mg 1-19 capsule by ity of capsule 00:00: mouth in [place] [address] the Medical morning. Branch ondansetron 2022-0 Yes [id number] TAKE 1 [facility] 4 mg tablet 1-19 TABLET BY ity of 00:00: MOUTH [place] 00 EVERY 8 Medical HOURS Branch NEEDED FOR NAUSEA OR VOMITING QUEtiapine 2022-0 Yes [id number] 400mg Take 1 [facility] 400 mg 1-19 tablet by ity of tablet 00:00: mouth at [place] [address] bedtime. Medical ADDITIONAL Branch REFILLS PER PSYCHIATRY rosuvastati 2022-0 Yes [id number] 20mg Take 1 [facility] n 20 mg 1-19 tablet by ity of tablet 00:00: mouth at [place] [address] bedtime. Medical Branch metoprolol 2022-0 Yes [id number] TAKE 1/2 [facility] tartrate 25 1-19 TABLET BY ity of mg tablet 00:00: MOUTH [place] 00 TWICE Medical DAILY Branch gabapentin 2022-0 Yes [id number] 300mg Take 1 [facility] 300 mg 1-19 capsule by ity of capsule 00:00: mouth in [place] 00 the Medical morning Branch and 1 capsule at noon and 1 capsule in the evening. busPIRone 2022-0 Yes [id number] TAKE 1/2 [facility] 15 mg 1-19 TO 1 ity of tablet 00:00: TABLET BY [place] [address] MOUTH Medical TWICE Branch DAILY NEEDED FOR ANXIETY carBAMazepi 2022-0 Yes [id number] 200mg Take 2 [facility] ne 100 mg 1-19 tablets by ity of 12 hr 00:00: mouth at [place] [address] bedtime. Medical Branch DULoxetine 2022-0 Yes [id number] 60mg Take 1 [facility] 60 mg 1-19 capsule by ity of capsule 00:00: mouth [place] [address] every Medical morning. Branch furosemide 2022-0 Yes [id number] TAKE 1 [facility] 40 mg 1-19 TABLET BY ity of tablet 00:00: MOUTH [place] 00 EVERY Medical MORNING Branch AND EVERY EVENING levothyroxi 2022-0 Yes [id number] 175ug Take 1 [facility] ne 175 mcg 1-19 tablet by ity of tablet 00:00: mouth [place] 00 every Medical morning. Branch KCL 10 mEq 2022-0 Yes [id number] 20meq Take 2 [facility] tablet 1-19 tablets by ity of 00:00: mouth in [place] 00 the Medical morning Branch and 2 tablets in the evening. Only take when taking lasix omeprazole 2022-0 Yes [id number] 40mg Take 1 [facility] 40 mg 1-19 capsule by ity of capsule 00:00: mouth in [place] [address] the Medical morning. Branch ondansetron 2022-0 Yes [id number] TAKE 1 [facility] 4 mg tablet 1-19 TABLET BY ity of 00:00: MOUTH [place] 00 EVERY 8 Medical HOURS Branch NEEDED FOR NAUSEA OR VOMITING QUEtiapine 2022-0 Yes [id number] 400mg Take 1 [facility] 400 mg 1-19 tablet by ity of tablet 00:00: mouth at [place] [address] bedtime. Medical ADDITIONAL Branch REFILLS PER PSYCHIATRY rosuvastati 2022-0 Yes [id number] 20mg Take 1 [facility] n 20 mg 1-19 tablet by ity of tablet 00:00: mouth at [place] [address] bedtime. Medical Branch metoprolol 2022-0 Yes [id number] TAKE 1/2 [facility] tartrate 25 1-19 TABLET BY ity of mg tablet 00:00: MOUTH [place] [address] TWICE Medical DAILY Branch gabapentin 2022-0 Yes [id number] 300mg Take 1 [facility] 300 mg 1-19 capsule by ity of capsule 00:00: mouth in [place] 00 the Medical morning Branch and 1 capsule at noon and 1 capsule in the evening. busPIRone 2022-0 Yes [id number] TAKE 1/2 [facility] 15 mg 1-19 TO 1 ity of tablet 00:00: TABLET BY [place] [address] MOUTH Medical TWICE Branch DAILY NEEDED FOR ANXIETY carBAMazepi 2022-0 Yes [id number] 200mg Take 2 [facility] ne 100 mg 1-19 tablets by ity of 12 hr 00:00: mouth at [place] [address] bedtime. Medical Branch DULoxetine 2022-0 Yes [id number] 60mg Take 1 [facility] 60 mg 1-19 capsule by ity of capsule 00:00: mouth [place] [address] every Medical morning. Branch furosemide 2022-0 Yes [id number] TAKE 1 [facility] 40 mg 1-19 TABLET BY ity of tablet 00:00: MOUTH [place] 00 EVERY Medical MORNING Branch AND EVERY EVENING levothyroxi 2022-0 Yes [id number] 175ug Take 1 [facility] ne 175 mcg 1-19 tablet by ity of tablet 00:00: mouth [place] [address] every Medical morning. Branch KCL 10 mEq 2022-0 Yes [id number] 20meq Take 2 [facility] tablet 1-19 tablets by ity of 00:00: mouth in [place] 00 the Medical morning Branch and 2 tablets in the evening. Only take when taking lasix omeprazole 2022-0 Yes [id number] 40mg Take 1 [facility] 40 mg 1-19 capsule by ity of capsule 00:00: mouth in [place] [address] the Medical morning. Branch ondansetron 2022-0 Yes [id number] TAKE 1 [facility] 4 mg tablet 1-19 TABLET BY ity of 00:00: MOUTH [place] [address] EVERY 8 Medical HOURS Branch NEEDED FOR NAUSEA OR VOMITING QUEtiapine 2022-0 Yes [id number] 400mg Take 1 [facility] 400 mg 1-19 tablet by ity of tablet 00:00: mouth at [place] [address] bedtime. Medical ADDITIONAL Branch REFILLS PER PSYCHIATRY rosuvastati 2022-0 Yes [id number] 20mg Take 1 [facility] n 20 mg 1-19 tablet by ity of tablet 00:00: mouth at [place] [address] bedtime. Medical Branch metoprolol 2022-0 Yes [id number] TAKE 1/2 [facility] tartrate 25 1-19 TABLET BY ity of mg tablet 00:00: MOUTH [place] 00 TWICE Medical DAILY Branch gabapentin 2022-0 Yes [id number] 300mg Take 1 [facility] 300 mg 1-19 capsule by ity of capsule 00:00: mouth in [place] 00 the Medical morning Branch and 1 capsule at noon and 1 capsule in the evening. busPIRone 2022-0 Yes [id number] TAKE 1/2 [facility] 15 mg 1-19 TO 1 ity of tablet 00:00: TABLET BY [place] 00 MOUTH Medical TWICE Branch DAILY NEEDED FOR ANXIETY carBAMazepi 2022-0 Yes [id number] 200mg Take 2 [facility] ne 100 mg 1-19 tablets by ity of 12 hr 00:00: mouth at [facility] 00 bedtime. Medical Branch DULoxetine 2022-0 Yes [id number] 60mg Take 1 [facility] 60 mg 1-19 capsule by ity of capsule 00:00: mouth [place] 00 every Medical morning. Branch furosemide 2022-0 Yes [id number] TAKE 1 [facility] 40 mg 1-19 TABLET BY ity of tablet 00:00: MOUTH [place] 00 EVERY Medical MORNING Branch AND EVERY EVENING levothyroxi 2022-0 Yes [id number] 175ug Take 1 [facility] ne 175 mcg 1-19 tablet by ity of tablet 00:00: mouth [place] 00 every Medical morning. Branch KCL 10 mEq 2022-0 Yes [id number] 20meq Take 2 [facility] tablet 1-19 tablets by ity of 00:00: mouth in [place] 00 the Medical morning Branch and 2 tablets in the evening. Only take when taking lasix omeprazole 2022-0 Yes [id number] 40mg Take 1 [facility] 40 mg 1-19 capsule by ity of capsule 00:00: mouth in [place] 00 the Medical morning. Branch rosuvastati 2022-0 Yes [id number] 20mg Take 1 [facility] n 20 mg 1-19 tablet by ity of tablet 00:00: mouth at [place] [address] bedtime. Medical Branch metoprolol 2022-0 Yes [id number] TAKE 1/2 [facility] tartrate 25 1-19 TABLET BY ity of mg tablet 00:00: MOUTH [place] 00 TWICE Medical DAILY Branch gabapentin 2022-0 Yes [id number] 300mg Take 1 [facility] 300 mg 1-19 capsule by ity of capsule 00:00: mouth in [place] 00 the Medical morning Branch and 1 capsule at noon and 1 capsule in the evening. busPIRone 2022-0 Yes [id number] TAKE 1/2 [facility] 15 mg 1-19 TO 1 ity of tablet 00:00: TABLET BY [place] [address] MOUTH Medical TWICE Branch DAILY NEEDED FOR ANXIETY carBAMazepi 2022-0 Yes [id number] 200mg Take 2 [facility] ne 100 mg 1-19 tablets by ity of 12 hr 00:00: mouth at [facility] 00 bedtime. Medical Branch DULoxetine 2022-0 Yes [id number] 60mg Take 1 [facility] 60 mg 1-19 capsule by ity of capsule 00:00: mouth [place] [address] every Medical morning. Branch furosemide 2022-0 Yes [id number] TAKE 1 [facility] 40 mg 1-19 TABLET BY ity of tablet 00:00: MOUTH [place] 00 EVERY Medical MORNING Branch AND EVERY EVENING levothyroxi 2022-0 Yes [id number] 175ug Take 1 [facility] ne 175 mcg 1-19 tablet by ity of tablet 00:00: mouth [place] 00 every Medical morning. Branch KCL 10 mEq 2022-0 Yes [id number] 20meq Take 2 [facility] tablet 1-19 tablets by ity of 00:00: mouth in [place] 00 the Medical morning Branch and 2 tablets in the evening. Only take when taking lasix omeprazole 2022-0 Yes [id number] 40mg Take 1 [facility] 40 mg 1-19 capsule by ity of capsule 00:00: mouth in [place] [address] the Medical morning. Branch rosuvastati 2022-0 Yes [id number] 20mg Take 1 [facility] n 20 mg 1-19 tablet by ity of tablet 00:00: mouth at [place] [address] bedtime. Medical Branch metoprolol 2022-0 Yes [id number] TAKE 1/2 [facility] tartrate 25 1-19 TABLET BY ity of mg tablet 00:00: MOUTH [place] [address] TWICE Medical DAILY Branch gabapentin 2022-0 Yes [id number] 300mg Take 1 [facility] 300 mg 1-19 capsule by ity of capsule 00:00: mouth in [place] 00 the Medical morning Branch and 1 capsule at noon and 1 capsule in the evening. busPIRone 2022-0 Yes [id number] TAKE 1/2 [facility] 15 mg 1-19 TO 1 ity of tablet 00:00: TABLET BY [address] Medical TWICE [place] DAILY NEEDED FOR ANXIETY carBAMazepi 2022-0 Yes [id number] 200mg Take 2 [facility] ne 100 mg 1-19 tablets by ity of 12 hr 00:00: mouth at [facility] 00 bedtime. Medical Branch DULoxetine 2022-0 Yes [id number] 60mg Take 1 [facility] 60 mg 1-19 capsule by ity of capsule 00:00: mouth [place] [address] every Medical morning. Branch furosemide 2022-0 Yes [id number] TAKE 1 [facility] 40 mg 1-19 TABLET BY ity of tablet 00:00: MOUTH [place] 00 EVERY Medical MORNING Branch AND EVERY EVENING levothyroxi 2022-0 Yes [id number] 175ug Take 1 [facility] ne 175 mcg 1-19 tablet by ity of tablet 00:00: mouth [place] [address] every Medical morning. Branch KCL 10 mEq 2022-0 Yes [id number] 20meq Take 2 [facility] tablet 1-19 tablets by ity of 00:00: mouth in [place] 00 the Medical morning Branch and 2 tablets in the evening. Only take when taking lasix omeprazole 2022-0 Yes [id number] 40mg Take 1 [facility] 40 mg 1-19 capsule by ity of capsule 00:00: mouth in [place] [address] the Medical morning. Branch rosuvastati 2022-0 Yes [id number] 20mg Take 1 [facility] n 20 mg 1-19 tablet by ity of tablet 00:00: mouth at [place] [address] bedtime. Medical Branch metoprolol 2022-0 Yes [id number] TAKE 1/2 [facility] tartrate 25 1-19 TABLET BY ity of mg tablet 00:00: MOUTH [place] [address] TWICE Medical DAILY Branch gabapentin 2022-0 Yes [id number] 300mg Take 1 [facility] 300 mg 1-19 capsule by ity of capsule 00:00: mouth in [place] 00 the Medical morning Branch and 1 capsule at noon and 1 capsule in the evening. busPIRone 2022-0 Yes [id number] TAKE 1/2 [facility] 15 mg 1-19 TO 1 ity of tablet 00:00: TABLET BY [place] 00 MOUTH Medical TWICE Branch DAILY NEEDED FOR ANXIETY carBAMazepi 2022-0 Yes [id number] 200mg Take 2 [facility] ne 100 mg 1-19 tablets by ity of 12 hr 00:00: mouth at [place] tablet 00 bedtime. Medical Branch DULoxetine 2022-0 Yes [id number] 60mg Take 1 [facility] 60 mg 1-19 capsule by ity of capsule 00:00: mouth [place] 00 every Medical morning. Branch furosemide 2022-0 Yes [id number] TAKE 1 [facility] 40 mg 1-19 TABLET BY ity of tablet 00:00: MOUTH [place] 00 EVERY Medical MORNING Branch AND EVERY EVENING levothyroxi 2022-0 Yes [id number] 175ug Take 1 [facility] ne 175 mcg 1-19 tablet by ity of tablet 00:00: mouth [place] [address] every Medical morning. Branch KCL 10 mEq Yes [id number] 20meq Take 2 [facility] tablet 1-19 tablets by ity of 00:00: mouth in [place] 00 the Medical morning Branch and 2 tablets in the evening. Only take when taking lasix omeprazole 0 Yes [id number] 40mg Take 1 [facility] 40 mg 1-19 capsule by ity of capsule 00:00: mouth in [place] [address] the Medical morning. Branch rosuvastati Yes [id number] 20mg Take 1 [facility] n 20 mg 1-19 tablet by ity of tablet 00:00: mouth at [place] [address] bedtime. Medical Branch metoprolol 2022-0 Yes [id number] TAKE 1/2 [facility] tartrate 25 1-19 TABLET BY ity of mg tablet 00:00: MOUTH [place] [address] TWICE Medical DAILY Branch gabapentin 2022-0 Yes [id number] 300mg Take 1 [facility] 300 mg 1-19 capsule by ity of capsule 00:00: mouth in [place] 00 the Medical morning Branch and 1 capsule at noon and 1 capsule in the evening. busPIRone 2022-0 Yes [id number] TAKE 1/2 [facility] 15 mg 1-19 TO 1 ity of tablet 00:00: TABLET BY [place] 00 MOUTH Medical TWICE Branch DAILY NEEDED FOR ANXIETY carBAMazepi 2022-0 Yes [id number] 200mg Take 2 [facility] ne 100 mg 1-19 tablets by [facility] of 12 hr 00:00: mouth at [facility] 00 bedtime. Medical Branch DULoxetine 2022-0 Yes [id number] 60mg Take 1 [facility] 60 mg 1-19 capsule by [facility] of capsule 00:00: mouth [place] 00 every Medical morning. Branch furosemide 2022-0 Yes [id number] TAKE 1 [facility] 40 mg 1-19 TABLET BY [facility] of tablet 00:00: MOUTH [place] 00 EVERY Medical MORNING Branch AND EVERY EVENING levothyroxi 2022-0 Yes [id number] 175ug Take 1 [facility] ne 175 mcg 1-19 tablet by it[facility] of tablet 00:00: mouth [place] [address] every Medical morning. Branch KCL 10 mEq 2022-0 Yes [id number] 20meq Take 2 [facility] tablet 1-19 tablets by it[facility] of 00:00: mouth in [place] 00 the Medical morning Branch and 2 tablets in the evening. Only take when taking lasix omeprazole 2022-0 Yes [id number] 40mg Take 1 [facility] 40 mg 1-19 capsule by [facility] of capsule 00:00: mouth in [place] [address] the Medical morning. Branch rosuvastati 2022-0 Yes [id number] 20mg Take 1 [facility] n 20 mg 1-19 tablet by [facility] of tablet 00:00: mouth at [place] [address] bedtime. Medical Branch metoprolol 2022-0 Yes [id number] TAKE 1/2 [facility] tartrate 25 1-19 TABLET BY it[facility] of mg tablet 00:00: MOUTH [place] 00 TWICE Medical DAILY Branch gabapentin 2022-0 Yes [id number] 300mg Take 1 [facility] 300 mg 1-19 capsule by [facility] of capsule 00:00: mouth in [place] 00 the Medical morning Branch and 1 capsule at noon and 1 capsule in the evening. busPIRone 2022-0 Yes [id number] TAKE 1/2 [facility] 15 mg 1-19 TO 1 ity of tablet 00:00: TABLET BY [place] 00 MOUTH Medical TWICE Branch DAILY NEEDED FOR ANXIETY carBAMazepi 2022-0 Yes [id number] 200mg Take 2 [facility] ne 100 mg 1-19 tablets by it[facility] of 12 hr 00:00: mouth at [facility] 00 bedtime. Medical Branch DULoxetine 2022-0 Yes [id number] 60mg Take 1 [facility] 60 mg 1-19 capsule by [facility] of capsule 00:00: mouth [place] [address] every Medical morning. Branch furosemide 2022-0 Yes [id number] TAKE 1 [facility] 40 mg 1-19 TABLET BY it[facility] of tablet 00:00: MOUTH [place] 00 EVERY Medical MORNING Branch AND EVERY EVENING levothyroxi 2022-0 Yes [id number] 175ug Take 1 [facility] ne 175 mcg 1-19 tablet by it[facility] of tablet 00:00: mouth [place] 00 every Medical morning. Branch KCL 10 mEq 2022-0 Yes [id number] 20meq Take 2 [facility] tablet 1-19 tablets by it[facility] of 00:00: mouth in [place] 00 the Medical morning Branch and 2 tablets in the evening. Only take when taking lasix omeprazole 2022-0 Yes [id number] 40mg Take 1 [facility] 40 mg 1-19 capsule by [facility] of capsule 00:00: mouth in [place] 00 the Medical morning. Branch rosuvastati 2022-0 Yes [id number] 20mg Take 1 [facility] n 20 mg 1-19 tablet by [facility] of tablet 00:00: mouth at [place] [address] bedtime. Medical Branch metoprolol 2022-0 Yes [id number] TAKE 1/2 [facility] tartrate 25 1-19 TABLET BY ity of mg tablet 00:00: MOUTH [place] [address] TWICE Medical DAILY Branch gabapentin 2022-0 Yes [id number] 300mg Take 1 [facility] 300 mg 1-19 capsule by [facility] of capsule 00:00: mouth in [place] 00 the Medical morning Branch and 1 capsule at noon and 1 capsule in the evening. busPIRone 2022-0 Yes [id number] TAKE 1/2 [facility] 15 mg 1-19 TO 1 ity of tablet 00:00: TABLET BY [place] 00 MOUTH Medical TWICE Branch DAILY NEEDED FOR ANXIETY carBAMazepi 2022-0 Yes [id number] 200mg Take 2 [facility] ne 100 mg 1-19 tablets by it[facility] of 12 hr 00:00: mouth at [place] [address] bedtime. Medical Branch DULoxetine 2022-0 Yes [id number] 60mg Take 1 [facility] 60 mg 1-19 capsule by [facility] of capsule 00:00: mouth [place] [address] every Medical morning. Branch furosemide 2022-0 Yes [id number] TAKE 1 [facility] 40 mg 1-19 TABLET BY it[facility] of tablet 00:00: MOUTH [place] 00 EVERY Medical MORNING Branch AND EVERY EVENING levothyroxi 2022-0 Yes [id number] 175ug Take 1 [facility] ne 175 mcg 1-19 tablet by it[facility] of tablet 00:00: mouth [place] [address] every Medical morning. Branch KCL 10 mEq 2022-0 Yes [id number] 20meq Take 2 [facility] tablet 1-19 tablets by ity of 00:00: mouth in [place] 00 the Medical morning Branch and 2 tablets in the evening. Only take when taking lasix omeprazole 2022- Yes [id number] 40mg Take 1 [facility] 40 mg 1-19 capsule by it[facility] of capsule 00:00: mouth in [place] 00 the Medical morning. Branch rosuvastati 2022-0 Yes [id number] 20mg Take 1 [facility] n 20 mg 1-19 tablet by [facility] of tablet 00:00: mouth at [place] [address] bedtime. Medical Branch metoprolol 2022-0 Yes [id number] TAKE 1/2 [facility] tartrate 25 1-19 TABLET BY ity of mg tablet 00:00: MOUTH [place] 00 TWICE Medical DAILY Branch gabapentin 2022-0 Yes [id number] 300mg Take 1 [facility] 300 mg 1-19 capsule by [facility] of capsule 00:00: mouth in [place] 00 the Medical morning Branch and 1 capsule at noon and 1 capsule in the evening. busPIRone 0 Yes [id number] TAKE 1/2 [facility] 15 mg 1-19 TO 1 ity of tablet 00:00: TABLET BY [place] 00 MOUTH Medical TWICE Branch DAILY NEEDED FOR ANXIETY carBAMazepi 0 Yes [id number] 200mg Take 2 [facility] ne 100 mg 1-19 tablets by it[facility] of 12 hr 00:00: mouth at [facility] 00 bedtime. Medical Branch DULoxetine 2022-0 Yes [id number] 60mg Take 1 [facility] 60 mg 1-19 capsule by [facility] of capsule 00:00: mouth [place] 00 every Medical morning. Branch furosemide 2022-0 Yes [id number] TAKE 1 [facility] 40 mg 1-19 TABLET BY [facility] of tablet 00:00: MOUTH [place] 00 EVERY Medical MORNING Branch AND EVERY EVENING levothyroxi 2022-0 Yes [id number] 175ug Take 1 [facility] ne 175 mcg 1-19 tablet by it[facility] of tablet 00:00: mouth [place] 00 every Medical morning. Branch KCL 10 mEq 2022-0 Yes [id number] 20meq Take 2 [facility] tablet 1-19 tablets by it[facility] of 00:00: mouth in [place] 00 the Medical morning Branch and 2 tablets in the evening. Only take when taking lasix omeprazole 2022-0 Yes [id number] 40mg Take 1 [facility] 40 mg 1-19 capsule by it[facility] of capsule 00:00: mouth in [place] 00 the Medical morning. Branch rosuvastati 2022-0 Yes [id number] 20mg Take 1 [facility] n 20 mg 1-19 tablet by it[facility] of tablet 00:00: mouth at [place] [address] bedtime. Medical Branch metoprolol 2022-0 Yes [id number] TAKE 1/2 [facility] tartrate 25 1-19 TABLET BY ity of mg tablet 00:00: MOUTH [place] 00 TWICE Medical DAILY Branch gabapentin 2022-0 Yes [id number] 300mg Take 1 [facility] 300 mg 1-19 capsule by it[facility] of capsule 00:00: mouth in [place] 00 the Medical morning Branch and 1 capsule at noon and 1 capsule in the evening. busPIRone 2022-0 Yes [id number] TAKE 1/2 [facility] 15 mg 1-19 TO 1 ity of tablet 00:00: TABLET BY [place] [address] MOUTH Medical TWICE Branch DAILY NEEDED FOR ANXIETY carBAMazepi 2022-0 Yes [id number] 200mg Take 2 [facility] ne 100 mg 1-19 tablets by ity of 12 hr 00:00: mouth at [facility] 00 bedtime. Medical Branch DULoxetine 2022-0 Yes [id number] 60mg Take 1 [facility] 60 mg 1-19 capsule by it[facility] of capsule 00:00: mouth [place] 00 every Medical morning. Branch furosemide 2022-0 Yes [id number] TAKE 1 [facility] 40 mg 1-19 TABLET BY it[facility] of tablet 00:00: MOUTH [place] 00 EVERY Medical MORNING Branch AND EVERY EVENING levothyroxi 2022-0 Yes [id number] 175ug Take 1 [facility] ne 175 mcg 1-19 tablet by ity of tablet 00:00: mouth [place] 00 every Medical morning. Branch KCL 10 mEq 2022-0 Yes [id number] 20meq Take 2 [facility] tablet 1-19 tablets by ity of 00:00: mouth in [place] 00 the Medical morning Branch and 2 tablets in the evening. Only take when taking lasix omeprazole 2022-0 Yes [id number] 40mg Take 1 [facility] 40 mg 1-19 capsule by it[facility] of capsule 00:00: mouth in [place] 00 the Medical morning. Branch rosuvastati 2022-0 Yes [id number] 20mg Take 1 [facility] n 20 mg 1-19 tablet by it[facility] of tablet 00:00: mouth at [place] [address] bedtime. Medical Branch metoprolol 2022-0 Yes [id number] TAKE 1/2 [facility] tartrate 25 1-19 TABLET BY ity of mg tablet 00:00: MOUTH [place] 00 TWICE Medical DAILY Branch gabapentin 2022-0 Yes [id number] 300mg Take 1 [facility] 300 mg 1-19 capsule by it[facility] of capsule 00:00: mouth in [place] 00 the Medical morning Branch and 1 capsule at noon and 1 capsule in the evening. busPIRone 2022-0 Yes [id number] TAKE 1/2 [facility] 15 mg 1-19 TO 1 ity of tablet 00:00: TABLET BY [place] 00 MOUTH Medical TWICE Branch DAILY NEEDED FOR ANXIETY carBAMazepi 2022-0 Yes [id number] 200mg Take 2 [facility] ne 100 mg 1-19 tablets by ity of 12 hr 00:00: mouth at [facility] 00 bedtime. Medical Branch DULoxetine 2022-0 Yes [id number] 60mg Take 1 [facility] 60 mg 1-19 capsule by it[facility] of capsule 00:00: mouth [place] [address] every Medical morning. Branch furosemide 0 Yes [id number] TAKE 1 [facility] 40 mg 1-19 TABLET BY ity of tablet 00:00: MOUTH [place] 00 EVERY Medical MORNING Branch AND EVERY EVENING levothyroxi 2022-0 Yes [id number] 175ug Take 1 [facility] ne 175 mcg 1-19 tablet by ity of tablet 00:00: mouth [place] 00 every Medical morning. Branch KCL 10 mEq Yes [id number] 20meq Take 2 [facility] tablet 1-19 tablets by ity of 00:00: mouth in [place] 00 the Medical morning Branch and 2 tablets in the evening. Only take when taking lasix omeprazole 0 Yes [id number] 40mg Take 1 [facility] 40 mg 1-19 capsule by ity of capsule 00:00: mouth in [place] 00 the Medical morning. Branch rosuvastati 0 Yes [id number] 20mg Take 1 [facility] n 20 mg 1-19 tablet by ity of tablet 00:00: mouth at [place] [address] bedtime. Medical Branch metoprolol 2022-0 Yes [id number] TAKE 1/2 [facility] tartrate 25 1-19 TABLET BY ity of mg tablet 00:00: MOUTH [place] 00 TWICE Medical DAILY Branch gabapentin 2022-0 Yes [id number] 300mg Take 1 [facility] 300 mg 1-19 capsule by it[facility] of capsule 00:00: mouth in [place] 00 the Medical morning Branch and 1 capsule at noon and 1 capsule in the evening. busPIRone 2022-0 Yes [id number] TAKE 1/2 [facility] 15 mg 1-19 TO 1 ity of tablet 00:00: TABLET BY [place] 00 MOUTH Medical TWICE Branch DAILY NEEDED FOR ANXIETY carBAMazepi 2022-0 Yes [id number] 200mg Take 2 [facility] ne 100 mg 1-19 tablets by it[facility] of 12 hr 00:00: mouth at [place] tablet 00 bedtime. Medical Branch DULoxetine 2022-0 Yes [id number] 60mg Take 1 [facility] 60 mg 1-19 capsule by it[facility] of capsule 00:00: mouth [place] 00 every Medical morning. Branch furosemide 2022-0 Yes [id number] TAKE 1 [facility] 40 mg 1-19 TABLET BY it[facility] of tablet 00:00: MOUTH [place] 00 EVERY Medical MORNING Branch AND EVERY EVENING levothyroxi 2022-0 Yes [id number] 175ug Take 1 [facility] ne 175 mcg 1-19 tablet by ity of tablet 00:00: mouth [place] [address] every Medical morning. Branch KCL 10 mEq 2022-0 Yes [id number] 20meq Take 2 [facility] tablet 1-19 tablets by ity of 00:00: mouth in [place] 00 the Medical morning Branch and 2 tablets in the evening. Only take when taking lasix omeprazole 2022-0 Yes [id number] 40mg Take 1 [facility] 40 mg 1-19 capsule by ity of capsule 00:00: mouth in [place] 00 the Medical morning. Branch rosuvastati 0 Yes [id number] 20mg Take 1 [facility] n 20 mg 1-19 tablet by ity of tablet 00:00: mouth at [place] [address] bedtime. Medical Branch metoprolol 2022-0 Yes [id number] TAKE 1/2 [facility] tartrate 25 1-19 TABLET BY ity of mg tablet 00:00: MOUTH [place] 00 TWICE Medical DAILY Branch gabapentin 2022-0 Yes [id number] 300mg Take 1 [facility] 300 mg 1-19 capsule by ity of capsule 00:00: mouth in [place] 00 the Medical morning Branch and 1 capsule at noon and 1 capsule in the evening. carBAMazepi 2022-0 Yes [id number] 200mg Take 2 [facility] ne 100 mg 1-19 tablets by ity of 12 hr 00:00: mouth at [place] tablet 00 bedtime. Medical Branch KCL 10 mEq 2022-0 Yes [id number] 20meq Take 2 [facility] tablet 1-19 tablets by ity of 00:00: mouth in [place] 00 the Medical morning Branch and 2 tablets in the evening. Only take when taking lasix omeprazole 2022-0 Yes [id number] 40mg Take 1 [facility] 40 mg 1-19 capsule by ity of capsule 00:00: mouth in [place] 00 the Medical morning. Branch metoprolol 2022-0 Yes [id number] TAKE 1/2 [facility] tartrate 25 1-19 TABLET BY ity of mg tablet 00:00: MOUTH [place] 00 TWICE Medical DAILY Branch gabapentin 3-0 Yes [id number] 300mg Take 1 [facility] 300 mg 1-19 capsule by ity of capsule 00:00: mouth in [place] 00 the Medical morning Branch and 1 capsule at noon and 1 capsule in the evening. carBAMazepi 2023-0 Yes [id number] 200mg Take 2 [facility] ne 100 mg 1-19 tablets by ity of 12 hr 00:00: mouth at [place] tablet 00 bedtime. Medical Branch KCL 10 mEq 2022-0 Yes [id number] 20meq Take 2 [facility] tablet 1-19 tablets by ity of 00:00: mouth in [place] 00 the Medical morning Branch and 2 tablets in the evening. Only take when taking lasix omeprazole 2022-0 Yes [id number] 40mg Take 1 [facility] 40 mg 1-19 capsule by ity of capsule 00:00: mouth in [place] 00 the Medical morning. Branch metoprolol 2022-0 Yes [id number] TAKE 1/2 [facility] tartrate 25 1-19 TABLET BY ity of mg tablet 00:00: MOUTH [place] 00 TWICE Medical DAILY Branch gabapentin 2022-0 Yes [id number] 300mg Take 1 [facility] 300 mg 1-19 capsule by ity of capsule 00:00: mouth in [place] 00 the Medical morning Branch and 1 capsule at noon and 1 capsule in the evening. carBAMazepi 3-0 Yes [id number] 200mg Take 2 [facility] ne 100 mg 1-19 tablets by ity of 12 hr 00:00: mouth at [place] tablet 00 bedtime. Medical Branch KCL 10 mEq 2022-0 Yes [id number] 20meq Take 2 [facility] tablet 1-19 tablets by ity of 00:00: mouth in [place] 00 the Medical morning Branch and 2 tablets in the evening. Only take when taking lasix omeprazole 2022-0 Yes [id number] 40mg Take 1 [facility] 40 mg 1-19 capsule by ity of capsule 00:00: mouth in [place] 00 the Medical morning. Branch metoprolol 2022-0 Yes [id number] TAKE 1/2 [facility] tartrate 25 1-19 TABLET BY ity of mg tablet 00:00: MOUTH [place] 00 TWICE Medical DAILY Branch gabapentin 2022-0 Yes [id number] 300mg Take 1 [facility] 300 mg 1-19 capsule by ity of capsule 00:00: mouth in [place] 00 the Medical morning Branch and 1 capsule at noon and 1 capsule in the evening. carBAMazepi 2022-0 Yes [id number] 200mg Take 2 [facility] ne 100 mg 1-19 tablets by ity of 12 hr 00:00: mouth at [place] tablet 00 bedtime. Medical Branch KCL 10 mEq 2022-0 Yes [id number] 20meq Take 2 [facility] tablet 1-19 tablets by ity of 00:00: mouth in [place] 00 the Medical morning Branch and 2 tablets in the evening. Only take when taking lasix omeprazole 2022-0 Yes [id number] 40mg Take 1 [facility] 40 mg 1-19 capsule by ity of capsule 00:00: mouth in [place] 00 the Medical morning. Branch metoprolol 2022-0 Yes [id number] TAKE 1/2 [facility] tartrate 25 1-19 TABLET BY ity of mg tablet 00:00: MOUTH [place] [address] TWICE Medical DAILY Branch gabapentin 2022-0 Yes [id number] 300mg Take 1 [facility] 300 mg 1-19 capsule by ity of capsule 00:00: mouth in [place] the Medical morning Branch and 1 capsule at noon and 1 capsule in the evening. carBAMazepi 2022-0 Yes [id number] 200mg Take 2 [facility] ne 100 mg 1-19 tablets by ity of 12 hr 00:00: mouth at [place] tablet 00 bedtime. Medical Branch KCL 10 mEq 2022-0 Yes [id number] 20meq Take 2 [facility] tablet 1-19 tablets by ity of 00:00: mouth in [place] the Medical morning Branch and 2 tablets in the evening. Only take when taking lasix omeprazole 2022-0 Yes [id number] 40mg Take 1 [facility] 40 mg 1-19 capsule by ity of capsule 00:00: mouth in [place] [address] the Medical morning. Branch metoprolol 2022-0 Yes [id number] TAKE 1/2 [facility] tartrate 25 1-19 TABLET BY ity of mg tablet 00:00: MOUTH [place] 00 TWICE Medical DAILY Branch gabapentin 3-0 Yes [id number] 300mg Take 1 [facility] 300 mg 1-19 capsule by ity of capsule 00:00: mouth in [place] 00 the Medical morning Branch and 1 capsule at noon and 1 capsule in the evening. carBAMazepi 2022-0 Yes [id number] 200mg Take 2 [facility] ne 100 mg 1-19 tablets by ity of 12 hr 00:00: mouth at [place] tablet 00 bedtime. Medical Branch KCL 10 mEq 2022-0 Yes [id number] 20meq Take 2 [facility] tablet 1-19 tablets by ity of 00:00: mouth in [place] 00 the Medical morning Branch and 2 tablets in the evening. Only take when taking lasix omeprazole 2022-0 Yes [id number] 40mg Take 1 [facility] 40 mg 1-19 capsule by ity of capsule 00:00: mouth in [place] [address] the Medical morning. Branch metoprolol 2022-0 Yes [id number] TAKE 1/2 [facility] tartrate 25 1-19 TABLET BY ity of mg tablet 00:00: MOUTH [place] [address] TWICE Medical DAILY Branch gabapentin 2022-0 Yes [id number] 300mg Take 1 [facility] 300 mg 1-19 capsule by ity of capsule 00:00: mouth in [place] 00 the Medical morning Branch and 1 capsule at noon and 1 capsule in the evening. carBAMazepi 2022-0 Yes [id number] 200mg Take 2 [facility] ne 100 mg 1-19 tablets by ity of 12 hr 00:00: mouth at [place] tablet 00 bedtime. Medical Branch KCL 10 mEq 2022-0 Yes [id number] 20meq Take 2 [facility] tablet 1-19 tablets by ity of 00:00: mouth in [place] 00 the Medical morning Branch and 2 tablets in the evening. Only take when taking lasix omeprazole 2022-0 Yes [id number] 40mg Take 1 [facility] 40 mg 1-19 capsule by ity of capsule 00:00: mouth in [place] [address] the Medical morning. Branch metoprolol 2022-0 Yes [id number] TAKE 1/2 [facility] tartrate 25 1-19 TABLET BY ity of mg tablet 00:00: MOUTH [place] [address] TWICE Medical DAILY Branch gabapentin 3-0 Yes [id number] 300mg Take 1 [facility] 300 mg 1-19 capsule by ity of capsule 00:00: mouth in [place] [address] the Medical morning Branch and 1 capsule at noon and 1 capsule in the evening. carBAMazepi 2022-0 Yes [id number] 200mg Take 2 [facility] ne 100 mg 1-19 tablets by ity of 12 hr 00:00: mouth at [place] tablet 00 bedtime. Medical Branch KCL 10 mEq 2022-0 Yes [id number] 20meq Take 2 [facility] tablet 1-19 tablets by ity of 00:00: mouth in [place] 00 the Medical morning Branch and 2 tablets in the evening. Only take when taking lasix omeprazole 2022-0 Yes [id number] 40mg Take 1 [facility] 40 mg 1-19 capsule by ity of capsule 00:00: mouth in [place] 00 the Medical morning. Branch metoprolol 2022-0 Yes [id number] TAKE 1/2 [facility] tartrate 25 1-19 TABLET BY ity of mg tablet 00:00: MOUTH [place] [address] TWICE Medical DAILY Branch gabapentin 2022-0 Yes [id number] 300mg Take 1 [facility] 300 mg 1-19 capsule by ity of capsule 00:00: mouth in [place] 00 the Medical morning Branch and 1 capsule at noon and 1 capsule in the evening. carBAMazepi 2022-0 Yes [id number] 200mg Take 2 [facility] ne 100 mg 1-19 tablets by ity of 12 hr 00:00: mouth at [place] tablet 00 bedtime. Medical Branch KCL 10 mEq 2022-0 Yes [id number] 20meq Take 2 [facility] tablet 1-19 tablets by ity of 00:00: mouth in [place] 00 the Medical morning Branch and 2 tablets in the evening. Only take when taking lasix omeprazole 2022-0 Yes [id number] 40mg Take 1 [facility] 40 mg 1-19 capsule by ity of capsule 00:00: mouth in [place] 00 the Medical morning. Branch metoprolol 2022-0 Yes [id number] TAKE 1/2 [facility] tartrate 25 1-19 TABLET BY ity of mg tablet 00:00: MOUTH [place] 00 TWICE Medical DAILY Branch gabapentin 2022-0 Yes [id number] 300mg Take 1 [facility] 300 mg 1-19 capsule by ity of capsule 00:00: mouth in [place] 00 the Medical morning Branch and 1 capsule at noon and 1 capsule in the evening. carBAMazepi 2022-0 Yes [id number] 200mg Take 2 [facility] ne 100 mg 1-19 tablets by ity of 12 hr 00:00: mouth at [place] tablet 00 bedtime. Medical Branch KCL 10 mEq 2022-0 Yes [id number] 20meq Take 2 [facility] tablet 1-19 tablets by ity of 00:00: mouth in [place] 00 the Medical morning Branch and 2 tablets in the evening. Only take when taking lasix omeprazole 2022-0 Yes [id number] 40mg Take 1 [facility] 40 mg 1-19 capsule by ity of capsule 00:00: mouth in [place] 00 the Medical morning. Branch metoprolol 2022-0 Yes [id number] TAKE 1/2 [facility] tartrate 25 1-19 TABLET BY ity of mg tablet 00:00: MOUTH [place] 00 TWICE Medical DAILY Branch gabapentin 3-0 Yes [id number] 300mg Take 1 [facility] 300 mg 1-19 capsule by ity of capsule 00:00: mouth in [place] 00 the Medical morning Branch and 1 capsule at noon and 1 capsule in the evening. carBAMazepi 2022-0 Yes [id number] 200mg Take 2 [facility] ne 100 mg 1-19 tablets by ity of 12 hr 00:00: mouth at [facility] 00 bedtime. Medical Branch KCL 10 mEq 2022-0 Yes [id number] 20meq Take 2 [facility] tablet 1-19 tablets by ity of 00:00: mouth in [place] [address] the Medical morning Branch and 2 tablets in the evening. Only take when taking lasix omeprazole 2022-0 Yes [id number] 40mg Take 1 [facility] 40 mg 1-19 capsule by ity of capsule 00:00: mouth in [place] [address] the Medical morning. Branch metoprolol 2022-0 Yes [id number] TAKE 1/2 [facility] tartrate 25 1-19 TABLET BY ity of mg tablet 00:00: MOUTH [place] [address] TWICE Medical DAILY Branch gabapentin 3-0 Yes [id number] 300mg Take 1 [facility] 300 mg 1-19 capsule by ity of capsule 00:00: mouth in [place] [address] the Medical morning Branch and 1 capsule at noon and 1 capsule in the evening. carBAMazepi 3-0 Yes [id number] 200mg Take 2 [facility] ne 100 mg 1-19 tablets by ity of 12 hr 00:00: mouth at [facility] 00 bedtime. Medical Branch KCL 10 mEq 2022-0 Yes [id number] 20meq Take 2 [facility] tablet 1-19 tablets by ity of 00:00: mouth in [place] [address] the Medical morning Branch and 2 tablets in the evening. Only take when taking lasix omeprazole 2022-0 Yes [id number] 40mg Take 1 [facility] 40 mg 1-19 capsule by ity of capsule 00:00: mouth in [place] 00 the Medical morning. Branch metoprolol 2022-0 Yes [id number] TAKE 1/2 [facility] tartrate 25 1-19 TABLET BY ity of mg tablet 00:00: MOUTH [place] 00 TWICE Medical DAILY Branch gabapentin 3-0 Yes [id number] 300mg Take 1 [facility] 300 mg 1-19 capsule by ity of capsule 00:00: mouth in [place] 00 the Medical morning Branch and 1 capsule at noon and 1 capsule in the evening. carBAMazepi 2023-0 Yes [id number] 200mg Take 2 [facility] ne 100 mg 1-19 tablets by ity of 12 hr 00:00: mouth at [place] tablet 00 bedtime. Medical Branch KCL 10 mEq 2022-0 Yes [id number] 20meq Take 2 [facility] tablet 1-19 tablets by ity of 00:00: mouth in [place] 00 the Medical morning Branch and 2 tablets in the evening. Only take when taking lasix omeprazole 2022-0 Yes [id number] 40mg Take 1 [facility] 40 mg 1-19 capsule by ity of capsule 00:00: mouth in [place] 00 the Medical morning. Branch metoprolol 2022-0 Yes [id number] TAKE 1/2 [facility] tartrate 25 1-19 TABLET BY ity of mg tablet 00:00: MOUTH [place] 00 TWICE Medical DAILY Branch gabapentin 2022-0 Yes [id number] 300mg Take 1 [facility] 300 mg 1-19 capsule by ity of capsule 00:00: mouth in [place] 00 the Medical morning Branch and 1 capsule at noon and 1 capsule in the evening. carBAMazepi 3-0 Yes [id number] 200mg Take 2 [facility] ne 100 mg 1-19 tablets by ity of 12 hr 00:00: mouth at [place] tablet 00 bedtime. Medical Branch KCL 10 mEq 2022-0 Yes [id number] 20meq Take 2 [facility] tablet 1-19 tablets by ity of 00:00: mouth in [place] 00 the Medical morning Branch and 2 tablets in the evening. Only take when taking lasix omeprazole 2022-0 Yes [id number] 40mg Take 1 [facility] 40 mg 1-19 capsule by ity of capsule 00:00: mouth in [place] [address] the Medical morning. Branch metoprolol 2022-0 Yes [id number] TAKE 1/2 [facility] tartrate 25 1-19 TABLET BY ity of mg tablet 00:00: MOUTH [place] 00 TWICE Medical DAILY Branch gabapentin 3-0 Yes [id number] 300mg Take 1 [facility] 300 mg 1-19 capsule by ity of capsule 00:00: mouth in [place] 00 the Medical morning Branch and 1 capsule at noon and 1 capsule in the evening. carBAMazepi 2023-0 Yes [id number] 200mg Take 2 [facility] ne 100 mg 1-19 tablets by ity of 12 hr 00:00: mouth at [place] tablet 00 bedtime. Medical Branch KCL 10 mEq 2022-0 Yes [id number] 20meq Take 2 [facility] tablet 1-19 tablets by ity of 00:00: mouth in [place] 00 the Medical morning Branch and 2 tablets in the evening. Only take when taking lasix omeprazole 2022-0 Yes [id number] 40mg Take 1 [facility] 40 mg 1-19 capsule by ity of capsule 00:00: mouth in [place] 00 the Medical morning. Branch metoprolol 2022-0 Yes [id number] TAKE 1/2 [facility] tartrate 25 1-19 TABLET BY ity of mg tablet 00:00: MOUTH [place] [address] TWICE Medical DAILY Branch gabapentin 3-0 Yes [id number] 300mg Take 1 [facility] 300 mg 1-19 capsule by ity of capsule 00:00: mouth in [place] 00 the Medical morning Branch and 1 capsule at noon and 1 capsule in the evening. carBAMazepi 3-0 Yes [id number] 200mg Take 2 [facility] ne 100 mg 1-19 tablets by ity of 12 hr 00:00: mouth at [place] tablet 00 bedtime. Medical Branch KCL 10 mEq 2022-0 Yes [id number] 20meq Take 2 [facility] tablet 1-19 tablets by ity of 00:00: mouth in [place] [address] the Medical morning Branch and 2 tablets in the evening. Only take when taking lasix omeprazole 3-0 Yes [id number] 40mg Take 1 [facility] 40 mg 1-19 capsule by [facility] of capsule 00:00: mouth in [place] [address] the Medical morning. Branch metoprolol 3-0 Yes [id number] TAKE 1/2 [facility] tartrate 25 1-19 TABLET BY ity of mg tablet 00:00: MOUTH [place] [address] TWICE Medical DAILY Branch gabapentin 2023-0 Yes [id number] 300mg Take 1 [facility] 300 mg 1-19 capsule by it[facility] of capsule 00:00: mouth in [place] 00 the Medical morning Branch and 1 capsule at noon and 1 capsule in the evening. carBAMazepi 2022-0 Yes [id number] 200mg Take 2 [facility] ne 100 mg 1-19 tablets by it[facility] of 12 hr 00:00: mouth at [place] tablet 00 bedtime. Medical Branch KCL 10 mEq 2022-0 Yes [id number] 20meq Take 2 [facility] tablet 1-19 tablets by ity of 00:00: mouth in [place] 00 the Medical morning Branch and 2 tablets in the evening. Only take when taking lasix omeprazole 2022-0 Yes [id number] 40mg Take 1 [facility] 40 mg 1-19 capsule by it[facility] of capsule 00:00: mouth in [place] [address] the Medical morning. Branch metoprolol 2022-0 Yes [id number] TAKE 1/2 [facility] tartrate 25 1-19 TABLET BY ity of mg tablet 00:00: MOUTH [place] [address] TWICE Medical DAILY Branch gabapentin 2022-0 Yes [id number] 300mg Take 1 [facility] 300 mg 1-19 capsule by ity of capsule 00:00: mouth in [place] 00 the Medical morning Branch and 1 capsule at noon and 1 capsule in the evening. carBAMazepi 2022-0 Yes [id number] 200mg Take 2 [facility] ne 100 mg 1-19 tablets by ity of 12 hr 00:00: mouth at [place] tablet 00 bedtime. Medical Branch KCL 10 mEq 2022-0 Yes [id number] 20meq Take 2 [facility] tablet 1-19 tablets by ity of 00:00: mouth in [place] the Medical morning Branch and 2 tablets in the evening. Only take when taking lasix omeprazole 2022-0 Yes [id number] 40mg Take 1 [facility] 40 mg 1-19 capsule by ity of capsule 00:00: mouth in [place] [address] the Medical morning. Branch metoprolol 2022-0 Yes [id number] TAKE 1/2 [facility] tartrate 25 1-19 TABLET BY ity of mg tablet 00:00: MOUTH [place] [address] TWICE Medical DAILY Branch gabapentin 3-0 Yes [id number] 300mg Take 1 [facility] 300 mg 1-19 capsule by [facility] of capsule 00:00: mouth in [place] 00 the Medical morning Branch and 1 capsule at noon and 1 capsule in the evening. carBAMazepi 2022-0 Yes [id number] 200mg Take 2 [facility] ne 100 mg 1-19 tablets by it[facility] of 12 hr 00:00: mouth at [place] tablet 00 bedtime. Medical Branch KCL 10 mEq 2022-0 Yes [id number] 20meq Take 2 [facility] tablet 1-19 tablets by ity of 00:00: mouth in [place] 00 the Medical morning Branch and 2 tablets in the evening. Only take when taking lasix omeprazole 2022-0 Yes [id number] 40mg Take 1 [facility] 40 mg 1-19 capsule by it[facility] of capsule 00:00: mouth in [place] 00 the Medical morning. Branch metoprolol 2022-0 Yes [id number] TAKE 1/2 [facility] tartrate 25 1-19 TABLET BY [facility]y of mg tablet 00:00: MOUTH [place] 00 TWICE Medical DAILY Branch gabapentin 2022-0 Yes [id number] 300mg Take 1 [facility] 300 mg 1-19 capsule by it[facility] of capsule 00:00: mouth in [place] 00 the Medical morning Branch and 1 capsule at noon and 1 capsule in the evening. carBAMazepi 2022-0 Yes [id number] 200mg Take 2 [facility] ne 100 mg 1-19 tablets by [facility] of 12 hr 00:00: mouth at [place] tablet 00 bedtime. Medical Branch KCL 10 mEq 2022-0 Yes [id number] 20meq Take 2 [facility] tablet 1-19 tablets by ity of 00:00: mouth in [place] the Medical morning Branch and 2 tablets in the evening. Only take when taking lasix omeprazole 2022-0 Yes [id number] 40mg Take 1 [facility] 40 mg 1-19 capsule by it[facility] of capsule 00:00: mouth in [place] 00 the Medical morning. Branch metoprolol 2022-0 Yes [id number] TAKE 1/2 [facility] tartrate 25 1-19 TABLET BY ity of mg tablet 00:00: MOUTH [place] 00 TWICE Medical DAILY Branch gabapentin 2022-0 Yes [id number] 300mg Take 1 [facility] 300 mg 1-19 capsule by [facility] of capsule 00:00: mouth in [place] 00 the Medical morning Branch and 1 capsule at noon and 1 capsule in the evening. carBAMazepi 2022-0 Yes [id number] 200mg Take 2 [facility] ne 100 mg 1-19 tablets by [facility] of 12 hr 00:00: mouth at [place] tablet 00 bedtime. Medical Branch KCL 10 mEq 2022-0 Yes [id number] 20meq Take 2 [facility] tablet 1-19 tablets by ity of 00:00: mouth in [place] 00 the Medical morning Branch and 2 tablets in the evening. Only take when taking lasix omeprazole 3-0 Yes [id number] 40mg Take 1 [facility] 40 mg 1-19 capsule by it[facility] of capsule 00:00: mouth in [place] 00 the Medical morning. Branch metoprolol 2023-0 Yes [id number] TAKE 1/2 [facility] tartrate 25 1-19 TABLET BY [facility]y of mg tablet 00:00: MOUTH [place] 00 TWICE Medical DAILY Branch gabapentin 2023-0 Yes [id number] 300mg Take 1 [facility] 300 mg 1-19 capsule by it[facility] of capsule 00:00: mouth in [place] 00 the Medical morning Branch and 1 capsule at noon and 1 capsule in the evening. carBAMazepi 2023-0 Yes [id number] 200mg Take 2 [facility] ne 100 mg 1-19 tablets by ity of 12 hr 00:00: mouth at [place] tablet 00 bedtime. Medical Branch KCL 10 mEq 3-0 Yes [id number] 20meq Take 2 [facility] tablet 1-19 tablets by ity of 00:00: mouth in [place] 00 the Medical morning Branch and 2 tablets in the evening. Only take when taking lasix omeprazole 2022-0 Yes [id number] 40mg Take 1 [facility] 40 mg 1-19 capsule by ity of capsule 00:00: mouth in [place] 00 the Medical morning. Branch metoprolol 3-0 Yes [id number] TAKE 1/2 [facility] tartrate 25 1-19 TABLET BY ity of mg tablet 00:00: MOUTH [place] [address] TWICE Medical DAILY Branch gabapentin 3-0 Yes [id number] 300mg Take 1 [facility] 300 mg 1-19 capsule by ity of capsule 00:00: mouth in [place] 00 the Medical morning Branch and 1 capsule at noon and 1 capsule in the evening. carBAMazepi 2023-0 Yes [id number] 200mg Take 2 [facility] ne 100 mg 1-19 tablets by ity of 12 hr 00:00: mouth at [place] tablet 00 bedtime. Medical Branch KCL 10 mEq 3-0 Yes [id number] 20meq Take 2 [facility] tablet 1-19 tablets by ity of 00:00: mouth in [place] [address] the Medical morning Branch and 2 tablets in the evening. Only take when taking lasix omeprazole 3-0 Yes [id number] 40mg Take 1 [facility] 40 mg 1-19 capsule by it[facility] of capsule 00:00: mouth in [place] 00 the Medical morning. Branch metoprolol 2022-0 Yes [id number] TAKE 1/2 [facility] tartrate 25 1-19 TABLET BY [facility]y of mg tablet 00:00: MOUTH [place] 00 TWICE Medical DAILY Branch gabapentin 3-0 Yes [id number] 300mg Take 1 [facility] 300 mg 1-19 capsule by it[facility] of capsule 00:00: mouth in [place] 00 the Medical morning Branch and 1 capsule at noon and 1 capsule in the evening. carBAMazepi 2023-0 Yes [id number] 200mg Take 2 [facility] ne 100 mg 1-19 tablets by ity of 12 hr 00:00: mouth at [place] tablet 00 bedtime. Medical Branch KCL 10 mEq 2022-0 Yes [id number] 20meq Take 2 [facility] tablet 1-19 tablets by ity of 00:00: mouth in [place] 00 the Medical morning Branch and 2 tablets in the evening. Only take when taking lasix omeprazole 2022-0 Yes [id number] 40mg Take 1 [facility] 40 mg 1-19 capsule by ity of capsule 00:00: mouth in [place] 00 the Medical morning. Branch metoprolol 2022-0 Yes [id number] TAKE 1/2 [facility] tartrate 25 1-19 TABLET BY ity of mg tablet 00:00: MOUTH [place] 00 TWICE Medical DAILY Branch gabapentin 3-0 Yes [id number] 300mg Take 1 [facility] 300 mg 1-19 capsule by it[facility] of capsule 00:00: mouth in [place] 00 the Medical morning Branch and 1 capsule at noon and 1 capsule in the evening. carBAMazepi 3-0 Yes [id number] 200mg Take 2 [facility] ne 100 mg 1-19 tablets by it[facility] of 12 hr 00:00: mouth at [place] tablet 00 bedtime. Medical Branch KCL 10 mEq 2022-0 Yes [id number] 20meq Take 2 [facility] tablet 1-19 tablets by ity of 00:00: mouth in [place] 00 the Medical morning Branch and 2 tablets in the evening. Only take when taking lasix omeprazole 2022-0 Yes [id number] 40mg Take 1 [facility] 40 mg 1-19 capsule by it[facility] of capsule 00:00: mouth in [place] 00 the Medical morning. Branch metoprolol 2022-0 Yes [id number] TAKE 1/2 [facility] tartrate 25 1-19 TABLET BY [facility]y of mg tablet 00:00: MOUTH [place] 00 TWICE Medical DAILY Branch gabapentin 3-0 Yes [id number] 300mg Take 1 [facility] 300 mg 1-19 capsule by ity of capsule 00:00: mouth in [place] 00 the Medical morning Branch and 1 capsule at noon and 1 capsule in the evening. carBAMazepi 2023-0 Yes [id number] 200mg Take 2 [facility] ne 100 mg 1-19 tablets by ity of 12 hr 00:00: mouth at [place] tablet 00 bedtime. Medical Branch KCL 10 mEq 2022-0 Yes [id number] 20meq Take 2 [facility] tablet 1-19 tablets by ity of 00:00: mouth in [place] 00 the Medical morning Branch and 2 tablets in the evening. Only take when taking lasix omeprazole 2022-0 Yes [id number] 40mg Take 1 [facility] 40 mg 1-19 capsule by ity of capsule 00:00: mouth in [place] [address] the Medical morning. Branch metoprolol 3-0 Yes [id number] TAKE 1/2 [facility] tartrate 25 1-19 TABLET BY ity of mg tablet 00:00: MOUTH [place] [address] TWICE Medical DAILY Branch gabapentin 3-0 Yes [id number] 300mg Take 1 [facility] 300 mg 1-19 capsule by ity of capsule 00:00: mouth in [place] the Medical morning Branch and 1 capsule at noon and 1 capsule in the evening. carBAMazepi 3-0 Yes [id number] 200mg Take 2 [facility] ne 100 mg 1-19 tablets by [facility]y of 12 hr 00:00: mouth at [place] tablet 00 bedtime. Medical Branch KCL 10 mEq 2022-0 Yes [id number] 20meq Take 2 [facility] tablet 1-19 tablets by ity of 00:00: mouth in [place] the Medical morning Branch and 2 tablets in the evening. Only take when taking lasix omeprazole 2022-0 Yes [id number] 40mg Take 1 [facility] 40 mg 1-19 capsule by ity of capsule 00:00: mouth in [place] [address] the Medical morning. Branch metoprolol 3-0 Yes [id number] TAKE 1/2 [facility] tartrate 25 1-19 TABLET BY ity of mg tablet 00:00: MOUTH [place] [address] TWICE Medical DAILY Branch gabapentin 2023-0 Yes [id number] 300mg Take 1 [facility] 300 mg 1-19 capsule by ity of capsule 00:00: mouth in [place] the Medical morning Branch and 1 capsule at noon and 1 capsule in the evening. carBAMazepi 3-0 Yes [id number] 200mg Take 2 [facility] ne 100 mg 1-19 tablets by it[facility] of 12 hr 00:00: mouth at [place] tablet 00 bedtime. Medical Branch KCL 10 mEq 2022-0 Yes [id number] 20meq Take 2 [facility] tablet 1-19 tablets by ity of 00:00: mouth in [place] 00 the Medical morning Branch and 2 tablets in the evening. Only take when taking lasix omeprazole 2022-0 Yes [id number] 40mg Take 1 [facility] 40 mg 1-19 capsule by it[facility] of capsule 00:00: mouth in [place] 00 the Medical morning. Branch metoprolol 2022-0 Yes [id number] TAKE 1/2 [facility] tartrate 25 1-19 TABLET BY ity of mg tablet 00:00: MOUTH [place] 00 TWICE Medical DAILY Branch gabapentin 2022-0 Yes [id number] 300mg Take 1 [facility] 300 mg 1-19 capsule by ity of capsule 00:00: mouth in [place] 00 the Medical morning Branch and 1 capsule at noon and 1 capsule in the evening. carBAMazepi 2022-0 Yes [id number] 200mg Take 2 [facility] ne 100 mg 1-19 tablets by ity of 12 hr 00:00: mouth at [place] tablet 00 bedtime. Medical Branch KCL 10 mEq 2022-0 Yes [id number] 20meq Take 2 [facility] tablet 1-19 tablets by ity of 00:00: mouth in [place] 00 the Medical morning Branch and 2 tablets in the evening. Only take when taking lasix omeprazole 2022-0 Yes [id number] 40mg Take 1 [facility] 40 mg 1-19 capsule by ity of capsule 00:00: mouth in [place] 00 the Medical morning. Branch metoprolol 2022-0 Yes [id number] TAKE 1/2 [facility] tartrate 25 1-19 TABLET BY ity of mg tablet 00:00: MOUTH [place] [address] TWICE Medical DAILY Branch gabapentin 3-0 Yes [id number] 300mg Take 1 [facility] 300 mg 1-19 capsule by ity of capsule 00:00: mouth in [place] 00 the Medical morning Branch and 1 capsule at noon and 1 capsule in the evening. carBAMazepi 3-0 Yes [id number] 200mg Take 2 [facility] ne 100 mg 1-19 tablets by ity of 12 hr 00:00: mouth at [place] tablet 00 bedtime. Medical Branch KCL 10 mEq 2022-0 Yes [id number] 20meq Take 2 [facility] tablet 1-19 tablets by ity of 00:00: mouth in [place] the Medical morning Branch and 2 tablets in the evening. Only take when taking lasix omeprazole 2022-0 Yes [id number] 40mg Take 1 [facility] 40 mg 1-19 capsule by ity of capsule 00:00: mouth in [place] [address] the Medical morning. Branch gabapentin 2022-0 Yes [id number] 300mg Take 1 [facility] 300 mg 1-19 capsule by it[facility] of capsule 00:00: mouth in [place] [address] the Medical morning Branch and 1 capsule at noon and 1 capsule in the evening. carBAMazepi 3-0 Yes [id number] 200mg Take 2 [facility] ne 100 mg 1-19 tablets by ity of 12 hr 00:00: mouth at [place] tablet 00 bedtime. Medical Branch KCL 10 mEq 2022-0 Yes [id number] 20meq Take 2 [facility] tablet 1-19 tablets by ity of 00:00: mouth in [place] the Medical morning Branch and 2 tablets in the evening. Only take when taking lasix omeprazole 2022-0 Yes [id number] 40mg Take 1 [facility] 40 mg 1-19 capsule by ity of capsule 00:00: mouth in [place] [address] the Medical morning. Branch gabapentin 2022-0 Yes [id number] 300mg Take 1 [facility] 300 mg 1-19 capsule by ity of capsule 00:00: mouth in [place] [address] the Medical morning Branch and 1 capsule at noon and 1 capsule in the evening. carBAMazepi 3-0 Yes [id number] 200mg Take 2 [facility] ne 100 mg 1-19 tablets by ity of 12 hr 00:00: mouth at [place] tablet 00 bedtime. Medical Branch KCL 10 mEq 2022-0 Yes [id number] 20meq Take 2 [facility] tablet 1-19 tablets by ity of 00:00: mouth in [place] [address] the Medical morning Branch and 2 tablets in the evening. Only take when taking lasix omeprazole 2022-0 Yes [id number] 40mg Take 1 [facility] 40 mg 1-19 capsule by ity of capsule 00:00: mouth in [place] [address] the Medical morning. Branch gabapentin 2022-0 Yes [id number] 300mg Take 1 [facility] 300 mg 1-19 capsule by ity of capsule 00:00: mouth in [place] 00 the Medical morning Branch and 1 capsule at noon and 1 capsule in the evening. carBAMazepi 3-0 Yes [id number] 200mg Take 2 [facility] ne 100 mg 1-19 tablets by ity of 12 hr 00:00: mouth at [place] tablet 00 bedtime. Medical Branch KCL 10 mEq 2022-0 Yes [id number] 20meq Take 2 [facility] tablet 1-19 tablets by ity of 00:00: mouth in [place] 00 the Medical morning Branch and 2 tablets in the evening. Only take when taking lasix omeprazole 2022-0 Yes [id number] 40mg Take 1 [facility] 40 mg 1-19 capsule by ity of capsule 00:00: mouth in [place] [address] the Medical morning. Branch gabapentin 2022-0 Yes [id number] 300mg Take 1 [facility] 300 mg 1-19 capsule by ity of capsule 00:00: mouth in [place] [address] the Medical morning Branch and 1 capsule at noon and 1 capsule in the evening. carBAMazepi 2022-0 Yes [id number] 200mg Take 2 [facility] ne 100 mg 1-19 tablets by ity of 12 hr 00:00: mouth at [place] tablet 00 bedtime. Medical Branch KCL 10 mEq 2022-0 Yes [id number] 20meq Take 2 [facility] tablet 1-19 tablets by ity of 00:00: mouth in [place] [address] the Medical morning Branch and 2 tablets in the evening. Only take when taking lasix omeprazole 2022-0 Yes [id number] 40mg Take 1 [facility] 40 mg 1-19 capsule by ity of capsule 00:00: mouth in [place] [address] the Medical morning. Branch gabapentin 2022-0 Yes [id number] 300mg Take 1 [facility] 300 mg 1-19 capsule by ity of capsule 00:00: mouth in [place] [address] the Medical morning Branch and 1 capsule at noon and 1 capsule in the evening. carBAMazepi 3-0 Yes [id number] 200mg Take 2 [facility] ne 100 mg 1-19 tablets by ity of 12 hr 00:00: mouth at [place] tablet 00 bedtime. Medical Branch KCL 10 mEq 2022-0 Yes [id number] 20meq Take 2 [facility] tablet 1-19 tablets by ity of 00:00: mouth in [place] [address] the Medical morning Branch and 2 tablets in the evening. Only take when taking lasix omeprazole 2022-0 Yes [id number] 40mg Take 1 [facility] 40 mg 1-19 capsule by ity of capsule 00:00: mouth in [place] the Medical morning. Branch gabapentin 2022-0 Yes [id number] 300mg Take 1 [facility] 300 mg 1-19 capsule by ity of capsule 00:00: mouth in [place] the Medical morning Branch and 1 capsule at noon and 1 capsule in the evening. carBAMazepi 2022-0 Yes [id number] 200mg Take 2 [facility] ne 100 mg 1-19 tablets by ity of 12 hr 00:00: mouth at [place] tablet 00 bedtime. Medical Branch KCL 10 mEq 2022-0 Yes [id number] 20meq Take 2 [facility] tablet 1-19 tablets by ity of 00:00: mouth in [place] the Medical morning Branch and 2 tablets in the evening. Only take when taking lasix omeprazole 2022-0 Yes [id number] 40mg Take 1 [facility] 40 mg 1-19 capsule by ity of capsule 00:00: mouth in [place] the Medical morning. Branch gabapentin 2022-0 Yes [id number] 300mg Take 1 [facility] 300 mg 1-19 capsule by ity of capsule 00:00: mouth in [place] the Medical morning Branch and 1 capsule at noon and 1 capsule in the evening. carBAMazepi 2022-0 Yes [id number] 200mg Take 2 [facility] ne 100 mg 1-19 tablets by ity of 12 hr 00:00: mouth at [place] tablet 00 bedtime. Medical Branch KCL 10 mEq 2022-0 Yes [id number] 20meq Take 2 [facility] tablet 1-19 tablets by ity of 00:00: mouth in [place] the Medical morning Branch and 2 tablets in the evening. Only take when taking lasix omeprazole 2022-0 Yes [id number] 40mg Take 1 [facility] 40 mg 1-19 capsule by ity of capsule 00:00: mouth in [place] [address] the Medical morning. Branch gabapentin 2022-0 Yes [id number] 300mg Take 1 [facility] 300 mg 1-19 capsule by ity of capsule 00:00: mouth in [place] the Medical morning Branch and 1 capsule at noon and 1 capsule in the evening. carBAMazepi 3-0 Yes [id number] 200mg Take 2 [facility] ne 100 mg 1-19 tablets by ity of 12 hr 00:00: mouth at [place] tablet 00 bedtime. Medical Branch KCL 10 mEq 2022-0 Yes [id number] 20meq Take 2 [facility] tablet 1-19 tablets by ity of 00:00: mouth in [place] 00 the Medical morning Branch and 2 tablets in the evening. Only take when taking lasix omeprazole 2022-0 Yes [id number] 40mg Take 1 [facility] 40 mg 1-19 capsule by ity of capsule 00:00: mouth in [place] 00 the Medical morning. Branch gabapentin 2022-0 Yes [id number] 300mg Take 1 [facility] 300 mg 1-19 capsule by ity of capsule 00:00: mouth in [place] 00 the Medical morning Branch and 1 capsule at noon and 1 capsule in the evening. carBAMazepi 2022-0 Yes [id number] 200mg Take 2 [facility] ne 100 mg 1-19 tablets by ity of 12 hr 00:00: mouth at [place] [facility] 00 bedtime. Medical Branch KCL 10 mEq 2022-0 Yes [id number] 20meq Take 2 [facility] tablet 1-19 tablets by ity of 00:00: mouth in [place] 00 the Medical morning Branch and 2 tablets in the evening. Only take when taking lasix omeprazole 2022-0 Yes [id number] 40mg Take 1 [facility] 40 mg 1-19 capsule by ity of capsule 00:00: mouth in [place] 00 the Medical morning. Branch metoprolol 2022-2022- No [id number] TAKE 1/2 [facility] tartrate 25 1-19 10-11 TABLET BY it y of mg tablet 00:00: 00:00 MOUTH [place] 00 :00 TWICE Medical DAILY Branch metoprolol 2022-0 2022- No [id number] TAKE 1/2 [facility] tartrate 25 1-19 10-11 TABLET BY it y of mg tablet 00:00: 00:00 MOUTH [place] 00 :00 TWICE Medical DAILY Branch busPIRone 2022-0 2022- No [id number] TAKE 1/2 [facility] 15 mg 10-13- TO 1 ity of tablet 00:00: 00:00 TABLET BY [place] 00 :00 [facility] Medical TWICE [place] DAILY NEEDED FOR ANXIETY DULoxetine 2022-2022- No [id number] 60mg Take 1 [facility] 60 mg -13 05- capsule by ity of capsule 00:00: 00:00 mouth [place] 00 :00 every Medical morning. Branch furosemide 2022-0 2022- No [id number] TAKE 1 [facility] 40 mg 10-13 TABLET BY ity of tablet 00:00: 00:00 MOUTH [place] 00 :00 EVERY Medical MORNING Branch AND EVERY EVENING levothyroxi 2022- No [id number] 175ug Take 1 [facility] ne 175 mcg 10-13 tablet by ity of tablet 00:00: 00:00 mouth [place] 00 :00 every Medical morning. Branch rosuvastati 2022- No [id number] 20mg Take 1 [facility] n 20 mg 10-13 tablet by ity of tablet 00:00: 00:00 mouth at [place] 00 :00 bedtime. Medical Branch busPIRone 2022- No [id number] TAKE 1/2 [facility] 15 mg 10-13 TO 1 ity of tablet 00:00: 00:00 TABLET BY [place] 00 :00 MOUTH Medical TWICE Branch DAILY NEEDED FOR ANXIETY DULoxetine 2022- No [id number] 60mg Take 1 [facility] 60 mg 10-13 capsule by ity of capsule 00:00: 00:00 mouth [place] 00 :00 every Medical morning. Branch furosemide 2022- No [id number] TAKE 1 [facility] 40 mg 10-13 TABLET BY ity of tablet 00:00: 00:00 MOUTH [place] 00 :00 EVERY Medical MORNING Branch AND EVERY EVENING levothyroxi 2022- No [id number] 175ug Take 1 [facility] ne 175 mcg 10-13 tablet by ity of tablet 00:00: 00:00 mouth [place] 00 :00 every Medical morning. Branch rosuvastati 2022- No [id number] 20mg Take 1 [facility] n 20 mg 10-13 tablet by ity of tablet 00:00: 00:00 mouth at [place] 00 :00 bedtime. Medical Branch ondansetron 2022- No [id number] TAKE 1 [facility] 4 mg tablet 10-13 TABLET BY it y of 00:00: 00:00 MOUTH [place] 00 :00 EVERY 8 Medical HOURS Branch NEEDED FOR NAUSEA OR VOMITING QUEtiapine 2022- No [id number] 400mg Take 1 [facility] 400 mg 10-13 tablet by ity of tablet 00:00: 00:00 mouth at [place] 00 :00 bedtime. Medical ADDITIONAL Branch REFILLS PER PSYCHIATRY ondansetron 2022- No [id number] TAKE 1 [facility] 4 mg tablet 10-13 TABLET BY it y of 00:00: 00:00 MOUTH [place] 00 :00 EVERY 8 Medical HOURS Branch NEEDED FOR NAUSEA OR VOMITING QUEtiapine 2022- No [id number] 400mg Take 1 [facility] 400 mg 10-13 tablet by ity of tablet 00:00: 00:00 mouth at [place] 00 :00 bedtime. Medical ADDITIONAL Branch REFILLS PER PSYCHIATRY Insulin 2022- No [id number] ADMINISTER [facility] Glargine 10-13 56 UNITS ity of ([place] 00:00: 00:[place] 00 :00 SKIN TWICE Medic al U-100 DAILY Branch INSULIN) 100 unit/mL (3 mL) injection carBAMazepi 2021-09 Yes [id number] 200mg TAKE 2 [facility] ne 100 mg 2-29 TABLETS BY ity of 12 hr 00:00: MOUTH AT [place] tablet 00 BEDTIME Medical Branch busPIRone 2021-09 Yes [id number] TAKE 1/2 [facility] 15 mg 2-29 TO 1 ity of tablet 00:00: TABLET BY [place] 00 MOUTH Medical TWICE Branch DAILY NEEDED FOR ANXIETY furosemide 2021-09 Yes [id number] TAKE 1 [facility] 40 mg 2-29 TABLET BY ity of tablet 00:00: MOUTH [place] 00 EVERY Medical MORNING Branch AND EVERY EVENING gabapentin 2021-09 Yes [id number] TAKE 1 [facility] 300 mg 2-29 CAPSULE BY ity of capsule 00:00: MOUTH IN [place] 00 THE Medical MORNING Branch AND IN THE EVENING levothyroxi 2021-09 Yes [id number] TAKE 1 [facility] ne 175 mcg 2-29 TABLET BY ity of tablet 00:00: MOUTH [place] [address] EVERY Medical MORNING Branch DULoxetine 2021-09 Yes [id number] TAKE 1 [facility] 60 mg 2-29 CAPSULE BY ity of capsule 00:00: MOUTH [place] [address] EVERY Medical MORNING Branch carBAMazepi 2021-09 Yes [id number] 200mg TAKE 2 [facility] ne 100 mg 2-29 TABLETS BY ity of 12 hr 00:00: MOUTH AT [place] tablet 00 BEDTIME Medical Branch busPIRone 2021-09 Yes [id number] TAKE 1/2 [facility] 15 mg 2-29 TO 1 ity of tablet 00:00: TABLET BY [address] Medical TWICE Branch DAILY NEEDED FOR ANXIETY furosemide 2021-09 Yes [id number] TAKE 1 [facility] 40 mg 2-29 TABLET BY ity of tablet 00:00: MOUTH [place] EVERY Medical MORNING Branch AND EVERY EVENING gabapentin 2021-09 Yes [id number] TAKE 1 [facility] 300 mg 2-29 CAPSULE BY ity of capsule 00:00: MOUTH IN [place] [address] THE Medical MORNING Branch AND IN THE EVENING levothyroxi 2021-09 Yes [id number] TAKE 1 [facility] ne 175 mcg 2-29 TABLET BY ity of tablet 00:00: MOUTH [place] EVERY Medical MORNING Branch DULoxetine 2021-09 Yes [id number] TAKE 1 [facility] 60 mg 2-29 CAPSULE BY ity of capsule 00:00: MOUTH [place] [address] EVERY Medical MORNING Branch carBAMazepi 2021-09 Yes [id number] 200mg TAKE 2 [facility] ne 100 mg 2-29 TABLETS BY ity of 12 hr 00:00: MOUTH AT [place] [facility] 00 BEDTIME Medical Branch busPIRone 2021-09 Yes [id number] TAKE 1/2 [facility] 15 mg 2-29 TO 1 ity of tablet 00:00: TABLET BY [address] Medical TWICE [place] DAILY NEEDED FOR ANXIETY furosemide 2021-09 Yes [id number] TAKE 1 [facility] 40 mg 2-29 TABLET BY ity of tablet 00:00: MOUTH [place] EVERY Medical MORNING Branch AND EVERY EVENING gabapentin 2021-09 Yes [id number] TAKE 1 [facility] 300 mg 2-29 CAPSULE BY ity of capsule 00:00: MOUTH IN [place] THE Medical MORNING Branch AND IN THE EVENING levothyroxi 2021-09 Yes [id number] TAKE 1 [facility] ne 175 mcg 2-29 TABLET BY ity of tablet 00:00: MOUTH [place] [address] EVERY Medical MORNING Branch DULoxetine 2021-09 Yes [id number] TAKE 1 [facility] 60 mg 2-29 CAPSULE BY ity of capsule 00:00: MOUTH [address] Medical MORNING Branch carBAMazepi 2021-09 Yes [id number] 200mg TAKE 2 [facility] ne 100 mg 2-29 TABLETS BY ity of 12 hr 00:00: MOUTH AT [place] tablet 00 BEDTIME Medical Branch busPIRone 2021-09 Yes [id number] TAKE 1/2 [facility] 15 mg 2-29 TO 1 ity of tablet 00:00: TABLET BY [address] Medical TWICE [place] DAILY NEEDED FOR ANXIETY furosemide 2021-09 Yes [id number] TAKE 1 [facility] 40 mg 2-29 TABLET BY [facility] tablet 00:00: MOUTH [place] 00 EVERY Medical MORNING Branch AND EVERY EVENING gabapentin 2021-09 Yes [id number] TAKE 1 [facility] 300 mg 2-29 CAPSULE BY [facility] capsule 00:00: MOUTH IN [place] 00 THE Medical MORNING Branch AND IN THE EVENING levothyroxi 2021-09 Yes [id number] TAKE 1 [facility] ne 175 mcg 2-29 TABLET BY [facility] tablet 00:00: MOUTH [place] EVERY Medical MORNING Branch DULoxetine 2021-09 Yes [id number] TAKE 1 [facility] 60 mg 2-29 CAPSULE BY [facility] capsule 00:00: MOUTH [place] EVERY Medical MORNING Branch carBAMazepi 2021-09 Yes [id number] 200mg TAKE 2 [facility] ne 100 mg 2-29 TABLETS BY [facility] 12 hr 00:00: MOUTH AT [place] tablet 00 BEDTIME Medical Branch busPIRone 2021-09 Yes [id number] TAKE 1/2 [facility] 15 mg 2-29 TO 1 [facility] tablet 00:00: TABLET BY [place] [address] MOUTH Medical TWICE Branch DAILY NEEDED FOR ANXIETY furosemide 2021-09 Yes [id number] TAKE 1 [facility] 40 mg 2-29 TABLET BY [facility] tablet 00:00: MOUTH [place] EVERY Medical MORNING Branch AND EVERY EVENING gabapentin 2021-09 Yes [id number] TAKE 1 [facility] 300 mg 2-29 CAPSULE BY [facility] capsule 00:00: MOUTH IN [place] 00 THE Medical MORNING Branch AND IN THE EVENING levothyroxi 2021-09 Yes [id number] TAKE 1 [facility] ne 175 mcg 2-29 TABLET BY [facility] tablet 00:00: MOUTH [place] [address] EVERY Medical MORNING Branch DULoxetine 2021-09 Yes [id number] TAKE 1 [facility] 60 mg 2-29 CAPSULE BY [facility] capsule 00:00: MOUTH [place] [address] EVERY Medical MORNING Branch carBAMazepi 2021-09- No [id number] 200mg TAKE 2 [facility] ne 100 mg 2-29 - TABLETS BY [facility] 12 hr 00:00: 00:00 MOUTH AT [place] tablet 00 :00 BEDTIME Medical Branch busPIRone 2021-09- No [id number] TAKE 1/2 [facility] 15 mg 2-29 - TO 1 [facility] tablet 00:00: 00:00 TABLET BY [place] 00 :00 MOUTH Medical TWICE Branch DAILY NEEDED FOR ANXIETY furosemide 2021-09- No [id number] TAKE 1 [facility] 40 mg 10-13 TABLET BY [facility] tablet 00:00: 00:00 MOUTH [place] 00 :00 EVERY Medical MORNING Branch AND EVERY EVENING gabapentin 2021-09- No [id number] TAKE 1 [facility] 300 mg 10-13 CAPSULE BY [facility] capsule 00:00: 00:00 MOUTH IN [place] 00 :00 THE Medical MORNING Branch AND IN THE EVENING levothyroxi 2021-09- No [id number] TAKE 1 [facility] ne 175 mcg 10-13 TABLET BY [facility] tablet 00:00: 00:00 MOUTH [place] 00 :00 EVERY Medical MORNING Branch DULoxetine 2021-09- No [id number] TAKE 1 [facility] 60 mg 10-13 CAPSULE BY [facility] capsule 00:00: 00:00 MOUTH [place] 00 :00 EVERY Medical MORNING Branch carBAMazepi 2021-09- No [id number] 200mg TAKE 2 [facility] ne 100 mg 10-13 TABLETS BY [facility] 12 hr 00:00: 00:00 MOUTH AT [place] tablet 00 :00 BEDTIME Medical Branch busPIRone 2021-09- No [id number] TAKE 1/2 [facility] 15 mg 10-13 TO 1 [facility] tablet 00:00: 00:00 TABLET BY [place] 00 :00 MOUTH [facility] TWICE Branch DAILY NEEDED FOR ANXIETY furosemide 2021-09- No [id number] TAKE 1 [facility] 40 mg 10-13 TABLET BY [facility] tablet 00:00: 00:00 MOUTH [place] 00 :00 EVERY Medical MORNING Branch AND EVERY EVENING gabapentin 2021-09- No [id number] TAKE 1 [facility] 300 mg 10-13 CAPSULE BY [facility] of capsule 00:00: 00:00 MOUTH IN [place] 00 :00 THE Medical MORNING Branch AND IN THE EVENING levothyroxi 2021-09- No [id number] TAKE 1 [facility] ne 175 mcg 10-13 TABLET BY [facility] tablet 00:00: 00:00 MOUTH [place] 00 :00 EVERY Medical MORNING Branch DULoxetine 2021-09- No [id number] TAKE 1 [facility] 60 mg 10-13 CAPSULE BY [facility] capsule 00:00: 00:00 MOUTH [place] 00 :00 EVERY Medical MORNING Branch carBAMazepi 2021-09- No [id number] 200mg TAKE 2 [facility] ne 100 mg 10-13 TABLETS BY [facility] of 12 hr 00:00: 00:00 MOUTH AT [place] tablet 00 :00 BEDTIME Medical Branch busPIRone 2021-09- No [id number] TAKE 1/2 [facility] 15 mg 10-13 TO 1 [facility] tablet 00:00: 00:00 TABLET BY [place] 00 :00 MOUTH Medical TWICE Branch DAILY NEEDED FOR ANXIETY furosemide 2021-09- No [id number] TAKE 1 [facility] 40 mg 10-13 TABLET BY [facility] tablet 00:00: 00:00 MOUTH [place] 00 :00 EVERY Medical MORNING Branch AND EVERY EVENING gabapentin 2021-09- No [id number] TAKE 1 [facility] 300 mg 10-13 CAPSULE BY [facility] capsule 00:00: 00:00 MOUTH IN [place] 00 :00 THE Medical MORNING Branch AND IN THE EVENING levothyroxi 2021-09- No [id number] TAKE 1 [facility] ne 175 mcg 10-13 TABLET BY [facility] tablet 00:00: 00:00 MOUTH [place] 00 :00 EVERY Medical MORNING Branch DULoxetine 2021-09- No [id number] TAKE 1 [facility] 60 mg 10-13 CAPSULE BY it[facility] of capsule 00:00: 00:00 MOUTH [place] 00 :00 EVERY Medical MORNING Branch carBAMazepi 2021-09- No [id number] 200mg TAKE 2 [facility] ne 100 mg 10-13 TABLETS BY [facility] of 12 hr 00:00: 00:00 MOUTH AT [place] tablet 00 :00 BEDTIME Medical Branch busPIRone 2021-09- No [id number] TAKE 1/2 [facility] 15 mg 10-13 TO 1 [facility] tablet 00:00: 00:00 TABLET BY [place] 00 :00 MOUTH Medical TWICE Branch DAILY NEEDED FOR ANXIETY furosemide 2021-09- No [id number] TAKE 1 [facility] 40 mg 10-13 TABLET BY [facility] tablet 00:00: 00:00 MOUTH [place] 00 :00 EVERY Medical MORNING Branch AND EVERY EVENING gabapentin 2021-09- No [id number] TAKE 1 [facility] 300 mg 10-13 CAPSULE BY [facility] of capsule 00:00: 00:00 MOUTH IN [place] 00 :00 THE Medical MORNING Branch AND IN THE EVENING levothyroxi 2021-09- No [id number] TAKE 1 [facility] ne 175 mcg 10-13 TABLET BY [facility] of tablet 00:00: 00:00 MOUTH [place] 00 :00 EVERY Medical MORNING Branch DULoxetine 2021-09- No [id number] TAKE 1 [facility] 60 mg 10-13 CAPSULE BY it[facility] of capsule 00:00: 00:00 MOUTH [place] 00 :00 EVERY Medical MORNING Branch TRAZODONE 2021-09 Yes [id number] TAKE 1 [facility] 100 mg 2-06 TABLET BY [facility] tablet 00:00: MOUTH [place] 00 EVERY Medical NIGHT Branch TRAZODONE 2021-09 Yes [id number] TAKE 1 [facility] n[facility] 100 mg 2-06 TABLET BY [facility] tablet 00:00: MOUTH [place] 00 EVERY Medical NIGHT Branch TRAZODONE 2021-09 Yes [id number] TAKE 1 [facility] 100 mg 2-06 TABLET BY [facility] tablet 00:00: MOUTH [place] 00 EVERY Medical NIGHT Branch TRAZODONE 2021-09 Yes [id number] TAKE 1 [facility] nivers 100 mg 2-06 TABLET BY [facility] tablet 00:00: MOUTH [place] 00 EVERY Medical NIGHT Branch TRAZODONE 2021-09 Yes [id number] TAKE 1 U nivers 100 mg 2-06 TABLET BY it[facility] of tablet 00:00: MOUTH [place] 00 EVERY Medical NIGHT Branch TRAZODONE 2021-09 Yes [id number] TAKE 1 [facility] nivers 100 mg 2-06 TABLET BY it[facility] of tablet 00:00: MOUTH [place] 00 EVERY Medical NIGHT Branch TRAZODONE 2021-09 Yes [id number] TAKE 1 U nivers 100 mg 2-06 TABLET BY it[facility] of tablet 00:00: MOUTH [place] 00 EVERY Medical NIGHT Branch TRAZODONE 2021-09 Yes [id number] TAKE 1 U nivers 100 mg 2-06 TABLET BY it[facility] of tablet 00:00: MOUTH [place] 00 EVERY Medical NIGHT Branch TRAZODONE 2021-09 Yes [id number] TAKE 1 U nivers 100 mg 2-06 TABLET BY it[facility] of tablet 00:00: MOUTH [place] 00 EVERY Medical NIGHT Branch TRAZODONE 2021-09 Yes [id number] TAKE 1 U nivers 100 mg 2-06 TABLET BY [facility] of tablet 00:00: MOUTH [place] 00 EVERY Medical NIGHT Branch TRAZODONE 2021-09 Yes [id number] TAKE 1 U nivers 100 mg 2-06 TABLET BY [facility] of tablet 00:00: MOUTH [place] EVERY Medical NIGHT Branch TRAZODONE 2021-09 Yes [id number] TAKE 1 U nivers 100 mg 2-06 TABLET BY [facility] tablet 00:00: MOUTH [place] EVERY Medical NIGHT Branch TRAZODONE 2021-09 Yes [id number] TAKE 1 [facility] n[facility] 100 mg 2-06 TABLET BY [facility] of tablet 00:00: MOUTH [place] EVERY Medical NIGHT Branch TRAZODONE 2021-09 Yes [id number] TAKE 1 [facility] 100 mg 2-06 TABLET BY it[facility] of tablet 00:00: MOUTH [place] EVERY Medical NIGHT Branch TRAZODONE 2021-09 Yes [id number] TAKE 1 [facility] 100 mg 2-06 TABLET BY [facility] tablet 00:00: MOUTH [place] EVERY Medical NIGHT Branch TRAZODONE 2021-09 Yes [id number] TAKE 1 [facility] nivers 100 mg 2-06 TABLET BY [facility] of tablet 00:00: MOUTH [place] EVERY Medical NIGHT Branch TRAZODONE 2021-09 Yes [id number] TAKE 1 U nivers 100 mg 2-06 TABLET BY ity of tablet 00:00: MOUTH [place] EVERY Medical NIGHT Branch TRAZODONE 2021-09 Yes [id number] TAKE 1 U n[facility] 100 mg 2-06 TABLET BY ity of tablet 00:00: MOUTH [place] EVERY Medical NIGHT Branch TRAZODONE 2021-09 Yes [id number] TAKE 1 [facility] nivers 100 mg 2-06 TABLET BY [facility] of tablet 00:00: MOUTH [place] EVERY Medical NIGHT Branch TRAZODONE 2021-09 Yes [id number] TAKE 1 U nivers 100 mg 2-06 TABLET BY [facility] of tablet 00:00: MOUTH [place] EVERY Medical NIGHT Branch TRAZODONE 2021-09 Yes [id number] TAKE 1 U nivers 100 mg 2-06 TABLET BY ity of tablet 00:00: MOUTH [place] EVERY Medical NIGHT Branch TRAZODONE 2021-09 Yes [id number] TAKE 1 U nivers 100 mg 2-06 TABLET BY ity of tablet 00:00: MOUTH [place] EVERY Medical NIGHT Branch TRAZODONE 2021-09 Yes [id number] TAKE 1 U nivers 100 mg 2-06 TABLET BY ity of tablet 00:00: MOUTH [place] 00 EVERY Medical NIGHT Branch TRAZODONE 2021-09 Yes [id number] TAKE 1 U nivers 100 mg 2-06 TABLET BY ity of tablet 00:00: MOUTH [place] EVERY Medical NIGHT Branch TRAZODONE 2021-09 Yes [id number] TAKE 1 U nivers 100 mg 2-06 TABLET BY ity of tablet 00:00: MOUTH [place] EVERY Medical NIGHT Branch TRAZODONE 2021-09 Yes [id number] TAKE 1 U nivers 100 mg 2-06 TABLET BY ity of tablet 00:00: MOUTH [place] 00 EVERY Medical NIGHT Branch TRAZODONE 2021-09 Yes [id number] TAKE 1 U nivers 100 mg 2-06 TABLET BY ity of tablet 00:00: MOUTH [place] EVERY Medical NIGHT Branch TRAZODONE 2021-09 Yes [id number] TAKE 1 U nivers 100 mg 2-06 TABLET BY ity of tablet 00:00: MOUTH [place] EVERY Medical NIGHT Branch TRAZODONE 2021-09 Yes [id number] TAKE 1 U nivers 100 mg 2-06 TABLET BY ity of tablet 00:00: MOUTH [place] 00 EVERY Medical NIGHT Branch TRAZODONE 2021-09 Yes [id number] TAKE 1 U nivers 100 mg 2-06 TABLET BY ity of tablet 00:00: MOUTH [place] 00 EVERY Medical NIGHT Branch TRAZODONE 2021-09 Yes [id number] TAKE 1 U nivers 100 mg 2-06 TABLET BY ity of tablet 00:00: MOUTH [place] EVERY Medical NIGHT Branch TRAZODONE 2021-09 Yes [id number] TAKE 1 U nivers 100 mg 2-06 TABLET BY ity of tablet 00:00: MOUTH [place] 00 EVERY Medical NIGHT Branch TRAZODONE 2021-09 Yes [id number] TAKE 1 U nivers 100 mg 2-06 TABLET BY ity of tablet 00:00: MOUTH [place] 00 EVERY Medical NIGHT Branch TRAZODONE 2021-09 Yes [id number] TAKE 1 U nivers 100 mg 2-06 TABLET BY ity of tablet 00:00: MOUTH [place] 00 EVERY Medical NIGHT Branch TRAZODONE 2021-09 Yes [id number] TAKE 1 U nivers 100 mg 2-06 TABLET BY ity of tablet 00:00: MOUTH [place] 00 EVERY Medical NIGHT Branch TRAZODONE 2021-09 Yes [id number] TAKE 1 U nivers 100 mg 2-06 TABLET BY ity of tablet 00:00: MOUTH [place] EVERY Medical NIGHT Branch TRAZODONE 2021-09 Yes [id number] TAKE 1 U nivers 100 mg 2-06 TABLET BY ity of tablet 00:00: MOUTH [place] EVERY Medical NIGHT Branch TRAZODONE 2021-09 Yes [id number] TAKE 1 U nivers 100 mg 2-06 TABLET BY ity of tablet 00:00: MOUTH [place] EVERY Medical NIGHT Branch TRAZODONE 2021-09 Yes [id number] TAKE 1 U nivers 100 mg 2-06 TABLET BY ity of tablet 00:00: MOUTH [place] EVERY Medical NIGHT Branch TRAZODONE 2021-09 Yes [id number] TAKE 1 U nivers 100 mg 2-06 TABLET BY ity of tablet 00:00: MOUTH [place] EVERY Medical NIGHT Branch TRAZODONE 2021-09 Yes [id number] TAKE 1 U nivers 100 mg 2-06 TABLET BY ity of tablet 00:00: MOUTH [place] EVERY Medical NIGHT Branch TRAZODONE 2021-09 Yes [id number] TAKE 1 U nivers 100 mg 2-06 TABLET BY ity of tablet 00:00: MOUTH [place] EVERY Medical NIGHT Branch TRAZODONE 2021-09 Yes [id number] TAKE 1 U nivers 100 mg 2-06 TABLET BY ity of tablet 00:00: MOUTH [place] EVERY Medical NIGHT Branch TRAZODONE 2021-09 Yes [id number] TAKE 1 U nivers 100 mg 2-06 TABLET BY ity of tablet 00:00: MOUTH [place] EVERY Medical NIGHT Branch TRAZODONE 2021-09 Yes [id number] TAKE 1 U nivers 100 mg 2-06 TABLET BY ity of tablet 00:00: MOUTH [place] EVERY Medical NIGHT Branch TRAZODONE 2021-09 Yes [id number] TAKE 1 U nivers 100 mg 2-06 TABLET BY ity of tablet 00:00: MOUTH [place] EVERY Medical NIGHT Branch TRAZODONE 2021-09 Yes [id number] TAKE 1 U nivers 100 mg 2-06 TABLET BY ity of tablet 00:00: MOUTH [place] EVERY Medical NIGHT Branch TRAZODONE 2021-09 Yes [id number] TAKE 1 U nivers 100 mg 2-06 TABLET BY ity of tablet 00:00: MOUTH [place] 00 EVERY Medical NIGHT Branch TRAZODONE 2021-09 Yes [id number] TAKE 1 U nivers 100 mg 2-06 TABLET BY ity of tablet 00:00: MOUTH [place] EVERY Medical NIGHT Branch TRAZODONE 2021-09 Yes [id number] TAKE 1 U nivers 100 mg 2-06 TABLET BY ity of tablet 00:00: MOUTH [place] EVERY Medical NIGHT Branch TRAZODONE 2021-09 Yes [id number] TAKE 1 U nivers 100 mg 2-06 TABLET BY ity of tablet 00:00: MOUTH [place] 00 EVERY Medical NIGHT Branch TRAZODONE 2021-09 Yes [id number] TAKE 1 U nivers 100 mg 2-06 TABLET BY ity of tablet 00:00: MOUTH [place] EVERY Medical NIGHT Branch TRAZODONE 2021-09 Yes [id number] TAKE 1 U nivers 100 mg 2-06 TABLET BY ity of tablet 00:00: MOUTH [place] EVERY Medical NIGHT Branch TRAZODONE 2021-09 Yes [id number] TAKE 1 U nivers 100 mg 2-06 TABLET BY ity of tablet 00:00: MOUTH [place] 00 EVERY Medical NIGHT Branch TRAZODONE 2021-09 Yes [id number] TAKE 1 U nivers 100 mg 2-06 TABLET BY ity of tablet 00:00: MOUTH [place] 00 EVERY Medical NIGHT Branch TRAZODONE 2021-09 Yes [id number] TAKE 1 U nivers 100 mg 2-06 TABLET BY ity of tablet 00:00: MOUTH [place] EVERY Medical NIGHT Branch TRAZODONE 2021-09 Yes [id number] TAKE 1 U nivers 100 mg 2-06 TABLET BY ity of tablet 00:00: MOUTH [place] 00 EVERY Medical NIGHT Branch TRAZODONE 2021-09 Yes [id number] TAKE 1 U nivers 100 mg 2-06 TABLET BY ity of tablet 00:00: MOUTH [place] 00 EVERY Medical NIGHT Branch TRAZODONE 2021-09 Yes [id number] TAKE 1 U nivers 100 mg 2-06 TABLET BY ity of tablet 00:00: MOUTH [place] 00 EVERY Medical NIGHT Branch TRAZODONE 2021-09 Yes [id number] TAKE 1 U nivers 100 mg 2-06 TABLET BY ity of tablet 00:00: MOUTH [place] 00 EVERY Medical NIGHT Branch TRAZODONE 2021-09 Yes [id number] TAKE 1 U nivers 100 mg 2-06 TABLET BY ity of tablet 00:00: MOUTH [place] 00 EVERY Medical NIGHT Branch TRAZODONE 2021-09 Yes [id number] TAKE 1 U nivers 100 mg 2-06 TABLET BY ity of tablet 00:00: MOUTH [place] 00 EVERY Medical NIGHT Branch TRAZODONE 2021-09 Yes [id number] TAKE 1 U nivers 100 mg 2-06 TABLET BY ity of tablet 00:00: MOUTH [place] 00 EVERY Medical NIGHT Branch TRAZODONE 2021-09 Yes [id number] TAKE 1 U nivers 100 mg 2-06 TABLET BY ity of tablet 00:00: MOUTH [place] 00 EVERY Medical NIGHT Branch TRAZODONE 2021-09- No [id number] TAKE 1 [facility] 100 mg 2-06 08-22 TABLET BY ity of tablet 00:00: 00:00 MOUTH [place] 00 :00 EVERY Medical NIGHT Branch TRAZODONE 2021-09- No [id number] TAKE 1 [facility] 100 mg 2-06 08-22 TABLET BY ity of tablet 00:00: 00:00 MOUTH [place] 00 :00 EVERY Medical NIGHT Branch [facility] Yes [id number] INJECT [facility] ers 0.25 mg or 1-28 0.5MG ity of 0.5 mg(2 00:00: [place] mg/1.5 mL) 00 SKIN EVERY Med ical [facility] 2021-09 Yes [id number] INJECT Univ ers 0.25 mg or 1-28 0.5MG ity of 0.5 mg(2 00:00: [place] mg/1.5 mL) 00 SKIN EVERY Med ical [facility] 2021-09 Yes [id number] INJECT [facility] ers 0.25 mg or 1-28 0.5MG ity of 0.5 mg(2 00:00: [place]ER [place] mg/1.5 mL) 00 SKIN EVERY Med ical [facility] 2021-09 Yes [id number] INJECT [facility] ers 0.25 mg or 1-28 0.5MG ity of 0.5 mg(2 00:00: [place]ER [place] mg/1.5 mL) 00 SKIN EVERY Med ical [facility] 2021-09 Yes [id number] INJECT [facility] ers 0.25 mg or 1-28 0.5MG ity of 0.5 mg(2 00:00: [place]ER THE [place] mg/1.5 mL) 00 SKIN EVERY Med ical [facility] 2021-09 Yes [id number] INJECT [facility] ers 0.25 mg or 1-28 0.5MG ity of 0.5 mg(2 00:00: [place]ER THE [place] mg/1.5 mL) 00 SKIN EVERY Med ical [facility] 2021-09 Yes [id number] INJECT [facility] ers 0.25 mg or 1-28 0.5MG ity of 0.5 mg(2 00:00: [place]ER THE [place] mg/1.5 mL) 00 SKIN EVERY Med ical [facility] 2021-09 Yes [id number] INJECT [facility] ers 0.25 mg or 1-28 0.5MG ity of 0.5 mg(2 00:00: [place]ER THE [place] mg/1.5 mL) 00 SKIN EVERY Med ical [facility] 2021-09 Yes [id number] INJECT [facility] ers 0.25 mg or 1-28 0.5MG ity of 0.5 mg(2 00:00: [place]ER THE [place] mg/1.5 mL) 00 SKIN EVERY Med ical [facility] 2021-09 Yes [id number] INJECT [facility] ers 0.25 mg or 1-28 0.5MG ity of 0.5 mg(2 00:00: [place]ER THE [place] mg/1.5 mL) 00 SKIN EVERY Med ical [facility] 2021-09 Yes [id number] INJECT [facility] ers 0.25 mg or 1-28 0.5MG ity of 0.5 mg(2 00:00: [place]ER THE [place] mg/1.5 mL) 00 SKIN EVERY Med ical [facility] 2021-09 Yes [id number] INJECT [facility] ers 0.25 mg or 1-28 0.5MG ity of 0.5 mg(2 00:00: [place]ER THE [place] mg/1.5 mL) 00 SKIN EVERY Med ical [facility] 2021-09 Yes [id number] INJECT [facility] ers 0.25 mg or 1-28 0.5MG ity of 0.5 mg(2 00:00: [place]ER THE [place] mg/1.5 mL) 00 SKIN EVERY Med ical [facility] 2021-09 Yes [id number] INJECT [facility] ers 0.25 mg or 1-28 0.5MG ity of 0.5 mg(2 00:00: [place]ER THE [place] mg/1.5 mL) 00 SKIN EVERY Med ical [facility] 2021-09 Yes [id number] INJECT [facility] ers 0.25 mg or 1-28 0.5MG ity of 0.5 mg(2 00:00: [place]ER THE [place] mg/1.5 mL) 00 SKIN EVERY Med ical [facility] 2021-09 Yes [id number] INJECT [facility] ers 0.25 mg or 1-28 0.5MG ity of 0.5 mg(2 00:00: [place]ER THE [place] mg/1.5 mL) 00 SKIN EVERY Med ical [facility] 2021-09 Yes [id number] INJECT [facility] ers 0.25 mg or 1-28 0.5MG ity of 0.5 mg(2 00:00: [place] THE [place] mg/1.5 mL) 00 SKIN EVERY Med ical [facility] 2021-09 Yes [id number] INJECT [facility] ers 0.25 mg or 1-28 0.5MG ity of 0.5 mg(2 00:00: [place]ER THE [place] mg/1.5 mL) 00 SKIN EVERY Med ical [facility] 2021-09 Yes [id number] INJECT [facility] ers 0.25 mg or 1-28 0.5MG ity of 0.5 mg(2 00:00: [place] THE [place] mg/1.5 mL) 00 SKIN EVERY Med ical [facility] 2021-09 Yes [id number] INJECT [facility] ers 0.25 mg or 1-28 0.5MG ity of 0.5 mg(2 00:00: [place]ER THE [place] mg/1.5 mL) 00 SKIN EVERY Med ical [facility] 2021-09 Yes [id number] INJECT [facility] ers 0.25 mg or 1-28 0.5MG ity of 0.5 mg(2 00:00: [place] THE [place] mg/1.5 mL) 00 SKIN EVERY Med ical [facility] 2021-09 Yes [id number] INJECT [facility] ers 0.25 mg or 1-28 0.5MG ity of 0.5 mg(2 00:00: [place]ER THE [place] mg/1.5 mL) 00 SKIN EVERY Med ical [facility] 2021-09 Yes [id number] INJECT [facility] ers 0.25 mg or 1-28 0.5MG ity of 0.5 mg(2 00:00: [place] THE [place] mg/1.5 mL) 00 SKIN EVERY Med ical [facility] 2021-09 Yes [id number] INJECT [facility] ers 0.25 mg or 1-28 0.5MG ity of 0.5 mg(2 00:00: [place] THE [place] mg/1.5 mL) 00 SKIN EVERY Med ical [facility] 2021-09 Yes [id number] INJECT [facility] ers 0.25 mg or 1-28 0.5MG ity of 0.5 mg(2 00:00: [place] THE [place] mg/1.5 mL) 00 SKIN EVERY Med ical [facility] 2021-09 Yes [id number] INJECT [facility] ers 0.25 mg or 1-28 0.5MG ity of 0.5 mg(2 00:00: [place] THE [place] mg/1.5 mL) 00 SKIN EVERY Med ical [facility] 2021-09 Yes [id number] INJECT [facility] ers 0.25 mg or 1-28 0.5MG ity of 0.5 mg(2 00:00: [place] THE [place] mg/1.5 mL) 00 SKIN EVERY Med ical [facility] 2021-09 Yes [id number] INJECT [facility] ers 0.25 mg or 1-28 0.5MG ity of 0.5 mg(2 00:00: [place] THE [place] mg/1.5 mL) 00 SKIN EVERY Med ical [facility] 2021-09 Yes [id number] INJECT [facility] ers 0.25 mg or 1-28 0.5MG ity of 0.5 mg(2 00:00: [place] THE [place] mg/1.5 mL) 00 SKIN EVERY Med ical [facility] 2021-09 Yes [id number] INJECT [facility] ers 0.25 mg or 1-28 0.5MG ity of 0.5 mg(2 00:00: [place] THE [place] mg/1.5 mL) 00 SKIN EVERY Med ical [facility] 2021-09 Yes [id number] INJECT [facility] ers 0.25 mg or 1-28 0.5MG ity of 0.5 mg(2 00:00: [place] THE [place] mg/1.5 mL) 00 SKIN EVERY Med ical [facility] 2021-09 Yes [id number] INJECT [facility] ers 0.25 mg or 1-28 0.5MG ity of 0.5 mg(2 00:00: [place] THE [place] mg/1.5 mL) 00 SKIN EVERY Med ical [facility] 2021-09 Yes [id number] INJECT [facility] ers 0.25 mg or 1-28 0.5MG ity of 0.5 mg(2 00:00: [place] THE [place] mg/1.5 mL) 00 SKIN EVERY Med ical [facility] 2021-09 Yes [id number] INJECT [facility] ers 0.25 mg or 1-28 0.5MG ity of 0.5 mg(2 00:00: [place] THE [place] mg/1.5 mL) 00 SKIN EVERY Med ical [facility] 2021-09 Yes [id number] INJECT [facility] ers 0.25 mg or 1-28 0.5MG ity of 0.5 mg(2 00:00: [place] mg/1.5 mL) 00 SKIN EVERY Med ical [facility] 2021-09 Yes [id number] INJECT [facility] ers 0.25 mg or 1-28 0.5MG ity of 0.5 mg(2 00:00: [place] mg/1.5 mL) 00 SKIN EVERY Med ical [facility] 2021-09 Yes [id number] INJECT [facility] ers 0.25 mg or 1-28 0.5MG ity of 0.5 mg(2 00:00: [place] mg/1.5 mL) 00 SKIN EVERY Med ical [facility] 2021-09 Yes [id number] INJECT [facility] ers 0.25 mg or 1-28 0.5MG ity of 0.5 mg(2 00:00: [place] mg/1.5 mL) 00 SKIN EVERY Med ical [facility] 2021-09 Yes [id number] INJECT [facility] ers 0.25 mg or 1-28 0.5MG ity of 0.5 mg(2 00:00: [place] mg/1.5 mL) 00 SKIN EVERY Med ical [facility] 2021-09 Yes [id number] INJECT [facility] ers 0.25 mg or 1-28 0.5MG ity of 0.5 mg(2 00:00: [place] mg/1.5 mL) 00 SKIN EVERY Med ical [facility] 2021-09- No [id number] INJECT Uni vers 0.25 mg or 1-28 04-20 0.5MG ity of 0.5 mg(2 00:00: 00:00 UNDER THE [place] mg/1.5 mL) 00 :00 SKIN EVERY Med ical [facility] 2021-09- No [id number] INJECT Uni vers 0.25 mg or 1-28 04-20 0.5MG ity of 0.5 mg(2 00:00: 00:00 UNDER THE [place] mg/1.5 mL) 00 :00 SKIN EVERY Med ical PnI[facility] METOPROLOL 2021-09 Yes [id number] TAKE 1/2 Univers TARTRATE 25 1-08 TABLET BY ity of mg tablet 00:00: MOUTH [place] 00 TWICE Medical DAILY Branch METOPROLOL 2021-09 Yes [id number] TAKE 1/2 [facility] TARTRATE 25 1-08 TABLET BY ity of mg tablet 00:00: MOUTH [place] 00 TWICE Medical DAILY Branch METOPROLOL 2021-09 Yes [id number] TAKE 1/2 [facility] TARTRATE 25 1-08 TABLET BY ity of mg tablet 00:00: MOUTH [place] 00 TWICE Medical DAILY Branch METOPROLOL 2021-09 Yes [id number] TAKE 1/2 [facility] TARTRATE 25 1-08 TABLET BY ity of mg tablet 00:00: MOUTH [place] 00 TWICE Medical DAILY Branch METOPROLOL 2021-09 Yes [id number] TAKE 1/2 [facility] TARTRATE 25 1-08 TABLET BY ity of mg tablet 00:00: MOUTH [place] 00 TWICE Medical DAILY Branch METOPROLOL 2021-09 Yes [id number] TAKE 1/2 [facility] TARTRATE 25 1-08 TABLET BY ity of mg tablet 00:00: MOUTH [place] 00 TWICE Medical DAILY Branch METOPROLOL 2021-09 Yes [id number] TAKE 1/2 [facility] TARTRATE 25 1-08 TABLET BY ity of mg tablet 00:00: MOUTH [place] 00 TWICE Medical DAILY Branch METOPROLOL 2021-09 Yes [id number] TAKE 1/2 [facility] TARTRATE 25 1-08 TABLET BY ity of mg tablet 00:00: MOUTH [place] 00 TWICE Medical DAILY Branch METOPROLOL 2021-09 Yes [id number] TAKE 1/2 [facility] TARTRATE 25 1-08 TABLET BY ity of mg tablet 00:00: MOUTH [place] 00 TWICE Medical DAILY Branch METOPROLOL 2021-09 Yes [id number] TAKE 1/2 [facility] TARTRATE 25 1-08 TABLET BY ity of mg tablet 00:00: MOUTH [place] 00 TWICE Medical DAILY Branch METOPROLOL 2021-09 Yes [id number] TAKE 1/2 [facility] TARTRATE 25 1-08 TABLET BY [facility] tablet 00:00: MOUTH [place] 00 TWICE [facility] DAILY [facility] METOPROLOL 2021-09 Yes [id number] TAKE 1/2 [facility] TARTRATE 25 1-08 TABLET BY [facility] tablet 00:00: MOUTH [place] 00 TWICE [facility] DA[facility] METOPROLOL 2021-09 Yes [id number] TAKE 1/2 [facility] TARTRATE 25 1-08 TABLET BY [facility] tablet 00:00: MOUTH [place] 00 TWICE [facility] DA[facility] METOPROLOL 2021-09 Yes [id number] TAKE 1/2 [facility] TARTRATE 25 1-08 TABLET BY [facility] tablet 00:00: MOUTH [place] 00 TWICE [facility] DAILY [facility] METOPROLOL 2021-09- No [id number] TAKE 1/2 [facility] TARTRATE 25 1-08 -19 TABLET BY [facility] tablet 00:00: 00:00 MOUTH [place] 00 :00 TWICE [facility] DAILY [facility] METOPROLOL 2021-09- No [id number] TAKE 1/2 [facility] TARTRATE 25 1-08 -19 TABLET BY [facility] tablet 00:00: 00:00 MOUTH [place] 00 :00 TWICE [facility] DAILY [facility] METOPROLOL 2021-09- No [id number] TAKE 1/2 [facility] TARTRATE 25 10-02 TABLET BY it y of mg tablet 00:00: 00:00 MOUTH [place] 00 :00 TWICE Medical DAILY Branch METOPROLOL 2021-09- No [id number] TAKE 1/2 [facility] TARTRATE 25 10-02 TABLET BY it y of mg tablet 00:00: 00:00 MOUTH [place] 00 :00 TWICE Medical DAILY Branch busPIRone 2021-09 Yes [id number] 7.5mg Take 0.5-1 [facility] 15 mg 0-11 tablets by ity of tablet 00:00: mouth 2 [place] 00 (two) Medical times Branch daily as needed (anxiety). carBAMazepi 2021-09 Yes [id number] 200mg Take 2 [facility] ne 100 mg 0-11 tablets by ity of 12 hr 00:00: mouth at [place] [facility] 00 bedtime. Medical Branch DULoxetine 2021-09 Yes [id number] 60mg Take 1 [facility] 60 mg 0-11 capsule by ity of capsule 00:00: mouth in [place] 00 the Medical morning. Branch ADDITIONAL REFILLS PER PSYCHIATRY fluticasone 2021-09 Yes [id number] 1{spray Use 1-2 [facility] propionate 0-11 } Sprays in ity of 50 00:00: each [place] mcg/actuati 00 nostril in [place] dical on nasal the Branch spray morning. furosemide 2021-09 Yes [id number] 40mg Take 1 [facility] 40 mg 0-11 tablet by ity of tablet 00:00: mouth [place] 00 every Medical morning Branch and evening. gabapentin 2021-09 Yes [id number] 300mg Take 1 [facility] 300 mg 0-11 capsule by ity of capsule 00:00: mouth in [place] 00 the Medical morning Branch and 1 capsule in the evening. levothyroxi 2021-09 Yes [id number] 175ug Take 1 [facility] ne 175 mcg 0-11 tablet by ity of tablet 00:00: mouth [place] 00 every Medical morning. Branch MUST BE SEEN FOR FURTHER REFILLS KCL 10 mEq 2021-09 Yes [id number] 20meq Take 2 [facility] tablet 0-11 tablets by ity of 00:00: mouth in [place] 00 the Medical morning Branch and 2 tablets in the evening. Insulin 2021-09 Yes [id number] ADMINISTER [facility] Glargine 0-11 36 UNITS ity of (LANTUS 00:00: UNDER THE [place] SOLOSTAR 00 SKIN TWICE Medic al U-100 DAILY Branch INSULIN) 100 unit/mL (3 mL) injection Insulin 2021-09 Yes [id number] Use as [facility] ers [place], 0-11 directed ity of Disposable, 00:00: to inject [place] (PEN 00 insulin Medical NEEDLE) 32 daily; Branch gauge x ICD-10 " Ndle code E11.8 loratadine 2021-09 Yes [id number] 10mg Take 1 U nivers 10 mg 0-11 tablet by ity of tablet 00:00: mouth at [place] 00 bedtime. Medical Branch metoprolol 2021-09 Yes [id number] 12.5mg Take 0.5 [facility] tartrate 25 0-11 tablets by it y of mg tablet 00:00: mouth in [facility] 00 the Medical morning Branch and 0.5 tablets in the evening. omeprazole 2021-09 Yes [id number] 40mg Take 1 [facility] 40 mg 0-11 capsule by ity of capsule 00:00: mouth in [place] 00 the Medical morning. Branch ondansetron 2021-09 Yes [id number] TAKE 1 [facility] 4 mg tablet 0-11 TABLET BY ity of 00:00: MOUTH [place] 00 EVERY 8 Medical HOURS Branch NEEDED FOR NAUSEA OR VOMITING semaglutide 2021-09 Yes [id number] INJECT [facility] (OZEMPIC) 0-11 0.5MG ity of 0.25 mg or 00:00: UNDER THE [place] 0.5 mg(2 00 SKIN EVERY Medic al mg/1.5 mL) WEEK Branch PnIj prasugreL 2021-09 Yes [id number] 10mg Take 1 Un p[place] 10 mg 0-11 tablet by ity of tablet 00:00: mouth in [place] 00 the Medical morning. Branch Appointmen t needed. Please contact office. QUEtiapine 2021-09 Yes [id number] 400mg Take 1 [facility] 400 mg 0-11 tablet by ity of tablet 00:00: mouth at [place] 00 bedtime. Medical ADDITIONAL Branch REFILLS PER PSYCHIATRY rosuvastati 2021-09 Yes [id number] 20mg Take 1 [facility] n 20 mg 0-11 tablet by ity of tablet 00:00: mouth at [place] 00 bedtime. Medical Branch spironolact 2021-09 Yes [id number] 25mg Take 1 [facility] one 25 mg 0-11 tablet by ity o f tablet 00:00: mouth in [place] 00 the Medical morning. Branch traZODone 2021-09 Yes [id number] TAKE 1 U nivers 100 mg 0-11 TABLET BY ity of tablet 00:00: MOUTH [place] 00 EVERY Medical NIGHT Branch busPIRone 2021-09 Yes [id number] 7.5mg Take 0.5-1 [facility] 15 mg 0-11 tablets by ity of tablet 00:00: mouth 2 [place] 00 (two) Medical times Branch daily as needed (anxiety). carBAMazepi 2021-09 Yes [id number] 200mg Take 2 [facility] ne 100 mg 0-11 tablets by ity of 12 hr 00:00: mouth at [place] [facility] 00 bedtime. Medical Branch DULoxetine 2021-09 Yes [id number] 60mg Take 1 [facility] 60 mg 0-11 capsule by ity of capsule 00:00: mouth in [place] 00 the Medical morning. Branch ADDITIONAL REFILLS PER PSYCHIATRY fluticasone 2021-09 Yes [id number] 1{spray Use 1-2 [facility] propionate 0-11 } Sprays in ity of 50 00:00: each [place] mcg/actuati 00 nostril in [place] on nasal the Branch spray morning. furosemide 2021-09 Yes [id number] 40mg Take 1 [facility] 40 mg 0-11 tablet by ity of tablet 00:00: mouth [place] 00 every Medical morning Branch and evening. gabapentin 2021-09 Yes [id number] 300mg Take 1 [facility] 300 mg 0-11 capsule by ity of capsule 00:00: mouth in [place] 00 the Medical morning Branch and 1 capsule in the evening. levothyroxi 2021-09 Yes [id number] 175ug Take 1 [facility] ne 175 mcg 0-11 tablet by ity of tablet 00:00: mouth [place] [address] every Medical morning. Branch MUST BE SEEN FOR FURTHER REFILLS KCL 10 mEq 2021-09 Yes [id number] 20meq Take 2 [facility] tablet 0-11 tablets by ity of 00:00: mouth in [place] 00 the Medical morning Branch and 2 tablets in the evening. Insulin 2021-09 Yes [id number] ADMINISTER [facility] Glargine 0-11 36 UNITS ity of (LANTUS 00:00: UNDER THE [place] SOLOSTAR 00 SKIN TWICE Medic al U-100 DAILY Branch INSULIN) 100 unit/mL (3 mL) injection Insulin 2021-09 Yes [id number] Use as [facility] ers [place], 0-11 directed ity of Disposable, 00:00: to inject [place] (PEN 00 insulin Medical NEEDLE) 32 daily; Branch gauge x ICD-10 " Ndle code E11.8 loratadine 2021-09 Yes [id number] 10mg Take 1 U nivers 10 mg 0-11 tablet by ity of tablet 00:00: mouth at [place] 00 bedtime. Medical Branch metoprolol 2021-09 Yes [id number] 12.5mg Take 0.5 [facility] tartrate 25 0-11 tablets by it y of mg tablet 00:00: mouth in [facility] 00 the Medical morning Branch and 0.5 tablets in the evening. omeprazole 2021-09 Yes [id number] 40mg Take 1 [facility] 40 mg 0-11 capsule by ity of capsule 00:00: mouth in [place] 00 the Medical morning. Branch ondansetron 2021-09 Yes [id number] TAKE 1 [facility] 4 mg tablet 0-11 TABLET BY ity of 00:00: MOUTH [place] 00 EVERY 8 Medical HOURS Branch NEEDED FOR NAUSEA OR VOMITING semaglutide 2021-09 Yes [id number] INJECT [facility] (OZEMPIC) 0-11 0.5MG ity of 0.25 mg or 00:00: UNDER THE [place] 0.5 mg(2 00 SKIN EVERY Medic al mg/1.5 mL) WEEK Branch PnIj prasugreL 2021-09 Yes [id number] 10mg Take 1 Un [place] 10 mg 0-11 tablet by ity of tablet 00:00: mouth in [place] 00 the Medical morning. Branch Appointmen t needed. Please contact office. QUEtiapine 2021-09 Yes [id number] 400mg Take 1 [facility] 400 mg 0-11 tablet by ity of tablet 00:00: mouth at [place] 00 bedtime. Medical ADDITIONAL Branch REFILLS PER PSYCHIATRY rosuvastati 2021-09 Yes [id number] 20mg Take 1 [facility] n 20 mg 0-11 tablet by ity of tablet 00:00: mouth at [place] 00 bedtime. Medical Branch spironolact 2021-09 Yes [id number] 25mg Take 1 [facility] one 25 mg 0-11 tablet by ity o f tablet 00:00: mouth in [place] 00 the Medical morning. Branch traZODone 2021-09 Yes [id number] TAKE 1 U nivers 100 mg 0-11 TABLET BY ity of tablet 00:00: MOUTH [place] 00 EVERY Medical NIGHT Branch busPIRone 2021-09 Yes [id number] 7.5mg Take 0.5-1 [facility] 15 mg 0-11 tablets by ity of tablet 00:00: mouth 2 [place] 00 (two) Medical times Branch daily as needed (anxiety). carBAMazepi 2021-09 Yes [id number] 200mg Take 2 [facility] ne 100 mg 0-11 tablets by ity of 12 hr 00:00: mouth at [place] [facility] 00 bedtime. Medical Branch DULoxetine 2021-09 Yes [id number] 60mg Take 1 [facility] 60 mg 0-11 capsule by ity of capsule 00:00: mouth in [place] 00 the Medical morning. Branch ADDITIONAL REFILLS PER PSYCHIATRY fluticasone 2021-09 Yes [id number] 1{spray Use 1-2 [facility] propionate 0-11 } Sprays in ity of 50 00:00: each [place] mcg/actuati 00 nostril in [place] on nasal the Branch spray morning. furosemide 2021-09 Yes [id number] 40mg Take 1 [facility] 40 mg 0-11 tablet by ity of tablet 00:00: mouth [place] 00 every Medical morning Branch and evening. gabapentin 2021-09 Yes [id number] 300mg Take 1 [facility] 300 mg 0-11 capsule by ity of capsule 00:00: mouth in [place] 00 the Medical morning Branch and 1 capsule in the evening. levothyroxi 2021-09 Yes [id number] 175ug Take 1 [facility] ne 175 mcg 0-11 tablet by ity of tablet 00:00: mouth [place] 00 every Medical morning. Branch MUST BE SEEN FOR FURTHER REFILLS KCL 10 mEq 2021-09 Yes [id number] 20meq Take 2 [facility] tablet 0-11 tablets by ity of 00:00: mouth in [place] 00 the Medical morning Branch and 2 tablets in the evening. Insulin 2021-09 Yes [id number] ADMINISTER [facility] Glargine 0-11 36 UNITS ity of (LANTUS 00:00: UNDER THE [place] SOLOSTAR 00 SKIN TWICE Medic al U-100 DAILY Branch INSULIN) 100 unit/mL (3 mL) injection Insulin 2021-09 Yes [id number] Use as [facility] ers [place], 0-11 directed ity of Disposable, 00:00: to inject [place] (PEN 00 insulin Medical NEEDLE) 32 daily; Branch gauge x ICD-10 " Ndle code E11.8 loratadine 2021-09 Yes [id number] 10mg Take 1 U nivers 10 mg 0-11 tablet by ity of tablet 00:00: mouth at [place] 00 bedtime. Medical Branch metoprolol 2021-09 Yes [id number] 12.5mg Take 0.5 [facility] tartrate 25 0-11 tablets by it y of mg tablet 00:00: mouth in [facility] 00 the Medical morning Branch and 0.5 tablets in the evening. omeprazole 2021-09 Yes [id number] 40mg Take 1 [facility] 40 mg 0-11 capsule by ity of capsule 00:00: mouth in [place] 00 the Medical morning. Branch ondansetron 2021-09 Yes [id number] TAKE 1 [facility] 4 mg tablet 0-11 TABLET BY ity of 00:00: MOUTH [place] 00 EVERY 8 Medical HOURS Branch NEEDED FOR NAUSEA OR VOMITING semaglutide 2021-09 Yes [id number] INJECT [facility] (OZEMPIC) 0-11 0.5MG ity of 0.25 mg or 00:00: UNDER THE [place] 0.5 mg(2 00 SKIN EVERY Medic al mg/1.5 mL) WEEK Branch PnIj prasugreL 2021-09 Yes [id number] 10mg Take 1 Un pippa 10 mg 0-11 tablet by ity of tablet 00:00: mouth in [place] 00 the Medical morning. Branch Appointmen t needed. Please contact office. QUEtiapine 2021-09 Yes [id number] 400mg Take 1 [facility] 400 mg 0-11 tablet by ity of tablet 00:00: mouth at [place] 00 bedtime. Medical ADDITIONAL Branch REFILLS PER PSYCHIATRY rosuvastati 2021-09 Yes [id number] 20mg Take 1 [facility] n 20 mg 0-11 tablet by ity of tablet 00:00: mouth at [place] 00 bedtime. Medical Branch spironolact 2021-09 Yes [id number] 25mg Take 1 [facility] one 25 mg 0-11 tablet by ity o f tablet 00:00: mouth in [place] 00 the Medical morning. Branch traZODone 2021-09 Yes [id number] TAKE 1 U nivers 100 mg 0-11 TABLET BY ity of tablet 00:00: MOUTH [place] 00 EVERY Medical NIGHT Branch busPIRone 2021-09 Yes [id number] 7.5mg Take 0.5-1 [facility] 15 mg 0-11 tablets by ity of tablet 00:00: mouth 2 [place] 00 (two) Medical times Branch daily as needed (anxiety). carBAMazepi 2021-09 Yes [id number] 200mg Take 2 [facility] ne 100 mg 0-11 tablets by ity of 12 hr 00:00: mouth at [place] [facility] 00 bedtime. Medical Branch DULoxetine 2021-09 Yes [id number] 60mg Take 1 [facility] 60 mg 0-11 capsule by ity of capsule 00:00: mouth in [place] [address] the Medical morning. Branch ADDITIONAL REFILLS PER PSYCHIATRY fluticasone 2021-09 Yes [id number] 1{spray Use 1-2 [facility] propionate 0-11 } Sprays in ity of 50 00:00: each [place] mcg/actuati 00 nostril in [place] on nasal the Branch spray morning. furosemide 2021-09 Yes [id number] 40mg Take 1 [facility] 40 mg 0-11 tablet by ity of tablet 00:00: mouth [place] 00 every Medical morning Branch and evening. gabapentin 2021-09 Yes [id number] 300mg Take 1 [facility] 300 mg 0-11 capsule by ity of capsule 00:00: mouth in [place] 00 the Medical morning Branch and 1 capsule in the evening. levothyroxi 2021-09 Yes [id number] 175ug Take 1 [facility] ne 175 mcg 0-11 tablet by ity of tablet 00:00: mouth [place] [address] every Medical morning. Branch MUST BE SEEN FOR FURTHER REFILLS KCL 10 mEq 2021-09 Yes [id number] 20meq Take 2 [facility] tablet 0-11 tablets by ity of 00:00: mouth in [place] 00 the Medical morning Branch and 2 tablets in the evening. Insulin 2021-09 Yes [id number] ADMINISTER [facility] Glargine 0-11 36 UNITS ity of (LANTUS 00:00: UNDER THE [place] SOLOSTAR 00 SKIN TWICE Medic al U-100 DAILY Branch INSULIN) 100 unit/mL (3 mL) injection Insulin 2021-09 Yes [id number] Use as Univ ers [place], 0-11 directed ity of Disposable, 00:00: to inject [place] (PEN 00 insulin Medical NEEDLE) 32 daily; Branch gauge x ICD-10 5/32" Ndle code E11.8 loratadine 2021-09 Yes [id number] 10mg Take 1 U nivers 10 mg 0-11 tablet by ity of tablet 00:00: mouth at [place] 00 bedtime. Medical Branch metoprolol 2021-09 Yes [id number] 12.5mg Take 0.5 [facility] tartrate 25 0-11 tablets by it y of mg tablet 00:00: mouth in [facility] 00 the Medical morning Branch and 0.5 tablets in the evening. omeprazole 2021-09 Yes [id number] 40mg Take 1 [facility] 40 mg 0-11 capsule by ity of capsule 00:00: mouth in [place] 00 the Medical morning. Branch ondansetron 2021-09 Yes [id number] TAKE 1 [facility] 4 mg tablet 0-11 TABLET BY ity of 00:00: MOUTH [place] 00 EVERY 8 Medical HOURS Branch NEEDED FOR NAUSEA OR VOMITING semaglutide 2021-09 Yes [id number] INJECT [facility] (OZEMPIC) 0-11 0.5MG ity of 0.25 mg or 00:00: UNDER THE [place] 0.5 mg(2 00 SKIN EVERY Medic al mg/1.5 mL) WEEK Branch PnIj prasugreL 2021-09 Yes [id number] 10mg Take 1 Un pippa 10 mg 0-11 tablet by ity of tablet 00:00: mouth in [place] 00 the Medical morning. Branch Appointmen t needed. Please contact office. QUEtiapine 2021-09 Yes [id number] 400mg Take 1 [facility] 400 mg 0-11 tablet by ity of tablet 00:00: mouth at [place] 00 bedtime. Medical ADDITIONAL Branch REFILLS PER PSYCHIATRY rosuvastati 2021-09 Yes [id number] 20mg Take 1 [facility] n 20 mg 0-11 tablet by ity of tablet 00:00: mouth at [place] 00 bedtime. Medical Branch spironolact 2021-09 Yes [id number] 25mg Take 1 [facility] one 25 mg 0-11 tablet by ity o f tablet 00:00: mouth in [place] 00 the Medical morning. Branch traZODone 2021-09 Yes [id number] TAKE 1 U nivers 100 mg 0-11 TABLET BY ity of tablet 00:00: MOUTH [place] 00 EVERY Medical NIGHT Branch busPIRone 2021-09 Yes [id number] 7.5mg Take 0.5-1 [facility] 15 mg 0-11 tablets by ity of tablet 00:00: mouth 2 [place] 00 (two) Medical times Branch daily as needed (anxiety). carBAMazepi 2021-09 Yes [id number] 200mg Take 2 [facility] ne 100 mg 0-11 tablets by ity of 12 hr 00:00: mouth at [place] [facility] 00 bedtime. Medical Branch DULoxetine 2021-09 Yes [id number] 60mg Take 1 [facility] 60 mg 0-11 capsule by ity of capsule 00:00: mouth in [place] 00 the Medical morning. Branch ADDITIONAL REFILLS PER PSYCHIATRY fluticasone 2021-09 Yes [id number] 1{spray Use 1-2 [facility] propionate 0-11 } Sprays in ity of 50 00:00: each [place] mcg/actuati 00 nostril in [place] on nasal the Branch spray morning. furosemide 2021-09 Yes [id number] 40mg Take 1 [facility] 40 mg 0-11 tablet by ity of tablet 00:00: mouth [place] 00 every Medical morning Branch and evening. gabapentin 2021-09 Yes [id number] 300mg Take 1 [facility] 300 mg 0-11 capsule by ity of capsule 00:00: mouth in [place] 00 the Medical morning Branch and 1 capsule in the evening. levothyroxi 2021-09 Yes [id number] 175ug Take 1 [facility] ne 175 mcg 0-11 tablet by ity of tablet 00:00: mouth [place] [address] every Medical morning. Branch MUST BE SEEN FOR FURTHER REFILLS KCL 10 mEq 2021-09 Yes [id number] 20meq Take 2 [facility] tablet 0-11 tablets by ity of 00:00: mouth in [place] 00 the Medical morning Branch and 2 tablets in the evening. Insulin 2021-09 Yes [id number] ADMINISTER [facility] Glargine 0-11 36 UNITS ity of (LANTUS 00:00: UNDER THE [place] SOLOSTAR 00 SKIN TWICE Medic al U-100 DAILY Branch INSULIN) 100 unit/mL (3 mL) injection Insulin 2021-09 Yes [id number] Use as Univ ers [place], 0-11 directed ity of Disposable, 00:00: to inject [place] (PEN 00 insulin Medical NEEDLE) 32 daily; Branch gauge x ICD-10 " Ndle code E11.8 loratadine 2021-09 Yes [id number] 10mg Take 1 U nivers 10 mg 0-11 tablet by ity of tablet 00:00: mouth at [place] 00 bedtime. Medical Branch metoprolol 2021-09 Yes [id number] 12.5mg Take 0.5 [facility] tartrate 25 0-11 tablets by it y of mg tablet 00:00: mouth in [place] 00 the Medical morning Branch and 0.5 tablets in the evening. omeprazole 2021-09 Yes [id number] 40mg Take 1 [facility] 40 mg 0-11 capsule by ity of capsule 00:00: mouth in [place] 00 the Medical morning. Branch ondansetron 2021-09 Yes [id number] TAKE 1 [facility] 4 mg tablet 0-11 TABLET BY ity of 00:00: MOUTH 00 EVERY 8 Medical HOURS Branch NEEDED FOR NAUSEA OR VOMITING semaglutide 2021-09 Yes [id number] INJECT [facility] (OZEMPIC) 0-11 0.5MG ity of 0.25 mg or 00:00: UNDER THE [place] 0.5 mg(2 00 SKIN EVERY Medic al mg/1.5 mL) WEEK Branch PnIj prasugreL 2021-09 Yes [id number] 10mg Take 1 Un pippa 10 mg 0-11 tablet by ity of tablet 00:00: mouth in [place] 00 the Medical morning. Branch Appointmen t needed. Please contact office. QUEtiapine 2021-09 Yes [id number] 400mg Take 1 [facility] 400 mg 0-11 tablet by ity of tablet 00:00: mouth at [place] 00 bedtime. Medical ADDITIONAL Branch REFILLS PER PSYCHIATRY rosuvastati 2021-09 Yes [id number] 20mg Take 1 [facility] n 20 mg 0-11 tablet by ity of tablet 00:00: mouth at [place] 00 bedtime. Medical Branch spironolact 2021-09 Yes [id number] 25mg Take 1 [facility] one 25 mg 0-11 tablet by ity o f tablet 00:00: mouth in [place] 00 the Medical morning. Branch traZODone 2021-09 Yes [id number] TAKE 1 U nivers 100 mg 0-11 TABLET BY ity of tablet 00:00: MOUTH [place] 00 EVERY Medical NIGHT Branch busPIRone 2021-09 Yes [id number] 7.5mg Take 0.5-1 [facility] 15 mg 0-11 tablets by ity of tablet 00:00: mouth 2 00 (two) Medical times Branch daily as needed (anxiety). carBAMazepi 2021-09 Yes [id number] 200mg Take 2 [facility] ne 100 mg 0-11 tablets by ity of 12 hr 00:00: mouth at [place] [facility] 00 bedtime. Medical Branch DULoxetine 2021-09 Yes [id number] 60mg Take 1 [facility] 60 mg 0-11 capsule by ity of capsule 00:00: mouth in [place] 00 the Medical morning. Branch ADDITIONAL REFILLS PER PSYCHIATRY fluticasone 2021-09 Yes [id number] 1{spray Use 1-2 [facility] propionate 0-11 } Sprays in ity of 50 00:00: each [place] mcg/actuati 00 nostril in [place] on nasal the Branch spray morning. furosemide 2021-09 Yes [id number] 40mg Take 1 [facility] 40 mg 0-11 tablet by ity of tablet 00:00: mouth [place] 00 every Medical morning Branch and evening. gabapentin 2021-09 Yes [id number] 300mg Take 1 [facility] 300 mg 0-11 capsule by ity of capsule 00:00: mouth in [place] 00 the Medical morning Branch and 1 capsule in the evening. levothyroxi 2021-09 Yes [id number] 175ug Take 1 [facility] ne 175 mcg 0-11 tablet by ity of tablet 00:00: mouth [place] [address] every Medical morning. Branch MUST BE SEEN FOR FURTHER REFILLS KCL 10 mEq 2021-09 Yes [id number] 20meq Take 2 [facility] tablet 0-11 tablets by ity of 00:00: mouth in [place] 00 the Medical morning Branch and 2 tablets in the evening. Insulin 2021-09 Yes [id number] ADMINISTER [facility] Glargine 0-11 36 UNITS ity of (LANTUS 00:00: UNDER THE [place] SOLOSTAR 00 SKIN TWICE Medic al U-100 DAILY Branch INSULIN) 100 unit/mL (3 mL) injection Insulin 2021-09 Yes [id number] Use as Univ ers [place], 0-11 directed ity of Disposable, 00:00: to inject [place] (PEN 00 insulin Medical NEEDLE) 32 daily; Branch gauge x ICD-10 " Ndle code E11.8 loratadine 2021-09 Yes [id number] 10mg Take 1 U nivers 10 mg 0-11 tablet by ity of tablet 00:00: mouth at [place] [address] bedtime. Medical Branch metoprolol 2021-09 Yes [id number] 12.5mg Take 0.5 [facility] tartrate 25 0-11 tablets by [facility] 00:[facility] Branch and 0.5 tablets in the evening. omeprazole 2021-09 Yes [id number] 40mg Take 1 [facility] 40 mg 0-11 capsule by ity of capsule 00:00: mouth in [place] 00 the Medical morning. Branch ondansetron 2021-09 Yes [id number] TAKE 1 [facility] 4 mg tablet 0-11 TABLET BY ity of 00:00: MOUTH [place] 00 EVERY 8 Medical HOURS Branch NEEDED FOR NAUSEA OR VOMITING semaglutide 2021-09 Yes [id number] INJECT [facility] (OZEMPIC) 0-11 0.5MG ity of 0.25 mg or 00:00: UNDER THE [place] 0.5 mg(2 00 SKIN EVERY Medic al mg/1.5 mL) WEEK Branch PnIj prasugreL 2021-09 Yes [id number] 10mg Take 1 Un pippa 10 mg 0-11 tablet by ity of tablet 00:00: mouth in [place] 00 the Medical morning. Branch Appointmen t needed. Please contact office. QUEtiapine 2021-09 Yes [id number] 400mg Take 1 [facility] 400 mg 0-11 tablet by ity of tablet 00:00: mouth at [place] 00 bedtime. Medical ADDITIONAL Branch REFILLS PER PSYCHIATRY rosuvastati 2021-09 Yes [id number] 20mg Take 1 [facility] n 20 mg 0-11 tablet by ity of tablet 00:00: mouth at [place] 00 bedtime. Medical Branch spironolact 2021-09 Yes [id number] 25mg Take 1 [facility] one 25 mg 0-11 tablet by ity o f tablet 00:00: mouth in [place] 00 the Medical morning. Branch traZODone 2021-09 Yes [id number] TAKE 1 U nivers 100 mg 0-11 TABLET BY ity of tablet 00:00: MOUTH [place] 00 EVERY Medical NIGHT Branch busPIRone 2021-09 Yes [id number] 7.5mg Take 0.5-1 [facility] 15 mg 0-11 tablets by ity of tablet 00:00: mouth 2 [place] 00 (two) Medical times Branch daily as needed (anxiety). carBAMazepi 2021-09 Yes [id number] 200mg Take 2 [facility] ne 100 mg 0-11 tablets by ity of 12 hr 00:00: mouth at [place] [facility] 00 bedtime. Medical Branch DULoxetine 2021-09 Yes [id number] 60mg Take 1 [facility] 60 mg 0-11 capsule by ity of capsule 00:00: mouth in [place] [address] the Medical morning. Branch ADDITIONAL REFILLS PER PSYCHIATRY fluticasone 2021-09 Yes [id number] 1{spray Use 1-2 [facility] propionate 0-11 } Sprays in ity of 50 00:00: each [place] mcg/actuati 00 nostril in [place] on nasal the Branch spray morning. furosemide 2021-09 Yes [id number] 40mg Take 1 [facility] 40 mg 0-11 tablet by ity of tablet 00:00: mouth [place] [address] every Medical morning Branch and evening. gabapentin 2021-09 Yes [id number] 300mg Take 1 [facility] 300 mg 0-11 capsule by ity of capsule 00:00: mouth in [place] [address] the Medical morning Branch and 1 capsule in the evening. levothyroxi 2021-09 Yes [id number] 175ug Take 1 [facility] ne 175 mcg 0-11 tablet by ity of tablet 00:00: mouth [place] [address] every Medical morning. Branch MUST BE SEEN FOR FURTHER REFILLS KCL 10 mEq 2021-09 Yes [id number] 20meq Take 2 [facility] tablet 0-11 tablets by ity of 00:00: mouth in [place] 00 the Medical morning Branch and 2 tablets in the evening. Insulin 2021-09 Yes [id number] ADMINISTER [facility] Glargine 0-11 36 UNITS ity of (LANTUS 00:00: UNDER THE [place] SOLOSTAR 00 SKIN TWICE Medic al U-100 DAILY Branch INSULIN) 100 unit/mL (3 mL) injection Insulin 2021-09 Yes [id number] Use as Univ ers [place], 0-11 directed ity of Disposable, 00:00: to inject [place] (PEN 00 insulin Medical NEEDLE) 32 daily; Branch gauge x ICD-10 " Ndle code E11.8 loratadine 2021-09 Yes [id number] 10mg Take 1 U nivers 10 mg 0-11 tablet by ity of tablet 00:00: mouth at [place] [address] bedtime. Medical Branch metoprolol 2021-09 Yes [id number] 12.5mg Take 0.5 [facility] tartrate 25 0-11 tablets by it y of mg tablet 00:00: [place] in [place] 00 the Medical morning Branch and 0.5 tablets in the evening. omeprazole 2021-09 Yes [id number] 40mg Take 1 [facility] 40 mg 0-11 capsule by ity of capsule 00:00: mouth in [place] 00 the Medical morning. Branch ondansetron 2021-09 Yes [id number] TAKE 1 [facility] 4 mg tablet 0-11 TABLET BY ity of 00:00: MOUTH [place] 00 EVERY 8 Medical HOURS Branch NEEDED FOR NAUSEA OR VOMITING semaglutide 2021-09 Yes [id number] INJECT [facility] (OZEMPIC) 0-11 0.5MG ity of 0.25 mg or 00:00: UNDER THE [place] 0.5 mg(2 00 SKIN EVERY Medic al mg/1.5 mL) WEEK Branch PnIj prasugreL 2021-09 Yes [id number] 10mg Take 1 Un pippa 10 mg 0-11 tablet by ity of tablet 00:00: mouth in [place] 00 the Medical morning. Branch Appointmen t needed. Please contact office. QUEtiapine 2021-09 Yes [id number] 400mg Take 1 [facility] 400 mg 0-11 tablet by ity of tablet 00:00: mouth at [place] 00 bedtime. Medical ADDITIONAL Branch REFILLS PER PSYCHIATRY rosuvastati 2021-09 Yes [id number] 20mg Take 1 [facility] n 20 mg 0-11 tablet by ity of tablet 00:00: mouth at [place] 00 bedtime. Medical Branch spironolact 2021-09 Yes [id number] 25mg Take 1 [facility] one 25 mg 0-11 tablet by ity o f tablet 00:00: mouth in [place] 00 the Medical morning. Branch traZODone 2021-09 Yes [id number] TAKE 1 U nivers 100 mg 0-11 TABLET BY ity of tablet 00:00: MOUTH [place] 00 EVERY Medical NIGHT Branch busPIRone 2021-09 Yes [id number] 7.5mg Take 0.5-1 [facility] 15 mg 0-11 tablets by ity of tablet 00:00: mouth 2 [place] 00 (two) Medical times Branch daily as needed (anxiety). carBAMazepi 2021-09 Yes [id number] 200mg Take 2 [facility] ne 100 mg 0-11 tablets by ity of 12 hr 00:00: mouth at [place] [facility] 00 bedtime. Medical Branch DULoxetine 2021-09 Yes [id number] 60mg Take 1 [facility] 60 mg 0-11 capsule by ity of capsule 00:00: mouth in [place] 00 the Medical morning. Branch ADDITIONAL REFILLS PER PSYCHIATRY fluticasone 2021-09 Yes [id number] 1{spray Use 1-2 [facility] propionate 0-11 } Sprays in ity of 50 00:00: each [place] mcg/actuati 00 nostril in Me dical on nasal the Branch spray morning. furosemide 2021-09 Yes [id number] 40mg Take 1 [facility] 40 mg 0-11 tablet by ity of tablet 00:00: mouth [place] 00 every Medical morning Branch and evening. gabapentin 2021-09 Yes [id number] 300mg Take 1 [facility] 300 mg 0-11 capsule by ity of capsule 00:00: mouth in [place] 00 the Medical morning Branch and 1 capsule in the evening. levothyroxi 2021-09 Yes [id number] 175ug Take 1 [facility] ne 175 mcg 0-11 tablet by ity of tablet 00:00: mouth [place] 00 every Medical morning. Branch MUST BE SEEN FOR FURTHER REFILLS KCL 10 mEq 2021-09 Yes [id number] 20meq Take 2 [facility] tablet 0-11 tablets by ity of 00:00: mouth in [place] 00 the Medical morning Branch and 2 tablets in the evening. Insulin 2021-09 Yes [id number] ADMINISTER [facility] Glargine 0-11 36 UNITS ity of (LANTUS 00:00: UNDER THE [place] SOLOSTAR 00 SKIN TWICE Medic al U-100 DAILY Branch INSULIN) 100 unit/mL (3 mL) injection Insulin 2021-09 Yes [id number] Use as [facility] ers [place], 0-11 directed ity of Disposable, 00:00: to inject [place] (PEN 00 insulin Medical NEEDLE) 32 daily; Branch gauge x ICD-10 5/32" Ndle code E11.8 loratadine 2021-09 Yes [id number] 10mg Take 1 [facility] nivers 10 mg 0-11 tablet by ity of tablet 00:00: mouth at [place] 00 bedtime. Medical Branch omeprazole 2021-09 Yes [id number] 40mg Take 1 [facility] 40 mg 0-11 capsule by ity of capsule 00:00: mouth in [place] 00 the Medical morning. Branch ondansetron 2021-09 Yes [id number] TAKE 1 [facility] 4 mg tablet 0-11 TABLET BY ity of 00:00: MOUTH [place] 00 EVERY 8 Medical HOURS Branch NEEDED FOR NAUSEA OR VOMITING semaglutide 2021-09 Yes [id number] INJECT [facility] (OZEMPIC) 0-11 0.5MG ity of 0.25 mg or 00:00: UNDER THE [place] 0.5 mg(2 00 SKIN EVERY Medic al mg/1.5 mL) WEEK Branch PnIj prasugreL 2021-09 Yes [id number] 10mg Take 1 Un [place] 10 mg 0-11 tablet by ity of tablet 00:00: mouth in [place] 00 the Medical morning. Branch Appointmen t needed. Please contact office. QUEtiapine 2021-09 Yes [id number] 400mg Take 1 [facility] 400 mg 0-11 tablet by ity of tablet 00:00: mouth at [place] [address] bedtime. Medical ADDITIONAL Branch REFILLS PER PSYCHIATRY rosuvastati 2021-09 Yes [id number] 20mg Take 1 [facility] n 20 mg 0-11 tablet by ity of tablet 00:00: mouth at [place] [address] bedtime. Medical Branch spironolact 2021-09 Yes [id number] 25mg Take 1 [facility] one 25 mg 0-11 tablet by ity o f tablet 00:00: mouth in [place] 00 the Medical morning. Branch traZODone 2021-09 Yes [id number] TAKE 1 U nivers 100 mg 0-11 TABLET BY ity of tablet 00:00: MOUTH [place] 00 EVERY Medical NIGHT Branch busPIRone 2021-09 Yes [id number] 7.5mg Take 0.5-1 [facility] 15 mg 0-11 tablets by ity of tablet 00:00: mouth 2 [place] 00 (two) Medical times Branch daily as needed (anxiety). carBAMazepi 2021-09 Yes [id number] 200mg Take 2 [facility] ne 100 mg 0-11 tablets by ity of 12 hr 00:00: mouth at [place] tablet 00 bedtime. Medical Branch DULoxetine 2021-09 Yes [id number] 60mg Take 1 [facility] 60 mg 0-11 capsule by ity of capsule 00:00: mouth in [place] 00 the Medical morning. Branch ADDITIONAL REFILLS PER PSYCHIATRY fluticasone 2021-09 Yes [id number] 1{spray Use 1-2 [facility] propionate 0-11 } Sprays in ity of 50 00:00: each [place] mcg/actuati 00 nostril in [place] on nasal the Branch spray morning. furosemide 2021-09 Yes [id number] 40mg Take 1 [facility] 40 mg 0-11 tablet by ity of tablet 00:00: mouth [place] 00 every Medical morning Branch and evening. gabapentin 2021-09 Yes [id number] 300mg Take 1 [facility] 300 mg 0-11 capsule by ity of capsule 00:00: mouth in [place] 00 the Medical morning Branch and 1 capsule in the evening. levothyroxi 2021-09 Yes [id number] 175ug Take 1 [facility] ne 175 mcg 0-11 tablet by ity of tablet 00:00: mouth [place] 00 every Medical morning. Branch MUST BE SEEN FOR FURTHER REFILLS KCL 10 mEq 2021-09 Yes [id number] 20meq Take 2 [facility] tablet 0-11 tablets by ity of 00:00: mouth in [place] 00 the Medical morning Branch and 2 tablets in the evening. Insulin 2021-09 Yes [id number] ADMINISTER [facility] Glargine 0-11 36 UNITS ity of ([place] 00:00: UNDER THE [place] SOLOSTAR 00 SKIN TWICE Medic al U-100 DAILY Branch INSULIN) 100 unit/mL (3 mL) injection Insulin 2021-09 Yes [id number] Use as [facility] [place], 0-11 directed ity of Disposable, 00:00: to inject [place] (PEN 00 insulin Medical NEEDLE) 32 daily; Branch gauge x ICD-10 " Ndle code E11.8 loratadine 2021-09 Yes [id number] 10mg Take 1 U nivers 10 mg 0-11 tablet by ity of tablet 00:00: mouth at [place] 00 bedtime. Medical Branch omeprazole 2021-09 Yes [id number] 40mg Take 1 [facility] 40 mg 0-11 capsule by ity of capsule 00:00: mouth in [place] 00 the Medical morning. Branch ondansetron 2021-09 Yes [id number] TAKE 1 [facility] 4 mg tablet 0-11 TABLET BY ity of 00:00: MOUTH [place] 00 EVERY 8 Medical HOURS Branch NEEDED FOR NAUSEA OR VOMITING semaglutide 2021-09 Yes [id number] INJECT [facility] (OZEMPIC) 0-11 0.5MG ity of 0.25 mg or 00:00: UNDER THE [place] 0.5 mg(2 00 SKIN EVERY Medic al mg/1.5 mL) WEEK Branch PnIj prasugreL 2021-09 Yes [id number] 10mg Take 1 Un [place] 10 mg 0-11 tablet by ity of tablet 00:00: mouth in [place] 00 the Medical morning. Branch Appointmen t needed. Please contact office. QUEtiapine 2021-09 Yes [id number] 400mg Take 1 [facility] 400 mg 0-11 tablet by ity of tablet 00:00: mouth at [place] [address] bedtime. Medical ADDITIONAL Branch REFILLS PER PSYCHIATRY rosuvastati 2021-09 Yes [id number] 20mg Take 1 [facility] n 20 mg 0-11 tablet by ity of tablet 00:00: mouth at [place] [address] bedtime. Medical Branch spironolact 2021-09 Yes [id number] 25mg Take 1 [facility] one 25 mg 0-11 tablet by ity o f tablet 00:00: mouth in [place] 00 the Medical morning. Branch traZODone 2021-09 Yes [id number] TAKE 1 U nivers 100 mg 0-11 TABLET BY ity of tablet 00:00: MOUTH [place] 00 EVERY Medical NIGHT Branch busPIRone 2021-09 Yes [id number] 7.5mg Take 0.5-1 [facility] 15 mg 0-11 tablets by ity of tablet 00:00: mouth 2 [place] [address] (two) Medical times Branch daily as needed (anxiety). carBAMazepi 2021-09 Yes [id number] 200mg Take 2 [facility] ne 100 mg 0-11 tablets by ity of 12 hr 00:00: mouth at [place] [facility] 00 bedtime. Medical Branch DULoxetine 2021-09 Yes [id number] 60mg Take 1 [facility] 60 mg 0-11 capsule by ity of capsule 00:00: mouth in [place] 00 the Medical morning. Branch ADDITIONAL REFILLS PER PSYCHIATRY fluticasone 2021-09 Yes [id number] 1{spray Use 1-2 [facility] propionate 0-11 } Sprays in ity of 50 00:00: each [place] mcg/actuati 00 nostril in Me dical on nasal the Branch spray morning. furosemide 2021-09 Yes [id number] 40mg Take 1 [facility] 40 mg 0-11 tablet by ity of tablet 00:00: mouth [place] 00 every Medical morning Branch and evening. gabapentin 2021-09 Yes [id number] 300mg Take 1 [facility] 300 mg 0-11 capsule by ity of capsule 00:00: mouth in [place] 00 the Medical morning Branch and 1 capsule in the evening. levothyroxi 2021-09 Yes [id number] 175ug Take 1 [facility] ne 175 mcg 0-11 tablet by ity of tablet 00:00: mouth [place] 00 every Medical morning. Branch MUST BE SEEN FOR FURTHER REFILLS KCL 10 mEq 2021-09 Yes [id number] 20meq Take 2 [facility] tablet 0-11 tablets by ity of 00:00: mouth in [place] 00 the Medical morning Branch and 2 tablets in the evening. Insulin 2021-09 Yes [id number] ADMINISTER [facility] Glargine 0-11 36 UNITS ity of ([place] 00:00: UNDER THE [place] SOLOSTAR 00 SKIN TWICE Medic al U-100 DAILY Branch INSULIN) 100 unit/mL (3 mL) injection Insulin 2021-09 Yes [id number] Use as [facility] ers [place], 0-11 directed ity of Disposable, 00:00: to inject [place] (PEN 00 insulin Medical NEEDLE) 32 daily; Branch gauge x ICD-10 " Ndle code E11.8 loratadine 2021-09 Yes [id number] 10mg Take 1 U nivers 10 mg 0-11 tablet by ity of tablet 00:00: mouth at [place] [address] bedtime. Medical Branch omeprazole 2021-09 Yes [id number] 40mg Take 1 [facility] 40 mg 0-11 capsule by ity of capsule 00:00: mouth in [place] 00 the Medical morning. Branch ondansetron 2021-09 Yes [id number] TAKE 1 [facility] 4 mg tablet 0-11 TABLET BY ity of 00:00: MOUTH [place] 00 EVERY 8 Medical HOURS Branch NEEDED FOR NAUSEA OR VOMITING semaglutide 2021-09 Yes [id number] INJECT [facility] (OZEMPIC) 0-11 0.5MG ity of 0.25 mg or 00:00: UNDER THE [place] 0.5 mg(2 00 SKIN EVERY Medic al mg/1.5 mL) WEEK Branch PnIj prasugreL 2021-09 Yes [id number] 10mg Take 1 Un [place] 10 mg 0-11 tablet by ity of tablet 00:00: mouth in [place] 00 the Medical morning. Branch Appointmen t needed. Please contact office. QUEtiapine 2021-09 Yes [id number] 400mg Take 1 [facility] 400 mg 0-11 tablet by ity of tablet 00:00: mouth at [place] [address] bedtime. Medical ADDITIONAL Branch REFILLS PER PSYCHIATRY rosuvastati 2021-09 Yes [id number] 20mg Take 1 [facility] n 20 mg 0-11 tablet by ity of tablet 00:00: mouth at [place] [address] bedtime. Medical Branch spironolact 2021-09 Yes [id number] 25mg Take 1 [facility] one 25 mg 0-11 tablet by ity o f tablet 00:00: mouth in [place] 00 the Medical morning. Branch traZODone 2021-09 Yes [id number] TAKE 1 U nivers 100 mg 0-11 TABLET BY ity of tablet 00:00: MOUTH [place] 00 EVERY Medical NIGHT Branch busPIRone 2021-09 Yes [id number] 7.5mg Take 0.5-1 [facility] 15 mg 0-11 tablets by ity of tablet 00:00: mouth 2 [place] 00 (two) Medical times Branch daily as needed (anxiety). carBAMazepi 2021-09 Yes [id number] 200mg Take 2 [facility] ne 100 mg 0-11 tablets by ity of 12 hr 00:00: mouth at [place] [facility] 00 bedtime. Medical Branch DULoxetine 2021-09 Yes [id number] 60mg Take 1 [facility] 60 mg 0-11 capsule by ity of capsule 00:00: mouth in [place] 00 the Medical morning. Branch ADDITIONAL REFILLS PER PSYCHIATRY fluticasone 2021-09 Yes [id number] 1{spray Use 1-2 [facility] propionate 0-11 } Sprays in ity of 50 00:00: each [place] mcg/actuati 00 nostril in [place] on nasal the Branch spray morning. furosemide 2021-09 Yes [id number] 40mg Take 1 [facility] 40 mg 0-11 tablet by ity of tablet 00:00: mouth [place] 00 every Medical morning Branch and evening. gabapentin 2021-09 Yes [id number] 300mg Take 1 [facility] 300 mg 0-11 capsule by ity of capsule 00:00: mouth in [place] 00 the Medical morning Branch and 1 capsule in the evening. levothyroxi 2021-09 Yes [id number] 175ug Take 1 [facility] ne 175 mcg 0-11 tablet by ity of tablet 00:00: mouth [place] 00 every Medical morning. Branch MUST BE SEEN FOR FURTHER REFILLS KCL 10 mEq 2021-09 Yes [id number] 20meq Take 2 [facility] tablet 0-11 tablets by ity of 00:00: mouth in [place] 00 the Medical morning Branch and 2 tablets in the evening. Insulin 2021-09 Yes [id number] ADMINISTER [facility] Glargine 0-11 36 UNITS ity of (L[place]US 00:00: UNDER THE [place] SOLOSTAR 00 SKIN TWICE Medic al U-100 DAILY Branch INSULIN) 100 unit/mL (3 mL) injection Insulin 2021-09 Yes [id number] Use as [facility] ers [place], 0-11 directed ity of Disposable, 00:00: to inject [place] (PEN 00 insulin Medical NEEDLE) 32 daily; Branch gauge x ICD-10 " Ndle code E11.8 loratadine 2021-09 Yes [id number] 10mg Take 1 U nivers 10 mg 0-11 tablet by ity of tablet 00:00: mouth at [place] [address] bedtime. Medical Branch omeprazole 2021-09 Yes [id number] 40mg Take 1 [facility] 40 mg 0-11 capsule by ity of capsule 00:00: mouth in [place] 00 the Medical morning. Branch ondansetron 2021-09 Yes [id number] TAKE 1 [facility] 4 mg tablet 0-11 TABLET BY ity of 00:00: MOUTH [place] 00 EVERY 8 Medical HOURS Branch NEEDED FOR NAUSEA OR VOMITING semaglutide 2021-09 Yes [id number] INJECT [facility] (OZEMPIC) 0-11 0.5MG ity of 0.25 mg or 00:00: UNDER THE [place] 0.5 mg(2 00 SKIN EVERY Medic al mg/1.5 mL) WEEK Branch PnIj prasugreL 2021-09 Yes [id number] 10mg Take 1 Un p[place] 10 mg 0-11 tablet by ity of tablet 00:00: mouth in [place] 00 the Medical morning. Branch Appointmen t needed. Please contact office. QUEtiapine 2021-09 Yes [id number] 400mg Take 1 [facility] 400 mg 0-11 tablet by ity of tablet 00:00: mouth at [place] [address] bedtime. Medical ADDITIONAL Branch REFILLS PER PSYCHIATRY rosuvastati 2021-09 Yes [id number] 20mg Take 1 [facility] n 20 mg 0-11 tablet by ity of tablet 00:00: mouth at [place] [address] bedtime. Medical Branch spironolact 2021-09 Yes [id number] 25mg Take 1 [facility] one 25 mg 0-11 tablet by ity o f tablet 00:00: mouth in [place] 00 the Medical morning. Branch traZODone 2021-09 Yes [id number] TAKE 1 U nivers 100 mg 0-11 TABLET BY ity of tablet 00:00: MOUTH [place] 00 EVERY Medical NIGHT Branch busPIRone 2021-09 Yes [id number] 7.5mg Take 0.5-1 [facility] 15 mg 0-11 tablets by ity of tablet 00:00: mouth 2 [place] 00 (two) Medical times Branch daily as needed (anxiety). carBAMazepi 2021-09 Yes [id number] 200mg Take 2 [facility] ne 100 mg 0-11 tablets by ity of 12 hr 00:00: mouth at [place] tablet 00 bedtime. Medical Branch DULoxetine 2021-09 Yes [id number] 60mg Take 1 [facility] 60 mg 0-11 capsule by ity of capsule 00:00: mouth in [place] 00 the Medical morning. Branch ADDITIONAL REFILLS PER PSYCHIATRY fluticasone 2021-09 Yes [id number] 1{spray Use 1-2 [facility] propionate 0-11 } Sprays in ity of 50 00:00: each [place] mcg/actuati 00 nostril in [place] on nasal the Branch spray morning. furosemide 2021-09 Yes [id number] 40mg Take 1 [facility] 40 mg 0-11 tablet by ity of tablet 00:00: mouth [place] 00 every Medical morning Branch and evening. gabapentin 2021-09 Yes [id number] 300mg Take 1 [facility] 300 mg 0-11 capsule by ity of capsule 00:00: mouth in [place] 00 the Medical morning Branch and 1 capsule in the evening. levothyroxi 2021-09 Yes [id number] 175ug Take 1 [facility] ne 175 mcg 0-11 tablet by ity of tablet 00:00: mouth [place] 00 every Medical morning. Branch MUST BE SEEN FOR FURTHER REFILLS KCL 10 mEq 2021-09 Yes [id number] 20meq Take 2 [facility] tablet 0-11 tablets by ity of 00:00: mouth in [place] 00 the Medical morning Branch and 2 tablets in the evening. Insulin 2021-09 Yes [id number] ADMINISTER [facility] Glargine 0-11 36 UNITS ity of ([place]US 00:00: UNDER THE [place] SOLOSTAR 00 SKIN TWICE Medic al U-100 DAILY Branch INSULIN) 100 unit/mL (3 mL) injection Insulin 2021-09 Yes [id number] Use as [facility] ers [place], 0-11 directed ity of Disposable, 00:00: to inject [place] (PEN 00 insulin Medical NEEDLE) 32 daily; Branch gauge x ICD-10 " Ndle code E11.8 loratadine 2021-09 Yes [id number] 10mg Take 1 U nivers 10 mg 0-11 tablet by ity of tablet 00:00: mouth at [place] 00 bedtime. Medical Branch omeprazole 2021-09 Yes [id number] 40mg Take 1 [facility] 40 mg 0-11 capsule by ity of capsule 00:00: mouth in [place] 00 the Medical morning. Branch ondansetron 2021-09 Yes [id number] TAKE 1 [facility] 4 mg tablet 0-11 TABLET BY ity of 00:00: MOUTH [place] 00 EVERY 8 Medical HOURS Branch NEEDED FOR NAUSEA OR VOMITING semaglutide 2021-09 Yes [id number] INJECT [facility] (OZEMPIC) 0-11 0.5MG ity of 0.25 mg or 00:00: UNDER THE [place] 0.5 mg(2 00 SKIN EVERY Medic al mg/1.5 mL) WEEK Branch PnIj prasugreL 2021-09 Yes [id number] 10mg Take 1 Un [place] 10 mg 0-11 tablet by ity of tablet 00:00: mouth in [place] 00 the Medical morning. Branch Appointmen t needed. Please contact office. QUEtiapine 2021-09 Yes [id number] 400mg Take 1 [facility] 400 mg 0-11 tablet by ity of tablet 00:00: mouth at [place] 00 bedtime. Medical ADDITIONAL Branch REFILLS PER PSYCHIATRY rosuvastati 2021-09 Yes [id number] 20mg Take 1 [facility] n 20 mg 0-11 tablet by ity of tablet 00:00: mouth at [place] 00 bedtime. Medical Branch spironolact 2021-09 Yes [id number] 25mg Take 1 [facility] one 25 mg 0-11 tablet by ity o f tablet 00:00: mouth in [place] 00 the Medical morning. Branch traZODone 2021-09 Yes [id number] TAKE 1 U nivers 100 mg 0-11 TABLET BY ity of tablet 00:00: MOUTH [place] 00 EVERY Medical NIGHT Branch busPIRone 2021-09 Yes [id number] 7.5mg Take 0.5-1 [facility] 15 mg 0-11 tablets by ity of tablet 00:00: mouth 2 [place] 00 (two) Medical times Branch daily as needed (anxiety). carBAMazepi 2021-09 Yes [id number] 200mg Take 2 [facility] ne 100 mg 0-11 tablets by ity of 12 hr 00:00: mouth at [place] [facility] 00 bedtime. Medical Branch DULoxetine 2021-09 Yes [id number] 60mg Take 1 [facility] 60 mg 0-11 capsule by ity of capsule 00:00: mouth in [place] 00 the Medical morning. Branch ADDITIONAL REFILLS PER PSYCHIATRY fluticasone 2021-09 Yes [id number] 1{spray Use 1-2 [facility] propionate 0-11 } Sprays in ity of 50 00:00: each [place] mcg/actuati 00 nostril in [place] on nasal the Branch spray morning. furosemide 2021-09 Yes [id number] 40mg Take 1 [facility] 40 mg 0-11 tablet by ity of tablet 00:00: mouth [place] 00 every Medical morning Branch and evening. gabapentin 2021-09 Yes [id number] 300mg Take 1 [facility] 300 mg 0-11 capsule by ity of capsule 00:00: mouth in [place] 00 the Medical morning Branch and 1 capsule in the evening. levothyroxi 2021-09 Yes [id number] 175ug Take 1 [facility] ne 175 mcg 0-11 tablet by ity of tablet 00:00: mouth [place] 00 every Medical morning. Branch MUST BE SEEN FOR FURTHER REFILLS KCL 10 mEq 2021-09 Yes [id number] 20meq Take 2 [facility] tablet 0-11 tablets by ity of 00:00: mouth in [place] 00 the Medical morning Branch and 2 tablets in the evening. Insulin 2021-09 Yes [id number] ADMINISTER [facility] Glargine 0-11 36 UNITS ity of ([place]US 00:00: UNDER THE [place] SOLOSTAR 00 SKIN TWICE Medic al U-100 DAILY Branch INSULIN) 100 unit/mL (3 mL) injection Insulin 2021-09 Yes [id number] Use as [facility] ers [place], 0-11 directed ity of Disposable, 00:00: to inject [place] (PEN 00 insulin Medical NEEDLE) 32 daily; Branch gauge x ICD-10 " Ndle code E11.8 loratadine 2021-09 Yes [id number] 10mg Take 1 U nivers 10 mg 0-11 tablet by ity of tablet 00:00: mouth at [place] [address] bedtime. Medical Branch omeprazole 2021-09 Yes [id number] 40mg Take 1 [facility] 40 mg 0-11 capsule by ity of capsule 00:00: mouth in [place] 00 the Medical morning. Branch ondansetron 2021-09 Yes [id number] TAKE 1 [facility] 4 mg tablet 0-11 TABLET BY ity of 00:00: MOUTH [place] 00 EVERY 8 Medical HOURS Branch NEEDED FOR NAUSEA OR VOMITING semaglutide 2021-09 Yes [id number] INJECT [facility] (OZEMPIC) 0-11 0.5MG ity of 0.25 mg or 00:00: UNDER THE [place] 0.5 mg(2 00 SKIN EVERY Medic al mg/1.5 mL) WEEK Branch PnIj prasugreL 2021-09 Yes [id number] 10mg Take 1 Un [place] 10 mg 0-11 tablet by ity of tablet 00:00: mouth in [place] 00 the Medical morning. Branch Appointmen t needed. Please contact office. QUEtiapine 2021-09 Yes [id number] 400mg Take 1 [facility] 400 mg 0-11 tablet by ity of tablet 00:00: mouth at [place] [address] bedtime. Medical ADDITIONAL Branch REFILLS PER PSYCHIATRY rosuvastati 2021-09 Yes [id number] 20mg Take 1 [facility] n 20 mg 0-11 tablet by ity of tablet 00:00: mouth at [place] [address] bedtime. Medical Branch spironolact 2021-09 Yes [id number] 25mg Take 1 [facility] one 25 mg 0-11 tablet by ity o f tablet 00:00: mouth in [place] 00 the Medical morning. Branch traZODone 2021-09 Yes [id number] TAKE 1 U nivers 100 mg 0-11 TABLET BY ity of tablet 00:00: MOUTH [place] 00 EVERY Medical NIGHT Branch busPIRone 2021-09 Yes [id number] 7.5mg Take 0.5-1 [facility] 15 mg 0-11 tablets by ity of tablet 00:00: mouth 2 [place] 00 (two) Medical times Branch daily as needed (anxiety). carBAMazepi 2021-09 Yes [id number] 200mg Take 2 [facility] ne 100 mg 0-11 tablets by ity of 12 hr 00:00: mouth at [place] [facility] 00 bedtime. Medical Branch DULoxetine 2021-09 Yes [id number] 60mg Take 1 [facility] 60 mg 0-11 capsule by ity of capsule 00:00: mouth in [place] 00 the Medical morning. Branch ADDITIONAL REFILLS PER PSYCHIATRY fluticasone 2021-09 Yes [id number] 1{spray Use 1-2 [facility] propionate 0-11 } Sprays in ity of 50 00:00: each [place] mcg/actuati 00 nostril in Me dical on nasal the Branch spray morning. furosemide 2021-09 Yes [id number] 40mg Take 1 [facility] 40 mg 0-11 tablet by ity of tablet 00:00: mouth [place] 00 every Medical morning Branch and evening. gabapentin 2021-09 Yes [id number] 300mg Take 1 [facility] 300 mg 0-11 capsule by ity of capsule 00:00: mouth in [place] 00 the Medical morning Branch and 1 capsule in the evening. levothyroxi 2021-09 Yes [id number] 175ug Take 1 [facility] ne 175 mcg 0-11 tablet by ity of tablet 00:00: mouth [place] [address] every Medical morning. Branch MUST BE SEEN FOR FURTHER REFILLS KCL 10 mEq 2021-09 Yes [id number] 20meq Take 2 [facility] tablet 0-11 tablets by ity of 00:00: mouth in [place] [address] the Medical morning Branch and 2 tablets in the evening. Insulin 2021-09 Yes [id number] ADMINISTER [facility] Glargine 0-11 36 UNITS ity of (L[place]US 00:00: UNDER THE [place] SOLOSTAR 00 SKIN TWICE Medic al U-100 DAILY Branch INSULIN) 100 unit/mL (3 mL) injection Insulin 2021-09 Yes [id number] Use as [facility] ers [place], 0-11 directed ity of Disposable, 00:00: to inject [place] (PEN 00 insulin Medical NEEDLE) 32 daily; Branch gauge x ICD-10 5/32" Ndle code E11.8 loratadine 2021-09 Yes [id number] 10mg Take 1 U nivers 10 mg 0-11 tablet by ity of tablet 00:00: mouth at [place] [address] bedtime. Medical Branch omeprazole 2021-09 Yes [id number] 40mg Take 1 [facility] 40 mg 0-11 capsule by ity of capsule 00:00: mouth in [place] 00 the Medical morning. Branch ondansetron 2021-09 Yes [id number] TAKE 1 [facility] 4 mg tablet 0-11 TABLET BY ity of 00:00: MOUTH [place] EVERY 8 Medical HOURS Branch NEEDED FOR NAUSEA OR VOMITING prasugreL 2021-09 Yes [id number] 10mg Take 1 Un [place] 10 mg 0-11 tablet by ity of tablet 00:00: mouth in [place] 00 the Medical morning. Branch Appointmen t needed. Please contact office. QUEtiapine 2021-09 Yes [id number] 400mg Take 1 [facility] 400 mg 0-11 tablet by ity of tablet 00:00: mouth at [place] [address] bedtime. Medical ADDITIONAL Branch REFILLS PER PSYCHIATRY rosuvastati 2021-09 Yes [id number] 20mg Take 1 [facility] n 20 mg 0-11 tablet by ity of tablet 00:00: mouth at [place] [address] bedtime. Medical Branch spironolact 2021-09 Yes [id number] 25mg Take 1 [facility] one 25 mg 0-11 tablet by ity o f tablet 00:00: mouth in [place] 00 the Medical morning. Branch traZODone 2021-09 Yes [id number] TAKE 1 U nivers 100 mg 0-11 TABLET BY ity of tablet 00:00: MOUTH [place] 00 EVERY Medical NIGHT Branch busPIRone 2021-09 Yes [id number] 7.5mg Take 0.5-1 [facility] 15 mg 0-11 tablets by ity of tablet 00:00: mouth 2 [place] 00 (two) Medical times Branch daily as needed (anxiety). carBAMazepi 2021-09 Yes [id number] 200mg Take 2 [facility] ne 100 mg 0-11 tablets by ity of 12 hr 00:00: mouth at [place] [facility] 00 bedtime. Medical Branch DULoxetine 2021-09 Yes [id number] 60mg Take 1 [facility] 60 mg 0-11 capsule by ity of capsule 00:00: mouth in [place] 00 the Medical morning. Branch ADDITIONAL REFILLS PER PSYCHIATRY fluticasone 2021-09 Yes [id number] 1{spray Use 1-2 [facility] propionate 0-11 } Sprays in ity of 50 00:00: each [place] mcg/actuati 00 nostril in [place] on nasal the Branch spray morning. furosemide 2021-09 Yes [id number] 40mg Take 1 [facility] 40 mg 0-11 tablet by ity of tablet 00:00: mouth [place] 00 every Medical morning Branch and evening. gabapentin 2021-09 Yes [id number] 300mg Take 1 [facility] 300 mg 0-11 capsule by ity of capsule 00:00: mouth in [place] 00 the Medical morning Branch and 1 capsule in the evening. levothyroxi 2021-09 Yes [id number] 175ug Take 1 [facility] ne 175 mcg 0-11 tablet by ity of tablet 00:00: mouth [place] 00 every Medical morning. Branch MUST BE SEEN FOR FURTHER REFILLS KCL 10 mEq 2021-09 Yes [id number] 20meq Take 2 [facility] tablet 0-11 tablets by ity of 00:00: mouth in [place] 00 the Medical morning Branch and 2 tablets in the evening. Insulin 2021-09 Yes [id number] ADMINISTER [facility] Glargine 0-11 36 UNITS ity of (L[place]US 00:00: UNDER THE [place] SOLOSTAR 00 SKIN TWICE Medic al U-100 DAILY Branch INSULIN) 100 unit/mL (3 mL) injection Insulin 2021-09 Yes [id number] Use as [facility] ers [place], 0-11 directed ity of Disposable, 00:00: to inject [place] (PEN 00 insulin Medical NEEDLE) 32 daily; Branch gauge x ICD-10 " Ndle code E11.8 loratadine 2021-09 Yes [id number] 10mg Take 1 [facility] nivers 10 mg 0-11 tablet by [facility] of tablet 00:00: mouth at [place] [address] bedtime. Medical Branch omeprazole 2021-09 Yes [id number] 40mg Take 1 [facility] 40 mg 0-11 capsule by [facility] of capsule 00:00: mouth in [place] 00 the Medical morning. Branch ondansetron 2021-09 Yes [id number] TAKE 1 [facility] 4 mg tablet 0-11 TABLET BY ity of 00:00: MOUTH [place] 00 EVERY 8 Medical HOURS Branch NEEDED FOR NAUSEA OR VOMITING prasugreL 2021-09 Yes [id number] 10mg Take 1 [facility] p[facility] 10 mg 0-11 tablet by it[facility] of tablet 00:00: mouth in [place] 00 the Medical morning. Branch Appointmen t needed. Please contact office. QUEtiapine 2021-09 Yes [id number] 400mg Take 1 [facility] 400 mg 0-11 tablet by ity of tablet 00:00: mouth at [place] [address] bedtime. Medical ADDITIONAL Branch REFILLS PER PSYCHIATRY rosuvastati 2021-09 Yes [id number] 20mg Take 1 [facility] n 20 mg 0-11 tablet by ity of tablet 00:00: mouth at [place] [address] bedtime. Medical Branch spironolact 2021-09 Yes [id number] 25mg Take 1 [facility] one 25 mg 0-11 tablet by ity o f tablet 00:00: mouth in [place] 00 the Medical morning. Branch traZODone 2021-09 Yes [id number] TAKE 1 [facility] nivers 100 mg 0-11 TABLET BY ity of tablet 00:00: MOUTH [place] 00 EVERY Medical NIGHT Branch busPIRone 2021-09 Yes [id number] 7.5mg Take 0.5-1 [facility] 15 mg 0-11 tablets by ity of tablet 00:00: mouth 2 [place] 00 (two) Medical times Branch daily as needed (anxiety). carBAMazepi 2021-09 Yes [id number] 200mg Take 2 [facility] ne 100 mg 0-11 tablets by ity of 12 hr 00:00: mouth at [place] tablet 00 bedtime. Medical Branch DULoxetine 2021-09 Yes [id number] 60mg Take 1 [facility] 60 mg 0-11 capsule by ity of capsule 00:00: mouth in [place] 00 the Medical morning. Branch ADDITIONAL REFILLS PER PSYCHIATRY fluticasone 2021-09 Yes [id number] 1{spray Use 1-2 [facility] propionate 0-11 } Sprays in ity of 50 00:00: each [place] mcg/actuati 00 nostril in [place] on nasal the Branch spray morning. furosemide 2021-09 Yes [id number] 40mg Take 1 [facility] 40 mg 0-11 tablet by ity of tablet 00:00: mouth [place] 00 every Medical morning Branch and evening. gabapentin 2021-09 Yes [id number] 300mg Take 1 [facility] 300 mg 0-11 capsule by ity of capsule 00:00: mouth in [place] 00 the Medical morning Branch and 1 capsule in the evening. levothyroxi 2021-09 Yes [id number] 175ug Take 1 [facility] ne 175 mcg 0-11 tablet by ity of tablet 00:00: mouth [place] 00 every Medical morning. Branch MUST BE SEEN FOR FURTHER REFILLS KCL 10 mEq 2021-09 Yes [id number] 20meq Take 2 [facility] tablet 0-11 tablets by ity of 00:00: mouth in [place] 00 the Medical morning Branch and 2 tablets in the evening. Insulin 2021-09 Yes [id number] ADMINISTER [facility] Glargine 0-11 36 UNITS ity of (LANTUS 00:00: UNDER THE [place] SOLOSTAR 00 SKIN TWICE Medic al U-100 DAILY Branch INSULIN) 100 unit/mL (3 mL) injection Insulin 2021-09 Yes [id number] Use as [facility] ers [place], 0-11 directed ity of Disposable, 00:00: to inject [place] (PEN 00 insulin Medical NEEDLE) 32 daily; Branch gauge x ICD-10 " Ndle code E11.8 loratadine 2021-09 Yes [id number] 10mg Take 1 [facility] n[facility] 10 mg 0-11 tablet by ity of tablet 00:00: mouth at [place] 00 bedtime. Medical Branch omeprazole 2021-09 Yes [id number] 40mg Take 1 [facility] 40 mg 0-11 capsule by ity of capsule 00:00: mouth in [place] 00 the Medical morning. Branch ondansetron 2021-09 Yes [id number] TAKE 1 [facility] 4 mg tablet 0-11 TABLET BY ity of 00:00: MOUTH [place] 00 EVERY 8 Medical HOURS Branch NEEDED FOR NAUSEA OR VOMITING prasugreL 2021-09 Yes [id number] 10mg Take 1 [facility] [place] 10 mg 0-11 tablet by ity of tablet 00:00: mouth in [place] 00 the Medical morning. Branch Appointmen t needed. Please contact office. QUEtiapine 2021-09 Yes [id number] 400mg Take 1 [facility] 400 mg 0-11 tablet by ity of tablet 00:00: mouth at [place] [address] bedtime. Medical ADDITIONAL Branch REFILLS PER PSYCHIATRY rosuvastati 2021-09 Yes [id number] 20mg Take 1 [facility] n 20 mg 0-11 tablet by ity of tablet 00:00: mouth at [place] 00 bedtime. Medical Branch spironolact 2021-09 Yes [id number] 25mg Take 1 [facility] one 25 mg 0-11 tablet by ity o f tablet 00:00: mouth in [place] 00 the Medical morning. Branch busPIRone 2021-09 Yes [id number] 7.5mg Take 0.5-1 [facility] 15 mg 0-11 tablets by ity of tablet 00:00: mouth 2 [place] 00 (two) Medical times Branch daily as needed (anxiety). carBAMazepi 2021-09 Yes [id number] 200mg Take 2 [facility] ne 100 mg 0-11 tablets by ity of 12 hr 00:00: mouth at [facility] 00 bedtime. Medical Branch DULoxetine 2021-09 Yes [id number] 60mg Take 1 [facility] 60 mg 0-11 capsule by ity of capsule 00:00: mouth in [place] 00 the Medical morning. Branch ADDITIONAL REFILLS PER PSYCHIATRY fluticasone 2021-09 Yes [id number] 1{spray Use 1-2 [facility] propionate 0-11 } Sprays in ity of 50 00:00: each [place] mcg/actuati 00 nostril in [place] on nasal the Branch spray morning. furosemide 2021-09 Yes [id number] 40mg Take 1 [facility] 40 mg 0-11 tablet by ity of tablet 00:00: mouth [place] 00 every Medical morning Branch and evening. gabapentin 2021-09 Yes [id number] 300mg Take 1 [facility] 300 mg 0-11 capsule by ity of capsule 00:00: mouth in [place] 00 the Medical morning Branch and 1 capsule in the evening. levothyroxi 2021-09 Yes [id number] 175ug Take 1 [facility] ne 175 mcg 0-11 tablet by ity of tablet 00:00: mouth [place] [address] every Medical morning. Branch MUST BE SEEN FOR FURTHER REFILLS KCL 10 mEq 2021-09 Yes [id number] 20meq Take 2 [facility] tablet 0-11 tablets by ity of 00:00: mouth in [place] [address] the Medical morning Branch and 2 tablets in the evening. Insulin 2021-09 Yes [id number] ADMINISTER [facility] Glargine 0-11 36 UNITS ity of (LANTUS 00:00: UNDER THE [place] SOLOSTAR 00 SKIN TWICE Medic al U-100 DAILY Branch INSULIN) 100 unit/mL (3 mL) injection Insulin 2021-09 Yes [id number] Use as [facility] [place], 0-11 directed ity of Disposable, 00:00: to inject [place] (PEN 00 insulin Medical NEEDLE) 32 daily; Branch gauge x ICD-10 5/32" Ndle code E11.8 loratadine 2021-09 Yes [id number] 10mg Take 1 [facility] nivers 10 mg 0-11 tablet by ity of tablet 00:00: mouth at [place] [address] bedtime. Medical Branch omeprazole 2021-09 Yes [id number] 40mg Take 1 [facility] 40 mg 0-11 capsule by ity of capsule 00:00: mouth in [place] [address] the Medical morning. Branch ondansetron 2021-09 Yes [id number] TAKE 1 [facility] 4 mg tablet 0-11 TABLET BY ity of 00:00: MOUTH [place] [address] EVERY 8 Medical HOURS Branch NEEDED FOR NAUSEA OR VOMITING prasugreL 2021-09 Yes [id number] 10mg Take 1 [facility] p[facility]a 10 mg 0-11 tablet by ity of tablet 00:00: mouth in [place] 00 the Medical morning. Branch Appointmen t needed. Please contact office. QUEtiapine 2021-09 Yes [id number] 400mg Take 1 [facility] 400 mg 0-11 tablet by ity of tablet 00:00: mouth at [place] [address] bedtime. Medical ADDITIONAL Branch REFILLS PER PSYCHIATRY rosuvastati 2021-09 Yes [id number] 20mg Take 1 [facility] n 20 mg 0-11 tablet by ity of tablet 00:00: mouth at [place] [address] bedtime. Medical Branch spironolact 2021-09 Yes [id number] 25mg Take 1 [facility] one 25 mg 0-11 tablet by ity o f tablet 00:00: mouth in [place] the Medical morning. Branch fluticasone 2021-09 Yes [id number] 1{spray Use 1-2 [facility] propionate 0-11 } Sprays in ity of 50 00:00: each [place] mcg/actuati 00 nostril in [place] on nasal the Branch spray morning. KCL 10 mEq 2021-09 Yes [id number] 20meq Take 2 [facility] tablet 0-11 tablets by ity of 00:00: mouth in [place] the Medical morning Branch and 2 tablets in the evening. Insulin 2021-09 Yes [id number] ADMINISTER [facility] Glargine 0-11 36 UNITS ity of ([place]US 00:00: UNDER THE [place] SOLOSTAR 00 SKIN TWICE Medic al U-100 DAILY Branch INSULIN) 100 unit/mL (3 mL) injection Insulin 2021-09 Yes [id number] Use as [facility] [place], 0-11 directed ity of Disposable, 00:00: to inject [place] (PEN 00 insulin Medical NEEDLE) 32 daily; Branch gauge x ICD-10 32" Ndle code E11.8 loratadine 2021-09 Yes [id number] 10mg Take 1 [facility] nivers 10 mg 0-11 tablet by ity of tablet 00:00: mouth at [place] [address] bedtime. Medical Branch omeprazole 2021-09 Yes [id number] 40mg Take 1 [facility] 40 mg 0-11 capsule by ity of capsule 00:00: mouth in [place] 00 the Medical morning. Branch ondansetron 2021-09 Yes [id number] TAKE 1 [facility] 4 mg tablet 0-11 TABLET BY ity of 00:00: MOUTH [place] 00 EVERY 8 Medical HOURS Branch NEEDED FOR NAUSEA OR VOMITING prasugreL 2021-09 Yes [id number] 10mg Take 1 Un pippa 10 mg 0-11 tablet by ity of tablet 00:00: mouth in [place] 00 the Medical morning. Branch Appointmen t needed. Please contact office. QUEtiapine 2021-09 Yes [id number] 400mg Take 1 [facility] 400 mg 0-11 tablet by ity of tablet 00:00: mouth at [place] [address] bedtime. Medical ADDITIONAL Branch REFILLS PER PSYCHIATRY rosuvastati 2021-09 Yes [id number] 20mg Take 1 [facility] n 20 mg 0-11 tablet by ity of tablet 00:00: mouth at [place] [address] bedtime. Medical Branch spironolact 2021-09 Yes [id number] 25mg Take 1 [facility] one 25 mg 0-11 tablet by ity o f tablet 00:00: mouth in [place] 00 the Medical morning. Branch fluticasone 2021-09 Yes [id number] 1{spray Use 1-2 [facility] propionate 0-11 } Sprays in ity of 50 00:00: each [place] mcg/actuati 00 nostril in [place] on nasal the Branch spray morning. KCL 10 mEq 2021-09 Yes [id number] 20meq Take 2 [facility] tablet 0-11 tablets by ity of 00:00: mouth in [place] 00 the Medical morning Branch and 2 tablets in the evening. Insulin 2021-09 Yes [id number] ADMINISTER [facility] Glargine 0-11 36 UNITS ity of ([place] 00:00: UNDER THE [place] SOLOSTAR 00 SKIN TWICE Medic al U-100 DAILY Branch INSULIN) 100 unit/mL (3 mL) injection Insulin 2021-09 Yes [id number] Use as [facility] [place], 0-11 directed ity of Disposable, 00:00: to inject [place] (PEN 00 insulin Medical NEEDLE) 32 daily; Branch gauge x ICD-10 " Ndle code E11.8 loratadine 2021-09 Yes [id number] 10mg Take 1 U nivers 10 mg 0-11 tablet by ity of tablet 00:00: mouth at [place] [address] bedtime. Medical Branch omeprazole 2021-09 Yes [id number] 40mg Take 1 [facility] 40 mg 0-11 capsule by ity of capsule 00:00: mouth in [place] 00 the Medical morning. Branch ondansetron 2021-09 Yes [id number] TAKE 1 [facility] 4 mg tablet 0-11 TABLET BY ity of 00:00: MOUTH [place] 00 EVERY 8 Medical HOURS Branch NEEDED FOR NAUSEA OR VOMITING prasugreL 2021-09 Yes [id number] 10mg Take 1 Un p[place]a 10 mg 0-11 tablet by ity of tablet 00:00: mouth in [place] 00 the Medical morning. Branch Appointmen t needed. Please contact office. QUEtiapine 2021-09 Yes [id number] 400mg Take 1 [facility] 400 mg 0-11 tablet by ity of tablet 00:00: mouth at [place] [address] bedtime. Medical ADDITIONAL Branch REFILLS PER PSYCHIATRY rosuvastati 2021-09 Yes [id number] 20mg Take 1 [facility] n 20 mg 0-11 tablet by ity of tablet 00:00: mouth at [place] [address] bedtime. Medical Branch spironolact 2021-09 Yes [id number] 25mg Take 1 [facility] one 25 mg 0-11 tablet by ity o f tablet 00:00: mouth in [place] 00 the Medical morning. Branch fluticasone 2021-09 Yes [id number] 1{spray Use 1-2 [facility] propionate 0-11 } Sprays in ity of 50 00:00: each [place] mcg/actuati 00 nostril in [place] on nasal the Branch spray morning. KCL 10 mEq 2021-09 Yes [id number] 20meq Take 2 [facility] tablet 0-11 tablets by ity of 00:00: mouth in [place] 00 the Medical morning Branch and 2 tablets in the evening. Insulin 2021-09 Yes [id number] ADMINISTER [facility] Glargine 0-11 36 UNITS ity of (L[place]US 00:00: UNDER THE [place] SOLOSTAR 00 SKIN TWICE Medic al U-100 DAILY Branch INSULIN) 100 unit/mL (3 mL) injection Insulin 2021-09 Yes [id number] Use as [facility] ers [place], 0-11 directed ity of Disposable, 00:00: to inject [place] (PEN 00 insulin Medical NEEDLE) 32 daily; Branch gauge x ICD-10 " Ndle code E11.8 loratadine 2021-09 Yes [id number] 10mg Take 1 U nivers 10 mg 0-11 tablet by ity of tablet 00:00: mouth at [place] [address] bedtime. Medical Branch omeprazole 2021-09 Yes [id number] 40mg Take 1 [facility] 40 mg 0-11 capsule by ity of capsule 00:00: mouth in [place] 00 the Medical morning. Branch ondansetron 2021-09 Yes [id number] TAKE 1 [facility] 4 mg tablet 0-11 TABLET BY ity of 00:00: MOUTH [place] [address] EVERY 8 Medical HOURS Branch NEEDED FOR NAUSEA OR VOMITING prasugreL 2021-09 Yes [id number] 10mg Take 1 Un pipap 10 mg 0-11 tablet by ity of tablet 00:00: mouth in [place] 00 the Medical morning. Branch Appointmen t needed. Please contact office. QUEtiapine 2021-09 Yes [id number] 400mg Take 1 [facility] 400 mg 0-11 tablet by ity of tablet 00:00: mouth at [place] [address] bedtime. Medical ADDITIONAL Branch REFILLS PER PSYCHIATRY rosuvastati 2021-09 Yes [id number] 20mg Take 1 [facility] n 20 mg 0-11 tablet by ity of tablet 00:00: mouth at [place] [address] bedtime. Medical Branch spironolact 2021-09 Yes [id number] 25mg Take 1 [facility] one 25 mg 0-11 tablet by ity o f tablet 00:00: mouth in [place] 00 the Medical morning. Branch fluticasone 2021-09 Yes [id number] 1{spray Use 1-2 [facility] propionate 0-11 } Sprays in ity of 50 00:00: each [place] mcg/actuati 00 nostril in [place] on nasal the Branch spray morning. KCL 10 mEq 2021-09 Yes [id number] 20meq Take 2 [facility] tablet 0-11 tablets by ity of 00:00: mouth in [place] 00 the Medical morning Branch and 2 tablets in the evening. Insulin 2021-09 Yes [id number] ADMINISTER [facility] Glargine 0-11 36 UNITS ity of (LANTUS 00:00: UNDER THE [place] SOLOSTAR 00 SKIN TWICE Medic al U-100 DAILY Branch INSULIN) 100 unit/mL (3 mL) injection Insulin 2021-09 Yes [id number] Use as [facility] ers [place], 0-11 directed ity of Disposable, 00:00: to inject [place] (PEN 00 insulin Medical NEEDLE) 32 daily; Branch gauge x ICD-10 " Ndle code E11.8 loratadine 2021-09 Yes [id number] 10mg Take 1 U nivers 10 mg 0-11 tablet by ity of tablet 00:00: mouth at [place] [address] bedtime. Medical Branch omeprazole 2021-09 Yes [id number] 40mg Take 1 [facility] 40 mg 0-11 capsule by ity of capsule 00:00: mouth in [place] the morning. Branch ondansetron 2021-09 Yes [id number] TAKE 1 [facility] 4 mg tablet 0-11 TABLET BY ity of 00:00: MOUTH [place] [address] EVERY 8 Medical HOURS Branch NEEDED FOR NAUSEA OR VOMITING prasugreL 2021-09 Yes [id number] 10mg Take 1 Un pippa 10 mg 0-11 tablet by ity of tablet 00:00: mouth in [place] the morning. Branch Appointmen t needed. Please contact office. QUEtiapine 2021-09 Yes [id number] 400mg Take 1 [facility] 400 mg 0-11 tablet by ity of tablet 00:00: mouth at [place] [address] bedtime. Medical ADDITIONAL Branch REFILLS PER PSYCHIATRY rosuvastati 2021-09 Yes [id number] 20mg Take 1 [facility] n 20 mg 0-11 tablet by ity of tablet 00:00: mouth at [place] [address] bedtime. Medical Branch spironolact 2021-09 Yes [id number] 25mg Take 1 [facility] one 25 mg 0-11 tablet by ity o f tablet 00:00: mouth in [place] the morning. Branch fluticasone 2021-09 Yes [id number] 1{spray Use 1-2 [facility] propionate 0-11 } Sprays in ity of 50 00:00: each [place] mcg/actuati 00 nostril in [place] on nasal the Branch spray morning. KCL 10 mEq 2021-09 Yes [id number] 20meq Take 2 [facility] tablet 0-11 tablets by ity of 00:00: mouth in [place] the Medical morning Branch and 2 tablets in the evening. Insulin 2021-09 Yes [id number] ADMINISTER [facility] Glargine 0-11 36 UNITS ity of (L[place]US 00:00: UNDER THE [place] SOLOSTAR 00 SKIN TWICE Medic al U-100 DAILY Branch INSULIN) 100 unit/mL (3 mL) injection Insulin 2021-09 Yes [id number] Use as [facility] ers [place], 0-11 directed ity of Disposable, 00:00: to inject [place] (PEN 00 insulin Medical NEEDLE) 32 daily; Branch gauge x ICD-10 " Ndle code E11.8 loratadine 2021-09 Yes [id number] 10mg Take 1 U nivers 10 mg 0-11 tablet by ity of tablet 00:00: mouth at [place] [address] bedtime. Medical Branch omeprazole 2021-09 Yes [id number] 40mg Take 1 [facility] 40 mg 0-11 capsule by ity of capsule 00:00: mouth in [place] 00 the Medical morning. Branch ondansetron 2021-09 Yes [id number] TAKE 1 [facility] 4 mg tablet 0-11 TABLET BY ity of 00:00: MOUTH [place] 00 EVERY 8 Medical HOURS Branch NEEDED FOR NAUSEA OR VOMITING prasugreL 2021-09 Yes [id number] 10mg Take 1 Un pippa 10 mg 0-11 tablet by ity of tablet 00:00: mouth in [place] 00 the Medical morning. Branch Appointmen t needed. Please contact office. QUEtiapine 2021-09 Yes [id number] 400mg Take 1 [facility] 400 mg 0-11 tablet by ity of tablet 00:00: mouth at [place] [address] bedtime. Medical ADDITIONAL Branch REFILLS PER PSYCHIATRY rosuvastati 2021-09 Yes [id number] 20mg Take 1 [facility] n 20 mg 0-11 tablet by ity of tablet 00:00: mouth at [place] [address] bedtime. Medical Branch spironolact 2021-09 Yes [id number] 25mg Take 1 [facility] one 25 mg 0-11 tablet by ity o f tablet 00:00: mouth in [place] 00 the Medical morning. Branch fluticasone 2021-09 Yes [id number] 1{spray Use 1-2 [facility] propionate 0-11 } Sprays in ity of 50 00:00: each [place] mcg/actuati 00 nostril in [place] on nasal the Branch spray morning. Insulin 2021-09 Yes [id number] Use as [facility] ers [place], 0-11 directed ity of Disposable, 00:00: to inject [place] (PEN 00 insulin Medical NEEDLE) 32 daily; Branch gauge x ICD-10 " Ndle code E11.8 loratadine 2021-09 Yes [id number] 10mg Take 1 U nivers 10 mg 0-11 tablet by ity of tablet 00:00: mouth at [place] [address] bedtime. Medical Branch prasugreL 2021-09 Yes [id number] 10mg Take 1 Un p[place]a 10 mg 0-11 tablet by ity of tablet 00:00: mouth in [place] the Medical morning. Branch Appointmen t needed. Please contact office. spironolact 2021-09 Yes [id number] 25mg Take 1 [facility] one 25 mg 0-11 tablet by ity o f tablet 00:00: mouth in [place] 00 the Medical morning. Branch fluticasone 2021-09 Yes [id number] 1{spray Use 1-2 [facility] propionate 0-11 } Sprays in ity of 50 00:00: each [place] mcg/actuati 00 nostril in Me dical on nasal the Branch spray morning. Insulin 2021-09 Yes [id number] Use as [facility] ers [place], 0-11 directed ity of Disposable, 00:00: to inject [place] (PEN 00 insulin Medical NEEDLE) 32 daily; Branch gauge x ICD-10 " Ndle code E11.8 loratadine 2021-09 Yes [id number] 10mg Take 1 U nivers 10 mg 0-11 tablet by ity of tablet 00:00: mouth at [place] [address] bedtime. Medical Branch prasugreL 2021-09 Yes [id number] 10mg Take 1 Un [place] 10 mg 0-11 tablet by ity of tablet 00:00: mouth in [place] the Medical morning. Branch Appointmen t needed. Please contact office. spironolact 2021-09 Yes [id number] 25mg Take 1 [facility] one 25 mg 0-11 tablet by ity o f tablet 00:00: mouth in [place] the Medical morning. Branch fluticasone 2021-09 Yes [id number] 1{spray Use 1-2 [facility] propionate 0-11 } Sprays in ity of 50 00:00: each [place] mcg/actuati 00 nostril in Me dical on nasal the Branch spray morning. Insulin 2021-09 Yes [id number] Use as [facility] ers [place], 0-11 directed ity of Disposable, 00:00: to inject [place] (PEN 00 insulin Medical NEEDLE) 32 daily; Branch gauge x ICD-10 " Ndle code E11.8 loratadine 2021-09 Yes [id number] 10mg Take 1 U nivers 10 mg 0-11 tablet by ity of tablet 00:00: mouth at [place] [address] bedtime. Medical Branch prasugreL 2021-09 Yes [id number] 10mg Take 1 Un [place] 10 mg 0-11 tablet by ity of tablet 00:00: mouth in [place] the Medical morning. Branch Appointmen t needed. Please contact office. spironolact 2021-09 Yes [id number] 25mg Take 1 [facility] one 25 mg 0-11 tablet by ity o f tablet 00:00: mouth in [place] the Medical morning. Branch fluticasone 2021-09 Yes [id number] 1{spray Use 1-2 [facility] propionate 0-11 } Sprays in ity of 50 00:00: each [place] mcg/actuati 00 nostril in Me dical on nasal the Branch spray morning. Insulin 2021-09 Yes [id number] Use as [facility] ers [place], 0-11 directed ity of Disposable, 00:00: to inject [place] (PEN 00 insulin Medical NEEDLE) 32 daily; Branch gauge x ICD-10 " Ndle code E11.8 loratadine 2021-09 Yes [id number] 10mg Take 1 U nivers 10 mg 0-11 tablet by ity of tablet 00:00: mouth at [place] [address] bedtime. Medical Branch prasugreL 2021-09 Yes [id number] 10mg Take 1 Un [place] 10 mg 0-11 tablet by ity of tablet 00:00: mouth in [place] the Medical morning. Branch Appointmen t needed. Please contact office. spironolact 2021-09 Yes [id number] 25mg Take 1 [facility] one 25 mg 0-11 tablet by ity o f tablet 00:00: mouth in [place] the Medical morning. Branch fluticasone 2021-09 Yes [id number] 1{spray Use 1-2 [facility] propionate 0-11 } Sprays in ity of 50 00:00: each [place] mcg/actuati 00 nostril in Me dical on nasal the Branch spray morning. Insulin 2021-09 Yes [id number] Use as [facility] ers [place], 0-11 directed ity of Disposable, 00:00: to inject [place] (PEN 00 insulin Medical NEEDLE) 32 daily; Branch gauge x ICD-10 " Ndle code E11.8 loratadine 2021-09 Yes [id number] 10mg Take 1 U nivers 10 mg 0-11 tablet by ity of tablet 00:00: mouth at [place] 00 bedtime. Medical Branch prasugreL 2021-09 Yes [id number] 10mg Take 1 Un [place] 10 mg 0-11 tablet by ity of tablet 00:00: mouth in [place] the Medical morning. Branch Appointmen t needed. Please contact office. spironolact 2021-09 Yes [id number] 25mg Take 1 [facility] one 25 mg 0-11 tablet by ity o f tablet 00:00: mouth in [place] the Medical morning. Branch fluticasone 2021-09 Yes [id number] 1{spray Use 1-2 [facility] propionate 0-11 } Sprays in ity of 50 00:00: each [place] mcg/actuati 00 nostril in Me dical on nasal the Branch spray morning. Insulin 2021-09 Yes [id number] Use as [facility] ers [place], 0-11 directed ity of Disposable, 00:00: to inject [place] (PEN 00 insulin Medical NEEDLE) 32 daily; Branch gauge x ICD-10 " Ndle code E11.8 loratadine 2021-09 Yes [id number] 10mg Take 1 U nivers 10 mg 0-11 tablet by ity of tablet 00:00: mouth at [place] [address] bedtime. Medical Branch prasugreL 2021-09 Yes [id number] 10mg Take 1 Un [place] 10 mg 0-11 tablet by ity of tablet 00:00: mouth in [place] the Medical morning. Branch Appointmen t needed. Please contact office. spironolact 2021-09 Yes [id number] 25mg Take 1 [facility] one 25 mg 0-11 tablet by ity o f tablet 00:00: mouth in [place] the Medical morning. Branch fluticasone 2021-09 Yes [id number] 1{spray Use 1-2 [facility] propionate 0-11 } Sprays in ity of 50 00:00: each [place] mcg/actuati 00 nostril in Me dical on nasal the Branch spray morning. Insulin 2021-09 Yes [id number] Use as [facility] ers [place], 0-11 directed ity of Disposable, 00:00: to inject [place] (PEN 00 insulin Medical NEEDLE) 32 daily; Branch gauge x ICD-10 " Ndle code E11.8 loratadine 2021-09 Yes [id number] 10mg Take 1 U nivers 10 mg 0-11 tablet by ity of tablet 00:00: mouth at [place] [address] bedtime. Medical Branch prasugreL 2021-09 Yes [id number] 10mg Take 1 Un [place] 10 mg 0-11 tablet by ity of tablet 00:00: mouth in [place] the Medical morning. Branch Appointmen t needed. Please contact office. spironolact 2021-09 Yes [id number] 25mg Take 1 [facility] one 25 mg 0-11 tablet by ity o f tablet 00:00: mouth in [place] the Medical morning. Branch fluticasone 2021-09 Yes [id number] 1{spray Use 1-2 [facility] propionate 0-11 } Sprays in ity of 50 00:00: each [place] mcg/actuati 00 nostril in Me dical on nasal the Branch spray morning. Insulin 2021-09 Yes [id number] Use as [facility] ers [place], 0-11 directed ity of Disposable, 00:00: to inject [place] (PEN 00 insulin Medical NEEDLE) 32 daily; Branch gauge x ICD-10 " Ndle code E11.8 loratadine 2021-09 Yes [id number] 10mg Take 1 [facility] nivers 10 mg 0-11 tablet by ity of tablet 00:00: mouth at [place] [address] bedtime. Medical Branch prasugreL 2021-09 Yes [id number] 10mg Take 1 Un [place] 10 mg 0-11 tablet by ity of tablet 00:00: mouth in [place] the Medical morning. Branch Appointmen t needed. Please contact office. spironolact 2021-09 Yes [id number] 25mg Take 1 [facility] one 25 mg 0-11 tablet by ity o f tablet 00:00: mouth in [place] the Medical morning. Branch fluticasone 2021-09 Yes [id number] 1{spray Use 1-2 [facility] propionate 0-11 } Sprays in ity of 50 00:00: each [place] mcg/actuati 00 nostril in Me dical on nasal the Branch spray morning. Insulin 2021-09 Yes [id number] Use as [facility] [place], 0-11 directed ity of Disposable, 00:00: to inject [place] (PEN 00 insulin Medical NEEDLE) 32 daily; Branch gauge x ICD-10 " Ndle code E11.8 loratadine 2021-09 Yes [id number] 10mg Take 1 [facility] nivers 10 mg 0-11 tablet by ity of tablet 00:00: mouth at [place] 00 bedtime. Medical Branch prasugreL 2021-09 Yes [id number] 10mg Take 1 Un [place] 10 mg 0-11 tablet by ity of tablet 00:00: mouth in [place] the Medical morning. Branch Appointmen t needed. Please contact office. spironolact 2021-09 Yes [id number] 25mg Take 1 [facility] one 25 mg 0-11 tablet by ity o f tablet 00:00: mouth in [place] the Medical morning. Branch fluticasone 2021-09 Yes [id number] 1{spray Use 1-2 [facility] propionate 0-11 } Sprays in ity of 50 00:00: each [place] mcg/actuati 00 nostril in Me dical on nasal the Branch spray morning. Insulin 2021-09 Yes [id number] Use as [facility], 0-11 directed [facility]y of Disposable, 00:00: to inject [place] (PEN 00 insulin Medical NEEDLE) 32 daily; Branch gauge x ICD-10 " Ndle code E11.8 loratadine 2021-09 Yes [id number] 10mg Take 1 [facility] 10 mg 0-11 tablet by ity of tablet 00:00: mouth at [place] 00 bedtime. Medical Branch prasugreL 2021-09 Yes [id number] 10mg Take 1 [facility] 10 mg 0-11 tablet by ity of tablet 00:00: mouth in [place] the Medical morning. Branch Appointmen t needed. Please contact office. spironolact 2021-09 Yes [id number] 25mg Take 1 [facility] one 25 mg 0-11 tablet by ity o f tablet 00:00: mouth in [place] the Medical morning. Branch fluticasone 2021-09 Yes [id number] 1{spray Use 1-2 [facility] propionate 0-11 } Sprays in ity of 50 00:00: each [place] mcg/actuati 00 nostril in Me dical on nasal the Branch spray morning. Insulin 2021-09 Yes [id number] Use as [facility], 0-11 directed ity of Disposable, 00:00: to inject [place] (PEN 00 insulin Medical NEEDLE) 32 daily; Branch gauge x ICD-10 32" Ndle code E11.8 loratadine 2021-09 Yes [id number] 10mg Take 1 [facility] 10 mg 0-11 tablet by ity of tablet 00:00: mouth at [place] 00 bedtime. Medical Branch prasugreL 2021-09 Yes [id number] 10mg Take 1 [facility] 10 mg 0-11 tablet by ity of tablet 00:00: mouth in [place] the Medical morning. Branch Appointmen t needed. Please contact office. spironolact 2021-09 Yes [id number] 25mg Take 1 [facility] one 25 mg 0-11 tablet by ity o f tablet 00:00: mouth in [place] the Medical morning. Branch fluticasone 2021-09 Yes [id number] 1{spray Use 1-2 [facility] propionate 0-11 } Sprays in ity of 50 00:00: each [place] mcg/actuati 00 nostril in Me dical on nasal the Branch spray morning. Insulin 2021-09 Yes [id number] Use as [facility], 0-11 directed ity of Disposable, 00:00: to inject [place] (PEN 00 insulin Medical NEEDLE) 32 daily; Branch gauge x ICD-10 532" Ndle code E11.8 loratadine 2021-09 Yes [id number] 10mg Take 1 [facility] 10 mg 0-11 tablet by ity of tablet 00:00: mouth at [place] 00 bedtime. Medical Branch prasugreL 2021-09 Yes [id number] 10mg Take 1 [facility] 10 mg 0-11 tablet by ity of tablet 00:00: mouth in [place] the Medical morning. Branch Appointmen t needed. Please contact office. spironolact 2021-09 Yes [id number] 25mg Take 1 [facility] 25 mg 0-11 tablet by ity o f tablet 00:00: mouth in [place] the Medical morning. Branch fluticasone 2021-09 Yes [id number] 1{spray Use 1-2 [facility] propionate 0-11 } Sprays in ity of 50 00:00: each [place] mcg/actuati 00 nostril in Me dical on nasal the Branch spray morning. Insulin 2021-09 Yes [id number] Use as [facility], 0-11 directed ity of Disposable, 00:00: to inject [place] (PEN 00 insulin Medical NEEDLE) 32 daily; Branch gauge x ICD-10 5/32" Ndle code E11.8 loratadine 2021-09 Yes [id number] 10mg Take 1 [facility] 10 mg 0-11 tablet by ity of tablet 00:00: mouth at [place] 00 bedtime. Medical Branch prasugreL 2021-09 Yes [id number] 10mg Take 1 [facility] 10 mg 0-11 tablet by ity of tablet 00:00: mouth in [place] the Medical morning. Branch Appointmen t needed. Please contact office. spironolact 2021-09 Yes [id number] 25mg Take 1 [facility] one 25 mg 0-11 tablet by ity o f tablet 00:00: mouth in [place] 00 the Medical morning. Branch fluticasone 2021-09 Yes [id number] 1{spray Use 1-2 [facility] propionate 0-11 } Sprays in ity of 50 00:00: each [place] mcg/actuati 00 nostril in Me dical on nasal the Branch spray morning. Insulin 2021-09 Yes [id number] Use as [facility], 0-11 directed ity of Disposable, 00:00: to inject [place] (PEN 00 insulin Medical NEEDLE) 32 daily; Branch gauge x ICD-10 " Ndle code E11.8 loratadine 2021-09 Yes [id number] 10mg Take 1 [facility] 10 mg 0-11 tablet by ity of tablet 00:00: mouth at [place] 00 bedtime. Medical Branch prasugreL 2021-09 Yes [id number] 10mg Take 1 [facility] 10 mg 0-11 tablet by ity of tablet 00:00: mouth in [place] the Medical morning. Branch Appointmen t needed. Please contact office. spironolact 2021-09 Yes [id number] 25mg Take 1 [facility] 25 mg 0-11 tablet by ity o f tablet 00:00: mouth in [place] the Medical morning. Branch fluticasone 2021-09 Yes [id number] 1{spray Use 1-2 [facility] propionate 0-11 } Sprays in ity of 50 00:00: each [place] mcg/actuati 00 nostril in Me dical on nasal the Branch spray morning. Insulin 2021-09 Yes [id number] Use as [facility], 0-11 directed ity of Disposable, 00:00: to inject [place] (PEN 00 insulin Medical NEEDLE) 32 daily; Branch gauge x ICD-10 5/32" Ndle code E11.8 loratadine 2021-09 Yes [id number] 10mg Take 1 [facility] 10 mg 0-11 tablet by ity of tablet 00:00: mouth at [place] 00 bedtime. Medical Branch prasugreL 2021-09 Yes [id number] 10mg Take 1 [facility] 10 mg 0-11 tablet by ity of tablet 00:00: mouth in [place] the Medical morning. Branch Appointmen t needed. Please contact office. spironolact 2021-09 Yes [id number] 25mg Take 1 [facility] one 25 mg 0-11 tablet by ity o f tablet 00:00: mouth in [place] 00 the Medical morning. Branch fluticasone 2021-09 Yes [id number] 1{spray Use 1-2 [facility] propionate 0-11 } Sprays in ity of 50 00:00: each [place] mcg/actuati 00 nostril in Me dical on nasal the Branch spray morning. Insulin 2021-09 Yes [id number] Use as [facility], 0-11 directed ity of Disposable, 00:00: to inject [place] (PEN 00 insulin Medical NEEDLE) 32 daily; Branch gauge x ICD-10 5/32" Ndle code E11.8 loratadine 2021-09 Yes [id number] 10mg Take 1 [facility] 10 mg 0-11 tablet by ity of tablet 00:00: mouth at [place] 00 bedtime. Medical Branch prasugreL 2021-09 Yes [id number] 10mg Take 1 [facility] 10 mg 0-11 tablet by ity of tablet 00:00: mouth in [place] the Medical morning. Branch Appointmen t needed. Please contact office. spironolact 2021-09 Yes [id number] 25mg Take 1 [facility] one 25 mg 0-11 tablet by ity o f tablet 00:00: mouth in [place] 00 the Medical morning. Branch fluticasone 2021-09 Yes [id number] 1{spray Use 1-2 [facility] propionate 0-11 } Sprays in ity of 50 00:00: each [place] mcg/actuati 00 nostril in Me dical on nasal the Branch spray morning. Insulin 2021-09 Yes [id number] Use as [facility], 0-11 directed ity of Disposable, 00:00: to inject [place] (PEN 00 insulin Medical NEEDLE) 32 daily; Branch gauge x ICD-10 5/32" Ndle code E11.8 loratadine 2021-09 Yes [id number] 10mg Take 1 [facility] 10 mg 0-11 tablet by ity of tablet 00:00: mouth at [place] 00 bedtime. Medical Branch prasugreL 2021-09 Yes [id number] 10mg Take 1 [facility] 10 mg 0-11 tablet by ity of tablet 00:00: mouth in [place] 00 the Medical morning. Branch Appointmen t needed. Please contact office. spironolact 2021-09 Yes [id number] 25mg Take 1 [facility] one 25 mg 0-11 tablet by ity o f tablet 00:00: mouth in [place] 00 the Medical morning. Branch fluticasone 2021-09 Yes [id number] 1{spray Use 1-2 [facility] propionate 0-11 } Sprays in ity of 50 00:00: each [place] mcg/actuati 00 nostril in Me dical on nasal the Branch spray morning. Insulin 2021-09 Yes [id number] Use as [facility], 0-11 directed ity of Disposable, 00:00: to inject [place] (PEN 00 insulin Medical NEEDLE) 32 daily; Branch gauge x ICD-10 5/32" Ndle code E11.8 loratadine 2021-09 Yes [id number] 10mg Take 1 [facility] 10 mg 0-11 tablet by ity of tablet 00:00: mouth at [place] 00 bedtime. Medical Branch prasugreL 2021-09 Yes [id number] 10mg Take 1 [facility] 10 mg 0-11 tablet by ity of tablet 00:00: mouth in [place] the Medical morning. Branch Appointmen t needed. Please contact office. spironolact 2021-09 Yes [id number] 25mg Take 1 [facility] 25 mg 0-11 tablet by ity o f tablet 00:00: mouth in [place] 00 the Medical morning. Branch fluticasone 2021-09 Yes [id number] 1{spray Use 1-2 [facility] propionate 0-11 } Sprays in ity of 50 00:00: each [place] mcg/actuati 00 nostril in Me dical on nasal the Branch spray morning. Insulin 2021-09 Yes [id number] Use as [facility], 0-11 directed ity of Disposable, 00:00: to inject [place] (PEN 00 insulin Medical NEEDLE) 32 daily; Branch gauge x ICD-10 5/32" Ndle code E11.8 loratadine 2021-09 Yes [id number] 10mg Take 1 [facility] 10 mg 0-11 tablet by ity of tablet 00:00: mouth at [place] 00 bedtime. Medical Branch prasugreL 2021-09 Yes [id number] 10mg Take 1 [facility] 10 mg 0-11 tablet by ity of tablet 00:00: mouth in [place] the Medical morning. Branch Appointmen t needed. Please contact office. spironolact 2021-09 Yes [id number] 25mg Take 1 [facility] one 25 mg 0-11 tablet by ity o f tablet 00:00: mouth in [place] the Medical morning. Branch fluticasone 2021-09 Yes [id number] 1{spray Use 1-2 [facility] propionate 0-11 } Sprays in ity of 50 00:00: each [place] mcg/actuati 00 nostril in Me dical on nasal the Branch spray morning. Insulin 2021-09 Yes [id number] Use as [facility], 0-11 directed ity of Disposable, 00:00: to inject [place] (PEN 00 insulin Medical NEEDLE) 32 daily; Branch gauge x ICD-10 5/32" Ndle code E11.8 loratadine 2021-09 Yes [id number] 10mg Take 1 [facility] 10 mg 0-11 tablet by ity of tablet 00:00: mouth at [place] 00 bedtime. Medical Branch prasugreL 2021-09 Yes [id number] 10mg Take 1 [facility] 10 mg 0-11 tablet by ity of tablet 00:00: mouth in [place] the Medical morning. Branch Appointmen t needed. Please contact office. spironolact 2021-09 Yes [id number] 25mg Take 1 [facility] one 25 mg 0-11 tablet by ity o f tablet 00:00: mouth in [place] the Medical morning. Branch fluticasone 2021-09 Yes [id number] 1{spray Use 1-2 [facility] propionate 0-11 } Sprays in ity of 50 00:00: each [place] mcg/actuati 00 nostril in Me dical on nasal the Branch spray morning. Insulin 2021-09 Yes [id number] Use as [facility], 0-11 directed ity of Disposable, 00:00: to inject [place] (PEN 00 insulin Medical NEEDLE) 32 daily; Branch gauge x ICD-10 5/32" Ndle code E11.8 loratadine 2021-09 Yes [id number] 10mg Take 1 [facility] 10 mg 0-11 tablet by ity of tablet 00:00: mouth at [place] 00 bedtime. Medical Branch prasugreL 2021-09 Yes [id number] 10mg Take 1 [facility] 10 mg 0-11 tablet by ity of tablet 00:00: mouth in [place] the Medical morning. Branch Appointmen t needed. Please contact office. spironolact 2021-09 Yes [id number] 25mg Take 1 [facility] one 25 mg 0-11 tablet by ity o f tablet 00:00: mouth in [place] the Medical morning. Branch fluticasone 2021-09 Yes [id number] 1{spray Use 1-2 [facility] propionate 0-11 } Sprays in ity of 50 00:00: each [place] mcg/actuati 00 nostril in Me dical on nasal the Branch spray morning. Insulin 2021-09 Yes [id number] Use as [facility], 0-11 directed ity of Disposable, 00:00: to inject [place] (PEN 00 insulin Medical NEEDLE) 32 daily; Branch gauge x ICD-10 5/32" Ndle code E11.8 loratadine 2021-09 Yes [id number] 10mg Take 1 [facility] 10 mg 0-11 tablet by ity of tablet 00:00: mouth at [place] 00 bedtime. Medical Branch prasugreL 2021-09 Yes [id number] 10mg Take 1 [facility] 10 mg 0-11 tablet by ity of tablet 00:00: mouth in [place] the Medical morning. Branch Appointmen t needed. Please contact office. spironolact 2021-09 Yes [id number] 25mg Take 1 [facility] one 25 mg 0-11 tablet by ity o f tablet 00:00: mouth in [place] the Medical morning. Branch fluticasone 2021-09 Yes [id number] 1{spray Use 1-2 [facility] propionate 0-11 } Sprays in ity of 50 00:00: each [place] mcg/actuati 00 nostril in Me dical on nasal the Branch spray morning. Insulin 2021-09 Yes [id number] Use as [facility], 0-11 directed ity of Disposable, 00:00: to inject [place] (PEN 00 insulin Medical NEEDLE) 32 daily; Branch gauge x ICD-10 5/32" Ndle code E11.8 loratadine 2021-09 Yes [id number] 10mg Take 1 [facility] 10 mg 0-11 tablet by ity of tablet 00:00: mouth at [place] 00 bedtime. Medical Branch prasugreL 2021-09 Yes [id number] 10mg Take 1 [facility] [place] 10 mg 0-11 tablet by ity of tablet 00:00: mouth in [place] the Medical morning. Branch Appointmen t needed. Please contact office. spironolact 2021-09 Yes [id number] 25mg Take 1 [facility] one 25 mg 0-11 tablet by ity o f tablet 00:00: mouth in [place] the Medical morning. Branch fluticasone 2021-09 Yes [id number] 1{spray Use 1-2 [facility] propionate 0-11 } Sprays in ity of 50 00:00: each [place] mcg/actuati 00 nostril in Me dical on nasal the Branch spray morning. Insulin 2021-09 Yes [id number] Use as [facility], 0-11 directed ity of Disposable, 00:00: to inject [place] (PEN 00 insulin Medical NEEDLE) 32 daily; Branch gauge x ICD-10 32" Ndle code E11.8 loratadine 2021-09 Yes [id number] 10mg Take 1 [facility] 10 mg 0-11 tablet by ity of tablet 00:00: mouth at [place] 00 bedtime. Medical Branch prasugreL 2021-09 Yes [id number] 10mg Take 1 [facility] 10 mg 0-11 tablet by ity of tablet 00:00: mouth in [place] the Medical morning. Branch Appointmen t needed. Please contact office. spironolact 2021-09 Yes [id number] 25mg Take 1 [facility] one 25 mg 0-11 tablet by ity o f tablet 00:00: mouth in [place] the Medical morning. Branch fluticasone 2021-09 Yes [id number] 1{spray Use 1-2 [facility] propionate 0-11 } Sprays in ity of 50 00:00: each [place] mcg/actuati 00 nostril in Me dical on nasal the Branch spray morning. Insulin 2021-09 Yes [id number] Use as [facility], 0-11 directed ity of Disposable, 00:00: to inject [place] (PEN 00 insulin Medical NEEDLE) 32 daily; Branch gauge x ICD-10 " Ndle code E11.8 loratadine 2021-09 Yes [id number] 10mg Take 1 [facility] 10 mg 0-11 tablet by ity of tablet 00:00: mouth at [place] 00 bedtime. Medical Branch prasugreL 2021-09 Yes [id number] 10mg Take 1 [facility] [place] 10 mg 0-11 tablet by ity of tablet 00:00: mouth in [place] the Medical morning. Branch Appointmen t needed. Please contact office. spironolact 2021-09 Yes [id number] 25mg Take 1 [facility] one 25 mg 0-11 tablet by ity o f tablet 00:00: mouth in [place] 00 the Medical morning. Branch fluticasone 2021-09 Yes [id number] 1{spray Use 1-2 [facility] propionate 0-11 } Sprays in ity of 50 00:00: each [place] mcg/actuati 00 nostril in Me dical on nasal the Branch spray morning. Insulin 2021-09 Yes [id number] Use as [facility], 0-11 directed ity of Disposable, 00:00: to inject [place] (PEN 00 insulin Medical NEEDLE) 32 daily; Branch gauge x ICD-10 " Ndle code E11.8 loratadine 2021-09 Yes [id number] 10mg Take 1 [facility] 10 mg 0-11 tablet by ity of tablet 00:00: mouth at [place] 00 bedtime. Medical Branch prasugreL 2021-09 Yes [id number] 10mg Take 1 [facility] 10 mg 0-11 tablet by ity of tablet 00:00: mouth in [place] the Medical morning. Branch Appointmen t needed. Please contact office. spironolact 2021-09 Yes [id number] 25mg Take 1 [facility] one 25 mg 0-11 tablet by ity o f tablet 00:00: mouth in [place] 00 the Medical morning. Branch fluticasone 2021-09 Yes [id number] 1{spray Use 1-2 [facility] propionate 0-11 } Sprays in ity of 50 00:00: each [place] mcg/actuati 00 nostril in Me dical on nasal the Branch spray morning. Insulin 2021-09 Yes [id number] Use as [facility], 0-11 directed ity of Disposable, 00:00: to inject [place] (PEN 00 insulin Medical NEEDLE) 32 daily; Branch gauge x ICD-10 " Ndle code E11.8 loratadine 2021-09 Yes [id number] 10mg Take 1 [facility] 10 mg 0-11 tablet by ity of tablet 00:00: mouth at [place] 00 bedtime. Medical Branch prasugreL 2021-09 Yes [id number] 10mg Take 1 [facility] [place] 10 mg 0-11 tablet by ity of tablet 00:00: mouth in [place] the Medical morning. Branch Appointmen t needed. Please contact office. spironolact 2021-09 Yes [id number] 25mg Take 1 [facility] one 25 mg 0-11 tablet by ity o f tablet 00:00: mouth in [place] the Medical morning. Branch fluticasone 2021-09 Yes [id number] 1{spray Use 1-2 [facility] propionate 0-11 } Sprays in ity of 50 00:00: each [place] mcg/actuati 00 nostril in Me dical on nasal the Branch spray morning. Insulin 2021-09 Yes [id number] Use as [facility], 0-11 directed ity of Disposable, 00:00: to inject [place] (PEN 00 insulin Medical NEEDLE) 32 daily; Branch gauge x ICD-10 " Ndle code E11.8 loratadine 2021-09 Yes [id number] 10mg Take 1 [facility] 10 mg 0-11 tablet by ity of tablet 00:00: mouth at [place] 00 bedtime. Medical Branch prasugreL 2021-09 Yes [id number] 10mg Take 1 [facility] [place] 10 mg 0-11 tablet by ity of tablet 00:00: mouth in [place] 00 the Medical morning. Branch Appointmen t needed. Please contact office. spironolact 2021-09 Yes [id number] 25mg Take 1 [facility] one 25 mg 0-11 tablet by ity o f tablet 00:00: mouth in [place] 00 the Medical morning. Branch fluticasone 2021-09 Yes [id number] 1{spray Use 1-2 [facility] propionate 0-11 } Sprays in ity of 50 00:00: each [place] mcg/actuati 00 nostril in Me dical on nasal the Branch spray morning. Insulin 2021-09 Yes [id number] Use as [facility], 0-11 directed ity of Disposable, 00:00: to inject [place] (PEN 00 insulin Medical NEEDLE) 32 daily; Branch gauge x ICD-10 " Ndle code E11.8 loratadine 2021-09 Yes [id number] 10mg Take 1 [facility] 10 mg 0-11 tablet by ity of tablet 00:00: mouth at [place] 00 bedtime. Medical Branch prasugreL 2021-09 Yes [id number] 10mg Take 1 [facility] [place] 10 mg 0-11 tablet by ity of tablet 00:00: mouth in [place] the Medical morning. Branch Appointmen t needed. Please contact office. spironolact 2021-09 Yes [id number] 25mg Take 1 [facility] one 25 mg 0-11 tablet by ity o f tablet 00:00: mouth in [place] the Medical morning. Branch fluticasone 2021-09 Yes [id number] 1{spray Use 1-2 [facility] propionate 0-11 } Sprays in ity of 50 00:00: each [place] mcg/actuati 00 nostril in Me dical on nasal the Branch spray morning. Insulin 2021-09 Yes [id number] Use as [facility], 0-11 directed ity of Disposable, 00:00: to inject [place] (PEN 00 insulin Medical NEEDLE) 32 daily; Branch gauge x ICD-10 " Ndle code E11.8 loratadine 2021-09 Yes [id number] 10mg Take 1 [facility] 10 mg 0-11 tablet by ity of tablet 00:00: mouth at [place] 00 bedtime. Medical Branch prasugreL 2021-09 Yes [id number] 10mg Take 1 [facility] [place] 10 mg 0-11 tablet by ity of tablet 00:00: mouth in [place] 00 the Medical morning. Branch Appointmen t needed. Please contact office. spironolact 2021-09 Yes [id number] 25mg Take 1 [facility] one 25 mg 0-11 tablet by ity o f tablet 00:00: mouth in [place] 00 the Medical morning. Branch fluticasone 2021-09 Yes [id number] 1{spray Use 1-2 [facility] propionate 0-11 } Sprays in ity of 50 00:00: each [place] mcg/actuati 00 nostril in Me dical on nasal the Branch spray morning. Insulin 2021-09 Yes [id number] Use as [facility], 0-11 directed ity of Disposable, 00:00: to inject [place] (PEN 00 insulin Medical NEEDLE) 32 daily; Branch gauge x ICD-10 5/32" Ndle code E11.8 loratadine 2021-09 Yes [id number] 10mg Take 1 [facility] 10 mg 0-11 tablet by ity of tablet 00:00: mouth at [place] 00 bedtime. Medical Branch prasugreL 2021-09 Yes [id number] 10mg Take 1 [facility] 10 mg 0-11 tablet by ity of tablet 00:00: mouth in [place] the Medical morning. Branch Appointmen t needed. Please contact office. spironolact 2021-09 Yes [id number] 25mg Take 1 [facility] one 25 mg 0-11 tablet by ity o f tablet 00:00: mouth in [place] the Medical morning. Branch fluticasone 2021-09 Yes [id number] 1{spray Use 1-2 [facility] propionate 0-11 } Sprays in ity of 50 00:00: each [place] mcg/actuati 00 nostril in Me dical on nasal the Branch spray morning. Insulin 2021-09 Yes [id number] Use as [facility], 0-11 directed ity of Disposable, 00:00: to inject [place] (PEN 00 insulin Medical NEEDLE) 32 daily; Branch gauge x ICD-10 532" Ndle code E11.8 loratadine 2021-09 Yes [id number] 10mg Take 1 [facility] 10 mg 0-11 tablet by ity of tablet 00:00: mouth at [place] 00 bedtime. Medical Branch prasugreL 2021-09 Yes [id number] 10mg Take 1 [facility] [place] 10 mg 0-11 tablet by ity of tablet 00:00: mouth in [place] 00 the Medical morning. Branch Appointmen t needed. Please contact office. spironolact 2021-09 Yes [id number] 25mg Take 1 [facility] one 25 mg 0-11 tablet by ity o f tablet 00:00: mouth in [place] 00 the Medical morning. Branch fluticasone 2021-09 Yes [id number] 1{spray Use 1-2 [facility] propionate 0-11 } Sprays in ity of 50 00:00: each [place] mcg/actuati 00 nostril in Me dical on nasal the Branch spray morning. Insulin 2021-09 Yes [id number] Use as [facility], 0-11 directed ity of Disposable, 00:00: to inject [place] (PEN 00 insulin Medical NEEDLE) 32 daily; Branch gauge x ICD-10 5/32" Ndle code E11.8 loratadine 2021-09 Yes [id number] 10mg Take 1 [facility] 10 mg 0-11 tablet by ity of tablet 00:00: mouth at [place] 00 bedtime. Medical Branch prasugreL 2021-09 Yes [id number] 10mg Take 1 [facility] [place] 10 mg 0-11 tablet by ity of tablet 00:00: mouth in [place] the Medical morning. Branch Appointmen t needed. Please contact office. spironolact 2021-09 Yes [id number] 25mg Take 1 [facility] one 25 mg 0-11 tablet by ity o f tablet 00:00: mouth in [place] the Medical morning. Branch fluticasone 2021-09 Yes [id number] 1{spray Use 1-2 [facility] propionate 0-11 } Sprays in ity of 50 00:00: each [place] mcg/actuati 00 nostril in Me dical on nasal the Branch spray morning. Insulin 2021-09 Yes [id number] Use as [facility], 0-11 directed ity of Disposable, 00:00: to inject [place] (PEN 00 insulin Medical NEEDLE) 32 daily; Branch gauge x ICD-10 532" Ndle code E11.8 loratadine 2021-09 Yes [id number] 10mg Take 1 [facility] 10 mg 0-11 tablet by ity of tablet 00:00: mouth at [place] 00 bedtime. Medical Branch prasugreL 2021-09 Yes [id number] 10mg Take 1 [facility] [place] 10 mg 0-11 tablet by ity of tablet 00:00: mouth in [place] the Medical morning. Branch Appointmen t needed. Please contact office. spironolact 2021-09 Yes [id number] 25mg Take 1 [facility] one 25 mg 0-11 tablet by ity o f tablet 00:00: mouth in [place] the Medical morning. Branch fluticasone 2021-09 Yes [id number] 1{spray Use 1-2 [facility] propionate 0-11 } Sprays in ity of 50 00:00: each [place] mcg/actuati 00 nostril in Me dical on nasal the Branch spray morning. Insulin 2021-09 Yes [id number] Use as [facility], 0-11 directed ity of Disposable, 00:00: to inject [place] (PEN 00 insulin Medical NEEDLE) 32 daily; Branch gauge x ICD-10 " Ndle code E11.8 loratadine 2021-09 Yes [id number] 10mg Take 1 [facility] 10 mg 0-11 tablet by ity of tablet 00:00: mouth at [place] [address] bedtime. Medical Branch prasugreL 2021-09 Yes [id number] 10mg Take 1 [facility] 10 mg 0-11 tablet by ity of tablet 00:00: mouth in [place] the Medical morning. Branch Appointmen t needed. Please contact office. spironolact 2021-09 Yes [id number] 25mg Take 1 [facility] one 25 mg 0-11 tablet by ity o f tablet 00:00: mouth in [place] the Medical morning. Branch fluticasone 2021-09 Yes [id number] 1{spray Use 1-2 [facility] propionate 0-11 } Sprays in ity of 50 00:00: each [place] mcg/actuati 00 nostril in Me dical on nasal the Branch spray morning. Insulin 2021-09 Yes [id number] Use as [facility], 0-11 directed ity of Disposable, 00:00: to inject [place] (PEN 00 insulin Medical NEEDLE) 32 daily; Branch gauge x ICD-10 32" Ndle code E11.8 loratadine 2021-09 Yes [id number] 10mg Take 1 [facility] 10 mg 0-11 tablet by ity of tablet 00:00: mouth at [place] [address] bedtime. Medical Branch prasugreL 2021-09 Yes [id number] 10mg Take 1 [facility] 10 mg 0-11 tablet by ity of tablet 00:00: mouth in [place] the Medical morning. Branch Appointmen t needed. Please contact office. spironolact 2021-09 Yes [id number] 25mg Take 1 [facility] one 25 mg 0-11 tablet by ity o f tablet 00:00: mouth in [place] the Medical morning. Branch fluticasone 2021-09 Yes [id number] 1{spray Use 1-2 [facility] propionate 0-11 } Sprays in ity of 50 00:00: each [place] mcg/actuati 00 nostril in Me dical on nasal the Branch spray morning. Insulin 2021-09 Yes [id number] Use as [facility], 0-11 directed ity of Disposable, 00:00: to inject [place] (PEN 00 insulin Medical NEEDLE) 32 daily; Branch gauge x ICD-10 " Ndle code E11.8 loratadine 2021-09 Yes [id number] 10mg Take 1 [facility] 10 mg 0-11 tablet by ity of tablet 00:00: mouth at [place] 00 bedtime. Medical Branch prasugreL 2021-09 Yes [id number] 10mg Take 1 [facility] 10 mg 0-11 tablet by ity of tablet 00:00: mouth in [place] the Medical morning. Branch Appointmen t needed. Please contact office. spironolact 2021-09 Yes [id number] 25mg Take 1 [facility] one 25 mg 0-11 tablet by ity o f tablet 00:00: mouth in [place] the Medical morning. Branch fluticasone 2021-09 Yes [id number] 1{spray Use 1-2 [facility] propionate 0-11 } Sprays in ity of 50 00:00: each [place] mcg/actuati 00 nostril in [place] on nasal the Branch spray morning. Insulin 2021-09 Yes [id number] [facility], 0-11 directed [facility] Dis[facility], 00:00: to inject [place] (PEN 00 insulin Medical NEEDLE) 32 daily; Branch gauge x ICD-10 " Ndle code E11.8 loratadine 2021-09 Yes [id number] 10mg Take 1 [facility] 10 mg 0-11 tablet by [facility] of tablet 00:00: mouth at [place] 00 bedtime. Medical Branch prasugreL 2021-09 Yes [id number] 10mg Take 1 [facility] 10 mg 0-11 tablet by ity of tablet 00:00: mouth in [place] the Medical morning. Branch Appointmen t needed. Please contact office. spironolact 2021-09 Yes [id number] 25mg Take 1 [facility] 25 mg 0-11 tablet by ity o f tablet 00:00: mouth in [place] 00 the Medical morning. Branch fluticasone 2021-09 Yes [id number] 1{spray Use 1-2 [facility] propionate 0-11 } Sprays in ity of 50 00:00: each [place] mcg/actuati 00 nostril in [facility] dical on nasal the Branch spray morning. Insulin 2021-09 Yes [id number] Use as [facility], 0-11 directed [facility] of Disposable, 00:00: to inject [place] (PEN 00 insulin Medical NEEDLE) 32 daily; Branch gauge x ICD-10 " Ndle code E11.8 loratadine 2021-09 Yes [id number] 10mg Take 1 [facility] 10 mg 0-11 tablet by [facility]y of tablet 00:00: mouth at [place] 00 bedtime. Medical Branch prasugreL 2021-09 Yes [id number] 10mg Take 1 [facility] 10 mg 0-11 tablet by it[facility] of tablet 00:00: mouth in [place] the Medical morning. Branch Appointmen t needed. Please contact office. spironolact 2021-09 Yes [id number] 25mg Take 1 [facility] one 25 mg 0-11 tablet by ity o f tablet 00:00: mouth in [place] the Medical morning. Branch fluticasone 2021-09 Yes [id number] 1{spray Use 1-2 [facility] propionate 0-11 } Sprays in ity of 50 00:00: each [place] mcg/actuati 00 nostril in [facility] d[facility] on nasal the Branch spray morning. Insulin 2021-09 Yes [id number] Use as [facility], 0-11 directed [facility] of Disposable, 00:00: to inject [place] (PEN 00 insulin Medical NEEDLE) 32 daily; Branch gauge x ICD-10 " Ndle code E11.8 loratadine 2021-09 Yes [id number] 10mg Take 1 [facility] 10 mg 0-11 tablet by [facility]y of tablet 00:00: mouth at [place] 00 bedtime. Medical Branch prasugreL 2021-09 Yes [id number] 10mg Take 1 [facility] 10 mg 0-11 tablet by ity of tablet 00:00: mouth in [place] the Medical morning. Branch Appointmen t needed. Please contact office. spironolact 2021-09 Yes [id number] 25mg Take 1 [facility] 25 mg 0-11 tablet by ity o f tablet 00:00: mouth in [place] the Medical morning. Branch fluticasone 2021-09 Yes [id number] 1{spray Use 1-2 [facility] propionate 0-11 } Sprays in ity of 50 00:00: each [place] mcg/actuati 00 nostril in [facility] dical on nasal the Branch spray morning. Insulin 2021-09 Yes [id number] Use as [facility], 0-11 directed [facility] of Disposable, 00:00: to inject [place] (PEN 00 insulin Medical NEEDLE) 32 daily; Branch gauge x ICD-10 " Ndle code E11.8 loratadine 2021-09 Yes [id number] 10mg Take 1 [facility] 10 mg 0-11 tablet by ity of tablet 00:00: mouth at [place] [address] bedtime. Medical Branch prasugreL 2021-09 Yes [id number] 10mg Take 1 [facility] 10 mg 0-11 tablet by ity of tablet 00:00: mouth in [place] the Medical morning. Branch Appointmen t needed. Please contact office. spironolact 2021-09 Yes [id number] 25mg Take 1 [facility] one 25 mg 0-11 tablet by ity o f tablet 00:00: mouth in [place] the Medical morning. Branch fluticasone 2021-09 Yes [id number] 1{spray Use 1-2 [facility] propionate 0-11 } Sprays in ity of 50 00:00: each [place] mcg/actuati 00 nostril in [facility] dical on nasal the Branch spray morning. Insulin 2021-09 Yes [id number] Use as [facility], 0-11 directed [facility] of Disposable, 00:00: to inject [place] (PEN 00 insulin Medical NEEDLE) 32 daily; Branch gauge x ICD-10 " Ndle code E11.8 loratadine 2021-09 Yes [id number] 10mg Take 1 [facility] 10 mg 0-11 tablet by ity of tablet 00:00: mouth at [place] 00 bedtime. Medical Branch prasugreL 2021-09 Yes [id number] 10mg Take 1 [facility] 10 mg 0-11 tablet by ity of tablet 00:00: mouth in [place] the Medical morning. Branch Appointmen t needed. Please contact office. spironolact 2021-09 Yes [id number] 25mg Take 1 [facility] 25 mg 0-11 tablet by ity o f tablet 00:00: mouth in [place] 00 the Medical morning. Branch fluticasone 2021-09 Yes [id number] 1{spray Use 1-2 [facility] propionate 0-11 } Sprays in ity of 50 00:00: each [place] mcg/actuati 00 nostril in Me dical on nasal the Branch spray morning. Insulin 2021-09 Yes [id number] Use as [facility], 0-11 directed [facility] of Disposable, 00:00: to inject [place] (PEN 00 insulin Medical NEEDLE) 32 daily; Branch gauge x ICD-10 " Ndle code E11.8 loratadine 2021-09 Yes [id number] 10mg Take 1 [facility] 10 mg 0-11 tablet by ity of tablet 00:00: mouth at [place] [address] bedtime. Medical Branch prasugreL 2021-09 Yes [id number] 10mg Take 1 [facility] 10 mg 0-11 tablet by ity of tablet 00:00: mouth in [place] the Medical morning. Branch Appointmen t needed. Please contact office. spironolact 2021-09 Yes [id number] 25mg Take 1 [facility] one 25 mg 0-11 tablet by ity o f tablet 00:00: mouth in [place] the Medical morning. Branch fluticasone 2021-09 Yes [id number] 1{spray Use 1-2 [facility] propionate 0-11 } Sprays in ity of 50 00:00: each [place] mcg/actuati 00 nostril in Me dical on nasal the Branch spray morning. Insulin 2021-09 Yes [id number] Use as [facility], 0-11 directed [facility] of Disposable, 00:00: to inject [place] (PEN 00 insulin Medical NEEDLE) 32 daily; Branch gauge x ICD-10 " Ndle code E11.8 loratadine 2021-09 Yes [id number] 10mg Take 1 [facility] 10 mg 0-11 tablet by ity of tablet 00:00: mouth at [place] [address] bedtime. Medical Branch prasugreL 2021-09 Yes [id number] 10mg Take 1 [facility] 10 mg 0-11 tablet by ity of tablet 00:00: mouth in [place] the Medical morning. Branch Appointmen t needed. Please contact office. spironolact 2021-09 Yes [id number] 25mg Take 1 [facility] 25 mg 0-11 tablet by ity o f tablet 00:00: mouth in [place] 00 the Medical morning. Branch fluticasone 2021-09 Yes [id number] 1{spray Use 1-2 [facility] propionate 0-11 } Sprays in ity of 50 00:00: each [place] mcg/actuati 00 nostril in Me dical on nasal the Branch spray morning. Insulin 2021-09 Yes [id number] Use as [facility], 0-11 directed [facility] of Disposable, 00:00: to inject [place] (PEN 00 insulin Medical NEEDLE) 32 daily; Branch gauge x ICD-10 " Ndle code E11.8 loratadine 2021-09 Yes [id number] 10mg Take 1 [facility] 10 mg 0-11 tablet by ity of tablet 00:00: mouth at [place] 00 bedtime. Medical Branch prasugreL 2021-09 Yes [id number] 10mg Take 1 [facility] 10 mg 0-11 tablet by ity of tablet 00:00: mouth in [place] the Medical morning. Branch Appointmen t needed. Please contact office. spironolact 2021-09 Yes [id number] 25mg Take 1 [facility] one 25 mg 0-11 tablet by ity o f tablet 00:00: mouth in [place] the Medical morning. Branch fluticasone 2021-09 Yes [id number] 1{spray Use 1-2 [facility] propionate 0-11 } Sprays in ity of 50 00:00: each [place] mcg/actuati 00 nostril in [facility] d[facility] on nasal the Branch spray morning. Insulin 2021-09 Yes [id number] Use as [facility], 0-11 directed [facility] of Disposable, 00:00: to inject [place] (PEN 00 insulin Medical NEEDLE) 32 daily; Branch gauge x ICD-10 " Ndle code E11.8 loratadine 2021-09 Yes [id number] 10mg Take 1 [facility] 10 mg 0-11 tablet by ity of tablet 00:00: mouth at [place] 00 bedtime. Medical Branch prasugreL 2021-09 Yes [id number] 10mg Take 1 [facility] 10 mg 0-11 tablet by ity of tablet 00:00: mouth in [place] 00 the Medical morning. Branch Appointmen t needed. Please contact office. spironolact 2021-09 Yes [id number] 25mg Take 1 [facility] one 25 mg 0-11 tablet by ity o f tablet 00:00: mouth in [place] the Medical morning. Branch fluticasone 2021-09 Yes [id number] 1{spray Use 1-2 [facility] propionate 0-11 } Sprays in ity of 50 00:00: each [place] mcg/actuati 00 nostril in [facility] dical on nasal the Branch spray morning. Insulin 2021-09 Yes [id number] Use as [facility], 0-11 directed [facility] of Disposable, 00:00: to inject [place] (PEN 00 insulin Medical NEEDLE) 32 daily; Branch gauge x ICD-10 " Ndle code E11.8 loratadine 2021-09 Yes [id number] 10mg Take 1 [facility] 10 mg 0-11 tablet by ity of tablet 00:00: mouth at [place] [address] bedtime. Medical Branch prasugreL 2021-09 Yes [id number] 10mg Take 1 [facility] 10 mg 0-11 tablet by ity of tablet 00:00: mouth in [place] the Medical morning. Branch Appointmen t needed. Please contact office. spironolact 2021-09 Yes [id number] 25mg Take 1 [facility] one 25 mg 0-11 tablet by ity o f tablet 00:00: mouth in [place] the Medical morning. Branch fluticasone 2021-09 Yes [id number] 1{spray Use 1-2 [facility] propionate 0-11 } Sprays in ity of 50 00:00: each [place] mcg/actuati 00 nostril in [facility] dical on nasal the Branch spray morning. Insulin 2021-09 Yes [id number] Use as [facility], 0-11 directed [facility] of Disposable, 00:00: to inject [place] (PEN 00 insulin Medical NEEDLE) 32 daily; Branch gauge x ICD-10 " Ndle code E11.8 loratadine 2021-09 Yes [id number] 10mg Take 1 [facility] 10 mg 0-11 tablet by ity of tablet 00:00: mouth at [place] [address] bedtime. Medical Branch prasugreL 2021-09 Yes [id number] 10mg Take 1 [facility] 10 mg 0-11 tablet by ity of tablet 00:00: mouth in [place] the Medical morning. Branch Appointmen t needed. Please contact office. spironolact 2021-09 Yes [id number] 25mg Take 1 [facility] one 25 mg 0-11 tablet by ity o f tablet 00:00: mouth in [place] the Medical morning. Branch fluticasone 2021-09 Yes [id number] 1{spray Use 1-2 [facility] propionate 0-11 } Sprays in ity of 50 00:00: each [place] mcg/actuati 00 nostril in Me dical on nasal the Branch spray morning. Insulin 2021-09 Yes [id number] Use as [facility], 0-11 directed [facility]y of Disposable, 00:00: to inject [place] (PEN 00 insulin Medical NEEDLE) 32 daily; Branch gauge x ICD-10 " Ndle code E11.8 loratadine 2021-09 Yes [id number] 10mg Take 1 [facility] 10 mg 0-11 tablet by ity of tablet 00:00: mouth at [place] [address] bedtime. Medical Branch prasugreL 2021-09 Yes [id number] 10mg Take 1 [facility] 10 mg 0-11 tablet by ity of tablet 00:00: mouth in [place] the Medical morning. Branch Appointmen t needed. Please contact office. spironolact 2021-09 Yes [id number] 25mg Take 1 [facility] one 25 mg 0-11 tablet by ity o f tablet 00:00: mouth in [place] the Medical morning. Branch fluticasone 2021-09 Yes [id number] 1{spray Use 1-2 [facility] propionate 0-11 } Sprays in ity of 50 00:00: each [place] mcg/actuati 00 nostril in Me dical on nasal the Branch spray morning. Insulin 2021-09 Yes [id number] Use as [facility], 0-11 directed [facility] of Disposable, 00:00: to inject [place] (PEN 00 insulin Medical NEEDLE) 32 daily; Branch gauge x ICD-10 " Ndle code E11.8 loratadine 2021-09 Yes [id number] 10mg Take 1 [facility] 10 mg 0-11 tablet by ity of tablet 00:00: mouth at [place] [address] bedtime. Medical Branch prasugreL 2021-09 Yes [id number] 10mg Take 1 [facility] 10 mg 0-11 tablet by ity of tablet 00:00: mouth in [place] the Medical morning. Branch Appointmen t needed. Please contact office. spironolact 2021-09 Yes [id number] 25mg Take 1 [facility] one 25 mg 0-11 tablet by ity o f tablet 00:00: mouth in [place] 00 the Medical morning. Branch fluticasone 2021-09 Yes [id number] 1{spray Use 1-2 [facility] propionate 0-11 } Sprays in ity of 50 00:00: each [place] mcg/actuati 00 nostril in Me dical on nasal the Branch spray morning. Insulin 2021-09 Yes [id number] Use as [facility], 0-11 directed [facility]y of Disposable, 00:00: to inject [place] (PEN 00 insulin Medical NEEDLE) 32 daily; Branch gauge x ICD-10 " Ndle code E11.8 loratadine 2021-09 Yes [id number] 10mg Take 1 [facility] 10 mg 0-11 tablet by ity of tablet 00:00: mouth at [place] [address] bedtime. Medical Branch prasugreL 2021-09 Yes [id number] 10mg Take 1 [facility] 10 mg 0-11 tablet by ity of tablet 00:00: mouth in [place] the Medical morning. Branch Appointmen t needed. Please contact office. spironolact 2021-09 Yes [id number] 25mg Take 1 [facility] one 25 mg 0-11 tablet by ity o f tablet 00:00: mouth in [place] the Medical morning. Branch fluticasone 2021-09 Yes [id number] 1{spray Use 1-2 [facility] propionate 0-11 } Sprays in ity of 50 00:00: each [place] mcg/actuati 00 nostril in Me dical on nasal the Branch spray morning. Insulin 2021-09 Yes [id number] Use as [facility], 0-11 directed ity of Disposable, 00:00: to inject [place] (PEN 00 insulin Medical NEEDLE) 32 daily; Branch gauge x ICD-10 " Ndle code E11.8 loratadine 2021-09 Yes [id number] 10mg Take 1 [facility] 10 mg 0-11 tablet by ity of tablet 00:00: mouth at [place] [address] bedtime. Medical Branch prasugreL 2021-09 Yes [id number] 10mg Take 1 [facility] 10 mg 0-11 tablet by ity of tablet 00:00: mouth in [place] the Medical morning. Branch Appointmen t needed. Please contact office. spironolact 2021-09 Yes [id number] 25mg Take 1 [facility] one 25 mg 0-11 tablet by ity o f tablet 00:00: mouth in [place] 00 the Medical morning. Branch fluticasone 2021-09 Yes [id number] 1{spray Use 1-2 [facility] propionate 0-11 } Sprays in ity of 50 00:00: each [place] mcg/actuati 00 nostril in [place] on nasal the [facility] spray morning. Insulin 2021-09 Yes [id number] Use as [facility], 0-11 directed ity of Disposable, 00:00: to inject [place] (PEN 00 insulin Medical NEEDLE) 32 daily; Branch gauge x ICD-10 " Ndle code E11.8 loratadine 2021-09 Yes [id number] 10mg Take 1 [facility] 10 mg 0-11 tablet by ity of tablet 00:00: mouth at [place] [address] bedtime. Medical Branch prasugreL 2021-09 Yes [id number] 10mg Take 1 [facility] 10 mg 0-11 tablet by ity of tablet 00:00: mouth in [place] the Medical morning. Branch Appointmen t needed. Please contact office. spironolact 2021-09 Yes [id number] 25mg Take 1 [facility] one 25 mg 0-11 tablet by ity o f tablet 00:00: mouth in [place] the Medical morning. Branch Insulin 2021-09 Yes [id number] Use as [facility], 0-11 directed ity of Disposable, 00:00: to inject [place] (PEN 00 insulin Medical NEEDLE) 32 daily; Branch gauge x ICD-10 " Ndle code E11.8 loratadine 2021-09 Yes [id number] 10mg Take 1 [facility] 10 mg 0-11 tablet by ity of tablet 00:00: mouth at [place] [address] bedtime. Medical Branch prasugreL 2021-09 Yes [id number] 10mg Take 1 [facility] 10 mg 0-11 tablet by ity of tablet 00:00: mouth in [place] 00 the Medical morning. Branch Appointmen t needed. Please contact office. spironolact 2021-09 Yes [id number] 25mg Take 1 [facility] one 25 mg 0-11 tablet by ity o f tablet 00:00: mouth in [place] the Medical morning. Branch Insulin 2021-09 Yes [id number] Use as [facility], 0-11 directed ity of Disposable, 00:00: to inject [place] (PEN 00 insulin Medical NEEDLE) 32 daily; Branch gauge x ICD-10 5/32" Ndle code E11.8 loratadine 2021-09 Yes [id number] 10mg Take 1 [facility] 10 mg 0-11 tablet by ity of tablet 00:00: mouth at [place] 00 bedtime. Medical Branch prasugreL 2021-09 Yes [id number] 10mg Take 1 [facility] [place] 10 mg 0-11 tablet by ity of tablet 00:00: mouth in [place] the Medical morning. Branch Appointmen t needed. Please contact office. spironolact 2021-09 Yes [id number] 25mg Take 1 [facility] one 25 mg 0-11 tablet by ity o f tablet 00:00: mouth in [place] the Medical morning. Branch Insulin 2021-09 Yes [id number] Use as [facility], 0-11 directed ity of Disposable, 00:00: to inject [place] (PEN 00 insulin Medical NEEDLE) 32 daily; Branch gauge x ICD-10 532" Ndle code E11.8 loratadine 2021-09 Yes [id number] 10mg Take 1 [facility] 10 mg 0-11 tablet by ity of tablet 00:00: mouth at [place] 00 bedtime. Medical Branch prasugreL 2021-09 Yes [id number] 10mg Take 1 [facility] [place] 10 mg 0-11 tablet by ity of tablet 00:00: mouth in [place] the Medical morning. Branch Appointmen t needed. Please contact office. Insulin 2021-09 Yes [id number] Use as [facility], 0-11 directed ity of Disposable, 00:00: to inject [place] (PEN 00 insulin Medical NEEDLE) 32 daily; Branch gauge x ICD-10 5/32" Ndle code E11.8 loratadine 2021-09 Yes [id number] 10mg Take 1 [facility] 10 mg 0-11 tablet by ity of tablet 00:00: mouth at [place] 00 bedtime. Medical Branch prasugreL 2021-09 Yes [id number] 10mg Take 1 [facility] [place] 10 mg 0-11 tablet by ity of tablet 00:00: mouth in [place] 00 the Medical morning. Branch Appointmen t needed. Please contact office. Insulin 2021-09 Yes [id number] Use as [facility], 0-11 directed ity of Disposable, 00:00: to inject [place] (PEN 00 insulin Medical NEEDLE) 32 daily; Branch gauge x ICD-10 5/32" Ndle code E11.8 loratadine 2021-09 Yes [id number] 10mg Take 1 [facility] 10 mg 0-11 tablet by ity of tablet 00:00: mouth at [place] 00 bedtime. Medical Branch prasugreL 2021-09 Yes [id number] 10mg Take 1 [facility] [place] 10 mg 0-11 tablet by ity of tablet 00:00: mouth in [place] 00 the Medical morning. Branch Appointmen t needed. Please contact office. Insulin 2021-09 Yes [id number] Use as [facility], 0-11 directed ity of Disposable, 00:00: to inject [place] (PEN 00 insulin Medical NEEDLE) 32 daily; Branch gauge x ICD-10 5/32" Ndle code E11.8 Insulin 2021-09 Yes [id number] Use as [facility], 0-11 directed ity of Disposable, 00:00: to inject [place] (PEN 00 insulin Medical NEEDLE) 32 daily; Branch gauge x ICD-10 5/32" Ndle code E11.8 Insulin 2021-09 Yes [id number] Use as [facility], 0-11 directed ity of Disposable, 00:00: to inject [place] (PEN 00 insulin Medical NEEDLE) 32 daily; Branch gauge x ICD-10 5/32" Ndle code E11.8 Insulin 2021-09 Yes [id number] Use as [facility], 0-11 directed ity of Disposable, 00:00: to inject [place] (PEN 00 insulin Medical NEEDLE) 32 daily; Branch gauge x ICD-10 5/32" Ndle code E11.8 Insulin 2021-09 Yes [id number] Use as [facility], 0-11 directed ity of Disposable, 00:00: to inject [place] (PEN 00 insulin Medical NEEDLE) 32 daily; Branch gauge x ICD-10 5/32" Ndle code E11.8 Insulin 2021-09 Yes [id number] Use as [facility], 0-11 directed ity of Disposable, 00:00: to inject [place] (PEN 00 insulin Medical NEEDLE) 32 daily; Branch gauge x ICD-10 5/32" Ndle code E11.8 Insulin 2021-09 Yes [id number] Use as [facility], 0-11 directed ity of Disposable, 00:00: to inject [place] (PEN 00 insulin Medical NEEDLE) 32 daily; Branch gauge x ICD-10 5/32" Ndle code E11.8 Insulin 2021-09 Yes [id number] Use as [facility], 0-11 directed ity of Disposable, 00:00: to inject [place] (PEN 00 insulin Medical NEEDLE) 32 daily; Branch gauge x ICD-10 5/32" Ndle code E11.8 Insulin 2021-09 Yes [id number] Use as [facility], 0-11 directed ity of Disposable, 00:00: to inject [place] (PEN 00 insulin Medical NEEDLE) 32 daily; Branch gauge x ICD-10 5/32" Ndle code E11.8 Insulin 2021-09 Yes [id number] Use as [facility], 0-11 directed ity of Disposable, 00:00: to inject [place] (PEN 00 insulin Medical NEEDLE) 32 daily; Branch gauge x ICD-10 5/32" Ndle code E11.8 Insulin 2021-09 Yes [id number] Use as [facility], 0-11 directed ity of Disposable, 00:00: to inject [place] (PEN 00 insulin Medical NEEDLE) 32 daily; Branch gauge x ICD-10 5/32" Ndle code E11.8 Insulin 2021-09 Yes [id number] Use as [facility], 0-11 directed ity of Disposable, 00:00: to inject [place] (PEN 00 insulin Medical NEEDLE) 32 daily; Branch gauge x ICD-10 5/32" Ndle code E11.8 Insulin 2021-09 Yes [id number] Use as [facility], 0-11 directed ity of Disposable, 00:00: to inject [place] (PEN 00 insulin Medical NEEDLE) 32 daily; Branch gauge x ICD-10 5/32" Ndle code E11.8 Insulin 2021-09 Yes [id number] Use as [facility], 0-11 directed ity of Disposable, 00:00: to inject [place] (PEN 00 insulin Medical NEEDLE) 32 daily; Branch gauge x ICD-10 5/32" Ndle code E11.8 Insulin 2021-09 Yes [id number] Use as [facility], 0-11 directed ity of Disposable, 00:00: to inject [place] (PEN 00 insulin Medical NEEDLE) 32 daily; Branch gauge x ICD-10 5/32" Ndle code E11.8 Insulin 2021-09 Yes [id number] Use as [facility], 0-11 directed ity of Disposable, 00:00: to inject [place] (PEN 00 insulin Medical NEEDLE) 32 daily; Branch gauge x ICD-10 5/32" Ndle code E11.8 Insulin 2021-09 Yes [id number] Use as [facility], 0-11 directed ity of Disposable, 00:00: to inject [place] (PEN 00 insulin Medical NEEDLE) 32 daily; Branch gauge x ICD-10 5/32" Ndle code E11.8 Insulin 2021-09 Yes [id number] Use as [facility], 0-11 directed ity of Disposable, 00:00: to inject [place] (PEN 00 insulin Medical NEEDLE) 32 daily; Branch gauge x ICD-10 5/32" Ndle code E11.8 Insulin 2021-09 Yes [id number] Use as [facility], 0-11 directed ity of Disposable, 00:00: to inject [place] (PEN 00 insulin Medical NEEDLE) 32 daily; Branch gauge x ICD-10 5/32" Ndle code E11.8 Insulin 2021-09 Yes [id number] Use as [facility], 0-11 directed ity of Disposable, 00:00: to inject [place] (PEN 00 insulin Medical NEEDLE) 32 daily; Branch gauge x ICD-10 5/32" Ndle code E11.8 Insulin 2021-09 Yes [id number] Use as [facility], 0-11 directed ity of Disposable, 00:00: to inject [place] (PEN 00 insulin Medical NEEDLE) 32 daily; Branch gauge x ICD-10 5/32" Ndle code E11.8 Insulin 2021-09 Yes [id number] Use as [facility], 0-11 directed ity of Disposable, 00:00: to inject [place] (PEN 00 insulin Medical NEEDLE) 32 daily; Branch gauge x ICD-10 5/32" Ndle code E11.8 Insulin 2021-09 Yes [id number] Use as [facility], 0-11 directed ity of Disposable, 00:00: to inject [place] (PEN 00 insulin Medical NEEDLE) 32 daily; Branch gauge x ICD-10 5/32" Ndle code E11.8 Insulin 2021-09 Yes [id number] Use as [facility], 0-11 directed ity of Disposable, 00:00: to inject [place] (PEN 00 insulin Medical NEEDLE) 32 daily; Branch gauge x ICD-10 5/32" Ndle code E11.8 Insulin 2021-09 Yes [id number] Use as [facility], 0-11 directed ity of Disposable, 00:00: to inject [place] (PEN 00 insulin Medical NEEDLE) 32 daily; Branch gauge x ICD-10 5/32" Ndle code E11.8 Insulin 2021-09 Yes [id number] Use as [facility], 0-11 directed ity of Disposable, 00:00: to inject [place] (PEN 00 insulin Medical NEEDLE) 32 daily; Branch gauge x ICD-10 5/32" Ndle code E11.8 Insulin 2021-09 Yes [id number] Use as [facility], 0-11 directed ity of Disposable, 00:00: to inject [place] (PEN 00 insulin Medical NEEDLE) 32 daily; Branch gauge x ICD-10 5/32" Ndle code E11.8 Insulin 2021-09 Yes [id number] Use as [facility], 0-11 directed ity of Disposable, 00:00: to inject [place] (PEN 00 insulin Medical NEEDLE) 32 daily; Branch gauge x ICD-10 5/32" Ndle code E11.8 Insulin 2021-09 Yes [id number] Use as [facility], 0-11 directed ity of Disposable, 00:00: to inject [place] (PEN 00 insulin Medical NEEDLE) 32 daily; Branch gauge x ICD-10 5/32" Ndle code E11.8 Insulin 2021-09 Yes [id number] Use as [facility], 0-11 directed ity of Disposable, 00:00: to inject [place] (PEN 00 insulin Medical NEEDLE) 32 daily; Branch gauge x ICD-10 5/32" Ndle code E11.8 Insulin 2021-09 Yes [id number] Use as [facility], 0-11 directed ity of Disposable, 00:00: to inject [place] (PEN 00 insulin Medical NEEDLE) 32 daily; Branch gauge x ICD-10 5/32" Ndle code E11.8 Insulin 2021-09 Yes [id number] Use as [facility], 0-11 directed ity of Disposable, 00:00: to inject [place] (PEN 00 insulin Medical NEEDLE) 32 daily; Branch gauge x ICD-10 5/32" Ndle code E11.8 Insulin 2021-09 Yes [id number] Use as [facility], 0-11 directed ity of Disposable, 00:00: to inject [place] (PEN 00 insulin Medical NEEDLE) 32 daily; Branch gauge x ICD-10 5/32" Ndle code E11.8 Insulin 2021-09 Yes [id number] Use as [facility], 0-11 directed ity of Disposable, 00:00: to inject [place] (PEN 00 insulin Medical NEEDLE) 32 daily; Branch gauge x ICD-10 5/32" Ndle code E11.8 Insulin 2021-09 Yes [id number] Use as [facility], 0-11 directed ity of Disposable, 00:00: to inject [place] (PEN 00 insulin Medical NEEDLE) 32 daily; Branch gauge x ICD-10 5/32" Ndle code E11.8 Insulin 2021-09 Yes [id number] Use as [facility], 0-11 directed ity of Disposable, 00:00: to inject [place] (PEN 00 insulin Medical NEEDLE) 32 daily; Branch gauge x ICD-10 5/32" Ndle code E11.8 Insulin 2021-09 Yes [id number] Use as [facility], 0-11 directed ity of Disposable, 00:00: to inject [place] (PEN 00 insulin Medical NEEDLE) 32 daily; Branch gauge x ICD-10 5/32" Ndle code E11.8 Insulin 2021-09 Yes [id number] Use as [facility], 0-11 directed ity of Disposable, 00:00: to inject [place] (PEN 00 insulin Medical NEEDLE) 32 daily; Branch gauge x ICD-10 5/32" Ndle code E11.8 Insulin 2021-09 Yes [id number] Use as [facility], 0-11 directed ity of Disposable, 00:00: to inject [place] (PEN 00 insulin Medical NEEDLE) 32 daily; Branch gauge x ICD-10 5/32" Ndle code E11.8 loratadine 2021-09- No [id number] 10mg Take 1 [facility] 10 mg 0- tablet by ity of tablet 00:00: 00:00 mouth at [place] 00 :00 bedtime. [facility] prasugreL 2021-09- No [id number] 10mg Take 1 U nivers 10 mg 0-08 02- tablet by ity of tablet 00:00: 00:00 mouth in [place] 00 :00 the Medical morning. Branch Appointmen t needed. Please contact office. loratadine 2021-09- No [id number] 10mg Take 1 [facility] 10 mg 005-16 tablet by ity of tablet 00:00: 00:00 mouth at [place] 00 :00 bedtime. [facility] prasugreL 2021-09- No [id number] 10mg Take 1 U nivers 10 mg 005-16 tablet by ity of tablet 00:00: 00:00 mouth in [place] 00 :00 the Medical morning. Branch Appointmen t needed. Please contact office. spironolact 2021-09- No [id number] 25mg Take 1 [facility] one 25 mg 04-21 tablet by ity of tablet 00:00: 00:00 mouth in [place] 00 :00 the Medical morning. [place] fluticasone 2021-09- No [id number] 1{spray Use 1-2 [facility] propionate 03-22 } Sprays in ity of 50 00:00: 00:00 each [place] mcg/actuati 00 :00 nostril in [place] dical on nasal the [place] spray morning. KCL 10 mEq 2021-09- No [id number] 20meq Take 2 [facility] tablet 10-13 tablets by ity of 00:00: 00:00 mouth in [place] 00 :00 the Medical morning Branch and 2 tablets in the evening. Insulin 2021-09- No [id number] ADMINISTER [facility] Glargine 10-13 36 UNITS ity of (LANTUS 00:00: 00:00 [place] THE [place] 00 :00 SKIN TWICE Medic al U-100 DAILY [place] INSULIN) 100 unit/mL (3 mL) injection omeprazole 2021-09- No [id number] 40mg Take 1 [facility] 40 mg 10-13 capsule by ity of capsule 00:00: 00:00 mouth in [place] 00 :00 the Medical morning. Branch ondansetron 2021-09- No [id number] TAKE 1 [facility] 4 mg tablet 10-13 TABLET BY it y of 00:00: 00:00 MOUTH [place] 00 :00 EVERY 8 Medical HOURS Branch NEEDED FOR NAUSEA OR VOMITING QUEtiapine 2021-09- No [id number] 400mg Take 1 [facility] 400 mg 10-13 tablet by ity of tablet 00:00: 00:00 mouth at [place] 00 :00 bedtime. Medical ADDITIONAL Branch REFILLS PER PSYCHIATRY rosuvastati 2021-09- No [id number] 20mg Take 1 [facility] n 20 mg 10-13 tablet by ity of tablet 00:00: 00:00 mouth at [place] 00 :00 bedtime. Medical Branch KCL 10 mEq 2021-09- No [id number] 20meq Take 2 [facility] tablet 10-13 tablets by ity of 00:00: 00:00 mouth in [place] 00 :00 the Medical morning Branch and 2 tablets in the evening. Insulin 2021-09- No [id number] ADMINISTER [facility] Glargine 10-13 36 UNITS ity of (LANTUS 00:00: 00:00 UNDER THE [facility] s SOLOSTAR 00 :00 SKIN TWICE Medic al U-100 DAILY Branch INSULIN) 100 unit/mL (3 mL) injection omeprazole 2021-09- No [id number] 40mg Take 1 [facility] 40 mg 10-13 capsule by ity of capsule 00:00: 00:00 mouth in [place] 00 :00 the Medical morning. Branch ondansetron 2021-09- No [id number] TAKE 1 [facility] 4 mg tablet 10-13 TABLET BY it y of 00:00: 00:00 MOUTH [place] 00 :00 EVERY 8 Medical HOURS Branch NEEDED FOR NAUSEA OR VOMITING QUEtiapine 2021-09- No [id number] 400mg Take 1 [facility] 400 mg 10-13 tablet by ity of tablet 00:00: 00:00 mouth at [place] 00 :00 bedtime. Medical ADDITIONAL Branch REFILLS PER PSYCHIATRY rosuvastati 2021-09- No [id number] 20mg Take 1 [facility] n 20 mg 10-13 tablet by ity of tablet 00:00: 00:00 mouth at [place] 00 :00 bedtime. Medical Branch KCL 10 mEq 2021-09- No [id number] 20meq Take 2 [facility] tablet 10-13 tablets by ity of 00:00: 00:00 mouth in [place] 00 :00 the Medical morning Branch and 2 tablets in the evening. Insulin 2021-09- No [id number] ADMINISTER [facility] Glargine 10-13 36 UNITS ity of (LANTUS 00:00: 00:00 [place] THE [place] 00 :00 SKIN TWICE Medic al U-100 DAILY Branch INSULIN) 100 unit/mL (3 mL) injection omeprazole 2021-09- No [id number] 40mg Take 1 [facility] 40 mg 10-13 capsule by ity of capsule 00:00: 00:00 mouth in [place] 00 :00 the Medical morning. Branch ondansetron 2021-09- No [id number] TAKE 1 [facility] 4 mg tablet 10-13 TABLET BY it y of 00:00: 00:00 MOUTH [place] 00 :00 EVERY 8 Medical HOURS Branch NEEDED FOR NAUSEA OR VOMITING QUEtiapine 2021-09- No [id number] 400mg Take 1 [facility] 400 mg 10-13 tablet by ity of tablet 00:00: 00:00 mouth at [place] 00 :00 bedtime. Medical ADDITIONAL Branch REFILLS PER PSYCHIATRY rosuvastati 2021-09- No [id number] 20mg Take 1 [facility] n 20 mg 10-13 tablet by ity of tablet 00:00: 00:00 mouth at [place] 00 :00 bedtime. Medical Branch KCL 10 mEq 2021-09- No [id number] 20meq Take 2 [facility] tablet 10-13 tablets by ity of 00:00: 00:00 mouth in [place] 00 :00 the Medical morning Branch and 2 tablets in the evening. Insulin 2021-09- No [id number] ADMINISTER [facility] Glargine 10-13 36 UNITS ity of (LANTUS 00:00: 00:00 UND[place] THE [place] 00 :00 SKIN TWICE Medic al U-100 DAILY Branch INSULIN) 100 unit/mL (3 mL) injection omeprazole 2021-09- No [id number] 40mg Take 1 [facility] 40 mg 10-13 capsule by ity of capsule 00:00: 00:00 mouth in [place] 00 :00 the Medical morning. Branch ondansetron 2021-09- No [id number] TAKE 1 [facility] 4 mg tablet 10-13 TABLET BY it y of 00:00: 00:00 MOUTH [place] 00 :00 EVERY 8 Medical HOURS Branch NEEDED FOR NAUSEA OR VOMITING QUEtiapine 2021-09- No [id number] 400mg Take 1 [facility] 400 mg 10-13 tablet by ity of tablet 00:00: 00:00 mouth at [place] 00 :00 bedtime. Medical ADDITIONAL Branch REFILLS PER PSYCHIATRY rosuvastati 2021-09- No [id number] 20mg Take 1 Univers n 20 mg 10-13 tablet by ity of tablet 00:00: 00:00 mouth at [place] 00 :00 bedtime. Medical Branch busPIRone 2021-09- No [id number] 7.5mg Take 0.5-1 [facility] 15 mg 0-08 06- tablets by ity of tablet 00:00: 00:00 mouth 2 [place] 00 :00 (two) Medical times Branch daily as needed (anxiety). carBAMazepi 2021-09- No [id number] 200mg Take 2 [facility] ne 100 mg 0-08 06- tablets by ity of 12 hr 00:00: 00:00 mouth at [place] tablet 00 :00 bedtime. Medical Branch DULoxetine 2021-09- No [id number] 60mg Take 1 [facility] 60 mg 009-22 capsule by ity of capsule 00:00: 00:00 mouth in [place] 00 :00 the Medical morning. Branch ADDITIONAL REFILLS PER PSYCHIATRY furosemide 2021-09- No [id number] 40mg Take 1 [facility] 40 mg 0-08 06- tablet by ity of tablet 00:00: 00:00 mouth [place] 00 :00 every Medical morning Branch and evening. gabapentin 2021-09- No [id number] 300mg Take 1 [facility] 300 mg 0-08 06-29 capsule by ity of capsule 00:00: 00:00 mouth in [place] 00 :00 the Medical morning Branch and 1 capsule in the evening. levothyroxi 2021-09- No [id number] 175ug Take 1 [facility] ne 175 mcg 0- tablet by ity of tablet 00:00: 00:00 mouth [place] 00 :00 every Medical morning. Branch MUST BE SEEN FOR FURTHER REFILLS traZODone 2021-09- No [id number] TAKE 1 [facility] 100 mg 0 12-06 TABLET BY ity of tablet 00:00: 00:00 MOUTH [place] 00 :00 EVERY Medical NIGHT Branch semaglutide 2021-09- No [id number] INJECT Univers (OZEMPIC) 0 11-28 0.5MG ity of 0.25 mg or 00:00: 00:00 UNDER THE [place] 0.5 mg(2 00 :00 SKIN EVERY Medic al mg/1.5 mL) WEEK Branch PnIj metoprolol 2021-09- No [id number] 12.5mg Take 0.5 [facility] tartrate 25 0-08 tablets by i ty of mg tablet 00:00: 00:00 mouth in [place] 00 :00 the Medical morning Branch and 0.5 tablets in the evening. KCL 10 mEq 2021-09 Yes TAKE 2 Unive rs tablet 0-10 TABLETS BY ity of 00:00: MOUTH [place] 00 TWICE Medical DAILY Branch KCL 10 mEq 2021-09 Yes TAKE 2 Unive rs tablet 0-10 TABLETS BY ity of 00:00: MOUTH [place] TWICE Medical DAILY Branch KCL 10 mEq 2021-09 Yes TAKE 2 Unive rs tablet 0-10 TABLETS BY ity of 00:00: MOUTH [place] TWICE Medical DAILY Branch KCL 10 mEq 2021-09 Yes TAKE 2 Unive rs tablet 0-10 TABLETS BY ity of 00:00: MOUTH [place] 00 TWICE Medical DAILY Branch KCL 10 mEq 2021-09 Yes TAKE 2 Unive rs tablet 0-10 TABLETS BY ity of 00:00: MOUTH [place] 00 TWICE Medical DAILY Branch KCL 10 mEq 2021-09- No TAKE 2 Univ ers tablet 0-10 10-11 TABLETS BY ity of 00:00: 00:00 MOUTH [place] 00 :00 TWICE Medical DAILY Branch KCL 10 mEq 2021-09- No TAKE 2 Univ ers tablet 0-10 10-11 TABLETS BY ity of 00:00: 00:00 MOUTH [place] 00 :00 TWICE Medical DAILY Branch QUEtiapine 2022-0 Yes 400mg Take 1 Univ ers 400 mg 9-14 tablet by ity of tablet 00:00: mouth at [place] 00 bedtime. Medical ADDITIONAL Branch REFILLS PER PSYCHIATRY DULoxetine 2022-0 Yes 60mg Take 1 Unive rs 60 mg 9-14 capsule by ity of capsule 00:00: mouth in [place] the Medical morning. Branch ADDITIONAL REFILLS PER PSYCHIATRY QUEtiapine 2022-0 Yes 400mg Take 1 Univ ers 400 mg 9-14 tablet by ity of tablet 00:00: mouth at [place] 00 bedtime. Medical ADDITIONAL Branch REFILLS PER PSYCHIATRY DULoxetine 2022-0 Yes 60mg Take 1 Unive rs 60 mg 9-14 capsule by ity of capsule 00:00: mouth in [place] the Medical morning. Branch ADDITIONAL REFILLS PER PSYCHIATRY QUEtiapine 2022-0 Yes 400mg Take 1 Univ ers 400 mg 9-14 tablet by ity of tablet 00:00: mouth at [place] 00 bedtime. Medical ADDITIONAL Branch REFILLS PER PSYCHIATRY DULoxetine 2022-0 Yes 60mg Take 1 Unive rs 60 mg 9-14 capsule by ity of capsule 00:00: mouth in [place] the Medical morning. Branch ADDITIONAL REFILLS PER PSYCHIATRY QUEtiapine 2022-0 Yes 400mg Take 1 Univ ers 400 mg 9-14 tablet by ity of tablet 00:00: mouth at [place] [address] bedtime. Medical ADDITIONAL Branch REFILLS PER PSYCHIATRY DULoxetine 2022-0 Yes 60mg Take 1 Unive rs 60 mg 9-14 capsule by ity of capsule 00:00: mouth in [place] the Medical morning. Branch ADDITIONAL REFILLS PER PSYCHIATRY QUEtiapine 2022-0 Yes 400mg Take 1 Univ ers 400 mg 9-14 tablet by ity of tablet 00:00: mouth at [place] [address] bedtime. Medical ADDITIONAL Branch REFILLS PER PSYCHIATRY DULoxetine 2022-0 Yes 60mg Take 1 Unive rs 60 mg 9-14 capsule by ity of capsule 00:00: mouth in [place] the Medical morning. Branch ADDITIONAL REFILLS PER PSYCHIATRY QUEtiapine 2022-0 Yes 400mg Take 1 Univ ers 400 mg 9-14 tablet by ity of tablet 00:00: mouth at [place] [address] bedtime. Medical ADDITIONAL Branch REFILLS PER PSYCHIATRY DULoxetine 2022-0 Yes 60mg Take 1 Unive rs 60 mg 9-14 capsule by ity of capsule 00:00: mouth in [place] the Medical morning. Branch ADDITIONAL REFILLS PER PSYCHIATRY QUEtiapine 2022-0 Yes 400mg Take 1 Univ ers 400 mg 9-14 tablet by ity of tablet 00:00: mouth at [place] [address] bedtime. Medical ADDITIONAL Branch REFILLS PER PSYCHIATRY DULoxetine 2022-0 Yes 60mg Take 1 Unive rs 60 mg 9-14 capsule by ity of capsule 00:00: mouth in [place] the Medical morning. Branch ADDITIONAL REFILLS PER PSYCHIATRY QUEtiapine 2022-0 Yes 400mg Take 1 Univ ers 400 mg 9-14 tablet by ity of tablet 00:00: mouth at [place] 00 bedtime. Medical ADDITIONAL Branch REFILLS PER PSYCHIATRY DULoxetine 2022-0 Yes 60mg Take 1 Unive rs 60 mg 9-14 capsule by ity of capsule 00:00: mouth in [place] the Medical morning. Branch ADDITIONAL REFILLS PER PSYCHIATRY QUEtiapine 2022-0 Yes 400mg Take 1 Univ ers 400 mg 9-14 tablet by ity of tablet 00:00: mouth at [place] 00 bedtime. Medical ADDITIONAL Branch REFILLS PER PSYCHIATRY DULoxetine 2022-0 Yes 60mg Take 1 Unive rs 60 mg 9-14 capsule by ity of capsule 00:00: mouth in [place] the Medical morning. Branch ADDITIONAL REFILLS PER PSYCHIATRY QUEtiapine 2022-0 Yes 400mg Take 1 Univ ers 400 mg 9-14 tablet by ity of tablet 00:00: mouth at [place] 00 bedtime. Medical ADDITIONAL Branch REFILLS PER PSYCHIATRY DULoxetine 2022-0 Yes 60mg Take 1 Unive rs 60 mg 9-14 capsule by ity of capsule 00:00: mouth in [place] the Medical morning. Branch ADDITIONAL REFILLS PER PSYCHIATRY QUEtiapine 2022-0 Yes 400mg Take 1 Univ ers 400 mg 9-14 tablet by ity of tablet 00:00: mouth at [place] 00 bedtime. Medical ADDITIONAL Branch REFILLS PER PSYCHIATRY DULoxetine 2022-0 Yes 60mg Take 1 Unive rs 60 mg 9-14 capsule by ity of capsule 00:00: mouth in [place] 00 the Medical morning. Branch ADDITIONAL REFILLS PER PSYCHIATRY QUEtiapine 2022-0 Yes 400mg Take 1 Univ ers 400 mg 9-14 tablet by ity of tablet 00:00: mouth at [place] 00 bedtime. Medical ADDITIONAL Branch REFILLS PER PSYCHIATRY DULoxetine 2022-0 Yes 60mg Take 1 Unive rs 60 mg 9-14 capsule by ity of capsule 00:00: mouth in [place] 00 the Medical morning. Branch ADDITIONAL REFILLS PER PSYCHIATRY QUEtiapine 2022-0 Yes 400mg Take 1 Univ ers 400 mg 9-14 tablet by ity of tablet 00:00: mouth at [place] 00 bedtime. Medical ADDITIONAL Branch REFILLS PER PSYCHIATRY DULoxetine 2022-0 Yes 60mg Take 1 Unive rs 60 mg 9-14 capsule by ity of capsule 00:00: mouth in [place] 00 the Medical morning. Branch ADDITIONAL REFILLS PER PSYCHIATRY QUEtiapine 2022-0 Yes 400mg Take 1 Univ ers 400 mg 9-14 tablet by ity of tablet 00:00: mouth at [place] 00 bedtime. Medical ADDITIONAL Branch REFILLS PER PSYCHIATRY DULoxetine 2022-0 Yes 60mg Take 1 Unive rs 60 mg 9-14 capsule by ity of capsule 00:00: mouth in [place] 00 the Medical morning. Branch ADDITIONAL REFILLS PER PSYCHIATRY QUEtiapine 2022-0 Yes 400mg Take 1 Univ ers 400 mg 9-14 tablet by ity of tablet 00:00: mouth at [place] 00 bedtime. Medical ADDITIONAL Branch REFILLS PER PSYCHIATRY DULoxetine 2022-0 Yes 60mg Take 1 Unive rs 60 mg 9-14 capsule by ity of capsule 00:00: mouth in [place] 00 the Medical morning. Branch ADDITIONAL REFILLS PER PSYCHIATRY QUEtiapine 2022-0 2022- No 400mg Take 1 Uni vers 400 mg 9-14 10-11 tablet by ity of tablet 00:00: 00:00 mouth at [place] 00 :00 bedtime. Medical ADDITIONAL Branch REFILLS PER PSYCHIATRY DULoxetine 2022-0 2022- No 60mg Take 1 Univ ers 60 mg 9-14 10-11 capsule by ity of capsule 00:00: 00:00 mouth in [place] 00 :00 the Medical morning. Branch ADDITIONAL REFILLS PER PSYCHIATRY QUEtiapine 2022-0 2022- No 400mg Take 1 Uni vers 400 mg 9-14 10-11 tablet by ity of tablet 00:00: 00:00 mouth at [place] 00 :00 bedtime. Medical ADDITIONAL Branch REFILLS PER PSYCHIATRY DULoxetine 2022-0 2022- No 60mg Take 1 Univ ers 60 mg 9-14 10-11 capsule by ity of capsule 00:00: 00:00 mouth in [place] 00 :00 the Medical morning. Branch ADDITIONAL REFILLS PER PSYCHIATRY QUEtiapine 2021-0 2021- No 400mg Take 1 Uni vers 400 mg 9-14 10-11 tablet by ity of tablet 00:00: 00:00 mouth at [place] 00 :00 bedtime. Medical ADDITIONAL Branch REFILLS PER PSYCHIATRY DULoxetine 2021-0 2021- No 60mg Take 1 Univ ers 60 mg 9-14 10-11 capsule by ity of capsule 00:00: 00:00 mouth in [place] 00 :00 the Medical morning. Branch ADDITIONAL REFILLS PER PSYCHIATRY levothyroxi 2021-0 Yes [id number] 175ug Take 1 [facility] ne 175 mcg 9-09 tablet by ity of tablet 00:00: mouth [place] 00 every Medical morning. Branch MUST BE SEEN FOR FURTHER REFILLS levothyroxi 0 Yes [id number] 175ug Take 1 [facility] ne 175 mcg 9-09 tablet by ity of tablet 00:00: mouth [place] 00 every Medical morning. Branch MUST BE SEEN FOR FURTHER REFILLS levothyroxi 2021-0 Yes [id number] 175ug Take 1 [facility] ne 175 mcg 9-09 tablet by ity of tablet 00:00: mouth [place] 00 every Medical morning. Branch MUST BE SEEN FOR FURTHER REFILLS levothyroxi 0 Yes [id number] 175ug Take 1 [facility] ne 175 mcg 9-09 tablet by ity of tablet 00:00: mouth [place] 00 every Medical morning. Branch MUST BE SEEN FOR FURTHER REFILLS levothyroxi 2021-0 Yes [id number] 175ug Take 1 [facility] ne 175 mcg 9-09 tablet by ity of tablet 00:00: mouth [place] 00 every Medical morning. Branch MUST BE SEEN FOR FURTHER REFILLS levothyroxi 2021-0 Yes [id number] 175ug Take 1 [facility] ne 175 mcg 9-09 tablet by ity of tablet 00:00: mouth [place] 00 every Medical morning. Branch MUST BE SEEN FOR FURTHER REFILLS levothyroxi 2021-0 Yes [id number] 175ug Take 1 [facility] ne 175 mcg 9-09 tablet by ity of tablet 00:00: mouth [place] 00 every Medical morning. Branch MUST BE SEEN FOR FURTHER REFILLS levothyroxi 2021-0 Yes [id number] 175ug Take 1 [facility] ne 175 mcg 9-09 tablet by ity of tablet 00:00: mouth [place] 00 every Medical morning. Branch MUST BE SEEN FOR FURTHER REFILLS levothyroxi 2021-0 Yes [id number] 175ug Take 1 [facility] ne 175 mcg 9-09 tablet by ity of tablet 00:00: mouth [place] 00 every Medical morning. Branch MUST BE SEEN FOR FURTHER REFILLS levothyroxi 2021-0 Yes [id number] 175ug Take 1 [facility] ne 175 mcg 9-09 tablet by ity of tablet 00:00: mouth [place] 00 every Medical morning. Branch MUST BE SEEN FOR FURTHER REFILLS levothyroxi 2021-0 Yes [id number] 175ug Take 1 [facility] ne 175 mcg 9-09 tablet by ity of tablet 00:00: mouth [place] 00 every Medical morning. Branch MUST BE SEEN FOR FURTHER REFILLS levothyroxi 2021-0 Yes [id number] 175ug Take 1 [facility] ne 175 mcg 9-09 tablet by ity of tablet 00:00: mouth [place] 00 every Medical morning. Branch MUST BE SEEN FOR FURTHER REFILLS levothyroxi 2021-0 Yes [id number] 175ug Take 1 [facility] ne 175 mcg 9-09 tablet by ity of tablet 00:00: mouth [place] 00 every Medical morning. Branch MUST BE SEEN FOR FURTHER REFILLS levothyroxi 2021-0 Yes [id number] 175ug Take 1 [facility] ne 175 mcg 9-09 tablet by ity of tablet 00:00: mouth [place] 00 every Medical morning. Branch MUST BE SEEN FOR FURTHER REFILLS levothyroxi 2021-0 Yes [id number] 175ug Take 1 [facility] ne 175 mcg 9-09 tablet by ity of tablet 00:00: mouth [place] 00 every Medical morning. Branch MUST BE SEEN FOR FURTHER REFILLS levothyroxi 2021-0 Yes [id number] 175ug Take 1 [facility] ne 175 mcg 9-09 tablet by ity of tablet 00:00: mouth [place] 00 every Medical morning. Branch MUST BE SEEN FOR FURTHER REFILLS levothyroxi 2021-0 Yes [id number] 175ug Take 1 [facility] ne 175 mcg 9-09 tablet by ity of tablet 00:00: mouth [place] 00 every Medical morning. Branch MUST BE SEEN FOR FURTHER REFILLS levothyroxi 2021-0 2- No [id number] 175ug Take 1 [facility] ne 175 mcg 9-09 10-11 tablet by ity of tablet 00:00: 00:00 mouth [place] 00 :00 every Medical morning. Branch MUST BE SEEN FOR FURTHER REFILLS levothyroxi 202-0 2- No [id number] 175ug Take 1 [facility] ne 175 mcg 06-03 tablet by ity of tablet 00:00: 00:00 mouth [place] 00 :00 every Medical morning. Branch MUST BE SEEN FOR FURTHER REFILLS levothyroxi 2021-0 2- No [id number] 175ug Take 1 [facility] ne 175 mcg 06-03 tablet by ity of tablet 00:00: 00:00 mouth [place] 00 :00 every Medical morning. Branch MUST BE SEEN FOR FURTHER REFILLS furosemide 2022-0 Yes 40mg Take 1 Unive [...] Medical morning Branch and evening. furosemide 2022-0 2022- No 40mg Take 1 Univ ers 40 mg 8-26 10-11 tablet by ity of tablet 00:00: 00:00 mouth [place] 00 :00 every Medical morning Branch and evening. furosemide 2022-0 2022- No 40mg Take 1 Univ ers 40 mg 8-26 10-11 tablet by ity of tablet 00:00: 00:00 mouth [place] 00 :00 every Medical morning Branch and evening. furosemide 2022-0 2022- No 40mg Take 1 Univ ers 40 mg 8-26 10-11 tablet by ity of tablet 00:00: 00:00 mouth [place] 00 :00 every Medical morning Branch and evening. LANTUS 2022-0 Yes [id number] ADMINISTER U nivers SOLOSTAR 8-23 20 UNITS ity of U-100 00:00: UNDER THE [place] INSULIN 100 00 SKIN TWICE Me dical unit/mL (3 DAILY Branch mL) injection LANTUS 2021-0 Yes [id number] ADMINISTER U nivers SOLOSTAR 8-23 20 UNITS ity of U-100 00:00: UNDER THE [place] INSULIN 100 00 SKIN TWICE Me dical unit/mL (3 DAILY Branch mL) injection LANTUS 2021-0 Yes [id number] ADMINISTER U nivers SOLOSTAR 8-23 20 UNITS ity of U-100 00:00: UNDER THE [place] INSULIN 100 00 SKIN TWICE Me dical unit/mL (3 DAILY Branch mL) injection LANTUS 2021-0 Yes [id number] ADMINISTER U nivers SOLOSTAR 8-23 20 UNITS ity of U-100 00:00: UNDER THE [place] INSULIN 100 00 SKIN TWICE Me dical unit/mL (3 DAILY Branch mL) injection LANTUS 2021-0 Yes [id number] ADMINISTER U nivers SOLOSTAR 8-23 20 UNITS ity of U-100 00:00: UNDER THE [place] INSULIN 100 00 SKIN TWICE Me dical unit/mL (3 DAILY Branch mL) injection LANTUS 2021-0 Yes [id number] ADMINISTER U nivers SOLOSTAR 8-23 20 UNITS ity of U-100 00:00: UNDER THE [place] INSULIN 100 00 SKIN TWICE Me dical unit/mL (3 DAILY Branch mL) injection LANTUS 2021-0 Yes [id number] ADMINISTER U nivers SOLOSTAR 8-23 20 UNITS ity of U-100 00:00: UNDER THE [place] INSULIN 100 00 SKIN TWICE Me dical unit/mL (3 DAILY Branch mL) injection LANTUS 2021-0 Yes [id number] ADMINISTER U nivers SOLOSTAR 8-23 20 UNITS ity of U-100 00:00: UNDER THE [place] INSULIN 100 00 SKIN TWICE Me dical unit/mL (3 DAILY Branch mL) injection LANTUS 2021-0 Yes [id number] ADMINISTER U nivers SOLOSTAR 8-23 20 UNITS ity of U-100 00:00: UNDER THE [place] INSULIN 100 00 SKIN TWICE Me dical unit/mL (3 DAILY Branch mL) injection LANTUS 2021-0 Yes [id number] ADMINISTER U nivers SOLOSTAR 8-23 20 UNITS ity of U-100 00:00: UNDER THE [place] INSULIN 100 00 SKIN TWICE Me dical unit/mL (3 DAILY Branch mL) injection LANTUS Yes [id number] ADMINISTER U nivers SOLOSTAR 8-23 20 UNITS ity of U-100 00:00: UNDER THE [place] INSULIN 100 00 SKIN TWICE Me dical unit/mL (3 DAILY Branch mL) injection LANTUS 0 Yes [id number] ADMINISTER U nivers SOLOSTAR 8-23 20 UNITS ity of U-100 00:00: UNDER THE [place] INSULIN 100 00 SKIN TWICE Me dical unit/mL (3 DAILY Branch mL) injection LANTUS 0 Yes [id number] ADMINISTER U nivers SOLOSTAR 8-23 20 UNITS ity of U-100 00:00: UNDER THE [place] INSULIN 100 00 SKIN TWICE Me dical unit/mL (3 DAILY Branch mL) injection LANTUS Yes [id number] ADMINISTER U nivers SOLOSTAR 8-23 20 UNITS ity of U-100 00:00: UNDER THE [place] INSULIN 100 00 SKIN TWICE Me dical unit/mL (3 DAILY Branch mL) injection LANTUS 0 Yes [id number] ADMINISTER U nivers SOLOSTAR 8-23 20 UNITS ity of U-100 00:00: UNDER THE [place] INSULIN 100 00 SKIN TWICE Me dical unit/mL (3 DAILY Branch mL) injection LANTUS 0 Yes [id number] ADMINISTER U nivers SOLOSTAR 8-23 20 UNITS ity of U-100 00:00: UNDER THE [place] INSULIN 100 00 SKIN TWICE Me dical unit/mL (3 DAILY Branch mL) injection LANTUS 0 Yes [id number] ADMINISTER U nivers SOLOSTAR 8-23 20 UNITS ity of U-100 00:00: UNDER THE [place] INSULIN 100 00 SKIN TWICE Me dical unit/mL (3 DAILY Branch mL) injection LANTUS 0 Yes [id number] ADMINISTER U nivers SOLOSTAR 8-23 20 UNITS ity of U-100 00:00: UNDER THE [place] INSULIN 100 00 SKIN TWICE Me dical unit/mL (3 DAILY Branch mL) injection LANTUS 2021- No [id number] ADMINISTER Univers SOLOSTAR 8-23 10-11 20 UNITS ity of U-100 00:00: 00:00 UNDER THE [place] INSULIN 100 00 :00 SKIN TWICE Me dical unit/mL (3 DAILY Branch mL) injection LANTUS 2021- No [id number] ADMINISTER Univers SOLOSTAR -23 10-11 20 UNITS ity of U-100 00:00: 00:00 UNDER THE [place] INSULIN 100 00 :00 SKIN TWICE Me dical unit/mL (3 DAILY Branch mL) injection LANTUS 2021- No [id number] ADMINISTER Univers SOLOSTAR -23 10-11 20 UNITS ity of U-100 00:00: 00:00 UNDER THE [place] INSULIN 100 00 :00 SKIN TWICE Me dical unit/mL (3 DAILY Branch mL) injection KCL 10 mEq Yes TAKE 2 Unive rs tablet 8-12 TABLETS BY ity of 00:00: MOUTH [place] TWICE Medical DAILY. Branch rosuvastati Yes TAKE 1 Univ ers n 20 mg 8-12 TABLET BY ity of tablet 00:00: MOUTH AT [address] Medical Branch KCL 10 mEq Yes TAKE 2 Unive rs tablet 8-12 TABLETS BY ity of 00:00: MOUTH [place] TWICE Medical DAILY. Branch rosuvastati Yes TAKE 1 Univ ers n 20 mg 8-12 TABLET BY ity of tablet 00:00: MOUTH [address] Branch KCL 10 mEq 2021- Yes TAKE 2 Unive rs tablet 8-12 TABLETS BY ity of 00:00: MOUTH [place] TWICE Medical DAILY. Branch rosuvastati Yes TAKE 1 Univ ers n 20 mg 8-12 TABLET BY ity of tablet 00:00: MOUTH AT [address] Medical Branch KCL 10 mEq Yes TAKE 2 Unive rs tablet 8-12 TABLETS BY ity of 00:00: MOUTH [place] TWICE Medical DAILY. Branch rosuvastati Yes TAKE 1 [facility] ers n 20 mg 8-12 TABLET BY ity of tablet 00:00: MOUTH [address] Branch KCL 10 mEq 2021- Yes TAKE 2 Unive rs tablet 8-12 TABLETS BY ity of 00:00: MOUTH [place] TWICE Medical DAILY. Branch rosuvastati Yes TAKE 1 [facility] ers n 20 mg 8-12 TABLET BY ity of tablet 00:00: MOUTH [address] Branch KCL 10 mEq Yes TAKE 2 Unive rs tablet 8-12 TABLETS BY ity of 00:00: MOUTH [place] TWICE Medical DAILY. Branch rosuvastati Yes TAKE 1 Univ ers n 20 mg 8-12 TABLET BY ity of tablet 00:00: MOUTH AT [place] BEDTIME Medical Branch KCL 10 mEq 2021-0 Yes TAKE 2 Unive rs tablet 8-12 TABLETS BY ity of 00:00: MOUTH [place] TWICE Medical DAILY. Branch rosuvastati Yes TAKE 1 [facility] ers n 20 mg 8-12 TABLET BY ity of tablet 00:00: MOUTH AT [place] BEDTIME Medical Branch KCL 10 mEq 2021-0 Yes TAKE 2 Unive rs tablet 8-12 TABLETS BY ity of 00:00: MOUTH [place] TWICE Medical DAILY. Branch rosuvastati Yes TAKE 1 Univ ers n 20 mg 8-12 TABLET BY ity of tablet 00:00: MOUTH [facility] BEDTIME Medical Branch KCL 10 mEq 2021-0 Yes TAKE 2 Unive rs tablet 8-12 TABLETS BY ity of 00:00: MOUTH [place] TWICE Medical DAILY. Branch rosuvastati Yes TAKE 1 [facility] ers n 20 mg 8-12 TABLET BY ity of tablet 00:00: MOUTH AT [place] BEDTIME Medical Branch KCL 10 mEq 2021-0 Yes TAKE 2 [facility] rs tablet 8-12 TABLETS BY ity of 00:00: MOUTH [place] TWICE Medical DAILY. Branch rosuvastati 2021-0 Yes TAKE 1 [facility] ers n 20 mg 8-12 TABLET BY ity of tablet 00:00: MOUTH [facility] BEDTIME Medical Branch KCL 10 mEq 2-0 Yes TAKE 2 Un[facility] rs tablet 8-12 TABLETS BY ity of 00:00: MOUTH [place] TWICE Medical DAILY. Branch rosuvastati Yes TAKE 1 [facility] ers n 20 mg 8-12 TABLET BY ity of tablet 00:00: MOUTH [facility] BEDTIME Medical Branch KCL 10 mEq 2021-0 Yes TAKE 2 Unive rs tablet 8-12 TABLETS BY ity of 00:00: MOUTH [place] TWICE Medical DAILY. Branch rosuvastati Yes TAKE 1 [facility] ers n 20 mg 8-12 TABLET BY ity of tablet 00:00: MOUTH [place] [address] BEDTIME Medical Branch KCL 10 mEq 2021-0 Yes TAKE 2 [facility] rs tablet 8-12 TABLETS BY ity of 00:00: MOUTH [place] [address] TWICE Medical DAILY. Branch rosuvastati Yes TAKE 1 [facility] ers n 20 mg 8-12 TABLET BY ity of tablet 00:00: MOUTH AT [place] BEDTIME Medical Branch rosuvastati Yes TAKE 1 [facility] n 20 mg 8-12 TABLET BY ity of tablet 00:00: [facility] [place] [facility] rosuvastati Yes TAKE 1 [facility] n 20 mg 8-12 TABLET BY ity of tablet 00:00: MOUTH AT [place] BEDTIME Medical Branch rosuvastati Yes TAKE 1 [facility] ers n 20 mg 8-12 TABLET BY ity of tablet 00:00: MOUTH AT [place] [facility] Medical Branch rosuvastati Yes TAKE 1 [facility] ers n 20 mg 8-12 TABLET BY ity of tablet 00:00: MOUTH AT [place] [facility] Branch rosuvastati Yes TAKE 1 [facility] ers n 20 mg 8-12 TABLET BY ity of tablet 00:00: MOUTH AT [place] [facility] Medical Branch rosuvastati 0 2021- No TAKE 1 Uni vers n 20 mg 8-12 10-11 TABLET BY ity of tablet 00:00: 00:00 MOUTH AT [place] 00 [facility] rosuvastati 2021-0 2021- No TAKE 1 [facility] vers n 20 mg 8-12 10-11 TABLET BY ity of tablet 00:00: 00:00 MOUTH AT [place] 00 [facility] rosuvastati 0 2021- No TAKE 1 [facility] vers n 20 mg 8-12 10-11 TABLET BY ity of tablet 00:00: 00:00 MOUTH AT [place] 00 :00 [facility] Medical Branch KCL 10 mEq 2021-0 2021- No TAKE 2 [facility] ers tablet 8-12 10-10 TABLETS BY ity of 00:00: 00:00 MOUTH [place] 00 :00 TWICE Medical DAILY. Branch KCL 10 mEq 0 2021- No TAKE 2 [facility] ers tablet 8-12 10-10 TABLETS BY ity of 00:00: 00:00 MOUTH [place] 00 :00 TWICE Medical DAILY. Branch QUEtiapine Yes [id number] 400mg TAKE 1 [facility] 400 mg 8-10 TABLET BY ity of tablet 00:00: MOUTH AT [place] 00 BEDTIME Medical Branch QUEtiapine 2022-0 2022- No [id number] 400mg TAKE 1 [facility] 400 mg 05-04 TABLET BY ity of tablet 00:00: 00:00 MOUTH AT [place] 00 :00 BEDTIME Medical Branch ondansetron 2022-0 Yes [id number] TAKE 1 [facility] 4 mg tablet 7-19 TABLET BY ity of 00:00: MOUTH [place] EVERY 8 Medical HOURS Branch NEEDED FOR NAUSEA OR VOMITING ondansetron 2022-0 Yes [id number] TAKE 1 [facility] 4 mg tablet 7-19 TABLET BY ity of 00:00: MOUTH 00 EVERY 8 Medical HOURS Branch NEEDED FOR NAUSEA OR VOMITING ondansetron 2022-0 Yes [id number] TAKE 1 [facility] 4 mg tablet 7-19 TABLET BY ity of 00:00: MOUTH [place] EVERY 8 Medical HOURS Branch NEEDED FOR NAUSEA OR VOMITING ondansetron 2022-0 Yes [id number] TAKE 1 [facility] 4 mg tablet 7-19 TABLET BY ity of 00:00: MOUTH [place] EVERY 8 Medical HOURS Branch NEEDED FOR NAUSEA OR VOMITING ondansetron 2022-0 Yes [id number] TAKE 1 [facility] 4 mg tablet 7-19 TABLET BY ity of 00:00: MOUTH [place] EVERY 8 Medical HOURS Branch NEEDED FOR NAUSEA OR VOMITING ondansetron 2022-0 Yes [id number] TAKE 1 [facility] 4 mg tablet 7-19 TABLET BY ity of 00:00: MOUTH [place] EVERY 8 Medical HOURS Branch NEEDED FOR NAUSEA OR VOMITING ondansetron 2022-0 Yes [id number] TAKE 1 [facility] 4 mg tablet 7-19 TABLET BY ity of 00:00: MOUTH [place] EVERY 8 Medical HOURS Branch NEEDED FOR NAUSEA OR VOMITING ondansetron 2022-0 Yes [id number] TAKE 1 [facility] 4 mg tablet 7-19 TABLET BY ity of 00:00: MOUTH [place] EVERY 8 Medical HOURS Branch NEEDED FOR NAUSEA OR VOMITING ondansetron 2022-0 Yes [id number] TAKE 1 [facility] 4 mg tablet 7-19 TABLET BY ity of 00:00: MOUTH [place] 00 EVERY 8 Medical HOURS Branch NEEDED FOR NAUSEA OR VOMITING ondansetron 2022-0 Yes [id number] TAKE 1 [facility] 4 mg tablet 7-19 TABLET BY ity of 00:00: MOUTH [place] EVERY 8 Medical HOURS Branch NEEDED FOR NAUSEA OR VOMITING ondansetron 2022-0 Yes [id number] TAKE 1 [facility] 4 mg tablet 7-19 TABLET BY ity of 00:00: MOUTH [place] 00 EVERY 8 Medical HOURS Branch NEEDED FOR NAUSEA OR VOMITING ondansetron 2022-0 Yes [id number] TAKE 1 [facility] 4 mg tablet 7-19 TABLET BY ity of 00:00: MOUTH [place] 00 EVERY 8 Medical HOURS Branch NEEDED FOR NAUSEA OR VOMITING ondansetron 2022-0 Yes [id number] TAKE 1 [facility] 4 mg tablet 7-19 TABLET BY ity of 00:00: MOUTH [place] 00 EVERY 8 Medical HOURS Branch NEEDED FOR NAUSEA OR VOMITING ondansetron 2022-0 Yes [id number] TAKE 1 [facility] 4 mg tablet 7-19 TABLET BY ity of 00:00: MOUTH [place] 00 EVERY 8 Medical HOURS Branch NEEDED FOR NAUSEA OR VOMITING ondansetron 2022-0 Yes [id number] TAKE 1 [facility] 4 mg tablet 7-19 TABLET BY ity of 00:00: MOUTH [place] 00 EVERY 8 Medical HOURS Branch NEEDED FOR NAUSEA OR VOMITING ondansetron 2022-0 Yes [id number] TAKE 1 [facility] 4 mg tablet 7-19 TABLET BY ity of 00:00: MOUTH [place] 00 EVERY 8 Medical HOURS Branch NEEDED FOR NAUSEA OR VOMITING ondansetron 2022-0 Yes [id number] TAKE 1 [facility] 4 mg tablet 7-19 TABLET BY ity of 00:00: MOUTH [place] 00 EVERY 8 Medical HOURS Branch NEEDED FOR NAUSEA OR VOMITING ondansetron 2022-0 Yes [id number] TAKE 1 [facility] 4 mg tablet 7-19 TABLET BY ity of 00:00: MOUTH [place] 00 EVERY 8 Medical HOURS Branch NEEDED FOR NAUSEA OR VOMITING ondansetron 2022-0 2022- No [id number] TAKE 1 [facility] 4 mg tablet 7-19 10-11 TABLET BY it y of 00:00: 00:00 MOUTH [place] 00 :00 EVERY 8 Medical HOURS Branch NEEDED FOR NAUSEA OR VOMITING ondansetron 2022-0 2- No [id number] TAKE 1 [facility] 4 mg tablet 7-19 10-11 TABLET BY it y of 00:00: 00:00 MOUTH [place] 00 :00 EVERY 8 Medical HOURS Branch NEEDED FOR NAUSEA OR VOMITING ondansetron 2022-0 2- No [id number] TAKE 1 [facility] 4 mg tablet 7-19 10-11 TABLET BY it y of 00:00: 00:00 MOUTH [place] 00 :00 EVERY 8 Medical HOURS Branch NEEDED FOR NAUSEA OR VOMITING metoprolol 2021-0 Yes [id number] 12.5mg Take 0.5 Univers tartrate 25 5-31 tablets by it y of mg tablet 00:00: mouth 2 (two) Medical times Branch daily. spironolact 2021-0 Yes [id number] 25mg Take 1 [facility] one 25 mg 5-31 tablet by ity o f tablet 00:00: mouth [place] 00 daily. Medical Branch prasugreL 2021-0 Yes [id number] 10mg Take 1 Un pippa 10 mg 5-31 tablet by ity of tablet 00:00: mouth [place] 00 daily. Medical Appointmen Branch t needed. Please contact office. traZODone 2021-0 Yes TAKE 1 Univer s 100 mg 5-31 TABLET BY ity of tablet 00:00: MOUTH [place] 00 EVERY Medical NIGHT Branch metoprolol 2021-0 Yes [id number] 12.5mg Take 0.5 [facility] tartrate 25 5-31 tablets by it y of mg tablet 00:00: mouth (two) Medical times Branch daily. spironolact 2021-0 Yes [id number] 25mg Take 1 [facility] one 25 mg 5-31 tablet by ity o f tablet 00:00: mouth [place] 00 daily. Medical Branch prasugreL 2021-0 Yes [id number] 10mg Take 1 Un pippa 10 mg 5-31 tablet by ity of tablet 00:00: mouth [place] 00 daily. Medical Appointmen Branch t needed. Please contact office. traZODone 2021-0 Yes TAKE 1 Univer s 100 mg 5-31 TABLET BY ity of tablet 00:00: MOUTH [place] 00 EVERY Medical NIGHT Branch metoprolol 2021-0 Yes [id number] 12.5mg Take 0.5 [facility] tartrate 25 5-31 tablets by it y of mg tablet 00:00: mouth 2 (two) Medical times Branch daily. spironolact 2-0 Yes [id number] 25mg Take 1 [facility] one 25 mg 5-31 tablet by ity o f tablet 00:00: mouth [place] 00 daily. Medical Branch prasugreL 2021-0 Yes [id number] 10mg Take 1 Un pippa 10 mg 5-31 tablet by ity of tablet 00:00: mouth [place] 00 daily. Medical Appointmen Branch t needed. Please contact office. traZODone 2021-0 Yes TAKE 1 Univer s 100 mg 5-31 TABLET BY ity of tablet 00:00: MOUTH [place] 00 EVERY Medical NIGHT Branch metoprolol 2021-0 Yes [id number] 12.5mg Take 0.5 [facility] tartrate 25 5-31 tablets by it y of mg tablet 00:00: mouth 2 (two) Medical times Branch daily. spironolact 2021-0 Yes [id number] 25mg Take 1 [facility] one 25 mg 5-31 tablet by ity o f tablet 00:00: mouth [place] 00 daily. Medical Branch prasugreL 2021-0 Yes [id number] 10mg Take 1 Un pippa 10 mg 5-31 tablet by ity of tablet 00:00: mouth [place] 00 daily. Medical Appointmen Branch t needed. Please contact office. traZODone 2021-0 Yes TAKE 1 Univer s 100 mg 5-31 TABLET BY ity of tablet 00:00: MOUTH [place] 00 EVERY Medical NIGHT Branch metoprolol 2021-0 Yes [id number] 12.5mg Take 0.5 Univers tartrate 25 5-31 tablets by it y of mg tablet 00:00: mouth (two) Medical times Branch daily. spironolact 2021-0 Yes [id number] 25mg Take 1 Univers one 25 mg 5-31 tablet by ity o f tablet 00:00: mouth [place] 00 daily. Medical Branch prasugreL 2021-0 Yes [id number] 10mg Take 1 Un pippa 10 mg 5-31 tablet by ity of tablet 00:00: mouth [place] 00 daily. Medical Appointmen Branch t needed. Please contact office. traZODone 2021-0 Yes TAKE 1 Univer s 100 mg 5-31 TABLET BY ity of tablet 00:00: MOUTH [place] 00 EVERY Medical NIGHT Branch metoprolol 2-0 Yes [id number] 12.5mg Take 0.5 Univers tartrate 25 5-31 tablets by it y of mg tablet 00:00: mouth 2 (two) Medical times Branch daily. spironolact 2-0 Yes [id number] 25mg Take 1 [facility] one 25 mg 5-31 tablet by ity o f tablet 00:00: mouth [place] 00 daily. Medical Branch prasugreL 2021-0 Yes [id number] 10mg Take 1 Un pippa 10 mg 5-31 tablet by ity of tablet 00:00: mouth [place] 00 daily. Medical Appointmen Branch t needed. Please contact office. traZODone 2021-0 Yes TAKE 1 Univer s 100 mg 5-31 TABLET BY ity of tablet 00:00: MOUTH [place] 00 EVERY Medical NIGHT Branch metoprolol 2021-0 Yes [id number] 12.5mg Take 0.5 [facility] tartrate 25 5-31 tablets by it y of mg tablet 00:00: mouth 2 [place] (two) Medical times Branch daily. spironolact 2021-0 Yes [id number] 25mg Take 1 [facility] one 25 mg 5-31 tablet by ity o f tablet 00:00: mouth [place] 00 daily. Medical Branch prasugreL 2021-0 Yes [id number] 10mg Take 1 Un pippa 10 mg 5-31 tablet by ity of tablet 00:00: mouth [place] 00 daily. Medical Appointmen Branch t needed. Please contact office. traZODone 2021-0 Yes TAKE 1 Univer s 100 mg 5-31 TABLET BY ity of tablet 00:00: MOUTH [place] 00 EVERY Medical NIGHT Branch metoprolol 2021-0 Yes [id number] 12.5mg Take 0.5 Univers tartrate 25 5-31 tablets by it y of mg tablet 00:00: mouth 2 (two) Medical times Branch daily. spironolact 2021-0 Yes [id number] 25mg Take 1 [facility] one 25 mg 5-31 tablet by ity o f tablet 00:00: mouth [place] 00 daily. Medical Branch prasugreL 2021-0 Yes [id number] 10mg Take 1 Un pippa 10 mg 5-31 tablet by ity of tablet 00:00: mouth [place] 00 daily. Medical Appointmen Branch t needed. Please contact office. traZODone 2-0 Yes TAKE 1 Univer s 100 mg 5-31 TABLET BY ity of tablet 00:00: MOUTH [place] 00 EVERY Medical NIGHT Branch metoprolol 2-0 Yes [id number] 12.5mg Take 0.5 Univers tartrate 25 5-31 tablets by it y of mg tablet 00:00: mouth 2 (two) Medical times Branch daily. spironolact 2-0 Yes [id number] 25mg Take 1 [facility] one 25 mg 5-31 tablet by ity o f tablet 00:00: mouth [place] 00 daily. Medical Branch prasugreL 2021-0 Yes [id number] 10mg Take 1 Un pippa 10 mg 5-31 tablet by ity of tablet 00:00: mouth [place] 00 daily. Medical Appointmen Branch t needed. Please contact office. traZODone 2021-0 Yes TAKE 1 Univer s 100 mg 5-31 TABLET BY ity of tablet 00:00: MOUTH [place] 00 EVERY Medical NIGHT Branch metoprolol 2021-0 Yes [id number] 12.5mg Take 0.5 [facility] tartrate 25 5-31 tablets by it y of mg tablet 00:00: mouth 2 00 (two) Medical times Branch daily. spironolact 2021-0 Yes [id number] 25mg Take 1 [facility] one 25 mg 5-31 tablet by ity o f tablet 00:00: mouth [place] 00 daily. Medical Branch prasugreL 2021-0 Yes [id number] 10mg Take 1 Un pippa 10 mg 5-31 tablet by ity of tablet 00:00: mouth [place] 00 daily. Medical Appointmen Branch t needed. Please contact office. traZODone 2021-0 Yes TAKE 1 Univer s 100 mg 5-31 TABLET BY ity of tablet 00:00: MOUTH [place] 00 EVERY Medical NIGHT Branch metoprolol 2021-0 Yes [id number] 12.5mg Take 0.5 Univers tartrate 25 5-31 tablets by it y of mg tablet 00:00: mouth 2 (two) Medical times Branch daily. spironolact 2021-0 Yes [id number] 25mg Take 1 [facility] one 25 mg 5-31 tablet by ity o f tablet 00:00: mouth [place] 00 daily. Medical Branch prasugreL 2021-0 Yes [id number] 10mg Take 1 Un pippa 10 mg 5-31 tablet by ity of tablet 00:00: mouth [place] 00 daily. Medical Appointmen Branch t needed. Please contact office. traZODone 2021-0 Yes TAKE 1 Univer s 100 mg 5-31 TABLET BY ity of tablet 00:00: MOUTH [place] 00 EVERY Medical NIGHT Branch metoprolol 2-0 Yes [id number] 12.5mg Take 0.5 Univers tartrate 25 5-31 tablets by it y of mg tablet 00:00: mouth 2 [place] (two) Medical times Branch daily. spironolact 2-0 Yes [id number] 25mg Take 1 [facility] one 25 mg 5-31 tablet by ity o f tablet 00:00: mouth [place] 00 daily. Medical Branch prasugreL 2-0 Yes [id number] 10mg Take 1 Un pippa 10 mg 5-31 tablet by ity of tablet 00:00: mouth [place] 00 daily. Medical Appointmen Branch t needed. Please contact office. traZODone 2-0 Yes TAKE 1 Univer s 100 mg 5-31 TABLET BY ity of tablet 00:00: MOUTH [place] 00 EVERY Medical NIGHT Branch metoprolol 2021-0 Yes [id number] 12.5mg Take 0.5 Univers tartrate 25 5-31 tablets by it y of mg tablet 00:00: mouth 2 (two) Medical times Branch daily. spironolact 2-0 Yes [id number] 25mg Take 1 [facility] one 25 mg 5-31 tablet by ity o f tablet 00:00: mouth [place] 00 daily. Medical Branch prasugreL 2021-0 Yes [id number] 10mg Take 1 Un pippa 10 mg 5-31 tablet by ity of tablet 00:00: mouth [place] 00 daily. Medical Appointmen Branch t needed. Please contact office. traZODone 2021-0 Yes TAKE 1 Univer s 100 mg 5-31 TABLET BY ity of tablet 00:00: MOUTH [place] 00 EVERY Medical NIGHT Branch metoprolol 2-0 Yes [id number] 12.5mg Take 0.5 [facility] tartrate 25 5-31 tablets by it y of mg tablet 00:00: mouth (two) Medical times Branch daily. spironolact 2-0 Yes [id number] 25mg Take 1 [facility] one 25 mg 5-31 tablet by ity o f tablet 00:00: mouth [place] 00 daily. Medical Branch prasugreL 2-0 Yes [id number] 10mg Take 1 Un pippa 10 mg 5-31 tablet by ity of tablet 00:00: mouth [place] 00 daily. Medical Appointmen Branch t needed. Please contact office. traZODone 2-0 Yes TAKE 1 Univer s 100 mg 5-31 TABLET BY ity of tablet 00:00: MOUTH [place] 00 EVERY Medical NIGHT Branch metoprolol 2-0 Yes [id number] 12.5mg Take 0.5 [facility] tartrate 25 5-31 tablets by it y of mg tablet 00:00: mouth 2 (two) Medical times Branch daily. spironolact 2022-0 Yes [id number] 25mg Take 1 [facility] one 25 mg 5-31 tablet by ity o f tablet 00:00: mouth [place] 00 daily. Medical Branch prasugreL 2-0 Yes [id number] 10mg Take 1 Un pippa 10 mg 5-31 tablet by ity of tablet 00:00: mouth [place] 00 daily. Medical Appointmen Branch t needed. Please contact office. traZODone 2-0 Yes TAKE 1 Univer s 100 mg 5-31 TABLET BY ity of tablet 00:00: MOUTH [place] 00 EVERY Medical NIGHT Branch metoprolol 2-0 Yes [id number] 12.5mg Take 0.5 [facility] tartrate 25 5-31 tablets by it y of mg tablet 00:00: mouth (two) Medical times Branch daily. spironolact 2-0 Yes [id number] 25mg Take 1 [facility] one 25 mg 5-31 tablet by ity o f tablet 00:00: mouth [place] 00 daily. Medical Branch prasugreL 2-0 Yes [id number] 10mg Take 1 Un pippa 10 mg 5-31 tablet by ity of tablet 00:00: mouth [place] 00 daily. Medical Appointmen Branch t needed. Please contact office. traZODone 2-0 Yes TAKE 1 Univer s 100 mg 5-31 TABLET BY ity of tablet 00:00: MOUTH [place] 00 EVERY Medical NIGHT Branch metoprolol 2-0 Yes [id number] 12.5mg Take 0.5 [facility] tartrate 25 5-31 tablets by it y of mg tablet 00:00: mouth 2 (two) Medical times Branch daily. spironolact 2-0 Yes [id number] 25mg Take 1 [facility] one 25 mg 5-31 tablet by ity o f tablet 00:00: mouth [place] 00 daily. Medical Branch prasugreL 2-0 Yes [id number] 10mg Take 1 Un pippa 10 mg 5-31 tablet by ity of tablet 00:00: mouth [place] 00 daily. Medical Appointmen Branch t needed. Please contact office. traZODone 2-0 Yes TAKE 1 Un[facility] s 100 mg 5-31 TABLET BY ity of tablet 00:00: MOUTH [place] 00 EVERY Medical NIGHT Branch metoprolol Yes [id number] 12.5mg Take 0.5 [facility] tartrate 25 5-31 tablets by it y of mg tablet 00:00: mouth 2 [place] 00 (two) Medical times Branch daily. spironolact Yes [id number] 25mg Take 1 [facility] one 25 mg 5-31 tablet by ity o f tablet 00:00: mouth [place] 00 daily. Medical Branch prasugreL Yes [id number] 10mg Take 1 Un pippa 10 mg 5-31 tablet by ity of tablet 00:00: mouth [place] 00 daily. Medical Appointmen Branch t needed. Please contact office. traZODone Yes TAKE 1 [facility]iver s 100 mg 5-31 TABLET BY ity of tablet 00:00: MOUTH [place] 00 EVERY Medical NIGHT Branch metoprolol 2021- No [id number] 12.5mg Take 0.5 [facility] tartrate 25 5-31 10-11 tablets by i ty of mg tablet 00:00: 00:00 mouth 2 [place] :[place] (two) Medical times Branch daily. spironolact 2021- No [id number] 25mg Take 1 [facility] one 25 mg 5-31 10-11 tablet by ity of tablet 00:00: 00:00 mouth [place] 00 :00 daily. Medical Branch prasugreL 2021- No [id number] 10mg Take 1 U nivers 10 mg 5-31 10-11 tablet by ity of tablet 00:00: 00:00 mouth [place] 00 :00 daily. Medical Appointmen Branch t needed. Please contact office. traZODone 0 2021- No TAKE 1 Unive rs 100 mg 5-31 10-11 TABLET BY ity of tablet 00:00: 00:00 MOUTH [place] 00 :00 EVERY Medical NIGHT Branch metoprolol 2021- No [id number] 12.5mg Take 0.5 [facility] tartrate 25 5-31 10-11 tablets by i ty of mg tablet 00:00: 00:00 mouth 2 [place] 00 :00 (two) Medical times Branch daily. spironolact 2021-2021- No [id number] 25mg Take 1 [facility] one 25 mg 5-31 10-11 tablet by ity of tablet 00:00: 00:00 mouth [place] 00 :00 daily. Medical Branch prasugreL 2021- No [id number] 10mg Take 1 U nivers 10 mg 5-31 10-11 tablet by ity of tablet 00:00: 00:00 mouth [place] 00 :00 daily. Medical Appointmen Branch t needed. Please contact office. traZODone 2021-2021- No TAKE 1 Unive rs 100 mg 5-31 10-11 TABLET BY ity of tablet 00:00: 00:00 MOUTH [place] 00 :00 EVERY Medical NIGHT Branch metoprolol 2021-2021- No [id number] 12.5mg Take 0.5 [facility] tartrate 25 5-31 10-11 tablets by i ty of mg tablet 00:00: 00:00 mouth 2 [place] 00 :00 (two) Medical times Branch daily. spironolact 2021- No [id number] 25mg Take 1 [facility] one 25 mg 5-31 10-11 tablet by ity of tablet 00:00: 00:00 mouth [place] 00 :00 daily. Medical Branch prasugreL 2021- No [id number] 10mg Take 1 U nivers 10 mg 5-31 10-11 tablet by ity of tablet 00:00: 00:00 mouth [place] 00 :00 daily. Medical Appointmen Branch t needed. Please contact office. traZODone 2021-2021- No TAKE 1 Unive rs 100 mg 5-31 10-11 TABLET BY ity of tablet 00:00: 00:00 MOUTH [place] 00 :00 EVERY Medical NIGHT Branch ibuprofen 2022-0 Yes [facility] 800 mg 5-30 ity of tablet 00:00: 00 Medical Branch ibuprofen 2022-0 Yes [facility] 800 mg 5-30 ity of tablet 00:00: 00 Medical Branch ibuprofen 2022-0 Yes [facility] 800 mg 5-30 ity of tablet 00:00: 00 Medical Branch ibuprofen 2022-0 Yes [facility] 800 mg 5-30 ity of tablet 00:00: 00 Medical Branch ibuprofen 2022-0 Yes [facility] 800 mg 5-30 ity of tablet 00:00: 00 Medical Branch ibuprofen 2022-0 Yes [facility] 800 mg 5-30 ity of tablet 00:00: 00 Medical Branch ibuprofen 2022-0 Yes [facility] 800 mg 5-30 ity of tablet 00:00: [place] [address] Medical Branch ibuprofen 2022-0 Yes [facility] 800 mg 5-30 ity of tablet 00:00: [place] [address] Medical Branch ibuprofen 2022-0 Yes [facility] 800 mg 5-30 ity of tablet 00:00: [place] [address] Medical Branch ibuprofen 2022-0 Yes [facility] 800 mg 5-30 ity of tablet 00:00: [place] [address] Medical Branch ibuprofen 2022-0 Yes [facility] 800 mg 5-30 ity of tablet 00:00: [place] [address] Medical Branch ibuprofen 2022-0 Yes [facility] 800 mg 5-30 ity of tablet 00:00: [place] [address] Medical Branch ibuprofen 2022-0 Yes [facility] 800 mg 5-30 ity of tablet 00:00: [place] [address] Medical Branch ibuprofen 2022-0 Yes [facility] 800 mg 5-30 ity of tablet 00:00: [place] [address] Medical Branch ibuprofen 2022-0 Yes [facility] 800 mg 5-30 ity of tablet 00:00: [place] [address] Medical Branch ibuprofen 2022-0 Yes [facility] 800 mg 5-30 ity of tablet 00:00: [place] [address] Medical Branch ibuprofen 2022-0 Yes [facility] 800 mg 5-30 ity of tablet 00:00: [place] [address] Medical Branch ibuprofen 2022-0 Yes [facility] 800 mg 5-30 ity of tablet 00:00: [place] [address] Medical Branch ibuprofen 2022-0 2022- No [facility] 800 mg 5-30 10-11 ity of tablet 00:00: 00:00 [place] 00 :00 Medical Branch ibuprofen 2022-0 2022- No [facility] 800 mg 5-30 10-11 ity of tablet 00:00: 00:00 [place] 00 :00 Medical Branch ibuprofen 2022-0 2022- No [facility] 800 mg 5-30 10-11 ity of tablet 00:00: 00:00 [place] 00 :00 Medical Branch aspirin 81 2022-0 Yes 81mg Take 81 mg U nivers mg chewable 3-17 by mouth ity of tablet 00:00: daily. [place] [address] Medical Branch aspirin 81 2022-0 Yes 81mg Take 81 mg U nivers mg chewable 3-17 by mouth ity of tablet 00:00: daily. [place] [address] Medical Branch aspirin 81 2022-0 Yes 81mg Take 81 mg U nivers mg chewable 3-17 by mouth ity of tablet 00:00: daily. [place] [address] Medical Branch aspirin 81 2022-0 Yes 81mg Take 81 mg U nivers mg chewable 3-17 by mouth ity of tablet 00:00: daily. [place] [facility] Branch aspirin 81 2022-0 Yes 81mg Take 81 mg U nivers mg chewable 3-17 by mouth ity of tablet 00:00: daily. [place] [facility] Branch aspirin 81 2022-0 Yes 81mg Take 81 mg U nivers mg chewable 3-17 by mouth ity of tablet 00:00: daily. [place] [facility] Branch aspirin 81 2022-0 Yes 81mg Take 81 mg U nivers mg chewable 3-17 by mouth ity of tablet 00:00: daily. [place] Medical Branch aspirin 81 2022-0 Yes 81mg Take 81 mg U nivers mg chewable 3-17 by mouth ity of tablet 00:00: daily. [place] [facility] Branch aspirin 81 2022-0 Yes 81mg Take 81 mg U nivers mg chewable 3-17 by mouth ity of tablet 00:00: daily. [place] [facility] Branch aspirin 81 2022-0 Yes 81mg Take 81 mg U nivers mg chewable 3-17 by mouth ity of tablet 00:00: daily. [place] [facility] Branch aspirin 81 2022-0 Yes 81mg Take 81 mg U nivers mg chewable 3-17 by mouth ity of tablet 00:00: daily. [place] [facility] Branch aspirin 81 2022-0 Yes 81mg Take 81 mg U nivers mg chewable 3-17 by mouth ity of tablet 00:00: daily. [place] [facility] Branch aspirin 81 2022-0 Yes 81mg Take 81 mg U nivers mg chewable 3-17 by mouth ity of tablet 00:00: daily. [place] [facility] Branch aspirin 81 2022-0 Yes 81mg Take 81 mg U nivers mg chewable 3-17 by mouth ity of tablet 00:00: daily. [place] [facility] Branch aspirin 81 2022-0 Yes 81mg Take 81 mg U nivers mg chewable 3-17 by mouth ity of tablet 00:00: daily. [address] Branch aspirin 81 2022-0 Yes 81mg Take 81 mg U nivers mg chewable 3-17 by mouth ity of tablet 00:00: daily. [address] Branch aspirin 81 2022-0 Yes 81mg Take 81 mg U nivers mg chewable 3-17 by mouth ity of tablet 00:00: daily. [place] [facility] Branch aspirin 81 2022-0 Yes 81mg Take 81 mg U nivers mg chewable 3-17 by mouth ity of tablet 00:00: daily. [place] [facility] Branch aspirin 81 2022-0 Yes 81mg Take 81 mg U nivers mg chewable 3-17 by mouth ity of tablet 00:00: daily. [place] [facility] Branch aspirin 81 2022-0 Yes 81mg Take 81 mg U nivers mg chewable 3-17 by mouth ity of tablet 00:00: daily. [place] [facility] Branch aspirin 81 2022-0 Yes 81mg Take 81 mg U nivers mg chewable 3-17 by mouth ity of tablet 00:00: daily. [place] [facility] Branch aspirin 81 2022-0 Yes 81mg Take 81 mg U nivers mg chewable 3-17 by mouth ity of tablet 00:00: daily. [place] [facility] Branch aspirin 81 2022-0 Yes 81mg Take 81 mg U nivers mg chewable 3-17 by mouth ity of tablet 00:00: daily. [place] [facility] Branch aspirin 81 2022-0 Yes 81mg Take 81 mg U nivers mg chewable 3-17 by mouth ity of tablet 00:00: daily. [place] [facility] Branch aspirin 81 2022-0 Yes 81mg Take 81 mg U nivers mg chewable 3-17 by mouth ity of tablet 00:00: daily. [place] [facility] aspirin 81 2022-0 Yes 81mg Take 81 mg U nivers mg chewable 3-17 by mouth ity of tablet 00:00: daily. [place] [facility] aspirin 81 2022-0 Yes 81mg Take 81 mg U nivers mg chewable 3-17 by mouth ity of tablet 00:00: daily. [place] [facility] aspirin 81 2022-0 Yes 81mg Take 81 mg U nivers mg chewable 3-17 by mouth ity of tablet 00:00: daily. [place] [facility] aspirin 81 2022-0 Yes 81mg Take 81 mg U nivers mg chewable 3-17 by mouth ity of tablet 00:00: daily. [address] Branch aspirin 81 2022-0 Yes 81mg Take 81 mg U nivers mg chewable 3-17 by mouth ity of tablet 00:00: daily. [address] Branch aspirin 81 2022-0 Yes 81mg Take 81 mg U nivers mg chewable 3-17 by mouth ity of tablet 00:00: daily. [place] [facility] aspirin 81 2022-0 Yes 81mg Take 81 mg U nivers mg chewable 3-17 by mouth ity of tablet 00:00: daily. [place] [facility] aspirin 81 2022-0 Yes 81mg Take 81 mg U nivers mg chewable 3-17 by mouth ity of tablet 00:00: daily. [place] [facility] aspirin 81 2022-0 Yes 81mg Take 81 mg U nivers mg chewable 3-17 by mouth ity of tablet 00:00: daily. [place] [facility] aspirin 81 2022-0 Yes 81mg Take 81 mg U nivers mg chewable 3-17 by mouth ity of tablet 00:00: daily. [place] [facility] aspirin 81 2022-0 Yes 81mg Take 81 mg U nivers mg chewable 3-17 by mouth ity of tablet 00:00: daily. [place] [facility] aspirin 81 2022-0 Yes 81mg Take 81 mg U nivers mg chewable 3-17 by mouth ity of tablet 00:00: daily. [place] [facility] aspirin 81 2022-0 Yes 81mg Take 81 mg U nivers mg chewable 3-17 by mouth ity of tablet 00:00: daily. [place] [facility] aspirin 81 2022-0 Yes 81mg Take 81 mg U nivers mg chewable 3-17 by mouth ity of tablet 00:00: daily. [place] [facility] aspirin 81 2022-0 Yes 81mg Take 81 mg U nivers mg chewable 3-17 by mouth ity of tablet 00:00: daily. [place] [facility] aspirin 81 2022-0 Yes 81mg Take 81 mg U nivers mg chewable 3-17 by mouth ity of tablet 00:00: daily. [place] [facility] aspirin 81 2022-0 Yes 81mg Take 81 mg U nivers mg chewable 3-17 by mouth ity of tablet 00:00: daily. [address] Branch aspirin 81 2022-0 Yes 81mg Take 81 mg U nivers mg chewable 3-17 by mouth ity of tablet 00:00: daily. [address] Branch aspirin 81 2022-0 Yes 81mg Take 81 mg U nivers mg chewable 3-17 by mouth ity of tablet 00:00: daily. [place] [facility] aspirin 81 2022-0 Yes 81mg Take 81 mg U nivers mg chewable 3-17 by mouth ity of tablet 00:00: daily. [place] [facility] aspirin 81 2022-0 Yes 81mg Take 81 mg U nivers mg chewable 3-17 by mouth ity of tablet 00:00: daily. [place] [facility] aspirin 81 2022-0 Yes 81mg Take 81 mg U nivers mg chewable 3-17 by mouth ity of tablet 00:00: daily. [place] [facility] aspirin 81 2022-0 Yes 81mg Take 81 mg U nivers mg chewable 3-17 by mouth ity of tablet 00:00: daily. [place] [facility] aspirin 81 2022-0 Yes 81mg Take 81 mg U nivers mg chewable 3-17 by mouth ity of tablet 00:00: daily. [place] [facility] aspirin 81 2022-0 Yes 81mg Take 81 mg U nivers mg chewable 3-17 by mouth ity of tablet 00:00: daily. [place] [facility] aspirin 81 2022-0 Yes 81mg Take 81 mg U nivers mg chewable 3-17 by mouth ity of tablet 00:00: daily. [place] [facility] aspirin 81 2022-0 Yes 81mg Take 81 mg U nivers mg chewable 3-17 by mouth ity of tablet 00:00: daily. [place] [facility] aspirin 81 2022-0 Yes 81mg Take 81 mg U nivers mg chewable 3-17 by mouth ity of tablet 00:00: daily. [place] [facility] aspirin 81 2022-0 Yes 81mg Take 81 mg U nivers mg chewable 3-17 by mouth ity of tablet 00:00: daily. [address] Branch aspirin 81 2022-0 Yes 81mg Take 81 mg U nivers mg chewable 3-17 by mouth ity of tablet 00:00: daily. [place] [facility] aspirin 81 2022-0 Yes 81mg Take 81 mg U nivers mg chewable 3-17 by mouth ity of tablet 00:00: daily. [address] Branch aspirin 81 2022-0 Yes 81mg Take 81 mg U nivers mg chewable 3-17 by mouth ity of tablet 00:00: daily. [address] Branch aspirin 81 2022-0 Yes 81mg Take 81 mg U nivers mg chewable 3-17 by mouth ity of tablet 00:00: daily. [place] [facility] aspirin 81 2022-0 Yes 81mg Take 81 mg U nivers mg chewable 3-17 by mouth ity of tablet 00:00: daily. [place] [facility] aspirin 81 2022-0 Yes 81mg Take 81 mg U nivers mg chewable 3-17 by mouth ity of tablet 00:00: daily. [place] [facility] aspirin 81 2022-0 Yes 81mg Take 81 mg U nivers mg chewable 3-17 by mouth ity of tablet 00:00: daily. [place] [facility] aspirin 81 2022-0 Yes 81mg Take 81 mg U nivers mg chewable 3-17 by mouth ity of tablet 00:00: daily. [place] [facility] aspirin 81 2022-0 Yes 81mg Take 81 mg U nivers mg chewable 3-17 by mouth ity of tablet 00:00: daily. [place] [facility] aspirin 81 2022-0 Yes 81mg Take 81 mg U nivers mg chewable 3-17 by mouth ity of tablet 00:00: daily. [place] [facility] aspirin 81 2022-0 Yes 81mg Take 81 mg U nivers mg chewable 3-17 by mouth ity of tablet 00:00: daily. [place] [facility] aspirin 81 2022-0 Yes 81mg Take 81 mg U nivers mg chewable 3-17 by mouth ity of tablet 00:00: daily. [place] [facility] aspirin 81 2022-0 Yes 81mg Take 81 mg U nivers mg chewable 3-17 by mouth ity of tablet 00:00: daily. [place] [facility] aspirin 81 2022-0 Yes 81mg Take 81 mg U nivers mg chewable 3-17 by mouth ity of tablet 00:00: daily. [place] [facility] aspirin 81 2022-0 Yes 81mg Take 81 mg U nivers mg chewable 3-17 by mouth ity of tablet 00:00: daily. [address] Branch aspirin 81 2022-0 Yes 81mg Take 81 mg U nivers mg chewable 3-17 by mouth ity of tablet 00:00: daily. [address] Branch aspirin 81 2022-0 Yes 81mg Take 81 mg U nivers mg chewable 3-17 by mouth ity of tablet 00:00: daily. [place] [facility] aspirin 81 2022-0 Yes 81mg Take 81 mg U nivers mg chewable 3-17 by mouth ity of tablet 00:00: daily. [place] [facility] aspirin 81 2022-0 Yes 81mg Take 81 mg U nivers mg chewable 3-17 by mouth ity of tablet 00:00: daily. [place] [facility] aspirin 81 2022-0 Yes 81mg Take 81 mg U nivers mg chewable 3-17 by mouth ity of tablet 00:00: daily. [place] [facility] aspirin 81 2022-0 Yes 81mg Take 81 mg U nivers mg chewable 3-17 by mouth ity of tablet 00:00: daily. [place] [facility] aspirin 81 2022-0 Yes 81mg Take 81 mg U nivers mg chewable 3-17 by mouth ity of tablet 00:00: daily. [place] [facility] aspirin 81 2022-0 Yes 81mg Take 81 mg U nivers mg chewable 3-17 by mouth ity of tablet 00:00: daily. [place] [facility] aspirin 81 2022-0 Yes 81mg Take 81 mg U nivers mg chewable 3-17 by mouth ity of tablet 00:00: daily. [place] [facility] aspirin 81 2022-0 Yes 81mg Take 81 mg U nivers mg chewable 3-17 by mouth ity of tablet 00:00: daily. [place] [facility] aspirin 81 2022-0 Yes 81mg Take 81 mg U nivers mg chewable 3-17 by mouth ity of tablet 00:00: daily. [place] [facility] aspirin 81 2022-0 Yes 81mg Take 81 mg U nivers mg chewable 3-17 by mouth ity of tablet 00:00: daily. [place] [facility] aspirin 81 2022-0 Yes 81mg Take 81 mg U nivers mg chewable 3-17 by mouth ity of tablet 00:00: daily. [address] Branch aspirin 81 2022-0 Yes 81mg Take 81 mg U nivers mg chewable 3-17 by mouth ity of tablet 00:00: daily. [address] Branch aspirin 81 2022-0 Yes 81mg Take 81 mg U nivers mg chewable 3-17 by mouth ity of tablet 00:00: daily. [address] Branch aspirin 81 2022-0 Yes 81mg Take 81 mg U nivers mg chewable 3-17 by mouth ity of tablet 00:00: daily. Medical Branch aspirin 81 2021-0 Yes 81mg Take 81 mg U nivers mg chewable 3-17 by mouth ity of tablet 00:00: daily. Medical Branch aspirin 81 2-0 Yes 81mg Take 81 mg U nivers mg chewable 3-17 by mouth ity of tablet 00:00: daily. Medical Branch aspirin 81 2-0 Yes 81mg Take 81 mg U nivers mg chewable 3-17 by mouth ity of tablet 00:00: daily. Medical Branch aspirin 81 2021-0 2023- No 81mg Take 1 Univ ers mg chewable 3-17 05-22 tablet by it y of tablet 00:00: 00:00 mouth in [place] 00 :00 the Medical morning. Branch aspirin 81 2-0 2023- No 81mg Take 1 Univ ers mg chewable 3-17 05-22 tablet by it y of tablet 00:00: 00:00 mouth in [place] 00 :00 the Medical morning. Branch aspirin 81 2021-0 2023- No 81mg Take 1 Univ ers mg chewable 3-17 05-22 tablet by it y of tablet 00:00: 00:00 mouth in [place] 00 :00 the Medical morning. Branch busPIRone 2021-0 Yes [id number] 7.5mg Take 0.5-1 [facility] 15 mg 2-15 tablets by ity of tablet 00:00: mouth (two) Medical times [place] daily as needed (anxiety). terbinafine 2021-0 Yes [id number] 250mg Take 1 [facility] HCL 250 mg 2-15 tablet by ity of tablet 00:00: mouth 00 daily. Medical Branch busPIRone 2021-0 Yes [id number] 7.5mg Take 0.5-1 [facility] 15 mg 2-15 tablets by ity of tablet 00:00: mouth 2 (two) Medical times Branch daily as needed (anxiety). terbinafine 2021-0 Yes [id number] 250mg Take 1 [facility] HCL 250 mg 2-15 tablet by ity of tablet 00:00: mouth 00 daily. Medical Branch busPIRone 2021-0 Yes [id number] 7.5mg Take 0.5-1 [facility] 15 mg 2-15 tablets by ity of tablet 00:00: mouth 2 00 (two) Medical times Branch daily as needed (anxiety). terbinafine 2021-0 Yes [id number] 250mg Take 1 [facility] HCL 250 mg 2-15 tablet by ity of tablet 00:00: mouth 00 daily. Medical Branch busPIRone 2021-0 Yes [id number] 7.5mg Take 0.5-1 [facility] 15 mg 2-15 tablets by ity of tablet 00:00: mouth 00 (two) Medical times Branch daily as needed (anxiety). terbinafine 2021-0 Yes [id number] 250mg Take 1 [facility] HCL 250 mg 2-15 tablet by ity of tablet 00:00: mouth 00 daily. Medical Branch busPIRone 2021-0 Yes [id number] 7.5mg Take 0.5-1 [facility] 15 mg 2-15 tablets by ity of tablet 00:00: mouth 00 (two) Medical times Branch daily as needed (anxiety). terbinafine 2021-0 Yes [id number] 250mg Take 1 [facility] HCL 250 mg 2-15 tablet by ity of tablet 00:00: mouth 00 daily. Medical Branch busPIRone 2021-0 Yes [id number] 7.5mg Take 0.5-1 [facility] 15 mg 2-15 tablets by ity of tablet 00:00: mouth 00 (two) Medical times Branch daily as needed (anxiety). terbinafine 2021-0 Yes [id number] 250mg Take 1 [facility] HCL 250 mg 2-15 tablet by ity of tablet 00:00: mouth 00 daily. Medical Branch busPIRone 2021-0 Yes [id number] 7.5mg Take 0.5-1 [facility] 15 mg 2-15 tablets by ity of tablet 00:00: mouth 00 (two) Medical times Branch daily as needed (anxiety). terbinafine 2021-0 Yes [id number] 250mg Take 1 [facility] HCL 250 mg 2-15 tablet by ity of tablet 00:00: mouth [place] 00 daily. Medical Branch busPIRone 2021-0 Yes [id number] 7.5mg Take 0.5-1 [facility] 15 mg 2-15 tablets by ity of tablet 00:00: mouth 2 00 (two) Medical times Branch daily as needed (anxiety). terbinafine 2-0 Yes [id number] 250mg Take 1 [facility] HCL 250 mg 2-15 tablet by ity of tablet 00:00: mouth 00 daily. Medical Branch busPIRone 2021-0 Yes [id number] 7.5mg Take 0.5-1 [facility] 15 mg 2-15 tablets by ity of tablet 00:00: mouth 00 (two) Medical times Branch daily as needed (anxiety). terbinafine 2021-0 Yes [id number] 250mg Take 1 [facility] HCL 250 mg 2-15 tablet by ity of tablet 00:00: mouth 00 daily. Medical Branch busPIRone 2021-0 Yes [id number] 7.5mg Take 0.5-1 [facility] 15 mg 2-15 tablets by ity of tablet 00:00: mouth (two) Medical times Branch daily as needed (anxiety). terbinafine 2021-0 Yes [id number] 250mg Take 1 [facility] HCL 250 mg 2-15 tablet by ity of tablet 00:00: mouth 00 daily. Medical Branch busPIRone 2021-0 Yes [id number] 7.5mg Take 0.5-1 [facility] 15 mg 2-15 tablets by ity of tablet 00:00: mouth (two) Medical times Branch daily as needed (anxiety). terbinafine 2021-0 Yes [id number] 250mg Take 1 [facility] HCL 250 mg 2-15 tablet by ity of tablet 00:00: mouth 00 daily. Medical Branch busPIRone 2021-0 Yes [id number] 7.5mg Take 0.5-1 [facility] 15 mg 2-15 tablets by ity of tablet 00:00: mouth (two) Medical times Branch daily as needed (anxiety). terbinafine 2-0 Yes [id number] 250mg Take 1 [facility] HCL 250 mg 2-15 tablet by ity of tablet 00:00: mouth 00 daily. Medical Branch busPIRone 2-0 Yes [id number] 7.5mg Take 0.5-1 [facility] 15 mg 2-15 tablets by ity of tablet 00:00: mouth 2 (two) Medical times Branch daily as needed (anxiety). terbinafine 2022-0 Yes [id number] 250mg Take 1 [facility] HCL 250 mg 2-15 tablet by ity of tablet 00:00: mouth [place] 00 daily. Medical Branch busPIRone 2021-0 Yes [id number] 7.5mg Take 0.5-1 [facility] 15 mg 2-15 tablets by ity of tablet 00:00: mouth 2 00 (two) Medical times Branch daily as needed (anxiety). terbinafine 2021-0 Yes [id number] 250mg Take 1 [facility] HCL 250 mg 2-15 tablet by ity of tablet 00:00: mouth [place] 00 daily. Medical Branch busPIRone 2021-0 Yes [id number] 7.5mg Take 0.5-1 [facility] 15 mg 2-15 tablets by ity of tablet 00:00: mouth 00 (two) Medical times Branch daily as needed (anxiety). terbinafine 0 Yes [id number] 250mg Take 1 [facility] HCL 250 mg 2-15 tablet by ity of tablet 00:00: mouth 00 daily. Medical Branch busPIRone 2021-0 Yes [id number] 7.5mg Take 0.5-1 [facility] 15 mg 2-15 tablets by ity of tablet 00:00: mouth (two) Medical times Branch daily as needed (anxiety). terbinafine 2021-0 Yes [id number] 250mg Take 1 [facility] HCL 250 mg 2-15 tablet by ity of tablet 00:00: mouth 00 daily. Medical Branch busPIRone 2021-0 Yes [id number] 7.5mg Take 0.5-1 [facility] 15 mg 2-15 tablets by ity of tablet 00:00: mouth 00 (two) Medical times Branch daily as needed (anxiety). terbinafine 2021-0 Yes [id number] 250mg Take 1 [facility] HCL 250 mg 2-15 tablet by ity of tablet 00:00: mouth [place] 00 daily. Medical Branch busPIRone 2021-0 Yes [id number] 7.5mg Take 0.5-1 [facility] 15 mg 2-15 tablets by ity of tablet 00:00: mouth 2 00 (two) Medical times Branch daily as needed (anxiety). terbinafine 2021-0 Yes [id number] 250mg Take 1 [facility] HCL 250 mg 2-15 tablet by ity of tablet 00:00: mouth [place] 00 daily. [facility] terbinafine 2021-0 Yes [id number] 250mg Take 1 [facility] HCL 250 mg 2-15 tablet by ity of tablet 00:00: mouth [place] 00 daily. [facility] terbinafine 2021-0 Yes [id number] 250mg Take 1 [facility] HCL 250 mg 2-15 tablet by ity of tablet 00:00: mouth [place] 00 daily. [facility] terbinafine 2021-0 Yes [id number] 250mg Take 1 [facility] HCL 250 mg 2-15 tablet by ity of tablet 00:00: mouth [place] 00 daily. [facility] terbinafine 2021-0 Yes [id number] 250mg Take 1 [facility] HCL 250 mg 2-15 tablet by ity of tablet 00:00: mouth [place] 00 daily. [facility] terbinafine 2021-0 Yes [id number] 250mg Take 1 [facility] HCL 250 mg 2-15 tablet by ity of tablet 00:00: mouth [place] 00 daily. [facility] terbinafine 2021-0 Yes [id number] 250mg Take 1 [facility] HCL 250 mg 2-15 tablet by ity of tablet 00:00: mouth [place] 00 daily. [facility] terbinafine 2021-0 Yes [id number] 250mg Take 1 [facility] HCL 250 mg 2-15 tablet by ity of tablet 00:00: mouth [place] 00 daily. [facility] terbinafine 2021-0 Yes [id number] 250mg Take 1 [facility] HCL 250 mg 2-15 tablet by ity of tablet 00:00: mouth [place] 00 daily. [facility] terbinafine 2021-0 Yes [id number] 250mg Take 1 [facility] HCL 250 mg 2-15 tablet by ity of tablet 00:00: mouth [place] 00 daily. [facility] terbinafine 2021-0 Yes [id number] 250mg Take 1 [facility] HCL 250 mg 2-15 tablet by ity of tablet 00:00: mouth [place] 00 daily. [facility] terbinafine 2021-0 Yes [id number] 250mg Take 1 [facility] HCL 250 mg 2-15 tablet by ity of tablet 00:00: mouth [place] 00 daily. [facility] terbinafine 2021-0 Yes [id number] 250mg Take 1 [facility] HCL 250 mg 2-15 tablet by ity of tablet 00:00: mouth [place] 00 daily. [facility] terbinafine 2021-0 Yes [id number] 250mg Take 1 [facility] HCL 250 mg 2-15 tablet by ity of tablet 00:00: mouth [place] 00 daily. [facility] terbinafine 2021-0 Yes [id number] 250mg Take 1 [facility] HCL 250 mg 2-15 tablet by ity of tablet 00:00: mouth [place] 00 daily. [facility] terbinafine 2021-0 Yes [id number] 250mg Take 1 [facility] HCL 250 mg 2-15 tablet by ity of tablet 00:00: mouth [place] 00 daily. [facility] terbinafine 2021-0 Yes [id number] 250mg Take 1 [facility] HCL 250 mg 2-15 tablet by ity of tablet 00:00: mouth [place] 00 daily. [facility] terbinafine 2021-0 Yes [id number] 250mg Take 1 [facility] HCL 250 mg 2-15 tablet by ity of tablet 00:00: mouth [place] 00 daily. [facility] terbinafine 2021-0 Yes [id number] 250mg Take 1 [facility] HCL 250 mg 2-15 tablet by ity of tablet 00:00: mouth [place] 00 daily. [facility] terbinafine 2021-0 Yes [id number] 250mg Take 1 [facility] HCL 250 mg 2-15 tablet by ity of tablet 00:00: mouth [place] 00 daily. [facility] terbinafine 2021-0 Yes [id number] 250mg Take 1 [facility] HCL 250 mg 2-15 tablet by ity of tablet 00:00: mouth [place] 00 daily. [facility] terbinafine 2021-0 Yes [id number] 250mg Take 1 [facility] HCL 250 mg 2-15 tablet by ity of tablet 00:00: mouth [place] 00 daily. [facility] terbinafine 2021-0 Yes [id number] 250mg Take 1 [facility] HCL 250 mg 2-15 tablet by ity of tablet 00:00: mouth [place] 00 daily. [facility] terbinafine 2021-0 Yes [id number] 250mg Take 1 [facility] HCL 250 mg 2-15 tablet by ity of tablet 00:00: mouth [place] 00 daily. [facility] terbinafine 2021-0 2023- No [id number] 250mg Take 1 [facility] HCL 250 mg 2-15 - tablet by ity of tablet 00:00: 00:00 mouth [place] 00 :00 daily. [facility] terbinafine 2022- No [id number] 250mg Take 1 [facility] HCL 250 mg 11-09 tablet by ity of tablet 00:00: 00:00 mouth [place] 00 :00 daily. [facility] terbinafine 2022- No [id number] 250mg Take 1 [facility] HCL 250 mg 11-09 tablet by ity of tablet 00:00: 00:00 mouth [place] 00 :00 daily. [facility] terbinafine 2022- No [id number] 250mg Take 1 [facility] HCL 250 mg 210-13 tablet by ity of tablet 00:00: 00:00 mouth [place] 00 :00 daily. [facility] terbinafine 2022- No [id number] 250mg Take 1 [facility] HCL 250 mg 11-09 tablet by ity of tablet 00:00: 00:00 mouth [place] 00 :00 daily. [facility] terbinafine 2022- No [id number] 250mg Take 1 [facility] HCL 250 mg 11-09 tablet by ity of tablet 00:00: 00:00 mouth [place] 00 :00 daily. [facility] busPIRone 2021- No [id number] 7.5mg Take 0.5-1 [facility] 15 mg 2-15 10-11 tablets by ity of tablet 00:00: 00:00 mouth 2 [place] 00 :00 (two) Medical times Branch daily as needed (anxiety). busPIRone 2021- No [id number] 7.5mg Take 0.5-1 [facility] 15 mg 2-15 10-11 tablets by ity of tablet 00:00: 00:00 mouth 2 [place] 00 :00 (two) Medical times Branch daily as needed (anxiety). busPIRone 2021- No [id number] 7.5mg Take 0.5-1 [facility] 15 mg 2-15 10-11 tablets by ity of tablet 00:00: 00:00 mouth 2 [place] 00 :00 (two) Medical times Branch daily as needed (anxiety). busPIRone 2021- No [id number] 7.5mg Take 0.5-1 [facility] 15 mg 2-15 10-11 tablets by ity of tablet 00:00: 00:00 mouth 2 [place] 00 :00 (two) Medical times Branch daily as needed (anxiety). aspirin 81 2021- No [id number] 81mg Take 1 [facility] mg EC 2-15 06-10 tablet by ity of tablet 00:00: 00:00 mouth [place] 00 :00 daily. Medical Branch rosuvastati 2021- No [id number] 40mg Take 1 [facility] n 40 mg 2-15 -10 tablet by ity of tablet 00:00: 00:00 mouth at [place] 00 :00 bedtime. Medical Branch Ferrous 2021- No [id number] 1{tbl} Take 1 [facility] Fumarate 2-15 04-14 tablet by ity o f 324 mg (106 00:00: 00:00 mouth 2 [place] mg iron) 00 :00 (two) Medical Tab times Branch daily. Take with a source of vitamin C. [facility] Yes [id number] INJECT Univ ers 0.25 mg or 2-09 0.5MG ity of 0.5 mg(2 00:00: [place] mg/1.5 mL) 00 SKIN EVERY Med ical PnIj [facility] Branch [facility] Yes [id number] INJECT Univ ers 0.25 mg or 2-09 0.5MG ity of 0.5 mg(2 00:00: [place] mg/1.5 mL) 00 SKIN EVERY Med ical PnIj [facility] Yes [id number] INJECT Univ ers 0.25 mg or 2-09 0.5MG ity of 0.5 mg(2 00:00: [place] mg/1.5 mL) 00 SKIN EVERY Med ical PnIj [facility] Branch [facility] Yes [id number] INJECT Univ ers 0.25 mg or 2-09 0.5MG ity of 0.5 mg(2 00:00: [place] mg/1.5 mL) 00 SKIN EVERY Med ical PnIj [facility] Yes [id number] INJECT Univ ers 0.25 mg or 2-09 0.5MG ity of 0.5 mg(2 00:00: [place] mg/1.5 mL) 00 SKIN EVERY Med ical PnIj [facility] Yes [id number] INJECT Univ ers 0.25 mg or 2-09 0.5MG ity of 0.5 mg(2 00:00: [place] mg/1.5 mL) 00 SKIN EVERY Med ical PnIj [facility] Yes [id number] INJECT Univ ers 0.25 mg or 2-09 0.5MG ity of 0.5 mg(2 00:00: [place] mg/1.5 mL) 00 SKIN EVERY Med ical PnIj [facility] Yes [id number] INJECT Univ ers 0.25 mg or 2-09 0.5MG ity of 0.5 mg(2 00:00: [place] mg/1.5 mL) 00 SKIN EVERY Med ical PnIj [facility] Yes [id number] INJECT Univ ers 0.25 mg or 2-09 0.5MG ity of 0.5 mg(2 00:00: [place] THE [place] mg/1.5 mL) 00 SKIN EVERY Med ical PnIj [facility] Yes [id number] INJECT Univ ers 0.25 mg or 2-09 0.5MG ity of 0.5 mg(2 00:00: [place] mg/1.5 mL) 00 SKIN EVERY Med ical PnIj [facility] Yes [id number] INJECT Univ ers 0.25 mg or 2-09 0.5MG ity of 0.5 mg(2 00:00: [place] mg/1.5 mL) 00 SKIN EVERY Med ical PnIj [facility] Yes [id number] INJECT Univ ers 0.25 mg or 2-09 0.5MG ity of 0.5 mg(2 00:00: [place] mg/1.5 mL) 00 SKIN EVERY Med ical PnIj [facility] Yes [id number] INJECT Univ ers 0.25 mg or 2-09 0.5MG ity of 0.5 mg(2 00:00: [place] THE [place] mg/1.5 mL) 00 SKIN EVERY Med ical PnIj [facility] Yes [id number] INJECT Univ ers 0.25 mg or 2-09 0.5MG ity of 0.5 mg(2 00:00: [place] mg/1.5 mL) 00 SKIN EVERY Med ical PnIj [facility] Yes [id number] INJECT Univ ers 0.25 mg or 2-09 0.5MG ity of 0.5 mg(2 00:00: [place] THE [place] mg/1.5 mL) 00 SKIN EVERY Med ical PnIj [facility] Yes [id number] INJECT Univ ers 0.25 mg or 2-09 0.5MG ity of 0.5 mg(2 00:00: [place] THE [place] mg/1.5 mL) 00 SKIN EVERY Med ical PnIj [facility] Yes [id number] INJECT Univ ers 0.25 mg or 2-09 0.5MG ity of 0.5 mg(2 00:00: [place] mg/1.5 mL) 00 SKIN EVERY Med ical PnIj [facility] Yes [id number] INJECT Univ ers 0.25 mg or 2-09 0.5MG ity of 0.5 mg(2 00:00: [place] mg/1.5 mL) 00 SKIN EVERY Med ical PnIj [facility] 2021- No [id number] INJECT Uni vers 0.25 mg or 2-09 10-11 0.5MG ity of 0.5 mg(2 00:00: 00:00 UNDER THE [place] mg/1.5 mL) 00 :00 SKIN EVERY Med ical PnIj [facility] 2021- No [id number] INJECT Uni vers 0.25 mg or 2-09 10-11 0.5MG ity of 0.5 mg(2 00:00: 00:00 UNDER THE [place] as mg/1.5 mL) 00 :00 SKIN EVERY Med ical PnIj [facility] 2021- No [id number] INJECT Uni vers 0.25 mg or 2-09 10-11 0.5MG ity of 0.5 mg(2 00:00: 00:00 UNDER THE [place] as mg/1.5 mL) 00 :00 SKIN EVERY Med ical PnIj [facility] Branch OZEMPIC 2021- No [id number] INJECT Uni vers 0.25 mg or 11-03 0.5MG ity of 0.5 mg(2 00:00: 00:00 UNDER THE Price as mg/1.5 mL) 00 :00 SKIN EVERY Med ical PnIj WEEK Branch spironolact 2021- No 25mg Take 1 [facility] vers one 25 mg 11-01 tablet by ity of tablet 00:00: 00:00 mouth [place] 00 :00 daily. Medical Branch CARBAMAZEPI Yes [id number] TAKE 1 [facility] NE 100 mg 2-03 TABLET BY ity o f 12 hr 00:00: MOUTH [place] tablet 00 TWICE Medical DAILY Branch CARBAMAZEPI 0 Yes [id number] TAKE 1 [facility] NE 100 mg 2-03 TABLET BY ity o f 12 hr 00:00: MOUTH [place] tablet 00 TWICE Medical DAILY Branch CARBAMAZEPI 0 Yes [id number] TAKE 1 [facility] NE 100 mg 2-03 TABLET BY ity o f 12 hr 00:00: MOUTH [place] tablet 00 TWICE Medical DAILY Branch CARBAMAZEPI 2021-0 Yes [id number] TAKE 1 [facility] NE 100 mg 2-03 TABLET BY ity o f 12 hr 00:00: MOUTH [place] tablet 00 TWICE Medical DAILY Branch CARBAMAZEPI 2021-0 Yes [id number] TAKE 1 [facility] NE 100 mg 2-03 TABLET BY ity o f 12 hr 00:00: MOUTH [place] tablet 00 TWICE Medical DAILY Branch CARBAMAZEPI 2021-0 Yes [id number] TAKE 1 [facility] NE 100 mg 2-03 TABLET BY ity o f 12 hr 00:00: MOUTH [place] tablet 00 TWICE Medical DAILY Branch CARBAMAZEPI 2021-0 Yes [id number] TAKE 1 [facility] NE 100 mg 2-03 TABLET BY ity o f 12 hr 00:00: MOUTH [place] tablet 00 TWICE Medical DAILY Branch CARBAMAZEPI 2021-0 Yes [id number] TAKE 1 [facility] NE 100 mg 2-03 TABLET BY ity o f 12 hr 00:00: MOUTH [place] tablet 00 TWICE Medical DAILY Branch CARBAMAZEPI 2021-0 Yes [id number] TAKE 1 [facility] NE 100 mg 2-03 TABLET BY ity o f 12 hr 00:00: MOUTH [place] tablet 00 TWICE Medical DAILY Branch CARBAMAZEPI 2021-0 Yes [id number] TAKE 1 [facility] NE 100 mg 2-03 TABLET BY ity o f 12 hr 00:00: MOUTH [place] tablet 00 TWICE Medical DAILY Branch CARBAMAZEPI 2021-0 Yes [id number] TAKE 1 [facility] NE 100 mg 2-03 TABLET BY ity o f 12 hr 00:00: MOUTH [place] tablet 00 TWICE Medical DAILY Branch CARBAMAZEPI 2021-0 Yes [id number] TAKE 1 [facility] NE 100 mg 2-03 TABLET BY ity o f 12 hr 00:00: MOUTH [place] tablet 00 TWICE Medical DAILY Branch CARBAMAZEPI 2021-0 Yes [id number] TAKE 1 [facility] NE 100 mg 2-03 TABLET BY ity o f 12 hr 00:00: MOUTH [place] tablet 00 TWICE Medical DAILY Branch CARBAMAZEPI 2021-0 Yes [id number] TAKE 1 [facility] NE 100 mg 2-03 TABLET BY ity o f 12 hr 00:00: MOUTH [place] tablet 00 TWICE Medical DAILY Branch CARBAMAZEPI 2021-0 Yes [id number] TAKE 1 [facility] NE 100 mg 2-03 TABLET BY ity o f 12 hr 00:00: MOUTH [place] tablet 00 TWICE Medical DAILY Branch CARBAMAZEPI 2021-0 Yes [id number] TAKE 1 [facility] NE 100 mg 2-03 TABLET BY ity o f 12 hr 00:00: MOUTH [place] tablet 00 TWICE Medical DAILY Branch CARBAMAZEPI 2021-0 Yes [id number] TAKE 1 [facility] NE 100 mg 2-03 TABLET BY ity o f 12 hr 00:00: MOUTH [place] tablet 00 TWICE Medical DAILY Branch CARBAMAZEPI 2021-0 Yes [id number] TAKE 1 [facility] NE 100 mg 2-03 TABLET BY ity o f 12 hr 00:00: MOUTH [place] tablet 00 TWICE Medical DAILY Branch CARBAMAZEPI 2021-0 2021- No [id number] TAKE 1 [facility] NE 100 mg 2-03 10-11 TABLET BY ity of 12 hr 00:00: 00:00 MOUTH [place] tablet 00 :00 TWICE Medical DAILY Branch CARBAMAZEPI 2021-0 2021- No [id number] TAKE 1 [facility] NE 100 mg 2-03 10-11 TABLET BY ity of 12 hr 00:00: 00:00 MOUTH [place] tablet 00 :00 TWICE Medical DAILY Branch CARBAMAZEPI 2021-0 2021- No [id number] TAKE 1 [facility] NE 100 mg 2-03 10-11 TABLET BY ity of 12 hr 00:00: 00:00 MOUTH [place] tablet 00 :00 TWICE Medical DAILY Branch CARBAMAZEPI 2021- No [id number] TAKE 1 [facility] NE 100 mg 10-28 10-11 TABLET BY ity of 12 hr 00:00: 00:00 MOUTH [place] tablet 00 :00 TWICE Medical DAILY Branch traZODone 2021- No [id number] TAKE 1 [facility] 50 mg 10-20- TABLET BY ity of tablet 00:00: 00:00 MOUTH [place] 00 :00 EVERY Medical NIGHT AT Branch BEDTIME NEEDED FOR INSOMNIA Insulin 2021- No [id number] 30U inject 30 [facility] Glargine 10-04- Units ity of (LANTUS 00:00: [place] 00 :00 skin 2 Medical U-100 (two) Branch INSULIN) times 100 unit/mL daily. (3 mL) injection DULOXETINE Yes [id number] 60mg TAKE 1 [facility] 60 mg 09-27 CAPSULE BY ity of capsule 00:00: MOUTH [place] 00 DAILY Medical Branch DULOXETINE 2021- No [id number] 60mg TAKE 1 [facility] 60 mg 09-27 CAPSULE BY ity of capsule 00:00: 00:00 MOUTH [place] 00 :00 DAILY Medical Branch DULOXETINE 2021- No [id number] 60mg TAKE 1 [facility] 60 mg 09-27 CAPSULE BY ity of capsule 00:00: 00:00 MOUTH [place] 00 :00 DAILY Medical Branch prasugreL 2021- No [id number] 10mg Take 1 U nivers 10 mg 09-27 tablet by ity of tablet 00:00: 00:00 mouth [place] 00 :00 daily. Medical Appointmen Branch t needed. Please contact office. QUETIAPINE 2021- No [id number] 400mg TAKE 1 [facility] 400 mg 09-27 TABLET BY ity of tablet 00:00: 00:00 MOUTH AT [place] 00 :00 BEDTIME Medical Branch GABAPENTIN 2020-09 Yes [id number] TAKE 1 [facility] 300 mg 11-21 CAPSULE BY ity of capsule 00:00: MOUTH [place] 00 TWICE Medical DAILY Branch GABAPENTIN 2021-1 Yes [id number] TAKE 1 [facility] 300 mg 2-27 CAPSULE BY ity of capsule 00:00: MOUTH [place] TWICE Medical DAILY Branch GABAPENTIN 2021-1 Yes [id number] TAKE 1 [facility] 300 mg 2-27 CAPSULE BY ity of capsule 00:00: MOUTH TWICE Medical DAILY Branch GABAPENTIN 2021-1 Yes [id number] TAKE 1 [facility] 300 mg 2-27 CAPSULE BY ity of capsule 00:00: MOUTH TWICE Medical DAILY Branch GABAPENTIN 2021-1 Yes [id number] TAKE 1 [facility] 300 mg 2-27 CAPSULE BY ity of capsule 00:00: MOUTH TWICE Medical DAILY Branch GABAPENTIN 2021-1 Yes [id number] TAKE 1 [facility] 300 mg 2-27 CAPSULE BY ity of capsule 00:00: MOUTH TWICE Medical DAILY Branch GABAPENTIN 202-1 Yes [id number] TAKE 1 [facility] 300 mg 2-27 CAPSULE BY ity of capsule 00:00: MOUTH TWICE Medical DAILY Branch GABAPENTIN 2021-1 Yes [id number] TAKE 1 [facility] 300 mg 2-27 CAPSULE BY ity of capsule 00:00: MOUTH TWICE Medical DAILY Branch GABAPENTIN 2021-1 Yes [id number] TAKE 1 [facility] 300 mg 2-27 CAPSULE BY ity of capsule 00:00: MOUTH TWICE Medical DAILY Branch GABAPENTIN 2021-1 Yes [id number] TAKE 1 [facility] 300 mg 2-27 CAPSULE BY ity of capsule 00:00: MOUTH TWICE Medical DAILY Branch GABAPENTIN 2021-1 Yes [id number] TAKE 1 [facility] 300 mg 2-27 CAPSULE BY ity of capsule 00:00: MOUTH TWICE Medical DAILY Branch GABAPENTIN 2021-1 Yes [id number] TAKE 1 [facility] 300 mg 2-27 CAPSULE BY ity of capsule 00:00: MOUTH TWICE Medical DAILY Branch GABAPENTIN 2021-1 Yes [id number] TAKE 1 [facility] 300 mg 2-27 CAPSULE BY ity of capsule 00:00: MOUTH TWICE Medical DAILY Branch GABAPENTIN 2021-1 Yes [id number] TAKE 1 [facility] 300 mg 2-27 CAPSULE BY ity of capsule 00:00: MOUTH TWICE Medical DAILY Branch GABAPENTIN 2021-1 Yes [id number] TAKE 1 [facility] 300 mg 2-27 CAPSULE BY ity of capsule 00:00: MOUTH TWICE Medical DAILY Branch GABAPENTIN 2021-1 Yes [id number] TAKE 1 [facility] 300 mg 2-27 CAPSULE BY ity of capsule 00:00: MOUTH [place] TWICE Medical DAILY Branch GABAPENTIN 2020- Yes [id number] TAKE 1 [facility] 300 mg 2-27 CAPSULE BY ity of capsule 00:00: MOUTH [place] TWICE Medical DAILY Branch GABAPENTIN 2020- Yes [id number] TAKE 1 [facility] 300 mg 2-27 CAPSULE BY ity of capsule 00:00: MOUTH [place] TWICE Medical DAILY Branch GABAPENTIN 2020-2021- No [id number] TAKE 1 [facility] 300 mg 2-27 10-11 CAPSULE BY ity of capsule 00:00: 00:00 MOUTH [place] 00 :00 TWICE Medical DAILY Branch GABAPENTIN 2020-2021- No [id number] TAKE 1 [facility] 300 mg 2-27 10-11 CAPSULE BY ity of capsule 00:00: 00:00 MOUTH [place] 00 :00 TWICE Medical DAILY Branch GABAPENTIN 2020-2021- No [id number] TAKE 1 [facility] 300 mg 2-27 10-11 CAPSULE BY ity of capsule 00:00: 00:00 [facility] 00 :00 TWICE Medical DAILY Branch GABAPENTIN 2020-2021- No [id number] TAKE 1 [facility] 300 mg 2-27 10-11 CAPSULE BY ity of capsule 00:00: 00:00 MOUTH [place] 00 :00 TWICE Medical DAILY Branch OMEPRAZOLE 2020- Yes [id number] TAKE 1 [facility] 40 mg 2-16 CAPSULE BY ity of capsule 00:00: [facility] DAILY Medical Branch OMEPRAZOLE 2020- Yes [id number] TAKE 1 [facility] 40 mg 2-16 CAPSULE BY ity of capsule 00:00: [facility] DAILY Medical Branch OMEPRAZOLE 2020- Yes [id number] TAKE 1 [facility] 40 mg 2-16 CAPSULE BY ity of capsule 00:00: [facility] DAILY Medical Branch OMEPRAZOLE 2020- Yes [id number] TAKE 1 [facility] 40 mg 2-16 CAPSULE BY ity of capsule 00:00: MOUTH [place] DAILY Medical Branch OMEPRAZOLE 2020- Yes [id number] TAKE 1 [facility] 40 mg 2-16 CAPSULE BY ity of capsule 00:00: [facility] DAILY Medical Branch OMEPRAZOLE 2020- Yes [id number] TAKE 1 [facility] 40 mg 2-16 CAPSULE BY ity of capsule 00:00: [facility] DAILY Medical Branch OMEPRAZOLE 2020- Yes [id number] TAKE 1 [facility] 40 mg 2-16 CAPSULE BY ity of capsule 00:00: [facility] DAILY Medical Branch OMEPRAZOLE 2020- Yes [id number] TAKE 1 [facility] 40 mg 2-16 CAPSULE BY ity of capsule 00:00: [facility] DAILY Medical Branch OMEPRAZOLE 2020- Yes [id number] TAKE 1 [facility] 40 mg 2-16 CAPSULE BY ity of capsule 00:00: [facility] DAILY Medical Branch OMEPRAZOLE 2020- Yes [id number] TAKE 1 [facility] 40 mg 2-16 CAPSULE BY ity of capsule 00:00: [facility] DAILY Medical Branch OMEPRAZOLE 2020- Yes [id number] TAKE 1 [facility] 40 mg 2-16 CAPSULE BY ity of capsule 00:00: [facility] DAILY Medical Branch OMEPRAZOLE 2020- Yes [id number] TAKE 1 [facility] 40 mg 2-16 CAPSULE BY ity of capsule 00:00: [facility] DAILY Medical Branch OMEPRAZOLE 2020-09 Yes [id number] TAKE 1 [facility] 40 mg 2-16 CAPSULE BY ity of capsule 00:00: [facility] DAILY Medical Branch OMEPRAZOLE 2020- Yes [id number] TAKE 1 [facility] 40 mg 2-16 CAPSULE BY ity of capsule 00:00: [facility] DAILY Medical Branch OMEPRAZOLE 2020- Yes [id number] TAKE 1 [facility] 40 mg 2-16 CAPSULE BY ity of capsule 00:00: [facility] DAILY Medical Branch OMEPRAZOLE 2020- Yes [id number] TAKE 1 [facility] 40 mg 2-16 CAPSULE BY ity of capsule 00:00: [facility] DAILY Medical Branch OMEPRAZOLE 2020- Yes [id number] TAKE 1 [facility] 40 mg 2-16 CAPSULE BY ity of capsule 00:00: [facility] DAILY Medical Branch OMEPRAZOLE 2020- Yes [id number] TAKE 1 [facility] 40 mg 2-16 CAPSULE BY ity of capsule 00:00: [facility] DAILY Medical Branch OMEPRAZOLE 2020-2021- No [id number] TAKE 1 [facility] 40 mg 2-16 10-11 CAPSULE BY ity of capsule 00:00: 00:00 [facility] 00 :00 DAILY Medical Branch OMEPRAZOLE 2020-2021- No [id number] TAKE 1 [facility] 40 mg 2-16 10-11 CAPSULE BY ity of capsule 00:00: 00:00 [facility] 00 :00 DAILY Medical Branch OMEPRAZOLE 2020-09- No [id number] TAKE 1 [facility] 40 mg 2-16 10-11 CAPSULE BY ity of capsule 00:00: 00:00 MOUTH [place] 00 :00 DAILY Medical Branch OMEPRAZOLE 2020-09- No [id number] TAKE 1 [facility] 40 mg 2-16 10-11 CAPSULE BY ity of capsule 00:00: 00:00 MOUTH [place] 00 :00 DAILY Medical Branch fluticasone 2020-09 Yes [id number] 1{spray Use 1-2 [facility] propionate 2-15 } Sprays in ity of 50 00:00: each [place] mcg/actuati 00 nostril Medic al on nasal daily. Branch spray fluticasone 2020-09 Yes [id number] 1{spray Use 1-2 [facility] propionate 2-15 } Sprays in ity of 50 00:00: each [place] mcg/actuati 00 nostril Medic al on nasal daily. Branch spray fluticasone 2020-09 Yes [id number] 1{spray Use 1-2 [facility] propionate 2-15 } Sprays in ity of 50 00:00: each [place] mcg/actuati 00 nostril Medic al on nasal daily. Branch spray fluticasone 2020-09 Yes [id number] 1{spray Use 1-2 [facility] propionate 2-15 } Sprays in ity of 50 00:00: each [place] mcg/actuati 00 nostril Medic al on nasal daily. Branch spray fluticasone 2020-09 Yes [id number] 1{spray Use 1-2 [facility] propionate 2-15 } Sprays in ity of 50 00:00: each [place] mcg/actuati 00 nostril Medic al on nasal daily. Branch spray fluticasone 2020-09 Yes [id number] 1{spray Use 1-2 [facility] propionate 2-15 } Sprays in ity of 50 00:00: each [place] mcg/actuati 00 nostril Medic al on nasal daily. Branch spray fluticasone 2020-09 Yes [id number] 1{spray Use 1-2 [facility] propionate 2-15 } Sprays in ity of 50 00:00: each [place] mcg/actuati 00 nostril Medic al on nasal daily. Branch spray fluticasone 2020-09 Yes [id number] 1{spray Use 1-2 [facility] propionate 2-15 } Sprays in ity of 50 00:00: each [place] mcg/actuati 00 nostril Medic al on nasal daily. Branch spray fluticasone 2020-09 Yes [id number] 1{spray Use 1-2 [facility] propionate 2-15 } Sprays in ity of 50 00:00: each [place] mcg/actuati 00 nostril Medic al on nasal daily. Branch spray fluticasone 2020-09 Yes [id number] 1{spray Use 1-2 [facility] propionate 2-15 } Sprays in ity of 50 00:00: each [place] mcg/actuati 00 nostril Medic al on nasal daily. Branch spray fluticasone 2020-09 Yes [id number] 1{spray Use 1-2 [facility] propionate 2-15 } Sprays in ity of 50 00:00: each [place] mcg/actuati 00 nostril Medic al on nasal daily. Branch spray fluticasone 2020-09 Yes [id number] 1{spray Use 1-2 [facility] propionate 2-15 } Sprays in ity of 50 00:00: each [place] mcg/actuati 00 nostril Medic al on nasal daily. Branch spray fluticasone 2020-09 Yes [id number] 1{spray Use 1-2 [facility] propionate 2-15 } Sprays in ity of 50 00:00: each [place] mcg/actuati 00 nostril Medic al on nasal daily. Branch spray fluticasone 2020-09 Yes [id number] 1{spray Use 1-2 [facility] propionate 2-15 } Sprays in ity of 50 00:00: each [place] mcg/actuati 00 nostril Medic al on nasal daily. Branch spray fluticasone 2020-09 Yes [id number] 1{spray Use 1-2 [facility] propionate 2-15 } Sprays in ity of 50 00:00: each [place] mcg/actuati 00 nostril Medic al on nasal daily. Branch spray fluticasone 2020-09 Yes [id number] 1{spray Use 1-2 [facility] propionate 2-15 } Sprays in ity of 50 00:00: each [place] mcg/actuati 00 nostril Medic al on nasal daily. Branch spray fluticasone 2020-09 Yes [id number] 1{spray Use 1-2 [facility] propionate 2-15 } Sprays in ity of 50 00:00: each [place] mcg/actuati 00 nostril Medic al on nasal daily. Branch spray fluticasone 2020-09 Yes [id number] 1{spray Use 1-2 [facility] propionate 2-15 } Sprays in ity of 50 00:00: each [place] mcg/actuati 00 nostril Medic al on nasal daily. Branch spray fluticasone 2020-09- No [id number] 1{spray Use 1-2 [facility] propionate 2-15 10-11 } Sprays in ity of 50 00:00: 00:00 each [place] mcg/actuati 00 :00 nostril Medic al on nasal daily. Branch spray fluticasone 2020-09- No [id number] 1{spray Use 1-2 [facility] propionate 2-15 10-11 } Sprays in ity of 50 00:00: 00:00 each [place] mcg/actuati 00 :00 nostril Medic al on nasal daily. Branch spray fluticasone 2020-09- No [id number] 1{spray Use 1-2 [facility] propionate 2-15 10-11 } Sprays in ity of 50 00:00: 00:00 each [place] mcg/actuati 00 :00 nostril Medic al on nasal daily. Branch spray fluticasone 2020-09- No [id number] 1{spray Use 1-2 [facility] propionate 2-15 10-11 } Sprays in ity of 50 00:00: 00:00 each [place] mcg/actuati 00 :00 nostril Medic al on nasal daily. Branch spray peg-electro 2020-09- No Take as Un pippa almonte 11-03 directed ity o f (GOLYTELY) 00:00: 00:00 [place] [id number] 00 :00 Medical .74 -5.86 Branch gram solution polyethylen 2020-09 Yes [id number] 17g Take 17 g Univers e glycol 1-19 by mouth ity of 3350 17 00:00: daily. [place] gram/dose 00 with 8oz Medica l powder of Branch beverage. polyethylen 2020-09 Yes [id number] 17g Take 17 g Univers e glycol 1-19 by mouth ity of 3350 17 00:00: daily. [place] gram/dose 00 with 8oz Medica l powder of Branch beverage. polyethylen 2020-09 Yes [id number] 17g Take 17 g Univers e glycol 1-19 by mouth ity of 3350 17 00:00: daily. [place] gram/dose 00 with 8oz Medica l powder of Branch beverage. polyethylen 2020-09 Yes [id number] 17g Take 17 g Univers e glycol 1-19 by mouth ity of 3350 17 00:00: daily. Mix [place] gram/dose 00 with 8oz Medica l powder of Branch beverage. polyethylen 2020-09 Yes [id number] 17g Take 17 g Univers e glycol 1-19 by mouth ity of 3350 17 00:00: daily. [place] gram/dose 00 with 8oz Medica l powder of Branch beverage. polyethylen 2020-09 Yes [id number] 17g Take 17 g Univers e glycol 1-19 by mouth ity of 3350 17 00:00: daily. [place] gram/dose 00 with 8oz Medica l powder of Branch beverage. polyethylen 2020-09 Yes [id number] 17g Take 17 g Univers e glycol 1-19 by mouth ity of 3350 17 00:00: daily. [place] gram/dose 00 with 8oz Medica l powder of Branch beverage. polyethylen 2020-09 Yes [id number] 17g Take 17 g Univers e glycol 1-19 by mouth ity of 3350 17 00:00: daily. [place] gram/dose 00 with 8oz Medica l powder of Branch beverage. polyethylen 2020-09 Yes [id number] 17g Take 17 g Univers e glycol 1-19 by mouth ity of 3350 17 00:00: daily. [place] gram/dose 00 with 8oz Medica l powder of Branch beverage. polyethylen 2020-09 Yes [id number] 17g Take 17 g Univers e glycol 1-19 by mouth ity of 3350 17 00:00: daily. [place] gram/dose 00 with 8oz Medica l powder of Branch beverage. polyethylen 2020-09 Yes [id number] 17g Take 17 g Univers e glycol 1-19 by mouth ity of 3350 17 00:00: daily. Mix [place] gram/dose 00 with 8oz Medica l powder of Branch beverage. polyethylen 2020-09 Yes [id number] 17g Take 17 g Univers e glycol 1-19 by mouth ity of 3350 17 00:00: daily. [place] gram/dose 00 with 8oz Medica l powder of Branch beverage. polyethylen 2020-09 Yes [id number] 17g Take 17 g Univers e glycol 1-19 by mouth ity of 3350 17 00:00: daily. [place] gram/dose 00 with 8oz Medica l powder of Branch beverage. polyethylen 2020-09 Yes [id number] 17g Take 17 g Univers e glycol 1-19 by mouth ity of 3350 17 00:00: daily. Mix [place] gram/dose 00 with 8oz Medica l powder of Branch beverage. polyethylen 2020-09 Yes [id number] 17g Take 17 g Univers e glycol 1-19 by mouth ity of 3350 17 00:00: daily. Mix [place] gram/dose 00 with 8oz Medica l powder of Branch beverage. polyethylen 2020-09 Yes [id number] 17g Take 17 g Univers e glycol 1-19 by mouth ity of 3350 17 00:00: daily. [place] gram/dose 00 with 8oz Medica l powder of Branch beverage. polyethylen 2020-09 Yes [id number] 17g Take 17 g Univers e glycol 1-19 by mouth ity of 3350 17 00:00: daily. Mix [place] gram/dose 00 with 8oz Medica l powder of Branch beverage. polyethylen 2020-09 Yes [id number] 17g Take 17 g Univers e glycol 1-19 by mouth ity of 3350 17 00:00: daily. Mix [place] gram/dose 00 with 8oz Medica l powder of Branch beverage. polyethylen 2020-09 Yes [id number] 17g Take 17 g Univers e glycol 1-19 by mouth ity of 3350 17 00:00: daily. Mix [place] gram/dose 00 with 8oz Medica l powder of Branch beverage. polyethylen 2020-09 Yes [id number] 17g Take 17 g Univers e glycol 1-19 by mouth ity of 3350 17 00:00: daily. Mix [place] gram/dose 00 with 8oz Medica l powder of Branch beverage. polyethylen 2020-09 Yes [id number] 17g Take 17 g Univers e glycol 1-19 by mouth ity of 3350 17 00:00: daily. Mix [place] gram/dose 00 with 8oz Medica l powder of Branch beverage. polyethylen 2020-09 Yes [id number] 17g Take 17 g Univers e glycol 1-19 by mouth ity of 3350 17 00:00: daily. Mix [place] gram/dose 00 with 8oz Medica l powder of Branch beverage. polyethylen 2020-09 Yes [id number] 17g Take 17 g Univers e glycol 1-19 by mouth ity of 3350 17 00:00: daily. Mix [place] gram/dose 00 with 8oz Medica l powder of Branch beverage. polyethylen 2020-09 Yes [id number] 17g Take 17 g Univers e glycol 1-19 by mouth ity of 3350 17 00:00: daily. Mix [place] gram/dose 00 with 8oz Medica l powder of Branch beverage. polyethylen 2020-09 Yes [id number] 17g Take 17 g Univers e glycol 1-19 by mouth ity of 3350 17 00:00: daily. Mix [place] gram/dose 00 with 8oz Medica l powder of Branch beverage. polyethylen 2020-09 Yes [id number] 17g Take 17 g Univers e glycol 1-19 by mouth ity of 3350 17 00:00: daily. Mix [place] gram/dose 00 with 8oz Medica l powder of Branch beverage. polyethylen 2020-09 Yes [id number] 17g Take 17 g Univers e glycol 1-19 by mouth ity of 3350 17 00:00: daily. Mix [place] gram/dose 00 with 8oz Medica l powder of Branch beverage. polyethylen 2020-09 Yes [id number] 17g Take 17 g Univers e glycol 1-19 by mouth ity of 3350 17 00:00: daily. Mix [place] gram/dose 00 with 8oz Medica l powder of Branch beverage. polyethylen 2020-09 Yes [id number] 17g Take 17 g Univers e glycol 1-19 by mouth ity of 3350 17 00:00: daily. Mix [place] gram/dose 00 with 8oz Medica l powder of Branch beverage. polyethylen 2020-09 Yes [id number] 17g Take 17 g Univers e glycol 1-19 by mouth ity of 3350 17 00:00: daily. Mix [place] gram/dose 00 with 8oz Medica l powder of Branch beverage. polyethylen 2020-09 Yes [id number] 17g Take 17 g Univers e glycol 1-19 by mouth ity of 3350 17 00:00: daily. Mix [place] gram/dose 00 with 8oz Medica l powder of Branch beverage. polyethylen 2020-09 Yes [id number] 17g Take 17 g Univers e glycol 1-19 by mouth ity of 3350 17 00:00: daily. Mix [place] gram/dose 00 with 8oz Medica l powder of Branch beverage. polyethylen 2020-09 Yes [id number] 17g Take 17 g Univers e glycol 1-19 by mouth ity of 3350 17 00:00: daily. Mix [place] gram/dose 00 with 8oz Medica l powder of Branch beverage. polyethylen 2020-09 Yes [id number] 17g Take 17 g Univers e glycol 1-19 by mouth ity of 3350 17 00:00: daily. Mix [place] gram/dose 00 with 8oz Medica l powder of Branch beverage. polyethylen 2020-09 Yes [id number] 17g Take 17 g Univers e glycol 1-19 by mouth ity of 3350 17 00:00: daily. Mix [place] gram/dose 00 with 8oz Medica l powder of Branch beverage. polyethylen 2020-09 Yes [id number] 17g Take 17 g Univers e glycol 1-19 by mouth ity of 3350 17 00:00: daily. Mix [place] gram/dose 00 with 8oz Medica l powder of Branch beverage. polyethylen 2020-09 Yes [id number] 17g Take 17 g Univers e glycol 1-19 by mouth ity of 3350 17 00:00: daily. Mix [place] gram/dose 00 with 8oz Medica l powder of Branch beverage. polyethylen 2020-09 Yes [id number] 17g Take 17 g Univers e glycol 1-19 by mouth ity of 3350 17 00:00: daily. Mix [place] gram/dose 00 with 8oz Medica l powder of Branch beverage. polyethylen 2020-09 Yes [id number] 17g Take 17 g [facility] e glycol 1-19 by mouth ity of 3350 17 00:00: daily. Mix [place] gram/dose 00 with 8oz Medica l powder of Branch beverage. polyethylen 2020-09 Yes [id number] 17g Take 17 g Univers e glycol 1-19 by mouth ity of 3350 17 00:00: daily. Mix [place] gram/dose 00 with 8oz Medica l powder of Branch beverage. polyethylen 2020-09 Yes [id number] 17g Take 17 g Univers e glycol 1-19 by mouth ity of 3350 17 00:00: daily. Mix [place] gram/dose 00 with 8oz Medica l powder of Branch beverage. polyethylen 2020-09 Yes [id number] 17g Take 17 g Univers e glycol 1-19 by mouth ity of 3350 17 00:00: daily. Mix [place] gram/dose 00 with 8oz Medica l powder of Branch beverage. polyethylen 2020-09 Yes [id number] 17g Take 17 g Univers e glycol 1-19 by mouth ity of 3350 17 00:00: daily. Mix [place] gram/dose 00 with 8oz Medica l powder of Branch beverage. polyethylen 2020-09 Yes [id number] 17g Take 17 g Univers e glycol 1-19 by mouth ity of 3350 17 00:00: daily. Mix [place] gram/dose 00 with 8oz Medica l powder of Branch beverage. polyethylen 2020-09 Yes [id number] 17g Take 17 g Univers e glycol 1-19 by mouth ity of 3350 17 00:00: daily. Mix [place] gram/dose 00 with 8oz Medica l powder of Branch beverage. polyethylen 2020-09 Yes [id number] 17g Take 17 g [facility] e glycol 1-19 by mouth ity of 3350 17 00:00: daily. Mix [place] gram/dose 00 with 8oz Medica l powder of Branch beverage. polyethylen 2020-09 Yes [id number] 17g Take 17 g [facility] e glycol 1-19 by mouth ity of 3350 17 00:00: daily. Mix [place] gram/dose 00 with 8oz Medica l powder of Branch beverage. polyethylen 2020-09 Yes [id number] 17g Take 17 g [facility] e glycol 1-19 by mouth ity of 3350 17 00:00: daily. Mix [place] gram/dose 00 with 8oz Medica l powder of Branch beverage. polyethylen 2020-09 Yes [id number] 17g Take 17 g [facility] e glycol 1-19 by mouth ity of 3350 17 00:00: daily. Mix [place] gram/dose 00 with 8oz Medica l powder of Branch beverage. polyethylen 2020-09 Yes [id number] 17g Take 17 g [facility] e glycol 1-19 by mouth ity of 3350 17 00:00: daily. Mix [place] gram/dose 00 with 8oz Medica l powder of Branch beverage. polyethylen 2020-09 Yes [id number] 17g Take 17 g Univers e glycol 1-19 by mouth ity of 3350 17 00:00: daily. Mix [place] gram/dose 00 with 8oz Medica l powder of Branch beverage. polyethylen 2020-09 Yes [id number] 17g Take 17 g Univers e glycol 1-19 by mouth ity of 3350 17 00:00: daily. Mix [place] gram/dose 00 with 8oz Medica l powder of [facility] beverage. polyethylen 2020-09 Yes [id number] 17g Take 17 g [facility] glycol 1-19 by mouth ity of 3350 17 00:00: daily. [place] gram/dose 00 with 8oz [facility] powder of [facility] beverage. polyethylen 2020-09 Yes [id number] 17g Take 17 g [facility] glycol 1-19 by mouth ity of 3350 17 00:00: daily. [place] gram/dose 00 with 8oz [facility] powder of [facility] beverage. polyethylen 2020-09 Yes [id number] 17g Take 17 g [facility] glycol 1-19 by mouth ity of 3350 17 00:00: daily. [place] gram/dose 00 with 8oz [facility] powder of [facility] beverage. polyethylen 2020-09 Yes [id number] 17g Take 17 g [facility] glycol 1-19 by mouth ity of 3350 17 00:00: daily. [place] gram/dose 00 with 8oz [facility] powder of [facility] beverage. polyethylen 2020-09 Yes [id number] 17g Take 17 g [facility] glycol 1-19 by mouth ity of 3350 17 00:00: daily. [place] gram/dose 00 with 8oz [facility] powder of [facility] beverage. polyethylen 2020-09 Yes [id number] 17g Take 17 g [facility] glycol 1-19 by mouth ity of 3350 17 00:00: daily. [place] gram/dose 00 with 8oz [facility] powder of [facility] beverage. polyethylen 2020-09 Yes [id number] 17g Take 17 g [facility] glycol 1-19 by mouth ity of 3350 17 00:00: daily. [place] gram/dose 00 with 8oz [facility] powder of [facility] beverage. polyethylen 2020-09 Yes [id number] 17g Take 17 g [facility] glycol 1-19 by mouth ity of 3350 17 00:00: daily. [place] gram/dose 00 with 8oz [facility] powder of [facility] beverage. polyethylen 2020-09 Yes [id number] 17g Take 17 g [facility] glycol 1-19 by mouth ity of 3350 17 00:00: daily. [place] gram/dose 00 with 8oz [facility] powder of [facility] beverage. polyethylen 2020-09 Yes [id number] 17g Take 17 g [facility] glycol 1-19 by mouth ity of 3350 17 00:00: daily. [place] gram/dose 00 with 8oz [facility] powder of [facility] beverage. polyethylen 2020-09 Yes [id number] 17g Take 17 g [facility] glycol 1-19 by mouth ity of 3350 17 00:00: daily. [place] gram/dose 00 with 8oz [facility] powder of [facility] beverage. polyethylen 2020-09 Yes [id number] 17g Take 17 g [facility] glycol 1-19 by mouth ity of 3350 17 00:00: daily. [place] gram/dose 00 with 8oz [facility] powder of [facility] beverage. polyethylen 2020-09 Yes [id number] 17g Take 17 g [facility] glycol 1-19 by mouth ity of 3350 17 00:00: daily. [place] gram/dose 00 with 8oz [facility] powder of [facility] beverage. polyethylen 2020-09 Yes [id number] 17g Take 17 g [facility] glycol 1-19 by mouth ity of 3350 17 00:00: daily. [place] gram/dose 00 with 8oz [facility] powder of [facility] beverage. polyethylen 2020-09 Yes [id number] 17g Take 17 g [facility] glycol 1-19 by mouth ity of 3350 17 00:00: daily. [place] gram/dose 00 with 8oz [facility] powder of [facility] beverage. polyethylen 2020-09 Yes [id number] 17g Take 17 g [facility] glycol 1-19 by mouth ity of 3350 17 00:00: daily. [place] gram/dose 00 with 8oz [facility] powder of [facility] beverage. polyethylen 2020-09 Yes [id number] 17g Take 17 g [facility] glycol 1-19 by mouth ity of 3350 17 00:00: daily. [place] gram/dose 00 with 8oz [facility] powder of [facility] beverage. polyethylen 2020-09 Yes [id number] 17g Take 17 g [facility] glycol 1-19 by mouth ity of 3350 17 00:00: daily. [place] gram/dose 00 with 8oz [facility] powder of [facility] beverage. polyethylen 2020-09 Yes [id number] 17g Take 17 g [facility] glycol 1-19 by mouth ity of 3350 17 00:00: daily. [place] gram/dose 00 with 8oz [facility] powder of [facility] beverage. polyethylen 2020-09 Yes [id number] 17g Take 17 g [facility] glycol 1-19 by mouth ity of 3350 17 00:00: daily. Mix [place] gram/dose 00 with 8oz [facility] powder of [facility] beverage. polyethylen 2020-09 Yes [id number] 17g Take 17 g [facility] glycol 1-19 by mouth ity of 3350 17 00:00: daily. [place] gram/dose 00 with 8oz [facility] powder of [facility] beverage. polyethylen 2020-09 Yes [id number] 17g Take 17 g [facility] glycol 1-19 by mouth ity of 3350 17 00:00: daily. Mix [place] gram/dose 00 with 8oz [facility] powder of [facility] beverage. polyethylen 2020-09 Yes [id number] 17g Take 17 g [facility] glycol 1-19 by mouth ity of 3350 17 00:00: daily. Mix [place] gram/dose 00 with 8oz [facility] powder of [facility] beverage. polyethylen 2020-09 Yes [id number] 17g Take 17 g [facility] glycol 1-19 by mouth ity of 3350 17 00:00: daily. [place] gram/dose 00 with 8oz [facility] powder of [facility] beverage. polyethylen 2020-09 Yes [id number] 17g Take 17 g [facility] glycol 1-19 by mouth ity of 3350 17 00:00: daily. [place] gram/dose 00 with 8oz [facility] powder of [facility] beverage. polyethylen 2020-09 Yes [id number] 17g Take 17 g [facility] glycol 1-19 by mouth ity of 3350 17 00:00: daily. [place] gram/dose 00 with 8oz [facility] powder of [facility] beverage. polyethylen 2020-09 Yes [id number] 17g Take 17 g [facility] glycol 1-19 by mouth ity of 3350 17 00:00: daily. [place] gram/dose 00 with 8oz [facility] powder of [facility] beverage. polyethylen 2020-09 Yes [id number] 17g Take 17 g [facility] glycol 1-19 by mouth ity of 3350 17 00:00: daily. [place] gram/dose 00 with 8oz [facility] powder of [facility] beverage. polyethylen 2020-09 Yes [id number] 17g Take 17 g [facility] glycol 1-19 by mouth ity of 3350 17 00:00: daily. [place] gram/dose 00 with 8oz [facility] powder of [facility] beverage. polyethylen 2020-09 Yes [id number] 17g Take 17 g [facility] glycol 1-19 by mouth ity of 3350 17 00:00: daily. [place] gram/dose 00 with 8oz [facility] powder of [facility] beverage. polyethylen 2020-09 Yes [id number] 17g Take 17 g [facility] glycol 1-19 by mouth ity of 3350 17 00:00: daily. [place] gram/dose 00 with 8oz [facility] powder of [facility] beverage. polyethylen 2020-09 Yes [id number] 17g Take 17 g [facility] glycol 1-19 by mouth ity of 3350 17 00:00: daily. [place] gram/dose 00 with 8oz [facility] powder of [facility] beverage. polyethylen 2020-09 Yes [id number] 17g Take 17 g [facility] glycol 1-19 by mouth ity of 3350 17 00:00: daily. [place] gram/dose 00 with 8oz [facility] powder of [facility] beverage. polyethylen 2020-09 Yes [id number] 17g Take 17 g [facility] glycol 1-19 by mouth ity of 3350 17 00:00: daily. [place] gram/dose 00 with 8oz [facility] powder of [facility] beverage. polyethylen 2020-09 Yes [id number] 17g Take 17 g [facility] glycol 1-19 by mouth ity of 3350 17 00:00: daily. [place] gram/dose 00 with 8oz [facility] powder of [facility] beverage. polyethylen 2020-09 Yes [id number] 17g Take 17 g [facility] glycol 1-19 by mouth ity of 3350 17 00:00: daily. Mix [place] gram/dose 00 with 8oz [facility] powder of [facility] beverage. polyethylen 2020-09 Yes [id number] 17g Take 17 g [facility] glycol 1-19 by mouth ity of 3350 17 00:00: daily. Mix [place] gram/dose 00 with 8oz [facility] powder of [facility] beverage. polyethylen 2020-09 Yes [id number] 17g Take 17 g [facility] glycol 1-19 by mouth ity of 3350 17 00:00: daily. Mix [place] gram/dose 00 with 8oz [facility] powder of [facility] beverage. polyethylen 2020-09 Yes [id number] 17g Take 17 g [facility] glycol 1-19 by mouth ity of 3350 17 00:00: daily. [place] gram/dose 00 with 8oz [facility] powder of [facility] beverage. polyethylen 2020-09 Yes [id number] 17g Take 17 g [facility] glycol 1-19 by mouth ity of 3350 17 00:00: daily. [place] gram/dose 00 with 8oz [facility] powder of [facility] beverage. polyethylen 2020-09 Yes [id number] 17g Take 17 g [facility] glycol 1-19 by mouth ity of 3350 17 00:00: daily. [place] gram/dose 00 with 8oz [facility] powder of [facility] beverage. polyethylen 2020-09 Yes [id number] 17g Take 17 g [facility] glycol 1-19 by mouth ity of 3350 17 00:00: daily. [place] gram/dose 00 with 8oz [facility] powder of [facility] beverage. polyethylen 2020-09 Yes [id number] 17g Take 17 g [facility] glycol 1-19 by mouth ity of 3350 17 00:00: daily. [place] gram/dose 00 with 8oz [facility] powder of [facility] beverage. polyethylen 2020-09 Yes [id number] 17g Take 17 g [facility] glycol 1-19 by mouth ity of 3350 17 00:00: daily. [place] gram/dose 00 with 8oz [facility] powder of [facility] beverage. polyethylen 2020-09 Yes [id number] 17g Take 17 g [facility] glycol 1-19 by mouth ity of 3350 17 00:00: daily. [place] gram/dose 00 with 8oz [facility] powder of [facility] beverage. polyethylen 2020-09 Yes [id number] 17g Take 17 g [facility] glycol 1-19 by mouth ity of 3350 17 00:00: daily. [place] gram/dose 00 with 8oz [facility] powder of [facility] beverage. polyethylen 2020-09 Yes [id number] 17g Take 17 g [facility] glycol 1-19 by mouth ity of 3350 17 00:00: daily. [place] gram/dose 00 with 8oz [facility] powder of [facility] beverage. polyethylen 2020-093- No [id number] 17g Take 17 g [facility] glycol 1-19 08-22 by mouth ity of 3350 17 00:00: 00:00 daily. Mix [place] gram/dose 00 :00 with 8oz [facility] powder of [facility] beverage. polyethylen 2020-09- No [id number] 17g Take 17 g [facility] glycol 1-19 08-22 by mouth ity of 3350 17 00:00: 00:00 daily. Mix [place] gram/dose 00 :00 with 8oz [facility] powder of [facility] beverage. polyethylen 2020-09- No [id number] 17g Take 17 g [facility] glycol 1-19 08-22 by mouth ity of 3350 17 00:00: 00:00 daily. [place] gram/dose 00 :00 with 8oz [facility] powder of [facility] beverage. polyethylen 2020-09- No [id number] 17g Take 17 g [facility] glycol 1-19 08-22 by mouth ity of 3350 17 00:00: 00:00 daily. Mix [place] gram/dose 00 :00 with 8oz [facility] powder of [facility] beverage. nystatin 2020-09 Yes [id number] Apply to [facility] 100,000 1-10 area(s) 2 ity of unit/gram 00:00: (two) [place] cream 00 times Medical daily. Branch nystatin 2020-09 Yes [id number] Apply to [facility] 100,000 1-10 area(s) 2 ity of unit/gram 00:00: (two) [place] cream 00 times Medical daily. Branch nystatin 2020-09 Yes [id number] Apply to [facility] 100,000 1-10 area(s) 2 ity of unit/gram 00:00: (two) [place] cream 00 times Medical daily. Branch nystatin 2020-09 Yes [id number] Apply to [facility] 100,000 1-10 area(s) 2 ity of unit/gram 00:00: (two) [place] cream 00 times Medical daily. Branch nystatin 2020- Yes [id number] Apply to [facility] 100,000 1-10 area(s) 2 ity of unit/gram 00:00: (two) [place] cream 00 times Medical daily. Branch nystatin 2020- Yes [id number] Apply to [facility] 100,000 1-10 area(s) 2 ity of unit/gram 00:00: (two) [place] cream 00 times Medical daily. Branch nystatin 2020- Yes [id number] Apply to [facility] 100,000 1-10 area(s) 2 ity of unit/gram 00:00: (two) [place] cream 00 times Medical daily. Branch nystatin 2020- Yes [id number] Apply to [facility] 100,000 1-10 area(s) 2 ity of unit/gram 00:00: (two) [place] cream 00 times Medical daily. Branch nystatin 2020- Yes [id number] Apply to [facility] 100,000 1-10 area(s) 2 ity of unit/gram 00:00: (two) [place] cream 00 times Medical daily. Branch nystatin 2020- Yes [id number] Apply to [facility] 100,000 1-10 area(s) 2 ity of unit/gram 00:00: (two) [place] cream 00 times Medical daily. Branch nystatin 2020- Yes [id number] Apply to [facility] 100,000 1-10 area(s) 2 ity of unit/gram 00:00: (two) [place] cream 00 times Medical daily. Branch nystatin 2020- Yes [id number] Apply to [facility] 100,000 1-10 area(s) 2 ity of unit/gram 00:00: (two) [place] cream 00 times Medical daily. Branch nystatin 2020- Yes [id number] Apply to [facility] 100,000 1-10 area(s) 2 ity of unit/gram 00:00: (two) [place] cream 00 times Medical daily. Branch nystatin 2020- Yes [id number] Apply to [facility] 100,000 1-10 area(s) 2 ity of unit/gram 00:00: (two) [place] cream 00 times Medical daily. Branch nystatin 2020- Yes [id number] Apply to [facility] 100,000 1-10 area(s) 2 ity of unit/gram 00:00: (two) [place] cream 00 times Medical daily. Branch nystatin 2020-1 Yes [id number] Apply to [facility] 100,000 1-10 area(s) 2 ity of unit/gram 00:00: (two) [place] cream 00 times Medical daily. Branch nystatin 2020-1 Yes [id number] Apply to [facility] 100,000 1-10 area(s) 2 ity of unit/gram 00:00: (two) [place] cream 00 times Medical daily. Branch nystatin 2020-09 Yes [id number] Apply to [facility] 100,000 1-10 area(s) 2 ity of unit/gram 00:00: (two) [place] cream 00 times Medical daily. Branch nystatin 2020-09- No [id number] Apply to [facility] 100,000 1-10 10-11 area(s) 2 ity of unit/gram 00:00: 00:00 (two) [place] cream 00 :00 times Medical daily. Branch nystatin 2020-09- No [id number] Apply to [facility] 100,000 1-10 10-11 area(s) 2 ity of unit/gram 00:00: 00:00 (two) [place] cream 00 :00 times Medical daily. Branch nystatin 2020-09- No [id number] Apply to [facility] 100,000 1-10 10-11 area(s) 2 ity of unit/gram 00:00: 00:00 (two) [place] cream 00 :00 times Medical daily. Branch nystatin 2020-09- No [id number] Apply to [facility] 100,000 1-10 10-11 area(s) 2 ity of unit/gram 00:00: 00:00 (two) [place] cream 00 :00 times Medical daily. Branch levothyroxi 2020-09- No [id number] 150ug Take 1 [facility] ne 150 mcg [...] No 20meq Take 2 Uni vers tablet 09-2808 tablets by ity of 00:00: 00:00 mouth [place] 00 :00 daily. Medical Branch metoprolol 2020-09- No [id number] 12.5mg Take 0.5 [facility] tartrate 25 09-28 0531 tablets by i ty of mg tablet 00:00: 00:00 mouth [place] 00 :00 (two) [facility] times Branch daily. ONETOUCH Yes TEST FOUR [facility] ers DELICA [...] Misc 00 DIRECTED Medic al Branch ONETOUCH 2020- Yes TEST FOUR [facility] ers DELICA PLUS [...] Misc 00 DIRECTED Medic al Branch ONDANSETRON 2021- No [id number] TAKE 1 [facility] 4 mg tablet 05-21 03-08 TABLET BY it y of 00:00: 00:00 MOUTH [place] 00 :00 EVERY 8 Medical HOURS Branch NEEDED FOR NAUSEA OR VOMITING ergocalcife 0 Yes [id number] Take 1 [facility] rol, 8-09 capsule by ity of vitamin d2, 00:00: mouth [place] 1,250 mcg 00 weekly. Medical (50,000 Take with Branch unit) food. capsule ergocalcife Yes [id number] Take 1 [facility] rol, 8-09 capsule by ity of vitamin d2, 00:00: mouth [place] 1,250 mcg 00 weekly. Medical (50,000 Take with Branch unit) food. capsule ergocalcife Yes [id number] Take 1 [facility] rol, 8-09 capsule by ity of vitamin d2, 00:00: mouth [place] 1,250 mcg 00 weekly. Medical (50,000 Take with Branch unit) food. capsule ergocalcife 2021-0 Yes [id number] Take 1 [facility] rol, 8-09 capsule by ity of vitamin d2, 00:00: mouth [place] 1,250 mcg 00 weekly. Medical (50,000 Take with Branch unit) food. capsule ergocalcife 2021-0 Yes [id number] Take 1 [facility] rol, 8-09 capsule by ity of vitamin d2, 00:00: mouth [place] 1,250 mcg 00 weekly. Medical (50,000 Take with Branch unit) food. capsule ergocalcife 2021-0 Yes [id number] Take 1 [facility] rol, 8-09 capsule by ity of vitamin d2, 00:00: mouth [place] 1,250 mcg 00 weekly. Medical (50,000 Take with Branch unit) food. capsule ergocalcife 2021-0 Yes [id number] Take 1 [facility] rol, 8-09 capsule by ity of vitamin d2, 00:00: mouth [place] 1,250 mcg 00 weekly. Medical (50,000 Take with Branch unit) food. capsule ergocalcife 2021-0 Yes [id number] Take 1 [facility] rol, 8-09 capsule by ity of vitamin d2, 00:00: mouth [place] 1,250 mcg 00 weekly. Medical (50,000 Take with Branch unit) food. capsule ergocalcife 2021-0 Yes [id number] Take 1 [facility] rol, 8-09 capsule by ity of vitamin d2, 00:00: mouth [place] 1,250 mcg 00 weekly. Medical (50,000 Take with Branch unit) food. capsule ergocalcife 2021-0 Yes [id number] Take 1 [facility] rol, 8-09 capsule by ity of vitamin d2, 00:00: mouth [place] 1,250 mcg 00 weekly. Medical (50,000 Take with Branch unit) food. capsule ergocalcife 2021-0 Yes [id number] Take 1 [facility] rol, 8-09 capsule by ity of vitamin d2, 00:00: mouth [place] 1,250 mcg 00 weekly. Medical (50,000 Take with Branch unit) food. capsule ergocalcife 2021-0 Yes [id number] Take 1 [facility] rol, 8-09 capsule by ity of vitamin d2, 00:00: mouth [place] 1,250 mcg 00 weekly. Medical (50,000 Take with Branch unit) food. capsule ergocalcife 2021-0 Yes [id number] Take 1 [facility] rol, 8-09 capsule by ity of vitamin d2, 00:00: mouth [place] 1,250 mcg 00 weekly. Medical (50,000 Take with Branch unit) food. capsule ergocalcife 2021-0 Yes [id number] Take 1 [facility] rol, 8-09 capsule by ity of vitamin d2, 00:00: mouth [place] 1,250 mcg 00 weekly. Medical (50,000 Take with Branch unit) food. capsule ergocalcife 2021-0 Yes [id number] Take 1 [facility] rol, 8-09 capsule by ity of vitamin d2, 00:00: mouth [place] 1,250 mcg 00 weekly. Medical (50,000 Take with Branch unit) food. capsule ergocalcife 2021-0 Yes [id number] Take 1 [facility] rol, 8-09 capsule by ity of vitamin d2, 00:00: mouth [place] 1,250 mcg 00 weekly. Medical (50,000 Take with Branch unit) food. capsule ergocalcife 2021-0 Yes [id number] Take 1 [facility] rol, 8-09 capsule by ity of vitamin d2, 00:00: mouth [place] 1,250 mcg 00 weekly. Medical (50,000 Take with Branch unit) food. capsule ergocalcife 2021-0 Yes [id number] Take 1 [facility] rol, 8-09 capsule by ity of vitamin d2, 00:00: mouth [place] 1,250 mcg 00 weekly. Medical (50,000 Take with Branch unit) food. capsule ergocalcife 2021-0 Yes [id number] Take 1 [facility] rol, 8-09 capsule by ity of vitamin d2, 00:00: mouth [place] 1,250 mcg 00 weekly. Medical (50,000 Take with Branch unit) food. capsule ergocalcife 2021-0 Yes [id number] Take 1 [facility] rol, 8-09 capsule by ity of vitamin d2, 00:00: mouth [place] 1,250 mcg 00 weekly. Medical (50,000 Take with Branch unit) food. capsule ergocalcife 2021-0 Yes [id number] Take 1 [facility] rol, 8-09 capsule by ity of vitamin d2, 00:00: mouth [place] 1,250 mcg 00 weekly. Medical (50,000 Take with Branch unit) food. capsule ergocalcife 2021-0 Yes [id number] Take 1 [facility] rol, 8-09 capsule by ity of vitamin d2, 00:00: mouth [place] 1,250 mcg 00 weekly. Medical (50,000 Take with Branch unit) food. capsule ergocalcife 2021-0 Yes [id number] Take 1 [facility] rol, 8-09 capsule by ity of vitamin d2, 00:00: mouth [place] 1,250 mcg 00 weekly. Medical (50,000 Take with Branch unit) food. capsule ergocalcife 2021-0 Yes [id number] Take 1 [facility] rol, 8-09 capsule by ity of vitamin d2, 00:00: mouth [place] 1,250 mcg 00 weekly. Medical (50,000 Take with Branch unit) food. capsule ergocalcife 2021-0 Yes [id number] Take 1 [facility] rol, 8-09 capsule by ity of vitamin d2, 00:00: mouth [place] 1,250 mcg 00 weekly. Medical (50,000 Take with Branch unit) food. capsule ergocalcife 2021-0 Yes [id number] Take 1 [facility] rol, 8-09 capsule by ity of vitamin d2, 00:00: mouth [place] 1,250 mcg 00 weekly. Medical (50,000 Take with Branch unit) food. capsule ergocalcife 2021-0 Yes [id number] Take 1 [facility] rol, 8-09 capsule by ity of vitamin d2, 00:00: mouth [place] 1,250 mcg 00 weekly. Medical (50,000 Take with Branch unit) food. capsule ergocalcife 2021-0 Yes [id number] Take 1 [facility] rol, 8-09 capsule by ity of vitamin d2, 00:00: mouth [place] 1,250 mcg 00 weekly. Medical (50,000 Take with Branch unit) food. capsule ergocalcife 2021-0 Yes [id number] Take 1 [facility] rol, 8-09 capsule by ity of vitamin d2, 00:00: mouth [place] 1,250 mcg 00 weekly. Medical (50,000 Take with Branch unit) food. capsule ergocalcife 2021-0 Yes [id number] Take 1 [facility] rol, 8-09 capsule by ity of vitamin d2, 00:00: mouth [place] 1,250 mcg 00 weekly. Medical (50,000 Take with Branch unit) food. capsule ergocalcife 2021-0 Yes [id number] Take 1 [facility] rol, 8-09 capsule by ity of vitamin d2, 00:00: mouth [place] 1,250 mcg 00 weekly. Medical (50,000 Take with Branch unit) food. capsule ergocalcife 2021-0 Yes [id number] Take 1 [facility] rol, 8-09 capsule by ity of vitamin d2, 00:00: mouth [place] 1,250 mcg 00 weekly. Medical (50,000 Take with Branch unit) food. capsule ergocalcife 2021-0 Yes [id number] Take 1 [facility] rol, 8-09 capsule by ity of vitamin d2, 00:00: mouth [place] 1,250 mcg 00 weekly. Medical (50,000 Take with Branch unit) food. capsule ergocalcife 2021-0 Yes [id number] Take 1 [facility] rol, 8-09 capsule by ity of vitamin d2, 00:00: mouth [place] 1,250 mcg 00 weekly. Medical (50,000 Take with Branch unit) food. capsule ergocalcife 2021-0 Yes [id number] Take 1 [facility] rol, 8-09 capsule by ity of vitamin d2, 00:00: mouth [place] 1,250 mcg 00 weekly. Medical (50,000 Take with Branch unit) food. capsule ergocalcife 2021-0 Yes [id number] Take 1 [facility] rol, 8-09 capsule by ity of vitamin d2, 00:00: mouth [place] 1,250 mcg 00 weekly. Medical (50,000 Take with Branch unit) food. capsule ergocalcife 2021-0 Yes [id number] Take 1 [facility] rol, 8-09 capsule by ity of vitamin d2, 00:00: mouth [place] 1,250 mcg 00 weekly. Medical (50,000 Take with Branch unit) food. capsule ergocalcife 2021-0 Yes [id number] Take 1 [facility] rol, 8-09 capsule by ity of vitamin d2, 00:00: mouth [place] 1,250 mcg 00 weekly. Medical (50,000 Take with Branch unit) food. capsule ergocalcife 2021-0 Yes [id number] Take 1 [facility] rol, 8-09 capsule by ity of vitamin d2, 00:00: mouth [place] 1,250 mcg 00 weekly. Medical (50,000 Take with Branch unit) food. capsule ergocalcife 2021-0 Yes [id number] Take 1 [facility] rol, 8-09 capsule by ity of vitamin d2, 00:00: mouth [place] 1,250 mcg 00 weekly. Medical (50,000 Take with Branch unit) food. capsule ergocalcife 2021-0 Yes [id number] Take 1 [facility] rol, 8-09 capsule by ity of vitamin d2, 00:00: mouth [place] 1,250 mcg 00 weekly. Medical (50,000 Take with Branch unit) food. capsule ergocalcife 2021-0 Yes [id number] Take 1 [facility] rol, 8-09 capsule by ity of vitamin d2, 00:00: mouth [place] 1,250 mcg 00 weekly. Medical (50,000 Take with Branch unit) food. capsule ergocalcife 2021-0 Yes [id number] Take 1 [facility] rol, 8-09 capsule by ity of vitamin d2, 00:00: mouth [place] 1,250 mcg 00 weekly. Medical (50,000 Take with Branch unit) food. capsule ergocalcife 2021-0 Yes [id number] Take 1 [facility] rol, 8-09 capsule by ity of vitamin d2, 00:00: mouth [place] 1,250 mcg 00 weekly. Medical (50,000 Take with Branch unit) food. capsule ergocalcife 2021-0 Yes [id number] Take 1 [facility] rol, 8-09 capsule by ity of vitamin d2, 00:00: mouth [place] 1,250 mcg 00 weekly. Medical (50,000 Take with Branch unit) food. capsule ergocalcife 2021-0 Yes [id number] Take 1 [facility] rol, 8-09 capsule by ity of vitamin d2, 00:00: mouth [place] 1,250 mcg 00 weekly. Medical (50,000 Take with Branch unit) food. capsule ergocalcife 2021-0 Yes [id number] Take 1 [facility] rol, 8-09 capsule by ity of vitamin d2, 00:00: mouth [place] 1,250 mcg 00 weekly. Medical (50,000 Take with Branch unit) food. capsule ergocalcife 2021-0 Yes [id number] Take 1 [facility] rol, 8-09 capsule by ity of vitamin d2, 00:00: mouth [place] 1,250 mcg 00 weekly. Medical (50,000 Take with Branch unit) food. capsule ergocalcife 2021-0 Yes [id number] Take 1 [facility] rol, 8-09 capsule by ity of vitamin d2, 00:00: mouth [place] 1,250 mcg 00 weekly. Medical (50,000 Take with Branch unit) food. capsule ergocalcife 2021-0 Yes [id number] Take 1 [facility] rol, 8-09 capsule by ity of vitamin d2, 00:00: mouth [place] 1,250 mcg 00 weekly. Medical (50,000 Take with Branch unit) food. capsule ergocalcife 2021-0 Yes [id number] Take 1 [facility] rol, 8-09 capsule by ity of vitamin d2, 00:00: mouth [place] 1,250 mcg 00 weekly. Medical (50,000 Take with Branch unit) food. capsule ergocalcife 2021-0 Yes [id number] Take 1 [facility] rol, 8-09 capsule by ity of vitamin d2, 00:00: mouth [place] 1,250 mcg 00 weekly. Medical (50,000 Take with Branch unit) food. capsule ergocalcife 2021-0 Yes [id number] Take 1 [facility] rol, 8-09 capsule by ity of vitamin d2, 00:00: mouth [place] 1,250 mcg 00 weekly. Medical (50,000 Take with Branch unit) food. capsule ergocalcife 2021-0 Yes [id number] Take 1 [facility] rol, 8-09 capsule by ity of vitamin d2, 00:00: mouth [place] 1,250 mcg 00 weekly. Medical (50,000 Take with Branch unit) food. capsule ergocalcife 2021-0 Yes [id number] Take 1 [facility] rol, 8-09 capsule by ity of vitamin d2, 00:00: mouth [place] 1,250 mcg 00 weekly. Medical (50,000 Take with Branch unit) food. capsule ergocalcife 2021-0 Yes [id number] Take 1 [facility] rol, 8-09 capsule by ity of vitamin d2, 00:00: mouth [place] 1,250 mcg 00 weekly. Medical (50,000 Take with Branch unit) food. capsule ergocalcife 2021-0 Yes [id number] Take 1 [facility] rol, 8-09 capsule by ity of vitamin d2, 00:00: mouth [place] 1,250 mcg 00 weekly. Medical (50,000 Take with Branch unit) food. capsule ergocalcife 2021-0 Yes [id number] Take 1 [facility] rol, 8-09 capsule by ity of vitamin d2, 00:00: mouth [place] 1,250 mcg 00 weekly. Medical (50,000 Take with Branch unit) food. capsule ergocalcife 2021-0 Yes [id number] Take 1 [facility] rol, 8-09 capsule by ity of vitamin d2, 00:00: mouth [place] 1,250 mcg 00 weekly. Medical (50,000 Take with Branch unit) food. capsule ergocalcife 2021-0 Yes [id number] Take 1 [facility] ro[facility], 8-09 capsule by ity of vitamin d2, 00:00: mouth [place] 1,250 mcg 00 weekly. Medical (50,000 Take with Branch unit) food. capsule ergocalcife 2021-0 Yes [id number] Take 1 [facility] rol, 8-09 capsule by ity of vitamin d2, 00:00: mouth [place] 1,250 mcg 00 weekly. Medical (50,000 Take with Branch unit) food. capsule ergocalcife 2021-0 Yes [id number] Take 1 [facility] rol, 8-09 capsule by ity of vitamin d2, 00:00: mouth [place] 1,250 mcg 00 weekly. Medical (50,000 Take with Branch unit) food. capsule ergocalcife 2021-0 Yes [id number] Take 1 [facility] rol, 8-09 capsule by ity of vitamin d2, 00:00: mouth [place] 1,250 mcg 00 weekly. Medical (50,000 Take with Branch unit) food. capsule ergocalcife 2021-0 Yes [id number] Take 1 [facility] rol, 8-09 capsule by ity of vitamin d2, 00:00: mouth [place] 1,250 mcg 00 weekly. Medical (50,000 Take with Branch unit) food. capsule ergocalcife 2021-0 Yes [id number] Take 1 [facility] rol, 8-09 capsule by ity of vitamin d2, 00:00: mouth [place] 1,250 mcg 00 weekly. Medical (50,000 Take with Branch unit) food. capsule ergocalcife 2021-0 Yes [id number] Take 1 [facility] rol, 8-09 capsule by ity of vitamin d2, 00:00: mouth [place] 1,250 mcg 00 weekly. Medical (50,000 Take with Branch unit) food. capsule ergocalcife 2021-0 Yes [id number] Take 1 [facility] rol, 8-09 capsule by ity of vitamin d2, 00:00: mouth [place] 1,250 mcg 00 weekly. Medical (50,000 Take with Branch unit) food. capsule ergocalcife 2021-0 Yes [id number] Take 1 [facility] rol, 8-09 capsule by ity of vitamin d2, 00:00: mouth [place] 1,250 mcg 00 weekly. Medical (50,000 Take with Branch unit) food. capsule ergocalcife 2021-0 Yes [id number] Take 1 [facility] rol, 8-09 capsule by ity of vitamin d2, 00:00: mouth [place] 1,250 mcg 00 weekly. Medical (50,000 Take with Branch unit) food. capsule ergocalcife 2021-0 Yes [id number] Take 1 [facility] rol, 8-09 capsule by ity of vitamin d2, 00:00: mouth [place] 1,250 mcg 00 weekly. Medical (50,000 Take with Branch unit) food. capsule ergocalcife 2021-0 Yes [id number] Take 1 [facility] rol, 8-09 capsule by ity of vitamin d2, 00:00: mouth [place] 1,250 mcg 00 weekly. Medical (50,000 Take with Branch unit) food. capsule ergocalcife 2021-0 Yes [id number] Take 1 [facility] rol, 8-09 capsule by ity of vitamin d2, 00:00: mouth [place] 1,250 mcg 00 weekly. Medical (50,000 Take with Branch unit) food. capsule ergocalcife 2021-0 Yes [id number] Take 1 [facility] rol, 8-09 capsule by ity of vitamin d2, 00:00: mouth [place] 1,250 mcg 00 weekly. Medical (50,000 Take with Branch unit) food. capsule ergocalcife 2021-0 Yes [id number] Take 1 [facility] rol, 8-09 capsule by ity of vitamin d2, 00:00: mouth [place] 1,250 mcg 00 weekly. Medical (50,000 Take with Branch unit) food. capsule ergocalcife 2021-0 Yes [id number] Take 1 [facility] rol, 8-09 capsule by ity of vitamin d2, 00:00: mouth [place] 1,250 mcg 00 weekly. Medical (50,000 Take with Branch unit) food. capsule ergocalcife 2021-0 Yes [id number] Take 1 [facility] rol, 8-09 capsule by ity of vitamin d2, 00:00: mouth [place] 1,250 mcg 00 weekly. Medical (50,000 Take with Branch unit) food. capsule ergocalcife 2021-0 Yes [id number] Take 1 [facility] rol, 8-09 capsule by ity of vitamin d2, 00:00: mouth [place] 1,250 mcg 00 weekly. Medical (50,000 Take with Branch unit) food. capsule ergocalcife 2021-0 Yes [id number] Take 1 [facility] rol, 8-09 capsule by ity of vitamin d2, 00:00: mouth [place] 1,250 mcg 00 weekly. Medical (50,000 Take with Branch unit) food. capsule ergocalcife 2021-0 Yes [id number] Take 1 [facility] rol, 8-09 capsule by ity of vitamin d2, 00:00: mouth [place] 1,250 mcg 00 weekly. Medical (50,000 Take with Branch unit) food. capsule ergocalcife 2021-0 Yes [id number] Take 1 [facility] rol, 8-09 capsule by ity of vitamin d2, 00:00: mouth [place] 1,250 mcg 00 weekly. Medical (50,000 Take with Branch unit) food. capsule ergocalcife 2021-0 Yes [id number] Take 1 [facility] rol, 8-09 capsule by ity of vitamin d2, 00:00: mouth [place] 1,250 mcg 00 weekly. Medical (50,000 Take with Branch unit) food. capsule ergocalcife 2021-0 Yes [id number] Take 1 [facility] rol, 8-09 capsule by ity of vitamin d2, 00:00: mouth [place] 1,250 mcg 00 weekly. Medical (50,000 Take with Branch unit) food. capsule ergocalcife 2021-0 Yes [id number] Take 1 [facility] rol, 8-09 capsule by ity of vitamin d2, 00:00: mouth [place] 1,250 mcg 00 weekly. Medical (50,000 Take with Branch unit) food. capsule ergocalcife 1-0 Yes [id number] Take 1 [facility] rol, 8-09 capsule by ity of vitamin d2, 00:00: mouth [place] 1,250 mcg 00 weekly. Medical (50,000 Take with Branch unit) food. capsule ergocalcife 2021-0 Yes [id number] Take 1 [facility] rol, 8-09 capsule by ity of vitamin d2, 00:00: mouth [place] 1,250 mcg 00 weekly. Medical (50,000 Take with Branch unit) food. capsule ergocalcife 1-0 Yes [id number] Take 1 [facility] rol, 8-09 capsule by ity of vitamin d2, 00:00: mouth [place] 1,250 mcg 00 weekly. Medical (50,000 Take with Branch unit) food. capsule ergocalcife 1-0 Yes [id number] Take 1 [facility] rol, 8-09 capsule by ity of vitamin d2, 00:00: mouth [place] 1,250 mcg 00 weekly. Medical (50,000 Take with Branch unit) food. capsule ergocalcife 1-0 Yes [id number] Take 1 [facility] rol, 8-09 capsule by ity of vitamin d2, 00:00: mouth [place] 1,250 mcg 00 weekly. Medical (50,000 Take with Branch unit) food. capsule ergocalcife 1-0 3- No [id number] Take 1 [facility] rol, 8-09 05-22 capsule by ity of vitamin d2, 00:00: 00:00 mouth [place] 1,250 mcg 00 :00 weekly. Medical (50,000 Take with Branch unit) food. capsule ergocalcife 1-0 3- No [id number] Take 1 [facility] rol, 8-09 05-22 capsule by ity of vitamin d2, 00:00: 00:00 mouth [place] 1,250 mcg 00 :00 weekly. Medical (50,000 Take with Branch unit) food. capsule ergocalcife 2021-0 2023- No [id number] Take 1 [facility] rol, 05-03-22 capsule by ity of vitamin d2, 00:00: 00:00 mouth [place] 1,250 mcg 00 :00 weekly. Medical (50,000 Take with Branch unit) food. capsule ergocalcife 3- No [id number] Take 1 [facility] rol, 05-03-22 capsule by ity of vitamin d2, 00:00: 00:00 mouth [place] 1[place]250 mcg 00 :00 weekly. Medical (50,000 Take with Branch unit) food. capsule loratadine 0 Yes [id number] 10mg Take 1 [facility] 10 mg 8-05 tablet by ity of tablet 00:00: mouth at [place] [address] bedtime. Medical Branch loratadine 0 Yes [id number] 10mg Take 1 [facility] 10 mg 8-05 tablet by ity of tablet 00:00: mouth at [place] [address] bedtime. Medical Branch loratadine 0 Yes [id number] 10mg Take 1 [facility] 10 mg 8-05 tablet by ity of tablet 00:00: mouth at [place] [address] bedtime. Medical Branch loratadine 0 Yes [id number] 10mg Take 1 [facility] 10 mg 8-05 tablet by ity of tablet 00:00: mouth at [place] [address] bedtime. Medical Branch loratadine 0 Yes [id number] 10mg Take 1 [facility] 10 mg 8-05 tablet by ity of tablet 00:00: mouth at [place] [address] bedtime. Medical Branch loratadine 0 Yes [id number] 10mg Take 1 [facility] 10 mg 8-05 tablet by ity of tablet 00:00: mouth at [place] [address] bedtime. Medical Branch loratadine 0 Yes [id number] 10mg Take 1 [facility] 10 mg 8-05 tablet by ity of tablet 00:00: mouth at [place] [address] bedtime. Medical Branch loratadine 0 Yes [id number] 10mg Take 1 [facility] 10 mg 8-05 tablet by ity of tablet 00:00: mouth at [place] [address] bedtime. Medical Branch loratadine 0 Yes [id number] 10mg Take 1 [facility] 10 mg 8-05 tablet by ity of tablet 00:00: mouth at [place] [address] bedtime. Medical Branch loratadine 0 Yes [id number] 10mg Take 1 [facility] 10 mg 8-05 tablet by ity of tablet 00:00: mouth at [place] [address] bedtime. Medical Branch loratadine 0 Yes [id number] 10mg Take 1 [facility] 10 mg 8-05 tablet by ity of tablet 00:00: mouth at [place] [address] bedtime. Medical Branch loratadine 0 Yes [id number] 10mg Take 1 [facility] 10 mg 8-05 tablet by ity of tablet 00:00: mouth at [place] [address] bedtime. Medical Branch loratadine 0 Yes [id number] 10mg Take 1 [facility] 10 mg 8-05 tablet by ity of tablet 00:00: mouth at [place] [address] bedtime. Medical Branch loratadine 0 Yes [id number] 10mg Take 1 [facility] 10 mg 8-05 tablet by ity of tablet 00:00: mouth at [place] [address] bedtime. Medical Branch loratadine 0 Yes [id number] 10mg Take 1 [facility] 10 mg 8-05 tablet by ity of tablet 00:00: mouth at [place] [address] bedtime. Medical Branch loratadine 0 Yes [id number] 10mg Take 1 [facility] 10 mg 8-05 tablet by ity of tablet 00:00: mouth at [place] [address] bedtime. Medical Branch loratadine 0 Yes [id number] 10mg Take 1 [facility] 10 mg 8-05 tablet by ity of tablet 00:00: mouth at [place] [address] bedtime. Medical Branch loratadine 0 Yes [id number] 10mg Take 1 [facility] 10 mg 8-05 tablet by ity of tablet 00:00: mouth at [place] [address] bedtime. Medical Branch loratadine 0 2021- No [id number] 10mg Take 1 [facility] 10 mg 8-05 10-11 tablet by ity of tablet 00:00: 00:00 mouth at [place] 00 :00 bedtime. Medical Branch loratadine 0 2021- No [id number] 10mg Take 1 [facility] 10 mg 8-05 10-11 tablet by ity of tablet 00:00: 00:00 mouth at [place] 00 :00 bedtime. Medical Branch loratadine 2021- No [id number] 10mg Take 1 [facility] 10 mg 8-05 10-11 tablet by ity of tablet 00:00: 00:00 mouth at [place] 00 :00 bedtime. [facility] Branch loratadine 2021- No [id number] 10mg Take 1 [facility] 10 mg 8-05 10-11 tablet by ity of tablet 00:00: 00:00 mouth at [place] 00 :00 bedtime. Medical Branch Insulin 2019-09 Yes [id number] Use as [facility] [place], 2-17 directed ity of Disposable, 00:00: to inject [place] (PEN 00 insulin Medical NEEDLE) 32 daily; Branch gauge x ICD-10 5/32" Ndle code E11.8 Insulin 2019-09 Yes [id number] Use as [facility] [place], 2-17 directed ity of Disposable, 00:00: to inject [place] (PEN 00 insulin Medical NEEDLE) 32 daily; Branch gauge x ICD-10 5/32" Ndle code E11.8 Insulin 2019-09 Yes [id number] Use as [facility] [place], 2-17 directed ity of Disposable, 00:00: to inject [place] (PEN 00 insulin Medical NEEDLE) 32 daily; Branch gauge x ICD-10 5/32" Ndle code E11.8 Insulin 2019-09 Yes [id number] Use as [facility] [place], 2-17 directed ity of Disposable, 00:00: to inject [place] (PEN 00 insulin Medical NEEDLE) 32 daily; Branch gauge x ICD-10 5/32" Ndle code E11.8 Insulin 2019-09 Yes [id number] Use as [facility] [place], 2-17 directed ity of Disposable, 00:00: to inject [place] (PEN 00 insulin Medical NEEDLE) 32 daily; Branch gauge x ICD-10 5/32" Ndle code E11.8 Insulin 2019-09 Yes [id number] Use as [facility] [place], 2-17 directed ity of Disposable, 00:00: to inject [place] (PEN 00 insulin Medical NEEDLE) 32 daily; Branch gauge x ICD-10 5/32" Ndle code E11.8 Insulin 2019-09 Yes [id number] Use as [facility] [place], 2-17 directed ity of Disposable, 00:00: to inject [place] (PEN 00 insulin Medical NEEDLE) 32 daily; Branch gauge x ICD-10 5/32" Ndle code E11.8 Insulin 2020- Yes [id number] Use as [facility] [place], 2-17 directed ity of Disposable, 00:00: to inject [place] (PEN 00 insulin Medical NEEDLE) 32 daily; Branch gauge x ICD-10 5/32" Ndle code E11.8 Insulin 2020- Yes [id number] Use as [facility] [place], 2-17 directed ity of Disposable, 00:00: to inject [place] (PEN 00 insulin Medical NEEDLE) 32 daily; Branch gauge x ICD-10 5/32" Ndle code E11.8 Insulin 2020 Yes [id number] Use as [facility] [place], 2-17 directed ity of Disposable, 00:00: to inject [place] (PEN 00 insulin Medical NEEDLE) 32 daily; Branch gauge x ICD-10 5/32" Ndle code E11.8 Insulin 2020 Yes [id number] Use as [facility] [place], 2-17 directed ity of Disposable, 00:00: to inject [place] (PEN 00 insulin Medical NEEDLE) 32 daily; Branch gauge x ICD-10 5/32" Ndle code E11.8 Insulin 2019-09 Yes [id number] Use as [facility] [place], 2-17 directed ity of Disposable, 00:00: to inject [place] (PEN 00 insulin Medical NEEDLE) 32 daily; Branch gauge x ICD-10 5/32" Ndle code E11.8 Insulin 2019-09 Yes [id number] Use as [facility] [place], 2-17 directed ity of Disposable, 00:00: to inject [place] (PEN 00 insulin Medical NEEDLE) 32 daily; Branch gauge x ICD-10 5/32" Ndle code E11.8 Insulin 2020 Yes [id number] Use as [facility] [place], 2-17 directed ity of Disposable, 00:00: to inject [place] (PEN 00 insulin Medical NEEDLE) 32 daily; Branch gauge x ICD-10 5/32" Ndle code E11.8 Insulin 2020 Yes [id number] Use as [facility] [place], 2-17 directed ity of Disposable, 00:00: to inject [place] (PEN 00 insulin Medical NEEDLE) 32 daily; Branch gauge x ICD-10 5/32" Ndle code E11.8 Insulin 2019-09 Yes [id number] Use as [facility] [place], 2-17 directed ity of Disposable, 00:00: to inject [place] (PEN 00 insulin Medical NEEDLE) 32 daily; Branch gauge x ICD-10 5/32" Ndle code E11.8 Insulin 2019-09 Yes [id number] Use as [facility] [place], 11-11 directed ity of Disposable, 00:00: to inject [place] (PEN 00 insulin Medical NEEDLE) 32 daily; Branch gauge x ICD-10 5/32" Ndle code E11.8 Insulin 2019-09 Yes [id number] Use as [facility] [place], 11-11 directed ity of Disposable, 00:00: to inject [place] (PEN 00 insulin Medical NEEDLE) 32 daily; Branch gauge x ICD-10 5/32" Ndle code E11.8 Insulin 2019-09- No [id number] Use as [facility] [place], 11-11 directed ity of Disposable, 00:00: 00:00 to inject [place] (PEN 00 :00 insulin Medical NEEDLE) 32 daily; Branch gauge x ICD-10 5/32" Ndle code E11.8 Insulin 2019-09- No [id number] Use as [facility] [place], 11-11 directed ity of Disposable, 00:00: 00:00 to inject [place] (PEN 00 :00 insulin Medical NEEDLE) 32 daily; Branch gauge x ICD-10 5/32" Ndle code E11.8 Insulin 2019-09- No [id number] Use as [facility] [place], 11-11 directed ity of Disposable, 00:00: 00:00 to inject [place] (PEN 00 :00 insulin Medical NEEDLE) 32 daily; Branch gauge x ICD-10 5/32" Ndle code E11.8 Insulin 2019-09- No [id number] Use as [facility] [place], 11-11 directed ity of Disposable, 00:00: 00:00 to inject [place] (PEN 00 :00 insulin Medical NEEDLE) 32 daily; Branch gauge x ICD-10 5/32" Ndle code E11.8 nitroglycer 2019-[id number] 1 [facility] in 0.4 mg 2-15 tablet ity of sublingual 00:00: under the [place] tablet 00 tongue Medical every 5 Branch (five) minutes as needed for Chest pain. nitroglycer 2019-[id number] 1 [facility] in 0.4 mg 2-15 tablet ity of sublingual 00:00: under the [place] tablet 00 tongue Medical every 5 Branch (five) minutes as needed for Chest pain. nitroglycer 2019- Yes [id number] .4mg Place 1 [facility] in 0.4 mg 2-15 tablet ity of sublingual 00:00: under the [place] tablet 00 tongue Medical every 5 Branch (five) minutes as needed for Chest pain. nitroglycer 2019- Yes [id number] .4mg Place 1 [facility] in 0.4 mg 2-15 tablet ity of sublingual 00:00: under the [place] tablet 00 tongue Medical every 5 Branch (five) minutes as needed for Chest pain. nitroglycer 2019- Yes [id number] .4mg Place 1 [facility] in 0.4 mg 2-15 tablet ity of sublingual 00:00: under the [place] tablet 00 tongue Medical every 5 Branch (five) minutes as needed for Chest pain. nitroglycer 2019-[id number] 1 [facility] in 0.4 mg 2-15 tablet ity of sublingual 00:00: under the [place] tablet 00 tongue Medical every 5 Branch (five) minutes as needed for Chest pain. nitroglycer 2019-[id number] 1 [facility] in 0.4 mg 2-15 tablet ity of sublingual 00:00: under the [place] tablet 00 tongue Medical every 5 Branch (five) minutes as needed for Chest pain. nitroglycer 2019-[id number] 1 [facility] in 0.4 mg 2-15 tablet ity of sublingual 00:00: under the [place] tablet 00 tongue Medical every 5 Branch (five) minutes as needed for Chest pain. nitroglycer 2019- Yes [id number] .4mg Place 1 [facility] in 0.4 mg 2-15 tablet ity of sublingual 00:00: under the [place] tablet 00 tongue Medical every 5 Branch (five) minutes as needed for Chest pain. nitroglycer 2019-[id number] 1 [facility] in 0.4 mg 2-15 tablet ity of sublingual 00:00: under the [place] tablet 00 tongue Medical every 5 Branch (five) minutes as needed for Chest pain. nitroglycer 2019- Yes [id number] .4mg Place 1 [facility] in 0.4 mg 2-15 tablet ity of sublingual 00:00: under the [place] tablet 00 tongue Medical every 5 Branch (five) minutes as needed for Chest pain. nitroglycer 2019- Yes [id number] .4mg Place 1 [facility] in 0.4 mg 2-15 tablet ity of sublingual 00:00: under the [place] tablet 00 tongue Medical every 5 Branch (five) minutes as needed for Chest pain. nitroglycer 2019-[id number] 1 [facility] in 0.4 mg 2-15 tablet ity of sublingual 00:00: under the [place] tablet 00 tongue Medical every 5 Branch (five) minutes as needed for Chest pain. nitroglycer 2019- Yes [id number] .4mg Place 1 [facility] in 0.4 mg 2-15 tablet ity of sublingual 00:00: under the [place] tablet 00 tongue Medical every 5 Branch (five) minutes as needed for Chest pain. nitroglycer 2019-[id number] 1 [facility] in 0.4 mg 2-15 tablet ity of sublingual 00:00: under the [place] tablet 00 tongue Medical every 5 Branch (five) minutes as needed for Chest pain. nitroglycer 2019- Yes [id number] .4mg Place 1 [facility] in 0.4 mg 2-15 tablet ity of sublingual 00:00: under the [place] tablet 00 tongue Medical every 5 Branch (five) minutes as needed for Chest pain. nitroglycer 2019-[id number] 1 [facility] in 0.4 mg 2-15 tablet ity of sublingual 00:00: under the [place] tablet 00 tongue Medical every 5 Branch (five) minutes as needed for Chest pain. nitroglycer 2019-[id number] 1 [facility] in 0.4 mg 2-15 tablet ity of sublingual 00:00: under the [place] tablet 00 tongue Medical every 5 Branch (five) minutes as needed for Chest pain. nitroglycer 2019-[id number] 1 [facility] in 0.4 mg 2-15 tablet ity of sublingual 00:00: under the [place] tablet 00 tongue Medical every 5 Branch (five) minutes as needed for Chest pain. nitroglycer 2019-[id number] 1 [facility] in 0.4 mg 2-15 tablet ity of sublingual 00:00: under the [place] tablet 00 tongue Medical every 5 Branch (five) minutes as needed for Chest pain. nitroglycer 2019- Yes [id number] .4mg Place 1 [facility] in 0.4 mg 2-15 tablet ity of sublingual 00:00: under the [place] tablet 00 tongue Medical every 5 Branch (five) minutes as needed for Chest pain. nitroglycer 2019- Yes [id number] .4mg Place 1 [facility] in 0.4 mg 2-15 tablet ity of sublingual 00:00: under the [place] tablet 00 tongue Medical every 5 Branch (five) minutes as needed for Chest pain. nitroglycer 2019-[id number] 1 [facility] in 0.4 mg 2-15 tablet ity of sublingual 00:00: under the [place] tablet 00 tongue Medical every 5 Branch (five) minutes as needed for Chest pain. nitroglycer 2019- Yes [id number] .4mg Place 1 [facility] in 0.4 mg 2-15 tablet ity of sublingual 00:00: under the [place] tablet 00 tongue Medical every 5 Branch (five) minutes as needed for Chest pain. nitroglycer 2019-[id number] 1 [facility] in 0.4 mg 2-15 tablet ity of sublingual 00:00: under the [place] tablet 00 tongue Medical every 5 Branch (five) minutes as needed for Chest pain. nitroglycer 2019-[id number] 1 [facility] in 0.4 mg 2-15 tablet ity of sublingual 00:00: under the [place] tablet 00 tongue Medical every 5 Branch (five) minutes as needed for Chest pain. nitroglycer 2019-[id number] 1 [facility] in 0.4 mg 2-15 tablet ity of sublingual 00:00: under the [place] tablet 00 tongue Medical every 5 Branch (five) minutes as needed for Chest pain. nitroglycer 2019-[id number] 1 [facility] in 0.4 mg 2-15 tablet ity of sublingual 00:00: under the [place] tablet 00 tongue Medical every 5 Branch (five) minutes as needed for Chest pain. nitroglycer 2019-[id number] 1 [facility] in 0.4 mg 2-15 tablet ity of sublingual 00:00: under the [place] tablet 00 tongue Medical every 5 Branch (five) minutes as needed for Chest pain. nitroglycer 2019-[id number] 1 [facility] in 0.4 mg 2-15 tablet ity of sublingual 00:00: under the [place] tablet 00 tongue Medical every 5 Branch (five) minutes as needed for Chest pain. nitroglycer 2019-[id number] 1 [facility] in 0.4 mg 2-15 tablet ity of sublingual 00:00: under the [place] tablet 00 tongue Medical every 5 Branch (five) minutes as needed for Chest pain. nitroglycer 2019-[id number] 1 [facility] in 0.4 mg 2-15 tablet ity of sublingual 00:00: under the [place] tablet 00 tongue Medical every 5 Branch (five) minutes as needed for Chest pain. nitroglycer 2019- Yes [id number] .4mg Place 1 [facility] in 0.4 mg 2-15 tablet ity of sublingual 00:00: under the [place] tablet 00 tongue Medical every 5 Branch (five) minutes as needed for Chest pain. nitroglycer 2019- Yes [id number] .4mg Place 1 [facility] in 0.4 mg 2-15 tablet ity of sublingual 00:00: under the [place] tablet 00 tongue Medical every 5 Branch (five) minutes as needed for Chest pain. nitroglycer 2019- Yes [id number] .4mg [address] 1 [facility] in 0.4 mg 2-15 tablet ity of sublingual 00:00: under the [place] tablet 00 tongue Medical every 5 Branch (five) minutes as needed for Chest pain. nitroglycer 2019-[id number] 1 [facility] in 0.4 mg 2-15 tablet ity of sublingual 00:00: under the [place] tablet 00 tongue Medical every 5 Branch (five) minutes as needed for Chest pain. nitroglycer 2019- Yes [id number] .4mg [address] 1 [facility] in 0.4 mg 2-15 tablet ity of sublingual 00:00: under the [place] tablet 00 tongue Medical every 5 Branch (five) minutes as needed for Chest pain. nitroglycer 2020-[id number] 1 [facility] in 0.4 mg 2-15 tablet ity of sublingual 00:00: under the [place] tablet 00 tongue Medical every 5 Branch (five) minutes as needed for Chest pain. nitroglycer 2020-[id number] 1 [facility] in 0.4 mg 2-15 tablet ity of sublingual 00:00: under the [place] tablet 00 tongue Medical every 5 Branch (five) minutes as needed for Chest pain. nitroglycer 2020-[id number] 1 [facility] in 0.4 mg 2-15 tablet ity of sublingual 00:00: under the [place] tablet 00 tongue Medical every 5 Branch (five) minutes as needed for Chest pain. nitroglycer 2019-[id number] 1 [facility] in 0.4 mg 2-15 tablet ity of sublingual 00:00: under the [place] tablet 00 tongue Medical every 5 Branch (five) minutes as needed for Chest pain. nitroglycer 2019-[id number] 1 [facility] in 0.4 mg 2-15 tablet ity of sublingual 00:00: under the [place] tablet 00 tongue Medical every 5 Branch (five) minutes as needed for Chest pain. nitroglycer 2019-[id number] 1 [facility] in 0.4 mg 2-15 tablet ity of sublingual 00:00: under the [place] tablet 00 tongue Medical every 5 Branch (five) minutes as needed for Chest pain. nitroglycer 2019-[id number] 1 [facility] in 0.4 mg 2-15 tablet ity of sublingual 00:00: under the [place] tablet 00 tongue Medical every 5 Branch (five) minutes as needed for Chest pain. nitroglycer 2019-[id number] 1 [facility] in 0.4 mg 2-15 tablet ity of sublingual 00:00: under the [place] tablet 00 tongue Medical every 5 Branch (five) minutes as needed for Chest pain. nitroglycer 2019-[id number] 1 [facility] in 0.4 mg 2-15 tablet ity of sublingual 00:00: under the [place] tablet 00 tongue Medical every 5 Branch (five) minutes as needed for Chest pain. nitroglycer 2020-[id number] 1 [facility] in 0.4 mg 2-15 tablet ity of sublingual 00:00: under the [place] tablet 00 tongue Medical every 5 Branch (five) minutes as needed for Chest pain. nitroglycer 2020-[id number] 1 [facility] in 0.4 mg 2-15 tablet ity of sublingual 00:00: under the [place] tablet 00 tongue Medical every 5 Branch (five) minutes as needed for Chest pain. nitroglycer 2020-[id number] 1 [facility] in 0.4 mg 2-15 tablet ity of sublingual 00:00: under the [place] tablet 00 tongue Medical every 5 Branch (five) minutes as needed for Chest pain. nitroglycer 2019-[id number] 1 [facility] in 0.4 mg 2-15 tablet ity of sublingual 00:00: under the [place] tablet 00 tongue Medical every 5 Branch (five) minutes as needed for Chest pain. nitroglycer 2019-[id number] 1 [facility] in 0.4 mg 2-15 tablet ity of sublingual 00:00: under the [place] tablet 00 tongue Medical every 5 Branch (five) minutes as needed for Chest pain. nitroglycer 2019-[id number] 1 [facility] in 0.4 mg 2-15 tablet ity of sublingual 00:00: under the [place] tablet 00 tongue Medical every 5 Branch (five) minutes as needed for Chest pain. nitroglycer 2019-[id number] [facility] in 0.4 mg 2-15 tablet ity of sublingual 00:00: under the [place] tablet 00 tongue Medical every 5 Branch (five) minutes as needed for Chest pain. nitroglycer 2020-[id number] 1 [facility] in 0.4 mg 2-15 tablet ity of sublingual 00:00: under the [place] tablet 00 tongue Medical every 5 Branch (five) minutes as needed for Chest pain. nitroglycer 2020-[id number] 1 [facility] in 0.4 mg 2-15 tablet ity of sublingual 00:00: under the [place] tablet 00 tongue Medical every 5 Branch (five) minutes as needed for Chest pain. nitroglycer 2020-[id number] 1 [facility] in 0.4 mg 2-15 tablet ity of sublingual 00:00: under the [place] tablet 00 tongue Medical every 5 Branch (five) minutes as needed for Chest pain. nitroglycer 2020-[id number] 1 [facility] in 0.4 mg 2-15 tablet ity of sublingual 00:00: under the [place] tablet 00 tongue Medical every 5 Branch (five) minutes as needed for Chest pain. nitroglycer 2020-[id number] 1 [facility] in 0.4 mg 2-15 tablet ity of sublingual 00:00: under the [place] tablet 00 tongue Medical every 5 Branch (five) minutes as needed for Chest pain. nitroglycer 2020-[id number] 1 [facility] in 0.4 mg 2-15 tablet ity of sublingual 00:00: under the [place] tablet 00 tongue Medical every 5 Branch (five) minutes as needed for Chest pain. nitroglycer 2020-[id number] 1 [facility] in 0.4 mg 2-15 tablet ity of sublingual 00:00: under the [place] tablet 00 tongue Medical every 5 Branch (five) minutes as needed for Chest pain. nitroglycer 2020-[id number] 1 [facility] in 0.4 mg 2-15 tablet ity of sublingual 00:00: under the [place] tablet 00 tongue Medical every 5 Branch (five) minutes as needed for Chest pain. nitroglycer 2020-[id number] 1 [facility] in 0.4 mg 2-15 tablet ity of sublingual 00:00: under the [place] tablet 00 tongue Medical every 5 Branch (five) minutes as needed for Chest pain. nitroglycer 2020-[id number] 1 [facility] in 0.4 mg 2-15 tablet ity of sublingual 00:00: under the [place] tablet 00 tongue Medical every 5 Branch (five) minutes as needed for Chest pain. nitroglycer 2020-[id number] 1 [facility] in 0.4 mg 2-15 tablet ity of sublingual 00:00: under the [place] tablet 00 tongue Medical every 5 Branch (five) minutes as needed for Chest pain. nitroglycer 2020- Yes [id number] .4mg [facility] 1 [facility] in 0.4 mg 2-15 tablet ity of sublingual 00:00: under the [place] tablet 00 tongue Medical every 5 Branch (five) minutes as needed for Chest pain. nitroglycer 2019- Yes [id number] .4mg Place 1 [facility] in 0.4 mg 2-15 tablet ity of sublingual 00:00: under the [place] tablet 00 tongue Medical every 5 Branch (five) minutes as needed for Chest pain. nitroglycer 2019- Yes [id number] .4mg Place 1 [facility] in 0.4 mg 2-15 tablet ity of sublingual 00:00: under the [place] tablet 00 tongue Medical every 5 Branch (five) minutes as needed for Chest pain. nitroglycer 2019- Yes [id number] .4mg Place 1 [facility] in 0.4 mg 2-15 tablet ity of sublingual 00:00: under the [place] tablet 00 tongue Medical every 5 Branch (five) minutes as needed for Chest pain. nitroglycer 2019- Yes [id number] .4mg Place 1 [facility] in 0.4 mg 2-15 tablet ity of sublingual 00:00: under the [place] tablet 00 tongue Medical every 5 Branch (five) minutes as needed for Chest pain. nitroglycer 2019- Yes [id number] .4mg Place 1 [facility] in 0.4 mg 2-15 tablet ity of sublingual 00:00: under the [place] tablet 00 tongue Medical every 5 Branch (five) minutes as needed for Chest pain. nitroglycer 2019- Yes [id number] .4mg Place 1 [facility] in 0.4 mg 2-15 tablet ity of sublingual 00:00: under the [place] tablet 00 tongue Medical every 5 Branch (five) minutes as needed for Chest pain. nitroglycer 2019-[id number] 1 [facility] in 0.4 mg 2-15 tablet ity of sublingual 00:00: under the [place] tablet 00 tongue Medical every 5 Branch (five) minutes as needed for Chest pain. nitroglycer 2019-[id number] 1 [facility] in 0.4 mg 2-15 tablet ity of sublingual 00:00: under the [place] tablet 00 tongue Medical every 5 Branch (five) minutes as needed for Chest pain. nitroglycer 2020-[id number] 1 [facility] in 0.4 mg 2-15 tablet ity of sublingual 00:00: under the [place] tablet 00 tongue Medical every 5 Branch (five) minutes as needed for Chest pain. nitroglycer 2019- Yes [id number] .4mg Place 1 [facility] in 0.4 mg 2-15 tablet ity of sublingual 00:00: under the [place] tablet 00 tongue Medical every 5 Branch (five) minutes as needed for Chest pain. nitroglycer 2019- Yes [id number] .4mg Place 1 [facility] in 0.4 mg 2-15 tablet ity of sublingual 00:00: under the [place] tablet 00 tongue Medical every 5 Branch (five) minutes as needed for Chest pain. nitroglycer 2019- Yes [id number] .4mg Place 1 [facility] in 0.4 mg 2-15 tablet ity of sublingual 00:00: under the [place] tablet 00 tongue Medical every 5 Branch (five) minutes as needed for Chest pain. nitroglycer 2019- Yes [id number] .4mg Place 1 [facility] in 0.4 mg 2-15 tablet ity of sublingual 00:00: under the [place] tablet 00 tongue Medical every 5 Branch (five) minutes as needed for Chest pain. nitroglycer 2019-[id number] 1 [facility] in 0.4 mg 2-15 tablet ity of sublingual 00:00: under the [place] tablet 00 tongue Medical every 5 Branch (five) minutes as needed for Chest pain. nitroglycer 2019-[id number] 1 [facility] in 0.4 mg 2-15 tablet ity of sublingual 00:00: under the [place] tablet 00 tongue Medical every 5 Branch (five) minutes as needed for Chest pain. nitroglycer 2019-[id number] 1 [facility] in 0.4 mg 2-15 tablet ity of sublingual 00:00: under the [place] tablet 00 tongue Medical every 5 Branch (five) minutes as needed for Chest pain. nitroglycer 2019-[id number] 1 [facility] in 0.4 mg 2-15 tablet ity of sublingual 00:00: under the [place] tablet 00 tongue Medical every 5 Branch (five) minutes as needed for Chest pain. nitroglycer 2019- Yes [id number] .4mg [facility] 1 [facility] in 0.4 mg 2-15 tablet ity of sublingual 00:00: under the [place] tablet 00 tongue Medical every 5 Branch (five) minutes as needed for Chest pain. nitroglycer 2019- Yes [id number] .4mg [facility] 1 [facility] in 0.4 mg 2-15 tablet ity of sublingual 00:00: under the [place] tablet 00 tongue Medical every 5 Branch (five) minutes as needed for Chest pain. nitroglycer 2019- Yes [id number] .4mg [facility] 1 [facility] in 0.4 mg 2-15 tablet ity of sublingual 00:00: under the [place] tablet 00 tongue Medical every 5 Branch (five) minutes as needed for Chest pain. nitroglycer 2019- Yes [id number] .4mg [facility] 1 [facility] in 0.4 mg 2-15 tablet ity of sublingual 00:00: under the [place] tablet 00 tongue Medical every 5 Branch (five) minutes as needed for Chest pain. nitroglycer 2019- Yes [id number] .4mg [facility] 1 [facility] in 0.4 mg 2-15 tablet ity of sublingual 00:00: under the [place] tablet 00 tongue Medical every 5 Branch (five) minutes as needed for Chest pain. nitroglycer 2019-[id number] 1 [facility] in 0.4 mg 2-15 tablet ity of sublingual 00:00: under the [place] tablet 00 tongue Medical every 5 Branch (five) minutes as needed for Chest pain. nitroglycer 2019-[id number] 1 [facility] in 0.4 mg 2-15 tablet ity of sublingual 00:00: under the [place] tablet 00 tongue Medical every 5 Branch (five) minutes as needed for Chest pain. nitroglycer 2019-[id number] 1 [facility] in 0.4 mg 2-15 tablet ity of sublingual 00:00: under the [place] tablet 00 tongue Medical every 5 Branch (five) minutes as needed for Chest pain. nitroglycer 2019- Yes [id number] .4mg Place 1 [facility] in 0.4 mg 2-15 tablet ity of sublingual 00:00: under the [place] tablet 00 tongue Medical every 5 Branch (five) minutes as needed for Chest pain. nitroglycer 2019- Yes [id number] .4mg Place 1 [facility] in 0.4 mg 2-15 tablet ity of sublingual 00:00: under the [place] tablet 00 tongue Medical every 5 Branch (five) minutes as needed for Chest pain. nitroglycer 2019- Yes [id number] .4mg Place 1 [facility] in 0.4 mg 2-15 tablet ity of sublingual 00:00: under the [place] tablet 00 tongue Medical every 5 Branch (five) minutes as needed for Chest pain. nitroglycer 2019- Yes [id number] .4mg [facility] 1 [facility] in 0.4 mg 2-15 tablet ity of sublingual 00:00: under the [place] tablet 00 tongue Medical every 5 Branch (five) minutes as needed for Chest pain. nitroglycer 2019- Yes [id number] .4mg Place 1 [facility] in 0.4 mg 2-15 tablet ity of sublingual 00:00: under the [place] tablet 00 tongue Medical every 5 Branch (five) minutes as needed for Chest pain. nitroglycer 2019- Yes [id number] .4mg Place 1 [facility] in 0.4 mg 2-15 tablet ity of sublingual 00:00: under the [place] tablet 00 tongue Medical every 5 Branch (five) minutes as needed for Chest pain. nitroglycer 2019-[id number] 1 [facility] in 0.4 mg 2-15 tablet ity of sublingual 00:00: under the [place] tablet 00 tongue Medical every 5 Branch (five) minutes as needed for Chest pain. nitroglycer 2019-[id number] 1 [facility] in 0.4 mg 2-15 tablet ity of sublingual 00:00: under the [place] tablet 00 tongue Medical every 5 Branch (five) minutes as needed for Chest pain. nitroglycer 2019-[id number] 1 [facility] in 0.4 mg 2-15 tablet ity of sublingual 00:00: under the [place] tablet 00 tongue Medical every 5 Branch (five) minutes as needed for Chest pain. nitroglycer 2019- Yes [id number] .4mg Place 1 [facility] in 0.4 mg 2-15 tablet ity of sublingual 00:00: under the [place] tablet 00 tongue Medical every 5 Branch (five) minutes as needed for Chest pain. nitroglycer 2019- Yes [id number] .4mg Place 1 [facility] in 0.4 mg 2-15 tablet ity of sublingual 00:00: under the [place] tablet 00 tongue Medical every 5 Branch (five) minutes as needed for Chest pain. nitroglycer 2019- Yes [id number] .4mg Place 1 [facility] in 0.4 mg 2-15 tablet ity of sublingual 00:00: under the [place] tablet 00 tongue Medical every 5 Branch (five) minutes as needed for Chest pain. nitroglycer 2019-[id number] 1 [facility] in 0.4 mg 2-15 tablet ity of sublingual 00:00: under the [place] tablet 00 tongue Medical every 5 Branch (five) minutes as needed for Chest pain. nitroglycer 2019- Yes [id number] .4mg Place 1 [facility] in 0.4 mg 2-15 tablet ity of sublingual 00:00: under the [place] tablet 00 tongue Medical every 5 Branch (five) minutes as needed for Chest pain. nitroglycer 2019- Yes [id number] .4mg [facility] 1 [facility] in 0.4 mg 2-15 tablet ity of sublingual 00:00: under the [place] tablet 00 tongue Medical every 5 Branch (five) minutes as needed for Chest pain. nitroglycer 2019-[id number] 1 [facility] in 0.4 mg 2-15 tablet ity of sublingual 00:00: under the [place] tablet 00 tongue Medical every 5 Branch (five) minutes as needed for Chest pain. nitroglycer 2019- Yes [id number] .4mg [facility] 1 [facility] in 0.4 mg 2-15 tablet ity of sublingual 00:00: under the [place] tablet 00 tongue Medical every 5 Branch (five) minutes as needed for Chest pain. nitroglycer 2019- Yes [id number] .4mg [facility] 1 [facility] in 0.4 mg 2-15 tablet ity of sublingual 00:00: under the [place] tablet 00 tongue Medical every 5 Branch (five) minutes as needed for Chest pain. nitroglycer 2019- Yes [id number] .4mg Place 1 [facility] in 0.4 mg 2-15 tablet ity of sublingual 00:00: under the [place] tablet 00 tongue Medical every 5 Branch (five) minutes as needed for Chest pain. nitroglycer 2019- Yes [id number] .4mg Place 1 [facility] in 0.4 mg 2-15 tablet ity of sublingual 00:00: under the [place] tablet 00 tongue Medical every 5 Branch (five) minutes as needed for Chest pain. nitroglycer 2019- Yes [id number] .4mg [facility] 1 [facility] in 0.4 mg 2-15 tablet ity of sublingual 00:00: under the [place] tablet 00 tongue Medical every 5 Branch (five) minutes as needed for Chest pain. nitroglycer 2019-[id number] 1 [facility] in 0.4 mg 2-15 tablet ity of sublingual 00:00: under the [place] tablet 00 tongue Medical every 5 Branch (five) minutes as needed for Chest pain. nitroglycer 2019-[id number] 1 [facility] in 0.4 mg 2-15 tablet ity of sublingual 00:00: under the [place] tablet 00 tongue Medical every 5 Branch (five) minutes as needed for Chest pain. nitroglycer 2019-[id number] 1 [facility] in 0.4 mg 2-15 tablet ity of sublingual 00:00: under the [place] tablet 00 tongue Medical every 5 Branch (five) minutes as needed for Chest pain. nitroglycer 2019- Yes [id number] .4mg [facility] 1 [facility] in 0.4 mg 2-15 tablet ity of sublingual 00:00: under the [place] tablet 00 tongue Medical every 5 Branch (five) minutes as needed for Chest pain. nitroglycer 2019-[id number] 1 [facility] in 0.4 mg 2-15 tablet ity of sublingual 00:00: under the [place] tablet 00 tongue Medical every 5 Branch (five) minutes as needed for Chest pain. nitroglycer 2019- Yes [id number] .4mg [facility] 1 [facility] in 0.4 mg 2-15 tablet ity of sublingual 00:00: under the [place] tablet 00 tongue Medical every 5 Branch (five) minutes as needed for Chest pain. nitroglycer 2019- Yes [id number] .4mg [facility] 1 [facility] in 0.4 mg 2-15 tablet ity of sublingual 00:00: under the [place] tablet 00 tongue Medical every 5 Branch (five) minutes as needed for Chest pain. nitroglycer 2019- Yes [id number] .4mg [facility] 1 [facility] in 0.4 mg 2-15 tablet ity of sublingual 00:00: under the [place] tablet 00 tongue Medical every 5 Branch (five) minutes as needed for Chest pain. nitroglycer 2019-[id number] 1 [facility] in 0.4 mg 2-15 tablet ity of sublingual 00:00: under the [place] tablet 00 tongue Medical every 5 Branch (five) minutes as needed for Chest pain. nitroglycer 2019-[id number] 1 [facility] in 0.4 mg 2-15 tablet ity of sublingual 00:00: under the [place] tablet 00 tongue Medical every 5 Branch (five) minutes as needed for Chest pain. nitroglycer 2019-[id number] 1 [facility] in 0.4 mg 2-15 tablet ity of sublingual 00:00: under the [place] tablet 00 tongue Medical every 5 Branch (five) minutes as needed for Chest pain. nitroglycer 2019-[id number] 1 [facility] in 0.4 mg 2-15 tablet ity of sublingual 00:00: under the [place] tablet 00 tongue Medical every 5 Branch (five) minutes as needed for Chest pain. nitroglycer 2019-[id number] 1 [facility] in 0.4 mg 2-15 tablet ity of sublingual 00:00: under the [place] tablet 00 tongue Medical every 5 Branch (five) minutes as needed for Chest pain. nitroglycer 2019-[id number] 1 [facility] in 0.4 mg 2-15 tablet ity of sublingual 00:00: under the [place] tablet 00 tongue Medical every 5 Branch (five) minutes as needed for Chest pain. nitroglycer 2019-[id number] 1 [facility] in 0.4 mg 2-15 tablet ity of sublingual 00:00: under the [place] tablet 00 tongue Medical every 5 Branch (five) minutes as needed for Chest pain. nitroglycer 2019-[id number] 1 [facility] in 0.4 mg 2-15 tablet ity of sublingual 00:00: under the [place] tablet 00 tongue Medical every 5 Branch (five) minutes as needed for Chest pain. nitroglycer 2019- Yes [id number] .4mg [facility] 1 [facility] in 0.4 mg 2-15 tablet ity of sublingual 00:00: under the [place] tablet 00 tongue Medical every 5 Branch (five) minutes as needed for Chest pain. nitroglycer 2019-[id number] 1 [facility] in 0.4 mg 2-15 tablet ity of sublingual 00:00: under the [place] tablet 00 tongue Medical every 5 Branch (five) minutes as needed for Chest pain. nitroglycer 2019-[id number] 1 [facility] in 0.4 mg 2-15 tablet ity of sublingual 00:00: under the [place] tablet 00 tongue Medical every 5 Branch (five) minutes as needed for Chest pain. nitroglycer 2019-[id number] 1 [facility] in 0.4 mg 2-15 tablet ity of sublingual 00:00: under the [place] tablet 00 tongue Medical every 5 Branch (five) minutes as needed for Chest pain. nitroglycer 2019-[id number] 1 [facility] in 0.4 mg 2-15 tablet ity of sublingual 00:00: under the [place] tablet 00 tongue Medical every 5 Branch (five) minutes as needed for Chest pain. nitroglycer 2019-[id number] 1 [facility] in 0.4 mg 2-15 tablet ity of sublingual 00:00: under the [place] tablet 00 tongue Medical every 5 Branch (five) minutes as needed for Chest pain. nitroglycer 2019-[id number] 1 [facility] in 0.4 mg 2-15 tablet ity of sublingual 00:00: under the [place] tablet 00 tongue Medical every 5 Branch (five) minutes as needed for Chest pain. nitroglycer 2019-[id number] 1 [facility] in 0.4 mg 2-15 tablet ity of sublingual 00:00: under the [place] tablet 00 tongue Medical every 5 Branch (five) minutes as needed for Chest pain. nitroglycer 2019-[id number] 1 [facility] in 0.4 mg 2-15 tablet ity of sublingual 00:00: under the [place] tablet 00 tongue Medical every 5 Branch (five) minutes as needed for Chest pain. nitroglycer 2019- Yes [id number] .4mg [facility] 1 [facility] in 0.4 mg 2-15 tablet ity of sublingual 00:00: under the [place] tablet 00 tongue Medical every 5 Branch (five) minutes as needed for Chest pain. nitroglycer 2019-[id number] 1 [facility] in 0.4 mg 2-15 tablet ity of sublingual 00:00: under the [place] tablet 00 tongue Medical every 5 Branch (five) minutes as needed for Chest pain. nitroglycer 2019-[id number] 1 [facility] in 0.4 mg 2-15 tablet ity of sublingual 00:00: under the [place] tablet 00 tongue Medical every 5 Branch (five) minutes as needed for Chest pain. nitroglycer 2019-[id number] 1 [facility] in 0.4 mg 2-15 tablet ity of sublingual 00:00: under the [place] tablet 00 tongue Medical every 5 Branch (five) minutes as needed for Chest pain. nitroglycer 2019-[id number] 1 [facility] in 0.4 mg 2-15 tablet ity of sublingual 00:00: under the [place] tablet 00 tongue Medical every 5 Branch (five) minutes as needed for Chest pain. nitroglycer 2019-[id number] 1 [facility] in 0.4 mg 2-15 tablet ity of sublingual 00:00: under the [place] tablet 00 tongue Medical every 5 Branch (five) minutes as needed for Chest pain. nitroglycer 2019- Yes [id number] .4mg Place 1 [facility] in 0.4 mg 2-15 tablet ity of sublingual 00:00: under the [place] tablet 00 tongue Medical every 5 Branch (five) minutes as needed for Chest pain. nitroglycer 2019-[id number] 1 [facility] in 0.4 mg 2-15 tablet ity of sublingual 00:00: under the [place] tablet 00 tongue Medical every 5 Branch (five) minutes as needed for Chest pain. nitroglycer 2019-[id number] 1 [facility] in 0.4 mg 2-15 tablet ity of sublingual 00:00: under the [place] tablet 00 tongue Medical every 5 Branch (five) minutes as needed for Chest pain. nitroglycer 2019-[id number] 1 [facility] in 0.4 mg 2-15 tablet ity of sublingual 00:00: under the [place] tablet 00 tongue Medical every 5 Branch (five) minutes as needed for Chest pain. nitroglycer 2019-[id number] 1 [facility] in 0.4 mg 2-15 tablet ity of sublingual 00:00: under the [place] tablet 00 tongue Medical every 5 Branch (five) minutes as needed for Chest pain. nitroglycer 2019-[id number] 1 [facility] in 0.4 mg 2-15 tablet ity of sublingual 00:00: under the [place] tablet 00 tongue Medical every 5 Branch (five) minutes as needed for Chest pain. nitroglycer 2019-[id number] 1 [facility] in 0.4 mg 2-15 tablet ity of sublingual 00:00: under the [place] tablet 00 tongue Medical every 5 Branch (five) minutes as needed for Chest pain. nitroglycer 2019-[id number] 1 [facility] in 0.4 mg 2-15 tablet ity of sublingual 00:00: under the [place] tablet 00 tongue Medical every 5 Branch (five) minutes as needed for Chest pain. nitroglycer 2019-[id number] 1 [facility] in 0.4 mg 2-15 tablet ity of sublingual 00:00: under the [place] tablet 00 tongue Medical every 5 Branch (five) minutes as needed for Chest pain. nitroglycer 2019-[id number] 1 [facility] in 0.4 mg 2-15 tablet ity of sublingual 00:00: under the [place] tablet 00 tongue Medical every 5 Branch (five) minutes as needed for Chest pain. nitroglycer 2019-[id number] 1 [facility] in 0.4 mg 2-15 tablet ity of sublingual 00:00: under the [place] tablet 00 tongue Medical every 5 Branch (five) minutes as needed for Chest pain. nitroglycer 2019-[id number] 1 [facility] in 0.4 mg 2-15 tablet ity of sublingual 00:00: under the [place] tablet 00 tongue Medical every 5 Branch (five) minutes as needed for Chest pain. nitroglycer 2019-[id number] 1 [facility] in 0.4 mg 2-15 tablet ity of sublingual 00:00: under the [place] tablet 00 tongue Medical every 5 Branch (five) minutes as needed for Chest pain. docusate 2019-09- No [id number] 100mg Take 1 [facility] n[facility] (COLACE) 10-11 11-04 capsule by ity of 100 mg 00:00: 00:00 mouth 2 [place] capsule 00 :00 (two) Medical times Branch daily as needed for Constipati on. QUEtiapine 2019- No [id number] 400mg Take 1 [facility] 400 mg 05-27 12-11 tablet by ity of tablet 00:00: 00:00 mouth at [place] 00 :00 bedtime. Medical Branch ibuprofen 2019- No [id number] 800mg Take 1 [facility] 800 mg 05-25 12- tablet by ity of tablet 00:00: 00:00 mouth [place] 00 :00 every 8 Medical (eight) Branch hours as needed for Pain (scale 1-3). prasugrel 2019- No [id number] 10mg Take 1 [facility] 10 mg 04-22 12-11 tablet by ity of tablet 00:00: 00:00 mouth [place] 00 :00 daily. Medical Branch LEVOTHYROXI 2019- No [id number] TAKE 1 [facility] NE 175 mcg 04-01 TABLET BY ity of tablet 00:00: 00:00 MOUTH [place] 00 :00 EVERY DAY Medical Branch OZEMPIC 2020- No [id number] .25mg inject Un p[place]a 0.25 mg or 03-27 0.25 mg ity o f 0.5 mg(2 00:00: 00:00 under the [place] as mg/1.5 mL) 00 :00 skin Medical PnIj weekly. Branch metFORMIN 2019- No [id number] 500mg Take 0.5 [facility] 1,000 mg 03-2717 tablets by ity of tablet 00:00: 00:00 mouth 3 [place] 00 :00 (three) Medical times Branch daily with meals. aspirin 81 2019-2019- No [id number] 81mg Take 1 [facility] mg chewable - 12-11 tablet by it y of tablet 00:00: 00:00 mouth [place] 00 :00 daily. Medical Branch acetaminoph 2019- No [id number] 650mg Take 2 [facility] en 325 mg 6 12-11 tablets by ity of tablet 00:00: 00:00 mouth [place] 00 :00 every 8 Medical (eight) Branch hours as needed for Pain (scale 1-3). terbinafine 2020- No [id number] Apply to [facility] HCl 1 % 02-24 area(s) 2 ity of cream 00:00: 00:00 (two) [place] 00 :00 times Medical daily. Branch ramelteon 8 2019- No [id number] 8mg Take 1 [facility] mg tablet - 12-17 tablet by ity of 00:00: 00:00 mouth at [place] 00 :00 bedtime as Medical needed for Branch Insomnia. DULoxetine 2019- No [id number] 60mg Take 1 [facility] 60 mg 5-28 12-17 capsule by ity of capsule 00:00: 00:00 mouth [place] 00 :00 daily. Medical Branch gabapentin 2019- No [id number] 300mg Take 1 [facility] 300 mg 5-28 12-17 capsule by ity of capsule 00:00: 00:00 mouth 2 [place] 00 :00 (two) Medical times Branch daily. atorvastati 2019- No [id number] 40mg Take 1 [facility] n 40 mg 5-18 12-11 tablet by ity of tablet 00:00: 00:00 mouth at [place] 00 :00 bedtime. Medical Branch furosemide 2019- No [id number] 40mg Take 1 [facility] 40 mg 5-18 12-11 tablet by ity of tablet 00:00: 00:00 mouth [place] 00 :00 every Medical morning Branch and evening. spironolact 2019- No [id number] 25mg Take 1 [facility] one 25 mg 5-18 12-11 tablet by ity of tablet 00:00: 00:00 mouth [place] 00 :00 daily. Medical Branch KCL 10 mEq 2019- No 20meq Take 2 [facility] vers tablet 11-21-11 tablets by ity of 00:00: 00:00 mouth 2 [place] 00 :00 (two) Medical times Branch daily. metoprolol 2019- No [id number] 50mg Take 1 [facility] tartrate 50 2-25 12-11 tablet by it y of mg tablet 00:00: 00:00 mouth [place] 00 :[place] (two) Medical times Branch daily. omeprazole 2020- No [id number] 40mg Take 1 [facility] 40 mg 11-13 capsule by ity of capsule 00:00: 00:00 mouth [place] 00 :00 daily. Medical Branch loratadine No [id number] 10mg Take 1 [facility] 10 mg 11-13 tablet by ity of tablet 00:00: 00:00 mouth at [place] 00 :00 bedtime. Medical Branch Immunizations Ordered Filled Date Status Comments Source Immunization Name Immunization Name TDAP 2023-02-13 Completed [facility] 00:00:00 [facility] TDAP 2023-02-13 Completed [facility] [facility]13 Com[facility] 00[facility]00[facility]00 [facility] TDAP 2023-02-13 Completed [facility] 00:00:00 [facility] TDAP 2023-02-13 Completed [facility] 00:00:00 [facility] TDAP 2023-02-13 Completed [facility] 00:00:00 [facility] TDAP 2023-02-13 Completed [facility] 00:00:00 [facility] TDAP 2023-02-13 Completed [facility] 00:00:00 [facility] TDAP 2023-02-13 Completed [facility] 00:00:00 [facility] TDAP 2023-02-13 Completed [facility] 00:00:00 [facility] TDAP 2023-02-13 Completed [facility] 00:00:00 [facility] TDAP 2023-02-13 Completed [facility] 00:00:00 [facility] TDAP 2023-02-13 Completed [facility] 00:00:00 [facility] TDAP 2023-02-13 Completed [facility] 00:00:00 [facility] TDAP 2023-02-13 Completed [facility] 00[facility]00:00 [facility] TDAP 2023-02-13 Completed [facility] 00:00:00 [facility] TDAP 2023-02-13 Completed [facility] 00:00:00 [facility] TDAP 2023-02-13 Completed [facility] 00[facility]00:00 [facility] TDAP 2023-02-13 Completed [facility] 00:00:00 [facility] TDAP 2023-02-13 Completed [facility] 00:00:00 [facility] TDAP 2023-02-13 Completed [facility] 00:00:00 [facility] TDAP 2023-02-13 Completed [facility] 00:00:00 [facility] TDAP 2023-02-13 Completed [facility] 00[facility]00:00 [facility] TDAP 2023-02-13 Completed [facility] 00:00:00 [facility] TDAP 2023-02-13 Completed [facility] 00:00:00 [facility] TDAP 2023-02-13 Completed [facility] 00:00:00 [facility] TDAP 2023-02-13 Completed [facility] 00:00:00 [facility] Influenza Virus 2022-07-04 Completed [facility] Vaccine 00:00:00 [facility] Influenza Virus 2022-07-04 Completed [facility] Vaccine 00:00:00 [facility] Influenza Virus 2022-07-04 Completed [facility] Vaccine 00:00:00 [facility] Influenza Virus 2022-07-04 Completed [facility] Vaccine 00:00:00 [facility] Influenza Virus 2022-07-04 Completed [facility] Vaccine 00:00:00 [facility] Influenza Virus 2022-07-04 Completed [facility] Vaccine 00:00:00 [facility] Influenza Virus 2022-07-04 Completed [facility] Vaccine 00:00:00 [facility] Influenza Virus 2022-07-04 Completed [facility] Vaccine 00:00:00 [facility] Influenza Virus 2022-07-04 Completed [facility] Vaccine 00:00:00 [facility] Influenza Virus 2022-07-04 Completed [facility] Vaccine 00:00:00 [facility] Influenza Virus 2022-07-04 Completed [facility] Vaccine 00:00:00 [facility] Influenza Virus 2022-07-04 Completed [facility] Vaccine 00:00:00 [facility] Influenza Virus 2022-07-04 Completed [facility] Vaccine 00:00:00 [facility] Influenza Virus 2022-07-04 Completed [facility] Vaccine 00:00:00 [facility] Influenza Virus 2022-07-04 Completed [facility] Vaccine 00:00:00 [facility] Influenza Virus 2022-07-04 Completed [facility] y [facility] Vaccine 00:00:00 [facility] Influenza Virus 2022-07-04 Completed [facility] Vaccine 00:00:00 [facility] Influenza Virus 2022-07-04 Completed [facility] Vaccine 00:00:00 [facility] Influenza Virus 2022-07-04 Completed [facility] Vaccine 00:00:00 [facility] Influenza Virus 2022-07-04 Completed [facility] Vaccine 00:00:00 [facility] Influenza Virus 2022-07-04 Completed [facility] Vaccine 00:00:00 [facility] Influenza Virus 2022-07-04 Completed [facility] Vaccine 00:00:00 [facility] Influenza Virus 2022-07-04 Completed [facility] Vaccine 00:00:00 [facility] Influenza Virus 2022-07-04 Completed [facility] Vaccine 00:00:00 [facility] Influenza Virus 2022-07-04 Completed [facility] Vaccine 00:00:00 [facility] Influenza Virus 2022-07-04 Completed [facility] Vaccine 00:00:00 [facility] Influenza Virus 2022-07-04 Completed [facility] Vaccine 00:00:00 [facility] Influenza Virus 2022-07-04 Completed [facility] Vaccine 00:00:00 [facility] Influenza Virus 2022-07-04 Completed [facility] Vaccine 00:00:00 [facility] Influenza Virus 2022-07-04 Completed [facility] Vaccine 00:00:00 [facility] Influenza Virus 2022-07-04 Completed [facility] Vaccine 00:00:00 [facility] Influenza Virus 2022-07-04 Completed [facility] Vaccine 00:00:00 [facility] Influenza Virus 2022-07-04 Completed [facility] Vaccine 00:00:00 [facility] Influenza Virus 2022-07-04 Completed [facility] of Vaccine 00:00:00 [facility] Influenza Virus 2022-07-04 Completed [facility] Vaccine 00:00:00 [facility] Influenza Virus 2022-07-04 Completed [facility] Vaccine 00:00:00 [facility] Influenza Virus 2022-07-04 Completed [facility] Vaccine 00:00:00 [facility] Influenza Virus 2022-07-04 Completed [facility] Vaccine 00:00:00 [facility] Influenza Virus 2022-07-04 Completed [facility] Vaccine 00:00:00 [facility] Influenza Virus 2022-07-04 Completed [facility] Vaccine 00:00:00 [facility] Influenza Virus 2022-07-04 Completed [facility] Vaccine 00:00:00 [facility] Influenza Virus 2022-07-04 Completed [facility] Vaccine 00:00:00 [facility] Influenza Virus 2022-07-04 Completed [facility] Vaccine 00:00:00 [facility] Influenza Virus 2022-07-04 Completed [facility] Vaccine 00:00:00 [facility] Influenza Virus 2022-07-04 Completed [facility] Vaccine 00:00:00 [facility] Influenza Virus 2022-07-04 Completed [facility] Vaccine 00:00:00 [facility] Influenza Virus 2022-07-04 Completed [facility] Vaccine 00:00:00 [facility] Influenza Virus 2022-07-04 Completed [facility] Vaccine 00:00:00 [facility] Influenza Virus 2022-07-04 Completed [facility] Vaccine 00:00:00 [facility] Influenza Virus 2022-07-04 Completed [facility] Vaccine 00:00:00 [facility] Influenza Virus 2022-07-04 Completed [facility] Vaccine 00:00:00 [facility] Influenza Virus 2022-07-04 Completed [facility] Vaccine 00:00:00 [facility] Influenza Virus 2022-07-04 Completed [facility] Vaccine 00:00:00 [facility] Influenza Virus 2022-07-04 Completed [facility] Vaccine 00:00:00 [facility] Influenza Virus 2022-07-04 Completed [facility] Vaccine 00:00:00 [facility] Influenza Virus 2022-07-04 Completed [facility] Vaccine 00:00:00 [facility] Influenza Virus 2022-07-04 Completed [facility] Vaccine 00:00:00 [facility] Influenza Virus 2022-07-04 Completed [facility] Vaccine 00:00:00 [facility] Influenza Virus 2022-07-04 Completed [facility] Vaccine 00:00:00 [facility] Influenza Virus 2022-07-04 Completed [facility] Vaccine 00:00:00 [facility] Influenza Virus 2022-07-04 Completed [facility] Vaccine 00:00:00 [facility] Influenza Virus 2022-07-04 Completed [facility] Vaccine 00:00:00 [facility] Influenza Virus 2022-07-04 Completed [facility] Vaccine 00:00:00 [facility] Influenza Virus 2022-07-04 Completed [facility] Vaccine 00:00:00 [facility] Influenza Virus 2022-07-04 Completed [facility] Vaccine 00:00:00 [facility] Influenza Virus 2022-07-04 Completed [facility] Vaccine 00:00:00 [facility] Influenza Virus 2022-07-04 Completed [facility] Vaccine 00:00:00 [facility] Influenza Virus 2022-07-04 Completed [facility] Vaccine 00:00:00 [facility] Influenza Virus 2022-07-04 Completed [facility] Vaccine 00:00:00 [facility] Influenza Virus 2022-07-04 Completed [facility] Vaccine 00:00:00 [facility] Influenza Virus 2022-07-04 Completed [facility] Vaccine 00:00:00 [facility] Influenza Virus 2022-07-04 Completed [facility] Vaccine 00:00:00 [facility] Influenza Virus 2022-07-04 Completed [facility] Vaccine 00:00:00 [facility] Influenza Virus 2022-07-04 Completed [facility] Vaccine 00:00:00 [facility] Influenza Virus 2022-07-04 Completed [facility] Vaccine 00:00:00 [facility] Influenza Virus 2022-07-04 Completed [facility] Vaccine 00:00:00 [facility] Influenza Virus 2022-07-04 Completed [facility] Vaccine 00:00:00 [facility] Influenza Virus 2022-07-04 Completed [facility] Vaccine 00:00:00 [facility] Influenza Virus 2022-07-04 Completed [facility] of Vaccine 00:00:00 [facility] Influenza Virus 2022-07-04 Completed [facility] Vaccine 00:00:00 [facility] Influenza Virus 2022-07-04 Completed [facility] Vaccine 00:00:00 [facility] Influenza Virus 2022-07-04 Completed [facility] Vaccine 00:00:00 [facility] Influenza Virus 2022-07-04 Completed [facility] Vaccine 00:00:00 [facility] Influenza Virus 2022-07-04 Completed [facility] Vaccine 00:00:00 [facility] Influenza Virus 2022-07-04 Completed [facility] of Vaccine 00:00:00 [facility] Influenza Virus 2022-07-04 Completed [facility] Vaccine 00:00:00 [facility] Influenza Virus 2022-07-04 Completed [facility] Vaccine 00:00:00 [facility] Influenza Virus 2022-07-04 Completed [facility] Vaccine 00:00:00 [facility] Influenza Virus 2022-07-04 Completed [facility] Vaccine 00:00:00 [facility] Influenza Virus 2022-07-04 Completed [facility] Vaccine 00:00:00 [facility] Influenza Virus 2022-07-04 Completed [facility] Vaccine 00:00:00 [facility] Influenza Virus 2022-07-04 Completed [facility] Vaccine 00:00:00 [facility] Influenza Virus 2022-07-04 Completed [facility] Vaccine 00:00:00 [facility] Influenza Virus 2022-07-04 Completed [facility] Vaccine 00:00:00 [facility] Influenza Virus 2022-07-04 Completed [facility] Vaccine 00:00:00 [facility] Influenza Virus 2022-07-04 Completed [facility] Vaccine 00:00:00 [facility] SARS-COV-2 COVID-19 2021-07-28 Completed Unive rsity of PFIZER VACCINE 00:00:00 [facility] Influenza Virus 2021-07-28 Completed [facility] y of Vaccine 00:00:00 [facility] SARS-COV-2 COVID-19 2021-07-28 Completed Unive rsity of PFIZER VACCINE 00:00:00 [facility] Influenza Virus 2021-07-28 Completed [facility] of Vaccine 00:00:00 [facility] SARS-COV-2 COVID-19 2021-07-28 Completed [facility]ive rsity of PFIZER VACCINE 00:00:00 [facility] Influenza Virus 2021-07-28 Completed [facility] Vaccine 00:00:00 [facility] SARS-COV-2 COVID-19 2021-07-28 Completed [facility]ive rsity of PFIZER VACCINE 00:00:00 [facility] Influenza Virus 2021-07-28 Completed [facility] Vaccine 00:00:00 [facility] SARS-COV-2 COVID-19 2021-07-28 Completed [facility]ive rsity of PFIZER VACCINE 00:00:00 [facility] Influenza Virus 2021-07-28 Completed [facility] Vaccine 00:00:00 [facility] SARS-COV-2 COVID-19 2021-07-28 Completed [facility]ive rsity of PFIZER VACCINE 00:00:00 [facility] Influenza Virus 2021-07-28 Completed [facility] Vaccine 00:00:00 [facility] SARS-COV-2 COVID-19 2021-07-28 Completed [facility]ive rsity of PFIZER VACCINE 00:00:00 [facility] Influenza Virus 2021-07-28 Completed [facility] Vaccine 00:00:00 [facility] SARS-COV-2 COVID-19 2021-07-28 Completed [facility]ive rsity of PFIZER VACCINE 00:00:00 [facility] Influenza Virus 2021-07-28 Completed [facility] Vaccine 00:00:00 [facility] SARS-COV-2 COVID-19 2021-07-28 Completed [facility]ive rsity of PFIZER VACCINE 00:00:00 [facility] Influenza Virus 2021-07-28 Completed [facility] Vaccine 00:00:00 [facility] SARS-COV-2 COVID-19 2021-07-28 Completed [facility]ive rsity of PFIZER VACCINE 00:00:00 [facility] Influenza Virus 2021-07-28 Completed [facility] Vaccine 00:00:00 [facility] SARS-COV-2 COVID-19 2021-07-28 Completed [facility]ive rsity of PFIZER VACCINE 00:00:00 [facility] Influenza Virus 2021-07-28 Completed [facility] Vaccine 00:00:00 [facility] SARS-COV-2 COVID-19 2021-07-28 Completed [facility] rs[facility] of PFIZER VACCINE 00:00:00 [facility] Influenza Virus 2021-07-28 Completed [facility] Vaccine 00:00:00 [facility] SARS-COV-2 COVID-19 2021-07-28 Completed [facility]ive rsity of PFIZER VACCINE 00:00:00 [facility] Influenza Virus 2021-07-28 Completed [facility] Vaccine 00:00:00 [facility] SARS-COV-2 COVID-19 2021-07-28 Completed [facility]ive rsity of PFIZER VACCINE 00:00:00 [facility] Influenza Virus 2021-07-28 Completed [facility] Vaccine 00:00:00 [facility] SARS-COV-2 COVID-19 2021-07-28 Completed [facility] rsity of PFIZER VACCINE 00:00:00 [facility] Influenza Virus 2021-07-28 Completed [facility] Vaccine 00:00:00 [facility] SARS-COV-2 COVID-19 2021-07-28 Completed [facility] rs[facility] of PFIZER VACCINE 00:00:00 [facility] Influenza Virus 2021-07-28 Completed [facility] Vaccine 00:00:00 [facility] SARS-COV-2 COVID-19 2021-07-28 Completed [facility] rs[facility] of PFIZER VACCINE 00:00:00 [facility] Influenza Virus 2021-07-28 Completed [facility] Vaccine 00:00:00 [facility] SARS-COV-2 COVID-19 2021-07-28 Completed [facility] rs[facility] of PFIZER VACCINE 00:00:00 [facility] Influenza Virus 2021-07-28 Completed [facility] Vaccine 00:00:00 [facility] SARS-COV-2 COVID-19 2021-07-28 Completed [facility] rs[facility] of PFIZER VACCINE 00:00:00 [facility] Influenza Virus 2021-07-28 Completed [facility] Vaccine 00:00:00 [facility] SARS-COV-2 COVID-19 2021-07-28 Completed [facility] rsity of PFIZER VACCINE 00:00:00 [facility] Influenza Virus 2021-07-28 Completed [facility] Vaccine 00:00:00 [facility] SARS-COV-2 COVID-19 2021-07-28 Completed [facility] rsity of PFIZER VACCINE 00:00:00 [facility] Influenza Virus 2021-07-28 Completed [facility] Vaccine 00:00:00 [facility] SARS-COV-2 COVID-19 2021-07-28 Completed [facility] rsity of PFIZER VACCINE 00:00:00 [facility] Influenza Virus 2021-07-28 Completed [facility] Vaccine 00:00:00 [facility] SARS-COV-2 COVID-19 2021-07-28 Completed [facility] of PFIZER VACCINE 00:00:00 [facility] Influenza Virus 2021-07-28 Completed [facility] Vaccine 00:00:00 [facility] SARS-COV-2 COVID-19 2021-07-28 Completed [facility] rs[facility] of PFIZER VACCINE 00:00:00 [facility] Influenza Virus 2021-07-28 Completed [facility] Vaccine 00:00:00 [facility] SARS-COV-2 COVID-19 2021-07-28 Completed [facility] rs[facility] of PFIZER VACCINE 00:00:00 [facility] Influenza Virus 2021-07-28 Completed [facility] Vaccine 00:00:00 [facility] SARS-COV-2 COVID-19 2021-07-28 Completed [facility] rs[facility] of PFIZER VACCINE 00:00:00 [facility] Influenza Virus 2021-07-28 Completed [facility] Vaccine 00:00:00 [facility] SARS-COV-2 COVID-19 2021-07-28 Completed [facility] rs[facility] of PFIZER VACCINE 00:00:00 [facility] Influenza Virus 2021-07-28 Completed [facility] Vaccine 00:00:00 [facility] SARS-COV-2 COVID-19 2021-07-28 Completed [facility] rsity of PFIZER VACCINE 00:00:00 [facility] Influenza Virus 2021-07-28 Completed [facility] Vaccine 00:00:00 [facility] SARS-COV-2 COVID-19 2021-07-28 Completed [facility] of PFIZER VACCINE 00:00:00 [facility] Influenza Virus 2021-07-28 Completed [facility] Vaccine 00:00:00 [facility] SARS-COV-2 COVID-19 2021-07-28 Completed [facility] of PFIZER VACCINE 00:00:00 [facility] Influenza Virus 2021-07-28 Completed [facility] Vaccine 00:00:00 [facility] SARS-COV-2 COVID-19 2021-07-28 Completed [facility] of PFIZER VACCINE 00:00:00 [facility] Influenza Virus 2021-07-28 Completed [facility] Vaccine 00:00:00 [facility] SARS-COV-2 COVID-19 2021-07-28 Completed [facility] of PFIZER VACCINE 00:00:00 [facility] Influenza Virus 2021-07-28 Completed [facility] Vaccine 00:00:00 [facility] SARS-COV-2 COVID-19 2021-07-28 Completed [facility] of PFIZER VACCINE 00:00:00 [facility] Influenza Virus 2021-07-28 Completed [facility] Vaccine 00:00:00 [facility] SARS-COV-2 COVID-19 2021-07-28 Completed [facility] of PFIZER VACCINE 00:00:00 [facility] Influenza Virus 2021-07-28 Completed [facility] Vaccine 00:00:00 [facility] SARS-COV-2 COVID-19 2021-07-28 Completed [facility] of PFIZER VACCINE 00:00:00 [facility] Influenza Virus 2021-07-28 Completed [facility] Vaccine 00:00:00 [facility] SARS-COV-2 COVID-19 2021-07-28 Completed [facility] of PFIZER VACCINE 00:00:00 [facility] Influenza Virus 2021-07-28 Completed [facility] Vaccine 00:00:00 [facility] SARS-COV-2 COVID-19 2021-07-28 Completed [facility] of PFIZER VACCINE 00:00:00 [facility] Influenza Virus 2021-07-28 Completed [facility] Vaccine 00:00:00 [facility] SARS-COV-2 COVID-19 2021-07-28 Completed [facility] of PFIZER VACCINE 00:00:00 [facility] Influenza Virus 2021-07-28 Completed [facility] Vaccine 00:00:00 [facility] SARS-COV-2 COVID-19 2021-07-28 Completed [facility] of PFIZER VACCINE 00:00:00 [facility] Influenza Virus 2021-07-28 Completed [facility] Vaccine 00:00:00 [facility] SARS-COV-2 COVID-19 2021-07-28 Completed [facility] rs[facility] of PFIZER VACCINE 00:00:00 [facility] Influenza Virus 2021-07-28 Completed [facility] Vaccine 00:00:00 [facility] SARS-COV-2 COVID-19 2021-07-28 Completed [facility] of PFIZER VACCINE 00:00:00 [facility] Influenza Virus 2021-07-28 Completed [facility] Vaccine 00:00:00 [facility] SARS-COV-2 COVID-19 2021-07-28 Completed [facility] of PFIZER VACCINE 00:00:00 [facility] Influenza Virus 2021-07-28 Completed [facility] Vaccine 00:00:00 [facility] SARS-COV-2 COVID-19 2021-07-28 Completed [facility] of PFIZER VACCINE 00:00:00 [facility] Influenza Virus 2021-07-28 Completed [facility] Vaccine 00:00:00 [facility] SARS-COV-2 COVID-19 2021-07-28 Completed [facility] of PFIZER VACCINE 00:00:00 [facility] Influenza Virus 2021-07-28 Completed [facility] Vaccine 00:00:00 [facility] SARS-COV-2 COVID-19 2021-07-28 Completed [facility] of PFIZER VACCINE 00:00:00 [facility] Influenza Virus 2021-07-28 Completed [facility] Vaccine 00:00:00 [facility] SARS-COV-2 COVID-19 2021-07-28 Completed [facility] of PFIZER VACCINE 00:00:00 [facility] Influenza Virus 2021-07-28 Completed [facility] Vaccine 00:00:00 [facility] SARS-COV-2 COVID-19 2021-07-28 Completed [facility] of PFIZER VACCINE 00:00:00 [facility] Influenza Virus 2021-07-28 Completed [facility] Vaccine 00:00:00 [facility] SARS-COV-2 COVID-19 2021-07-28 Completed [facility] of PFIZER VACCINE 00:00:00 [facility] Influenza Virus 2021-07-28 Completed [facility] Vaccine 00:00:00 [facility] SARS-COV-2 COVID-19 2021-07-28 Completed [facility] of PFIZER VACCINE 00:00:00 [facility] Influenza Virus 2021-07-28 Completed [facility] Vaccine 00:00:00 [facility] SARS-COV-2 COVID-19 2021-07-28 Completed [facility] of PFIZER VACCINE 00:00:00 [facility] Influenza Virus 2021-07-28 Completed [facility] Vaccine 00:00:00 [facility] SARS-COV-2 COVID-19 2021-07-28 Completed [facility] of PFIZER VACCINE 00:00:00 [facility] Influenza Virus 2021-07-28 Completed [facility] Vaccine 00:00:00 [facility] SARS-COV-2 COVID-19 2021-07-28 Completed [facility] of PFIZER VACCINE 00:00:00 [facility] Influenza Virus 2021-07-28 Completed [facility] Vaccine 00:00:00 [facility] SARS-COV-2 COVID-19 2021-07-28 Completed [facility] of PFIZER VACCINE 00:00:00 [facility] Influenza Virus 2021-07-28 Completed [facility] Vaccine 00:00:00 [facility] SARS-COV-2 COVID-19 2021-07-28 Completed [facility] of PFIZER VACCINE 00:00:00 [facility] Influenza Virus 2021-07-28 Completed [facility] Vaccine 00:00:00 [facility] SARS-COV-2 COVID-19 2021-07-28 Completed [facility] of PFIZER VACCINE 00:00:00 [facility] Influenza Virus 2021-07-28 Completed [facility] Vaccine 00:00:00 [facility] SARS-COV-2 COVID-19 2021-07-28 Completed [facility] of PFIZER VACCINE 00:00:00 [facility] Influenza Virus 2021-07-28 Completed [facility] Vaccine 00:00:00 [facility] SARS-COV-2 COVID-19 2021-07-28 Completed [facility] of PFIZER VACCINE 00:00:00 [facility] Influenza Virus 2021-07-28 Completed [facility] Vaccine 00:00:00 [facility] SARS-COV-2 COVID-19 2021-07-28 Completed [facility] of PFIZER VACCINE 00:00:00 [facility] Influenza Virus 2021-07-28 Completed [facility] Vaccine 00:00:00 [facility] SARS-COV-2 COVID-19 2021-07-28 Completed Unive [facility] PFIZER VACCINE 00:00:00 [facility] Influenza Virus 2021-07-28 Completed [facility] Vaccine 00:00:00 [facility] SARS-COV-2 COVID-19 2021-07-28 Completed [facility] PFIZER VACCINE 00:00:00 [facility] Influenza Virus 2021-07-28 Completed [facility] Vaccine 00:00:00 [facility] SARS-COV-2 COVID-19 2021-07-28 Completed [facility] PFIZER VACCINE 00:00:00 [facility] Influenza Virus 2021-07-28 Completed [facility] Vaccine 00:00:00 [facility] SARS-COV-2 COVID-19 2021-07-28 Completed [facility] PFIZER VACCINE 00:00:00 [facility] Influenza Virus 2021-07-28 Completed [facility] Vaccine 00:00:00 [facility] SARS-COV-2 COVID-19 2021-07-28 Completed [facility] PFIZER VACCINE 00:00:00 [facility] Influenza Virus 2021-07-28 Completed [facility] Vaccine 00:00:00 [facility] SARS-COV-2 COVID-19 2021-07-28 Completed [facility] PFIZER VACCINE 00:00:00 [facility] Influenza Virus 2021-07-28 Completed [facility] Vaccine 00:00:00 [facility] SARS-COV-2 COVID-19 2021-07-28 Completed [facility] PFIZER VACCINE 00:00:00 [facility] Influenza Virus 2021-07-28 Completed [facility] Vaccine 00:00:00 [facility] SARS-COV-2 COVID-19 2021-07-28 Completed [facility] PFIZER VACCINE 00:00:00 [facility] Influenza Virus 2021-07-28 Completed [facility] Vaccine 00:00:00 [facility] SARS-COV-2 COVID-19 2021-07-28 Completed [facility] PFIZER VACCINE 00:00:00 [facility] Influenza Virus 2021-07-28 Completed [facility] Vaccine 00:00:00 [facility] SARS-COV-2 COVID-19 2021-07-28 Completed [facility] PFIZER VACCINE 00:00:00 [facility] Influenza Virus 2021-07-28 Completed [facility] Vaccine 00:00:00 [facility] SARS-COV-2 COVID-19 2021-07-28 Completed [facility] PFIZER VACCINE 00:00:00 [facility] Influenza Virus 2021-07-28 Completed [facility] Vaccine 00:00:00 [facility] SARS-COV-2 COVID-19 2021-07-28 Completed [facility] PFIZER VACCINE 00:00:00 [facility] Influenza Virus 2021-07-28 Completed [facility] Vaccine 00:00:00 [facility] SARS-COV-2 COVID-19 2021-07-28 Completed [facility] PFIZER VACCINE 00:00:00 [facility] Influenza Virus 2021-07-28 Completed [facility] Vaccine 00:00:00 [facility] SARS-COV-2 COVID-19 2021-07-28 Completed [facility] PFIZER VACCINE 00:00:00 [facility] Influenza Virus 2021-07-28 Completed [facility] Vaccine 00:00:00 [facility] SARS-COV-2 COVID-19 2021-07-28 Completed [facility] PFIZER VACCINE 00:00:00 [facility] Influenza Virus 2021-07-28 Completed [facility] Vaccine 00:00:00 [facility] SARS-COV-2 COVID-19 2021-07-28 Completed [facility] PFIZER VACCINE 00:00:00 [facility] Influenza Virus 2021-07-28 Completed [facility] Vaccine 00:00:00 [facility] SARS-COV-2 COVID-19 2021-07-28 Completed [facility] PFIZER VACCINE 00:00:00 [facility] Influenza Virus 2021-07-28 Completed [facility] Vaccine 00:00:00 [facility] SARS-COV-2 COVID-19 2021-07-28 Completed [facility] PFIZER VACCINE 00:00:00 [facility] Influenza Virus 2021-07-28 Completed [facility] Vaccine 00:00:00 [facility] SARS-COV-2 COVID-19 2021-07-28 Completed [facility] PFIZER VACCINE 00:00:00 [facility] Influenza Virus 2021-07-28 Completed [facility] Vaccine 00:00:00 [facility] SARS-COV-2 COVID-19 2021-07-28 Completed [facility] PFIZER VACCINE 00:00:00 [facility] Influenza Virus 2021-07-28 Completed [facility] Vaccine 00:00:00 [facility] SARS-COV-2 COVID-19 2021-07-28 Completed [facility] PFIZER VACCINE 00:00:00 [facility] Influenza Virus 2021-07-28 Completed [facility] Vaccine 00:00:00 [facility] SARS-COV-2 COVID-19 2021-07-28 Completed [facility] PFIZER VACCINE 00:00:00 [facility] Influenza Virus 2021-07-28 Completed [facility] Vaccine 00:00:00 [facility] SARS-COV-2 COVID-19 2021-07-28 Completed [facility] PFIZER VACCINE 00:00:00 [facility] Influenza Virus 2021-07-28 Completed [facility] Vaccine 00:00:00 [facility] SARS-COV-2 COVID-19 2021-07-28 Completed [facility] PFIZER VACCINE 00:00:00 [facility] Influenza Virus 2021-07-28 Completed [facility] Vaccine 00:00:00 [facility] SARS-COV-2 COVID-19 2021-07-28 Completed [facility] PFIZER VACCINE 00:00:00 [facility] Influenza Virus 2021-07-28 Completed [facility] Vaccine 00:00:00 [facility] SARS-COV-2 COVID-19 2021-07-28 Completed [facility] PFIZER VACCINE 00:00:00 [facility] Influenza Virus 2021-07-28 Completed [facility] Vaccine 00:00:00 [facility] SARS-COV-2 COVID-19 2021-07-28 Completed [facility] PFIZER VACCINE 00:00:00 [facility] Influenza Virus 2021-07-28 Completed [facility] Vaccine 00:00:00 [facility] SARS-COV-2 COVID-19 2021-07-28 Completed [facility] PFIZER VACCINE 00:00:00 [facility] Influenza Virus 2021-07-28 Completed [facility] Vaccine 00:00:00 [facility] SARS-COV-2 COVID-19 2021-07-28 Completed [facility] PFIZER VACCINE 00:00:00 [facility] Influenza Virus 2021-07-28 Completed [facility] Vaccine 00:00:00 [facility] SARS-COV-2 COVID-19 2021-07-28 Completed [facility] PFIZER VACCINE 00:00:00 [facility] Influenza Virus 2021-07-28 Completed [facility] Vaccine 00:00:00 [facility] SARS-COV-2 COVID-19 2021-07-28 Completed [facility] PFIZER VACCINE 00:00:00 [facility] Influenza Virus 2021-07-28 Completed [facility] Vaccine 00:00:00 [facility] SARS-COV-2 COVID-19 2021-07-28 Completed [facility] PFIZER VACCINE 00:00:00 [facility] Influenza Virus 2021-07-28 Completed [facility] Vaccine 00:00:00 [facility] SARS-COV-2 COVID-19 2021-07-28 Completed [facility] PFIZER VACCINE 00:00:00 [facility] Influenza Virus 2021-07-28 Completed [facility] Vaccine 00:00:00 [facility] SARS-COV-2 COVID-19 2021-07-28 Completed [facility] PFIZER VACCINE 00:00:00 [facility] Influenza Virus 2021-07-28 Completed [facility] Vaccine 00:00:00 [facility] SARS-COV-2 COVID-19 2021-07-28 Completed [facility] PFIZER VACCINE 00:00:00 [facility] Influenza Virus 2021-07-28 Completed [facility] Vaccine 00:00:00 [facility] SARS-COV-2 COVID-19 2021-07-28 Completed [facility] PFIZER VACCINE 00:00:00 [facility] Influenza Virus 2021-07-28 Completed [facility] Vaccine 00:00:00 [facility] SARS-COV-2 COVID-19 2021-07-28 Completed [facility] PFIZER VACCINE 00:00:00 [facility] Influenza Virus 2021-07-28 Completed [facility] Vaccine 00:00:00 [facility] SARS-COV-2 COVID-19 2021-07-28 Completed [facility] PFIZER VACCINE 00:00:00 [facility] Influenza Virus 2021-07-28 Completed [facility] Vaccine 00:00:00 [facility] SARS-COV-2 COVID-19 2021-07-28 Completed [facility] PFIZER VACCINE 00:00:00 [facility] Influenza Virus 2021-07-28 Completed [facility] Vaccine 00:00:00 [facility] SARS-COV-2 COVID-19 2021-07-28 Completed [facility] PFIZER VACCINE 00:00:00 [facility] Influenza Virus 2021-07-28 Completed [facility] Vaccine 00:00:00 [facility] SARS-COV-2 COVID-19 2021-07-28 Completed [facility] PFIZER VACCINE 00:00:00 [facility] Influenza Virus 2021-07-28 Completed [facility] Vaccine 00:00:00 [facility] SARS-COV-2 COVID-19 2021-07-28 Completed [facility] PFIZER VACCINE 00:00:00 [facility] Influenza Virus 2021-07-28 Completed [facility] Vaccine 00:00:00 [facility] SARS-COV-2 COVID-19 2021-07-28 Completed [facility] PFIZER VACCINE 00:00:00 [facility] Influenza Virus 2021-07-28 Completed [facility] Vaccine 00:00:00 [facility] SARS-COV-2 COVID-19 2021-07-28 Completed [facility] PFIZER VACCINE 00:00:00 [facility] Influenza Virus 2021-07-28 Completed [facility] Vaccine 00:00:00 [facility] SARS-COV-2 COVID-19 2021-07-28 Completed [facility] PFIZER VACCINE 00:00:00 [facility] Influenza Virus 2021-07-28 Completed [facility] Vaccine 00:00:00 [facility] SARS-COV-2 COVID-19 2021-07-28 Completed [facility] PFIZER VACCINE 00:00:00 [facility] Influenza Virus 2021-07-28 Completed [facility] Vaccine 00:00:00 [facility] SARS-COV-2 COVID-19 2021-07-28 Completed [facility] PFIZER VACCINE 00:00:00 [facility] Influenza Virus 2021-07-28 Completed [facility] Vaccine 00:00:00 [facility] SARS-COV-2 COVID-19 2021-07-28 Completed [facility] PFIZER VACCINE 00:00:00 [facility] Influenza Virus 2021-07-28 Completed [facility] Vaccine 00:00:00 [facility] SARS-COV-2 COVID-19 2021-07-28 Completed [facility] PFIZER VACCINE 00:00:00 [facility] Influenza Virus 2021-07-28 Completed [facility] Vaccine 00:00:00 [facility] SARS-COV-2 COVID-19 2021-07-28 Completed [facility] PFIZER VACCINE 00:00:00 [facility] Influenza Virus 2021-07-28 Completed [facility] Vaccine 00:00:00 [facility] SARS-COV-2 COVID-19 2021-07-28 Completed [facility] PFIZER VACCINE 00:00:00 [facility] Influenza Virus 2021-07-28 Completed [facility] Vaccine 00:00:00 [facility] SARS-COV-2 COVID-19 2021-07-28 Completed [facility] PFIZER VACCINE 00:00:00 [facility] Influenza Virus 2021-07-28 Completed [facility] Vaccine 00:00:00 [facility] SARS-COV-2 COVID-19 2021-07-28 Completed [facility] PFIZER VACCINE 00:00:00 [facility] Influenza Virus 2021-07-28 Completed [facility] Vaccine 00:00:00 [facility] SARS-COV-2 COVID-19 2021-07-28 Completed [facility] PFIZER VACCINE 00:00:00 [facility] Influenza Virus 2021-07-28 Completed [facility] Vaccine 00:00:00 [facility] SARS-COV-2 COVID-19 2021-07-28 Completed [facility] PFIZER VACCINE 00:00:00 [facility] Influenza Virus 2021-07-28 Completed [facility] Vaccine 00:00:00 [facility] SARS-COV-2 COVID-19 2021-07-28 Completed [facility] PFIZER VACCINE 00:00:00 [facility] Influenza Virus 2021-07-28 Completed [facility] Vaccine 00:00:00 [facility] SARS-COV-2 COVID-19 2021-07-28 Completed [facility] PFIZER VACCINE 00:00:00 [facility] Influenza Virus 2021-07-28 Completed [facility] Vaccine 00:00:00 [facility] SARS-COV-2 COVID-19 2021-04-29 Completed [facility] of OSCAR/J&J VACCINE 00:00:00 [facility] SARS-COV-2 COVID-19 2021-04-29 Completed [facility] OSCAR/J&J VACCINE 00:00:00 [facility] SARS-COV-2 COVID-19 2021-04-29 Completed [facility] of OSCAR/J&J VACCINE 00:00:00 [facility] SARS-COV-2 COVID-19 2021-04-29 Completed [facility] OSCAR/J&J VACCINE 00:00:00 [facility] SARS-COV-2 COVID-19 2021-04-29 Completed [facility] of OSACR/J&J VACCINE 00:00:00 [facility] SARS-COV-2 COVID-19 2021-04-29 Completed [facility] of OSCAR/J&J VACCINE 00:00:00 [facility] SARS-COV-2 COVID-19 2021-04-29 Completed [facility] of OSCAR/J&J VACCINE 00:00:00 [facility] SARS-COV-2 COVID-19 2021-04-29 Completed [facility] of OSCAR/J&J VACCINE 00:00:00 [facility] SARS-COV-2 COVID-19 2021-04-29 Completed [facility] of OSCAR/J&J VACCINE 00:00:00 [facility] SARS-COV-2 COVID-19 2021-04-29 Completed [facility] of OSCAR/J&J VACCINE 00:00:00 [facility] SARS-COV-2 COVID-19 2021-04-29 Completed [facility] of OSCAR/J&J VACCINE 00:00:00 [facility] SARS-COV-2 COVID-19 2021-04-29 Completed [facility] of OSCAR/J&J VACCINE 00:00:00 [facility] SARS-COV-2 COVID-19 2021-04-29 Completed [facility] of OSCAR/J&J VACCINE 00:00:00 [facility] SARS-COV-2 COVID-19 2021-04-29 Completed [facility] of OSCAR/J&J VACCINE 00:00:00 [facility] SARS-COV-2 COVID-19 2021-04-29 Completed [facility] of OSCAR/J&J VACCINE 00:00:00 [facility] SARS-COV-2 COVID-19 2021-04-29 Completed [facility] of OSCAR/J&J VACCINE 00:00:00 [facility] SARS-COV-2 COVID-19 2021-04-29 Completed [facility] of OSCAR/J&J VACCINE 00:00:00 [facility] SARS-COV-2 COVID-19 2021-04-29 Completed [facility] of OSCAR/J&J VACCINE 00:00:00 [facility] SARS-COV-2 COVID-19 2021-04-29 Completed [facility] of OSCAR/J&J VACCINE 00:00:00 [facility] SARS-COV-2 COVID-19 2021-04-29 Completed [facility] OSCAR/J&J VACCINE 00:00:00 [facility] SARS-COV-2 COVID-19 2021-04-29 Completed [facility] of OSCAR/J&J VACCINE 00:00:00 [facility] SARS-COV-2 COVID-19 2021-04-29 Completed [facility] of OSCAR/J&J VACCINE 00:00:00 [facility] SARS-COV-2 COVID-19 2021-04-29 Completed [facility] OSCAR/J&J VACCINE 00:00:00 [facility] SARS-COV-2 COVID-19 2021-04-29 Completed [facility] of OSCAR/J&J VACCINE 00:00:00 [facility] SARS-COV-2 COVID-19 2021-04-29 Completed [facility] of OSCAR/J&J VACCINE 00:00:00 [facility] SARS-COV-2 COVID-19 2021-04-29 Completed [facility] of OSCAR/J&J VACCINE 00:00:00 [facility] SARS-COV-2 COVID-19 2021-04-29 Completed [facility] of OSCAR/J&J VACCINE 00:00:00 [facility] SARS-COV-2 COVID-19 2021-04-29 Completed [facility] of OSCAR/J&J VACCINE 00:00:00 [facility] SARS-COV-2 COVID-19 2021-04-29 Completed [facility] of OSCAR/J&J VACCINE 00:00:00 [facility] SARS-COV-2 COVID-19 2021-04-29 Completed [facility] of OSCAR/J&J VACCINE 00:00:00 [facility] SARS-COV-2 COVID-19 2021-04-29 Completed [facility] of OSCAR/J&J VACCINE 00:00:00 [facility] SARS-COV-2 COVID-19 2021-04-29 Completed [facility] of OSCAR/J&J VACCINE 00:00:00 [facility] SARS-COV-2 COVID-19 2021-04-29 Completed [facility] OSCAR/J&J VACCINE 00:00:00 [facility] SARS-COV-2 COVID-19 2021-04-29 Completed [facility] of OSCAR/J&J VACCINE 00:00:00 [facility] SARS-COV-2 COVID-19 2021-04-29 Completed [facility] of OSCAR/J&J VACCINE 00:00:00 [facility] SARS-COV-2 COVID-19 2021-04-29 Completed [facility] of OSCAR/J&J VACCINE 00:00:00 [facility] SARS-COV-2 COVID-19 2021-04-29 Completed [facility] of OSCAR/J&J VACCINE 00:00:00 [facility] SARS-COV-2 COVID-19 2021-04-29 Completed [facility] of OSCAR/J&J VACCINE 00:00:00 [facility] SARS-COV-2 COVID-19 2021-04-29 Completed [facility] of OSCAR/J&J VACCINE 00:00:00 [facility] SARS-COV-2 COVID-19 2021-04-29 Completed [facility] of OSCAR/J&J VACCINE 00:00:00 [facility] SARS-COV-2 COVID-19 2021-04-29 Completed [facility] of OSCAR/J&J VACCINE 00:00:00 [facility] SARS-COV-2 COVID-19 2021-04-29 Completed [facility] of OSCAR/J&J VACCINE 00:00:00 [facility] SARS-COV-2 COVID-19 2021-04-29 Completed [facility] of OSCAR/J&J VACCINE 00:00:00 [facility] SARS-COV-2 COVID-19 2021-04-29 Completed [facility] of OSCAR/J&J VACCINE 00:00:00 [facility] SARS-COV-2 COVID-19 2021-04-29 Completed [facility] of OSCAR/J&J VACCINE 00:00:00 [facility] SARS-COV-2 COVID-19 2021-04-29 Completed [facility] of OSCAR/J&J VACCINE 00:00:00 [facility] SARS-COV-2 COVID-19 2021-04-29 Completed [facility] of OSCAR/J&J VACCINE 00:00:00 [facility] SARS-COV-2 COVID-19 2021-04-29 Completed [facility] of OSCAR/J&J VACCINE 00:00:00 [facility] SARS-COV-2 COVID-19 2021-04-29 Completed [facility] OSCAR/J&J VACCINE 00:00:00 [facility] SARS-COV-2 COVID-19 2021-04-29 Completed [facility] OSCAR/J&J VACCINE 00:00:00 [facility] SARS-COV-2 COVID-19 2021-04-29 Completed [facility] OSCAR/J&J VACCINE 00:00:00 [facility] SARS-COV-2 COVID-19 2021-04-29 Completed [facility] OSCAR/J&J VACCINE 00:00:00 [facility] SARS-COV-2 COVID-19 2021-04-29 Completed [facility] of OSCAR/J&J VACCINE 00:00:00 [facility] SARS-COV-2 COVID-19 2021-04-29 Completed [facility] OSCAR/J&J VACCINE 00:00:00 [facility] SARS-COV-2 COVID-19 2021-04-29 Completed [facility] OSCAR/J&J VACCINE 00:00:00 [facility] SARS-COV-2 COVID-19 2021-04-29 Completed [facility] of OSCAR/J&J VACCINE 00:00:00 [facility] SARS-COV-2 COVID-19 2021-04-29 Completed [facility] of OSCAR/J&J VACCINE 00:00:00 [facility] SARS-COV-2 COVID-19 2021-04-29 Completed [facility] OSCAR/J&J VACCINE 00:00:00 [facility] SARS-COV-2 COVID-19 2021-04-29 Completed [facility] of OSCAR/J&J VACCINE 00:00:00 [facility] SARS-COV-2 COVID-19 2021-04-29 Completed [facility] OSCAR/J&J VACCINE 00:00:00 [facility] SARS-COV-2 COVID-19 2021-04-29 Completed [facility] OSCAR/J&J VACCINE 00:00:00 [facility] SARS-COV-2 COVID-19 2021-04-29 Completed [facility] of OSCAR/J&J VACCINE 00:00:00 [facility] SARS-COV-2 COVID-19 2021-04-29 Completed [facility] OSCAR/J&J VACCINE 00:00:00 [facility] SARS-COV-2 COVID-19 2021-04-29 Completed [facility] OSCAR/J&J VACCINE 00:00:00 [facility] SARS-COV-2 COVID-19 2021-04-29 Completed [facility] OSCAR/J&J VACCINE 00:00:00 [facility] SARS-COV-2 COVID-19 2021-04-29 Completed [facility] of OSCAR/J&J VACCINE 00:00:00 [facility] SARS-COV-2 COVID-19 2021-04-29 Completed [facility] OSCAR/J&J VACCINE 00:00:00 [facility] SARS-COV-2 COVID-19 2021-04-29 Completed [facility] OSCAR/J&J VACCINE 00:00:00 [facility] SARS-COV-2 COVID-19 2021-04-29 Completed [facility] OSCAR/J&J VACCINE 00:00:00 [facility] SARS-COV-2 COVID-19 2021-04-29 Completed [facility] OSCAR/J&J VACCINE 00:00:00 [facility] SARS-COV-2 COVID-19 2021-04-29 Completed [facility] OSCAR/J&J VACCINE 00:00:00 [facility] SARS-COV-2 COVID-19 2021-04-29 Completed [facility] of OSCAR/J&J VACCINE 00:00:00 [facility] SARS-COV-2 COVID-19 2021-04-29 Completed [facility] OSCAR/J&J VACCINE 00:00:00 [facility] SARS-COV-2 COVID-19 2021-04-29 Completed [facility] OSCAR/J&J VACCINE 00:00:00 [facility] SARS-COV-2 COVID-19 2021-04-29 Completed [facility] OSCAR/J&J VACCINE 00:00:00 [facility] SARS-COV-2 COVID-19 2021-04-29 Completed [facility] OSCAR/J&J VACCINE 00:00:00 [facility] SARS-COV-2 COVID-19 2021-04-29 Completed [facility] OSCAR/J&J VACCINE 00:00:00 [facility] SARS-COV-2 COVID-19 2021-04-29 Completed [facility] OSCAR/J&J VACCINE 00:00:00 [facility] SARS-COV-2 COVID-19 2021-04-29 Completed [facility] OSCAR/J&J VACCINE 00:00:00 [facility] SARS-COV-2 COVID-19 2021-04-29 Completed [facility] OSCAR/J&J VACCINE 00:00:00 [facility] SARS-COV-2 COVID-19 2021-04-29 Completed [facility] OSCAR/J&J VACCINE 00:00:00 [facility] SARS-COV-2 COVID-19 2021-04-29 Completed [facility] OSCAR/J&J VACCINE 00:00:00 [facility] SARS-COV-2 COVID-19 2021-04-29 Completed [facility] OSCAR/J&J VACCINE 00:00:00 [facility] SARS-COV-2 COVID-19 2021-04-29 Completed [facility] OSCAR/J&J VACCINE 00:00:00 [facility] SARS-COV-2 COVID-19 2021-04-29 Completed [facility] OSCAR/J&J VACCINE 00:00:00 [facility] SARS-COV-2 COVID-19 2021-04-29 Completed [facility] OSCAR/J&J VACCINE 00:00:00 [facility] SARS-COV-2 COVID-19 2021-04-29 Completed [facility] OSCAR/J&J VACCINE 00:00:00 [facility] SARS-COV-2 COVID-19 2021-04-29 Completed [facility] OSCAR/J&J VACCINE 00:00:00 [facility] SARS-COV-2 COVID-19 2021-04-29 Completed [facility] OSCAR/J&J VACCINE 00:00:00 [facility] SARS-COV-2 COVID-19 2021-04-29 Completed [facility] OSCAR/J&J VACCINE 00:00:00 [facility] SARS-COV-2 COVID-19 2021-04-29 Completed [facility] OSCAR/J&J VACCINE 00:00:00 [facility] SARS-COV-2 COVID-19 2021-04-29 Completed [facility] OSCAR/J&J VACCINE 00:00:00 [facility] SARS-COV-2 COVID-19 2021-04-29 Completed [facility] OSCAR/J&J VACCINE 00:00:00 [facility] SARS-COV-2 COVID-19 2021-04-29 Completed [facility] OSCAR/J&J VACCINE 00:00:00 [facility] SARS-COV-2 COVID-19 2021-04-29 Completed [facility] OSCAR/J&J VACCINE 00:00:00 [facility] SARS-COV-2 COVID-19 2021-04-29 Completed [facility] OSCAR/J&J VACCINE 00:00:00 [facility] SARS-COV-2 COVID-19 2021-04-29 Completed [facility] OSCAR/J&J VACCINE 00:00:00 [facility] SARS-COV-2 COVID-19 2021-04-29 Completed [facility] OSCAR/J&J VACCINE 00:00:00 [facility] SARS-COV-2 COVID-19 2021-04-29 Completed [facility] OSCAR/J&J VACCINE 00:00:00 [facility] SARS-COV-2 COVID-19 2021-04-29 Completed [facility] OSCAR/J&J VACCINE 00:00:00 [facility] SARS-COV-2 COVID-19 2021-04-29 Completed [facility] OSCAR/J&J VACCINE 00:00:00 [facility] SARS-COV-2 COVID-19 2021-04-29 Completed [facility] OSCAR/J&J VACCINE 00:00:00 [facility] SARS-COV-2 COVID-19 2021-04-29 Completed [facility] of OSCAR/J&J VACCINE 00:00:00 [facility] SARS-COV-2 COVID-19 2021-04-29 Completed [facility] OSCAR/J&J VACCINE 00:00:00 [facility] SARS-COV-2 COVID-19 2021-04-29 Completed [facility] OSCAR/J&J VACCINE 00:00:00 [facility] SARS-COV-2 COVID-19 2021-04-29 Completed [facility] OSCAR/J&J VACCINE 00:00:00 [facility] SARS-COV-2 COVID-19 2021-04-29 Completed [facility] of OSCAR/J&J VACCINE 00:00:00 [facility] SARS-COV-2 COVID-19 2021-04-29 Completed [facility] of OSCAR/J&J VACCINE 00:00:00 [facility] SARS-COV-2 COVID-19 2021-04-29 Completed [facility] of OSCAR/J&J VACCINE 00:00:00 [facility] SARS-COV-2 COVID-19 2021-04-29 Completed [facility] of OSCAR/J&J VACCINE 00:00:00 [facility] SARS-COV-2 COVID-19 2021-04-29 Completed [facility] of OSCAR/J&J VACCINE 00:00:00 [facility] SARS-COV-2 COVID-19 2021-04-29 Completed [facility] of OSCAR/J&J VACCINE 00:00:00 [facility] SARS-COV-2 COVID-19 2021-04-29 Completed [facility] of OSCAR/J&J VACCINE 00:00:00 [facility] SARS-COV-2 COVID-19 2021-04-29 Completed [facility] of OSCAR/J&J VACCINE 00:00:00 [facility] SARS-COV-2 COVID-19 2021-04-29 Completed [facility] of OSCAR/J&J VACCINE 00:00:00 [facility] Influenza Virus 2020-08-11 Completed [facility]it [facility] of [...] y of Vaccine Quad .5 mL 00:00:00 [facility] (FLUZONE/FLULAVAL/F LUARIX) Influenza Virus 2020-08-11 Completed [facility] Vaccine Quad .5 mL 00:00:00 [facility] (FLUZONE/FLULAVAL/F LUARIX) Influenza Virus 2020-08-11 Completed [facility] Vaccine Quad .5 mL 00:00:00 [facility] (FLUZONE/FLULAVAL/F LUARIX) Influenza Virus 2020-08-11 Completed [facility] Vaccine Quad .5 mL 00:00:00 [facility] (FLUZONE/FLULAVAL/F LUARIX) Influenza Virus 2020-08-11 Completed [facility] Vaccine Quad .5 mL 00:00:00 [facility] (FLUZONE/FLULAVAL/F LUARIX) Influenza Virus 2020-08-11 Completed [facility] Vaccine Quad .5 mL 00:00:00 [facility] (FLUZONE/FLULAVAL/F LUARIX) Influenza Virus 2020-08-11 Completed [facility] Vaccine Quad .5 mL 00:00:00 [facility] (FLUZONE/FLULAVAL/F LUARIX) Influenza Virus 2020-08-11 Completed [facility] Vaccine Quad .5 mL 00:00:00 [facility] (FLUZONE/FLULAVAL/F LUARIX) Influenza Virus 2020-08-11 Completed [facility] Vaccine Quad .5 mL 00:00:00 [facility] 6+ MO [facility] (FLUZONE/FLULAVAL/F LUARIX) Influenza Virus 2019-07-31 Completed [facility] Vaccine 00:00:00 [facility] Influenza Virus 2019-07-31 Completed [facility] of Vaccine 00:00:00 [facility] Influenza Virus 2019-07-31 Completed [facility] of Vaccine 00:00:00 [facility] Influenza Virus 2019-07-31 Completed [facility] of Vaccine 00:00:00 [facility] Influenza Virus 2019-07-31 Completed [facility] of Vaccine 00:00:00 [facility] Influenza Virus 2019-07-31 Completed [facility] of Vaccine 00:00:00 [facility] Influenza Virus 2019-07-31 Completed [facility] of Vaccine 00:00:00 [facility] Influenza Virus 2019-07-31 Completed [facility] Vaccine 00:00:00 [facility] Influenza Virus 2019-07-31 Completed [facility] Vaccine 00:00:00 [facility] Influenza Virus 2019-07-31 Completed [facility] Vaccine 00:00:00 [facility] Influenza Virus 2019-07-31 Completed [facility] Vaccine 00:00:00 [facility] Influenza Virus 2019-07-31 Completed [facility] Vaccine 00:00:00 [facility] Influenza Virus 2019-07-31 Completed [facility] Vaccine 00:00:00 [facility] Influenza Virus 2019-07-31 Completed [facility] Vaccine 00:00:00 [facility] Influenza Virus 2019-07-31 Completed [facility] Vaccine 00:00:00 [facility] Influenza Virus 2019-07-31 Completed [facility] Vaccine 00:00:00 [facility] Influenza Virus 2019-07-31 Completed [facility] Vaccine 00:00:00 [facility] Influenza Virus 2019-07-31 Completed [facility] Vaccine 00:00:00 [facility] Influenza Virus 2019-07-31 Completed [facility] Vaccine 00:00:00 [facility] Influenza Virus 2019-07-31 Completed [facility] Vaccine 00:00:00 [facility] Influenza Virus 2019-07-31 Completed [facility] Vaccine 00:00:00 [facility] Influenza Virus 2019-07-31 Completed [facility] Vaccine 00:00:00 [facility] Influenza Virus 2019-07-31 Completed [facility] of Vaccine 00:00:00 [facility] Influenza Virus 2019-07-31 Completed [facility] of Vaccine 00:00:00 [facility] Influenza Virus 2019-07-31 Completed [facility] Vaccine 00:00:00 [facility] Influenza Virus 2019-07-31 Completed [facility] Vaccine 00:00:00 [facility] Influenza Virus 2019-07-31 Completed [facility] Vaccine 00:00:00 [facility] Influenza Virus 2019-07-31 Completed [facility] Vaccine 00:00:00 [facility] Influenza Virus 2019-07-31 Completed [facility] Vaccine 00:00:00 [facility] Influenza Virus 2019-07-31 Completed [facility] Vaccine 00:00:00 [facility] Influenza Virus 2019-07-31 Completed [facility] Vaccine 00:00:00 [facility] Influenza Virus 2019-07-31 Completed [facility] Vaccine 00:00:00 [facility] Influenza Virus 2019-07-31 Completed [facility] Vaccine 00:00:00 [facility] Influenza Virus 2019-07-31 Completed [facility] of Vaccine 00:00:00 [facility] Influenza Virus 2019-07-31 Completed [facility] of Vaccine 00:00:00 [facility] Influenza Virus 2019-07-31 Completed [facility] Vaccine 00:00:00 [facility] Influenza Virus 2019-07-31 Completed [facility] of Vaccine 00:00:00 [facility] Influenza Virus 2019-07-31 Completed [facility] Vaccine 00:00:00 [facility] Influenza Virus 2019-07-31 Completed [facility] Vaccine 00:00:00 [facility] Influenza Virus 2019-07-31 Completed [facility] Vaccine 00:00:00 [facility] Influenza Virus 2019-07-31 Completed [facility] Vaccine 00:00:00 [facility] Influenza Virus 2019-07-31 Completed [facility] Vaccine 00:00:00 [facility] Influenza Virus 2019-07-31 Completed [facility] Vaccine 00:00:00 [facility] Influenza Virus 2019-07-31 Completed [facility] of Vaccine 00:00:00 [facility] Influenza Virus 2019-07-31 Completed [facility] Vaccine 00:00:00 [facility] Influenza Virus 2019-07-31 Completed [facility] Vaccine 00:00:00 [facility] Influenza Virus 2019-07-31 Completed [facility] of Vaccine 00:00:00 [facility] Influenza Virus 2019-07-31 Completed [facility] of Vaccine 00:00:00 [facility] Influenza Virus 2019-07-31 Completed [facility] of Vaccine 00:00:00 [facility] Influenza Virus 2019-07-31 Completed [facility] Vaccine 00:00:00 [facility] Influenza Virus 2019-07-31 Completed [facility] Vaccine 00:00:00 [facility] Influenza Virus 2019-07-31 Completed [facility] Vaccine 00:00:00 [facility] Influenza Virus 2019-07-31 Completed [facility] Vaccine 00:00:00 [facility] Influenza Virus 2019-07-31 Completed [facility] Vaccine 00:00:00 [facility] Influenza Virus 2019-07-31 Completed [facility] Vaccine 00:00:00 [facility] Influenza Virus 2019-07-31 Completed [facility] Vaccine 00:00:00 [facility] Influenza Virus 2019-07-31 Completed [facility] Vaccine 00:00:00 [facility] Influenza Virus 2019-07-31 Completed [facility] Vaccine 00:00:00 [facility] Influenza Virus 2019-07-31 Completed [facility] Vaccine 00:00:00 [facility] Influenza Virus 2019-07-31 Completed [facility] Vaccine 00:00:00 [facility] Influenza Virus 2019-07-31 Completed [facility] Vaccine 00:00:00 [facility] Influenza Virus 2019-07-31 Completed [facility] Vaccine 00:00:00 [facility] Influenza Virus 2019-07-31 Completed [facility] Vaccine 00:00:00 [facility] Influenza Virus 2019-07-31 Completed [facility] Vaccine 00:00:00 [facility] Influenza Virus 2019-07-31 Completed [facility] Vaccine 00:00:00 [facility] Influenza Virus 2019-07-31 Completed [facility] Vaccine 00:00:00 [facility] Influenza Virus 2019-07-31 Completed [facility] Vaccine 00:00:00 [facility] Influenza Virus 2019-07-31 Completed [facility] Vaccine 00:00:00 [facility] Influenza Virus 2019-07-31 Completed [facility] Vaccine 00:00:00 [facility] Influenza Virus 2019-07-31 Completed [facility] Vaccine 00:00:00 [facility] Influenza Virus 2019-07-31 Completed [facility] Vaccine 00:00:00 [facility] Influenza Virus 2019-07-31 Completed [facility] Vaccine 00:00:00 [facility] Influenza Virus 2019-07-31 Completed [facility] Vaccine 00:00:00 [facility] Influenza Virus 2019-07-31 Completed [facility] Vaccine 00:00:00 [facility] Influenza Virus 2019-07-31 Completed [facility] Vaccine 00:00:00 [facility] Influenza Virus 2019-07-31 Completed [facility] Vaccine 00:00:00 [facility] Influenza Virus 2019-07-31 Completed [facility] Vaccine 00:00:00 [facility] Influenza Virus 2019-07-31 Completed [facility] Vaccine 00:00:00 [facility] Influenza Virus 2019-07-31 Completed [facility] Vaccine 00:00:00 [facility] Influenza Virus 2019-07-31 Completed [facility] Vaccine 00:00:00 [facility] Influenza Virus 2019-07-31 Completed [facility] Vaccine 00:00:00 [facility] Influenza Virus 2019-07-31 Completed [facility] Vaccine 00:00:00 [facility] Influenza Virus 2019-07-31 Completed [facility] Vaccine 00:00:00 [facility] Influenza Virus 2019-07-31 Completed [facility] Vaccine 00:00:00 [facility] Influenza Virus 2019-07-31 Completed [facility] Vaccine 00:00:00 [facility] Influenza Virus 2019-07-31 Completed [facility] Vaccine 00:00:00 [facility] Influenza Virus 2019-07-31 Completed [facility] Vaccine 00:00:00 [facility] Influenza Virus 2019-07-31 Completed [facility] Vaccine 00:00:00 [facility] Influenza Virus 2019-07-31 Completed [facility] Vaccine 00:00:00 [facility] Influenza Virus 2019-07-31 Completed [facility] Vaccine 00:00:00 [facility] Influenza Virus 2019-07-31 Completed [facility] Vaccine 00:00:00 [facility] Influenza Virus 2019-07-31 Completed [facility] Vaccine 00:00:00 [facility] Influenza Virus 2019-07-31 Completed [facility] Vaccine 00:00:00 [facility] Influenza Virus 2019-07-31 Completed [facility] Vaccine 00:00:00 [facility] Influenza Virus 2019-07-31 Completed [facility] Vaccine 00:00:00 [facility] Influenza Virus 2019-07-31 Completed [facility] Vaccine 00:00:00 [facility] Influenza Virus 2019-07-31 Completed [facility] Vaccine 00:00:00 [facility] Influenza Virus 2019-07-31 Completed [facility] Vaccine 00:00:00 [facility] Influenza Virus 2019-07-31 Completed [facility] Vaccine 00:00:00 [facility] Influenza Virus 2019-07-31 Completed [facility] Vaccine 00:00:00 [facility] Influenza Virus 2019-07-31 Completed [facility] Vaccine 00:00:00 [facility] Influenza Virus 2019-07-31 Completed [facility] Vaccine 00:00:00 [facility] Influenza Virus 2019-07-31 Completed [facility] Vaccine 00:00:00 [facility] Influenza Virus 2019-07-31 Completed [facility] Vaccine 00:00:00 [facility] Influenza Virus 2019-07-31 Completed [facility] Vaccine 00:00:00 [facility] Influenza Virus 2019-07-31 Completed [facility] Vaccine 00:00:00 [facility] Influenza Virus 2019-07-31 Completed [facility] Vaccine 00:00:00 [facility] Influenza Virus 2019-07-31 Completed [facility] Vaccine 00:00:00 [facility] Influenza Virus 2019-07-31 Completed [facility] Vaccine 00:00:00 [facility] Influenza Virus 2019-07-31 Completed [facility] Vaccine 00:00:00 [facility] Influenza Virus 2019-07-31 Completed [facility] Vaccine 00:00:00 [facility] Influenza Virus 2019-07-31 Completed [facility] Vaccine 00:00:00 [facility] Influenza Virus 2019-07-31 Completed [facility] Vaccine 00:00:00 [facility] Influenza Virus 2019-07-31 Completed [facility] Vaccine 00:00:00 [facility] Influenza Virus 2019-07-31 Completed [facility] Vaccine 00:00:00 [facility] Zoster Vaccine 2018-11-27 Completed [facility] of Recombinant 00:00:00 [facility] Zoster Vaccine 2018-11-27 Completed [facility] of Recombinant 00:00:00 [facility] Zoster Vaccine 2018-11-27 Completed [facility] of Recombinant 00:00:00 [facility] Zoster Vaccine 2018-11-27 Completed [facility] Recombinant [...] Vaccine 2018-11-27 Completed [facility] Recombinant 00:00:00 [facility] Zoster Vaccine 2018-11-27 Completed [facility] Recombinant 00:00:00 [facility] Zoster Vaccine 2018-11-27 Completed [facility] Recombinant 00:00:00 [facility] Zoster Vaccine 2018-11-27 Completed [facility] of Recombinant 00:00:00 [facility] Zoster Vaccine 2018-11-27 Completed [facility] Recombinant 00:00:00 [facility] Zoster Vaccine 2018-11-27 Completed [facility] Recombinant 00:00:00 [facility] Zoster Vaccine 2018-11-27 Completed [facility] of Recombinant 00:00:00 [facility] Zoster Vaccine 2018-11-27 Completed [facility] Recombinant 00:00:00 [facility] Zoster Vaccine 2018-11-27 Completed [facility] Recombinant 00:00:00 [facility] Zoster Vaccine 2018-11-27 Completed [facility] of Recombinant 00:00:00 [facility] Zoster Vaccine 2018-11-27 Completed [facility] of Recombinant 00:00:00 [facility] Zoster Vaccine 2018-11-27 Completed [facility] Recombinant 00:00:00 [facility] Zoster Vaccine 2018-11-27 Completed [facility] Recombinant 00:00:00 [facility] Zoster Vaccine 2018-11-27 Completed [facility] Recombinant 00:00:00 [facility] Zoster Vaccine 2018-11-27 Completed [facility] Recombinant 00:00:00 [facility] Zoster Vaccine 2018-11-27 Completed [facility] Recombinant 00:00:00 [facility] Zoster Vaccine 2018-11-27 Completed [facility] Recombinant 00:00:00 [facility] Zoster Vaccine 2018-11-27 Completed [facility] Recombinant 00:00:00 [facility] Zoster Vaccine 2018-11-27 Completed [facility] Recombinant 00:00:00 [facility] Zoster Vaccine 2018-11-27 Completed [facility] Recombinant 00:00:00 [facility] Zoster Vaccine 2018-11-27 Completed [facility] Recombinant 00:00:00 [facility] Zoster Vaccine 2018-11-27 Completed [facility] Recombinant 00:00:00 [facility] Zoster Vaccine 2018-11-27 Completed [facility] Recombinant 00:00:00 [facility] Zoster Vaccine 2018-11-27 Completed [facility] Recombinant 00:00:00 [facility] Zoster Vaccine 2018-11-27 Completed [facility] Recombinant 00:00:00 [facility] Zoster Vaccine 2018-11-27 Completed [facility] Recombinant 00:00:00 [facility] Zoster Vaccine 2018-11-27 Completed [facility] Recombinant 00:00:00 [facility] Zoster Vaccine 2018-11-27 Completed [facility] Recombinant 00:00:00 [facility] Zoster Vaccine 2018-11-27 Completed [facility] Recombinant 00:00:00 [facility] Zoster Vaccine 2018-11-27 Completed [facility] Recombinant 00:00:00 [facility] Zoster Vaccine 2018-11-27 Completed [facility] Recombinant 00:00:00 [facility] Zoster Vaccine 2018-11-27 Completed [facility] Recombinant 00:00:00 [facility] Zoster Vaccine 2018-11-27 Completed [facility] Recombinant 00:00:00 [facility] Zoster Vaccine 2018-11-27 Completed [facility] Recombinant 00:00:00 [facility] Zoster Vaccine 2018-11-27 Completed [facility] Recombinant 00:00:00 [facility] Zoster Vaccine 2018-11-27 Completed [facility] Recombinant 00:00:00 [facility] Zoster Vaccine 2018-11-27 Completed [facility] Recombinant 00:00:00 [facility] Zoster Vaccine 2018-11-27 Completed [facility] Recombinant 00:00:00 [facility] Zoster Vaccine 2018-11-27 Completed [facility] Recombinant 00:00:00 [facility] Zoster Vaccine 2018-11-27 Completed [facility] Recombinant 00:00:00 [facility] Zoster Vaccine 2018-11-27 Completed [facility] Recombinant 00:00:00 [facility] Zoster Vaccine 2018-11-27 Completed [facility] Recombinant 00:00:00 [facility] Zoster Vaccine 2018-11-27 Completed [facility] Recombinant 00:00:00 [facility] Zoster Vaccine 2018-11-27 Completed [facility] Recombinant 00:00:00 [facility] Zoster Vaccine 2018-11-27 Completed [facility] Recombinant 00:00:00 [facility] Zoster Vaccine 2018-11-27 Completed [facility] Recombinant 00:00:00 [facility] Zoster Vaccine 2018-11-27 Completed [facility] Recombinant 00:00:00 [facility] Zoster Vaccine 2018-11-27 Completed [facility] Recombinant 00:00:00 [facility] Zoster Vaccine 2018-11-27 Completed [facility] Recombinant 00:00:00 [facility] Zoster Vaccine 2018-11-27 Completed [facility] Recombinant 00:00:00 [facility] Zoster Vaccine 2018-11-27 Completed [facility] Recombinant 00:00:00 [facility] Zoster Vaccine 2018-11-27 Completed [facility] Recombinant 00:00:00 [facility] Zoster Vaccine 2018-11-27 Completed [facility] Recombinant 00:00:00 [facility] Zoster Vaccine 2018-11-27 Completed [facility] Recombinant 00:00:00 [facility] Zoster Vaccine 2018-11-27 Completed [facility] Recombinant 00:00:00 [facility] Zoster Vaccine 2018-11-27 Completed [facility] Recombinant 00:00:00 [facility] Zoster Vaccine 2018-11-27 Completed [facility] Recombinant 00:00:00 [facility] Zoster Vaccine 2018-11-27 Completed [facility] Recombinant 00:00:00 [facility] Zoster Vaccine 2018-11-27 Completed [facility] Recombinant 00:00:00 [facility] Zoster Vaccine 2018-11-27 Completed [facility] Recombinant 00:00:00 [facility] Zoster Vaccine 2018-11-27 Completed [facility] Recombinant 00:00:00 [facility] Zoster Vaccine 2018-11-27 Completed [facility] Recombinant 00:00:00 [facility] Zoster Vaccine 2018-11-27 Completed [facility] Recombinant 00:00:00 [facility] Zoster Vaccine 2018-11-27 Completed [facility] Recombinant 00:00:00 [facility] Zoster Vaccine 2018-11-27 Completed [facility] Recombinant 00:00:00 [facility] Zoster Vaccine 2018-11-27 Completed [facility] Recombinant 00:00:00 [facility] Zoster Vaccine 2018-11-27 Completed [facility] Recombinant 00:00:00 [facility] Zoster Vaccine 2018-11-27 Completed [facility] Recombinant 00:00:00 [facility] Zoster Vaccine 2018-11-27 Completed [facility] Recombinant 00:00:00 [facility] Zoster Vaccine 2018-11-27 Completed [facility] Recombinant 00:00:00 [facility] Zoster Vaccine 2018-11-27 Completed [facility] Recombinant 00:00:00 [facility] Zoster Vaccine 2018-11-27 Completed [facility] Recombinant 00:00:00 [facility] Zoster Vaccine 2018-11-27 Completed [facility] Recombinant 00:00:00 [facility] Zoster Vaccine 2018-11-27 Completed [facility] Recombinant 00:00:00 [facility] Zoster Vaccine 2018-11-27 Completed [facility] Recombinant 00:00:00 [facility] Zoster Vaccine 2018-11-27 Completed [facility] Recombinant 00:00:00 [facility] Zoster Vaccine 2018-11-27 Completed [facility] Recombinant 00:00:00 [facility] Zoster Vaccine 2018-11-27 Completed [facility] Recombinant 00:00:00 [facility] Zoster Vaccine 2018-11-27 Completed [facility] Recombinant 00:00:00 [facility] Zoster Vaccine 2018-11-27 Completed [facility] Recombinant 00:00:00 [facility] Zoster Vaccine 2018-11-27 Completed [facility] Recombinant 00:00:00 [facility] Zoster Vaccine 2018-11-27 Completed [facility] Recombinant 00:00:00 [facility] Zoster Vaccine 2018-11-27 Completed [facility] Recombinant 00:00:00 [facility] Zoster Vaccine 2018-11-27 Completed [facility] Recombinant 00:00:00 [facility] Zoster Vaccine 2018-11-27 Completed [facility] Recombinant 00:00:00 [facility] Zoster Vaccine 2018-11-27 Completed [facility] Recombinant 00:00:00 [facility] Zoster Vaccine 2018-11-27 Completed [facility] Recombinant 00:00:00 [facility] Zoster Vaccine 2018-11-27 Completed [facility] Recombinant 00:00:00 [facility] Zoster Vaccine 2018-11-27 Completed [facility] Recombinant 00:00:00 [facility] Zoster Vaccine 2018-11-27 Completed [facility] Recombinant 00:00:00 [facility] Zoster Vaccine 2018-11-27 Completed [facility] Recombinant 00:00:00 [facility] Zoster Vaccine 2018-11-27 Completed [facility] Recombinant 00:00:00 [facility] Zoster Vaccine 2018-11-27 Completed [facility] Recombinant 00:00:00 [facility] Zoster Vaccine 2018-11-27 Completed [facility] Recombinant 00:00:00 [facility] Zoster Vaccine 2018-11-27 Completed [facility] Recombinant 00:00:00 [facility] Zoster Vaccine 2018-11-27 Completed [facility] Recombinant 00:00:00 [facility] Zoster Vaccine 2018-11-27 Completed [facility] Recombinant 00:00:00 [facility] Zoster Vaccine 2018-11-27 Completed [facility] Recombinant 00:00:00 [facility] Zoster Vaccine 2018-11-27 Completed [facility] Recombinant 00:00:00 [facility] Zoster Vaccine 2018-11-27 Completed [facility] Recombinant 00:00:00 [facility] Zoster Vaccine 2018-11-27 Completed [facility] Recombinant 00:00:00 [facility] Zoster Vaccine 2018-11-27 Completed [facility] Recombinant 00:00:00 [facility] Zoster Vaccine 2018-11-27 Completed [facility] Recombinant 00:00:00 [facility] Zoster Vaccine 2018-11-27 Completed [facility] Recombinant 00:00:00 [facility] Zoster Vaccine 2018-11-27 Completed [facility] Recombinant 00:00:00 [facility] Zoster Vaccine 2018-11-27 Completed [facility] Recombinant 00:00:00 [facility] Pneumococcal 13 2018-07-11 Completed [facility]it [facility] of [...] 00:00:00 [place] [facility] PPSV23 (PNEUMOVAX) Branch Zoster Vaccine 2018-07-09 Completed [facility] Recombinant 00:00:00 [facility] Zoster Vaccine 2018-07-09 Completed [facility] Recombinant 00:00:00 [facility] Zoster Vaccine 2018-07-09 Completed [facility] Recombinant 00:00:00 [facility] Zoster Vaccine 2018-07-09 Completed [facility] Recombinant 00:00:00 [facility] Zoster Vaccine 2018-07-09 Completed [facility] Recombinant 00:00:00 [facility] Zoster Vaccine 2018-07-09 Completed [facility] Recombinant 00:00:00 [facility] Zoster Vaccine 2018-07-09 Completed [facility] Recombinant 00:00:00 [facility] Zoster Vaccine 2018-07-09 Completed [facility] Recombinant 00:00:00 [facility] Zoster Vaccine 2018-07-09 Completed [facility] Recombinant 00:00:00 [facility] Zoster Vaccine 2018-07-09 Completed [facility] Recombinant 00:00:00 [facility] Zoster Vaccine 2018-07-09 Completed [facility] Recombinant 00:00:00 [facility] Zoster Vaccine 2018-07-09 Completed [facility] Recombinant 00:00:00 [facility] Zoster Vaccine 2018-07-09 Completed [facility] Recombinant 00:00:00 [facility] Zoster Vaccine 2018-07-09 Completed [facility] Recombinant 00:00:00 [facility] Zoster Vaccine 2018-07-09 Completed [facility] Recombinant 00:00:00 [facility] Zoster Vaccine 2018-07-09 Completed [facility] Recombinant 00:00:00 [facility] Zoster Vaccine 2018-07-09 Completed [facility] Recombinant 00:00:00 [facility] Zoster Vaccine 2018-07-09 Completed [facility] Recombinant 00:00:00 [facility] Zoster Vaccine 2018-07-09 Completed [facility] Recombinant 00:00:00 [facility] Zoster Vaccine 2018-07-09 Completed [facility] Recombinant 00:00:00 [facility] Zoster Vaccine 2018-07-09 Completed [facility] Recombinant 00:00:00 [facility] Zoster Vaccine 2018-07-09 Completed [facility] Recombinant 00:00:00 [facility] Zoster Vaccine 2018-07-09 Completed [facility] Recombinant 00:00:00 [facility] Zoster Vaccine 2018-07-09 Completed [facility] Recombinant 00:00:00 [facility] Zoster Vaccine 2018-07-09 Completed [facility] Recombinant 00:00:00 [facility] Zoster Vaccine 2018-07-09 Completed [facility] Recombinant 00:00:00 [facility] Zoster Vaccine 2018-07-09 Completed [facility] Recombinant 00:00:00 [facility] Zoster Vaccine 2018-07-09 Completed [facility] Recombinant 00:00:00 [facility] Zoster Vaccine 2018-07-09 Completed [facility] Recombinant 00:00:00 [facility] Zoster Vaccine 2018-07-09 Completed [facility] Recombinant 00:00:00 [facility] Zoster Vaccine 2018-07-09 Completed [facility] Recombinant 00:00:00 [facility] Zoster Vaccine 2018-07-09 Completed [facility] Recombinant 00:00:00 [facility] Zoster Vaccine 2018-07-09 Completed [facility] Recombinant 00:00:00 [facility] Zoster Vaccine 2018-07-09 Completed [facility] Recombinant 00:00:00 [facility] Zoster Vaccine 2018-07-09 Completed [facility] Recombinant 00:00:00 [facility] Zoster Vaccine 2018-07-09 Completed [facility] Recombinant 00:00:00 [facility] Zoster Vaccine 2018-07-09 Completed [facility] Recombinant 00:00:00 [facility] Zoster Vaccine 2018-07-09 Completed [facility] Recombinant 00:00:00 [facility] Zoster Vaccine 2018-07-09 Completed [facility] Recombinant 00:00:00 [facility] Zoster Vaccine 2018-07-09 Completed [facility] Recombinant 00:00:00 [facility] Zoster Vaccine 2018-07-09 Completed [facility] Recombinant 00:00:00 [facility] Zoster Vaccine 2018-07-09 Completed [facility] Recombinant 00:00:00 [facility] Zoster Vaccine 2018-07-09 Completed [facility] Recombinant 00:00:00 [facility] Zoster Vaccine 2018-07-09 Completed [facility] Recombinant 00:00:00 [facility] Zoster Vaccine 2018-07-09 Completed [facility] Recombinant 00:00:00 [facility] Zoster Vaccine 2018-07-09 Completed [facility] Recombinant 00:00:00 [facility] Zoster Vaccine 2018-07-09 Completed [facility] Recombinant 00:00:00 [facility] Zoster Vaccine 2018-07-09 Completed [facility] Recombinant 00:00:00 [facility] Zoster Vaccine 2018-07-09 Completed [facility] Recombinant 00:00:00 [facility] Zoster Vaccine 2018-07-09 Completed [facility] Recombinant 00:00:00 [facility] Zoster Vaccine 2018-07-09 Completed [facility] Recombinant 00:00:00 [facility] Zoster Vaccine 2018-07-09 Completed [facility] Recombinant 00:00:00 [facility] Zoster Vaccine 2018-07-09 Completed [facility] Recombinant 00:00:00 [facility] Zoster Vaccine 2018-07-09 Completed [facility] Recombinant 00:00:00 [facility] Zoster Vaccine 2018-07-09 Completed [facility] Recombinant 00:00:00 [facility] Zoster Vaccine 2018-07-09 Completed [facility] Recombinant 00:00:00 [facility] Zoster Vaccine 2018-07-09 Completed [facility] Recombinant 00:00:00 [facility] Zoster Vaccine 2018-07-09 Completed [facility] Recombinant 00:00:00 [facility] Zoster Vaccine 2018-07-09 Completed [facility] Recombinant 00:00:00 [facility] Zoster Vaccine 2018-07-09 Completed [facility] Recombinant 00:00:00 [facility] Zoster Vaccine 2018-07-09 Completed [facility] Recombinant 00:00:00 [facility] Zoster Vaccine 2018-07-09 Completed [facility] Recombinant 00:00:00 [facility] Zoster Vaccine 2018-07-09 Completed [facility] Recombinant 00:00:00 [facility] Zoster Vaccine 2018-07-09 Completed [facility] Recombinant 00:00:00 [facility] Zoster Vaccine 2018-07-09 Completed [facility] Recombinant 00:00:00 [facility] Zoster Vaccine 2018-07-09 Completed [facility] Recombinant 00:00:00 [facility] Zoster Vaccine 2018-07-09 Completed [facility] Recombinant 00:00:00 [facility] Zoster Vaccine 2018-07-09 Completed [facility] Recombinant 00:00:00 [facility] Zoster Vaccine 2018-07-09 Completed [facility] Recombinant 00:00:00 [facility] Zoster Vaccine 2018-07-09 Completed [facility] Recombinant 00:00:00 [facility] Zoster Vaccine 2018-07-09 Completed [facility] Recombinant 00:00:00 [facility] Zoster Vaccine 2018-07-09 Completed [facility] Recombinant 00:00:00 [facility] Zoster Vaccine 2018-07-09 Completed [facility] Recombinant 00:00:00 [facility] Zoster Vaccine 2018-07-09 Completed [facility] Recombinant 00:00:00 [facility] Zoster Vaccine 2018-07-09 Completed [facility] Recombinant 00:00:00 [facility] Zoster Vaccine 2018-07-09 Completed [facility] Recombinant 00:00:00 [facility] Zoster Vaccine 2018-07-09 Completed [facility] Recombinant 00:00:00 [facility] Zoster Vaccine 2018-07-09 Completed [facility] Recombinant 00:00:00 [facility] Zoster Vaccine 2018-07-09 Completed [facility] Recombinant 00:00:00 [facility] Zoster Vaccine 2018-07-09 Completed [facility] Recombinant 00:00:00 [facility] Zoster Vaccine 2018-07-09 Completed [facility] Recombinant 00:00:00 [facility] Zoster Vaccine 2018-07-09 Completed [facility] Recombinant 00:00:00 [facility] Zoster Vaccine 2018-07-09 Completed [facility] Recombinant 00:00:00 [facility] Zoster Vaccine 2018-07-09 Completed [facility] Recombinant 00:00:00 [facility] Zoster Vaccine 2018-07-09 Completed [facility] Recombinant 00:00:00 [facility] Zoster Vaccine 2018-07-09 Completed [facility] Recombinant 00:00:00 [facility] Zoster Vaccine 2018-07-09 Completed [facility] Recombinant 00:00:00 [facility] Zoster Vaccine 2018-07-09 Completed [facility] Recombinant 00:00:00 [facility] Zoster Vaccine 2018-07-09 Completed [facility] Recombinant 00:00:00 [facility] Zoster Vaccine 2018-07-09 Completed [facility] Recombinant 00:00:00 [facility] Zoster Vaccine 2018-07-09 Completed [facility] Recombinant 00:00:00 [facility] Zoster Vaccine 2018-07-09 Completed [facility] Recombinant 00:00:00 [facility] Zoster Vaccine 2018-07-09 Completed [facility] Recombinant 00:00:00 [facility] Zoster Vaccine 2018-07-09 Completed [facility] Recombinant 00:00:00 [facility] Zoster Vaccine 2018-07-09 Completed [facility] Recombinant 00:00:00 [facility] Zoster Vaccine 2018-07-09 Completed [facility] Recombinant 00:00:00 [facility] Zoster Vaccine 2018-07-09 Completed [facility] Recombinant 00:00:00 [facility] Zoster Vaccine 2018-07-09 Completed [facility] Recombinant 00:00:00 [facility] Zoster Vaccine 2018-07-09 Completed [facility] Recombinant 00:00:00 [facility] Zoster Vaccine 2018-07-09 Completed [facility] Recombinant 00:00:00 [facility] Zoster Vaccine 2018-07-09 Completed [facility] Recombinant 00:00:00 [facility] Zoster Vaccine 2018-07-09 Completed [facility] Recombinant 00:00:00 [facility] Zoster Vaccine 2018-07-09 Completed [facility] Recombinant 00:00:00 [facility] Zoster Vaccine 2018-07-09 Completed [facility] Recombinant 00:00:00 [facility] Zoster Vaccine 2018-07-09 Completed [facility] Recombinant 00:00:00 [facility] Zoster Vaccine 2018-07-09 Completed [facility] Recombinant 00:00:00 [facility] Zoster Vaccine 2018-07-09 Completed [facility] Recombinant 00:00:00 [facility] Zoster Vaccine 2018-07-09 Completed [facility] Recombinant 00:00:00 [facility] Zoster Vaccine 2018-07-09 Completed [facility] Recombinant 00:00:00 [facility] Zoster Vaccine 2018-07-09 Completed [facility] Recombinant 00:00:00 [facility] Zoster Vaccine 2018-07-09 Completed [facility] Recombinant 00:00:00 [facility] Zoster Vaccine 2018-07-09 Completed [facility] Recombinant 00:00:00 [facility] Zoster Vaccine 2018-07-09 Completed [facility] Recombinant 00:00:00 [facility] Zoster Vaccine 2018-07-09 Completed [facility] Recombinant 00:00:00 [facility] Zoster Vaccine 2018-07-09 Completed [facility] Recombinant 00:00:00 [facility] Pneumococcal 13 Unknown Completed Universit y of Conjugate, PCV13 [facility] dical (Prevnar 13) Branch Zoster Vaccine Unknown Completed [facility] of Recombinant [facility] Zoster Vaccine Unknown Completed [facility] Recombinant [facility] Influenza Virus Unknown Completed Universit y of Vaccine [facility] Influenza Virus Unknown Completed Universit y of Vaccine Quad .5 mL [facility] 6+ MO Branch (FLUZONE/FLULAVAL/F LUARIX) SARS-COV-2 COVID-19 Unknown Completed Unive rsity of PFIZER VACCINE [facility] SARS-COV-2 COVID-19 Unknown Completed Unive rsity of OSCAR/J&J VACCINE [facility] Influenza Virus Unknown Completed Universit y of Vaccine [facility] Pneumococcal Unknown Completed University o f Polysaccharide, [facility] ical PPSV23 (PNEUMOVAX) Branch Influenza Virus Unknown Completed Universit y of Vaccine [facility] TDAP Unknown Completed [facility] Pneumococcal 13 Unknown Completed [facility] Conjugate, PCV13 [place] [facility] (Prevnar 13) [facility] Zoster Vaccine Unknown Completed [facility] [place] Zoster Vaccine Unknown Completed [facility] [place] Influenza Virus Unknown Completed Universit y of Vaccine [facility] Influenza Virus Unknown Completed Universit y of Vaccine Quad .5 mL [facility] IM 6+ MO Branch (FLUZONE/FLULAVAL/F LUARIX) SARS-COV-2 COVID-19 Unknown Completed Unive rsity of PFIZER VACCINE [facility] SARS-COV-2 COVID-19 Unknown Completed Unive rsity of OSCAR/J&J VACCINE [facility] Influenza Virus Unknown Completed Universit y of Vaccine [facility] Pneumococcal Unknown Completed University o f Polysaccharide, [facility] ical PPSV23 (PNEUMOVAX) Branch Influenza Virus Unknown Completed Universit y of Vaccine [facility] TDAP Unknown Completed [facility] Pneumococcal 13 Unknown Completed Universit y of Conjugate, PCV13 [facility] dical (Prevnar 13) Branch Zoster Vaccine Unknown Completed [facility] [place] Zoster Vaccine Unknown Completed [facility] [place] Influenza Virus Unknown Completed Universit y of Vaccine [facility] Influenza Virus Unknown Completed Universit y of Vaccine Quad .5 mL [facility] 6+ MO Branch (FLUZONE/FLULAVAL/F LUARIX) SARS-COV-2 COVID-19 Unknown Completed Unive rsity of PFIZER VACCINE [facility] SARS-COV-2 COVID-19 Unknown Completed Unive rsity of OSCAR/J&J VACCINE [facility] Influenza Virus Unknown Completed Universit y of Vaccine [facility] Pneumococcal Unknown Completed University o f Polysaccharide, [facility] ical PPSV23 (PNEUMOVAX) Branch Influenza Virus Unknown Completed Universit y of Vaccine [facility] Pneumococcal 13 Unknown Completed Universit y of Conjugate, PCV13 [facility] dical (Prevnar 13) Branch Zoster Vaccine Unknown Completed [facility] [place] Zoster Vaccine Unknown Completed [facility] [place] Influenza Virus Unknown Completed Universit y of Vaccine [facility] Influenza Virus Unknown Completed Universit y of Vaccine Quad .5 mL [facility] IM 6+ MO Branch (FLUZONE/FLULAVAL/F LUARIX) SARS-COV-2 COVID-19 Unknown Completed Unive rsity of PFIZER VACCINE [facility] SARS-COV-2 COVID-19 Unknown Completed Unive rsity of OSCAR/J&J VACCINE [facility] Influenza Virus Unknown Completed Universit y of Vaccine [facility] Pneumococcal Unknown Completed [facility] f Polysaccharide, [place] [facility] PPSV23 (PNEUMOVAX) Branch Influenza Virus Unknown Completed Universit y of Vaccine [facility] Pneumococcal 13 Unknown Completed Universit y of Conjugate, PCV13 [facility] dical (Prevnar 13) Branch Zoster Vaccine Unknown Completed [facility] [place] Zoster Vaccine Unknown Completed [facility] [place] Influenza Virus Unknown Completed Universit y of Vaccine [facility] Influenza Virus Unknown Completed Universit y of Vaccine Quad .5 mL [facility] IM 6+ MO Branch (FLUZONE/FLULAVAL/F LUARIX) SARS-COV-2 COVID-19 Unknown Completed Unive rsity of PFIZER VACCINE [facility] SARS-COV-2 COVID-19 Unknown Completed Unive rsity of OSCAR/J&J VACCINE [facility] Influenza Virus Unknown Completed Universit y of Vaccine [facility] Pneumococcal Unknown Completed [facility] o f Polysaccharide, [place] [facility] PPSV23 (PNEUMOVAX) Branch Influenza Virus Unknown Completed Universit y of Vaccine [facility] Pneumococcal 13 Unknown Completed Universit y of Conjugate, PCV13 [facility] dical (Prevnar 13) Branch Zoster Vaccine Unknown Completed [facility] [place] Zoster Vaccine Unknown Completed [facility] [place] Influenza Virus Unknown Completed Universit y of Vaccine [facility] Influenza Virus Unknown Completed Universit y of Vaccine Quad .5 mL [facility] 6+ MO Branch (FLUZONE/FLULAVAL/F LUARIX) SARS-COV-2 COVID-19 Unknown Completed Unive rsity of PFIZER VACCINE [facility] SARS-COV-2 COVID-19 Unknown Completed Unive rsity of OSCAR/J&J VACCINE [facility] Influenza Virus Unknown Completed Universit y of Vaccine [facility] Pneumococcal Unknown Completed [facility] o f Polysaccharide, [place] [facility] PPSV23 (PNEUMOVAX) Branch Influenza Virus Unknown Completed Universit y of Vaccine [facility] Pneumococcal 13 Unknown Completed Universit y of Conjugate, PCV13 [facility] dical (Prevnar 13) Branch Zoster Vaccine Unknown Completed [facility] [place] Zoster Vaccine Unknown Completed [facility] [place] Influenza Virus Unknown Completed Universit y of Vaccine [facility] Influenza Virus Unknown Completed Universit y of Vaccine Quad .5 mL [facility] IM 6+ MO Branch (FLUZONE/FLULAVAL/F LUARIX) SARS-COV-2 COVID-19 Unknown Completed Unive rsity of PFIZER VACCINE [facility] SARS-COV-2 COVID-19 Unknown Completed Unive rsity of OSCAR/J&J VACCINE [facility] Influenza Virus Unknown Completed Universit y of Vaccine [facility] Pneumococcal Unknown Completed University o f Polysaccharide, [place] [facility] PPSV23 (PNEUMOVAX) Branch Influenza Virus Unknown Completed Universit y of Vaccine [facility] Pneumococcal 13 Unknown Completed Universit y of Conjugate, PCV13 [facility] dical (Prevnar 13) Branch Zoster Vaccine Unknown Completed [facility] [place] Zoster Vaccine Unknown Completed [facility] [place] Influenza Virus Unknown Completed Universit y of Vaccine [facility] Influenza Virus Unknown Completed Universit y of Vaccine Quad .5 mL [facility] 6+ MO Branch (FLUZONE/FLULAVAL/F LUARIX) SARS-COV-2 COVID-19 Unknown Completed Unive rsity of PFIZER VACCINE [facility] SARS-COV-2 COVID-19 Unknown Completed Unive rsity of OSCAR/J&J VACCINE [facility] Influenza Virus Unknown Completed Universit y of Vaccine [facility] Pneumococcal Unknown Completed University o f Polysaccharide, [facility] ical PPSV23 (PNEUMOVAX) Branch Pneumococcal 13 Unknown Completed Universit y of Conjugate, PCV13 [facility] dical (Prevnar 13) Branch Zoster Vaccine Unknown Completed [facility] [place] Zoster Vaccine Unknown Completed [facility] [place] Influenza Virus Unknown Completed Universit y of Vaccine [facility] Influenza Virus Unknown Completed Universit y of Vaccine Quad .5 mL [facility] 6+ MO Branch (FLUZONE/FLULAVAL/F LUARIX) SARS-COV-2 COVID-19 Unknown Completed Unive rsity of PFIZER VACCINE [facility] SARS-COV-2 COVID-19 Unknown Completed Unive rsity of OSCAR/J&J VACCINE [facility] Influenza Virus Unknown Completed Universit y of Vaccine [facility] Pneumococcal Unknown Completed [facility] o f Polysaccharide, [place] [facility] PPSV23 (PNEUMOVAX) Branch Pneumococcal 13 Unknown Completed Universit y of Conjugate, PCV13 [facility] dical (Prevnar 13) Branch Zoster Vaccine Unknown Completed [facility] [place] Zoster Vaccine Unknown Completed [facility] [place] Influenza Virus Unknown Completed Universit y of Vaccine [facility] Influenza Virus Unknown Completed Universit y of Vaccine Quad .5 mL [facility] IM 6+ MO Branch (FLUZONE/FLULAVAL/F LUARIX) SARS-COV-2 COVID-19 Unknown Completed Unive rsity of PFIZER VACCINE [facility] SARS-COV-2 COVID-19 Unknown Completed Unive rsity of OSCAR/J&J VACCINE [facility] Influenza Virus Unknown Completed Universit y of Vaccine [facility] Pneumococcal Unknown Completed University o f Polysaccharide, [place] [facility] PPSV23 (PNEUMOVAX) Branch Pneumococcal 13 Unknown Completed Universit y of Conjugate, PCV13 [facility] dical (Prevnar 13) Branch Zoster Vaccine Unknown Completed [facility] [place] Zoster Vaccine Unknown Completed [facility] [place] Influenza Virus Unknown Completed Universit y of Vaccine [facility] Influenza Virus Unknown Completed Universit y of Vaccine Quad .5 mL [facility] IM 6+ MO Branch (FLUZONE/FLULAVAL/F LUARIX) SARS-COV-2 COVID-19 Unknown Completed Unive rsity of PFIZER VACCINE [facility] SARS-COV-2 COVID-19 Unknown Completed Unive rsity of OSCAR/J&J VACCINE [facility] Influenza Virus Unknown Completed Universit y of Vaccine [facility] Pneumococcal Unknown Completed University o f Polysaccharide, [place] [facility] PPSV23 (PNEUMOVAX) Branch Pneumococcal 13 Unknown Completed Universit y of Conjugate, PCV13 [facility] dical (Prevnar 13) Branch Zoster Vaccine Unknown Completed [facility] [place] Zoster Vaccine Unknown Completed [facility] [place] [place] [facility] Influenza Virus Unknown Completed Universit y of Vaccine [facility] Influenza Virus Unknown Completed Universit y of Vaccine Quad .5 mL [facility] 6+ MO Branch (FLUZONE/FLULAVAL/F LUARIX) SARS-COV-2 COVID-19 Unknown Completed Unive rsity of PFIZER VACCINE [facility] SARS-COV-2 COVID-19 Unknown Completed Unive rsity of OSCAR/J&J VACCINE [facility] Influenza Virus Unknown Completed [facility]it y of [facility] Pneumococcal Unknown Completed University o f Polysaccharide, [place] [facility] PPSV23 (PNEUMOVAX) Branch Pneumococcal 13 Unknown Completed [facility]it [facility] of Conjugate, PCV13 [facility] dical (Prevnar 13) Branch Zoster Vaccine Unknown Completed [facility] [place] [place] [facility] Zoster Vaccine Unknown Completed [facility] [place] Influenza Virus Unknown Completed [facility]it y of Vaccine [facility] Influenza Virus Unknown Completed [facility]it y of Vaccine Quad .5 mL [facility] IM 6+ MO Branch (FLUZONE/FLULAVAL/F LUARIX) SARS-COV-2 COVID-19 Unknown Completed Unive rsity of PFIZER VACCINE [facility] SARS-COV-2 COVID-19 Unknown Completed Unive rsity of OSCAR/J&J VACCINE [facility] Influenza Virus Unknown Completed [facility]it [facility] of Vaccine [facility] Pneumococcal Unknown Completed [facility] o f Polysaccharide, [place] [facility] PPSV23 (PNEUMOVAX) Branch Pneumococcal 13 Unknown Completed [facility]it [facility] of Conjugate, PCV13 [facility] dical (Prevnar 13) Branch Zoster Vaccine Unknown Completed [facility] [place] [place] [facility] Zoster Vaccine Unknown Completed [facility] [place] Influenza Virus Unknown Completed [facility]it [facility] of Vaccine [facility] Influenza Virus Unknown Completed [facility]it y of Vaccine Quad .5 mL [facility] IM 6+ MO Branch (FLUZONE/FLULAVAL/F LUARIX) SARS-COV-2 COVID-19 Unknown Completed Unive rsity of PFIZER VACCINE [facility] SARS-COV-2 COVID-19 Unknown Completed Unive rsity of OSCAR/J&J VACCINE [facility] Influenza Virus Unknown Completed [facility] of [facility] Pneumococcal Unknown Completed [facility] o f Polysaccharide, [place] [facility] PPSV23 (PNEUMOVAX) Branch Pneumococcal 13 Unknown Completed [facility]it [facility] of Conjugate, PCV13 [facility] dical (Prevnar 13) Branch Zoster Vaccine Unknown Completed [facility] [place] [place] [facility] Zoster Vaccine Unknown Completed [facility] [place] Influenza Virus Unknown Completed [facility] of Vaccine [facility] Influenza Virus Unknown Completed [facility]it y of Vaccine Quad .5 mL [facility] 6+ MO Branch (FLUZONE/FLULAVAL/F LUARIX) SARS-COV-2 COVID-19 Unknown Completed Unive rsity of PFIZER VACCINE [facility] SARS-COV-2 COVID-19 Unknown Completed Unive rsity of OSCAR/J&J VACCINE [facility] Influenza Virus Unknown Completed [facility] of [facility] Pneumococcal Unknown Completed University o f Polysaccharide, [place] [facility] PPSV23 (PNEUMOVAX) Branch Pneumococcal 13 Unknown Completed [facility]it y of Conjugate, PCV13 [facility] dical (Prevnar 13) Branch Zoster Vaccine Unknown Completed [facility] [place] [place] [facility] Zoster Vaccine Unknown Completed [facility] [place] Influenza Virus Unknown Completed [facility]it y of Vaccine [facility] Influenza Virus Unknown Completed [facility] y of Vaccine Quad .5 mL [facility] IM 6+ MO Branch (FLUZONE/FLULAVAL/F LUARIX) SARS-COV-2 COVID-19 Unknown Completed Unive rsity of PFIZER VACCINE [facility] SARS-COV-2 COVID-19 Unknown Completed Unive rsity of OSCAR/J&J VACCINE [facility] Influenza Virus Unknown Completed [facility] of Vaccine [facility] Pneumococcal Unknown Completed [facility] o f Polysaccharide, [place] [facility] PPSV23 (PNEUMOVAX) Branch Pneumococcal 13 Unknown Completed [facility]it y of Conjugate, PCV13 [facility] dical (Prevnar 13) Branch Zoster Vaccine Unknown Completed [facility] [place] Zoster Vaccine Unknown Completed [facility] [place] Influenza Virus Unknown Completed [facility]it y of Vaccine [facility] Influenza Virus Unknown Completed [facility]it y of Vaccine Quad .5 mL [facility] IM 6+ MO Branch (FLUZONE/FLULAVAL/F LUARIX) SARS-COV-2 COVID-19 Unknown Completed Unive rsity of PFIZER VACCINE [facility] SARS-COV-2 COVID-19 Unknown Completed Unive rsity of OSCAR/J&J VACCINE [facility] Influenza Virus Unknown Completed [facility]it y of Vaccine [facility] Pneumococcal Unknown Completed [facility] o f Polysaccharide, [place] [facility] PPSV23 (PNEUMOVAX) Branch Pneumococcal 13 Unknown Completed [facility]it y of Conjugate, PCV13 [facility] dical (Prevnar 13) Branch Zoster Vaccine Unknown Completed [facility] [place] Zoster Vaccine Unknown Completed [facility] [place] Influenza Virus Unknown Completed [facility]it y of Vaccine [facility] Influenza Virus Unknown Completed [facility]it y of Vaccine Quad .5 mL [facility] 6+ MO Branch (FLUZONE/FLULAVAL/F LUARIX) SARS-COV-2 COVID-19 Unknown Completed Unive rsity of PFIZER VACCINE [facility] SARS-COV-2 COVID-19 Unknown Completed Unive rsity of OSCAR/J&J VACCINE [facility] Influenza Virus Unknown Completed [facility]it [facility] of Vaccine [facility] Pneumococcal Unknown Completed [facility] o f Polysaccharide, [place] [facility] PPSV23 (PNEUMOVAX) Branch Pneumococcal 13 Unknown Completed [facility]it y of Conjugate, PCV13 [facility] dical (Prevnar 13) Branch Zoster Vaccine Unknown Completed [facility] [place] Zoster Vaccine Unknown Completed [facility] [place] Influenza Virus Unknown Completed [facility]it y of Vaccine [facility] Influenza Virus Unknown Completed [facility]it y of Vaccine Quad .5 mL [facility] IM 6+ MO Branch (FLUZONE/FLULAVAL/F LUARIX) SARS-COV-2 COVID-19 Unknown Completed Unive rsity of PFIZER VACCINE [facility] SARS-COV-2 COVID-19 Unknown Completed Unive rsity of OSCAR/J&J VACCINE [facility] Influenza Virus Unknown Completed [facility]it y of Vaccine [facility] Pneumococcal Unknown Completed University o f Polysaccharide, [facility] ical PPSV23 (PNEUMOVAX) Branch Pneumococcal 13 Unknown Completed [facility]it y of Conjugate, PCV13 [facility] dical (Prevnar 13) Branch Zoster Vaccine Unknown Completed [facility], [place] Zoster Vaccine Unknown Completed [facility] [place] Influenza Virus Unknown Completed [facility]it y of Vaccine [facility] Influenza Virus Unknown Completed [facility]it y of Vaccine Quad .5 mL [facility] 6+ MO Branch (FLUZONE/FLULAVAL/F LUARIX) SARS-COV-2 COVID-19 Unknown Completed Unive rsity of PFIZER VACCINE [facility] SARS-COV-2 COVID-19 Unknown Completed Unive rsity of OSCAR/J&J VACCINE [facility] Influenza Virus Unknown Completed [facility]it y of Vaccine [facility] Pneumococcal Unknown Completed University o f Polysaccharide, [facility] ical PPSV23 (PNEUMOVAX) Branch Pneumococcal 13 Unknown Completed [facility]it y of Conjugate, PCV13 [facility] dical (Prevnar 13) Branch Zoster Vaccine Unknown Completed [facility] [place] Zoster Vaccine Unknown Completed [facility] [place] Influenza Virus Unknown Completed [facility]it y of Vaccine [facility] Influenza Virus Unknown Completed [facility]it y of Vaccine Quad .5 mL [facility] IM 6+ MO Branch (FLUZONE/FLULAVAL/F LUARIX) SARS-COV-2 COVID-19 Unknown Completed Unive rsity of OSCAR/J&J VACCINE [facility] Pneumococcal Unknown Completed University o f Polysaccharide, [facility] ical PPSV23 (PNEUMOVAX) Branch Pneumococcal 13 Unknown Completed [facility]it y of Conjugate, PCV13 [facility] dical (Prevnar 13) Branch Zoster Vaccine Unknown Completed [facility], [place] Zoster Vaccine Unknown Completed [facility], [place] Influenza Virus Unknown Completed [facility]it y of Vaccine [facility] Influenza Virus Unknown Completed Universit y of Vaccine Quad .5 mL [facility] IM 6+ MO Branch (FLUZONE/FLULAVAL/F LUARIX) SARS-COV-2 COVID-19 Unknown Completed Unive rsity of OSCAR/J&J VACCINE [facility] Pneumococcal Unknown Completed University o f Polysaccharide, [facility] ical PPSV23 (PNEUMOVAX) Branch Pneumococcal 13 Unknown Completed Universit y of Conjugate, PCV13 [facility] dical (Prevnar 13) Branch Zoster Vaccine Unknown Completed [facility] [place] Zoster Vaccine Unknown Completed [facility], [place] Influenza Virus Unknown Completed Universit y of Vaccine [facility] Influenza Virus Unknown Completed [facility]it y of Vaccine Quad .5 mL [facility] IM 6+ MO Branch (FLUZONE/FLULAVAL/F LUARIX) SARS-COV-2 COVID-19 Unknown Completed Unive rsity of OSCAR/J&J VACCINE [facility] Pneumococcal Unknown Completed University o f Polysaccharide, [facility] ical PPSV23 (PNEUMOVAX) Branch Pneumococcal 13 Unknown Completed Universit y of Conjugate, PCV13 [facility] dical (Prevnar 13) Branch Zoster Vaccine Unknown Completed [facility], [place] Zoster Vaccine Unknown Completed [facility], [place] Influenza Virus Unknown Completed [facility]it y of Vaccine [facility] Influenza Virus Unknown Completed Universit y of Vaccine Quad .5 mL [facility] 6+ MO Branch (FLUZONE/FLULAVAL/F LUARIX) Pneumococcal Unknown Completed University o f Polysaccharide, [facility] ical PPSV23 (PNEUMOVAX) Branch Pneumococcal 13 Unknown Completed Universit y of Conjugate, PCV13 [facility] dical (Prevnar 13) Branch Zoster Vaccine Unknown Completed [facility], [place] Zoster Vaccine Unknown Completed [facility], [place] Influenza Virus Unknown Completed [facility]it y of Vaccine [facility] Influenza Virus Unknown Completed [facility]it y of Vaccine Quad .5 mL [facility] 6+ MO Branch (FLUZONE/FLULAVAL/F LUARIX) Pneumococcal Unknown Completed University o f Polysaccharide, [facility] ical PPSV23 (PNEUMOVAX) Branch Pneumococcal 13 Unknown Completed Universit y of Conjugate, PCV13 [facility] dical (Prevnar 13) Branch Zoster Vaccine Unknown Completed [facility], [place] Zoster Vaccine Unknown Completed [facility], [place] Influenza Virus Unknown Completed [facility]it y of Vaccine [facility] Influenza Virus Unknown Completed Universit y of Vaccine Quad .5 mL [facility] 6+ MO Branch (FLUZONE/FLULAVAL/F LUARIX) SARS-COV-2 COVID-19 Unknown Completed Unive rsity of PFIZER VACCINE [facility] SARS-COV-2 COVID-19 Unknown Completed Unive rsity of OSCAR/J&J VACCINE [facility] Influenza Virus Unknown Completed [facility]it y of Vaccine [facility] Pneumococcal Unknown Completed University o f Polysaccharide, [place] [facility] PPSV23 (PNEUMOVAX) Branch Influenza Virus Unknown Completed [facility] y of [facility] TDAP Unknown Completed [facility] Pneumococcal 13 Unknown Completed [facility] Conjugate, PCV13 [place] [facility] dical (Prevnar 13) Branch Zoster Vaccine Unknown Completed [facility], [place] Zoster Vaccine Unknown Completed [facility], [place] Influenza Virus Unknown Completed [facility] y of [facility] Influenza Virus Unknown Completed Universit y of Vaccine Quad .5 mL [facility] IM 6+ MO Branch (FLUZONE/FLULAVAL/F LUARIX) SARS-COV-2 COVID-19 Unknown Completed Unive rsity of PFIZER VACCINE [facility] SARS-COV-2 COVID-19 Unknown Completed Unive rsity of OSCAR/J&J VACCINE [facility] Influenza Virus Unknown Completed [facility] of [facility] Pneumococcal Unknown Completed University o f Polysaccharide, [place] [facility] PPSV23 (PNEUMOVAX) Branch Influenza Virus Unknown Completed [facility] of [facility] TDAP Unknown Completed [facility] Pneumococcal 13 Unknown Completed Universit y of Conjugate, PCV13 [facility] dical (Prevnar 13) Branch Zoster Vaccine Unknown Completed [facility], [place] Zoster Vaccine Unknown Completed [facility], [place] Influenza Virus Unknown Completed Universit y of Vaccine [facility] Influenza Virus Unknown Completed [facility]it y of Vaccine Quad .5 mL [facility] IM 6+ MO Branch (FLUZONE/FLULAVAL/F LUARIX) SARS-COV-2 COVID-19 Unknown Completed Unive rsity of PFIZER VACCINE [facility] SARS-COV-2 COVID-19 Unknown Completed Unive rsity of OSCAR/J&J VACCINE [facility] Influenza Virus Unknown Completed [facility] y of [facility] Pneumococcal Unknown Completed University o f Polysaccharide, [place] [facility] PPSV23 (PNEUMOVAX) Branch Influenza Virus Unknown Completed [facility]it y of Vaccine [facility] TDAP Unknown Completed [facility] Pneumococcal 13 Unknown Completed [facility] y of Conjugate, PCV13 [place] [facility] dical (Prevnar 13) Branch Zoster Vaccine Unknown Completed [facility], [place] Zoster Vaccine Unknown Completed [facility], [place] Influenza Virus Unknown Completed Universit y of Vaccine [facility] Influenza Virus Unknown Completed Universit y of Vaccine Quad .5 mL [facility] IM 6+ MO Branch (FLUZONE/FLULAVAL/F LUARIX) SARS-COV-2 COVID-19 Unknown Completed Unive rsity of PFIZER VACCINE [facility] SARS-COV-2 COVID-19 Unknown Completed Unive rsity of OSCAR/J&J VACCINE [facility] Influenza Virus Unknown Completed [facility]it y of Vaccine [facility] Pneumococcal Unknown Completed University o f Polysaccharide, [facility] ical PPSV23 (PNEUMOVAX) Branch Influenza Virus Unknown Completed [facility]it y of Vaccine [facility] TDAP Unknown Completed [facility] Pneumococcal 13 Unknown Completed Universit y of Conjugate, PCV13 [facility] dical (Prevnar 13) Branch Zoster Vaccine Unknown Completed [facility] [place] Zoster Vaccine Unknown Completed [facility], [place] Influenza Virus Unknown Completed Universit y of Vaccine [facility] Influenza Virus Unknown Completed Universit y of Vaccine Quad .5 mL [facility] 6+ MO Branch (FLUZONE/FLULAVAL/F LUARIX) SARS-COV-2 COVID-19 Unknown Completed Unive rsity of PFIZER VACCINE [facility] SARS-COV-2 COVID-19 Unknown Completed Unive rsity of OSCAR/J&J VACCINE [facility] Influenza Virus Unknown Completed [facility]it y of [facility] Pneumococcal Unknown Completed University o f Polysaccharide, [facility] ical PPSV23 (PNEUMOVAX) Branch Influenza Virus Unknown Completed Universit y of Vaccine [facility] TDAP Unknown Completed [facility] Pneumococcal 13 Unknown Completed Universit y of Conjugate, PCV13 [facility] dical (Prevnar 13) Branch Zoster Vaccine Unknown Completed [facility] [place] Zoster Vaccine Unknown Completed [facility], [place] Influenza Virus Unknown Completed Universit y of Vaccine [facility] Influenza Virus Unknown Completed Universit y of Vaccine Quad .5 mL [facility] 6+ MO Branch (FLUZONE/FLULAVAL/F LUARIX) SARS-COV-2 COVID-19 Unknown Completed Unive rsity of PFIZER VACCINE [facility] SARS-COV-2 COVID-19 Unknown Completed Unive rsity of OSCAR/J&J VACCINE [facility] Influenza Virus Unknown Completed Universit y of Vaccine [facility] Pneumococcal Unknown Completed University o f Polysaccharide, [facility] ical PPSV23 (PNEUMOVAX) Branch Influenza Virus Unknown Completed [facility]it y of Vaccine [facility] TDAP Unknown Completed [facility] Pneumococcal 13 Unknown Completed Universit y of Conjugate, PCV13 [facility] dical (Prevnar 13) Branch Zoster Vaccine Unknown Completed [facility] [place] Zoster Vaccine Unknown Completed [facility], [place] Influenza Virus Unknown Completed Universit y of Vaccine [facility] Influenza Virus Unknown Completed Universit y of Vaccine Quad .5 mL [facility] 6+ MO Branch (FLUZONE/FLULAVAL/F LUARIX) SARS-COV-2 COVID-19 Unknown Completed Unive rsity of PFIZER VACCINE [facility] SARS-COV-2 COVID-19 Unknown Completed Unive rsity of OSCAR/J&J VACCINE [facility] Influenza Virus Unknown Completed [facility]it y of [facility] Pneumococcal Unknown Completed University o f Polysaccharide, [facility] ical PPSV23 (PNEUMOVAX) Branch Influenza Virus Unknown Completed Universit y of Vaccine [facility] TDAP Unknown Completed [facility] Pneumococcal 13 Unknown Completed Universit y of Conjugate, PCV13 [facility] dical (Prevnar 13) Branch Zoster Vaccine Unknown Completed [facility] [place] Zoster Vaccine Unknown Completed [facility] [place] Influenza Virus Unknown Completed Universit y of Vaccine [facility] Influenza Virus Unknown Completed Universit y of Vaccine Quad .5 mL [facility] 6+ MO Branch (FLUZONE/FLULAVAL/F LUARIX) SARS-COV-2 COVID-19 Unknown Completed Unive rsity of PFIZER VACCINE [facility] SARS-COV-2 COVID-19 Unknown Completed Unive rsity of OSCAR/J&J VACCINE [facility] Influenza Virus Unknown Completed Universit y of Vaccine [facility] Pneumococcal Unknown Completed University o f Polysaccharide, [facility] ical PPSV23 (PNEUMOVAX) Branch Influenza Virus Unknown Completed [facility]it y of [facility] TDAP Unknown Completed [facility] Influenza Virus Unknown Completed Universit y of Vaccine Quad IM, [facility] dical Preserv and ABX Branch Free 6 MO-64 YRS (FLUCELVAX) Pneumococcal 13 Unknown Completed Universit y of Conjugate, PCV13 [facility] dical (Prevnar 13) Branch Zoster Vaccine Unknown Completed [facility] [place] Zoster Vaccine Unknown Completed [facility] [place] Influenza Virus Unknown Completed Universit y of Vaccine [facility] Influenza Virus Unknown Completed [facility]it y of Vaccine Quad .5 mL [facility] IM 6+ MO Branch (FLUZONE/FLULAVAL/F LUARIX) SARS-COV-2 COVID-19 Unknown Completed Unive rsity of PFIZER VACCINE [facility] SARS-COV-2 COVID-19 Unknown Completed Unive rsity of OSCAR/J&J VACCINE [facility] Influenza Virus Unknown Completed [facility]it y of Vaccine [facility] Pneumococcal Unknown Completed University o f Polysaccharide, [facility] ical PPSV23 (PNEUMOVAX) Branch Influenza Virus Unknown Completed Universit y of Vaccine [facility] TDAP Unknown Completed [facility] Influenza Virus Unknown Completed Universit y of Vaccine Quad IM, [facility] dical Preserv and ABX Branch Free 6 MO-64 YRS (FLUCELVAX) Pneumococcal 13 Unknown Completed Universit y of Conjugate, PCV13 [facility] dical (Prevnar 13) Branch Zoster Vaccine Unknown Completed [facility] [place] Zoster Vaccine Unknown Completed [facility] [place] Influenza Virus Unknown Completed Universit y of Vaccine [facility] Influenza Virus Unknown Completed Universit y of Vaccine Quad .5 mL [facility] 6+ MO Branch (FLUZONE/FLULAVAL/F LUARIX) SARS-COV-2 COVID-19 Unknown Completed Unive rsity of PFIZER VACCINE [facility] SARS-COV-2 COVID-19 Unknown Completed Unive rsity of OSCAR/J&J VACCINE [facility] Influenza Virus Unknown Completed [facility]it y of Vaccine [facility] Pneumococcal Unknown Completed University o f Polysaccharide, [facility] ical PPSV23 (PNEUMOVAX) Branch Influenza Virus Unknown Completed Universit y of Vaccine [facility] TDAP Unknown Completed [facility] Influenza Virus Unknown Completed Universit y of Vaccine Quad IM, [facility] dical Preserv and ABX Branch Free 6 MO-64 YRS (FLUCELVAX) Pneumococcal 13 Unknown Completed Universit y of Conjugate, PCV13 [facility] dical (Prevnar 13) Branch Zoster Vaccine Unknown Completed [facility] [place] Zoster Vaccine Unknown Completed [facility] [place] [place] [facility] Influenza Virus Unknown Completed Universit y of Vaccine [facility] Influenza Virus Unknown Completed Universit y of Vaccine Quad .5 mL [facility] IM 6+ MO Branch (FLUZONE/FLULAVAL/F LUARIX) SARS-COV-2 COVID-19 Unknown Completed Unive rsity of PFIZER VACCINE [facility] SARS-COV-2 COVID-19 Unknown Completed Unive rsity of OSCAR/J&J VACCINE [facility] Influenza Virus Unknown Completed Universit y of Vaccine [facility] Pneumococcal Unknown Completed University o f Polysaccharide, [facility] ical PPSV23 (PNEUMOVAX) Branch Influenza Virus Unknown Completed Universit y of Vaccine [facility] TDAP Unknown Completed [facility] Influenza Virus Unknown Completed Universit y of Vaccine Quad IM, [facility] dical Preserv and ABX Branch Free 6 MO-64 YRS (FLUCELVAX) Pneumococcal 13 Unknown Completed Universit y of Conjugate, PCV13 [facility] dical (Prevnar 13) Branch Zoster Vaccine Unknown Completed [facility], [place] [place] [facility] Zoster Vaccine Unknown Completed [facility], [place] [place] [facility] Influenza Virus Unknown Completed Universit y of Vaccine [facility] Influenza Virus Unknown Completed Universit y of Vaccine Quad .5 mL [facility] 6+ MO Branch (FLUZONE/FLULAVAL/F LUARIX) SARS-COV-2 COVID-19 Unknown Completed Unive rsity of PFIZER VACCINE [facility] SARS-COV-2 COVID-19 Unknown Completed Unive rsity of OSCAR/J&J VACCINE [facility] Influenza Virus Unknown Completed Universit y of [facility] Pneumococcal Unknown Completed University o f Polysaccharide, [facility] ical PPSV23 (PNEUMOVAX) Branch Influenza Virus Unknown Completed Universit y of [facility] TDAP Unknown Completed [facility] Influenza Virus Unknown Completed Universit y of Vaccine Quad IM, [facility] dical Preserv and ABX Branch Free 6 MO-64 YRS (FLUCELVAX) Pneumococcal 13 Unknown Completed Universit y of Conjugate, PCV13 [facility] dical (Prevnar 13) Branch Zoster Vaccine Unknown Completed [facility], [place] [place] [facility] Zoster Vaccine Unknown Completed [facility], [place] [place] [facility] Influenza Virus Unknown Completed Universit y of Vaccine [facility] Influenza Virus Unknown Completed Universit y of Vaccine Quad .5 mL [facility] IM 6+ MO Branch (FLUZONE/FLULAVAL/F LUARIX) SARS-COV-2 COVID-19 Unknown Completed Unive rsity of PFIZER VACCINE [facility] SARS-COV-2 COVID-19 Unknown Completed Unive rsity of OSCAR/J&J VACCINE [facility] Influenza Virus Unknown Completed Universit y of Vaccine [facility] Pneumococcal Unknown Completed University o f Polysaccharide, [facility] ical PPSV23 (PNEUMOVAX) Branch Influenza Virus Unknown Completed Universit y of Vaccine [facility] TDAP Unknown Completed [facility] Pneumococcal 13 Unknown Completed Universit y of Conjugate, PCV13 [facility] dical (Prevnar 13) Branch Zoster Vaccine Unknown Completed [facility], [place] [place] [facility] Zoster Vaccine Unknown Completed [facility] [place] [place] [facility] Influenza Virus Unknown Completed Universit y of Vaccine [facility] Influenza Virus Unknown Completed Universit y of Vaccine Quad .5 mL [facility] IM 6+ MO Branch (FLUZONE/FLULAVAL/F LUARIX) SARS-COV-2 COVID-19 Unknown Completed Unive rsity of PFIZER VACCINE [facility] SARS-COV-2 COVID-19 Unknown Completed Unive rsity of OSCAR/J&J VACCINE [facility] Influenza Virus Unknown Completed Universit y of Vaccine [facility] Pneumococcal Unknown Completed University o f Polysaccharide, [facility] ical PPSV23 (PNEUMOVAX) Branch Influenza Virus Unknown Completed Universit y of Vaccine [facility] TDAP Unknown Completed [facility] Influenza Virus Unknown Completed Universit y of Vaccine Quad IM, [facility] dical Preserv and ABX Branch Free 6 MO-64 YRS (FLUCELVAX) Pneumococcal 13 Unknown Completed Universit y of Conjugate, PCV13 [facility] dical (Prevnar 13) Branch Zoster Vaccine Unknown Completed [facility], [place] [place] [facility] Zoster Vaccine Unknown Completed [facility], [place] [place] [facility] Influenza Virus Unknown Completed Universit y of Vaccine [facility] Influenza Virus Unknown Completed Universit y of Vaccine Quad .5 mL [facility] 6+ MO Branch (FLUZONE/FLULAVAL/F LUARIX) SARS-COV-2 COVID-19 Unknown Completed Unive rsity of PFIZER VACCINE [facility] SARS-COV-2 COVID-19 Unknown Completed Unive rsity of OSCAR/J&J VACCINE [facility] Influenza Virus Unknown Completed Universit y of Vaccine [facility] Pneumococcal Unknown Completed University o f Polysaccharide, [facility] ical PPSV23 (PNEUMOVAX) Branch Influenza Virus Unknown Completed Universit y of Vaccine [facility] TDAP Unknown Completed [facility] Influenza Virus Unknown Completed Universit y of Vaccine Quad IM, [facility] dical Preserv and ABX Branch Free 6 MO-64 YRS (FLUCELVAX) Influenza Virus Unknown Completed Universit y of Vaccine - Whole [facility] Branch Pneumococcal Unknown Completed University o f Polysaccharide, [facility] PPSV23 (PNEUMOVAX) Branch Pneumococcal 13 Unknown Completed Universit y of Conjugate, PCV13 [facility] dical (Prevnar 13) Branch Zoster Vaccine Unknown Completed [facility] Recombinant [facility] Zoster Vaccine Unknown Completed [facility], [place] [place] [facility] Influenza Virus Unknown Completed Universit y of Vaccine [facility] Influenza Virus Unknown Completed Universit y of Vaccine Quad .5 mL [facility] 6+ MO Branch (FLUZONE/FLULAVAL/F LUARIX) SARS-COV-2 COVID-19 Unknown Completed Unive rsity of PFIZER VACCINE [facility] Branch SARS-COV-2 COVID-19 Unknown Completed Unive rsity of OSCAR/J&J VACCINE [facility] Influenza Virus Unknown Completed Universit y of Vaccine [facility] Pneumococcal Unknown Completed University o f Polysaccharide, [facility] PPSV23 (PNEUMOVAX) Branch Influenza Virus Unknown Completed Universit y of Vaccine [facility] TDAP Unknown Completed [facility] Influenza Virus Unknown Completed Universit y of Vaccine Quad IM, [facility] dical Preserv and ABX Branch Free 6 MO-64 YRS (FLUCELVAX) Influenza Virus Unknown Completed Universit y of Vaccine - Whole [facility] Branch Pneumococcal Unknown Completed University o f Polysaccharide, [facility] PPSV23 (PNEUMOVAX) Branch Vital Signs Vital Name Observation Time Observation Value Comments Source Systolic blood 2023-07-30 23:55:00 140 mm[Hg] Univer sity of pressure [facility] Diastolic blood 2023-07-30 23:55:00 87 mm[facility]Hg] [facility] Heart rate 2023-07-30 23:55:00 64 /min [facility] Body temperature 2023-07-30 23:55:00 37.11 Kati [facility] Respiratory rate 2023-07-30 23:55:00 14 /min [facility] Body height 2023-07-30 23:55:00 162.6 cm [facility] Body weight 2023-07-30 23:55:00 84.097 kg [facility] BMI 2023-07-30 23:55:00 31.82 kg/m2 [facility] Oxygen saturation in 2023-07-30 23:55:00 98 /min University of Arterial blood by [facility] enrique Pulse oximetry Branch Systolic blood 2023-07-05 20:46:00 128 mm[Hg] Univer sity of pressure [facility] Diastolic blood 2023-07-05 20:46:00 80 mm[Hg] Unive rsity of pressure [facility] Heart rate 2023-07-05 20:46:00 96 /min Universi ty of [facility] Respiratory rate 2023-07-05 20:46:00 19 /min Univ ersity of [facility] Body height 2023-07-05 20:46:00 162.6 cm Universi ty of [facility] Body weight 2023-07-05 20:46:00 81.602 kg Universi ty of [facility] BMI 2023-07-05 20:46:00 30.88 kg/m2 Universi ty of [facility] Oxygen saturation in 2023-07-05 20:46:00 97 /min University of Arterial blood by [facility] Pulse oximetry Branch Systolic blood 2023-06-27 09:02:01 101 mm[Hg] Univer sity of pressure [facility] Diastolic blood 2023-06-27 09:02:01 38 mm[Hg] Unive rsity of pressure [facility] Heart rate 2023-06-27 09:02:01 65 /min Universi ty of [facility] Body temperature 2023-06-27 09:02:01 37 Kati Univ ersity of [facility] Respiratory rate 2023-06-27 09:02:01 18 /min Univ ersity of [facility] Oxygen saturation in 2023-06-27 09:02:01 98 /min University of Arterial blood by [facility] enrique Pulse oximetry Branch Body height 2023-06-27 06:42:00 162.6 cm Universi ty of [facility] Body weight 2023-06-27 06:42:00 81.647 kg Universi ty of [facility] BMI 2023-06-27 06:42:00 30.90 kg/m2 Universi ty of [facility] Systolic blood 2023-06-06 20:17:00 129 mm[Hg] Univer sity of pressure [facility] Diastolic blood 2023-06-06 20:17:00 81 mm[Hg] Unive rsity of pressure [facility] Heart rate 2023-06-06 20:17:00 88 /min Universi ty of [facility] Body temperature 2023-06-06 20:17:00 36.5 Kati Univ ersity of [facility] Body height 2023-06-06 20:17:00 162.6 cm Universi ty of [facility] Body weight 2023-06-06 20:17:00 84.142 kg Universi ty of [facility] BMI 2023-06-06 20:17:00 31.84 kg/m2 Universi ty of [facility] Oxygen saturation in 2023-06-06 20:17:00 98 /min University of Arterial blood by [facility] enrique Pulse oximetry Branch Systolic blood 2023-05-23 16:46:00 107 mm[Hg] Univer sity of pressure [facility] Diastolic blood 2023-05-23 16:46:00 70 mm[Hg] Unive rsity of pressure [facility] Heart rate 2023-05-23 16:46:00 65 /min Universi ty of [facility] Body temperature 2023-05-23 16:46:00 36.56 Kati Univ ersity of [facility] Respiratory rate 2023-05-23 16:46:00 16 /min Univ ersity of [facility] Body height 2023-05-23 16:46:00 162.6 cm Universi ty of [facility] Body weight 2023-05-23 16:46:00 84.641 kg Universi ty of [facility] BMI 2023-05-23 16:46:00 32.03 kg/m2 [facility]i ty of [facility] Oxygen saturation in 2023-05-23 16:46:00 97 /min University of Arterial blood by [facility] en[facility] Pulse oximetry Branch Systolic blood 2023-05-16 13:55:00 133 mm[Hg] Univer sity of pressure [facility] Diastolic blood 2023-05-16 13:55:00 80 mm[Hg] Unive rsity of pressure [facility] Heart rate 2023-05-16 13:55:00 66 /min Universi ty of [facility] Body temperature 2023-05-16 13:55:00 36.28 Kati Univ ersity of [facility] Body height 2023-05-16 13:55:00 162.6 cm Universi ty of [facility] Body weight 2023-05-16 13:55:00 82.373 kg Universi ty of [facility] BMI 2023-05-16 13:55:00 31.17 kg/m2 Universi ty of [facility] Oxygen saturation in 2023-05-16 13:55:00 97 /min [facility] Arterial blood by [facility] Pulse oximetry Branch Systolic blood 2023-02-20 05:45:00 108 mm[Hg] Univer sity of pressure [facility] Diastolic blood 2023-02-20 05:45:00 71 mm[Hg] Unive rsity of pressure [facility] Heart rate 2023-02-20 05:45:00 65 /min Universi ty of [facility] Respiratory rate 2023-02-20 05:45:00 20 /min Univ ersity of [facility] Oxygen saturation in 2023-02-20 05:45:00 95 /min University of Arterial blood by [place] [facility] enrique Pulse oximetry Branch Body temperature 2023-02-20 02:10:00 36.61 Kati Univ ersity of [facility] Body height 2023-02-20 02:10:00 162.6 cm Universi ty of [facility] Body weight 2023-02-20 02:10:00 84.324 kg [facility]i ty of [facility] BMI 2023-02-20 02:10:00 31.91 kg/m2 [facility] ty of [facility] Systolic blood 2023-02-13 20:46:00 113 mm[Hg] Univer sity of pressure [facility] Diastolic blood 2023-02-13 20:46:00 76 mm[Hg] Unive rsity of pressure [facility] Heart rate 2023-02-13 20:45:00 80 /min Universi ty of [facility] Body height 2023-02-13 20:45:00 162.6 cm [facility]i [facility] of [facility] Body weight 2023-02-13 20:45:00 83.553 kg [facility]i ty of [facility] BMI 2023-02-13 20:45:00 31.62 kg/m2 [facility] ty of [facility] Oxygen saturation in 2023-02-13 20:45:00 96 /min University of Arterial blood by [facility] enrique Pulse oximetry Branch Systolic blood 2023-01-31 20:30:00 110 mm[Hg] Univer sity of pressure [facility] Diastolic blood 2023-01-31 20:30:00 59 mm[Hg] Unive rsity of pressure [facility] Branch Respiratory rate 2023-01-31 20:30:00 18 /min Univ ersity of [facility] Body height 2023-01-31 20:30:00 162.6 cm Universi ty of [facility] [place] Body weight 2023-01-31 20:30:00 82.101 kg Universi ty of [facility] BMI 2023-01-31 20:30:00 31.07 kg/m2 Universi ty of [facility] Branch Systolic blood 2023-01-11 17:30:00 109 mm[Hg] Univer sity of pressure [facility] Branch Diastolic blood 2023-01-11 17:30:00 83 mm[Hg] Unive rsity of [facility] Heart rate 2023-01-11 17:30:00 61 /min Universi ty of [facility] Respiratory rate 2023-01-11 17:30:00 18 /min [facility] Oxygen saturation in 2023-01-11 17:30:00 99 /min [facility] Arterial blood by [facility] Pulse oximetry Branch Body temperature 2023-01-11 17:01:00 36 Kati Univ ersity of [facility] Body height 2023-01-11 14:25:00 162.6 cm Universi ty of [facility] [place] Body weight 2023-01-11 14:25:00 81.647 kg Universi ty of [facility] BMI 2023-01-11 14:25:00 30.90 kg/m2 Universi ty of [facility] Branch Systolic blood 2023-01-11 14:25:00 127 mm[Hg] Univer sity of pressure [facility] Branch Diastolic blood 2023-01-11 14:25:00 82 mm[Hg] Unive rsity of pressure [facility] Branch Heart rate 2023-01-11 14:25:00 61 /min Universi ty of [facility] Body height 2023-01-11 14:25:00 162.6 cm Universi ty of [facility] [place] Body weight 2023-01-11 14:25:00 81.647 kg Universi ty of [facility] BMI 2023-01-11 14:25:00 30.90 kg/m2 [facility]i ty of [facility] Body temperature 2023-01-11 14:23:00 36 Kati Univ ersity of [facility] Respiratory rate 2023-01-11 14:23:00 16 /min Univ ersity of [facility] Oxygen saturation in 2023-01-11 14:23:00 97 /min University of Arterial blood by [facility] Pulse oximetry Branch Systolic blood 2022-12-08 20:40:47 121 mm[Hg] Univer sity of pressure [facility] Diastolic blood 2022-12-08 20:40:47 74 mm[Hg] Unive rsity of pressure [facility] Heart rate 2022-12-08 20:40:47 68 /min Universi ty of [facility] Body temperature 2022-12-08 20:40:47 36.72 Kati Univ ersity of [facility] Respiratory rate 2022-12-08 20:40:47 16 /min Univ ersity of [facility] Body height 2022-12-08 19:32:00 162.6 cm Universi ty of [facility] Body weight 2022-12-08 19:32:00 81.647 kg Universi ty of [facility] BMI 2022-12-08 19:32:00 30.90 kg/m2 Universi ty of [facility] Oxygen saturation in 2022-12-08 19:32:00 96 /min University of Arterial blood by [facility] Pulse oximetry Branch Systolic blood 2022-11-29 15:45:00 128 mm[Hg] Univer sity of pressure [facility] Diastolic blood 2022-11-29 15:45:00 80 mm[Hg] Unive rsity of pressure [facility] Heart rate 2022-11-29 15:45:00 85 /min Universi ty of [facility] Body temperature 2022-11-29 15:45:00 37 Kati Univ ersity of [facility] Respiratory rate 2022-11-29 15:45:00 16 /min Univ ersity of [facility] Body height 2022-11-29 15:45:00 162.6 cm [facility]i ty of [facility] Body weight 2022-11-29 15:45:00 82.056 kg Universi ty of [facility] BMI 2022-11-29 15:45:00 31.05 kg/m2 Universi ty of [facility] Oxygen saturation in 2022-11-29 15:45:00 98 /min [facility] Arterial blood by [facility] Pulse oximetry Branch Systolic blood 2022-11-15 18:12:00 117 mm[Hg] Univer sity of pressure [facility] Diastolic blood 2022-11-15 18:12:00 67 mm[Hg] Unive rsity of pressure [facility] Heart rate 2022-11-15 18:12:00 69 /min [facility]i ty of [facility] Body temperature 2022-11-15 18:12:00 37.56 Kati Univ ersity of [facility] Respiratory rate 2022-11-15 18:12:00 20 /min Univ ersity of [facility] Body height 2022-11-15 18:12:00 162.6 cm [facility]i ty [facility] Body weight 2022-11-15 18:12:00 86.183 kg [facility] ty of [facility] BMI 2022-11-15 18:12:00 32.61 kg/m2 [facility] ty [facility] Oxygen saturation in 2022-11-15 18:12:00 96 /min [facility] Arterial blood by [place] [facility] Pulse oximetry Branch Systolic blood 2022-11-15 02:09:00 105 mm[Hg] Univer sity of pressure [facility] Diastolic blood 2022-11-15 02:09:00 69 mm[Hg] Unive rsity of pressure [facility] Heart rate 2022-11-15 02:09:00 58 /min [facility]i ty of [facility] Body temperature 2022-11-15 02:09:00 37.22 Kati Univ ersity of [facility] Respiratory rate 2022-11-15 02:09:00 18 /min Univ ersity of [facility] Body height 2022-11-15 02:09:00 162.6 cm [facility] Body weight 2022-11-15 02:09:00 84.369 kg [facility] BMI 2022-11-15 02:09:00 31.93 kg/m2 [facility] Oxygen saturation in 2022-11-15 02:09:00 96 /min [facility] Arterial blood by [place] [facility] Pulse oximetry Branch Systolic blood 2022-11-10 18:19:00 122 mm[Hg] Univer sity of pressure [facility] Diastolic blood 2022-11-10 18:19:00 71 mm[Hg] Unive rsity of pressure [facility] Heart rate 2022-11-10 18:19:00 70 /min [facility]i ty [facility] Body temperature 2022-11-10 18:19:00 36.5 Kati Univ ersity of [facility] Body height 2022-11-10 18:19:00 162.6 cm [facility]i ty [facility] Body weight 2022-11-10 18:19:00 84.369 kg [facility] ty [facility] BMI 2022-11-10 18:19:00 31.93 kg/m2 [facility]i ty of [facility] Oxygen saturation in 2022-11-10 18:19:00 98 /min University of Arterial blood by [facility] Pulse oximetry Branch Systolic blood 2022-10-13 17:42:00 125 mm[Hg] Univer sity of pressure [facility] Diastolic blood 2022-10-13 17:42:00 77 mm[Hg] Unive rsity of pressure [facility] Heart rate 2022-10-13 17:41:00 74 /min [facility]i ty of [facility] Body temperature 2022-10-13 17:41:00 36.72 Kati Univ ersity of [facility] Body height 2022-10-13 17:41:00 162.6 cm [facility]i ty of [facility] Body weight 2022-10-13 17:41:00 83.008 kg [facility]i ty [facility] BMI 2022-10-13 17:41:00 31.41 kg/m2 Universi ty of [facility] Oxygen saturation in 2022-10-13 17:41:00 98 /min University of Arterial blood by [facility] enrique Pulse oximetry Branch Systolic blood 2022-07-26 19:28:00 113 mm[Hg] Univer sity of pressure [facility] Diastolic blood 2022-07-26 19:28:00 70 mm[Hg] Unive rsity of pressure [facility] Heart rate 2022-07-26 19:28:00 70 /min Universi ty of [facility] Body temperature 2022-07-26 19:28:00 36.78 Kati Univ ersity of [facility] Respiratory rate 2022-07-26 19:28:00 16 /min [facility] Body height 2022-07-26 19:28:00 162.6 cm Universi ty of [facility] Body weight 2022-07-26 19:28:00 84.55 kg Universi ty of [facility] BMI 2022-07-26 19:28:00 32.00 kg/m2 Universi ty of [facility] Systolic blood 2022-07-05 15:18:00 149 mm[Hg] Univer sity of pressure [facility] Diastolic blood 2022-07-05 15:18:00 76 mm[Hg] Unive rsity of pressure [facility] Heart rate 2022-07-05 15:17:00 77 /min Universi ty of [facility] Body temperature 2022-07-05 15:17:00 36.94 Kati [facility] Body height 2022-07-05 15:17:00 162.6 cm Universi ty of [facility] Body weight 2022-07-05 15:17:00 85.73 kg Universi ty of [facility] BMI 2022-07-05 15:17:00 32.44 kg/m2 Universi ty [facility] Oxygen saturation in 2022-07-05 15:17:00 99 /min [facility] Arterial blood by [facility] Pulse oximetry Branch Procedures Procedure Date / Time Performing Source Performed Clinician FLU VACC ([id number]), 6 MO-64 YRS, [facility]23-07-05 [facility] (FLUCELVAX) 20:52:40 [facility] ASSIGNMENT OF BENEFITS 2023-07-05 Doctor Unassigned, Univer sity of 20:35:56 [place] [facility] EKG-12 LEAD 2023-06-27 Sandeep Martinez [facility] 09:01:59 [facility] COMP. METABOLIC PANEL ([id number]) 2023-06-27 Sandeep Martinez Un iversity of 07:07:00 [facility] ETHANOL 2023-06-27 Sandeep Martinez [facility] 07:07:00 [facility] CBC WITH DIFF 2023-06-27 Sandeep Martinez [facility] 07:07:00 [facility] CONSENT/REFUSAL FOR DIAGNOSIS AND 2023-06-27 Doctor Virgie kumari, [facility] 06:30:27 [facility] [facility] POCT HEMOGLOBIN A1C TEST 2023-05-16 Jina Conti [facility] ity of 00:00:00 [facility] DME/SUPPLY JUSTIFICATION 2023-05-10 Doctor Unassvira, [facility] ersity of 05:01:00 [facility] [facility] XR CHEST 1 VW 2023-02-20 Selina Castañeda [place] of 03:57:00 [facility] ACUTE CARE ARTERIAL BLOOD GAS 2023-02-20 Selina Castañeda U niversity of 03:00:00 [facility] TROPONIN I 2023-02-20 Selina Castañeda [facility] of 02:45:00 [facility] COMP. METABOLIC PANEL ([id number]) 2023-02-20 Selina Castañeda U niversity of 02:45:00 [facility] CBC WITH DIFF 2023-02-20 Selina Castañeda [place] of 02:45:00 [facility] D-DIMER 2023-02-20 Selina Castañeda [facility] of 02:45:00 [facility] N-TERMINAL PRO-BNP 2023-02-20 [facility] o f 02:45:00 [facility] NOTICE OF PRIVACY PRACTICES 2023-02-20 Doctor Kerri, U niversity of 02:01:48 [place] [facility] CONSENT/REFUSAL FOR DIAGNOSIS AND 2023-02-20 Doctor Virgie kumari [facility] 02:01:17 [place] [facility] TDAP VACCINE, >11 YRS, IM 2023-02-13 [facility] 21:05:45 [facility] SCANNED LAB RESULTS 2023-01-31 Doctor Daliassvira, Universit y of 05:01:00 [place] [facility] COLONOSCOPY (ENDO) 2023-01-11 [facility] of 16:25:26 [facility] COLONOSCOPY (ENDO) 2023-01-11 [facility] of 16:25:26 [facility] COLONOSCOPY 2023-01-11 Colleen [facility] of 15:50:00 [facility] ESOPHAGOGASTRODUODENOSCOPY 2023-01-11 Gris Nagy [facility] ersity of 15:50:00 [facility] EGD (ENDO) 2023-01-11 [facility] of 15:42:45 [facility] EGD (ENDO) 2023-01-11 [facility] of 15:42:45 [facility] POCT GLUCOSE (AUTOMATED) 2023-01-11 Gris Nagy [facility] sity of 14:45:00 [facility] POCT GLUCOSE (AUTOMATED) 2023-01-11 Gris Nagy [facility] sity of 14:45:00 [facility] ASSIGNMENT OF BENEFITS 2023-01-11 Doctor Kerri [facility] sity of 14:13:08 [place] [facility] TROPONIN I 2022-12-08 Rowena Pelaez [facility] 20:43:00 [facility] COMP. METABOLIC PANEL (67095) 2022-12-08 Rowena Pelaez niversity of 20:43:00 [facility] CBC WITH DIFF 2022-12-08 Rowena Pelaez [facility] 20:43:00 [facility] PROTHROMBIN TIME / INR 2022-12-08 Rowena Pelaez Universi ty of 20:43:00 [facility] ACTIVATED PARTIAL THRMPLAS LELAND 2022-12-08 Rowena Pelaez [facility] 20:43:00 [facility] CONSENT/REFUSAL FOR DIAGNOSIS AND 2022-12-08 Doctor Virgie kumari, [facility] 19:24:13 [place] [facility] POCT MOLECULAR STREP 2022-11-29 Unknown, Attending Universi ty of 15:48:00 [facility] PATIENT FINANCIAL POLICY 2022-11-29 Doctor Manning [facility] 15:13:47 [place] [facility] COMP. METABOLIC PANEL (88412) 2022-11-15 Samir French iversity of 03:07:00 [facility] CBC WITH DIFF 2022-11-15 Josias [facility] 03:07:00 [facility] CONSENT/REFUSAL FOR DIAGNOSIS AND 2022-11-15 Doctor Virgie kumari [facility] 02:00:16 [place] [facility] DISCLOSURE AND CONSENT, MEDICAL 2022-11-11 Doctor Gabriel lieberman [facility] AND SURGICAL PROCEDURES 06:01:[address] [place] [facility] DISCLOSURE AND CONSENT, MEDICAL 2022-11-11 Doctor Jo Gutiérrez of AND SURGICAL PROCEDURES 06:01:[address] [place] [facility] CBC WITH DIFF 2022-10-13 [facility] of 18:52:00 [facility] DME/SUPPLY JUSTIFICATION 2022-08-17 Doctor Unassigned, [facility] ersity of 06:01:00 [place] [facility] SCANNED LAB RESULTS 2022-07-26 Doctor Unassigned, Universit y of 05:01:00 [place] [facility] EXTERNAL PAP SMEAR 2022-07-26 [facility] 05:00:00 Cheryal [facility] CBC WITH DIFF 2022-07-05 [facility] 16:11:00 [facility] URINALYSIS 2022-07-05 [facility] 15:57:00 [facility] POCT URINALYSIS 2022-07-05 [facility] 15:15:00 [facility] ASSIGNMENT OF BENEFITS 2022-07-05 Doctor Unassigned, [facility] sity of 14:48:20 [employer] [facility] Plan of Care Planned Activity Planned Date Details Comments Source Future Scheduled 2022-05-[address] [facility] 00:[facility]:00 (procedure) [code = [facility] 18089822] Future Scheduled 2021-05-[address] [facility] 00:00:00 (#1) [code = [facility] INFLUENZA VACCINE (#1)] Future Scheduled 2020-09-[address] [facility] 00:00:00 (12+) [code = [facility] DEPRESSION SCREENING (12+)] Future Scheduled 2016 SHINGLES VACCINES ([address] [facility] Test 00:00:00 of 2) [code = [facility] SHINGLES VACCINES (1 of 2)] Future Scheduled [address] [facility] 00:[facility]:00 malignant neoplasm of [facility] cervix (procedure) [code = 303588412] Future Scheduled 1985 DTAP/TDAP/TD VACCINES [facility] [...] [facility] Test 00:00:00 malignant neoplasm of [facility] breast (procedure) [code = 469447379] Future Scheduled [address] [facility] 00:00:00 malignant neoplasm of [facility] colon (procedure) [code = 847732381] Encounters Start End Encounter Admission Attending Care Care Encounter Source Date/Time Date/Time Type Type Clinicians Facility Department ID 2023-01-02 Outpatient Uyen RIOS MIVENITA SUNNY [id number] Univers 12:36:47 YOANNA [facility] 2021-07-25 Emergency [facility] [id number] Univers 05:01:25 ity [facility] 2021-07-22 Emergency [facility] [id number] Univers 12:36:18 [facility] 2023-09-01 2023-09-01 Outpatient R RADIOLOGY [facility] [id number] Univers 00:00:00 00:00:00 ity [facility] 2023-08-31 2023-08-31 Outpatient JINA BAILEY [facility] [id number] Univers 10:40:00 10:40:00 JINA CONTI [facility] 2023-08-08 2023-08-08 Outpatient Uyen BRIGGS [facility] [id number] Univers 13:30:00 13:30:00 ELENI itsadia [facility] 2023-08-08 2023-08-08 Outpatient Uyen BRIGGS [facility] [id number] Univers 08:30:00 08:30:00 ELENI itsadia [facility] 2023-08-03 2023-08-03 Outpatient JINA BAILEY [facility] [id number] Univers 09:40:00 09:40:00 JINA CONTI [facility] 2023-07-30 2023-07-30 Outpatient Uyen SCHULTZ [facility] [id number] Univers 17:40:00 18:25:17 GLORIA mccray [facility] 2023-07-30 2023-07-30 Urgent Gloria Schultz [facility] 1.2.840.114 [id number] Univers 17:40:00 18:25:17 Care Unknown, Attending HEALTH 350.1.13.10 ity of [facility] 4.2.7.2.686 Price as TRACE?BLEA [phone] [facility] [address] MEDICAL OFFICE BUILDING 2023-07-30 2023-07-30 Emergency X AMANDA, [facility] ERT [id number] Univers 17:10:11 17:25:00 CASH mccray [facility] 2023-07-22 2023-07-22 Outpatient GC_GCBZW_Ka PRIV PRIV [id number] [facility] 00:00:00 00:00:00 diyala_S [id number] Medic al 2023-07-20 2023-07-20 Telephone Jeannette CAMPA 1.2.840.114 [id number] Univers 00:00:00 00:00:00 , Mira Ina WEBBY 350.1.13.10 [place] of [place] [phone] [facility] [address] 2023-07-10 2023-07-10 [facility] 1.2.840.114 [id number] Univers 00:00:00 00:00:00 Secure [facility] 350.1.13.10 ity of [place] 4.2.7.2.686 Price as TRACE?BLEA [id number] [facility] [address] MEDICAL OFFICE [facility] 2023-07-06 2023-07-06 Telephone [facility] 1.2.106.649 [id number] Univers 00:00:00 00:00:00 Sancho PURITON 350.1.13.10 ity of [place].2.[place] [phone] [facility] 059 [facility] 2023-07-06 2023-07-06 Telephone [facility] 1.2.744.133 [id number] Univers 00:00:00 00:00:00 Sancho [place] 350.1.13.10 ity of [facility] 4.2.7.2.[place] [id number] [address] 2023-07-05 2023-07-05 [facility] [id number] Univers 15:40:00 16:11:25 PARTHABELLE ity o f [facility] 2023-07-05 2023-07-05 Office [facility] 1.2.840.114 [id number] Univers 15:40:00 16:11:25 Visit Sancho [place] 350.1.13.10 ity of [place] 4.2.7.2.[place] [phone] [address] 2023-07-05 2023-07-05 Orders Doctor ERMA 1.2.840.114 [id number] Univers 00:00:00 00:00:00 Only Unassigned, LAXMI 350.1.13.10 ity of [place] [facility] 4.2.7.2.686 Price as [id number] [address] 2023-07-03 2023-07-03 [facility] 1.2.840.114 [id number] Univers 00:00:00 00:00:00 Satinder HEALTH 350.1.13.10 it y of [place]dro[place] 4.2.7.2.686 Price as TRACE?BLEA [id number] [address] OFFICE [facility] 2023-07-02 2023-07-02 Refill [facility] 1.2.840.114 [id number] Univers 00:00:00 00:00:00 Jina HEALTH 350.1.13.10 ity of [place] 4.2.7.2.686 Price as TRACE?BLEA [id number] [address] OFFICE [facility] 2023-07-01 2023-07-01 Patient [facility] 1.2.840.114 [id number] Univers 00:00:00 00:00:00 Secure Msg Jina HEALTH 350.1.13.10 ity of [facility] 4.2.7.2.686 Price as TRACE?BLEA [id number] [facility] [address] [place] MEDICAL OFFICE BUILDING 2023-06-28 2023-06-28 Telephone JANICE Briggs 1.2.239.106 [id number] Univers 00:00:00 00:00:00 Eleni A LAXMI 350.1.13.10 it y of HOSPITAL 4.2.7.2.686 Price as [phone] [facility] [address] 2023-06-27 2023-06-27 Emergency X [facility] ERT [id number] Univers 01:44:00 04:39:00 SANDEEP ity [facility] 2023-06-27 2023-06-27 Emergency [facility] 1.2.339.786 [id number] Univers 01:44:00 04:39:00 Sandeep LIVE 350.1.13.10 i ty of [place]2.7.2.[place] [phone] [facility] [address] 2023-06-26 2023-06-26 Telephone Gallito [facility] 1.2.183.783 [id number] Univers 00:00:00 00:00:00 [facility] 350.1.13.10 ity of [place] 4.2.7.2.686 Price as TRACE?BLEA [id number] [address] MEDICAL OFFICE [facility] 2023-06-15 2023-06-15 Letter [facility] 1.2.840.114 [id number] Univers 00:00:00 00:00:00 (Out) [facility] MULTISPEC 350.1.13.10 ity of Endocrine [place].2.[place] [phone] [facility] AND MARTINEZ [address] [facility] 2023-06-13 2023-06-13 Outpatient R BRIGITTE [facility] [id number] Univers 12:46:13 23:59:00 ELENI ity of [facility] 2023-06-12 2023-06-12 Patient Doctor ERMA 1.2.840.114 [id number] Univers 00:00:00 00:00:00 Secure Msg Unassigned, LAX[place] 350.1.13.10 ity [facility] 4.2.7.2.686 Price as [id number] [address] 2023-06-10 2023-06-10 [facility]ill [facility] 1.2.840.114 [id number] Univers 00:00:00 00:00:00 [facility] 350.1.13.10 ity of [place] 4.2.7.2.686 Price as TRACE?BLEA [id number] [address] MEDICAL OFFICE BUILDING 2023-06-09 2023-06-09 Telephone [facility] 1.2.598.910 [id number] Univers 00:00:00 00:00:00 [facility] 350.1.13.10 ity of [place] 4.2.7.2.686 Price as TRACE?BLEA [phone] [address] OFFICE [facility] 2023-06-08 2023-06-08 Outpatient R BRIGITTE [facility] [id number] Univers 14:00:00 14:00:00 ELENI ity [facility] 2023-06-06 2023-06-06 Outpatient R GALLITO JINA [facility] [id number] Univers 15:20:00 16:02:52 JINA CONTI [facility] 2023-06-06 2023-06-06 Office [facility] 1.2.840.114 [id number] Univers 15:20:00 16:02:52 Visit [facility] 350.1.13.10 ity of [place] 4.2.7.2.686 Price as TRACE?BLEA [id number] [address] OFFICE [facility] 2023-06-05 2023-06-05 Refill [facility] 1.2.840.114 [id number] Univers 00:00:00 00:00:00 [place] HEALTH 350.1.13.10 it y of [place] 4.2.7.2.686 Price as TRACE?BLEA [id number] [address] MEDICAL OFFICE [facility] 2023-06-02 2023-06-02 Telephone Kley, [facility] 1.2.416.161 [id number] Univers 00:00:00 00:00:00 Jina LIVE 350.1.13.10 ity of [place] [phone] Wa dawn STEWART 0[address] [facility] 2023-05-23 2023-05-23 Office Brigitte [facility] 1.2.840.114 [id number] Univers 11:30:00 12:00:00 Visit Eleni A [facility] 350.1.13.10 it y of [place] 4.2.7.2.686 [place] [phone] [facility] [address] OFFICE BUILDING 2023-05-23 2023-05-23 Outpatient R BRIGITTE [facility] [id number] Univers 11:30:00 11:30:00 ELENI ity of [facility] 2023-05-19 2023-05-19 Patient Doctor [facility] 1.2.840.114 [id number] Univers 00:00:00 00:00:00 Secure Msg Unassigned, HEALTH 350.1.13.10 ity of [place] 4.2.7.2.686 Price as TRACE?BLEA [id number] [place] dawn PARKER 044 [facility] OFFICE [facility] 2023-05-16 2023-05-16 Bar Pointer Lab, Ang - Db [facility] 1.2.840.1 14 [id number] Univers 10:30:00 10:45:00 Visit Jina Conti JULY 350.1.13.10 ity of [place] 4.2.7.2.686 Price as TRACE?BLEA [phone] Wa dawn PARKER 353 [facility] OFFICE [facility] 2023-05-16 2023-05-16 Outpatient R JINA CONTI [facility] [id number] Univers 09:40:00 09:56:16 JINA CONTI [facility] 2023-05-16 2023-05-16 Office Gallito [facility] 1.2.840.114 [id number] Univers 09:40:00 09:56:16 Visit Jina HEALTH 350.1.13.10 ity of [place] 4.2.7.2.686 Price as TRACE?BLEA [phone] [address] MEDICAL OFFICE [facility] 2023-05-12 2023-05-12 Refmarkos Conti, [facility] 1.2.840.114 [id number] Univers 00:00:00 00:00:00 Jina HEALTH 350.1.13.10 ity of [facility] 4.2.7.2.686 Price as TRACE?BLEA [id number] [address] OFFICE [facility] 2023-05-10 2023-05-10 Refmarkos Conti, [facility] 1.2.840.114 [id number] Univers 00:00:00 00:00:00 Jina HEALTH 350.1.13.10 ity of [facility] 4.2.7.2.686 Price as TRACE?BLEA [phone] [address] OFFICE [facility] 2023-05-10 2023-05-10 Orders Doctor ERMA 1.2.840.114 [id number] Univers 00:00:00 00:00:00 Only Unassigned, LAXMI 350.1.13.10 ity of [place] [facility] 4.2.7.2.686 Price as [phone] [address] 2023-05-08 2023-05-08 Outpatient [facility] [id number] 17:52:59 17:52:59 95983 F Marino 2023-04-19 2023-04-19 [facility] 1.2.840.114 [id number] Univers 00:00:00 00:00:00 Jina HEALTH 350.1.13.10 ity of [facility] 4.2.7.2.686 Price as TRACE?BLEA [id number] [address] OFFICE [facility] 2023-04-08 2023-04-08 Refmarkos Conti, [facility] 1.2.840.114 [id number] Univers 00:00:00 00:00:00 Jina HEALTH 350.1.13.10 ity of [place] 4.2.7.2.686 Price as TRACE?BLEA [id number] [address] OFFICE [facility] 2023-03-27 2023-03-27 Outpatient R FARRAH POWELL [facility] U TMB [id number] Univers 11:00:00 11:00:00 FARRAH POWELL ity [facility] 2023-03-22 2023-03-22 Refmarkos [facility] 1.2.840.114 [id number] Univers 00:00:00 00:00:00 [facility] 350.1.13.10 ity of [place] 4.2.7.2.686 Price as TRACE?BLEA [id number] Wa dical KNEY 044 [facility] 2023-03-17 2023-03-17 Patient Doctor [facility] 1.2.840.114 [id number] Univers 00:00:00 00:00:00 Secure Msg Unassigned, [place] 350.1.13.10 ity of [place] [phone] Wa dical NAL [address] [facility] 2023-03-16 2023-03-16 Outpatient R KRISTINA [facility] [id number] Univers 12:30:00 12:30:00 [facility]23-[facility]-14 2023-03-14 Outpatient R BRIGITTE [facility] [id number] Univers 14:30:00 14:30:00 [facility] 2023-03-14 2023-03-14 Outpatient R BRIGITTE [facility] [id number] Univers 14:30:00 14:30:00 ELENI ity [facility] 2023-03-14 2023-03-14 Outpatient R BRIGITTE [facility] [id number] Univers 14:30:00 14:30:00 ELENI [facility] 2023-03-14 2023-03-14 Outpatient R BRIGITTE [facility] [id number] Univers 14:30:00 14:30:00 ELENI [facility] 2023-03-11 2023-03-11 Kevin [facility] 1.2.840.114 [id number] Univers 00:00:00 00:00:00 [facility] 350.1.13.10 ity of [facility] 4.2.7.2.686 Price as TRACE?BLEA [id number] [place] dawn MATHIASEY [address] MEDICAL OFFICE BUILDING 2023-03-06 2023-03-06 Outpatient R FARRAH POWELL [facility] U TMB [id number] Univers 14:30:00 14:30:00 FARRAH POWELL ity of [facility] 2023-03-02 2023-03-02 Telephone [facility] 1.2.840.114 [id number] Univers 00:00:00 00:00:00 s, Farrah MARIA T 350.1.13.10 ity of [place].2.[place].2.[place] [facility] [phone] [place] dawn STEWART [address] [facility] 2023-02-19 2023-02-20 Emergency X [facility] [id number] Univers 21:14:00 01:07:00 [facility] 2023-02-19 2023-02-20 Emergency [facility] 1.2.274.190 [id number] Univers 21:14:00 01:07:00 Selina LIVE 350.1.13.10 ity of [facility] 4.2.7.2.[place] [phone] [facility] [address] [place] 2023-02-19 2023-02-19 Orders Doctor ERMA 1.2.840.114 [id number] Univers 00:00:00 00:00:00 Only Unassigned, LAX[place] 350.1.13.10 ity of [place] [facility] 4.2.7.2.686 Price as [phone] [facility] [address] 2023-02-13 2023-02-13 Outpatient R JINA CONTI [facility] [id number] Univers 15:20:00 16:14:06 JINA CONTI [facility] 2023-02-13 2023-02-13 Office [facility] 1.2.840.114 [id number] Univers 15:20:00 16:14:06 Visit [facility] 350.1.13.10 ity of [facility] 4.2.7.2.686 Price as TRACE?BLEA [phone] Wa dicclay PARKER [address] [place] [address] MEDICAL OFFICE BUILDING 2023-02-06 2023-02-06 Telephone [facility] 1.2.840.11 [id number] Univers 00:00:00 00:00:00 Jasmyne ABRAMS 350.1.13.10 it y of [place] HEALTH [phone] [address] 2023-02-06 2023-02-06 Telephone [facility] 1.2.840.11 [id number] Univers 00:00:00 00:00:00 Jasmyne ABRAMS 350.1.13.10 it y of [place].2.[place] HEALTH [id number] [address] 2023-01-31 2023-01-31 Outpatient R JASMYNE YANEZ [facility] B [id number] Univers 15:30:00 15:49:44 JASMYNE YANEZ [facility] 2023-01-31 2023-01-31 Office [facility] 1.2.840.114 [id number] Univers 15:30:00 15:49:44 Visit Jasmyne ABRAMS 350.1.13.10 it y of [place] 4[place] HEALTH [phone] [address] 2023-01-31 2023-01-31 Orders Doctor ERMA 1.2.840.114 [id number] Univers 00:00:00 00:00:00 Only Unassigned, LAX[place] 350.1.13.10 ity of [place] [facility] 4.2.7.2.686 Price as [phone] [address] 2023-01-30 2023-01-30 Telephone [facility] 1.2.304.840 [id number] Univers 00:00:00 00:00:00 [facility] 350.1.13.10 ity of [facility] 4.2.7.2.686 Price as TRACE?BLEA [id number] [place] dawn MATHIAS[address] OFFICE [facility] 2023-01-26 2023-01-26 Refill [facility] 1.2.840.114 [id number] Univers 00:00:00 00:00:00 Jina HEALTH 350.1.13.10 ity of [place] 4.2.7.2.686 Price as TRACE?BLEA [id number] [place] [address] OFFICE [facility] 2023-01-23 2023-01-23 Outpatient R CANDESARANYAARACELIGABBY JASMYNE [facility] B [id number] Univers 13:00:00 13:00:[address] [facility] AMARAL [facility] 2023-01-20 2023-01-20 Outpatient R RENATA [facility] B [id number] Univers 10:00:00 10:00:00 [facility] 2023-01-18 2023-01-18 Telephone [facility] 1.2.720.940 [id number] Univers 00:00:00 00:00:00 [facility] 350.1.13.10 ity of [facility] 4.2.7.2.686 Price as TRACE?BLEA [phone] [place] [address] 2023-01-11 2023-01-11 Outpatient R RANCHO [facility] [id number] Univers 09:13:00 12:37:00 GRIS ity [facility] 2023-01-11 2023-01-11 Hospital [facility] 1.2.488.477 [id number] Univers 09:13:00 12:37:00 Encounter Gris HEALTH 350.1.13.10 ity of [place].2.[place] [facility] [phone] [address] ([facility]) 2023-01-11 2023-01-11 Surgery [facility] [id number] Univers 10:30:00 11:30:00 Gris SPECIALTY [id number] [id number] [phone] [place] 020 [facility] 2023-01-11 2023-01-11 Orders Doctor [facility] [id number] Univers 00:00:00 00:00:00 Only Unassigned, LAXMI [id number] ity of [facility] [id number] Price as [phone] [address] 2023-01-10 2023-01-10 Outpatient R JASMYNE YANEZ [facility] B [id number] Univers 00:00:00 00:00:00 JASMYNE YANEZ ity [facility] 2023-01-10 2023-01-10 Patient Doctor [facility] [id number] Univers 00:00:00 00:00:00 Secure Msg Unassigned, SPECIALTY [id number] ity of [place] [facility] [place].2.[place] [phone] [place] sergeyclay QUINTEROS 072 [facility] 2023-01-09 2023-01-09 Telephone Brigitte [facility] [id number] Univers 00:00:00 00:00:00 Eleni A HEALTH 350.1.13.10 it y of [place].2.[place].2.[place] [phone] [address] OFFICE [facility] 2023-01-09 2023-01-09 Kevin Conti [facility] 1.2.840.114 [id number] Univers 00:00:00 00:00:00 Jina HEALTH 350.1.13.10 ity of [place] 4.2.7.2.686 Price as TRACE?BLEA [phone] [place] MATHIASJOSE MARTIN 044 [facility] OFFICE BUILDING 2022-12-29 2022-12-29 Patient Doctor [facility] 1.2.840.114 [id number] Univers 00:00:00 00:00:00 Secure Msg Unassigned, [place] 350.1.13.10 ity of [place].2.7.2.686 [place] [facility] [phone] [place] dic[place] 154879 [facility] 2022-12-27 2022-12-27 Telephone Ander [facility] 1.2.840.114 1 [id number] Univers 00:00:00 00:00:00 Vidya SPECIALTY 350.1.13.10 ity of C[place] 4.2.7.2.686 [place] AT [phone] Wa dawn QUINTEROS 072 [facility] 2022-12-19 2022-12-19 Telephone [facility] 1.2.738.538 7020 [id number] Univers 00:00:00 00:00:00 Elein A HEALTH 350.1.13.10 it y of [place] [phone] [address] OFFICE [facility] 2022-12-19 2022-12-19 Refill [facility] 1.2.840.114 [id number] Univers 00:00:00 00:00:00 Jina HEALTH 350.1.13.10 ity of [place] 4.2.7.2.686 Price as TRACE?BLEA 471.8831797 [place] dawn PARKER 044 [facility] OFFICE [facility] 2022-12-08 2022-12-08 Emergency X [facility] ERT [id number] Univers 14:34:00 17:44:00 ROWENA mccray of [facility] 2022-12-08 2022-12-08 Emergency [facility] 1.2.411.579 [id number] [id number] Univers 14:34:00 17:44:00 Rowena LIVE 350.1.13.10 ity of [facility] 4.2.7.2.686 [place] [phone] [facility] [address] [place] 2022-12-08 2022-12-08 Telephone [facility] 1.2.977.866 [id number] Univers 00:00:00 00:00:00 Eleni Corry [place] 350.1.13.10 i ty of [facility] 4.2.7.2.686 [place] [facility] [phone] Wa sergeyclay [facility] 059 [facility] 2022-12-08 2022-12-08 Telephone [facility] 1.2.866.650 4684 [id number] Univers 00:00:00 00:00:00 Jina HEALTH 350.1.13.10 ity of [place] 4.2.7.2.686 Price as TRACE?BLEA [phone] [facility] [address] [place] MEDICAL OFFICE [facility] 2022-11-29 2022-11-29 Outpatient R RUSS MIVENITA [facility] [id number] Univers 09:40:00 10:08:23 REENU ity of [facility] 2022-11-29 2022-11-29 Urgent Ty Solano [facility] 1.2.840.11 4 [id number] Univers 09:40:00 10:08:23 Care Unknown, [facility] HEALTH 350.1.13.10 ity of [facility] 4.2.7.2.686 Price as TRACE?BLEA [phone] [facility] 370 [facility] OFFICE [facility] 2022-11-29 2022-11-29 Orders Doctor ERMA 1.2.840.114 [id number] Univers 00:00:00 00:00:00 Only Unassigned, [place] 350.1.13.10 ity of [place] [facility] 4.2.7.2.686 Price as [id number] [facility] [address] [place] 2022-11-29 2022-11-29 Telephone Russ [facility] 1.2.840.114 10 [id number] Univers 00:00:00 00:00:00 [facility] 350.1.13.10 it y of [place] 4.2.7.2.686 Price as TRACE?BLEA 132.2731401 [facility] [address] [place] MEDICAL OFFICE [facility] 2022-11-20 2022-11-20 Patient Doctor ERMA 1.2.840.114 [id number] Univers 00:00:00 00:00:00 Secure Msg Unassigned, [place] 350.1.13.10 ity of [place] [facility] 4.2.7.2.686 Price as [phone] [facility] [address] [place] 2022-11-15 2022-11-15 Nurse 1, Adc Infusion Chair [facility] 1.2. 840.114 [id number] Univers 12:00:00 14:30:00 Visit Reji Acevedo 350.1.13.10 ity of [place] 4.2.7.2.686 [place] SURGICAL [phone] Med ical CENTER [address] 2022-11-15 2022-11-15 Outpatient R [facility] [id number] Univers 12:00:00 12:00:00 REJI ity [facility] 2022-11-14 2022-11-14 Emergency [facility] ERT [id number] Univers 20:18:00 22:59:00 CHRISTVIVEK it y [facility] 2022-11-14 2022-11-14 [facility] 1.2.828.321 [id number] Univers 20:18:00 22:59:00 Jenna LIVE 350.1.13.10 ity of [place] 4.2.7.2.686 [place] CAMPUS [id number] [facility] [address] 2022-11-14 2022-11-14 Telephone Ander [facility] 1.2.840.114 1 [id number] Univers 00:00:00 00:00:00 Vidya SPECIALTY 350.1.13.10 ity of CARE 4.2.7.2.686 [place] CENTER AT [phone] Wa dicclay QUINTEROS 2 [facility] 2022-11-11 2022-11-11 Patient Doctor [facility] 1.2.406.706 [id number] [id number] Univers 00:00:00 00:00:00 Secure Msg Unassigned, ICAL 350.1.13.10 ity of [place] 4.2.7.2.686 Price as BLDG [phone] [facility] [address] 2022-11-10 2022-11-10 Outpatient R [facility] [id number] Univers 12:30:00 13:40:52 REJI [facility] 2022-11-10 2022-11-10 Office Vidya Worthington [facility] 1.2.840.11 4 [id number] Univers 12:30:00 13:40:52 Visit Reji Acevedo SPECIALTY 350.1.13.10 ity of CARE 4.2.7.2.686 [place] CENTER AT [phone] Wa dical VICTORY 072 [facility] 2022-11-05 2022-11-05 Patient Doctor ERMA 1.2.840.114 [id number] Univers 00:00:00 00:00:00 Secure Msg Unassigned, [place] 350.1.13.10 it[facility] 4.2.7.2.686 Price as [id number] [address] 2022-11-04 2022-11-04 Refill [facility] 1.2.840.114 [id number] Univers 00:00:00 00:00:00 Jina HEALTH 350.1.13.10 ity of [place] 4.2.7.2.686 Price as TRACE?BLEA [phone] [address] MEDICAL OFFICE BUILDING 2022-11-04 2022-11-04 Telephone MorrowMode [facility] 1.2.840.114 [id number] Univers 00:00:00 00:00:00 ise, SPECIALTY 350.1.13.10 ity of [facility] 4.2.7.2.686 [place] CENTER AT [phone] Wa dawn QUINTEROS [address] [place] [address] 2022-10-26 2022-10-26 Telephone Gallito [facility] 1.2.800.762 [id number] [id number] Univers 00:00:00 00:00:00 Jina HEALTH 350.1.13.10 ity of [place] 4.2.7.2.686 Price as TRACE?BLEA [phone] [address] MEDICAL OFFICE [facility] 2022-10-17 2022-10-17 Telephone Gallito [facility] 1.2.921.801 [id number] [id number] Univers 00:00:00 00:00:00 Jina HEALTH 350.1.13.10 ity of [place] 4.2.7.2.686 Price as TRACE?BLEA [id number] [address] MEDICAL OFFICE BUILDING 2022-10-13 2022-10-13 [facility], Ang - Chris [facility] 1.2.840.1 14 [id number] Univers 12:30:00 12:35:49 Visit [facility], Jina HEALTH 350.1.13.10 ity of [place] 4.2.7.2.686 Price as TRACE?BLEA 320.2821100 Wa dicclay PARKER [address] [place] MEDICAL OFFICE BUILDING 2022-10-13 2022-10-13 Outpatient R GALLITO [facility] [id number] Univers 11:00:00 12:14:06 JINA ity [facility] 2022-10-13 2022-10-13 Office [facility] 1.2.840.114 [id number] Univers 11:00:00 12:14:06 Visit [facility] 350.1.13.10 ity of [place] 4.2.7.2.686 Price as TRACE?BLEA [id number] [facility] 044 [facility] OFFICE [facility] 2022-09-28 2022-09-28 Office [facility] 1.2.669.869 4575 [id number] Univers 11:30:00 12:00:00 Visit [facility] Pat [place] 350.1.13.10 ity [facility] 4.2.7.2.[place] [phone] Wa dicclay NAL 085 [facility] 2022-09-28 2022-09-28 Outpatient R RAQUEL NOLAN [facility] [id number] Univers 11:30:00 11:30:00 [facility]22-09-27 2022-09-27 Refill [facility] 1.2.840.114 [id number] Univers 00:00:00 00:00:00 [facility] 350.1.13.10 ity of [place] 4.2.7.2.686 Price as TRACE?BLEA [phone] Wa dicny STEW [address] [place] MEDICAL OFFICE [facility] 2022-09-22 2022-09-22 Refill [facility] 1.2.840.114 [id number] Univers 00:00:00 00:00:00 [facility] 350.1.13.10 ity of [place] 4.2.7.2.686 Price as TRACE?BLEA [phone] [facility] 044 [facility] OFFICE [facility] 2022-09-22 2022-09-22 Refill [facility] 1.2.840.114 [id number] Univers 00:00:00 00:00:00 Jina HEALTH 350.1.13.10 ity of [place] 4.2.7.2.686 Price as TRACE?BLEA [id number] [address] OFFICE [facility] 2022-08-30 2022-08-30 Outpatient R DIETER [facility] [id number] Univers 09:20:00 09:20:00 OSVALDO ity [facility] 2022-08-29 2022-08-29 Kevin [facility] 1.2.840.114 [id number] Univers 00:00:00 00:00:00 Jina HEALTH 350.1.13.10 ity of [place] 4.2.7.2.686 Price as TRACE?BLEA [id number] [address] 2022-08-17 2022-08-17 Orders Doctor RITCHIE 1.2.840.114 [id number] Univers 00:00:00 00:00:00 Only Unassigned, [place] 350.1.13.10 ity of [place] [facility] 4.2.7.2.686 Price as [phone] [address] 2022-08-16 2022-08-16 Outpatient R CHANDRA GARCIA [facility] [id number] Univers 14:00:00 14:00:00 ity [facility] 2022-08-16 2022-08-16 Outpatient R CHANDRA GARCIA [facility] [id number] Univers 14:00:00 14:00:00 ity of [facility] 2022-08-16 2022-08-16 Outpatient R GALLITO [facility] [id number] Univers 11:00:00 11:00:00 JINA ity [facility] 2022-08-16 2022-08-16 Refmarkos [facility] 1.2.840.114 [id number] Univers 00:00:00 00:00:00 Jina HEALTH 350.1.13.10 ity of [place] 4.2.7.2.686 Price as TRACE?BLEA [phone] Me dical KNEY [address] [place] [address] 2022-08-15 2022-08-15 Refill [facility] 1.2.840.114 [id number] Univers 00:00:00 00:00:00 Jina HEALTH 350.1.13.10 ity of [place] 4.2.7.2.686 Price as TRACE?BLEA 456.7146812 Wa dawn PARKER [address] [place] [address] 2022-08-12 2022-08-12 Telephone [place] 32250.840.11 4 [id number] Univers 00:00:00 00:00:00 Jasmyne ABRAMS 350.1.13.10 it y of W[place] 4.2.[place].2.[place] HE[place] 495.9870887 [address] 2022-08-08 2022-08-08 Telephone [place] 32250.840.11 4 [id number] Univers 00:00:00 00:00:00 Jasmyne ALIZA 350.1.13.10 it [place] [facility] [id number] [address] 2022-08-08 2022-08-08 Abstract [facility] 1.2.840.114 [id number] Univers 00:00:00 00:00:00 Jasmyne ALIZA 350.1.13.10 it y [place] 122.3822698 [address] 2022-08-02 2022-08-02 Kevin [facility] 1.2.840.114 [id number] Univers 00:00:00 00:00:00 Wondiful A HEALTH 350.1.13.10 ity of [place] 4.2.7.2.686 Price as TRACE?BLEA 135.1344992 Wa dawn PARKER [address] [place] [address] 2022-08-01 2022-08-01 Patient [facility] 1.2.840.114 [id number] Univers 00:00:00 00:00:00 Secure Msg Ijna HEALTH 350.1.13.10 ity of [place] 4.2.7.2.686 Price as TRACE?BLEA 487.2169151 Me dical KEITH [address] [place] MEDICAL OFFICE [facility] 2022-07-26 2022-07-26 Outpatient R JASMYNE YANEZ [facility] B [id number] Univers 14:00:00 15:08:39 TRIJASMYNE AMARAL ity of [facility] 2022-07-26 2022-07-26 Office Renata [facility] KATLIN 1.2.840.114 [id number] Univers 14:00:00 15:08:39 Visit Jasmyne ALIZA 350.1.13.10 it y of W[place]EN'[place] 4.2.7.2.686 [place] [facility] [phone] [facility] [address] [place] 2022-07-26 2022-07-26 Orders Doctor ERMA 1.2.840.114 [id number] Univers 00:00:00 00:00:00 Only Unassigned, [place] 350.1.13.10 ity of [place] [facility] 4.2.7.2.686 Price as 444.0283915 [facility] [address] [place] 2022-07-12 2022-07-12 Outpatient R [facility] [id number] Univers 09:15:00 09:15:00 ISE, ity of [facility] 2022-07-11 2022-07-11 Telephone [facility] 1.2.840.114 [id number] Univers 00:00:00 00:00:00 ise, SPECIALTY 350.1.13.10 ity of [facility] 4.2.7.2.686 [facility] AT [phone] Wa sergeyclay QUINTEROS 072 [facility] 2022-07-05 2022-07-05 Bar Pointer [facility], Ang - Db [facility] 1.2.840.1 14 [id number] Univers 11:15:00 11:30:00 Visit Jina Conti [facility] 350.1.13.10 ity of [place] 4.2.7.2.686 Price as TRACE?BLEA [id number] Me sergeyclay PARKER [address] [place] MEDICAL OFFICE [facility] 2022-07-05 2022-07-05 [facility]patient [facility] [id number] Univers 09:40:00 11:01:55 JINA ity of [facility] 2022-07-05 2022-07-05 Office Gallito, [facility] 1.2.840.114 [id number] Univers 09:40:00 11:01:55 Visit Jina HEALTH 350.1.13.10 ity of [facility] 4.2.7.2.686 Price as TRACE?BLEA 032.3688684 [address] OFFICE [facility] 2022-07-05 2022-07-05 Orders Doctor ERMA 1.2.840.114 [id number] Univers 00:00:00 00:00:00 Only Unassigned, [place] 350.1.13.10 ity of [place] [facility] 4.2.7.2.686 Price as 502.9949330 [address] 2022-07-04 2022-07-04 Refill [facility] 1.2.840.114 [id number] Univers 00:00:00 00:00:00 Angelina A HEALTH 350.1.13.10 i ty of [facility] 4.2.7.2.686 Price as TRACE?BLEA [phone] [address] OFFICE [facility] 2022-07-03 2022-07-03 Refmarkos [facility] 1.2.840.114 [id number] Univers 00:00:00 00:00:00 Angelina A HEALTH 350.1.13.10 i ty of [facility] 4.2.7.2.686 Price as TRACE?BLEA 846.2761066 [address] OFFICE [facility] 2022-07-03 2022-07-03 Refmarkos [facility] 1.2.840.114 [id number] Univers 00:00:00 00:00:00 Eleni A [place] 350.1.13.10 i ty of [place] 4.2.7.2.686 [place] ESSIO [id number] [facility] 059 [facility] 2022-07-03 2022-07-03 Refill [facility] 1.2.840.114 [id number] Univers 00:00:00 00:00:00 Faustino HEALTH 350.1.13.10 it y of [facility] 4.2.7.2.686 Priec as TRACE?BLEA 316.4634863 [address] OFFICE [facility] 2022-07-03 2022-07-03 Kevin [facility] 1.2.840.114 [id number] 900 Univers 00:00:00 00:00:00 Wondiful A HEALTH 350.1.13.10 ity of [place] 4.2.7.2.686 Price as TRACE?BLEA [id number] [address] OFFICE [facility] 2022-06-27 2022-06-27 [facility] 1.2.158.195 1839 6449 Univers 00:00:00 00:00:00 Angelina A HEALTH 350.1.13.10 i ty of [place] 4.2.7.2.686 Price as TRACE?BLEA 805.0582872 [address] OFFICE [facility] 2022-06-25 2022-06-25 Kevin [facility] 1.2.840.114 [id number] Univers 00:00:00 00:00:00 Wondiful A HEALTH 350.1.13.10 ity of [place] 4.2.7.2.686 Price as TRACE?BLEA [id number] [address] OFFICE [facility] 2022-06-16 2022-06-16 [facility] 1.2.840.114 [id number] Univers 00:00:00 00:00:00 Angelina A HEALTH 350.1.13.10 i ty of [place] 4.2.7.2.686 Price as TRACE?BLEA 701.2818740 [address] OFFICE [facility] 2022-06-15 2022-06-15 [facility] 1.2.840.114 [id number] Univers 00:00:00 00:00:00 Satinder HEALTH 350.1.13.10 it y of Edward [place] 4.2.7.2.686 Price as TRACE?BLEA 170.2937949 [address] OFFICE [facility] 2022-06-13 2022-06-13 Refmarkos [facility] 1.2.840.114 [id number] Univers 00:00:00 00:00:00 Satinder HEALTH 350.1.13.10 it y of Edward [place] 4.2.7.2.686 Price as TRACE?BLEA 005.5808383 [address] MEDICAL OFFICE [facility] 2022-06-08 2022-06-08 Telephone Chela, [facility] 1.2.916.817 [id number] [id number] Univers 00:00:00 00:00:00 Angelina A HEALTH 350.1.13.10 i ty of [place] 4.2.7.2.686 Price as TRACE?BLEA 050.7446666 [address] OFFICE [facility] 2022-06-08 2022-06-08 Patient Doctor [facility] 1.2.840.114 [id number] Univers 00:00:00 00:00:00 Secure Msg Unassigned, HEALTH 350.1.13.10 ity of [place] 4.2.7.2.686 Price as TRACE?BLEA 245.8414819 [address] OFFICE [facility] 2022-06-08 2022-06-08 Patient Doctor ERMA 1.2.840.114 [id number] Univers 00:00:00 00:00:00 Secure Msg Unassigned, LAXMI 350.1.13.10 ity of [place] [facility] 4.2.7.2.686 Price as 353.3867651 [address] 2022-06-04 2022-06-04 Refmarkos HunterPLA[facility] 1.2.840.114 [id number] Univers 00:00:00 00:00:00 Wondiful A HEALTH 350.1.13.10 ity of [place] 4.2.7.2.686 Price as TRACE?BLEA 783.5632716 [address] OFFICE [facility] 2022 2022 Kevin Thao [facility] 1.2.840.114 [id number] Univers 00:00:00 00:00:00 Shell HEALTH 350.1.13.10 it y of [place] 4.2.7.2.686 Price as TRACE?BLEA 495.6169869 [facility] [address] [place] [address] MEDICAL OFFICE [facility] 2022 2022 Refill Dale [facility] 1.2.840.114 [id number] Univers 00:00:00 00:00:00 Wondiful A HEALTH 350.1.13.10 ity of [place] 4.2.7.2.686 Price as TRACE?BLEA [id number] [address] OFFICE [facility] 2022-06-01 2022-06-01 Refill Keesha [facility] 1.2.840.114 [id number] Univers 00:00:00 00:00:00 Shell HEALTH 350.1.13.10 it y of [place] 4.2.7.2.686 Price as TRACE?BLEA [id number] [address] OFFICE [facility] 2022-05-31 2022-05-31 Telephone [facility] 1.2.366.404 5156 4257 Univers 00:00:00 00:00:00 Angelina A HEALTH 350.1.13.10 i ty of [place] 4.2.7.2.686 Price as TRACE?BLEA 364.1527237 [address] OFFICE [facility] 2022-05-20 2022-05-20 Refill Damian [facility] 1.2.840.114 [id number] Univers 00:00:00 00:00:00 Sancho [place] 350.1.13.10 ity of [place].2.7.2.[place] 602.3203192 Wa dical NAL 059 [facility] 2022-05-19 2022-05-19 Telephone Yvonne Feliz [facility] 1.2.840.114 [id number] Univers 00:00:00 00:00:00 Winsons SPECIALTY 350.1.13.10 ity of CARE 4.2.7.2.686 [place] CENTER AT 438.5396701 Wa dicclay VICTORY 072 [facility] 2022-05-19 2022-05-19 Refill [facility] 1.2.840.114 [id number] Univers 00:00:00 00:00:00 Angelina A HEALTH 350.1.13.10 i ty of [place] T 4.2.7.2.686 Price as TRACE?BLEA 074.7461737 Wa dawn PARKER [address] [place] [address] MEDICAL OFFICE BUILDING 2022-05-17 2022-05-17 Refmarkos Dick[facility]PLA[facility] 1.2.840.114 [id number] Univers 00:00:00 00:00:00 Jina MULTISPEC 350.1.13.10 ity of I[place] 4.2.7.2.686 [place] CENTER 503.4878740 [facility] AND [address] [facility] 2022-05-16 2022-05-16 Refill [facility]PLA[facility] 1.2.840.114 [id number] Univers 00:00:00 00:00:00 Satinder HEALTH 350.1.13.10 it y of Henrik LIVE 4.2.7.2.686 Price as TRACE?BLEA 669.0927916 [facility] MATHIAS[address] MEDICAL OFFICE [facility] 2022-05-10 2022-05-10 Refill [facility] 1.2.840.114 [id number] Univers 00:00:00 00:00:00 Jina [place] 350.1.13.10 ity of [facility] 4.2.7.2.686 [place] [facility] [phone] Wa dawn STEWART [address] [place] [address] 2022-05-10 2022-05-10 Refmarkos YorkPLA[facility] 1.2.840.114 [id number] Univers 00:00:00 00:00:00 Angelina A HEALTH 350.1.13.10 i ty of [place] 4.2.7.2.686 Price as TRACE?BLEA 127.0395416 Wa dawn PARKER [address] [place] [address] MEDICAL OFFICE [facility] 2022-05-06 2022-05-06 Telephone Yvonne Feliz [facility] 1.2.840.114 [id number] Univers 00:00:00 00:00:00 [place] SPECIALTY 350.1.13.10 ity [place]2.[place] [phone] [place] dawn QUINTEROS [address] [place] [address] 2022-05-05 2022-05-05 [facility] 1.2.840.114 [id number] Univers 00:00:00 00:00:00 Eleni A HEALTH 350.1.13.10 it [place] [phone] [address] OFFICE [facility] 2022-05-04 2022-05-04 Kevin Hunter [facility] 1.2.840.114 [id number] Univers 00:00:00 00:00:00 Wondiful A HEALTH 350.1.13.10 ity of [place] 4.2.7.2.686 Price as TRACE?BLEA [id number] [address] OFFICE [facility] 2022-05-04 2022-05-04 Kevin Calhoun [facility] 1.2.840.114 [id number] Univers 00:00:00 00:00:00 Satinder HEALTH 350.1.13.10 it y of Edward [place] 4.2.7.2.686 Price as TRACE?BLEA [id number] [address] OFFICE [facility] 2022-05-04 2022-05-04 [facility] 1.2.840.114 [id number] Univers 00:00:00 00:00:00 Eleni A [place] 350.1.13.10 i ty of [facility] 4.2.7.2.[place] [phone] [address] 2022-04-21 2022-04-21 Patient Doctor ERMA 1.2.840.114 [id number] Univers 00:00:00 00:00:00 Secure Msg Unassigned, LAXMI 350.1.13.10 ity of [place] [facility] 4.2.7.2.686 Price as [id number] [address] 2022-04-19 2022-04-19 Outpatient R YVONNE FELIZ [facility] [id number] Univers 14:00:00 14:00:00 ity of [facility] 2022-04-12 2022-04-12 Kevin Thao [facility] 1.2.840.114 [id number] Univers 00:00:00 00:00:00 Shell HEALTH 350.1.13.10 it y of [place] 4.2.7.2.686 Price as TRACE?BLEA [phone] [address] MEDICAL OFFICE [facility] 2022-04-11 2022-04-11 Patient Fleming, [facility] 1.2.840.114 [id number] Univers 00:00:00 00:00:00 Secure Msg Radha M HEALTH 350.1.13.10 ity of [place] 4.2.7.2.686 Price as TRACE?BLEA [id number] [address] OFFICE [facility] 2022-04-11 2022-04-11 Patient Chela, [facility] 1.2.840.114 [id number] Univers 00:00:00 00:00:00 Secure Msg Angelina A HEALTH 350.1.13.10 ity of [place] 4.2.7.2.686 Price as TRACE?BLEA [phone] [address] OFFICE [facility] 2022-04-08 2022-04-08 Ref[facility]os [facility] 1.2.840.114 [id number] Univers 00:00:00 00:00:00 Wondiful A HEALTH 350.1.13.10 ity of [place] 4.2.7.2.686 Price as TRACE?BLEA [id number] [address] OFFICE [facility] 2022-03-24 2022-03-24 Kevin [facility] 1.2.840.114 [id number] Univers 00:00:00 00:00:00 Wondiful A HEALTH 350.1.13.10 ity of [place] 4.2.7.2.686 Price as TRACE?BLEA [id number] [address] OFFICE [facility] 2022-03-18 2022-03-18 Kevin [facility] 1.2.840.114 [id number] Univers 00:00:00 00:00:00 Angelina A HEALTH 350.1.13.10 i ty of [place] 4.2.7.2.686 Price as TRACE?BLEA [id number] [address] OFFICE [facility] 2022-03-15 2022-03-15 Patient Lonnie [facility] 1.2.840.114 [id number] Univers 00:00:00 00:00:00 Secure Msg Radha M HEALTH 350.1.13.10 ity of [place] 4.2.7.2.686 Price as TRACE?BLEA [phone] [address] OFFICE [facility] 2022-03-14 2022-03-14 Patient Doctor [facility] 1.2.840.114 [id number] Univers 00:00:00 00:00:00 Secure Msg Unassigned, HEALTH 350.1.13.10 ity of [employer] 4.2.7.2.686 Price as TRACE?BLEA [id number] [address] OFFICE [facility] 2022-03-11 2022-03-11 Patient Doctor ERMA 1.2.840.114 [id number] Univers 00:00:00 00:00:00 Secure Msg Unassigned, LAXMI 350.1.13.10 ity of [facility] [facility] 4.2.7.2.686 Price as [phone] [address] 2022-03-10 2022-03-10 Patient Chela [facility] 1.2.840.114 [id number] Univers 00:00:00 00:00:00 Secure Msg Angelina A HEALTH 350.1.13.10 ity of [place] 4.2.7.2.686 Price as TRACE?BLEA [phone] [address] OFFICE [facility] 2022-03-04 2022-03-04 Bar Pointer Lab, Ang - Db [facility] 1.2.840.1 14 [id number] Univers 13:30:00 13:45:00 Visit Shell Thao HEALTH 350.1.13.10 ity of [place] 4.2.7.2.686 Price as TRACE?BLEA [phone] [address] OFFICE [facility] 2022-03-04 2022-03-04 Outpatient R CHELA [facility] [id number] Univers 13:00:00 13:36:26 ANGELINA ity of [facility] 2022-03-04 2022-03-04 [facility] 1.2.840.114 [id number] Univers 13:00:00 13:36:26 Visit Angelina A HEALTH 350.1.13.10 i ty of [place] 4.2.7.2.686 Price as TRACE?BLEA [phone] [address] OFFICE [facility] 2022-03-04 2022-03-04 [facility]ill [facility] 1.2.840.114 [id number] Univers 00:00:00 00:00:00 Satinder HEALTH 350.1.13.10 it y of [place] 4.2.7.2.686 Price as TRACE?BLEA [phone] [address] 2022-03-03 2022-03-03 Telephone [facility] 1.2.840.114 [id number] Univers 00:00:00 00:00:00 Straemeka T [facility] 350.1.13.10 ity of [place] [phone] [facility] 085 [facility] 2022-03-02 2022-03-02 Patient Doctor ERMA 1.2.840.114 [id number] Univers 00:00:00 00:00:00 Secure Msg Unassigned, LAXMI 350.1.13.10 ity of [place] [facility] 4.2.7.2.686 Price as [id number] [address] 2022-02-28 2022-02-28 [facility]ill [facility] 1.2.840.114 [id number] Univers 00:00:00 00:00:00 Wondiful A HEALTH 350.1.13.10 ity of [place] 4.2.7.2.686 Price as TRACE?BLEA [id number] [address] OFFICE [facility] 2022-02-28 2022-02-28 Refmarkos [facility] 1.2.840.114 [id number] Univers 00:00:00 00:00:00 Wondiful A HEALTH 350.1.13.10 ity of [place] 4.2.7.2.686 Price as TRACE?BLEA [phone] [address] OFFICE [facility] 2022-02-28 2022-02-28 Telephone Brigitte [facility] 1.2.087.318 [id number] Univers 00:00:00 00:00:00 Eleni A HEALTH 350.1.13.10 it y of [place].2.[place] [phone] [address] OFFICE [facility] 2022-02-28 2022-02-28 Refill [facility] 1.2.840.114 [id number] Univers 00:00:00 00:00:00 Eleni A [place] 350.1.13.10 i ty of [place].2.[place].2.[place] [phone] [address] 2022-02-28 2022-02-28 [facility] 1.2.840.114 [id number] Univers 00:00:00 00:00:00 Qiangjun [place] 350.1.13.10 ity [facility] 4.2.7.2.[place] [phone] [address] 2022-02-27 2022-02-27 Refmarkos Hunter [facility] 1.2.840.114 [id number] Univers 00:00:00 00:00:00 Wondiful A HEALTH 350.1.13.10 ity of [facility] 4.2.7.2.686 Price as TRACE?BLEA [phone] [address] OFFICE [facility] 2022-02-22 2022-02-22 Office [facility] 1.2.840.114 [id number] Univers 14:30:00 15:00:00 Visit Eleni A HEALTH 350.1.13.10 it y of [place] 4[place]2.7.2.[place] [phone] [address] OFFICE [facility] 2022-02-22 2022-02-22 Outpatient R BRIGITTE [facility] [id number] Univers 14:30:00 14:30:00 ELENI ity of [facility] 2022-02-18 2022-02-18 Telephone [facility] 1.2.077.677 [id number] Univers 00:00:00 00:00:00 Eleni A HEALTH 350.1.13.10 it y of [place].2.[place] [id number] [address] OFFICE [facility] 2022-02-08 2022-02-08 Telephone [facility] 1.2.227.080 [id number] Univers 00:00:00 00:00:00 Qiangjun [place] 350.1.13.10 ity of [place].2.7.2.[place] [phone] [address] 2022-01-28 2022-01-28 Refill [facility] 1.2.840.114 [id number] Univers 00:00:00 00:00:00 Sancho [place] 350.1.13.10 ity of [place] 4.2.7.2.[place] [id number] [address] 2022-01-26 2022-01-26 Refmarkos [facility]PLA[facility] 1.2.840.114 [id number] 342 Univers 00:00:00 00:00:00 Wondiful A HEALTH 350.1.13.10 ity of [place] 4.2.7.2.686 Price as TRACE?BLEA [id number] Wa ser[address] OFFICE [facility] 2022-01-05 2022-01-06 Outpatient X SHANE [facility] SUNNY [id number] Univers 00:38:00 19:15:00 JACOB ity of [facility] 2022-01-05 2022-01-06 Emergency Jenna French [facility] 1.2. 840.114 [id number] Univers 00:38:00 19:15:00 Jacob Lynn 350.1.13.10 ity of [facility] 4.2.7.2.[place] [phone] [facility] [address] [place] [address] 2022-01-04 2022-01-04 Refmarkos Hunter MIMB 1.2.840.114 [id number] Univers 00:00:00 00:00:00 Wondiful A HEALTH 350.1.13.10 ity of [place] 4.2.7.2.686 Price as PROFESSIO [phone] [facility] 044 [facility] ONE 2021-12-29 2021-12-29 [facility] 1.2.840.114 [id number] [id number] Univers 00:00:00 00:00:00 Wondiful A HEALTH 350.1.13.10 ity of [place] 4.2.7.2.686 Price as TRACE?BLEA [phone] [facility] KEITH 044 [facility] 2021-12-29 2021-12-29 Telephone [facility] 1.2.840.114 [id number] Univers 00:00:00 00:00:00 Mercedes MARIA T 350.1.13.10 i ty of [facility] 4.2.7.2.[place] [phone] [facility] 188 [facility] 2021-11-30 2021-11-30 [facility] 1.2.840.114 [id number] Univers 00:00:00 00:00:00 Wondiful A HEALTH 350.1.13.10 ity of [facility] 4.2.7.2.686 Price as PROFESSIO [phone] [address] ONE 2021-11-26 2021-11-26 Outpatient R CHANDRA GARCIA [facility] [id number] Univers 14:15:00 14:15:00 ity of [facility] 2021-11-25 2021-11-25 Telephone [facility] 1..017.956 [id number] Univers 00:00:00 00:00:00 Rox A MARIA T 350.1.13.10 ity of [facility] 4.2.7.2.[place] [id number] [facility] 204 [facility] 2021-11-24 2021-11-24 Kevin [facility] 1.2.840.114 [id number] Univers 00:00:00 00:00:00 Wondiful A HEALTH 350.1.13.10 ity of [facility] 4.2.7.2.686 Price as PROFESSIO [phone] Wa dical NAL [address] [place] OFFICE BUILDING ONE 2021-11-13 2021-11-13 Patient Doctor ERMA 1.2.840.114 [id number] Univers 00:00:00 00:00:00 Secure Msg Unassigned, LAXMI 350.1.13.10 ity of [place] [facility] 4.2.7.2.686 Price as [phone] [facility] [address] 2021-11-11 2021-11-11 Patient [facility], [facility] 1.2.840.114 [id number] Univers 00:00:00 00:00:00 Secure Msg Sancho [facility] 350.1.13.10 ity of [place] 4.2.7.2.[place] [id number] Wa dical NAL 059 [facility] 2021-11-10 2021-11-10 Refill [facility] 1.2.840.114 [id number] Univers 00:00:00 00:00:00 Wondiful A PRIMARY 350.1.13.10 ity of [place].2.[place] [id number] [facility] [address] [place] 2021-11-09 2021-11-09 Hospital Chandra Garcia [facility] 1.2.840.114 [id number] Univers 18:00:00 23:59:00 Encounter ANGLEJARROD 350.1.13.10 ity of [facility] 4.2.7.2.[place] [phone] [facility] [address] [place] 2021-11-09 2021-11-09 Outpatient R DALE [facility] [id number] Univers 16:00:00 16:49:28 WONDIFUL ity o f [facility] 2021-11-09 2021-11-09 Office Dale [facility] 1.2.840.114 [id number] Univers 16:00:00 16:49:28 Visit Wondiful A HEALTH 350.1.13.10 ity of [facility] 4.2.7.2.686 Price as TRACE?BLEA [phone] [address] OFFICE [facility] 2021-11-09 2021-11-09 Outpatient R DALE [facility] [id number] Univers 16:00:00 16:49:28 WONDIFUL ity o f [facility] 2021-11-09 2021-11-09 Outpatient R DALE, [facility] [id number] Univers 16:00:00 16:00:00 WONDIFUL ity o f [facility] 2021-11-09 2021-11-09 Patient [facility] 1.2.840.114 [id number] Univers 00:00:00 00:00:00 Secure Msg Wondiful A HEALTH 350.1.13.10 ity of [place] 4.2.7.2.686 Price as TRACE?BLEA [phone] [address] 2021-11-09 2021-11-09 Patient Dale [facility] 1.2.840.114 [id number] Univers 00:00:00 00:00:00 Secure Msg Wondiful A HEALTH 350.1.13.10 ity of [place] 4.2.7.2.686 Price as TRACE?BLEA [id number] [address] 2021-11-09 2021-11-09 Orders Doctor RITCHIE 1.2.840.114 [id number] Univers 00:00:00 00:00:00 Only Unassigned, LAXMI 350.1.13.10 ity of [place] [facility] 4.2.7.2.686 Price as [phone] [address] 2021-11-03 2021-11-03 Refill Dale [facility] 1.2.840.114 [id number] Univers 00:00:00 00:00:00 Wondiful A HEALTH 350.1.13.10 ity of [place] 4.2.7.2.686 Price as PROFESSIO [phone] [address] OFFICE [facility] ONE 2021-11-01 2021-11-01 Refmarkos Salgado MIVENITA 1.2.840.114 [id number] Univers 00:00:00 00:00:00 Qiangjun [place] 350.1.13.10 ity of [place].2.[place] [id number] Wa dical NAL 059 [facility] 2021-11-01 2021-11-01 Refill [facility] 1.2.840.114 [id number] Univers 00:00:00 00:00:00 Qiangjun [place] 350.1.13.10 ity of [place] 4.2.7.2.[place] [phone] Wa dical NAL 059 [facility] 2021-10-28 2021-10-28 Refill [facility] 1.2.840.114 [id number] Univers 00:00:00 00:00:00 Wondiful A HEALTH 350.1.13.10 ity of [place] 4.2.7.2.686 Price as PROFESSIO [phone] [facility] [address] [place] OFFICE [facility] ONE 2021-10-22 2021-10-22 Telephone [facility] 1.2.188.679 [id number] Univers 00:00:00 00:00:00 Rox A [place] 350.1.13.10 ity of [facility] 4.2.7.2.[place] [phone] Wa dical NAL 188 [facility] 2021-10-20 2021-10-20 Patient Dale [facility] 1.2.840.114 [id number] Univers 00:00:00 00:00:00 Secure Msg Wondiful A HEALTH 350.1.13.10 ity of [place] 4.2.7.2.686 Price as TRACE?BLEA [id number] Wa dical KNEY 044 [facility] OFFICE [facility] 2021-10-20 2021-10-20 [facility] 1.2.840.114 [id number] Univers 00:00:00 00:00:00 Qiangjun [place] 350.1.13.10 ity of [place] 4.2.7.2.[place] [phone] Wa dical NAL 059 [facility] 2021-10-16 2021-10-16 Refill [facility] 1.2.840.114 [id number] Univers 00:00:00 00:00:00 Wondiful A HEALTH 350.1.13.10 ity of [place] 4.2.7.2.686 Price as PROFESSIO [id number] [facility] 044 [facility] ONE 2021-10-15 2021-10-15 Telephone [facility] 1.2.960.313 [id number] [id number] Univers 00:00:00 00:00:00 Rox A [place] 350.1.13.10 ity of [facility] 4.2.7.2.[place] [phone] [facility] 204 [facility] 2021-10-08 2021-10-08 Telephone LÁZARO Briggs 1..840.114 90 [id number] Univers 00:00:00 00:00:00 Eleni A Y HEALTH 350.1.13.10 i ty of [employer] 4.2.7.2.686 [place] [id number] [address] 2021-10-05 2021-10-05 Outpatient R BRYAN [facility] [id number] Univers 15:30:00 15:30:00 WENTONG ity of [facility] 2021-10-04 2021-10-04 Patient [facility] 1.2.840.114 [id number] Univers 00:00:00 00:00:00 Secure Msg Wondiful A HEALTH 350.1.13.10 ity of [place] 4.2.7.2.686 Price as TRACE?BLEA [phone] [address] OFFICE [facility] 2021-10-04 2021-10-04 Patient [facility] 1.2.840.114 [id number] Univers 00:00:00 00:00:00 Secure Msg Wondiful A HEALTH 350.1.13.10 ity of [place] 4.2.7.2.686 Price as TRACE?BLEA [id number] [address] 2021-09-24 2021-09-24 Refill [facility] 1.2.840.114 [id number] Univers 00:00:00 00:00:00 Wondiful A HEALTH 350.1.13.10 ity of [place] 4.2.7.2.686 Price as PROFESSIO [id number] Wa dical NAL 044 [facility] ONE 2021-09-20 2021-09-20 Kevin Dale [facility] 1.2.840.114 [id number] Univers 00:00:00 00:00:00 Wondiful A HEALTH 350.1.13.10 ity of [facility] 4.2.7.2.686 Price as PROFESSIO [phone] Wa dical NAL [address] [facility] 2021-09-20 2021-09-20 Kevin Damian [facility] 1.2.840.114 [id number] Univers 00:00:00 00:00:00 Qiabelen [place] 350.1.13.10 ity of [place].2.7.2.[place] [phone] Wa dicny NAL 059 [facility] 2021-09-10 2021-09-10 Outpatient R JOSE CHANDRA [facility] [id number] Univers 15:00:00 15:00:00 ity of [facility] 2021-09-08 2021-09-08 Outpatient R JOSEFABIOLAN [facility] [id number] Univers 00:00:00 00:00:00 ity of [facility] 2021-09-08 2021-09-08 Outpatient R JOSE CHANDRA [facility] [id number] Univers 00:00:00 00:00:00 ity of [facility] 2021-09-08 2021-09-08 Orders Doctor ERMA 1.2.840.114 [id number] Univers 00:00:00 00:00:00 Only Unassigned, LAXMI 350.1.13.10 ity of [place] [facility] 4.2.7.2.686 Price as [phone] [address] 2021-09-07 2021-09-07 Prep For [facility] 1.2.840.114 [id number] Univers 00:00:00 00:00:00 Surgery Rox A [place] 350.1.13.10 ity of [facility] 4.2.7[place]2.[place] [phone] Wa dical NAL 204 [facility] 2021-09-07 2021-09-07 Refill [facility] 1.2.840.114 [id number] Univers 00:00:00 00:00:00 Wondiful A HEALTH 350.1.13.10 ity of [place] 4.2.7.2.686 Price as TRACE?BLEA [id number] Wa dical KNEY 044 [facility] OFFICE [facility] 2021-09-02 2021-09-02 Office [facility] 1.2.760.122 [id number] Univers 14:32:11 15:18:27 Visit Mercedes MARIA T 350.1.13.10 i ty of [facility] 4.2.7.2.[place] [phone] Wa dicclay NAL 188 [facility] 2021-09-02 2021-09-02 Outpatient R CAPO [facility] [id number] Univers 14:00:00 15:18:27 MERCEDES [facility] 2021-09-02 2021-09-02 Outpatient R CAPO [facility] [id number] Univers 14:00:00 14:00:00 MERCEDES [facility] 2021-08-25 2021-08-25 Telemedici [facility] 1.2.840.114 [id number] Univers 10:15:56 10:35:56 ne Visit Raquel LIVE 350.1.13.10 ity of [facility] 4.2.7.2.[place] [phone] Wa dicclay NAL 085 [facility] 2021-08-25 2021-08-25 Outpatient R RAQUEL NOLAN [facility] [id number] Univers 10:20:00 10:20:00 RAQUEL NOLAN [facility] 2021-08-13 2021-08-13 Patient [facility] 1.2.840.114 [id number] Univers 00:00:00 00:00:00 Secure Msg Wondiful A HEALTH 350.1.13.10 ity of [place] 4.2.7.2.686 Price as TRACE?BLEA [phone] Wa dawn PARKER [address] [place] MEDICAL OFFICE BUILDING 2021-08-12 2021-08-12 Outpatient R CHANDRA GARCIA [facility] [id number] Univers 16:00:00 16:54:38 ity of [facility] 2021-08-12 2021-08-12 Outpatient R CHANDRA GARCIA [facility] [id number] Univers 16:00:00 16:54:38 ity of [facility] 2021-08-12 2021-08-12 Office Jose [facility] 1.2.840.114 [id number] Univers 15:41:02 16:54:38 Visit ALIZA 350.1.13.10 it y of [facility] [id number] [address] 2021-08-12 2021-08-12 Outpatient R CHANDRA GARCIA [facility] [id number] Univers 16:00:00 16:00:00 ity of [facility] 2021-08-11 2021-08-11 Orders Doctor ERMA 1.2.840.114 [id number] Univers 00:00:00 00:00:00 Only Unassigned, LAXMI 350.1.13.10 ity of [place] [facility] 4.2.7.2.686 Price as [id number] [address] 2021-08-11 2021-08-11 Telephone Dale [facility] 1.2.840.114 [id number] Univers 00:00:00 00:00:00 Wondiful A HEALTH 350.1.13.10 ity of [facility] 4.2.7.2.686 Price as TRACE?BLEA [phone] Wa dawn PARKER [address] [place] [address] MEDICAL OFFICE BUILDING 2021-08-11 2021-08-11 Patient Dale [facility] 1.2.840.114 [id number] Univers 00:00:00 00:00:00 Secure Msg Wondiful A HEALTH 350.1.13.10 ity of [facility] 4.2.7.2.686 Price as TRACE?BLEA [phone] Wa dawn PARKER 044 [facility] OFFICE [facility] 2021-08-11 2021-08-11 Patient Dale [facility] 1.2.840.114 [id number] Univers 00:00:00 00:00:00 Secure Msg Wondiful A HEALTH 350.1.13.10 ity of [place] 4.2.7.2.686 Price as TRACE?BLEA [phone] Wa dawn PARKER 044 [facility] OFFICE [facility] 2021-08-11 2021-08-11 Telephone [facility] 1.2.840.114 [id number] Univers 00:00:00 00:00:00 Wondiful A HEALTH 350.1.13.10 ity of [place] 4.2.7.2.686 Price as TRACE?BLEA [phone] Wa dawn PARKER [address] [place] [address] OFFICE [facility] 2021-08-11 2021-08-11 Telephone [facility] 1.2.840.114 [id number] Univers 00:00:00 00:00:00 Wondiful A HEALTH 350.1.13.10 ity of [place] 4.2.7.2.686 Price as TRACE?BLEA [phone] Wa dawn PARKER [address] [place] [address] 2021-08-10 2021-08-10 Outpatient R DALE [facility] [id number] Univers 12:00:00 12:00:00 WONDIFUL ity o f [facility] 2021-08-10 2021-08-10 Bar [facility], Ang - [facility] 1.2.840.1 14 [id number] Univers 11:41:25 11:56:25 Visit Bassam Huntermary A HEALTH 350.1.13.1 0 ity of [place] 4.2.7.2.686 Price as TRACE?BLEA [phone] Wa dawn PARKER 353 [facility] OFFICE [facility] 2021-08-10 2021-08-10 Telephone [facility] 1.2.840.114 [id number] Univers 00:00:00 00:00:00 Wondiful A HEALTH 350.1.13.10 ity of [place] 4.2.7.2.686 Price as TRACE?BLEA [phone] [address] MEDICAL OFFICE [facility] 2021-08-09 2021-08-09 Telephone IGGY Hunter 1.2.840.114 [id number] Univers 00:00:00 00:00:00 Wondiful A HEALTH 350.1.13.10 ity of [place] 4.2.7.2.686 Price as TRACE?BLEA [phone] [address] MEDICAL OFFICE [facility] 2021-08-06 2021-08-06 Patient Doctor ERMA 1.2.840.114 [id number] Univers 00:00:00 00:00:00 Secure Msg Unassigned, LAXMI 350.1.13.10 ity of [place] [facility] 4.2.7.2.686 Price as [phone] [facility] [address] [place] 2021-08-05 2021-08-05 Pre Visit MOHINI [facility]cd[place] 1.2.262.864 [id number] Univers 00:00:00 00:00:00 Outreach Maryuri RON 350.1.13.10 i ty of [place]2.7.2.[place] [phone] [facility] [address] [place] 2021-08-04 2021-08-04 Patient Dale MIVENITA 1.2.840.114 [id number] Univers 00:00:00 00:00:00 Secure Msg Wondiful A HEALTH 350.1.13.10 ity of [place] 4.2.7.2.686 Price as TRACE?BLEA [phone] [address] OFFICE [facility] 2021-07-31 2021-07-31 Case Dale [facility] 1.2.840.114 [id number] Univers 00:00:00 00:00:00 Management Wondiful [facility] 350.1.13.10 ity of [place] 4.2.7.2.686 Price as TRACE?BLEA [phone] [address] OFFICE [facility] 2021-07-31 2021-07-31 Case Dale [facility] 1.2.840.114 [id number] Univers 00:00:00 00:00:00 Management Wondiful [facility] 350.1.13.10 ity of [place] 4.2.7.2.686 Price as TRACE?BLEA [phone] [facility] 044 [facility] OFFICE [facility] 2021-07-30 2021-07-30 Bar [facility], Ang - Db [facility] 1.2.840.1 [id number] Univers 09:10:19 09:38:14 Visit Torrey Hunter [facility] 350.1.13.1 0 ity of [place] 4.2.7.2.686 Price as TRACE?BLEA [phone] [facility] STEW 353 [facility] OFFICE [facility] 2021-07-30 2021-07-30 Outpatient R DALE [facility] [id number] Univers 09:00:00 09:00:00 WONDIFUL ity o f [facility] 2021-07-30 2021-07-30 [facility] 1..840.114 [id number] Univers 00:00:00 00:00:00 Wondiful A [facility] 350.1.13.10 ity of [place] 4.2.7.2.686 Price as TRACE?BLEA [phone] [address] OFFICE [facility] 2021-07-29 2021-07-29 Outpatient R DALE [facility] [id number] Univers 16:15:00 16:59:16 WONDIFUL ity o f [facility] 2021-07-29 2021-07-29 [facility] 1.2.840.114 [id number] Univers 15:05:21 16:59:16 Visit Wondiful [facility] 350.1.13.10 ity of [place] 4.2.7.2.686 Price as TRACE?BLEA [phone] [address] OFFICE [facility] 2021-07-29 2021-07-29 Outpatient R DALE [facility] [id number] Univers 16:15:00 16:15:00 WONDIFUL ity o f [facility] 2021-07-26 2021-07-26 [facility]phone [facility] ..840.114 [id number] Univers 00:00:00 00:00:00 Wondiful [facility] 350.1.13.10 ity of [place] 4.2.7.2.686 Price as TRACE?BLEA [phone] [place] dawn PARKER [address] [place] MEDICAL OFFICE [facility] 2021-07-19 2021-07-19 Telephone Adams, [facility] 1.2.147.820 [id number] Univers 00:00:00 00:00:00 [facility] 350.1.13.10 it y of [place] 4.2.7.2.686 Price as Trace?Blea [phone] [place] dawn parker 220 [facility] Office [facility] 2021-07-19 2021-07-19 Telephone [place], [facility] [place] [facility] 1.2.042.354 [id number] Univers 00:00:00 00:00:00 [place] HEALTH 350.1.13.10 it y of [place] 4.2.7.2.686 Price as TRACE?BLEA [phone] Wa dawn PARKER 220 [facility] OFFICE [facility] 2021-07-08 2021-07-09 Emergency [facility] 1.2.840.114 [id number] Univers 22:52:00 01:43:00 Dasia Live 350.1.13.10 i ty of [place].2.[place] [phone] [facility] 084 [place] 2021-07-08 2021-07-09 Emergency X [facility] ERT [id number] Univers 22:52:00 01:43:00 DASIA ity of [facility] 2021-07-08 2021-07-08 Orders Doctor ERMA 1.2.840.114 [id number] Univers 00:00:00 00:00:00 Only Unassigned, LAXMI 350.1.13.10 ity of [place] [facility] 4.2.7.2.686 Price as [phone] [facility] 009 [place] 2021-06-25 2021-06-25 Outpatient Uyen HUNTER [facility] [id number] Univers 12:00:00 12:00:00 WONDIFUL ity o f [facility] 2021-06-25 2021-06-25 Coco Hunter [facility] 1.2.840.114 [id number] Univers 00:00:00 00:00:00 Wondiful A Health 350.1.13.10 ity of [place] 4.2.7.2.686 Price as Trace?Blea [phone] [address] Medical Office Building 2021-06-21 2021-06-21 Orders Doctor ERMA 1.2.840.114 [id number] Univers 00:00:00 00:00:00 Only Unassigned, LAXMI 350.1.13.10 ity of [place] [facility] 4.2.7.2.686 Price as [phone] [address] 2021-05-26 2021-05-26 Refmarkos Hunter [facility] 1.2.840.114 [id number] Univers 00:00:00 00:00:00 Wondiful A Health 350.1.13.10 ity of [place] 4.2.7.2.686 Price as Professio [phone] [address] Office [facility] One 2021-05-24 2021-05-24 Refmarkos Hunter [facility] 1.2.840.114 [id number] Univers 00:00:00 00:00:00 Wondiful A Health 350.1.13.10 ity of [place] 4.2.7.2.686 Price as Professio [phone] [address] Office [facility] One 2021-05-20 2021-05-20 Refmarkos Hunter [facility] 1.2.840.114 [id number] Univers 00:00:00 00:00:00 Wondiful A Health 350.1.13.10 ity of [place] 4.2.7.2.686 Price as Professio [phone] [address] Office Building One 2021-05-06 2021-05-06 Patient Doctor [facility] 1.2.840.114 [id number] Univers 00:00:00 00:00:00 Secure Msg Unassigned, SPECIALTY 350.1.13.10 ity of [place] CARE [place].2.[place] C[place] AT [phone] Wa dawn QUINTEROS 072 [facility] 2021-05-06 2021-05-06 Telephone Dale [facility] 1.2.840.114 [id number] Univers 00:00:00 00:00:00 Wondiful A Health 350.1.13.10 ity of [place] 4.2.7.2.686 Price as Professio [phone] Wa dicny nal 044 [place] Office Building One 2021-05-04 2021-05-04 Patient Doctor ERMA 1.2.840.114 [id number] Univers 00:00:00 00:00:00 Secure Msg Unassigned, LAXMI 350.1.13.10 ity of [place] [facility] 4.2.7.2.686 Price as [phone] [address] 2021-05-03 2021-05-03 Case Dale [facility] 1.2.840.114 [id number] Univers 00:00:00 00:00:00 Management Wondiful A Health 350.1.13.10 ity of [place] 4.2.7.2.686 Price as Professio [phone] Wa sergeyny nal 044 [place] Office [facility] One 2021-05-03 2021-05-03 Telephone Dale [facility] 1.2.840.114 [id number] Univers 00:00:00 00:00:00 Wondiful A Health 350.1.13.10 ity of [place] 4.2.7.2.686 Price as Professio [phone] [address] Office [facility] One 2021-05-03 2021-05-03 Telephone Damian [facility] 1.2.240.229 [id number] Univers 00:00:00 00:00:00 Qiangjun Health 350.1.13.10 i ty of [place].2.[place] [phone] [facility] 059 [place] Office Building 2021-04-30 2021-04-30 Patient Brigitte [facility] 1.2.840.114 [id number] Univers 00:00:00 00:00:00 Secure Msg Eleni A HEALTH 350.1.13.10 ity of [place].2.[place] [phone] [facility] [address] OFFICE BUILDING 2021-04-29 2021-04-29 Bar Pointer Lab, Magdalena Fam Pob I [facility] 1.2. 840.114 [id number] Univers 11:47:44 12:12:26 Visit Oneida, Torrey A Health 350.1.13.1 0 ity of [place] 4.2.7.2.686 Price as Professio [phone] [address] Office Building One 2021-04-29 2021-04-29 Office [facility] 1.2.840.114 [id number] Univers 11:16:14 12:11:36 Visit Wondiful A Health 350.1.13.10 ity of [place] 4.2.7.2.686 Price as Professio [phone] [address] One 2021-04-29 2021-04-29 Outpatient R DALE [facility] [id number] Univers 11:00:00 11:00:00 WONDIFUL ity o f [facility] 2021-04-29 2021-04-29 Telephone [facility] 1.2.840.114 [id number] Univers 00:00:00 00:00:00 Wondiful A Health 350.1.13.10 ity of [place] 4.2.7.2.686 Price as Professio [phone] [address] Office [facility] One 2021-04-29 2021-04-29 Refill [facility] 1.2.840.114 [id number] Univers 00:00:00 00:00:00 Wondiful A Health 350.1.13.10 ity of [place] 4.2.7.2.686 Price as Professio [phone] [address] Office Building One 2021-04-29 2021-04-29 Patient Brigitte [facility] 1.2.840.114 [id number] Univers 00:00:00 00:00:00 Secure Msg Eleni A Health 350.1.13.10 ity of [place] [phone] [address] Office [facility] 2021-04-27 2021-04-27 Outpatient R BRIGITTE [facility] [id number] Univers 15:00:00 15:00:00 ELENI ity of [facility] 2021-04-27 2021-04-27 Office [facility] 1.2.840.114 [id number] Univers 14:28:01 14:58:01 Visit Eleni A Health 350.1.13.10 it y of [place]2.[place] [phone] [address] Office [facility] 2021-04-24 2021-04-24 Refmarkos [facility] 1.2.840.114 [id number] Univers 00:00:00 00:00:00 Wondiful A Health 350.1.13.10 ity of [place] 4.2.7.2.686 Price as Professio [phone] [address] 2021-04-22 2021-04-22 Refmarkos [facility] 1.2.840.114 [id number] Univers 00:00:00 00:00:00 Wondiful A Health 350.1.13.10 ity of [place] 4.2.7.2.686 Price as Professio [phone] [address] One 2021-04-22 2021-04-22 Telephone [facility] 1.2.389.554 [id number] Univers 00:00:00 00:00:00 Qiangjun [place] 350.1.13.10 ity of [place].2.[place] Profess[place] [phone] Wa dicny nal [address] [place] [address] 2021-04-21 2021-04-21 Telephone [facility] 1.2.718.878 [id number] Univers 00:00:00 00:00:00 Qiangjun [place] 350.1.13.10 ity of [place].2.[place] Profess[place] [phone] [address] 2021-04-13 2021-04-13 Refmarkos Hunter MIVENITA 1.2.840.114 [id number] Univers 00:00:00 00:00:00 Wondiful A Health 350.1.13.10 ity of [place] 4.2.7.2.686 Price as Professio [phone] [address] Office Building One 2021-03-29 2021-03-29 Patient Doctor MOHINI 1.2.840.114 [id number] Univers 00:00:00 00:00:00 Secure Msg Unassigned, RON 350.1.13.10 ity of [place] [phone] [address] 2021-03-29 2021-03-29 Case Mohini Edwards 1.2.840.114 [id number] Univers 00:00:00 00:00:00 Management Serena Ron 350.1.13.10 ity of [place].2.[place] [phone] [address] 2021-03-29 2021-03-29 Telephone Mohini Edwards 1.2.179.897 [id number] Univers 00:00:00 00:00:00 Serena Ron 350.1.13.10 it y of [place].2.[place] [phone] [address] 2021-03-29 2021-03-29 Telephone Brigitte [facility] 1.2.045.931 [id number] Univers 00:00:00 00:00:00 Eleni A Health 350.1.13.10 it y of [place]2.[place] [phone] [place] 999219 [place] Office Building 2021-03-28 2021-03-28 Refmarkos Hunter [facility] 1.2.840.114 [id number] Univers 00:00:00 00:00:00 Wondiful A Health 350.1.13.10 ity of [place] 4.2.7.2.686 Price as Professio [phone] [address] One 2021-03-23 2021-03-23 Kevin [facility] 1.2.840.114 [id number] Univers 00:00:00 00:00:00 Wondiful A Health 350.1.13.10 ity of [place] 4.2.7.2.686 Price as Professio [phone] [address] 2021-03-06 2021-03-06 Refmarkos [facility] 1.2.840.114 [id number] Univers 00:00:00 00:00:00 Wondiful A Health 350.1.13.10 ity of [place] 4.2.7.2.686 Price as Professio [phone] [address] One 2021-03-01 2021-03-01 Kevin [facility] 1.2.840.114 [id number] Univers 00:00:00 00:00:00 Wondiful A Health 350.1.13.10 ity of [place] 4.2.7.2.686 Price as Professio [phone] [address] 2021-02-15 2021-02-15 Kevin Salgado [facility] 1.2.840.114 [id number] Univers 00:00:00 00:00:00 Sancho [place] 350.1.13.10 ity of [place].2.[place] Profess[place] [phone] [facility] 059 [place] 2021-02-05 2021-02-05 Coco Hunter [facility] 1.2.840.114 [id number] Univers 00:00:00 00:00:00 Wondiful A Health 350.1.13.10 ity of [place] 4.2.7.2.686 Price as Professio [phone] [address] One 2020-12-29 2020-12-29 Outpatient R DAMIAN [facility] [id number] Univers 13:30:00 13:30:00 SANCHO mccray o f [facility] 2020-12-25 2020-12-25 Kevin Hunter [facility] 1.2.840.114 [id number] Univers 00:00:00 00:00:00 Wondiful A Health 350.1.13.10 ity of [place] 4.2.7.2.686 Price as Professio [phone] [facility] nal 044 [place] Office Building One 2020-12-08 2020-12-08 Patient Joe [facility] 1.2.840.114 [id number] Univers 00:00:00 00:00:00 Outreach Rigo PRIMARY 350.1.13.10 i ty of [facility] [place].2.7.2.[place] [facility] [phone] [facility] 388 [place] 2020-12-07 2020-12-07 Telephone Brigitte [facility] 1.2.943.187 [id number] Univers 00:00:00 00:00:00 Eleni A Health 350.1.13.10 it y of [place].7.2.686 [place] [phone] [facility] [address] Office Building 2020-12-02 2020-12-02 Emergency Keyshawn, [facility] 1.2.840.114 [id number] Univers 15:35:00 18:41:00 Angeles Live 350.1.13.10 i ty of [place] 4.2.7.2.686 [place] [phone] [facility] 0[address] [place] 2020-12-02 2020-12-02 Telephone Dale [facility] 1.2.840.114 [id number] Univers 00:00:00 00:00:00 Wondiful A Health 350.1.13.10 ity of [place] 4.2.7.2.686 Price as Professio [phone] [facility] nal 044 [place] Office Building One 2020-12-02 2020-12-02 Letter Maria C Shaw 1.2.840.114 [id number] Univers 00:00:00 00:00:00 (Out) LAXMI 350.1.13.10 it y of HOSPITAL 4.2.7.2.686 Price as [phone] [facility] [address] 2020-11-24 2020-11-24 Emergency Keyshawn, K [facility] 1.2.840.114 [id number] Univers 16:25:00 18:59:00 [place] Live 350.1.13.10 i ty of [place] 4.2.7.2.[place] [phone] [facility] [address] 2020-11-24 2020-11-24 Emergency X Jenn CAIN [facility] ERT [id number] Univers 16:25:00 18:59:00 ity of [facility] 2020-11-24 2020-11-24 [facility]patient [facility] [id number] Univers 14:40:00 14:40:00 SANCHO ity o f [facility] 2020-11-24 2020-11-24 Telephone [facility] 1.2.786.493 [id number] Univers 00:00:00 00:00:00 Sancho Live 350.1.13.10 ity [facility] [place].2.7.2.[place] Profess[place] [phone] [facility] 059 [facility] [facility] 2020-11-13 2020-11-13 [facility] 1.2.840.114 [id number] 00:00:00 00:00:00 Wondiful A Health 350.1.13.10 [place] 4.2.7.2.686 Professio [phone] nal 044 Office [facility] 2020-11-13 2020-11-13 [facility] 1.2.840.114 [id number] Univers 00:00:00 00:00:00 Wondiful A Health 350.1.13.10 ity of [place] 4.2.7.2.686 Price as Professio [phone] [facility] 044 [place] Office [facility] One 2020-11-05 2020-11-05 Outpatient R DAMIAN [facility] [id number] Univers 15:00:00 15:00:00 QIASANDEEPJUN ity o f [facility] 2020-10-29 2020-10-29 Outpatient R DAMIAN [facility] [id number] Univers 14:00:00 14:00:00 QIANGJUN ity o f [facility] 2020-10-21 2020-10-21 Laboratory Pc, [facility] 1.2.840.114 [id number] 15:00:16 15:51:49 Only Echo Room 1 [place] 350.1.13.10 - [place] 4.2.7.2.[address] Professio [phone] 2020-10-21 2020-10-21 Laboratory Pc, [facility] Echo Room 1 - [facility] 1 .2.840.114 [id number] [facility] 15:00:16 15:51:49 Only Brigitte, Eleni A [place] 350.1.13.10 ity of [place].2.[place] Profess[place] [phone] [address] 2020-10-21 2020-10-21 Outpatient R BRIGITTE [facility] [id number] Univers 15:00:00 15:00:00 ELENI ity of [facility] 2020-10-21 2020-10-21 Orders Doctor ERMA 1.2.840.114 [id number] 00:00:00 00:00:00 Only Unassigned, LAXMI 350.1.13.10 [facility] [facility] 4.2.7.2.[phone] [facility] 2020-10-21 2020-10-21 Orders Doctor ERMA 1.2.840.114 [id number] [facility] 00:00:00 00:00:00 Only Unassigned, LAXMI 350.1.13.10 ity of [place] [facility] 4.2.7.2.686 Price as [phone] [address] 2020-10-06 2020-10-06 Office [facility] 1.2.840.114 [id number] 15:30:59 16:00:59 Visit Eleni A Health 350.1.13.10 [place] 4.2.7.2.686 [place] [phone] [address] 2020-10-06 2020-10-06 Office Brigitte [facility] 1.2.840.114 [id number] Univers 15:30:59 16:00:59 Visit Eleni A Health 350.1.13.10 it y of [place]2.7.2.686 [place] [phone] [facility] [address] Office Building 2020-10-06 2020-10-06 Outpatient R BRIGITTE [facility] [id number] Univers 15:30:00 15:30:00 ELENI ity of [facility] 2020-09-21 2020-09-21 Telephone [facility] 1.2.016.288 [id number] Univers 00:00:00 00:00:00 Qiangjun [place] 350.1.13.10 ity of [place].2.[place] Profess[place] [phone] [facility] 059 [facility] 2020-09-15 2020-09-15 Telephone [facility] 1.2.840.114 [id number] Univers 00:00:00 00:00:00 Wondiful A [place] 350.1.13.10 ity of [place].2.[place] Profess[place] [phone] Wa dical [facility] 044 [facility] 2020-09-14 2020-09-14 Telephone [facility] 1.2.840.114 [id number] Univers 00:00:00 00:00:00 Wondiful A Health 350.1.13.10 ity of [place] 4.2.7.2.686 Price as Professio [phone] [facility] 044 [facility] One 2020-09-14 2020-09-14 Telephone [facility] 1.2.794.998 [id number] Univers 00:00:00 00:00:00 Qiangjun [place] 350.1.13.10 ity of [place] 4.2.7.2.[place] Profess[place] [phone] Wa dicny nal 059 [facility] 2020-09-11 2020-09-11 Orders Doctor ERMA 1.2.840.114 [id number] 00:00:00 00:00:00 Only Unassigned, LAXMI 350.1.13.10 [facility] 4.2.7.2.686 [phone] 009 2020-09-11 2020-09-11 Telephone [facility] 1.2.840.114 [id number] Univers 00:00:00 00:00:00 Wondiful A Health 350.1.13.10 ity of [place] 4.2.7.2.686 Price as Professio [phone] [address] Office [facility] 2020-09-11 2020-09-11 Orders Doctor ERMA 1.2.840.114 [id number] Univers 00:00:00 00:00:00 Only Unassigned, LAXMI 350.1.13.10 [facility] 4.2.7.2.686 Price as [phone] [address] 2020-09-10 2020-09-10 Telemedici [facility] 1..840.114 80 [id number] Univers 16:41:05 17:12:10 ne Visit Wondiful A Health 350.1.13.10 ity of [place] 4.2.7.2.686 Price as Professio [phone] [address] 2020-09-10 2020-09-10 Outpatient [facility] [id number] Univers 16:00:00 16:00:00 WONDIFUL ity o f [facility] 2020-09-09 2020-09-09 Telephone [facility] 1..840.114 [id number] Univers 00:00:00 00:00:00 Wondiful A Health 350.1.13.10 ity of [place] 4.2.7.2.686 Price as Professio [phone] [address] 2020-09-08 2020-09-08 Telemedici [facility] 1..840.114 [id number] Univers 08:04:08 16:22:00 ne Visit Qiasandeepbelle [place] 350.1.13.10 ity of [place].2.[place] Profess[place] [phone] [facility] 059 [facility] 2020-09-08 2020-09-08 Outpatient R DAMIAN [facility] [id number] Univers 15:40:00 15:40:00 QIANGJUN ity o f [facility] 2020-09-07 2020-09-07 Transition Mohini William 1.2.840.114 [id number] Univers 00:00:00 00:00:00 of Care Chayito Buckley Ron 350.1.13.10 i ty of [place] 4.2.7.2.[place] [phone] [facility] [address] 2020-08-31 2020-09-04 Hospital Eleni Briggs 1.2.840.11 [id number] Univers 12:11:00 18:47:00 Encounter Lashawn Flood Laxmi 350.1.13.1 0 ity of Eleni Briggs [facility] 4.2.7.2.686 [place] Lashawn Flood [phone] Medical Anesthesia-Clarita, Patient Registration Clerk 0[address] [place] [facility] 2020-08-31 2020-08-31 Anesthesia Rajni Gonzalez 1.2.840.114 [id number] Univers 08:40:00 12:01:00 Chilo Medina 350.1.13.10 ity of [facility] 4.2.7.2.686 Price as [phone] [facility] [address] [place] 2020-08-31 2020-08-31 Outpatient R BRIGITTE [facility] [id number] Univers 07:00:00 07:00:00 ELENI ity of [facility] 2020-08-28 2020-08-28 Bar Pointer Candace, Adc Lab Main [facility] 1.2.8 40.114 [id number] Univers 11:47:00 12:02:00 Visit Eleni Briggs 350.1.13.10 ity of [place] 4.2.[place].2.686 [place] [facility] [phone] [place] dical [facility] 353 [facility] 2020-08-28 2020-08-28 Laboratory Only, Adc Test [facility] 1.2.840. 114 [id number] Univers 11:45:38 12:00:38 Only Eleni Briggs [place] 350.1.13.10 ity of [place] 4.2.7.2.[place] [phone] [facility] [address] [place] 2020-08-28 2020-08-28 Outpatient R [facility] [id number] Univers 11:30:00 11:30:00 ity of [facility] 2020-08-28 2020-08-28 Refill [facility] 1.2.840.114 [id number] Univers 00:00:00 00:00:00 Wondiful A Health 350.1.13.10 ity of [place] 4.2.7.2.686 Price as Professio [phone] [facility] 044 [facility] 2020-08-27 2020-08-27 Patient Dale [facility] 1.2.840.114 [id number] Univers 00:00:00 00:00:00 Secure Msg Wondiful A HEALTH 350.1.13.10 ity of [place] 4.2.7.2.686 Price as PROFESSIO [phone] [facility] NAL [address] [facility] 2020-08-27 2020-08-27 Refill [facility] 1.2.840.114 [id number] Univers 00:00:00 00:00:00 Wondiful A Health 350.1.13.10 ity of [place] 4.2.7.2.686 Price as Professio [phone] [address] 2020-08-26 2020-08-26 Office Damian [facility] 1..840.114 [id number] Univers 14:40:59 15:33:13 Visit Sancho Live 350.1.13.10 ity of [place] 4.2.[place].2.[place] Profess[place] [phone] Wa dicny nal 059 [facility] 2020-08-26 2020-08-26 Outpatient R RAQUEL NOLAN [facility] [id number] Univers 14:00:00 14:00:00 [facility] 2020-08-26 2020-08-26 Telemedici [facility] ..840.114 [id number] Univers 10:16:14 10:46:14 ne Visit Raquel iLve 350.1.13.10 ity of [place] 4.2.7.2.[place] [phone] Wa dical nal [address] Building 2020-08-24 2020-08-24 Outpatient R DAMIAN [facility] [id number] Univers 13:20:00 13:20:00 SANCHO ity o f [facility] 2020-08-24 2020-08-24 Telephone Janice Briggs 1.2.220.362 [id number] Univers 00:00:00 00:00:00 Eleni A [place] 350.1.13.10 it y of [facility] 4.2.7.2.686 Price as [phone] [facility] 0[address] [place] 2020-08-11 2020-08-11 Outpatient R CHANDRA GARCIA [facility] [id number] Univers 16:00:00 16:00:00 ity of [facility] 2020-07-28 2020-07-28 Refill [facility] 1.2.840.114 [id number] Univers 00:00:00 00:00:00 Wondiful A Health 350.1.13.10 ity of [place] 4.2.7.2.686 Price as Professio [phone] Wa dical nal [address] Office Building One 2020-07-13 2020-07-13 Hospital Brigitte Eleni Camacho 1.2.840.11 [id number] Univers 08:00:00 08:29:00 Encounter Anesthesia-Clarita, Patient Registration Clerk Laxmi 350 .1.13.10 ity [facility] 4.2.7.2.686 [place] [phone] [address] 2020-07-13 2020-07-13 Outpatient R BRIGITTE [facility] [id number] Univers 08:00:00 08:00:00 ELENI ity of [facility] 2020-07-09 2020-07-09 Telephone Janice Briggs 1.2.310.885 [id number] Univers 00:00:00 00:00:00 Eleni A L[place] 350.1.13.10 it y [facility] 4.2.7.2.686 Price as [phone] [address] 2020-07-09 2020-07-09 Telephone [facility] 1.2.840.114 [id number] Univers 00:00:00 00:00:00 Wondiful A Health 350.1.13.10 ity of [place] 4.2.7.2.686 Price as Professio [phone] [address] Office Building [facility] 2020-07-01 2020-07-01 Patient Oneida [facility] 1.2.840.114 [id number] Univers 00:00:00 00:00:00 Secure Msg Wond[facility] [id number] ity of [place] [id number] Price as Professio [phone] [address] Office Building [facility] 2020-06-22 2020-06-22 Outpatient R BRIGITTE [facility] [id number] Univers 09:00:00 09:00:00 ELENI ity [facility] 2020-06-15 2020-06-15 Telephone Janice Briggs [id number] Univers 00:00:00 00:00:00 Eleni [facility] [place] [id number] it y of Hospital [id number] Price as [phone] [address] 2020-06-09 2020-06-09 [facility] [id number] Univers 15:15:38 17:02:51 Visit Eleni [facility] [id number] it y [place] [id number] [place] [phone] [facility] [address] 2020-06-09 2020-06-09 Outpatient R BRIGITTE [facility] [id number] Univers 15:30:00 15:30:00 ELENI ity [facility] 2020-06-09 2020-06-09 [facility]phone [facility] [id number] Univers 00:00:00 00:00:00 [facility] [id number] ity of [place] [id number] Price as Professio [phone] [address] Office Building [facility] 2020-06-02 2020-06-02 Telephone Damian [facility] 1.2.774.696 [id number] Univers 00:00:00 00:00:00 Marybelen Live 350.1.13.10 [place] [phone] Wa dical nal 059 [facility] 2020-06-02 2020-06-02 Orders Doctor ERMA 1.2.840.114 [id number] Univers 00:00:00 00:00:00 Only Unassigned, LAXMI 350.1.13.10 ity of [facility] 4.2.7.2.686 Price as [phone] [address] 2020-05-26 2020-05-26 Refmarkos [facility] 1.2.840.114 [id number] Univers 00:00:00 00:00:00 Wondiful [place] 350.1.13.10 it[place] of [place] [phone] [facility] 044 [facility] 2020-05-26 2020-05-26 Coco Briggs [facility] 1.2.169.393 [id number] Univers 00:00:00 00:00:00 Eleni A Health 350.1.13.10 it y [place] [phone] [address] 2020-05-25 2020-05-25 [facility] [id number] Univers 10:20:00 10:20:00 SANCHO lozanoy o f [facility] 2020-05-25 2020-05-25 Telemedici [facility] 1.2.840.114 [id number] Univers 08:28:59 08:48:59 ne Visit Marysandeepbelle Maria T 350.1.13.10 it[place] of [place] [phone] Wa dical nal 059 [facility] 2020-05-11 2020-05-11 Orders Doctor ERMA 1.2.840.114 [id number] Univers 00:00:00 00:00:00 Only Unassigned, LAXMI 350.1.13.10 ity of [facility] 4.2.7.2.686 Price as [phone] [facility] [address] 2020-05-05 2020-05-05 Telephone [facility] 1.2.385.497 [id number] Univers 00:00:00 00:00:00 Marysandeepbelle Maria T 350.1.13.10 [place] [phone] [facility] 059 [facility] 2020-05-05 2020-05-05 Telephone Jeannette RITCHIE 1.2.840.114 [id number] Univers 00:00:00 00:00:00 , Mira WATTS 350.1.13.10 ity of [facility] 4.2.7.2.686 Price as [phone] [facility] 019 [place] 2020-04-28 2020-04-28 Urgent Provider, [facility] 1.2.840.114 [id number] Univers 14:22:39 14:42:39 Care Shell Thao [facility] 350.1.13.10 ity of [place] 4.2.7.2.686 Price as Professio [phone] [facility] [address] Office Building One 2020-04-28 2020-04-28 Outpatient R [facility] [id number] Univers 14:40:00 14:40:00 ity of [facility] 2020-04-22 2020-04-22 Outpatient R RAQUEL NOLAN [facility] [id number] Univers 15:00:00 15:00:00 RAQUEL NOLAN ity [facility] 2020-04-22 2020-04-22 Telemedici [facility] 1.2.840.114 [id number] Univers 07:56:37 14:53:59 ne Visit Sancho Live 350.1.13.10 it[place] [phone] Wa dicny nal 059 [facility] 2020-04-22 2020-04-22 Telemedici [facility] 1.2.840.114 [id number] Univers 14:15:39 14:45:39 ne Visit Raquel Live 350.1.13.10 [place] of [place] [phone] Wa dical nal 085 [facility] 2020-04-20 2020-04-20 Telephone [facility] 1.2.999.945 [id number] Univers 00:00:00 00:00:00 Sancho Maria T 350.1.13.10 [place] of [place] [phone] Wa dical nal 059 [facility] 2020-04-20 2020-04-20 [facility] 1.2.840.114 [id number] Univers 00:00:00 00:00:00 Raquel Live 350.1.13.10 it[place] of [place].2.[place] ess[place] [phone] Wa dical nal 085 [facility] 2020-04-16 2020-04-16 Outpatient R RAQUEL NOLAN [facility] [id number] Univers 20:00:00 20:00:00 RAQUEL NOLAN itsadia [facility] 2020-04-16 2020-04-16 Bar Pointer 1, [facility] Sleep Lab Bed [facility] 1. 2.840.114 [id number] Univers 12:55:11 15:25:11 Visit Raquel Nolan 350.1.13. 10 it[place] of [place].2.[place] [phone] [facility] [address] [place] 2020-04-16 2020-04-16 Orders Doctor ERMA 1.2.840.114 [id number] Univers 00:00:00 00:00:00 Only Unassigned, LAXMI 350.1.13.10 ity of [facility] 4.2.7.2.686 Price as [phone] [facility] 009 [place] 2020-04-15 2020-04-15 Outpatient R BRYAN [facility] [id number] Univers 14:30:00 14:30:00 MUMTAZ ity of [facility] 2020-04-14 2020-04-14 Outpatient R [facility] [id number] Univers 15:00:00 15:00:00 ity of [facility] 2020-04-14 2020-04-14 Outpatient R [facility] [id number] Univers 14:00:00 14:00:00 ity of [facility] 2020-04-14 2020-04-14 Outpatient R [facility] [id number] Univers 14:00:00 14:00:00 ity of [facility] 2020-04-14 2020-04-14 Laboratory Only, Adc Test [facility] 1.2.840. 114 [id number] Univers 12:23:00 12:38:00 Only Raquel Nolan [place] 350.1.13. 10 [place] of [place].2.[place] [phone] [address] 2020-04-07 2020-04-07 Outpatient R RAQUEL NOLAN [facility] [id number] Univers 20:00:00 20:00:00 GAVIN NOLANL ity of [facility] 2020-04-07 2020-04-07 Kevin Hunter [facility] ..840.114 [id number] Univers 00:00:00 00:00:00 Wondiful A Health 350.1.13.10 ity of [place] 4.2.7.2.686 Price as Professio [phone] Wa dicny nal 044 [place] Office Building One 2020-04-03 2020-04-03 Outpatient R [facility] [id number] Univers 11:30:00 11:30:00 ity of [facility] 2020-04-01 2020-04-01 Telephone Oneyda [facility] ..840.114 [id number] Univers 00:00:00 00:00:00 Raquel T [place] 350.1.13.10 [place] [phone] Wa dical nal 085 [facility] 2020-04-01 2020-04-01 Kevin Hunter [facility] 1.2.840.114 [id number] Univers 00:00:00 00:00:00 Wondiful A Health 350.1.13.10 ity of [place] 4.2.7.2.686 Price as Professio [phone] Wa dical nal 044 [facility] 2020-03-31 2020-03-31 Outpatient R DAMIAN, [facility] [id number] Univers 00:00:00 00:00:00 PARTHAJUN ity o f [facility] 2020-03-27 2020-03-27 Laboratory Only, Adc Test [facility] 1.2.840. 114 [id number] Univers 14:35:03 14:50:03 Only Lul Davis 350.1.13.10 [place].2.[place] [phone] [address] 2020-03-27 2020-03-27 Outpatient R LUL DAVIS [facility] [id number] Univers 14:30:00 14:30:00 ity of [facility] 2020-03-27 2020-03-27 Telephone [facility] 1.2.840.114 [id number] Univers 00:00:00 00:00:00 Wondiful A Health 350.1.13.10 ity of [place] 4.2.7.2.686 Price as Professio [phone] Wa dical nal 044 [facility] 2020-03-27 2020-03-27 Telephone [facility] 1.2.840.114 [id number] Univers 00:00:00 00:00:00 Wondiful A Health 350.1.13.10 ity of [place] 4.2.7.2.686 Price as Professio [phone] Wa dical nal 044 [facility] 2020-03-23 2020-03-23 Outpatient R DAMIAN, [facility] [id number] Univers 15:00:00 15:00:00 SANCHO ity o f [facility] 2020-03-23 2020-03-23 Telephone [facility] 1.2.843.393 [id number] Univers 00:00:00 00:00:00 Sancho [place] 350.1.13.10 it[place] [phone] [facility] 059 [facility] 2020-03-23 2020-03-23 Refill [facility] 1.2.840.114 [id number] Univers 00:00:00 00:00:00 Wondiful A Health 350.1.13.10 ity of [place] 4.2.7.2.686 Price as Professio [phone] Wa dical nal 044 [place] Office Building One 2020-03-17 2020-03-17 Refill [facility] 1.2.840.114 [id number] Univers 00:00:00 00:00:00 Wondiful A Health 350.1.13.10 ity of [place] 4.2.7.2.686 Price as Professio [phone] Wa dical nal 044 [place] Office Building One 2020-03-06 2020-03-06 Telephone [facility] 1.2.840.114 [id number] Univers 00:00:00 00:00:00 Wondiful A Health 350.1.13.10 ity of [place] 4.2.7.2.686 Price as Professio [phone] [facility] nal [address] [place] [address] Office [facility] 2020-03-04 2020-03-05 [facility] Brigitte Eleni Camacho 1.2.840.11 [id number] Univers 18:26:00 15:49:00 Encounter Phani Marquez Hein [place] 350. 1.13.10 ity of Anest[facility] 4.2.7. 2.686 [place] [facility] [phone] Medical Hunter Byrne 089 [facility] 2020-03-04 2020-03-04 [facility] BrigitteEleni 1.2.840.11 [id number] Univers 14:00:00 18:25:00 Encounter Anesthesia-Clarita, Patient Registration Clerk Laxmi 350 .1.13.10 ity of Outpt-[facility] 4.2.7.2.686 Hunter Hodge [phone] [address] 2020-03-04 2020-03-04 Outpatient [facility] [id number] Univers 07:00:00 07:00:00 ELENI ity of [facility] 2020-02-27 2020-02-27 Telephone Janice Briggs 1.2.861.682 [id number] Univers 00:00:00 00:00:00 Eleni A Laxmi 350.1.13.10 it y of Hospital 4.2.7.2.686 Price as [phone] [address] 2020-02-26 2020-02-26 Telephone Janice Briggs 1.2.527.402 [id number] Univers 00:00:00 00:00:00 Eleni A [place] 350.1.13.10 it y of [facility] 4.2.7.2.686 Price as [phone] [address] 2020-02-25 2020-02-25 Outpatient R SRIRAM NOLANNJIna [facility] [id number] Univers 20:00:00 20:00:00 [facility] 2020-02-25 2020-02-25 Orders Doctor ERMA 1.2.840.114 [id number] Univers 00:00:00 00:00:00 Only Unassigned, LAXMI 350.1.13.10 ity of [facility] [facility] 4.2.7.2.686 Price as [phone] [address] 2020-02-25 2020-02-25 [facility] 1.2.840.114 [id number] Univers 00:00:00 00:00:00 Wondiful A [place] 350.1.13.10 [place] [phone] Wa dic[address] 2020-02-24 2020-02-24 Outpatient R [facility] [id number] Univers 13:00:00 13:00:00 ity of [facility] 2020-02-21 2020-02-21 [facility] 1.2.840.114 [id number] Univers 00:00:00 00:00:00 Wondiful A [place] 350.1.13.10 [place].2.[place] [phone] Wa dic[address] 2020-02-21 2020-02-21 Telephone [facility] 1.2.840.114 [id number] Univers 00:00:00 00:00:00 Wondiful A [place] 350.1.13.10 [place].2.[place].2.[place] [phone] Wa dical [facility] 044 [facility] 2020-02-20 2020-02-20 Telemedici [facility] 1.2.840.114 [id number] Univers 07:56:26 17:36:27 ne Visit Wondiful A [place] 350.1.13.10 it[place] 4.[place].2.[place] [phone] [facility] 044 [facility] 2020-02-20 2020-02-20 Outpatient [facility] [id number] Univers 16:00:00 16:00:00 WONDIFUL ity o f [facility] 2020-02-18 2020-02-18 Outpatient [facility] [id number] Univers 16:30:00 16:30:00 ELENI ity of [facility] 2020-02-18 2020-02-18 [facility] 1.2.840.114 [id number] Univers 15:00:00 15:30:00 ne Visit Mumtaz Live 350.1.13.10 it[place] of [place].2.[place] [phone] [facility] 220 [facility] 2020-02-18 2020-02-18 [facility] 1.2.840.114 [id number] Univers 08:57:15 09:27:15 ne Visit Eleni A Health 350.1.13.10 i ty of [place]2.7.2.[place] [phone] [place] [address] [place] Office Building 2020-02-10 2020-02-10 Outpatient R DAMIAN [facility] [id number] Univers 13:20:00 13:20:00 QIASANDEEPBELLE ity o f [facility] 2020-02-10 2020-02-10 [facility] 1.2.840.114 [id number] Univers 08:06:23 08:26:23 ne Visit Sancho [place] 350.1.13.10 it[place] of [place] 4.[place].2.[place] [phone] Wa [facility] 059 [facility] 2020-01-30 2020-01-30 Telephone [facility] 1.2.840.114 [id number] Univers 00:00:00 00:00:00 Wondiful A Health 350.1.13.10 ity of [place] 4.2.7.2.686 Price as Professio [phone] [facility] 044 [place] Office [facility] 2020-01-29 2020-01-29 Telephone [facility] 1.2.840.114 [id number] Univers 00:00:00 00:00:00 Wondiful A Health 350.1.13.10 ity of [place] 4.2.7.2.686 Price as Professio [phone] [facility] 044 [facility] 2020-01-28 2020-01-28 Telephone Janice Briggs 1.2.513.233 [id number] Univers 00:00:00 00:00:00 Eleni A [place] 350.1.13.10 it y of Hospital 4.2.7.2.686 Price as [phone] [address] 2020-01-22 2020-01-22 Telemedici [facility] 1.2.840.114 [id number] Univers 13:00:00 13:30:00 ne Visit Mumtaz [place] 350.1.13.10 ity [place] [phone] [facility] 220 [facility] 2020-01-22 2020-01-22 Outpatient R BRYAN [facility] [id number] Univers 13:00:00 13:00:00 WENTONG ity of [facility] 2020-01-20 2020-01-20 Telephone Janice Briggs 1.2.528.345 [id number] Univers 00:00:00 00:00:00 Eleni A [place] 350.1.13.10 it y of Hospital 4.2.7.2.686 Price as [phone] [address] 2020-01-16 2020-01-16 Coco Briggs [facility] 1.2.699.165 [id number] Univers 00:00:00 00:00:00 Eleni A Health 350.1.13.10 it [place] [phone] [facility] 051 [address] ([facility]) 2020-01-13 2020-01-13 Telephone Janice Briggs 1.2.038.841 [id number] Univers 00:00:00 00:00:00 Eleni A Laxmi 350.1.13.10 it y of Hospital 4.2.7.2.686 Price as [phone] [address] 2020-01-10 2020-01-10 Telephone Janice Briggs 1.2.309.337 [id number] Univers 00:00:00 00:00:00 Eleni A [place] 350.1.13.10 it y of Hospital 4.2.7.2.686 Price as [phone] [address] 2020-01-08 2020-01-08 Janice Miranda 1.2.726.829 [id number] Univers 00:00:00 00:00:00 Eleni A [place] 350.1.13.10 it y of Hospital 4.2.7.2.686 Price as [phone] [address] 2020-01-07 2020-01-07 Outpatient R RAQUEL NOLAN [facility] [id number] Univers 15:00:00 15:00:00 RAQUEL NOLAN ity of [facility] 2020-01-07 2020-01-07 Telemedici Oneyda MIVENITA 1.2.840.114 [id number] Univers 14:00:58 14:30:58 ne Visit Raquel Stewart MULTISPEC 350.1.13.10 ity of [place].2.7.2.[place] C[place] [phone] [facility] AND MARTINEZ 085 [address] [facility] 2020-01-07 2020-01-07 Coco Briggs MIVENITA 1.2.691.468 [id number] Univers 00:00:00 00:00:00 Eleni A Health 350.1.13.10 it y [place].2.[place] [phone] Medi enrique Medical 059 [address] Office Building 2020-01-06 2020-01-06 Outpatient R GERONIMO [facility] [id number] Univers 15:00:00 15:00:00 VANDANA ity of [facility] 2020-01-06 2020-01-06 Telemedici [facility] 1.2.840.114 [id number] Univers 09:10:28 09:40:28 ne Visit Vandana MULTISPEC 350.1.13.10 ity of [place] 4.2.7.2.686 [place] [facility] [phone] [facility] 085 [address] [facility] 2020-01-01 2020-01-01 Kevin Calhoun [facility] 1.2.840.114 [id number] Univers 00:00:00 00:00:00 Satinder Health 350.1.13.10 it y of roxy [place] 4.2.7.2.686 Price as Professio [phone] Wa dicny nal 044 [place] Office Building One 2019-12-30 2019-12-30 Outpatient R [facility] [id number] Univers 08:00:00 08:00:00 ity of [facility] 2019-12-18 2019-12-18 Telephone Janice Briggs 1.2.970.728 [id number] Univers 00:00:00 00:00:00 Eleni A [place] 350.1.13.10 it y of [facility] 4.2.7.2.686 Price as [phone] [place] [address] [address] 2019-12-16 2019-12-16 Outpatient R RAQUEL NOLAN [facility] [id number] Univers 15:00:00 15:00:00 RAQUEL NOLAN ity of [facility] 2019-12-03 2019-12-03 Kevin Hunter [facility] 1.2.840.114 [id number] Univers 00:00:00 00:00:00 Wondiful A Health 350.1.13.10 ity of [place] 4.2.7.2.686 Price as Professio [phone] Wa dical nal 044 [place] Office Building One 2019-11-28 2019-11-28 Outpatient [facility] [id number] Univers 11:15:00 11:15:00 WONDIFUL ity o f [facility] 2019-11-27 2019-11-27 Emergency [facility] 1.2.857.137 [id number] Univers 15:49:31 16:51:00 Suri S [place] 350.1.13.10 i ty of [place] 4.2.7.2.[place] [phone] [facility] 084 [place] 2019-11-27 2019-11-27 Outpatient R RAQUEL NOLAN [facility] [id number] Univers 14:00:00 14:00:00 ATANASOV [facility] ity of [facility] 2019-11-27 2019-11-27 Orders Doctor ERMA 1..840.114 [id number] Univers 00:00:00 00:00:00 Only Unassigned, LAXMI 350.1.13.10 ity of [place] [facility] 4.2.7.2.686 Price as [phone] [facility] 009 [place] 2019-11-21 2019-11-21 Office [facility] 1.2.840.114 [id number] Univers 15:40:38 16:47:27 Visit Wondiful A Health 350.1.13.10 ity of [place] 4.2.7.2.686 Price as Professio [phone] [address] Office Building One 2019-11-21 2019-11-21 Outpatient [facility] [id number] Univers 15:45:00 15:45:00 WONDIFUL ity o f [facility] 2019-11-21 2019-11-21 Case [facility] 1.2.840.114 [id number] Univers 00:00:00 00:00:00 Management Wondiful A Health 350.1.13.10 ity of [place] 4.2.7.2.686 Price as Professio [phone] [address] Office Building [facility] 2019-11-21 2019-11-21 Telephone Janice Briggs 1..861.537 [id number] Univers 00:00:00 00:00:00 Eleni A [place] 350.1.13.10 it y of [facility] 4.2.7.2.686 Price as [phone] [facility] [address] 2019-11-20 2019-11-20 Telephone Brigitte Janice 1.2.695.388 [id number] Univers 00:00:00 00:00:00 Eleni A Laxmi 350.1.13.10 it y of Hospital 4.2.7.2.686 Price as [phone] [facility] [address] 2019-11-19 2019-11-19 Office Brigitte [facility] 1.2.840.114 [id number] Univers 13:14:01 14:09:47 Visit Eleni A HEALTH 350.1.13.10 it [place] of [place]2.7.2.686 [place] [phone] [facility] Primary & [facility] Specialty Care 2019-11-19 2019-11-19 Outpatient R BRIGITTE [facility] [id number] Univers 13:00:00 13:00:00 ELENI ity of [facility] 2019-11-18 2019-11-18 Telephone Jorge Luis [facility] 1.2.840.114 [id number] Univers 00:00:00 00:00:00 Nouman PRIMARY 350.1.13.10 it y of CARE 4.2.7.2.[place] [phone] Wa dical [address] 2019-11-14 2019-11-14 Transition Cally Lancasterjacky 1.2.840.114 [id number] Univers 00:00:00 00:00:00 of Care Asim A Ron 350.1.13.10 ity of [place] 4.2.7.2.686 [place] [phone] [facility] [address] 2019-11-14 2019-11-14 Telephone [facility] 1.2.737.991 [id number] Univers 00:00:00 00:00:00 Eleni A HEALTH 350.1.13.10 it [place] of [place] 4.2.7.2.686 [place] [phone] [facility] Primary & 9 Branch Specialty Care 2019-11-14 2019-11-14 Telephone Dale [facility] 1.2.840.114 [id number] Univers 00:00:00 00:00:00 Wondiful A Health 350.1.13.10 ity of [place] 4.2.7.2.686 Price as Professio [phone] Wa dical nal 044 [place] Office [facility] 2019-11-09 2019-11-13 [facility] Bandar Lawler 1.2.8 40.114 [id number] Univers 17:31:57 17:11:00 Encounter ChineduJacob ortega [place] 350.1.13.10 ity of [facility] 4.2.7.2 .686 [place] [phone] [address] 2019-11-09 2019-11-13 Inpatient X [facility] [id number] Univers 17:31:57 17:11:00 [facility] ity [facility] 2019-11-09 2019-11-13 Inpatient [facility] [id number] Univers 17:31:57 17:11:00 [facility] 2019-11-13 2019-11-13 Telephone [facility] 1.2.840.114 [id number] Univers 00:00:00 00:00:00 Wondiful A Health 350.1.13.10 ity of [place] 4.2.7.2.686 Price as Professio [phone] [facility] 044 [facility] 2019-11-13 2019-11-13 Telephone [facility] 1.2.840.114 [id number] Univers 00:00:00 00:00:00 Wondiful A Health 350.1.13.10 ity of [place] 4.2.7.2.686 Price as Professio [phone] Wa dical nal 044 [place] Office Building [facility] 2019-10-23 2019-10-23 Telephone [facility] 1.2.723.192 [id number] Univers 00:00:00 00:00:00 Sancho [place] 350.1.13.10 ity of [place].2.[place].2.[place] [phone] Wa dicny nal 059 [facility] 2019-10-22 2019-10-22 Refill [facility] 1.2.840.114 [id number] Univers 00:00:00 00:00:00 Wondiful A Health 350.1.13.10 ity of [place] 4.2.7.2.686 Price as Professio [phone] [facility] 044 [place] Office [facility] 2019-10-21 2019-10-21 Refmarkos [facility] 1.2.840.114 [id number] Univers 00:00:00 00:00:00 Wondiful A Health 350.1.13.10 ity of [place] 4.2.7.2.686 Price as Professio [phone] [facility] 044 [facility] 2019-10-08 2019-10-08 Outpatient R DAMIAN [facility] [id number] Univers 17:15:00 17:15:00 SANCHO mccray o f [facility] 2019-10-08 2019-10-08 Bar Pointer 1, Adc Lab [facility] 1.2.840.114 [id number] Univers 16:40:00 16:55:00 Visit Sancho Salgado 350.1.13.10 [place].2.[place] [phone] [facility] [address] [place] 2019-10-08 2019-10-08 Office [facility] 1.2.840.114 [id number] Univers 15:29:03 16:22:43 Visit Sancho [place] 350.1.13.10 [place].7.2.[place] Profess[place] [phone] [facility] 059 [facility] 2019-10-08 2019-10-08 Orders Doctor [facility] 1.2.840.114 [id number] Univers 00:00:00 00:00:00 Only Unassigned, LAXMI 350.1.13.10 ity of [place] [facility] 4.2.7.2.686 Price as [phone] [facility] [address] [place] 2019-10-07 2019-10-07 Telephone [facility] 1.2.840.114 [id number] Univers 00:00:00 00:00:00 Wondiful [facility] [id number] ity of [place] [id number] Price as Professio [phone] [facility] nal [address] 2019-05-24 2019-05-24 Telephone Brigitte [facility] [id number] Univers 00:00:00 00:00:00 Eleni [facility] 350.1.13.10 it y of [place] 4.2.7.2.686 [place] [facility] [phone] [facility] Primary & [address] [facility] 2019-05-06 2019-05-06 Refmarkos Hunter, [facility] [id number] Univers 00:00:00 00:00:00 Wondiful [facility] 350.1.13.10 ity of [place] T 4.2.7.2.686 Price as Professio [phone] [facility] [address] Results Test Description Test Time Test Comments Results Result Comments Source CBC WITH DIFF 2023-06-27 08:07:17 Test Item Value Reference Range Interpretation Comme nts WBC (test code = 6690-2) 5.53 See_Comment [A utomated message] The system which ge nerated this result transmit anali reference range: 4.30 - 1 1.10 10*3/?L. The reference r arianna was not used to interpr et this result as normal/abnor mal. RBC (test code = 789-8) 3.65 See_Comment L [Au tomated message] The system which ge nerated this result transmit anali reference range: 3.93 - 5 .25 10*6/?L. The reference r arianna was not used to interpr et this result as normal/abnor mal. HGB (test code = 718-7) 9.1 g/dL 11.6-15.0 L HCT (test code = 4544-3) 27.1 % 35.7-45.2 L MCV (test code = 787-2) 74.2 fL 80.6-95.5 L MCH (test code = 785-6) 24.9 pg 25.9-32.8 L MCHC (test code = 786-4) 33.6 g/dL 31.6-35.1 RDW-SD (test code = 22663-8) 40.4 fL 39.0-49.9 RDW-CV (test code = 788-0) 15.0 % 12.0-15.5 PLT (test code = 777-3) 240 See_Comment [Au tomated message] The system which ge nerated this result transmit anali reference range: 166 - 35 8 10*3/?L. The reference range was not used to interpret th is result as normal/abnormal . MPV (test code = 75553-7) 8.8 fL 9.5-12.9 L NRBC/100 WBC (test code = 0.0 See_Comment [ Automated message] The 0809823130) system which ge nerated this result transmit anali reference range: 0.0 - 10 .0 /100 WBCs. The reference r arianna was not used to interpr et this result as normal/abnor mal. NRBC x10^3 (test code = See_Comment [Au tomated message] The 8706894589) system which ge nerated this result transmit anali reference range: 10*3/?L. The reference range was not u sed to interpret this result as normal/abnormal . SEG % (test code = 54114-5) 56 % 33-76 LYMPH % (test code = 40 % 14-54 96653-2) MONO % (test code = 71819-4) 4 % 0-4 ANC (test code = 753-4) 3.10 10*3/uL 1.88-7.09 Lab Interpretation (test Abnormal code = 42151-5) [facility] ALCOHOL<10mg/dL06/27/2023 2:43 AM [facility]<10 Mweakbqo80-700 Toxic>100 Depression of ECONOMIC GEOGRAPHER>400 [facility]. METABOLIC PANEL ([id number]) 2023-06-27 07:40:53 Test Item Value Reference Range Interpretation Comments NA (test code = 126 mmol/L 135-145 L 6440450252) K (test code = 4.2 mmol/L 3.5-5.0 2827575775) CL (test code = 90 mmol/L 98-108 L 2155495970) CO2 TOTAL (test code = 21 mmol/L 23-31 L 2413493857) AGAP (test code = 15 2-16 0299767951) BUN (test code = 14 mg/dL 7-23 5499028835) GLUCOSE (test code = 108 mg/dL 70-110 2214064379) CREATININE (test code = 1.07 mg/dL 0.50-1.04 H 0532448681) TOTAL BILI (test code = 0.3 mg/dL 0.1-1.6 1088989348) CALCIUM (test code = 8.8 mg/dL 8.6-10.6 7194064603) T PROTEIN (test code = 7.6 g/dL 6.3-8.2 3913335167) ALBUMIN (test code = 4.2 g/dL 3.5-5.0 5842412577) ALK PHOS (test code = 101 U/L 34-122 4698396678) ALTv (test code = 20 U/L 5-35 2-6) AST(SGOT) (test code = 23 U/L 13-40 9571695809) eGFR (test code = 52.9 mL/min/1.73m2 5759097966) CLEMENT (test code = CLEMENT) Association of [...] tests). Lab Interpretation Abnormal (test code = 96899-9) [facility] HEMOGLOBIN A1C [id number] 14:28:00 Test Item Value Reference Range Interpretation Comments POCT HBA1C (test code = 4548-4) 8.1 % 4-6 A Lab Interpretation (test code = Abnormal 74269-1) [facility] HEMOGLOBIN A1C [id number] 14:28:00 Test Item Value Reference Range Interpretation Comments POCT HBA1C (test code = 4548-4) 8.1 % 4-6 A Lab Interpretation (test code = Abnormal 05254-3) [facility] WITH [id number] 03:40:29 Test Item Value Reference Range Interpretation Comments WBC (test code = 6.26 See_Comment [Automated 6690-2) message] The sy stem which generated this result transmitted reference range : 4.30 - 11.10 10*3/?L. The reference range was not used to interpret this result as normal/abnormal . RBC (test code = 3.74 See_Comment L [Automated 069-8) message] The sy stem which generated this [...] RDW-SD (test code = 47.9 fL 39.0-49.9 47259-8) RDW-CV (test code = 16.3 % 12.0-15.5 H 788-0) PLT (test code = 208 See_Comment [Automated 777-3) message] The sy stem which generated this result transmitted reference range : 166 - 358 10*3/ ?L. The reference r arianna was not used to interpret this result as normal/abnormal . MPV (test code = 10.1 fL 9.5-12.9 88922-6) NRBC/100 WBC (test 0.0 See_Comment [Automat ed code = 8081339442) message] The system which generated this result transmitted reference range : 0.0 - 10.0 /100 WBCs. The refer ence range was not u sed to interpret th is result as normal/abnormal . NRBC x10^3 (test code See_Comment [Auto mated = 1617536060) message] The s ystem which generated this result transmitted reference range : 10*3/?L. The reference range was not used to interpret this result as normal/abnormal . GRAN MAT (NEUT) % 58.9 % (test code = 770-8) IMM GRAN % (test code 1.10 % = 4910500272) LYMPH % (test code = 30.5 % 736-9) MONO % (test code = 6.4 % 5905-5) EOS % (test code = 2.1 % 713-8) BASO % (test code = 1.0 % 706-2) GRAN MAT x10^3(ANC) 3.69 10*3/uL 1.88-7.09 (test code = 7316375699) IMM GRAN x10^3 (test 0.07 10*3/uL 0.00-0.06 H code = 7026066245) LYMPH x10^3 (test code 1.91 10*3/uL 1.32-3.29 = 731-0) MONO x10^3 (test code 0.40 10*3/uL 0.33-0.92 = 742-7) EOS x10^3 (test code = 0.13 10*3/uL 0.03-0.39 711-2) BASO x10^3 (test code 0.06 10*3/uL 0.01-0.07 = 704-7) Lab Interpretation Abnormal (test code = 60031-2) [facility] [id number] 03:33:12 Test Item Value Reference Range Interpretation Comments TROPONIN I (test code = <=0.034 5698476989) CLEMENT (test code = CLEMENT) Reference (Normal) [...] biotin. Lab Interpretation Normal (test code = 28714-7) [facility] [id number] 03:30:12 Test Item Value Reference Range Interpretation Comments NT-proBNP (test code = 461 pg/mL <=125 H 0195245999) CLEMENT (test code = CLEMENT) Biotin has been reported to cause a negative bias, interpret results relative to patient's use of biotin. Lab Interpretation (test Abnormal code = 14282-1) [facility]. METABOLIC PANEL (74274)2023-02-20 03:22:31 Test Item Value Reference Range Interpretation Comments NA (test code = 139 mmol/L 135-145 0568191022) K (test code = 4.0 mmol/L 3.5-5.0 4369681896) CL (test code = 106 mmol/L 98-108 7825635801) CO2 TOTAL (test code = 24 mmol/L 23-31 9145669097) AGAP (test code = 9 2-16 8074909144) BUN (test code = 16 mg/dL 7-23 2698730389) GLUCOSE (test code = 170 mg/dL 70-110 H 3950794290) CREATININE (test code = 0.82 mg/dL 0.50-1.04 4818149189) TOTAL BILI (test code = 0.5 mg/dL 0.1-1.2 8423638300) CALCIUM (test code = 8.7 mg/dL 8.6-10.6 5088928424) T PROTEIN (test code = 7.5 g/dL 6.3-8.2 5900617173) ALBUMIN (test code = 4.3 g/dL 3.5-5.0 2936179334) ALK PHOS (test code = 127 U/L 34-122 H 5521730099) ALTv (test code = 23 U/L 5-35 1742-6) AST(SGOT) (test code = 27 U/L 13-40 4705076044) eGFR (test code = 72.1 mL/min/1.73m2 4404951918) CLEMENT (test code = CLEMENT) Association of [...] tests). Lab Interpretation Abnormal (test code = 33970-2) [id number] 03:20:50 Test Item Value Reference Interpretation Comments Range D-DIMER (test code = 0.35 See_Comment [Autom ated 4697252278) message] The system which generated this result [...] diagnosis. Lab Interpretation Normal (test code = 65405-5) [facility] GLUCOSE (AUTOMATED)2023-01-11 14:47:56 Test Item Value Reference Range Interpretation Comments POCT GLU (test code = 6163779251) 91 mg/dL 70-110 Lab Interpretation (test code = Normal 88549-7) [facility] GLUCOSE (AUTOMATED)2023-01-11 14:47:56 Test Item Value Reference Range Interpretation Comments POCT GLU (test code = 9053931237) 91 mg/dL 70-110 Lab Interpretation (test code = Normal 97208-4) [facility] MOLECULAR [id number] 16:04:16 Test Item Value Reference Range Interpretation Comments POCT Molecular Strep (test code = Negative Negative 40486-5) Lab Interpretation (test code = Normal 80028-7) [facility] MOLECULAR [id number] 16:04:16 Test Item Value Reference Range Interpretation Comments POCT Molecular Strep (test code = Negative Negative 13943-1) Lab Interpretation (test code = Normal 51458-3) [facility]. METABOLIC PANEL ([id number])2022-11-15 03:28:21 Test Item Value Reference Range Interpretation Comments NA (test code = 138 mmol/L 135-145 5967462957) K (test code = 3.9 mmol/L 3.5-5.0 3772165697) CL (test code = 101 mmol/L 98-108 0106580204) CO2 TOTAL (test code = 27 mmol/L 23-31 5699160652) AGAP (test code = 10 2-16 0724010467) BUN (test code = 19 mg/dL 7-23 3484154377) GLUCOSE (test code = 104 mg/dL 70-110 4649567117) CREATININE (test code = 1.15 mg/dL 0.50-1.04 H 1562870026) TOTAL BILI (test code = 0.4 mg/dL 0.1-1.1 9999922108) CALCIUM (test code = 8.5 mg/dL 8.6-10.6 L 1468769518) T PROTEIN (test code = 8.3 g/dL 6.3-8.2 H 1534546456) ALBUMIN (test code = 4.7 g/dL 3.5-5.0 4373098054) ALK PHOS (test code = 101 U/L 34-122 9332086830) ALTv (test code = 26 U/L 5-35 1742-6) AST(SGOT) (test code = 39 U/L 13-40 9003323981) eGFR (test code = 48.8 mL/min/1.73m2 1966052002) CLEMENT (test code = CLEMENT) Association of [...] tests). Lab Interpretation Abnormal (test code = 58481-6) [facility] WITH [id number] 03:21:03 Test Item Value Reference Range Interpretation Comments WBC (test code = 6.50 See_Comment [Automated 7390-2) message] The sy stem which generated this [...] RDW-SD (test code = 44.1 fL 39.0-49.9 77625-9) RDW-CV (test code = 15.5 % 12.0-15.5 788-0) PLT (test code = 249 See_Comment [Automated 777-3) message] The sy stem which generated this result transmitted reference range : 166 - 358 10*3/ ?L. The reference r arianna was not used to interpret this result as normal/abnormal . MPV (test code = 9.3 fL 9.5-12.9 L 40241-9) NRBC/100 WBC (test 0.0 See_Comment [Automat ed code = 4098416667) message] The system which generated this result transmitted reference range : 0.0 - 10.0 /100 WBCs. The refer ence range was not u sed to interpret th is result as normal/abnormal . NRBC x10^3 (test code See_Comment [Auto mated = 6443231900) message] The s ystem which generated this result transmitted reference range : 10*3/?L. The reference range was not used to interpret this result as normal/abnormal . GRAN MAT (NEUT) % 56.2 % (test code = 770-8) IMM GRAN % (test code 0.30 % = 0073143839) LYMPH % (test code = 33.5 % 736-9) MONO % (test code = 7.5 % 5905-5) EOS % (test code = 1.7 % 713-8) BASO % (test code = 0.8 % 706-2) GRAN MAT x10^3(ANC) 3.65 10*3/uL 1.88-7.09 (test code = 7811594686) IMM GRAN x10^3 (test 0.00-0.06 code = 0021124664) LYMPH x10^3 (test code 2.18 10*3/uL 1.32-3.29 = 731-0) MONO x10^3 (test code 0.49 10*3/uL 0.33-0.92 = 742-7) EOS x10^3 (test code = 0.11 10*3/uL 0.03-0.39 711-2) BASO x10^3 (test code 0.05 10*3/uL 0.01-0.07 = 704-7) Lab Interpretation Abnormal (test code = 56053-8) [facility] WITH [id number] 21:27:47 Test Item Value Reference Range Interpretation [...] RDW-SD (test code = 46.0 fL 39.0-49.9 81053-0) RDW-CV (test code = 16.1 % 12.0-15.5 H 788-0) PLT (test code = See_Comment [Automated 777-3) message] The sy stem which generated this result transmitted reference range : 166 - 358 10*3/ ?L. The reference r arianna was not used to interpret this result as normal/abnormal . MPV (test code = 9.9 fL 9.5-12.9 32163-2) NRBC/100 WBC (test See_Comment [Automat ed code = 2846486149) message] The system which generated this result transmitted reference range : 0.0 - 10.0 /100 WBCs. The refer ence range was not u sed to interpret th is result as normal/abnormal . NRBC x10^3 (test code See_Comment [Auto mated = 6038070709) message] The s ystem which generated this result transmitted reference range : 10*3/?L. The reference range was not used to interpret this result as normal/abnormal . GRAN MAT (NEUT) % 57.5 % (test code = 770-8) IMM GRAN % (test code 0.30 % = 1881763481) LYMPH % (test code = 31.4 % 736-9) MONO % (test code = 8.3 % 5905-5) EOS % (test code = 1.7 % 713-8) BASO % (test code = 0.8 % 706-2) GRAN MAT x10^3(ANC) 3.40 10*3/uL 1.88-7.09 (test code = 6253221763) IMM GRAN x10^3 (test 0.00-0.06 code = 5143803302) LYMPH x10^3 (test code 1.86 10*3/uL 1.32-3.29 = 731-0) MONO x10^3 (test code 0.49 10*3/uL 0.33-0.92 = 742-7) EOS x10^3 (test code = 0.10 10*3/uL 0.03-0.39 711-2) BASO x10^3 (test code 0.05 10*3/uL 0.01-0.07 = 704-7) Lab Interpretation Abnormal (test code = 93462-8) [facility] WITH [id number] 21:27:47 Test Item Value Reference Range Interpretation [...] RDW-SD (test code = 46.0 fL 39.0-49.9 34716-9) RDW-CV (test code = 16.1 % 12.0-15.5 H 788-0) PLT (test code = See_Comment [Automated 777-3) message] The sy stem which generated this result transmitted reference range : 166 - 358 10*3/ ?L. The reference r arianna was not used to interpret this result as normal/abnormal . MPV (test code = 9.9 fL 9.5-12.9 14764-5) NRBC/100 WBC (test See_Comment [Automat ed code = 7133235219) message] The system which generated this result transmitted reference range : 0.0 - 10.0 /100 WBCs. The refer ence range was not u sed to interpret th is result as normal/abnormal . NRBC x10^3 (test code See_Comment [Auto mated = 4640858381) message] The s ystem which generated this result transmitted reference range : 10*3/?L. The reference range was not used to interpret this result as normal/abnormal . GRAN MAT (NEUT) % 57.5 % (test code = 770-8) IMM GRAN % (test code 0.30 % = 7340353212) LYMPH % (test code = 31.4 % 736-9) MONO % (test code = 8.3 % 5905-5) EOS % (test code = 1.7 % 713-8) BASO % (test code = 0.8 % 706-2) GRAN MAT x10^3(ANC) 3.40 10*3/uL 1.88-7.09 (test code = 9252357563) IMM GRAN x10^3 (test 0.00-0.06 code = 1333347247) LYMPH x10^3 (test code 1.86 10*3/uL 1.32-3.29 = 731-0) MONO x10^3 (test code 0.49 10*3/uL 0.33-0.92 = 742-7) EOS x10^3 (test code = 0.10 10*3/uL 0.03-0.39 711-2) BASO x10^3 (test code 0.05 10*3/uL 0.01-0.07 = 704-7) Lab Interpretation Abnormal (test code = 36081-4) [facility] WITH [id number] 21:27:47 Test Item Value Reference Range Interpretation [...] RDW-SD (test code = 46.0 fL 39.0-49.9 10332-9) RDW-CV (test code = 16.1 % 12.0-15.5 H 788-0) PLT (test code = See_Comment [Automated 777-3) message] The sy stem which generated this result transmitted reference range : 166 - 358 10*3/ ?L. The reference r arianna was not used to interpret this result as normal/abnormal . MPV (test code = 9.9 fL 9.5-12.9 24536-5) NRBC/100 WBC (test See_Comment [Automat ed code = 2231973927) message] The system which generated this result transmitted reference range : 0.0 - 10.0 /100 WBCs. The refer ence range was not u sed to interpret th is result as normal/abnormal . NRBC x10^3 (test code See_Comment [Auto mated = 9403437674) message] The s ystem which generated this result transmitted reference range : 10*3/?L. The reference range was not used to interpret this result as normal/abnormal . GRAN MAT (NEUT) % 57.5 % (test code = 770-8) IMM GRAN % (test code 0.30 % = 9422225105) LYMPH % (test code = 31.4 % 736-9) MONO % (test code = 8.3 % 5905-5) EOS % (test code = 1.7 % 713-8) BASO % (test code = 0.8 % 706-2) GRAN MAT x10^3(ANC) 3.40 10*3/uL 1.88-7.09 (test code = 7926154887) IMM GRAN x10^3 (test 0.00-0.06 code = 5691647961) LYMPH x10^3 (test code 1.86 10*3/uL 1.32-3.29 = 731-0) MONO x10^3 (test code 0.49 10*3/uL 0.33-0.92 = 742-7) EOS x10^3 (test code = 0.10 10*3/uL 0.03-0.39 711-2) BASO x10^3 (test code 0.05 10*3/uL 0.01-0.07 = 704-7) Lab Interpretation Abnormal (test code = 22465-8) [facility] WITH [id number] 21:27:47 Test Item Value Reference Range Interpretation Comments WBC (test code = 5.92 See_Comment [Automated 6690-2) message] The sy stem which generated this result transmitted reference range : 4.30 - 11.10 10*3/?L. The reference range was not used to interpret this result as normal/abnormal . RBC (test code = 3.53 See_Comment L [Automated 279-8) message] The sy stem which generated this [...] RDW-SD (test code = 46.0 fL 39.0-49.9 99310-9) RDW-CV (test code = 16.1 % 12.0-15.5 H 788-0) PLT (test code = 258 See_Comment [Automated 777-3) message] The sy stem which generated this result transmitted reference range : 166 - 358 10*3/ ?L. The reference r arianna was not used to interpret this result as normal/abnormal . MPV (test code = 9.9 fL 9.5-12.9 08692-7) NRBC/100 WBC (test 0.0 See_Comment [Automat ed code = 5039271833) message] The system which generated this result transmitted reference range : 0.0 - 10.0 /100 WBCs. The refer ence range was not u sed to interpret th is result as normal/abnormal . NRBC x10^3 (test code See_Comment [Auto mated = 3539459330) message] The s ystem which generated this result transmitted reference range : 10*3/?L. The reference range was not used to interpret this result as normal/abnormal . GRAN MAT (NEUT) % 57.5 % (test code = 770-8) IMM GRAN % (test code 0.30 % = 5925941510) LYMPH % (test code = 31.4 % 736-9) MONO % (test code = 8.3 % 5905-5) EOS % (test code = 1.7 % 713-8) BASO % (test code = 0.8 % 706-2) GRAN MAT x10^3(ANC) 3.40 10*3/uL 1.88-7.09 (test code = 3017559996) IMM GRAN x10^3 (test 0.00-0.06 code = 2520234200) LYMPH x10^3 (test code 1.86 10*3/uL 1.32-3.29 = 731-0) MONO x10^3 (test code 0.49 10*3/uL 0.33-0.92 = 742-7) EOS x10^3 (test code = 0.10 10*3/uL 0.03-0.39 711-2) BASO x10^3 (test code 0.05 10*3/uL 0.01-0.07 = 704-7) Lab Interpretation Abnormal (test code = 29406-5) [facility] WITH [id number] 23:08:41 Test Item Value Reference Range Interpretation [...] RDW-SD (test code = 45.3 fL 39-49.9 22833-9) RDW-CV (test code = 15.1 % 12-15.5 788-0) PLT (test code = See_Comment [Automated 777-3) message] The sy stem which generated this result transmitted reference range : 166 - 358 10*3/ ?L. The reference r arianna was not used to interpret this result as normal/abnormal . MPV (test code = 10.4 fL 9.5-12.9 78862-3) NRBC/100 WBC (test See_Comment [Automat ed code = 0861864338) message] The system which generated this result transmitted reference range : 0.0 - 10.0 /100 WBCs. The refer ence range was not u sed to interpret th is result as normal/abnormal . NRBC x10^3 (test code See_Comment [Auto mated = 2821184801) message] The s ystem which generated this result transmitted reference range : 10*3/?L. The reference range was not used to interpret this result as normal/abnormal . GRAN MAT (NEUT) % 67.9 % (test code = 770-8) IMM GRAN % (test code 0.40 % = 0104701823) LYMPH % (test code = 21.9 % 736-9) MONO % (test code = 7.6 % 5905-5) EOS % (test code = 1.5 % 713-8) BASO % (test code = 0.7 % 706-2) GRAN MAT x10^3(ANC) 3.65 10*3/uL 1.88-7.09 (test code = 2393877114) IMM GRAN x10^3 (test 0-0.06 code = 0935312264) LYMPH x10^3 (test code 1.18 10*3/uL 1.32-3.29 L = 731-0) MONO x10^3 (test code 0.41 10*3/uL 0.33-0.92 = 742-7) EOS x10^3 (test code = 0.08 10*3/uL 0.03-0.39 711-2) BASO x10^3 (test code 0.04 10*3/uL 0.01-0.07 = 704-7) Lab Interpretation Abnormal (test code = 47136-8) [facility] WITH [id number] 23:08:41 Test Item Value Reference Range Interpretation Comments WBC (test code = See_Comment [Automated 8790-2) message] The sy stem which generated this result transmitted reference range : 4.30 - 11.10 10*3/?L. The reference range was not used to interpret this result as normal/abnormal . RBC (test code = See_Comment L [Automated 039-8) message] The sy stem which generated this [...] RDW-SD (test code = 45.3 fL 39-49.9 65152-1) RDW-CV (test code = 15.1 % 12-15.5 788-0) PLT (test code = See_Comment [Automated 777-3) message] The sy stem which generated this result transmitted reference range : 166 - 358 10*3/ ?L. The reference r arianna was not used to interpret this result as normal/abnormal . MPV (test code = 10.4 fL 9.5-12.9 45675-1) NRBC/100 WBC (test See_Comment [Automat ed code = 5620274494) message] The system which generated this result transmitted reference range : 0.0 - 10.0 /100 WBCs. The refer ence range was not u sed to interpret th is result as normal/abnormal . NRBC x10^3 (test code See_Comment [Auto mated = 0864291842) message] The s ystem which generated this result transmitted reference range : 10*3/?L. The reference range was not used to interpret this result as normal/abnormal . GRAN MAT (NEUT) % 67.9 % (test code = 770-8) IMM GRAN % (test code 0.40 % = 2690087193) LYMPH % (test code = 21.9 % 736-9) MONO % (test code = 7.6 % 5905-5) EOS % (test code = 1.5 % 713-8) BASO % (test code = 0.7 % 706-2) GRAN MAT x10^3(ANC) 3.65 10*3/uL 1.88-7.09 (test code = 2746244597) IMM GRAN x10^3 (test 0-0.06 code = 3481302191) LYMPH x10^3 (test code 1.18 10*3/uL 1.32-3.29 L = 731-0) MONO x10^3 (test code 0.41 10*3/uL 0.33-0.92 = 742-7) EOS x10^3 (test code = 0.08 10*3/uL 0.03-0.39 711-2) BASO x10^3 (test code 0.04 10*3/uL 0.01-0.07 = 704-7) Lab Interpretation Abnormal (test code = 49579-3) [facility] URINALYSIS W SPECIFIC [id number] 15:25:00 Test Item Value Reference Range Interpretation [...] U APPEAR (test code = clear 3267) [facility] URINALYSIS W SPECIFIC [id number] 15:25:00 Test Item Value Reference Range Interpretation [...] U APPEAR (test code = clear 3267) [facility] RUN DATE: 12/10/18 [facility] - LAB *LIVE* PAGE 1 RUN TIME: 1614 Specimen Inquiry RUN USER: INTERFACE PATIENT: JO-ANN NUR LOC: [facility] U #: [id number] AGE/SX: 53/F ROOM: RE12/06[facility]18[facility]: Bandar Roldan MD : 67 BED: DIS: STATUS: DAVY GRAMAJO TLOC: SPEC #: [id number] RECD: 12/07/18 STATUS: CELY LEVINE #: [id number] ABELINO: 12/06/[address]: Bandar Roldan MD ENTERED: 12/07/18 SP TYPE: SURG OTHR DR: Mirtha Puckett ORDERED: AB/PAS MELLO, SURG PATH LVL 4/5, PATH STAIN GROU COPIES TO: Mirtha Puckett [address] [facility] [address] [place] [id number] Bandar Roldan MD [address] [address] HISTOLOGY: TISSUEID BLK PCS BLANCHE LEV PROCEDURE [...] CONTINUED ON NEXT PAGE RUN DATE: 12/10/18 [facility] - LAB *LIVE* PAGE 2 RUN TIME: 1614 SpecimenInquiry RUN USER: INTERFACE SPEC #: [id number] PATIENT: JO-ANN NUR #[id number] (Continued)----- ------- CPT CODES CPT CODE(S): 81887L7 , 71303 , 68722 , , , , FINAL DIAGNOSIS A. [...] B. Duodenum biopsy. Received in formalin are t wo higgins tissue fragments, 0.3 cm each, all as B. C. Stomach biopsy. Received in formalin are three higgins tissue fragments, 0.2 - 0.5 cm, all as C. D. Random colon biopsy. Received in formalin are three higgins tissue fragments, 0.3 - 0.5 cm, all as D. E. Ileum biopsy. Received in formalin are four higgins tissuefragments, 0.1 - 0.3 cm, all as E. ba/nr Grossing performed at [facility], [address] [place] [address], [address], [place] [address]. [employer]: Laci Ross M.D. CONTINUED ON NEXT PAGE RUNDATE: 12/10/18 [facility] - LAB *LIVE* PAGE 3 RUN TIME: 1614 Specimen Inquiry RUN USER:INTERFACE SPEC #: [facility]:[id number] PATIENT: JO-ANN NUR #[id number] (Continued) MICROSCOPIC DESCRIPTION A. Jejunum biopsy. Sections [...] 12/10/18 1614 END OF REPORT GLUCOSE BEDSIDE [id number] 06:50:00 Test Item Value Reference Range Interpretation Comments GLUCOSE BEDSIDE TESTING (test code 167 mg/dL 70-110 H = GLUBED) UR HCG [id number] 16:27:00 Test Item Value Reference Range Interpretation Comments UR HCG QUAL (test code = HCGQLU) NEGATIVE NEGATIVE
[2023-08-02 17:56] LABS: Absolute Lymphocytes (CBC) 1.2 K/uL (0.7-4.9); Hematocrit 31.1 % (36.0-45.0); Lymphocytes % 15.8 % (15.3-44.8); MPV 6.5 fL (7.6-11.3); Platelets 294 thou/uL (152-406); RBC Red Blood Cell Count 4.38 M/uL (3.86-4.86)
--- NOTE | 2023-08-02 18:17 | RAD REPORT ---
EXAM DESCRIPTION: RAD - Chest Single View - 08/02/2023 5:58 pm CLINICAL HISTORY: CHEST PAIN Chest pain. COMPARISON: Chest Single View dated 08/07/2019; Chest Pa And Lat (2 Views) dated 12/24/2018; Chest Pa And Lat (2 Views) dated 12/24/2018; Chest Single View dated 12/22/2018 FINDINGS: Portable technique limits examination quality. Moderate pulmonary edema is suspected. The heart is moderately enlarged. No displaced fractures. IMPRESSION: Moderate CHF.
[2023-08-02 18:19] LABS: Albumin 4.2 g/dL (3.4-5.0); Bilirubin Total 0.4 mg/dL (0.2-1.0); Potassium 3.2 mEq/L (3.5-5.1); Protein, Total 8.8 g/dL (6.4-8.2); Troponin High Sensitivity 5.2 pg/mL (<58.9)
--- NOTE | 2023-08-02 18:25 | RAD REPORT ---
EXAM DESCRIPTION: US - Abdomen Exam Limited - 08/02/2023 6:14 pm CLINICAL HISTORY: ABD PAIN COMPARISON: ABDOMINAL EXAM LIMITED dated 09/26/2011 FINDINGS: The gallbladder demonstrates echogenic material likely a combination of stones and sludge. No pericholecystic fluid or gallbladder wall thickening. The common bile duct is mildly prominent me asuring 7-8 mm. The liver demonstrates no findings of intrahepatic biliary dilatation. IMPRESSION: Suspected gallbladder sludge and stones are present. No evidence of acute cholecystitis . Mildly prominent common bile duct measuring 7-8 mm.
[2023-08-02] MEDS ORDERED: ONDANSETRON 4 MG/2 ML VIAL ONE ×3 (18:53→22:10)
[2023-08-02] MEDS ORDERED: FAMOTIDINE 20 MG/2 ML VIAL IV ONE (18:53)
[2023-08-02] MEDS ORDERED: NA CHLORIDE 0.9% 1,000 ML ONE (18:53)
[2023-08-02] MEDS ORDERED: MORPHINE 4 MG/ML SYR ONE (19:14)
--- NOTE | 2023-08-02 19:20 | ER ---
Nurse's Notes [facility] Name: Kim Weldon Age: 58 yrs Sex: Female : 1965 Arrival Date: 08/02/2023 Time: 17:15 Bed 18 Private MD: Diagnosis: Hyponatremia;Nausea with vomiting, unspecified;Other cholelithiasis without obstruction Presentation: 08/02 17:29 Chief complaint: Constipation x 1 week, N/V x 2 days, upper abdominal pain and chest hb pain today. Coronavirus screen: At this time, the client does not indicate any symptoms associated with coronavirus-19. Ebola Screen: No symptoms or risks identified at this time. Initial Sepsis Screen: Does the patient meet any 2 criteria? No. Patient's initial sepsis screen is negative. Does the patient have a suspected source of infection? No. Patient's initial sepsis screen is negative. Risk Assessment: Do you want to hurt yourself or someone else? Patient reports no desire to harm self or others. Onset of symptoms was July 26, 2023. 17:29 Method Of Arrival: Ambulatory 17:29 Acuity: ALFRED 3 hb Triage Assessment: 08/03 15:03 GI: Reports. ld1 Historical: - Allergies: 08/02 17:31 PENICILLINS; hb - PMHx: 17:31 Bipolar disorder; Asthma; mitral valve prolapse; scoliosis; Hypertension; hb Hypothyroidism; CHF; Diabetes - IDDM; Fibromyalgia; Screenin:[facility] ED Fall Risk Assessment (Adult) History of falling in the last 3 months, db including since admission No falls in past 3 months (0 pts) Confusion or Disorientation No (0 pts) Intoxicated or Sedated No (0 pts) Impaired Gait No (0 pts) Mobility Assist Device Used No (0 pt). Abuse screen: Denies threats or abuse. Denies injuries from another. Nutritional screening: No deficits noted. Tuberculosis screening: No symptoms or risk factors identified. Assessment: 18:30 Reassessment: Patient appears in no apparent distress at this time. Patient and/or db family updated on plan of care and expected duration. Pain level reassessed. Patient is alert, oriented x 3, equal unlabored respirations, skin warm/dry/pink. General: Appears in no apparent distress. comfortable, Behavior is calm, cooperative. Pain: Complains of pain in abdomen. Neuro: Level of Consciousness is awake, alert, obeys commands, Oriented to person, place, time, situation. Cardiovascular:. Respiratory: Airway is patent Respiratory effort is even, unlabored, Respiratory pattern is regular, symmetrical. GI: Abdomen is round distended. 19:15 Reassessment: ASSUMED CARE OF PT. PT C/O EPIGASTRIC ABD PAIN. ORDERED PAIN MED GIVEN. jj7 NOW C/O N/V. COMMERCIAL FIELD INSPECTOR ALIZA INFORMED. ORDER FOR ZOAN. DAUGHTER AT BEDSIDE. CALL COOPER IN REACH. Vital Signs: 17:29 BP 139 / 80; Pulse 75; Resp 18; Temp 98; Pulse Ox 99% on R/A; Weight 83.91 kg; Height 5 hb ft. 4 in. ; Pain 10/10; 18:48 BP 141 / 81; Pulse 66; Resp 18; Pulse Ox 98% on R/A; db 19:29 BP 175 / 76; Pulse 82; Resp 17; Pulse Ox 93% ; jj7 17:29 Body Mass Index 31.75 (83.91 kg, 162.56 cm) hb 17:29 Pain Scale: Adult hb ED Course: 17:20 Patient arrived in ED. gm2 17:23 Nithya Christina FNP-C is [facility]. kb 17:23 Ad Garza MD is Attending Physician. kb 17:31 Triage completed. hb 17:52 Troponin High Sensitivity Sent. bc6 17:52 CBC with Diff Sent. bc6 17:52 CMP Sent. bc6 17:53 Lipase Sent. bc6 17:53 Inserted saline lock: 20 gauge in left antecubital area, using aseptic technique. Blood bc6 collected. 18:00 Chest Single View XRAY In Process Unspecified. EDMS 18:16 Abdomen Limited US In Process Unspecified. EDMS 18:35 Patient has correct armband on for positive identification. Bed in low position. Call db light in reach. Side rails up X 1. Pulse ox on. NIBP on. Warm blanket given. 18:36 Mili Coyne, LILIAN is Primary Nurse. db 19:05 CT Abd/Pelvis - IV Contrast Only In Process Unspecified. EDMS 19:19 Jason Avalos MD is Hospitalizing Provider. kb 08/03 15:04 No provider procedures requiring assistance completed. ld1 15:04 Patient admitted, IV remains in place. ld1 Administered Medications: 08/02 18:39 Not Given (hyponatremiaa): ns 0.9% 1000 ml IV at 1 bolus Per protocol; 1000 mL bolus kb 18:50 Drug: Famotidine IVP 20 mg IVP once; dilute with 10 mL 0.9% NaCl; give over 2 minutes db Route: IVP; Site: left antecubital; 18:50 Drug: Ondansetron IVP 4 mg IVP once; over 2 minutes Route: IVP; Site: left antecubital; db 18:50 Drug: NS 0.9% IV 1000 ml IV at 75 ml/hr continuous Route: IV; Rate: 75 ml/hr; Site: db left antecubital; 19:15 Drug: morphine IVP or IV 4 mg IVP once over 4 mins Route: IVP; Infused Over: 4 mins; jj7 Site: left antecubital; 19:57 Follow up: Response: Pain is decreased j7 19:25 Drug: Ondansetron IVP 4 mg IVP once; over 2 minutes Route: IVP; Site: left antecubital; jj7 19:56 Follow up: Response: Nausea is decreased jj7 Medication: 08/03 15:04 VIS not applicable for this client. 1 Outcome: 08/02 19:19 Decision to Hospitalize by Provider. 08/03 15:04 Admitted to Med/surg accompanied by nurse, via wheelchair, room 216, Report called to ld1 Vanna QUINTANA Condition: stable Instructed on the need for admit, 15:21 Patient left the ED. kd3 Signatures: Dispatcher [employer] EDWI Nithya Christina, GROUNDS AND NURSERY SPECIALIST-C GROUNDS AND NURSERY SPECIALIST-CkMaryuri Rincon RN LILIAN Ya Alarcon RN RN ld1 Malinda Perez RN RN kd3 Nelda Mercedes RN RN jj7 Mili Coyne RN RN Vilma Grajeda Ginger 2
--- NOTE | 2023-08-02 19:20 | EDPHYS ---
Physician Documentation [facility] Name: Kim Weldon Age: 58 yrs Sex: Female : 1965 Arrival Date: 08/02/2023 Time: 17:15 Bed 18 Private MD: ED Physician Ad Garza HPI: 08/02 21:14 This 58 yrs old Female presents to ER via Ambulatory with complaints of kb Vomiting, Abdominal Pain. 21:14 Patient is a 58-year-old female who presents for nausea, vomiting and abdominal pain kb that started yesterday. Reports chest pain started today. Denies diarrhea or fever. States she has not had a bowel movement in 1 week. States constipation is not new to her.. Historical: - Allergies: 17:31 PENICILLINS; hb - PMHx: 17:31 Bipolar disorder; Asthma; mitral valve prolapse; scoliosis; Hypertension; hb Hypothyroidism; CHF; Diabetes - IDDM; Fibromyalgia; ROS: 21:14 Constitutional: Negative for fever, chills, and weight loss, kb 21:14 Cardiovascular: Positive for chest pain, 21:14 Abdomen/GI: Positive for abdominal pain, nausea and vomiting, 21:14 All other systems are negative, Exam: 21:14 Constitutional: This is a well developed, well nourished patient who is awake, alert, kb and in no acute distress. Head/Face: Normocephalic, atraumatic. ENT: Moist Mucous membranes Cardiovascular: Regular rate Respiratory: Respirations even and unlabored. No increased work of breathing. Talking in full sentences Skin: Warm, dry with normal turgor. Normal color. MS/ Extremity: Pulses equal, no cyanosis. Neurovascular intact. Full, normal range of motion. Neuro: Awake and alert, GCS 15, oriented to person, place, time, and situation. Moves all extremities. Normal gait. 21:14 Abdomen/GI: Inspection: abdomen appears normal, Bowel sounds: normal, Palpation: soft, in all quadrants, mild abdominal tenderness, in the left upper quadrant, moderate abdominal tenderness, in the right upper quadrant, 22:56 ECG was reviewed by the Attending Physician. kb Vital Signs: 17:29 BP 139 / 80; Pulse 75; Resp 18; Temp 98; Pulse Ox 99% on R/A; Weight 83.91 kg; Height 5 hb ft. 4 in. ; Pain 10/10; 18:48 BP 141 / 81; Pulse 66; Resp 18; Pulse Ox 98% on R/A; db 19:29 BP 175 / 76; Pulse 82; Resp 17; Pulse Ox 93% ; jj7 17:29 Body Mass Index 31.75 (83.91 kg, 162.56 cm) hb 17:29 Pain Scale: Adult hb MDM: 17:23 Patient medically screened. kb 21:13 Differential diagnosis: gastritis, cholecystitis, pancreatitis, viral gastroenteritis, kb Cholelithiasis. Data reviewed: vital signs, nurses notes. Consideration of Admission/Observation Patient was admitted/placed on observation. Escalation of care including admission/observation considered. Management of patient was discussed with the following: Hospitalist: Dr. Avalos excepts patient for admission. Counseling: I had a detailed discussion with the patient and/or guardian regarding the historical points, exam findings, and any diagnostic results supporting the discharge/admit diagnosis, lab results, radiology results, the need for further work-up and treatment in the hospital. 08/02 17:32 Order name: CBC with Diff; Complete Time: 18:11 kb 08/02 17:32 Order name: CMP; Complete Time: 18:38 kb 08/02 17:32 Order name: Lipase; Complete Time: 18:38 kb 08/02 17:32 Order name: Troponin High Sensitivity; Complete Time: 18:38 kb 08/02 20:29 Order name: CBC with Automated Diff EDMS 08/02 20:29 Order name: CBC with Automated Diff EDMS 08/02 20:29 Order name: Comprehensive Metabolic Panel EDNV 08/02 20:29 Order name: Comprehensive Metabolic Panel EDNV 08/02 22:04 Order name: Glucose, Ancillary Testing; Complete Time: 22:07 EDMS 08/03 08:02 Order name: Glucose, Ancillary Testing EDMS 08/03 11:08 Order name: Glucose, Ancillary Testing EDMS 08/03 11:14 Order name: Hemoglobin A1c EDMS 08/03 11:21 Order name: Transferrin Sat/Iron Binding EDMS 08/03 11:21 Order name: Ferritin EDMS 08/02 17:32 Order name: Abdomen Limited US; Complete Time: 18:34 kb 08/02 17:32 Order name: CT Abd/Pelvis - IV Contrast Only; Complete Time: 19:34 kb 08/02 17:32 Order name: Chest Single View XRAY; Complete Time: 18:18 kb 08/02 17:32 Order name: EKG; Complete Time: 17:32 kb 08/02 17:32 Order name: IV Saline Lock; Complete Time: 17:52 kb 08/02 17:32 Order name: Labs collected and sent; Complete Time: 17:52 kb 08/02 17:32 Order name: EKG - Nurse/Tech; Complete Time: 17:52 kb EC:56 Rate is 71 beats/min. Rhythm is regular. QRS [place] is Normal. [place] interval is normal at kb 166 msec. QRS interval is normal at 82 msec. QT interval is normal at 493 msec. Administered Medications: 18:39 Not Given (hyponatremiaa): ns 0.9% 1000 ml IV at 1 bolus Per protocol; 1000 mL bolus kb 18:50 Drug: Famotidine IVP 20 mg IVP once; dilute with 10 mL 0.9% NaCl; give over 2 minutes db Route: IVP; Site: left antecubital; 18:50 Drug: Ondansetron IVP 4 mg IVP once; over 2 minutes Route: IVP; Site: left antecubital; db 18:50 Drug: NS 0.9% IV 1000 ml IV at 75 ml/hr continuous Route: IV; Rate: 75 ml/hr; Site: db left antecubital; 19:15 Drug: morphine IVP or IV 4 mg IVP once over 4 mins Route: IVP; Infused Over: 4 mins; jj7 Site: left antecubital; 19:57 Follow up: Response: Pain is decreased jj7 19:25 Drug: Ondansetron IVP 4 mg IVP once; over 2 minutes Route: IVP; Site: left antecubital; jj7 19:56 Follow up: Response: Nausea is decreased jj7 Disposition: 08/03 22:28 Co-signature as Attending Physician, Ad Garza MD I reviewed the patient's care rt provided by the Advanced Practice Provider and agree with the diagnosis and treatment plan. Disposition Summary: 08/02/23 19:19 Hospitalization Ordered Notes: Hospitalization Status: Inpatient Admission kb Provider: Jason Avalos Condition: Stable kb Problem: new kb Symptoms: are unchanged kb Bed/Room Type: Standard Location: Telemetry/MedSurg (Inpatient)(08/03/23 14:31) bc6 Room Assignment: 216(08/03/23 14:31) [facility] Diagnosis - Hyponatremia kb - Nausea with vomiting, unspecified kb - Other cholelithiasis without obstruction kb Forms: - Medication Reconciliation Form kb - SBAR form kb - Leadership Thank You Letter kb Signatures: Dispatcher [employer] EDMS Nithya Christina, HOME CARE SPECIALIST-C ELIA-Annalee Valdovinos RN RN cg Maryuri Angel RN RN hb Johnson, Juwairiyah, RN RN jj7 Benton, Danielle RN RN db dA Garza MD MD rt Vilma Haley [facility] Corrections: (The following items were deleted from the chart) 08/02 20:41 19:19 Telemetry/MedSurg (Inpatient) [facility] 20:41 19:19 kb 08/03 14:31 08/02 20:41 [facility] ER HOLD bc6 08/03 14:31 08/02 20:41 ERHOLD- [facility]
--- NOTE | 2023-08-02 19:26 | P.HP ---
Certification for Inpatient Patient admitted to: Inpatient With expected LOS: >2 Midnights Patient will require the following post-hospital care: None Practitioner: I am a practitioner with admitting privileges, knowledge of patient current condition, hospital course, and medical plan of care. Services: Services provided to patient in accordance with Admission requirements found in Title 42 Section 412.3 of the Code of Federal Regulations Patient History Date of Service: 08/02/23 Reason for admission: abdominal Pain History of Present Illness: 58-year-old female with past medical history of Bipolar disorder; Asthma; mitral valve prolapse; scoliosis; Hypertension, Hypothyroidism; CHF; Diabetes, Fibromyalgia brought to ER with abdominal pain and nausea and vomiting which has been going on for the last 2 days and has been progressively worsening and was brought to ER. Denies any fever or chills. Denies any chest pain or shortness of breath. Pain is located in mid abdomen with no radiation associated with abdominal distention and nausea. Patient is constipated. Patient assessed in the ER and was admitted for further management of abdominal pain and hyponatremia Allergies Penicillins Allergy (Severe, Verified 12/22/18 02:46) Rash Home medications list reviewed: Yes Home Medications: Duloxetine HCl 60 mg PO DAILY 05/03/16 Gabapentin 300 mg PO BID 05/03/16 Levothyroxine Sodium 175 mcg PO DAILY 05/03/16 carBAMazepine [Tegretol Xr] 200 mg PO BID 07/21/16 Dexlansoprazole [Dexilant] 60 mg PO DAILY 11/09/16 Loratadine 10 mg PO DAILY 11/12/16 Albuterol Sulfate [Proair Hfa] 1 inh IH BID 12/21/18 Empagliflozin [Jardiance] 10 mg PO DAILY 12/21/18 Ibuprofen [Motrin*] 1,000 mg PO BIDP PRN 12/21/18 Metformin HCl 1,000 mg PO BID 12/21/18 Quetiapine Fumarate [Seroquel] 300 mg PO BEDTIME 12/21/18 Furosemide [Lasix] 20 mg PO BIDL #60 tab 12/25/18 Nicotine [Nicoderm*] 21 mg TD DAILY #30 patch.td24 12/25/18 Potassium Chloride 10 meq PO DAILY #30 tablet.er 12/25/18 - Past Medical/Surgical History Diabetic: Yes Past Medical History: Reviewed- Non-Contributory -: HTN -: Bi-polar -: DM -: Hypothyroidism -: CHF -: Mitral valve prolapse Past Surgical History: Reviewed- Non-Contributory -: Mitral valve prolapse -: x 2 - Family History Mother -: Heart disease, Diabetes Father -: Cancer Sister -: Cancer - Social History Alcohol use: No CD- Drugs: No Caffeine use: Yes Review of Systems 10-point ROS is otherwise unremarkable General: Weakness, Malaise Gastrointestinal: Nausea, Abdominal Pain, Distention Genitourinary: Unremarkable Musculoskeletal: Unremarkable Integumentary: Unremarkable Neurological: Unremarkable Lymphatics: Unremarkable Physical Examination - Vital Signs Temperature: 98.6 F Blood Pressure: 146/78 Pulse: 82 Respirations: 18 Pulse Ox (%): 98 - Physical Exam General: Alert, In no apparent distress, Obese HEENT: Atraumatic, Normocephalic Neck: Supple Respiratory: Clear to auscultation bilaterally, Normal air movement Cardiovascular: Regular rate/rhythm, Normal S1 S2 Capillary refill: <2 Seconds Gastrointestinal: Hypoactive, No masses, No rebound, Distended, Tenderness Musculoskeletal: No clubbing, No swelling Integumentary: No rashes Neurological: Normal speech, Normal strength at 5/5 x4 extr, Normal tone, Cranial nerves 3-12 intact, Normal reflexes 2+, Normal affect Lymphatics: No axilla or inguinal lymphadenopathy - Studies Laboratory Data (last 24 hrs) 08/02/23 08/02/23 17:45 17:45 WBC 7.60 Hgb 10.2 L Hct 31.1 L Plt Count 294 Sodium 116 L* Potassium 3.2 L BUN 7 Creatinine 0.96 Glucose 138 H Total Bilirubin 0.4 AST 18 ALT 34 Alkaline Phosphatase 120 H Lipase 88 H Assessment and Plan - Problems (Diagnosis) (1) Acute abdominal pain Current Visit: Yes Status: Acute Plan: Pain control Monitor closely Started on IV hydration Morphine as needed CT findings noted Consistent with constipation Zofran as needed we will keep n.p.o. for now (2) Hyponatremia Current Visit: Yes Status: Acute Plan: Hyponatremia noted We will start on IV normal saline Monitor sodium levels Monitor neuro vital signs closely (3) Constipation Current Visit: Yes Status: Acute Plan: Started on MiraLAX and lactulose (4) Bipolar disorder Current Visit: No Status: Chronic Plan: Continue home medications Qualifiers: Active/Remission status: currently active Current bipolar episode type: mixed Current episode severity: mild Qualified Code(s): F31.61 - Bipolar disorder, current episode mixed, mild (5) Diabetes mellitus Current Visit: No Status: Chronic Plan: Insulin sliding scale Accu-Chek QA [facility] We will get an A1c in a.m. Qualifiers: Diabetes mellitus type: type 2 Diabetes mellitus custodial insulin use: with terminal clerk use Diabetes mellitus complication status: with unspecified complications (6) Hypothyroidism Current Visit: No Status: Chronic Plan: Continue home medication Qualifiers: Hypothyroidism type: unspecified Qualified Code(s): E03.9 - Hypothyroidism, unspecified Discharge Plan: Home Plan to discharge in: 48 Hours - Advance Directives Does patient have a Living Will: No Does patient have a Durable POA for Healthcare: No - Code Status/Comfort Care Code Status: Full Code Physician Review: Patient Assessed, Agree with Above Assessment and Plan Time Spent Managing Pts Care (In Minutes): 46
--- NOTE | 2023-08-02 19:31 | RAD REPORT ---
EXAM DESCRIPTION: CTAbdomen Pelvis W Contrast - 08/02/2023 7:03 pm CLINICAL HISTORY: Abdominal pain. ABD PAIN COMPARISON: Abdomen Pelvis W Contrast dated 08/07/2019; Abdomen Pelvis W Contrast dated 6 TECHNIQUE: Biphasic CT imaging of the abdomen and pelvis was performed with 100 ml non-ionic IV cont rast. All CT scans are performed using dose optimization technique as appropriate and may include automated exposure control or mA/KV adjustment according to patient size. FINDINGS: Mild interstitial pulmonary edema is seen in the lung bases.Small hiatal hernia. The liver, spleen, pancreas, adrenal glands and kidneys are within normal limits. No bowel obstruction, free air, free fluid or abscess. There is a large amount stool present througho ut the colon. The appendix is not identified as a discrete structure, however, no secondary findings of appendicitis are identified. Mild aortic atherosclerosis. No evidence of significant lymphadenopa thy. No suspicious bony findings. Small fat containing right inguinal hernia. IMPRESSION: There is significant fecal retention throughout the colon noted.
[2023-08-02] MEDS ORDERED: IBUPROFEN 200 MG TAB PO PRN (20:27)
[2023-08-02] MEDS ORDERED: GLUCAGON 1 MG/VIAL IM PRN (20:29)
[2023-08-02] MEDS ORDERED: D50W 25 GM/50 ML SYRINGE IV PRN (20:29)
[2023-08-02] MEDS ORDERED: D10W 125 ML IV PRN (20:46)
[2023-08-02] MEDS: ALBUTEROL INHALER 60 PUFF/8 GM IH SCH (21:00)
[2023-08-02] MEDS: INSULIN REGULAR (HUMAN) 100 UNIT/ML SQ SCH (21:00)
[2023-08-02] MEDS: NA CHLORIDE 0.9% 1,000 ML IV SCH (21:00)
[2023-08-02] MEDS: MORPHINE 2 MG/ML SYR IV PRN (21:59)
[2023-08-02] MEDS: ONDANSETRON 4 MG/2 ML VIAL IV PRN (22:00)
[2023-08-02] MEDS ORDERED: LACTULOSE 20 GM/30 ML UCUP PO PRN (22:04)
[2023-08-02] MEDS ORDERED: POLYETHYL GLY 3350 17 GM/DOSE PO PRN (22:05)
[2023-08-02] MEDS ORDERED: BISACODYL E.C. 5 MG TAB PO ONE (22:05)
[2023-08-02] MEDS ORDERED: MORPHINE 2 MG/ML SYR ONE (22:10)
[2023-08-02] MEDS ORDERED: INSULIN REGULAR (HUMAN) 100 UNIT/ML ONE (22:11)
[2023-08-02] MEDS ORDERED: GABAPENTIN 300 MG CAP PO ONE (23:00)
[2023-08-02] MEDS ORDERED: ZOLPIDEM TARTRATE 5 MG TABLET PO ONE (23:44)
[2023-08-02] MEDS ORDERED: ZOLPIDEM TARTRATE 5 MG TABLET ONE (23:59)
[2023-08-03 00:39] VITALS: BMI 31.7
[2023-08-03 04:44] LABS: Absolute Lymphocytes (CBC) 1.6 K/uL (0.7-4.9); Hematocrit 28.4 % (36.0-45.0); Lymphocytes % 21.8 % (15.3-44.8); MCV 71.1 fL (80-100); MPV 6.7 fL (7.6-11.3); Platelets 297 thou/uL (152-406)
[2023-08-03 05:09] LABS: Albumin 3.9 g/dL (3.4-5.0); Bilirubin Total 0.5 mg/dL (0.2-1.0); Potassium 3.7 mEq/L (3.5-5.1); Protein, Total 7.9 g/dL (6.4-8.2)
[2023-08-03] MEDS: NA CHLORIDE 0.9% 1,000 ML IV SCH ×2 (07:00→18:22)
[2023-08-03] MEDS: LEVOTHYROXINE SOD 0.075 MG TAB PO SCH (07:30)
[2023-08-03] MEDS: INSULIN REGULAR (HUMAN) 100 UNIT/ML SQ SCH ×4 (07:30→21:00)
[2023-08-03] MEDS: LEVOTHYROXINE SOD 0.1 MG TAB PO SCH (07:30)
[2023-08-03] MEDS ORDERED: DULOXETINE 30 MG CAP PO ONE (08:16)
[2023-08-03] MEDS ORDERED: GABAPENTIN 300 MG CAP ONE (08:16)
[2023-08-03] MEDS ORDERED: ALBUTEROL INHALER 60 PUFF/8 GM IH ONE (08:17)
[2023-08-03] MEDS ORDERED: NA CHLORIDE 0.9% 1,000 ML ONE ×2 (08:17→14:33)
[2023-08-03] MEDS ORDERED: ONDANSETRON 4 MG (ODT) TAB ONE (08:18)
[2023-08-03] MEDS ORDERED: ACETAMINOPHEN 500 MG TAB ONE (08:18)
[2023-08-03] MEDS: ONDANSETRON 4 MG/2 ML VIAL IV PRN ×2 (08:20→18:23)
[2023-08-03] MEDS: DULOXETINE 30 MG CAP PO SCH (08:20)
[2023-08-03] MEDS: ACETAMINOPHEN 500 MG TAB PO PRN (08:21)
[2023-08-03] MEDS: ALBUTEROL INHALER 60 PUFF/8 GM IH SCH ×2 (08:21→21:32)
[2023-08-03] MEDS: PANTOPRAZOLE 40MG TABLET PO SCH (08:29)
[2023-08-03] MEDS ORDERED: DEXLANSOPRAZOLE 60 MG PO SCH (09:00)
[2023-08-03] MEDS: GABAPENTIN 300 MG CAP PO SCH ×3 (09:00→21:29)
--- NOTE | 2023-08-03 10:25 | P.CNS ---
Date of Consult: 08/03/23 Reason for Consult: Hyponatremia Requesting Physician: Demetris Eaton Chief Complaint: abdominal Pain History of Present Illness: 58-year-old female with past medical history of Bipolar disorder; Asthma; mitral valve prolapse; scoliosis; Hypertension, Hypothyroidism; CHF; Diabetes, Fibromyalgia brought to ER with abdominal pain and nausea and vomiting which has been going on for the last 2 days and has been progressively worsening and was brought to ER. Denies any fever or chills. Denies any chest pain or shortness of breath. Pain is located in mid abdomen with no radiation associated with abdominal distention and nausea. Patient is constipated. Patient assessed in the ER and was admitted for further management of abdominal pain and hyponatremia Diagnosis: Hyponatremia;Nausea with vomiting, unspecified;Other cholelithiasis without obstruction Chief complaint: Constipation x 1 week, N/V x 2 days, upper abdominal pain and chest hb pain today. C Allergies Penicillins Allergy (Severe, Verified 12/22/18 02:46) Rash Home medications list reviewed: Yes Home Medications: Duloxetine HCl 60 mg PO DAILY 05/03/16 Gabapentin 300 mg PO BID 05/03/16 Levothyroxine Sodium 175 mcg PO DAILY 05/03/16 carBAMazepine [Tegretol Xr] 200 mg PO BID 07/21/16 Dexlansoprazole [Dexilant] 60 mg PO DAILY 11/09/16 Loratadine 10 mg PO DAILY 11/12/16 Albuterol Sulfate [Proair Hfa] 1 inh IH BID 12/21/18 Empagliflozin [Jardiance] 10 mg PO DAILY 12/21/18 Ibuprofen [Motrin*] 1,000 mg PO BIDP PRN 12/21/18 Metformin HCl 1,000 mg PO BID 12/21/18 Quetiapine Fumarate [Seroquel] 300 mg PO BEDTIME 12/21/18 Furosemide [Lasix] 20 mg PO BIDL #60 tab 12/25/18 Nicotine [Nicoderm*] 21 mg TD DAILY #30 patch.td24 12/25/18 Potassium Chloride 10 meq PO DAILY #30 tablet.er 12/25/18 - Past Medical/Surgical History Diabetic: Yes -: HTN -: Bi-polar -: DM II -: Hypothyroidism -: Diastolic CHF/ Pulmonary HTN -: Mitral valve prolapse -: Hx Hyponatremia (Dr. Kruse/ Dr. Talbert) -: Mitral valve prolapse -: x 2 - Family History Mother Medical History: Heart disease, Diabetes Father Medical History: Cancer Sister Medical History: Cancer - Social History Smoking Status: Current every day smoker Alcohol use: No CD- Drugs: No Caffeine use: Yes Place of Residence: Home Review of Systems 10-point ROS is otherwise unremarkable General: Malaise Gastrointestinal: Nausea, Constipation Physical Examination Temp Pulse Resp BP Pulse Ox 98.2 F 76 16 102/51 L 96 08/03/23 07:42 08/03/23 09:46 08/03/23 07:42 08/03/23 09:46 08/03/23 09:46 General: In no apparent distress, Oriented x3, Cooperative HEENT: Atraumatic Neck: Supple Respiratory: Clear to auscultation bilaterally Cardiovascular: No edema, Regular rate/rhythm Gastrointestinal: Soft and benign, Non-distended Musculoskeletal: No clubbing, No contractures Integumentary: No rashes, No cyanosis Neurological: Normal speech Laboratory Data (last 24 hrs) 08/02/23 08/02/23 17:45 17:45 WBC 7.60 Hgb 10.2 L Hct 31.1 L Plt Count 294 Sodium 116 L* Potassium 3.2 L BUN 7 Creatinine 0.96 Glucose 138 H Total Bilirubin 0.4 AST 18 ALT 34 Alkaline Phosphatase 120 H Lipase 88 H Imagings Data: EXAM DESCRIPTION: RAD - Chest Single View - 08/02/2023 5:58 pm CLINICAL HISTORY: CHEST PAIN Chest pain. COMPARISON: Chest Single View dated 08/07/2019; Chest Pa And Lat (2 Views) dated 12/24/2018; Chest Pa And Lat (2 Views) dated 12/24/2018; Chest Single View dated 12/22/2018 FINDINGS: Portable technique limits examination quality. Moderate pulmonary edema is suspected. The heart is moderately enlarged. No displaced fractures. IMPRESSION: Moderate CHF. EXAM DESCRIPTION: CTAbdomen Pelvis W Contrast - 08/02/2023 7:03 pm CLINICAL HISTORY: Abdominal pain. ABD PAIN COMPARISON: Abdomen Pelvis W Contrast dated 08/07/2019; Abdomen Pelvis W Contrast dated 05/17/2016 TECHNIQUE: Biphasic CT imaging of the abdomen and pelvis was performed with 100 ml non-ionic IV contrast. All CT scans are performed using dose optimization technique as appropriate and may include automated exposure control or mA/KV adjustment according to patient size. FINDINGS: Mild interstitial pulmonary edema is seen in the lung bases.Small hiatal hernia. The liver, spleen, pancreas, adrenal glands and kidneys are within normal limits. No bowel obstruction, free air, free fluid or abscess. There is a large amount stool present throughout the colon. The appendix is not identified as a discrete structure, however, no secondary findings of appendicitis are identified. Mild aortic atherosclerosis. No evidence of significant lymphadenopathy. No suspicious bony findings. Small fat containing right inguinal hernia. IMPRESSION: There is significant fecal retention throughout the colon noted. EXAM DESCRIPTION: US - Abdomen Exam Limited - 08/02/2023 6:14 pm CLINICAL HISTORY: ABD PAIN COMPARISON: ABDOMINAL EXAM LIMITED dated 09/26/2011 FINDINGS: The gallbladder demonstrates echogenic material likely a combination of stones and sludge. No pericholecystic fluid or gallbladder wall thickening. The common bile duct is mildly prominent measuring 7-8 mm. The liver demonstrates no findings of intrahepatic biliary dilatation. IMPRESSION: Suspected gallbladder sludge and stones are present. No evidence of acute cholecystitis. Mildly prominent common bile duct measuring 7-8 mm. LEFT VENTRICULAR WALL MOTION: NORMAL DOPPLER/COLOR FLOW: NO AORTIC STENOSIS OR AORTIC REGURGIATION. MODERATE MITRAL STENOSIS. ESTIMATED MITRAL VALVE AREA 1.6 CENTIMETERS SQUARED. MILD MITRAL AND TRICUSPID REGURGITATION. ESTIMATED RIGHT VENTRICULAR SYSTOLIC PRESSURE 70 mmHg. SEVERE PULMONARY HYPERTENSION. COMMENTS: NORMAL LEFT VENTRICULAR EJECTION FRACTION. DILATED LEFT ATRIUM. AORTIC SCLEROSIS WITH NO AORTIC STENOSIS OR AORTIC REGURGIATION. MITRAL ANNULAR CALCIFICATION. MODERATE MITRAL STENOSIS. MILD MITRAL AND TRICUSPID REGURGITATION. SEVERE PULMONARY HYPERTENSION. Conclusions/Impression: Hyponatremia in the setting of N/V -Continue IVF with NS -Send repeat BMP now HTN with CHF -Monitor BP Diastolic CHF, chronic Pulmonary HTN Moderate Mitral Stenosis -Daily weight DM II -RISS -Check A1C Anemia in chronic illness Hx Iron Deficiency -Monitor H&H -Check iron status Cigarette Smoker -Recommend cessation -Nicotine TD prn Fecal Retention -Start Colace BID -MagOx X1 Hospitalist and ER notes reviewed Thank you kindly for the consultation
[2023-08-03] MEDS: DOCUSATE NA 100 MG CAP PO SCH ×2 (10:45→21:00)
[2023-08-03] MEDS ORDERED: MAGNESIUM OXIDE 400 MG TAB PO ONE (11:00)
[2023-08-03] MEDS ORDERED: MAGNESIUM OXIDE 400 MG TAB ONE (11:16)
[2023-08-03 11:21] LABS: Ferritin 19.3 ng/mL (8-388)
--- NOTE | 2023-08-03 11:40 | P.PN ---
Subjective Date of Service: 08/03/23 Chief Complaint: abdominal Pain Subjective: No new changes, Improving, Doing well Patient is alert and oriented Sitting up in the bed Patient denies any shortness of breath or chest discomfort SPO2 90% on room air Blood pressure on the lower side-systolic lower 90s Discussed with the nursing staff Review of Systems 10-point ROS is otherwise unremarkable Physical Examination - Vital Signs Temperature: 98.2 F Blood Pressure: 102/51 Pulse: 76 Respirations: 16 Pulse Ox (%): 96 - Physical Exam General: Alert, Oriented x3, Cooperative HEENT: Atraumatic, Normocephalic Neck: Supple, 2+ carotid pulse no bruit Respiratory: Clear to auscultation bilaterally, Normal air movement Cardiovascular: No edema, Regular rate/rhythm, Normal S1 S2 Capillary refill: <2 Seconds Gastrointestinal: Normal bowel sounds, Soft and benign Musculoskeletal: No clubbing, No swelling, No erythema Integumentary: No rashes, No breakdown Neurological: Normal gait, Normal speech, Normal tone, Normal affect Lymphatics: No axilla or inguinal lymphadenopathy - Studies Laboratory Data (last 24 hrs) 08/02/23 08/02/23 17:45 17:45 WBC 7.60 Hgb 10.2 L Hct 31.1 L Plt Count 294 Sodium 116 L* Potassium 3.2 L BUN 7 Creatinine 0.96 Glucose 138 H Total Bilirubin 0.4 AST 18 ALT 34 Alkaline Phosphatase 120 H Lipase 88 H Assessment And Plan - Current Problems (Diagnosis) (1) Acute abdominal pain Current Visit: Yes Status: Acute Plan: Acute, improving Continue pain management as needed Pain control, Morphine as needed Monitor closely Started on IV hydration CT findings noted Consistent with constipation Zofran as needed (2) Hyponatremia Current Visit: Yes Status: Acute Plan: Acute, sodium 121 today , We will start on IV normal saline Monitor sodium levels Monitor neuro vital signs closely We will repeat sodium level (3) Diabetes mellitus Current Visit: No Status: Chronic Plan: Chronic, controlled on insulin at home Patient denies hypoglycemia Patient reports that she is compliant insulin sliding scale Accu-Chek QA [facility] Hypoglycemic precaution Qualifiers: Diabetes mellitus type: type 2 Diabetes mellitus intermediate designer insulin use: with intermediate designer use Diabetes mellitus complication status: with hyperglycemia Qualified Code(s): E11.65 - Type 2 diabetes mellitus with hyperglycemia; Z79.4 - alf (current) use of insulin (4) Anemia in chronic illness Current Visit: Yes Status: Acute Plan: Chronic, controlled hemoglobin 9.6, hematocrit 28.4 today We will continue to monitor Patient to see GI doctor for colonoscopy as outpatient (5) HTN (hypertension) Current Visit: Yes Status: Acute Plan: Chronic, controlled on the current medication GFR 68 We will continue to monitor Qualifiers: Hypertension type: primary hypertension Qualified Code(s): I10 - Essential (primary) hypertension (6) CHF with left ventricular diastolic dysfunction, NYHA class 1 Current Visit: Yes Status: Acute Plan: Chronic, controlled EF 65% in May 2023 with patient's cardiology On O2 2 L to keep the SPO2 above 92% No edema Continue the current management Low-sodium diet (7) Pulmonary hypertension Current Visit: Yes Status: Acute Plan: Chronic, controlled On oxygen 2 L/min On home CPAP machine at at bedtime and as needed Discharge Plan: Home Plan to discharge in: 48 Hours - Code Status/Comfort Care Code Status Assessed: Yes (Full code) Code Status: Full Code Physician Review: Patient Assessed, Agree with Above Assessment and Plan Critical Care: No Time Spent Managing PTS Care (In Minutes): 35 (Minutes)
[2023-08-03] MEDS: MORPHINE 2 MG/ML SYR IV PRN ×2 (11:47→18:22)
[2023-08-03 17:47] LABS: Potassium 4.5 mEq/L (3.5-5.1)
[2023-08-03] MEDS: QUETIAPINE 100MG TAB PO SCH (21:29)
[2023-08-04 02:43] LABS: Albumin 3.3 g/dL (3.4-5.0); Bilirubin Total 0.4 mg/dL (0.2-1.0); Magnesium 2.3 mg/dL (1.6-2.4); Potassium 3.8 mEq/L (3.5-5.1); Protein, Total 6.8 g/dL (6.4-8.2); Thyroid Stimulating Hormone 3.45 uIU/mL (0.358-3.740); Uric Acid 2.2 mg/dL (2.6-6.0)
[2023-08-04] MEDS: NA CHLORIDE 0.9% 1,000 ML IV SCH (03:31)
[2023-08-04 07:23] LABS: UR CL RANDOM < 10 mmol/L (25-40); UR SODIUM < 15 mmol/L (27-287)
[2023-08-04 07:24] LABS: Specific Gravity 1.006 (1.005-1.030); Urine Bacteria None Seen /HPF (<20); Urine Bilirubin NEGATIVE (Negative); Urine Blood Negative (Negative); Urine Clarity Clear (Clear); Urine Color Colorless (Yellow); Urine Glucose NEGATIVE (Negative); Urine Protein NEGATIVE (Negative); Urine RBC None Seen /HPF (None Seen); Urine Urobilinogen Normal (Normal); Urine pH 6.5 (5.0-7.0)
[2023-08-04] MEDS: INSULIN REGULAR (HUMAN) 100 UNIT/ML SQ SCH ×4 (07:30→21:00)
[2023-08-04] MEDS: CARBAMAZEPINE 100 MG PO SCH ×2 (09:00→21:00)
[2023-08-04] MEDS: LEVOTHYROXINE SOD 0.1 MG TAB PO SCH (09:07)
[2023-08-04] MEDS: DULOXETINE 30 MG CAP PO SCH (09:07)
[2023-08-04] MEDS: GABAPENTIN 300 MG CAP PO SCH ×2 (09:07→20:29)
[2023-08-04] MEDS: PANTOPRAZOLE 40MG TABLET PO SCH (09:07)
[2023-08-04] MEDS: LEVOTHYROXINE SOD 0.075 MG TAB PO SCH (09:07)
[2023-08-04] MEDS: DOCUSATE NA 100 MG CAP PO SCH ×2 (09:07→20:29)
[2023-08-04] MEDS: ALBUTEROL INHALER 60 PUFF/8 GM IH SCH ×2 (09:08→20:30)
[2023-08-04] MEDS: ONDANSETRON 4 MG/2 ML VIAL IV PRN ×2 (09:08→18:33)
[2023-08-04] MEDS: MORPHINE 2 MG/ML SYR IV PRN ×3 (09:08→21:33)
--- NOTE | 2023-08-04 09:15 | P.PN ---
Subjective Date of Service: 08/04/23 Chief Complaint: abdominal Pain Subjective: No new changes, Improving Physical Examination - Vital Signs Temperature: 97.8 F Blood Pressure: 122/61 Pulse: 70 Respirations: 18 Pulse Ox (%): 96 - Physical Exam General: Alert HEENT: Atraumatic Neck: Supple Respiratory: Normal air movement Cardiovascular: Regular rate/rhythm, Normal S1 S2 Gastrointestinal: Soft and benign Musculoskeletal: No swelling Neurological: Normal speech Assessment And Plan - Plan Hyponatremia Abdominal pain Pulm hypertension Diastolic CHF Nausea with vomiting Plan: Patient has significant improvement in symptoms of nausea with vomiting. Serum sodium is now within acceptable limits at more than 130 today. Nephrology following for management recommendation. Abdominal pain is much improved and patient is able to tolerate oral feeds. We will continue symptomatic therapy. We will follow vital signs per unit protocol and continue present antihypertensive medication. Volume management as per nephrology recommendation. Concerns for possible adrenal suppression being entertained as per nephrology, further management/work-up per specialist recommendation Prophylaxis: Lovenox for DVT prophylaxis CODE STATUS: Full code Disposition: For possible discharge in next 24hr. Physician Review: Patient Assessed, Agree with Above Assessment and Plan
--- NOTE | 2023-08-04 11:32 | P.PN ---
Nephrology note (S) Pt continues to cite some nausea, dry heaves, abd distention. No abd pain currently but reports N/V/abd pain over several mo period. Na level has improved on isotonic IVF. Results discussed in detail (O) Vitals, imaging reviewed in the EMR General: In no apparent distress, cooperative HEENT: Atraumatic, sclera anicteric Neck: Supple Respiratory: b/l air entry without rales Cardiovascular: No edema, Regular rate/rhythm, mild cardiac murmur Gastrointestinal: Soft, obese, mild distention Musculoskeletal: No clubbing, No contractures Integumentary: No rashes, no hyperpigmentation of skin noted Neurological: Normal speech, awake, alert Laboratory Data (last 24 hrs) Reviewed in the EMR EXAM DESCRIPTION: US - Abdomen Exam Limited - 08/02/2023 6:14 pm CLINICAL HISTORY: ABD PAIN COMPARISON: ABDOMINAL EXAM LIMITED dated 09/26/2011 FINDINGS: The gallbladder demonstrates echogenic material likely a combination of stones and sludge. No pericholecystic fluid or gallbladder wall thickening. The common bile duct is mildly prominent measuring 7-8 mm. The liver demonstrates no findings of intrahepatic biliary dilatation. IMPRESSION: Suspected gallbladder sludge and stones are present. No evidence of acute cholecystitis. Mildly prominent common bile duct measuring 7-8 mm. LEFT VENTRICULAR WALL MOTION: NORMAL DOPPLER/COLOR FLOW: NO AORTIC STENOSIS OR AORTIC REGURGIATION. MODERATE MITRAL STENOSIS. ESTIMATED MITRAL VALVE AREA 1.6 CENTIMETERS SQUARED. MILD MITRAL AND TRICUSPID REGURGITATION. ESTIMATED RIGHT VENTRICULAR SYSTOLIC PRESSURE 70 mmHg. SEVERE PULMONARY HYPERTENSION. COMMENTS: NORMAL LEFT VENTRICULAR EJECTION FRACTION. DILATED LEFT ATRIUM. AORTIC SCLEROSIS WITH NO AORTIC STENOSIS OR AORTIC REGURGIATION. MITRAL ANNULAR CALCIFICATION. MODERATE MITRAL STENOSIS. MILD MITRAL AND TRICUSPID REGURGITATION. SEVERE PULMONARY HYPERTENSION. Conclusions/Impression: 1. Acute or sub-acute severe hypotonic hyponatremia in the setting of hypovolemia, sodium depleted state with reduced salt intake/chronic diuretic use +/- other. -Low random Dalia and UCl. Uosm > 100 but < 300. Low serum uric acid -Na level has been steadily rising on isotonic IVF. Rate of correction generally acceptable. Will d/c NS IVF now. Will temp place on salt tabs 2. Hypokalemia in the setting of GI losses, diuretic use, other -Resolved, Mg level ok. Will place on scheduled KCL 3. 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 N/V unspecified. Low random cortisol level < 3. However, no persistent low BP/low BG Nonetheless, recommend cosyntropin stim test to assess response. Isidoro Talbert MD, BHARTI
[2023-08-04] MEDS ORDERED: COSYNTROPIN 0.25 MG VIAL IV ONE (12:00)
[2023-08-04] MEDS: POTASSIUM CL SA 10 MEQ TAB PO SCH (12:49)
[2023-08-04 15:05] VITALS: O2SAT 96
[2023-08-04] MEDS: SODIUM CHLORIDE 1 GM TAB PO SCH (18:33)
[2023-08-04] MEDS: QUETIAPINE 100MG TAB PO SCH (20:29)
[2023-08-05] MEDS: LEVOTHYROXINE SOD 0.1 MG TAB PO SCH (07:30)
[2023-08-05] MEDS: INSULIN REGULAR (HUMAN) 100 UNIT/ML SQ SCH ×4 (07:30→21:00)
[2023-08-05] MEDS: LEVOTHYROXINE SOD 0.075 MG TAB PO SCH (07:30)
[2023-08-05] MEDS: CARBAMAZEPINE 100 MG PO SCH ×2 (09:00→21:00)
[2023-08-05] MEDS: ALBUTEROL INHALER 60 PUFF/8 GM IH SCH ×2 (09:00→21:00)
[2023-08-05] MEDS: PANTOPRAZOLE 40MG TABLET PO SCH (09:21)
[2023-08-05] MEDS: SODIUM CHLORIDE 1 GM TAB PO SCH ×2 (09:21→15:53)
[2023-08-05] MEDS: DULOXETINE 30 MG CAP PO SCH (09:21)
[2023-08-05] MEDS: DOCUSATE NA 100 MG CAP PO SCH ×2 (09:21→21:00)
[2023-08-05] MEDS: GABAPENTIN 300 MG CAP PO SCH ×2 (09:21→21:17)
[2023-08-05] MEDS: POTASSIUM CL SA 10 MEQ TAB PO SCH (09:21)
[2023-08-05] MEDS: ONDANSETRON 4 MG/2 ML VIAL IV PRN (10:25)
[2023-08-05] MEDS: MORPHINE 2 MG/ML SYR IV PRN ×3 (10:31→21:17)
--- NOTE | 2023-08-05 14:18 | EKG ---
Test Date: 2023-08-02 Test Time: 18:51:47 Teachers' Assistant: GIOVANA MEASUREMENT RESULTS: Intervals: Rate: 71 ID: [id number] QRSD: 82 QT: 454 QTc: 493 Ryder: P: 71 ID: [id number] QRS: 36 T: 36 INTERPRETIVE STATEMENTS: Normal sinus rhythm Prolonged QT Abnormal ECG Compared to ECG 06/27/2023 00:53:08 Prolonged QT interval now present Electronically Signed On 08-05-23 14:09:53 [employer] SYSTEM ADMIN by Frankie Serrano
[2023-08-05] MEDS: QUETIAPINE 100MG TAB PO SCH (21:17)
[2023-08-06] MEDS: INSULIN REGULAR (HUMAN) 100 UNIT/ML SQ SCH ×4 (07:30→21:00)
[2023-08-06] MEDS: ACETAMINOPHEN 500 MG TAB PO PRN (08:17)
[2023-08-06] MEDS: ONDANSETRON 4 MG/2 ML VIAL IV PRN (08:17)
[2023-08-06] MEDS: MORPHINE 2 MG/ML SYR IV PRN ×3 (08:23→16:52)
[2023-08-06] MEDS: ALBUTEROL INHALER 60 PUFF/8 GM IH SCH ×2 (09:00→21:00)
[2023-08-06] MEDS: CARBAMAZEPINE 100 MG PO SCH ×2 (09:00→21:00)
[2023-08-06] MEDS: PANTOPRAZOLE 40MG TABLET PO SCH (09:13)
[2023-08-06] MEDS: DULOXETINE 30 MG CAP PO SCH (09:13)
[2023-08-06] MEDS: DOCUSATE NA 100 MG CAP PO SCH ×2 (09:13→21:37)
[2023-08-06] MEDS: SODIUM CHLORIDE 1 GM TAB PO SCH (09:13)
[2023-08-06] MEDS: GABAPENTIN 300 MG CAP PO SCH ×2 (09:13→21:36)
[2023-08-06] MEDS: LEVOTHYROXINE SOD 0.075 MG TAB PO SCH (09:13)
[2023-08-06] MEDS: POTASSIUM CL SA 10 MEQ TAB PO SCH (09:13)
[2023-08-06] MEDS: LEVOTHYROXINE SOD 0.1 MG TAB PO SCH (09:13)
--- NOTE | 2023-08-06 14:26 | P.PN ---
Subjective Date of Service: 08/06/23 Chief Complaint: abdominal Pain Subjective: No new changes, Improving Physical Examination - Vital Signs Temperature: 98.5 F Blood Pressure: 127/74 Pulse: 103 Respirations: 20 Pulse Ox (%): 90 - Physical Exam General: Alert HEENT: Atraumatic, Normocephalic Neck: Supple Respiratory: Normal air movement Cardiovascular: Regular rate/rhythm, Normal S1 S2 Gastrointestinal: Soft and benign Musculoskeletal: No swelling Neurological: Normal speech Assessment And Plan - Plan Hyponatremia Abdominal pain Pulm hypertension Diastolic CHF Nausea with vomiting Plan: Patient has significant improvement in symptoms of nausea with vomiting. Serum sodium is now within acceptable limits at more than 130 today. Nephrology following for management recommendation. Abdominal pain is much improved and patient is able to tolerate oral feeds. We will continue symptomatic therapy. We will follow vital signs per unit protocol and continue present antihypertensive medication. Volume management as per nephrology recommendation. Concerns for possible adrenal suppression being entertained as per nephrology, further management/work-up per specialist recommendation Prophylaxis: Lovenox for DVT prophylaxis CODE STATUS: Full code Disposition: For possible discharge in next 24hr. Physician Review: Patient Assessed, Agree with Above Assessment and Plan
--- NOTE | 2023-08-06 14:28 | P.PN ---
Subjective Date of Service: 08/06/23 Chief Complaint: abdominal Pain Subjective: No new changes, Improving Physical Examination - Vital Signs Temperature: 98.5 F Blood Pressure: 127/74 Pulse: 103 Respirations: 20 Pulse Ox (%): 90 - Physical Exam General: Alert, Oriented x3 HEENT: Atraumatic Neck: Supple Respiratory: Normal air movement Cardiovascular: Regular rate/rhythm, Normal S1 S2 Gastrointestinal: Soft and benign Musculoskeletal: No swelling Neurological: Normal speech, Normal strength at 5/5 x4 extr Assessment And Plan - Plan Hyponatremia-resolving. Abdominal pain Pulm hypertension Diastolic CHF Nausea with vomiting. abd pain Anxiety Plan: Patient has significant improvement in symptoms of nausea with vomiting. Serum sodium is now within acceptable limits at more than 130 on last check. Nephrology following for management recommendation. Abdominal pain is much improved and patient is able to tolerate oral feeds. We will continue symptomatic therapy. We will follow vital signs per unit protocol and continue present antihypertensive medication. Volume management as per nephrology recommendation. Concerns for possible adrenal suppression being entertained as per nephrology, further management/work-up per specialist recommendation Anxiety episodes are still worrisome, we will restart home anti-anxiety medications. Prophylaxis: Lovenox for DVT prophylaxis CODE STATUS: Full code Disposition: For possible discharge in next 24hr. Physician Review: Patient Assessed, Agree with Above Assessment and Plan
[2023-08-06] MEDS ORDERED: BISACODYL 10 MG RECTAL SUPP PR ONE (17:25)
[2023-08-06] MEDS ORDERED: MAGNESIUM CITRATE 300 ML BOT PO SCH (18:00)
[2023-08-06] MEDS: BUSPIRONE HCL 15 MG TABLET PO SCH (21:36)
[2023-08-06] MEDS: QUETIAPINE 100MG TAB PO SCH (21:36)
[2023-08-06] MEDS: FENTANYL CITR 100 MCG/2 ML IV PRN (21:45)
[2023-08-07] MEDS: FENTANYL CITR 100 MCG/2 ML IV PRN ×4 (02:33→22:37)
--- NOTE | 2023-08-07 06:41 | P.PN ---
Date of Service: 08/07/23 Subjective: Physical Exam: Vitals: reviewed GEN: Alert, oriented, NAD HEENT: Normal conjunctiva, sclera anicteric CV: Regular rate & rhythm, no edema Pulm: Nonlabored respiraitons, clear bilaterally ABD: Soft, nontender, nondistended MSK: No joint tenderness Integumentary: No rashes Neuro: Normal speech, normal affect Problem List: Hyponatremia-resolving Abdominal pain Pulm hypertension Diastolic CHF Nausea with vomiting. Anxiety Plan: CT abdomen (08/02): significant fecal retention throughout the colon noted Abdominal u/s (08/02): Suspected gallbladder sludge and stones are present. No evidence of acute cholecystitis. Mildly prominent common bile duct measuring 7-8 mm Nephrology consulted nausea/vomiting improving Serum sodium improving tolerating oral feeds continue home antihypertensives continue PPI colace BID, PRN glycolax Concerns for possible adrenal suppression being entertained as per nephrology, further management/work-up per specialist recommendation confirm home medications, restart as appropriate Lovenox for DVT prophylaxis
[2023-08-07] MEDS: INSULIN REGULAR (HUMAN) 100 UNIT/ML SQ SCH ×4 (07:30→20:49)
[2023-08-07] MEDS: ALBUTEROL INHALER 60 PUFF/8 GM IH SCH ×2 (09:00→20:49)
[2023-08-07] MEDS: DOCUSATE NA 100 MG CAP PO SCH ×2 (09:00→20:47)
[2023-08-07] MEDS: CARBAMAZEPINE 100 MG PO SCH ×2 (09:00→20:49)
[2023-08-07] MEDS: BUSPIRONE HCL 15 MG TABLET PO SCH ×2 (09:20→20:47)
[2023-08-07] MEDS: LEVOTHYROXINE SOD 0.075 MG TAB PO SCH (09:21)
[2023-08-07] MEDS: GABAPENTIN 300 MG CAP PO SCH ×2 (09:21→20:47)
[2023-08-07] MEDS: PANTOPRAZOLE 40MG TABLET PO SCH (09:22)
[2023-08-07] MEDS: POTASSIUM CL SA 10 MEQ TAB PO SCH (09:22)
[2023-08-07] MEDS: LEVOTHYROXINE SOD 0.1 MG TAB PO SCH (09:22)
[2023-08-07] MEDS: DULOXETINE 30 MG CAP PO SCH (09:22)
[2023-08-07] MEDS ORDERED: SOD FERRIC GLUC COMPLX/SUCROSE 250 MG in NA CHLORIDE 0.9% 250 ML IV ONE (10:30)
[2023-08-07] MEDS ORDERED: BUMETANIDE 1 MG TABLET PO ONE (11:45)
--- NOTE | 2023-08-07 12:22 | RAD REPORT ---
EXAM DESCRIPTION: CT - Head Brain Wo Cont - 08/07/2023 11:09 am CLINICAL HISTORY: hyponatremia COMPARISON: No comparisons TECHNIQUE: Noncontrast head CT images were obtained without IV contrast. Multiplanar reformats were generated and reviewed. All CT scans are performed using dose optimization technique as appropriate and may include automated exposure control or mA/KV adjustment according to patient size. FINDINGS: No intracranial hemorrhage, mass, or edema. Midline structures are unremarkable. Normal ventricular caliber for age. Em-white matter differentiation is preserved, without evidence of acute infarct. No abnormal extra- axial fluid collections. Mastoid air cells and visualized portions of the paranasal sinuses are clear. No acute bony findings. IMPRESSION: No evidence of an acute intracranial process.
[2023-08-07 15:17] LABS: Absolute Lymphocytes (CBC) 1.4 K/uL (0.7-4.9); Hematocrit 25.6 % (36.0-45.0); Lymphocytes % 24.6 % (15.3-44.8); MPV 6.7 fL (7.6-11.3); Platelets 236 thou/uL (152-406)
[2023-08-07 15:33] LABS: Albumin 3.6 g/dL (3.4-5.0); Bilirubin Total 0.5 mg/dL (0.2-1.0); Potassium 4.6 mEq/L (3.5-5.1); Protein, Total 7.3 g/dL (6.4-8.2)
[2023-08-07] MEDS: QUETIAPINE 100MG TAB PO SCH (20:47)
--- NOTE | 2023-08-07 21:37 | P.PN ---
Date of Service: 08/07/23 Vital Signs Temp Pulse Resp BP Pulse Ox 98.3 F 78 16 123/76 95 08/07/23 16:00 08/07/23 16:00 08/07/23 17:45 08/07/23 16:00 08/07/23 17:45 Medications Acetaminophen (Acetaminophen 500 Mg Tab) 500 mg PO Q6H PRN PRN Reason: Pain scale 2-4 (Mild) Last Admin: 08/06/23 08:17 Dose: 500 mg Albuterol Sulfate (Albuterol Inhaler 60 Puff/8 Gm) 1 puff IH BID [facility] Last Admin: 08/07/23 20:49 Dose: Not Given Buspirone HCl (Buspirone Hcl 15 Mg Tablet) 7.5 mg PO BID [facility] Last Admin: 08/07/23 20:47 Dose: 7.5 mg Docusate Sodium (Docusate Na 100 Mg Cap) 100 mg PO BID [facility] Last Admin: 08/07/23 20:47 Dose: Not Given Duloxetine HCl (Duloxetine 30 Mg Cap) 60 mg PO DAILY [facility] Last Admin: 08/07/23 09:22 Dose: 60 mg Fentanyl Citrate (Fentanyl Citr 100 Mcg/2 Ml) 25 mcg IV Q4H PRN PRN Reason: Pain scale 8-10 (Severe) Last Admin: 08/07/23 17:15 Dose: 25 mcg Gabapentin (Gabapentin 300 Mg Cap) 300 mg PO BID [facility] Last Admin: 08/07/23 20:47 Dose: 300 mg Glucagon (Glucagon 1 Mg/Vial) 1 mg IM 1X PRN PRN Reason: HYPOGLYCEMIA Home Med (Carbamazepine [Tegretol Xr]) 200 mg PO BID [facility] Last Admin: 08/07/23 20:49 Dose: Not Given Dextrose (Dextrose 10% Water Iv Soln.) 125 mls @ 0 mls/hr IV PRN PRN; Protocol PRN Reason: HYPOGLYCEMIA Insulin Human Regular (Insulin Regular (Human) 100 Unit/Ml) 0 unit SQ ACHS [facility]; Protocol Last Admin: 08/07/23 20:49 Dose: Not Given Lactulose (Lactulose 20 Gm/30 Ml Ucup) 10 gm PO BID PRN PRN Reason: CONSTIPATION use 2nd Last Admin: 08/06/23 14:51 Dose: 10 gm Levothyroxine Sodium (Levothyroxine Sod 0.1 Mg Tab) 0.1 mg PO ACB [facility] Last Admin: 08/07/23 09:22 Dose: 0.1 mg Levothyroxine Sodium (Levothyroxine Sod 0.075 Mg Tab) 0.075 mg PO ACB [facility] Last Admin: 08/07/23 09:21 Dose: 0.075 mg Ondansetron HCl (Ondansetron 4 Mg/2 Ml Vial) 4 mg IV Q8H PRN PRN Reason: NAUSEA / VOMITING Last Admin: 08/06/23 08:17 Dose: 4 mg Pantoprazole Sodium (Pantoprazole 40mg Tablet) 40 mg PO DAILY [facility] Last Admin: 08/07/23 09:22 Dose: 40 mg Polyethylene Glycol (Polyethyl Gly 3350 17 Gm/Dose) 17 gm PO DAILY PRN PRN Reason: CONSTIPATION give 1st Potassium Chloride (Potassium Cl Sa 10 Meq Tab) 20 meq PO DAILY [facility] Last Admin: 08/07/23 09:22 Dose: 20 meq Quetiapine Fumarate (Quetiapine 100mg Tab) 300 mg PO BEDTIME [facility] Last Admin: 08/07/23 20:47 Dose: 300 mg Assessment/ Plan: Nephrology No dyspnea No chest pain Malaise +BM No acute events overnight Vitals, medications, blood work and imaging reviewed in the chart. General: In no apparent distress, Oriented x3, Cooperative HEENT: Atraumatic Neck: Supple Respiratory: Clear to auscultation bilaterally Cardiovascular: No edema, Regular rate/rhythm Gastrointestinal: Soft and benign, Non-distended Musculoskeletal: No clubbing, No contractures Integumentary: No rashes, No cyanosis Neurological: Normal speech Laboratory Data (last 24 hrs) 08/02/23 08/02/23 17:45 17:45 WBC 7.60 Hgb 10.2 L Hct 31.1 L Plt Count 294 Sodium 116 L* Potassium 3.2 L BUN 7 Creatinine 0.96 Glucose 138 H Total Bilirubin 0.4 AST 18 ALT 34 Alkaline Phosphatase 120 H Lipase 88 H Imagings Data: EXAM DESCRIPTION: RAD - Chest Single View - 08/02/2023 5:58 pm CLINICAL HISTORY: CHEST PAIN Chest pain. COMPARISON: Chest Single View dated 08/07/2019; Chest Pa And Lat (2 Views) dated 12/24/2018; Chest Pa And Lat (2 Views) dated 12/24/2018; Chest Single View dated 12/22/2018 FINDINGS: Portable technique limits examination quality. Moderate pulmonary edema is suspected. The heart is moderately enlarged. No displaced fractures. IMPRESSION: Moderate CHF. EXAM DESCRIPTION: CTAbdomen Pelvis W Contrast - 08/02/2023 7:03 pm CLINICAL HISTORY: Abdominal pain. ABD PAIN COMPARISON: Abdomen Pelvis W Contrast dated 08/07/2019; Abdomen Pelvis W Contrast dated 05/17/2016 TECHNIQUE: Biphasic CT imaging of the abdomen and pelvis was performed with 100 ml non-ionic IV contrast. All CT scans are performed using dose optimization technique as appropriate and may include automated exposure control or mA/KV adjustment according to patient size. FINDINGS: Mild interstitial pulmonary edema is seen in the lung bases.Small hiatal hernia. The liver, spleen, pancreas, adrenal glands and kidneys are within normal limits. No bowel obstruction, free air, free fluid or abscess. There is a large amount stool present throughout the colon. The appendix is not identified as a discrete structure, however, no secondary findings of appendicitis are identified. Mild aortic atherosclerosis. No evidence of significant lymphadenopathy. No suspicious bony findings. Small fat containing right inguinal hernia. IMPRESSION: There is significant fecal retention throughout the colon noted. EXAM DESCRIPTION: US - Abdomen Exam Limited - 08/02/2023 6:14 pm CLINICAL HISTORY: ABD PAIN COMPARISON: ABDOMINAL EXAM LIMITED dated 09/26/2011 FINDINGS: The gallbladder demonstrates echogenic material likely a combination of stones and sludge. No pericholecystic fluid or gallbladder wall thickening. The common bile duct is mildly prominent measuring 7-8 mm. The liver demonstrates no findings of intrahepatic biliary dilatation. IMPRESSION: Suspected gallbladder sludge and stones are present. No evidence of acute cholecystitis. Mildly prominent common bile duct measuring 7-8 mm. LEFT VENTRICULAR WALL MOTION: NORMAL DOPPLER/COLOR FLOW: NO AORTIC STENOSIS OR AORTIC REGURGIATION. MODERATE MITRAL STENOSIS. ESTIMATED MITRAL VALVE AREA 1.6 CENTIMETERS SQUARED. MILD MITRAL AND TRICUSPID REGURGITATION. ESTIMATED RIGHT VENTRICULAR SYSTOLIC PRESSURE 70 mmHg. SEVERE PULMONARY HYPERTENSION. COMMENTS: NORMAL LEFT VENTRICULAR EJECTION FRACTION. DILATED LEFT ATRIUM. AORTIC SCLEROSIS WITH NO AORTIC STENOSIS OR AORTIC REGURGIATION. MITRAL ANNULAR CALCIFICATION. MODERATE MITRAL STENOSIS. MILD MITRAL AND TRICUSPID REGURGITATION. SEVERE PULMONARY HYPERTENSION. Conclusions/Impression: Hyponatremia in the setting of N/V -Bumex X1 dose HTN with CHF -Monitor BP Diastolic CHF, chronic Pulmonary HTN Moderate Mitral Stenosis -Daily weight -Bumex X1 DM II A1C 6.4 -RISS Anemia in chronic illness Iron Deficiency 14.3% -Monitor H&H -Ferrilecit X1 Cigarette Smoker -Recommend cessation -Nicotine TD prn Fecal Retention -Continue Colace BID Hospitalist note reviewed
[2023-08-08] MEDS: FENTANYL CITR 100 MCG/2 ML IV PRN ×2 (02:30→08:31)
[2023-08-08] MEDS: ONDANSETRON 4 MG/2 ML VIAL IV PRN ×2 (03:46→12:22)
[2023-08-08] MEDS: CARBAMAZEPINE 100 MG PO SCH (08:23)
[2023-08-08] MEDS: LEVOTHYROXINE SOD 0.1 MG TAB PO SCH (08:31)
[2023-08-08] MEDS: LEVOTHYROXINE SOD 0.075 MG TAB PO SCH (08:31)
[2023-08-08] MEDS: SODIUM CHLORIDE 1 GM TAB PO SCH ×2 (08:31→16:22)
[2023-08-08] MEDS: INSULIN REGULAR (HUMAN) 100 UNIT/ML SQ SCH ×3 (08:31→16:22)
[2023-08-08 08:58] LABS: Absolute Lymphocytes (CBC) 1.6 K/uL (0.7-4.9); Hematocrit 27.2 % (36.0-45.0); Lymphocytes % 22.8 % (15.3-44.8); MCV 74.1 fL (80-100); MPV 6.5 fL (7.6-11.3); Platelets 263 thou/uL (152-406); RBC Red Blood Cell Count 3.67 M/uL (3.86-4.86)
[2023-08-08] MEDS: DOCUSATE NA 100 MG CAP PO SCH (09:00)
[2023-08-08] MEDS ORDERED: SOD FERRIC GLUC COMPLX/SUCROSE 250 MG in NA CHLORIDE 0.9% 250 ML IV SCH (09:00)
[2023-08-08] MEDS ORDERED: BUMETANIDE 1 MG TABLET PO SCH (09:00)
[2023-08-08] MEDS ORDERED: SOD FERRIC GLUC COMPLX/SUCROSE 250 MG in NA CHLORIDE 0.9% 100 ML IV SCH (09:00)
[2023-08-08] MEDS: ALBUTEROL INHALER 60 PUFF/8 GM IH SCH (09:00)
[2023-08-08 09:18] LABS: Albumin 3.6 g/dL (3.4-5.0); Bilirubin Total 0.4 mg/dL (0.2-1.0); Potassium 3.9 mEq/L (3.5-5.1); Protein, Total 7.3 g/dL (6.4-8.2)
[2023-08-08] MEDS: BUSPIRONE HCL 15 MG TABLET PO SCH (09:35)
[2023-08-08] MEDS: DULOXETINE 30 MG CAP PO SCH (09:35)
[2023-08-08] MEDS: POTASSIUM CL SA 10 MEQ TAB PO SCH (09:36)
[2023-08-08] MEDS: PANTOPRAZOLE 40MG TABLET PO SCH (09:36)
[2023-08-08] MEDS: GABAPENTIN 300 MG CAP PO SCH (09:36)
[2023-08-08] MEDS ORDERED: BUMETANIDE 1 MG TABLET PO ONE (10:16)
[2023-08-08] MEDS: MORPHINE 2 MG/ML SYR IV PRN ×2 (12:17→18:07)
[2023-08-08] MEDS: ACETAMINOPHEN 500 MG TAB PO PRN (15:22)
[2023-08-08 16:08] VITALS: BP 130/68; TEMP 97.2
--- NOTE | 2023-08-08 19:31 | P.PN ---
Date of Service: 08/08/23 Vital Signs Temp Pulse Resp BP Pulse Ox 97.2 F 83 16 130/68 98 08/08/23 16:00 08/08/23 16:00 08/08/23 16:00 08/08/23 16:00 08/08/23 16:00 Medications Acetaminophen (Acetaminophen 500 Mg Tab) 500 mg PO Q6H PRN PRN Reason: Pain scale 2-4 (Mild) Last Admin: 08/08/23 15:22 Dose: 500 mg Albuterol Sulfate (Albuterol Inhaler 60 Puff/8 Gm) 1 puff IH BID [facility] Last Admin: 08/08/23 09:00 Dose: Not Given Bumetanide (Bumetanide 1 Mg Tablet) 0.5 mg PO DAILY [facility] Last Admin: 08/08/23 09:35 Dose: 0.5 mg Buspirone HCl (Buspirone Hcl 15 Mg Tablet) 7.5 mg PO BID [facility] Last Admin: 08/08/23 09:35 Dose: 7.5 mg Docusate Sodium (Docusate Na 100 Mg Cap) 100 mg PO BID [facility] Last Admin: 08/08/23 09:00 Dose: Not Given Duloxetine HCl (Duloxetine 30 Mg Cap) 60 mg PO DAILY [facility] Last Admin: 08/08/23 09:35 Dose: 60 mg Gabapentin (Gabapentin 300 Mg Cap) 300 mg PO BID [facility] Last Admin: 08/08/23 09:36 Dose: 300 mg Glucagon (Glucagon 1 Mg/Vial) 1 mg IM 1X PRN PRN Reason: HYPOGLYCEMIA Home Med (Carbamazepine [Tegretol Xr]) 200 mg PO BID [facility] Last Admin: 08/08/23 08:23 Dose: Not Given Dextrose (Dextrose 10% Water Iv Soln.) 125 mls @ 0 mls/hr IV PRN PRN; Protocol PRN Reason: HYPOGLYCEMIA Ferric Sodium Gluconate Complex 250 mg/ Sodium Chloride 270 mls @ 225 mls/hr IV DAILY [facility] Stop: 08/10/23 10:11 Last Admin: 08/08/23 09:35 Dose: 270 mls Insulin Human Regular (Insulin Regular (Human) 100 Unit/Ml) 0 unit SQ ACHS [facility]; Protocol Last Admin: 08/08/23 16:22 Dose: 3 unit Lactulose (Lactulose 20 Gm/30 Ml Ucup) 10 gm PO BID PRN PRN Reason: CONSTIPATION use 2nd Last Admin: 08/06/23 14:51 Dose: 10 gm Levothyroxine Sodium (Levothyroxine Sod 0.1 Mg Tab) 0.1 mg PO ACB [facility] Last Admin: 08/08/23 08:31 Dose: 0.1 mg Levothyroxine Sodium (Levothyroxine Sod 0.075 Mg Tab) 0.075 mg PO ACB [facility] Last Admin: 08/08/23 08:31 Dose: 0.075 mg Morphine Sulfate (Morphine 2 Mg/Ml Syr) 2 mg IV Q6H PRN PRN Reason: Pain scale 8-10 (Severe) Last Admin: 08/08/23 18:07 Dose: 2 mg Ondansetron HCl (Ondansetron 4 Mg/2 Ml Vial) 4 mg IV Q8H PRN PRN Reason: NAUSEA / VOMITING Last Admin: 08/08/23 12:22 Dose: 4 mg Pantoprazole Sodium (Pantoprazole 40mg Tablet) 40 mg PO DAILY [facility] Last Admin: 08/08/23 09:36 Dose: 40 mg Polyethylene Glycol (Polyethyl Gly 3350 17 Gm/Dose) 17 gm PO DAILY PRN PRN Reason: CONSTIPATION give 1st Potassium Chloride (Potassium Cl Sa 10 Meq Tab) 20 meq PO DAILY [facility] Last Admin: 08/08/23 09:36 Dose: 20 meq Quetiapine Fumarate (Quetiapine 100mg Tab) 300 mg PO BEDTIME [facility] Last Admin: 08/07/23 20:47 Dose: 300 mg Sodium Chloride (Sodium Chloride 1 Gm Tab) 2 gm PO BIDWM [facility] Last Admin: 08/08/23 16:22 Dose: 2 gm Assessment/ Plan: Nephrology No dyspnea No chest pain Feeling better No acute events overnight Vitals, medications, blood work and imaging reviewed in the chart. General: In no apparent distress, Oriented x3, Cooperative HEENT: Atraumatic Neck: Supple Respiratory: Clear to auscultation bilaterally Cardiovascular: No edema, Regular rate/rhythm Gastrointestinal: Soft and benign, Non-distended Musculoskeletal: No clubbing, No contractures Integumentary: No rashes, No cyanosis Neurological: Normal speech Laboratory Data (last 24 hrs) 08/02/23 08/02/23 17:45 17:45 WBC 7.60 Hgb 10.2 L Hct 31.1 L Plt Count 294 Sodium 116 L* Potassium 3.2 L BUN 7 Creatinine 0.96 Glucose 138 H Total Bilirubin 0.4 AST 18 ALT 34 Alkaline Phosphatase 120 H Lipase 88 H Imagings Data: EXAM DESCRIPTION: RAD - Chest Single View - 08/02/2023 5:58 pm CLINICAL HISTORY: CHEST PAIN Chest pain. COMPARISON: Chest Single View dated 08/07/2019; Chest Pa And Lat (2 Views) dated 12/24/2018; Chest Pa And Lat (2 Views) dated 12/24/2018; Chest Single View dated 12/22/2018 FINDINGS: Portable technique limits examination quality. Moderate pulmonary edema is suspected. The heart is moderately enlarged. No displaced fractures. IMPRESSION: Moderate CHF. EXAM DESCRIPTION: CTAbdomen Pelvis W Contrast - 08/02/2023 7:03 pm CLINICAL HISTORY: Abdominal pain. ABD PAIN COMPARISON: Abdomen Pelvis W Contrast dated 08/07/2019; Abdomen Pelvis W Contrast dated 05/17/2016 TECHNIQUE: Biphasic CT imaging of the abdomen and pelvis was performed with 100 ml non-ionic IV contrast. All CT scans are performed using dose optimization technique as appropriate and may include automated exposure control or mA/KV adjustment according to patient size. FINDINGS: Mild interstitial pulmonary edema is seen in the lung bases.Small hiatal hernia. The liver, spleen, pancreas, adrenal glands and kidneys are within normal limits. No bowel obstruction, free air, free fluid or abscess. There is a large amount stool present throughout the colon. The appendix is not identified as a discrete structure, however, no secondary findings of appendicitis are identified. Mild aortic atherosclerosis. No evidence of significant lymphadenopathy. No suspicious bony findings. Small fat containing right inguinal hernia. IMPRESSION: There is significant fecal retention throughout the colon noted. EXAM DESCRIPTION: US - Abdomen Exam Limited - 08/02/2023 6:14 pm CLINICAL HISTORY: ABD PAIN COMPARISON: ABDOMINAL EXAM LIMITED dated 09/26/2011 FINDINGS: The gallbladder demonstrates echogenic material likely a combination of stones and sludge. No pericholecystic fluid or gallbladder wall thickening. The common bile duct is mildly prominent measuring 7-8 mm. The liver demonstrates no findings of intrahepatic biliary dilatation. IMPRESSION: Suspected gallbladder sludge and stones are present. No evidence of acute cholecystitis. Mildly prominent common bile duct measuring 7-8 mm. LEFT VENTRICULAR WALL MOTION: NORMAL DOPPLER/COLOR FLOW: NO AORTIC STENOSIS OR AORTIC REGURGIATION. MODERATE MITRAL STENOSIS. ESTIMATED MITRAL VALVE AREA 1.6 CENTIMETERS SQUARED. MILD MITRAL AND TRICUSPID REGURGITATION. ESTIMATED RIGHT VENTRICULAR SYSTOLIC PRESSURE 70 mmHg. SEVERE PULMONARY HYPERTENSION. COMMENTS: NORMAL LEFT VENTRICULAR EJECTION FRACTION. DILATED LEFT ATRIUM. AORTIC SCLEROSIS WITH NO AORTIC STENOSIS OR AORTIC REGURGIATION. MITRAL ANNULAR CALCIFICATION. MODERATE MITRAL STENOSIS. MILD MITRAL AND TRICUSPID REGURGITATION. SEVERE PULMONARY HYPERTENSION. Conclusions/Impression: Hyponatremia in the setting of N/V -Continue Bumex -Caution with excess water intake HTN with CHF -Monitor BP Diastolic CHF, chronic Pulmonary HTN Moderate Mitral Stenosis -Daily weight -Continue Bumex DM II A1C 6.4 -RISS Anemia in chronic illness Iron Deficiency 14.3% -Monitor H&H -Ferrilecit Daily as ordered Cigarette Smoker -Recommend cessation -Nicotine TD prn Fecal Retention -Continue Colace BID Hospitalist note reviewed Case reviewed with Dr. Tejada
== END 2023-08-08 20:02 | disposition home or self-care (01) | DRG 641 ==
LOC: ER 17:15 → ERHOLD 20:26 → 2ND 08-03 15:04
PROVIDERS: ADMIT Family Medicine; ATTEND Hospitalist
DX: E87.1 Hypo-osmolality and hyponatremia (principal); F31.61 Bipolar disorder, current episode mixed, mild; I50.32 Chronic diastolic (congestive) heart failure; I11.0 Hypertensive heart disease with heart failure; E03.9 Hypothyroidism, unspecified; M79.7 Fibromyalgia; M41.9 Scoliosis, unspecified; K59.00 Constipation, unspecified; D63.8 Anemia in other chronic diseases classified elsewhere; I05.0 Rheumatic mitral stenosis; E11.65 Type 2 diabetes mellitus with hyperglycemia; E87.6 Hypokalemia; I27.22 Pulmonary hypertension due to left heart disease; F41.9 Anxiety disorder, unspecified; J45.909 Unspecified asthma, uncomplicated; F17.200 Nicotine dependence, unspecified, uncomplicated; Z79.4 Long term (current) use of insulin; Z88.0 Allergy status to penicillin; Z79.84 Long term (current) use of oral hypoglycemic drugs; Z99.89 Dependence on other enabling machines and devices; Z79.890 Hormone replacement therapy; Z79.899 Other long term (current) drug therapy
CPT/HCPCS: 36415; 70450; 71045; 74177; 76705; 80048; 80053; 80156; 81001; 82435; 82533; 82570; 82728; 82947; 83036; 83540; 83690; 83735; 83930; 83935; 84100; 84132; 84300; 84443; 84466; 84484; 84550; 85025; 93005; 96374; 96375; 99285; J0834; J1644; J1815; J2270; J2405; J2916; J3010; J7030; J7050; Q0162; Q9967

== ENCOUNTER 2024-07-13 18:37 | Emergency (ER) | payer OTHER ==
[2024-07-13] MEDS ORDERED: ONDANSETRON 4 MG (ODT) TAB ONE (20:41)
[2024-07-13] MEDS ORDERED: PHENAZOPYRIDINE 100MG TAB PO ONE (20:41)
[2024-07-13] MEDS ORDERED: IBUPROFEN 400 MG TAB ONE (20:41)
[2024-07-13 20:55] LABS: Specific Gravity 1.023 (1.005-1.030); Urine Bacteria None Seen /HPF (<20); Urine Bilirubin NEGATIVE (Negative); Urine Blood Negative (Negative); Urine Clarity Turbid (Clear); Urine Color Yellow (Yellow); Urine Culture Reflex Order NOT NEEDED; Urine Glucose NEGATIVE (Negative); Urine Ketones NEGATIVE (Negative); Urine Microscopic Reflex YN ORDER UMIC; Urine Mucus Slight /HPF (None Seen); Urine Nitrite NEGATIVE (Negative); Urine Protein NEGATIVE (Negative); Urine RBC None Seen /HPF (None Seen); Urine Urobilinogen Normal (Normal); Urine WBC <5 /HPF (<5); Urine pH 7.5 (5.0-7.0)
[2024-07-13] MEDS ORDERED: ONDANSETRON 4 MG/2 ML VIAL ONE (21:14)
[2024-07-13] MEDS ORDERED: MORPHINE 4 MG/ML SYR ONE ×2 (21:14→23:12)
[2024-07-13 21:25] LABS: Absolute Basophils 0.1 K/uL (0-0.5); Absolute Eosinophils 0.1 K/uL (0-0.5); Absolute Lymphocytes (CBC) 2.2 K/uL (0.7-4.9); Absolute Monocytes 0.6 K/uL (0.1-1.3); Absolute Neutrophil 4.5 K/uL (1.8-8.0); Basophils % 0.9 % (0-1.3); Eosinophils % 1.5 % (0-4.4); Hematocrit 35.8 % (36.0-45.0); Hemoglobin 11.7 g/dL (12.0-15.0); Lymphocytes % 29.1 % (15.3-44.8); MCH 25.8 pg (27.0-35.0); MCHC 32.7 g/dL (32.0-36.0); MCV 79.1 fL (80-100); MPV 7.5 fL (7.6-11.3); Monocytes % 8.5 % (3.3-12.3); Nucleated Red Blood Cells % 0.1 % (0-0); Platelets 272 thou/uL (152-406); RBC Red Blood Cell Count 4.53 M/uL (3.86-4.86); Red Cell Distribution Width 15.8 % (12.1-15.2)
[2024-07-13 21:36] LABS: Albumin 3.9 g/dL (3.4-5.0); Albumin/Globulin Ratio 0.8 (1.1-1.8); Anion Gap 8.6 mEq/L (5.0-15.0); Bilirubin Total 0.4 mg/dL (0.2-1.0); Globulin 4.6 g/dL (2.3-3.5); Potassium 3.6 mEq/L (3.5-5.1); Protein, Total 8.5 g/dL (6.4-8.2)
--- NOTE | 2024-07-13 22:43 | RAD REPORT ---
Stone Protocol CLINICAL INDICATION: Female, 59 years old.FLANK PAIN TECHNIQUE: CT abdomen and pelvis was performed, without IV contrast, as per department protocol using a CT stone protocol. Axial, sagittal and coronal reconstructions were obtained. One or more of the following dose reduction techniques were used: Automated exposure control, adjustment of the mA and/o r kV according to the patient size, and/or iterative reconstruction. Unless otherwise specified, incidental findings do not require dedicated imaging follow-up. [id number]. IV CONTRAST: Not administered. COMPARISON: 04/08/2024 FINDINGS: The lack of intravenous contrast limits the sensitivity of this exam for evaluation of solid visceral organs, vascular structures, and retroperitoneum. LOWER CHEST: Chronic lung changes. Mild degenerative calcifications. Coronary calcifications and/or s tents. LIVER: Hepatic steatosis. GALLBLADDER/BILE DUCTS: No biliary ductal dilatation.? PANCREAS: No mass, ductal dilation, or colby-pancreatic fluid. SPLEEN: Normal size. No focal lesion. ADRENALS: Normal; no mass. KIDNEYS AND URETERS: Normal size and contour. No hydronephrosis. URINARY BLADDER: Normal contour. GASTROINTESTINAL TRACT: Stomach is non-dilated. Small bowel has normal course and caliber. No colonic wall thickening or pericolonic inflammatory changes. Normal appendix. PERITONEUM: No free fluid. ABDOMINAL AORTA AND OTHER VESSELS: Normal caliber aorta and IVC. REPRODUCTIVE ORGANS: No pathologic process. MUSCULOSKELETAL: No acute or suspicious osseous abnormality. ADDITIONAL FINDINGS: None. IMPRESSION: No acute or significant abnormalities in the abdomen or pelvis, with evaluation limited by lack of IV contrast. No urinary tract calculi.
--- NOTE | 2024-07-13 22:56 | ER ---
Nurse's Notes [facility] Name: Kim Weldon Age: 59 yrs Sex: Female : 1965 Arrival Date: 07/13/2024 Time: 18:37 Bed 6 Private MD: Diagnosis: Low back pain;Dysuria Presentation: 07/13 19:11 Chief complaint: Patient states: Pt c/o burning and pain with urination, rita lower back dd2 pain and flank pain 3-4 days. Coronavirus screen: At this time, the client does not indicate any symptoms associated with coronavirus-19. Ebola Screen: No symptoms or risks identified at this time. Initial Sepsis Screen: Does the patient meet any 2 criteria? No. Patient's initial sepsis screen is negative. Does the patient have a suspected source of infection? No. Patient's initial sepsis screen is negative. Risk Assessment: Do you want to hurt yourself or someone else? Patient reports no desire to harm self or others. Onset of symptoms is unknown. 19:11 Method Of Arrival: Ambulatory dd2 19:11 Acuity: ALFRED 3 dd2 Triage Assessment: 19:13 General: Appears in no apparent distress. Behavior is calm, cooperative, appropriate dd2 for age. Pain: Complains of pain in left low back, right low back, anterior aspect of right lateral abdomen and anterior aspect of left lateral abdomen Pain currently is 9 out of 10 on a pain scale. EENT: No deficits noted. No signs and/or symptoms were reported regarding the EENT system. Neuro: No deficits noted. Level of Consciousness is awake, alert, obeys commands, Oriented to person, place, time, situation. Cardiovascular: No deficits noted. Denies chest pain. Respiratory: No deficits noted. Airway is patent Respiratory effort is even, unlabored, Respiratory pattern is regular, symmetrical. GI: No deficits noted. : Reports burning with urination, pain in right in left flank(s), in lower back with urination. Derm: No deficits noted. No signs and/or symptoms reported regarding the dermatologic system. Musculoskeletal: No deficits noted. No signs and/or symptoms reported regarding the musculoskeletal system. Historical: - Allergies: 19:13 PENICILLINS; dd2 - PMHx: 19:13 Asthma; Bipolar disorder; CHF; Diabetes - IDDM; Fibromyalgia; Hypertension; dd2 Hypothyroidism; mitral valve prolapse; scoliosis; - PSHx: 19:13 section; dd2 - Immunization history:: Adult Immunizations up to date. - Infectious Disease History:: Denies. - Social history:: Smoking status: Reported history of juuling and/or vaping. Screenin:33 [facility] ED Fall Risk Assessment (Adult) History of falling in the last 3 months, al5 including since admission No falls in past 3 months (0 pts) Confusion or Disorientation No (0 pts) Intoxicated or Sedated No (0 pts) Impaired Gait No (0 pts) Mobility Assist Device Used No (0 pt) Altered Elimination No (0 pt) Score/Fall Risk Level 0 - 2 = Low Risk Oriented to surroundings, Maintained a safe environment, Hourly rounding (assess needs \T\ fall precautionary measures) done. Abuse screen: Denies threats or abuse. Denies injuries from another. Nutritional screening: No deficits noted. Tuberculosis screening: No symptoms or risk factors identified. Assessment: 20:31 General: Appears in no apparent distress. uncomfortable, Behavior is calm, cooperative. al5 Pain: Complains of pain in pelvis Pain radiates to abdomen and anterior aspect of left lateral abdomen and anterior aspect of right lateral abdomen and right low back and left low back Pain currently is 7 out of 10 on a pain scale. Neuro: Level of Consciousness is awake, alert, obeys commands, Oriented to person, place, time, situation. Cardiovascular: Patient's skin is warm and dry. Respiratory: Airway is patent Respiratory effort is even, unlabored, Respiratory pattern is regular, symmetrical. GI: Abdomen is round non-distended, Reports lower abdominal pain. : Reports pain in bilateral in suprapubic area flank(s), lower quadrant(s) in lower back. EENT: No signs and/or symptoms were reported regarding the EENT system. Derm: Skin is intact, Skin is pink, warm \T\ dry. normal. Musculoskeletal: No signs and/or symptoms reported regarding the musculoskeletal system. 21:02 Reassessment: Patient appears in no apparent distress at this time. No changes from al5 previously documented assessment. Patient and/or family updated on plan of care and expected duration. Pain level reassessed. Patient is alert, oriented x 3, equal unlabored respirations, skin warm/dry/pink. 22:00 Reassessment: Patient appears in no apparent distress at this time. No changes from al5 previously documented assessment. Patient and/or family updated on plan of care and expected duration. Pain level reassessed. Patient is alert, oriented x 3, equal unlabored respirations, skin warm/dry/pink. 23:25 Reassessment: Patient and/or family updated on plan of care and expected duration. Pain ha1 level reassessed. Patient is alert, oriented x 3, equal unlabored respirations, skin warm/dry/pink. Patient denies pain at this time. Patient states feeling better. Patient states symptoms have improved. Vital Signs: 19:11 BP 137 / 80; Pulse 84; Resp 16; Temp 97.9(TE); Pulse Ox 98% ; Weight 86.18 kg; Height 5 dd2 ft. 4 in. ; 20:34 BP 153 / 89; Pulse 65; Resp 18; Pulse Ox 100% on R/A; al5 20:34 Weight 88 kg; Height 5 ft. 4 in. ; al5 20:35 BP 137 / 96; Pulse 73; Resp 18; Pulse Ox 97% on R/A; al5 20:45 BP 100 / 88; Pulse 57; Resp 18; Pulse Ox 97% on R/A; al5 21:00 BP 122 / 87; Pulse 50; Resp 18; Pulse Ox 96% on R/A; al5 21:15 BP 137 / 102; Pulse 67; Resp 18; Pulse Ox 96% on R/A; al5 21:30 BP 90 / 79; Pulse 64; Resp 18; Pulse Ox 94% on R/A; al5 22:20 BP 120 / 78; Pulse 62; Resp 17; Pulse Ox 94% on R/A; ha1 23:26 BP 127 / 85; Pulse 61; Resp 18 S; Pulse Ox 100% on R/A; ha1 20:34 Body Mass Index 33.30 (88.00 kg, 162.56 cm) al5 ED Course: 18:39 Patient arrived in ED. im 19:10 Khanh Sprague PA is PHCP. cp 19:10 Khanh Johnson MD is Attending Physician. cp 19:13 Triage completed. dd2 19:13 Arm band placed on right wrist. Patient placed in waiting room, Patient notified of dd2 wait time. 20:31 Gloria Montiel, RN is Primary Nurse. al5 20:32 Patient has correct armband on for positive identification. Bed in low position. Call al5 light in reach. Side rails up X2. Provided Education on: plan of care. 20:33 No provider procedures requiring assistance completed. al5 21:25 Inserted saline lock: 20 gauge in right antecubital area, using aseptic technique. al5 22:30 CT Stone Protocol In Process Unspecified. EDMS 23:24 IV discontinued, intact, bleeding controlled, No redness/swelling at site. Pressure ha1 dressing applied. Administered Medications: 20:43 Drug: Phenazopyridine PO 200 mg PO once Route: PO; al5 21:02 Follow up: Response: No adverse reaction; Pain is unchanged, physician notified al5 20:43 Drug: Ondansetron PO 4 mg PO once Route: PO; al5 21:01 Follow up: Response: No adverse reaction; Nausea is decreased al5 20:44 Drug: Ibuprofen PO 800 mg PO once Route: PO; al5 21:01 Follow up: Response: No adverse reaction; Pain is unchanged, physician notified al5 21:26 Drug: Ondansetron IVP 4 mg IVP once; over 2 minutes Route: IVP; Site: right antecubital;al5 22:00 Follow up: Response: No adverse reaction; Marked relief of symptoms ha1 21:26 Drug: morphine IVP or IV 4 mg IVP once over 4 mins Route: IVP; Infused Over: 4 mins; al5 Site: right antecubital; 23:25 Follow up: Response: No adverse reaction; Marked relief of symptoms ha1 23:18 Drug: Lidoderm Topical Patch 5 % (700 mg/patch) 1 patches Topical once; leave on for 12 vc1 hours; cover most painful area; may cut into smaller pieces {Note: mid lower back.} Route: Topical; Site: affected area; 23:19 Drug: Methocarbamol PO 750 mg PO once Route: PO; vc1 23:24 Follow up: Response: No adverse reaction; Marked relief of symptoms ha1 23:19 Drug: morphine IVP or IV 4 mg IVP once over 4 mins Route: IVP; Infused Over: 4 mins; vc1 Site: right antecubital; 23:24 Follow up: Response: No adverse reaction; Marked relief of symptoms; Pain is decreased; ha1 RASS: Alert and Calm (0) Medication: 20:32 VIS not applicable for this client. al5 Outcome: 22:55 Discharge ordered by . cp 23:24 Discharged to home ambulatory, ha1 23:24 Condition: stable 23:24 Discharge instructions given to patient, Instructed on discharge instructions, follow up and referral plans. medication usage, Demonstrated understanding of instructions, follow-up care, medications, Prescriptions given X 2, 23:26 Patient left the ED. ha1 Signatures: Dispatcher [employer] EDMS Khanh Sprague PA PA cp Calcote, Vanessa RN RN vc1 Marsha Roy RN RN ha1 Roxanne Gerber Amanda, RN RN al5 WENDY LOPEZ RN RN dd2 Corrections: (The following items were deleted from the chart) 23:26 21:45 BP 120 / 78; Pulse 62bpm; Resp 17bpm; Pulse Ox 94% RA; al5 ha1
--- NOTE | 2024-07-13 22:56 | EDPHYS ---
Physician Documentation [facility] Name: Kim Weldon Age: 59 yrs Sex: Female : 1965 Arrival Date: 07/13/2024 Time: 18:37 Bed 6 Private MD: ED Physician Khanh Johnson HPI: 07/13 19:20 This 59 yrs old Female presents to ER via Ambulatory with complaints of cp Urinary Problem. 19:20 The patient presents with pain that is acute, with no known mechanism of injury. The cp symptoms are located in the low back. 19:20 Onset: The symptoms/episode began/occurred for the past 3-4 days. Associated signs and cp symptoms: Pertinent positives: abdominal pain, dysuria, Pertinent negatives: chest pain, fever, headache, incontinence, numbness, vomiting, weakness. The problem was sustained from unknown cause. Severity of symptoms: in the emergency department the symptoms are unchanged, despite home interventions. Historical: - Allergies: 19:13 PENICILLINS; dd2 - PMHx: 19:13 Asthma; Bipolar disorder; CHF; Diabetes - IDDM; Fibromyalgia; Hypertension; dd2 Hypothyroidism; mitral valve prolapse; scoliosis; - PSHx: 19:13 section; dd2 - Immunization history:: Adult Immunizations up to date. - Infectious Disease History:: Denies. - Social history:: Smoking status: Reported history of juuling and/or vaping. ROS: 19:25 Eyes: Negative for injury, pain, redness, and discharge, cp 19:25 Constitutional: Negative for body aches, chills, fever, poor PO intake, 19:25 ENT: Negative for drainage from ear(s), ear pain, sore throat, difficulty swallowing, difficulty handling secretions, 19:25 Cardiovascular: Negative for chest pain, edema, palpitations, 19:25 Respiratory: Negative for cough, shortness of breath, wheezing, 19:25 Abdomen/GI: Positive for abdominal pain, nausea, of the suprapubic area, Negative for vomiting, diarrhea, constipation, 19:25 Back: Positive for pain with movement, flank pain, of the low back area and mid back area, 19:25 Skin: Negative for rash, 19:25 Neuro: Negative for altered mental status, dizziness, headache, numbness, weakness, 19:25 All other systems are negative, Exam: 19:30 Constitutional: The patient appears in no acute distress, alert, awake, non-toxic, well cp developed, well nourished, uncomfortable, 19:30 Head/Face: Normocephalic, atraumatic. cp 19:30 Eyes: Periorbital structures: appear normal, Conjunctiva: normal, no exudate, no injection, Sclera: no appreciated abnormality, Lids and lashes: appear normal, bilaterally, 19:30 ENT: External ear(s): are unremarkable, Nose: is normal, Mouth: Lips: moist, Oral mucosa: pink and intact, moist, Posterior pharynx: Airway: no evidence of obstruction, patent, 19:30 Chest/axilla: Inspection: normal, 19:30 Cardiovascular: Rate: normal, Rhythm: regular, 19:30 Respiratory: the patient does not display signs of respiratory distress, Respirations: normal, no use of accessory muscles, no retractions, labored breathing, is not present, Breath sounds: are clear throughout, no decreased breath sounds, no stridor, no wheezing, 19:30 Abdomen/GI: Inspection: abdomen appears normal, Bowel sounds: active, all quadrants, Palpation: soft, in all quadrants, moderate abdominal tenderness, in the right lower quadrant and left lower quadrant, rebound tenderness, is not appreciated, involuntary guarding, is not appreciated, 19:30 Back: pain, that is moderate, of the low back area and mid back area, ROM is painful, with all movement, 19:30 Neuro: Orientation: to person, place \T\ time. Mentation: is normal, Motor: moves all fours, strength is normal, Sensation: is normal, Vital Signs: 19:11 BP 137 / 80; Pulse 84; Resp 16; Temp 97.9(TE); Pulse Ox 98% ; Weight 86.18 kg; Height 5 dd2 ft. 4 in. ; 20:34 BP 153 / 89; Pulse 65; Resp 18; Pulse Ox 100% on R/A; al5 20:34 Weight 88 kg; Height 5 ft. 4 in. ; al5 20:35 BP 137 / 96; Pulse 73; Resp 18; Pulse Ox 97% on R/A; al5 20:45 BP 100 / 88; Pulse 57; Resp 18; Pulse Ox 97% on R/A; al5 21:00 BP 122 / 87; Pulse 50; Resp 18; Pulse Ox 96% on R/A; al5 21:15 BP 137 / 102; Pulse 67; Resp 18; Pulse Ox 96% on R/A; al5 21:30 BP 90 / 79; Pulse 64; Resp 18; Pulse Ox 94% on R/A; al5 22:20 BP 120 / 78; Pulse 62; Resp 17; Pulse Ox 94% on R/A; ha1 23:26 BP 127 / 85; Pulse 61; Resp 18 S; Pulse Ox 100% on R/A; ha1 20:34 Body Mass Index 33.30 (88.00 kg, 162.56 cm) al5 MDM: 19:17 Medical Screening Exam initiated cp 21:00 Differential diagnosis: Cholelithiasis chronic back pain, Pyelonephritis ruptured disc, cp Ureterolithiasis. 22:55 Data reviewed: vital signs, nurses notes, lab test result(s), radiologic studies, CT cp scan, and as a result, I will discharge patient. 22:55 I considered the following discharge prescriptions or medication management in the emergency department Medications were administered in the Emergency Department. See MAR. 22:55 Care significantly affected by the following chronic conditions: Diabetes, cp Hypertension, Congestive Heart Failure. Counseling: I had a detailed discussion with the patient and/or guardian regarding the historical points, exam findings, and any diagnostic results supporting the discharge/admit diagnosis, lab results, radiology results, to return to the emergency department if symptoms worsen or persist or if there are any questions or concerns that arise at home. Response to treatment: the patient's symptoms have markedly improved after treatment, and as a result, I will discharge patient. 07/13 19:17 Order name: Urinalysis w/ reflexes; Complete Time: 21:00 cp 07/13 21: Order name: CBC with Diff; Complete Time: 21:47 cp 07/13 21:47 Interpretation: Normal except: HGB 11.7; HCT 35.8; MCV 79.1; MCH 25.8; RDW 15.8; MPV cp 7.5. 07/13 21: Order name: CMP; Complete Time: 21:47 cp 07/13 21:47 Interpretation: Normal except: GLUC 257; CRE 1.43; GFR 43; TP 8.5; GLOB 4.6; A/G 0.8. cp 07/13 21: Order name: Lipase; Complete Time: 21:47 cp 07/13 21: Order name: CT Stone Protocol; Complete Time: 22:45 cp 07/13 21: Order name: IV Saline Lock; Complete Time: 21:24 cp 07/13 21: Order name: Labs collected and sent; Complete Time: 21:24 cp Administered Medications: 20:43 Drug: Phenazopyridine PO 200 mg PO once Route: PO; al5 21:02 Follow up: Response: No adverse reaction; Pain is unchanged, physician notified al5 20:43 Drug: Ondansetron PO 4 mg PO once Route: PO; al5 21:01 Follow up: Response: No adverse reaction; Nausea is decreased al5 20:44 Drug: Ibuprofen PO 800 mg PO once Route: PO; al5 21:01 Follow up: Response: No adverse reaction; Pain is unchanged, physician notified al5 21:26 Drug: Ondansetron IVP 4 mg IVP once; over 2 minutes Route: IVP; Site: right antecubital;al5 22:00 Follow up: Response: No adverse reaction; Marked relief of symptoms ha1 21:26 Drug: morphine IVP or IV 4 mg IVP once over 4 mins Route: IVP; Infused Over: 4 mins; al5 Site: right antecubital; 23:25 Follow up: Response: No adverse reaction; Marked relief of symptoms ha1 23:18 Drug: Lidoderm Topical Patch 5 % (700 mg/patch) 1 patches Topical once; leave on for 12 vc1 hours; cover most painful area; may cut into smaller pieces {Note: mid lower back.} Route: Topical; Site: affected area; 23:19 Drug: Methocarbamol PO 750 mg PO once Route: PO; vc1 23:24 Follow up: Response: No adverse reaction; Marked relief of symptoms ha1 23:19 Drug: morphine IVP or IV 4 mg IVP once over 4 mins Route: IVP; Infused Over: 4 mins; vc1 Site: right antecubital; 23:24 Follow up: Response: No adverse reaction; Marked relief of symptoms; Pain is decreased; ha1 RASS: Alert and Calm (0) Disposition Summary: 07/13/24 22:55 Discharge Ordered Notes: Location: Home cp Condition: Stable cp Diagnosis - Low back pain cp - Dysuria cp Followup: cp - With: Private Physician - When: 2 - 3 days - Reason: Recheck today's complaints Discharge Instructions: - Discharge Summary Sheet cp - Acute Back Pain, Adult cp - Dysuria cp - Heat Therapy cp - Back Exercises cp Forms: - Medication Reconciliation Form cp - Antibiotic Education cp - Prescription Opioid Use cp - Patient Portal Instructions cp - Leadership Thank You Letter cp Prescriptions: - Anaprox DS 550 mg Oral Tablet - take 1 tablet ORAL route every 12 hours As needed; 20 tablet; Refills: 0, cp Product Selection Permitted - methocarbamol 750 mg Oral tablet - take 1 tablet ORAL route 4 times per day; 30 tablet; Refills: 0, Product cp Selection Permitted Signatures: Dispatcher [employer] EDMS Khanh Sprague PA PA cp Nohemi Camargo RN RN vc1 Gloria Montiel RN RN al5 WENDY LOPEZ RN RN dd2 Marsha Roy RN ha1 Corrections: (The following items were deleted from the chart) 22:46 22:46 Urine Culture+BA.LAB.BRZ ordered. EDMA EDMA 07/14 23:02 07/13 22:35 Constitutional: Negative for body aches, chills, fever, poor PO intake, cp cp 07/14 23:02 07/13 22:35 Eyes: Negative for injury, pain, redness, and discharge, cp cp 07/14 23:02 07/13 22:35 Cardiovascular: Negative for chest pain, edema, palpitations, cp cp 07/14 23:02 07/13 22:35 Respiratory: Negative for cough, shortness of breath, wheezing, cp cp 07/14 23:02 07/13 22:35 ENT: Negative for drainage from ear(s), ear pain, sore throat, difficulty cp swallowing, difficulty handling secretions, cp 07/14 23:02 07/13 22:35 Abdomen/GI: Positive for abdominal pain, nausea, of the suprapubic area, cp Negative for vomiting, diarrhea, constipation, cp 07/14 23:02 07/13 22:35 Back: Positive for pain with movement, flank pain, of the low back area and cp mid back area, cp 07/14 23:02 07/13 22:35 Skin: Negative for rash, cp cp 07/14 23:02 07/13 22:35 Neuro: Negative for altered mental status, dizziness, headache, numbness, cp weakness, cp 07/14 23:02 07/13 22:35 All other systems are negative, cp cp
[2024-07-13] MEDS ORDERED: methocarbamoL 750 MG TAB ONE (23:12)
[2024-07-13] MEDS ORDERED: LIDOCAINE 4% PATCH ONE (23:13)
[2024-07-14 04:03] VITALS: TEMP 97.9
[2024-07-14 04:12] VITALS: BP 127/85; O2SAT 100
== END 2024-07-13 23:26 | disposition home or self-care (01) ==
LOC: ER 18:37
DX: M54.50 Low back pain, unspecified (principal); R30.0 Dysuria
CPT/HCPCS: 85025; 81001; 36415; 83690; 80053; 76377; 74176; 96375; 96374; 99284; Q0162; J2001; J2405

== ENCOUNTER 2024-10-11 19:48 | Emergency (ER) | payer OTHER ==
[2024-10-11] MEDS ORDERED: droPERidol 5 MG/2 ML VIAL ONE ×2 (20:11→22:32)
[2024-10-11 20:17] LABS: Absolute Basophils 0.1 K/uL (0-0.5); Absolute Eosinophils 0.1 K/uL (0-0.5); Absolute Lymphocytes (CBC) 2.2 K/uL (0.7-4.9); Absolute Monocytes 0.7 K/uL (0.1-1.3); Absolute Neutrophil 10.2 K/uL (1.8-8.0); Basophils % 0.6 % (0-1.3); Eosinophils % 0.7 % (0-4.4); Hematocrit 36.3 % (36.0-45.0); Hemoglobin 11.8 g/dL (12.0-15.0); Lymphocytes % 16.3 % (15.3-44.8); MCH 24.8 pg (27.0-35.0); MCHC 32.5 g/dL (32.0-36.0); MCV 76.5 fL (80-100); MPV 8.2 fL (7.6-11.3); Monocytes % 5.1 % (3.3-12.3); Neutrophils % 77.3 % (41.7-73.7); Platelets 264 thou/uL (152-406); RBC Red Blood Cell Count 4.75 M/uL (3.86-4.86); Red Cell Distribution Width 16.6 % (12.1-15.2)
[2024-10-11 20:34] LABS: Albumin 3.8 g/dL (3.4-5.0); Albumin/Globulin Ratio 0.9 (1.1-1.8); Anion Gap 10.6 mEq/L (5.0-15.0); Bilirubin Total 0.6 mg/dL (0.2-1.0); Globulin 4.4 g/dL (2.3-3.5); Potassium 3.6 mEq/L (3.5-5.1); Protein, Total 8.2 g/dL (6.4-8.2)
--- NOTE | 2024-10-11 21:46 | RAD REPORT ---
EXAMINATION: CT ABDOMEN AND PELVIS WITH CONTRAST CLINICAL INDICATION: Female, 59 years old.ABD PAIN TECHNIQUE: CT abdomen and pelvis was performed, after the administration of IV contrast, as per [facility] protocol. Axial, sagittal and coronal reconstructions were obtained. One or more of the following dose reduction techniques were used: Automated exposure control, adjustment of the mA and/o r kV according to patient size, and/or iterative reconstruction. Unless otherwise specified, incidental findings do not require dedicated imaging follow-up. [id number]. COMPARISON: 04/08/2024 FINDINGS: LOWER CHEST: Interlobular septal thickening in the lung bases. There is also likely chronic lung aguilera ges.No significant pericardial effusion. Multivessel coronary artery calcifications.Mitral annular calcifications. UPPER GI: The gastric wall appears to be hyperenhancing though not significantly thickened. LIVER: Hepatic steatosis, but otherwise unremarkable. GALLBLADDER/BILE DUCTS: No biliary ductal dilatation.? PANCREAS: No mass, ductal dilation, or colby-pancreatic fluid. SPLEEN: Unremarkable. ADRENALS: No adrenal masses. KIDNEYS AND URETERS: No hydronephrosis.No suspicious renal mass. ABDOMINAL AORTA AND OTHER VESSELS: Normal caliber aorta and IVC. PERITONEUM: No abnormal free fluid. No free air. LYMPH NODES: No pathologic lymphadenopathy. ABDOMINAL WALL: Unremarkable SMALL BOWEL/COLON: Small bowel has normal course and caliber. No colonic wall thickening or pericolon ic inflammatory changes.Moderate volume of stool in ascending colon. Normal appendix. URINARY BLADDER: Underdistended but grossly unremarkable. REPRODUCTIVE ORGANS: No pathologic process. MUSCULOSKELETAL: No acute or suspicious osseous abnormality. ADDITIONAL FINDINGS: None. IMPRESSION: Nonspecific hyperenhancement the gastric wall could reflect gastritis or may be of little significanc e. Chronic changes in the lung bases but pulmonary edema difficult to exclude.
[2024-10-11] MEDS ORDERED: FAMOTIDINE 20 MG/2 ML VIAL IV ONE (21:56)
--- NOTE | 2024-10-11 22:26 | EDPHYS ---
Physician Documentation [facility] Name: Kim Weldon Age: 59 yrs Sex: Female : 1965 Arrival Date: 10/11/2024 Time: 19:48 Bed 17 Private MD: ED Physician Mango Reynoso HPI: 10/11 21:20 This 59 yrs old Female presents to ER via EMS with complaints of Abdominal sb4 Pain. 21:20 Patient reports history of IBS. States that this morning she ate something with hot sb4 sauce and has had abdominal pain, nausea, vomiting, and diarrhea since. Denies any fever or chills. No chest pain or shortness of breath. Historical: - Allergies: 19:59 PENICILLINS; os - Home Meds: 19:59 Advair Diskus Inhl 1 puff 2 times per day [Active]; aspirin 81 mg Oral TbEC 1 tab once os daily [Active]; Cymbalta 60 mg Oral cpDR 1 cap once daily [Active]; ferrralet [Active]; gabapentin 100 mg Oral cap 3 times per day [Active]; Jardiance 10 mg Oral tab 1 tab once daily [Active]; levothyroxine 25 mcg tab 1 tab once daily [Active]; metformin 1 Oral tab [Active]; metoprolol tartrate 25 mg Oral tab 0.5 tabs once daily [Active]; pantoprazole 40 mg Oral TbEC 1 tab once daily [Active]; prasugrel 10mg Oral 1 tab once daily [Active]; ProAir HFA 90 mcg/actuation inhalation HFAA 2 puffs every 4 hours [Active]; Seroquel 400 mg Oral tab once daily [Active]; spironolactone 25 mg Oral tab 1 tab once daily [Active]; Tramadol-Acetaminophen Oral [Active]; Victoza 2-Mulugeta 0.6 mg/0.1 mL (18 mg/3 mL) subcutaneous pnij 0.2 mL once daily [Active]; - PMHx: 19:59 Diabetes - IDDM; Asthma; Bipolar disorder; CHF; Fibromyalgia; Hypertension; os Hypothyroidism; mitral valve prolapse; scoliosis; - PSHx: 19:59 section; os - Immunization history:: Adult Immunizations up to date. - Infectious Disease History:: Denies. - Social history:: Smoking status: unknown. ROS: 21:22 Constitutional: Negative for fever, chills, and weight loss, sb4 21:22 Abdomen/GI: Positive for abdominal pain, nausea, vomiting, and diarrhea, 21:22 All other systems are negative, Exam: 21:22 Constitutional: The patient appears alert, awake, restless, uncomfortable, sb4 21:27 Head/Face: Normocephalic, atraumatic. Eyes: Extra-ocular motions intact. Periorbital sb4 areas with no swelling, redness, or edema. ENT: Mucous membranes moist. Respiratory: No increased work of breathing, no retractions or nasal flaring. Abdomen/GI: Soft, non-tender, no distension. Skin: Warm, dry with normal turgor. Normal color with no rashes, no lesions, and no evidence of cellulitis. 21:27 Special observations: complaints out of proportion to exam, screaming, Vital Signs: 19:57 BP 184 / 76; Pulse 66; Resp 18; Temp 97.8; Pulse Ox 100% ; os 22:00 BP 121 / 77; Pulse 65; Resp 17; Temp 98(O); Pain 0/10; rg5 22:00 Pain Scale: Adult rg5 MDM: 19:51 Medical Screening Exam initiated sb4 10/12 00:13 Differential diagnosis: diverticulitis, gastritis, non-specific abd pain, pancreatitis, sb4 Peptic Ulcer Disease. Data reviewed: vital signs, nurses notes, EMS record, lab test result(s), radiologic studies, and as a result, I will discharge patient. Care significantly affected by the following chronic conditions: Diabetes, Hypertension, Congestive Heart Failure. 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 Special discussion: Based on the patient's Hx, exam, and Dx evaluation, there is no indication for emergent surgery or inpatient Tx. It is understood by the patient/guardian that if the Sx's persist or worsen they need to return immediately for re-evaluation. ED course: pain has improved, tolerating PO, patient is ready to go home. will safely discharge home at this time. 10/11 19:59 Order name: CBC with Diff; Complete Time: 20:18 sb4 10/11 19:59 Order name: CMP; Complete Time: 20:35 sb4 10/11 19:59 Order name: Lipase; Complete Time: 20:35 sb4 10/11 20:35 Order name: CT Abd/Pelvis - IV Contrast Only; Complete Time: 21:47 sb4 10/11 19:59 Order name: IV Saline Lock; Complete Time: 20:15 sb4 10/11 19:59 Order name: Labs collected and sent; Complete Time: 20:15 sb4 10/11 21:49 Order name: PO challenge; Complete Time: 22:07 sb4 Administered Medications: 10/11 20:15 Drug: Droperidol IVP 2.5 mg IVP once Route: IVP; Site: left antecubital; rg5 21:23 Follow up: Response: No adverse reaction rg5 22:02 Drug: Famotidine IVP 20 mg IVP once; dilute with 10 mL 0.9% NaCl; give over 2 minutes rg5 Route: IVP; Site: left antecubital; 22:26 Follow up: Response: No adverse reaction rg5 22:26 Drug: Droperidol IVP 1.25 mg IVP once Route: IVP; Site: left antecubital; rg5 22:44 Follow up: Response: No adverse reaction rg5 Disposition Summary: 10/11/24 22:25 Discharge Ordered Notes: Location: Home sb4 Problem: new sb4 Symptoms: have improved sb4 Condition: Stable sb4 Diagnosis - Abdominal pain, Generalized sb4 - Acute gastritis sb4 Followup: sb4 - With: Wilfrido Bess MD - When: As needed - Reason: Recheck today's complaints, Re-evaluation by your physician Discharge Instructions: - Discharge Summary Sheet sb4 - Gastritis, Adult, [id number] sb4 - Abdominal Pain, Adult, [id number] sb4 Forms: - Patient Portal Instructions sb4 - Leadership Thank You Letter sb4 Prescriptions: - Pepcid 20 mg Oral Tablet - take 1 tablet ORAL route every 12 hours for 5 days; 10 tablet; Refills: 0, sb4 Product Selection Permitted - dicyclomine 10 mg Oral capsule - take 1 capsule ORAL route 3 times per day PRN abdominal pain/cramping; 15 sb4 capsule; Refills: 0, Product Selection Permitted - ondansetron 8 mg Oral Tablet,disintegrating - take 1 tablet ORAL route every 8 hours PRN nausea/vomiting; 10 tablet; Refills: sb4 0, Product Selection Permitted Addendum: 10/14/2024 07:02 Co-signature as Attending Physician, Mango Reynoso MD I reviewed the patient's care r n provided by the Advanced Practice Provider and agree with the diagnosis and treatment plan. Signatures: Dispatcher [employer] EDMango Lovett MD MD rn Brown, Sophia, PA-C PAGeri sb4 Aramis Vanec, RN RN Shakir Villalpando, LILIAN RN rg5 Corrections: (The following items were deleted from the chart) 10/11 20:00 20:00 CBC+H.LAB.BRZ ordered. EDMS EDMS 20:00 20:00 COMPREHENSIVE METABOLIC PANEL+C.LAB.BRZ ordered. EDMS EDMS 20:00 20:00 LIPASE+C.LAB.BRZ ordered. EDMS EDMS 20:00 20:00 Urinalysis+U.LAB.BRZ ordered. EDMS EDMS
--- NOTE | 2024-10-11 22:26 | ER ---
Nurse's Notes [facility] Name: Kim Weldon Age: 59 yrs Sex: Female : 1965 Arrival Date: 10/11/2024 Time: 19:48 Bed 17 [facility] MD: Diagnosis: Abdominal pain, Generalized;Acute gastritis Presentation: 10/11 19:57 Chief complaint: Patient states: Patient c/o "bad pain", per patient. Patient states os she ate some hot sauce today and did not take her stomach medications. Coronavirus screen: Vaccine status: Patient reports receiving the 2nd dose of the covid vaccine. Client denies travel out of the [place] in the last 14 days. Ebola Screen: No symptoms or risks identified at this time. Initial Sepsis Screen: Does the patient meet any 2 criteria? No. Patient's initial sepsis screen is negative. Does the patient have a suspected source of infection? No. Patient's initial sepsis screen is negative. Initial Sepsis Screen: Does the patient meet any 2 criteria? No. Patient's initial sepsis screen is negative. Does the patient have a suspected source of infection? No. Patient's initial sepsis screen is negative. Risk Assessment: Do you want to hurt yourself or someone else? Patient reports no desire to harm self or others. Onset of symptoms was October 11, 2024. 19:57 Method Of Arrival: EMS: [facility] os 19:57 Acuity: ALFRED 3 os Triage Assessment: 19:59 General: Appears distressed, uncomfortable, Behavior is restless. Pain: Complains of os pain in abdomen Pain currently is 9 out of 10 on a pain scale. Quality of pain is described as burning. GI: Reports upper abdominal pain, nausea, vomiting. Historical: - Allergies: 19:59 PENICILLINS; os - Home Meds: 19:59 Advair Diskus Inhl 1 puff 2 times per day [Active]; aspirin 81 mg Oral TbEC 1 tab once os daily [Active]; Cymbalta 60 mg Oral cpDR 1 cap once daily [Active]; ferrralet [Active]; gabapentin 100 mg Oral cap 3 times per day [Active]; Jardiance 10 mg Oral tab 1 tab once daily [Active]; levothyroxine 25 mcg tab 1 tab once daily [Active]; metformin 1 Oral tab [Active]; metoprolol tartrate 25 mg Oral tab 0.5 tabs once daily [Active]; pantoprazole 40 mg Oral TbEC 1 tab once daily [Active]; prasugrel 10mg Oral 1 tab once daily [Active]; ProAir HFA 90 mcg/actuation inhalation HFAA 2 puffs every 4 hours [Active]; Seroquel 400 mg Oral tab once daily [Active]; spironolactone 25 mg Oral tab 1 tab once daily [Active]; Tramadol-Acetaminophen Oral [Active]; Victoza 2-Mulugeta 0.6 mg/0.1 mL (18 mg/3 mL) subcutaneous pnij 0.2 mL once daily [Active]; - PMHx: 19:59 Diabetes - IDDM; Asthma; Bipolar disorder; CHF; Fibromyalgia; Hypertension; os Hypothyroidism; mitral valve prolapse; scoliosis; - PSHx: 19:59 section; os - Immunization history:: Adult Immunizations up to date. - Infectious Disease History:: Denies. - Social history:: Smoking status: unknown. Screenin:04 [facility] ED Fall Risk Assessment (Adult) History of falling in the last 3 months, os including since admission No falls in past 3 months (0 pts) Confusion or Disorientation No (0 pts) Intoxicated or Sedated No (0 pts) Impaired Gait No (0 pts) Mobility Assist Device Used No (0 pt) Altered Elimination No (0 pt) Score/Fall Risk Level 0 - 2 = Low Risk Oriented to surroundings, Maintained a safe environment, Educated pt \\T\\ family on fall prevention, incl call for assistance when getting out of bed. Abuse screen: Denies threats or abuse. Nutritional screening: No deficits noted. Tuberculosis screening: No symptoms or risk factors identified. Assessment: 22:00 General: Appears in no apparent distress. comfortable, Behavior is calm, cooperative, rg5 appropriate for age. 22:00 Pain: Complains of pain in abdomen Quality of pain is described as aching, crampy. rg5 Neuro: Level of Consciousness is awake, alert, Oriented to person, place, time. Cardiovascular: Patient's skin is warm and dry. Respiratory: Airway is patent Trachea midline Respiratory effort is even, unlabored, Respiratory pattern is regular, symmetrical. GI: Bowel sounds present in left lower quadrant Abd is soft and non tender Reports upper abdominal pain, nausea, vomiting. : No signs and/or symptoms were reported regarding the genitourinary system. EENT: No deficits noted. Derm: Skin is intact, Skin is dry, Skin is normal, Skin temperature is warm. Musculoskeletal: Circulation, motion, and sensation intact. Range of motion:. Vital Signs: 19:57 BP 184 / 76; Pulse 66; Resp 18; Temp 97.8; Pulse Ox 100% ; os 22:00 BP 121 / 77; Pulse 65; Resp 17; Temp 98(O); Pain 0/10; rg5 22:00 Pain Scale: Adult rg5 ED Course: 19:49 Patient arrived in ED. am2 19:51 [facility]vel[facility] sb4 19:51 Mango Reynoso MD is Attending Physician. sb4 19:57 Aramis Vance, LILIAN is Primary Nurse. os 19:59 Triage completed. os 21:29 CT Abd/Pelvis - IV Contrast Only In Process Unspecified. EDMS 22:00 Arm band placed on right wrist. rg5 22:00 Maintain EMS IV. Dressing intact. Gauge \\T\\ site: 22 LAC. Flushed with 10 mL NS. Patient rg5 maintains SpO2 saturation greater than 95% on room air. 22:04 Patient has correct armband on for positive identification. Placed in gown. Bed in low os position. Call light in reach. Side rails up X2. Provided Education on: . 22:04 No provider procedures requiring assistance completed. os 22:24 Wilfrido Bess MD is Referral Physician. sb4 22:43 IV discontinued, bleeding controlled, No redness/swelling at site. Pressure dressing rg5 applied. Administered Medications: 20:15 Drug: Droperidol IVP 2.5 mg IVP once Route: IVP; Site: left antecubital; rg5 21:23 Follow up: Response: No adverse reaction rg5 22:02 Drug: Famotidine IVP 20 mg IVP once; dilute with 10 mL 0.9% NaCl; give over 2 minutes rg5 Route: IVP; Site: left antecubital; 22:26 Follow up: Response: No adverse reaction rg5 22:26 Drug: Droperidol IVP 1.25 mg IVP once Route: IVP; Site: left antecubital; rg5 22:44 Follow up: Response: No adverse reaction rg5 Medication: 22:00 VIS not applicable for this client. rg5 Outcome: 22:25 Discharge ordered by . sb4 22:43 Discharged to home via wheelchair, rg5 22:43 Condition: stable 22:43 Discharge instructions given to patient, Instructed on discharge instructions, follow up and referral plans. Demonstrated understanding of instructions, follow-up care, medications, Prescriptions given X 3, 22:44 Patient left the ED. rg5 Signatures: Dispatcher [employer] EDCO Gloria Covington Sophia, PAGeri PA-C [email or web address] Aramis Vance, RN RN Shakir Villalpando, RN RN rg5
[2024-10-11 23:31] VITALS: O2SAT 100
[2024-10-11 23:33] VITALS: BP 121/77; TEMP 98
== END 2024-10-11 22:44 | disposition home or self-care (01) ==
LOC: ER 19:48
DX: K29.00 Acute gastritis without bleeding (principal); E11.9 Type 2 diabetes mellitus without complications; I10 Essential (primary) hypertension; I50.9 Heart failure, unspecified; E03.9 Hypothyroidism, unspecified; Z79.82 Long term (current) use of aspirin
CPT/HCPCS: 85025; 36415; 83690; 80053; 74177; 96375; 96374; 99284; Q9967; J1790 ×2